=== PATIENT | female | born 1945 | race Caucasian/White ===

== ENCOUNTER 2016-05-11 14:57 | Emergency (ER) | payer OTHER ==
[~2016-05-11] VITALS: Ht 160 cm; Wt 79.0 kg
[~2016-05-11 14:57] MED LIST: IBUP1CAP9 PO
[2016-05-11 15:04] VITALS: TEMP 36.9; Ht 160 cm; Wt 79.0 kg
--- NOTE | 2016-05-11 16:40 | EMERGENCY ROOM VISIT NOTE ---
History Report prepared by Devang: Eddie Jacobs Under the Supervision of: Dr. Eddie Jain M.D. First contact with patient: 16:29 Chief Complaint: FLANK PAIN Stated Complaint: FLANK PAIN History of Present Illness The patient is a 70 year old female who presents to the Emergency Room with complaints of persistent right flank pain beginning 3 days ago. She notes she was diagnosed with polymyalgia 3 months ago, and that the most affected areas are her shoulders, hands, hips, and quadriceps. She states her pain is worse with movement. The patient denies any trauma or injury, fever or chills, numbness or weakness, or any urinary symptoms. She does not have a history of kidney stones. The patient reports a past history of bladder and breast cancer. She has taken 15 mg of prednisone for her pain. She is not on any blood thinners. She notes the only medication she takes other than prednisone are per requirement for breast cancer protocol. No Fall or trauma. No chest pain or shortness of breath. Source of History: patient Onset: 3 days ago Position: other (right hip) Quality: other (hip pain) Timing: other (persistent) Modifying Factors (Worsening): movement Associated Symptoms: No chills, No fevers, No numbness, No urinary symptoms , No weakness Review of Systems See HPI for pertinent positives & negatives. A total of 10 systems reviewed and were otherwise negative. Past Medical & Surgical Medical Problems: (1) Acute bronchitis (2) Asthma (3) Chest discomfort (4) Chronic osteoarthritis (5) Diab Gosia Wo Compl, Type Ii Or Unspec Type, Not Uncntrld (6) Diaphragmatic Hernia (7) Diverticulosis Colon (W/O Ment Of Hemorrhage) (8) Emphysema Nec (9) Loose body of right knee (10) Mal Khoi Bladder Neck (11) Mal Khoi Breast Up-Outer (12) Obesity, Nos (13) Pulmonary emphysema (14) Right hand pain (15) Right knee pain (16) Tachycardia Nos Old medical records were reviewed. Nurse's notes were reviewed and I agree with. Family History Patient reports no known family medical history. Social History Smoking Status: Current Every Day Smoker Alcohol Use: none Drug Use: none Marital Status: single Occupation Status: employed Current/Historical Medications Scheduled Anastrozole (Arimidex), 1 MG PO DAILY Metformin Hcl (Glucophage), 850 MG PO BID Prednisone (Prednisone), 5 MG PO DAILY Prednisone (Prednisone), 10 MG PO DAILY Allergies Coded Allergies: Paclitaxel (Verified Allergy, Severe, "taxanes" cause diff breathing, rash , elevated bp, 05/11/16) Polyoxyethylated [place] Oil (Verified Allergy, Severe, "taxanes" cause diff breathing, rash, elevated bp, 05/11/16) Sulfa Drugs (Verified Allergy, Mild, 05/11/16) Celecoxib (Verified Allergy, Unknown, HIVES, 05/11/16) Nitrofurantoin (Verified Allergy, Unknown, CHEST PAIN AND SOB, 05/11/16) Phenazopyridine (Verified Allergy, Unknown, UNKNOWN, 05/11/16) ON PREOP ORDER Opioid Analgesics (Verified Adverse Reaction, Unknown, CHILLS, NAUSEA, 04/15) Uncoded Allergies: CONTRAST MEDIA (Allergy, Mild, HIVES/ITCHING, 06/03/14) Physical Exam Vital Signs Date Time Temp Pulse Resp B/P Pulse Ox O2 Delivery O2 Flow Rate FiO2 05/11/16 17:15 104 18 122/65 94 Room Air 05/11/16 15:04 36.9 114 18 133/74 92 Room Air Physical Exam General: Well developed well nourished in no acute distress, breathing comfortably on room air. Normal speech. Non-ill appearing, older female. HEENT: Normal cephalic atraumatic. Pupils are equal round and reactive to light. Extraocular movements are intact. Oropharynx is pink with moist mucous membranes. No swelling of the mouth lips or tongue. Neck: Supple with a midline trachea. No meningeal signs or stiffness, no JVD or bruits. No Stridor. Chest: Clear to auscultation bilaterally. No wheezes or rhonchi. No increased work of breathing. Heart: regular rate and rhythm. Abdomen: Soft nontender, nondistended without rebound guarding or rigidity. Extremities: No cyanosis clubbing or edema. No calf tenderness or assymetry Spine/Back. Non tender to palpation. No CVA tenderness Skin: Good turgor without rashes. Neurologic exam: Cranial nerves two through 12 are intact. Motor and sensation are intact and symmetrical throughout. Medical Decision & Procedures ER Provider Diagnostic Interpretation: CT results as stated below per my review and radiologist interpretation: CT SCAN OF THE ABDOMEN AND PELVIS WITHOUT CONTRAST FINDINGS: Lower chest: The heart is normal in size and configuration, without pericardial effusion. The lung bases and pleural spaces are clear. Liver: The unenhanced liver is normal in size, contour, and attenuation. There is mild intrahepatic biliary ductal dilatation.. Gallbladder: Not visualized Spleen: Normal in size and attenuation. Pancreas: Unremarkable. Adrenal glands: Unremarkable. Kidneys: No renal, ureteral, or bladder calculi are visualized. Bowel: There are no transition zones indicate bowel obstruction. There is moderate diverticulosis. No acute peridiverticular inflammatory changes are visualized. There is small fat-containing umbilical hernia. The appendix is reportedly surgically absent Peritoneum: There is no intraperitoneal free air or abdominal ascites. Vasculature: The abdominal aorta is normal in course and caliber. Adenopathy: None. Pelvic viscera: There is mild pelvic floor relaxation. No pathologic adnexal masses are visualized. Skeletal structures: No destructive osseous lesions are seen. IMPRESSION: 1. No renal, ureteral, or bladder calculi identified 2. No evidence of bowel obstruction. No evidence of free air 3. Diverticulosis. No evidence of acute diverticulitis. 4. Surgically absent appendix and gallbladder Electronically signed by: Florentino Washington M.D. 05/11/2016 5:15 PM Dictated Date/Time: 05/11/2016 5:10 PM Laboratory Results 05/11/16 16:30 Red Blood Count 5.04, Mean Corpuscular Volume 92.1, Mean Corpuscular Hemoglobin 31.0, Mean Corpuscular Hemoglobin Concent 33.6, Mean Platelet Volume 9.4, Neutrophils (%) (Auto) 80.7, Lymphocytes (%) (Auto) 11.5, Monocytes (%) (Auto) 6.5, Eosinophils (%) (Auto) 0.5, Basophils (%) (Auto) 0.2, Neutrophils # (Auto) 12.46, Lymphocytes # (Auto) 1.78, Monocytes # (Auto) 1.01, Eosinophils # (Auto) 0.08, Basophils # (Auto) 0.03 05/11/16 16:30 Test 05/11/16 00:00 05/11/16 16:30 Urine Color YELLOW Urine Appearance CLEAR (CLEAR) Urine pH 5.5 (4.5-7.5) Urine Specific [place] 1.020 (1.000-1.030) Urine Protein NEG (NEG) Urine Glucose (UA) NEG (NEG) Urine Ketones TRACE (NEG) Urine Occult Blood NEG (NEG) Urine Nitrite NEG (NEG) Urine Bilirubin NEG (NEG) Urine Urobilinogen NEG (NEG) Urine Leukocyte Esterase NEG (NEG) White Blood Count 15.46 K/uL (4.8-10.8) Red Blood Count 5.04 M/uL (4.2-5.4) Hemoglobin 15.6 g/dL (12.0-16.0) Hematocrit 46.4 % (37-47) Mean Corpuscular Volume 92.1 fL (80-100) Mean Corpuscular Hemoglobin 31.0 pg (25-34) Mean Corpuscular Hemoglobin Concent 33.6 g/dl (32-36) Platelet Count 361 K/uL (130-400) Mean Platelet Volume 9.4 fL (7.4-10.4) Neutrophils (%) (Auto) 80.7 % Lymphocytes (%) (Auto) 11.5 % Monocytes (%) (Auto) 6.5 % Eosinophils (%) (Auto) 0.5 % Basophils (%) (Auto) 0.2 % Neutrophils # (Auto) 12.46 K/uL (1.4-6.5) Lymphocytes # (Auto) 1.78 K/uL (1.2-3.4) Monocytes # (Auto) 1.01 K/uL (0.11-0.59) Eosinophils # (Auto) 0.08 K/uL (0-0.5) Basophils # (Auto) 0.03 K/uL (0-0.2) RDW Standard Deviation 48.7 fL (36.4-46.3) RDW Coefficient of Variation 14.4 % (11.5-14.5) Immature Granulocyte % (Auto) 0.6 % Immature Granulocyte # (Auto) 0.10 K/uL (0.00-0.02) Anion Gap 11.0 mmol/L (3-11) Est Creatinine Clear Calc Drug Dose 63.2 ml/min Estimated GFR () 85.4 Estimated GFR (Non- 73.7 BUN/Creatinine Ratio 28.7 (10-20) Calcium Level 9.6 mg/dl (8.5-10.1) Total Bilirubin 0.4 mg/dl (0.2-1) Direct Bilirubin 0.1 mg/dl (0-0.2) Aspartate Amino Transf (AST/SGOT) 9 U/L (15-37) Alanine Aminotransferase (ALT/SGPT) 30 U/L (12-78) Alkaline Phosphatase 74 U/L (45-117) Total Protein 7.5 gm/dl (6.4-8.2) Albumin 3.7 gm/dl (3.4-5.0) Lipase 123 U/L (73-393) Laboratory studies as stated above per my review. ED Course 1630: Past medical records reviewed. The patient was evaluated in room B10, and a complete history and physical examination were performed. 174: Upon reevaluation, the patient is hemodynamically stable. I discussed the results and treatment plan with the patient. She verbalized agreement of the treatment plan. The patient was discharged home. Medical Decision Differentials include PMR, musculoskeletal pain, kidney stones, aneurism, hematoma, and electrolyte or metabolic abnormality. The patient comes in as described above she has pain in her lower back towards the right along the bony pelvic rim. She has a normal neurologic exam. She has had no fever or chills. She looks well on exam she was recently diagnosed with PMR. IV access was established and blood work was obtained. She has nothing to suggest infection or sepsis. She's no significant electrolyte or metabolic abnormalities. She has nothing to suggest UTI. I did a CAT scan without contrast and she has no acute findings seen. There is no bony abnormalities or obstructive uropathy. This seems he musculoskeletal. There is no evidence suggest aneurysm. I think that she should continue her prednisone and may be related to PMR. She can use Tylenol in the over-the- counter dosages but do not exceed 650 mg every 6 hours and do not take with other medications and contain Tylenol/acetaminophen. She was happy with the plan and will be discharged home. I encouraged to follow-up with her regular doctor in 1-2 days for recheck. Impression Primary Impression: Right flank pain Additional Impression: PMR (polymyalgia rheumatica) Scribe Attestation The scribe's documentation has been prepared under my direction and personally reviewed by me in its entirety. I confirm that the note above accurately reflects all work, treatment, procedures, and medical decision making performed by me. Departure Information Dispostion Home / Self-Care Referrals Chandan Bro M.D. (PCP) Patient Instructions My [facility] Additional Instructions Rest REturn if: worsening of symptoms, increasing pain, fever, bowel or bladder problems, any new problems or concerns May use tyelenol (Acetaminophen) a maximum of 650 mg every 6 hours as needed DO NOT TAKE WITH ANY OTHER MEDICATIONS THAT HAVE ACETAMINOPHERN(TYLENOL) IN IT fOLLOW-UP TIH YOUR DOCOTR ON sunday FOR RECHECK. Return to the ER over the weekend if symnptoms worsen Problem Qualifiers
[2016-05-11 16:51] LABS: BASO % 0.2 %; BASO ABS # 0.03 K/uL (0-0.2); COMPLETE YES; EOS % 0.5 %; HEMATOCRIT 46.4 % (37-47); IG% 0.6 %; LYMPH % 11.5 %; LYMPH ABS # 1.78 K/uL (1.2-3.4); MEAN CELL VOLUME 92.1 fL (80-100); MEAN CORPUSCULAR HGB CONC 33.6 g/dl (32-36); MEAN PLATELET VOLUME 9.4 fL (7.4-10.4); MONO % 6.5 %; NEUT % 80.7 %; PLATELET COUNT 361 K/uL (130-400); RED BLOOD COUNT 5.04 M/uL (4.2-5.4); WHITE BLOOD COUNT 15.46 K/uL (4.8-10.8)
[2016-05-11 17:03] LABS: URINE APPEARANCE CLEAR (CLEAR); URINE BILIRUBIN NEG (NEG); URINE COLOR YELLOW; URINE NITRITE NEG (NEG); URINE PH 5.5 (4.5-7.5); UROBILINOGEN NEG (NEG)
[2016-05-11 17:06] LABS: BUN/CREATININE RATIO 28.7 (10-20); CALCIUM 9.6 mg/dl (8.5-10.1); CREATININE 0.8 mg/dl (0.60-1.20); POTASSIUM 4.6 mmol/L (3.5-5.1)
[2016-05-11 17:09] LABS: MANUAL MICROSCOPIC REQUIRED? NO; REVIEW REQ? NO
[2016-05-11 17:15] VITALS: BP 122/65; PULSE 104; O2SAT 94
--- NOTE | 2016-05-11 17:17 | DIAGNOSTIC IMAGING REPORT ---
CT SCAN OF THE ABDOMEN AND PELVIS WITHOUT CONTRAST CLINICAL HISTORY: Flank pain. Suspected calculus. COMPARISON STUDY: 06/09/2014 TECHNIQUE: CT scan of the abdomen and pelvis was performed from the lung bases to the proximal femurs. Images are reviewed in the axial, sagittal, and coronal planes. IV contrast was not administered for this examination. CT DOSE: 1051.92 mGy.cm FINDINGS: Lower chest: The heart is normal in size and configuration, without pericardial effusion. The lung bases and pleural spaces are clear. Liver: The unenhanced liver is normal in size, contour, and attenuation. There is mild intrahepatic biliary ductal dilatation.. Gallbladder: Not visualized Spleen: Normal in size and attenuation. Pancreas: Unremarkable. Adrenal glands: Unremarkable. Kidneys: No renal, ureteral, or bladder calculi are visualized. Bowel: There are no transition zones indicate bowel obstruction. There is moderate diverticulosis. No acute peridiverticular inflammatory changes are visualized. There is small fat-containing umbilical hernia. The appendix is reportedly surgically absent Peritoneum: There is no intraperitoneal free air or abdominal ascites. Vasculature: The abdominal aorta is normal in course and caliber. Adenopathy: None. Pelvic viscera: There is mild pelvic floor relaxation. No pathologic adnexal masses are visualized. Skeletal structures: No destructive osseous lesions are seen. IMPRESSION: 1. No renal, ureteral, or bladder calculi identified 2. No evidence of bowel obstruction. No evidence of free air 3. Diverticulosis. No evidence of acute diverticulitis. 4. Surgically absent appendix and gallbladder Electronically signed by: Florentino Washington M.D. 05/11/2016 5:15 PM Dictated Date/Time: 05/11/2016 5:10 PM
[2016-05-11] MEDS ORDERED: PRED10TA PO (17:45)
[2016-08-29] MEDS ORDERED: ANAS1TAB19 PO (10:20)
[2016-08-29] MEDS ORDERED: METF850T PO (13:35)
[2016-08-29] MEDS ORDERED: PRED-301 PO (17:45)
== END 2016-05-11 17:50 | disposition home or self-care (01) ==
LOC: C.EDB 14:57
DX: R10.9 Unspecified abdominal pain (principal); M35.3 Polymyalgia rheumatica; Z85.3 Personal history of malignant neoplasm of breast; Z85.51 Personal history of malignant neoplasm of bladder; J45.909 Unspecified asthma, uncomplicated; E11.9 Type 2 diabetes mellitus without complications; E66.9 Obesity, unspecified; F17.200 Nicotine dependence, unspecified, uncomplicated; Z88.2 Allergy status to sulfonamides

== ENCOUNTER → 2016-05-25 | Outpatient (CLI) | payer OTHER ==
[~2016-05-25] MED LIST changes: +ANAS1TAB19 PO; +IBUP-103 PO; -IBUP1CAP9 PO; +METF850T PO; +PRD/1 PO; +PRED-301 PO; +PRED10TA PO; +PRLSR20 PO; +TRAM-10 PO
== END | disposition home or self-care (01) ==
LOC: C.LAB 13:35
PROVIDERS: ATTEND Internal Medicine
DX: M35.3 Polymyalgia rheumatica (principal)

== ENCOUNTER 2016-08-26 19:27 | Emergency (ER) | payer OTHER ==
[~2016-08-26] VITALS: Ht 160 cm; Wt 82.8 kg
[~2016-08-26 19:27] MED LIST changes: -ANAS1TAB19 PO; -IBUP-103 PO; -METF850T PO; -PRD/1 PO; -PRED-301 PO; -PRLSR20 PO; -TRAM-10 PO
[2016-08-26 19:34] VITALS: TEMP 36.7; Ht 160 cm; Wt 82.8 kg
--- NOTE | 2016-08-26 20:38 | EMERGENCY ROOM VISIT NOTE ---
History Report prepared by Devang: Hallie Moore Under the Supervision of: Dr. Zaki Alba M.D. 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 The patient rates her discomfort as a 7/10 in severity. She states that she tripped over the curb because the tip of her left toe hit the curb and it caused her to fall. She states that she fell into the grass, but she is unsure of exactly how she fell and what exactly hit the ground. However, the patient states that she did not hit her head or experience LOC. The patient states that she is currently experiencing midsternal chest pain that radiates into her left lateral chest and is worse with certain movements and deep breathing. She states that the pain feels similar to when she broke her sternum in the past, but it does not feel quite as severe. She denies abdominal pain along with any other injuries. The patient is not on any blood thinners. 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 A total of 10 systems reviewed and were otherwise negative. Past Medical & Surgical Medical Problems: (1) Acute bronchitis (2) Asthma (3) Chest discomfort (4) Chronic osteoarthritis (5) Diab Gosia Wo Compl, Type Ii Or Unspec Type, Not Uncntrld (6) Diaphragmatic Hernia (7) Diverticulosis Colon (W/O Ment Of Hemorrhage) (8) Emphysema Nec (9) Loose body of right knee (10) Mal Khoi Bladder Neck (11) Mal Khoi Breast Up-Outer (12) Obesity, Nos (13) Pulmonary emphysema (14) Right hand pain (15) Right knee pain (16) Tachycardia Nos Family History Patient reports no known family medical history. Social History Smoking Status: Former Smoker Alcohol Use: none Drug Use: none Marital Status: single Occupation Status: employed Current/Historical Medications Scheduled Anastrozole (Arimidex), 1 MG PO DAILY Metformin Hcl (Glucophage), 850 MG PO BID Prednisone (Prednisone), 5 MG PO DAILY Prednisone (Prednisone), 10 MG PO DAILY Allergies Coded Allergies: Paclitaxel (Verified Allergy, Severe, "taxanes" cause diff breathing, rash , elevated bp, 05/11/16) Polyoxyethylated [place] Oil (Verified Allergy, Severe, "taxanes" cause diff breathing, rash, elevated bp, 05/11/16) Sulfa Drugs (Verified Allergy, Mild, 05/11/16) Celecoxib (Verified Allergy, Unknown, HIVES, 05/11/16) Nitrofurantoin (Verified Allergy, Unknown, CHEST PAIN AND SOB, 05/11/16) Phenazopyridine (Verified Allergy, Unknown, UNKNOWN, 05/11/16) ON PREOP ORDER Opioid Analgesics (Verified Adverse Reaction, Unknown, CHILLS, NAUSEA, 04/15) Uncoded Allergies: CONTRAST MEDIA (Allergy, Mild, HIVES/ITCHING, 06/03/14) Physical Exam Vital Signs Date Time Temp Pulse Resp B/P Pulse Ox O2 Delivery O2 Flow Rate FiO2 08/26/16 21:11 84 16 142/80 97 08/26/16 19:34 36.7 105 20 145/73 94 Room Air Physical Exam GENERAL: Patient is in no acute distress. HEENT: No acute trauma, normocephalic atraumatic, mucous membranes moist, no nasal congestion, no scleral icterus. NECK: No stridor, no adenopathy, no meningismus, trachea is midline. LUNGS: Clear to auscultation bilaterally, no wheeze, no rhonchi, breath sounds equal. HEART: Mildly tachycardic with regular rate and rhythm, no murmurs. CHEST: Tender to the left inferior sternum just slightly off to the left, no crepitus, no contusion, no pain with lateral rib compression. ABDOMEN: Soft, nontender, bowel sounds positive, no hernias, no peritonitis. EXTREMITIES: No cyanosis or edema, full range of motion of all the joints without pain or difficulty, no signs for acute trauma. NEUROLOGIC: Oriented x 3, no acute motor or sensory deficits, no focal weakness. SKIN: No rash, no jaundice, no diaphoresis. Medical Decision & Procedures ER Provider Diagnostic Interpretation: X-ray results as stated below per interpretation by me and the radiologist: CHEST 2 VIEWS ROUTINE FINDINGS: Stable calcified granuloma within the left upper lobe. Subclavian Port-A-Cath terminates in the SVC. No evidence for pulmonary edema. The heart is normal in size. Mitral annulus calcifications. Linear density within the lingula favors subsegmental atelectasis or scarring. IMPRESSION: No acute process. Linear density within the lingula favors subsegmental atelectasis or scarring. Electronically signed by: Sabino Chua M.D. 08/26/2016 8:50 PM Dictated Date/Time: 08/26/2016 8:48 PM STERNUM MIN 2 VIEWS FINDINGS: No fractures within the sternum. Presternal soft tissues are unremarkable. No suspicious lytic or blastic osseous lesions within the sternum. IMPRESSION: No fractures within the sternum. Electronically signed by: Sabino Chua M.D. 08/26/2016 8:44 PM Dictated Date/Time: 08/26/2016 8:42 PM ECG Indication: chest pain Rate (beats per minute): 100 Rhythm: sinus rhythm Findings: PAC, RBBB (incomplete), no acute ischemic change Comparison ECG Date: 12/20/2014 Change: no significant change ED Course 1944: The patient was evaluated in room B12. A complete history and physical exam was performed. 2109: Reevaluated the patient. Discussed results and discharge instructions: she verbalized understanding and agreement. The patient is ready for discharge. Medical Decision Differential diagnoses considered include sternal contusion or fracture, rib contusion or fracture, muscle strain, pneumothorax, dysrhythmia. The patient presents after falling. She has some lower left sternal pain. She denied any injury to her head or neck. No wrist or lower extremity pain. The pain was not present when she was still but noted with any movement. She did not want any pain medication while in the emergency room. Films of the chest and sternum were done, no fractures to the sternum or the ribs were noted. There is no pneumothorax or pulmonary contusion. On exam, the patient had no abdominal tenderness. Patient has contused her chest wall, she was reassured. She is being discharged home. Impression Primary Impression: Chest wall contusion Additional Impression: Fall Scribe Attestation The scribe's documentation has been prepared under my direction and personally reviewed by me in its entirety. I confirm that the note above accurately reflects all work, treatment, procedures, and medical decision making performed by me. Departure Information Dispostion Home / Self-Care Referrals Chandan Bro M.D. (PCP) Forms HOME CARE DOCUMENTATION FORM, IMPORTANT VISIT INFORMATION Patient Instructions My [facility] Additional Instructions ice to the sore areas rest continue pain meds as before at home may add tylenol for pain no fractures today by film Problem Qualifiers Primary Impression: Chest wall contusion Encounter type: initial encounter Laterality: left Qualified Codes: S20.212A - Contusion of left front wall of thorax, initial encounter Additional Impression: Fall Encounter type: initial encounter Qualified Codes: W19.XXXA - Unspecified fall, initial encounter
--- NOTE | 2016-08-26 20:45 | DIAGNOSTIC IMAGING REPORT ---
STERNUM MIN 2 VIEWS CLINICAL HISTORY: fall, sternal pain COMPARISON STUDY: PET CT 11/18/2012. FINDINGS: No fractures within the sternum. Presternal soft tissues are unremarkable. No suspicious lytic or blastic osseous lesions within the sternum. IMPRESSION: No fractures within the sternum. Electronically signed by: Sabino Chua M.D. 08/26/2016 8:44 PM Dictated Date/Time: 08/26/2016 8:42 PM
--- NOTE | 2016-08-26 20:52 | DIAGNOSTIC IMAGING REPORT ---
CHEST 2 VIEWS ROUTINE HISTORY: fall, left anterior chest pain COMPARISON: Chest 12/20/2014. FINDINGS: Stable calcified granuloma within the left upper lobe. Subclavian Port-A-Cath terminates in the SVC. No evidence for pulmonary edema. The heart is normal in size. Mitral annulus calcifications. Linear density within the lingula favors subsegmental atelectasis or scarring. IMPRESSION: No acute process. Linear density within the lingula favors subsegmental atelectasis or scarring. Electronically signed by: Sabino Chua M.D. 08/26/2016 8:50 PM Dictated Date/Time: 08/26/2016 8:48 PM
[2016-08-26 21:11] VITALS: BP 142/80; PULSE 84; O2SAT 97
[2016-08-29] MEDS ORDERED: ANAS1TAB19 PO (10:20)
[2016-08-29] MEDS ORDERED: METF850T PO (13:35)
[2016-08-29] MEDS ORDERED: PRED-301 PO (17:45)
== END 2016-08-26 21:12 | disposition home or self-care (01) ==
LOC: C.EDB 19:28
DX: S20.212A Contusion of left front wall of thorax, initial encounter (principal); W19.XXXA Unspecified fall, initial encounter; J45.909 Unspecified asthma, uncomplicated; E11.9 Type 2 diabetes mellitus without complications; E66.9 Obesity, unspecified; Z87.891 Personal history of nicotine dependence

== ENCOUNTER 2016-08-29 20:29 | Emergency (ER) | payer OTHER ==
[~2016-08-29] VITALS: Ht 160 cm; Wt 83.8 kg
[~2016-08-29 20:29] MED LIST changes: +ANAS1TAB19 PO; +METF850T PO; +PRED-301 PO
[2016-08-29 20:35] VITALS: TEMP 36.8; Ht 160 cm; Wt 83.8 kg
[2016-08-29] MEDS ORDERED: PRD/1 PO (21:02)
[2016-08-29] MEDS ORDERED: PRLSR20 PO (21:02)
[2016-08-29] MEDS ORDERED: IBUP-103 PO (21:03)
--- NOTE | 2016-08-29 22:29 | DIAGNOSTIC IMAGING REPORT ---
CT OF THE CHEST WITHOUT IV CONTRAST CLINICAL HISTORY: Chest pain following fall. COMPARISON STUDY: Chest CT October 16, 2012 and chest radiograph August 26, 2016. CT DOSE: 294.11 mGy.cm TECHNIQUE: Axial images of the chest were obtained without IV contrast. Images were reviewed in the axial, sagittal, and coronal planes. IV contrast was not administered for this examination. FINDINGS: There is no pneumothorax or pleural effusion. There is a calcified granuloma within the left upper lobe. Lingular opacity suggest atelectasis. There is no pulmonary contusion. No acute thoracic spine fracture is identified. A left sided [id number] is in place. There are acute to subacute nondisplaced fractures of the anterior left third and fourth ribs. No displaced rib fractures are identified on this exam. IMPRESSION: Nondisplaced fractures of the anterior left third and fourth ribs which are likely acute to subacute. No pneumothorax. Electronically signed by: Sanchez Begum M.D. 08/29/2016 10:22 PM Dictated Date/Time: 08/29/2016 10:12 PM
[2016-08-29] MEDS ORDERED: TRAM-10 PO (23:07)
--- NOTE | 2016-08-29 23:08 | EMERGENCY ROOM VISIT NOTE ---
History Report prepared by Devang: Ha Castellanos Under the Supervision of: Dr. Vi Engle M.D. First contact with patient: 21:41 Chief Complaint: CHEST PAIN Stated Complaint: CHEST PAIN History of Present Illness The patient is a 70 year old female who presents to the Emergency Room with complaints of constant left chest pain for the past few days. The patient states that she fell the other day, and she fell with her right hand across her chest in a fist, and she landed on it. The patient states that the pain has been radiating around from just the point of impact. She additionally states that she is having some shortness of breath secondary to the pain in her chest. The patient states that she is a former smoker, and she has a history of breast and bladder cancer. Source of History: patient Onset: few days ago Position: chest (left) Timing: constant Modifying Factors (Worsening): breathing Associated Symptoms: + SOB Review of Systems See HPI for pertinent positives & negatives. A total of 10 systems reviewed and were otherwise negative. Past Medical & Surgical Medical Problems: (1) Acute bronchitis (2) Asthma (3) Chest discomfort (4) Chronic osteoarthritis (5) Diab Gosia Wo Compl, Type Ii Or Unspec Type, Not Uncntrld (6) Diaphragmatic Hernia (7) Diverticulosis Colon (W/O Ment Of Hemorrhage) (8) Emphysema Nec (9) Loose body of right knee (10) Mal Khoi Bladder Neck (11) Mal Khoi Breast Up-Outer (12) Obesity, Nos (13) Pulmonary emphysema (14) Right hand pain (15) Right knee pain (16) Tachycardia Nos Family History Patient reports no known family medical history. Social History Smoking Status: Former Smoker Alcohol Use: none Drug Use: none Marital Status: single Occupation Status: employed Current/Historical Medications Scheduled Anastrozole (Arimidex), 1 MG PO DAILY Ibuprofen Tab (Advil), 600 MG PO BID Metformin Hcl (Glucophage), 850 MG PO BID Omeprazole (Prilosec), 20 MG PO DAILY Prednisone (Prednisone), 5 MG PO DAILY Prednisone (Prednisone), 4 MG PO DAILY Scheduled PRN Tramadol (Ultram), 1-2 TABS PO Q6 PRN for Pain Allergies Coded Allergies: Paclitaxel (Verified Allergy, Severe, "taxanes" cause diff breathing, rash , elevated bp, 05/11/16) Polyoxyethylated [place] Oil (Verified Allergy, Severe, "taxanes" cause diff breathing, rash, elevated bp, 05/11/16) Sulfa Drugs (Verified Allergy, Mild, 05/11/16) Celecoxib (Verified Allergy, Unknown, HIVES, 05/11/16) Nitrofurantoin (Verified Allergy, Unknown, CHEST PAIN AND SOB, 05/11/16) Phenazopyridine (Verified Allergy, Unknown, UNKNOWN, 05/11/16) ON PREOP ORDER Opioid Analgesics (Verified Adverse Reaction, Unknown, CHILLS, NAUSEA, 04/15) Uncoded Allergies: CONTRAST MEDIA (Allergy, Mild, HIVES/ITCHING, 06/03/14) Physical Exam Vital Signs Date Time Temp Pulse Resp B/P Pulse Ox O2 Delivery O2 Flow Rate FiO2 08/29/16 23:17 92 20 109/73 95 08/29/16 22:27 92 109/73 95 Room Air 08/29/16 20:48 105 08/29/16 20:35 36.8 111 20 183/87 96 Room Air Physical Exam Vital signs reviewed. General: Well-appearing female, in no significant distress. HEENT: No scleral icterus, PERRLA, neck supple. Atraumatic. Cardiovascular: Regular rate and rhythm, no extra sounds. Pulmonary: Clear to auscultation bilaterally, equal breath sounds bilaterally, normal work of breathing. Chest: Tenderness to palpation over the left anterior chest and left midaxillary line. Abdomen: Soft, nontender, nondistended, positive bowel sounds. Musculoskeletal: Atraumatic, no peripheral edema. Neurologic: Patient awake alert and oriented x 3, full strength in all 4 extremities. Cranial nerves 2 through 12 grossly intact. Skin: Warm, dry, no rash Medical Decision & Procedures ER Provider Diagnostic Interpretation: Radiology results as stated below per my review and radiologist interpretation: CT OF THE CHEST WITHOUT IV CONTRAST CLINICAL HISTORY: Chest pain following fall. COMPARISON STUDY: Chest CT October 16, 2012 and chest radiograph August 26, 2016. CT DOSE: 294.11 mGy.cm TECHNIQUE: Axial images of the chest were obtained without IV contrast. Images were reviewed in the axial, sagittal, and coronal planes. IV contrast was not administered for this examination. FINDINGS: There is no pneumothorax or pleural effusion. There is a calcified granuloma within the left upper lobe. Lingular opacity suggest atelectasis. There is no pulmonary contusion. No acute thoracic spine fracture is identified. A left sided [id number] is in place. There are acute to subacute nondisplaced fractures of the anterior left third and fourth ribs. No displaced rib fractures are identified on this exam. IMPRESSION: Nondisplaced fractures of the anterior left third and fourth ribs which are likely acute to subacute. No pneumothorax. Electronically signed by: Sanchez Begum M.D. 08/29/2016 10:22 PM Dictated Date/Time: 08/29/2016 10:12 PM Medications Administered Medications (Trade) Dose Ordered Sig/Mildred Route Start Time Stop Time Status Last Admin Dose Admin Tramadol HCl (Ultram Home Pack) 1 homepack UD ONCE PO 08/29/16 23:15 08/29/16 23:16 DC 08/29/16 23:15 1 HOMEPACK ECG Indication: chest pain Rate (beats per minute): 109 Rhythm: sinus tachycardia Findings: LBBB, no acute ischemic change, left axis deviation, no ectopy ED Course 214: Past medical records reviewed. The patient was evaluated in room A12. A complete history and physical examination was performed. 2235: I reevaluated the patient, and she was resting 2305: Upon reevaluation, the patient appeared to have improvement of her symptoms. I discussed findings with her. She verbalized agreement of the treatment plan. She was discharged home. 2315: Tramadol HCl 1 homepack PO Medical Decision Differentials include: bony contusion, muscular spasm, pneumothorax, pneumonia , rib fracture This pt was evaluated and appeared to be in no distress. PE is significant for tenderness along the left ribs. Records from previous were reviewed. A CT of the chest was performed and is significant for L rib fractures. Pt was advised of the findings. She has an incentive spirometer. She was given an ultram HP and Rx. Pt will f/u with her PCP this week and return to the ED for worsening of symptoms or any medical concerns. Impression Primary Impression: Left rib fracture Scribe Attestation The scribe's documentation has been prepared under my direction and personally reviewed by me in its entirety. I confirm that the note above accurately reflects all work, treatment, procedures, and medical decision making performed by me. Departure Information Dispostion Home / Self-Care Prescriptions Tramadol (Ultram) 50 Mg Tab 1-2 TABS PO Q6 Y for Pain, #20 TAB Prov: Vi Engle M.D. 08/29/16 Referrals Pro,Chandan Cassidy M.D. (PCP) Forms HOME CARE DOCUMENTATION FORM, IMPORTANT VISIT INFORMATION Patient Instructions My [facility] Additional Instructions Diagnosis: Left-sided rib fractures Ultram 1-2 tablets every 6 hours as needed for pain. Use your incentive spirometer several times every hour while awake for the next few days. Follow-up with your physician this week for reevaluation. Return to the ER for worsening of symptoms or any medical concerns.
[2016-08-29] MEDS ORDERED: TRAMADOL HCL 50 MG HOME PACK PO ONE (23:15)
[2016-08-29 23:17] VITALS: BP 109/73; PULSE 92; O2SAT 95
== END 2016-08-29 23:18 | disposition home or self-care (01) ==
LOC: C.EDB 20:30 → C.EDA 23:18
DX: S22.32XA Fracture of one rib, left side, initial encounter for closed fracture (principal); I44.7 Left bundle-branch block, unspecified; R06.02 Shortness of breath; E11.9 Type 2 diabetes mellitus without complications; J45.909 Unspecified asthma, uncomplicated; Z79.84 Long term (current) use of oral hypoglycemic drugs; Z79.899 Other long term (current) drug therapy; Z85.51 Personal history of malignant neoplasm of bladder; Z85.3 Personal history of malignant neoplasm of breast; Z87.09 Personal history of other diseases of the respiratory system; Z87.891 Personal history of nicotine dependence; W19.XXXA Unspecified fall, initial encounter

== ENCOUNTER → 2016-12-15 | Outpatient (CLI) | payer OTHER ==
[~2016-12-15] MED LIST changes: +IBUP-103 PO; +PRD/1 PO; -PRED10TA PO; +PRLSR20 PO; +TRAM-10 PO
[2016-12-15 16:35] LABS: HEMATOCRIT 44.7 % (37-47); MEAN CELL VOLUME 96.5 fL (80-100); MEAN CORPUSCULAR HGB CONC 33.1 g/dl (32-36); MEAN PLATELET VOLUME 10.3 fL (7.4-10.4); PLATELET COUNT 324 K/uL (130-400); RED BLOOD COUNT 4.63 M/uL (4.2-5.4); WHITE BLOOD COUNT 8.97 K/uL (4.8-10.8)
[2016-12-15 16:49] LABS: ALT/SGPT 22 U/L (12-78); AST/SGOT 13 U/L (15-37); BLOOD UREA NITROGEN 17 mg/dl (7-18); BUN/CREATININE RATIO 30.2 (10-20); CALCIUM 9.3 mg/dl (8.5-10.1); CARBON DIOXIDE 27 mmol/L (21-32); CHLORIDE 109 mmol/L (98-107); CREATININE 0.57 mg/dl (0.60-1.20); GLUCOSE 80 mg/dl (70-99); POTASSIUM 3.9 mmol/L (3.5-5.1); SODIUM 139 mmol/L (136-145)
[2016-12-15 16:52] LABS: ALKALINE PHOSPHATASE 50 U/L (45-117)
== END | disposition home or self-care (01) ==
LOC: C.LABBC 12:26
PROVIDERS: ATTEND Internal Medicine
DX: M35.3 Polymyalgia rheumatica (principal); R51 Headache

== ENCOUNTER → 2016-12-19 | Outpatient (CLI) | payer OTHER ==
--- NOTE | 2016-12-19 13:49 | DIAGNOSTIC IMAGING REPORT ---
CERVICAL SPINE 7 VIEWS CLINICAL HISTORY: Neck pain. Headache. FINDINGS: AP, lateral, bilateral oblique, flexion, and extension views of the cervical spine are obtained. No prior studies are for comparison at the time of dictation. The skeletal structures are osteopenic. There is no radiographic evidence of fracture or subluxation. The odontoid process and lateral masses appear intact on the open-mouth view. Vertebral body height and alignment are maintained. There is no evidence of bony subluxation on the flexion/extension views. The atlantodental articulation is maintained noting productive degenerative change. The spinolaminar line is preserved. There is only minimal degenerative disc space narrowing noted. The neural foramina appear widely patent on the oblique views. Minimal facet arthropathy is observed. The spinous processes are intact. The prevertebral soft tissues are within normal limits. A calcific granuloma is seen in the left upper lobe. The partially imaged upper lobe lung parenchyma is otherwise clear. A central venous infusion port catheter is noted and there is atherosclerotic calcification of the thoracic aorta. The patient is edentulous. IMPRESSION: 1. No acute bony abnormality is seen involving the cervical spine. 2. Minimal spondylotic change as above. 3. No subluxation is seen on the flexion/extension views. Dictated: 12/19/2016 12:52 PM Transcribed: 12/19/2016 1:49 PM Mathew Electronically signed by: Zaki Brian M.D. 12/19/2016 1:59 PM Dictated Date/Time: 12/19/2016 12:52 PM
== END | disposition home or self-care (01) ==
LOC: C.RAD 12:20
PROVIDERS: ATTEND Internal Medicine
DX: M50.30 Other cervical disc degeneration, unspecified cervical region (principal); R51 Headache; L57.0 Actinic keratosis

== ENCOUNTER → 2016-12-19 | Outpatient (CLI) | payer OTHER | END | disposition home or self-care (01) | LOC: C.PATHSPEC 17:30 | PROVIDERS: ATTEND Plastic Surgery | DX: L57.0 Actinic keratosis (principal) ==

== ENCOUNTER → 2017-02-15 | Outpatient (CLI) | payer OTHER ==
--- NOTE | 2017-02-15 14:36 | MAMMOGRAPHY REPORT ---
BILATERAL DIGITAL DIAGNOSTIC MAMMOGRAM TOMOSYNTHESIS WITH CAD: 02/15/2017 CLINICAL HISTORY: History of right breast cancer status post lumpectomy, who presents for routine [facility] mammography. She denies any current complaints. TECHNIQUE: Breast tomosynthesis in addition to standard 2D mammography was performed. Current study was also evaluated with a Computer Aided Detection (CAD) system. Bilateral CC and MLO 2-D and tomosy nthesis images and spot magnification right cc and ML views were obtained. COMPARISON: Comparison is made to exams dated: 02/15/2016 mammogram, 02/10/2015 ultrasound, 02/11/20 15 mammogram, 02/12/2014 mammogram, 02/10/2014 mammogram, and 02/07/2013 mammogram - [facility]. BREAST COMPOSITION: There are scattered areas of fibroglandular density in both breasts. FINDINGS: There are no suspicious masses, calcifications, or areas of architectural distortion noted in either breast. There has been no significant interval change compared to prior exams. Again note d are post surgical changes in the right upper outer quadrant posteriorly from prior lumpectomy, incl uding stable density and architectural distortion at the lumpectomy bed. A few new grouped calcifica tions are seen at the lumpectomy bed although these are seen to outline an oval 7 mm fat density mass on the CC views and are therefore consistent with benign fat necrosis. Mild diffuse right breast sk in thickening is stable and likely represents sequela of radiation therapy. A biopsy marker clip is again noted in the right upper outer quadrant. Several clusters of faint calcifications in the right superior breast are stable dating back to the 2009 exam and are therefore considered benign given lo ng-term stability. Benign-appearing left breast calcifications and left breast masses/asymmetries ar e also stable. IMPRESSION: ACR BI-RADS CATEGORY 2: BENIGN There is no mammographic evidence of malignancy. A 1 year screening mammogram is recommended. The ramesh urrutia has been verbally notified of the results. Approximately 10% of breast cancers are not detected with mammography. A negative mammographic report should not delay biopsy if a clinically suggestive mass is present. Teresa Fraser M.D. /:02/15/2017 11:52:39 Gis Web Developer: Sherin DUARTE(Juju)(Lady), [facility] letter sent: Normal 1/2 BI-RADS Code: ACR BI-RADS Category 2: Benign
== END | disposition home or self-care (01) ==
LOC: C.MAMM 11:24
PROVIDERS: ATTEND Nurse Practitioner Family
DX: Z12.31 Encounter for screening mammogram for malignant neoplasm of breast (principal); Z85.3 Personal history of malignant neoplasm of breast; Z08 Encounter for follow-up examination after completed treatment for malignant neoplasm; Z98.890 Other specified postprocedural states

== ENCOUNTER → 2017-05-28 | Outpatient (CLI) | payer OTHER ==
[~2017-05-28] MED LIST changes: -TRAM-10 PO
[2017-05-28 13:00] LABS: BLOOD UREA NITROGEN 26 mg/dl (7-18); CREATININE 0.62 mg/dl (0.60-1.20)
[2017-05-28 14:09] LABS: HEP C IGG 13 YRS+OLDER_RFLX NEG (NEG)
== END | disposition home or self-care (01) ==
LOC: C.LAB 10:57
PROVIDERS: ATTEND Urology
DX: R31.0 Gross hematuria (principal); M35.3 Polymyalgia rheumatica

== ENCOUNTER → 2017-06-04 | Outpatient (CLI) | payer OTHER ==
[~2017-06-04] MED LIST changes: +OPTIRAY 300 IV PRN
--- NOTE | 2017-06-04 15:00 | DIAGNOSTIC IMAGING REPORT ---
IV PYELOGRAM CLINICAL HISTORY: Gross hematuria. Reported history of bladder cancer. COMPARISON STUDY: Abdominal CT dated 05/11/2016. TECHNIQUE: An abdominal auxiliary equipment operator radiograph is performed. IVP pyelogram was then performed following the IV administration of 100 cc of Optiray 300, tomographic images are acquired in the corticomedullary and excretory phases of enhancement. Overhead views of the renal collecting system and bladder were obtained in multiple obliquities both pre and post void. IV contrast was administered without complication. The report was premedicated for a reported history of contrast allergy. FINDINGS: The auxiliary equipment operator tomogram shows a nonobstructed abdominal bowel gas pattern. Moderate fecal retention is observed. No abnormal abdominal calcifications are identified. The skeletal structures are osteopenic. Moderate lumbar spondylosis is observed. Following contrast administration there is symmetric renal cortical enhancement and contrast excretion. No hydronephrosis is identified. No filling defects are seen within the renal pelvis bilaterally or along the course of the ureters to suggest urothelial lesion. The right ureter appears mildly patulous. No evidence of obstruction is identified. The bladder is normal as visualized. There is no significant post void residual. IMPRESSION: No significant abnormality is identified. Electronically signed by: Zaki Brian M.D. 06/04/2017 2:54 PM Dictated Date/Time: 06/04/2017 2:40 PM
== END | disposition home or self-care (01) ==
LOC: C.RAD 12:07
PROVIDERS: ATTEND Urology
DX: C67.9 Malignant neoplasm of bladder, unspecified (principal); R31.0 Gross hematuria

== ENCOUNTER → 2017-06-07 | Outpatient (CLI) | payer OTHER ==
[~2017-06-07] MED LIST changes: -OPTIRAY 300 IV PRN
[2017-06-07 14:30] LABS: BLOOD UREA NITROGEN 19 mg/dl (7-18); CREATININE 0.59 mg/dl (0.60-1.20)
== END | disposition home or self-care (01) ==
LOC: C.LABBC 10:11
PROVIDERS: ATTEND Urology
DX: D09.0 Carcinoma in situ of bladder (principal)

== ENCOUNTER 2017-06-22 16:54 | Emergency (ER) | payer OTHER ==
[~2017-06-22] VITALS: Ht 160 cm; Wt 82.7 kg
[2017-06-22 16:58] VITALS: Ht 160 cm; Wt 82.7 kg
[2017-06-22] MEDS ORDERED: PRED-301 PO (17:27)
[2017-06-22] MEDS ORDERED: PRD/25 PO (17:27)
--- NOTE | 2017-06-22 18:49 | DIAGNOSTIC IMAGING REPORT ---
R KNEE 3 VIEWS CLINICAL HISTORY: R knee pain COMPARISON: None. DISCUSSION: No acute fractures are visualized. There are advanced osteoarthritic changes with marked narrowing medial joint compartment. There is a 2.5 cm suprapatellar loose body. There is a corticated 3.2 cm ossific density at the level of the lateral femoral condyle. IMPRESSION: 1. Advanced osteoarthritic changes involving the medial joint compartment. Calcified loose body. No acute fractures. Electronically signed by: Florentino Washington M.D. 06/22/2017 6:47 PM Dictated Date/Time: 06/22/2017 6:46 PM
[2017-06-22 19:13] VITALS: BP 140/68; PULSE 108; TEMP 36.8; O2SAT 96
--- NOTE | 2017-06-22 21:14 | EMERGENCY ROOM VISIT NOTE ---
ED Visit Note First contact with patient: 17:02 Chief Complaint: Right knee pain. History of Present Illness: Ms. Ward is a 71-year-old white female who ambulates into the ED complaining of anterior right knee pain. Historically patient reports she has osteoarthritis in both knees and she is also had previous surgeries to both knees for meniscus injury many years ago. Patient reports approximately 1 month ago she started experiencing pain over the lower hamstring muscles just above the patella. She reports when she would roll around in bed she would feel this area starting to cramp up. Since that time she has been having intermittent pain in that area. Over the last week she reports she is developing pain over the patellar tendon. She reports the pain has been more constant and at rest her discomfort is tolerable but with ambulation and moving from the sitting to standing position the pain becomes severe. Currently at rest she describes it as an achy sensation and rates the discomfort 4/10 and with ambulation and moving from the sitting to standing position it becomes more sharp in nature and she rates this discomfort 8/10. The pain is nonradiating. She does report her prescribed NSAIDs and prednisone improves her pain. Associated with her pain she reports there is also increase in pain with palpation and intermittently when moving to the sitting to standing position she reports her knee feels unstable. She denies back pain, hip pain, thigh pain, lower leg pain, ankle pain, recent injuries/trauma to the knee, skin eruptions, leg numbness/tingling, knee swelling/erythema, fevers, chills, sweats. Review of Systems: As noted above in history of present illness. 5 body systems were reviewed and found to be negative as noted above. Past Medical History: As previously noted, bladder cancer, asthma, emphysema, status post cholecystectomy, appendicitis and unspecified breast and right elbow surgery. Current Medications: Glucophage, Prilosec, ibuprofen, prednisone, arimidex. Allergies to Medications: Celebrex, IV contrast, opioids, nitrofurantoin, phenazopyridine, paclitaxel, sulfa. Social History: Patient is not employed; she lives alone and feels safe at home environment; she denies tobacco and alcohol use. Physical Examination: Vital Signs: Date Time Temp Pulse Resp B/P (MAP) Pulse Ox O2 Delivery O2 Flow Rate FiO2 06/22/17 16:58 36.8 108 20 140/68 96 Room Air GENERAL: -year-old female in mild to moderate distress due to pain, nontoxic- appearing, afebrile and hemodynamically stable. NEUROLOGICAL: Awake, alert and oriented to person, place and time. Answering questions appropriately and following commands. Normal gait. Good hand eye coordination. SKIN: Warm, dry and pink. No soft tissue eruptions or trauma noted. RIGHT LOWER EXTREMITY: No gross bony deformity. No shortening or malrotation. No tenderness in the hip, thigh, lower leg, ankle or foot. Mild tenderness over the Achilles tendon with minimal swelling but no erythema. Obvious osteoarthritic changes to the knee externally. Negative ballottement test. Negative patellar apprehension test. Negative bounce test. No laxity of the collateral cruciate ligaments. Mild decreased range of motion to approximately 100 of flexion but she does have full extension and hyperextension of the knee. 4/5 muscle strength in flexion and extension of the knee and plantar flexion and dorsiflexion of the ankle. No dependent edema or calf tenderness/ cords. Throughout the foot the skin was warm and pink and capillary refill is brisk. She is able to distinguish light sensations to all dermatomes. ED Course: Patient is assessed as noted above. Patient's medication list was reviewed. Patient was offered pain medication and refused. Right Knee X-Rays: Were read by myself and the radiologist shows advanced osteoarthritic changes with marked narrowing of the medial joint compartment, 2.5 cm suprapatellar loose bone and 2.3 corticated ossific density at the lateral femoral condyle. I did review this from a previous x-ray and noted that the suprapatellar loose body was new, there was advancement of her medial joint compartment narrowing. I did not appreciate any fractures or dislocations. No obvious joint tissue swelling. I had a lengthy conversation with the patient of a treatment plan. She did not want any additional pain medication she felt the Aleve and prednisone was enough. She did not want any crutches or walkers. Patient was offered splinting and also refused. Patient was educated about today's findings and instructed on her treatment plan ; she verbalized understanding and agreement with this plan. Clinical Impression: Right knee pain. Decision-Making: Initially my differential diagnosis I considered patellar fracture/subluxation, worsening arthritis, joint effusion, patellar tendinitis and other causes. Disposition: Patient discharged home in stable condition; prior to departure she was reassessed and subjectively reported she was feeling better and rated her discomfort 1/10. Plan: Patient was encouraged to continue her current medications as prescribed. Patient was encouraged to use ice for pain. Patient was encouraged to follow-up with trade show specialist but she refused she indicated that she would spend less money if she was able to follow-up with her family doctor. She was encouraged to talk to her family doctor about physical therapy. Patient was encouraged to return the ED for worsening/uncontrolled pain, uncontrolled swelling or any new/concerning symptoms period.
== END 2017-06-22 19:14 | disposition home or self-care (01) ==
LOC: C.EDB 16:55 → C.EDD 19:14
DX: M25.561 Pain in right knee (principal); M17.0 Bilateral primary osteoarthritis of knee; J45.909 Unspecified asthma, uncomplicated; J43.9 Emphysema, unspecified; Z79.84 Long term (current) use of oral hypoglycemic drugs; Z85.51 Personal history of malignant neoplasm of bladder; Z88.6 Allergy status to analgesic agent; Z91.041 Radiographic dye allergy status; Z88.5 Allergy status to narcotic agent; Z88.1 Allergy status to other antibiotic agents; Z88.8 Allergy status to other drugs, medicaments and biological substances; Z88.2 Allergy status to sulfonamides

== ENCOUNTER 2017-07-24 14:10 | Emergency (ER) | payer OTHER ==
[~2017-07-24] VITALS: Ht 160 cm; Wt 82.0 kg
[~2017-07-24 14:10] MED LIST changes: -IBUP-103 PO; -PRD/1 PO; -PRED-301 PO; -PRLSR20 PO
[2017-07-24 14:17] VITALS: Ht 160 cm; Wt 82.0 kg
--- NOTE | 2017-07-24 14:35 | EMERGENCY ROOM VISIT NOTE ---
ED Visit Note First contact with patient: 14:20 CHIEF COMPLAINT: Right leg pain HISTORY OF PRESENTING ILLNESS: This is a 71-year-old female who presents to the emergency department with complaint of right leg pain. The patient states that she has known arthritis in her knee and has been having pain in the calf related to this for the past 2 months. She has been doing physical therapy that has not been helping. She states that for the past week or so she has been having a different sort of pain that starts at the knee and radiates down the front and side of the calf to the ankle, is worse with walking, better with rest. Patient states that the pain became worse, more intense and constant since yesterday, and states that she was unable to sleep much last night because of the pain. She has not noticed any redness, warmth, or swelling of the extremity. She is concerned about the possibility of a blood clot. She does report a history of breast cancer and bladder cancer, states she is not on any treatment for this, and is currently in remission. She does take daily chronic prednisone to treat polymyalgia rheumatica, and states she has a borderline diabetic on metformin. She denies any fevers or chills, chest pain, shortness of breath, dizziness or syncope, abdominal pain, nausea or vomiting, numbness/tingling or weakness of the extremities, urinary symptoms, or rash. REVIEW OF SYSTEMS: A complete 10 point review of systems was reviewed with the patient with pertinent positives and negatives as per history of present illness. All else were negative. PAST MEDICAL HISTORY: Reviewed in the chart. SOCIAL HISTORY: Lives at home. She states she is a former smoker, quit five years ago. ALLERGIES: Reviewed in chart. PHYSICAL EXAM: CONSTITUTIONAL: Pleasant and cooperative. No acute distress. Well-hydrated, well appearing and well nourished. HEENT: Normocephalic, atraumatic. Pupils equal, round and reactive to light, EOMI. TMs normal. Pharynx normal. Moist mucous membranes. NECK: Supple, full active range of motion without discomfort. RESPIRATORY: Good air movement bilaterally, scant expiratory wheezes that clear with coughing, no rhonchi, crackles, or stridor. Equal expansion bilaterally. CARDIOVASCULAR: Tachycardic. Regular rhythm with no murmurs, rubs or gallops. Normal peripheral perfusion. No edema. GASTROINTESTINAL: Soft, nontender, nondistended. No palpable masses or HSM. Bowel sounds present in all quadrants. MUSCULOSKELETAL: There is tenderness to palpation of the posterior medial right calf and tenderness to palpation of the posterior right knee. There is also tenderness to palpation of the anterior lateral right calf adjacent to the tibial bone. No erythema, warmth, or edema noted. There is no tenderness to palpation of the right knee, full range of motion of the right knee and ankle without discomfort. BACK: There is no midline tenderness of the thoracic or lumbar spine or paraspinous muscles. Negative straight leg raise. DTRs 2+ and equal in the bilateral lower extremities. Negative straight leg raise bilaterally. INTEGUMENTARY: No rash or other significant dermatologic conditions noted. NEUROLOGIC: Alert and oriented X 4 with normal affect. Cranial nerves II-XII grossly intact. No focal neurologic deficits noted. 5/5 strength in all 4 extremities, sensation intact to light touch in all 4 extremities. Normal gait observed. ED COURSE AND MEDICAL DECISION MAKING: CC: Patient presenting with complaint of right lower extremity pain DIFFERENTIAL DIAGNOSIS: Includes, but not limited to DVT, cellulitis, radiculopathy, muscular sprain/strain, arthritis, fracture, among others. INTERPRETATION OF LABS: No leukocytosis, no anemia, no significant electrolyte abnormalities, normal renal function, normal liver enzymes. Coagulation factors within normal limits. IMAGING: RIGHT TIBIA AND FIBULA 2 VIEWS CLINICAL HISTORY: Calf pain. FINDINGS: AP and lateral views of the right tibia and fibula are obtained. Correlation is made with radiographs of the right knee dated 06/22/2017. The skeletal structures are osteopenic. There is no radiographic evidence of tibial or fibular fracture. The knee and ankle joints appear maintained noting arthritic change. A large calcified loose body is again suggested in the knee. There is a large dorsal calcaneal enthesophyte. Pretibial soft tissue swelling is noted. IMPRESSION: Osteopenia with no radiographic evidence of right tibial or fibular fracture. ----- R VENOUS DOPP LOWER EXT UNILAT CLINICAL HISTORY: EVALUATE FOR DVT pain. Edema. TECHNIQUE: Venous Doppler COMPARISON STUDY: None FINDINGS: Normal venous Doppler. No evidence for deep venous thrombosis. Complex popliteal cyst measuring 4 x 2 x 1 cm posterior to the knee. IMPRESSION: 1. Normal venous Doppler. 2. Complex popliteal cyst posterior to the right knee. MEDICATION RECONCILIATION: I attest that I have personally reviewed the patient 's current medication list. INITIAL VITAL SIGNS REVIEW: I reviewed the patient's initial vital signs and interpret them as follows: T: Afebrile; BP: Hypertensive; HR: Tachycardic; RR : Within normal limits; Pulse Ox: Within normal limits on room air. Blood pressure screening: The patient was found to have an elevated blood pressure, which was felt to be situational. SUMMARY: Patient was evaluated at bedside, history and physical exam performed. Patient is alert and oriented, in no acute distress, resting, and stretcher. She has tenderness to palpation of the posterior knee and calf, as well as muscular tenderness along the anterior calf adjacent to the tibial bone. Extremity is neurovascularly intact, no erythema, warmth, or swelling to suggest infection. Patient does not have any lumbar spine tenderness, or radicular symptoms on exam to suggest sciatica. Patient is noted to be tachycardic on vitals, she states "I am really frustrated and worked up right now, that is probably why my pulse is fast." Patient denies any symptoms of chest pain, shortness of breath, hemoptysis, dizziness or syncope, recent immobilization, or previous history of blood clots. Orders were placed at bedside for labs, venous duplex to evaluate for DVT, x- ray of the tibia/fibula to evaluate for fracture. Tylenol ordered for pain. Patient discussed with Dr. Alba, who agrees with my assessment and plan. Labs and imaging reviewed as above, no significant abnormalities, specifically no DVT or fracture. Deras's cyst noted on ultrasound. Patient reassessed multiple times throughout ED stay, she reports some improvement in pain after Tylenol. Hypertension and tachycardia are also improved. Patient was updated on all results and plan for discharge, she was encouraged to follow-up with her primary care provider and orthopedic surgeon for continued follow-up of her knee pain. She was also encouraged to continue her physical therapy. Patient was also given strict return precautions should her symptoms worsen, she verbalized understanding. Patient was discharged home in stable condition and ambulatory. Problem List Medical Problems: (1) Acute bronchitis Status: Resolved (2) Asthma Status: Chronic (3) Chest discomfort Status: Resolved (4) Chronic osteoarthritis Status: Chronic (5) Diab Gosia Wo Compl, Type Ii Or Unspec Type, Not Uncntrld Status: Chronic (6) Diaphragmatic Hernia Status: Chronic (7) Diverticulosis Colon (W/O Ment Of Hemorrhage) Status: Chronic (8) Emphysema Nec Status: Chronic (9) Loose body of right knee Status: Resolved (10) Mal Khoi Bladder Neck Status: Chronic (11) Mal Khoi Breast Up-Outer Status: Chronic (12) Obesity, Nos Status: Chronic (13) Pulmonary emphysema Status: Chronic (14) Right hand pain Status: Resolved (15) Right knee pain Status: Resolved (16) Tachycardia Nos Status: Chronic Current/Historical Medications Scheduled Anastrozole (Arimidex), 1 MG PO QAM Ibuprofen Tab (Advil), 800 MG PO BID Metformin Hcl (Glucophage), 850 MG PO BID Omeprazole (Prilosec), 20 MG PO QAM Prednisone (Prednisone), 5 MG PO QAM Prednisone (Prednisone), 2.5 MG PO HS Allergies Coded Allergies: Paclitaxel (Verified Allergy, Severe, "taxanes" cause diff breathing, rash , elevated bp, 06/22/17) Polyoxyethylated Galt Oil (Verified Allergy, Severe, "taxanes" cause diff breathing, rash, elevated bp, 06/22/17) Iodinated Diagnostic Agents (Verified Allergy, Intermediate, HIVES/ITCHING , 06/22/17) Sulfa Drugs (Verified Allergy, Mild, 06/22/17) Celecoxib (Verified Allergy, Unknown, HIVES, 06/22/17) Nitrofurantoin (Verified Allergy, Unknown, CHEST PAIN AND SOB, 06/22/17) Phenazopyridine (Verified Allergy, Unknown, UNKNOWN, 06/22/17) ON PREOP ORDER Opioid Analgesics (Verified Adverse Reaction, Unknown, CHILLS, NAUSEA, ) Vital Signs Date Time Temp Pulse Resp B/P (MAP) Pulse Ox O2 Delivery O2 Flow Rate FiO2 07/24/17 17:10 36.3 96 22 102/60 95 07/24/17 16:35 96 22 102/60 07/24/17 15:18 95 Room Air 07/24/17 14:17 36.3 116 20 141/63 96 Laboratory Results 07/24/17 15:53 Red Blood Count 4.69, Mean Corpuscular Volume 96.4, Mean Corpuscular Hemoglobin 32.2, Mean Corpuscular Hemoglobin Concent 33.4, Mean Platelet Volume 9.6, Neutrophils (%) (Auto) 73.5, Lymphocytes (%) (Auto) 15.4, Monocytes (%) (Auto) 8.4, Eosinophils (%) (Auto) 1.6, Basophils (%) (Auto) 0.5, Neutrophils # (Auto) 7.48, Lymphocytes # (Auto) 1.57, Monocytes # (Auto) 0.86, Eosinophils # (Auto) 0.16, Basophils # (Auto) 0.05 07/24/17 15:53 Test 07/24/17 15:53 White Blood Count 10.18 K/uL (4.8-10.8) Red Blood Count 4.69 M/uL (4.2-5.4) Hemoglobin 15.1 g/dL (12.0-16.0) Hematocrit 45.2 % (37-47) Mean Corpuscular Volume 96.4 fL (80-100) Mean Corpuscular Hemoglobin 32.2 pg (25-34) Mean Corpuscular Hemoglobin Concent 33.4 g/dl (32-36) Platelet Count 307 K/uL (130-400) Mean Platelet Volume 9.6 fL (7.4-10.4) Neutrophils (%) (Auto) 73.5 % Lymphocytes (%) (Auto) 15.4 % Monocytes (%) (Auto) 8.4 % Eosinophils (%) (Auto) 1.6 % Basophils (%) (Auto) 0.5 % Neutrophils # (Auto) 7.48 K/uL (1.4-6.5) Lymphocytes # (Auto) 1.57 K/uL (1.2-3.4) Monocytes # (Auto) 0.86 K/uL (0.11-0.59) Eosinophils # (Auto) 0.16 K/uL (0-0.5) Basophils # (Auto) 0.05 K/uL (0-0.2) RDW Standard Deviation 48.3 fL (36.4-46.3) RDW Coefficient of Variation 13.7 % (11.5-14.5) Immature Granulocyte % (Auto) 0.6 % Immature Granulocyte # (Auto) 0.06 K/uL (0.00-0.02) Prothrombin Time 10.6 SECONDS (9.0-12.0) Prothromb Time International Ratio 1.0 (0.9-1.1) Activated Partial Thromboplast Time 23.8 SECONDS (21.0-31.0) Partial Thromboplastin Ratio 0.9 Anion Gap 6.0 mmol/L (3-11) Est Creatinine Clear Calc Drug Dose 77.0 ml/min Estimated GFR () 101.6 Estimated GFR (Non- 87.6 BUN/Creatinine Ratio 27.9 (10-20) Calcium Level 9.4 mg/dl (8.5-10.1) Total Bilirubin 0.4 mg/dl (0.2-1) Aspartate Amino Transf (AST/SGOT) 7 U/L (15-37) Alanine Aminotransferase (ALT/SGPT) 17 U/L (12-78) Alkaline Phosphatase 51 U/L (45-117) Total Protein 7.1 gm/dl (6.4-8.2) Albumin 3.6 gm/dl (3.4-5.0) Globulin 3.5 gm/dl (2.5-4.0) Albumin/Globulin Ratio 1.0 (0.9-2) Medications Administered Medications (Trade) Dose Ordered Sig/Mildred Route Start Time Stop Time Status Last Admin Dose Admin Acetaminophen (Tylenol Tab) 1,000 mg NOW STAT PO 07/24/17 14:44 07/24/17 14:50 DC 07/24/17 14:44 1,000 MG Departure Information Impression Primary Impression: Deras's cyst of knee Dispostion Home / Self-Care Condition GOOD Referrals Mohan Tate M.D. (PCP) Patient Instructions ED Cyst [place], [facility] Additional Instructions You have been evaluated and treated in the Emergency Department your right knee/ calf pain, and were found to have a cyst behind your right knee which may be causing your pain. Your x-ray is negative for fractures. Your ultrasound is negative for DVT ( blood clot). For pain control, you can use the following [id number] medicines (if >12 yo): - Regular strength (325mg/tab) Tylenol (acetaminophen) 2 tabs every 4-6 hours as needed. Do not exceed 10 tablets in a 24 hour period. Avoid taking more than 3000 mg of Tylenol per day. This includes any other sources of acetaminophen you may take on a regular basis. - Regular strength (200 mg/tab) Advil (ibuprofen) 1-2 tabs every 4-6 hours as needed. Do not exceed a dose of 2400 mg per day. You may apply ice or heat to the knee and leg intermittently for comfort. Rest the knee as much as possible and keep elevated to help reduce any swelling. Drink plenty of fluids to stay well hydrated. Please follow-up with your orthopedic surgeon and primary care provider in the next week for further management of your knee pain. You should continue your physical therapy unless otherwise directed by your doctor. Make sure that they know about the cyst behind your knee. Return to the emergency department for severe worsening pain, new onset of numbness or weakness of the extremities, fevers > 101.5, severe dizziness or passing out, or any other concerns. Problem Qualifiers Primary Impression: Deras's cyst of knee Laterality: right Qualified Codes: M71.21 - Synovial cyst of popliteal space [Deras], right knee
[2017-07-24] MEDS ORDERED: ACETAMINOPHEN 500 MG TAB PO STA (14:44)
[2017-07-24 15:18] VITALS: O2SAT 95
--- NOTE | 2017-07-24 15:29 | DIAGNOSTIC IMAGING REPORT ---
RIGHT TIBIA AND FIBULA 2 VIEWS CLINICAL HISTORY: Calf pain. FINDINGS: AP and lateral views of the right tibia and fibula are obtained. Correlation is made with radiographs of the right knee dated 06/22/2017. The skeletal structures are osteopenic. There is no radiographic evidence of tibial or fibular fracture. The knee and ankle joints appear maintained noting arthritic change. A large calcified loose body is again suggested in the knee. There is a large dorsal calcaneal enthesophyte. Pretibial soft tissue swelling is noted. IMPRESSION: Osteopenia with no radiographic evidence of right tibial or fibular fracture. Electronically signed by: Zaki Brian M.D. 07/24/2017 3:27 PM Dictated Date/Time: 07/24/2017 3:26 PM
[2017-07-24 16:06] LABS: BASO % 0.5 %; BASO ABS # 0.05 K/uL (0-0.2); EOS % 1.6 %; EOS ABS # 0.16 K/uL (0-0.5); HEMATOCRIT 45.2 % (37-47); HEMOGLOBIN 15.1 g/dL (12.0-16.0); IG# 0.06 K/uL (0.00-0.02); LYMPH % 15.4 %; LYMPH ABS # 1.57 K/uL (1.2-3.4); MEAN CELL VOLUME 96.4 fL (80-100); MEAN CORPUSCULAR HEMOGLOBIN 32.2 pg (25-34); MEAN CORPUSCULAR HGB CONC 33.4 g/dl (32-36); MEAN PLATELET VOLUME 9.6 fL (7.4-10.4); MONO % 8.4 %; MONO ABS # 0.86 K/uL (0.11-0.59); NEUT % 73.5 %; NEUT ABS # 7.48 K/uL (1.4-6.5); PLATELET COUNT 307 K/uL (130-400); RED CELL DISTRIBUTION WIDTH CV 13.7 % (11.5-14.5); RED CELL DISTRIBUTION WIDTH SD 48.3 fL (36.4-46.3); WHITE BLOOD COUNT 10.18 K/uL (4.8-10.8)
[2017-07-24 16:24] LABS: ALBUMIN 3.6 gm/dl (3.4-5.0); CALCIUM 9.4 mg/dl (8.5-10.1); CREATININE 0.66 mg/dl (0.60-1.20); POTASSIUM 3.9 mmol/L (3.5-5.1); PTT PATIENT 23.8 SECONDS (21.0-31.0)
[2017-07-24 16:27] LABS: TOTAL PROTEIN 7.1 gm/dl (6.4-8.2)
--- NOTE | 2017-07-24 16:32 | DIAGNOSTIC IMAGING REPORT ---
R VENOUS DOPP LOWER EXT UNILAT CLINICAL HISTORY: EVALUATE FOR DVT pain. Edema. TECHNIQUE: Venous Doppler COMPARISON STUDY: None FINDINGS: Normal venous Doppler. No evidence for deep venous thrombosis. Complex popliteal cyst measuring 4 x 2 x 1 cm posterior to the knee. IMPRESSION: 1. Normal venous Doppler. 2. Complex popliteal cyst posterior to the right knee. The above report was generated using voice recognition software. It may contain grammatical, syntax or spelling errors. Electronically signed by: Humberto Gonzales M.D. 07/24/2017 4:30 PM Dictated Date/Time: 07/24/2017 4:30 PM
--- NOTE | 2017-07-24 16:40 | EMERGENCY ROOM VISIT NOTE ---
ED Visit Note First contact with patient: 14:20 Patient was seen by our PA/COLD ROLLING SUPERVISOR. I was involved in the patient's care and did evaluate the patient myself. I was involved in the care throughout the ER stay. The patient presents with right knee and leg pain. There is no DVT or fracture. A Deras's cyst was seen in the right knee and this may be causing her discomfort. The patient is stable for discharge, she will be referred to orthopedics.
[2017-07-24 17:10] VITALS: BP 102/60; PULSE 96; TEMP 36.3; O2SAT 95
[2017-07-24] MEDS ORDERED: PRED-301 PO (17:27)
[2017-07-24] MEDS ORDERED: PRD/25 PO (17:27)
[2017-07-24] MEDS ORDERED: PRLSR20 PO (21:02)
[2017-07-24] MEDS ORDERED: IBUP-103 PO (21:03)
== END 2017-07-24 17:11 | disposition home or self-care (01) ==
LOC: C.EDB 14:11 → C.EDD 17:11
DX: M71.21 Synovial cyst of popliteal space [Baker], right knee (principal); M17.11 Unilateral primary osteoarthritis, right knee; M35.3 Polymyalgia rheumatica; E11.9 Type 2 diabetes mellitus without complications; J45.909 Unspecified asthma, uncomplicated; K44.9 Diaphragmatic hernia without obstruction or gangrene; K57.30 Diverticulosis of large intestine without perforation or abscess without bleeding; J43.9 Emphysema, unspecified; R00.0 Tachycardia, unspecified; E66.3 Overweight; Z85.3 Personal history of malignant neoplasm of breast; Z85.51 Personal history of malignant neoplasm of bladder; Z79.52 Long term (current) use of systemic steroids; Z79.84 Long term (current) use of oral hypoglycemic drugs; Z88.8 Allergy status to other drugs, medicaments and biological substances; Z91.041 Radiographic dye allergy status; Z88.2 Allergy status to sulfonamides; Z88.1 Allergy status to other antibiotic agents; Z88.6 Allergy status to analgesic agent; Z88.5 Allergy status to narcotic agent

== ENCOUNTER → 2017-08-01 | Outpatient (CLI) | payer OTHER ==
[~2017-08-01] MED LIST changes: +IBUP-103 PO; +PRD/25 PO; +PRED-301 PO; +PRLSR20 PO
--- NOTE | 2017-08-01 18:22 | DIAGNOSTIC IMAGING REPORT ---
RIGHT FOOT 3 VIEWS CLINICAL HISTORY: Right foot pain. FINDINGS: 3 views of the right foot are obtained. No prior studies are available for comparison at the time of dictation. The skeletal structures are osteopenic. No fracture is seen. Mild arthritic changes seen at the first metatarsophalangeal joint. There is a large dorsal calcaneal enthesophyte. A tiny plantar enthesophyte is noted. Degenerative spurring is seen along the dorsal aspect of the tarsal bones. The overlying soft tissues are within normal limits. Mild atherosclerotic calcification is noted in the regional arteries. IMPRESSION: 1. No acute bony abnormality is seen in the right foot. 2. Osteopenia, large heel spur, and mild degenerative change as above. Electronically signed by: Zaki Brian M.D. 08/01/2017 6:21 PM Dictated Date/Time: 08/01/2017 6:20 PM
== END | disposition home or self-care (01) ==
LOC: C.RAD 17:55
PROVIDERS: ATTEND Internal Medicine
DX: M79.671 Pain in right foot (principal); M85.871 Other specified disorders of bone density and structure, right ankle and foot; M77.31 Calcaneal spur, right foot

== ENCOUNTER 2019-02-25 02:48 | Inpatient (IN) ==
[2019-02-25 03:24] LABS: Appearance Urine Clear (Clear); Bilirubin Urine Negative (Negative); Blood Urine Negative (Negative); Color Urine Yellow; Glucose Urine UA Negative (Negative); Ketones Urine Trace (Negative); Leukocyte Esterase Urine Negative (Negative); Nitrite Urine Negative (Negative); Protein Urine Negative (Negative); Specific Gravity Urine 1.013 (1.000-1.030); Urobilinogen Urine Negative (Negative)
[2019-02-25 03:26] LABS: Basophils # (auto) 0.01 K/uL (0-0.2); Basophils % (auto) 0.1 %; Eosinophils # (auto) 0.01 K/uL (0-0.5); Eosinophils % (auto) 0.1 %; Hematocrit (blood only) 48.3 % (37-47); Hemoglobin 15.8 g/dL (12.0-16.0); Immature Granulocytes # (auto) 0.05 K/uL (0.00-0.02); Immature Granulocytes % (auto) 0.4 %; Lymphocytes % (auto) 6.6 %; Mean Corpuscular Hemoglobin 31.5 pg (25-34); Mean Corpuscular Hgb Conc 32.7 g/dL (32-36); Mean Corpuscular Volume 96.2 fL (80-100); Mean Platelet Volume 9.9 fL (7.4-10.4); Monocytes # (auto) 0.23 K/uL (0.11-0.59); Monocytes % (auto) 1.9 %; Neutrophils # (auto) 11.05 K/uL (1.4-6.5); Neutrophils % (auto) 90.9 %; Platelet Count 258 K/uL (130-400); RDW Coefficient of Variation 13.9 % (11.5-14.5); RDW Standard Deviation 49.3 fL (36.4-46.3); Red Blood Count 5.02 M/uL (4.2-5.4); White Blood Count 12.15 K/uL (4.8-10.8)
[2019-02-25 03:36] LABS: Albumin Level 3.6 gm/dl (3.4-5.0); BUN Creatinine Ratio 26.4 (10-20); Calcium 9.1 mg/dl (8.5-10.1); Est GFR (African American) 78.8
[2019-02-25 03:38] LABS: Albumin Globulin Ratio 0.9 (0.9-2); Bilirubin,Total 0.7 mg/dl (0.2-1); Globulin 3.8 gm/dl (2.5-4.0); Total Protein 7.4 gm/dl (6.4-8.2)
[2019-02-25 03:43] LABS: INR 1.1 (0.9-1.1); Partial Thromboplastin Ratio 0.7; Partial Thromboplastin Time 20.3 Seconds (21.0-31.0); Prothrombin Time 10.8 Seconds (9.0-12.0)
[2019-02-25 04:03] LABS: Potassium 3.7 mmol/L (3.5-5.1)
[2019-02-25] MEDS ORDERED: LEVOFLOXACIN/D5W 750 MG/150 ML BAG IV STA (04:16)
[2019-02-25] MEDS ORDERED: PIPERACILLIN/TAZOBACTAM 4.5 GM/120 ML BAG IV ONE (04:16)
[2019-02-25] MEDS ORDERED: PIPERACILL/TAZOBAC CONSULT ACTIVE PRN (04:16)
[2019-02-25] MEDS ORDERED: SODIUM CHLORIDE 0.9% 500 ML IV ONE (04:29)
[2019-02-25] MEDS ORDERED: SODIUM CHLORIDE 0.9% 500 ML IV SCH (04:30)
--- NOTE | 2019-02-25 06:05 | History & Physical Report ---
Date of Service February 25, 2019 Assessment & Plan (1) Sepsis: 73-year-old female with past medical history of COPD, tobacco use, breast cancer, bladder cancer, PMR presents with acute symptoms of chills, headache and neck pain starting this evening. Patient has a mild leukocytosis, lactate of 3.1 and was tachycardic. Patient appears nontoxic. Patient is being admitted and treated for sepsis per sirs criteria. Patient has risk factors for CAD including diabetes, tobacco use. Will order troponin and follow EKG. Sepsis per SIRS criteria, unknown source Chest x-ray obtainedpatient maybe developing right lower lobe consolidation, awaiting official read Lactate under 4, no hypotensionreceived 500 fluid bolus in ED, continue maintenance rate of 125 cc/h Test for influenza, follow blood cultures, follow urine cultures, follow lactate If the patient is bacteremic, consider removing and culturing portpresent since diagnosis of cancer in 2010, has resisted recommendations to remove Treating for pulmonary source with Levaquin, will not continue Zosyn started in the ED. Considering broadening if clinical picture worsens or does not improve. Documented history of COPD, tobacco use Albuterol as needed, Mucinex Diabetes Hold metformin Sliding scale insulin ordered Past medical history of breast cancer Continue anastrozole PMR Patient is on 20 mg of prednisone, hold for now GERD Continue omeprazole DVT prophylaxisLovenox Dietheart healthy CODE STATUSfull code (2) Pneumonia: (3) COPD (chronic obstructive pulmonary disease): (4) Polymyalgia rheumatica: (5) Bladder cancer: (6) Breast cancer: History of Present Illness Primary Care Provider: Chandan Bro MD 73-year-old female with past medical history of COPD, tobacco use, breast cancer, bladder cancer, PMR presents with acute symptoms of chills, headache and neck pain. States that the symptoms acutely started at 1030 this evening when she was lying down for bed. She became concerned because of the acute presentation of symptoms and the persistence of the symptoms for over 1 hour. Constitutional; fevers, chills, fatigue, headache, neck pain all present this evening HEENT; denies runny nose, sinus pain, sore throat CV; denies chest pain, palpitations Pulmonary; reports wheezing, chronic cough, denies shortness of breath Abdomen; denies abdominal pain, nausea/vomiting/diarrhea Allergies Allergy/AdvReac Type Severity Reaction Status Date / Time castor oil Allergy Severe "TAXANES" Verified 02/04/19 18:50 CAUSE DYSPNEA, RASH, ELEVATED BP docetaxel [From Taxotere] Allergy Severe "TAXANES" Verified 02/04/19 18:50 CAUSE DYSPNEA, RASH, ELEVATED BP paclitaxel Allergy Severe "TAXANES" Verified 02/04/19 18:50 CAUSE DYSPNEA, RASH, ELEVATED BP sulfamethoxazole Allergy Severe Anaphylaxis Verified 02/04/19 18:50 [From Bactrim] trimethoprim [From Bactrim] Allergy Severe Anaphylaxis Verified 02/04/19 18:50 celecoxib Allergy Unknown HIVES Verified 02/04/19 18:50 Iodinated Contrast Media Allergy Unknown HIVES/ITCHI Verified 02/04/19 18:50 NG nitrofurantoin Allergy Unknown CHEST Verified 02/04/19 18:50 PAIN, DYSPNEA Sulfa (Sulfonamide Allergy Unknown HIVES, Verified 02/04/19 18:50 Antibiotics) ITCHINESS, SHORTNESS OF BREATH phenazopyridine AdvReac Unknown N/V Verified 02/04/19 18:50 Codeine Derivatives Allergy Unknown COLD Uncoded 01/17/19 14:15 SWEAT, THINGS START SPINNING, NAUSEA Macrobid CAPS Allergy Unknown PT UNSURE Uncoded 01/17/19 14:15 Opioid Analgesics AdvReac Unknown CHILLS, Uncoded 01/17/19 14:15 NAUSEA, COLD SWEAT Pyridium TABS AdvReac Unknown Nausea Uncoded 01/17/19 14:15 Home Medications Home Medications Medication Instructions Recorded Confirmed Type metformin 850 mg PO BID 01/21/18 02/25/19 History anastrozole 1 mg tablet 1 mg PO QDL 10/10/18 02/25/19 History celecoxib 100 mg capsule 100 mg PO DAILY #30 cap 11/20/18 02/25/19 Rx prednisone 20 mg tablet See Rx Instructions PO .COMPLEX 02/04/19 02/25/19 History tab levofloxacin 750 mg PO DAILY 4 Days #4 tab 02/26/19 Rx omeprazole 40 mg PO DAILY #30 cap 02/26/19 Rx Past Med/Surg History Medical History Asthma (Acute 04/25/12) COPD (chronic obstructive pulmonary disease) Bladder cancer Arthritis Bladder cancer S/P TURBT/BCG TREATMENT Bronchitis Chronic obstructive pulmonary disease STABLE Diabetes mellitus, type 2 NIDDM Diverticular disease Hearing deficit History of breast cancer RIGHT S/P LUMPECTOMY/CHEMO/RADATION (2009) Osteoporosis PMR (polymyalgia rheumatica) ON PREDNISONE 10MG DAILY*-- TAKING PPI PREVENTATIVE PER PATIENT Surgical History H/O cystoscopy History of appendectomy History of arthroscopy B/L KNEE History of breast biopsy History of cholecystectomy History of colonoscopy History of elbow surgery RIGHT History of lumpectomy of right breast History of surgery TURBT X 2; TURBT, CYSTO, RIGHT RPG, STENT: 07/11/18: LMA#4 AT [facility] History of surgery LEFT CHEST PORT Social History Preferred Language: Yakut Communication Ability: Effective Visual Impairment: No Limitations Hearing Ability: Normal Editor City Required: No Beliefs That Will Affect Care: None marital status: Single Current Living Situation: Other Current Living Situation Comment: LIVES W/ ROOMMATE current occupational status: retired Feels Safe at Home: Yes Smoking Status: Current some day smoker Tobacco Type: cigarettes ; Cigarettes Per Day: 6 ; Second Hand Exposure: Yes ; Hx Alcohol Use: No Hx Substance Use: No Review of Systems Review of Systems: All systems reviewed & are unremarkable except as noted in HPI & below Physical Exam Constitutional: WD/WN, vitals as above Eyes: PERRL, conjunctivae normal, anicteric sclerae ENMT: external ear and nose normal, oropharynx normal Neck: trachea midline, no thyromegaly Respiratory: no respiratory distress, no labored breathing, no retractions and does not use accessory muscles Auscultation: + wheezes (Bilateral, diffused) Cardiovascular: RRR, no murmur, no edema Rate/Rhythm: regular rhythm Gastrointestinal (Abdomen): normal bowel sounds, soft, nontender, no hepatosplenomegaly Musculoskeletal: no cyanosis or clubbing, extremities motor strength 5/5 Skin: no rashes, warm and dry Neurologic: PERRL, EOMI, accommodation nl, no face palsy, no dysarthria Psychiatric: A+Ox3, euthymic affect Results & Data Vital Signs (Past 12 Hours) Vital Signs Temp Pulse Pulse Resp BP BP Pulse Ox 02/25/19 05:00 37.4 C 119 H 16 107/65 96 02/25/19 04:20 124 H 18 144/61 H 96 02/25/19 03:45 18 153/75 H 96 02/25/19 03:10 96 02/25/19 03:00 37.5 C 138 H 18 164/75 H 96 Code Status & VTE Plan Code Status Full code Supervising Physician Co-Signing Physician Notes Attending addendum: I have physically seen this patient, have supervised the medical residents activities, and agree with the H&P unless as otherwise noted. Assessment and Plan: Sepsis/presumptive pulmonary source/COPD/tobacco use disorder- Levaquin IV. DuoNeb's 4 times daily and every 2 hours as needed. Guaifenesin extended release 600 mg p.o. twice daily Nasal cannula oxygen, titrate to keep pulse ox 90 to 94%. Continue IV fluid rehydration 125 mL's per hour. Follow all cultures: Blood, urine. Follow influenza test results and follow lactate. Remainder of orders and notations as noted. PG Care Time/CCT Total # of Minutes Spent Total Time Spent with Patient: Total time spent is greater than 50% in coordination of care (as documented) at patient's floor/unit and/or counseling patient: Resident Activity Tracking Resident Involvement: Resident Care Provided Care Provided: Adult Hospital Medicine (1) Sepsis Sepsis acute organ dysfunction status: unspecified Sepsis type: sepsis due to unspecified organism Qualified Code(s): A41.9 - Sepsis, unspecified organism (2) Pneumonia Laterality: right Lung location: lower lobe of lung Pneumonia type: due to unspecified organism Qualified Code(s): J18.1 - Lobar pneumonia, unspecified organism
--- NOTE | 2019-02-25 06:25 | XRay Report ---
XR chest 2V PA/lateral CLINICAL HISTORY: eval for pneumonia dyspnea COMPARISON STUDY: 07/05/2018 FINDINGS: Stable emphysematous change. Catheter remains in superior vena cava. Lungs are considered c lear. No focal infiltrate. IMPRESSION: Chronic and postoperative change. No acute process. The above report was generated using voice recognition software. It may contain grammatical, syntax or spelling errors. Electronically signed by: Humberto Gonzales M.D. 02/25/2019 6:24 AM
--- NOTE | 2019-02-25 06:25 | Emergency Department Note ---
Entered by Fede Patel acting as a scribe for Tosha Lambert DO History of Present Illness General Chief complaint: Back Injury/Pain Stated complaint: NECK/BACK/CHEST DISCOMFORT AND CHILLS Time Seen by Provider: 02/25/19 02:52 Source: patient History of Present Illness Onset (ago): day(s) (this morning) Location: back Pain Consistency: + constant Current Pain Intensity: 2 Associated symptoms: + other (Positive for chills, neck pain, chest discomfort, a cough, and an increased frequency of urination. Negative for urinary burning.) The patient is a 73 year old female who presents to the emergency department with complaints of constant back pain beginning this morning. The patient states that she developed back pain this morning when she was trying to sleep. She notes that she also developed chills, neck pain, and chest discomfort at that time. She rates her pain as a 2/10. She reports that she was not able to sleep. The patient states that she felt fine prior to going to bed. She also complains of an increased frequency of urination and a cough, but she denies any urinary burning. She notes that she had bronchitis 3 weeks ago and still has a mild cough. She reports that she was placed on antibiotics at that time. The patient states that she has a history of cancer. She notes that she did not receive a flu shot this year. She reports that she smokes a few cigarettes a week. Home Medications Home Medications Medication Instructions Recorded Confirmed Type metformin 850 mg PO BID 01/21/18 02/25/19 History anastrozole 1 mg tablet 1 mg PO QDL 10/10/18 02/25/19 History celecoxib 100 mg capsule 100 mg PO DAILY #30 cap 11/20/18 02/25/19 Rx prednisone 20 mg tablet See Rx Instructions PO .COMPLEX 02/04/19 02/25/19 History tab Allergies Allergy/AdvReac Type Severity Reaction Status Date / Time castor oil Allergy Severe "TAXANES" Verified 02/04/19 18:50 CAUSE DYSPNEA, RASH, ELEVATED BP docetaxel [From Taxotere] Allergy Severe "TAXANES" Verified 02/04/19 18:50 CAUSE DYSPNEA, RASH, ELEVATED BP paclitaxel Allergy Severe "TAXANES" Verified 02/04/19 18:50 CAUSE DYSPNEA, RASH, ELEVATED BP sulfamethoxazole Allergy Severe Anaphylaxis Verified 02/04/19 18:50 [From Bactrim] trimethoprim [From Bactrim] Allergy Severe Anaphylaxis Verified 02/04/19 18:50 celecoxib Allergy Unknown HIVES Verified 02/04/19 18:50 Iodinated Contrast Media Allergy Unknown HIVES/ITCHI Verified 02/04/19 18:50 NG nitrofurantoin Allergy Unknown CHEST Verified 02/04/19 18:50 PAIN, DYSPNEA Sulfa (Sulfonamide Allergy Unknown HIVES, Verified 02/04/19 18:50 Antibiotics) ITCHINESS, SHORTNESS OF BREATH phenazopyridine AdvReac Unknown N/V Verified 02/04/19 18:50 Codeine Derivatives Allergy Unknown COLD Uncoded 01/17/19 14:15 SWEAT, THINGS START SPINNING, NAUSEA Macrobid CAPS Allergy Unknown PT UNSURE Uncoded 01/17/19 14:15 Opioid Analgesics AdvReac Unknown CHILLS, Uncoded 01/17/19 14:15 NAUSEA, COLD SWEAT Pyridium TABS AdvReac Unknown Nausea Uncoded 01/17/19 14:15 Past Med/Surg History Medical History Asthma (Acute 04/25/12) COPD (chronic obstructive pulmonary disease) Bladder cancer Bronchitis Arthritis Bladder cancer S/P TURBT/BCG TREATMENT Chronic obstructive pulmonary disease STABLE Diabetes mellitus, type 2 NIDDM Diverticular disease Hearing deficit History of breast cancer RIGHT S/P LUMPECTOMY/CHEMO/RADATION (2009) Osteoporosis PMR (polymyalgia rheumatica) ON PREDNISONE 10MG DAILY*-- TAKING PPI PREVENTATIVE PER PATIENT Surgical History H/O cystoscopy History of appendectomy History of arthroscopy B/L KNEE History of breast biopsy History of cholecystectomy History of colonoscopy History of elbow surgery RIGHT History of lumpectomy of right breast History of surgery TURBT X 2; TURBT, CYSTO, RIGHT RPG, STENT: 07/11/18: LMA#4 AT [facility] History of surgery LEFT CHEST PORT Social History Preferred Language: Algerian Communication Ability: Effective Visual Impairment: No Limitations Hearing Ability: Normal 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 Beliefs That Will Affect Care: None marital status: Single Current Living Situation: Other Current Living Situation Comment: LIVES W/ ROOMMATE current occupational status: retired Other Information That Helps Us Care for You: No Feels Safe at Home: Yes Safety Concerns: Feels Safe At This Time Smoking Status: Current every day smoker Tobacco Type: cigarettes ; Cigarettes Per Day: 6 ; Do You Dip or Chew Tobacco: No ; Second Hand Exposure: No ; Tobacco Cessation Education Requested by Patient: No Hx Alcohol Use: No Hx Substance Use: No Review of Systems See HPI for pertinent positives & negatives. and A total of 10 systems reviewed and were otherwise negative Physical Exam Vital Signs Vital Signs - 24 hr 02/25/19 03:00 02/25/19 03:10 02/25/19 03:45 Temperature 37.5 C Temperature Source Oral Sepsis Recent Fever Within 48 Hours No Sepsis New/Unexplained Change in Mental Status No Sepsis Action Taken by Nursing No Action Required Pulse Rate 138 H Pulse Rate [Apical] Pulse Rhythm Regular Pulse Rhythm [Apical] Respiratory Rate 18 18 Respiratory Effort / Characteristics Non-Labored Spontaneous Respiratory Depth Normal Normal Respiratory Pattern Regular Blood Pressure 164/75 H Blood Pressure [Left Arm] 153/75 H Blood Pressure Mean 104 Blood Pressure Mean [Left Arm] 101 Pulse Oximetry 96 96 96 Oxygen Delivery Method Room Air Room Air Room Air 02/25/19 04:20 02/25/19 05:00 Temperature 37.4 C Temperature Source Oral Sepsis Recent Fever Within 48 Hours Sepsis New/Unexplained Change in Mental Status Sepsis Action Taken by Nursing Pulse Rate Pulse Rate [Apical] 124 H 119 H Pulse Rhythm Pulse Rhythm [Apical] Regular Regular Respiratory Rate 18 16 Respiratory Effort / Characteristics Non-Labored Spontaneous Respiratory Depth Normal Normal Respiratory Pattern Blood Pressure Blood Pressure [Left Arm] 144/61 H 107/65 Blood Pressure Mean Blood Pressure Mean [Left Arm] 88 79 Pulse Oximetry 96 96 Oxygen Delivery Method Room Air Room Air HEENT: Head - normocephalic and atraumatic Pupils are equal, round, and reactive to light. Extraocular eye muscles are intact, and sclera are anicteric. Nose - moist nasal mucosa without discharge. Mouth - moist buccal mucosa. Oropharynx is nonerythematous and there is no tonsillar exudate or edema noted. Neck: Supple; no JVD, nuchal rigidity, cervical lymphadenopathy. Heart: Regular rhythm and tachycardic. There is a normal S1 and S2 with no murmurs, clicks, or gallops appreciated. Lungs: No rales. Rhonchi in lung bases and expiratory wheezes in lung bases. Abdomen: Soft, completely nontender, nondistended, with good bowel sounds. There are no palpable pulsatile masses or hepatosplenomegaly. There is no guarding, rigidity, or rebound noted. Extremities: No evidence of cyanosis, clubbing, or edema. There are easily palpable peripheral pulses. Skin: warm and dry with good turgor and no rashes. Course 0303: The patient was evaluated in room B4. A complete history and physical examination were performed. During the exam, the patient had a wet cough. Nursing notes and previous electronic medical records were reviewed. IV lock was established and labs were drawn as above. A septic protocol was performed. The patient had a twelve-lead EKG. She will go for chest x-ray. 0417: I reevaluated and updated the patient. 0428: Dr. [facility], [facility] [place], is aware of the patient. 0430: Piperacillin Sod/Tazobactam Sod 4.5gm in 120 mls @ 240 mls/hr IV, Levofloxacin/Dextrose 750mg in 150 mls @ 100 mls/hr IV, Sodium Chloride 500 mls @ 999 mls/hr IV 0504: Upon reevaluation, the patient is stable. I discussed the findings and the treatment plan with the patient. She expresses agreement and understanding. I spoke with Dr. Llanes - extrusion utility worker for Dr. Fernando of the [facility] [place] Hospi talist Service. He will be evaluated for further management. Consultations Consultation #1: Dr. Wyatt Goff [facility] [place], is aware of the patient. Time: 04:28 Consultation #2: I spoke with Dr. Llanes - extrusion utility worker for Dr. Gunnar templeton of the [facility] [place] Hospitalist Service. He will be evaluated for further management. Time: 05:04 Administered Medications Acetaminophen (Tylenol) 650 mg PO Q4H PRN PRN Reason: Pain or Fever Stop: 03/27/19 06:32 Last Admin: 02/25/19 19:45 Dose: 650 mg Documented by: [id number] Anastrozole (Arimidex) 1 mg PO QDL [facility] Stop: 03/27/19 11:29 Last Admin: 02/25/19 13:17 Dose: 1 mg Documented by: [id number] Cosigned by: [id number] Celecoxib (Celebrex) 100 mg PO DAILY [facility] Stop: 03/27/19 08:59 Last Admin: 02/25/19 13:18 Dose: 100 mg Documented by: [id number] Guaifenesin (Mucinex) 1,200 mg PO Q12 [facility] Stop: 03/27/19 08:59 Last Admin: 02/25/19 13:19 Dose: 1,200 mg Documented by: [id number] Metformin HCl (Glucophage) 850 mg PO BIDM [facility] Stop: 03/27/19 16:59 Last Admin: 02/25/19 17:20 Dose: 850 mg Documented by: [id number] Pantoprazole Sodium (Protonix) 40 mg PO QAM [facility] Stop: 03/27/19 08:59 Last Admin: 02/25/19 09:25 Dose: 40 mg Documented by: [id number] Discontinued Medications Enoxaparin Sodium (Lovenox) 40 mg SQ QAM [facility] Stop: 03/27/19 08:59 Last Admin: 02/25/19 13:22 Dose: Not Given Documented by: [id number] Piperacillin Sod/Tazobactam Sod (Zosyn) 4.5 gm in 120 mls @ 240 mls/hr IV NOW ONE Stop: 02/25/19 04:45 Last Infusion: 02/25/19 05:20 Dose: 0 mls/hr Documented by: [id number] Admin: 02/25/19 04:30 Dose: 240 mls/hr Documented by: [id number] Levofloxacin/Dextrose (Levaquin/D5w) 750 mg in 150 mls @ 100 mls/hr IV NOW STA Stop: 02/25/19 05:45 Last Infusion: 02/25/19 05:20 Dose: 0 mls/hr Documented by: [id number] Admin: 02/25/19 04:30 Dose: 100 mls/hr Documented by: [id number] Sodium Chloride (Nss) 500 mls @ 125 mls/hr IV .Q4H [facility] Stop: 03/27/19 04:29 Last Admin: 02/25/19 06:49 Dose: Not Given Documented by: [id number] Sodium Chloride (Nss) 500 mls @ 999 mls/hr IV .Q31M ONE Stop: 02/25/19 04:59 Last Infusion: 02/25/19 05:20 Dose: 0 mls/hr Documented by: [id number] Admin: 02/25/19 04:30 Dose: 999 mls/hr Documented by: [id number] Sodium Chloride (Nss 1000ml) 1,000 mls @ 125 mls/hr IV .Q8H [facility] Stop: 02/25/19 22:32 Last Admin: 02/25/19 14:48 Dose: Not Given Documented by: [id number] Infusion: 02/25/19 14:48 Dose: 0 mls/hr Documented by: [id number] Admin: 02/25/19 06:48 Dose: 125 mls/hr Documented by: [id number] Insulin Aspart (Novolog Flexpen) 0 units SC ACHS [facility] Stop: 03/27/19 07:29 Last Admin: 02/25/19 13:20 Dose: Not Given Documented by: [id number] Cosigned by: [id number] Admin: 02/25/19 09:27 Dose: Not Given Documented by: [id number] Cosigned by: [id number] Medical Decision Making Differential Diagnosis Differential diagnoses include: pneumonia, sepsis, UTI, and bronchitis. Medical Records Attestation: I reviewed the patient's medical records. Home Medications Current Medication List: was personally reviewed by me Laboratory Data Attestation: I reviewed the patient's lab results. Result diagrams: 02/25/19 03:03 02/25/19 03:40 Lab Results 02/25/19 02/25/19 02/25/19 Range/Units 03:00 03:03 03:03 WBC 12.15 H (4.8-10.8) K/uL RBC 5.02 (4.2-5.4) M/uL Hgb 15.8 (12.0-16.0) g/dL Hct 48.3 H (37-47) % MCV 96.2 (80-100) fL MCH 31.5 (25-34) pg MCHC 32.7 (32-36) g/dL RDW Std Deviation 49.3 H (36.4-46.3) fL RDW Coeff of Atul 13.9 (11.5-14.5) % Plt Count 258 (130-400) K/uL MPV 9.9 (7.4-10.4) fL Immature Gran % (Auto) 0.4 % Neut % (Auto) 90.9 % Lymph % (Auto) 6.6 % Wetzel % (Auto) 1.9 % Eos % (Auto) 0.1 % Baso % (Auto) 0.1 % Immature Gran # (Auto) 0.05 H (0.00-0.02) K/uL Neut # (Auto) 11.05 H (1.4-6.5) K/uL Lymph # (Auto) 0.80 L (1.2-3.4) K/uL Wetzel # (Auto) 0.23 (0.11-0.59) K/uL Eos # (Auto) 0.01 (0-0.5) K/uL Baso # (Auto) 0.01 (0-0.2) K/uL PT 10.8 (9.0-12.0) Seconds INR 1.1 (0.9-1.1) APTT 20.3 L (21.0-31.0) Seconds PTT Ratio 0.7 Sodium (136-145) mmol/L Potassium (3.5-5.1) mmol/L Chloride (98-107) mmol/L Carbon Dioxide (21-32) mmol/L Anion Gap (3-11) BUN (7-18) mg/dl Creatinine (0.6-1.2) mg/dl Est Cr Clr Drug Dosing ml/min Est GFR ( Amer) Est GFR (Non-Af Amer) BUN/Creatinine Ratio (10-20) Glucose (70-99) mg/dl Lactate (0.4-2.0) mmol/L Calcium (8.5-10.1) mg/dl Total Bilirubin (0.2-1) mg/dl AST (15-37) U/L ALT (12-78) U/L Alkaline Phosphatase (45-117) U/L Total Protein (6.4-8.2) gm/dl Albumin (3.4-5.0) gm/dl Globulin (2.5-4.0) gm/dl Albumin/Globulin Ratio (0.9-2) Urine Color Yellow Urine Appearance Clear (Clear) Urine pH 7.0 (4.5-7.5) Ur Specific Anderson 1.013 (1.000-1.030) Urine Protein Negative (Negative) Urine Glucose (UA) Negative (Negative) Urine Ketones Trace H (Negative) Urine Blood Negative (Negative) Urine Nitrite Negative (Negative) Urine Bilirubin Negative (Negative) Urine Urobilinogen Negative (Negative) Ur Leukocyte Esterase Negative (Negative) Influenza Type A Ag (Neg) Influenza Type B Ag (Neg) 02/25/19 02/25/19 02/25/19 Range/Units 03:03 03:40 03:40 WBC (4.8-10.8) K/uL RBC (4.2-5.4) M/uL Hgb (12.0-16.0) g/dL Hct (37-47) % MCV (80-100) fL MCH (25-34) pg MCHC (32-36) g/dL RDW Std Deviation (36.4-46.3) fL RDW Coeff of Atul (11.5-14.5) % Plt Count (130-400) K/uL MPV (7.4-10.4) fL Immature Gran % (Auto) % Neut % (Auto) % Lymph % (Auto) % Wetzel % (Auto) % Eos % (Auto) % Baso % (Auto) % Immature Gran # (Auto) (0.00-0.02) K/uL Neut # (Auto) (1.4-6.5) K/uL Lymph # (Auto) (1.2-3.4) K/uL Wetzel # (Auto) (0.11-0.59) K/uL Eos # (Auto) (0-0.5) K/uL Baso # (Auto) (0-0.2) K/uL PT (9.0-12.0) Seconds INR (0.9-1.1) APTT (21.0-31.0) Seconds PTT Ratio Sodium 140 (136-145) mmol/L Potassium 3.7 (3.5-5.1) mmol/L Chloride 106 (98-107) mmol/L Carbon Dioxide 26 (21-32) mmol/L Anion Gap 8.0 (3-11) BUN 22 H (7-18) mg/dl Creatinine 0.84 (0.6-1.2) mg/dl Est Cr Clr Drug Dosing 57.0 ml/min Est GFR ( Amer) 78.8 Est GFR (Non-Af Amer) 68.0 BUN/Creatinine Ratio 26.4 H (10-20) Glucose 97 (70-99) mg/dl Lactate 3.1 H* (0.4-2.0) mmol/L Calcium 9.1 (8.5-10.1) mg/dl Total Bilirubin 0.7 (0.2-1) mg/dl AST 17 (15-37) U/L ALT 31 (12-78) U/L Alkaline Phosphatase 67 (45-117) U/L Total Protein 7.4 (6.4-8.2) gm/dl Albumin 3.6 (3.4-5.0) gm/dl Globulin 3.8 (2.5-4.0) gm/dl Albumin/Globulin Ratio 0.9 (0.9-2) Urine Color Urine Appearance (Clear) Urine pH (4.5-7.5) Ur Specific Anderson (1.000-1.030) Urine Protein (Negative) Urine Glucose (UA) (Negative) Urine Ketones (Negative) Urine Blood (Negative) Urine Nitrite (Negative) Urine Bilirubin (Negative) Urine Urobilinogen (Negative) Ur Leukocyte Esterase (Negative) Influenza Type A Ag (Neg) Influenza Type B Ag (Neg) 02/25/19 Range/Units 05:38 WBC (4.8-10.8) K/uL RBC (4.2-5.4) M/uL Hgb (12.0-16.0) g/dL Hct (37-47) % MCV (80-100) fL MCH (25-34) pg MCHC (32-36) g/dL RDW Std Deviation (36.4-46.3) fL RDW Coeff of Atul (11.5-14.5) % Plt Count (130-400) K/uL MPV (7.4-10.4) fL Immature Gran % (Auto) % Neut % (Auto) % Lymph % (Auto) % Wetzel % (Auto) % Eos % (Auto) % Baso % (Auto) % Immature Gran # (Auto) (0.00-0.02) K/uL Neut # (Auto) (1.4-6.5) K/uL Lymph # (Auto) (1.2-3.4) K/uL Wetzel # (Auto) (0.11-0.59) K/uL Eos # (Auto) (0-0.5) K/uL Baso # (Auto) (0-0.2) K/uL PT (9.0-12.0) Seconds INR (0.9-1.1) APTT (21.0-31.0) Seconds PTT Ratio Sodium (136-145) mmol/L Potassium (3.5-5.1) mmol/L Chloride (98-107) mmol/L Carbon Dioxide (21-32) mmol/L Anion Gap (3-11) BUN (7-18) mg/dl Creatinine (0.6-1.2) mg/dl Est Cr Clr Drug Dosing ml/min Est GFR ( Amer) Est GFR (Non-Af Amer) BUN/Creatinine Ratio (10-20) Glucose (70-99) mg/dl Lactate (0.4-2.0) mmol/L Calcium (8.5-10.1) mg/dl Total Bilirubin (0.2-1) mg/dl AST (15-37) U/L ALT (12-78) U/L Alkaline Phosphatase (45-117) U/L Total Protein (6.4-8.2) gm/dl Albumin (3.4-5.0) gm/dl Globulin (2.5-4.0) gm/dl Albumin/Globulin Ratio (0.9-2) Urine Color Urine Appearance (Clear) Urine pH (4.5-7.5) Ur Specific Anderson (1.000-1.030) Urine Protein (Negative) Urine Glucose (UA) (Negative) Urine Ketones (Negative) Urine Blood (Negative) Urine Nitrite (Negative) Urine Bilirubin (Negative) Urine Urobilinogen (Negative) Ur Leukocyte Esterase (Negative) Influenza Type A Ag Neg for Influ A (Neg) Influenza Type B Ag Neg for Influ B (Neg) Imaging Data Attestation: I personally reviewed and interpreted this imaging study as follows: My Impression: CHEST X-RAY: Mediport in place. Compared to June 2018. Some slight fluid overload. No obvious pulmonary consolidation suggesting pneumonia. Fluid in fissures of right lung suggesting possible early pneumonia. Emphysematous changes. ECG Data Attestation: I personally reviewed and interpreted this ECG as follows: Indication: back/shoulder pain Rate (beats per minute): 138 Rhythm: sinus tachycardia Findings: + PAC; no ST depression and no ST elevation Blood Pressure Blood Pressure Findings: Elevated blood pressure Blood Pressure Disposition: further management by hospitalist JOSHUA Farrell The patient is a 73 year old female who presents to the emergency department with complaints of constant back pain beginning this morning. She then developed shaking chills. The patient was significantly tachycardic. She had a lactate greater than 3. There was no obvious source of the infection and the patient had a significant wet cough. She recently finished up a course of antibiotics for bronchitis. She does continue to smoke. Urinalysis was unremarkable. Flu testing is pending. The patient had not received a flu shot or pneumonia vaccine. The patient will be treated as sepsis. The source is most likely lung. She was treated with antibiotics. I discussed the case with the [facility] Hospitalist and they will evaluate for further management. She remains hemodynamically stable. Impression & Plan Sepsis Critical Care Time Critical Care Time: Yes (35) Total Critical Care Time: 35 I have personally spent greater than 35 minutes of critical care time in the direct management of this patient. This includes bedside care, interpretation of diagnostic studies, and testing, discussion with consultants, patient, and family members, and other required patient management activities. This 35 minutes is in excess of all separately billable procedures. Discharge Plan Visit Data *Final* Discharge Date/Time: 02/25/19 06:19 Chief Complaint: Back Injury/Pain Stated Complaint: NECK/BACK/CHEST DISCOMFORT AND CHILLS Other Complaint: Chest Pain Neck Injury/Pain ED Provider: Tosha Lambert Discharge Problem: Sepsis Patient Disposition: Admitted As Inpatient Discharge Instructions Interventions: ED Discharge Assessment Last Done: 02/25/19 06:19 Discharge Problem: Sepsis Qualifiers: Sepsis type: sepsis due to unspecified organism Sepsis acute organ dysfunction status: unspecified Qualified Code(s): A41.9 - Sepsis, unspecified organism The scribe's documentation has been prepared under my direction and personally reviewed by me in its entirety. I confirm that the note above accurately reflects all work, treatment, procedures, and medical decision making performed by me.
[2019-02-25] MEDS ORDERED: ACETAMINOPHEN 325 MG TAB PO PRN (06:33)
[2019-02-25] MEDS ORDERED: POLYETHYLENE (MIRALAX) 17 GM PACK PO PRN (06:33)
[2019-02-25] MEDS ORDERED: ALBUTEROL 0.083% NEBU SOLN 3 ML VIAL NEB PRN (06:33)
[2019-02-25] MEDS ORDERED: DEXTROSE 50% 50 ML SYRINGE IV PRN (06:45)
[2019-02-25] MEDS ORDERED: GLUCOSE 40% GEL 15 GM TUBE PO PRN (06:45)
[2019-02-25] MEDS ORDERED: GLUCAGON FOR INJ 1 MG VIAL SQ PRN (06:45)
[2019-02-25] MEDS ORDERED: CARBOHYDRATES FOR HYPOGLYCEMIA PO PRN (06:45)
[2019-02-25] MEDS ORDERED: GLUCOSE 10 TABS/TUBE PO PRN (06:45)
[2019-02-25] MEDS: SODIUM CHLORIDE 0.9% 1000ML 1,000 ML IV SCH ×2 (06:48→14:48)
[2019-02-25] MEDS: PANTOprazole 40 MG TAB PO SCH (09:25)
[2019-02-25] MEDS: guaiFENesin 600 MG TABCR PO SCH ×3 (09:25→20:52)
[2019-02-25] MEDS: CELECOXIB 100 MG CAP PO SCH ×2 (09:25→13:18)
[2019-02-25] MEDS: ENOXAPARIN INJ 40 MG/0.4 ML SYR SQ SCH ×2 (09:26→13:22)
[2019-02-25] MEDS: INSULIN ASPART 100 UNITS/ML 3 ML PEN SC SCH ×2 (09:27→13:20)
[2019-02-25] MEDS: ANASTROZOLE 1 MG TAB PO SCH (13:17)
--- NOTE | 2019-02-25 15:39 | History & Physical Bridge Note ---
Date of Service February 25, 2019 History & Physical Bridge Note I have examined the patient, reviewed the History & Physical and in the interval since the performance of the History & Physical I have noted the following changes of clinical significance: patient feeling much better, resting all day no longer with chills or rigors, eating well reviewed admission this morning, no clear infiltrate in right base will stop fluids, downgrade to medical floor may be ready to go home tomorrow morning, repeat labs
[2019-02-25] MEDS: METFORMIN HCL 850 MG TAB PO SCH (17:20)
[2019-02-26] MEDS ORDERED: HEPARIN 100 UNIT/ML 5ML FLUSH FLUSH PRN (03:25)
[2019-02-26] MEDS ORDERED: LEVOFLOXACIN/D5W 750 MG/150 ML BAG IV SCH (04:00)
[2019-02-26 06:28] LABS: Basophils # (auto) 0.02 K/uL (0-0.2); Basophils % (auto) 0.1 %; Eosinophils # (auto) 0.15 K/uL (0-0.5); Eosinophils % (auto) 0.9 %; Hemoglobin 12.6 g/dL (12.0-16.0); Immature Granulocytes # (auto) 0.06 K/uL (0.00-0.02); Immature Granulocytes % (auto) 0.4 %; Lymphocytes # (auto) 1.18 K/uL (1.2-3.4); Lymphocytes % (auto) 7.4 %; Mean Corpuscular Hgb Conc 32.3 g/dL (32-36); Mean Corpuscular Volume 95.8 fL (80-100); Mean Platelet Volume 9.6 fL (7.4-10.4); Monocytes # (auto) 1.37 K/uL (0.11-0.59); Monocytes % (auto) 8.6 %; Neutrophils # (auto) 13.16 K/uL (1.4-6.5); Neutrophils % (auto) 82.6 %; Platelet Count 214 K/uL (130-400); RDW Standard Deviation 49.5 fL (36.4-46.3); Red Blood Count 4.07 M/uL (4.2-5.4); White Blood Count 15.94 K/uL (4.8-10.8)
[2019-02-26 07:02] LABS: Calcium 8.5 mg/dl (8.5-10.1); Creatinine Clr Calc Pharmacy 71.5 ml/min; Est GFR (African American) 99.7; Potassium 3.5 mmol/L (3.5-5.1)
[2019-02-26] MEDS: METFORMIN HCL 850 MG TAB PO SCH (08:25)
[2019-02-26] MEDS: guaiFENesin 600 MG TABCR PO SCH (08:26)
[2019-02-26] MEDS: PANTOprazole 40 MG TAB PO SCH (08:27)
[2019-02-26] MEDS: CELECOXIB 100 MG CAP PO SCH (08:27)
[2019-02-26] MEDS ORDERED: predniSONE 10 MG TABLET PO SCH (09:00)
[2019-02-26] MEDS: ANASTROZOLE 1 MG TAB PO SCH (10:47)
--- NOTE | 2019-02-26 16:54 | Discharge Summary ---
Date of Service February 26, 2019 Admission HPI Per Admitting Provider 73-year-old female with past medical history of COPD, tobacco use, breast cancer, bladder cancer, PMR presents with acute symptoms of chills, headache and neck pain. States that the symptoms acutely started at 1030 this evening when she was lying down for bed. She became concerned because of the acute presentation of symptoms and the persistence of the symptoms for over 1 hour. Constitutional; fevers, chills, fatigue, headache, neck pain all present this evening HEENT; denies runny nose, sinus pain, sore throat CV; denies chest pain, palpitations Pulmonary; reports wheezing, chronic cough, denies shortness of breath Abdomen; denies abdominal pain, nausea/vomiting/diarrhea Principal Diagnosis Pneumonia, viral vs bacterial Discharge Exam Constitutional WD/WN, vitals as above Eyes PERRL, conjunctivae normal, anicteric sclerae ENMT external ear and nose normal, oropharynx normal Neck trachea midline, no thyromegaly Respiratory normal respiratory effort; no respiratory distress Auscultation: + crackles (left base); no rales, no rhonchi, no wheezes and no egophony Cardiovascular RRR, no murmur, no edema Gastrointestinal (Abdomen) normal bowel sounds, soft, nontender, no hepatosplenomegaly Musculoskeletal no cyanosis or clubbing, extremities motor strength 5/5 Skin no rashes, warm and dry Neurologic patellar DTR's 2+ bilat, sensation intact and PERRL, EOMI, accommodation nl, no face palsy, no dysarthria Psychiatric A+Ox3, euthymic affect Lymphatic no cervical or axillary lymphadenopathy Discharge Data Allergies Allergy/AdvReac Type Severity Reaction Status Date / Time castor oil Allergy Severe "TAXANES" Verified 02/04/19 18:50 CAUSE DYSPNEA, RASH, ELEVATED BP docetaxel [From Taxotere] Allergy Severe "TAXANES" Verified 02/04/19 18:50 CAUSE DYSPNEA, RASH, ELEVATED BP paclitaxel Allergy Severe "TAXANES" Verified 02/04/19 18:50 CAUSE DYSPNEA, RASH, ELEVATED BP sulfamethoxazole Allergy Severe Anaphylaxis Verified 02/04/19 18:50 [From Bactrim] trimethoprim [From Bactrim] Allergy Severe Anaphylaxis Verified 02/04/19 18:50 celecoxib Allergy Unknown HIVES Verified 02/04/19 18:50 Iodinated Contrast Media Allergy Unknown HIVES/ITCHI Verified 02/04/19 18:50 NG nitrofurantoin Allergy Unknown CHEST Verified 02/04/19 18:50 PAIN, DYSPNEA Sulfa (Sulfonamide Allergy Unknown HIVES, Verified 02/04/19 18:50 Antibiotics) ITCHINESS, SHORTNESS OF BREATH phenazopyridine AdvReac Unknown N/V Verified 02/04/19 18:50 Codeine Derivatives Allergy Unknown COLD Uncoded 01/17/19 14:15 SWEAT, THINGS START SPINNING, NAUSEA Macrobid CAPS Allergy Unknown PT UNSURE Uncoded 01/17/19 14:15 Opioid Analgesics AdvReac Unknown CHILLS, Uncoded 01/17/19 14:15 NAUSEA, COLD SWEAT Pyridium TABS AdvReac Unknown Nausea Uncoded 01/17/19 14:15 Consultations 02/25/19 04:26 ED Decision to Admit Stat 02/25/19 06:33 Consult Case Management - Discharge Planning Routine Hospital Course (1) Sepsis: 73-year-old female with past medical history of COPD, tobacco use, breast cancer, bladder cancer, PMR presents with acute symptoms of chills, headache and neck pain starting this evening. Patient has a mild leukocytosis, lactate of 3.1 and was tachycardic. Patient appears nontoxic. Patient is being admitted and treated for sepsis per sirs criteria. Patient has risk factors for CAD including diabetes, tobacco use. Will order troponin and follow EKG. Sepsis per SIRS criteria, unknown source Chest x-ray obtained no clear infiltrate on CXR however, on exam she had some crackles in left base she improved with IV fluids and Levofloxacin will d/c home on Levofloxacin 750mg daily x 4 more days follow up with PCP Lactate under 4, no hypotensionreceived 500 fluid bolus in ED, fluids stopped on 02/25 in the afternoon, drinking well influenza negative blood cultures with no growth Documented history of COPD, tobacco use Albuterol as needed, Mucinex Diabetes Hold metformin Sliding scale insulin ordered Past medical history of breast cancer Continue anastrozole PMR Patient is on 20 mg of prednisone, hold for now GERD Continue omeprazole (2) Pneumonia: bacterial vs viral flu negative negative CXR but crackles definitively heard in left base responded well to Levofloxacin d/c home on Levofloxacin x 4 more days (3) COPD (chronic obstructive pulmonary disease): no wheezing, no distress, no signs of exacerbation (4) Polymyalgia rheumatica: continue Prednisone, no signs of flare at this time (5) Bladder cancer: (6) Breast cancer: Total Time Total Time Spent Total Time Spent (In Minutes): 32 minutes Total Time Includes: Examination of the Patient, Discharge Planning and Medication Reconciliation Discharge Plan Discharge Items Patient Disposition: Home - Self-Care Reason For Visit: SEPSIS Discharge Diagnosis: Pneumonia, viral vs bacterial Fever and rigors Condition on Discharge: Good Goals: complete brief course of antibiotics Activity: Resume your previous activity Non-emergency contact: Primary Care Provider Call non-emergency contact if: you have any medication questions, your symptoms worsen and you have a fever Follow-up/Referrals: Chandan Bro MD [Primary Care Provider] - 03/05/19 4:30 pm (Please, follow up at Dr. Bro's office with his associate, Ann Marie St PA-C, on SundayMarch 05 at 4:30 pm. *If you need to change this appointment, call their office at [phone].) Diet: Carb Consistent or DM2 Addtl Attending Provider Instructions: Medications: - LEVOFLOXACIN: 750mg daily for 4 more days, next dose due tomorrow AM Pneumonia with fever, rigors CXR did not show obvious infiltrate, but you have fever, some crackles in left base responded extremely well to IV fluids and Levofloxacin IV (antibiotic) will complete 4 more days of Levofloxacin at home, 750mg daily, next dose due tomorrow morning get rest and stay well hydrated FOLLOW UP - Dr. Bro in one week, call for appt Pending Studies at Discharge: No Stand-Alone Forms: My [facility] [employer], Smoking Cessation Medications and DC Order Prescriptions: New omeprazole 40 mg capsule,delayed release(DR/EC) 40 mg PO DAILY Qty: 30 RF: 3 levofloxacin 750 mg tablet 750 mg PO DAILY 4 Days Qty: 4 RF: 0 Continued celecoxib [Celebrex] 100 mg capsule 100 mg PO DAILY Qty: 30 RF: 5 anastrozole 1 mg tablet 1 mg PO QDL RF: 0 prednisone 20 mg tablet See Patient Comments mg PO .COMPLEX RF: 0 metformin 850 mg tablet 850 mg PO BID RF: 0 Discharge Orders: Discharge Order (Routine); Ordered 02/26/19 Ordered By: Elieser Hurtado Admission Data Admit Date/Time: 02/25/19 05:43 Attending Provider: Elieser Hurtado Admit Provider: Royal Llanes Primary Care Provider: Chandan Bro. Other Providers: Ousmane Fernando Other Interventions: Discharge Summary Assessment (RN) Last Done: 02/26/19 10:19 DC Date/Time DO NOT enter until pt leaves facility: 02/26/19 11:23
--- NOTE | 2019-02-28 13:03 | Pharmacy Report ---
ED Pharmacist Culture FollowUP - Culture Follow Up Note Date of Service: February 28, 2019 Notes:: Patient's blood culture now growing probable anaerobic gram negative bacilli 1/2 anaerobic cultures at this time. Patient was discharged from hospital on 02/26- called and gave report to Dr. Elieser Hurtado who was patient's discharging provider.
--- NOTE | 2019-03-03 14:41 | Pharmacy Report ---
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 Patient had been admitted to the hospital for SIRS. She was discharged on 02/26 w/ Rx for Levofloxacin. Notified Dr Saman Henley of this updated BLCX results. She stated she would forward this information to the [facility] and someone would contact the patient for f/u.
== END 2019-02-26 11:23 | disposition home or self-care (01) | DRG 871 ==
LOC: ED 02:48 → 2S 05:43 → SUATTDRO 05:43 → 2S 06:19 → 2N 14:08

== ENCOUNTER 2021-12-25 05:08 | Inpatient (IN) ==
[2021-12-25] MEDS ORDERED: methylPREDNISolone 125 MG/2 ML VIAL IV STA (05:38)
--- NOTE | 2021-12-25 05:43 | Emergency Department Note ---
History of Present Illness General Chief complaint: Tachycardia Stated complaint: LOW OXYGEN LEVEL, HIGH HEART RATE Time Seen by Provider: 12/25/21 05:13 History of Present Illness Maximum Pain Intensity: 5 76-year-old female presents emergency department states that shortness of breath that started last night with an increase in her heart rate. Patient typically states her heart rates around 1 20-1 25 she noticed it was 135 this evening. She is on 2 L of oxygen she states mild subjective shortness of breath. Patient denies chest pain denies pleuritic chest pain denies hemoptysis. There are no other mitigating or alleviating factors. Patient has received a few treatments of chemotherapy as well as radiation therapy. Patient was concerned due to shortness of breath and increase in her heart rate that is typically rapid according to her. Home Medications Medication Instructions Recorded Confirmed Type metformin 850 mg tablet 850 mg PO QPM 07/05/21 12/08/21 History nortriptyline 25 mg capsule 25 mg PO HS #90 caps 11/04/21 12/08/21 Rx celecoxib 100 mg capsule (Celebrex) 100 mg PO QPM 11/09/21 12/08/21 History omeprazole 20 mg capsule,delayed 20 mg PO QPM 11/09/21 12/08/21 History release alendronate 70 mg tablet (Fosamax) 70 mg PO WEEKLY #4 tabs 11/21/21 12/08/21 Rx folic acid 1 mg tablet 1 mg PO QPM #30 tabs 11/21/21 12/08/21 Rx albuterol sulfate 90 mcg/actuation 2 puff inhalation 6XD PRN 11/22/21 12/08/21 Rx aerosol inhaler (Ventolin HFA) shortness of breath or wheezing #6.7 grams cholecalciferol (vitamin D3) 25 25 mcg PO DAILY 12/01/21 12/08/21 History mcg (1,000 unit) capsule mecobalamin (vitamin B12) 1,000 1,000 mcg sublingual DAILY 12/01/21 12/08/21 History mcg disintegrating tablet,sublingual prednisone 5 mg tablet 10 mg PO QPM 12/01/21 12/08/21 History ipratropium 0.5 mg-albuterol 3 mg 3 ml inhalation Q6H PRN wheezing 12/05/21 12/12/21 Rx (2.5 mg base)/3 mL nebulization #360 mL soln nebulizers #1 ea 12/05/21 12/12/21 Rx fluticasone furoate 100 1 inh inhalation DAILY #60 ea 12/07/21 12/12/21 Rx mcg-vilanterol 25 mcg/dose inhalation powder (Breo Ellipta) umeclidinium 62.5 mcg/actuation 1 inh inhalation DAILY #30 ea 12/07/21 12/12/21 Rx blister powder for inhalation (Incruse Ellipta) furosemide 20 mg tablet (Lasix) 20 mg PO DAILY #30 tabs 12/08/21 12/12/21 Rx Allergies Allergy/AdvReac Type Severity Reaction Status Date / Time castor oil Allergy Severe "TAXANES" Verified 12/08/21 14:54 CAUSE DYSPNEA, RASH, ELEVATED BP docetaxel [From Taxotere] Allergy Severe "TAXANES" Verified 12/08/21 14:54 CAUSE DYSPNEA, RASH, ELEVATED BP paclitaxel Allergy Severe "TAXANES" Verified 12/08/21 14:54 CAUSE DYSPNEA, RASH, ELEVATED BP trimethoprim [From Bactrim] Allergy Severe Anaphylaxis Verified 12/08/21 14:54 Iodinated Contrast Media Allergy Intermediate HIVES/ITCHI Verified 12/08/21 14:54 NG nitrofurantoin Allergy Intermediate CHEST Verified 12/08/21 14:54 PAIN, DYSPNEA Sulfa (Sulfonamide Allergy Intermediate HIVES, Verified 12/08/21 14:54 Antibiotics) ITCHINESS, SHORTNESS OF BREATH phenazopyridine AdvReac Intermediate N/V Verified 12/08/21 14:54 codeine AdvReac COLD Verified 12/25/21 08:17 SWEAT, THINGS START SPINNING, NAUSEA Past Med/Surg History Medical History Asthma (04/25/12) Stable and controlled Chronic dyspnea Chronic obstructive pulmonary disease STABLE- CONTROLLED- ALBUTEROL USE THIS AM COPD exacerbation Diabetes mellitus, type 2 NIDDM- WELL CONTROLLED AND STABLE Endometrial thickening on ultrasound Hearing deficit NO AIDS Hemoptysis History of breast cancer RIGHT S/P LUMPECTOMY/CHEMO/RADATION (2009)- STABLE AT THIS TIME History of diverticulitis History of liver disease 03/2019 [facility] FOR LIVER ABSCESS- GIVEN ABXS X MONTHS- FOLLOWING WITH HEME FOR MONITORING -RECENT CT SCAN 06/16/19- SHOWS ABSCESS TO BE DECREASED TO 3.5C M (SURGEON IS AWARE) Hx of bladder cancer HAD BCG INSTILLATION - DX: 2013 Left rib fracture (2017) Liver abscess Lower extremity edema Malignant neoplasm of lung Bronch with biopsy on 11/15/21 Mass of lung upcoming biopsy Migraine HX Osteoporosis PMR (polymyalgia rheumatica) CHRONIC Port-A-Cath in place Small cell lung cancer Tobacco abuse Tremor RIGHT HAND Ureteral tumor Vertebral fracture LUMBAR AND THORACIC Surgical History H/O cystoscopy SEVERAL History of appendectomy History of arthroscopy B/L KNEE History of breast biopsy History of bronchoscopy 11/15/21 History of cholecystectomy History of colonoscopy History of elbow surgery RIGHT History of lumpectomy of right breast History of surgery TURBT X 2; TURBT, CYSTO, RIGHT RPG, STENT: 07/11/18: LMA#[address] [facility] History of surgery LEFT CHEST PORT Nausea and vomiting after administration of anesthetic agent Family History Other Adopted Family history unknown Social History Smoking Status: Former smoker Tobacco Type: Cigarettes Cigarettes Per Day: 6; Smoking End Date: Several weeks ago - ? 6-7 weeks ago; Second Hand Exposure: Yes; Do You Dip or Chew Tobacco: No; Tobacco Cessation Education Requested by Patient: No Hx Alcohol Use: No Hx Substance Use: No Preferred Language: [place] Citizen Communication Ability: Effective Visual Impairment: No Limitations Hearing Ability: Normal Edge Inker Required: No Beliefs That Will Affect Care: None marital status: Single Current Living Situation: Other Current Living Situation Comment: lives with roommate current occupational status: retired Other Information That Helps Us Care for You: No Feels Safe at Home: Yes Safety Concerns: Feels Safe At This Time Childhood Exposure to Second-Hand Smoke: Yes caffeine: No during the past year weight has: remained stable Dental Care, Regularly: Yes Physical Activity Frequency: 1-2 Times per Week Seatbelt Use: always Sunscreen Use: Yes Assistive Devices: Glasses and Oxygen - Continuous Review of Systems A total of 10 systems reviewed and were otherwise negative Constitutional: no fever Respiratory: + cough and + dyspnea Cardiovascular: no chest pain Physical Exam Vital Signs Vital Signs - 24 hr 12/25/21 05:11 12/25/21 05:09 12/25/21 05:28 Temperature 36.5 C Temperature Source Temporal Artery Scan Pulse Rate 139 H 131 H Pulse Rate [Apical] Pulse Rate from SpO2 Sensor 133 H Respiratory Rate 24 26 H Respiratory Effort / Characteristics Short of Breath Non-Labored Spontaneous Respiratory Depth Normal Deep Respiratory Pattern Bradypnea Blood Pressure 112/65 134/75 Blood Pressure [Left Arm] Blood Pressure Mean 80 94 Blood Pressure Mean [Left Arm] Blood Pressure Position [Left Arm] Pulse Oximetry 96 90 Oxygen Delivery Method Nasal Cannula Nasal Cannula Oxygen Flow Rate 2 2 Sepsis New/Unexplained Change in Mental Status N/A Sepsis Action Taken by Nursing No Action Required 12/25/21 05:40 12/25/21 05:50 12/25/21 06:00 Temperature Temperature Source Pulse Rate 131 H 129 H 153 H Pulse Rate [Apical] Pulse Rate from SpO2 Sensor Respiratory Rate 39 H 22 26 H Respiratory Effort / Characteristics Respiratory Depth Respiratory Pattern Blood Pressure 136/72 Blood Pressure [Left Arm] Blood Pressure Mean 93 Blood Pressure Mean [Left Arm] Blood Pressure Position [Left Arm] Pulse Oximetry 90 Oxygen Delivery Method Oxygen Flow Rate Sepsis New/Unexplained Change in Mental Status Sepsis Action Taken by Nursing 12/25/21 06:10 12/25/21 06:20 12/25/21 06:30 Temperature Temperature Source Pulse Rate 127 H 127 H 127 H Pulse Rate [Apical] Pulse Rate from SpO2 Sensor 127 H 129 H 128 H Respiratory Rate 31 H 19 27 H Respiratory Effort / Characteristics Respiratory Depth Respiratory Pattern Blood Pressure Blood Pressure [Left Arm] Blood Pressure Mean Blood Pressure Mean [Left Arm] Blood Pressure Position [Left Arm] Pulse Oximetry 95 95 97 Oxygen Delivery Method Oxygen Flow Rate Sepsis New/Unexplained Change in Mental Status Sepsis Action Taken by Nursing 12/25/21 06:40 12/25/21 07:04 12/25/21 07:35 Temperature Temperature Source Pulse Rate 127 H Pulse Rate [Apical] 130 H 124 H Pulse Rate from SpO2 Sensor 126 H Respiratory Rate 33 H 24 22 Respiratory Effort / Characteristics Non-Labored Respiratory Depth Respiratory Pattern Tachypnea Blood Pressure Blood Pressure [Left Arm] 132/76 130/85 Blood Pressure Mean Blood Pressure Mean [Left Arm] 94 100 Blood Pressure Position [Left Arm] Sitting Sitting Pulse Oximetry 98 98 96 Oxygen Delivery Method Nasal Cannula Nasal Cannula Oxygen Flow Rate 2 2 Sepsis New/Unexplained Change in Mental Status Sepsis Action Taken by Nursing 12/25/21 08:14 12/25/21 09:44 Temperature Temperature Source Pulse Rate Pulse Rate [Apical] 124 H 127 H Pulse Rate from SpO2 Sensor Respiratory Rate 20 22 Respiratory Effort / Characteristics Respiratory Depth Respiratory Pattern Blood Pressure Blood Pressure [Left Arm] 120/73 138/92 Blood Pressure Mean Blood Pressure Mean [Left Arm] 88 107 Blood Pressure Position [Left Arm] Lying Pulse Oximetry 96 95 Oxygen Delivery Method Nasal Cannula Nasal Cannula Oxygen Flow Rate 2 2 Sepsis New/Unexplained Change in Mental Status Sepsis Action Taken by Nursing VITAL SIGNS - Vital signs and nursing notes were reviewed. GENERAL -no acute distress. Communicates well with provider and answers questions appropriately. SKIN - Without rashes. HEAD - NC/AT. EYES - PERRL with EOMI bilaterally. Sclera anicteric. Palpebral conjunctiva pink and moist with no injection noted. EARS - No deformities of external structures noted on gross examination bilaterally. NOSE - Midline and without cyanosis. No epistaxis or purulent drainage noted. Septum midline without deviation or septal hematoma noted. MOUTH/OROPHARYNX - Without perioral cyanosis. Buccal mucosa pink and moist and without leukoplakia. Tongue midline with equal elevation of palate bilaterally. No tonsillar hypertrophy, erythema, or exudates noted. [. NECK - Neck with FROM. Supple to palpation. LUNGS - Chest wall symmetric without accessory muscle use, intercostals retrac tions, or central cyanosis. Normal vesicular breath sounds CTA B/L. No wheezes, rales, or rhonchi appreciated. CARDIAC - Tachycardia with S1/S2. No murmur, rubs, or gallops appreciated. ABDOMEN - Abdominal contour soft without pulsations or visible masses. BS normoactive all four quadrants. No tenderness, palpable masses, hepatosplenomegaly, or ascites noted. EXTREMITIES - No clubbing or peripheral cyanosis. Edema, calves are nontender +5/5 strength noted in UE/LE bilaterally. NEUROLOGIC - Cranial nerves II through XII grossly intact. PSYCH - A&Ox3 and cooperates fully with examiner. Pt is very pleasant and interacts well with examiner. Course Reevaluation(s) Reevaluation #1: Patient was resting in no distress on repeat examination at 5:30 AM. Patient has nondescript and subjective dyspnea. Patient's heart rate has decreased to 125. Patient was found to have a low white blood cell count. Initially plan to potentially discharge the patient home. After further evaluation patient is on the fence as to her disposition plan. I have discussed the case with the [facility] hospitalist for admission for further evaluation of her dyspnea. Time: 05:30 Administered Medications Albuterol (Albut/Ipratrop 3mg/0.5mg Neb 3 Ml Vial) 3 ml INH QIDR [facility]; Protocol Stop: 01/24/22 13:38 Last Admin: 12/25/21 19:10 Dose: 3 ml Documented By: Admin: 12/25/21 15:50 Dose: 3 ml Documented By: Admin: 12/25/21 15:42 Dose: Not Given Documented By: KAT Doxycycline Hyclate (Doxycycline Hyclate 100 Mg Cap) 100 mg PO BID [facility] Stop: 01/01/22 20:59 Last Admin: 12/25/21 20:45 Dose: 100 mg Documented By: PHIL Fluticasone/Vilanterol (Fluticasone/Vilanterol 100/25mcg 14 Puffs/Inhaler) 1 puffs INH DAILY [facility] Stop: 01/24/22 13:38 Last Admin: 12/25/21 14:26 Dose: 1 puffs Documented By: NOLBERTO Folic Acid (Folic Acid 1 Mg Tab) 1 mg PO QPM [facility] Stop: 01/24/22 20:59 Last Admin: 12/25/21 20:46 Dose: 1 mg Documented By: PHIL Guaifenesin (Guaifenesin 600 Mg Tabcr) 600 mg PO Q12 [facility] Stop: 01/24/22 20:59 Last Admin: 12/25/21 20:46 Dose: 600 mg Documented By: PHIL Heparin Sodium/Dextrose (Heparin Iv Adult Wt-Based Standard *No* Bolus Protocol) 1 each IV Q1H [facility]; Protocol Stop: 01/24/22 16:59 Last Admin: 12/25/21 22:47 Dose: Not Given Documented By: Admin: 12/25/21 22:47 Dose: Not Given Documented By: Admin: 12/25/21 22:47 Dose: Not Given Documented By: Admin: 12/25/21 22:14 Dose: Not Given Documented By: Admin: 12/25/21 20:15 Dose: Not Given Documented By: Admin: 12/25/21 20:15 Dose: Not Given Documented By: Admin: 12/25/21 20:15 Dose: Not Given Documented By: Admin: 12/25/21 20:14 Dose: Not Given Documented By: Admin: 12/25/21 20:05 Dose: Not Given Documented By: Admin: 12/25/21 18:27 Dose: 1 each Documented By: Admin: 12/25/21 18:04 Dose: 1 each Documented By: NOLBERTO Methylprednisolone 40 mg/ (Syringe) 0.64 mls @ 1.5 mls/min IV Q8 [facility] Stop: 01/24/22 13:59 Last Admin: 12/25/21 19:49 Dose: 1.5 mls/min Documented By: Admin: 12/25/21 14:27 Dose: 1.5 mls/min Documented By: NOLBERTO Heparin Sodium/Dextrose (Heparin Sodium/Dextrose) 25,000 units in 500 mls @ 22 mls/hr IV .[id number] [facility]; Protocol Stop: 01/24/22 19:59 Last Admin: 12/25/21 20:01 Dose: 1,100 units/hr, 22 mls/hr Documented By: PHIL Co-signed By: DILIP Lactated Ringer's (Lr) 1,000 mls @ 80 mls/hr IV .[id number] [facility] Stop: 12/26/21 06:14 Last Admin: 12/25/21 18:21 Dose: 80 mls/hr Documented By: NOLBERTO Insulin Aspart (Insulin Aspart Per Unit) 0 units SC ACHS [facility] Stop: 01/24/22 13:38 Last Admin: 12/25/21 20:46 Dose: 5 units Documented By: PHIL Co-signed By: DILIP Admin: 12/25/21 18:13 Dose: 3 units Documented By: NOLBERTO Co-signed By: ESPINOZA Admin: 12/25/21 14:21 Dose: 3 units Documented By: NOLBERTO Co-signed By: SHANA Insulin Glargine (Lantus Per Unit Charge) 5 units SQ BID [facility] Stop: 01/24/22 20:59 Last Admin: 12/25/21 20:47 Dose: 5 units Documented By: PHIL Co-signed By: DILIP Nortriptyline HCl (Nortriptyline Hcl 25 Mg Cap) 25 mg PO HS [facility] Stop: 01/24/22 20:59 Last Admin: 12/25/21 20:45 Dose: 25 mg Documented By: PHIL Pantoprazole Sodium (Pantoprazole 40 Mg Tab) 40 mg PO QPM [facility] Stop: 01/24/22 20:59 Last Admin: 12/25/21 20:45 Dose: 40 mg Documented By: PHIL Umeclidinium Olalla (Umeclidinium [place] 62.5mcg/Blister 7 Puffs/Inhaler) 1 puffs INH DAILY [facility] Stop: 01/24/22 13:38 Last Admin: 12/25/21 14:26 Dose: 1 puffs Documented By: NOLBERTO Discontinued Medications Enoxaparin Sodium (Enoxaparin Inj 40 Mg/0.4 Ml Syr) 40 mg SQ Q24H [facility] Stop: 01/24/22 13:59 Last Admin: 12/25/21 14:26 Dose: 40 mg Documented By: NOLBERTO Filgrastim (Filgrastim 480 Mcg/1.6 Ml Vial) 480 mcg SC ONE ONE Stop: 12/25/21 17:29 Last Admin: 12/25/21 18:38 Dose: Not Given Documented By: NOLBERTO Heparin Sodium (Porcine) (Heparin 100 Unit/Ml 5ml Flush) Confirm Administered Dose 5 ml .ROUTE .STK-MED ONE Stop: 12/25/21 06:02 Last Admin: 12/25/21 06:22 Dose: 5 ml Documented By: Magnesium Sulfate/Dextrose (Magnesium Sulfate / D5w) 1 gm in 100 mls @ 50 mls/hr IV Q2H [facility] Stop: 12/25/21 14:14 Last Infusion: 12/25/21 17:00 Dose: 0 mls/hr Documented By: Admin: 12/25/21 14:11 Dose: 50 mls/hr Documented By: Infusion: 12/25/21 12:47 Dose: 50 mls/hr Documented By: Admin: 12/25/21 10:47 Dose: 50 mls/hr Documented By: Infusion: 12/25/21 10:47 Dose: 0 mls/hr Documented By: Admin: 12/25/21 08:38 Dose: 50 mls/hr Documented By: CHELSEA Lactated Ringer's (Lr) 1,000 mls @ 150 mls/hr IV .Q6H40M [facility] Stop: 12/25/21 15:09 Last Infusion: 12/25/21 15:23 Dose: 0 mls/hr Documented By: Admin: 12/25/21 08:38 Dose: 150 mls/hr Documented By: CHELSEA Doxycycline Hyclate 100 mg/ (Dextrose) 110 mls @ 50 mls/hr IV Q12H [facility] Stop: 01/01/22 18:59 Last Admin: 12/25/21 20:16 Dose: Not Given Documented By: PHIL Methylprednisolone (Methylprednisolone 125 Mg/2 Ml Vial) 125 mg IV NOW STA Stop: 12/25/21 05:39 Last Admin: 12/25/21 06:22 Dose: 125 mg Documented By: Miscellaneous (Patient's Height &/Or Weight Needed) 1 each N/A Q2H [facility] Stop: 12/26/21 00:01 Last Admin: 12/25/21 15:20 Dose: 1 each Documented By: Admin: 12/25/21 14:39 Dose: 1 each Documented By: NOLBERTO Medical Decision Making Medical Records Attestation: I reviewed the patient's medical records. Home Medications Current Medication List: was personally reviewed by me Laboratory Data Attestation: I reviewed the patient's lab results. Result diagrams: 12/25/21 05:45 12/25/21 05:45 Lab Results 12/25/21 12/25/21 12/25/21 Range/Units 05:45 05:45 05:45 WBC 0.59 L* (4.8-10.8) K/ul RBC 3.65 L (3.93-5.22) M/uL Hgb 10.6 L (12.0-16.0) g/dl Hct 33.6 L (34.1-44.9) % MCV 92.1 (80.0-100.0) fL MCH 29.0 (25.0-34.0) pg MCHC 31.5 L (32.0-36.0) g/dL RDW Std Deviation 47.2 H (36.4-46.3) fL RDW Coeff of Atul 13.8 (11.5-14.5) % Plt Count 51 L (130-400) K/uL MPV 10.3 (9.4-12.3) fL Immature Gran % (Auto) 0.0 % Neut % (Auto) 5.1 % Lymph % (Auto) 57.6 % Beaver % (Auto) 30.5 % Eos % (Auto) 5.1 % Baso % (Auto) 1.7 % Neut # (Auto) 0.03 L* (1.4-6.5) K/uL Lymph # (Auto) 0.34 L (1.2-3.4) K/uL Beaver # (Auto) 0.18 L (0.24-0.82) K/uL Eos # (Auto) 0.03 (0-0.50) K/uL Baso # (Auto) 0.01 (0-0.2) K/uL Immature Gran # (Auto) 0.00 (0.00-0.02) K/uL PT Cancelled INR Cancelled APTT Cancelled PTT Ratio Cancelled Sodium 136 (136-145) mmol/L Potassium 3.7 (3.5-5.1) mmol/L Chloride 100 (98-107) mmol/L Carbon Dioxide 29 (21-32) mmol/L Anion Gap 7 (3-11) BUN 12 (6-23) mg/dl Creatinine 0.84 (0.6-1.2) mg/dl Est Cr Clr Drug Dosing Not Reportable Est GFR ( Amer) 77.2 ml/min Est GFR (Non-Af Amer) 66.6 ml/min BUN/Creatinine Ratio 14.3 (10-20) Glucose 109 H (70-99(Fasting)) mg/dl Calcium 9.0 (8.5-10.1) mg/dl Magnesium 1.4 L (1.7-2.4) mg/dl Total Bilirubin 0.8 (0.2-1.0) mg/dl AST 21 (13-39) U/L ALT 38 (7-52) U/L Alkaline Phosphatase 97 (34-104) U/L Troponin I High Sens 13.0 D (0-14) pg/ml Total Protein 6.2 (6.0-8.3) gm/dl Albumin 3.4 (3.4-5.0) gm/dl Globulin 2.8 (2.5-4.0) gm/dl Albumin/Globulin Ratio 1.2 (0.9-2) SARS-CoV-2 (PCR) (Negative) Influenza Type A (PCR) (Neg) Influenza Type B (PCR) (Neg) RSV (RT-PCR) (Neg) 12/25/21 12/25/21 12/25/21 Range/Units 06:58 07:46 08:12 WBC (4.8-10.8) K/ul RBC (3.93-5.22) M/uL Hgb (12.0-16.0) g/dl Hct (34.1-44.9) % MCV (80.0-100.0) fL MCH (25.0-34.0) pg MCHC (32.0-36.0) g/dL RDW Std Deviation (36.4-46.3) fL RDW Coeff of Atul (11.5-14.5) % Plt Count (130-400) K/uL MPV (9.4-12.3) fL Immature Gran % (Auto) % Neut % (Auto) % Lymph % (Auto) % Beaver % (Auto) % Eos % (Auto) % Baso % (Auto) % Neut # (Auto) (1.4-6.5) K/uL Lymph # (Auto) (1.2-3.4) K/uL Beaver # (Auto) (0.24-0.82) K/uL Eos # (Auto) (0-0.50) K/uL Baso # (Auto) (0-0.2) K/uL Immature Gran # (Auto) (0.00-0.02) K/uL PT Cancelled 11.1 INR Cancelled 1.0 APTT Cancelled 26.2 PTT Ratio Cancelled 1.0 Sodium (136-145) mmol/L Potassium (3.5-5.1) mmol/L Chloride (98-107) mmol/L Carbon Dioxide (21-32) mmol/L Anion Gap (3-11) BUN (6-23) mg/dl Creatinine (0.6-1.2) mg/dl Est Cr Clr Drug Dosing Est GFR ( Amer) ml/min Est GFR (Non-Af Amer) ml/min BUN/Creatinine Ratio (10-20) Glucose (70-99(Fasting)) mg/dl Calcium (8.5-10.1) mg/dl Magnesium (1.7-2.4) mg/dl Total Bilirubin (0.2-1.0) mg/dl AST (13-39) U/L ALT (7-52) U/L Alkaline Phosphatase (34-104) U/L Troponin I High Sens (0-14) pg/ml Total Protein (6.0-8.3) gm/dl Albumin (3.4-5.0) gm/dl Globulin (2.5-4.0) gm/dl Albumin/Globulin Ratio (0.9-2) SARS-CoV-2 (PCR) NEGATIVE (Negative) Influenza Type A (PCR) Negative (Neg) Influenza Type B (PCR) Negative (Neg) RSV (RT-PCR) Negative (Neg) Imaging Data Radiologist's Impression: Venous Doppler Study 12/25/21 09:47 BILATERAL LOWER EXTREMITY VENOUS DOPPLER CLINICAL HISTORY: edema,cancer,r/o DVT COMPARISON STUDY: Right lower extremity venous Doppler ultrasound January 14, 2019. Left lower extremity venous Doppler ultrasound September 22, 2009. TECHNIQUE: Sonography of the deep venous system of the bilateral lower extremities was performed. Compression and augmentation were evaluated. FINDINGS: The bilateral common femoral, superficial femoral and popliteal veins were compressible. Augmentation was normal. Flow was shown within the deep calf vessels although calf vessels were suboptimally assessed. There is a 6.8 x 1.1 x 5.1 cm complex right popliteal fluid collection. Note is also made of a 5.5 x 1.1 x 2.9 cm complex left popliteal fluid collection. These contain no color flow. IMPRESSION: 1. No evidence of deep venous thrombus within the bilateral lower extremities although calf vessels suboptimally visualized. 2. Suspected complex bilateral popliteal cysts. ACT 112: Negative or not required by law. Electronically signed by: Sanchez Begum M.D. 12/25/2021 11:52 AM ECG Data Attestation: I personally reviewed and interpreted this ECG as follows: Additional Comments: EKG interpreted by me sinus tachycardia rate of 139 left axis deviation incomplete right bundle branch block no obvious ST segment elevation or depression MDM Narrative Medical decision making differential diagnosis includes COPD, pneumonia, bronc hitis, lung cancer, anemia. Plan is to check EKG, lab work, chest x-ray. Patient states that she has a baseline tachycardia she is typically in the 120 range. Patient noticed it was slightly increased this evening. Patient also wears 2 L of oxygen and states that off oxygen her oxygen was low she did increase her oxygen to 2 L this evening. Patient's had a prior history of COPD. I will give the patient IV Solu-Medrol. I have reviewed the prior old records of a recent evaluation in the emergency department Impression & Plan COPD exacerbation, Mass of lung, Acute dyspnea Discharge Plan Visit Data Chief Complaint: Tachycardia Stated Complaint: LOW OXYGEN LEVEL, HIGH HEART RATE ED Provider: John Rod Discharge Problem: COPD exacerbation, Mass of lung, Acute dyspnea Patient Disposition: Admitted As Inpatient Discharge Instructions Interventions: ED Discharge Assessment Last Done: 12/25/21 12:35
[2021-12-25] MEDS ORDERED: HEPARIN 100 UNIT/ML 5ML FLUSH ONE (06:01)
[2021-12-25 06:29] LABS: Alanine Aminotransferase 38 U/L (7-52); Albumin Globulin Ratio 1.2 (0.9-2); Albumin Level 3.4 gm/dl (3.4-5.0); Alkaline Phosphatase 97 U/L (34-104); Anion Gap 7 (3-11); Aspartate Aminotransferase 21 U/L (13-39); BUN Creatinine Ratio 14.3 (10-20); Bilirubin,Total 0.8 mg/dl (0.2-1.0); Blood Urea Nitrogen 12 mg/dl (6-23); Carbon Dioxide 29 mmol/L (21-32); Chloride 100 mmol/L (98-107); Est GFR (African American) 77.2 ml/min; Est GFR (Non-African American) 66.6 ml/min; Globulin 2.8 gm/dl (2.5-4.0); Glucose 109 mg/dl (70-99(Fasting)); Magnesium 1.4 mg/dl (1.7-2.4); Potassium 3.7 mmol/L (3.5-5.1); Sodium 136 mmol/L (136-145); Total Protein 6.2 gm/dl (6.0-8.3)
--- NOTE | 2021-12-25 06:53 | XRay Report ---
XR chest 1V portable CLINICAL HISTORY: Dysrhythmia COMPARISON STUDY: Chest CT November 15, 2021. Chest radiograph December 04, 2021. FINDINGS: Left subclavian [id number] is in place. There is elevation of the left hemidiaphragm. No evidence for pulmonary edema. No consolidation to suggest pneumonia. Linear right basilar opacity fa vors atelectasis. The left upper lobe masslike abnormality has significantly improved since prior exa m of December 04, 2021. Mediastinal and left hilar adenopathy has improved as well. IMPRESSION: 1. No acute cardiopulmonary findings. 2. Significant improvement in the left upper lobe masslike abnormality in mediastinal and left hilar lymphadenopathy. 3. Elevation of the left hemidiaphragm. ACT 112: Negative or not required by law. Electronically signed by: Sanchez Begum M.D. 12/25/2021 6:51 AM
[2021-12-25 06:54] LABS: Hematocrit (blood only) 33.6 % (34.1-44.9); Hemoglobin 10.6 g/dl (12.0-16.0); Mean Platelet Volume 10.3 fL (9.4-12.3); Platelet Count 51 K/uL (130-400)
[2021-12-25 07:01] LABS: Basophils # (auto) 0.01 K/uL (0-0.2); Basophils % (auto) 1.7 %; Eosinophils # (auto) 0.03 K/uL (0-0.50); Eosinophils % (auto) 5.1 %; Lymphocytes # (auto) 0.34 K/uL (1.2-3.4); Lymphocytes % (auto) 57.6 %; Mean Corpuscular Hgb Conc 31.5 g/dL (32.0-36.0); Mean Corpuscular Volume 92.1 fL (80.0-100.0); Monocytes # (auto) 0.18 K/uL (0.24-0.82); Monocytes % (auto) 30.5 %; Neutrophils # (auto) 0.03 K/uL (1.4-6.5); Neutrophils % (auto) 5.1 %; RDW Coefficient of Variation 13.8 % (11.5-14.5); RDW Standard Deviation 47.2 fL (36.4-46.3); Red Blood Count 3.65 M/uL (3.93-5.22); White Blood Count 0.59 K/ul (4.8-10.8)
--- NOTE | 2021-12-25 08:15 | History & Physical Report ---
Date of Service December 25, 2021 Assessment & Plan (1) Acute and chronic respiratory failure: Plan: Presents with pulse ox of 82% at home on room air and typically uses 2 L nasal cannula with exertion only Chest x-ray shows improvement of lung cancer and no pneumonia She is wheezing on examination in the ER Suspect COPD exacerbation, but could have PE given sinus tachycardia, lower extremity edema, existing small cell lung cancer, worsening hypoxia over her baseline Troponin is negative, ECG with sinus tachycardia -Ordered venous Dopplers--> negative for DVT -Admit to PCU for telemetry monitoring -Attempt to get an 18-gauge IV site were unsuccessful-CT angiogram chest could not be performed today -Start empiric heparin drip in the meantime until CT angiogram chest can rule out PE -Hydrate with crystalloid fluids throughout the day and overnight and attempt to get 18-gauge IV in the morning and then get CTA chest -Maintain pulse ox greater than 90% with supplemental O2 -Appreciate pulmonology consultation -Continue IV steroids started in the ER for COPD exacerbation and add doxycycline 100 Mg p.o. twice daily x5 days -Start DuoNebs scheduled, continue home maintenance inhalers (2) Sinus tachycardia: Plan: Typically her heart rate runs in the low 100s to 120s as per history and chart review. It is always sinus tachycardia. On admission here her heart rate is in the high 130s, low 140s-sinus tachycardia Could be secondary to some dehydration due to recent chemotherapy and radiation, poor p.o. intake lately Could be secondary to PE as noted above Could be reactive to worsening hypoxia Could be related to her bronchodilators -Give 2 L of LR and reassess -Hold home Lasix -We will get CT angiogram of the chest tomorrow as above -Given lower extremity edema, could have tachycardia-induced cardiomyopathy- check echocardiogram -Keep pulse ox greater than 90% with supplemental O2 as above -Monitor on telemetry -Would not start beta-joellen at this point until correct underlying causes (3) COPD exacerbation: Plan: As above (4) Lower extremity edema: Plan: Ongoing for a couple of months, not responsive to Lasix 20 mg daily as an outpatient Albumin is normal, UA not collected at the time of admission to look for proteinuria Check venous Dopplers-negative for DVT but do show bilateral popliteal cyst -Checking echocardiogram as above for tachycardia induced cardiomyopathy -Check UA to assess for proteinuria -Check proBNP (5) Small cell lung cancer: Plan: Recently diagnosed and started on chemotherapy and radiation Received etoposide and cisplatin on 12/11-12/13-this is scheduled for every 3 weeks Completed 5 days of radiation therapy on 12/23 [facility] (6) Hypomagnesemia: Plan: Magnesium low at 1.4 on admission, likely due to poor p.o. intake recently Replaced with 3 g of IV magnesium sulfate Follow magnesium levels in the morning (7) Pancytopenia due to antineoplastic chemotherapy: Plan: All cell lines are down secondary to recent chemotherapy No need for transfusion at this point Absolute neutrophil count is very low at 30 but no fevers and no evidence of infection anywhere I discussed her care with oncology, Dr. Ceja-recommends not giving Neupogen due to possibility of increased risk of pneumonitis because of recent radiation therapy If spiked a fever, would start broad-spectrum antibiotics -Follow CBC in the morning -Transfusional support as needed -Okay to start heparin drip for now but if platelet count decreases further, would hold anticoagulation (8) Osteoporosis: Plan: With vertebral compression fractures, secondary to chronic prednisone use On Fosamax as an outpatient Continue vitamin D (9) PMR (polymyalgia rheumatica): Plan: On chronic prednisone 10 mg a day Hold home prednisone while on IV Solu-Medrol Hold Celebrex for vertebral compression fractures while on anticoagulation (10) Diabetes mellitus, type 2: Plan: Patient requests that she not be placed on a diabetic diet Give NovoLog sliding scale and titrate up as needed Add on Lantus 5 units SQ twice daily due to hyperglycemia from steroids Expect she will have hyperglycemia with being on corticosteroids at high doses -Hold home metformin Check hemoglobin A1c in the morning (11) GERD (gastroesophageal reflux disease): Plan: Continue PPI Plan DVT prophylaxis-starting heparin drip Disposition-admit to PCU History of Present Illness Chief Complaint: Shortness of breath, low oxygen levels, fast heart rate Primary Care Provider: Chandan Bro MD This patient is a 76-year-old female with a history of recently diagnosed small cell lung cancer s/p 1 round of chemotherapy with etoposide and cisplatin and 1 week of radiation therapy, COPD, chronic hypoxic respiratory failure on 2 L NC, breast cancer, bladder cancer, PMR on chronic prednisone, DM2, vertebral compression fractures, osteoporosis, who presents to the ER with increased shortness of breath, low oxygen levels to 82% on room air at home, and a fast heart rate into the 130s-140s. This started last evening and persisted through the morning which is when she came to the ER. She reports that her heart rate is typically in the 1 teens to 120s but that 130s-140s as high for her. She is supposed to be wearing 2 LNC of O2 at home but only puts it on when she exerts herself. She denies any chest pain, lightheadedness, nausea/vomiting/diarrhea, denies abdominal pain or urinary symptoms. No cough or sputum production. Denies fevers or chills. She has had lower extremity edema for which she was given Lasix but is not helping. Denies calf pain or pain in the thighs. She had her first round of chemotherapy from 12/11-12/13 followed by 5 days of radiation therapy to the chest with the last session being 12/23. The patient's daughter reports that the patient has not been eating as much as usual since her treatment. The patient thinks she has been drinking her usual amounts of fluid. In the ER, she was placed on oxygen and was given IV Solu-Medrol 125 Mg. A chest x-ray was performed which showed improvement in the left upper lobe masslike abnormality from previous x-ray 3 weeks prior. Hospitalist service was consulted for admission. Initially, I wanted to order a CTA of the chest to rule out PE, but the patient did not want further testing at this time. Later in the day, the [employer] ordered a CTA chest, however an 18-gauge IV site was not able to be obtained I believe due to dehydration. After lengthy discussion with oncology, pulmonology, the patient, and her daughter, decision was made to empirically place her on a heparin drip overnight and hopefully be able to obtain an 18-gauge IV site in the morning to be able to get the CTA chest. Venous Dopplers however were negative for DVT. Allergies Allergy/AdvReac Type Severity Reaction Status Date / Time castor oil Allergy Severe "TAXANES" Verified 12/08/21 14:54 CAUSE DYSPNEA, RASH, ELEVATED BP docetaxel [From Taxotere] Allergy Severe "TAXANES" Verified 12/08/21 14:54 CAUSE DYSPNEA, RASH, ELEVATED BP paclitaxel Allergy Severe "TAXANES" Verified 12/08/21 14:54 CAUSE DYSPNEA, RASH, ELEVATED BP trimethoprim [From Bactrim] Allergy Severe Anaphylaxis Verified 12/08/21 14:54 Iodinated Contrast Media Allergy Intermediate HIVES/ITCHI Verified 12/08/21 14:54 NG nitrofurantoin Allergy Intermediate CHEST Verified 12/08/21 14:54 PAIN, DYSPNEA Sulfa (Sulfonamide Allergy Intermediate HIVES, Verified 12/08/21 14:54 Antibiotics) ITCHINESS, SHORTNESS OF BREATH phenazopyridine AdvReac Intermediate N/V Verified 12/08/21 14:54 codeine AdvReac COLD Verified 12/25/21 08:17 SWEAT, THINGS START SPINNING, NAUSEA Home Medications Medication Instructions Recorded Confirmed Type metformin 850 mg tablet 850 mg PO QPM 07/05/21 12/08/21 History nortriptyline 25 mg capsule 25 mg PO HS #90 caps 11/04/21 12/08/21 Rx celecoxib 100 mg capsule (Celebrex) 100 mg PO QPM 11/09/21 12/08/21 History omeprazole 20 mg capsule,delayed 20 mg PO QPM 11/09/21 12/08/21 History release alendronate 70 mg tablet (Fosamax) 70 mg PO WEEKLY #4 tabs 11/21/21 12/08/21 Rx folic acid 1 mg tablet 1 mg PO QPM #30 tabs 11/21/21 12/08/21 Rx albuterol sulfate 90 mcg/actuation 2 puff inhalation 6XD PRN 11/22/21 12/08/21 Rx aerosol inhaler (Ventolin HFA) shortness of breath or wheezing #6.7 grams cholecalciferol (vitamin D3) 25 25 mcg PO DAILY 12/01/21 12/08/21 History mcg (1,000 unit) capsule mecobalamin (vitamin B12) 1,000 1,000 mcg sublingual DAILY 12/01/21 12/08/21 History mcg disintegrating tablet,sublingual prednisone 5 mg tablet 10 mg PO QPM 12/01/21 12/08/21 History ipratropium 0.5 mg-albuterol 3 mg 3 ml inhalation Q6H PRN wheezing 12/05/21 12/12/21 Rx (2.5 mg base)/3 mL nebulization #360 mL soln nebulizers #1 ea 12/05/21 12/12/21 Rx fluticasone furoate 100 1 inh inhalation DAILY #60 ea 12/07/21 12/12/21 Rx mcg-vilanterol 25 mcg/dose inhalation powder (Breo Ellipta) umeclidinium 62.5 mcg/actuation 1 inh inhalation DAILY #30 ea 12/07/21 12/12/21 Rx blister powder for inhalation (Incruse Ellipta) furosemide 20 mg tablet (Lasix) 20 mg PO DAILY #30 tabs 12/08/21 12/12/21 Rx Past Med/Surg History Medical History Asthma (04/25/12) Stable and controlled Chronic dyspnea Chronic obstructive pulmonary disease STABLE- CONTROLLED- ALBUTEROL USE THIS AM COPD exacerbation Diabetes mellitus, type 2 NIDDM- WELL CONTROLLED AND STABLE Endometrial thickening on ultrasound Hearing deficit NO AIDS Hemoptysis History of breast cancer RIGHT S/P LUMPECTOMY/CHEMO/RADATION (2009)- STABLE AT THIS TIME History of diverticulitis History of liver disease 03/2019 [facility] FOR LIVER ABSCESS- GIVEN ABXS X MONTHS- FOLLOWING WITH [facility] FOR MONITORING -RECENT CT SCAN 06/16/19- SHOWS ABSCESS TO BE DECREASED TO 3.5CM (SURGEON IS AWARE) Hx of bladder cancer HAD BCG INSTILLATION - DX: 2012 Left rib fracture (2016) Liver abscess Lower extremity edema Malignant neoplasm of lung Bronch with biopsy on 11/15/21 Mass of lung upcoming biopsy Migraine HX Osteoporosis PMR (polymyalgia rheumatica) CHRONIC Port-A-Cath in place Small cell lung cancer Tobacco abuse Tremor RIGHT HAND Ureteral tumor Vertebral fracture LUMBAR AND THORACIC Surgical History H/O cystoscopy SEVERAL History of appendectomy History of arthroscopy B/L KNEE History of breast biopsy History of bronchoscopy 11/15/21 History of cholecystectomy History of colonoscopy History of elbow surgery RIGHT History of lumpectomy of right breast History of surgery TURBT X 2; TURBT, CYSTO, RIGHT RPG, STENT: 07/11/18: LMA#4 AT [facility] History of surgery LEFT CHEST PORT Nausea and vomiting after administration of anesthetic agent Family History Other Adopted Family history unknown Social History Smoking Status: Former smoker Tobacco Type: Cigarettes Cigarettes Per Day: 6; Smoking End Date: Several weeks ago - ? 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: No Beliefs That Will Affect Care: None marital status: Single Current Living Situation: Other Current Living Situation Comment: lives with roommate current occupational status: retired Other Information That Helps Us Care for You: No Feels Safe at Home: Yes Safety Concerns: Feels Safe At This Time Childhood Exposure to Second-Hand Smoke: Yes caffeine: No during the past year weight has: remained stable Dental Care, Regularly: Yes Physical Activity Frequency: 1-2 Times per Week Seatbelt Use: always Sunscreen Use: Yes Assistive Devices: Glasses and Oxygen - Continuous Review of Systems Review of Systems: All systems reviewed & are unremarkable except as noted in HPI & below Physical Exam Constitutional: WD/WN, vitals as above Eyes: PERRL, conjunctivae normal, anicteric sclerae ENMT: external ear and nose normal, oropharynx normal Neck: trachea midline, no thyromegaly Respiratory: normal respiratory effort; no labored breathing and no cough Auscultation: + wheezes (Mostly upper airways); no crackles and no rhonchi Cardiovascular: Rate/Rhythm: regular rhythm and + tachycardic Heart Sounds: no murmur Vessels: dorsalis pedis pulses present Extremities: + edema (2+ pitting edema of the legs to the knees bilaterally); no calf tenderness Chest (Breasts): Chest: + vascular access device or port (Left chest) Gastrointestinal (Abdomen): normal bowel sounds, soft, nontender, no hepatosplenomegaly Musculoskeletal: Extremities: no cyanosis and no clubbing Skin: no rashes, warm and dry Neurologic: moves all extremities and awake; no focal motor deficits Psychiatric: A+Ox3, euthymic affect Results & Data Results & Data ([facility]) Vital Signs (Past 12 Hours) Vital Signs Temp Pulse Pulse Resp BP BP Pulse Ox 12/25/21 08:14 124 H 20 120/73 96 12/25/21 07:35 124 H 22 130/85 96 12/25/21 07:04 130 H 24 132/76 98 12/25/21 06:40 127 H 33 H 98 12/25/21 06:30 127 H 27 H 97 12/25/21 06:20 127 H 19 95 12/25/21 06:10 127 H 31 H 95 12/25/21 06:00 153 H 26 H 12/25/21 05:50 129 H 22 12/25/21 05:40 131 H 39 H 136/72 90 12/25/21 05:28 131 H 26 H 134/75 90 12/25/21 05:09 12/25/21 05:11 36.5 C 139 H 24 112/65 96 O2 Del Method O2 Flow Rate 12/25/21 08:14 Nasal Cannula 2 12/25/21 07:35 Nasal Cannula 2 12/25/21 07:04 Nasal Cannula 2 12/25/21 06:40 12/25/21 06:30 12/25/21 06:20 12/25/21 06:10 12/25/21 06:00 12/25/21 05:50 12/25/21 05:40 12/25/21 05:28 12/25/21 05:09 Nasal Cannula 2 12/25/21 05:11 Nasal Cannula 2 Laboratory Results 12/25/21 12/25/21 12/25/21 Range/Units 17:12 13:42 08:12 WBC (4.8-10.8) K/ul RBC (3.93-5.22) M/uL Hgb (12.0-16.0) g/dl Hct (34.1-44.9) % MCV (80.0-100.0) fL MCH (25.0-34.0) pg MCHC (32.0-36.0) g/dL RDW Std Deviation (36.4-46.3) fL RDW Coeff of Atul (11.5-14.5) % Plt Count (130-400) K/uL MPV (9.4-12.3) fL Immature Gran % (Auto) % Neut % (Auto) % Lymph % (Auto) % Walsh % (Auto) % Eos % (Auto) % Baso % (Auto) % Neut # (Auto) (1.4-6.5) K/uL Lymph # (Auto) (1.2-3.4) K/uL Walsh # (Auto) (0.24-0.82) K/uL Eos # (Auto) (0-0.50) K/uL Baso # (Auto) (0-0.2) K/uL Immature Gran # (Auto) (0.00-0.02) K/uL PT 11.1 INR 1.0 APTT 26.2 PTT Ratio 1.0 Sodium (136-145) mmol/L Potassium (3.5-5.1) mmol/L Chloride (98-107) mmol/L Carbon Dioxide (21-32) mmol/L Anion Gap (3-11) BUN (6-23) mg/dl Creatinine (0.6-1.2) mg/dl Est Cr Clr Drug Dosing Est GFR ( Amer) ml/min Est GFR (Non-Af Amer) ml/min BUN/Creatinine Ratio (10-20) Glucose (70-99(Fasting)) mg/dl POC Glucose 203 H 207 H (70-99) mg/dl Calcium (8.5-10.1) mg/dl Magnesium (1.7-2.4) mg/dl Total Bilirubin (0.2-1.0) mg/dl AST (13-39) U/L ALT (7-52) U/L Alkaline Phosphatase (34-104) U/L Troponin I High Sens (0-14) pg/ml Total Protein (6.0-8.3) gm/dl Albumin (3.4-5.0) gm/dl Globulin (2.5-4.0) gm/dl Albumin/Globulin Ratio (0.9-2) SARS-CoV-2 (PCR) (Negative) Influenza Type A (PCR) (Neg) Influenza Type B (PCR) (Neg) RSV (RT-PCR) (Neg) 12/25/21 12/25/21 12/25/21 Range/Units 07:46 06:58 05:45 WBC (4.8-10.8) K/ul RBC (3.93-5.22) M/uL Hgb (12.0-16.0) g/dl Hct (34.1-44.9) % MCV (80.0-100.0) fL MCH (25.0-34.0) pg MCHC (32.0-36.0) g/dL RDW Std Deviation (36.4-46.3) fL RDW Coeff of Atul (11.5-14.5) % Plt Count (130-400) K/uL MPV (9.4-12.3) fL Immature Gran % (Auto) % Neut % (Auto) % Lymph % (Auto) % Walsh % (Auto) % Eos % (Auto) % Baso % (Auto) % Neut # (Auto) (1.4-6.5) K/uL Lymph # (Auto) (1.2-3.4) K/uL Walsh # (Auto) (0.24-0.82) K/uL Eos # (Auto) (0-0.50) K/uL Baso # (Auto) (0-0.2) K/uL Immature Gran # (Auto) (0.00-0.02) K/uL PT Cancelled INR Cancelled APTT Cancelled PTT Ratio Cancelled Sodium 136 (136-145) mmol/L Potassium 3.7 (3.5-5.1) mmol/L Chloride 100 (98-107) mmol/L Carbon Dioxide 29 (21-32) mmol/L Anion Gap 7 (3-11) BUN 12 (6-23) mg/dl Creatinine 0.84 (0.6-1.2) mg/dl Est Cr Clr Drug Dosing Not Reportable Est GFR ( Amer) 77.2 ml/min Est GFR (Non-Af Amer) 66.6 ml/min BUN/Creatinine Ratio 14.3 (10-20) Glucose 109 H (70-99(Fasting)) mg/dl POC Glucose (70-99) mg/dl Calcium 9.0 (8.5-10.1) mg/dl Magnesium 1.4 L (1.7-2.4) mg/dl Total Bilirubin 0.8 (0.2-1.0) mg/dl AST 21 (13-39) U/L ALT 38 (7-52) U/L Alkaline Phosphatase 97 (34-104) U/L Troponin I High Sens 13.0 D (0-14) pg/ml Total Protein 6.2 (6.0-8.3) gm/dl Albumin 3.4 (3.4-5.0) gm/dl Globulin 2.8 (2.5-4.0) gm/dl Albumin/Globulin Ratio 1.2 (0.9-2) SARS-CoV-2 (PCR) NEGATIVE (Negative) Influenza Type A (PCR) Negative (Neg) Influenza Type B (PCR) Negative (Neg) RSV (RT-PCR) Negative (Neg) 12/25/21 12/25/21 Range/Units 05:45 05:45 WBC 0.59 L* (4.8-10.8) K/ul RBC 3.65 L (3.93-5.22) M/uL Hgb 10.6 L (12.0-16.0) g/dl Hct 33.6 L (34.1-44.9) % MCV 92.1 (80.0-100.0) fL MCH 29.0 (25.0-34.0) pg MCHC 31.5 L (32.0-36.0) g/dL RDW Std Deviation 47.2 H (36.4-46.3) fL RDW Coeff of Atul 13.8 (11.5-14.5) % Plt Count 51 L (130-400) K/uL MPV 10.3 (9.4-12.3) fL Immature Gran % (Auto) 0.0 % Neut % (Auto) 5.1 % Lymph % (Auto) 57.6 % Walsh % (Auto) 30.5 % Eos % (Auto) 5.1 % Baso % (Auto) 1.7 % Neut # (Auto) 0.03 L* (1.4-6.5) K/uL Lymph # (Auto) 0.34 L (1.2-3.4) K/uL Walsh # (Auto) 0.18 L (0.24-0.82) K/uL Eos # (Auto) 0.03 (0-0.50) K/uL Baso # (Auto) 0.01 (0-0.2) K/uL Immature Gran # (Auto) 0.00 (0.00-0.02) K/uL PT Cancelled INR Cancelled APTT Cancelled PTT Ratio Cancelled Sodium (136-145) mmol/L Potassium (3.5-5.1) mmol/L Chloride (98-107) mmol/L Carbon Dioxide (21-32) mmol/L Anion Gap (3-11) BUN (6-23) mg/dl Creatinine (0.6-1.2) mg/dl Est Cr Clr Drug Dosing Est GFR ( Amer) ml/min Est GFR (Non-Af Amer) ml/min BUN/Creatinine Ratio (10-20) Glucose (70-99(Fasting)) mg/dl POC Glucose (70-99) mg/dl Calcium (8.5-10.1) mg/dl Magnesium (1.7-2.4) mg/dl Total Bilirubin (0.2-1.0) mg/dl AST (13-39) U/L ALT (7-52) U/L Alkaline Phosphatase (34-104) U/L Troponin I High Sens (0-14) pg/ml Total Protein (6.0-8.3) gm/dl Albumin (3.4-5.0) gm/dl Globulin (2.5-4.0) gm/dl Albumin/Globulin Ratio (0.9-2) SARS-CoV-2 (PCR) (Negative) Influenza Type A (PCR) (Neg) Influenza Type B (PCR) (Neg) RSV (RT-PCR) (Neg) Diagnostic Findings Chest x-ray image personally reviewed by me and agree with following report: Chest X-Ray 12/25/21 05:13 XR chest 1V portable CLINICAL HISTORY: Dysrhythmia COMPARISON STUDY: Chest CT November 15, 2021. Chest radiograph December 04, 2021. FINDINGS: Left subclavian [id number] is in place. There is elevation of the left hemidiaphragm. No evidence for pulmonary edema. No consolidation to suggest pneumonia. Linear right basilar opacity favors atelectasis. The left upper lobe masslike abnormality has significantly improved since prior exam of December 04, 2021. Mediastinal and left hilar adenopathy has improved as well. IMPRESSION: 1. No acute cardiopulmonary findings. 2. Significant improvement in the left upper lobe masslike abnormality in mediastinal and left hilar lymphadenopathy. 3. Elevation of the left hemidiaphragm. ACT 112: Negative or not required by law. Electronically signed by: Sanchez Begum M.D. 12/25/2021 6:51 AM Venous Doppler Study 12/25/21 09:47 BILATERAL LOWER EXTREMITY VENOUS DOPPLER CLINICAL HISTORY: edema,cancer,r/o DVT COMPARISON STUDY: Right lower extremity venous Doppler ultrasound January 14, 2019. Left lower extremity venous Doppler ultrasound September 22, 2009. TECHNIQUE: Sonography of the deep venous system of the bilateral lower extremities was performed. Compression and augmentation were evaluated. FINDINGS: The bilateral common femoral, superficial femoral and popliteal veins were compressible. Augmentation was normal. Flow was shown within the deep calf vessels although calf vessels were suboptimally assessed. There is a 6.8 x 1.1 x 5.1 cm complex right popliteal fluid collection. Note is also made of a 5.5 x 1.1 x 2.9 cm complex left popliteal fluid collection. These contain no color flow. IMPRESSION: 1. No evidence of deep venous thrombus within the bilateral lower extremities although calf vessels suboptimally visualized. 2. Suspected complex bilateral popliteal cysts. ACT 112: Negative or not required by law. Electronically signed by: Sanchez Begum M.D. 12/25/2021 11:52 AM ECG Additional Comments: ECG on 12/25/2021 at 5:26 AM with sinus tachycardia with PACs, rate 139, left axis deviation, incomplete RBBB Code Status & VTE Plan Code Status Full code VTE Prophylaxis Plan VTE Prophylaxis will be ordered: Yes PG Care Time/CCT Total # of Minutes Spent Total Time Spent with Patient: Total time spent is greater than 50% in coordination of care (as documented) at patient's floor/unit and/or counseling patient: Coding Level of Care Code 87926 Initial Inpt Care Lvl 3 Diagnoses Acute and chronic respiratory failure J96.20 Sinus tachycardia R00.0 COPD exacerbation J44.1 Lower extremity edema R60.0 Small cell lung cancer C34.90 Hypomagnesemia E83.42 Pancytopenia due to antineoplastic chemotherapy D61.810; T45.1X5A Osteoporosis M81.0 PMR (polymyalgia rheumatica) M35.3 Diabetes mellitus, type 2 E11.9 GERD (gastroesophageal reflux disease) K21.9
[2021-12-25] MEDS ORDERED: LACTATED RINGER'S 1,000 ML IV SCH ×2 (08:30→17:45)
[2021-12-25] MEDS: MAGNESIUM SULFATE / D5W 1 GM/100 ML BAG IV SCH ×3 (08:38→14:11)
[2021-12-25 08:56] LABS: Partial Thromboplastin Time 26.2 Seconds (21.0-31.0); Prothrombin Time 11.1 Seconds (9.0-12.0)
--- NOTE | 2021-12-25 10:22 | Pulmonary Consultation ---
Date of Consultation December 25, 2021 Assessment & Plan (1) Small cell lung cancer: (2) COPD exacerbation: (3) COPD (chronic obstructive pulmonary disease): COPD type: unspecified COPD Qualified Code(s): J44.9 - Chronic obstructive pulmonary disease, unspecified (4) Ex-smoker: Plan CT chest 11/15/2021 personally reviewed: Left upper lobe opacity, Left hilar mass Linear scarring of the right middle lobe Significant anterior and left hilar mediastinal lymphadenopathy Chest x-ray 12/25/2021: Portable film, elevated left hemidiaphragm, opacity appreciated in the left apical region --COPD exacerbation On Breo and Incruse at home Continue with Solu-Medrol, inhaled bronchodilators as well as DuoNebs For chest congestion and bronchitis I will start the patient on Mucinex and flutter valve --Chronic hypoxic respiratory failure On 2 L nasal cannula at home Continue with oxygen to keep O2 saturation between 88-92% --Small cell lung cancer Diagnosed October 2021 Currently getting chemo and radiation --Sinus tachycardia Patient's heart rate is in the 130s On 12/04/2021 it was still in the 120s Doppler bilateral lower extremity was negative If it does not improve with IV fluids then consideration for CTA to rule out PE --Ex-smoker Smokes half a pack a day Approximately 50-60 pack/year smoking history Plan: Continue with Solu-Medrol, give doxycycline for 5 days, QTC 465 Mucinex and flutter valve for chest congestion BiPAP nightly and as needed shortness of breath Please note the above document was generated using voice recognition software. It may contain grammatical, syntax or spelling errors.Any formal questions or concerns about the content, text or information contained within the body of this dictation should be directly addressed to the provider for clarification. History of Present Illness History of Present Illness 76-year-old female present to the hospital for shortness of breath Past medical history small cell carcinoma of the lung recently diagnosed on chemotherapy, COPD Patient is following with Dr. Cunha. He saw the patient last on 12/08/2021 Previous records and images personally reviewed Patient last chemotherapy was a week ago. She has been also getting radiation therapy 5 times a week At the time of examination patient said that she has been having issues with breathing for the last week or so progressively getting worse She did get a course of steroids on 12/08/2021 which did help but after the chemotherapy and radiation she got more short of breath that is how she ended up in the ER She does complain of phlegm which is clear. Denies any hemoptysis Denies any chest pain, no palpitation No dizziness, dysuria, diarrhea No hematuria, no hematochezia, no epistaxis Denies any fever or chills. 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 quit august 2021 Allergies Allergy/AdvReac Type Severity Reaction Status Date / Time castor oil Allergy Severe "TAXANES" Verified 12/08/21 14:54 CAUSE DYSPNEA, RASH, ELEVATED BP docetaxel [From Taxotere] Allergy Severe "TAXANES" Verified 12/08/21 14:54 CAUSE DYSPNEA, RASH, ELEVATED BP paclitaxel Allergy Severe "TAXANES" Verified 12/08/21 14:54 CAUSE DYSPNEA, RASH, ELEVATED BP trimethoprim [From Bactrim] Allergy Severe Anaphylaxis Verified 12/08/21 14:54 Iodinated Contrast Media Allergy Intermediate HIVES/ITCHI Verified 12/08/21 14:54 NG nitrofurantoin Allergy Intermediate CHEST Verified 12/08/21 14:54 PAIN, DYSPNEA Sulfa (Sulfonamide Allergy Intermediate HIVES, Verified 12/08/21 14:54 Antibiotics) ITCHINESS, SHORTNESS OF BREATH phenazopyridine AdvReac Intermediate N/V Verified 12/08/21 14:54 codeine AdvReac COLD Verified 12/25/21 08:17 SWEAT, THINGS START SPINNING, NAUSEA Home Medications Medication Instructions Recorded Confirmed Type metformin 850 mg tablet 850 mg PO QPM 07/05/21 12/08/21 History nortriptyline 25 mg capsule 25 mg PO HS #90 caps 11/04/21 12/08/21 Rx celecoxib 100 mg capsule (Celebrex) 100 mg PO QPM 11/09/21 12/08/21 History omeprazole 20 mg capsule,delayed 20 mg PO QPM 11/09/21 12/08/21 History release alendronate 70 mg tablet (Fosamax) 70 mg PO WEEKLY #4 tabs 11/21/21 12/08/21 Rx folic acid 1 mg tablet 1 mg PO QPM #30 tabs 11/21/21 12/08/21 Rx albuterol sulfate 90 mcg/actuation 2 puff inhalation 6XD PRN 11/22/21 12/08/21 Rx aerosol inhaler (Ventolin HFA) shortness of breath or wheezing #6.7 grams cholecalciferol (vitamin D3) 25 25 mcg PO DAILY 12/01/21 12/08/21 History mcg (1,000 unit) capsule mecobalamin (vitamin B12) 1,000 1,000 mcg sublingual DAILY 12/01/21 12/08/21 History mcg disintegrating tablet,sublingual prednisone 5 mg tablet 10 mg PO QPM 12/01/21 12/08/21 History ipratropium 0.5 mg-albuterol 3 mg 3 ml inhalation Q6H PRN wheezing 12/05/21 12/12/21 Rx (2.5 mg base)/3 mL nebulization #360 mL soln nebulizers #1 ea 12/05/21 12/12/21 Rx fluticasone furoate 100 1 inh inhalation DAILY #60 ea 12/07/21 12/12/21 Rx mcg-vilanterol 25 mcg/dose inhalation powder (Breo Ellipta) umeclidinium 62.5 mcg/actuation 1 inh inhalation DAILY #30 ea 12/07/21 12/12/21 Rx blister powder for inhalation (Incruse Ellipta) furosemide 20 mg tablet (Lasix) 20 mg PO DAILY #30 tabs 12/08/21 12/12/21 Rx Patient History Medical History Asthma (04/25/12) Stable and controlled Chronic dyspnea Chronic obstructive pulmonary disease STABLE- CONTROLLED- ALBUTEROL USE THIS AM COPD exacerbation Diabetes mellitus, type 2 NIDDM- WELL CONTROLLED AND STABLE Endometrial thickening on ultrasound Hearing deficit NO AIDS Hemoptysis History of breast cancer RIGHT S/P LUMPECTOMY/CHEMO/RADATION (2009)- STABLE AT THIS TIME History of diverticulitis History of liver disease 03/2019 [facility] FOR LIVER ABSCESS- GIVEN ABXS X MONTHS- FOLLOWING WITH HEME FOR MONITORING -RECENT CT SCAN 06/16/19- SHOWS ABSCESS TO BE DECREASED TO 3.5CM (SURGEON IS AWARE) Hx of bladder cancer HAD BCG INSTILLATION - DX: 2012 Left rib fracture (2016) Liver abscess Lower extremity edema Malignant neoplasm of lung Bronch with biopsy on 11/15/21 Mass of lung upcoming biopsy Migraine HX Osteoporosis PMR (polymyalgia rheumatica) CHRONIC Port-A-Cath in place Small cell lung cancer Tobacco abuse Tremor RIGHT HAND Ureteral tumor Vertebral fracture LUMBAR AND THORACIC Surgical History H/O cystoscopy SEVERAL History of appendectomy History of arthroscopy B/L KNEE History of breast biopsy History of bronchoscopy 11/15/21 History of cholecystectomy History of colonoscopy History of elbow surgery RIGHT History of lumpectomy of right breast History of surgery TURBT X 2; TURBT, CYSTO, RIGHT RPG, STENT: 07/11/18: LMA#4 AT [facility] History of surgery LEFT CHEST PORT Nausea and vomiting after administration of anesthetic agent Family History Other Adopted Family history unknown Social History Smoking Status: Former smoker Tobacco Type: Cigarettes Cigarettes Per Day: 6; Smoking End Date: Several weeks ago - ? 6-7 weeks ago; Second Hand Exposure: Yes; Do You Dip or Chew Tobacco: No; Tobacco Cessation Education Requested by Patient: No Hx Alcohol Use: No Hx Substance Use: No Preferred Language: Indonesian Communication Ability: Effective Visual Impairment: No Limitations Hearing Ability: Normal First Crusher Required: No Beliefs That Will Affect Care: None marital status: Single Current Living Situation: Other Current Living Situation Comment: lives with roommate current occupational status: retired Other Information That Helps Us Care for You: No Feels Safe at Home: Yes Safety Concerns: Feels Safe At This Time Childhood Exposure to Second-Hand Smoke: Yes caffeine: No during the past year weight has: remained stable Dental Care, Regularly: Yes Physical Activity Frequency: 1-2 Times per Week Seatbelt Use: always Sunscreen Use: Yes Assistive Devices: Glasses and Oxygen - Continuous Review of Systems Review of Systems: All systems reviewed & are unremarkable except as noted in HPI & below Physical Exam Physical Exam: Constitutional: No acute distress HEENT: EOMI, PERRLA Respiratory system: Decreased air entry bilaterally, no wheeze, rhonchi, mild crackles bilateral lower lobes CVS: S1-S2 positive, no murmurs or gallops, tachycardia Abdomen: Soft, nontender, nondistended, positive bowel sounds x4 Extremities: +2 pulses bilaterally radialis/ dorsalis pedis, no cyanosis, +2 pitting edema bilateral lower extremity Neuro: Awake alert oriented x3 Psych: Normal mood and affect G/U: No Armstrong Skin: no rashes, warm and dry Lymphatic: no cervical or axillary lymphadenopathy Results & Data Results & Data ([facility]) Vital Signs (Past 12 Hours) Vital Signs Temp Pulse Pulse Resp BP BP Pulse Ox 12/25/21 09:44 127 H 22 138/92 95 12/25/21 08:14 124 H 20 120/73 96 12/25/21 07:35 124 H 22 130/85 96 12/25/21 07:04 130 H 24 132/76 98 12/25/21 06:40 127 H 33 H 98 12/25/21 06:30 127 H 27 H 97 12/25/21 06:20 127 H 19 95 12/25/21 06:10 127 H 31 H 95 12/25/21 06:00 153 H 26 H 12/25/21 05:50 129 H 22 12/25/21 05:40 131 H 39 H 136/72 90 12/25/21 05:28 131 H 26 H 134/75 90 12/25/21 05:09 12/25/21 05:11 36.5 C 139 H 24 112/65 96 O2 Del Method O2 Flow Rate 12/25/21 09:44 Nasal Cannula 2 12/25/21 08:14 Nasal Cannula 2 12/25/21 07:35 Nasal Cannula 2 12/25/21 07:04 Nasal Cannula 2 12/25/21 06:40 12/25/21 06:30 12/25/21 06:20 12/25/21 06:10 12/25/21 06:00 12/25/21 05:50 12/25/21 05:40 12/25/21 05:28 12/25/21 05:09 Nasal Cannula 2 12/25/21 05:11 Nasal Cannula 2 Laboratory Results 12/25/21 05:45 12/25/21 05:45 PG Care Time/CCT Total # of Minutes Spent Total Time Spent with Patient: Total time spent is greater than 50% in coordination of care (as documented) at patient's floor/unit and/or counseling patient: [place] [address] Initial Inpt Care Lvl 3 Patient Type New Diagnoses Small cell lung cancer C34.90 COPD exacerbation J44.1 COPD (chronic obstructive pulmonary disease) J44.9 COPD type: unspecified COPD Ex-smoker Z87.891
[2021-12-25 10:51] LABS: Influenza A virus by PCR Negative (Neg); Influenza B virus by PCR Negative (Neg); RSV by PCR Negative (Neg); SARS CoV2 RNA(COVID-19) InHosp NEGATIVE (Negative)
--- NOTE | 2021-12-25 11:54 | Ultrasound Report ---
BILATERAL LOWER EXTREMITY VENOUS DOPPLER CLINICAL HISTORY: edema,cancer,r/o DVT COMPARISON STUDY: Right lower extremity venous Doppler ultrasound January 14, 2019. Left lower ext remity venous Doppler ultrasound September 22, 2009. TECHNIQUE: Sonography of the deep venous system of the bilateral lower extremities was performed. Co mpression and augmentation were evaluated. FINDINGS: The bilateral common femoral, superficial femoral and popliteal veins were compressible. A ugmentation was normal. Flow was shown within the deep calf vessels although calf vessels were subopt imally assessed. There is a 6.8 x 1.1 x 5.1 cm complex right popliteal fluid collection. Note is also made of a 5.5 x 1.1 x 2.9 cm complex left popliteal fluid collection. These contain no color flow. IMPRESSION: 1. No evidence of deep venous thrombus within the bilateral lower extremities although calf vessels s uboptimally visualized. 2. Suspected complex bilateral popliteal cysts. ACT 112: Negative or not required by law. Electronically signed by: Sanchez Begum M.D. 12/25/2021 11:52 AM
[2021-12-25] MEDS ORDERED: GLUCAGON FOR INJ 1 MG VIAL SQ PRN (13:39)
[2021-12-25] MEDS ORDERED: DEXTROSE 50% 50 ML SYRINGE IV PRN (13:39)
[2021-12-25] MEDS ORDERED: CARBOHYDRATES FOR HYPOGLYCEMIA PO PRN (13:39)
[2021-12-25] MEDS ORDERED: ALBUTEROL HFA 8 GM INHALER INH PRN (13:39)
[2021-12-25] MEDS ORDERED: ACETAMINOPHEN 325 MG TAB PO PRN (13:39)
[2021-12-25] MEDS ORDERED: ONDANSETRON INJ 2 MG/ML 2 ML VIAL IV PRN (13:39)
[2021-12-25] MEDS ORDERED: GLUCOSE 40% GEL 15 GM TUBE PO PRN (13:39)
[2021-12-25] MEDS ORDERED: GLUCOSE 10 TAB/TUBE PO PRN (13:39)
[2021-12-25] MEDS ORDERED: ENOXAPARIN INJ 40 MG/0.4 ML SYR SQ SCH (14:00)
[2021-12-25] MEDS: INSULIN ASPART PER UNIT SC SCH ×3 (14:21→20:46)
[2021-12-25] MEDS: UMECLIDINIUM BROMIDE 62.5MCG/BLISTER 7 PUFFS/INHALER INH SCH (14:26)
[2021-12-25] MEDS: FLUTICASONE/VILANTEROL 100/25MCG 14 PUFFS/INHALER INH SCH (14:26)
[2021-12-25] MEDS: methylPREDNISolone 40 MG in SYRINGE 0 ML IV SCH ×2 (14:27→19:49)
[2021-12-25] MEDS: Patient's HEIGHT &/or WEIGHT Needed SCH ×2 (14:39→15:20)
[2021-12-25] MEDS: ALBUT/IPRATROP 3MG/0.5MG NEB 3 ML VIAL INH SCH ×3 (15:42→19:10)
[2021-12-25] MEDS ORDERED: FILGRASTIM 480 MCG/1.6 ML VIAL SC ONE (17:28)
[2021-12-25] MEDS: Heparin IV Adult Wt-Based Standard *NO* Bolus Protocol IV SCH ×8 (18:04→22:48)
[2021-12-25] MEDS ORDERED: DOXYCYCLINE HYCLATE 100 MG in DEXTROSE 5% 100 ML IV SCH (19:00)
[2021-12-25] MEDS ORDERED: HEPARIN SODIUM/DEXTROSE 25,000 UNITS/500 ML BAG IV SCH (20:00)
--- NOTE | 2021-12-25 20:37 | Electrocardiogram Report ---
Test Reason : Blood Pressure : / mmHG Vent. Rate : 139 BPM Atrial Rate : 139 BPM P-R Int : 146 ms QRS Dur : 106 ms QT Int : 306 ms P-R-T Axes : 071 -41 033 degrees QTc Int : 465 ms Sinus tachycardia with Premature atrial complexes Left axis deviation Incomplete right bundle branch block Abnormal ECG When compared with ECG of 04-DEC-2021 14:15, Premature atrial complexes are now Present Confirmed by Quinton De Souza ([id number]) on 12/25/2021 8:37:20 PM Referred By: Confirmed By:Quinton De Souza
[2021-12-25] MEDS: PANTOprazole 40 MG TAB PO SCH (20:45)
[2021-12-25] MEDS: DOXYCYCLINE HYCLATE 100 MG CAP PO SCH (20:45)
[2021-12-25] MEDS: NORTRIPTYLINE HCL 25 MG CAP PO SCH (20:45)
[2021-12-25] MEDS: FOLIC ACID 1 MG TAB PO SCH (20:46)
[2021-12-25] MEDS: guaiFENesin 600 MG TABCR PO SCH (20:46)
[2021-12-25] MEDS: LANTUS PER UNIT CHARGE SQ SCH (20:47)
[2021-12-25] MEDS ORDERED: CELECOXIB 100 MG CAP PO SCH (21:00)
[2021-12-26 03:04] LABS: Appearance Urine Clear (Clear); Bacteria Urine Automated 2+ (Negative); Bilirubin Urine Negative (Negative); Blood Urine Trace (Negative); Cast Urine Automated 0 /lpf (0-5); Color Urine Orange; Epithelial Cell Urine Auto 20-30 /lpf (0-5); Glucose Urine UA 2+ (Negative); Ketones Urine Negative (Negative); Leukocyte Esterase Urine Negative (Negative); Nitrite Urine Positive (Negative); Protein Urine Negative (Negative); RBC Urine Automated 0-4 /hpf (0-4); Urobilinogen Urine Negative (Negative)
[2021-12-26] MEDS: methylPREDNISolone 40 MG in SYRINGE 0 ML IV SCH ×2 (05:06→14:34)
[2021-12-26 06:25] LABS: Partial Thromboplastin Ratio 1.4; Partial Thromboplastin Time 37.3 Seconds (21.0-31.0)
[2021-12-26 06:41] LABS: BUN Creatinine Ratio 22.6 (10-20); Creatinine Clr Calc Pharmacy 53.1 ml/min; Est GFR (African American) 77.2 ml/min; Est GFR (Non-African American) 66.6 ml/min; Potassium 4.4 mmol/L (3.5-5.1)
[2021-12-26 06:42] LABS: Hematocrit (blood only) 31.7 % (34.1-44.9); Hemoglobin 10.1 g/dl (12.0-16.0); Mean Corpuscular Hgb Conc 31.9 g/dL (32.0-36.0); Mean Corpuscular Volume 91.1 fL (80.0-100.0); Mean Platelet Volume 10.4 fL (9.4-12.3); Platelet Count 84 K/uL (130-400); RDW Coefficient of Variation 13.7 % (11.5-14.5); RDW Standard Deviation 45.9 fL (36.4-46.3); Red Blood Count 3.48 M/uL (3.93-5.22); White Blood Count 0.68 K/ul (4.8-10.8)
[2021-12-26] MEDS ORDERED: HEPARIN SOD (PORCINE) 1000 UNIT/ML IV ONE ×2 (06:45→15:09)
[2021-12-26 06:48] LABS: Immature Granulocytes # (auto) 0.05 K/uL (0.00-0.02); Immature Granulocytes % (auto) 7.4 %; Lymphocytes # (auto) 0.19 K/uL (1.2-3.4); Lymphocytes % (auto) 27.9 %; Monocytes # (auto) 0.27 K/uL (0.24-0.82); Monocytes % (auto) 39.7 %; Neutrophils # (auto) 0.17 K/uL (1.4-6.5)
[2021-12-26] MEDS: ALBUT/IPRATROP 3MG/0.5MG NEB 3 ML VIAL INH SCH ×4 (07:26→19:17)
[2021-12-26 07:57] LABS: Estimated Average Glucose 148 mg/dl; Hemoglobin A1C 6.8 % (4.5-5.6)
[2021-12-26] MEDS: INSULIN ASPART PER UNIT SC SCH ×4 (08:51→20:32)
[2021-12-26] MEDS: CYANOCOBALAMIN (B-12) 500 MCG TABLET PO SCH (08:57)
[2021-12-26] MEDS: guaiFENesin 600 MG TABCR PO SCH ×2 (08:58→20:30)
[2021-12-26] MEDS: CHOLECALCIFEROL 1,000 UNITS 25 MCG TAB PO SCH (08:58)
[2021-12-26] MEDS: DOXYCYCLINE HYCLATE 100 MG CAP PO SCH ×2 (08:58→20:30)
[2021-12-26] MEDS: FLUTICASONE/VILANTEROL 100/25MCG 14 PUFFS/INHALER INH SCH (08:59)
[2021-12-26] MEDS: UMECLIDINIUM BROMIDE 62.5MCG/BLISTER 7 PUFFS/INHALER INH SCH (08:59)
[2021-12-26] MEDS: LANTUS PER UNIT CHARGE SQ SCH ×2 (09:05→20:32)
--- NOTE | 2021-12-26 09:28 | XCELERA ---
[id number]
[2021-12-26] MEDS: dilTIAZem HCl 60 MG TAB PO SCH ×3 (09:56→20:30)
[2021-12-26 13:29] LABS: Partial Thromboplastin Ratio 1.3; Partial Thromboplastin Time 35.3 Seconds (21.0-31.0)
[2021-12-26] MEDS ORDERED: HEPARIN IV BOLUS 2,000 UNITS in SYRINGE 0 ML IV ONE (15:30)
--- NOTE | 2021-12-26 15:31 | Nuclear Medicine Report ---
NUCLEAR PULMONARY PERFUSION SCAN CLINICAL HISTORY: Hypoxia. COMPARISON STUDY: Chest x-ray dated 12/25/2021. Chest CT dated 11/15/2021. TECHNIQUE: A nuclear perfusion scan of both lungs were obtained following the IV administration of 5. 3 mCi of technetium 99m MAA. Images were acquired in the anterior, posterior, and oblique projections . FINDINGS: A chest x-ray performed 12/25/2021 shows elevation of the left hemidiaphragm and bibasilar atelectasis . A left subclavian central venous infusion port is in place. Perfusion of the lungs is heterogeneous with no segmental filling defects identified typical for pulm onary embolus. There is elevation of the left hemidiaphragm. IMPRESSION: No perfusion defect is identified to suggest pulmonary embolus. ACT 112: Negative or not required by law. Electronically signed by: Zaki Brian M.D. 12/26/2021 3:29 PM
--- NOTE | 2021-12-26 15:32 | Hospitalist Progress Note ---
Date of Service December 26, 2021 Assessment & Plan (1) Acute and chronic respiratory failure: Plan: Supplemental oxygen per nasal cannula to maintain saturation greater than 90%. Lasix diuresis. Continue parenteral steroid therapy and oral doxycycline. Appreciate pulmonary medicine consultation. (2) Sinus tachycardia: Plan: Appears to be sinus tachycardia but she is at high risk for multifocal atrial tachycardia or SVT considering her underlying lung condition. Diltiazem started to help with heart rate and blood pressure control. Continue telemetry. Rule out underlying pulmonary embolism. (3) COPD exacerbation: Plan: Continue parenteral steroid therapy. Oral doxycycline. Pulmonary medicine consultation appreciated (4) Lower extremity edema: Plan: IV Lasix ordered. Monitor intake and output. Armstrong catheter ordered for hygiene . Need to rule out right heart failure. Venous Dopplers of both legs negative for DVT (5) Small cell lung cancer: Plan: Recently diagnosed and started on chemotherapy and radiation Received etoposide and cisplatin on 12/11-12/13-this is scheduled for every 3 weeks Completed 5 days of radiation therapy on 12/23. Oncology consultation requested. Chemotherapy is likely cause of current pancytopenia (6) Hypomagnesemia: Plan: Replacement therapy ordered. Serial lab studies. (7) Pancytopenia due to antineoplastic chemotherapy: Plan: Serial lab studies. Oncology consultation requested. We will transfuse as needed (8) Osteoporosis: Plan: With vertebral compression fractures, secondary to chronic prednisone use On Fosamax as an outpatient Continue vitamin D (9) PMR (polymyalgia rheumatica): Plan: On chronic prednisone 10 mg a day Hold home prednisone while on IV Solu-Medrol Hold Celebrex for vertebral compression fractures while on anticoagulation (10) Diabetes mellitus, type 2: Plan: Patient requests that she not be placed on a diabetic diet Give NovoLog sliding scale and titrate up as needed Lantus 5 units SQ twice daily was also started due to hyperglycemia from steroids Hold home metformin until no further x-rays with contrast needed (11) GERD (gastroesophageal reflux disease): Plan: Continue PPI Plan DVT prophylaxis-currently on heparin drip Disposition-eventual discharge back to home Admission and Anticipated Discharge Date Admission Date: December 25, 2021 Subjective Alert and oriented. Attempted chest CTA failed today due to IV problems. Will obtain VQ scan to rule out underlying pulmonary embolism and discontinue heparin drip if this study is negative. We will consult oncology due to her chemotherapy induced pancytopenia. IV Lasix ordered for her edema which could be due to right heart failure related to the severity of her underlying COPD and chronic respiratory failure. Armstrong catheter ordered with IV Lasix. Venous Doppler both legs negative for DVT. She remains on intravenous Solu-Medrol and oral doxycycline Review of Systems Review of Systems: Constitutional-no fever or chills ENT-no blurred vision, no double vision, no epistaxis, no sore throat Respiratory-nonproductive cough. Shortness of breath with exertion. Wheezing. Cardiac-no palpitations, no chest pain, no syncope GI-no nausea, vomiting, diarrhea, melena, hematochezia -no urinary retention, no urinary incontinence, no dysuria, no hematuria Musculoskeletal- peripheral edema noted which is new Skin-no bruising, no rashes, no pruritus Neuro-no isolated weakness, no paresthesia, no weakness Psych-no depression, no anxiety Physical Exam Physical Exam: General-alert and oriented x3, no fevers, no chills HEENT-head atraumatic and normocephalic, pupils equal and reactive to light, extraocular muscles intact Neck-no lymphadenopathy or thyromegaly, trachea midline Chest-diminished breath sounds bilaterally. Bilateral expiratory wheezes. Midline rhonchi with forced cough. No dullness to percussion Cardiac-regular rate and rhythm, normal S1 and S2, no murmurs Abdomen-normal bowel sounds, nontender, no hepatosplenomegaly Extremities-2+ pitting edema bilateral lower extremities below the knees Neuro-cranial nerves II through XII intact, motor and sensory function within normal limits, strength symmetrical , no focal deficits Psych-normal affect, normal mood Results & Data Results & Data ([facility]) Vital Signs (Past 12 Hours) Vital Signs Temp Pulse Pulse Resp BP Pulse Ox O2 Del Method 12/26/21 11:44 36.8 C 121 H 21 118/69 94 Nasal Cannula 12/26/21 11:11 129 H 20 92 Nasal Cannula 12/26/21 09:54 122 H 12/26/21 09:50 Nasal Cannula 12/26/21 08:11 36.6 C 131 H 22 172/98 H 96 Nasal Cannula 12/26/21 04:34 36.4 C L 132 H 18 178/97 H 97 Nasal Cannula O2 Flow Rate 12/26/21 11:44 2 12/26/21 11:11 2 12/26/21 09:54 12/26/21 09:50 2 12/26/21 08:11 2 12/26/21 04:34 2 Laboratory Results 12/26/21 05:29 12/26/21 05:29 12/26/21 05:29 12/26/21 05:29 PG Care Time/CCT Total # of Minutes Spent Total Time Spent with Patient: Total time spent is greater than 50% in coordination of care (as documented) at patient's floor/unit and/or counseling patient: Coding Level of Care Code 76974 Subseq Hosp Care Lvl 3 Diagnoses Acute and chronic respiratory failure J96.20 Sinus tachycardia R00.0 COPD exacerbation J44.1 Lower extremity edema R60.0 Small cell lung cancer C34.90 Hypomagnesemia E83.42 Pancytopenia due to antineoplastic chemotherapy D61.810; T45.1X5A Osteoporosis M81.0 PMR (polymyalgia rheumatica) M35.3 Diabetes mellitus, type 2 E11.9 GERD (gastroesophageal reflux disease) K21.9
--- NOTE | 2021-12-26 16:36 | CT Scan Report ---
CT OF THE CHEST WITHOUT IV CONTRAST CLINICAL HISTORY: hypoxemia, small cell lung cancer, chemo toxicity COMPARISON STUDY: Chest radiograph December 17, 2021. Chest CT November 15, 2021. PET/CT November 07, 2021. Tr eatment planning CT December 02, 2021. CT DOSE: 434.68 mGy.cm TECHNIQUE: Axial images of the chest were obtained without IV contrast. Images were reviewed in the axial, sagittal, and coronal planes. IV contrast was not administered for this examination. Automat ed exposure control was utilized for the study. A dose lowering technique was utilized adhering to t he principles of ALARA. FINDINGS: A left subclavian [id number] is in place. The largest left upper lobe mass with associa jovani lymphangitic spread of tumor has significantly decreased in size since chest CT of November 01, [address] a [address] treatment planning CT of December 02, 2021. Residual lesions within the left upper lobe measure 4.5 x 3.4 cm in aggregate. Left hilar and mediastinal lymphadenopathy has also significantly improved sinc e prior CTs. Prevascular node now measures approximately 2.8 x 2.2 cm. This previously measured 6.8 x 3.9 cm. No new sites of lymphadenopathy are present. Linear subpleural opacities reflect atelectasis . There is no consolidation to suggest pneumonia. There is no significant pleural effusion. No pneumo thorax is present. Multiple thoracic spine compression fractures are unchanged. No suspicious lesions within the bony thorax. Cardiomegaly is noted with extensive coronary artery calcification. There is no pericardial effusion. Visualized portions of the upper abdomen demonstrate enhancement of the kid neys with patchy nephrograms. This enhancement is likely from recent contrast-enhanced MRI. IMPRESSION: 1. Significant interval decrease in size of the left upper lobe mass and mediastinal and left hilar lymphadenopathy since chest CT of November 01, [address] of December 02, 2021. This repr esents a partial, but significant, treatment response. 2. No new sites of disease identified within the chest. 3. No consolidation to suggest pneumonia. ACT 112: Negative or not required by law. Electronically signed by: Sanchez Begum M.D. 12/26/2021 4:35 PM
--- NOTE | 2021-12-26 16:58 | Pulmonology Progress Note ---
Date of Service December 26, 2021 Assessment & Plan (1) Acute and chronic respiratory failure: (2) Small cell lung cancer: (3) COPD exacerbation: Plan Impression: 76-year-old female with COPD and newly diagnosed small cell lung cancer admitted with shortness of breath and tachycardia as well as hypoxemia. Perfusion scan showed no evidence of filling defect. CT scan showed no evidence of parenchymal lung disease concerning for radiation or chemical pneumonitis. Suspect her symptoms are likely related to exacerbation of COPD coinciding with the patient stopping smoking within the last 10 to 14 days. Recommendations: 1. Acute exacerbation of chronic obstructive pulmonary disease: Change prednisone to 20 mg twice a day with plans for 5-day burst and then decrease down to her 10 mg daily dose for her polymyalgia rheumatica. Continue DuoNebs 4 times a day. Patient is also on Breo and Incruse. Depending on her clinical response, could consider the addition of chronic azithromycin therapy. She is on doxycycline for acute exacerbation of COPD currently. 2. Hypoxemic respiratory failure: Continue supplemental oxygen titrated to keep saturations at or above 88%. She has oxygen at home. 3. Systemic anticoagulation can be discontinued as the perfusion scan was ne gative. DVT prophylaxis per ACC P guidelines recommended. Continue diuretics. Currently receiving Lasix 40 mg IV twice a day 4. I suspect the patient can discharge to home when she can ambulate to the restroom and back without becoming significantly dyspneic. She can follow-up in the outpatient setting with Dr. Cunha as previously scheduled. Admission and Anticipated Discharge Date Admission Date: December 25, 2021 Subjective Patient seen and examined. EMR reviewed. Discussed with off going metal handler. The patient thinks her breathing is a little bit better. She continues to cough and expectorate small amounts of phlegm. She continues to wheeze. She has lower extremity edema. No fevers chills or night sweats. No hemoptysis. No syncope or presyncope. No chest pain or palpitations Review of Systems Review of Systems: All systems reviewed & are unremarkable except as noted in Subjective Physical Exam Physical Exam: Constitutional: No acute distress HEENT: EOMI, PERRLA Respiratory system: Decreased air entry bilaterally, no wheeze, rhonchi, mild crackles bilateral lower lobes CVS: S1-S2 positive, no murmurs or gallops, tachycardia Abdomen: Soft, nontender, nondistended, positive bowel sounds x4 Extremities: +2 pulses bilaterally radialis/ dorsalis pedis, no cyanosis, +2 pi tting edema bilateral lower extremity Neuro: Awake alert oriented x3 Psych: Normal mood and affect G/U: No Armstrong Skin: no rashes, warm and dry Lymphatic: no cervical or axillary lymphadenopathy Results & Data Results & Data ([facility]) Vital Signs (Past 12 Hours) Vital Signs Temp Pulse Pulse Pulse Resp BP Pulse Ox 12/26/21 16:50 118 H 12/26/21 16:24 36.5 C 108 H 19 129/72 93 12/26/21 15:46 113 H 20 96 12/26/21 11:44 36.8 C 121 H 21 118/69 94 12/26/21 11:11 129 H 20 92 12/26/21 09:54 122 H 12/26/21 09:50 12/26/21 08:11 36.6 C 131 H 22 172/98 H 96 O2 Del Method O2 Flow Rate 12/26/21 16:50 12/26/21 16:24 Room Air 12/26/21 15:46 Nasal Cannula 2 12/26/21 11:44 Nasal Cannula 2 12/26/21 11:11 Nasal Cannula 2 12/26/21 09:54 12/26/21 09:50 Nasal Cannula 2 12/26/21 08:11 Nasal Cannula 2 Critical Care Results & Data Vital Signs (Past 12 Hours) Vital Signs Temp Pulse Pulse Pulse Resp BP Pulse Ox 12/26/21 16:50 118 H 12/26/21 16:24 36.5 C 108 H 19 129/72 93 12/26/21 15:46 113 H 20 96 12/26/21 11:44 36.8 C 121 H 21 118/69 94 12/26/21 11:11 129 H 20 92 12/26/21 09:54 122 H 12/26/21 09:50 12/26/21 08:11 36.6 C 131 H 22 172/98 H 96 O2 Del Method O2 Flow Rate 12/26/21 16:50 12/26/21 16:24 Room Air 12/26/21 15:46 Nasal Cannula 2 12/26/21 11:44 Nasal Cannula 2 12/26/21 11:11 Nasal Cannula 2 12/26/21 09:54 12/26/21 09:50 Nasal Cannula 2 12/26/21 08:11 Nasal Cannula 2 Lab & Micro Results (Past 24 Hours) RBC 3.48 M/uL (3.93-5.22) L 12/26/21 WBC 0.68 K/ul (4.8-10.8) L* 12/26/21 Hgb 10.1 g/dl (12.0-16.0) L 12/26/21 Hct 31.7 % (34.1-44.9) L 12/26/21 MCV 91.1 fL (80.0-100.0) 12/26/21 MCH 29.0 pg (25.0-34.0) 12/26/21 MCHC 31.9 g/dL (32.0-36.0) L 12/26/21 RDW Standard Deviation 45.9 fL (36.4-46.3) 12/26/21 RDW Coefficient of Variation 13.7 % (11.5-14.5) 12/26/21 Plt Count 84 K/uL (130-400) L 12/26/21 MPV 10.4 fL (9.4-12.3) 12/26/21 Neutrophils (%) (Auto) 25.0 % 12/26/21 Lymphocytes (%) (Auto) 27.9 % 12/26/21 Monocytes # (Auto) 0.27 K/uL (0.24-0.82) 12/26/21 Eosinophils # (Auto) 0.00 K/uL (0-0.50) 12/26/21 Immature Granulocyte % (Auto) 7.4 % 12/26/21 Neutrophils # (Auto) 0.17 K/uL (1.4-6.5) L* 12/26/21 Lymphocytes # (Auto) 0.19 K/uL (1.2-3.4) L 12/26/21 Monocytes # (Auto) 0.27 K/uL (0.24-0.82) 12/26/21 Eosinophils # (Auto) 0.00 K/uL (0-0.50) 12/26/21 Basophils # (Auto) 0.00 K/uL (0-0.2) 12/26/21 Immature Granulocyte # (Auto) 0.05 K/uL (0.00-0.02) H 12/26 Na 138 mmol/L (136-145) 12/26/21 K 4.4 mmol/L (3.5-5.1) 12/26/21 Cl 102 mmol/L (98-107) 12/26/21 CO2 30 mmol/L (21-32) 12/26/21 Anion Gap 6 (3-11) 12/26/21 BUN 19 mg/dl (6-23) 12/26/21 Creatinine 0.84 mg/dl (0.6-1.2) 12/26/21 Estimated GFR ( Amer) 77.2 ml/min 12/26/21 Estimated GFR (Non-Af Amer) 66.6 ml/min 12/26/21 BUN/Creatinine Ratio 22.6 (10-20) H 12/26/21 Glu 165 mg/dl (70-99(Fasting)) H 12/26/21 Ca 9.0 mg/dl (8.5-10.1) 12/26/21 Mg 2.0 mg/dl (1.7-2.4) 12/26/21 05:29 Calcium Level 9.0 mg/dl (8.5-10.1) 12/26/21 05:29 Diagnostic Findings (Past 24 Hours) Pulmonary Perfusion Imaging 12/26/21 12:01 NUCLEAR PULMONARY PERFUSION SCAN CLINICAL HISTORY: Hypoxia. COMPARISON STUDY: Chest x-ray dated 12/25/2021. Chest CT dated 11/15/2021. TECHNIQUE: A nuclear perfusion scan of both lungs were obtained following the IV administration of 5.3 mCi of technetium 99m MAA. Images were acquired in the anterior, posterior, and oblique projections. FINDINGS: A chest x-ray performed 12/25/2021 shows elevation of the left hemidiaphragm and bibasilar atelectasis. A left subclavian central venous infusion port is in place. Perfusion of the lungs is heterogeneous with no segmental filling defects identified typical for pulmonary embolus. There is elevation of the left hemidiaphragm. IMPRESSION: No perfusion defect is identified to suggest pulmonary embolus. ACT 112: Negative or not required by law. Electronically signed by: Zaki Brian M.D. 12/26/2021 3:[address] 12/26/21 12:38 CT OF THE CHEST WITHOUT IV CONTRAST CLINICAL HISTORY: hypoxemia, small cell lung cancer, chemo toxicity COMPARISON STUDY: Chest radiograph December 17, 2021. Chest CT November 15, 2021. PET/CT November 07, 2021. Treatment planning CT December 02, 2021. CT DOSE: 434.68 mGy.cm TECHNIQUE: Axial images of the chest were obtained without IV contrast. Images were reviewed in the axial, sagittal, and coronal planes. IV contrast was not administered for this examination. Automated exposure control was utilized for the study. A dose lowering technique was utilized adhering to the principles of ALARA. FINDINGS: A left subclavian [id number] is in place. The largest left upper lobe mass with associated lymphangitic spread of tumor has significantly decreased in size since chest CT of November 01, [address] of December 02, 2021. Residual lesions within the left upper lobe measure 4.5 x 3.4 cm in aggregate. Left hilar and mediastinal lymphadenopathy has also significantly improved since prior CTs. Prevascular node now measures approximately 2.8 x 2.2 cm. This previously measured 6.8 x 3.9 cm. No new sites of lymphadenopathy are present. Linear subpleural opacities reflect atelectasis. There is no consolidation to suggest pneumonia. There is no significant pleural effusion. No pneumothorax is present. Multiple thoracic spine compression fractures are unchanged. No suspicious lesions within the bony thorax. Cardiomegaly is noted with extensive coronary artery calcification. There is no pericardial effusion. Visualized portions of the upper abdomen demonstrate enhancement of the kidneys with patchy nephrograms. This enhancement is likely from recent contrast- enhanced MRI. IMPRESSION: 1. Significant interval decrease in size of the left upper lobe mass and mediastinal and left hilar lymphadenopathy since chest CT of November 01, [address] of December 02, 2021. This represents a partial, but significant, treatment response. 2. No new sites of disease identified within the chest. 3. No consolidation to suggest pneumonia. ACT 112: Negative or not required by law. Electronically signed by: Sanchez Begum M.D. 12/26/2021 4:35 PM I & O Totals 24 Hours 12/25/21 12/26/21 12/27/21 06:59 06:59 06:59 Intake Total 2804.9 / 2804.9 772.8 / 772.8 Output Total 1400 / 1400 400 / 400 Balance 1404.9 / 1404.9 372.8 / 372.8 Cumulative 12/25/21 05:08 thru 12/26/21 14:30 Intake Total 3577.7 Output Total 1800 Balance 1777.7 RT Ventilator Mngmt (Last Documented) Ventilator Ordered Settings Respiratory Rate 19 12/26/21 16:24 Ventilator - PT Measurements Respiratory Rate 19 PG Care Time/CCT Total # of Minutes Spent Total Time Spent with Patient: Total time spent is greater than 50% in coordination of care (as documented) at patient's floor/unit and/or counseling patient: Coding Level of Care Code 76564 Subseq Hosp Care Lvl 3 Diagnoses Acute and chronic respiratory failure J96.20 Small cell lung cancer C34.90 COPD exacerbation J44.1
[2021-12-26] MEDS ORDERED: HEPARIN 25000 UNIT/500 ML D5W IV ONE (17:20)
[2021-12-26] MEDS: PANTOprazole 40 MG TAB PO SCH (20:29)
[2021-12-26] MEDS: FUROSEMIDE 40 MG/4 ML VIAL IV SCH (20:29)
[2021-12-26] MEDS: FOLIC ACID 1 MG TAB PO SCH (20:30)
[2021-12-26] MEDS: NORTRIPTYLINE HCL 25 MG CAP PO SCH (20:30)
[2021-12-26] MEDS: predniSONE 20 MG TAB PO SCH (20:31)
[2021-12-27 06:39] LABS: BUN Creatinine Ratio 21.6 (10-20); Creatinine Clr Calc Pharmacy 46.5 ml/min; Est GFR (African American) 64.8 ml/min; Est GFR (Non-African American) 55.9 ml/min; Potassium 4.1 mmol/L (3.5-5.1)
[2021-12-27] MEDS: ALBUT/IPRATROP 3MG/0.5MG NEB 3 ML VIAL INH SCH ×4 (07:04→19:20)
[2021-12-27 07:26] LABS: Hematocrit (blood only) 33.2 % (34.1-44.9); Hemoglobin 10.6 g/dl (12.0-16.0); Mean Corpuscular Hemoglobin 29.4 pg (25.0-34.0); Mean Corpuscular Hgb Conc 31.9 g/dL (32.0-36.0); Mean Corpuscular Volume 92.2 fL (80.0-100.0); Mean Platelet Volume 10.1 fL (9.4-12.3); Nucleated RBC # (auto) 0.02 K/uL (0-0); Nucleated RBC % (auto) 0.7 %; Platelet Count 136 K/uL (130-400); RDW Standard Deviation 47.4 fL (36.4-46.3); White Blood Count 2.93 K/ul (4.8-10.8)
[2021-12-27 07:57] LABS: ALC (manual) 0.44 K/uL (1.2-3.4); ANC (manual) 1.73 K/uL (1.4-6.5); Blast # (manual) 0.03 K/uL (0-0); Blast Cells % (manual) 1 %; Lymphocytes # (manual) 0.44 K/uL (1.2-3.4); Lymphocytes % (manual) 15 %; Metamyelocytes # (manual) 0.21 K/uL (0-0); Metamyelocytes % (manual) 7 %; Monocytes # (manual) 0.35 K/uL (0.24-0.82); Monocytes % (manual) 12 %; Myelocytes # (manual) 0.18 K/uL (0-0); Myelocytes % (manual) 6 %; Neutrophils # (manual) 1.73 K/uL (1.4-6.5); Neutrophils % (manual) 59 %; Promyelocytes # (manual) 0.03 K/uL (0-0); Promyelocytes % (manual) 1 %; Toxic Granulation 1+
--- NOTE | 2021-12-27 08:26 | Radiation OncologyConsultation ---
Date of Consultation December 27, 2021 Assessment & Plan (1) Small cell lung cancer: Plan This is a 76-year-old white female with a previous history of breast cancer who had received adjuvant chemotherapy and radiation in 2010. She is currently under treatment for small cell cancer of the lung. Staged at T3N2M0. Stage IIIb. Patient began combined radiation and chemotherapy 12/12/2021. Chemotherapy comprised of etopside and carboplatin. She has received 10 of a planned 30 fractions of radiation therapy. She was admitted for an acute exacerbation of COPD. CT scan reveals improvement with her current therapy. There is no sign of radiation pneumonia. Her neutropenia has improved. We will plan to bring her down and resume her radiation therapy. She was in agreement with this plan. Supervising Physician Co-Signing Physician Notes I have reviewed all the relevant clinical information with mid-level provider. The patient can be brought down for radiation therapy. History of Present Illness Reason for Consultation: Currently undergoing radiation therapy for small cell carcinoma of the lung. Requesting Physician: Dr. Yanez Attending Physician: Stewart Yanez MD History of Present Illness 02/09/2010. Right breast lumpectomy and sentinel lymph node biopsy. pT2N0. 2009 to 2010. Adjuvant chemotherapy under the supervision of Dr. Velez. 09/29/2010 to 11/17/2010. Adjuvant radiation therapy to right breast for right breast cancer. 6120 cGy. Treated at [facility]. 07/19/2021. Medical oncology follow-up with HAMLET Nascimento at [facility]. Repeat staging scans. Continue cystoscopy with urology. Return to clinic in several months. 10/19/2021. Chest x-ray. IMPRESSION:. Left hilar mass/pathologic adenopathy is noted in conjunction with progressively worsened postobstructive pneumonitis of the left upper lobe. Pulmonology consultation is recommended along with possible bronchoscopy and tissue sampling. 11/01/2021. CT of chest. IMPRESSION: 1. Left hilar mass versus pathologic lymphadenopathy measures up to 4.3 cm. Additionally, there is prevascular conglomerate adenopathy measuring up to 6.8 cm. Findings are suggestive of primary bronchogenic malignancy with lymphatic metastasis. Pulmonology consultation with possible bronchoscopy recommended. 2. The left hilar disease encases the adjacent pulmonary arteries and bronchi with several opacified left upper lobe bronchi. There is resultant consolidation of the left lung apex suggestive of postobstructive pneumonitis with probable associated lymphangitic carcinomatosis. 3. No pleural effusion or right-sided pulmonary metastatic disease identified. 4. Healing subacute posterior right rib fractures with healing T11, T12 and L1 subacute compression deformities. 11/07/2021. PET/CT. IMPRESSION: 1. Redemonstration of extensive left hilar david disease with lymphangitic carcinomatosis in the left upper lung. 2. Subacute compression fractures at T11 and T12 with mild, likely physiologic FDG activity. 11/15/2021. Bronchoscopy with EBUS FNA biopsy. Lymph node, station 11 L. Metastatic small cell carcinoma. Biopsy of left upper lobe mass: Small cell carcinoma. 11/23/2021. MRI brain. IMPRESSION: 1. No evidence for intracranial metastatic disease. 2. A 6 mm extra-axial enhancing focus within the left high convexity. This favors a meningioma. Follow-up brain MRI recommended to ensure stability. 12/12/2021. Initiation of combined radiation and chemotherapy. Chemotherapy comprised of etoposide and carboplatin. 12/25/2021. Admission for acute exacerbation of COPD. Patient developed increasing shortness of breath and then wheezing. She presented to the emergency room for evaluation. She was found to be neutropenic with a total white count of 590. She was admitted for further observation and treatment. 12/26/2021. Chest CT. Significant interval decrease in size of the left upper lobe mass and mediastinal and left hilar lymphadenopathy since November 01, 2021. No new sites of disease identified within the chest. Allergies Allergy/AdvReac Type Severity Reaction Status Date / Time castor oil Allergy Severe "TAXANES" Verified 12/08/21 14:54 CAUSE DYSPNEA, RASH, ELEVATED BP docetaxel [From Taxotere] Allergy Severe "TAXANES" Verified 12/08/21 14:54 CAUSE DYSPNEA, RASH, ELEVATED BP paclitaxel Allergy Severe "TAXANES" Verified 12/08/21 14:54 CAUSE DYSPNEA, RASH, ELEVATED BP trimethoprim [From Bactrim] Allergy Severe Anaphylaxis Verified 12/08/21 14:54 Iodinated Contrast Media Allergy Intermediate HIVES/ITCHI Verified 12/08/21 14:54 NG nitrofurantoin Allergy Intermediate CHEST Verified 12/08/21 14:54 PAIN, DYSPNEA Sulfa (Sulfonamide Allergy Intermediate HIVES, Verified 12/08/21 14:54 Antibiotics) ITCHINESS, SHORTNESS OF BREATH phenazopyridine AdvReac Intermediate N/V Verified 12/08/21 14:54 codeine AdvReac COLD Verified 12/25/21 08:17 SWEAT, THINGS START SPINNING, NAUSEA Home Medications Medication Instructions Recorded Confirmed Type metformin 850 mg tablet 850 mg PO QPM 07/05/21 12/08/21 History nortriptyline 25 mg capsule 25 mg PO HS #90 caps 11/04/21 12/08/21 Rx celecoxib 100 mg capsule (Celebrex) 100 mg PO QPM 11/09/21 12/08/21 History omeprazole 20 mg capsule,delayed 20 mg PO QPM 11/09/21 12/08/21 History release alendronate 70 mg tablet (Fosamax) 70 mg PO WEEKLY #4 tabs 11/21/21 12/08/21 Rx folic acid 1 mg tablet 1 mg PO QPM #30 tabs 11/21/21 12/08/21 Rx albuterol sulfate 90 mcg/actuation 2 puff inhalation 6XD PRN 11/22/21 12/08/21 Rx aerosol inhaler (Ventolin HFA) shortness of breath or wheezing #6.7 grams cholecalciferol (vitamin D3) 25 25 mcg PO DAILY 12/01/21 12/08/21 History mcg (1,000 unit) capsule mecobalamin (vitamin B12) 1,000 1,000 mcg sublingual DAILY 12/01/21 12/08/21 History mcg disintegrating tablet,sublingual ipratropium 0.5 mg-albuterol 3 mg 3 ml inhalation Q6H PRN wheezing 12/05/21 12/12/21 Rx (2.5 mg base)/3 mL nebulization #360 mL soln nebulizers #1 ea 12/05/21 12/12/21 Rx fluticasone furoate 100 1 inh inhalation DAILY #60 ea 12/07/21 12/12/21 Rx mcg-vilanterol 25 mcg/dose inhalation powder (Breo Ellipta) umeclidinium 62.5 mcg/actuation 1 inh inhalation DAILY #30 ea 12/07/21 12/12/21 Rx blister powder for inhalation (Incruse Ellipta) furosemide 20 mg tablet (Lasix) 20 mg PO DAILY #30 tabs 08/11/22 08/15/22 Rx diltiazem HCl 240 mg 240 mg PO QAM #30 caps 12/28/21 Rx capsule,extended release 24 hr prednisone 10 mg tablet See Rx Instructions .Route 12/28/21 Rx .COMPLEX #30 tabs Patient History Medical History Asthma (04/25/12) Stable and controlled Chronic dyspnea Chronic obstructive pulmonary disease STABLE- CONTROLLED- ALBUTEROL USE THIS AM COPD exacerbation Diabetes mellitus, type 2 NIDDM- WELL CONTROLLED AND STABLE Endometrial thickening on ultrasound Hearing deficit NO AIDS Hemoptysis History of breast cancer RIGHT S/P LUMPECTOMY/CHEMO/RADATION (2009)- STABLE AT THIS TIME History of diverticulitis History of liver disease 03/2019 [facility] FOR LIVER ABSCESS- GIVEN ABXS X MONTHS- FOLLOWING WITH [facility]E FOR MONITORING -RECENT CT SCAN 06/16/19- SHOWS ABSCESS TO BE DECREASED TO 3.5CM (SURGEON IS AWARE) Hx of bladder cancer HAD BCG INSTILLATION - DX: 2012 Left rib fracture (2016) Liver abscess Lower extremity edema Malignant neoplasm of lung Bronch with biopsy on 11/15/21 Mass of lung upcoming biopsy Migraine HX Osteoporosis PMR (polymyalgia rheumatica) CHRONIC Port-A-Cath in place Small cell lung cancer Tobacco abuse Tremor RIGHT HAND Ureteral tumor Vertebral fracture LUMBAR AND THORACIC Surgical History H/O cystoscopy SEVERAL History of appendectomy History of arthroscopy B/L KNEE History of breast biopsy History of bronchoscopy 11/15/21 History of cholecystectomy History of colonoscopy History of elbow surgery RIGHT History of lumpectomy of right breast History of surgery TURBT X 2; TURBT, CYSTO, RIGHT RPG, STENT: 07/11/18: LMA#4 AT [facility] History of surgery LEFT CHEST PORT Nausea and vomiting after administration of anesthetic agent Family History Other Adopted Family history unknown Social History Smoking Status: Former smoker Tobacco Type: Cigarettes Cigarettes Per Day: 6; Smoking End Date: Several weeks ago - ? 6-7 weeks ago; Second Hand Exposure: Yes; Do You Dip or Chew Tobacco: No; Tobacco Cessation Education Requested by Patient: No Hx Alcohol Use: No Hx Substance Use: No Preferred Language: Urdu Communication Ability: Effective Visual Impairment: No Limitations Hearing Ability: Normal Sheet Writer Required: No Beliefs That Will Affect Care: None marital status: Single Current Living Situation: Other Current Living Situation Comment: lives with roommate current occupational status: retired Other Information That Helps Us Care for You: No Feels Safe at Home: Yes Safety Concerns: Feels Safe At This Time Childhood Exposure to Second-Hand Smoke: Yes caffeine: No during the past year weight has: remained stable Dental Care, Regularly: Yes Physical Activity Frequency: 1-2 Times per Week Seatbelt Use: always Sunscreen Use: Yes Assistive Devices: Walker Assistive Devices Comment: rolling walker Review of Systems Constitutional: no fever, no chills and no sweats Eyes: no diplopia and no decreased night vision Respiratory: See history of present illness. Cardiovascular: no chest pain Gastrointestinal: She had nausea when she was first admitted. She was given an antiemetic and is not had any issues since. Genitourinary: no dysuria and no difficulty urinating Musculoskeletal: She has a history of polymyalgia rheumatica. She feels improved with being on the steroids given for the exacerbation of COPD. Integumentary: no rash Neurologic: no falls and no syncope Psychiatric: + change in appetite (Improved with steroid therapy.) Endocrine: + fatigue Hematologic / Lymphatic: See history of present illness. Neutropenia improved since admission. Physical Exam Constitutional: WD/WN, vitals as above Eyes: PERRL, conjunctivae normal, anicteric sclerae ENMT: Ears: no hearing impairment Neck: trachea midline, no thyromegaly Respiratory: no respiratory distress Auscultation: + wheezes (Right lung hernandez. Normal in left) Cardiovascular: RRR, no murmur, no edema Gastrointestinal (Abdomen): normal bowel sounds, soft, nontender, no hepatosplenomegaly Skin: no rashes, warm and dry Neurologic: Normal strength and coordination. Psychiatric: A+Ox3, euthymic affect Time Spent Midlevel I spent [10] minutes in preparation for this follow up evaluation including reviewing all the clinical records, reviewing laboratory studies, pathology reports and imaging results. I spent [20] minutes with direct face to face interaction with the patient and/or family including performing a physical exam and answering all questions. I spent [10] minutes documenting this patient's visit.
[2021-12-27] MEDS: predniSONE 20 MG TAB PO SCH ×2 (09:17→21:02)
[2021-12-27] MEDS: CHOLECALCIFEROL 1,000 UNITS 25 MCG TAB PO SCH (09:17)
[2021-12-27] MEDS: CYANOCOBALAMIN (B-12) 500 MCG TABLET PO SCH (09:18)
[2021-12-27] MEDS: dilTIAZem HCl 60 MG TAB PO SCH ×3 (09:19→21:04)
[2021-12-27] MEDS: UMECLIDINIUM BROMIDE 62.5MCG/BLISTER 7 PUFFS/INHALER INH SCH (09:19)
[2021-12-27] MEDS: guaiFENesin 600 MG TABCR PO SCH ×2 (09:19→21:03)
[2021-12-27] MEDS: DOXYCYCLINE HYCLATE 100 MG CAP PO SCH ×2 (09:19→21:04)
[2021-12-27] MEDS: ENOXAPARIN INJ 40 MG/0.4 ML SYR SQ SCH (09:20)
[2021-12-27] MEDS: FUROSEMIDE 40 MG/4 ML VIAL IV SCH ×2 (09:22→21:05)
[2021-12-27] MEDS: FLUTICASONE/VILANTEROL 100/25MCG 14 PUFFS/INHALER INH SCH (09:22)
--- NOTE | 2021-12-27 09:25 | Consultation Report ---
DATE OF SERVICE: 12/27/2021. REASON FOR CONSULTATION: Chemotherapy-induced pancytopenia. HISTORY OF PRESENT ILLNESS: Ms. Ward is a 76-year-old female who has been following up at [facility] for several years. I had the pleasure of meeting her today for the first time as she had previously been seen by the physician extenders at [facility]. She has an extensive oncologic history including stage IIA right breast invasive ductal carcinoma diagnosed in 2009, for which she is status post lumpectomy, adjuvant chemotherapy treatments, adjuvant radiation treatment and received 5 years of adjuvant Arimidex. She also has a more recent history of limited stage small cell lung cancer, stage IIIB, for which she started concurrent chemoradiation with carboplatin/etoposide on 12/12/2021. The patient presented to the ER at [facility] on 12/25/2021 with complaints of increased shortness of breath and oxygen saturation noted to be low at 82% on room air. Lower extremity Doppler on 12/25/2021 revealed no evidence of DVTs. Nuclear medicine pulmonary perfusion scan on 12/26/2021 revealed no evidence of perfusion defect to suggest PE. CT chest on 12/26/2021 revealed significant interval decrease in size of left upper lobe mass and mediastinal and left hilar lymphadenopathy representing a partial but significant treatment response with no new sites of disease noted in the chest. On evaluation of the patient today, she complains of shortness of breath, which is at her baseline, but otherwise denies any other issues. ALLERGIES: 1. DOCETAXEL. 2. PACLITAXEL. 3. TRIMETHOPRIM. 4. NITROFURANTOIN. 5. CODEINE. 6. SULFA ANTIBIOTICS, 7. PHENAZOPYRIDINE. HOME MEDICATIONS: 1. Metformin. 2. Nortriptyline. 3. Celecoxib. 4. Omeprazole. 5. Alendronate. 6. Folic acid. 7. Albuterol inhaler. 8. Vitamin D3. 9. Vitamin B12 1000 mcg sublingual. 10. Prednisone. 11. Fluticasone. 12. Torsemide. 13. Umeclidinium inhalation. PAST MEDICAL HISTORY: 1. COPD. 2. Diabetes mellitus type 2. 3. History of breast cancer. 4. History of diverticulitis. 5. History of bladder cancer. 6. Small cell lung cancer. 7. Polymyalgia rheumatica. PAST SURGICAL HISTORY: 1. Appendectomy. 2. Arthroscopy of the bilateral knees. 3. Cholecystectomy. 4. Elbow surgery. 5. Right breast lumpectomy. 6. TURBT. FAMILY HISTORY: Noncontributory. SOCIAL HISTORY: She is a former smoker who quit about 1 month ago. Denies alcohol or illicit drug use. REVIEW OF SYSTEMS: Unremarkable except as noted in the HPI. PHYSICAL EXAMINATION: Essentially unremarkable except for 2+ bilateral pitting edema. IMAGING STUDIES: As noted above. LABORATORY TESTING: Obtained on 12/26/2021 revealed white cell count of 0.68, hemoglobin of 10.1, hematocrit of 31.7, platelet count of 84,000. CBC on 12/27/2021 revealed improvement in the white cell count to 2.93, hemoglobin of 10.6, hematocrit of 33.2, platelet count of 136,000 with ANC of 20. ASSESSMENT AND PLAN: A pleasant female with history of breast cancer, bladder cancer, and more recently diagnosed limited stage small cell lung cancer for which she is status post one cycle of chemoradiation with carboplatin/etoposide. She presented with acute on chronic respiratory failure, likely due to COPD and was found to be pancytopenic due to recent chemotherapy/radiation treatment. Labs show improvement in pancytopenia, as expected, as she is currently in her kimberly period. Although ANC is low, she does not have infection and recently received concurrent chemoradiation treatment where there was a relative contraindication to giving G-CSF. We will hold off on G-CSF at this time unless she develops a fever. At that time, we would not have a choice but to give G- CSF. Agree with management of COPD exacerbation. I plan to see her back in clinic for continuation of systemic therapy given the good response noted on CT scan. We will dose reduce treatment going forward given severe pancytopenia. Thank you for this consult. Oncology will sign off at this time. Please feel free to call if you have any further questions. Job ID: [id number] [facility]
[2021-12-27] MEDS: INSULIN ASPART PER UNIT SC SCH ×4 (09:32→21:05)
[2021-12-27] MEDS: LANTUS PER UNIT CHARGE SQ SCH ×2 (09:33→21:11)
--- NOTE | 2021-12-27 12:12 | Hospitalist Progress Note ---
Date of Service December 27, 2021 Assessment & Plan (1) Acute and chronic respiratory failure: Plan: Supplemental oxygen per nasal cannula to maintain saturation greater than 90%. Lasix diuresis. Continue parenteral steroid therapy and oral doxycycline. Appreciate pulmonary medicine consultation. Improving (2) Sinus tachycardia: Plan: Much improved with addition of diltiazem and well-tolerated. Continue telemetry. Underlying pulmonary embolism has been ruled out (3) COPD exacerbation: Plan: Continue parenteral steroid therapy. Oral doxycycline. Pulmonary medicine consultation appreciated. Improving (4) Lower extremity edema: Plan: IV Lasix has helped. Monitor intake and output. Cardiac echo appears normal with no evidence of right heart failure. Venous Dopplers of both legs negative for DVT (5) Small cell lung cancer: Plan: Recently diagnosed and started on chemotherapy and radiation. Radiation oncology will resume radiation therapy today, December 27. Received etoposide and cisplatin on 12/11-12/13-this is scheduled for every 3 weeks Oncology consultation appreciated (6) Hypomagnesemia: Plan: Replacement therapy ordered. Serial lab studies. (7) Pancytopenia due to antineoplastic chemotherapy: Plan: Serial lab studies. Oncology consultation appreciated . We will transfuse as needed (8) Osteoporosis: Plan: With vertebral compression fractures, secondary to chronic prednisone use On Fosamax as an outpatient Continue vitamin D (9) PMR (polymyalgia rheumatica): Plan: On chronic prednisone 10 mg a day Hold home prednisone while on IV Solu-Medrol Hold Celebrex for vertebral compression fractures while on anticoagulation (10) Diabetes mellitus, type 2: Plan: Patient requests that she not be placed on a diabetic diet Give NovoLog sliding scale and titrate up as needed Lantus 5 units SQ twice daily was also started due to hyperglycemia from steroids Hold home metformin until no further x-rays with contrast needed (11) GERD (gastroesophageal reflux disease): Plan: Continue PPI Plan DVT prophylaxis-currently on heparin drip Disposition-eventual discharge back to home Admission and Anticipated Discharge Date Admission Date: December 25, 2021 Subjective Alert and oriented. She still has some bilateral wheezes but she states she is feeling better. Radiation oncology will resume left upper lobe lung radiation today. I spoke to her daughter, Mei Valdovinos, by phone. Ventilation/perfusion scan is negative and the heparin drip has been discontinued. Review of Systems Review of Systems: Constitutional-no fever or chills ENT-no blurred vision, no double vision, no epistaxis, no sore throat Respiratory-wheezing is improving. Nonproductive cough Cardiac-no palpitations, no chest pain, no syncope GI-no nausea, vomiting, diarrhea, melena, hematochezia -no urinary retention, no urinary incontinence, no dysuria, no hematuria Musculoskeletal-no joint pain, no muscle tenderness Skin-no bruising, no rashes, no pruritus Neuro-no isolated weakness, no paresthesia, no weakness Psych-no depression, no anxiety Physical Exam Physical Exam: General-alert and oriented x3, no fevers, no chills HEENT-head atraumatic and normocephalic, pupils equal and reactive to light, extraocular muscles intact Neck-no lymphadenopathy or thyromegaly, trachea midline Chest-bilateral expiratory wheezes. Minimal midline rhonchi with forced cough. No dullness to percussion Cardiac-regular rate and rhythm, normal S1 and S2, no murmurs Abdomen-normal bowel sounds, nontender, no hepatosplenomegaly Extremities-no cyanosis, clubbing, or edema Neuro-cranial nerves II through XII intact, motor and sensory function within normal limits, strength symmetrical , no focal deficits Psych-normal affect, normal mood Results & Data Results & Data ([facility]) Vital Signs (Past 12 Hours) Vital Signs Temp Pulse Resp BP Pulse Ox O2 Del Method O2 Flow Rate 12/27/21 11:26 104 H 18 94 Nasal Cannula 2 12/27/21 08:11 Nasal Cannula 2 12/27/21 07:28 36.4 C L 97 H 20 134/63 94 Nasal Cannula 2 12/27/21 07:05 96 H 18 96 Nasal Cannula 2 12/27/21 02:46 36.3 C L 94 H 18 134/74 90 Nasal Cannula 2 Laboratory Results 12/27/21 05:50 12/27/21 05:50 PG Care Time/CCT Total # of Minutes Spent Total Time Spent with Patient: Total time spent is greater than 50% in coordination of care (as documented) at patient's floor/unit and/or counseling patient: Coding Level of Care Code 45995 Subseq Hosp Care Lvl 3 Diagnoses Acute and chronic respiratory failure J96.20 Sinus tachycardia R00.0 COPD exacerbation J44.1 Lower extremity edema R60.0 Small cell lung cancer C34.90 Hypomagnesemia E83.42 Pancytopenia due to antineoplastic chemotherapy D61.810; T45.1X5A Osteoporosis M81.0 PMR (polymyalgia rheumatica) M35.3 Diabetes mellitus, type 2 E11.9 GERD (gastroesophageal reflux disease) K21.9
--- NOTE | 2021-12-27 13:16 | Pulmonology Progress Note ---
Date of Service December 27, 2021 Assessment & Plan (1) Acute and chronic respiratory failure: (2) Small cell lung cancer: (3) COPD exacerbation: Plan Impression: 76-year-old female with COPD and newly diagnosed small cell lung cancer admitted with shortness of breath and tachycardia as well as hypoxemia. Perfusion scan showed no evidence of filling defect. CT scan showed no evidence of parenchymal lung disease concerning for radiation or chemical pneumonitis. Suspect her symptoms are likely related to exacerbation of COPD coinciding with the patient stopping smoking within the last 10 to 14 days. Recommendations: 1. Acute exacerbation of chronic obstructive pulmonary disease: Continue prednisone to 20 mg twice a day with plans for total of 5-day burst and then decrease down to her 10 mg daily dose for her polymyalgia rheumatica. Continue DuoNebs 4 times a day. Patient is also on Breo and Incruse. Depending on her clinical response, could consider the addition of chronic azithromycin therapy. She is on doxycycline for acute exacerbation of COPD currently and recommend completing 5 days of therapy. 2. Hypoxemic respiratory failure: Continue supplemental oxygen titrated to keep saturations at or above 88%. She has oxygen at home. She appears to be appro aching her baseline 3. Continue diuretics. Currently receiving Lasix 40 mg IV twice a day 4. I suspect the patient can discharge to home when she can ambulate to the restroom and back without becoming significantly dyspneic. She can follow-up in the outpatient setting with Dr. Cunha as previously scheduled. Will continue to follow peripherally. Feel free to contact us with additional questions or concerns Admission and Anticipated Discharge Date Admission Date: December 25, 2021 Subjective Patient seen and examined. EMR reviewed. Patient is sitting up finishing breakfast this morning. She feels that she is breathing better. She is wheezing less and coughing less. She reports that she is making slow and steady improvements. She does not yet feel back to baseline. She is tolerating a diet. She continues to manifest lower extremity edema. Review of Systems Review of Systems: All systems reviewed & are unremarkable except as noted in Subjective Physical Exam Constitutional: WD/WN, vitals as above Neck: trachea midline, no thyromegaly Respiratory: no respiratory distress, no labored breathing and not tachypneic Auscultation: + wheezes Cardiovascular: RRR, no murmur, no edema Gastrointestinal (Abdomen): normal bowel sounds, soft, nontender, no hepatosplenomegaly Musculoskeletal: Extremities: extremities normal to inspection Skin: no rashes, warm and dry Neurologic: Nonfocal exam Lymphatic: no cervical lymphadenopathy Results & Data Results & Data ([facility]) Vital Signs (Past 12 Hours) Vital Signs Temp Pulse Resp BP Pulse Ox O2 Del Method O2 Flow Rate 12/27/21 12:32 36.7 C 110 H 20 131/64 93 Nasal Cannula 2 12/27/21 11:26 104 H 18 94 Nasal Cannula 2 12/27/21 08:11 Nasal Cannula 2 12/27/21 07:28 36.4 C L 97 H 20 134/63 94 Nasal Cannula 2 12/27/21 07:05 96 H 18 96 Nasal Cannula 2 12/27/21 02:46 36.3 C L 94 H 18 134/74 90 Nasal Cannula 2 Laboratory Results 12/27/21 05:50 12/27/21 05:50 Diagnostic Findings No new imaging PG Care Time/CCT Total # of Minutes Spent Total Time Spent with Patient: Total time spent is greater than 50% in coordination of care (as documented) at patient's floor/unit and/or counseling patient: Coding Level of Care Code 07634 Subseq Hosp Care Lvl 2 Diagnoses Acute and chronic respiratory failure J96.20 Small cell lung cancer C34.90 COPD exacerbation J44.1
[2021-12-27] MEDS: FOLIC ACID 1 MG TAB PO SCH (21:02)
[2021-12-27] MEDS: PANTOprazole 40 MG TAB PO SCH (21:03)
[2021-12-27] MEDS: NORTRIPTYLINE HCL 25 MG CAP PO SCH (21:26)
[2021-12-28] MEDS: ALBUT/IPRATROP 3MG/0.5MG NEB 3 ML VIAL INH SCH ×3 (06:55→15:15)
[2021-12-28 07:09] LABS: BUN Creatinine Ratio 22.5 (10-20); Calcium 8.9 mg/dl (8.5-10.1); Creatinine Clr Calc Pharmacy 50.4 ml/min; Est GFR (African American) 71.9 ml/min; Est GFR (Non-African American) 62.1 ml/min
[2021-12-28] MEDS: DOXYCYCLINE HYCLATE 100 MG CAP PO SCH (08:40)
[2021-12-28] MEDS: FUROSEMIDE 40 MG/4 ML VIAL IV SCH (08:40)
[2021-12-28] MEDS: dilTIAZem HCl 60 MG TAB PO SCH (08:41)
[2021-12-28] MEDS: ENOXAPARIN INJ 40 MG/0.4 ML SYR SQ SCH (08:41)
[2021-12-28] MEDS: CHOLECALCIFEROL 1,000 UNITS 25 MCG TAB PO SCH (08:41)
[2021-12-28] MEDS: guaiFENesin 600 MG TABCR PO SCH (08:41)
[2021-12-28] MEDS: predniSONE 20 MG TAB PO SCH (08:41)
[2021-12-28] MEDS: CYANOCOBALAMIN (B-12) 500 MCG TABLET PO SCH (08:41)
[2021-12-28] MEDS: FLUTICASONE/VILANTEROL 100/25MCG 14 PUFFS/INHALER INH SCH (08:42)
[2021-12-28] MEDS: UMECLIDINIUM BROMIDE 62.5MCG/BLISTER 7 PUFFS/INHALER INH SCH (08:42)
[2021-12-28] MEDS: INSULIN ASPART PER UNIT SC SCH ×2 (08:56→12:34)
[2021-12-28] MEDS: LANTUS PER UNIT CHARGE SQ SCH (08:57)
[2021-12-28 08:58] LABS: Hematocrit (blood only) 30.4 % (34.1-44.9); Mean Corpuscular Hemoglobin 29.3 pg (25.0-34.0); Mean Corpuscular Hgb Conc 32.9 g/dL (32.0-36.0); Mean Corpuscular Volume 89.1 fL (80.0-100.0); Mean Platelet Volume 10.6 fL (9.4-12.3); Nucleated RBC # (auto) 0.02 K/uL (0-0); Nucleated RBC % (auto) 0.4 %; Platelet Count 200 K/uL (130-400); RDW Coefficient of Variation 13.9 % (11.5-14.5); Red Blood Count 3.41 M/uL (3.93-5.22); White Blood Count 4.94 K/ul (4.8-10.8)
[2021-12-28 08:59] LABS: ALC (manual) 0.59 K/uL (1.2-3.4); ANC (manual) 3.31 K/uL (1.4-6.5); Lymphocytes # (manual) 0.59 K/uL (1.2-3.4); Lymphocytes % (manual) 12 %; Metamyelocytes # (manual) 0.15 K/uL (0-0); Metamyelocytes % (manual) 3 %; Monocytes # (manual) 0.64 K/uL (0.24-0.82); Monocytes % (manual) 13 %; Myelocytes # (manual) 0.25 K/uL (0-0); Myelocytes % (manual) 5 %; Neutrophils # (manual) 3.31 K/uL (1.4-6.5); Neutrophils % (manual) 67 %; Polychromasia 1+
--- NOTE | 2021-12-28 10:01 | Pulmonology Progress Note ---
Date of Service December 28, 2021 Assessment & Plan (1) Acute and chronic respiratory failure: (2) Small cell lung cancer: (3) COPD exacerbation: Plan Impression: 76-year-old female with COPD and newly diagnosed small cell lung cancer admitted with shortness of breath and tachycardia as well as hypoxemia. Perfusion scan showed no evidence of filling defect. CT scan showed no evidence of parenchymal lung disease concerning for radiation or chemical pneumonitis. Suspect her symptoms are likely related to exacerbation of COPD coinciding with the patient stopping smoking within the last 10 to 14 days. She is slowly improving clinically. Recommendations: 1. Acute exacerbation of chronic obstructive pulmonary disease: Continue prednisone to 20 mg twice a day with plans for total of 5-day burst and then decrease down to her 10 mg daily dose for her polymyalgia rheumatica. Continue DuoNebs 4 times a day. Patient is also on Breo and Incruse. Depending on her clinical response, could consider the addition of chronic azithromycin therapy. She is on doxycycline for acute exacerbation of COPD currently and recommend completing 5 days of therapy. 2. Hypoxemic respiratory failure: Continue supplemental oxygen titrated to keep saturations at or above 88%. She has oxygen at home. She appears to be approaching her baseline 3. Continue diuretics. Currently receiving Lasix 40 mg IV twice a day. She was -1.3 L yesterday. 4. I suspect the patient can discharge to home when she can ambulate to the restroom and back without becoming significantly dyspneic. She can follow-up in the outpatient setting with Dr. Cunha as previously scheduled. Anticipate the patient will be ready to discharge home in the next 24 to 48 hours if she continues to improve. She can follow with Dr. Cunha in the outpatient setting. Please call if questions or concerns. Admission and Anticipated Discharge Date Admission Date: December 25, 2021 Subjective Patient continues to slowly improve. She is coughing but not expectorating phlegm. She still has some persistent wheezing. She is not having any chest pain. She still feels short of breath with physical activity but this appears to be approaching her baseline. Review of Systems Review of Systems: All systems reviewed & are unremarkable except as noted in Subjective Physical Exam Constitutional: WD/WN, vitals as above Neck: trachea midline, no thyromegaly Respiratory: no respiratory distress, no labored breathing and not tachypneic Auscultation: + wheezes Cardiovascular: RRR, no murmur, no edema Gastrointestinal (Abdomen): normal bowel sounds, soft, nontender, no hepatosplenomegaly Musculoskeletal: Extremities: extremities normal to inspection Skin: no rashes, warm and dry Lymphatic: no cervical or axillary lymphadenopathy no cervical lymphadenopathy Results & Data Results & Data ([facility]) Vital Signs (Past 12 Hours) Vital Signs Temp Pulse Pulse Resp BP Pulse Ox O2 Del Method 12/28/21 08:03 36.3 C L 105 H 18 132/78 92 Nasal Cannula 12/28/21 06:55 97 H 20 95 Nasal Cannula 12/28/21 03:27 36.5 C 89 16 109/62 97 Nasal Cannula 12/27/21 23:00 112 H 12/27/21 22:33 36.7 C 104 H 16 111/64 94 Nasal Cannula O2 Flow Rate 12/28/21 08:03 2 12/28/21 06:55 2 12/28/21 03:27 2 12/27/21 23:00 12/27/21 22:33 2 Laboratory Results 12/28/21 06:06 12/28/21 06:06 Diagnostic Findings No new imaging PG Care Time/CCT Total # of Minutes Spent Total Time Spent with Patient: Total time spent is greater than 50% in coordination of care (as documented) at patient's floor/unit and/or counseling patient: Coding Level of Care Code 87960 Subseq Hosp Care Lvl 2 Diagnoses Acute and chronic respiratory failure J96.20 Small cell lung cancer C34.90 COPD exacerbation J44.1
--- NOTE | 2021-12-28 12:03 | Discharge Summary ---
Date of Service December 28, 2021 Admission HPI Per Admitting Provider This patient is a 76-year-old female with a history of recently diagnosed small cell lung cancer s/p 1 round of chemotherapy with etoposide and cisplatin and 1 week of radiation therapy, COPD, chronic hypoxic respiratory failure on 2 L NC, breast cancer, bladder cancer, PMR on chronic prednisone, DM2, vertebral compression fractures, osteoporosis, who presents to the ER with increased shortness of breath, low oxygen levels to 82% on room air at home, and a fast heart rate into the 130s-140s. This started last evening and persisted through the morning which is when she came to the ER. She reports that her heart rate is typically in the 1 teens to 120s but that 130s-140s as high for her. She is supposed to be wearing 2 LNC of O2 at home but only puts it on when she exerts herself. She denies any chest pain, lightheadedness, nausea/vomiting/diarrhea, denies abdominal pain or urinary symptoms. No cough or sputum production. Denies fevers or chills. She has had lower extremity edema for which she was given Lasix but is not helping. Denies calf pain or pain in the thighs. She had her first round of chemotherapy from 12/11-12/13 followed by 5 days of radiation therapy to the chest with the last session being 12/23. The patient's daughter reports that the patient has not been eating as much as usual since her treatment. The patient thinks she has been drinking her usual amounts of fluid. In the ER, she was placed on oxygen and was given IV Solu-Medrol 125 Mg. A chest x-ray was performed which showed improvement in the left upper lobe masslike abnormality from previous x-ray 3 weeks prior. Hospitalist service was consulted for admission. Initially, I wanted to order a CTA of the chest to rule out PE, but the patient did not want further testing at this time. Later in the day, the imaging tech ordered a CTA chest, however an 18-gauge IV site was not able to be obtained I believe due to dehydration. After lengthy discussion with oncology, pulmonology, the patient, and her daughter, decision was made to empirically place her on a heparin drip overnight and hopefully be able to obtain an 18-gauge IV site in the morning to be able to get the CTA chest. Venous Dopplers however were negative for DVT. Principal Diagnosis Acute exacerbation COPD, acute on chronic respiratory failure, fluid overload Discharge Exam General-alert and oriented x3, no fevers, no chills HEENT-head atraumatic and normocephalic, pupils equal and reactive to light, extraocular muscles intact Neck-no lymphadenopathy or thyromegaly, trachea midline Chest-diminished breath sounds bilaterally. No rales. End expiratory wheezes bilaterally. No dullness Cardiac-regular rate and rhythm, normal S1 and S2, no murmurs Abdomen-normal bowel sounds, nontender, no hepatosplenomegaly Extremities-no cyanosis, clubbing, or edema Neuro-cranial nerves II through XII intact, motor and sensory function within normal limits, strength symmetrical , no focal deficits Psych-normal affect, normal mood Discharge Data Allergies Allergy/AdvReac Type Severity Reaction Status Date / Time castor oil Allergy Severe "TAXANES" Verified 12/08/21 14:54 CAUSE DYSPNEA, RASH, ELEVATED BP docetaxel [From Taxotere] Allergy Severe "TAXANES" Verified 12/08/21 14:54 CAUSE DYSPNEA, RASH, ELEVATED BP paclitaxel Allergy Severe "TAXANES" Verified 12/08/21 14:54 CAUSE DYSPNEA, RASH, ELEVATED BP trimethoprim [From Bactrim] Allergy Severe Anaphylaxis Verified 12/08/21 14:54 Iodinated Contrast Media Allergy Intermediate HIVES/ITCHI Verified 12/08/21 14:5 4 NG nitrofurantoin Allergy Intermediate CHEST Verified 12/08/21 14:54 PAIN, DYSPNEA Sulfa (Sulfonamide Allergy Intermediate HIVES, Verified 12/08/21 14:54 Antibiotics) ITCHINESS, SHORTNESS OF BREATH phenazopyridine AdvReac Intermediate N/V Verified 12/08/21 14:54 codeine AdvReac COLD Verified 12/25/21 08:17 SWEAT, THINGS START SPINNING, NAUSEA Consultations 12/25/21 08:25 ED Decision to Admit Stat 12/25/21 09:57 Consult Pulmonology Routine 12/26/21 15:21 Consult Oncology Routine 12/27/21 07:52 Consult Radiation Oncology Routine Ordered Studies 12/25/21 09:47 US venous doppler LE BI Stat 12/26/21 12:38 CT chest diagnostic wo con Routine Hospital Course (1) Acute and chronic respiratory failure: Supplemental oxygen per nasal cannula to maintain saturation greater than 90%. She is back to her baseline 2 L/min. She had a nice response to Lasix diuresis. Treated with parenteral steroid therapy and oral doxycycline. Appreciate pulmonary medicine consultation. She will be discharged on a prednisone taper back to her usual 10 mg daily (2) Sinus tachycardia: Much improved with addition of diltiazem and well-tolerated. Continue telemetry. Underlying pulmonary embolism has been ruled out (3) COPD exacerbation: Treated with parenteral steroid therapy and doxycycline. Pulmonary medicine consultation appreciated. Home on a prednisone tapering dose back to her usual 10 mg daily (4) Lower extremity edema: IV Lasix has helped. Monitor intake and output. Cardiac echo appears normal with no evidence of right heart failure. Venous Dopplers of both legs negative for DVT (5) Small cell lung cancer: Recently diagnosed and started on chemotherapy and radiation. Radiation oncology resumed radiation therapy on December 27. Received etoposide and cisplatin on 12/11-12/13-this is scheduled for every 3 weeks Oncology consultation appreciated (6) Hypomagnesemia: Corrected. Serial lab studies. (7) Pancytopenia due to antineoplastic chemotherapy: Serial lab studies. Oncology consultation appreciated . We will transfuse as needed (8) Osteoporosis: With vertebral compression fractures, secondary to chronic prednisone use On Fosamax as an outpatient Continue vitamin D (9) PMR (polymyalgia rheumatica): On chronic prednisone 10 mg a day. Will discharge on a tapering prednisone dose back down to her usual 10 mg daily. (10) Diabetes mellitus, type 2: Patient requests that she not be placed on a diabetic diet Give NovoLog sliding scale and titrate up as needed Lantus 5 units SQ twice daily was also started due to hyperglycemia from steroids. No planned insulin therapy at discharge Resume metformin at discharge h (11) GERD (gastroesophageal reflux disease): Continue PPI Plan Disposition- discharge back to home today, December 28 Total Time Total Time Spent Total Time Spent (In Minutes): 35 minutes Discharge Plan Discharge Items Patient Disposition: Home - Home Health Services Reason For Visit: HYPOXIA,TACHYCARDIA Discharge Diagnosis: Acute exacerbation COPD, acute on chronic respiratory failure, fluid overload Activity: Resume your previous activity Activity Comment: Wear oxygen at all times Non-emergency contact: Primary Care Provider Call non-emergency contact if: you have any medication questions Follow-up/Referrals: Pro,Chandan Cassidy MD [Primary Care Provider] - Diet: Carb Consistent or DM2 and Heart Healthy Addtl Attending Provider Instructions: Prednisone tapering dose back down to usual 10 mg daily. Wear oxygen at all times. Take long-acting diltiazem CD once daily to help control heart rate Pending Studies at Discharge: No Stand-Alone Forms: My [facility], Smoking Cessation Medications and DC Order Prescriptions: New diltiazem HCl 240 mg Capsule,Extended Release 24hr 240 mg PO QAM Qty: 30 0RF prednisone 10 mg tablet See Rx Instructions .ROUTE .COMPLEX Qty: 30 0RF Rx Instructions: 10 mg three times a day for 2 days, then 10mg twice a day for 2 days, then 10mg daily as before Continued mecobalamin (vitamin B12) 1,000 mcg tablet,disintegrating 1,000 mcg sublingual DAILY Rx Instructions: place tablet under tongue and allow to dissolve for at least30 secs before swallowing cholecalciferol (vitamin D3) 25 mcg (1,000 unit) capsule 25 mcg PO DAILY metformin 850 mg tablet 850 mg PO QPM nortriptyline 25 mg capsule 25 mg PO HS Qty: 90 3RF alendronate [Fosamax] 70 mg tablet 70 mg PO WEEKLY Qty: 4 3RF Rx Instructions: Take q tues folic acid 1 mg tablet 1 mg PO QPM Qty: 30 3RF albuterol sulfate [Ventolin HFA] 90 mcg/actuation HFA aerosol inhaler 2 puff INH 6XD PRN (Reason: shortness of breath or wheezing) Qty: 6.7 3RF Label Comments: "every once in a while" ipratropium-albuterol 0.5 mg-3 mg(2.5 mg base)/3 mL solution for nebulization 3 ml inhalation Q6H PRN (Reason: wheezing) Qty: 360 1RF (DME) nebulizers [facility] See Rx Instructions .Route Qty: 1 0RF Rx Instructions: nebulizer and nebulizer kits/supplies ANNALISA-99 Incruse Ellipta 62.5 mcg/actuation blister with device 1 inh inhalation DAILY Qty: 30 2RF fluticasone furoate-vilanterol [Breo Ellipta] 100-25 mcg/dose blister with device 1 inh inhalation DAILY Qty: 60 2RF furosemide [Lasix] 20 mg tablet 20 mg PO DAILY Qty: 30 1RF celecoxib [Celebrex] 100 mg capsule 100 mg PO QPM omeprazole 20 mg capsule,delayed release(DR/EC) 20 mg PO QPM Discontinued prednisone 5 mg tablet 10 mg PO QPM Discharge Orders: Discharge Order (Routine); Ordered 12/28/21 Ordered By: Stewart Yanez Admission Data Admit Date/Time: 12/25/21 09:57 Attending Provider: Stewart Yanez Admit Provider: Shauna Bailon Primary Care Provider: Chandan Bro Other Providers: Tramaine Hernandez ; Shauna Bailon ; Katherine Ceja ; Vidya Carey Coding Level of Care Code D/C DAY MANAGEMENT >30 MINS Diagnoses Acute and chronic respiratory failure J96.20 Sinus tachycardia R00.0 COPD exacerbation J44.1 Lower extremity edema R60.0 Small cell lung cancer C34.90 Hypomagnesemia E83.42 Pancytopenia due to antineoplastic chemotherapy D61.810; T45.1X5A Osteoporosis M81.0 PMR (polymyalgia rheumatica) M35.3 Diabetes mellitus, type 2 E11.9 GERD (gastroesophageal reflux disease) K21.9
[2021-12-28 12:16] VITALS: BP 154/76; TEMP 98.1
[2021-12-28] MEDS ORDERED: HEPARIN 100 UNIT/ML 5ML FLUSH FLUSH PRN (13:53)
[2021-12-28] MEDS ORDERED: HEPARIN 100 UNIT/ML 5ML FLUSH ONE (14:12)
[2021-12-28 14:44] VITALS: O2SAT 97
[2021-12-28 15:34] VITALS: PULSE 96
[2021-12-29] MEDS ORDERED: dilTIAZem HCL 240 MG CAPCR PO SCH (09:00)
== END 2021-12-28 16:40 | disposition home or self-care (01) | DRG 189 ==
LOC: ED 05:08 → 4W 09:57 → SUATTDRO 09:57 → 4W 12:35

== ENCOUNTER 2022-02-02 08:18 | Inpatient (IN) ==
[2022-02-02] MEDS ORDERED: methylPREDNISolone 125 MG/2 ML VIAL IV STA (08:35)
[2022-02-02] MEDS ORDERED: dilTIAZem HCl 5 MG/ML 5 ML VIAL IV STA ×2 (08:37→13:39)
--- NOTE | 2022-02-02 08:48 | Emergency Department Note ---
Impression & Plan Atrial flutter with rapid ventricular response, Small cell lung cancer, Chest pain, Anemia, Breathlessness ED Provider Note Provider: Ricardo Cruz MD DATE OF SERVICE: 02/02/2022 CHIEF COMPLAINT: Shortness of breath and chest pain HISTORY OF PRESENT ILLNESS: Patient is a 76-year-old female past medical history significant for small cell lung cancer s/p radiation currently on chemotherapy, COPD with chronic respiratory failure on 2 L of oxygen, breast cancer, bladder cancer, PMR on chronic prednisone, type 2 diabetes presenting here via ambulance today with chest discomfort starting several hours ago in the middle of the night as well as increased shortness of breath. Denies any syncope or lightheaded feeling. Denies any falls or trauma. Patient states she has noted the last day or so some increased swelling of her legs. Patient states has been taking her Lasix. States she did not take her morning medicines this morning but otherwise has been taking her medications. Denies recent fever. Bit of a cough at times. Patient reports the pain is under just left of the mid chest without other radiation. Denies abdominal symptoms. EMS gave the patient DuoNeb and albuterol prior to arrival. Reportedly her patient's heart rate is normally in the 120s. REVIEW OF SYSTEMS: A total of 10 review of systems was obtained and negative except as stated above in the HPI. PAST MEDICAL HISTORY: As noted above MEDICATIONS: Reviewed home medications but did not take a.m. medications this morning. SOCIAL HISTORY: Former smoker PHYSICAL EXAM: GENERAL: alert and oriented in no acute distress on stretcher Head: normocephalic and atraumatic EYES: No injection, discharge or icterus. NECK: Trachea midline. ENT: Mucous membranes pink and moist. LUNGS: Airway patent. No retractions. Breath sounds diminished with some faint wheezes. HEART: Regular tachycardic rate and rhythm. No chest wall tenderness with left upper chest wall port ABDOMEN: Soft and non-tender, without guarding or rebound. SKIN: Acyanotic, warm, dry, without rashes EXTREMITIES: 2+ bilateral lower extremity edema without significant erythema. NEUROLOGICAL: No focal deficits. No aphasia. No facial droop or slurred speech. EK bpm atrial flutter with a right bundle branch block. No acute ST segment elevation is noted. QTC of 430. CONTINUOUS CARDIAC MONITORING: was ordered and showed a heart rate of 150s-160s bpm in what appears to be atrial flutter Patient's laboratory studies and imaging reviewed. Differential includes Reactive airway disease, pneumonia, pneumothorax, COPD, CHF, infections, cardiac ischemia, cardiac arrhythmia, pulmonary embolism, musculoskeletal, gastrointestinal, as well as other pathologies. IMPRESSION/MEDICAL DECISION MAKING: Patient significantly tachycardic upon arrival but looking at the EKG appears to be of sinus tachycardia. Some component of this may have been from DuoNeb albuterol shortly prior to arrival. Does have some increased leg swelling on exam. Given some steroids here given her significant COPD history and she does have some faint wheezes. Question component of fluid overload. Lower suspicion for infection given her reports although cultures lactate, procalcitonin, and chest x-ray be obtained. Normally is on diltiazem did not take her morning meds and given a dose of this. Recent echo from the end of November this year noted without severe abnormalities. EF 60 to 65%. Again currently with oncological care and they have changed. No reported history of VTE or a flutter. Again appears to have P waves a low suspicion for SVT but could possibly represent a flutter as her heart rate is fairly unchanging. 10 mg of IV diltiazem affected no change in heart rate. Seems to confirm this is likely A flutter. Question may be some increased leg swelling from the a flutter precipitating little bit of heart failure symptoms. Chest x-ray per radiology without acute findings noted per reports decreased to the left upper lobe mass and right basilar opacity favoring atelectasis. Difficulty getting blood work on the patient getting her port to function and she is a difficult patient for IV access. COVID negative. Blood obtained has evidence of neutropenia as well as significant anemia with a low to 5.3. Did repeat this and the hemoglobin returned at 7.3. Not as severely low. Given significant anemia likely related chemotherapy, discussed with her and consented for blood therapy. Likely exacerbating her underlying issues and shortness of breath and tachycardia today. Discussed with oncology regarding transfusion. Patient denies any bleeding anywhere or bloody stools. Will defer any anticoagulation given the significant anemia at this point. Low platelet count 70 as well. Chemistries not severely abnormal with a normal lactate no evidence of hypomagnesemia or hypokalemia. Sodium normal. Troponin minimally elevated and BNP also minimally elevated. Question again some demand ischemia and heart failure from the anemia and & tachycardia. She requires further care here at the hospital. We will hold antibiotics without evidence of fever or clear infectious source and procalcitonin less than 0.5. Cardiology Dr. Dupree agreed with the plan for optimization and did not recommend acute additional interventions at this point. DIAGNOSIS: Anemia, lung cancer, atrial flutter with rapid response, shortness of breath DISPOSITION: Hospitalist will evaluate Patient was agreeable with this plan. Critical Care I have personally spent 33 minutes of critical care time in the direct management of this patient. This includes bedside care, interpretation of diagnostic studies, and testing, discussion with consultants, patient, and family members, and other required patient management activities. These 33 minutes is in excess of all separately billable procedures. Past Med/Surg History Medical History Asthma (04/25/12) Stable and controlled Chronic dyspnea Chronic obstructive pulmonary disease STABLE- CONTROLLED- ALBUTEROL USE THIS AM COPD (chronic obstructive pulmonary disease) COPD exacerbation Diabetes mellitus, type 2 NIDDM- WELL CONTROLLED AND STABLE Endometrial thickening on ultrasound Ex-smoker GERD (gastroesophageal reflux disease) Hearing deficit NO AIDS Hemoptysis History of breast cancer RIGHT S/P LUMPECTOMY/CHEMO/RADATION (2009)- STABLE AT THIS TIME History of diverticulitis History of liver disease 03/2019 [facility] FOR LIVER ABSCESS- GIVEN ABXS X MONTHS- FOLLOWING WITH [facility]EME FOR MONITORING -RECENT CT SCAN 06/16/19- SHOWS ABSCESS TO BE DECREASED TO 3.5CM (SURGEON IS AWARE) Hx of bladder cancer HAD BCG INSTILLATION - DX: 2012 Left rib fracture (2016) Liver abscess Lower extremity edema Malignant neoplasm of lung Bronch with biopsy on 11/15/21 Migraine HX Osteoporosis Osteoporosis Pancytopenia due to antineoplastic chemotherapy PMR (polymyalgia rheumatica) PMR (polymyalgia rheumatica) CHRONIC Port-A-Cath in place Small cell lung cancer Tobacco abuse Tremor RIGHT HAND Ureteral tumor Vertebral fracture LUMBAR AND THORACIC Surgical History H/O cystoscopy SEVERAL History of appendectomy History of arthroscopy B/L KNEE History of breast biopsy History of bronchoscopy 11/15/21 History of cholecystectomy History of colonoscopy History of elbow surgery RIGHT History of lumpectomy of right breast History of surgery TURBT X 2; TURBT, CYSTO, RIGHT RPG, STENT: 07/11/18: LMA#4 AT [facility] History of surgery LEFT CHEST PORT Nausea and vomiting after administration of anesthetic agent Family History Other Adopted Family history unknown Social History Smoking Status: Former smoker Tobacco Type: Cigarettes Cigarettes Per Day: 6; Second Hand Exposure: Yes; Hx Alcohol Use: No Hx Substance Use: No Preferred Language: Pashto Communication Ability: Effective Visual Impairment: No Limitations Hearing Ability: Normal Ems Instructor Required: No Beliefs That Will Affect Care: None marital status: Single Current Living Situation: Other Current Living Situation Comment: lives with roommate current occupational status: retired Feels Safe at Home: Yes Childhood Exposure to Second-Hand Smoke: Yes caffeine: No during the past year weight has: remained stable Dental Care, Regularly: Yes Physical Activity Frequency: 1-2 Times per Week Seatbelt Use: always Sunscreen Use: Yes Assistive Devices: Walker Allergies Allergies Allergy/AdvReac Type Severity Reaction Status Date / Time castor oil Allergy Severe "TAXANES" Verified 01/23/22 11:47 CAUSE DYSPNEA, RASH, ELEVATED BP docetaxel [From Taxotere] Allergy Severe "TAXANES" Verified 01/23/22 11:47 CAUSE DYSPNEA, RASH, ELEVATED BP paclitaxel Allergy Severe "TAXANES" Verified 01/23/22 11:47 CAUSE DYSPNEA, RASH, ELEVATED BP trimethoprim [From Bactrim] Allergy Severe Anaphylaxis Verified 01/23/22 11:47 Iodinated Contrast Media Allergy Intermediate HIVES/ITCHI Verified 01/23/22 11:47 NG nitrofurantoin Allergy Intermediate CHEST Verified 01/23/22 11:47 PAIN, DYSPNEA Sulfa (Sulfonamide Allergy Intermediate HIVES, Verified 01/23/22 11:47 Antibiotics) ITCHINESS, SHORTNESS OF BREATH phenazopyridine AdvReac Intermediate N/V Verified 01/23/22 11:47 codeine AdvReac COLD Verified 01/23/22 11:47 SWEAT, THINGS START SPINNING, NAUSEA Home Meds Home Medications Medication Instructions Recorded Confirmed metformin 850 mg tablet 850 mg PO BID 07/05/21 01/22/22 cholecalciferol (vitamin D3) 25 25 mcg PO DAILY 12/01/21 01/22/22 mcg (1,000 unit) capsule mecobalamin (vitamin B12) 1,000 1,000 mcg sublingual DAILY 12/01/21 01/22/22 mcg disintegrating tablet,sublingual furosemide 20 mg tablet (Lasix) 40 mg PO QAM 01/16/22 01/23/22 albuterol sulfate 90 mcg/actuation 2 puff inhalation 6XD PRN Wheezing 01/22/22 01/23/22 aerosol inhaler (Ventolin HFA) sucralfate 1 gram tablet (Carafate) 1 g PO ACHS 01/22/22 01/23/22 Previous Rx's Medication Instructions Recorded nortriptyline 25 mg capsule 25 mg PO HS #90 caps 11/04/21 alendronate 70 mg tablet (Fosamax) 70 mg PO WEEKLY #4 tabs 11/21/21 folic acid 1 mg tablet 1 mg PO QPM #30 tabs 11/21/21 ipratropium 0.5 mg-albuterol 3 mg 3 ml inhalation Q6H PRN wheezing 12/05/21 (2.5 mg base)/3 mL nebulization #360 mL soln nebulizers #1 ea 12/05/21 fluticasone furoate 100 1 inh inhalation DAILY #60 ea 12/07/21 mcg-vilanterol 25 mcg/dose inhalation powder (Breo Ellipta) umeclidinium 62.5 mcg/actuation 1 inh inhalation DAILY #30 ea 12/07/21 blister powder for inhalation (Incruse Ellipta) diltiazem HCl 240 mg 240 mg PO QAM #30 caps 12/28/21 capsule,extended release 24 hr prednisone 10 mg tablet See Rx Instructions .Route 12/28/21 .COMPLEX #30 tabs omeprazole 20 mg capsule,delayed 20 mg PO QPM #90 caps 12/29/21 release Magic Mouthwash 300 mL mouthwash 10 ml mucous membrane ACHS 01/11/22 Dysphagia #300 mL docusate sodium 100 mg capsule 100 mg PO BID #60 caps 01/22/22 (Colace) polyethylene glycol 3350 17 17 g PO DAILY #238 grams 01/22/22 gram/dose oral powder (Miralax) celecoxib 100 mg capsule (Celebrex) 100 mg PO QPM #30 caps 01/30/22 Results & Data (ED) Vital Signs Vital Signs - 24 hr 02/02/22 08:39 02/02/22 08:39 02/02/22 08:39 Temperature 36.4 C L Temperature Source Oral Pulse Rate 160 H 160 H Pulse Rate [Apical] Pulse Rhythm Regular Pulse Rhythm [Apical] Pulse Strength Normal Pulse Strength [Apical] Respiratory Rate 17 17 Respiratory Effort / Characteristics Non-Labored Respiratory Depth Normal Respiratory Pattern Regular Blood Pressure 112/68 Blood Pressure [Left Arm] Blood Pressure Mean 82 Blood Pressure Mean [Left Arm] Pulse Oximetry 95 95 95 Oxygen Delivery Method Nasal Cannula Nasal Cannula Nasal Cannula Oxygen Flow Rate 2 2 Sepsis Recent Fever Within 48 Hours No Sepsis New/Unexplained Change in Mental Status N/A Sepsis Action Taken by Nursing No Action Required 02/02/22 08:39 02/02/22 10:24 02/02/22 12:00 Temperature 36.4 C L Temperature Source Oral Pulse Rate Pulse Rate [Apical] 160 H 158 H 154 H Pulse Rhythm Pulse Rhythm [Apical] Regular Pulse Strength Pulse Strength [Apical] Normal Respiratory Rate 17 21 21 Respiratory Effort / Characteristics Non-Labored Respiratory Depth Normal Respiratory Pattern Regular Blood Pressure Blood Pressure [Left Arm] 112/68 117/81 Blood Pressure Mean Blood Pressure Mean [Left Arm] 82 93 Pulse Oximetry 95 98 95 Oxygen Delivery Method Nasal Cannula Nasal Cannula Nasal Cannula Oxygen Flow Rate 2 2 2 Sepsis Recent Fever Within 48 Hours Sepsis New/Unexplained Change in Mental Status Sepsis Action Taken by Nursing Laboratory Data Result diagrams: 02/02/22 10:58 02/02/22 10:12 Lab Results 02/02/22 02/02/22 02/02/22 Range/Units 09:03 10:12 10:12 WBC 0.43 L* (4.8-10.8) K/ul RBC 1.77 L (3.93-5.22) M/uL Hgb 5.3 L* (12.0-16.0) g/dl Hct 16.5 L* (34.1-44.9) % MCV 93.2 (80.0-100.0) fL MCH 29.9 (25.0-34.0) pg MCHC 32.1 (32.0-36.0) g/dL RDW Std Deviation 48.2 H (36.4-46.3) fL RDW Coeff of Atul 15.4 H (11.5-14.5) % Plt Count 70 L (130-400) K/uL MPV 10.3 (9.4-12.3) fL Immature Gran % (Auto) Cancelled Neut % (Auto) Cancelled Lymph % (Auto) Cancelled Brewster % (Auto) Cancelled Eos % (Auto) Cancelled Baso % (Auto) Cancelled Neut # (Auto) Cancelled Lymph # (Auto) Cancelled Brewster # (Auto) Cancelled Eos # (Auto) Cancelled Baso # (Auto) Cancelled Immature Gran # (Auto) Cancelled Neutrophils % (Manual) Cancelled Band Neutrophils % Cancelled Lymphocytes % (Manual) Cancelled Prolymphocyte % Cancelled Reactive Lymphs % (Man) Cancelled Monocytes % (Manual) Cancelled Eosinophils % (Manual) Cancelled Basophils % (Manual) Cancelled Metamyelocytes % (Man) Cancelled Myelocytes % (Man) Cancelled Promyelocytes % (Man) Cancelled Blast Cells % (Manual) Cancelled Plasma Cell % (Manual) Cancelled Other Cells % Cancelled Nucleated RBC % Cancelled Neutrophils # (Manual) Cancelled Band Neutrophils # Cancelled Total Absolute Neuts Cancelled Lymphocytes # (Manual) Cancelled Prolymphocyte # Cancelled Reactive Lymphs # Cancelled Total Abs Lymphocytes Cancelled Monocytes # (Manual) Cancelled Eosinophils # (Manual) Cancelled Basophils # (Manual) Cancelled Metamyelocytes # (Man) Cancelled Myelocytes # (Manual) Cancelled Promyelocytes # (Man) Cancelled Blast Cells # (Man) Cancelled Plasma Cell # (Manual) Cancelled Other Cells # Cancelled Nucleated RBCs # (Man) Cancelled Hypersegmented Neuts Cancelled Hyposegmented Neuts Cancelled Hypogranular Neuts Cancelled Large Granular Lymphs Cancelled # Lrg Granular Lymphs Cancelled Hairy Cells Cancelled Smudge Cells Cancelled Toxic Granulation Cancelled Toxic Vacuolation Cancelled Dohle Bodies Cancelled Jose Rods Cancelled Hypogranular Platelets Cancelled Clumped Platelets Cancelled Giant Platelets Cancelled Platelet Satelliting Cancelled RBC Morphology Cancelled Polychromasia Cancelled Hypochromasia Cancelled Poikilocytosis Cancelled Basophilic Stippling Cancelled Anisocytosis Cancelled Microcytosis Cancelled Macrocytosis Cancelled Spherocytes Cancelled Pappenheimer Bodies Cancelled Sickle Cells Cancelled Target Cells Cancelled Tear Drop Cells Cancelled Ovalocytes Cancelled Stomatocytes Cancelled Sood-Gardena Bodies Cancelled Echinocytes Cancelled Acanthocytes (Spur) Cancelled Rouleaux Cancelled RBC Agglutinates Cancelled Schistocytes Cancelled Sezary Cell Cancelled PT 11.6 (9.0-12.0) Seconds INR 1.1 (0.9-1.1) APTT 29.3 (21.0-31.0) Seconds PTT Ratio 1.1 Sodium (136-145) mmol/L Potassium (3.5-5.1) mmol/L Chloride (98-107) mmol/L Carbon Dioxide (21-32) mmol/L Anion Gap (3-11) BUN (6-23) mg/dl Creatinine (0.6-1.2) mg/dl Est Cr Clr Drug Dosing ml/min Est GFR ( Amer) ml/min Est GFR (Non-Af Amer) ml/min BUN/Creatinine Ratio (10-20) Glucose (70-99(Fasting)) mg/dl Lactate (0.4-2.0) mmol/L Calcium (8.5-10.1) mg/dl Magnesium (1.7-2.4) mg/dl Total Bilirubin (0.2-1.0) mg/dl AST (13-39) U/L ALT (7-52) U/L Alkaline Phosphatase (34-104) U/L Troponin I High Sens (0-14) pg/ml B-Natriuretic Peptide (0-100) pg/ml Total Protein (6.0-8.3) gm/dl Albumin (3.4-5.0) gm/dl Globulin (2.5-4.0) gm/dl Albumin/Globulin Ratio (0.9-2) Procalcitonin (0-0.5) ng/ml TSH (0.300-4.500) uIu/ml SARS-CoV-2, RNA, NAAT NEGATIVE (NEGATIVE) Blood Parasites ID Cancelled Blood Type Blood Type Recheck Antibody Screen Crossmatch 02/02/22 02/02/22 02/02/22 Range/Units 10:12 10:12 10:12 WBC (4.8-10.8) K/ul RBC (3.93-5.22) M/uL Hgb (12.0-16.0) g/dl Hct (34.1-44.9) % MCV (80.0-100.0) fL MCH (25.0-34.0) pg MCHC (32.0-36.0) g/dL RDW Std Deviation (36.4-46.3) fL RDW Coeff of Atul (11.5-14.5) % Plt Count (130-400) K/uL MPV (9.4-12.3) fL Immature Gran % (Auto) Neut % (Auto) Lymph % (Auto) Brewster % (Auto) Eos % (Auto) Baso % (Auto) Neut # (Auto) Lymph # (Auto) Brewster # (Auto) Eos # (Auto) Baso # (Auto) Immature Gran # (Auto) Neutrophils % (Manual) Band Neutrophils % Lymphocytes % (Manual) Prolymphocyte % Reactive Lymphs % (Man) Monocytes % (Manual) Eosinophils % (Manual) Basophils % (Manual) Metamyelocytes % (Man) Myelocytes % (Man) Promyelocytes % (Man) Blast Cells % (Manual) Plasma Cell % (Manual) Other Cells % Nucleated RBC % Neutrophils # (Manual) Band Neutrophils # Total Absolute Neuts Lymphocytes # (Manual) Prolymphocyte # Reactive Lymphs # Total Abs Lymphocytes Monocytes # (Manual) Eosinophils # (Manual) Basophils # (Manual) Metamyelocytes # (Man) Myelocytes # (Manual) Promyelocytes # (Man) Blast Cells # (Man) Plasma Cell # (Manual) Other Cells # Nucleated RBCs # (Man) Hypersegmented Neuts Hyposegmented Neuts Hypogranular Neuts Large Granular Lymphs # Lrg Granular Lymphs Hairy Cells Smudge Cells Toxic Granulation Toxic Vacuolation Dohle Bodies Jose Rods Hypogranular Platelets Clumped Platelets Giant Platelets Platelet Satelliting RBC Morphology Polychromasia Hypochromasia Poikilocytosis Basophilic Stippling Anisocytosis Microcytosis Macrocytosis Spherocytes Pappenheimer Bodies Sickle Cells Target Cells Tear Drop Cells Ovalocytes Stomatocytes Sood-Gardena Bodies Echinocytes Acanthocytes (Spur) Rouleaux RBC Agglutinates Schistocytes Sezary Cell PT (9.0-12.0) Seconds INR (0.9-1.1) APTT (21.0-31.0) Seconds PTT Ratio Sodium 137 (136-145) mmol/L Potassium 4.0 (3.5-5.1) mmol/L Chloride 98 (98-107) mmol/L Carbon Dioxide 30 (21-32) mmol/L Anion Gap 9 (3-11) BUN 19 (6-23) mg/dl Creatinine 0.78 (0.6-1.2) mg/dl Est Cr Clr Drug Dosing 56.2 ml/min Est GFR ( Amer) 84.4 ml/min Est GFR (Non-Af Amer) 72.8 ml/min BUN/Creatinine Ratio 24.4 H (10-20) Glucose 125 H (70-99(Fasting)) mg/dl Lactate (0.4-2.0) mmol/L Calcium 8.7 (8.5-10.1) mg/dl Magnesium 2.0 (1.7-2.4) mg/dl Total Bilirubin 1.2 H (0.2-1.0) mg/dl AST 19 (13-39) U/L ALT 26 (7-52) U/L Alkaline Phosphatase 82 (34-104) U/L Troponin I High Sens 19.6 H D (0-14) pg/ml B-Natriuretic Peptide 349 H (0-100) pg/ml Total Protein 5.6 L (6.0-8.3) gm/dl Albumin 3.1 L (3.4-5.0) gm/dl Globulin 2.5 (2.5-4.0) gm/dl Albumin/Globulin Ratio 1.2 (0.9-2) Procalcitonin 0.42 (0-0.5) ng/ml TSH (0.300-4.500) uIu/ml SARS-CoV-2, RNA, NAAT (NEGATIVE) Blood Parasites ID Blood Type Blood Type Recheck Antibody Screen Crossmatch 02/02/22 02/02/22 02/02/22 Range/Units 10:12 10:15 10:58 WBC (4.8-10.8) K/ul RBC (3.93-5.22) M/uL Hgb (12.0-16.0) g/dl Hct (34.1-44.9) % MCV (80.0-100.0) fL MCH (25.0-34.0) pg MCHC (32.0-36.0) g/dL RDW Std Deviation (36.4-46.3) fL RDW Coeff of Atul (11.5-14.5) % Plt Count (130-400) K/uL MPV (9.4-12.3) fL Immature Gran % (Auto) Neut % (Auto) Lymph % (Auto) Brewster % (Auto) Eos % (Auto) Baso % (Auto) Neut # (Auto) Lymph # (Auto) Brewster # (Auto) Eos # (Auto) Baso # (Auto) Immature Gran # (Auto) Neutrophils % (Manual) Band Neutrophils % Lymphocytes % (Manual) Prolymphocyte % Reactive Lymphs % (Man) Monocytes % (Manual) Eosinophils % (Manual) Basophils % (Manual) Metamyelocytes % (Man) Myelocytes % (Man) Promyelocytes % (Man) Blast Cells % (Manual) Plasma Cell % (Manual) Other Cells % Nucleated RBC % Neutrophils # (Manual) Band Neutrophils # Total Absolute Neuts Lymphocytes # (Manual) Prolymphocyte # Reactive Lymphs # Total Abs Lymphocytes Monocytes # (Manual) Eosinophils # (Manual) Basophils # (Manual) Metamyelocytes # (Man) Myelocytes # (Manual) Promyelocytes # (Man) Blast Cells # (Man) Plasma Cell # (Manual) Other Cells # Nucleated RBCs # (Man) Hypersegmented Neuts Hyposegmented Neuts Hypogranular Neuts Large Granular Lymphs # Lrg Granular Lymphs Hairy Cells Smudge Cells Toxic Granulation Toxic Vacuolation Dohle Bodies Jose Rods Hypogranular Platelets Clumped Platelets Giant Platelets Platelet Satelliting RBC Morphology Polychromasia Hypochromasia Poikilocytosis Basophilic Stippling Anisocytosis Microcytosis Macrocytosis Spherocytes Pappenheimer Bodies Sickle Cells Target Cells Tear Drop Cells Ovalocytes Stomatocytes Sood-Gardena Bodies Echinocytes Acanthocytes (Spur) Rouleaux RBC Agglutinates Schistocytes Sezary Cell PT (9.0-12.0) Seconds INR (0.9-1.1) APTT (21.0-31.0) Seconds PTT Ratio Sodium (136-145) mmol/L Potassium (3.5-5.1) mmol/L Chloride (98-107) mmol/L Carbon Dioxide (21-32) mmol/L Anion Gap (3-11) BUN (6-23) mg/dl Creatinine (0.6-1.2) mg/dl Est Cr Clr Drug Dosing ml/min Est GFR ( Amer) ml/min Est GFR (Non-Af Amer) ml/min BUN/Creatinine Ratio (10-20) Glucose (70-99(Fasting)) mg/dl Lactate 1.1 (0.4-2.0) mmol/L Calcium (8.5-10.1) mg/dl Magnesium (1.7-2.4) mg/dl Total Bilirubin (0.2-1.0) mg/dl AST (13-39) U/L ALT (7-52) U/L Alkaline Phosphatase (34-104) U/L Troponin I High Sens (0-14) pg/ml B-Natriuretic Peptide (0-100) pg/ml Total Protein (6.0-8.3) gm/dl Albumin (3.4-5.0) gm/dl Globulin (2.5-4.0) gm/dl Albumin/Globulin Ratio (0.9-2) Procalcitonin (0-0.5) ng/ml TSH 0.844 (0.300-4.500) uIu/ml SARS-CoV-2, RNA, NAAT (NEGATIVE) Blood Parasites ID Blood Type A Positive Blood Type Recheck Antibody Screen NEGATIVE Crossmatch See Detail 02/02/22 02/02/22 Range/Units 10:58 11:30 WBC (4.8-10.8) K/ul RBC (3.93-5.22) M/uL Hgb 7.3 L (12.0-16.0) g/dl Hct 22.1 L (34.1-44.9) % MCV (80.0-100.0) fL MCH (25.0-34.0) pg MCHC (32.0-36.0) g/dL RDW Std Deviation (36.4-46.3) fL RDW Coeff of Atul (11.5-14.5) % Plt Count (130-400) K/uL MPV (9.4-12.3) fL Immature Gran % (Auto) Neut % (Auto) Lymph % (Auto) Brewster % (Auto) Eos % (Auto) Baso % (Auto) Neut # (Auto) Lymph # (Auto) Brewster # (Auto) Eos # (Auto) Baso # (Auto) Immature Gran # (Auto) Neutrophils % (Manual) Band Neutrophils % Lymphocytes % (Manual) Prolymphocyte % Reactive Lymphs % (Man) Monocytes % (Manual) Eosinophils % (Manual) Basophils % (Manual) Metamyelocytes % (Man) Myelocytes % (Man) Promyelocytes % (Man) Blast Cells % (Manual) Plasma Cell % (Manual) Other Cells % Nucleated RBC % Neutrophils # (Manual) Band Neutrophils # Total Absolute Neuts Lymphocytes # (Manual) Prolymphocyte # Reactive Lymphs # Total Abs Lymphocytes Monocytes # (Manual) Eosinophils # (Manual) Basophils # (Manual) Metamyelocytes # (Man) Myelocytes # (Manual) Promyelocytes # (Man) Blast Cells # (Man) Plasma Cell # (Manual) Other Cells # Nucleated RBCs # (Man) Hypersegmented Neuts Hyposegmented Neuts Hypogranular Neuts Large Granular Lymphs # Lrg Granular Lymphs Hairy Cells Smudge Cells Toxic Granulation Toxic Vacuolation Dohle Bodies Jose Rods Hypogranular Platelets Clumped Platelets Giant Platelets Platelet Satelliting RBC Morphology Polychromasia Hypochromasia Poikilocytosis Basophilic Stippling Anisocytosis Microcytosis Macrocytosis Spherocytes Pappenheimer Bodies Sickle Cells Target Cells Tear Drop Cells Ovalocytes Stomatocytes Sood-Gardena Bodies Echinocytes Acanthocytes (Spur) Rouleaux RBC Agglutinates Schistocytes Sezary Cell PT (9.0-12.0) Seconds INR (0.9-1.1) APTT (21.0-31.0) Seconds PTT Ratio Sodium (136-145) mmol/L Potassium (3.5-5.1) mmol/L Chloride (98-107) mmol/L Carbon Dioxide (21-32) mmol/L Anion Gap (3-11) BUN (6-23) mg/dl Creatinine (0.6-1.2) mg/dl Est Cr Clr Drug Dosing ml/min Est GFR ( Amer) ml/min Est GFR (Non-Af Amer) ml/min BUN/Creatinine Ratio (10-20) Glucose (70-99(Fasting)) mg/dl Lactate (0.4-2.0) mmol/L Calcium (8.5-10.1) mg/dl Magnesium (1.7-2.4) mg/dl Total Bilirubin (0.2-1.0) mg/dl AST (13-39) U/L ALT (7-52) U/L Alkaline Phosphatase (34-104) U/L Troponin I High Sens (0-14) pg/ml B-Natriuretic Peptide (0-100) pg/ml Total Protein (6.0-8.3) gm/dl Albumin (3.4-5.0) gm/dl Globulin (2.5-4.0) gm/dl Albumin/Globulin Ratio (0.9-2) Procalcitonin (0-0.5) ng/ml TSH (0.300-4.500) uIu/ml SARS-CoV-2, RNA, NAAT (NEGATIVE) Blood Parasites ID Blood Type Blood Type Recheck A Positive Antibody Screen Crossmatch Administered Medications Diltiazem HCl 125 mg/ Dextrose 125 mls @ 5 mls/hr IV .Q24H [facility]; Protocol Stop: 03/04/22 13:44 Last Admin: 02/02/22 14:15 Dose: 5 mg/hr, 5 mls/hr Documented By: JESUSITA Co-signed By: DANY Discontinued Medications Diltiazem HCl (Diltiazem Hcl 5 Mg/Ml 5 Ml Vial) 10 mg IV NOW STA Stop: 02/02/22 08:38 Last Admin: 02/02/22 08:42 Dose: 10 mg Documented By: NATHALY Co-signed By: GUMARO Diltiazem HCl (Diltiazem Hcl 5 Mg/Ml 5 Ml Vial) 10 mg IV NOW STA Stop: 02/02/22 13:40 Last Admin: 02/02/22 14:15 Dose: 10 mg Documented By: JESUSITA Co-signed By: DANY Sodium Chloride (Nss 1000ml) 250 mls @ 999 mls/hr IV .Q16M ONE Stop: 02/02/22 09:54 Last Infusion: 02/02/22 11:11 Dose: 0 mls/hr Documented By: Admin: 02/02/22 10:23 Dose: 999 mls/hr Documented By: GUMARO Methylprednisolone (Methylprednisolone 125 Mg/2 Ml Vial) 125 mg IV NOW STA Stop: 02/02/22 08:36 Last Admin: 02/02/22 08:42 Dose: 125 mg Documented By: NATHALY Imaging Data Radiologist's Impression: Chest X-Ray 02/02/22 08:35 XR chest 1V portable CLINICAL HISTORY: Dyspnea. Small cell lung cancer. COMPARISON STUDY: Chest CT December 26, 2021. Chest radiograph December 17, 2021. FINDINGS: Left subclavian [id number] is in place. There is no pneumothorax or pleural effusion. Elevation of the left hemidiaphragm is unchanged. Conspicuity of the left upper lobe mass has diminished. Mild right basilar opacity favors atelectasis. Cardiomegaly is unchanged. There is no evidence for pulmonary edema. No consolidation is identified to suggest pneumonia. IMPRESSION: 1. No acute cardiopulmonary findings. 2. Continued decrease in size of the left upper lobe mass. 3. Right basilar opacity which favors atelectasis. ACT 112: Negative or not required by law. Electronically signed by: Sanchez Begum M.D. 02/02/2022 9:34 AM Discharge Plan Visit Data Chief Complaint: Chest Pain Stated Complaint: CHEST PAIN, SOB ED Provider: Ricardo Cruz Discharge Problem: Atrial flutter with rapid ventricular response, Small cell lung cancer, Chest pain, Anemia, Breathlessness Patient Disposition: Admitted As Inpatient Discharge Instructions Interventions: ED Discharge Assessment Last Done: 02/02/22 12:29
--- NOTE | 2022-02-02 09:35 | XRay Report ---
XR chest 1V portable CLINICAL HISTORY: Dyspnea. Small cell lung cancer. COMPARISON STUDY: Chest CT December 26, 2021. Chest radiograph December 17, 2021. FINDINGS: Left subclavian [id number] is in place. There is no pneumothorax or pleural effusion. El evation of the left hemidiaphragm is unchanged. Conspicuity of the left upper lobe mass has diminishe d. Mild right basilar opacity favors atelectasis. Cardiomegaly is unchanged. There is no evidence for pulmonary edema. No consolidation is identified to suggest pneumonia. IMPRESSION: 1. No acute cardiopulmonary findings. 2. Continued decrease in size of the left upper lobe mass. 3. Right basilar opacity which favors atelectasis. ACT 112: Negative or not required by law. Electronically signed by: Sanchez Begum M.D. 02/02/2022 9:34 AM
[2022-02-02] MEDS ORDERED: SODIUM CHLORIDE 0.9% 1000ML 250 ML IV ONE (09:39)
[2022-02-02 10:42] LABS: INR 1.1 (0.9-1.1); Partial Thromboplastin Ratio 1.1; Partial Thromboplastin Time 29.3 Seconds (21.0-31.0); Prothrombin Time 11.6 Seconds (9.0-12.0)
[2022-02-02 10:44] LABS: Hematocrit (blood only) 16.5 % (34.1-44.9); Hemoglobin 5.3 g/dl (12.0-16.0); Mean Corpuscular Hemoglobin 29.9 pg (25.0-34.0); Mean Corpuscular Hgb Conc 32.1 g/dL (32.0-36.0); Mean Corpuscular Volume 93.2 fL (80.0-100.0); Mean Platelet Volume 10.3 fL (9.4-12.3); Platelet Count 70 K/uL (130-400); RDW Coefficient of Variation 15.4 % (11.5-14.5); RDW Standard Deviation 48.2 fL (36.4-46.3); Red Blood Count 1.77 M/uL (3.93-5.22); White Blood Count 0.43 K/ul (4.8-10.8)
[2022-02-02 11:00] LABS: Troponin I High Sensitivity 19.6 pg/ml (0-14)
[2022-02-02 11:04] LABS: Albumin Globulin Ratio 1.2 (0.9-2); Albumin Level 3.1 gm/dl (3.4-5.0); BUN Creatinine Ratio 24.4 (10-20); Bilirubin,Total 1.2 mg/dl (0.2-1.0); Calcium 8.7 mg/dl (8.5-10.1); Creatinine Clr Calc Pharmacy 56.2 ml/min; Est GFR (African American) 84.4 ml/min; Est GFR (Non-African American) 72.8 ml/min; Globulin 2.5 gm/dl (2.5-4.0); Total Protein 5.6 gm/dl (6.0-8.3)
[2022-02-02 11:14] LABS: Hematocrit (blood only) 22.1 % (34.1-44.9); Hemoglobin 7.3 g/dl (12.0-16.0)
[2022-02-02] MEDS ORDERED: SODIUM CHLORIDE 0.9% 250 ML IV PRN (11:22)
[2022-02-02] MEDS ORDERED: ACETAMINOPHEN 325 MG TAB PO PRN (12:05)
--- NOTE | 2022-02-02 12:45 | History & Physical Report ---
Date of Service February 02, 2022 Assessment & Plan (1) Atrial flutter with rapid ventricular response: Plan: Patient found to be in atrial flutter with RVR. Given low blood pressure, patient may be a candidate for cardioversion. Consult cardio. will place on diltiazem drip. will montior heart rate. place on IV heparin will defer medical pathologist anticoagulation to cardio (2) Anemia: Plan: Pancytopenia from chemotherapy. All cell lines are down secondary to recent chemotherapy -Follow CBC in the morning -Transfusional support as above, -Okay to start heparin drip will reheck levels in AM. will transfuse PRBC (3) Breathlessness: Plan: as above (4) Small cell lung cancer: Plan: Recently diagnosed and started on chemotherapy and radiation will hold oral chemo medications due to pancytopenia (5) Diabetes mellitus, type 2: Plan: as above recent a1c is 6.8consult glycemic control (6) Polymyalgia rheumatica: Plan: will resume prednisone in AM. received solumedrol in ER Admission and Anticipated Discharge Date Admission Date: February 02, 2022 History of Present Illness Chief Complaint: worsening SOB Primary Care Provider: Chandan Bro MD 76 yo female with PMH described below. Patient has extensive cancer history. Currently receiving chemotherapy and radiation for small cell lung cancer. Patient has one more course of chemotherapy. Patient who normally feels short of breath at exertion (waking around the house), noted worsening SOB yesterday evening which prompted her to come to the ER. She was found to be pancytopenic which prompted a call to the hospitalist service. Patient found to be tachycardic. Allergies Allergy/AdvReac Type Severity Reaction Status Date / Time castor oil Allergy Severe "TAXANES" Verified 01/23/22 11:47 CAUSE DYSPNEA, RASH, ELEVATED BP docetaxel [From Taxotere] Allergy Severe "TAXANES" Verified 01/23/22 11:47 CAUSE DYSPNEA, RASH, ELEVATED BP paclitaxel Allergy Severe "TAXANES" Verified 01/23/22 11:47 CAUSE DYSPNEA, RASH, ELEVATED BP trimethoprim [From Bactrim] Allergy Severe Anaphylaxis Verified 01/23/22 11:47 Iodinated Contrast Media Allergy Intermediate HIVES/ITCHI Verified 01/23/22 11:47 NG nitrofurantoin Allergy Intermediate CHEST Verified 01/23/22 11:47 PAIN, DYSPNEA Sulfa (Sulfonamide Allergy Intermediate HIVES, Verified 01/23/22 11:47 Antibiotics) ITCHINESS, SHORTNESS OF BREATH phenazopyridine AdvReac Intermediate N/V Verified 01/23/22 11:47 codeine AdvReac COLD Verified 01/23/22 11:47 SWEAT, THINGS START SPINNING, NAUSEA Home Medications Medication Instructions Recorded Confirmed Type metformin 850 mg tablet 850 mg PO BID 07/05/21 01/22/22 History nortriptyline 25 mg capsule 25 mg PO HS #90 caps 11/04/21 01/22/22 Rx alendronate 70 mg tablet (Fosamax) 70 mg PO WEEKLY #4 tabs 11/21/21 01/22/22 Rx folic acid 1 mg tablet 1 mg PO QPM #30 tabs 11/21/21 01/22/22 Rx cholecalciferol (vitamin D3) 25 25 mcg PO DAILY 12/01/21 01/22/22 History mcg (1,000 unit) capsule mecobalamin (vitamin B12) 1,000 1,000 mcg sublingual DAILY 12/01/21 01/22/22 History mcg disintegrating tablet,sublingual ipratropium 0.5 mg-albuterol 3 mg 3 ml inhalation Q6H PRN wheezing 12/05/21 01/22/22 Rx (2.5 mg base)/3 mL nebulization #360 mL soln nebulizers #1 ea 12/05/21 01/22/22 Rx fluticasone furoate 100 1 inh inhalation DAILY #60 ea 12/07/21 01/22/22 Rx mcg-vilanterol 25 mcg/dose inhalation powder (Breo Ellipta) umeclidinium 62.5 mcg/actuation 1 inh inhalation DAILY #30 ea 12/07/21 01/22/22 Rx blister powder for inhalation (Incruse Ellipta) diltiazem HCl 240 mg 240 mg PO QAM #30 caps 12/28/21 01/22/22 Rx capsule,extended release 24 hr prednisone 10 mg tablet See Rx Instructions .Route 12/28/21 01/22/22 Rx .COMPLEX #30 tabs omeprazole 20 mg capsule,delayed 20 mg PO QPM #90 caps 12/29/21 01/22/22 Rx release Magic Mouthwash 300 mL mouthwash 10 ml mucous membrane ACHS 01/11/22 01/22/22 Rx Dysphagia #300 mL furosemide 20 mg tablet (Lasix) 40 mg PO QAM 01/16/22 01/23/22 History albuterol sulfate 90 mcg/actuation 2 puff inhalation 6XD PRN Wheezing 01/22/22 01/23/22 History aerosol inhaler (Ventolin HFA) docusate sodium 100 mg capsule 100 mg PO BID #60 caps 01/22/22 01/23/22 Rx (Colace) polyethylene glycol 3350 17 17 g PO DAILY #238 grams 01/22/22 01/23/22 Rx gram/dose oral powder (Miralax) sucralfate 1 gram tablet (Carafate) 1 g PO ACHS 01/22/22 01/23/22 History celecoxib 100 mg capsule (Celebrex) 100 mg PO QPM #30 caps 01/30/22 Rx Past Med/Surg History Medical History (Updated 02/03/22 @ 07:01 by Ace Steinberg) Asthma (04/25/12) Stable and controlled Chronic dyspnea Chronic obstructive pulmonary disease STABLE- CONTROLLED- ALBUTEROL USE THIS AM COPD (chronic obstructive pulmonary disease) COPD exacerbation Diabetes mellitus, type 2 NIDDM- WELL CONTROLLED AND STABLE Endometrial thickening on ultrasound Ex-smoker GERD (gastroesophageal reflux disease) Hearing deficit NO AIDS Hemoptysis History of breast cancer RIGHT S/P LUMPECTOMY/CHEMO/RADATION (2009)- STABLE AT THIS TIME History of diverticulitis History of liver disease 03/2019 [place] FOR LIVER ABSCESS- GIVEN ABXS X MONTHS- FOLLOWING WITH [facility] FOR MONITORING -RECENT CT SCAN 06/16/19- SHOWS ABSCESS TO BE DECREASED TO 3.5CM (SURGEON IS AWARE) Hx of bladder cancer HAD BCG INSTILLATION - DX: 2012 Left rib fracture (2017) Liver abscess Lower extremity edema Malignant neoplasm of lung Bronch with biopsy on 11/15/21 Migraine HX Osteoporosis Osteoporosis Pancytopenia due to antineoplastic chemotherapy PMR (polymyalgia rheumatica) PMR (polymyalgia rheumatica) CHRONIC Port-A-Cath in place Small cell lung cancer Tobacco abuse Tremor RIGHT HAND Ureteral tumor Vertebral fracture LUMBAR AND THORACIC Surgical History H/O cystoscopy SEVERAL History of appendectomy History of arthroscopy B/L KNEE History of breast biopsy History of bronchoscopy 11/15/21 History of cholecystectomy History of colonoscopy History of elbow surgery RIGHT History of lumpectomy of right breast History of surgery TURBT X 2; TURBT, CYSTO, RIGHT RPG, STENT: 07/11/18: LMA#4 AT [facility] History of surgery LEFT CHEST PORT Nausea and vomiting after administration of anesthetic agent Family History Other Adopted Family history unknown Social History Smoking Status: Former smoker Tobacco Type: Cigarettes Cigarettes Per Day: 6; Second Hand Exposure: Yes; Hx Alcohol Use: No Hx Substance Use: No Preferred Language: Greek Communication Ability: Effective Visual Impairment: No Limitations Hearing Ability: Normal Scientific Publications Editor Required: No Beliefs That Will Affect Care: None marital status: Single Current Living Situation: Other Current Living Situation Comment: lives with roommate current occupational status: retired Feels Safe at Home: Yes Childhood Exposure to Second-Hand Smoke: Yes caffeine: No during the past year weight has: remained stable Dental Care, Regularly: Yes Physical Activity Frequency: 1-2 Times per Week Seatbelt Use: always Sunscreen Use: Yes Assistive Devices: Walker Review of Systems Constitutional: no fever Eyes: no blind spots Ear, Nose, Mouth, Throat: no ear pain Respiratory: no cough Cardiovascular: no chest pain Gastrointestinal: no abdominal pain Genitourinary: no dysuria Musculoskeletal: no back pain Integumentary: no acne Neurologic: no gait abnormality Psychiatric: no behavioral changes Endocrine: + fatigue Hematologic / Lymphatic: no easy bleeding Allergy / Immunological: no GI upset with certain foods Physical Exam Physical Exam: Constitutional: WD/WN, vitals as above Eyes: PERRL, conjunctivae normal, anicteric sclerae ENMT: external ear and nose normal, oropharynx normal Neck: trachea midline, no thyromegaly Respiratory: normal respiratory effort; no labored breathing and no cough Auscultation: no wheezing, no crackles and no rhonchi Cardiovascular: Rate/Rhythm: regular rhythm and + tachycardic Heart Sounds: no murmur Vessels: dorsalis pedis pulses present Extremities: + edema (2+ pitting edema of the legs to the knees bilaterally); no calf tenderness Chest (Breasts): Chest: + vascular access device or port (Left chest) Gastrointestinal (Abdomen): normal bowel sounds, soft, nontender, no hepatosplenomegaly Musculoskeletal: Extremities: no cyanosis and no clubbing Skin: no rashes, warm and dry Neurologic: moves all extremities and awake; no focal motor deficits Psychiatric: A+Ox3, euthymic affect Results & Data Results & Data ([facility]) Vital Signs (Past 12 Hours) Vital Signs Temp Pulse Pulse Resp BP BP Pulse Ox 02/02/22 12:00 154 H 21 117/81 95 02/02/22 10:24 158 H 21 98 02/02/22 08:39 36.4 C L 160 H 17 112/68 95 02/02/22 08:39 95 02/02/22 08:39 160 H 17 95 02/02/22 08:39 36.4 C L 160 H 17 112/68 95 O2 Del Method O2 Flow Rate 02/02/22 12:00 Nasal Cannula 2 02/02/22 10:24 Nasal Cannula 2 02/02/22 08:39 Nasal Cannula 2 02/02/22 08:39 Nasal Cannula 02/02/22 08:39 Nasal Cannula 2 02/02/22 08:39 Nasal Cannula 2 Code Status & VTE Plan VTE Prophylaxis Plan VTE Prophylaxis will be ordered: Yes PG Care Time/CCT Total # of Minutes Spent Total Time Spent with Patient: Total time spent is greater than 50% in coordination of care (as documented) at patient's floor/unit and/or counseling patient: Coding Level of Care Code 73659 Initial Inpt Care Lvl 3 Diagnoses Atrial flutter with rapid ventricular response I48.92 Anemia D64.9 Breathlessness R06.81 Small cell lung cancer C34.90 Diabetes mellitus, type 2 E11.9 Polymyalgia rheumatica M35.3
--- NOTE | 2022-02-02 13:29 | Electrocardiogram Report ---
Test Reason : Blood Pressure : / mmHG Vent. Rate : 160 BPM Atrial Rate : 160 BPM P-R Int : 000 ms QRS Dur : 120 ms QT Int : 264 ms P-R-T Axes : 000 -53 056 degrees QTc Int : 430 ms Poor data quality, interpretation may be adversely affected Atrial flutter Left axis deviation Right bundle branch block Minimal voltage criteria for LVH, may be normal variant Abnormal ECG When compared with ECG of 25-DEC-2021 05:26, Atrial flutter has replaced sinus rhythm Confirmed by Lion Dupree ([id number]) on 02/02/2022 1:28:57 PM Referred By: Confirmed By:Dontrell Dupree
[2022-02-02] MEDS ORDERED: STAT IV Infusion **Titration per Protocol STA (13:39)
[2022-02-02] MEDS ORDERED: dilTIAZem HCL 125 MG in DEXTROSE 5% 100 ML IV SCH (13:45)
--- NOTE | 2022-02-02 15:08 | Cardiology Consultation ---
Date of Consultation February 02, 2022 Assessment & Plan (1) Atrial flutter with rapid ventricular response: (2) Chest pain: (3) Elevated troponin: Plan 1. Atrial flutter: She appears to have developed a typical right atrial flutter based on her EKG appearance. She measures her heart rate on a daily basis and generally has readings between 90 and 100. However, the time of presentation heart rate was 150 beats per minute. This would suggest that her arrhythmia started within the last 24 hours. It is possible that it accounts for some of her symptoms as well as the elevation in her cardiac biomarkers. I doubt that rate control agents will have much effect. She will likely need a return to sinus rhythm. She has eaten today. She is hemodynamically stable. I think we will try oral dose of flecainide. If this is unsuccessful she should be made ready for electrical cardioversion tomorrow. At this point she did not entirely agree with being put to sleep and cardioverted. With respect to anticoagulation, we will start her on unfractionated heparin. We can decide on the best long-term management. Despite being anemic, it is unlikely that she has active bleeding. She has reduced cell lines and likely side effects from her chemotherapy. Platelet count appears adequate. 2. Elevated troponin: Likely demand ischemia in the setting of tachycardia, anemia and likely element of hypoxia. 3. Chest pain: She reports some pleuritic component to her chest pain. Possibly ischemia as well given the tachycardia anemia. Symptoms appear to be improved currently. She is receiving blood. Will attempt to control her heart rate as well. Will order limited echocardiogram in order to exclude an effusion. 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 She has been undergoing both radiation and chemotherapy with some side effects from the treatment. He began to feel poorly early this morning. Symptoms involves some breathing difficulty and a sense of chest tightness. She has approximately 1 and half weeks out from her last treatment and reports generally feeling poorly around this time. She presented to the emergency room he was found to have an elevated heart rate. An EKG suggested atrial flutter. Patient states that she is ambulatory but does minimal walking due to persistent back pain and breathing difficulty. She denies symptoms of dizziness lightheadedness recently. She does have fatigue. She has not been aware of palpitations. She does monitor her heart rate daily. She states that generally speaking she has an element of tachycardia, but 150 beats per minute is unusual for her. Allergies Allergy/AdvReac Type Severity Reaction Status Date / Time castor oil Allergy Severe "TAXANES" Verified 01/23/22 11:47 CAUSE DYSPNEA, RASH, ELEVATED BP docetaxel [From Taxotere] Allergy Severe "TAXANES" Verified 01/23/22 11:47 CAUSE DYSPNEA, RASH, ELEVATED BP paclitaxel Allergy Severe "TAXANES" Verified 01/23/22 11:47 CAUSE DYSPNEA, RASH, ELEVATED BP trimethoprim [From Bactrim] Allergy Severe Anaphylaxis Verified 01/23/22 11:47 Iodinated Contrast Media Allergy Intermediate HIVES/ITCHI Verified 01/23/22 11:47 NG nitrofurantoin Allergy Intermediate CHEST Verified 01/23/22 11:47 PAIN, DYSPNEA Sulfa (Sulfonamide Allergy Intermediate HIVES, Verified 01/23/22 11:47 Antibiotics) ITCHINESS, SHORTNESS OF BREATH phenazopyridine AdvReac Intermediate N/V Verified 01/23/22 11:47 codeine AdvReac COLD Verified 01/23/22 11:47 SWEAT, THINGS START SPINNING, NAUSEA Home Medications Medication Instructions Recorded Confirmed Type metformin 850 mg tablet 850 mg PO BID 07/05/21 01/22/22 History nortriptyline 25 mg capsule 25 mg PO HS #90 caps 11/04/21 01/22/22 Rx alendronate 70 mg tablet (Fosamax) 70 mg PO WEEKLY #4 tabs 11/21/21 01/22/22 Rx folic acid 1 mg tablet 1 mg PO QPM #30 tabs 11/21/21 01/22/22 Rx cholecalciferol (vitamin D3) 25 25 mcg PO DAILY 12/01/21 01/22/22 History mcg (1,000 unit) capsule mecobalamin (vitamin B12) 1,000 1,000 mcg sublingual DAILY 12/01/21 01/22/22 History mcg disintegrating tablet,sublingual ipratropium 0.5 mg-albuterol 3 mg 3 ml inhalation Q6H PRN wheezing 12/05/21 01/22/22 Rx (2.5 mg base)/3 mL nebulization #360 mL soln nebulizers #1 ea 12/05/21 01/22/22 Rx fluticasone furoate 100 1 inh inhalation DAILY #60 ea 12/07/21 01/22/22 Rx mcg-vilanterol 25 mcg/dose inhalation powder (Breo Ellipta) umeclidinium 62.5 mcg/actuation 1 inh inhalation DAILY #30 ea 12/07/21 01/22/22 Rx blister powder for inhalation (Incruse Ellipta) diltiazem HCl 240 mg 240 mg PO QAM #30 caps 12/28/21 01/22/22 Rx capsule,extended release 24 hr prednisone 10 mg tablet See Rx Instructions .Route 12/28/21 01/22/22 Rx .COMPLEX #30 tabs omeprazole 20 mg capsule,delayed 20 mg PO QPM #90 caps 12/29/21 01/22/22 Rx release Magic Mouthwash 300 mL mouthwash 10 ml mucous membrane ACHS 01/11/22 01/22/22 Rx Dysphagia #300 mL furosemide 20 mg tablet (Lasix) 40 mg PO QAM 01/16/22 01/23/22 History albuterol sulfate 90 mcg/actuation 2 puff inhalation 6XD PRN Wheezing 01/22/22 01/23/22 History aerosol inhaler (Ventolin HFA) docusate sodium 100 mg capsule 100 mg PO BID #60 caps 01/22/22 01/23/22 Rx (Colace) polyethylene glycol 3350 17 17 g PO DAILY #238 grams 01/22/22 01/23/22 Rx gram/dose oral powder (Miralax) sucralfate 1 gram tablet (Carafate) 1 g PO ACHS 01/22/22 01/23/22 History celecoxib 100 mg capsule (Celebrex) 100 mg PO QPM #30 caps 01/30/22 Rx Patient History Medical History Asthma (04/25/12) Stable and controlled Chronic dyspnea Chronic obstructive pulmonary disease STABLE- CONTROLLED- ALBUTEROL USE THIS AM COPD (chronic obstructive pulmonary disease) COPD exacerbation Diabetes mellitus, type 2 NIDDM- WELL CONTROLLED AND STABLE Endometrial thickening on ultrasound Ex-smoker GERD (gastroesophageal reflux disease) Hearing deficit NO AIDS Hemoptysis History of breast cancer RIGHT S/P LUMPECTOMY/CHEMO/RADATION (2009)- STABLE AT THIS TIME History of diverticulitis History of liver disease 03/2019 [facility] FOR LIVER ABSCESS- GIVEN ABXS X MONTHS- FOLLOWING WITH HEME FOR MONITORING -RECENT CT SCAN 06/16/19- SHOWS ABSCESS TO BE DECREASED TO 3.5CM (SURGEON IS AWARE) Hx of bladder cancer HAD BCG INSTILLATION - DX: 2012 Left rib fracture (2016) Liver abscess Lower extremity edema Malignant neoplasm of lung Bronch with biopsy on 11/15/21 Migraine HX Osteoporosis Osteoporosis Pancytopenia due to antineoplastic chemotherapy PMR (polymyalgia rheumatica) PMR (polymyalgia rheumatica) CHRONIC Port-A-Cath in place Small cell lung cancer Tobacco abuse Tremor RIGHT HAND Ureteral tumor Vertebral fracture LUMBAR AND THORACIC Surgical History H/O cystoscopy SEVERAL History of appendectomy History of arthroscopy B/L KNEE History of breast biopsy History of bronchoscopy 11/15/21 History of cholecystectomy History of colonoscopy History of elbow surgery RIGHT History of lumpectomy of right breast History of surgery TURBT X 2; TURBT, CYSTO, RIGHT RPG, STENT: 07/11/18: LMA#4 AT [facility] History of surgery LEFT CHEST PORT Nausea and vomiting after administration of anesthetic agent Family History Other Adopted Family history unknown Social History Smoking Status: Former smoker Tobacco Type: Cigarettes Cigarettes Per Day: 6; Second Hand Exposure: Yes; Hx Alcohol Use: No Hx Substance Use: No Preferred Language: Telugu Communication Ability: Effective Visual Impairment: No Limitations Hearing Ability: Normal Informatics Manager Required: No Beliefs That Will Affect Care: None marital status: Single Current Living Situation: Other Current Living Situation Comment: lives with roommate current occupational status: retired Feels Safe at Home: Yes Childhood Exposure to Second-Hand Smoke: Yes caffeine: No during the past year weight has: remained stable Dental Care, Regularly: Yes Physical Activity Frequency: 1-2 Times per Week Seatbelt Use: always Sunscreen Use: Yes Assistive Devices: Walker Review of Systems Review of Systems: Per HPI. No recent fevers or chills. Physical Exam Physical Exam: She is alert and oriented x3. Mood affect appear normal. She answered all questions appropriately. HEENT: Sclerae are anicteric. Pupils are equal and reactive to light and accommodation. Extraocular movements were intact. Alopecia noted Neuro: Cranial nerves intact Lungs: Normal respiratory effort. Crackles at the bases of both lung hernandez. Prolonged expiratory phase without expiratory Cardiac: The rhythm was regular but fast. S1 and S2 were normal. There are no murmurs on examination. The PMI was not markedly displaced on palpation. Extremities: Patient has bilateral radial pulses that are equal in intensity. There is no evidence cyanosis or clubbing. Moderate lower extremity pitting edema bilaterally. Skin: There are no rashes noted on examination today. Results & Data ([facility]) Vital Signs (Past 12 Hours) Vital Signs Temp Pulse Pulse Resp BP BP Pulse Ox 02/02/22 14:51 150 H 02/02/22 14:14 36.6 C 150 H 18 107/64 96 02/02/22 13:44 36.6 C 151 H 18 111/55 L 96 02/02/22 13:00 02/02/22 13:00 36.8 C 151 H 18 120/60 96 02/02/22 13:29 36.6 C 150 H 18 96/66 L 97 02/02/22 13:11 36.7 C 153 H 18 120/60 96 02/02/22 12:00 154 H 21 117/81 95 02/02/22 10:24 158 H 21 98 02/02/22 08:39 36.4 C L 160 H 17 112/68 95 02/02/22 08:39 95 02/02/22 08:39 160 H 17 95 02/02/22 08:39 36.4 C L 160 H 17 112/68 95 O2 Del Method O2 Flow Rate 02/02/22 14:51 02/02/22 14:14 2 02/02/22 13:44 02/02/22 13:00 Nasal Cannula 2 02/02/22 13:00 Room Air 02/02/22 13:29 02/02/22 13:11 2 02/02/22 12:00 Nasal Cannula 2 02/02/22 10:24 Nasal Cannula 2 02/02/22 08:39 Nasal Cannula 2 02/02/22 08:39 Nasal Cannula 02/02/22 08:39 Nasal Cannula 2 02/02/22 08:39 Nasal Cannula 2 Laboratory Results Abnormal Lab Results 02/02/22 02/02/22 02/02/22 09:03 10:12 10:12 WBC 0.43 L* RBC 1.77 L Hgb 5.3 L* Hct 16.5 L* MCV 93.2 MCH 29.9 MCHC 32.1 RDW Std Deviation 48.2 H RDW Coeff of Atul 15.4 H Plt Count 70 L MPV 10.3 Immature Gran % (Auto) Cancelled Neut % (Auto) Cancelled Lymph % (Auto) Cancelled [place] % (Auto) Cancelled Eos % (Auto) Cancelled Baso % (Auto) Cancelled Neut # (Auto) Cancelled Lymph # (Auto) Cancelled [place] # (Auto) Cancelled Eos # (Auto) Cancelled Baso # (Auto) Cancelled Immature Gran # (Auto) Cancelled Neutrophils % (Manual) Cancelled Band Neutrophils % Cancelled Lymphocytes % (Manual) Cancelled Prolymphocyte % Cancelled Reactive Lymphs % (Man) Cancelled Monocytes % (Manual) Cancelled Eosinophils % (Manual) Cancelled Basophils % (Manual) Cancelled Metamyelocytes % (Man) Cancelled Myelocytes % (Man) Cancelled Promyelocytes % (Man) Cancelled Blast Cells % (Manual) Cancelled Plasma Cell % (Manual) Cancelled Other Cells % Cancelled Nucleated RBC % Cancelled Neutrophils # (Manual) Cancelled Band Neutrophils # Cancelled Total Absolute Neuts Cancelled Lymphocytes # (Manual) Cancelled Prolymphocyte # Cancelled Reactive Lymphs # Cancelled Total Abs Lymphocytes Cancelled Monocytes # (Manual) Cancelled Eosinophils # (Manual) Cancelled Basophils # (Manual) Cancelled Metamyelocytes # (Man) Cancelled Myelocytes # (Manual) Cancelled Promyelocytes # (Man) Cancelled Blast Cells # (Man) Cancelled Plasma Cell # (Manual) Cancelled Other Cells # Cancelled Nucleated RBCs # (Man) Cancelled Hypersegmented Neuts Cancelled Hyposegmented Neuts Cancelled Hypogranular Neuts Cancelled Large Granular Lymphs Cancelled # Lrg Granular Lymphs Cancelled Hairy Cells Cancelled Smudge Cells Cancelled Toxic Granulation Cancelled Toxic Vacuolation Cancelled Dohle Bodies Cancelled Jose Rods Cancelled Hypogranular Platelets Cancelled Clumped Platelets Cancelled Giant Platelets Cancelled Platelet Satelliting Cancelled RBC Morphology Cancelled Polychromasia Cancelled Hypochromasia Cancelled Poikilocytosis Cancelled Basophilic Stippling Cancelled Anisocytosis Cancelled Microcytosis Cancelled Macrocytosis Cancelled Spherocytes Cancelled Pappenheimer Bodies Cancelled Sickle Cells Cancelled Target Cells Cancelled Tear Drop Cells Cancelled Ovalocytes Cancelled Stomatocytes Cancelled [place] Bodies Cancelled Echinocytes Cancelled Acanthocytes (Spur) Cancelled Rouleaux Cancelled RBC Agglutinates Cancelled Schistocytes Cancelled Sezary Cell Cancelled PT 11.6 INR 1.1 APTT 29.3 PTT Ratio 1.1 Sodium Potassium Chloride Carbon Dioxide Anion Gap BUN Creatinine Est Cr Clr Drug Dosing Est GFR ( Amer) Est GFR (Non-Af Amer) BUN/Creatinine Ratio Glucose Lactate Calcium Magnesium Total Bilirubin AST ALT Alkaline Phosphatase Troponin I High Sens B-Natriuretic Peptide Total Protein Albumin Globulin Albumin/Globulin Ratio Procalcitonin TSH SARS-CoV-2, RNA, NAAT NEGATIVE Blood Parasites ID Cancelled Blood Type Blood Type Recheck Antibody Screen Crossmatch 02/02/22 02/02/22 02/02/22 10:12 10:12 10:12 WBC RBC Hgb Hct MCV MCH MCHC RDW Std Deviation RDW Coeff of Atul Plt Count MPV Immature Gran % (Auto) Neut % (Auto) Lymph % (Auto) [place] % (Auto) Eos % (Auto) Baso % (Auto) Neut # (Auto) Lymph # (Auto) [place] # (Auto) Eos # (Auto) Baso # (Auto) Immature Gran # (Auto) Neutrophils % (Manual) Band Neutrophils % Lymphocytes % (Manual) Prolymphocyte % Reactive Lymphs % (Man) Monocytes % (Manual) Eosinophils % (Manual) Basophils % (Manual) Metamyelocytes % (Man) Myelocytes % (Man) Promyelocytes % (Man) Blast Cells % (Manual) Plasma Cell % (Manual) Other Cells % Nucleated RBC % Neutrophils # (Manual) Band Neutrophils # Total Absolute Neuts Lymphocytes # (Manual) Prolymphocyte # Reactive Lymphs # Total Abs Lymphocytes Monocytes # (Manual) Eosinophils # (Manual) Basophils # (Manual) Metamyelocytes # (Man) Myelocytes # (Manual) Promyelocytes # (Man) Blast Cells # (Man) Plasma Cell # (Manual) Other Cells # Nucleated RBCs # (Man) Hypersegmented Neuts Hyposegmented Neuts Hypogranular Neuts Large Granular Lymphs # Lrg Granular Lymphs Hairy Cells Smudge Cells Toxic Granulation Toxic Vacuolation Dohle Bodies Jose Rods Hypogranular Platelets Clumped Platelets Giant Platelets Platelet Satelliting RBC Morphology Polychromasia Hypochromasia Poikilocytosis Basophilic Stippling Anisocytosis Microcytosis Macrocytosis Spherocytes Pappenheimer Bodies Sickle Cells Target Cells Tear Drop Cells Ovalocytes Stomatocytes [place] Bodies Echinocytes Acanthocytes (Spur) Rouleaux RBC Agglutinates Schistocytes Sezary Cell PT INR APTT PTT Ratio Sodium 137 Potassium 4.0 Chloride 98 Carbon Dioxide 30 Anion Gap 9 BUN 19 Creatinine 0.78 Est Cr Clr Drug Dosing 56.2 Est GFR ( Amer) 84.4 Est GFR (Non-Af Amer) 72.8 BUN/Creatinine Ratio 24.4 H Glucose 125 H Lactate Calcium 8.7 Magnesium 2.0 Total Bilirubin 1.2 H AST 19 ALT 26 Alkaline Phosphatase 82 Troponin I High Sens 19.6 H D B-Natriuretic Peptide 349 H Total Protein 5.6 L Albumin 3.1 L Globulin 2.5 Albumin/Globulin Ratio 1.2 Procalcitonin 0.42 TSH SARS-CoV-2, RNA, NAAT Blood Parasites ID Blood Type Blood Type Recheck Antibody Screen Crossmatch 02/02/22 02/02/22 02/02/22 10:12 10:15 10:58 WBC RBC Hgb Hct MCV MCH MCHC RDW Std Deviation RDW Coeff of Atul Plt Count MPV Immature Gran % (Auto) Neut % (Auto) Lymph % (Auto) [place] % (Auto) Eos % (Auto) Baso % (Auto) Neut # (Auto) Lymph # (Auto) [place] # (Auto) Eos # (Auto) Baso # (Auto) Immature Gran # (Auto) Neutrophils % (Manual) Band Neutrophils % Lymphocytes % (Manual) Prolymphocyte % Reactive Lymphs % (Man) Monocytes % (Manual) Eosinophils % (Manual) Basophils % (Manual) Metamyelocytes % (Man) Myelocytes % (Man) Promyelocytes % (Man) Blast Cells % (Manual) Plasma Cell % (Manual) Other Cells % Nucleated RBC % Neutrophils # (Manual) Band Neutrophils # Total Absolute Neuts Lymphocytes # (Manual) Prolymphocyte # Reactive Lymphs # Total Abs Lymphocytes Monocytes # (Manual) Eosinophils # (Manual) Basophils # (Manual) Metamyelocytes # (Man) Myelocytes # (Manual) Promyelocytes # (Man) Blast Cells # (Man) Plasma Cell # (Manual) Other Cells # Nucleated RBCs # (Man) Hypersegmented Neuts Hyposegmented Neuts Hypogranular Neuts Large Granular Lymphs # Lrg Granular Lymphs Hairy Cells Smudge Cells Toxic Granulation Toxic Vacuolation Dohle Bodies Jose Rods Hypogranular Platelets Clumped Platelets Giant Platelets Platelet Satelliting RBC Morphology Polychromasia Hypochromasia Poikilocytosis Basophilic Stippling Anisocytosis Microcytosis Macrocytosis Spherocytes Pappenheimer Bodies Sickle Cells Target Cells Tear Drop Cells Ovalocytes Stomatocytes [place] Bodies Echinocytes Acanthocytes (Spur) Rouleaux RBC Agglutinates Schistocytes Sezary Cell PT INR APTT PTT Ratio Sodium Potassium Chloride Carbon Dioxide Anion Gap BUN Creatinine Est Cr Clr Drug Dosing Est GFR ( Amer) Est GFR (Non-Af Amer) BUN/Creatinine Ratio Glucose Lactate 1.1 Calcium Magnesium Total Bilirubin AST ALT Alkaline Phosphatase Troponin I High Sens B-Natriuretic Peptide Total Protein Albumin Globulin Albumin/Globulin Ratio Procalcitonin TSH 0.844 SARS-CoV-2, RNA, NAAT Blood Parasites ID Blood Type A Positive Blood Type Recheck Antibody Screen NEGATIVE Crossmatch See Detail 02/02/22 02/02/22 10:58 11:30 WBC RBC Hgb 7.3 L Hct 22.1 L MCV MCH MCHC RDW Std Deviation RDW Coeff of Atul Plt Count MPV Immature Gran % (Auto) Neut % (Auto) Lymph % (Auto) [place] % (Auto) Eos % (Auto) Baso % (Auto) Neut # (Auto) Lymph # (Auto) [place] # (Auto) Eos # (Auto) Baso # (Auto) Immature Gran # (Auto) Neutrophils % (Manual) Band Neutrophils % Lymphocytes % (Manual) Prolymphocyte % Reactive Lymphs % (Man) Monocytes % (Manual) Eosinophils % (Manual) Basophils % (Manual) Metamyelocytes % (Man) Myelocytes % (Man) Promyelocytes % (Man) Blast Cells % (Manual) Plasma Cell % (Manual) Other Cells % Nucleated RBC % Neutrophils # (Manual) Band Neutrophils # Total Absolute Neuts Lymphocytes # (Manual) Prolymphocyte # Reactive Lymphs # Total Abs Lymphocytes Monocytes # (Manual) Eosinophils # (Manual) Basophils # (Manual) Metamyelocytes # (Man) Myelocytes # (Manual) Promyelocytes # (Man) Blast Cells # (Man) Plasma Cell # (Manual) Other Cells # Nucleated RBCs # (Man) Hypersegmented Neuts Hyposegmented Neuts Hypogranular Neuts Large Granular Lymphs # Lrg Granular Lymphs Hairy Cells Smudge Cells Toxic Granulation Toxic Vacuolation Dohle Bodies Jose Rods Hypogranular Platelets Clumped Platelets Giant Platelets Platelet Satelliting RBC Morphology Polychromasia Hypochromasia Poikilocytosis Basophilic Stippling Anisocytosis Microcytosis Macrocytosis Spherocytes Pappenheimer Bodies Sickle Cells Target Cells Tear Drop Cells Ovalocytes Stomatocytes [place] Bodies Echinocytes Acanthocytes (Spur) Rouleaux RBC Agglutinates Schistocytes Sezary Cell PT INR APTT PTT Ratio Sodium Potassium Chloride Carbon Dioxide Anion Gap BUN Creatinine Est Cr Clr Drug Dosing Est GFR ( Amer) Est GFR (Non-Af Amer) BUN/Creatinine Ratio Glucose Lactate Calcium Magnesium Total Bilirubin AST ALT Alkaline Phosphatase Troponin I High Sens B-Natriuretic Peptide Total Protein Albumin Globulin Albumin/Globulin Ratio Procalcitonin TSH SARS-CoV-2, RNA, NAAT Blood Parasites ID Blood Type Blood Type Recheck A Positive Antibody Screen Crossmatch Diagnostic Findings Chest x-ray obtained the time admission revealed no acute cardiopulmonary findings Echocardiogram obtained 12/26/2021: Normal LV systolic function with ejection fraction of 60 65%. Moderate mitral annular calcification. ECG Additional Comments: EKG demonstrated atrial flutter with incomplete right bundle branch block PG Care Time/CCT Total # of Minutes Spent Total Time Spent with Patient: Total time spent is greater than 50% in coordination of care (as documented) at patient's floor/unit and/or counseling patient: Coding Level of Care Code 97969 Initial Inpt Care Lvl 3 Diagnoses Atrial flutter with rapid ventricular response I48.92 Chest pain R07.9 Elevated troponin R77.8
[2022-02-02] MEDS ORDERED: Heparin IV Adult Wt-Based Low-Dose WITH Bolus Protocol IV STA (15:09)
[2022-02-02] MEDS ORDERED: FLECAINIDE ACETATE 100 MG TABLET PO ONE (15:14)
[2022-02-02] MEDS ORDERED: HEPARIN SOD (PORCINE) 1000 UNIT/ML IV ONE ×2 (15:30→23:41)
[2022-02-02] MEDS: HEPARIN SODIUM/DEXTROSE 25,000 UNITS/500 ML BAG IV SCH (16:15)
[2022-02-02] MEDS: FIRST - Mouthwash BLM 119 ML PO SCH ×2 (16:24→20:10)
[2022-02-02] MEDS: SUCRALFATE 1 GM TAB PO SCH ×2 (17:51→20:09)
[2022-02-02] MEDS: CELECOXIB 100 MG CAP PO SCH (20:08)
[2022-02-02] MEDS: NORTRIPTYLINE HCL 25 MG CAP PO SCH (20:08)
[2022-02-02] MEDS: DOCUSATE SODIUM 100 MG CAP PO SCH (20:08)
[2022-02-02] MEDS: FOLIC ACID 1 MG TAB PO SCH (20:09)
[2022-02-02 22:44] LABS: Appearance Urine Cloudy (Clear); Bacteria Urine Automated 2+ (Negative); Bilirubin Urine Negative (Negative); Blood Urine Negative (Negative); Color Urine Orange; Epithelial Cell Urine Auto >30 /lpf (0-5); Glucose Urine UA 3+ (Negative); Ketones Urine 1+ (Negative); Leukocyte Esterase Urine 1+ (Negative); Nitrite Urine Negative (Negative); Protein Urine Negative (Negative); RBC Urine Automated 0-4 /hpf (0-4); Specific Gravity Urine 1.017 (1.000-1.030); Urobilinogen Urine Negative (Negative)
[2022-02-02 22:59] LABS: Partial Thromboplastin Ratio 1.3; Partial Thromboplastin Time 36.8 Seconds (21.0-31.0)
[2022-02-03 06:16] LABS: Partial Thromboplastin Ratio 1.7
[2022-02-03 06:20] LABS: Partial Thromboplastin Time 46.9 Seconds (21.0-31.0)
[2022-02-03] MEDS ORDERED: PHARMACY GLYCEMIC MGMT CONSULT PRN (07:00)
[2022-02-03] MEDS ORDERED: GLUCOSE 40% GEL 15 GM TUBE PO PRN (07:15)
[2022-02-03] MEDS ORDERED: CARBOHYDRATES FOR HYPOGLYCEMIA PO PRN (07:15)
[2022-02-03] MEDS ORDERED: GLUCAGON FOR INJ 1 MG VIAL IM PRN (07:15)
[2022-02-03] MEDS ORDERED: DEXTROSE 50% 50 ML SYRINGE IV PRN (07:15)
[2022-02-03] MEDS ORDERED: GLUCOSE 10 TAB/TUBE PO PRN (07:15)
[2022-02-03 07:31] LABS: BUN Creatinine Ratio 29.9 (10-20); Calcium 8.2 mg/dl (8.5-10.1); Creatinine Clr Calc Pharmacy 57.3 ml/min; Est GFR (African American) 85.7 ml/min; Potassium 4.2 mmol/L (3.5-5.1)
[2022-02-03 07:51] LABS: Hemoglobin 7.6 g/dl (12.0-16.0); Mean Corpuscular Hemoglobin 30.8 pg (25.0-34.0); Mean Corpuscular Hgb Conc 34.5 g/dL (32.0-36.0); Mean Corpuscular Volume 89.1 fL (80.0-100.0); Mean Platelet Volume 10.9 fL (9.4-12.3); Platelet Count 46 K/uL (130-400); RDW Coefficient of Variation 15.2 % (11.5-14.5); RDW Standard Deviation 47.2 fL (36.4-46.3); Red Blood Count 2.47 M/uL (3.93-5.22); White Blood Count 0.44 K/ul (4.8-10.8)
--- NOTE | 2022-02-03 07:59 | Hospitalist Progress Note ---
Date of Service February 03, 2022 Assessment & Plan (1) Atrial flutter with rapid ventricular response: Plan: 76-year-old female past medical history significant for small cell lung cancer, bladder carcinoma, breast cancer, COPD, DM2, polymyalgia rheumatica admitted for weakness and shortness of breath, found to be in a flutter with rapid ventricular response with heart rate in the 150s. Atrial flutter: Yesterday patient noted worsening of her baseline shortness of breath as well as weakness which prompted her evaluation in the ER. She was found to have heart rates in the 150s, EKG confirming atrial flutter with rapid ventricular response. Troponin mildly elevated to 19.6. Cardiology consulted and appreciate recommendations: Recommendation was made for cardioversion however patient refuses at this time. Trial of oral flecainide was unsuccessful, therefore this morning patient received ibutilide. Cardiology also considering addition of diltiazem this afternoon if continued high heart rates. (2) Elevated troponin: Plan: Troponin was 19.6, which is very minimally elevated. No ST or T wave changes on EKG. Echocardiogram showed borderline reduced left ventricular function, moderate MR, moderate mitral annular calcification, mild right ventricular dilation. No evidence of pericardial effusion. Notable for rapid atrial flutter during the study. Demand ischemia secondary to atrial flutter with rapid ventricular response, anemia. (3) Chest pain: Plan: Resolved; more shortness of breath than pain in her chest that she was experiencing on admission after repeat interview this morning. (4) Antineoplastic chemotherapy induced pancytopenia: Plan: History of right-sided breast cancer stage IIA, ER+ / HER2 -, diagnosed in 2009. History of nonmuscle invasive bladder carcinoma diagnosed in August 2012, treated with BCG. Diagnosed with small cell lung cancer stage IIIb (lymphatic metastasis) in October 2021. Most recently had back pain and was found to have compression fractures at T11, T12, and L1. Has been going under chemoradiation with carboplatin/etoposide. On admission found to have pancytopenia (WBC count 0.44, hemoglobin 7.6, platelets 46 today). No indication for transfusion at this time, however will transfuse PRBCs if hemoglobin drops less than 7.6. Will continue to monitor platelets as patient is on heparin drip for unstable A. fib/A. Flutter this admission. Can reverse with protamine if necessary if signs of bleeding. Daily CBC. (5) Small cell lung cancer: Plan: see above (6) Compression fracture: Plan: See above (7) UTI (urinary tract infection): Plan: Complains of dysuria today. Urine culture growing greater than 100,000 colony-forming units of gram-positive cocci. Will start ampicillin to cover for Enterococcus. (8) Chronic obstructive pulmonary disease: Plan: Patient with a history of COPD and 50 to 60 pack years of smoking. Continue Breo Ellipta and Incruse Ellipta, prednisone. Albuterol as needed. (9) Chronic respiratory failure with hypoxia: Plan: Secondary to COPD and small cell lung cancer. Continue 2 L nasal cannula with titrate of oxygen as needed. No evidence of pneumonia on chest x-ray. Incentive spirometer. (10) Diabetes mellitus, type 2: Plan: A1c 6.8% in November 2021. Continue NPH 10 units daily with sliding scale insulin. (11) Polymyalgia rheumatica: Plan: Continue home prednisone dose. Plan CODE STATUS: DNR/DNI FEN: Heart healthy DVT prophylaxis: Heparin drip Disposition: Telemetry Admission and Anticipated Discharge Date Admission Date: February 02, 2022 Subjective Overnight patient continued to have heart rate 120s to 150s. Patient does not report feeling a fast heart rate, chest pain, worsening trouble breathing at this time. In fact, she feels that her breathing is somewhat better today as compared to yesterday. Overall feels very weak. She is complaining of some dysuria this morning. I asked her about her dusky toes this morning, which she reports has been going on for several months. She also reports that her feet have been cold. She denies any foot pain with walking, or with hanging her feet over the bed/chair. Review of Systems Constitutional: no fever and no chills Respiratory: + dyspnea on exertion (Chronic); no cough Cardiovascular: no chest pain and no palpitations Gastrointestinal: no abdominal pain, no nausea and no vomiting Physical Exam Constitutional: WD/WN, vitals as above Respiratory: normal respiratory effort, lungs clear to auscultation Saturating 93% on 2LNC Cardiovascular: Heart rate regular and tachycardic, no murmurs DP and PT pulses palpable on bilateral lower extremities Moderate left greater than right lower extremity pitting edema Gastrointestinal (Abdomen): normal bowel sounds, soft, nontender, no hepatosplenomegaly Skin: no rashes, warm and dry Left second and right third toes dusky at the tips, nonpainful Psychiatric: A+Ox3, euthymic affect Results & Data Results & Data ([facility]) Vital Signs (Past 12 Hours) Vital Signs Temp Pulse Resp BP Pulse Ox O2 Del Method O2 Flow Rate 02/03/22 07:25 36.5 C 125 H 18 127/83 94 Nasal Cannula 02/03/22 03:09 36.4 C L 120 H 18 108/71 95 02/02/22 23:25 36.5 C 118 H 16 100/60 96 Nasal Cannula 2 PG Care Time/CCT Total # of Minutes Spent Total Time Spent with Patient: Total time spent is greater than 50% in coordination of care (as documented) at patient's floor/unit and/or counseling patient: Coding Level of Care Code 43283 Subseq Hosp Care Lvl 3 Diagnoses Atrial flutter with rapid ventricular response I48.92 Elevated troponin R77.8 Chest pain R07.9 Antineoplastic chemotherapy induced pancytopenia D61.810; T45.1X5A Small cell lung cancer C34.90 Compression fracture UTI (urinary tract infection) N39.0 Chronic obstructive pulmonary disease J44.9 Chronic respiratory failure with hypoxia J96.11 Diabetes mellitus, type 2 E11.9 Polymyalgia rheumatica M35.3
[2022-02-03] MEDS ORDERED: INSULIN HUMAN NPH SC ONE (09:00)
[2022-02-03] MEDS: predniSONE 10 MG TABLET PO SCH (09:16)
[2022-02-03] MEDS: FIRST - Mouthwash BLM 119 ML PO SCH ×4 (09:16→22:31)
[2022-02-03] MEDS: FUROSEMIDE 40 MG TAB PO SCH (09:17)
[2022-02-03] MEDS: CYANOCOBALAMIN (B-12) 500 MCG TABLET PO SCH (09:17)
[2022-02-03] MEDS: DOCUSATE SODIUM 100 MG CAP PO SCH ×2 (09:17→20:04)
[2022-02-03] MEDS: CHOLECALCIFEROL 1,000 UNITS 25 MCG TAB PO SCH (09:18)
[2022-02-03] MEDS: FLUTICASONE/VILANTEROL 100/25MCG 14 PUFFS/INHALER INH SCH (09:19)
[2022-02-03] MEDS: UMECLIDINIUM BROMIDE 62.5MCG/BLISTER 7 PUFFS/INHALER INH SCH (09:20)
[2022-02-03] MEDS: SUCRALFATE 1 GM TAB PO SCH ×4 (09:20→20:03)
[2022-02-03] MEDS ORDERED: HEPARIN SODIUM/DEXTROSE 25,000 UNITS/500 ML BAG IV SCH (10:00)
[2022-02-03] MEDS ORDERED: Heparin IV Adult Wt-Based Standard *NO* Bolus Protocol IV SCH (10:00)
[2022-02-03] MEDS ORDERED: IBUTILIDE FUMARATE 0.1 MG/ML 10 ML VIAL IV ONE (10:15)
[2022-02-03] MEDS ORDERED: MAGNESIUM SULFATE / D5W 1 GM/100 ML BAG IV ONE (10:15)
[2022-02-03] MEDS: INSULIN ASPART PER UNIT SC SCH ×4 (10:26→22:33)
--- NOTE | 2022-02-03 10:30 | Cardiology Progress Note ---
Date of Service February 03, 2022 Assessment & Plan (1) Atrial flutter with rapid ventricular response: (2) Chest pain: (3) Elevated troponin: Plan 1. Atrial flutter: She received flecainide yesterday. The overall heart rate slowed, but she still appears to be in atrial flutter. We discussed options for cardioversion. I favored electrical cardioversion today as this is more reliable. However, she seems to have some version either to the anesthetic or the procedure itself. She wanted to try more medication. I explained to her the logistical difficulties cardioversion in the next 2 days and that we may miss an opportunity. However, she would not consent to get the electrical cardioversion to day. As an alternative I think we will try ibutilide 1 or 2 doses. She has continued on unfractionated heparin. While her platelets are somewhat lower today, there is no signs of active bleeding. If there is any evidence of active bleeding the heparin can easily be reversed with protamine. 2. Elevated troponin: Likely demand ischemia in the setting of tachycardia, anemia and likely element of hypoxia. 3. Chest pain: This appears resolved today 4. Dyspnea: Multifactorial. Her lung examination is suggestive of pulmonary vascular congestion. We will see what her output looks like today. We may need to increase her dose of Lasix or switch to an intravenous formulation. Admission and Anticipated Discharge Date Admission Date: February 02, 2022 Subjective This morning patient claimed to be feeling slightly better. She reports her juan athing improved. However, still very weak. No dizziness. No sense of palpitation. No chest pain. Review of Systems Review of Systems: Per HPI Physical Exam Physical Exam: She is alert and oriented x3. Mood affect appear normal. She answered all questions appropriately. HEENT: Sclerae are anicteric. Pupils are equal and reactive to light and accommodation. Extraocular movements were intact. Alopecia noted Neuro: Cranial nerves intact Lungs: Normal respiratory effort. Crackles at the bases of both lung hernandez. Prolonged expiratory phase without expiratory Cardiac: The rhythm was regular but fast. S1 and S2 were normal. There are no murmurs on examination. The PMI was not markedly displaced on palpation. Extremities: Patient has bilateral radial pulses that are equal in intensity. There is no evidence cyanosis or clubbing. Moderate lower extremity pitting edema bilaterally. Skin: There are no rashes noted on examination today. Results & Data ([facility]) Vital Signs (Past 12 Hours) Vital Signs Temp Pulse Resp BP Pulse Ox O2 Del Method O2 Flow Rate 02/03/22 07:25 36.5 C 125 H 18 127/83 94 Nasal Cannula 02/03/22 03:09 36.4 C L 120 H 18 108/71 95 02/02/22 23:25 36.5 C 118 H 16 100/60 96 Nasal Cannula 2 Laboratory Results Abnormal Lab Results 02/02/22 02/02/22 02/02/22 10:12 10:12 10:12 WBC 0.43 L* RBC 1.77 L Hgb 5.3 L* Hct 16.5 L* MCV 93.2 MCH 29.9 MCHC 32.1 RDW Std Deviation 48.2 H RDW Coeff of Atul 15.4 H Plt Count 70 L MPV 10.3 Immature Gran % (Auto) Cancelled Neut % (Auto) Cancelled Lymph % (Auto) Cancelled [place] % (Auto) Cancelled Eos % (Auto) Cancelled Baso % (Auto) Cancelled Neut # (Auto) Cancelled Lymph # (Auto) Cancelled [place] # (Auto) Cancelled Eos # (Auto) Cancelled Baso # (Auto) Cancelled Immature Gran # (Auto) Cancelled Neutrophils % (Manual) Cancelled Band Neutrophils % Cancelled Lymphocytes % (Manual) Cancelled Prolymphocyte % Cancelled Reactive Lymphs % (Man) Cancelled Monocytes % (Manual) Cancelled Eosinophils % (Manual) Cancelled Basophils % (Manual) Cancelled Metamyelocytes % (Man) Cancelled Myelocytes % (Man) Cancelled Promyelocytes % (Man) Cancelled Blast Cells % (Manual) Cancelled Plasma Cell % (Manual) Cancelled Other Cells % Cancelled Nucleated RBC % Cancelled Neutrophils # (Manual) Cancelled Band Neutrophils # Cancelled Total Absolute Neuts Cancelled Lymphocytes # (Manual) Cancelled Prolymphocyte # Cancelled Reactive Lymphs # Cancelled Total Abs Lymphocytes Cancelled Monocytes # (Manual) Cancelled Eosinophils # (Manual) Cancelled Basophils # (Manual) Cancelled Metamyelocytes # (Man) Cancelled Myelocytes # (Manual) Cancelled Promyelocytes # (Man) Cancelled Blast Cells # (Man) Cancelled Plasma Cell # (Manual) Cancelled Other Cells # Cancelled Nucleated RBCs # (Man) Cancelled Hypersegmented Neuts Cancelled Hyposegmented Neuts Cancelled Hypogranular Neuts Cancelled Large Granular Lymphs Cancelled # Lrg Granular Lymphs Cancelled Hairy Cells Cancelled Smudge Cells Cancelled Toxic Granulation Cancelled Toxic Vacuolation Cancelled Dohle Bodies Cancelled Jose Rods Cancelled Hypogranular Platelets Cancelled Clumped Platelets Cancelled Giant Platelets Cancelled Platelet Satelliting Cancelled RBC Morphology Cancelled Polychromasia Cancelled Hypochromasia Cancelled Poikilocytosis Cancelled Basophilic Stippling Cancelled Anisocytosis Cancelled Microcytosis Cancelled Macrocytosis Cancelled Spherocytes Cancelled Pappenheimer Bodies Cancelled Sickle Cells Cancelled Target Cells Cancelled Tear Drop Cells Cancelled Ovalocytes Cancelled Stomatocytes Cancelled [place] Bodies Cancelled Echinocytes Cancelled Acanthocytes (Spur) Cancelled Rouleaux Cancelled RBC Agglutinates Cancelled Schistocytes Cancelled Sezary Cell Cancelled PT 11.6 INR 1.1 APTT 29.3 PTT Ratio 1.1 Sodium 137 Potassium 4.0 Chloride 98 Carbon Dioxide 30 Anion Gap 9 BUN 19 Creatinine 0.78 Est Cr Clr Drug Dosing 56.2 Est GFR ( Amer) 84.4 Est GFR (Non-Af Amer) 72.8 BUN/Creatinine Ratio 24.4 H Glucose 125 H POC Glucose Lactate Calcium 8.7 Magnesium 2.0 Total Bilirubin 1.2 H AST 19 ALT 26 Alkaline Phosphatase 82 Troponin I High Sens 19.6 H D B-Natriuretic Peptide Total Protein 5.6 L Albumin 3.1 L Globulin 2.5 Albumin/Globulin Ratio 1.2 Procalcitonin TSH Urine Color Urine Appearance Urine pH Ur Specific [place] Urine Protein Urine Glucose (UA) Urine Ketones Urine Blood Urine Nitrite Urine Bilirubin Urine Urobilinogen Ur Leukocyte Esterase Urine WBC (Auto) Urine RBC (Auto) U Hyaline Cast (Auto) U Epithel Cells (Auto) Urine Bacteria (Auto) Blood Parasites ID Cancelled Blood Type Blood Type Recheck Antibody Screen Crossmatch 02/02/22 02/02/22 02/02/22 10:12 10:12 10:12 WBC RBC Hgb Hct MCV MCH MCHC RDW Std Deviation RDW Coeff of Atul Plt Count MPV Immature Gran % (Auto) Neut % (Auto) Lymph % (Auto) [place] % (Auto) Eos % (Auto) Baso % (Auto) Neut # (Auto) Lymph # (Auto) [place] # (Auto) Eos # (Auto) Baso # (Auto) Immature Gran # (Auto) Neutrophils % (Manual) Band Neutrophils % Lymphocytes % (Manual) Prolymphocyte % Reactive Lymphs % (Man) Monocytes % (Manual) Eosinophils % (Manual) Basophils % (Manual) Metamyelocytes % (Man) Myelocytes % (Man) Promyelocytes % (Man) Blast Cells % (Manual) Plasma Cell % (Manual) Other Cells % Nucleated RBC % Neutrophils # (Manual) Band Neutrophils # Total Absolute Neuts Lymphocytes # (Manual) Prolymphocyte # Reactive Lymphs # Total Abs Lymphocytes Monocytes # (Manual) Eosinophils # (Manual) Basophils # (Manual) Metamyelocytes # (Man) Myelocytes # (Manual) Promyelocytes # (Man) Blast Cells # (Man) Plasma Cell # (Manual) Other Cells # Nucleated RBCs # (Man) Hypersegmented Neuts Hyposegmented Neuts Hypogranular Neuts Large Granular Lymphs # Lrg Granular Lymphs Hairy Cells Smudge Cells Toxic Granulation Toxic Vacuolation Dohle Bodies Jose Rods Hypogranular Platelets Clumped Platelets Giant Platelets Platelet Satelliting RBC Morphology Polychromasia Hypochromasia Poikilocytosis Basophilic Stippling Anisocytosis Microcytosis Macrocytosis Spherocytes Pappenheimer Bodies Sickle Cells Target Cells Tear Drop Cells Ovalocytes Stomatocytes [place] Bodies Echinocytes Acanthocytes (Spur) Rouleaux RBC Agglutinates Schistocytes Sezary Cell PT INR APTT PTT Ratio Sodium Potassium Chloride Carbon Dioxide Anion Gap BUN Creatinine Est Cr Clr Drug Dosing Est GFR ( Amer) Est GFR (Non-Af Amer) BUN/Creatinine Ratio Glucose POC Glucose Lactate Calcium Magnesium Total Bilirubin AST ALT Alkaline Phosphatase Troponin I High Sens B-Natriuretic Peptide 349 H Total Protein Albumin Globulin Albumin/Globulin Ratio Procalcitonin 0.42 TSH 0.844 Urine Color Urine Appearance Urine pH Ur Specific [place] Urine Protein Urine Glucose (UA) Urine Ketones Urine Blood Urine Nitrite Urine Bilirubin Urine Urobilinogen Ur Leukocyte Esterase Urine WBC (Auto) Urine RBC (Auto) U Hyaline Cast (Auto) U Epithel Cells (Auto) Urine Bacteria (Auto) Blood Parasites ID Blood Type Blood Type Recheck Antibody Screen Crossmatch 02/02/22 02/02/22 02/02/22 10:15 10:58 10:58 WBC RBC Hgb 7.3 L Hct 22.1 L MCV MCH MCHC RDW Std Deviation RDW Coeff of Atul Plt Count MPV Immature Gran % (Auto) Neut % (Auto) Lymph % (Auto) [place] % (Auto) Eos % (Auto) Baso % (Auto) Neut # (Auto) Lymph # (Auto) [place] # (Auto) Eos # (Auto) Baso # (Auto) Immature Gran # (Auto) Neutrophils % (Manual) Band Neutrophils % Lymphocytes % (Manual) Prolymphocyte % Reactive Lymphs % (Man) Monocytes % (Manual) Eosinophils % (Manual) Basophils % (Manual) Metamyelocytes % (Man) Myelocytes % (Man) Promyelocytes % (Man) Blast Cells % (Manual) Plasma Cell % (Manual) Other Cells % Nucleated RBC % Neutrophils # (Manual) Band Neutrophils # Total Absolute Neuts Lymphocytes # (Manual) Prolymphocyte # Reactive Lymphs # Total Abs Lymphocytes Monocytes # (Manual) Eosinophils # (Manual) Basophils # (Manual) Metamyelocytes # (Man) Myelocytes # (Manual) Promyelocytes # (Man) Blast Cells # (Man) Plasma Cell # (Manual) Other Cells # Nucleated RBCs # (Man) Hypersegmented Neuts Hyposegmented Neuts Hypogranular Neuts Large Granular Lymphs # Lrg Granular Lymphs Hairy Cells Smudge Cells Toxic Granulation Toxic Vacuolation Dohle Bodies Jose Rods Hypogranular Platelets Clumped Platelets Giant Platelets Platelet Satelliting RBC Morphology Polychromasia Hypochromasia Poikilocytosis Basophilic Stippling Anisocytosis Microcytosis Macrocytosis Spherocytes Pappenheimer Bodies Sickle Cells Target Cells Tear Drop Cells Ovalocytes Stomatocytes [place] Bodies Echinocytes Acanthocytes (Spur) Rouleaux RBC Agglutinates Schistocytes Sezary Cell PT INR APTT PTT Ratio Sodium Potassium Chloride Carbon Dioxide Anion Gap BUN Creatinine Est Cr Clr Drug Dosing Est GFR ( Amer) Est GFR (Non-Af Amer) BUN/Creatinine Ratio Glucose POC Glucose Lactate 1.1 Calcium Magnesium Total Bilirubin AST ALT Alkaline Phosphatase Troponin I High Sens B-Natriuretic Peptide Total Protein Albumin Globulin Albumin/Globulin Ratio Procalcitonin TSH Urine Color Urine Appearance Urine pH Ur Specific [place] Urine Protein Urine Glucose (UA) Urine Ketones Urine Blood Urine Nitrite Urine Bilirubin Urine Urobilinogen Ur Leukocyte Esterase Urine WBC (Auto) Urine RBC (Auto) U Hyaline Cast (Auto) U Epithel Cells (Auto) Urine Bacteria (Auto) Blood Parasites ID Blood Type A Positive Blood Type Recheck Antibody Screen NEGATIVE Crossmatch See Detail 02/02/22 02/02/22 02/02/22 11:30 21:10 22:30 WBC RBC Hgb Hct MCV MCH MCHC RDW Std Deviation RDW Coeff of Atul Plt Count MPV Immature Gran % (Auto) Neut % (Auto) Lymph % (Auto) [place] % (Auto) Eos % (Auto) Baso % (Auto) Neut # (Auto) Lymph # (Auto) [place] # (Auto) Eos # (Auto) Baso # (Auto) Immature Gran # (Auto) Neutrophils % (Manual) Band Neutrophils % Lymphocytes % (Manual) Prolymphocyte % Reactive Lymphs % (Man) Monocytes % (Manual) Eosinophils % (Manual) Basophils % (Manual) Metamyelocytes % (Man) Myelocytes % (Man) Promyelocytes % (Man) Blast Cells % (Manual) Plasma Cell % (Manual) Other Cells % Nucleated RBC % Neutrophils # (Manual) Band Neutrophils # Total Absolute Neuts Lymphocytes # (Manual) Prolymphocyte # Reactive Lymphs # Total Abs Lymphocytes Monocytes # (Manual) Eosinophils # (Manual) Basophils # (Manual) Metamyelocytes # (Man) Myelocytes # (Manual) Promyelocytes # (Man) Blast Cells # (Man) Plasma Cell # (Manual) Other Cells # Nucleated RBCs # (Man) Hypersegmented Neuts Hyposegmented Neuts Hypogranular Neuts Large Granular Lymphs # Lrg Granular Lymphs Hairy Cells Smudge Cells Toxic Granulation Toxic Vacuolation Dohle Bodies Jose Rods Hypogranular Platelets Clumped Platelets Giant Platelets Platelet Satelliting RBC Morphology Polychromasia Hypochromasia Poikilocytosis Basophilic Stippling Anisocytosis Microcytosis Macrocytosis Spherocytes Pappenheimer Bodies Sickle Cells Target Cells Tear Drop Cells Ovalocytes Stomatocytes [place] Bodies Echinocytes Acanthocytes (Spur) Rouleaux RBC Agglutinates Schistocytes Sezary Cell PT INR APTT 36.8 H PTT Ratio 1.3 Sodium Potassium Chloride Carbon Dioxide Anion Gap BUN Creatinine Est Cr Clr Drug Dosing Est GFR ( Amer) Est GFR (Non-Af Amer) BUN/Creatinine Ratio Glucose POC Glucose Lactate Calcium Magnesium Total Bilirubin AST ALT Alkaline Phosphatase Troponin I High Sens B-Natriuretic Peptide Total Protein Albumin Globulin Albumin/Globulin Ratio Procalcitonin TSH Urine Color [place] Urine Appearance Cloudy A Urine pH 5.0 Ur Specific [place] 1.017 Urine Protein Negative Urine Glucose (UA) 3+ H Urine Ketones 1+ H Urine Blood Negative Urine Nitrite Negative Urine Bilirubin Negative Urine Urobilinogen Negative Ur Leukocyte Esterase 1+ H Urine WBC (Auto) 10-30 H Urine RBC (Auto) 0-4 U Hyaline Cast (Auto) 1-5 U Epithel Cells (Auto) >30 H Urine Bacteria (Auto) 2+ H Blood Parasites ID Blood Type Blood Type Recheck A Positive Antibody Screen Crossmatch 02/03/22 02/03/22 02/03/22 05:17 05:18 05:18 WBC 0.44 L* RBC 2.47 L Hgb 7.6 L Hct 22.0 L MCV 89.1 MCH 30.8 MCHC 34.5 RDW Std Deviation 47.2 H RDW Coeff of Atul 15.2 H Plt Count 46 L MPV 10.9 Immature Gran % (Auto) Neut % (Auto) Lymph % (Auto) [place] % (Auto) Eos % (Auto) Baso % (Auto) Neut # (Auto) Lymph # (Auto) [place] # (Auto) Eos # (Auto) Baso # (Auto) Immature Gran # (Auto) Neutrophils % (Manual) Band Neutrophils % Lymphocytes % (Manual) Prolymphocyte % Reactive Lymphs % (Man) Monocytes % (Manual) Eosinophils % (Manual) Basophils % (Manual) Metamyelocytes % (Man) Myelocytes % (Man) Promyelocytes % (Man) Blast Cells % (Manual) Plasma Cell % (Manual) Other Cells % Nucleated RBC % Neutrophils # (Manual) Band Neutrophils # Total Absolute Neuts Lymphocytes # (Manual) Prolymphocyte # Reactive Lymphs # Total Abs Lymphocytes Monocytes # (Manual) Eosinophils # (Manual) Basophils # (Manual) Metamyelocytes # (Man) Myelocytes # (Manual) Promyelocytes # (Man) Blast Cells # (Man) Plasma Cell # (Manual) Other Cells # Nucleated RBCs # (Man) Hypersegmented Neuts Hyposegmented Neuts Hypogranular Neuts Large Granular Lymphs # Lrg Granular Lymphs Hairy Cells Smudge Cells Toxic Granulation Toxic Vacuolation Dohle Bodies Jose Rods Hypogranular Platelets Clumped Platelets Giant Platelets Platelet Satelliting RBC Morphology Polychromasia Hypochromasia Poikilocytosis Basophilic Stippling Anisocytosis Microcytosis Macrocytosis Spherocytes Pappenheimer Bodies Sickle Cells Target Cells Tear Drop Cells Ovalocytes Stomatocytes [place] Bodies Echinocytes Acanthocytes (Spur) Rouleaux RBC Agglutinates Schistocytes Sezary Cell PT INR APTT 46.9 H* PTT Ratio 1.7 Sodium 133 L Potassium 4.2 Chloride 97 L Carbon Dioxide 30 Anion Gap 6 BUN 23 Creatinine 0.77 Est Cr Clr Drug Dosing 57.3 Est GFR ( Amer) 85.7 Est GFR (Non-Af Amer) 74.0 BUN/Creatinine Ratio 29.9 H Glucose 215 H POC Glucose Lactate Calcium 8.2 L Magnesium Total Bilirubin AST ALT Alkaline Phosphatase Troponin I High Sens B-Natriuretic Peptide Total Protein Albumin Globulin Albumin/Globulin Ratio Procalcitonin TSH Urine Color Urine Appearance Urine pH Ur Specific [place] Urine Protein Urine Glucose (UA) Urine Ketones Urine Blood Urine Nitrite Urine Bilirubin Urine Urobilinogen Ur Leukocyte Esterase Urine WBC (Auto) Urine RBC (Auto) U Hyaline Cast (Auto) U Epithel Cells (Auto) Urine Bacteria (Auto) Blood Parasites ID Blood Type Blood Type Recheck Antibody Screen Crossmatch 02/03/22 07:49 WBC RBC Hgb Hct MCV MCH MCHC RDW Std Deviation RDW Coeff of Atul Plt Count MPV Immature Gran % (Auto) Neut % (Auto) Lymph % (Auto) [place] % (Auto) Eos % (Auto) Baso % (Auto) Neut # (Auto) Lymph # (Auto) [place] # (Auto) Eos # (Auto) Baso # (Auto) Immature Gran # (Auto) Neutrophils % (Manual) Band Neutrophils % Lymphocytes % (Manual) Prolymphocyte % Reactive Lymphs % (Man) Monocytes % (Manual) Eosinophils % (Manual) Basophils % (Manual) Metamyelocytes % (Man) Myelocytes % (Man) Promyelocytes % (Man) Blast Cells % (Manual) Plasma Cell % (Manual) Other Cells % Nucleated RBC % Neutrophils # (Manual) Band Neutrophils # Total Absolute Neuts Lymphocytes # (Manual) Prolymphocyte # Reactive Lymphs # Total Abs Lymphocytes Monocytes # (Manual) Eosinophils # (Manual) Basophils # (Manual) Metamyelocytes # (Man) Myelocytes # (Manual) Promyelocytes # (Man) Blast Cells # (Man) Plasma Cell # (Manual) Other Cells # Nucleated RBCs # (Man) Hypersegmented Neuts Hyposegmented Neuts Hypogranular Neuts Large Granular Lymphs # Lrg Granular Lymphs Hairy Cells Smudge Cells Toxic Granulation Toxic Vacuolation Dohle Bodies Jose Rods Hypogranular Platelets Clumped Platelets Giant Platelets Platelet Satelliting RBC Morphology Polychromasia Hypochromasia Poikilocytosis Basophilic Stippling Anisocytosis Microcytosis Macrocytosis Spherocytes Pappenheimer Bodies Sickle Cells Target Cells Tear Drop Cells Ovalocytes Stomatocytes [place] Bodies Echinocytes Acanthocytes (Spur) Rouleaux RBC Agglutinates Schistocytes Sezary Cell PT INR APTT PTT Ratio Sodium Potassium Chloride Carbon Dioxide Anion Gap BUN Creatinine Est Cr Clr Drug Dosing Est GFR ( Amer) Est GFR (Non-Af Amer) BUN/Creatinine Ratio Glucose POC Glucose 175 H Lactate Calcium Magnesium Total Bilirubin AST ALT Alkaline Phosphatase Troponin I High Sens B-Natriuretic Peptide Total Protein Albumin Globulin Albumin/Globulin Ratio Procalcitonin TSH Urine Color Urine Appearance Urine pH Ur Specific [place] Urine Protein Urine Glucose (UA) Urine Ketones Urine Blood Urine Nitrite Urine Bilirubin Urine Urobilinogen Ur Leukocyte Esterase Urine WBC (Auto) Urine RBC (Auto) U Hyaline Cast (Auto) U Epithel Cells (Auto) Urine Bacteria (Auto) Blood Parasites ID Blood Type Blood Type Recheck Antibody Screen Crossmatch PG Care Time/CCT Total # of Minutes Spent Total Time Spent with Patient: Total time spent is greater than 50% in coordination of care (as documented) at patient's floor/unit and/or counseling patient: Coding Level of Care Code 86688 Subseq Hosp Care Lvl 2 Diagnoses Atrial flutter with rapid ventricular response I48.92 Chest pain R07.9 Elevated troponin R77.8
[2022-02-03] MEDS ORDERED: Nursing to Pharmacy Communication SCH (11:00)
--- NOTE | 2022-02-03 11:03 | XCELERA ---
[id number]
--- NOTE | 2022-02-03 11:59 | Pharmacy Report ---
Pharmacy Glycemic Short Note 2 - Date of Service February 03, 2022 - Glycemic Short BSG Results (Last 24 hours): 02/03/22 02/03/22 02/03/22 05:18 07:49 11:30 Glucose 215 H POC Glucose 175 H 168 H OUTPATIENT ANTIDIABETIC REGIMEN: * Metformin 850 mg PO BID * HbA1C = 6.8% (12/26/21) ASSESSMENT: * Ms Ward is a 76 y/o F with a PMH of T2DM on oral medications. * She received Solu-Medrol 125 mg IV x 1 in the ER yesterday AM. Patient received no insulin that day. * Patient started on prednisone 10 mg daily (Home dose). * Fasting this AM was 175 mg/dL. * Will start NPH 20 units (0.25 units/kg). This is for prednisone effects + slightly extra for steroids yesterday. Decrease to 10 units daily on 02/04 * Novolog weight-based stress of 3. PLAN FOR INPATIENT GLYCEMIC CONTROL: * Basal insulin * NPH 20 units SQ x 1 then 10 units SQ daily * Bolus insulin * NovoLog per scale ACHS or Q6hrs while NPO * Goal Range: Low 110 mg/dL - High 140 mg/dL * Correction Factor: 20 mg/dL/unit * Nutritional / Prandial insulin per carb ratio of 1 unit per 7 grams CHO consumed
--- NOTE | 2022-02-03 13:55 | Electrocardiogram Report ---
Test Reason : Blood Pressure : / mmHG Vent. Rate : 129 BPM Atrial Rate : 129 BPM P-R Int : 122 ms QRS Dur : 160 ms QT Int : 406 ms P-R-T Axes : 117 -51 011 degrees QTc Int : 594 ms Atrial flutter Right bundle branch block Left anterior fascicular block Bifascicular block Minimal voltage criteria for LVH, may be normal variant T wave abnormality, consider inferior ischemia Abnormal ECG When compared with ECG of 02-FEB-2022 08:27, QRS duration has increased T wave inversion now evident in Inferior leads Nonspecific T wave abnormality, worse in Lateral leads Confirmed by Lion Dupree ([id number] on 02/03/2022 1:54:49 PM Referred By: REFERRED SELF Confirmed By:Dontrell Dupree
--- NOTE | 2022-02-03 13:56 | Electrocardiogram Report ---
Test Reason : Blood Pressure : / mmHG Vent. Rate : 121 BPM Atrial Rate : 078 BPM P-R Int : 000 ms QRS Dur : 144 ms QT Int : 380 ms P-R-T Axes : 000 -55 079 degrees QTc Int : 539 ms Poor data quality, interpretation may be adversely affected Atrial flutter versus fibrillation Right bundle branch block Left anterior fascicular block Bifascicular block Abnormal ECG When compared with ECG of 03-FEB-2022 11:44, (unconfirmed) Wide QRS tachycardia has replaced Atrial fibrillation Confirmed by Lion Dupree ([id number]) on 02/03/2022 1:56:35 PM Referred By: REFERRED SELF Confirmed By:Dontrell Dupree
--- NOTE | 2022-02-03 13:56 | Electrocardiogram Report ---
Test Reason : Blood Pressure : / mmHG Vent. Rate : 127 BPM Atrial Rate : 119 BPM P-R Int : 000 ms QRS Dur : 146 ms QT Int : 370 ms P-R-T Axes : 000 -54 030 degrees QTc Int : 537 ms Atrial fibrillation with rapid ventricular response Right bundle branch block Left anterior fascicular block Bifascicular block Abnormal ECG When compared with ECG of 03-FEB-2022 11:25, (unconfirmed) Atrial fibrillation has replaced atrial flutter T wave inversion no longer evident in Inferior leads Nonspecific T wave abnormality, improved in Lateral leads Confirmed by Lion Dupree ([id number] on 02/03/2022 1:56:10 PM Referred By: REFERRED SELF Confirmed By:Dontrell Dupree
[2022-02-03] MEDS: POLYETHYLENE (MIRALAX) 17 GM PACK PO SCH (14:13)
[2022-02-03] MEDS ORDERED: cefTRIAXone SODIUM 2,000 MG in DEXTROSE 5% 50 ML IV SCH (14:15)
[2022-02-03] MEDS ORDERED: AMPICILLIN/SULBACTAM SOD 1,500 MG in 0.9 % SODIUM CHLORIDE 100 ML IV SCH (14:15)
--- NOTE | 2022-02-03 14:27 | Ultrasound Report ---
US ankle/brachial index ltd CLINICAL HISTORY: bilateral dusky toes COMPARISON STUDY: No previous studies for comparison. TECHNIQUE: Bilateral ankle to brachial indices were obtained. FINDINGS: The right ankle-brachial index measured 1.01 when using the dorsalis pedis and 1.05 when us ing the posterior tibial artery. The left ankle to brachial index measured 1.11 when using dorsalis p casey and 1.22 when using the posterior tibial artery. IMPRESSION: Normal bilateral ankle to brachial indices. ACT 112: Negative or not required by law. Electronically signed by: Sanchez Begum M.D. 02/03/2022 2:26 PM
[2022-02-03] MEDS: AMPICILLIN 1,000 MG in SODIUM CHLOR 0.9% AD-VAN 50 ML IV SCH ×2 (16:21→20:04)
[2022-02-03] MEDS: NORTRIPTYLINE HCL 25 MG CAP PO SCH (20:03)
[2022-02-03] MEDS: FOLIC ACID 1 MG TAB PO SCH (20:03)
[2022-02-03] MEDS: CELECOXIB 100 MG CAP PO SCH (20:04)
[2022-02-04] MEDS: AMPICILLIN 1,000 MG in SODIUM CHLOR 0.9% AD-VAN 50 ML IV SCH ×3 (02:00→16:02)
[2022-02-04] MEDS: CYANOCOBALAMIN (B-12) 500 MCG TABLET PO SCH (08:10)
[2022-02-04] MEDS: FUROSEMIDE 40 MG TAB PO SCH (08:10)
[2022-02-04] MEDS: FLUTICASONE/VILANTEROL 100/25MCG 14 PUFFS/INHALER INH SCH (08:11)
[2022-02-04] MEDS: UMECLIDINIUM BROMIDE 62.5MCG/BLISTER 7 PUFFS/INHALER INH SCH (08:11)
[2022-02-04] MEDS: INSULIN ASPART PER UNIT SC SCH ×4 (08:12→21:55)
[2022-02-04] MEDS: CHOLECALCIFEROL 1,000 UNITS 25 MCG TAB PO SCH (08:12)
[2022-02-04] MEDS: predniSONE 10 MG TABLET PO SCH (08:12)
[2022-02-04] MEDS: POLYETHYLENE (MIRALAX) 17 GM PACK PO SCH (08:12)
[2022-02-04] MEDS: SUCRALFATE 1 GM TAB PO SCH ×4 (08:12→20:25)
[2022-02-04] MEDS: DOCUSATE SODIUM 100 MG CAP PO SCH ×2 (08:12→20:26)
[2022-02-04] MEDS: FIRST - Mouthwash BLM 119 ML PO SCH ×4 (08:12→21:55)
[2022-02-04] MEDS ORDERED: INSULIN HUMAN NPH SC SCH (09:00)
--- NOTE | 2022-02-04 09:06 | Hospitalist Progress Note ---
Date of Service February 04, 2022 Assessment & Plan (1) Atrial flutter with rapid ventricular response: Plan: 76-year-old female past medical history significant for small cell lung cancer, bladder carcinoma, breast cancer, COPD, DM2, polymyalgia rheumatica admitted for weakness and shortness of breath, found to be in a flutter with rapid ventricular response with heart rate in the 150s. Atrial flutter: On 02/02 patient noted worsening of her baseline shortness of breath as well as weakness which prompted her evaluation in the ER. She was found to have heart rates in the 150s, EKG confirming atrial flutter with rapid ventricular response. Troponin mildly elevated to 19.6. Cardiology consulted and appreciate recommendations: Recommendation was made for cardioversion however patient refuses at this time. Trial of oral flecainide was unsuccessful, therefore this morning patient received ibutilide this was also unsuccessful. Diltiazem gtt. was started. Patient was also started on oral metoprolol and flecainide, with hopeful transition off of diltiazem tomorrow in favor of these medications. Heparin transitioned to Eliquis -> benefit of anticoagulation outweighs risk at this time given continued aberrant rhythms putting patient at much higher risk of CVA. Daily CBC to monitor plts and Hgb and assess this risk/benefit daily. (2) Elevated troponin: Plan: Troponin was 19.6, which is very minimally elevated. No ST or T wave changes on EKG. Echocardiogram showed borderline reduced left ventricular function, moderate MR, moderate mitral annular calcification, mild right ventricular dilation. No evidence of pericardial effusion. Notable for rapid atrial flutter during the study. Demand ischemia secondary to atrial flutter with rapid ventricular response, anemia. (3) Chest pain: Plan: Resolved. (4) Antineoplastic chemotherapy induced pancytopenia: Plan: History of right-sided breast cancer stage IIA, ER+ / HER2 -, diagnosed in 2009. History of nonmuscle invasive bladder carcinoma diagnosed in August 2012, treated with BCG. Diagnosed with small cell lung cancer stage IIIb (lymphatic metastasis) in October 2021. Most recently had back pain and was found to have compression fractures at T11, T12, and L1. Has been going under chemoradiation with carboplatin/etoposide. On admission found to have pancytopenia (WBC count 0.44, hemoglobin 7.6, platelets 46 today) -> Hgb 8.0 today. No indication for transfusion at this time, however will transfuse PRBCs if hemoglobin drops less than 7.0. Daily CBC. (5) Small cell lung cancer: Plan: see above (6) UTI (urinary tract infection): Plan: Complains of dysuria today. Urine culture growing greater than 100,000 colony-forming units of gram-positive cocci -> Enterococcus. Continue Augmentin BID. (7) Compression fracture: Plan: See above (8) Chronic obstructive pulmonary disease: Plan: Patient with a history of COPD and 50 to 60 pack years of smoking. Continue Breo Ellipta and Incruse Ellipta, prednisone. Albuterol as needed. (9) Chronic respiratory failure with hypoxia: Plan: Secondary to COPD and small cell lung cancer. Continue 2 L nasal cannula with titrate of oxygen as needed. No evidence of pneumonia on chest x-ray. Incentive spirometer. (10) Diabetes mellitus, type 2: Plan: A1c 6.8% in November 2021. Continue NPH 10 units daily with sliding scale insulin. (11) Polymyalgia rheumatica: Plan: Continue home prednisone dose. Plan CODE STATUS: DNR/DNI FEN: Heart healthy DVT prophylaxis: Eliquis for now; hold if plts <30k Disposition: Telemetry Admission and Anticipated Discharge Date Admission Date: February 02, 2022 Subjective This morning feels that her breathing is better than yesterday. Still no symptoms of elevated heart rate. Overnight patient had heart rates anywhere from the 80s to the 130s, mostly sinus tachycardia with a few episodes of atrial fibrillation. Review of Systems Constitutional: no fever and no chills Respiratory: + dyspnea on exertion (Chronic); no cough Cardiovascular: no chest pain and no palpitations Gastrointestinal: no abdominal pain, no nausea and no vomiting Physical Exam Constitutional: WD/WN, vitals as above Respiratory: normal respiratory effort, lungs clear to auscultation Cardiovascular: Heart rate regular, tachycardic, no murmurs Gastrointestinal (Abdomen): normal bowel sounds, soft, nontender, no hepatosplenomegaly Skin: no rashes, warm and dry Psychiatric: A+Ox3, euthymic affect Results & Data Results & Data ([facility]) Vital Signs (Past 12 Hours) Vital Signs Temp Pulse Pulse Resp BP Pulse Ox O2 Del Method 02/04/22 07:10 36.4 C L 82 16 122/76 96 Nasal Cannula 02/04/22 03:15 36.3 C L 101 H 16 119/57 L 96 Nasal Cannula 02/03/22 23:29 36.4 C L 105 H 16 110/68 95 Nasal Cannula O2 Flow Rate 02/04/22 07:10 2 02/04/22 03:15 2 02/03/22 23:29 2 PG Care Time/CCT Total # of Minutes Spent Total Time Spent with Patient: Total time spent is greater than 50% in coordination of care (as documented) at patient's floor/unit and/or counseling patient: Coding Level of Care Code 36438 Subseq Hosp Care Lvl 3 Diagnoses Atrial flutter with rapid ventricular response I48.92 Elevated troponin R77.8 Chest pain R07.9 Antineoplastic chemotherapy induced pancytopenia D61.810; T45.1X5A Small cell lung cancer C34.90 UTI (urinary tract infection) N39.0 Compression fracture Chronic obstructive pulmonary disease J44.9 Chronic respiratory failure with hypoxia J96.11 Diabetes mellitus, type 2 E11.9 Polymyalgia rheumatica M35.3
[2022-02-04 09:58] LABS: Hematocrit (blood only) 24.3 % (34.1-44.9); Mean Corpuscular Hemoglobin 30.3 pg (25.0-34.0); Mean Corpuscular Hgb Conc 32.9 g/dL (32.0-36.0); Mean Platelet Volume 11.2 fL (9.4-12.3); Platelet Count 41 K/uL (130-400); RDW Coefficient of Variation 15.1 % (11.5-14.5); RDW Standard Deviation 47.4 fL (36.4-46.3); Red Blood Count 2.64 M/uL (3.93-5.22)
[2022-02-04 10:11] LABS: Partial Thromboplastin Ratio 1.1; Partial Thromboplastin Time 30.5 Seconds (21.0-31.0)
[2022-02-04 10:18] LABS: Creatinine Clr Calc Pharmacy 46.1 ml/min; Est GFR (African American) 65.7 ml/min; Est GFR (Non-African American) 56.6 ml/min; Potassium 3.5 mmol/L (3.5-5.1)
[2022-02-04] MEDS ORDERED: HEPARIN SOD (PORCINE) 1000 UNIT/ML IV ONE (11:30)
[2022-02-04] MEDS ORDERED: dilTIAZem HCl 5 MG/ML 5 ML VIAL IV STA ×3 (12:34→17:22)
[2022-02-04] MEDS ORDERED: STAT IV Infusion **Titration per Protocol STA ×2 (12:34→16:20)
[2022-02-04] MEDS ORDERED: dilTIAZem HCL 125 MG in DEXTROSE 5% 100 ML IV SCH (12:45)
--- NOTE | 2022-02-04 13:59 | Cardiology Progress Note ---
Date of Service February 04, 2022 Assessment & Plan (1) Atrial flutter with rapid ventricular response: (2) Sinus tachycardia: (3) Anticoagulant long-term use: Plan 1. Atrial flutter: Her rhythm converted spontaneously to sinus rhythm and sinus tachycardia with runs of PAT at around 2300 on February 03, 2022. Her heart rate has remained elevated averaging around 110 since. Historically she has had a rapid heart rate as well. Now that she is back in sinus rhythm I would recommen d trying to maintain it with the use of an antiarrhythmic agent, flecainide as a rate controlling effect and I am going to start 100 mg twice a day. 2. Sinus tachycardia: Historically she has had an elevated heart rate when in sinus rhythm in addition to when she is in her atrial arrhythmia. Flecainide may help, however additionally I think it would be good to place her on beta- joellen, she does have COPD and she has little bit of expiratory wheezing but most people can tolerate low-dose beta-blockade and it may help with the sinus tachycardia which may be in part catecholamine driven. I have added low-dose metoprolol tartrate, this could be switched to metoprolol succinate if she tolerates it. 3. Anticoagulation: She is on heparin, I would consider starting an oral agent, my preference is Eliquis and her dose would be 5 mg twice a day. Admission and Anticipated Discharge Date Admission Date: February 02, 2022 Subjective Flecainide was tried yesterday to convert her rhythm, however it was not successful. Ibutilide was also attempted but that did not convert her rhythm. However she did convert spontaneously to sinus tachycardia with runs of paroxysmal atrial fibrillation at around 11 PM on February 03, 2022. She has remained in this rhythm. Historically her heart rate has been fast for reasons which are not clear. I do not believe an electrocardiogram has been done in her current rhythm. I discussed things with her and her daughter, they have been aware that her heart rate is elevated for some time although the reasons are not clear. It does not sound as though she has been on a beta-joellen, that may be problematic with her lung disease but not necessarily. She does not seem to be very aware of the change in rhythm. Physical Exam Physical Exam: Constitutional: Alert, cooperative and in no distress. Pulmonary: Good breath sounds, mild expiratory wheezing in the left upper lobe. Cardiac: Regular rhythm with premature beats and no murmur, gallop or rub. Abdomen: Soft, nontender with normal bowel sounds. Extremities: No edema. Skin: No rash, ecchymoses or petechiae. Results & Data ([facility]) Vital Signs (Past 12 Hours) Vital Signs Temp Pulse Pulse Pulse Resp BP Pulse Ox 02/04/22 13:54 90 20 114/67 95 02/04/22 13:48 36.2 C L 107 H 18 123/73 94 02/04/22 11:39 36.5 C 112 H 20 132/74 95 02/04/22 07:00 122 H 02/04/22 07:10 36.4 C L 82 16 122/76 96 02/04/22 03:15 36.3 C L 101 H 16 119/57 L 96 O2 Del Method O2 Flow Rate 02/04/22 13:54 Nasal Cannula 2 02/04/22 13:48 Nasal Cannula 2 02/04/22 11:39 Nasal Cannula 2 02/04/22 07:00 02/04/22 07:10 Nasal Cannula 2 02/04/22 03:15 Nasal Cannula 2 Laboratory Results Coagulation 02/04/22 Range/Units 09:29 APTT 30.5 (21.0-31.0) Seconds CBC 02/04/22 Range/Units 09:29 WBC 0.30 L* (4.8-10.8) K/ul RBC 2.64 L (3.93-5.22) M/uL Hgb 8.0 L (12.0-16.0) g/dl Hct 24.3 L (34.1-44.9) % Plt Count 41 L (130-400) K/uL Neut # (Auto) Cancelled Lymph # (Auto) Cancelled Cecil # (Auto) Cancelled Eos # (Auto) Cancelled Baso # (Auto) Cancelled Comprehensive Metabolic Panel 02/04/22 Range/Units 09:29 Sodium 137 (136-145) mmol/L Potassium 3.5 (3.5-5.1) mmol/L Chloride 97 L (98-107) mmol/L Carbon Dioxide 34 H (21-32) mmol/L BUN 24 H (6-23) mg/dl Creatinine 0.96 (0.6-1.2) mg/dl Glucose 97 (70-99(Fasting)) mg/dl Calcium 9.0 (8.5-10.1) mg/dl Intake and Output 02/03/22 02/04/22 02/04/22 22:59 06:59 14:59 Intake Total 50 / 1544.000 734.000 / 1544.000 122.533 / 122.533 Output Total 225 / 425 525 / 525 Balance 50 / 1119.000 509.000 / 1119.000 -402.467 / -402.467 Intake: IV 50 / 634.000 484.000 / 634.000 122.533 / 122.533 Ampicillin 1,000 mg In Sodium 50 / 150 100 / 150 50.000 / 50.000 Chlor 0.9% Ad-Van 50 ml @ 100 mls/hr IV Q6H SEBASTIEN Rx#:[id number] Heparin Sodium/Dextrose 25,000 384.000 / 384.000 72.533 / 72.533 units In 500 ml @ 1,000 UNITS/ HR 20 mls/hr IV .Q24H SEBASTIEN Rx#: [id number] Oral 250 / 910 Output: Urine 225 / 425 525 / 525 Other: # Unmeasured Voids 1 1 Weight 79.6 kg Weight Measurement Method Built in [facility] Diagnostic Findings Telemetry: Atrial fibrillation or flutter until around 2300 on February 03, 2022 followed by sinus rhythm with premature beats and runs of PAT PG Care Time/CCT Total # of Minutes Spent Total Time Spent with Patient: Total time spent is greater than 50% in coordination of care (as documented) at patient's floor/unit and/or counseling patient: Coding Level of Care Code 30186 Subseq Hosp Care Lvl 3 Diagnoses Atrial flutter with rapid ventricular response I48.92 Sinus tachycardia R00.0 Anticoagulant long-term use Z79.01
[2022-02-04] MEDS ORDERED: METOPROLOL TARTRATE 25 MG TAB PO SCH (14:15)
[2022-02-04] MEDS: FLECAINIDE ACETATE 100 MG TABLET PO SCH ×2 (15:58→20:26)
[2022-02-04] MEDS: dilTIAZem HCL 125 MG in DEXTROSE 5% 100 ML IV SCH (16:34)
--- NOTE | 2022-02-04 17:02 | Electrocardiogram Report ---
Test Reason : Blood Pressure : / mmHG Vent. Rate : 104 BPM Atrial Rate : 107 BPM P-R Int : 180 ms QRS Dur : 138 ms QT Int : 396 ms P-R-T Axes : 044 -30 027 degrees QTc Int : 520 ms Sinus tachycardia with Premature atrial complexes Left axis deviation Right bundle branch block Minimal voltage criteria for LVH, may be normal variant Abnormal ECG When compared with ECG of 03-FEB-2022 11:49, No significant change Confirmed by Quinton De Souza ([id number]) on 02/04/2022 5:02:08 PM Referred By: REFERRED SELF Confirmed By:Quinton De Souza
[2022-02-04] MEDS: AMOXICILLIN/CLAVULANATE 875 MG TAB PO SCH (17:18)
[2022-02-04 17:44] LABS: Partial Thromboplastin Ratio 1.5; Partial Thromboplastin Time 42.4 Seconds (21.0-31.0)
[2022-02-04] MEDS: LEVALBUTEROL HCL 0.63 MG/3 ML NEB NEB SCH (19:52)
[2022-02-04] MEDS: NORTRIPTYLINE HCL 25 MG CAP PO SCH (20:25)
[2022-02-04] MEDS: CELECOXIB 100 MG CAP PO SCH (20:25)
[2022-02-04] MEDS: FOLIC ACID 1 MG TAB PO SCH (20:26)
[2022-02-04] MEDS ORDERED: APIXABAN 5 MG TABLET PO SCH (21:00)
[2022-02-04] MEDS: HEPARIN SODIUM/DEXTROSE 25,000 UNITS/500 ML BAG IV SCH ×2 (21:57)
[2022-02-05 06:57] LABS: Albumin Globulin Ratio 1.1 (0.9-2); Albumin Level 2.9 gm/dl (3.4-5.0); BUN Creatinine Ratio 24.7 (10-20); Bilirubin,Total 0.5 mg/dl (0.2-1.0); Calcium 8.6 mg/dl (8.5-10.1); Creatinine Clr Calc Pharmacy 57.8 ml/min; Est GFR (African American) 85.7 ml/min; Globulin 2.6 gm/dl (2.5-4.0); Potassium 3.5 mmol/L (3.5-5.1); Total Protein 5.5 gm/dl (6.0-8.3)
[2022-02-05 07:05] LABS: Hematocrit (blood only) 23.3 % (34.1-44.9); Hemoglobin 7.6 g/dl (12.0-16.0); Mean Corpuscular Hemoglobin 30.3 pg (25.0-34.0); Mean Corpuscular Hgb Conc 32.6 g/dL (32.0-36.0); Mean Corpuscular Volume 92.8 fL (80.0-100.0); Mean Platelet Volume 11.1 fL (9.4-12.3); Nucleated RBC # (auto) 0.02 K/uL (0-0); Platelet Count 33 K/uL (130-400); RDW Coefficient of Variation 15.1 % (11.5-14.5); RDW Standard Deviation 48.2 fL (36.4-46.3); Red Blood Count 2.51 M/uL (3.93-5.22); White Blood Count 0.22 K/ul (4.8-10.8)
[2022-02-05] MEDS: LEVALBUTEROL HCL 0.63 MG/3 ML NEB NEB SCH ×2 (07:12→19:40)
--- NOTE | 2022-02-05 07:29 | Hospitalist Progress Note ---
Date of Service February 05, 2022 Assessment & Plan (1) Atrial flutter with rapid ventricular response: Plan: 76-year-old female past medical history significant for small cell lung cancer, bladder carcinoma, breast cancer, COPD, DM2, polymyalgia rheumatica admitted for weakness and shortness of breath, found to be in a flutter with rapid ventricular response with heart rate in the 150s. Atrial flutter: On 02/02 patient noted worsening of her baseline shortness of breath as well as weakness which prompted her evaluation in the ER. She was found to have heart rates in the 150s, EKG confirming atrial flutter with rapid ventricular response. Troponin mildly elevated to 19.6. Cardiology consulted and appreciate recommendations: Recommendation was made for cardioversion however patient refuses at this time. Trial of oral flecainide was unsuccessful, therefore this morning patient received ibutilide this was also unsuccessful. Diltiazem gtt. was started; will transition to p.o. today. Patient was also started on oral flecainide for atrial rhythm control. Unfortunately this has been unsuccessful, so we will discontinue flecainide to allow for washout. Follow-up with Dr. Dupree tomorrow morning to determine next steps, which could include cardioversion, ablation. Continue Heparin gtt -> benefit of anticoagulation outweighs risk at this time given continued aberrant rhythms putting patient at much higher risk of CVA. Daily CBC to monitor plts and Hgb and assess this risk/benefit daily. (2) Antineoplastic chemotherapy induced pancytopenia: Plan: History of right-sided breast cancer stage IIA, ER+ / HER2 -, diagnosed in 2009. History of nonmuscle invasive bladder carcinoma diagnosed in August 2012, treated with BCG. Diagnosed with small cell lung cancer stage IIIb (lymphatic metastasis) in October 2021. Most recently had back pain and was found to have compression fractures at T11, T12, and L1. Has been going under chemoradiation with carboplatin/etoposide. On admission found to have pancytopenia (WBC count 0.44, hemoglobin 7.6, platelets 46 today) -> Hgb 7.6 today. No indication for transfusion at this time, however will transfuse PRBCs if hemoglobin drops less than 7.0. Patient's platelets continue to decline, with platelets today of 33. Heparin was discussed with hematology/oncology: Can continue at this time and continue to monitor, and can reverse as needed with protamine. Hematology/oncology consulted and appreciate recommendations: Recommended restaging with CT chest, abdomen, pelvis to rule out progression of disease. Pretreatment needed so the studies will be performed following that pretreatment. (3) Elevated troponin: Plan: Troponin was 19.6, which is very minimally elevated. No ST or T wave changes on EKG. Echocardiogram showed borderline reduced left ventricular function, moderate MR, moderate mitral annular calcification, mild right ventricular dilation. No evidence of pericardial effusion. Notable for rapid atrial flutter during the study. Demand ischemia secondary to atrial flutter with rapid ventricular response, anemia. (4) Chest pain: Plan: Resolved. (5) Small cell lung cancer: Plan: see above (6) UTI (urinary tract infection): Plan: Dysuria complaints on admission. Urine culture growing greater than 100,000 colony-forming units of gram-positive cocci -> Enterococcus. Continue Augmentin BID. (7) Compression fracture: Plan: See above (8) Chronic obstructive pulmonary disease: Plan: Patient with a history of COPD and 50 to 60 pack years of smoking. Continue Breo Ellipta and Incruse Ellipta, prednisone. Albuterol as needed. (9) Chronic respiratory failure with hypoxia: Plan: Secondary to COPD and small cell lung cancer. Continue 2 L nasal cannula with titrate of oxygen as needed. No evidence of pneumonia on chest x-ray. Incentive spirometer. (10) Diabetes mellitus, type 2: Plan: A1c 6.8% in November 2021. Continue NPH 10 units daily with sliding scale insulin. (11) Polymyalgia rheumatica: Plan: Continue home prednisone dose. Plan CODE STATUS: DNR/DNI FEN: Heart healthy DVT prophylaxis: Heparin drip, continue to monitor for sources/signs of bleeding and discontinue/reverse if this occurs Disposition: Telemetry Admission and Anticipated Discharge Date Admission Date: February 02, 2022 Subjective Overnight patient continued to have heart rates in the 80s to 120s, however this morning did switch back into atrial flutter and has remained as such since with heart rates in the 120s. Patient is asymptomatic throughout this, and does not feel any heart palpitations or chest pain, she does not report any increase in shortness of breath from last night when she was not in atrial flutter. Review of Systems Constitutional: no fever and no chills Respiratory: + dyspnea on exertion (Chronic); no cough Cardiovascular: no chest pain and no palpitations Gastrointestinal: no abdominal pain, no nausea and no vomiting Physical Exam Constitutional: WD/WN, vitals as above Respiratory: normal respiratory effort, lungs clear to auscultation Cardiovascular: Heart rate regular, tachycardic, no murmurs Gastrointestinal (Abdomen): normal bowel sounds, soft, nontender, no hepatosplenomegaly Skin: no rashes, warm and dry Psychiatric: A+Ox3, euthymic affect Results & Data Results & Data ([facility]) Vital Signs (Past 12 Hours) Vital Signs Temp Pulse Resp BP Pulse Ox O2 Del Method O2 Flow Rate 02/05/22 07:13 100 H 18 94 Nasal Cannula 2 02/05/22 02:51 36.3 C L 82 16 115/71 92 Nasal Cannula 2 02/04/22 23:45 36.4 C L 80 18 92/56 L 94 02/04/22 19:52 122 H 18 94 Nasal Cannula 2 02/04/22 19:40 36.4 C L 122 H 20 120/73 94 Nasal Cannula 2 PG Care Time/CCT Total # of Minutes Spent Total Time Spent with Patient: Total time spent is greater than 50% in coordination of care (as documented) at patient's floor/unit and/or counseling patient: Coding Level of Care Code 52670 Subseq Hosp Care Lvl 3 Diagnoses Atrial flutter with rapid ventricular response I48.92 Antineoplastic chemotherapy induced pancytopenia D61.810; T45.1X5A Elevated troponin R77.8 Chest pain R07.9 Small cell lung cancer C34.90 UTI (urinary tract infection) N39.0 Compression fracture Chronic obstructive pulmonary disease J44.9 Chronic respiratory failure with hypoxia J96.11 Diabetes mellitus, type 2 E11.9 Polymyalgia rheumatica M35.3
[2022-02-05] MEDS: dilTIAZem HCL 125 MG in DEXTROSE 5% 100 ML IV SCH ×3 (07:30→20:29)
[2022-02-05] MEDS: FIRST - Mouthwash BLM 119 ML PO SCH ×4 (07:38→20:33)
[2022-02-05] MEDS: SUCRALFATE 1 GM TAB PO SCH ×4 (07:38→20:31)
[2022-02-05] MEDS: AMOXICILLIN/CLAVULANATE 875 MG TAB PO SCH ×2 (08:14→17:39)
[2022-02-05] MEDS: FUROSEMIDE 40 MG TAB PO SCH (08:14)
[2022-02-05] MEDS: CHOLECALCIFEROL 1,000 UNITS 25 MCG TAB PO SCH (08:14)
[2022-02-05] MEDS: FLECAINIDE ACETATE 100 MG TABLET PO SCH (08:14)
[2022-02-05] MEDS: predniSONE 10 MG TABLET PO SCH (08:14)
[2022-02-05] MEDS: POLYETHYLENE (MIRALAX) 17 GM PACK PO SCH ×2 (08:15→09:01)
[2022-02-05] MEDS: UMECLIDINIUM BROMIDE 62.5MCG/BLISTER 7 PUFFS/INHALER INH SCH (08:15)
[2022-02-05] MEDS: CYANOCOBALAMIN (B-12) 500 MCG TABLET PO SCH (08:15)
[2022-02-05] MEDS: DOCUSATE SODIUM 100 MG CAP PO SCH ×2 (08:15→20:32)
[2022-02-05] MEDS: FLUTICASONE/VILANTEROL 100/25MCG 14 PUFFS/INHALER INH SCH (08:16)
[2022-02-05] MEDS: INSULIN ASPART PER UNIT SC SCH ×4 (09:38→22:00)
[2022-02-05] MEDS ORDERED: Heparin IV Adult Wt-Based Standard *NO* Bolus Protocol IV SCH (10:15)
[2022-02-05] MEDS: HEPARIN SODIUM/DEXTROSE 25,000 UNITS/500 ML BAG IV SCH (10:53)
--- NOTE | 2022-02-05 11:08 | Pharmacy Report ---
Pharmacy Glycemic Short Note 2 - Date of Service February 05, 2022 - Glycemic Short BSG Results (Last 24 hours): 02/04/22 02/04/22 02/04/22 11:27 16:04 20:19 Glucose POC Glucose 96 81 148 H 02/05/22 02/05/22 06:05 09:32 Glucose 95 POC Glucose 113 H OUTPATIENT ANTIDIABETIC REGIMEN: * Metformin 850 mg PO BID * HbA1C = 6.8% (12/26/21) ASSESSMENT: 02/05: * Patient received 10 units of basal NPH insulin yesterday to cover for the Prednisone that she is on. She received 2 units of bolus insulin. * BSGs yesterday were 39-37-47-148 yesterday. * Since BSG was down to 81 mg/dl at dinner time yesterday with 12 units of insulin and blood sugars at or below goal, discontinued basal NPH insulin today. * Food intake has also been lower yesterday. If diet improves, consider adding basal insulin back on. Background 02/03/22: * Ms Ward is a 76 y/o F with a PMH of T2DM on oral medications. * She received Solu-Medrol 125 mg IV x 1 in the ER yesterday AM. Patient recei yobani no insulin that day. * Patient started on prednisone 10 mg daily (Home dose). * Fasting this AM was 175 mg/dL. * Will start NPH 20 units (0.25 units/kg). This is for prednisone effects + slightly extra for steroids yesterday. Decrease to 10 units daily on 02/04 * Novolog weight-based stress of 3. PLAN FOR INPATIENT GLYCEMIC CONTROL: * Basal insulin * None today * Bolus insulin * NovoLog per scale ACHS or Q6hrs while NPO * Goal Range: Low 110 mg/dL - High 140 mg/dL * Correction Factor: 20 mg/dL/unit * Nutritional / Prandial insulin per carb ratio of 1 unit per 7 grams CHO consumed
[2022-02-05] MEDS: ONDANSETRON INJ 2 MG/ML 2 ML VIAL IV PRN (11:40)
[2022-02-05 11:47] LABS: INR 1.1 (0.9-1.1); Prothrombin Time 11.5 Seconds (9.0-12.0)
[2022-02-05] MEDS: FILGRASTIM 480 MCG/1.6 ML VIAL SC SCH (12:17)
--- NOTE | 2022-02-05 12:52 | Oncology Consultation ---
Date of Consultation February 05, 2022 Assessment & Plan (1) Antineoplastic chemotherapy induced pancytopenia: (2) Small cell lung cancer: (3) Atrial flutter with rapid ventricular response: Plan 1. Small cell lung cancer: S/p 3 cycles of carboplatin/etoposide as well as concurrent chemoradiation treatment. She has 1 more cycle of chemotherapy. Will decrease doses of carboplatin/etoposide for cycle 4 of treatment. May have to hold cycle 4 of treatment if clinical condition does not improve. Recommend restaging with CT CAP to rule out progression of disease. 2. Pancytopenia: This is expected as she is currently at chemotherapy kimberly period (day 7-10 after chemo). Will make further dose reductions to cycle 4 of carboplatin/etoposide. Since radiation has been completed, GCSF can be incorporated. Start filgrastim (zarxio) 480mcg daily x 3 days. Will add neulasta to cycle 4 of treatment. Plan to check labs weekly at [facility] after discharge. Transfuse for Hb <7.5, platelet count <20,000 3. Atrial flutter with RVR: Continue with heparin. Transfuse for platelet count less than 20,000 or if bleeding Discussed above plan with patient and her daughter. They were both in agreement. Oncology will continue following while inpatient History of Present Illness Reason for Consultation: Chemotherapy-induced pancytopenia Attending Physician: Violeta Akers DO History of Present Illness Ms. Ward is a 76-year-old female with an extensive oncologic history including stage IIA right breast invasive ductal carcinoma diagnosed in 2009, for which she is status post lumpectomy, adjuvant chemotherapy treatments, adjuvant radiation treatment and received 5 years of adjuvant Arimidex. She also has a more recent history of limited stage small cell lung cancer, stage IIIB, for which she started concurrent chemoradiation with carboplatin/etoposide on 12/12/2021. She completed radiation treatment on 01/25/2022 and is scheduled to receive cycle 4/last cycle of chemotherapy from 02/14/2022 to 02/16/2022. The patient presented to the ER at [facility] on 02/02/2022 with worsening shortness of breath. Labs obtained revealed pancytopenia with white cell count of 0.43, hemoglobin of 5.3, hematocrit of 16.5 and platelet count of 70,000. She was found to being atrial flutter with RVR for which she was placed on flecainide and more recently on ibutilide with no response was subsequently converted spontaneously. She complains of fatigue and shortness of breath. Also complains of weight loss and poor appetite. States that chemotherapy treatment has overall been poorly tolerated. Of note, she was also admitted on 12/25/2021 with complaints of increased shortness of breath, pancytopenia and decline in performance status. Following discharge at that time, her chemotherapy dose was decreased and she is currently receiving carboplatin AUC of 4 and etoposide 80 mg per metered squared Allergies Allergy/AdvReac Type Severity Reaction Status Date / Time castor oil Allergy Severe "TAXANES" Verified 01/23/22 11:47 CAUSE DYSPNEA, RASH, ELEVATED BP docetaxel [From Taxotere] Allergy Severe "TAXANES" Verified 01/23/22 11:47 CAUSE DYSPNEA, RASH, ELEVATED BP paclitaxel Allergy Severe "TAXANES" Verified 01/23/22 11:47 CAUSE DYSPNEA, RASH, ELEVATED BP trimethoprim [From Bactrim] Allergy Severe Anaphylaxis Verified 01/23/22 11:47 Iodinated Contrast Media Allergy Intermediate HIVES/ITCHI Verified 01/23/22 11:47 NG nitrofurantoin Allergy Intermediate CHEST Verified 01/23/22 11:47 PAIN, DYSPNEA Sulfa (Sulfonamide Allergy Intermediate HIVES, Verified 01/23/22 11:47 Antibiotics) ITCHINESS, SHORTNESS OF BREATH phenazopyridine AdvReac Intermediate N/V Verified 01/23/22 11:47 codeine AdvReac COLD Verified 01/23/22 11:47 SWEAT, THINGS START SPINNING, NAUSEA Home Medications Medication Instructions Recorded Confirmed Type metformin 850 mg tablet 850 mg PO BID 07/05/21 01/22/22 History nortriptyline 25 mg capsule 25 mg PO HS #90 caps 11/04/21 01/22/22 Rx alendronate 70 mg tablet (Fosamax) 70 mg PO WEEKLY #4 tabs 11/21/21 01/22/22 Rx folic acid 1 mg tablet 1 mg PO QPM #30 tabs 11/21/21 01/22/22 Rx cholecalciferol (vitamin D3) 25 25 mcg PO DAILY 12/01/21 01/22/22 History mcg (1,000 unit) capsule mecobalamin (vitamin B12) 1,000 1,000 mcg sublingual DAILY 12/01/21 01/22/22 History mcg disintegrating tablet,sublingual ipratropium 0.5 mg-albuterol 3 mg 3 ml inhalation Q6H PRN wheezing 12/05/21 01/22/22 Rx (2.5 mg base)/3 mL nebulization #360 mL soln nebulizers #1 ea 12/05/21 01/22/22 Rx fluticasone furoate 100 1 inh inhalation DAILY #60 ea 12/07/21 01/22/22 Rx mcg-vilanterol 25 mcg/dose inhalation powder (Breo Ellipta) umeclidinium 62.5 mcg/actuation 1 inh inhalation DAILY #30 ea 12/07/21 01/22/22 Rx blister powder for inhalation (Incruse Ellipta) diltiazem HCl 240 mg 240 mg PO QAM #30 caps 12/28/21 01/22/22 Rx capsule,extended release 24 hr prednisone 10 mg tablet See Rx Instructions .Route 12/28/21 01/22/22 Rx .COMPLEX #30 tabs omeprazole 20 mg capsule,delayed 20 mg PO QPM #90 caps 12/29/21 01/22/22 Rx release Magic Mouthwash 300 mL mouthwash 10 ml mucous membrane ACHS 01/11/22 01/22/22 Rx Dysphagia #300 mL furosemide 20 mg tablet (Lasix) 40 mg PO QAM 01/16/22 01/23/22 History albuterol sulfate 90 mcg/actuation 2 puff inhalation 6XD PRN Wheezing 01/22/22 01/23/22 History aerosol inhaler (Ventolin HFA) docusate sodium 100 mg capsule 100 mg PO BID #60 caps 01/22/22 01/23/22 Rx (Colace) polyethylene glycol 3350 17 17 g PO DAILY #238 grams 01/22/22 01/23/22 Rx gram/dose oral powder (Miralax) sucralfate 1 gram tablet (Carafate) 1 g PO ACHS 01/22/22 01/23/22 History celecoxib 100 mg capsule (Celebrex) 100 mg PO QPM #30 caps 01/30/22 Rx Patient History Medical History (Updated 02/04/22 @ 14:17 by Quinton De Souza MD) Asthma (04/25/12) Stable and controlled Chronic dyspnea Chronic obstructive pulmonary disease STABLE- CONTROLLED- ALBUTEROL USE THIS AM COPD (chronic obstructive pulmonary disease) COPD exacerbation Diabetes mellitus, type 2 NIDDM- WELL CONTROLLED AND STABLE Endometrial thickening on ultrasound Ex-smoker GERD (gastroesophageal reflux disease) Hearing deficit NO AIDS Hemoptysis History of breast cancer RIGHT S/P LUMPECTOMY/CHEMO/RADATION (2009)- STABLE AT THIS TIME History of diverticulitis History of liver disease 03/2019 KIMBERLY FOR LIVER ABSCESS- GIVEN ABXS X MONTHS- FOLLOWING WITH [facility]EME FOR MONITORING -RECENT CT SCAN 06/16/19- SHOWS ABSCESS TO BE DECREASED TO 3.5CM (SURGEON IS AWARE) Hx of bladder cancer HAD BCG INSTILLATION - DX: 2012 Left rib fracture (2016) Liver abscess Lower extremity edema Malignant neoplasm of lung Bronch with biopsy on 11/15/21 Migraine HX Osteoporosis Osteoporosis Pancytopenia due to antineoplastic chemotherapy PMR (polymyalgia rheumatica) PMR (polymyalgia rheumatica) CHRONIC Port-A-Cath in place Small cell lung cancer Tobacco abuse Tremor RIGHT HAND Ureteral tumor Vertebral fracture LUMBAR AND THORACIC Surgical History H/O cystoscopy SEVERAL History of appendectomy History of arthroscopy B/L KNEE History of breast biopsy History of bronchoscopy 11/15/21 History of cholecystectomy History of colonoscopy History of elbow surgery RIGHT History of lumpectomy of right breast History of surgery TURBT X 2; TURBT, CYSTO, RIGHT RPG, STENT: 07/11/18: LMA#4 AT [facility] History of surgery LEFT CHEST PORT Nausea and vomiting after administration of anesthetic agent Family History Other Adopted Family history unknown Social History Smoking Status: Former smoker Tobacco Type: Cigarettes Cigarettes Per Day: 6; Second Hand Exposure: Yes; Hx Alcohol Use: No Hx Substance Use: No Preferred Language: Macedonian Communication Ability: Effective Visual Impairment: No Limitations Hearing Ability: Normal Information Assoc Required: No Beliefs That Will Affect Care: None marital status: Single Current Living Situation: Other Current Living Situation Comment: lives with roommate current occupational status: retired Feels Safe at Home: Yes Childhood Exposure to Second-Hand Smoke: Yes caffeine: No during the past year weight has: remained stable Dental Care, Regularly: Yes Physical Activity Frequency: 1-2 Times per Week Seatbelt Use: always Sunscreen Use: Yes Assistive Devices: Oxygen - Continuous and Walker Review of Systems Review of Systems: All systems reviewed & are unremarkable except as noted in HPI & below Physical Exam Eyes: PERRL, conjunctivae normal, anicteric sclerae Respiratory: normal respiratory effort, lungs clear to auscultation Cardiovascular: Rate/Rhythm: + tachycardic Gastrointestinal (Abdomen): normal bowel sounds, soft, nontender, no hepatos plenomegaly Results & Data ([facility]) Vital Signs (Past 12 Hours) Vital Signs Temp Pulse Pulse Resp BP Pulse Ox O2 Del Method 02/05/22 08:00 Nasal Cannula 02/05/22 11:43 36.6 C 126 H 20 109/65 92 Nasal Cannula 02/05/22 08:10 127 H 107/70 02/05/22 08:00 98 H 02/05/22 07:28 36.5 C 94 H 20 120/69 90 Nasal Cannula 02/05/22 07:13 100 H 18 94 Nasal Cannula 02/05/22 02:51 36.3 C L 82 16 115/71 92 Nasal Cannula O2 Flow Rate 02/05/22 08:00 2 02/05/22 11:43 2.0 02/05/22 08:10 02/05/22 08:00 02/05/22 07:28 2 02/05/22 07:13 2 02/05/22 02:51 2 Laboratory Results White cell count of 0.22, hemoglobin 7.6 and platelet count of 33,000
[2022-02-05] MEDS ORDERED: diphenhydrAMINE Capsule 25 MG CAP PO ONE (16:45)
--- NOTE | 2022-02-05 17:29 | Cardiology Progress Note ---
Date of Service February 05, 2022 Assessment & Plan (1) Atrial flutter with rapid ventricular response: (2) Chronic respiratory failure with hypoxia: (3) Antineoplastic chemotherapy induced pancytopenia: Plan ASSESSMENT/PLAN: 1. Atrial flutter: Reverted to atrial flutter again this morning, despite flecainide 100 mg twice daily for 3 doses. Also flecainide 300 mg once was ineffective in converting her to sinus rhythm earlier this hospital stay, as was ibutilide. She is tolerating atrial flutter well and with diltiazem, her heart rate is in the 120s. Given that flecainide has been ineffective, will discontinue flecainide at this time and allow washout. Dr. Dupree, her e lectrophysiologist, can resume her care tomorrow and decide next steps. Challenging situation, especially in the setting of significant thrombocytopenia. Currently on heparin drip for anticoagulation for stroke risk reduction. Monitor closely for bleeding. Monitor platelet level closely as well. 2. Chronic respiratory failure with hypoxia: Uses supplemental oxygen at home. Breathing is stable however she appears mildly hypervolemic. Continue Lasix and would consider increasing dose or intermittent intravenous dose of Lasix if necessary. Would try to maintain net negative fluid balance. She had negative net balance yesterday. She is undergoing treatment for small cell lung cancer. 3. Pancytopenia: Hematology/oncology is following. Monitor for bleeding, especially while on heparin drip. 4. Disposition: Patient care communicated with primary hospitalist, Dr. Akers. Patient's daughter, Mei, was contacted via telephone, to notify her that flecainide has thus far been ineffective and that Dr. Dupree will likely weigh in tomorrow on further options. Admission and Anticipated Discharge Date Admission Date: February 02, 2022 Subjective She denies palpitations but states that she does not feel well overall. She has had nausea. She has chronic but stable dyspnea with exertion in uses supplemental oxygen, 2 L at home. She has had some swelling of her lower extremities. She chest pain, shortness of breath at rest, orthopnea, or bleeding. During this hospital stay, she has received flecainide 300 mg p.o. x1 which did not convert atrial flutter to sinus rhythm. She also received ibutilide, which was also unsuccessful in achieving sinus rhythm. She spontaneously converted on 02/03/2022 at approximately 11:00 p.m. per electrophysiology note. She was placed on flecainide 100 mg twice daily by Dr. De Souza yesterday. She develope d atrial flutter this morning at approximately 8:01 a.m. with tachycardia and has not noted any significant change in symptoms. She was alone in her hospital room. Review of systems: As above. Physical Exam Physical Exam: Gen.: No acute distress. Alert and oriented. HEENT: Anicteric sclera. Neck: Mild JVD. Cardiac: No ventricular heave. Regular and tachycardic. Normal S1-S2. No murmurs, rubs, or gallops. Pulmonary: Decreased breath sounds at the left base, but otherwise clear. Abdomen: Soft, nontender, nondistended, with normoactive bowel sounds. No bruits noted. Extremities: 1+ right radial pulse. 2+ left radial pulse. 1+ bilateral lower extremity edema. No cyanosis. Psychiatric: Affect appears appropriate. Results & Data ([facility]) Vital Signs (Past 12 Hours) Vital Signs Temp Pulse Pulse Resp BP Pulse Ox O2 Del Method 02/05/22 15:32 37.0 C 126 H 18 128/76 92 Nasal Cannula 02/05/22 15:00 125 H 02/05/22 08:00 Nasal Cannula 02/05/22 11:43 36.6 C 126 H 20 109/65 92 Nasal Cannula 02/05/22 08:10 127 H 107/70 02/05/22 08:00 98 H 02/05/22 07:28 36.5 C 94 H 20 120/69 90 Nasal Cannula 02/05/22 07:13 100 H 18 94 Nasal Cannula O2 Flow Rate 02/05/22 15:32 2.5 02/05/22 15:00 02/05/22 08:00 2 02/05/22 11:43 2.0 02/05/22 08:10 02/05/22 08:00 02/05/22 07:28 2 02/05/22 07:13 2 Intake & Output 02/03/22 02/04/22 02/05/22 02/06/22 06:59 06:59 06:59 06:59 Intake Total 755.850 / 983.773 6075.000 / 4348.101 6133.649 / 1131.649 906.917 / 906.917 Output Total 575 / 575 425 / 425 1925 / 1925 300 / 300 Balance 180.850 / 826.245 8542.000 / 1119.000 -793.351 / -793.351 606.917 / 606.917 Weight 174 lb 6.17 oz 175 lb 7.807 oz 177 lb 0.499 oz Laboratory Results Laboratory Results - last 24 hr 02/04/22 02/04/22 02/05/22 17:21 20:19 06:05 WBC 0.22 L* RBC 2.51 L Hgb 7.6 L Hct 23.3 L MCV 92.8 MCH 30.3 MCHC 32.6 RDW Std Deviation 48.2 H RDW Coeff of Atul 15.1 H Plt Count 33 L MPV 11.1 Immature Gran % (Auto) Cancelled Neut % (Auto) Cancelled Lymph % (Auto) Cancelled Finney % (Auto) Cancelled Eos % (Auto) Cancelled Baso % (Auto) Cancelled Neut # (Auto) Cancelled Lymph # (Auto) Cancelled Finney # (Auto) Cancelled Eos # (Auto) Cancelled Baso # (Auto) Cancelled Immature Gran # (Auto) Cancelled Absolute Nucleated RBC 0.02 H Nucleated RBC % (auto) 8.0 Neutrophils % (Manual) Cancelled Band Neutrophils % Cancelled Lymphocytes % (Manual) Cancelled Prolymphocyte % Cancelled Reactive Lymphs % (Man) Cancelled Monocytes % (Manual) Cancelled Eosinophils % (Manual) Cancelled Basophils % (Manual) Cancelled Metamyelocytes % (Man) Cancelled Myelocytes % (Man) Cancelled Promyelocytes % (Man) Cancelled Blast Cells % (Manual) Cancelled Plasma Cell % (Manual) Cancelled Other Cells % Cancelled Nucleated RBC % Cancelled Neutrophils # (Manual) Cancelled Band Neutrophils # Cancelled Total Absolute Neuts Cancelled Lymphocytes # (Manual) Cancelled Prolymphocyte # Cancelled Reactive Lymphs # Cancelled Total Abs Lymphocytes Cancelled Monocytes # (Manual) Cancelled Eosinophils # (Manual) Cancelled Basophils # (Manual) Cancelled Metamyelocytes # (Man) Cancelled Myelocytes # (Manual) Cancelled Promyelocytes # (Man) Cancelled Blast Cells # (Man) Cancelled Plasma Cell # (Manual) Cancelled Other Cells # Cancelled Nucleated RBCs # (Man) Cancelled Hypersegmented Neuts Cancelled Hyposegmented Neuts Cancelled Hypogranular Neuts Cancelled Large Granular Lymphs Cancelled # Lrg Granular Lymphs Cancelled Hairy Cells Cancelled Smudge Cells Cancelled Toxic Granulation Cancelled Toxic Vacuolation Cancelled Dohle Bodies Cancelled Jose Rods Cancelled Hypogranular Platelets Cancelled Clumped Platelets Cancelled Giant Platelets Cancelled Platelet Satelliting Cancelled RBC Morphology Cancelled Polychromasia Cancelled Hypochromasia Cancelled Poikilocytosis Cancelled Basophilic Stippling Cancelled Anisocytosis Cancelled Microcytosis Cancelled Macrocytosis Cancelled Spherocytes Cancelled Pappenheimer Bodies Cancelled Sickle Cells Cancelled Target Cells Cancelled Tear Drop Cells Cancelled Ovalocytes Cancelled Stomatocytes Cancelled [place] Bodies Cancelled Echinocytes Cancelled Acanthocytes (Spur) Cancelled Rouleaux Cancelled RBC Agglutinates Cancelled Schistocytes Cancelled Peripher Smr Path Cons Pending Sezary Cell Cancelled Haptoglobin PT INR APTT 42.4 H PTT Ratio 1.5 Sodium Potassium Chloride Carbon Dioxide Anion Gap BUN Creatinine Est Cr Clr Drug Dosing Est GFR ( Amer) Est GFR (Non-Af Amer) BUN/Creatinine Ratio Glucose POC Glucose 148 H Calcium Total Bilirubin AST ALT Alkaline Phosphatase Lactate Dehydrogenase Total Protein Albumin Globulin Albumin/Globulin Ratio Blood Parasites ID Cancelled 02/05/22 02/05/22 02/05/22 06:05 07:32 07:32 WBC RBC Hgb Hct MCV MCH MCHC RDW Std Deviation RDW Coeff of Atul Plt Count MPV Immature Gran % (Auto) Neut % (Auto) Lymph % (Auto) Finney % (Auto) Eos % (Auto) Baso % (Auto) Neut # (Auto) Lymph # (Auto) Finney # (Auto) Eos # (Auto) Baso # (Auto) Immature Gran # (Auto) Absolute Nucleated RBC Nucleated RBC % (auto) Neutrophils % (Manual) Band Neutrophils % Lymphocytes % (Manual) Prolymphocyte % Reactive Lymphs % (Man) Monocytes % (Manual) Eosinophils % (Manual) Basophils % (Manual) Metamyelocytes % (Man) Myelocytes % (Man) Promyelocytes % (Man) Blast Cells % (Manual) Plasma Cell % (Manual) Other Cells % Nucleated RBC % Neutrophils # (Manual) Band Neutrophils # Total Absolute Neuts Lymphocytes # (Manual) Prolymphocyte # Reactive Lymphs # Total Abs Lymphocytes Monocytes # (Manual) Eosinophils # (Manual) Basophils # (Manual) Metamyelocytes # (Man) Myelocytes # (Manual) Promyelocytes # (Man) Blast Cells # (Man) Plasma Cell # (Manual) Other Cells # Nucleated RBCs # (Man) Hypersegmented Neuts Hyposegmented Neuts Hypogranular Neuts Large Granular Lymphs # Lrg Granular Lymphs Hairy Cells Smudge Cells Toxic Granulation Toxic Vacuolation Dohle Bodies Jose Rods Hypogranular Platelets Clumped Platelets Giant Platelets Platelet Satelliting RBC Morphology Polychromasia Hypochromasia Poikilocytosis Basophilic Stippling Anisocytosis Microcytosis Macrocytosis Spherocytes Pappenheimer Bodies Sickle Cells Target Cells Tear Drop Cells Ovalocytes Stomatocytes [place] Bodies Echinocytes Acanthocytes (Spur) Rouleaux RBC Agglutinates Schistocytes Peripher Smr Path Cons Cancelled Sezary Cell Haptoglobin PT INR APTT PTT Ratio Sodium 131 L Potassium 3.5 Chloride 95 L Carbon Dioxide 33 H Anion Gap 3 BUN 19 Creatinine 0.77 Est Cr Clr Drug Dosing 57.8 Est GFR ( Amer) 85.7 Est GFR (Non-Af Amer) 74.0 BUN/Creatinine Ratio 24.7 H Glucose 95 POC Glucose Calcium 8.6 Total Bilirubin 0.5 AST 11 L ALT 25 Alkaline Phosphatase 70 Lactate Dehydrogenase 120 Total Protein 5.5 L Albumin 2.9 L Globulin 2.6 Albumin/Globulin Ratio 1.1 Blood Parasites ID 02/05/22 02/05/22 02/05/22 07:32 09:32 10:46 WBC RBC Hgb Hct MCV MCH MCHC RDW Std Deviation RDW Coeff of Atul Plt Count MPV Immature Gran % (Auto) Neut % (Auto) Lymph % (Auto) Finney % (Auto) Eos % (Auto) Baso % (Auto) Neut # (Auto) Lymph # (Auto) Finney # (Auto) Eos # (Auto) Baso # (Auto) Immature Gran # (Auto) Absolute Nucleated RBC Nucleated RBC % (auto) Neutrophils % (Manual) Band Neutrophils % Lymphocytes % (Manual) Prolymphocyte % Reactive Lymphs % (Man) Monocytes % (Manual) Eosinophils % (Manual) Basophils % (Manual) Metamyelocytes % (Man) Myelocytes % (Man) Promyelocytes % (Man) Blast Cells % (Manual) Plasma Cell % (Manual) Other Cells % Nucleated RBC % Neutrophils # (Manual) Band Neutrophils # Total Absolute Neuts Lymphocytes # (Manual) Prolymphocyte # Reactive Lymphs # Total Abs Lymphocytes Monocytes # (Manual) Eosinophils # (Manual) Basophils # (Manual) Metamyelocytes # (Man) Myelocytes # (Manual) Promyelocytes # (Man) Blast Cells # (Man) Plasma Cell # (Manual) Other Cells # Nucleated RBCs # (Man) Hypersegmented Neuts Hyposegmented Neuts Hypogranular Neuts Large Granular Lymphs # Lrg Granular Lymphs Hairy Cells Smudge Cells Toxic Granulation Toxic Vacuolation Dohle Bodies Jose Rods Hypogranular Platelets Clumped Platelets Giant Platelets Platelet Satelliting RBC Morphology Polychromasia Hypochromasia Poikilocytosis Basophilic Stippling Anisocytosis Microcytosis Macrocytosis Spherocytes Pappenheimer Bodies Sickle Cells Target Cells Tear Drop Cells Ovalocytes Stomatocytes [place] Bodies Echinocytes Acanthocytes (Spur) Rouleaux RBC Agglutinates Schistocytes Peripher Smr Path Cons Sezary Cell Haptoglobin Pending PT 11.5 INR 1.1 APTT PTT Ratio Sodium Potassium Chloride Carbon Dioxide Anion Gap BUN Creatinine Est Cr Clr Drug Dosing Est GFR ( Amer) Est GFR (Non-Af Amer) BUN/Creatinine Ratio Glucose POC Glucose 113 H Calcium Total Bilirubin AST ALT Alkaline Phosphatase Lactate Dehydrogenase Total Protein Albumin Globulin Albumin/Globulin Ratio Blood Parasites ID 02/05/22 02/05/22 11:25 16:11 WBC RBC Hgb Hct MCV MCH MCHC RDW Std Deviation RDW Coeff of Atul Plt Count MPV Immature Gran % (Auto) Neut % (Auto) Lymph % (Auto) Finney % (Auto) Eos % (Auto) Baso % (Auto) Neut # (Auto) Lymph # (Auto) Finney # (Auto) Eos # (Auto) Baso # (Auto) Immature Gran # (Auto) Absolute Nucleated RBC Nucleated RBC % (auto) Neutrophils % (Manual) Band Neutrophils % Lymphocytes % (Manual) Prolymphocyte % Reactive Lymphs % (Man) Monocytes % (Manual) Eosinophils % (Manual) Basophils % (Manual) Metamyelocytes % (Man) Myelocytes % (Man) Promyelocytes % (Man) Blast Cells % (Manual) Plasma Cell % (Manual) Other Cells % Nucleated RBC % Neutrophils # (Manual) Band Neutrophils # Total Absolute Neuts Lymphocytes # (Manual) Prolymphocyte # Reactive Lymphs # Total Abs Lymphocytes Monocytes # (Manual) Eosinophils # (Manual) Basophils # (Manual) Metamyelocytes # (Man) Myelocytes # (Manual) Promyelocytes # (Man) Blast Cells # (Man) Plasma Cell # (Manual) Other Cells # Nucleated RBCs # (Man) Hypersegmented Neuts Hyposegmented Neuts Hypogranular Neuts Large Granular Lymphs # Lrg Granular Lymphs Hairy Cells Smudge Cells Toxic Granulation Toxic Vacuolation Dohle Bodies Jose Rods Hypogranular Platelets Clumped Platelets Giant Platelets Platelet Satelliting RBC Morphology Polychromasia Hypochromasia Poikilocytosis Basophilic Stippling Anisocytosis Microcytosis Macrocytosis Spherocytes Pappenheimer Bodies Sickle Cells Target Cells Tear Drop Cells Ovalocytes Stomatocytes S[place] Bodies Echinocytes Acanthocytes (Spur) Rouleaux RBC Agglutinates Schistocytes Peripher Smr Path Cons Sezary Cell Haptoglobin PT INR APTT PTT Ratio Sodium Potassium Chloride Carbon Dioxide Anion Gap BUN Creatinine Est Cr Clr Drug Dosing Est GFR ( Amer) Est GFR (Non-Af Amer) BUN/Creatinine Ratio Glucose POC Glucose 162 H 240 H Calcium Total Bilirubin AST ALT Alkaline Phosphatase Lactate Dehydrogenase Total Protein Albumin Globulin Albumin/Globulin Ratio Blood Parasites ID Diagnostic Findings Telemetry personally reviewed: Atrial flutter with rapid ventricular response. Sinus rhythm converted to atrial flutter at 8:01 a.m. on 02/05/2022. Medications Administered Current Inpatient Medications Acetaminophen (Acetaminophen 325 Mg Tab) 650 mg PO Q4H PRN PRN Reason: Pain or Fever Stop: 03/04/22 12:04 Alendronate Sodium (Alendronate Sodium 70 Mg Tab) 70 mg PO Tu@0630 [facility] Stop: 03/09/22 06:29 Amoxicillin/Clavulanate Potassium (Amoxicillin/Clavulanate 875 Mg Tab) 1 tab PO BIDM [facility] Stop: 02/14/22 16:59 Last Admin: 02/05/22 08:14 Dose: 1 tab Celecoxib (Celecoxib 100 Mg Cap) 100 mg PO QPM [facility] Stop: 03/04/22 20:59 Last Admin: 02/04/22 20:25 Dose: 100 mg Cyanocobalamin (Cyanocobalamin (B-12) 500 Mcg Tablet) 1,000 mcg PO DAILY [facility] Stop: 03/05/22 08:59 Last Admin: 02/05/22 08:15 Dose: 1,000 mcg Dextrose (Dextrose 50% 50 Ml Syringe) 25 - 50 ml IV UD PRN; Protocol PRN Reason: Hypoglycemia Protocol Stop: 03/05/22 07:14 Docusate Sodium (Docusate Sodium 100 Mg Cap) 100 mg PO BID [facility] Stop: 03/04/22 20:59 Last Admin: 02/05/22 08:15 Dose: 100 mg Filgrastim (Filgrastim 480 Mcg/1.6 Ml Vial) 480 mcg SC DAILY [facility] Stop: 02/07/22 09:01 Last Admin: 02/05/22 12:17 Dose: 480 mcg Flecainide Acetate (Flecainide Acetate 100 Mg Tablet) 100 mg PO Q12 [facility] Stop: 03/06/22 15:14 Last Admin: 02/05/22 08:14 Dose: 100 mg Fluticasone/Vilanterol (Fluticasone/Vilanterol 100/25mcg 14 Puffs/Inhaler) 1 puffs INH DAILY [facility] Stop: 03/05/22 08:59 Last Admin: 02/05/22 08:16 Dose: 1 puffs Folic Acid (Folic Acid 1 Mg Tab) 1 mg PO QPM [facility] Stop: 03/04/22 20:59 Last Admin: 02/04/22 20:26 Dose: 1 mg Furosemide (Furosemide 40 Mg Tab) 40 mg PO QAM [facility] Stop: 03/05/22 08:59 Last Admin: 02/05/22 08:14 Dose: 40 mg Glucagon (Glucagon For Inj 1 Mg Vial) 1 mg IM UD PRN; Protocol PRN Reason: Hypoglycemia Protocol Stop: 03/05/22 07:14 Glucose (Glucose 40% Gel 15 Gm Tube) 15 - 30 gm PO UD PRN; Protocol PRN Reason: Hypoglycemia Protocol Stop: 03/05/22 07:14 Glucose (Glucose 10 Tab/Tube) 4 - 8 tab PO UD PRN; Protocol PRN Reason: Hypoglycemia Protocol Stop: 03/05/22 07:14 Diltiazem HCl 125 mg/ Dextrose 125 mls @ 15 mls/hr IV .Q8H20M [facility]; Protocol Stop: 03/06/22 16:29 Last Admin: 02/05/22 12:11 Dose: 15 mg/hr, 15 mls/hr Heparin Sodium/Dextrose (Heparin Sodium/Dextrose) 25,000 units in 500 mls @ 22 mls/hr IV .[id number] [facility]; Protocol Stop: 03/07/22 10:14 Last Admin: 02/05/22 10:53 Dose: 1,100 units/hr, 22 mls/hr Insulin Aspart (Insulin Aspart Per Unit) 0 units SC [facility] Stop: 03/05/22 07:59 Last Admin: 02/05/22 17:07 Dose: 7 units Levalbuterol HCl (Levalbuterol Hcl 0.63 Mg/3 Ml Neb) 0.63 mg NEB Q12R [facility]; Protocol Stop: 03/06/22 18:59 Last Admin: 02/05/22 07:12 Dose: 0.63 mg Metoprolol Tartrate (Metoprolol Tartrate 25 Mg Tab) 25 mg PO BID [facility] Stop: 03/06/22 14:14 Last Admin: 02/04/22 15:35 Dose: 25 mg Miscellaneous (Carbohydrates For Hypoglycemia ) 15 - 30 gm PO UD PRN PRN Reason: Hypoglycemia Treatment Stop: 03/05/22 07:14 Miscellaneous Information (Pharmacy Glycemic Mgmt Consult) 1 each N/A UD PRN; Protocol PRN Reason: Consult Stop: 03/05/22 06:59 Multi-Ingredient Mouthwash/Gargle (First - Mouthwash Blm 119 Ml) 10 ml PO [facility] Stop: 03/04/22 16:29 Last Admin: 02/05/22 17:26 Dose: Not Given Nortriptyline HCl (Nortriptyline Hcl 25 Mg Cap) 25 mg PO HS [facility] Stop: 03/04/22 20:59 Last Admin: 02/04/22 20:25 Dose: 25 mg Ondansetron HCl (Ondansetron Inj 2 Mg/Ml 2 Ml Vial) 4 mg IV Q6H PRN PRN Reason: Nausea Stop: 03/04/22 12:04 Last Admin: 02/05/22 11:40 Dose: 4 mg Polyethylene Glycol (Polyethylene (Miralax) 17 Gm Pack) 17 gm PO DAILY [facility] Stop: 03/05/22 08:59 Last Admin: 02/05/22 09:01 Dose: Not Given Prednisone (Prednisone 10 Mg Tablet) 10 mg PO DAILY [facility] Stop: 03/05/22 08:59 Last Admin: 02/05/22 08:14 Dose: 10 mg Prednisone (Prednisone 50 Mg Tab) 50 mg PO 1800 [facility] Stop: 02/05/22 18:01 Sucralfate (Sucralfate 1 Gm Tab) 1 gm PO ACHS [facility] Stop: 03/04/22 16:29 Last Admin: 02/05/22 17:27 Dose: Not Given Umeclidinium [place] (Umeclidinium [place] 62.5mcg/Blister 7 Puffs/Inhaler) 1 puffs INH DAILY [facility] Stop: 03/05/22 08:59 Last Admin: 02/05/22 08:15 Dose: 1 puffs Vitamin D (Cholecalciferol 1,000 Units 25 Mcg Tab) 1,000 units PO DAILY [facility] Stop: 03/05/22 08:59 Last Admin: 02/05/22 08:14 Dose: 1,000 units PG Care Time/CCT Total # of Minutes Spent Total Time Spent with Patient: Total time spent is greater than 50% in coordination of care (as documented) at patient's floor/unit and/or counseling patient: Coding Level of Care Code 54193 Subseq Hosp Care Lvl 3 Diagnoses Atrial flutter with rapid ventricular response I48.92 Chronic respiratory failure with hypoxia J96.11 Antineoplastic chemotherapy induced pancytopenia D61.810; T45.1X5A
[2022-02-05 17:47] LABS: Anion Gap 6.6 (3-11)
[2022-02-05] MEDS ORDERED: diphenhydrAMINE Capsule 25 MG CAP PO PRN (17:56)
[2022-02-05] MEDS ORDERED: predniSONE 50 MG TAB PO SCH (18:00)
[2022-02-05 18:54] LABS: Partial Thromboplastin Ratio 2.8
[2022-02-05 18:56] LABS: Partial Thromboplastin Time 78.3 Seconds (21.0-31.0)
[2022-02-05] MEDS: dilTIAZem HCl 60 MG TAB PO SCH (20:31)
[2022-02-05] MEDS: FOLIC ACID 1 MG TAB PO SCH (20:32)
[2022-02-05] MEDS: NORTRIPTYLINE HCL 25 MG CAP PO SCH (20:32)
[2022-02-05] MEDS: CELECOXIB 100 MG CAP PO SCH (20:32)
[2022-02-06 01:46] LABS: Partial Thromboplastin Ratio 1.7
[2022-02-06 01:50] LABS: Partial Thromboplastin Time 47.8 Seconds (21.0-31.0)
[2022-02-06] MEDS ORDERED: predniSONE 50 MG TAB PO ONE ×2 (02:00→10:00)
[2022-02-06] MEDS ORDERED: LEVALBUTEROL HCL 0.63 MG/3 ML NEB NEB PRN (04:48)
[2022-02-06 06:25] LABS: BUN Creatinine Ratio 19.7 (10-20); Calcium 8.5 mg/dl (8.5-10.1); Creatinine Clr Calc Pharmacy 67.4 ml/min; Est GFR (African American) 98.1 ml/min; Est GFR (Non-African American) 84.6 ml/min; Potassium 3.8 mmol/L (3.5-5.1)
[2022-02-06 06:26] LABS: Partial Thromboplastin Ratio 1.7
[2022-02-06] MEDS ORDERED: IOVERSOL 350 MG 100mL Prefilled Syringe IV ONE (07:53)
[2022-02-06] MEDS ORDERED: INSULIN HUMAN NPH SC ONE (08:00)
[2022-02-06] MEDS: FIRST - Mouthwash BLM 119 ML PO SCH ×4 (08:12→21:02)
[2022-02-06] MEDS: SUCRALFATE 1 GM TAB PO SCH ×4 (08:13→21:02)
[2022-02-06] MEDS: CHOLECALCIFEROL 1,000 UNITS 25 MCG TAB PO SCH (08:14)
[2022-02-06] MEDS: CYANOCOBALAMIN (B-12) 500 MCG TABLET PO SCH (08:14)
[2022-02-06] MEDS: AMOXICILLIN/CLAVULANATE 875 MG TAB PO SCH ×2 (08:14→17:21)
[2022-02-06] MEDS: dilTIAZem HCl 60 MG TAB PO SCH ×2 (08:15→14:37)
[2022-02-06] MEDS: DOCUSATE SODIUM 100 MG CAP PO SCH ×2 (08:15→21:08)
[2022-02-06] MEDS: FUROSEMIDE 40 MG/4 ML VIAL IV SCH (08:16)
[2022-02-06] MEDS: POLYETHYLENE (MIRALAX) 17 GM PACK PO SCH (08:16)
[2022-02-06] MEDS: FLUTICASONE/VILANTEROL 100/25MCG 14 PUFFS/INHALER INH SCH (08:16)
[2022-02-06] MEDS: UMECLIDINIUM BROMIDE 62.5MCG/BLISTER 7 PUFFS/INHALER INH SCH (08:17)
[2022-02-06] MEDS: predniSONE 10 MG TABLET PO SCH (08:17)
[2022-02-06] MEDS: INSULIN ASPART PER UNIT SC SCH ×4 (08:25→23:02)
[2022-02-06] MEDS: FILGRASTIM 480 MCG/1.6 ML VIAL SC SCH (08:26)
[2022-02-06 08:48] LABS: Albumin Globulin Ratio 1.1 (0.9-2); Albumin Level 2.9 gm/dl (3.4-5.0); Bilirubin,Total 0.5 mg/dl (0.2-1.0); Globulin 2.6 gm/dl (2.5-4.0); Magnesium 1.9 mg/dl (1.7-2.4); Total Protein 5.5 gm/dl (6.0-8.3)
[2022-02-06 08:51] LABS: Hematocrit (blood only) 24.5 % (34.1-44.9); Mean Corpuscular Hemoglobin 29.9 pg (25.0-34.0); Mean Corpuscular Hgb Conc 32.7 g/dL (32.0-36.0); Mean Corpuscular Volume 91.4 fL (80.0-100.0); Mean Platelet Volume 10.7 fL (9.4-12.3); Nucleated RBC # (auto) 0.03 K/uL (0-0); Platelet Count 37 K/uL (130-400); RDW Coefficient of Variation 15.1 % (11.5-14.5); RDW Standard Deviation 47.5 fL (36.4-46.3); Red Blood Count 2.68 M/uL (3.93-5.22)
[2022-02-06] MEDS: HEPARIN SODIUM/DEXTROSE 25,000 UNITS/500 ML BAG IV SCH (09:34)
[2022-02-06 10:08] LABS: ALC (manual) 0.07 K/uL (1.2-3.4); ANC (manual) 0.57 K/uL (1.4-6.5); Dohle Bodies 1+; Lymphocytes # (manual) 0.07 K/uL (1.2-3.4); Lymphocytes % (manual) 7 %; Metamyelocytes # (manual) 0.02 K/uL (0-0); Metamyelocytes % (manual) 2 %; Monocytes % (manual) 30 %; Neutrophils # (manual) 0.57 K/uL (1.4-6.5); Neutrophils % (manual) 57 %; Promyelocytes # (manual) 0.03 K/uL (0-0); Promyelocytes % (manual) 3 %; Toxic Granulation 1+
--- NOTE | 2022-02-06 11:37 | Pharmacy Report ---
Pharmacy Glycemic Short Note 2 - Date of Service February 06, 2022 - Glycemic Short BSG Results (Last 24 hours): 02/05/22 02/05/22 02/06/22 16:11 20:18 05:33 Glucose 182 H POC Glucose 240 H 156 H 02/06/22 02/06/22 08:04 11:19 Glucose POC Glucose 199 H 239 H OUTPATIENT ANTIDIABETIC REGIMEN: * Metformin 850 mg PO BID * HbA1C = 6.8% (12/26/21) ASSESSMENT: 02/06: * Patient received total of 10 units of insulin yesterday, all correctional * Fasting BSG 182 mg/dL - however patient given doses of prednisone overnight for pre-treatments for CT scan this morning. One more dose of prednisone 50 mg to be given this morning (dose /) - will add on NPH 15 units x 1 to help with steroid effects * Continue same CF/CR for now 02/05: * Patient received 10 units of basal NPH insulin yesterday to cover for the Prednisone that she is on. She received 2 units of bolus insulin. * BSGs yesterday were 19-48-05-148 yesterday. * Since BSG was down to 81 mg/dl at dinner time yesterday with 12 units of insulin and blood sugars at or below goal, discontinued basal NPH insulin today. * Food intake has also been lower yesterday. If diet improves, consider adding basal insulin back on. Background 02/03/22: * Ms Ward is a 76 y/o F with a PMH of T2DM on oral medications. * She received Solu-Medrol 125 mg IV x 1 in the ER yesterday AM. Patient received no insulin that day. * Patient started on prednisone 10 mg daily (Home dose). * Fasting this AM was 175 mg/dL. * Will start NPH 20 units (0.25 units/kg). This is for prednisone effects + slightly extra for steroids yesterday. Decrease to 10 units daily on 02/04 * Novolog weight-based stress of 3. PLAN FOR INPATIENT GLYCEMIC CONTROL: * Basal insulin * NPH 15 units x 1 - to cover prednisone pre-treats * Bolus insulin * NovoLog per scale ACHS or Q6hrs while NPO * Goal Range: Low 110 mg/dL - High 140 mg/dL * Correction Factor: 20 mg/dL/unit * Nutritional / Prandial insulin per carb ratio of 1 unit per 7 grams CHO consumed
--- NOTE | 2022-02-06 12:28 | Hematology/Oncology Prog Note ---
Date of Service February 06, 2022 Assessment & Plan (1) Antineoplastic chemotherapy induced pancytopenia: (2) Small cell lung cancer: (3) Atrial flutter with rapid ventricular response: Plan 1. Small cell lung cancer: S/p 3 cycles of carboplatin/etoposide as well as concurrent chemoradiation treatment. She has 1 more cycle of chemotherapy. Will decrease doses of carboplatin/etoposide for cycle 4 of treatment. May have to hold cycle 4 of treatment if clinical condition does not improve. Recommend restaging with CT CAP to rule out progression of disease. 2. Pancytopenia: This is expected as she is currently at chemotherapy kimberly period (day 7-10 after chemo). Will make further dose reductions to cycle 4 of carboplatin/etoposide. Since radiation has been completed, GCSF can be incorporated. Start filgrastim (zarxio) 480mcg daily x 3 days. Will add neulasta to cycle 4 of treatment. Plan to check labs weekly at [facility] after discharge. Transfuse for Hb <7.5, platelet count <20,000 3. Atrial flutter with RVR: Continue with heparin. Transfuse for platelet count less than 20,000 or if bleeding Discussed above plan with patient and her daughter. They were both in agreement. Oncology will continue following while inpatient Admission and Anticipated Discharge Date Admission Date: February 02, 2022 Subjective Denies any new complaints Results & Data ([facility]) Vital Signs (Past 12 Hours) Vital Signs Temp Pulse Resp BP Pulse Ox O2 Del Method O2 Flow Rate 02/06/22 11:07 36.7 C 141 H 20 108/62 96 Nasal Cannula 2 02/06/22 08:00 Nasal Cannula 2 02/06/22 07:16 36.4 C L 110 H 22 125/76 95 Nasal Cannula 2 02/06/22 04:00 36.3 C L 132 H 22 123/71 94 Nasal Cannula 2
--- NOTE | 2022-02-06 13:13 | CT Scan Report ---
CHEST CT WITH CONTRAST CT DOSE: 1462.60 mGy.cm HISTORY: Small cell lung cancer. restaging, eval for progression of disease TECHNIQUE: Multiaxial CT images of the chest were performed following the intravenous administration of contrast. A dose lowering technique was utilized adhering to the principles of ALARA. COMPARISON: Chest CT 12/26/2021. FINDINGS: Please refer to the same day abdomen and pelvis CT for further evaluation of the abdominal structures. No pneumothorax. Small left pleural effusion. Filling defect within the right lower lobe segmental pulmonary artery consistent with a pulmonary embolus. Continued decrease in size of the lef t upper lobe mass/masses. Dominant lobular mass measures 3.1 x 1.3 cm, previously measuring approxima tely 3.5 x 1.8 cm. The left hilar lymphadenopathy has almost completely resolved in the interval. Narda vation of the left hemidiaphragm with low lung volumes. Calcified granuloma within the left upper lob e is again noted. Bibasilar linear densities consistent with subsegmental atelectasis. A 4 mm nodule within the left lower lobe in image 112. Small amount of mucoid material within the trachea. Remainin g central airways are patent. No suspicious lytic are blastic osseous lesions. IMPRESSION: 1. An acute pulmonary embolus within the right middle lobe. 2. Continued decrease in size in the left upper lobe mass/masses and left hilar lymphadenopathy. 3. Small left pleural effusion. 4. Please refer to the same day abdomen and pelvis CT for further evaluation of the abdominal structu res. 5. This report was called/faxed to the referring physician following dictation. ACT 112: Negative or not required by law. Electronically signed by: Sabino Chua M.D. 02/06/2022 1:12 PM
--- NOTE | 2022-02-06 13:54 | CT Scan Report ---
ABDOMEN AND PELVIS CT WITH IV CONTRAST HISTORY: Follow up study in a patient with history of lung cancer; restaging, eval for disease progr ession TECHNIQUE: Multiaxial CT images of the abdomen and pelvis were performed following the IV administrat ion of 94 cc of Optiray, A dose lowering technique was utilized adhering to the principles of ALARA. COMPARISON STUDY: CT chest of same day, PET/CT 11/07/2021, CT abdomen and pelvis 08/15/2021. FINDINGS: Moderate left hemidiaphragmatic elevation. Right middle lobe pulmonary embolus. Extensive c oronary artery calcifications. Mild bibasilar consolidation. No pneumatosis or pneumoperitoneum. The spleen, moderately atrophic pancreas and adrenal glands are unremarkable. Cholecystectomy with ariel linn postsurgical biliary ductal dilation. The liver is otherwise unremarkable. Patency of the hepati c and portal veins. Multifocal cortical scarring of the right kidney. A subcentimeter hypodensity of the inferior pole ri ght kidney is suggestive of a probable cyst. No hydronephrosis. Urinary bladder wall thickening with partial distention. Unremarkable uterus. Pelvic floor relaxation. Extensive atherosclerosis of the ao rta involving at least moderate stenosis at the origin of the celiac trunk. No lymphadenopathy. 1.3 cm fundal diverticulum of the stomach. No bowel obstruction or bowel wall thickening. Colonic div erticulosis. Moderate colonic fecal retention. The appendix is not definitively seen. No ascites or m esenteric inflammation. Unremarkable soft tissues. Degenerative changes of the spine, pelvis and hips . No destructive bone lesions identified. Compression fractures involving the T12 and L2 vertebral chica dies are new from prior. Progressively worsened L1 compression fracture with unchanged 3 mm retropuls ion. The T12 and L2 fractures demonstrate no retropulsion. IMPRESSION: 1. No acute intra-abdominal or intrapelvic abnormality. 2. No lymphadenopathy or evidence of metastatic disease. 3. T12, L1 and L2 compression fractures are new/progressed from the 08/15/2021 exam. 4. Right middle lobe pulmonary embolus. Please refer to the chest CT of same day for additional findi ngs. ACT 112: Negative or not required by law. The above report was generated using voice recognition software. It may contain grammatical, syntax o r spelling errors. Dictated: 02/06/2022 11:50 AM Transcribed: 02/06/2022 1:17 PM Adri [id number] [facility]_[employer] Electronically signed by: Christian Salas M.D. 02/06/2022 1:52 PM
--- NOTE | 2022-02-06 17:12 | Hospitalist Progress Note ---
Date of Service February 06, 2022 Assessment & Plan (1) Atrial flutter with rapid ventricular response: Plan: On 02/02, patient noted worsening of her baseline shortness of breath as well as weakness which prompted her evaluation in the ER. She was found to have heart rates in the 150s, EKG confirming atrial flutter with rapid ventricular response. Cardiology consulted and appreciate recommendations: Recommendation was made for cardioversion; however, patient refuses at this time. Trial of oral flecainide was unsuccessful, therefore this morning patient received ibutilide this was also unsuccessful. Diltiazem gtt. was started; transitioned to PO on 02/05. Patient was also started on oral flecainide for atrial rhythm control. Unfortunately this was unsuccessful, so it was discontinued. Plan for amiodarone gtt. Follow-up with Dr. Dupree tomorrow morning to determine next steps, which could include cardioversion, ablation. Continue heparin gtt (2) Pulmonary embolism: Plan: CTA chest was done on 02/06 for cancer restaging. Incidental PE noted in RLL. - Continue heparin gtt - Transition to oral anticoagulation when able (3) UTI (urinary tract infection): Plan: Dysuria complaints on admission. Urine culture growing greater than 100,000 colony-forming units of gram-positive cocci -> Enterococcus. - Continue Augmentin BID until not neutropenic. (4) Antineoplastic chemotherapy induced pancytopenia: Plan: History of right-sided breast cancer stage IIA, ER+ / HER2 -, diagnosed in 2009. 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 Diagnosed with small cell lung cancer stage IIIb (lymphatic metast asis) in October 2021. Has been going under chemoradiation with carboplatin/etoposide. - On admission found to have pancytopenia (WBC count 0.44, hemoglobin 7.6, platelets 46 today) -> Hgb 8.0 today. - No indication for transfusion at this [place]; however, will transfuse PRBCs if hemoglobin drops less than 7.0. - Hematology/oncology consulted and appreciate recommendations: Recommended restaging with CT chest, abdomen, pelvis to rule out progression of disease. (5) Small cell lung cancer: Plan: See above (6) Compression fracture: Plan: Seen on thoracic spine CT from 10/17. T11 and T12. - Pain control PRN (7) Chronic obstructive pulmonary disease: Plan: Patient with a history of COPD and 50 to 60 pack years of smoking. - Continue Breo Ellipta and Incruse Ellipta, prednisone. - Albuterol as needed. (8) Chronic respiratory failure with hypoxia: Plan: Secondary to COPD and small cell lung cancer. No evidence of pneumonia on chest x-ray. - Continue 2 L nasal cannula with titrate of oxygen as needed. - Incentive spirometer. (9) Diabetes mellitus, type 2: Plan: A1c 6.8% in November 2021. - Continue NPH 10 units daily with sliding scale insulin. (10) Polymyalgia rheumatica: Plan: - Continue home prednisone dose. Plan CODE STATUS: DNR/DNI FEN: Heart healthy DVT prophylaxis: Heparin drip, continue to monitor for sources/signs of bleeding and discontinue/reverse if this occurs Admission and Anticipated Discharge Date Admission Date: February 02, 2022 Subjective Doing well today. She can feel her heart fluttering, but otherwise, is fairly asymptomatic. Physical Exam Constitutional: WD/WN, vitals as above Eyes: EOM intact bilaterally; no conjunctival abnormality ENMT: external ear and nose normal, oropharynx normal Neck: trachea midline, no thyromegaly normal visual inspection Respiratory: normal respiratory effort, lungs clear to auscultation no respiratory distress Cardiovascular: Rate/Rhythm: regular rhythm and + tachycardic Gastrointestinal (Abdomen): Inspection/Auscultation: abdomen normal to inspection; abdomen not distended Musculoskeletal: no cyanosis or clubbing, extremities motor strength 5/5 Skin: no rashes, warm and dry Neurologic: moves all extremities and awake Psychiatric: Orientation: alert, oriented to person and cooperative Results & Data Results & Data ([facility]) Vital Signs (Past 12 Hours) Vital Signs Temp Pulse Resp BP Pulse Ox O2 Del Method O2 Flow Rate 02/06/22 11:07 36.7 C 141 H 20 108/62 96 Nasal Cannula 2 02/06/22 08:00 Nasal Cannula 2 02/06/22 07:16 36.4 C L 110 H 22 125/76 95 Nasal Cannula 2 PG Care Time/CCT Total # of Minutes Spent Total Time Spent with Patient: Total time spent is greater than 50% in coordination of care (as documented) at patient's floor/unit and/or counseling patient: Coding Level of Care Code 18133 Subseq Hosp Care Lvl 3 Diagnoses Atrial flutter with rapid ventricular response I48.92 Pulmonary embolism I26.99 UTI (urinary tract infection) N39.0 Antineoplastic chemotherapy induced pancytopenia D61.810; T45.1X5A Small cell lung cancer C34.90 Compression fracture Chronic obstructive pulmonary disease J44.9 Chronic respiratory failure with hypoxia J96.11 Diabetes mellitus, type 2 E11.9 Polymyalgia rheumatica M35.3
[2022-02-06] MEDS ORDERED: STAT IV Infusion **Titration per Protocol STA (20:44)
[2022-02-06] MEDS ORDERED: AMIODARONE IV BOLUS & DRIP IV STA (20:44)
[2022-02-06] MEDS ORDERED: 0.2 MICRON FILTER SET 1 EACH IV STA (20:44)
[2022-02-06] MEDS ORDERED: AMIODARONE / D5W 150 MG/100 ML BAG IV STA (20:48)
[2022-02-06] MEDS ORDERED: AMIODARONE / D5W 360 MG/200 ML BAG IV ONE (20:57)
[2022-02-06] MEDS: FOLIC ACID 1 MG TAB PO SCH (21:01)
[2022-02-06] MEDS: NORTRIPTYLINE HCL 25 MG CAP PO SCH (21:01)
[2022-02-06] MEDS: CELECOXIB 100 MG CAP PO SCH (22:37)
[2022-02-07] MEDS: AMIODARONE / D5W 360 MG/200 ML BAG IV SCH ×2 (03:52→16:11)
[2022-02-07 06:10] LABS: BUN Creatinine Ratio 21.7 (10-20); Calcium 9.4 mg/dl (8.5-10.1); Creatinine Clr Calc Pharmacy 53.7 ml/min; Est GFR (African American) 78.3 ml/min; Est GFR (Non-African American) 67.5 ml/min; Magnesium 1.9 mg/dl (1.7-2.4); Potassium 3.3 mmol/L (3.5-5.1)
[2022-02-07] MEDS ORDERED: ALENDRONATE SODIUM 70 MG TAB PO SCH (06:30)
[2022-02-07 06:31] LABS: Hematocrit (blood only) 26.1 % (34.1-44.9); Hemoglobin 8.8 g/dl (12.0-16.0); Mean Corpuscular Hemoglobin 30.3 pg (25.0-34.0); Mean Corpuscular Hgb Conc 33.7 g/dL (32.0-36.0); Mean Platelet Volume 11.5 fL (9.4-12.3); Platelet Count 48 K/uL (130-400); White Blood Count 6.71 K/ul (4.8-10.8)
[2022-02-07 06:54] LABS: Partial Thromboplastin Ratio 1.3; Partial Thromboplastin Time 36.2 Seconds (21.0-31.0)
[2022-02-07] MEDS ORDERED: HEPARIN SOD (PORCINE) 1000 UNIT/ML IV ONE (07:00)
[2022-02-07] MEDS: SUCRALFATE 1 GM TAB PO SCH ×4 (07:59→20:23)
[2022-02-07] MEDS: AMOXICILLIN/CLAVULANATE 875 MG TAB PO SCH ×2 (08:01→17:02)
[2022-02-07] MEDS: predniSONE 10 MG TABLET PO SCH (08:01)
[2022-02-07] MEDS: DOCUSATE SODIUM 100 MG CAP PO SCH ×2 (08:02→20:21)
[2022-02-07] MEDS: FUROSEMIDE 40 MG/4 ML VIAL IV SCH (08:02)
[2022-02-07] MEDS: CHOLECALCIFEROL 1,000 UNITS 25 MCG TAB PO SCH (08:02)
[2022-02-07] MEDS: POLYETHYLENE (MIRALAX) 17 GM PACK PO SCH (08:02)
[2022-02-07] MEDS: CYANOCOBALAMIN (B-12) 500 MCG TABLET PO SCH (08:03)
[2022-02-07] MEDS: UMECLIDINIUM BROMIDE 62.5MCG/BLISTER 7 PUFFS/INHALER INH SCH (08:03)
[2022-02-07] MEDS: FIRST - Mouthwash BLM 119 ML PO SCH ×4 (08:04→21:03)
[2022-02-07] MEDS: FLUTICASONE/VILANTEROL 100/25MCG 14 PUFFS/INHALER INH SCH (08:04)
[2022-02-07] MEDS: FILGRASTIM 480 MCG/1.6 ML VIAL SC SCH (08:08)
[2022-02-07] MEDS: INSULIN ASPART PER UNIT SC SCH ×4 (08:15→21:07)
[2022-02-07] MEDS: HEPARIN SODIUM/DEXTROSE 25,000 UNITS/500 ML BAG IV SCH ×2 (09:42→10:04)
--- NOTE | 2022-02-07 13:31 | Hospitalist Progress Note ---
Date of Service February 07, 2022 Assessment & Plan (1) Atrial flutter with rapid ventricular response: Plan: On 02/02, patient noted worsening of her baseline shortness of breath as well as weakness which prompted her evaluation in the ER. She was found to have heart rates in the 150s, EKG confirming atrial flutter with rapid ventricular response. Cardiology consulted and appreciate recommendations: Recommendation was made for cardioversion; however, patient refuses at this time. Trial of oral flecainide was unsuccessful, therefore this morning patient received ibutilide this was also unsuccessful. Diltiazem gtt. was started; transitioned to PO on 02/05. Patient was also started on oral flecainide for atrial rhythm control. Unfortunately this was unsuccessful, so it was discontinued. Continue heparin gtt - Continue amiodarone gtt at this point, though HR still running in the 140-150 range. Plan for ablation if patient and daughter are in agreement. (2) Pulmonary embolism: Plan: CTA chest was done on 02/06 for cancer restaging. Incidental PE noted in RLL. - Continue heparin gtt - Transition to oral anticoagulation when able (3) UTI (urinary tract infection): Plan: Dysuria complaints on admission. Urine culture growing greater than 100,000 colony-forming units of gram-positive cocci -> Enterococcus. - Continue Augmentin BID until not neutropenic. (4) Antineoplastic chemotherapy induced pancytopenia: Plan: History of right-sided breast cancer stage IIA, ER+ / HER2 -, diagnosed in 2009. 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 Diagnosed with small cell lung cancer stage IIIb (lymphatic metastasis) in October 2021. Has been going under chemoradiation with carboplatin/etoposide. - On admission found to have pancytopenia (WBC count 0.44, hemoglobin 7.6, platelets 46 today) -> Hgb 8.0 today. - No indication for transfusion at this time; however, will transfuse PRBCs if hemoglobin drops less than 7.0. - Hematology/oncology consulted and appreciate recommendations: Recommended restaging with CT chest, abdomen, pelvis to rule out progression of disease. CT scans on 02/06 show improvement in disease burden. (5) Small cell lung cancer: Plan: See above (6) Compression fracture: Plan: Seen on thoracic spine CT from 10/17. T11 and T12. - Pain control PRN (7) Chronic obstructive pulmonary disease: Plan: Patient with a history of COPD and 50 to 60 pack years of smoking. - Continue Breo Ellipta and Incruse Ellipta, prednisone. - Albuterol as needed. (8) Chronic respiratory failure with hypoxia: Plan: Secondary to COPD and small cell lung cancer. No evidence of pneumonia on chest x-ray. - Continue 2 L nasal cannula with titrate of oxygen as needed. - Incentive spirometer. (9) Diabetes mellitus, type 2: Plan: A1c 6.8% in November 2021. - Continue NPH 10 units daily with sliding scale insulin. -> Sugars have been 110 - 285 in last 24 hours. Will tighten meal-time coverage as AM sugars have overall been good. (10) Polymyalgia rheumatica: Plan: - Continue home prednisone dose. Plan CODE STATUS: DNR/DNI FEN: Heart healthy DVT prophylaxis: Heparin drip, continue to monitor for sources/signs of bleeding and discontinue/reverse if this occurs Admission and Anticipated Discharge Date Admission Date: February 02, 2022 Subjective More confused and possibly more agitated today. Was seen by Dr. Dupree in the AM, and per report refused ablation, though yesterday she reported she wanted to have it done. Calmer with me. Reports no fevers/chills, chest pain, shortness of breath, abdominal pain, nausea, or vomiting. Physical Exam Constitutional: WD/WN, vitals as above Eyes: EOM intact bilaterally; no conjunctival abnormality ENMT: external ear and nose normal, oropharynx normal Neck: trachea midline, no thyromegaly normal visual inspection Respiratory: normal respiratory effort, lungs clear to auscultation no respiratory distress Cardiovascular: Rate/Rhythm: regular rhythm and + tachycardic Gastrointestinal (Abdomen): Inspection/Auscultation: abdomen normal to inspection; abdomen not distended Musculoskeletal: no cyanosis or clubbing, extremities motor strength 5/5 Skin: no rashes, warm and dry Neurologic: moves all extremities and awake Psychiatric: Orientation: alert, oriented to person and cooperative Results & Data Results & [facility] ([facility]) Vital Signs (Past 12 Hours) Vital Signs Temp Pulse Resp BP Pulse Ox O2 Del Method O2 Flow Rate 02/07/22 11:51 36.3 C L 146 H 18 110/72 91 Nasal Cannula 2 02/07/22 08:00 Nasal Cannula 2 02/07/22 07:39 36.4 C L 145 H 16 118/81 97 Nasal Cannula 2 02/07/22 03:45 Nasal Cannula 2 02/07/22 03:19 36.4 C L 134 H 20 126/72 92 Nasal Cannula 2 PG Care Time/CCT Total # of Minutes Spent Total Time Spent with Patient: Total time spent is greater than 50% in coordination of care (as documented) at patient's floor/unit and/or counseling patient: Coding Level of Care Code 69610 Subseq Hosp Care Lvl 3 Diagnoses Atrial flutter with rapid ventricular response I48.92 Pulmonary embolism I26.99 UTI (urinary tract infection) N39.0 Antineoplastic chemotherapy induced pancytopenia D61.810; T45.1X5A Small cell lung cancer C34.90 Compression fracture Chronic obstructive pulmonary disease J44.9 Chronic respiratory failure with hypoxia J96.11 Diabetes mellitus, type 2 E11.9 Polymyalgia rheumatica M35.3
[2022-02-07 13:37] LABS: Partial Thromboplastin Ratio 1.7
[2022-02-07 13:38] LABS: Partial Thromboplastin Time 47.3 Seconds (21.0-31.0)
--- NOTE | 2022-02-07 14:34 | Electrocardiogram Report ---
Test Reason : Blood Pressure : / mmHG Vent. Rate : 143 BPM Atrial Rate : 286 BPM P-R Int : 000 ms QRS Dur : 146 ms QT Int : 290 ms P-R-T Axes : 226 -56 075 degrees QTc Int : 447 ms Poor data quality, interpretation may be adversely affected Possible Atrial flutter with 2:1 A-V conduction Right bundle branch block Left anterior fascicular block Bifascicular block Left ventricular hypertrophy with repolarization abnormality Abnormal ECG When compared with ECG of 04-FEB-2022 14:19, Atrial flutter has replaced Sinus rhythm Left anterior fascicular block is now Present Confirmed by Chandan Arrieta ([id number]) on 02/07/2022 2:33:28 PM Referred By: REFERRED SELF Confirmed By:Chandan Arrieta
--- NOTE | 2022-02-07 16:42 | Cardiology Progress Note ---
Date of Service February 07, 2022 Assessment & Plan (1) Atrial flutter with rapid ventricular response: (2) Chronic respiratory failure with hypoxia: (3) Antineoplastic chemotherapy induced pancytopenia: Plan ASSESSMENT/PLAN: 1. Atrial flutter: She continues what appears to be a typical right atrial flutter. This is despite nearly 24 hours of amiodarone. An extensive discussion with the patient on 2 occasions today as well as with daughter regarding options for treatment. My recommendation was catheter based therapy. I think this would offer the opportunity for a cure and obviate the need for recurrent admissions due to atrial flutter. LS attractive option would be continuation of amiodarone and cardioversion. The patient was not willing to commit to either at this time. I will tentatively reserve her a spot on the schedule for afternoon. This would likely be a earliest opportunity to perform an ablation. She should continue her Anticoagulation. Platelets improving. 2. Chronic respiratory failure with hypoxia: Uses supplemental oxygen at home. She appears comfortable at this time. We will need to monitor closely or worsening pulmonary edema in the setting of rapid atrial flutter. 3. Pancytopenia: Cell lines improving. Admission and Anticipated Discharge Date Admission Date: February 02, 2022 Subjective I saw the patient this morning and again this afternoon. Overall she claims to be feeling all right. Certainly better than admission. She denies any specific chest pain or breathing trouble but she admits she has not done much activity. She denies orthopnea. No sense of palpitation. Review of Systems Review of Systems: Per HPI Physical Exam Physical Exam: She is alert and oriented x3. Mood affect appear normal. She answered all questions appropriately. HEENT: Sclerae are anicteric. Pupils are equal and reactive to light and accommodation. Extraocular movements were intact. Alopecia noted Neuro: Cranial nerves intact Lungs: Normal respiratory effort. Crackles at the bases of both lung hernandez. Prolonged expiratory phase without expiratory Cardiac: The rhythm was regular but fast. S1 and S2 were normal. There are no murmurs on examination. The PMI was not markedly displaced on palpation. Extremities: no clubbing or cyanosis. Skin: There are no rashes noted on examination today. Results & Data ([facility]) Vital Signs (Past 12 Hours) Vital Signs Temp Pulse Resp BP Pulse Ox O2 Del Method O2 Flow Rate 02/07/22 15:37 36.3 C L 148 H 15 108/73 96 Nasal Cannula 2 02/07/22 11:51 36.3 C L 146 H 18 110/72 91 Nasal Cannula 2 02/07/22 08:00 Nasal Cannula 2 02/07/22 07:39 36.4 C L 145 H 16 118/81 97 Nasal Cannula 2 Laboratory Results Abnormal Lab Results 02/05/22 02/06/22 02/07/22 07:32 20:40 05:25 WBC 6.71 RBC 2.90 L Hgb 8.8 L Hct 26.1 L MCV 90.0 MCH 30.3 MCHC 33.7 RDW Std Deviation 46.0 RDW Coeff of Atul 15.0 H Plt Count 48 L MPV 11.5 Absolute Nucleated RBC 0.20 H Nucleated RBC % (auto) 3.0 Haptoglobin 434 H APTT PTT Ratio Sodium Potassium Chloride Carbon Dioxide Anion Gap BUN Creatinine Est Cr Clr Drug Dosing Est GFR ( Amer) Est GFR (Non-Af Amer) BUN/Creatinine Ratio Glucose POC Glucose 286 H Calcium Magnesium 02/07/22 02/07/22 02/07/22 05:25 05:25 07:18 WBC RBC Hgb Hct MCV MCH MCHC RDW Std Deviation RDW Coeff of Atul Plt Count MPV Absolute Nucleated RBC Nucleated RBC % (auto) Haptoglobin APTT 36.2 H PTT Ratio 1.3 Sodium 136 Potassium 3.3 L Chloride 95 L Carbon Dioxide 33 H Anion Gap 8 BUN 18 Creatinine 0.83 Est Cr Clr Drug Dosing 53.7 Est GFR ( Amer) 78.3 Est GFR (Non-Af Amer) 67.5 BUN/Creatinine Ratio 21.7 H Glucose 109 H POC Glucose 110 H Calcium 9.4 Magnesium 1.9 02/07/22 02/07/22 02/07/22 11:04 12:58 16:15 WBC RBC Hgb Hct MCV MCH MCHC RDW Std Deviation RDW Coeff of Atul Plt Count MPV Absolute Nucleated RBC Nucleated RBC % (auto) Haptoglobin APTT 47.3 H* PTT Ratio 1.7 Sodium Potassium Chloride Carbon Dioxide Anion Gap BUN Creatinine Est Cr Clr Drug Dosing Est GFR ( Amer) Est GFR (Non-Af Amer) BUN/Creatinine Ratio Glucose POC Glucose 160 H 161 H Calcium Magnesium PG Care Time/CCT Total # of Minutes Spent Total Time Spent with Patient: Total time spent is greater than 50% in coordination of care (as documented) at patient's floor/unit and/or counseling patient: Coding Level of Care Code 18998 Subseq Hosp Care Lvl 2 Diagnoses Atrial flutter with rapid ventricular response I48.92 Chronic respiratory failure with hypoxia J96.11 Antineoplastic chemotherapy induced pancytopenia D61.810; T45.1X5A
--- NOTE | 2022-02-07 17:43 | Consultation Report ---
ASSESSMENT: 1. Chemotherapy induced pancytopenia. 2. Small cell lung cancer, status post 3 cycles of carboplatin/etoposide and radiation treatment. 3. Atrial flutter with rapid ventricular response. PLAN: 1. Small cell lung cancer, status post 3 cycles of carboplatin/etoposide as well as concurrent chemo radiation treatment. Recent restaging CT, CAP continues to demonstrate response to treatment with de crease in lung mass as well as lymphadenopathy. Plan is to decrease last cycle. Plan to dose reduce cycle 4 of treatment. 2. Pancytopenia: Improving. We will discontinue filgrastim today. Plan to add Neulasta to cycle 4 of treatment. 3. Atrial flutter with rapid ventricular response: Continue with anticoagulation. Transfuse for pl atelet count less than 20,000 or if bleeding. Oncology will continue following the patient while in the hospital. Please feel free to call if you have any further questions. Job ID: [id number]
[2022-02-07] MEDS: NORTRIPTYLINE HCL 25 MG CAP PO SCH (20:22)
[2022-02-07] MEDS: CELECOXIB 100 MG CAP PO SCH (21:03)
[2022-02-07] MEDS: FOLIC ACID 1 MG TAB PO SCH (21:03)
[2022-02-08] MEDS: AMIODARONE / D5W 360 MG/200 ML BAG IV SCH ×2 (03:43→14:59)
[2022-02-08] MEDS: HEPARIN SODIUM/DEXTROSE 25,000 UNITS/500 ML BAG IV SCH (06:23)
[2022-02-08 06:47] LABS: BUN Creatinine Ratio 18.5 (10-20); Calcium 9.2 mg/dl (8.5-10.1); Creatinine Clr Calc Pharmacy 48.8 ml/min; Est GFR (African American) 69.1 ml/min; Est GFR (Non-African American) 59.6 ml/min; Magnesium 1.7 mg/dl (1.7-2.4)
[2022-02-08 06:48] LABS: Hematocrit (blood only) 23.8 % (34.1-44.9); Hemoglobin 7.9 g/dl (12.0-16.0); Mean Corpuscular Hgb Conc 33.2 g/dL (32.0-36.0); Mean Corpuscular Volume 90.5 fL (80.0-100.0); Mean Platelet Volume 11.8 fL (9.4-12.3); Nucleated RBC # (auto) 0.23 K/uL (0-0); Nucleated RBC % (auto) 2.1 %; Platelet Count 42 K/uL (130-400); RDW Coefficient of Variation 15.4 % (11.5-14.5); RDW Standard Deviation 47.7 fL (36.4-46.3); Red Blood Count 2.63 M/uL (3.93-5.22); White Blood Count 11.18 K/ul (4.8-10.8)
[2022-02-08 06:52] LABS: ALC (manual) 0.22 K/uL (1.2-3.4); ANC (manual) 10.62 K/uL (1.4-6.5); Blast # (manual) 0.22 K/uL (0-0); Blast Cells % (manual) 2 %; Dohle Bodies 1+; Lymphocytes # (manual) 0.22 K/uL (1.2-3.4); Lymphocytes % (manual) 2 %; Monocytes # (manual) 0.22 K/uL (0.24-0.82); Monocytes % (manual) 2 %; Neutrophils # (manual) 10.62 K/uL (1.4-6.5); Neutrophils % (manual) 95 %; Platelet Estimate Decreased (Normal); Polychromasia 1+; Toxic Granulation 1+
[2022-02-08] MEDS: INSULIN ASPART PER UNIT SC SCH ×4 (07:53→19:47)
[2022-02-08] MEDS: FIRST - Mouthwash BLM 119 ML PO SCH ×4 (07:53→19:38)
[2022-02-08] MEDS: MAGNESIUM SULFATE / D5W 1 GM/100 ML BAG IV SCH ×4 (08:04→13:48)
[2022-02-08] MEDS: SUCRALFATE 1 GM TAB PO SCH ×4 (08:05→19:33)
[2022-02-08] MEDS: FLUTICASONE/VILANTEROL 100/25MCG 14 PUFFS/INHALER INH SCH (08:09)
[2022-02-08] MEDS: UMECLIDINIUM BROMIDE 62.5MCG/BLISTER 7 PUFFS/INHALER INH SCH (08:09)
[2022-02-08] MEDS: predniSONE 10 MG TABLET PO SCH (08:10)
[2022-02-08] MEDS: CYANOCOBALAMIN (B-12) 500 MCG TABLET PO SCH (08:10)
[2022-02-08] MEDS: CHOLECALCIFEROL 1,000 UNITS 25 MCG TAB PO SCH (08:10)
[2022-02-08] MEDS: FUROSEMIDE 40 MG/4 ML VIAL IV SCH (08:10)
[2022-02-08] MEDS: POLYETHYLENE (MIRALAX) 17 GM PACK PO SCH (08:11)
[2022-02-08] MEDS: DOCUSATE SODIUM 100 MG CAP PO SCH ×2 (08:11→19:34)
[2022-02-08] MEDS: AMOXICILLIN/CLAVULANATE 875 MG TAB PO SCH ×2 (08:11→16:12)
[2022-02-08] MEDS: POTASSIUM CHLORIDE CRTAB 20 MEQ TABCR PO SCH ×2 (08:35→19:48)
[2022-02-08] MEDS: ONDANSETRON INJ 2 MG/ML 2 ML VIAL IV PRN (10:20)
--- NOTE | 2022-02-08 13:28 | Hospitalist Progress Note ---
Date of Service February 08, 2022 Assessment & Plan (1) Atrial flutter with rapid ventricular response: Plan: On 02/02, patient noted worsening of her baseline shortness of breath as well as weakness which prompted her evaluation in the ER. She was found to have heart rates in the 150s, EKG confirming atrial flutter with rapid ventricular response. Cardiology consulted and appreciate recommendations: Recommendation was made for cardioversion; however, patient refuses at this time. Trial of oral flecainide was unsuccessful, therefore this morning patient received ibutilide this was also unsuccessful. Diltiazem gtt. was started; transitioned to PO on 02/05. Patient was also started on oral flecainide for atrial rhythm control. Unfortunately this was unsuccessful, so it was discontinued. Continue heparin gtt - Continue amiodarone gtt at this point, though HR still running in the 130-150 range. Plan for ablation tomorrow. (2) Pulmonary embolism: Plan: CTA chest was done on 02/06 for cancer restaging. Incidental PE noted in RLL. - Continue heparin gtt - Transition to oral anticoagulation when able (3) UTI (urinary tract infection): Plan: Dysuria complaints on admission. Urine culture growing greater than 100,000 colony-forming units of gram-positive cocci -> Enterococcus. - Continue Augmentin BID until not neutropenic. (4) Antineoplastic chemotherapy induced pancytopenia: Plan: History of right-sided breast cancer stage IIA, ER+ / HER2 -, diagnosed in 2009. 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 Diagnosed with small cell lung cancer stage IIIb (lymphatic metastasis) in October 2021. Has been going under chemoradiation with carboplatin/etoposide. - On admission found to have pancytopenia (WBC count 0.44, hemoglobin 7.6, platelets 46 today) -> WBC normal by 02/08, hgb stable at 7.9, plts up to 42. - No indication for transfusion at this time; however, will transfuse PRBCs if hemoglobin drops less than 7.0. - Hematology/oncology consulted and appreciate recommendations: Recommended restaging with CT chest, abdomen, pelvis to rule out progression of disease. CT scans on 02/06 show improvement in disease burden. (5) Small cell lung cancer: Plan: See above (6) Compression fracture: Plan: Seen on thoracic spine CT from 10/17. T11 and T12. - Pain control PRN (7) Chronic obstructive pulmonary disease: Plan: Patient with a history of COPD and 50 to 60 pack years of smoking. - Continue Breo Ellipta and Incruse Ellipta, prednisone. - Albuterol as needed. (8) Chronic respiratory failure with hypoxia: Plan: Secondary to COPD and small cell lung cancer. No evidence of pneumonia on chest x-ray. - Continue 2 L nasal cannula with titrate of oxygen as needed. - Incentive spirometer. (9) Diabetes mellitus, type 2: Plan: A1c 6.8% in November 2021. - Continue NPH 10 units daily with sliding scale insulin. -> Sugars have been 110 - 160 in last 24 hours. (10) Polymyalgia rheumatica: Plan: - Continue home prednisone dose. Plan CODE STATUS: DNR/DNI FEN: Heart healthy DVT prophylaxis: Heparin drip, continue to monitor for sources/signs of bleeding and discontinue/reverse if this occurs Admission and Anticipated Discharge Date Admission Date: February 02, 2022 Physical Exam Constitutional: WD/WN, vitals as above Eyes: EOM intact bilaterally; no conjunctival abnormality ENMT: external ear and nose normal, oropharynx normal Neck: trachea midline, no thyromegaly normal visual inspection Respiratory: normal respiratory effort, lungs clear to auscultation no respiratory distress Cardiovascular: Rate/Rhythm: regular rhythm and + tachycardic Gastrointestinal (Abdomen): Inspection/Auscultation: abdomen normal to inspection; abdomen not distended Musculoskeletal: no cyanosis or clubbing, extremities motor strength 5/5 Skin: no rashes, warm and dry Neurologic: moves all extremities and awake Psychiatric: Orientation: alert, oriented to person and cooperative Results & Data Results & Data ([facility]) Vital Signs (Past 12 Hours) Vital Signs Temp Pulse Pulse Resp BP Pulse Ox O2 Del Method 02/08/22 09:39 Nasal Cannula 02/08/22 08:00 36.5 C 131 H 18 115/66 97 02/08/22 07:25 147 H O2 Flow Rate 02/08/22 09:39 2 02/08/22 08:00 02/08/22 07:25 PG Care Time/CCT Total # of Minutes Spent Total Time Spent with Patient: Total time spent is greater than 50% in coordination of care (as documented) at patient's floor/unit and/or counseling patient: Coding Level of Care Code 21676 Subseq Hosp Care Lvl 3 Diagnoses Atrial flutter with rapid ventricular response I48.92 Pulmonary embolism I26.99 UTI (urinary tract infection) N39.0 Antineoplastic chemotherapy induced pancytopenia D61.810; T45.1X5A Small cell lung cancer C34.90 Compression fracture Chronic obstructive pulmonary disease J44.9 Chronic respiratory failure with hypoxia J96.11 Diabetes mellitus, type 2 E11.9 Polymyalgia rheumatica M35.3
[2022-02-08] MEDS: CELECOXIB 100 MG CAP PO SCH (19:34)
[2022-02-08] MEDS: NORTRIPTYLINE HCL 25 MG CAP PO SCH (19:35)
[2022-02-08] MEDS: FOLIC ACID 1 MG TAB PO SCH (19:37)
[2022-02-08 19:41] LABS: Partial Thromboplastin Ratio 1.9
[2022-02-08 19:51] LABS: Partial Thromboplastin Time 51.1 Seconds (21.0-31.0)
[2022-02-09] MEDS: HEPARIN SODIUM/DEXTROSE 25,000 UNITS/500 ML BAG IV SCH (04:27)
[2022-02-09 06:42] LABS: Hematocrit (blood only) 23.8 % (34.1-44.9); Hemoglobin 7.8 g/dl (12.0-16.0); Mean Corpuscular Hemoglobin 30.1 pg (25.0-34.0); Mean Corpuscular Hgb Conc 32.8 g/dL (32.0-36.0); Mean Corpuscular Volume 91.9 fL (80.0-100.0); Mean Platelet Volume 11.5 fL (9.4-12.3); Nucleated RBC # (auto) 0.17 K/uL (0-0); Nucleated RBC % (auto) 1.6 %; Platelet Count 48 K/uL (130-400); RDW Standard Deviation 49.9 fL (36.4-46.3); Red Blood Count 2.59 M/uL (3.93-5.22); White Blood Count 10.35 K/ul (4.8-10.8)
[2022-02-09 06:53] LABS: ALC (manual) 0.21 K/uL (1.2-3.4); ANC (manual) 7.76 K/uL (1.4-6.5); Dohle Bodies 2+; Lymphocytes # (manual) 0.21 K/uL (1.2-3.4); Lymphocytes % (manual) 2 %; Metamyelocytes # (manual) 1.35 K/uL (0-0); Metamyelocytes % (manual) 13 %; Monocytes # (manual) 0.52 K/uL (0.24-0.82); Monocytes % (manual) 5 %; Myelocytes # (manual) 0.31 K/uL (0-0); Myelocytes % (manual) 3 %; Neutrophils # (manual) 7.76 K/uL (1.4-6.5); Neutrophils % (manual) 75 %; Promyelocytes # (manual) 0.21 K/uL (0-0); Promyelocytes % (manual) 2 %; Toxic Granulation 3+
[2022-02-09] MEDS: FIRST - Mouthwash BLM 119 ML PO SCH ×4 (07:38→19:17)
[2022-02-09 07:40] LABS: BUN Creatinine Ratio 15.9 (10-20); Calcium 8.8 mg/dl (8.5-10.1); Creatinine Clr Calc Pharmacy 51.1 ml/min; Est GFR (African American) 72.9 ml/min; Est GFR (Non-African American) 62.9 ml/min; Potassium 3.5 mmol/L (3.5-5.1)
[2022-02-09] MEDS: INSULIN ASPART PER UNIT SC SCH ×4 (07:52→19:23)
[2022-02-09] MEDS: SUCRALFATE 1 GM TAB PO SCH ×4 (07:53→19:17)
[2022-02-09] MEDS: FUROSEMIDE 40 MG/4 ML VIAL IV SCH (08:00)
[2022-02-09] MEDS: FLUTICASONE/VILANTEROL 100/25MCG 14 PUFFS/INHALER INH SCH (08:03)
[2022-02-09] MEDS: UMECLIDINIUM BROMIDE 62.5MCG/BLISTER 7 PUFFS/INHALER INH SCH (08:03)
[2022-02-09] MEDS: CHOLECALCIFEROL 1,000 UNITS 25 MCG TAB PO SCH (08:06)
[2022-02-09] MEDS: CYANOCOBALAMIN (B-12) 500 MCG TABLET PO SCH (08:06)
[2022-02-09] MEDS: AMOXICILLIN/CLAVULANATE 875 MG TAB PO SCH (08:06)
[2022-02-09] MEDS: predniSONE 10 MG TABLET PO SCH (08:07)
[2022-02-09] MEDS: POLYETHYLENE (MIRALAX) 17 GM PACK PO SCH (08:08)
[2022-02-09] MEDS: DOCUSATE SODIUM 100 MG CAP PO SCH ×2 (08:08→19:25)
[2022-02-09 08:51] LABS: Partial Thromboplastin Ratio 2.1
[2022-02-09 08:52] LABS: Partial Thromboplastin Time 58.1 Seconds (21.0-31.0)
[2022-02-09 08:54] LABS: Magnesium 2.2 mg/dl (1.7-2.4)
[2022-02-09] MEDS ORDERED: STOP HEPARIN DRIP ORDER ONE (11:15)
--- NOTE | 2022-02-09 12:34 | Pre Anesthesia Assessment ---
Date of Service February 09, 2022 Pre Sedation Assessment Vital Signs Temp Pulse Pulse Resp BP Pulse Ox O2 Del Method 02/09/22 12:27 36.8 C 152 H 22 131/104 H 95 Nasal Cannula 02/09/22 09:42 Nasal Cannula 02/09/22 07:25 36.6 C 122 H 18 131/66 97 02/09/22 03:40 36.5 C 148 H 18 114/71 96 Nasal Cannula 02/08/22 23:17 36.6 C 148 H 16 120/76 90 Nasal Cannula 02/08/22 19:38 37.0 C 150 H 22 103/67 91 Nasal Cannula 02/08/22 21:12 Nasal Cannula 02/08/22 17:42 149 H 02/08/22 16:20 36.9 C 125 H 20 129/79 97 O2 Flow Rate 02/09/22 12:27 2 02/09/22 09:42 2 02/09/22 07:25 02/09/22 03:40 2 02/08/22 23:17 2 02/08/22 19:38 2 02/08/22 21:12 2 02/08/22 17:42 02/08/22 16:20 Cardiovascular + regular rhythm and + tachycardic Respiratory + respiratory effort normal Pre-Sedation Airway Assessment Smoking Status: Former smoker Hx Sleep Apnea: No Hx Difficult Intubation: No Short, Thick Neck: No Thyromental Distance: > or= 3.5 Finger Breadths Oral Cavity: + Dentures Mallampati Class: III ASA: ASA3 NPO Status Date of Last Intake of Fluids: 02/09/22 Time of Last Intake of Fluids: 07:00 Date of Last Intake of Solid Food: 02/08/22 Time of Last Intake of Solid Foods: 21:00 Procedure Planning Contraindications for Sedation: none Current Medications Reviewed: Yes Notes The planned sedation has been discussed with the patient. Informed Consent was obtained. I have identified the patient, determined the appropriateness of sedation and have assessed the patient immediately prior to the procedure. All medicine(s) and interventions are by my order.
[2022-02-09] MEDS ORDERED: MIDAZOLAM HCL 5 MG/ML 1 ML VIAL ONE ×2 (12:36→13:33)
[2022-02-09] MEDS ORDERED: fentaNYL citrate 100 MCG/2 ML VIAL ONE ×2 (12:36→13:33)
[2022-02-09] MEDS ORDERED: HEPARIN (PORCINE) 1000 UNIT/ML 10 ML (CATH LAB USE ONLY) ONE (13:00)
--- NOTE | 2022-02-09 13:02 | Pharmacy Report ---
Pharmacy Glycemic Sign Off Nt - Date of Service February 09, 2022 - Assessment & Plan ASSESSMENT: * Pharmacy was consulted by Dr Steinberg on 02/02/22 for glycemic control and to write orders per [facility] inpatient glycemic control protocol. * Patient has been receiving between 4-9 units total per day of Novolog insulin with meals for adequate glycemic control for the past 48 hrs. No basal needed. * BSGs yesterday were [phone] mg/dl showing they were pretty well controlled. * Regimen has NOT required any adjustments over the past 48hrs to achieve this level of control * Do not anticipate further changes in patient status that would quickly deteriorate glycemic control (i.e. patient to be NPO for upcoming procedure, steroids tapering, starting tube feedings, etc). * Please see recommendations for outpatient antidiabetic regimen below. PLAN FOR INPATIENT GLYCEMIC CONTROL: No changes needed to current regimen. * Continue NovoLog per scale ACHS/Q6hrs while NPO * Goal range = 110 - 140 mg/dl * CF = 20 mg/dl/unit * CR = 1 unit for ever 10 g CHO consumed * Pharmacy is signing off of glycemic consult and will no longer be making adjustments to inpatient regimen. Please feel free to re-consult if needed. Thank you.
--- NOTE | 2022-02-09 14:35 | Electrophysiology Report ---
Date of Service February 09, 2022 Electrophysiology Procedure Electrophysiology Procedure Report procedure performed: Ablation of SVT, complete electrophysiologic testing including pacing from the left atrium via the coronary sinus, arrhythmia induction using programmed stimulation and burst atrial pacing, 3 dimensional electro anatomical mapping Staff surgical supplies sterilizer: Lion Dupree MD Indication: The patient is a 68-year-old woman who presented to the hospital with a rapid heart rate. EKG demonstrated atrial flutter. Despite attempts at medical therapy should continue does have high heart rates and persistent arrhythmia. She has subsequently advised to consider catheter based therapy. Procedure detail: The patient was informed the risks benefits and alternatives to the intended procedure. She understood which proceed. She was taken to the electrophysiology suite in a fasting state. Conscious sedation was administered per protocol. The right femoral area was prepped and draped in usual sterile fashion. This area was anesthetized using subcutaneous menstruation of xylocaine solution. The right femoral vein was subsequently accessed 3 times using modified star technique. Sheaths were placed over guidewires at this site used was a passage of the EP catheters to the respective chambers under fluoroscopic guidance. This included right ventricular, coronary sinus and right atrial mapping catheter. The patient's baseline tachycardia was characte rize. Three-dimensional electroanatomical mapping was also performed. Once the characteristics of the tachycardia were known radiofrequency lesions were placed in a linear fashion through the caval tricuspid isthmus until the tachycardia terminated. Electrophysiologic testing and characterization the patient's baseline conduction system without performed. Attempts at arrhythmia induction were also performed. At conclusion of procedure repeat electro anatomical mapping was performed and order to confirm bidirectional block through the caval tricuspid isthmus. Once confirmed the catheters and sheaths were removed. Hemostasis was achieved at the access site using manual pressure. The patient tolerated procedure well. There were no immediate complications. Findings: Baseline tachycardia the baseline tachycardia cycle length is 198 milliseconds. Three-dimensional electroanatomical mapping revealed nearly entire cycle length accounted for in the right atrium. Concealed entrainment was obtained from the medial aspect of the caval tricuspid isthmus with a short post pacing interval. Manifest entrainment was obtained from the distal portion of the coronary sinus with a l lurdes post pacing interval. ablation: After initial testing the patient was felt to suffer from typical isthmus dependent right atrial flutter. Ablation was carried out using a 8 [place] 3.5 mm contact force sensing irrigated radiofrequency ablation catheter. Lesions were placed in a linear fashion in the power limited both through the caval tricuspid isthmus. This resulted in tachycardia termination. Repeat lesions were placed until bidirectional block could be confirmed to the caval tricuspid isthmus. Post ablation intervals cycle length in the atrium 547 milliseconds cycle length in the ventricle 556 milliseconds PVR interval 172 milliseconds QRS duration 125 milliseconds QT interval 340 milliseconds AH interval 82 milliseconds HV interval 48 milliseconds av Wenckebach occurred at 270 milliseconds av node effective refractory period was less than 250 milliseconds. Subsequent to ablation repeat electro anatomical mapping was performed in order to confirm bidirectional block through the caval tricuspid isthmus. arrhythmia induction subsequent to ablation burst atrial pacing was performed from the medial and lateral portions of the caval tricuspid isthmus. Pacing was performed down to cycle length of 240 milliseconds. No tachycardia was inducible. Impression: Successful creation of bidirectional block through the caval tricuspid isthmus terminating tachycardia and rendering it noninducible Normal baseline conduction intervals with mild baseline tachycardia [facility] Electrophysiology codes EP Procedure 1: Electrophysiology: 32656 EPS and Ablation SVT Procedure 2: Electrophysiology: 07189 3D mapping Procedure 3: Electrophysiology: 86520 Arrhythmia induction Procedure 4: Electrophysiology: 31635-65 Comp EPS w/LA pacing Procedure 5: Electrophysiology: 52036 Folow up EPS w/pacing PG Moderate Sedation Codes Moderate Sedation Codes Procedure 1: Sedation/Anesthesia: 81036 Mod Sedation by the same physician;Init15 Min Child Age 5 & Up Procedure 2: Sedation/Anesthesia: 30658 Mod Sedation by the same physician; Ea [id number] Minutes
--- NOTE | 2022-02-09 14:36 | Post Anesthesia Assessment ---
Date of Service February 09, 2022 Post Sedation Assessment Vital Signs Temp Pulse Pulse Resp BP Pulse Ox O2 Del Method 02/09/22 12:27 36.8 C 152 H 22 131/104 H 95 Nasal Cannula 02/09/22 09:42 Nasal Cannula 02/09/22 07:25 36.6 C 122 H 18 131/66 97 02/09/22 03:40 36.5 C 148 H 18 114/71 96 Nasal Cannula 02/08/22 23:17 36.6 C 148 H 16 120/76 90 Nasal Cannula 02/08/22 19:38 37.0 C 150 H 22 103/67 91 Nasal Cannula 02/08/22 21:12 Nasal Cannula 02/08/22 17:42 149 H 02/08/22 16:20 36.9 C 125 H 20 129/79 97 O2 Flow Rate 02/09/22 12:27 2 02/09/22 09:42 2 02/09/22 07:25 02/09/22 03:40 2 02/08/22 23:17 2 02/08/22 19:38 2 02/08/22 21:12 2 02/08/22 17:42 02/08/22 16:20 Recovery Score Activity: Moves 4 extremities Respiration: Deep Breath/Cough Circulation: +/-20% PreAnes Value Consciousness: Arouseable (by name) Oxygen Saturation: > 92% On Room Air Discharge Sedation Level of Care: Fast Track Phase II Post Sedation Plan On clinical assessment, the patient appears to have tolerated the sedation without complications. Patient is recovering as anticipated. Patient will continue to be monitored by nursing and may be discharged when sedation discharge criteria are met per below protocol. Upon Completions of procedure up to 15 minutes continue every 5 minute vital signs and the P.A.R. score; then discharge to a Phase I or Fast Track to Phase II per the following guidelines: * Discharge Patient to appropriate Phase II area if PAR is 8 or greater or return to pre- procedure baseline. The post - procedure orders will be as directed. * If PAR score is less than 8 or not return to pre-procedure baseline then patient will follow Phase I monitoring till PAR is reached for Phase II. The Phase I may be done in procedure room or may call to secure a Phase I area. * If naloxone or flumazenil are used for reversal, hold in Phase I for continued monitoring from when last reversal dose was given for a minimum of 60 minutes or longer pending the nurse and/or physician discretion of patient condition before discharge to Phase II. Please call the Sedation Physician to re-evaluate and complete post-note for discharge to Phase II area. Do NOT discharge from procedure sedation or Phase 1 until post- sedation evaluation note is complete by procedure /sedation MD Sedation Discharge Instructions to be given to the patient at discharge to home.
--- NOTE | 2022-02-09 14:40 | Hospitalist Progress Note ---
Date of Service February 09, 2022 Assessment & Plan (1) Atrial flutter with rapid ventricular response: Plan: On 02/02, patient noted worsening of her baseline shortness of breath as well as weakness which prompted her evaluation in the ER. She was found to have heart rates in the 150s, EKG confirming atrial flutter with rapid ventricular response. Cardiology consulted and appreciate recommendations: Recommendation was made for cardioversion; however, patient refuses at this time. Trial of oral flecainide was unsuccessful, therefore this morning patient received ibutilide this was also unsuccessful. Diltiazem gtt. was started; transitioned to PO on 02/05. Patient was also started on oral flecainide for atrial rhythm control. Unfortunately this was unsuccessful, so it was discontinued. Continue heparin gtt - Continue amiodarone gtt at this point, though HR still running in the 130-150 range. Plan for ablation today. (2) Pulmonary embolism: Plan: CTA chest was done on 02/06 for cancer restaging. Incidental PE noted in RLL. - Continue heparin gtt - Transition to oral anticoagulation when able (3) UTI (urinary tract infection): Plan: Dysuria complaints on admission. Urine culture growing greater than 100,000 colony-forming units of gram-positive cocci -> Enterococcus. - Continue Augmentin BID until not neutropenic. (4) Antineoplastic chemotherapy induced pancytopenia: Plan: History of right-sided breast cancer stage IIA, ER+ / HER2 -, diagnosed in 2009. 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 Diagnosed with small cell lung cancer stage IIIb (lymphatic metastasis) in October 2021. Has been going under chemoradiation with carboplatin/etoposide. - On admission found to have pancytopenia (WBC count 0.44, hemoglobin 7.6, platelets 46 today) -> WBC normal by 02/08, hgb stable at 7.9, plts up to 42. - No indication for transfusion at this time; however, will transfuse PRBCs if hemoglobin drops less than 7.0. - Hematology/oncology consulted and appreciate recommendations: Recommended r estaging with CT chest, abdomen, pelvis to rule out progression of disease. CT scans on 02/06 show improvement in disease burden. (5) Small cell lung cancer: Plan: See above (6) Compression fracture: Plan: Seen on thoracic spine CT from 06/20. T11 and T12. - Pain control PRN (7) Chronic obstructive pulmonary disease: Plan: Patient with a history of COPD and 50 to 60 pack years of smoking. - Continue Breo Ellipta and Incruse Ellipta, prednisone. - Albuterol as needed. (8) Chronic respiratory failure with hypoxia: Plan: Secondary to COPD and small cell lung cancer. No evidence of pneumonia on chest x-ray. - Continue 2 L nasal cannula with titrate of oxygen as needed. - Incentive spirometer. (9) Diabetes mellitus, type 2: Plan: A1c 6.8% in November 2021. - Continue NPH 10 units daily with sliding scale insulin. -> Sugars have been 110 - 160 in last 24 hours. (10) Polymyalgia rheumatica: Plan: - Continue home prednisone dose. Plan CODE STATUS: DNR/DNI FEN: Heart healthy DVT prophylaxis: Heparin drip, continue to monitor for sources/signs of bleeding and discontinue/reverse if this occurs Admission and Anticipated Discharge Date Admission Date: February 02, 2022 Subjective Feeling fairly well today. No major issues. Reports no fevers/chills, chest pain, shortness of breath, abdominal pain, nausea, or vomiting. Physical Exam Constitutional: WD/WN, vitals as above Eyes: EOM intact bilaterally; no conjunctival abnormality ENMT: external ear and nose normal, oropharynx normal Neck: trachea midline, no thyromegaly normal visual inspection Respiratory: normal respiratory effort, lungs clear to auscultation no respiratory distress Cardiovascular: Rate/Rhythm: regular rhythm and + tachycardic Gastrointestinal (Abdomen): Inspection/Auscultation: abdomen normal to inspection; abdomen not distended Musculoskeletal: no cyanosis or clubbing, extremities motor strength 5/5 Skin: no rashes, warm and dry Neurologic: moves all extremities and awake Psychiatric: Orientation: alert, oriented to person and cooperative Results & Data Results & Data ([facility]) Vital Signs (Past 12 Hours) Vital Signs Temp Pulse Resp BP Pulse Ox O2 Del Method O2 Flow Rate 02/09/22 12:27 36.8 C 152 H 22 131/104 H 95 Nasal Cannula 2 02/09/22 09:42 Nasal Cannula 2 02/09/22 07:25 36.6 C 122 H 18 131/66 97 02/09/22 03:40 36.5 C 148 H 18 114/71 96 Nasal Cannula 2 PG Care Time/CCT Total # of Minutes Spent Total Time Spent with Patient: Total time spent is greater than 50% in coordination of care (as documented) at patient's floor/unit and/or counseling patient: Coding Level of Care Code 48950 Subseq Hosp Care Lvl 2 Diagnoses Atrial flutter with rapid ventricular response I48.92 Pulmonary embolism I26.99 UTI (urinary tract infection) N39.0 Antineoplastic chemotherapy induced pancytopenia D61.810; T45.1X5A Small cell lung cancer C34.90 Compression fracture Chronic obstructive pulmonary disease J44.9 Chronic respiratory failure with hypoxia J96.11 Diabetes mellitus, type 2 E11.9 Polymyalgia rheumatica M35.3
[2022-02-09] MEDS ORDERED: APIXABAN 5 MG TABLET PO SCH (18:00)
[2022-02-09] MEDS: APIXABAN 5 MG TABLET PO SCH (18:20)
[2022-02-09] MEDS: CELECOXIB 100 MG CAP PO SCH (19:24)
[2022-02-09] MEDS: FOLIC ACID 1 MG TAB PO SCH (19:25)
[2022-02-09] MEDS: NORTRIPTYLINE HCL 25 MG CAP PO SCH (19:26)
[2022-02-10] MEDS: APIXABAN 5 MG TABLET PO SCH (05:53)
--- NOTE | 2022-02-10 06:29 | Electrocardiogram Report ---
Test Reason : Blood Pressure : / mmHG Vent. Rate : 107 BPM Atrial Rate : 107 BPM P-R Int : 176 ms QRS Dur : 128 ms QT Int : 358 ms P-R-T Axes : 054 -46 114 degrees QTc Int : 477 ms Sinus tachycardia Left axis deviation Right bundle branch block T wave abnormality, consider anterolateral ischemia Abnormal ECG When compared with ECG of 06-FEB-2022 21:19, Sinus rhythm has replaced Atrial flutter T wave inversion now evident in Lateral leads Confirmed by Kel Moreno ([id number]) on 02/10/2022 6:29:17 AM Referred By: REFERRED SELF Confirmed By:Kel Moreno
[2022-02-10 07:26] VITALS: BP 132/72; TEMP 97.5; O2SAT 97
[2022-02-10] MEDS: INSULIN ASPART PER UNIT SC SCH (08:07)
[2022-02-10] MEDS: FIRST - Mouthwash BLM 119 ML PO SCH (08:08)
[2022-02-10] MEDS: SUCRALFATE 1 GM TAB PO SCH (08:10)
[2022-02-10] MEDS: FUROSEMIDE 40 MG/4 ML VIAL IV SCH (08:28)
[2022-02-10] MEDS: CYANOCOBALAMIN (B-12) 500 MCG TABLET PO SCH (08:28)
[2022-02-10] MEDS: CHOLECALCIFEROL 1,000 UNITS 25 MCG TAB PO SCH (08:28)
[2022-02-10] MEDS: FLUTICASONE/VILANTEROL 100/25MCG 14 PUFFS/INHALER INH SCH (08:28)
[2022-02-10] MEDS: UMECLIDINIUM BROMIDE 62.5MCG/BLISTER 7 PUFFS/INHALER INH SCH (08:29)
[2022-02-10] MEDS: predniSONE 10 MG TABLET PO SCH (08:29)
[2022-02-10] MEDS: POLYETHYLENE (MIRALAX) 17 GM PACK PO SCH (08:30)
[2022-02-10] MEDS: DOCUSATE SODIUM 100 MG CAP PO SCH (08:32)
[2022-02-10 08:41] LABS: Creatinine Clr Calc Pharmacy 62.5 ml/min; Est GFR (African American) 96.2 ml/min; Magnesium 1.9 mg/dl (1.7-2.4); Potassium 3.6 mmol/L (3.5-5.1)
[2022-02-10 08:52] LABS: Hematocrit (blood only) 27.3 % (34.1-44.9); Hemoglobin 8.7 g/dl (12.0-16.0); Mean Corpuscular Hemoglobin 30.2 pg (25.0-34.0); Mean Corpuscular Hgb Conc 31.9 g/dL (32.0-36.0); Mean Corpuscular Volume 94.8 fL (80.0-100.0); Mean Platelet Volume 11.5 fL (9.4-12.3); Nucleated RBC # (auto) 0.09 K/uL (0-0); Nucleated RBC % (auto) 1.2 %; Platelet Count 53 K/uL (130-400); RDW Coefficient of Variation 16.6 % (11.5-14.5); RDW Standard Deviation 52.1 fL (36.4-46.3); Red Blood Count 2.88 M/uL (3.93-5.22); White Blood Count 7.33 K/ul (4.8-10.8)
--- NOTE | 2022-02-10 09:45 | Cardiology Progress Note ---
Date of Service February 10, 2022 Assessment & Plan (1) Atrial flutter with rapid ventricular response: (2) Chronic respiratory failure with hypoxia: (3) Antineoplastic chemotherapy induced pancytopenia: Plan ASSESSMENT/PLAN: 1. Atrial flutter: Status post ablation yesterday. She seems to have had a successful result. No evident complication. She was started on systemic anticoagulation last evening with Eliquis. The indication is both atrial flutter as well as pulmonary embolus. She can continue her diltiazem. I will arrange for follow-up evaluation in our clinic in 1 month. 2. Chronic respiratory failure with hypoxia: Uses supplemental oxygen at home. She appears comfortable at this time. 3. Pancytopenia: Cell lines improving. 4. Tachycardia: She has a sinus tachycardia. She reports a longstanding sinus tachycardia even on home monitoring. Likely related to several factors including her underlying malignancy, chemotherapy, anemia, and COPD. Need to be cognizant of a possible element of pulmonary congestion. Her lung examination is always abnormal. She is on a daily dose of Lasix. From a cardiology standpoint she would be safe for discharge today. She should refrain from lifting anything greater than 10 lb for 1 weeks time. Admission and Anticipated Discharge Date Admission Date: February 02, 2022 Subjective this morning patient claimed he feeling well. She had no specific complaints. No discomfort at the right femoral access site. No sense of palpitation. No chest pain. Breathing at baseline. Review of Systems Review of Systems: Per HPI Physical Exam Physical Exam: alert an oriented. She answers all questions appropriately. Evaluation the right groin area did not reveal any hematoma. No bleeding. Results & Data ([facility]) Vital Signs (Past 12 Hours) Vital Signs Temp Pulse Pulse Resp BP Pulse Ox O2 Del Method 02/10/22 07:40 Nasal Cannula 02/10/22 07:25 36.4 C L 106 H 19 132/72 97 Nasal Cannula 02/10/22 03:00 36.8 C 105 H 18 113/68 93 Nasal Cannula 02/09/22 23:41 109 H 02/09/22 23:00 36.3 C L 108 H 18 129/77 96 Nasal Cannula O2 Flow Rate 02/10/22 07:40 2 02/10/22 07:25 5 02/10/22 03:00 02/09/22 23:41 02/09/22 23:00 Laboratory Results Abnormal Lab Results 02/09/22 02/09/22 02/09/22 11:33 16:15 19:22 WBC RBC Hgb Hct MCV MCH MCHC RDW Std Deviation RDW Coeff of Atul Plt Count MPV Absolute Nucleated RBC Nucleated RBC % (auto) Sodium Potassium Chloride Carbon Dioxide Anion Gap BUN Creatinine Est Cr Clr Drug Dosing Est GFR ( Amer) Est GFR (Non-Af Amer) BUN/Creatinine Ratio Glucose POC Glucose 150 H 134 H 123 H Calcium Magnesium 02/10/22 02/10/22 02/10/22 07:27 08:02 08:02 WBC 7.33 RBC 2.88 L Hgb 8.7 L Hct 27.3 L MCV 94.8 MCH 30.2 MCHC 31.9 L RDW Std Deviation 52.1 H RDW Coeff of Atul 16.6 H Plt Count 53 L MPV 11.5 Absolute Nucleated RBC 0.09 H Nucleated RBC % (auto) 1.2 Sodium 138 Potassium 3.6 Chloride 96 L Carbon Dioxide 37 H Anion Gap 5 BUN 14 Creatinine 0.70 Est Cr Clr Drug Dosing 62.5 Est GFR ( Amer) 96.2 Est GFR (Non-Af Amer) 83.0 BUN/Creatinine Ratio 20.0 Glucose 88 POC Glucose 84 Calcium 9.0 Magnesium 1.9 PG Care Time/CCT Total # of Minutes Spent Total Time Spent with Patient: Total time spent is greater than 50% in coordination of care (as documented) at patient's floor/unit and/or counseling patient: Coding Level of Care Code 28387 Subseq Hosp Care Lvl 2 Diagnoses Atrial flutter with rapid ventricular response I48.92 Chronic respiratory failure with hypoxia J96.11 Antineoplastic chemotherapy induced pancytopenia D61.810; T45.1X5A
[2022-02-10] MEDS ORDERED: HEPARIN 100 UNIT/ML 5ML FLUSH ONE (10:54)
[2022-02-10 11:31] LABS: Albumin Level 3.1 gm/dl (3.4-5.0); Bilirubin Direct 0.2 mg/dl (0-0.2); Bilirubin,Total 0.5 mg/dl (0.2-1.0); Total Protein 5.6 gm/dl (6.0-8.3)
[2022-02-10 11:54] VITALS: PULSE 115
--- NOTE | 2022-02-10 16:49 | Discharge Summary ---
Date of Service February 10, 2022 Admission HPI Per Admitting Provider 76 yo female with PMH described below. Patient has extensive cancer history. Currently receiving chemotherapy and radiation for small cell lung cancer. Patient has one more course of chemotherapy. Patient who normally feels short of breath at exertion (waking around the house), noted worsening SOB yesterday evening which prompted her to come to the ER. She was found to be pancytopenic which prompted a call to the hospitalist service. Patient found to be tachycardic. Principal Diagnosis Atrial flutter s/p ablation Symptomatic anemia Discharge Exam Constitutional WD/WN, vitals as above Eyes EOM intact bilaterally; no conjunctival abnormality ENMT external ear and nose normal, oropharynx normal Neck trachea midline, no thyromegaly normal visual inspection Respiratory normal respiratory effort, lungs clear to auscultation no respiratory distress Cardiovascular Rate/Rhythm: regular rhythm and + tachycardic Gastrointestinal (Abdomen) Inspection/Auscultation: abdomen normal to inspection; abdomen not distended Musculoskeletal no cyanosis or clubbing, extremities motor strength 5/5 Skin no rashes, warm and dry Neurologic moves all extremities and awake Psychiatric Orientation: alert, oriented to person and cooperative Discharge Data Allergies Allergy/AdvReac Type Severity Reaction Status Date / Time castor oil Allergy Severe "TAXANES" Verified 01/23/22 11:47 CAUSE DYSPNEA, RASH, ELEVATED BP docetaxel [From Taxotere] Allergy Severe "TAXANES" Verified 01/23/22 11:47 CAUSE DYSPNEA, RASH, ELEVATED BP paclitaxel Allergy Severe "TAXANES" Verified 01/23/22 11:47 CAUSE DYSPNEA, RASH, ELEVATED BP trimethoprim [From Bactrim] Allergy Severe Anaphylaxis Verified 01/23/22 11:47 Iodinated Contrast Media Allergy Intermediate HIVES/ITCHI Verified 01/23/22 11:47 NG nitrofurantoin Allergy Intermediate CHEST Verified 01/23/22 11:47 PAIN, DYSPNEA Sulfa (Sulfonamide Allergy Intermediate HIVES, Verified 01/23/22 11:47 Antibiotics) ITCHINESS, SHORTNESS OF BREATH phenazopyridine AdvReac Intermediate N/V Verified 01/23/22 11:47 codeine AdvReac COLD Verified 01/23/22 11:47 SWEAT, THINGS START SPINNING, NAUSEA Consultations 02/02/22 11:44 ED Decision to Admit Stat 02/02/22 12:05 Consult Cardiology Routine 02/04/22 18:35 Consult Hematology Routine Procedures Performed Operation Date: 02/09/22 11:30 Actual Procedures p EPS + Ablation for SVT Flutter - Lion Dupree MD Ordered Studies 02/03/22 11:28 US ankle brachial index [US ankle/brachial index ltd] Routine 02/05/22 16:07 CT Abd and Pelvis [CT abd pelvis IV con only] Routine CT chest with contrast [CT chest diagnostic w con] Routine 02/09/22 07:15 EP Lab Images for PACS ONCE Hospital Course (1) Atrial flutter with rapid ventricular response: On 02/02, patient noted worsening of her baseline shortness of breath as well as weakness which prompted her evaluation in the ER. She was found to have heart rates in the 150s, EKG confirming atrial flutter with rapid ventricular response. Cardiology consulted and appreciate recommendations: Trial of oral flecainide was unsuccessful, therefore this morning patient received ibutilide this was also unsuccessful. Diltiazem gtt. was started; transitioned to PO on 02/05. Patient was also started on oral flecainide for atrial rhythm control. Unf ortunately this was unsuccessful, so it was discontinued. Attempted amiodarone gtt without any change in HR. In the end, underwent aflutter ablation with Dr. Indra Dupree on 02/09 with r esolution of her atrial flutter. Discharged on apixaban and off diltiazem. F/u with Dr. Dupree per cardiology office. (2) Pulmonary embolism: CTA chest was done on 02/06/2022 for cancer restaging. Incidental PE noted in RLL. - Continued heparin gtt while inpatient. - Apixaban on discharge. (3) UTI (urinary tract infection): Dysuria complaints on admission. Urine culture growing greater than 100,000 colony-forming units of gram-positive cocci -> Enterococcus. - Continued Augmentin BID until not neutropenic. Done by discharge. (4) Antineoplastic chemotherapy induced pancytopenia: History of right-sided breast cancer stage IIA, ER+ / HER2 -, diagnosed in 2009. 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 Diagnosed with small cell lung cancer stage IIIb (lymphatic metastasis) in October 2021. Has been going under chemoradiation with carboplatin/etoposide. - On admission found to have pancytopenia (WBC count 0.44, hemoglobin 7.6, platelets 46 today) -> WBC normal by 02/08, hgb stable at 7.9, plts up to 42. - No indication for transfusion at this time; however, will transfuse PRBCs if hemoglobin drops less than 7.0. - Hematology/oncology consulted and appreciate recommendations: Recommended restaging with CT chest, abdomen, pelvis to rule out progression of disease. CT scans on 02/06 show improvement in disease burden. (5) Small cell lung cancer: See above (6) Compression fracture: Seen on thoracic spine CT from 10/17. T11 and T12. - Pain control PRN (7) Chronic obstructive pulmonary disease: Patient with a history of COPD and 50 to 60 pack years of smoking. - Continue Breo Ellipta and Incruse Ellipta, prednisone. - Albuterol as needed. (8) Chronic respiratory failure with hypoxia: Secondary to COPD and small cell lung cancer. No evidence of pneumonia on chest x-ray. - Continue 2 L nasal cannula with titrate of oxygen as needed. - Incentive spirometer. (9) Diabetes mellitus, type 2: A1c 6.8% in November 2021. - Continued NPH 10 units daily with sliding scale insulin. -> Sugars have been 110 - 160 in last 24 hours. - Resume home regimen on discharge. (10) Polymyalgia rheumatica: - Continue home prednisone dose. Plan CODE STATUS: DNR/DNI FEN: Heart healthy Total Time Total Time Spent Total Time Spent (In Minutes): 45 Discharge Plan Discharge Items Patient Disposition: Home - Home Health Services Reason For Visit: SYMPTOMATIC ANEMIA Discharge Diagnosis: Symptomatic anemia Atrial flutter requiring ablation Activity: Resume your previous activity Lifting: No more than 10 pounds Lifting Comment: No lifting more than 10 lbs until cleared by Dr. Dupree after your procedur Non-emergency contact: Primary Care Provider, Community Health Nurse Supervisor and Oncologist Call non-emergency contact if: your symptoms worsen Follow-up/Referrals: Pro,Chandan Cassidy MD [Primary Care Provider] - 02/16/22 11:00 am ([facility]) Diet: Heart Healthy Addtl Attending Provider Instructions: Ms. Ward, You were admitted to the hospital with anemia. While in the hospital, you also had atrial flutter which is when your heart rate goes too fast. This was incredibly hard to control because it would not slow down despite medications. Luckily, Dr. Dupree was able to do a procedure that stopped the rhythm and now you are in a more normal rate. Please, follow up with Dr. Dupree in 2 weeks. In the meantime, please follow up with your oncology team about your last chemotherapy treatment. I would like you to stop your Celebrex if you can do without it. It will give you a higher chance of having stomach bleeding. Continue to take your acid- blocking medication (omeprazole). You do not need the diltiazem (Cardizem) anymore because of your procedure. Pending Studies at Discharge: No Stand-Alone Forms: My [facility] Picitup, Smoking Cessation Medications and DC Order Prescriptions: New Eliquis 5 mg Tablet 5 mg PO BID Qty: 60 0RF Continued mecobalamin (vitamin B12) 1,000 mcg tablet,disintegrating 1,000 mcg sublingual DAILY Rx Instructions: place tablet under tongue and allow to dissolve for at least30 secs before swallowing cholecalciferol (vitamin D3) 25 mcg (1,000 unit) capsule 25 mcg PO DAILY furosemide [Lasix] 20 mg tablet 40 mg PO QAM metformin 850 mg tablet 850 mg PO BID nortriptyline 25 mg capsule 25 mg PO HS Qty: 90 3RF alendronate [Fosamax] 70 mg tablet 70 mg PO WEEKLY Qty: 4 3RF Rx Instructions: Take q tues folic acid 1 mg tablet 1 mg PO QPM Qty: 30 3RF ipratropium-albuterol 0.5 mg-3 mg(2.5 mg base)/3 mL solution for nebulization 3 ml inhalation Q6H PRN (Reason: wheezing) Qty: 360 1RF (DME) nebulizers [facility] See Rx Instructions .Route Qty: 1 0RF Rx Instructions: nebulizer and nebulizer kits/supplies ANNALISA-99 Incruse Ellipta 62.5 mcg/actuation blister with device 1 inh inhalation DAILY Qty: 30 2RF fluticasone furoate-vilanterol [Breo Ellipta] 100-25 mcg/dose blister with device 1 inh inhalation DAILY Qty: 60 2RF omeprazole 20 mg capsule,delayed release(DR/EC) 20 mg PO QPM Qty: 90 2RF Magic Mouthwash 300 mL mouthwash 10 ml mucous membrane ACHS Qty: 300 5RF Rx Instructions: Benadryl 12.5 mg/5 mL oral elixir; Maalox 200 mg-200 mg-20 mg/5 mL oral suspension; Xylocaine Viscous 2 % mucosal solution;[Generic substitution ok] 1:1:1 compound Per 300 mL prednisone 10 mg tablet See Rx Instructions .ROUTE .COMPLEX Qty: 30 0RF Rx Instructions: 10 mg three times a day for 2 days, then 10mg twice a day for 2 days, then 10mg daily as before sucralfate [Carafate] 1 gram tablet 1 g PO ACHS Rx Instructions: dissolve in 1 teaspoon water. swallow before meals and at bed time. albuterol sulfate [Ventolin HFA] 90 mcg/actuation HFA aerosol inhaler 2 puff INH 6XD PRN (Reason: Wheezing) Label Comments: "every once in a while" polyethylene glycol 3350 [Miralax] 17 gram/dose powder 17 g PO DAILY Qty: 238 0RF docusate sodium [Colace] 100 mg capsule 100 mg PO BID Qty: 60 0RF Discontinued celecoxib [Celebrex] 100 mg capsule 100 mg PO QPM Qty: 30 5RF diltiazem HCl 240 mg Capsule,Extended Release 24hr 240 mg PO QAM Qty: 30 0RF Discharge Orders: Discharge Order (Routine); Ordered 02/10/22 Ordered By: Fermín Alegre Admission Data Admit Date/Time: 02/02/22 12:05 Attending Provider: Fermín Alegre Admit Provider: Ace Steinberg Primary Care Provider: Chandan Bro Other Providers: Ace Steinberg ; Lion Dupree ; Katherine Ceja Other Interventions: Discharge Summary Assessment (RN) Last Done: 02/10/22 11:49 Coding Level of Care Code D/C DAY MANAGEMENT >30 MINS Diagnoses Atrial flutter with rapid ventricular response I48.92 Pulmonary embolism I26.99 UTI (urinary tract infection) N39.0 Antineoplastic chemotherapy induced pancytopenia D61.810; T45.1X5A Small cell lung cancer C34.90 Compression fracture Chronic obstructive pulmonary disease J44.9 Chronic respiratory failure with hypoxia J96.11 Diabetes mellitus, type 2 E11.9 Polymyalgia rheumatica M35.3
== END 2022-02-10 14:16 | disposition home or self-care (01) | DRG 273 ==
LOC: ED 08:18 → 2S 12:05 → SUATTDRO 12:05 → 2S 12:29
DX: D61.810 Antineoplastic chemotherapy induced pancytopenia; Z91.041 Radiographic dye allergy status; Z88.2 Allergy status to sulfonamides; I48.3 Typical atrial flutter; Z85.3 Personal history of malignant neoplasm of breast; Z92.3 Personal history of irradiation; Z88.5 Allergy status to narcotic agent; M48.54XA Collapsed vertebra, not elsewhere classified, thoracic region, initial encounter for fracture; Z87.891 Personal history of nicotine dependence; B95.2 Enterococcus as the cause of diseases classified elsewhere; I24.8 Other forms of acute ischemic heart disease; Z79.52 Long term (current) use of systemic steroids; I45.10 Unspecified right bundle-branch block; M35.3 Polymyalgia rheumatica; J96.11 Chronic respiratory failure with hypoxia; E11.9 Type 2 diabetes mellitus without complications; J44.9 Chronic obstructive pulmonary disease, unspecified; N39.0 Urinary tract infection, site not specified; C34.90 Malignant neoplasm of unspecified part of unspecified bronchus or lung; I26.99 Other pulmonary embolism without acute cor pulmonale

== ENCOUNTER 2022-03-18 09:42 | Inpatient (IN) ==
--- NOTE | 2022-03-18 09:59 | Emergency Department Note ---
Impression & Plan Acute confusion, Hypomagnesemia, Anemia, Tachycardia, Acute dehydration ED Provider Note NAME: MEG HOBBS AGE: 76 SEX: F : 1945 ARRIVES VIA: Ambulance INFORMANT: [Patient][nursing] ED PROVIDER(S): [Zaki Alba MD] CHIEF COMPLAINT: Urinary symptoms, reported confusion HISTORY OF PRESENT ILLNESS: The patient is a 76-year-old female who was recently diagnosed with a UTI. She was placed on Cipro which, according to her urine culture, should be effective. She believes she has been on Cipro for several days. The culture was run on the , 5 days ago. The patient did have urinary burning, that has cleared up. She complains of feeling thirsty. She has some back pain but, this is baseline. There has been no fever, no shortness of breath, no cough or cold or congestion. No vomiting. As per the home health staff, the patient was a bit confused this morning, the decision was made to send her to the ER for evaluation. Of note, the patient does have a history of lung cancer, she believes her last chemotherapy was about a month or so ago. REVIEW OF SYSTEMS: See HPI for pertinent positives and negatives. A total of ten systems were reviewed and were otherwise negative. PMHx/PSHx: See Below SOCIAL HISTORY: See Below. PHYSICAL EXAM: GENERAL: Patient is in no acute distress. HEENT: No acute trauma, normocephalic atraumatic, mucous membranes markedly dry, no nasal congestion, no scleral icterus. No thrush seen. NECK: No stridor, no adenopathy, no meningismus, trachea is midline. LUNGS: Clear to auscultation bilaterally when listening anterior. No wheezing or rhonchi, no respiratory distress. HEART: Tachycardic with a regular rhythm, no obvious murmurs. ABDOMEN: Soft, nontender, bowel sounds positive, no peritonitis. EXTREMITIES: No cyanosis or edema, full range of motion of all the joints without pain or difficulty, no signs for acute trauma. NEUROLOGIC: Oriented x 3, no acute motor or sensory deficits, no focal weakness. No confusion noted. SKIN: No rash, no jaundice, no diaphoresis. Rectal: Brown stool, trace heme positive. DIFFERENTIAL DIAGNOSIS: Sepsis, UTI, pneumonia, metabolic abnormality, failed outpatient management, dehydration, urinary obstruction, COVID-19, RSV, influenza, electrolyte abnormalities, cardiac sources, cellulitis, bacteremia, intracerebral event, toxicologic etiology, neurologic event, as well as other pathologies. EMERGENCY DEPARTMENT COURSE/PROCEDURES: ECG: Indication was tachycardia. The ECG shows a sinus tachycardia with a rate of 112. There is an incomplete right bundle branch block. There is poor R wave progression across the precordial leads. Potential LVH is noted. No ST elevation, no PVCs. The QTc is 485. Compared to an ECG from 09 February 2022, I see no significant change. Continuous Cardiac Monitoring: An order was placed for continuous cardiac monitoring. The monitor shows a rate of 121 with sinus tachycardia. MEDICAL DECISION MAKING: There is no leukocytosis. The patient is anemic however, she has had issues with anemia in the past. Rectal exam was performed and the stool was brown, trace heme positive. There was a normal platelet count. Coags are currently pending. Renal panel testing showed a mildly low sodium and a low magnesium. No renal failure. No concerning liver enzyme elevation. The patient appeared to be in a euthyroid state. ECG shows a sinus tachycardia, no ischemia. Cardiac enzyme testing x1 is not consistent with acute cardiac injury. Urinalysis results are currently pending. Urine culture from the , 5 days ago, showed Citrobacter that was resistant to ceftriaxone but sensitive to fluoroquinolones. RSV, influenza and COVID test returned negative. Chest x-ray shows some chronic change, no pneumonia. Abdominal and pelvis CT does not show any urinary obstruction, no acute surgical pathology. The patient received IV cefepime as antibiotic coverage. Cefepime should work given the recent urine culture results. She received 1.5 L of IV saline, she was given oral and IV magnesium. I do think the patient would benefit from a hospital stay. She is quite dehydrated. The confusion earlier may have been from the dehydration, the infection or possibly even the Cipro. She currently is not showing any evidence of confusion. I did speak with the patient and her family, the daughter was at bedside. I spoke with case management, the on-call hospitalist was consulted. Past Med/Surg History Medical History Asthma (04/25/12) Stable and controlled Chronic dyspnea Chronic obstructive pulmonary disease STABLE- CONTROLLED- ALBUTEROL USE THIS AM COPD (chronic obstructive pulmonary disease) COPD exacerbation Diabetes mellitus, type 2 NIDDM- WELL CONTROLLED AND STABLE Endometrial thickening on ultrasound Ex-smoker GERD (gastroesophageal reflux disease) Hearing deficit NO AIDS Hemoptysis History of breast cancer RIGHT S/P LUMPECTOMY/CHEMO/RADATION (2009)- STABLE AT THIS TIME History of diverticulitis History of liver disease 03/2019 [facility] FOR LIVER ABSCESS- GIVEN ABXS X MONTHS- FOLLOWING WITH [facility] FOR MONITORING -RECENT CT SCAN 06/16/19- SHOWS ABSCESS TO BE DECREASED TO 3.5CM (SURGEON IS AWARE) Hx of bladder cancer HAD BCG INSTILLATION - DX: 2012 Left rib fracture (2017) Liver abscess Lower extremity edema Malignant neoplasm of lung Bronch with biopsy on 11/15/21 Migraine HX Osteoporosis Osteoporosis Pancytopenia due to antineoplastic chemotherapy PMR (polymyalgia rheumatica) PMR (polymyalgia rheumatica) CHRONIC Port-A-Cath in place Small cell lung cancer Tobacco abuse Tremor RIGHT HAND Ureteral tumor Vertebral fracture LUMBAR AND THORACIC Surgical History H/O cystoscopy History of appendectomy History of arthroscopy History of breast biopsy History of bronchoscopy History of cholecystectomy History of colonoscopy History of elbow surgery History of lumpectomy of right breast History of surgery History of surgery Nausea and vomiting after administration of anesthetic agent Family History Other Adopted Family history unknown Social History Smoking Status: Former smoker Tobacco Type: Cigarettes Cigarettes Per Day: 6; Second Hand Exposure: Yes; Hx Alcohol Use: No Hx Substance Use: No Preferred Language: Malay Communication Ability: Effective Visual Impairment: No Limitations Hearing Ability: Normal Bread Icer Required: No Beliefs That Will Affect Care: None marital status: Single Current Living Situation: Other Current Living Situation Comment: lives with roommate current occupational status: retired Feels Safe at Home: Yes Childhood Exposure to Second-Hand Smoke: Yes caffeine: No during the past year weight has: remained stable Dental Care, Regularly: Yes Physical Activity Frequency: 1-2 Times per Week Seatbelt Use: always Sunscreen Use: Yes Assistive Devices: Oxygen - Continuous and Walker Allergies Allergies Allergy/AdvReac Type Severity Reaction Status Date / Time castor oil Allergy Severe "TAXANES" Verified 03/18/22 10:04 CAUSE DYSPNEA, RASH, ELEVATED BP docetaxel [From Taxotere] Allergy Severe "TAXANES" Verified 03/18/22 10:04 CAUSE DYSPNEA, RASH, ELEVATED BP paclitaxel Allergy Severe "TAXANES" Verified 03/18/22 10:04 CAUSE DYSPNEA, RASH, ELEVATED BP trimethoprim [From Bactrim] Allergy Severe Anaphylaxis Verified 03/18/22 10:04 Iodinated Contrast Media Allergy Intermediate HIVES/ITCHI Verified 03/18/22 10:04 NG nitrofurantoin Allergy Intermediate CHEST Verified 03/18/22 10:04 PAIN, DYSPNEA Sulfa (Sulfonamide Allergy Intermediate HIVES, Verified 03/18/22 10:04 Antibiotics) ITCHINESS, SHORTNESS OF BREATH phenazopyridine AdvReac Intermediate N/V Verified 03/18/22 10:04 codeine AdvReac COLD Verified 03/18/22 10:04 SWEAT, THINGS START SPINNING, NAUSEA Home Meds Home Medications Medication Instructions Recorded Confirmed metformin 850 mg tablet 850 mg PO BID 07/05/21 03/18/22 cholecalciferol (vitamin D3) 25 25 mcg PO DAILY 12/01/21 03/18/22 mcg (1,000 unit) capsule mecobalamin (vitamin B12) 1,000 1,000 mcg sublingual DAILY 12/01/21 03/18/22 mcg disintegrating tablet,sublingual furosemide 20 mg tablet (Lasix) 40 mg PO QAM 01/16/22 03/18/22 ciprofloxacin HCl 500 mg tablet 500 mg PO BID 03/18/22 03/18/22 olanzapine 2.5 mg tablet 2.5 mg PO HS 03/18/22 03/18/22 omeprazole 40 mg capsule,delayed 40 mg PO QPM 03/18/22 03/18/22 release potassium chloride 20 mEq 20 meq PO BID 03/18/22 03/18/22 tablet,extended release(part/cryst) (Klor-Con M) prednisone 10 mg tablet 10 mg PO DAILY 03/18/22 03/18/22 Previous Rx's Medication Instructions Recorded nortriptyline 25 mg capsule 25 mg PO HS #90 caps 11/04/21 alendronate 70 mg tablet (Fosamax) 70 mg PO WEEKLY #4 tabs 11/21/21 folic acid 1 mg tablet 1 mg PO QPM #30 tabs 11/21/21 nebulizers #1 ea 12/05/21 fluticasone furoate 100 1 inh inhalation DAILY #60 ea 12/07/21 mcg-vilanterol 25 mcg/dose inhalation powder (Breo Ellipta) umeclidinium 62.5 mcg/actuation 1 inh inhalation DAILY #30 ea 12/07/21 blister powder for inhalation (Incruse Ellipta) docusate sodium 100 mg capsule 100 mg PO BID #60 caps 01/22/22 (Colace) polyethylene glycol 3350 17 17 g PO DAILY #238 grams 01/22/22 gram/dose oral powder (Miralax) apixaban 5 mg tablet (Eliquis) 5 mg PO BID #60 tabs 02/10/22 ipratropium 0.5 mg-albuterol 3 mg 3 ml inhalation Q6H PRN wheezing 03/14/22 (2.5 mg base)/3 mL nebulization #360 mL soln Results & Data (ED) Vital Signs Vital Signs - 24 hr 03/18/22 09:49 03/18/22 09:54 Temperature 36.3 C L Temperature Source Oral Pulse Rate 117 H 112 H Pulse Rhythm Regular Regular Pulse Strength Normal Respiratory Rate 20 Respiratory Effort / Characteristics Non-Labored Spontaneous Respiratory Depth Normal Respiratory Pattern Regular Blood Pressure 119/74 Blood Pressure Mean 89 Blood Pressure Position Sitting Pulse Oximetry 94 98 Oxygen Delivery Method Nasal Cannula Nasal Cannula Oxygen Flow Rate 2 2 Sepsis Recent Fever Within 48 Hours No Sepsis New/Unexplained Change in Mental Status No Sepsis Action Taken by Nursing No Action Required Home Medications Current Medication List: was personally reviewed by me Laboratory Data Attestation: I reviewed the patient's lab results. Result diagrams: 03/18/22 10:10 03/18/22 10:10 Lab Results 03/18/22 03/18/22 03/18/22 Range/Units 10:10 10:10 10:10 WBC 10.69 (4.8-10.8) K/ul RBC 3.05 L (3.93-5.22) M/uL Hgb 9.5 L (12.0-16.0) g/dl Hct 29.2 L (34.1-44.9) % MCV 95.7 (80.0-100.0) fL MCH 31.1 (25.0-34.0) pg MCHC 32.5 (32.0-36.0) g/dL RDW Std Deviation 64.7 H (36.4-46.3) fL RDW Coeff of Atul 18.6 H (11.5-14.5) % Plt Count 272 (130-400) K/uL MPV 9.2 L (9.4-12.3) fL Immature Gran % (Auto) 2.7 % Neut % (Auto) 79.9 % Lymph % (Auto) 5.3 % [place] % (Auto) 11.1 % Eos % (Auto) 0.6 % Baso % (Auto) 0.4 % Neut # (Auto) 8.54 H (1.4-6.5) K/uL Lymph # (Auto) 0.57 L (1.2-3.4) K/uL [place] # (Auto) 1.19 H (0.24-0.82) K/uL Eos # (Auto) 0.06 (0-0.50) K/uL Baso # (Auto) 0.04 (0-0.2) K/uL Immature Gran # (Auto) 0.29 H (0.00-0.02) K/uL Sodium 134 L (136-145) mmol/L Potassium 4.2 (3.5-5.1) mmol/L Chloride 92 L (98-107) mmol/L Carbon Dioxide 29 (21-32) mmol/L Anion Gap 13 H (3-11) BUN 13 (6-23) mg/dl Creatinine 1.18 (0.6-1.2) mg/dl Est Cr Clr Drug Dosing 36.1 ml/min Est GFR ( Amer) 51.2 ml/min Est GFR (Non-Af Amer) 44.1 ml/min BUN/Creatinine Ratio 11.0 (10-20) Glucose 72 (70-99(Fasting)) mg/dl Lactate 1.1 (0.4-2.0) mmol/L Calcium 8.8 (8.5-10.1) mg/dl Magnesium 1.5 L (1.7-2.4) mg/dl Total Bilirubin 0.5 (0.2-1.0) mg/dl AST 12 L (13-39) U/L ALT 7 (7-52) U/L Alkaline Phosphatase 103 (34-104) U/L Troponin I High Sens 13.2 D (0-14) pg/ml Total Protein 6.2 (6.0-8.3) gm/dl Albumin 3.0 L (3.4-5.0) gm/dl Globulin 3.2 (2.5-4.0) gm/dl Albumin/Globulin Ratio 0.9 (0.9-2) TSH (0.300-4.500) uIu/ml SARS-CoV-2 (PCR) (Negative) Influenza Type A (PCR) (Neg) Influenza Type B (PCR) (Neg) RSV (RT-PCR) (Neg) 03/18/22 03/18/22 Range/Units 10:10 10:30 WBC (4.8-10.8) K/ul RBC (3.93-5.22) M/uL Hgb (12.0-16.0) g/dl Hct (34.1-44.9) % MCV (80.0-100.0) fL MCH (25.0-34.0) pg MCHC (32.0-36.0) g/dL RDW Std Deviation (36.4-46.3) fL RDW Coeff of Atul (11.5-14.5) % Plt Count (130-400) K/uL MPV (9.4-12.3) fL Immature Gran % (Auto) % Neut % (Auto) % Lymph % (Auto) % [place] % (Auto) % Eos % (Auto) % Baso % (Auto) % Neut # (Auto) (1.4-6.5) K/uL Lymph # (Auto) (1.2-3.4) K/uL [place] # (Auto) (0.24-0.82) K/uL Eos # (Auto) (0-0.50) K/uL Baso # (Auto) (0-0.2) K/uL Immature Gran # (Auto) (0.00-0.02) K/uL Sodium (136-145) mmol/L Potassium (3.5-5.1) mmol/L Chloride (98-107) mmol/L Carbon Dioxide (21-32) mmol/L Anion Gap (3-11) BUN (6-23) mg/dl Creatinine (0.6-1.2) mg/dl Est Cr Clr Drug Dosing ml/min Est GFR ( Amer) ml/min Est GFR (Non-Af Amer) ml/min BUN/Creatinine Ratio (10-20) Glucose (70-99(Fasting)) mg/dl Lactate (0.4-2.0) mmol/L Calcium (8.5-10.1) mg/dl Magnesium (1.7-2.4) mg/dl Total Bilirubin (0.2-1.0) mg/dl AST (13-39) U/L ALT (7-52) U/L Alkaline Phosphatase (34-104) U/L Troponin I High Sens (0-14) pg/ml Total Protein (6.0-8.3) gm/dl Albumin (3.4-5.0) gm/dl Globulin (2.5-4.0) gm/dl Albumin/Globulin Ratio (0.9-2) TSH 3.589 (0.300-4.500) uIu/ml SARS-CoV-2 (PCR) NEGATIVE (Negative) Influenza Type A (PCR) Negative (Neg) Influenza Type B (PCR) Negative (Neg) RSV (RT-PCR) Negative (Neg) Administered Medications Magnesium Sulfate/Dextrose (Magnesium Sulfate / D5w) 1 gm in 100 mls @ 100 mls/hr IV NOW STA Stop: 03/18/22 11:48 Last Admin: 03/18/22 11:25 Dose: 100 mls/hr Documented By: SANTY Discontinued Medications Sodium Chloride (Nss 1000ml) 1,000 mls @ 999 mls/hr IV .Q1H1M SEBASTIEN Stop: 03/18/22 11:00 Last Admin: 03/18/22 10:31 Dose: 999 mls/hr Documented By: SRAVAN Cefepime HCl (Maxipime) 2,000 mg in 20 mls @ 5 mls/min IV NOW STA; Protocol Stop: 03/18/22 10:03 Last Admin: 03/18/22 11:25 Dose: 5 mls/min Documented By: SANTY Sodium Chloride (Nss 1000ml) 500 mls @ 999 mls/hr IV .Q31M ONE Stop: 03/18/22 11:39 Last Admin: 03/18/22 11:41 Dose: 999 mls/hr Documented By: SANTY Magnesium Oxide (Magnesium Oxide 400 Mg Tab) 400 mg PO NOW STA Stop: 03/18/22 10:50 Last Admin: 03/18/22 11:25 Dose: 400 mg Documented By: Admin: 03/18/22 11:25 Dose: 400 mg Documented By: SANTY Imaging Data Radiologist's Impression: Abdomen/Pelvis CT 03/18/22 09:53 CT OF THE ABDOMEN AND PELVIS WITHOUT CONTRAST CLINICAL HISTORY: Possible urinary obstruction. Lower back pain. Urinary symptoms. Lung cancer. COMPARISON STUDY: CT of the abdomen and pelvis February 06, 2022. TECHNIQUE: Axial images of the abdomen and pelvis were obtained without IV contrast. Images were reviewed in the axial, sagittal, and coronal planes. Automated exposure control was utilized for the study. A dose lowering technique was utilized adhering to the principles of ALARA. FINDINGS: Elevation of the left hemidiaphragm is unchanged. The left pleural effusion has resolved since prior CT. Right lower lobe opacity favors atelectasis. No pneumatosis, free air or portal venous gas is present. There is no hydronephrosis or hydroureter. No renal, ureteral or bladder calculi are present. Evaluation of the remainder of the abdomen and pelvis is suboptimal on this unenhanced exam. Liver, spleen, adrenal glands and pancreas are unremarkable. There is no biliary or pancreatic ductal dilatation. There is extensive atherosclerotic plaque of the abdominal aorta. No lymphadenopathy is present. There is no evidence for a bowel obstruction. Sigmoid diverticulosis is noted without evidence for acute diverticulitis. T12, L1 and L2 compression fractures are unchanged since CT of February 06, 2022. No acute fractures are identified on this study. IMPRESSION: 1. No urinary calculi or hydronephrosis. 2. No acute process within the abdomen or pelvis on unenhanced exam. 3. No bowel obstruction. Sigmoid diverticulosis without evidence for acute diverticulitis. 4. No change in appearance of T12, L1 and L2 compression fractures since CT of February 06, 2022. ACT 112: Negative or not required by law. Electronically signed by: Sanchez Begum M.D. 03/18/2022 11:02 AM Chest X-Ray 03/18/22 09:54 XR chest 1V portable CLINICAL HISTORY: Weakness. Lung cancer. COMPARISON STUDY: Chest CT February 06, 2022. FINDINGS: Elevation of the left hemidiaphragm is unchanged. A left subclavian [id number] is in place. There is no thorax. Possible small left pleural effusion is unchanged. There is no evidence for pulmonary edema. Previously described left upper lobe mass is not visualized on this exam. Calcified granuloma within the left upper lobe is incidentally noted. IMPRESSION: 1. No significant change in appearance of the chest since prior chest radiograph and chest CT. Previously described left upper lobe mass not well visualized on this exam. 2. Stable elevation of the left hemidiaphragm with suspected small left pleural effusion. ACT 112: Negative or not required by law. Electronically signed by: Sanchez Begum M.D. 03/18/2022 10:24 AM Discharge Plan Visit Data Chief Complaint: Referred by Doctor ED Provider: Zaki Alba Discharge Problem: Acute confusion, Hypomagnesemia, Anemia, Tachycardia, Acute dehydration Patient Disposition: Admitted As Inpatient Condition: Fair Forms Stand Alone Forms: [facility] [place] [employer] Prescriptions Prescriptions: No Action mecobalamin (vitamin B12) 1,000 mcg tablet,disintegrating 1,000 mcg sublingual DAILY Rx Instructions: place tablet under tongue and allow to dissolve for at least30 secs before swallowing cholecalciferol (vitamin D3) 25 mcg (1,000 unit) capsule 25 mcg PO DAILY furosemide [Lasix] 20 mg tablet 40 mg PO QAM metformin 850 mg tablet 850 mg PO BID nortriptyline 25 mg capsule 25 mg PO HS Qty: 90 3RF alendronate [Fosamax] 70 mg tablet 70 mg PO WEEKLY Qty: 4 3RF Rx Instructions: Take q tues folic acid 1 mg tablet 1 mg PO QPM Qty: 30 3RF (DME) nebulizers [facility] [place] See Rx Instructions .Route Qty: 1 0RF Rx Instructions: nebulizer and nebulizer kits/supplies ANNALISA-99 Incruse Ellipta 62.5 mcg/actuation blister with device 1 inh inhalation DAILY Qty: 30 2RF fluticasone furoate-vilanterol [Breo Ellipta] 100-25 mcg/dose blister with device 1 inh inhalation DAILY Qty: 60 2RF ipratropium-albuterol 0.5 mg-3 mg(2.5 mg base)/3 mL solution for nebulization 3 ml inhalation Q6H PRN (Reason: wheezing) Qty: 360 1RF polyethylene glycol 3350 [Miralax] 17 gram/dose powder 17 g PO DAILY Qty: 238 0RF docusate sodium [Colace] 100 mg capsule 100 mg PO BID Qty: 60 0RF ciprofloxacin HCl 500 mg tablet 500 mg PO BID Rx Instructions: Take for 7 days starting 03/14/22 olanzapine 2.5 mg tablet 2.5 mg PO HS omeprazole 40 mg capsule,delayed release(DR/EC) 40 mg PO QPM potassium chloride [Klor-Con M20] 20 mEq tablet,ER particles/crystals 20 meq PO BID prednisone 10 mg tablet 10 mg PO DAILY Eliquis 5 mg Tablet 5 mg PO BID Qty: 60 0RF Referrals Referrals: PCP,NO [Physician] -
[2022-03-18] MEDS ORDERED: SODIUM CHLORIDE 0.9% 1000ML 1,000 ML IV SCH ×2 (10:00→13:29)
[2022-03-18] MEDS ORDERED: CEFEPIME 2,000 MG/20 ML VIAL IV STA (10:00)
[2022-03-18 10:20] LABS: Basophils # (auto) 0.04 K/uL (0-0.2); Basophils % (auto) 0.4 %; Eosinophils # (auto) 0.06 K/uL (0-0.50); Eosinophils % (auto) 0.6 %; Hematocrit (blood only) 29.2 % (34.1-44.9); Hemoglobin 9.5 g/dl (12.0-16.0); Immature Granulocytes # (auto) 0.29 K/uL (0.00-0.02); Immature Granulocytes % (auto) 2.7 %; Lymphocytes # (auto) 0.57 K/uL (1.2-3.4); Lymphocytes % (auto) 5.3 %; Mean Corpuscular Hemoglobin 31.1 pg (25.0-34.0); Mean Corpuscular Hgb Conc 32.5 g/dL (32.0-36.0); Mean Corpuscular Volume 95.7 fL (80.0-100.0); Mean Platelet Volume 9.2 fL (9.4-12.3); Monocytes # (auto) 1.19 K/uL (0.24-0.82); Monocytes % (auto) 11.1 %; Neutrophils # (auto) 8.54 K/uL (1.4-6.5); Neutrophils % (auto) 79.9 %; Platelet Count 272 K/uL (130-400); RDW Coefficient of Variation 18.6 % (11.5-14.5); RDW Standard Deviation 64.7 fL (36.4-46.3); Red Blood Count 3.05 M/uL (3.93-5.22); White Blood Count 10.69 K/ul (4.8-10.8)
--- NOTE | 2022-03-18 10:26 | XRay Report ---
XR chest 1V portable CLINICAL HISTORY: Weakness. Lung cancer. COMPARISON STUDY: Chest CT February 06, 2022. FINDINGS: Elevation of the left hemidiaphragm is unchanged. A left subclavian [id number] is in arnaldo ce. There is no thorax. Possible small left pleural effusion is unchanged. There is no evidence for p ulmonary edema. Previously described left upper lobe mass is not visualized on this exam. Calcified g ranuloma within the left upper lobe is incidentally noted. IMPRESSION: 1. No significant change in appearance of the chest since prior chest radiograph and chest CT. Previo usly described left upper lobe mass not well visualized on this exam. 2. Stable elevation of the left hemidiaphragm with suspected small left pleural effusion. ACT 112: Negative or not required by law. Electronically signed by: Sanchez Begum M.D. 03/18/2022 10:24 AM
[2022-03-18 10:42] LABS: Albumin Globulin Ratio 0.9 (0.9-2); Bilirubin,Total 0.5 mg/dl (0.2-1.0); Calcium 8.8 mg/dl (8.5-10.1); Creatinine Clr Calc Pharmacy 36.1 ml/min; Est GFR (African American) 51.2 ml/min; Est GFR (Non-African American) 44.1 ml/min; Globulin 3.2 gm/dl (2.5-4.0); Magnesium 1.5 mg/dl (1.7-2.4); Potassium 4.2 mmol/L (3.5-5.1); Total Protein 6.2 gm/dl (6.0-8.3)
[2022-03-18 10:49] LABS: Troponin I High Sensitivity 13.2 pg/ml (0-14)
[2022-03-18] MEDS ORDERED: MAGNESIUM SULFATE / D5W 1 GM/100 ML BAG IV STA (10:49)
[2022-03-18 10:59] LABS: INR 1.3 (0.9-1.1); Partial Thromboplastin Ratio 3.3; Prothrombin Time 13.4 Seconds (9.0-12.0)
--- NOTE | 2022-03-18 11:04 | CT Scan Report ---
CT OF THE ABDOMEN AND PELVIS WITHOUT CONTRAST CLINICAL HISTORY: Possible urinary obstruction. Lower back pain. Urinary symptoms. Lung cancer. COMPARISON STUDY: CT of the abdomen and pelvis February 06, 2022. TECHNIQUE: Axial images of the abdomen and pelvis were obtained without IV contrast. Images were revi ewed in the axial, sagittal, and coronal planes. Automated exposure control was utilized for the xiomy dy. A dose lowering technique was utilized adhering to the principles of ALARA. FINDINGS: Elevation of the left hemidiaphragm is unchanged. The left pleural effusion has resolved si nce prior CT. Right lower lobe opacity favors atelectasis. No pneumatosis, free air or portal venous gas is present. There is no hydronephrosis or hydroureter. No renal, ureteral or bladder calculi are present. Evaluation of the remainder of the abdomen and pelvis is suboptimal on this unenhanced exam. Liver, spleen, adrenal glands and pancreas are unremarkable. There is no biliary or pancreatic ducta l dilatation. There is extensive atherosclerotic plaque of the abdominal aorta. No lymphadenopathy is present. There is no evidence for a bowel obstruction. Sigmoid diverticulosis is noted without evide nce for acute diverticulitis. T12, L1 and L2 compression fractures are unchanged since CT of February 06, 2022. No acute fractures are identified on this study. IMPRESSION: 1. No urinary calculi or hydronephrosis. 2. No acute process within the abdomen or pelvis on unenhanced exam. 3. No bowel obstruction. Sigmoid diverticulosis without evidence for acute diverticulitis. 4. No change in appearance of T12, L1 and L2 compression fractures since CT of February 06, 2022. ACT 112: Negative or not required by law. Electronically signed by: Sanchez Begum M.D. 03/18/2022 11:02 AM
[2022-03-18] MEDS ORDERED: SODIUM CHLORIDE 0.9% 1000ML 500 ML IV ONE (11:09)
[2022-03-18 11:21] LABS: Influenza A virus by PCR Negative (Neg); Influenza B virus by PCR Negative (Neg); RSV by PCR Negative (Neg); SARS CoV2 RNA(COVID-19)Cepheid NEGATIVE (Negative)
[2022-03-18] MEDS: MAGNESIUM OXIDE 400 MG TAB PO STA (11:25)
--- NOTE | 2022-03-18 11:33 | History & Physical Report ---
Date of Service March 18, 2022 Assessment & Plan (1) UTI (urinary tract infection): Plan: Patient has clinical deterioration which may be metabolic encephalopathy from urinary tract infection present on admission. Also some of her confusion could be from quinolone therapy for which she was prescribed as an outpatient. Repeat urinalysis will be obtained and patient was given cefepime in the ER. Looking at her previous sensitivities will transition to Zosyn therapy blood cultures will also be obtained in the ER if not ordered by ER physician. Because of concern for clinical dehydration patient will be hydrated with crystalloid solution, her last echocardiogram had low normal but low normal heart function subsequently we will resuscitate her with an additional liter after to 1.5 L given in the ED. Sepsis is not felt to be a diagnosis on admission (2) Pulmonary embolism: Plan: Pulmonary embolism diagnosed February 18 we will continue on apixaban therapy cautiously with her mild anemia. The anemia could be subsequent to her previous antineoplastic therapy. We will continue on omeprazole but changed to twice daily therapy (3) Anemia: Plan: Patient's hemoglobin is in the 9 g range this is slightly lower than her baseline but higher than previously chemotherapy-induced anemia. Patient will have iron and B12 checked she typically takes daily folic acid and B12, stool was heme trace positive in ED on apixaban this will be watched cautiously (4) Chronic respiratory failure with hypoxia: Plan: Patient continues on umeclidinium, fluticasone vilanterol all and as needed albuterol/ipratropium Patient typically on 2 L of oxygen at home chronically (5) Diabetes mellitus, type 2: Plan: Patient typically on metformin will continue on a carbohydrate conservative diet and metformin will be held her glucose is 72 on presentation (6) Compression fracture: Plan: Well described previous thoracic and lumbar compression fractures, she remains on calcium and vitamin D, recently had alendronate stopped (7) Polymyalgia rheumatica: Plan: Patient remains on prednisone 10 mg for this we will give 1 dose of hydrocortisone 50 in case she is adrenally insufficient. Family cautioned this may cause agitation (8) Small cell lung cancer: Plan: This is noted and [facility]. Her last round of treatment was in December her fourth cycle was not tolerated due to functional decline imaging of her chest does not show any increase in size imaging of her abdomen does not show any additional concern for metastatic disease at this time (9) Hypomagnesemia: Plan: This is replete in the emergency department Plan Patient wishes to have a full code at this time Patient typically does not walk at home PT/OT will be ordered History of Present Illness Primary Care Provider: Katherine Ceja MD The patient is a 76-year-old female who was recently diagnosed with a Citrobacter UTI. She was placed on Cipro which, according to her urine culture, should be effective. ( did have enterococcal uti in 02/18 resistent to cipro) She believes she has been on Cipro for several days. Repeat culture on presentation Clinically the ER physician feels the pt is dehydrated with dry mucus membranes and sinus tachycardia There has been no fever, no shortness of breath, no cough or cold or congestion. No vomiting. As per the home health staff, the patient was a bit confused this morning, the decision was made to send her to the ER for evaluation. Of note, the patient does have a history of breast bladder and lung cancer, She recieved chemotherapy in the fall, not completing the 4 cycle due to poor tolerance and was diagnosed with PE in january continues on anticoagulation therapy She is mildly anemic on presentation, stool trace heme pos. Allergies Allergy/AdvReac Type Severity Reaction Status Date / Time castor oil Allergy Severe "TAXANES" Verified 03/18/22 10:04 CAUSE DYSPNEA, RASH, ELEVATED BP docetaxel [From Taxotere] Allergy Severe "TAXANES" Verified 03/18/22 10:04 CAUSE DYSPNEA, RASH, ELEVATED BP paclitaxel Allergy Severe "TAXANES" Verified 03/18/22 10:04 CAUSE DYSPNEA, RASH, ELEVATED BP trimethoprim [From Bactrim] Allergy Severe Anaphylaxis Verified 03/18/22 10:04 Iodinated Contrast Media Allergy Intermediate HIVES/ITCHI Verified 03/18/22 10:04 NG nitrofurantoin Allergy Intermediate CHEST Verified 03/18/22 10:04 PAIN, DYSPNEA Sulfa (Sulfonamide Allergy Intermediate HIVES, Verified 03/18/22 10:04 Antibiotics) ITCHINESS, SHORTNESS OF BREATH phenazopyridine AdvReac Intermediate N/V Verified 03/18/22 10:04 codeine AdvReac COLD Verified 03/18/22 10:04 SWEAT, THINGS START SPINNING, NAUSEA Home Medications Medication Instructions Recorded Confirmed Type metformin 850 mg tablet 850 mg PO BID 07/05/21 03/18/22 History nortriptyline 25 mg capsule 25 mg PO HS #90 caps 11/04/21 03/18/22 Rx folic acid 1 mg tablet 1 mg PO QPM #30 tabs 11/21/21 03/18/22 Rx cholecalciferol (vitamin D3) 25 25 mcg PO DAILY 12/01/21 03/18/22 History mcg (1,000 unit) capsule mecobalamin (vitamin B12) 1,000 1,000 mcg sublingual DAILY 12/01/21 03/18/22 History mcg disintegrating tablet,sublingual nebulizers #1 ea 12/05/21 02/22/22 Rx fluticasone furoate 100 1 inh inhalation DAILY #60 ea 12/07/21 03/18/22 Rx mcg-vilanterol 25 mcg/dose inhalation powder (Breo Ellipta) umeclidinium 62.5 mcg/actuation 1 inh inhalation DAILY #30 ea 12/07/21 03/18/22 Rx blister powder for inhalation (Incruse Ellipta) furosemide 20 mg tablet (Lasix) 40 mg PO QAM 01/16/22 03/18/22 History docusate sodium 100 mg capsule 100 mg PO BID #60 caps 01/22/22 03/18/22 Rx (Colace) polyethylene glycol 3350 17 17 g PO DAILY #238 grams 01/22/22 03/18/22 Rx gram/dose oral powder (Miralax) apixaban 5 mg tablet (Eliquis) 5 mg PO BID #60 tabs 02/10/22 03/18/22 Rx ipratropium 0.5 mg-albuterol 3 mg 3 ml inhalation Q6H PRN wheezing 03/14/22 03/18/22 Rx (2.5 mg base)/3 mL nebulization #360 mL soln olanzapine 2.5 mg tablet 2.5 mg PO HS 03/18/22 03/18/22 History omeprazole 40 mg capsule,delayed 40 mg PO QPM 03/18/22 03/18/22 History release potassium chloride 20 mEq 20 meq PO BID 03/18/22 03/18/22 History tablet,extended release(part/cryst) (Klor-Con M) prednisone 10 mg tablet 10 mg PO DAILY 03/18/22 03/18/22 History Past Med/Surg History Medical History Asthma (04/25/12) Stable and controlled Chronic dyspnea Chronic obstructive pulmonary disease STABLE- CONTROLLED- ALBUTEROL USE THIS AM COPD (chronic obstructive pulmonary disease) COPD exacerbation Diabetes mellitus, type 2 NIDDM- WELL CONTROLLED AND STABLE Endometrial thickening on ultrasound Ex-smoker GERD (gastroesophageal reflux disease) Hearing deficit NO AIDS Hemoptysis History of breast cancer RIGHT S/P LUMPECTOMY/CHEMO/RADATION (2009)- STABLE AT THIS TIME History of diverticulitis History of liver disease 03/2019 [facility] FOR LIVER ABSCESS- GIVEN ABXS X MONTHS- FOLLOWING WITH [facility] FOR MONITORING -RECENT CT SCAN 06/16/19- SHOWS ABSCESS TO BE DECREASED TO 3.5CM (SURGEON IS AWARE) Hx of bladder cancer HAD BCG INSTILLATION - DX: 2012 Left rib fracture (2016) Liver abscess Lower extremity edema Malignant neoplasm of lung Bronch with biopsy on 11/15/21 Migraine HX Osteoporosis Osteoporosis Pancytopenia due to antineoplastic chemotherapy PMR (polymyalgia rheumatica) PMR (polymyalgia rheumatica) CHRONIC Port-A-Cath in place Small cell lung cancer Tobacco abuse Tremor RIGHT HAND Ureteral tumor Vertebral fracture LUMBAR AND THORACIC Surgical History H/O cystoscopy History of appendectomy History of arthroscopy History of breast biopsy History of bronchoscopy History of cholecystectomy History of colonoscopy History of elbow surgery History of lumpectomy of right breast History of surgery History of surgery Nausea and vomiting after administration of anesthetic agent Family History Other Adopted Family history unknown Social History Smoking Status: Former smoker Tobacco Type: Cigarettes Cigarettes Per Day: 6; Second Hand Exposure: Yes; Hx Alcohol Use: No Hx Substance Use: No Preferred Language: Arabic Communication Ability: Effective Visual Impairment: No Limitations Hearing Ability: Normal Grain Elevator Agent Required: No Beliefs That Will Affect Care: None marital status: Single Current Living Situation: Other Current Living Situation Comment: lives with roommate current occupational status: retired Feels Safe at Home: Yes Childhood Exposure to Second-Hand Smoke: Yes caffeine: No during the past year weight has: remained stable Dental Care, Regularly: Yes Physical Activity Frequency: 1-2 Times per Week Seatbelt Use: always Sunscreen Use: Yes Assistive Devices: Oxygen - Continuous and Walker Review of Systems Review of Systems: Mild distress and moderate fatigue no headache, no visual changes no speech but does have loss of taste and dry mouth making it difficult to swallow no chest pain, pressure or palpitations no shortness of breath, does have a chronic daily cough of clear mucus no abdominal pain, nausea or vomiting, recently resolved constipation without melena Resolution of previous dysuria, no additional hematuria or frequency no focal joint pain or swelling longstanding history of PMR no back pain, CVA tenderness or radicular pain (known compression fractures) no bruising, bleeding or rashes no focal signs of weakness or numbness or altered sensation no complaints of anxiety or depression.. Physical Exam Physical Exam: The patient appeared chronically ill with alopecia and sarcopenia Vital signs as documented. Head exam is normocephalic atraumatic Oropharynx is without thrush or lesions dry mucous membranes are noted Neck is without JVD, thyromegaly, or carotid bruits. Lungs are clear to auscultation, no focal loss of breath sounds good air m ovement no wheezes Cardiac exam, Rhythm is regular.. No murmurs, rubs or gallops. Abdominal exam reveals normal bowel sounds, soft non tender, no masses Extremities are nonedematous and both pedal pulses are present Neurologic exam is alert and oriented x2, no focal loss of strength or sensation is confused in casual conversation Skin is without bruises or rashes Psychologically is without concerns for anxiety or depression.. Results & Data Results & Data ([facility]) Vital Signs (Past 12 Hours) Vital Signs Temp Pulse Resp BP Pulse Ox O2 Del Method O2 Flow Rate 03/18/22 09:54 112 H 98 Nasal Cannula 2 03/18/22 09:49 97.3 F L 117 H 20 119/74 94 Nasal Cannula 2 Diagnostic Findings Abdomen/Pelvis CT 03/18/22 09:53 CT OF THE ABDOMEN AND PELVIS WITHOUT CONTRAST CLINICAL HISTORY: Possible urinary obstruction. Lower back pain. Urinary symptoms. Lung cancer. COMPARISON STUDY: CT of the abdomen and pelvis February 06, 2022. TECHNIQUE: Axial images of the abdomen and pelvis were obtained without IV contrast. Images were reviewed in the axial, sagittal, and coronal planes. Automated exposure control was utilized for the study. A dose lowering technique was utilized adhering to the principles of ALARA. FINDINGS: Elevation of the left hemidiaphragm is unchanged. The left pleural effusion has resolved since prior CT. Right lower lobe opacity favors atelectasis. No pneumatosis, free air or portal venous gas is present. There is no hydronephrosis or hydroureter. No renal, ureteral or bladder calculi are present. Evaluation of the remainder of the abdomen and pelvis is suboptimal on this unenhanced exam. Liver, spleen, adrenal glands and pancreas are unremarkable. There is no biliary or pancreatic ductal dilatation. There is extensive atherosclerotic plaque of the abdominal aorta. No lymphadenopathy is present. There is no evidence for a bowel obstruction. Sigmoid diverticulosis is noted without evidence for acute diverticulitis. T12, L1 and L2 compression fractures are unchanged since CT of February 06, 2022. No acute fractures are identified on this study. IMPRESSION: 1. No urinary calculi or hydronephrosis. 2. No acute process within the abdomen or pelvis on unenhanced exam. 3. No bowel obstruction. Sigmoid diverticulosis without evidence for acute diverticulitis. 4. No change in appearance of T12, L1 and L2 compression fractures since CT of February 06, 2022. Electronically signed by: Sanchez Begum M.D. 03/18/2022 11:02 AM Chest X-Ray 03/18/22 09:54 XR chest 1V portable CLINICAL HISTORY: Weakness. Lung cancer. COMPARISON STUDY: Chest CT February 06, 2022. FINDINGS: Elevation of the left hemidiaphragm is unchanged. A left subclavian [id number] is in place. There is no thorax. Possible small left pleural effusion is unchanged. There is no evidence for pulmonary edema. Previously described left upper lobe mass is not visualized on this exam. Calcified granuloma within the left upper lobe is incidentally noted. IMPRESSION: 1. No significant change in appearance of the chest since prior chest radiograph and chest CT. Previously described left upper lobe mass not well visualized on this exam. 2. Stable elevation of the left hemidiaphragm with suspected small left pleural effusion. Electronically signed by: Sanchez Begum M.D. 03/18/2022 10:24 AM ECG Additional Comments: EKG shows sinus tachycardia without acute ST or T wave changes PG Care Time/CCT Total # of Minutes Spent Total Time Spent with Patient: Total time spent is greater than 50% in coordination of care (as documented) at patient's floor/unit and/or counseling patient: Coding Level of Care Code 48543 Initial Inpt Care Lvl 3 Diagnoses UTI (urinary tract infection) N39.0 Pulmonary embolism I26.99 Anemia D64.9 Chronic respiratory failure with hypoxia J96.11 Diabetes mellitus, type 2 E11.9 Compression fracture Polymyalgia rheumatica M35.3 Small cell lung cancer C34.90 Hypomagnesemia E83.42
[2022-03-18 11:48] LABS: Appearance Urine Clear (Clear); Bacteria Urine Automated Negative (Negative); Bilirubin Urine Negative (Negative); Blood Urine Negative (Negative); Color Urine Yellow; Epithelial Cell Urine Auto >30 /lpf (0-5); Glucose Urine UA Negative (Negative); Ketones Urine 1+ (Negative); Leukocyte Esterase Urine 1+ (Negative); Nitrite Urine Negative (Negative); Protein Urine Trace (Negative); Specific Gravity Urine 1.013 (1.000-1.030); Urobilinogen Urine Negative (Negative); pH Urine 5.5 (4.5-7.5)
[2022-03-18] MEDS ORDERED: HYDROCORTISONE SOD SUCCINATE 100 MG/2 ML VIAL IV ONE ×2 (12:15→14:00)
[2022-03-18 13:11] LABS: Partial Thromboplastin Time 89.5 Seconds (21.0-31.0)
[2022-03-18] MEDS ORDERED: GLUCAGON FOR INJ 1 MG VIAL SQ PRN (13:29)
[2022-03-18] MEDS ORDERED: ACETAMINOPHEN 325 MG TAB PO PRN (13:29)
[2022-03-18] MEDS ORDERED: ONDANSETRON INJ 2 MG/ML 2 ML VIAL IV PRN (13:29)
[2022-03-18] MEDS ORDERED: GLUCOSE 10 TAB/TUBE PO PRN (13:29)
[2022-03-18] MEDS ORDERED: CARBOHYDRATES FOR HYPOGLYCEMIA PO PRN (13:29)
[2022-03-18] MEDS ORDERED: GLUCOSE 40% GEL 15 GM TUBE PO PRN (13:29)
[2022-03-18] MEDS ORDERED: DEXTROSE 50% 50 ML SYRINGE IV PRN (13:29)
[2022-03-18] MEDS ORDERED: ALBUT/IPRATROP 3MG/0.5MG NEB 3 ML VIAL INH PRN (13:29)
[2022-03-18] MEDS: PIPERACILLIN/TAZOBACTAM 3.375 GM in DEXTROSE 5% 100 ML IV SCH ×2 (14:50→22:18)
[2022-03-18] MEDS: HYDROCORTISONE SOD 50 MG in SYRINGE 0 ML IV SCH (14:50)
[2022-03-18] MEDS: INSULIN ASPART PER UNIT SC SCH ×2 (17:15→22:48)
[2022-03-18] MEDS: FOLIC ACID 1 MG TAB PO SCH (21:40)
[2022-03-18] MEDS: DOCUSATE SODIUM 100 MG CAP PO SCH (21:40)
[2022-03-18] MEDS: APIXABAN 5 MG TABLET PO SCH (21:40)
[2022-03-18] MEDS: PANTOprazole 40 MG TAB PO SCH (22:17)
[2022-03-18] MEDS: OLANZAPINE 2.5 MG TAB PO SCH (22:18)
[2022-03-19] MEDS ORDERED: traMADol HCL 50 MG TABLET PO STA (00:17)
[2022-03-19] MEDS: PIPERACILLIN/TAZOBACTAM 3.375 GM in DEXTROSE 5% 100 ML IV SCH ×3 (05:32→22:39)
[2022-03-19 07:40] LABS: Hematocrit (blood only) 26.9 % (34.1-44.9); Hemoglobin 8.6 g/dl (12.0-16.0); Mean Corpuscular Hemoglobin 30.4 pg (25.0-34.0); Mean Corpuscular Volume 95.1 fL (80.0-100.0); Mean Platelet Volume 9.4 fL (9.4-12.3); Platelet Count 269 K/uL (130-400); RDW Coefficient of Variation 18.2 % (11.5-14.5); RDW Standard Deviation 62.8 fL (36.4-46.3); Red Blood Count 2.83 M/uL (3.93-5.22); White Blood Count 7.79 K/ul (4.8-10.8)
[2022-03-19 08:13] LABS: BUN Creatinine Ratio 13.9 (10-20); Calcium 8.3 mg/dl (8.5-10.1); Creatinine Clr Calc Pharmacy 44.1 ml/min; Est GFR (African American) 61.7 ml/min; Est GFR (Non-African American) 53.3 ml/min; Magnesium 1.8 mg/dl (1.7-2.4); Potassium 3.8 mmol/L (3.5-5.1)
[2022-03-19] MEDS: INSULIN ASPART PER UNIT SC SCH ×4 (09:02→21:14)
[2022-03-19 09:17] LABS: Vitamin B12 > 1500 pg/ml (180-914)
[2022-03-19] MEDS: DOCUSATE SODIUM 100 MG CAP PO SCH ×2 (09:46→21:12)
[2022-03-19] MEDS: APIXABAN 5 MG TABLET PO SCH ×2 (09:46→21:12)
[2022-03-19] MEDS: CYANOCOBALAMIN (B-12) 500 MCG TABLET PO SCH (09:46)
[2022-03-19] MEDS: CHOLECALCIFEROL 1,000 UNITS 25 MCG TAB PO SCH (09:46)
[2022-03-19] MEDS: predniSONE 10 MG TABLET PO SCH (09:47)
[2022-03-19] MEDS: POLYETHYLENE (MIRALAX) 17 GM PACK PO SCH (09:47)
[2022-03-19] MEDS: UMECLIDINIUM BROMIDE 62.5MCG/BLISTER 7 PUFFS/INHALER INH SCH (09:47)
[2022-03-19] MEDS: FLUTICASONE/VILANTEROL 100/25MCG 14 PUFFS/INHALER INH SCH (09:47)
[2022-03-19] MEDS: PANTOprazole 40 MG TAB PO SCH ×2 (09:47→21:12)
[2022-03-19] MEDS ORDERED: HALOPERIDOL LACTATE 5 MG/ML 1 ML VIAL IM STA ×2 (10:32→13:15)
--- NOTE | 2022-03-19 11:56 | Hospitalist Progress Note ---
Date of Service March 19, 2022 Assessment & Plan (1) UTI (urinary tract infection): Plan: Past history of Citrobacter isolated in the urine and she is on Zosyn, day 2. Awaiting current urine culture and blood culture results. White blood cell count however has trended down and she has no fever. (2) Pulmonary embolism: Plan: Pulmonary embolism diagnosed February 18 being treated with apixaban therapy. (3) Anemia: Plan: Appears to be chronic. No overt GI bleeding. Will follow. Serial labs. (4) Chronic respiratory failure with hypoxia: Plan: Patient continues on umeclidinium, fluticasone vilanterol all and as needed albuterol/ipratropium. Stable. Typically on 2 L of oxygen at home chronically (5) Diabetes mellitus, type 2: Plan: ADA diet. Sliding scale coverage as needed. Metformin is on hold. (6) Compression fracture: Plan: Old. Stable. No acute treatment needed at this time. Continue calcium and vitamin D, recently had alendronate stopped (7) Polymyalgia rheumatica: Plan: Prednisone dependent. She received 1 dose of hydrocortisone 50mg IV on admission. Family stated that IV steroids may cause agitation (8) Small cell lung cancer: Plan: [facility] Her last round of treatment was in December. Her fourth cycle was not tolerated due to functional decline. Imaging of her chest does not show any increase in size of the tumor. Imaging of her abdomen does not show any additional concern for metastatic disease at this time (9) Hypomagnesemia: Plan: Corrected (10) Acute dehydration: Plan: Due to poor oral intake. Megestrol has been added to address her appetite and IV fluids have been ordered. Will monitor intake and output (11) Acute confusion: Plan: Appears to be due to metabolic encephalopathy. No brain metastases seen on brain MRI completed October of this year. Supportive care. Treat suspected UTI Plan CODE STATUS: Patient wishes to be full code at this time Disposition: To be determined Admission and Anticipated Discharge Date Admission Date: March 18, 2022 Subjective Alert and oriented. Daughter is at the bedside. The patient is suffering from metabolic encephalopathy with agitation. She had a brain MRI scan done in October of this year that was negative for metastatic disease. She may need as needed IM Haldol which has been ordered. She is on Zosyn, day 2. Urine cultures and blood cultures are pending but her most recent urine culture grew Citrobacter so we will make sure that is covered. We will add Megace for appetite stimulation since she is somewhat anorexic due to the underlying malignancy and treatment. IV fluids have been ordered and Lasix has been held since she is volume depleted and oral intake has not been good. Review of Systems Review of Systems: The patient is unable to answer any questions reliably regarding review of systems at this time Physical Exam Physical Exam: General-alert. Disoriented however with encephalopathy. No fevers, no chills HEENT-head atraumatic and normocephalic, pupils equal and reactive to light, extraocular muscles intact Neck-no lymphadenopathy or thyromegaly, trachea midline Chest-clear to auscultation percussion. No rales wheezing or rhonchi Cardiac-regular rate and rhythm, normal S1 and S2 Abdomen-normal bowel sounds, nontender, no hepatosplenomegaly Extremities-no cyanosis, clubbing, or edema Neuro-cranial nerves II through XII intact, motor and sensory function within normal limits, strength symmetrical , no focal deficits Psych-unpleasant. Confused. Results & Data Results & Data ([facility]) Vital Signs (Past 12 Hours) Vital Signs Temp Pulse Pulse Resp BP Pulse Ox O2 Del Method 03/19/22 07:24 36.4 C L 96 H 20 119/71 91 Nasal Cannula 03/19/22 02:41 37.1 C 92 H 18 111/63 93 Room Air 03/19/22 03:25 96 H 03/19/22 03:18 Nasal Cannula O2 Flow Rate 03/19/22 07:24 2 03/19/22 02:41 03/19/22 03:25 03/19/22 03:18 2 Laboratory Results 03/19/22 07:03 03/19/22 07:03 PG Care Time/CCT Total # of Minutes Spent Total Time Spent with Patient: Total time spent is greater than 50% in coordination of care (as documented) at patient's floor/unit and/or counseling patient: Coding Level of Care Code 60672 Subseq Hosp Care Lvl 3 Diagnoses UTI (urinary tract infection) N39.0 Pulmonary embolism I26.99 Anemia D64.9 Chronic respiratory failure with hypoxia J96.11 Diabetes mellitus, type 2 E11.9 Compression fracture Polymyalgia rheumatica M35.3 Small cell lung cancer C34.90 Hypomagnesemia E83.42 Acute dehydration E86.0 Acute confusion R41.0
[2022-03-19] MEDS: SODIUM CHLORIDE 0.9% 1000ML 1,000 ML IV SCH (12:10)
[2022-03-19] MEDS: HYDROCORTISONE SOD 50 MG in SYRINGE 0 ML IV SCH (14:08)
[2022-03-19] MEDS ORDERED: SODIUM CHLORIDE 0.9% 1000ML 250 ML IV ONE (15:28)
[2022-03-19] MEDS ORDERED: HALOPERIDOL LACTATE 5 MG/ML 1 ML VIAL IM PRN ×2 (16:00→19:15)
[2022-03-19] MEDS ORDERED: Nursing to Pharmacy Communication SCH (17:30)
[2022-03-19] MEDS: OLANZAPINE 2.5 MG TAB PO SCH (21:12)
[2022-03-19] MEDS: FOLIC ACID 1 MG TAB PO SCH (21:12)
[2022-03-19] MEDS: MEGESTROL ACETATE 40 MG TAB PO SCH (21:12)
--- NOTE | 2022-03-19 22:01 | Electrocardiogram Report ---
Test Reason : Blood Pressure : / mmHG Vent. Rate : 112 BPM Atrial Rate : 112 BPM P-R Int : 160 ms QRS Dur : 116 ms QT Int : 356 ms P-R-T Axes : 046 -50 045 degrees QTc Int : 485 ms Sinus tachycardia Incomplete right bundle branch block Left anterior fascicular block Abnormal ECG When compared with ECG of 09-FEB-2022 15:48, ST no longer depressed in Anterior leads T wave inversion no longer evident in Anterolateral leads Confirmed by Kel Moreno ([id number]) on 03/19/2022 10:01:00 PM Referred By: Confirmed By:Kel Moreno
[2022-03-20] MEDS: SODIUM CHLORIDE 0.9% 1000ML 1,000 ML IV SCH ×2 (00:21→18:34)
[2022-03-20] MEDS: PIPERACILLIN/TAZOBACTAM 3.375 GM in DEXTROSE 5% 100 ML IV SCH ×3 (06:06→21:44)
[2022-03-20 07:25] LABS: Estimated Average Glucose 114 mg/dl; Hemoglobin A1C 5.6 % (4.5-5.6)
[2022-03-20 07:59] LABS: Hematocrit (blood only) 25.7 % (34.1-44.9); Hemoglobin 8.3 g/dl (12.0-16.0); Mean Corpuscular Hemoglobin 30.9 pg (25.0-34.0); Mean Corpuscular Hgb Conc 32.3 g/dL (32.0-36.0); Mean Corpuscular Volume 95.5 fL (80.0-100.0); Mean Platelet Volume 9.2 fL (9.4-12.3); Platelet Count 234 K/uL (130-400); RDW Coefficient of Variation 18.5 % (11.5-14.5); RDW Standard Deviation 64.7 fL (36.4-46.3); Red Blood Count 2.69 M/uL (3.93-5.22)
[2022-03-20] MEDS: MEGESTROL ACETATE 40 MG TAB PO SCH ×2 (08:12→21:35)
[2022-03-20] MEDS: APIXABAN 5 MG TABLET PO SCH ×2 (08:13→21:36)
[2022-03-20] MEDS: predniSONE 10 MG TABLET PO SCH (08:29)
[2022-03-20 08:32] LABS: BUN Creatinine Ratio 14.3 (10-20); Calcium 7.6 mg/dl (8.5-10.1); Creatinine Clr Calc Pharmacy 57.6 ml/min; Est GFR (African American) 85.7 ml/min; Magnesium 1.7 mg/dl (1.7-2.4)
[2022-03-20] MEDS: PANTOprazole 40 MG TAB PO SCH ×2 (08:35→21:36)
[2022-03-20] MEDS: CYANOCOBALAMIN (B-12) 500 MCG TABLET PO SCH (08:36)
[2022-03-20] MEDS: DOCUSATE SODIUM 100 MG CAP PO SCH ×2 (08:36→21:35)
[2022-03-20] MEDS: CHOLECALCIFEROL 1,000 UNITS 25 MCG TAB PO SCH (08:36)
[2022-03-20] MEDS: POLYETHYLENE (MIRALAX) 17 GM PACK PO SCH (08:37)
[2022-03-20] MEDS: FLUTICASONE/VILANTEROL 100/25MCG 14 PUFFS/INHALER INH SCH (08:42)
[2022-03-20] MEDS: INSULIN ASPART PER UNIT SC SCH ×4 (08:43→21:44)
[2022-03-20] MEDS ORDERED: FUROSEMIDE 40 MG TAB PO SCH (09:00)
[2022-03-20] MEDS: UMECLIDINIUM BROMIDE 62.5MCG/BLISTER 7 PUFFS/INHALER INH SCH (10:32)
[2022-03-20] MEDS ORDERED: SODIUM CHLORIDE 0.9% 1000ML 500 ML IV ONE ×2 (11:44→12:00)
--- NOTE | 2022-03-20 12:12 | Cardiology Consultation ---
Date of Consultation March 20, 2022 Assessment & Plan (1) Paroxysmal atrial fibrillation: (2) Mitral regurgitation: (3) Tachycardia: (4) Anticoagulant long-term use: (5) S/P ablation of atrial flutter: (6) Atrial flutter with rapid ventricular response: (7) Anemia: Plan ASSESSMENT/PLAN: 1. Paroxysmal atrial fibrillation: When reviewing telemetry, it appears as though she developed A. fib with RVR at times but mostly demonstrate sinus rhythm with sinus tachycardia. Today, she has been hypotensive. If blood pressure improves, would consider low-dose beta-joellen. She otherwise is asymptomatic from the A. fib and therefore would not aggressively manage at this time for her short episodes, to avoid hypotension. If A. fib with RVR persists, could consider digoxin. Hopefully her A. fib burden improves as she improves from her acute presenting issue (UTI). She is already on anticoagulation therapy for recent pulmonary embolism. If no contraindication, can continue anticoagulation for stroke risk reduction. 2. Atrial flutter s/p flutter ablation: Performed by Dr. Dupree in January 2022. No obvious atrial flutter noted on telemetry. 3. Mitral regurgitation: Nonsevere. Can be monitored as an outpatient. 4. Cardiomyopathy: Mildly reduced LV systolic function on 02/03/2022 in the setting of atrial flutter with rapid ventricular response. Can repeat an echo as an outpatient. Tachycardia very possible etiology. 5. Sinus tachycardia: Has been known to have sinus tachycardia. Multiple comorbidities. Heart rate currently reasonable. 6. Anticoagulation therapy: Currently on anticoagulation therapy for pulmonary embolism in January 2022. Also indicated for stroke risk reduction for A. fib. 7. Anemia: As per primary hospitalist service. No obvious bleeding. 8. Chronic respiratory failure with hypoxia: Uses supplemental oxygen at home. She does not appear to be significantly hypervolemic and was felt to be hypovolemic on presentation by the hospitalist service. Uses Lasix 40 mg once daily at home. Would consider resuming home dose of Lasix when appropriate. 9. Disposition: Cardiology will continue to follow. On discharge, follow-up with Dr. Dupree, her primary radiologic therapist. Thank you for allowing me to participate in the care of your patient. Please call for any other questions or concerns. Sincerely, Ghassan Moreno M.D. History of Present Illness Reason for Consultation: Atrial fibrillation Requesting Physician: Karl Landers MD Attending Physician: Karl Landers MD History of Present Illness Ms. Ward is a very pleasant 76-year-old female with a history significant for atrial flutter s/p ablation, sinus tachycardia, breast cancer, bladder cancer, small cell lung cancer (chemotherapy 2021), pulmonary embolism (02/06/2022), type 2 diabetes, chronic respiratory failure with hypoxia (2 L oxygen at home), and COPD. Her primary radiologic therapist is Dr. Dupree. She had been hospitalized in January 2022 and treated for atrial flutter with rapid ventricular response. Atrial flutter was unsuccessfully terminated with the use of flecainide, ibutilide or amiodarone. Her heart rate was not easily controlled with rate controlling medications. She underwent atrial flutter ablation. During her hospital stay CTA of the chest was performed and demonstrated pulmonary embolism. She was noted to have chemotherapy-induced pancytopenia during her hospital stay. She was noted to have sinus tachycardia following ablation, rather persistently. She has had the following studies/procedures: 1. Echo 02/03/2022: EF 45 to 50% in the setting of atrial flutter with rapid v entricular response. Mildly dilated RV. Moderate MR. 2. Atrial flutter ablation 02/09/2022: . She was admitted on this occasion on 03/18/2022 with UTI and metabolic encephalopathy. On presentation, her ECG demonstrated sinus tachycardia. On telemetry, she developed rapid heart rate with what appears to be atrial fibrillation with RVR. She presented to the hospital with confusion. Her son-in-law, Ha, was seated at the bedside and stated that she had not been doing well for 1.5 to 2 days prior to presentation. She also admits that she had dyspnea with exertion prior to admission but that was also a chronic issue. She had increased edema but believes it has since improved since her hospital stay. She denies shortness of breath, syncope currently. She also denies chest pain, palpitation or near syncope, or bleeding such as melena, hematochezia, or hematuria. Her son-in-law agrees that her mental status is back to baseline. She is concerned about intermittent hypotension. Review of systems: As above. Review of systems otherwise negative/unremarkable. Family history: She does not know her family history. She was adopted. Social history: She quit smoking in November 2021 after approximately 56 pack years. She denies alcohol or drug abuse. She lives at home with her roommate. She never has been . She has 1 daughter. Her son-in-law, Ha was present at the bedside and her daughter later presented. Allergies Allergy/AdvReac Type Severity Reaction Status Date / Time castor oil Allergy Severe "TAXANES" Verified 03/18/22 10:04 CAUSE DYSPNEA, RASH, ELEVATED BP docetaxel [From Taxotere] Allergy Severe "TAXANES" Verified 03/18/22 10:04 CAUSE DYSPNEA, RASH, ELEVATED BP paclitaxel Allergy Severe "TAXANES" Verified 03/18/22 10:04 CAUSE DYSPNEA, RASH, ELEVATED BP trimethoprim [From Bactrim] Allergy Severe Anaphylaxis Verified 03/18/22 10:04 Iodinated Contrast Media Allergy Intermediate HIVES/ITCHI Verified 03/18/22 10:0 4 NG nitrofurantoin Allergy Intermediate CHEST Verified 03/18/22 10:04 PAIN, DYSPNEA Sulfa (Sulfonamide Allergy Intermediate HIVES, Verified 03/18/22 10:04 Antibiotics) ITCHINESS, SHORTNESS OF BREATH phenazopyridine AdvReac Intermediate N/V Verified 03/18/22 10:04 codeine AdvReac COLD Verified 03/18/22 10:04 SWEAT, THINGS START SPINNING, NAUSEA Home Medications Medication Instructions Recorded Confirmed Type metformin 850 mg tablet 850 mg PO BID 07/05/21 03/18/22 History nortriptyline 25 mg capsule 25 mg PO HS #90 caps 11/04/21 03/18/22 Rx folic acid 1 mg tablet 1 mg PO QPM #30 tabs 11/21/21 03/18/22 Rx cholecalciferol (vitamin D3) 25 25 mcg PO DAILY 12/01/21 03/18/22 History mcg (1,000 unit) capsule mecobalamin (vitamin B12) 1,000 1,000 mcg sublingual DAILY 12/01/21 03/18/22 History mcg disintegrating tablet,sublingual nebulizers #1 ea 12/05/21 02/22/22 Rx fluticasone furoate 100 1 inh inhalation DAILY #60 ea 12/07/21 03/18/22 Rx mcg-vilanterol 25 mcg/dose inhalation powder (Breo Ellipta) umeclidinium 62.5 mcg/actuation 1 inh inhalation DAILY #30 ea 12/07/21 03/18/22 Rx blister powder for inhalation (Incruse Ellipta) furosemide 20 mg tablet (Lasix) 40 mg PO QAM 01/16/22 03/18/22 History docusate sodium 100 mg capsule 100 mg PO BID #60 caps 01/22/22 03/18/22 Rx (Colace) polyethylene glycol 3350 17 17 g PO DAILY #238 grams 01/22/22 03/18/22 Rx gram/dose oral powder (Miralax) apixaban 5 mg tablet (Eliquis) 5 mg PO BID #60 tabs 02/10/22 03/18/22 Rx ipratropium 0.5 mg-albuterol 3 mg 3 ml inhalation Q6H PRN wheezing 03/14/22 03/18/22 Rx (2.5 mg base)/3 mL nebulization #360 mL soln olanzapine 2.5 mg tablet 2.5 mg PO HS 03/18/22 03/18/22 History omeprazole 40 mg capsule,delayed 40 mg PO QPM 03/18/22 03/18/22 History release potassium chloride 20 mEq 20 meq PO BID 03/18/22 03/18/22 History tablet,extended release(part/cryst) (Klor-Con M) prednisone 10 mg tablet 10 mg PO DAILY 03/18/22 03/18/22 History Patient History Medical History (Updated 03/20/22 @ 17:33 by Kel Moreno MD) Asthma (04/25/12) Stable and controlled Atrial flutter with rapid ventricular response Chronic dyspnea Chronic obstructive pulmonary disease STABLE- CONTROLLED- ALBUTEROL USE THIS AM COPD (chronic obstructive pulmonary disease) COPD exacerbation Diabetes mellitus, type 2 NIDDM- WELL CONTROLLED AND STABLE Endometrial thickening on ultrasound Ex-smoker GERD (gastroesophageal reflux disease) Hearing deficit NO AIDS Hemoptysis History of breast cancer RIGHT S/P LUMPECTOMY/CHEMO/RADATION (2009)- STABLE AT THIS TIME History of diverticulitis History of liver disease 03/2019 KIMBERLY FOR LIVER ABSCESS- GIVEN ABXS X MONTHS- FOLLOWING WITH [facility] FOR MONITORING -RECENT CT SCAN 06/16/19- SHOWS ABSCESS TO BE DECREASED TO 3.5CM (SURGEON IS AWARE) Hx of bladder cancer HAD BCG INSTILLATION - DX: 2013 Left rib fracture (2017) Liver abscess Lower extremity edema Malignant neoplasm of lung Bronch with biopsy on 11/15/21 Migraine HX Osteoporosis Osteoporosis Pancytopenia due to antineoplastic chemotherapy PMR (polymyalgia rheumatica) PMR (polymyalgia rheumatica) CHRONIC Port-A-Cath in place Small cell lung cancer Tobacco abuse Tremor RIGHT HAND Ureteral tumor Vertebral fracture LUMBAR AND THORACIC Surgical History (Updated 03/20/22 @ 17:33 by Kel Moreno MD) H/O cystoscopy SEVERAL History of appendectomy History of arthroscopy B/L KNEE History of breast biopsy History of bronchoscopy 11/15/21 History of cholecystectomy History of colonoscopy History of elbow surgery RIGHT History of lumpectomy of right breast History of surgery TURBT X 2; TURBT, CYSTO, RIGHT RPG, STENT: 07/11/18: LMA#4 AT [facility] History of surgery LEFT CHEST PORT Nausea and vomiting after administration of anesthetic agent S/P ablation of atrial flutter Family History Other Adopted Family history unknown Social History Smoking Status: Former smoker Tobacco Type: Cigarettes Cigarettes Per Day: 6; Second Hand Exposure: No; Do You Dip or Chew Tobacco: No; Tobacco Cessation Education Requested by Patient: No Hx Alcohol Use: No Hx Substance Use: No Preferred Language: Danish Communication Ability: Impaired Visual Impairment: No Limitations Hearing Ability: Normal Dyslexia Teacher Required: No Beliefs That Will Affect Care: None marital status: Single Current Living Situation: Other Current Living Situation Comment: lives with roomate current occupational status: retired Other Information That Helps Us Care for You: No Feels Safe at Home: Yes Childhood Exposure to Second-Hand Smoke: Yes caffeine: No during the past year weight has: remained stable Dental Care, Regularly: Yes Physical Activity Frequency: 1-2 Times per Week Seatbelt Use: always Sunscreen Use: Yes Assistive Devices: Hospital Bed, Oxygen - Continuous and Walker Assistive Devices Comment: shower chair, neb machine Physical Exam Physical Exam: Gen.: No acute distress. Alert and oriented. HEENT: Anicteric sclera. Neck: No significant JVD. Mild hepatojugular reflux. No bruits. Normal carotid upstrokes bilaterally. Cardiac: PMI was nonpalpable. No ventricular heave. Regular. Normal S1-S2. No murmurs, rubs, or gallops. Pulmonary: Decreased breath sounds at the left base, otherwise clear to auscultation bilaterally without wheezes, rales, or rhonchi. Abdomen: Soft, nontender, nondistended, with normoactive bowel sounds. No bruits noted. Extremities: 2+ radial pulses bilaterally. 2+ posterior tibialis pulses bilaterally. Trace bilateral pedal edema. No cyanosis. Psychiatric: Affect appears appropriate. Results & Data ([facility]) Vital Signs (Past 12 Hours) Vital Signs Temp Pulse Pulse Resp BP Pulse Ox O2 Del Method 03/20/22 11:38 36.2 C L 115 H 90/57 L 97 Nasal Cannula 03/20/22 11:16 100 03/20/22 10:36 36.6 C 110 H 13 87/56 L 98 Nasal Cannula 03/20/22 08:16 36.4 C L 98 H 20 111/67 90 Room Air 03/20/22 03:26 36.5 C 67 16 118/65 96 Nasal Cannula 03/20/22 01:45 03/20/22 01:43 91 H O2 Flow Rate 03/20/22 11:38 2 03/20/22 11:16 03/20/22 10:36 2 03/20/22 08:16 03/20/22 03:26 2 03/20/22 01:45 2 03/20/22 01:43 Intake & Output 03/18/22 03/19/22 03/20/22 03/21/22 06:59 06:59 06:59 06:59 Intake Total 2746 / 2746 1326 / 1326 115 / 115 Output Total Balance 2746 / 2746 1325 / 1325 115 / 115 Weight 161 lb 13.109 oz 160 lb 14.999 oz Laboratory Results Laboratory Results - last 24 hr 03/19/22 03/19/22 03/19/22 07:03 12:07 16:59 WBC RBC Hgb Hct MCV MCH MCHC RDW Std Deviation RDW Coeff of Atul Plt Count MPV Sodium Potassium Chloride Carbon Dioxide Anion Gap BUN Creatinine Est Cr Clr Drug Dosing Est GFR ( Amer) Est GFR (Non-Af Amer) BUN/Creatinine Ratio Glucose POC Glucose 75 113 H Estimat Average Glucose 114 Hemoglobin A1c 5.6 Calcium Magnesium 03/19/22 03/20/22 03/20/22 20:12 07:40 07:40 WBC 8.80 RBC 2.69 L Hgb 8.3 L Hct 25.7 L MCV 95.5 MCH 30.9 MCHC 32.3 RDW Std Deviation 64.7 H RDW Coeff of Atul 18.5 H Plt Count 234 MPV 9.2 L Sodium 139 Potassium 3.0 L D Chloride 104 Carbon Dioxide 29 Anion Gap 6 BUN 11 Creatinine 0.77 Est Cr Clr Drug Dosing 57.6 Est GFR ( Amer) 85.7 Est GFR (Non-Af Amer) 74.0 BUN/Creatinine Ratio 14.3 Glucose 71 POC Glucose 141 H Estimat Average Glucose Hemoglobin A1c Calcium 7.6 L Magnesium 1.7 03/20/22 03/20/22 03/20/22 08:05 08:06 11:53 WBC RBC Hgb Hct MCV MCH MCHC RDW Std Deviation RDW Coeff of Atul Plt Count MPV Sodium Potassium Chloride Carbon Dioxide Anion Gap BUN Creatinine Est Cr Clr Drug Dosing Est GFR ( Amer) Est GFR (Non-Af Amer) BUN/Creatinine Ratio Glucose POC Glucose 67 L* 74 174 H Estimat Average Glucose Hemoglobin A1c Calcium Magnesium Diagnostic Findings Echo report reviewed as noted above in HPI. CT scan report reviewed as noted above in HPI. ECG personally reviewed 03/18/2022 at 10:22 AM: Sinus tachycardia 112 bpm. Inco mplete RBBB. LAFB. Chest x-ray 03/18/2022: Stable elevation of left hemidiaphragm. Stable findings compared to previous chest x-ray and CT chest per radiology. CT abdomen/pelvis 03/18/2022: No acute process within the abdomen/pelvis. Telemetry personally reviewed: Predominantly sinus rhythm and sinus tachycardia with episodes of atrial fibrillation with RVR. Medications Administered Current Inpatient Medications Acetaminophen (Acetaminophen 325 Mg Tab) 650 mg PO Q4H PRN PRN Reason: Pain or Fever Stop: 04/17/22 13:28 Last Admin: 03/19/22 00:37 Dose: 650 mg Albuterol (Albut/Ipratrop 3mg/0.5mg Neb 3 Ml Vial) 3 ml INH Q6H PRN; Protocol PRN Reason: wheezing Stop: 04/17/22 13:28 Apixaban (Apixaban 5 Mg Tablet) 5 mg PO BID SEBASTIEN Stop: 04/17/22 20:59 Last Admin: 03/20/22 08:13 Dose: 5 mg Cyanocobalamin (Cyanocobalamin (B-12) 500 Mcg Tablet) 1,000 mcg PO DAILY SEBASTIEN Stop: 04/18/22 08:59 Last Admin: 03/20/22 08:36 Dose: 1,000 mcg Dextrose (Dextrose 50% 50 Ml Syringe) 25 - 50 ml IV UD PRN; Protocol PRN Reason: Hypoglycemia Protocol Stop: 04/17/22 13:28 Docusate Sodium (Docusate Sodium 100 Mg Cap) 100 mg PO BID SEBASTIEN Stop: 04/17/22 20:59 Last Admin: 03/20/22 08:36 Dose: 100 mg Fluticasone/Vilanterol (Fluticasone/Vilanterol 100/25mcg 14 Puffs/Inhaler) 1 puffs INH DAILY SEBASTIEN Stop: 04/18/22 08:59 Last Admin: 03/20/22 08:42 Dose: 1 puffs Folic Acid (Folic Acid 1 Mg Tab) 1 mg PO QPM SEBASTIEN Stop: 04/17/22 20:59 Last Admin: 03/19/22 21:12 Dose: Not Given Glucagon (Glucagon For Inj 1 Mg Vial) 1 mg SQ UD PRN; Protocol PRN Reason: Hypoglycemia Protocol Stop: 04/17/22 13:28 Glucose (Glucose 40% Gel 15 Gm Tube) 15 - 30 gm PO UD PRN; Protocol PRN Reason: Hypoglycemia Protocol Stop: 04/17/22 13:28 Glucose (Glucose 10 Tab/Tube) 4 - 8 tab PO UD PRN; Protocol PRN Reason: Hypoglycemia Treatment Stop: 04/17/22 13:28 Haloperidol Lactate (Haloperidol Lactate 5 Mg/Ml 1 Ml Vial) 5 mg IM Q3H PRN PRN Reason: Agitation Stop: 04/18/22 15:59 Piperacillin Sod/Tazobactam (Sod 3.375 gm/ Dextrose) 115 mls @ 28.75 mls/hr IV Q8H SEBASTIEN; Protocol Stop: 03/23/22 14:14 Last Infusion: 03/20/22 10:31 Dose: Infused Sodium Chloride (Nss 1000ml) 1,000 mls @ 60 mls/hr IV .[id number] SEBASTIEN Stop: 04/18/22 10:44 Last Admin: 03/20/22 00:21 Dose: 60 mls/hr Sodium Chloride (Nss 1000ml) 500 mls @ 999 mls/hr IV .Q31M ONE Stop: 03/20/22 12:30 Last Admin: 03/20/22 11:56 Dose: 999 mls/hr Sodium Chloride (Nss 1000ml) 500 mls @ 999 mls/hr IV .Q31M ONE Stop: 03/20/22 12:14 Last Admin: 03/20/22 11:57 Dose: Not Given Insulin Aspart (Insulin Aspart Per Unit) 0 units SC ACHS SEBASTIEN Stop: 04/17/22 16:29 Last Admin: 03/20/22 08:43 Dose: Not Given Megestrol Acetate (Megestrol Acetate 40 Mg Tab) 40 mg PO BID SEBASTIEN Stop: 04/18/22 20:59 Last Admin: 03/20/22 08:12 Dose: 40 mg Miscellaneous (Carbohydrates For Hypoglycemia ) 15 - 30 gm PO UD PRN PRN Reason: Hypoglycemia Protocol Stop: 04/17/22 13:28 Olanzapine (Olanzapine 2.5 Mg Tab) 2.5 mg PO HS SEBASTIEN Stop: 04/17/22 20:59 Last Admin: 03/19/22 21:12 Dose: Not Given Ondansetron HCl (Ondansetron Inj 2 Mg/Ml 2 Ml Vial) 4 mg IV Q6H PRN PRN Reason: Nausea Stop: 04/17/22 13:28 Pantoprazole Sodium (Pantoprazole 40 Mg Tab) 40 mg PO BID SEBASTIEN Stop: 04/17/22 20:59 Last Admin: 03/20/22 08:35 Dose: 40 mg Polyethylene Glycol (Polyethylene (Miralax) 17 Gm Pack) 17 gm PO DAILY SEBASTIEN Stop: 04/18/22 08:59 Last Admin: 03/20/22 08:37 Dose: 17 gm Prednisone (Prednisone 10 Mg Tablet) 10 mg PO DAILY SEBASTIEN Stop: 04/18/22 08:59 Last Admin: 03/20/22 08:29 Dose: 10 mg Umeclidinium [place] (Umeclidinium [place] 62.5mcg/Blister 7 Puffs/Inhaler) 1 puffs INH DAILY SEBASTIEN Stop: 04/18/22 08:59 Last Admin: 03/20/22 10:32 Dose: 1 puffs Vitamin D (Cholecalciferol 1,000 Units 25 Mcg Tab) 1,000 units PO DAILY SEBASTIEN Stop: 04/18/22 08:59 Last Admin: 03/20/22 08:36 Dose: 1,000 units PG Care Time/CCT Total # of Minutes Spent Total Time Spent with Patient: Total time spent is greater than 50% in coordination of care (as documented) at patient's floor/unit and/or counseling patient: Coding Level of Care Code 16966 Initial Inpt Care Lvl 3 Diagnoses Paroxysmal atrial fibrillation I48.0 Mitral regurgitation I34.0 Tachycardia R00.0 Anticoagulant long-term use Z79.01 S/P ablation of atrial flutter Z98.890; Z86.79 Atrial flutter with rapid ventricular response I48.92 Anemia D64.9
[2022-03-20] MEDS ORDERED: POTASSIUM CHLORIDE CRTAB 20 MEQ TABCR PO STA (12:33)
--- NOTE | 2022-03-20 13:00 | Hospitalist Progress Note ---
Date of Service March 20, 2022 Assessment & Plan (1) UTI (urinary tract infection): Plan: Past history of Citrobacter isolated in the urine and she is on Zosyn, day 3. Cultures growing gram positive, full characterization pending White blood cell count however has trended down and she has no fever. BP has been soft, will continue intermittent fluid bolus check Serum lactate, CRP (2) Acute confusion: Plan: Now resolved, patient at baseline was probably metabolic encephalopathy with multifactorial etiology. UTI, dehydtration. No brain metastases seen on brain MRI completed October of this year. (3) Pulmonary embolism: Plan: Pulmonary embolism diagnosed February 18 being treated with apixaban therapy. (4) Atrial flutter with rapid ventricular response: Plan: Patient had ablation sometime ago HR has been flipping to the upper 100's Will consult cardiology (5) Anemia: Plan: Appears to be chronic. No overt GI bleeding. Will follow. Serial labs. (6) Lower extremity edema: Plan: Bilateral leg edema encourage lynn wrap, compression stockings On Lasix 40mg daily (7) Chronic respiratory failure with hypoxia: Plan: Patient continues on umeclidinium, fluticasone vilanterol all and as needed albuterol/ipratropium. Stable. Typically on 2 L of oxygen at home chronically (8) Diabetes mellitus, type 2: Plan: ADA diet. Sliding scale coverage as needed. Metformin is on hold. (9) Compression fracture: Plan: Old. Stable. No acute treatment needed at this time. Continue calcium and vitamin D, recently had alendronate stopped (10) Polymyalgia rheumatica: Plan: Prednisone dependent. She received 1 dose of hydrocortisone 50mg IV on a dmission. Family stated that IV steroids may cause agitation (11) Small cell lung cancer: Plan: [facility] Her last round of treatment was in December. Her fourth cycle was not tolerated due to functional decline. Imaging of her chest does not show any increase in size of the tumor. Imaging of her abdomen does not show any additional concern for metastatic disease at this time (12) Hypomagnesemia: Plan: Corrected (13) Acute dehydration: Plan: Due to poor oral intake. Megestrol has been added to address her appetite and IV fluids have been ordered. Will monitor intake and output Plan CODE STATUS: Patient wishes to be full code at this time Disposition: To be determined Admission and Anticipated Discharge Date Admission Date: March 18, 2022 Subjective patient seen and examined, no new complaints, denies SOB or chest pain, alert nd oriented x 3 Review of Systems Review of Systems: All systems reviewed are negative, apart from the ones contained in the history. Physical Exam Physical Exam: The patient is awake, alert and oriented 3, well developed and well nourished, normocephalic and atraumatic, lying in bed and in no acute distress. HEENT--PERRL, EOMI, mucous membranes and oropharynx mildly dry Neck--supple. No JVD. No bruits. Thyroid normal, trachea midline, no adenopathy. Heart--normal S1 and S2. No murmurs, rubs or gallops. Lungs--clear bilaterally, no respiratory distress, no accessory muscle use. Abdomen--normal bowel sounds and soft. Mild epigastric and left sided abdominal pain Extremities--no cyanosis or clubbing. bilateral leg edema Dermatologic--normal skin turgor, normal color, no abnormal lymph nodes, no rash. Neurologic--cranial nerves II through XII grossly intact. Rheumatologic--normal range of motion. Psychiatric--normal affect. Results & Data Results & Data ([facility]) Vital Signs (Past 12 Hours) Vital Signs Temp Pulse Pulse Resp BP Pulse Ox O2 Del Method 03/20/22 11:38 97.2 F L 115 H 90/57 L 97 Nasal Cannula 03/20/22 11:16 100 03/20/22 10:36 97.9 F 110 H 13 87/56 L 98 Nasal Cannula 03/20/22 08:16 97.5 F L 98 H 20 111/67 90 Room Air 03/20/22 03:26 97.7 F 67 16 118/65 96 Nasal Cannula 03/20/22 01:45 03/20/22 01:43 91 H O2 Flow Rate 03/20/22 11:38 2 03/20/22 11:16 03/20/22 10:36 2 03/20/22 08:16 03/20/22 03:26 2 03/20/22 01:45 2 03/20/22 01:43 PG Care Time/CCT Total # of Minutes Spent Total Time Spent with Patient: Total time spent is greater than 50% in coordination of care (as documented) at patient's floor/unit and/or counseling patient: Coding Level of Care Code 46702 Subseq Hosp Care Lvl 2 Diagnoses UTI (urinary tract infection) N39.0 Acute confusion R41.0 Pulmonary embolism I26.99 Atrial flutter with rapid ventricular response I48.92 Anemia D64.9 Lower extremity edema R60.0 Chronic respiratory failure with hypoxia J96.11 Diabetes mellitus, type 2 E11.9 Compression fracture Polymyalgia rheumatica M35.3 Small cell lung cancer C34.90 Hypomagnesemia E83.42 Acute dehydration E86.0 Time Spent (min) 35
[2022-03-20] MEDS ORDERED: POTASSIUM CHLORIDE 20 MEQ/15 ML UDC PO STA (13:05)
[2022-03-20] MEDS: OLANZAPINE 2.5 MG TAB PO SCH (21:34)
[2022-03-20] MEDS: FOLIC ACID 1 MG TAB PO SCH (21:34)
[2022-03-21] MEDS: PIPERACILLIN/TAZOBACTAM 3.375 GM in DEXTROSE 5% 100 ML IV SCH ×3 (05:54→21:43)
[2022-03-21 06:30] LABS: Hematocrit (blood only) 23.3 % (34.1-44.9); Hemoglobin 7.4 g/dl (12.0-16.0); Mean Corpuscular Hemoglobin 30.5 pg (25.0-34.0); Mean Corpuscular Hgb Conc 31.8 g/dL (32.0-36.0); Mean Corpuscular Volume 95.9 fL (80.0-100.0); Mean Platelet Volume 9.4 fL (9.4-12.3); Platelet Count 214 K/uL (130-400); RDW Coefficient of Variation 18.7 % (11.5-14.5); Red Blood Count 2.43 M/uL (3.93-5.22); White Blood Count 7.62 K/ul (4.8-10.8)
[2022-03-21 07:04] LABS: BUN Creatinine Ratio 15.3 (10-20); Calcium 7.4 mg/dl (8.5-10.1); Creatinine Clr Calc Pharmacy 60.9 ml/min; Est GFR (Non-African American) 80.2 ml/min; Magnesium 1.5 mg/dl (1.7-2.4); Potassium 3.1 mmol/L (3.5-5.1)
[2022-03-21] MEDS: PANTOprazole 40 MG TAB PO SCH ×2 (08:23→21:40)
[2022-03-21] MEDS: APIXABAN 5 MG TABLET PO SCH ×2 (08:23→21:39)
[2022-03-21] MEDS: MEGESTROL ACETATE 40 MG TAB PO SCH ×2 (08:23→21:39)
[2022-03-21] MEDS: predniSONE 10 MG TABLET PO SCH (08:24)
[2022-03-21] MEDS: CYANOCOBALAMIN (B-12) 500 MCG TABLET PO SCH (08:24)
[2022-03-21] MEDS: DOCUSATE SODIUM 100 MG CAP PO SCH ×2 (08:24→21:40)
[2022-03-21] MEDS: FLUTICASONE/VILANTEROL 100/25MCG 14 PUFFS/INHALER INH SCH (08:25)
[2022-03-21] MEDS: CHOLECALCIFEROL 1,000 UNITS 25 MCG TAB PO SCH (08:25)
[2022-03-21] MEDS: UMECLIDINIUM BROMIDE 62.5MCG/BLISTER 7 PUFFS/INHALER INH SCH (08:25)
[2022-03-21] MEDS: POLYETHYLENE (MIRALAX) 17 GM PACK PO SCH (08:26)
[2022-03-21] MEDS: INSULIN ASPART PER UNIT SC SCH ×4 (08:29→21:40)
[2022-03-21] MEDS: SODIUM CHLORIDE 0.9% 1000ML 1,000 ML IV SCH (10:39)
[2022-03-21] MEDS: MIDODRINE HCL 2.5 MG TAB PO SCH ×2 (11:27→16:46)
[2022-03-21] MEDS ORDERED: POTASSIUM CHLORIDE 20 MEQ/15 ML UDC PO STA (12:13)
--- NOTE | 2022-03-21 12:33 | Hospitalist Progress Note ---
Date of Service March 21, 2022 Assessment & Plan (1) UTI (urinary tract infection): Plan: Past history of Citrobacter isolated in the urine and she is on Zosyn, day 4. Cultures growing gram positive, full characterization pending White blood cell count however has trended down and she has no fever. BP has been soft, will continue intermittent fluid bolus check Serum lactate, CRP (2) Acute confusion: Plan: Now resolved, patient at baseline was probably metabolic encephalopathy with multifactorial etiology. UTI, dehydtration. No brain metastases seen on brain MRI completed October of this year. (3) Pulmonary embolism: Plan: Pulmonary embolism diagnosed February 18 being treated with apixaban therapy. (4) Atrial flutter with rapid ventricular response: Plan: Patient had ablation sometime ago HR has been flipping to the upper 100's Per cardiology, no need for beta joellen in view of well controlled ventricular rate and also boderline low BP (5) Anemia: Plan: Appears to be chronic. No overt GI bleeding. Will follow. Serial labs. (6) Lower extremity edema: Plan: Trace Bilateral leg edema encourage lynn wrap, compression stockings On Lasix 40mg daily (7) Chronic respiratory failure with hypoxia: Plan: Patient continues on umeclidinium, fluticasone vilanterol all and as needed albuterol/ipratropium. Stable. Typically on 2 L of oxygen at home chronically (8) Diabetes mellitus, type 2: Plan: ADA diet. Sliding scale coverage as needed. Metformin is on hold. (9) Compression fracture: Plan: Old. Stable. No acute treatment needed at this time. Continue calcium and vitamin D, recently had alendronate stopped (10) Polymyalgia rheumatica: Plan: Prednisone dependent. She received 1 dose of hydrocortisone 50mg IV on admission. Family stated that IV steroids may cause agitation (11) Small cell lung cancer: Plan: [facility] Her last round of treatment was in December. Her fourth cycle was not tolerated due to functional decline. Imaging of her chest does not show any increase in size of the tumor. Imaging of her abdomen does not show any additional concern for metastatic disease at this time (12) Hypomagnesemia: Plan: Corrected (13) Acute dehydration: Plan: Due to poor oral intake. Megestrol has been added to address her appetite and IV fluids have been ordered. Will monitor intake and output Plan CODE STATUS: Patient wishes to be full code at this time Disposition: SNf placement when accepted Admission and Anticipated Discharge Date Admission Date: March 18, 2022 Subjective patient seen and examined, no new complaints, denies SOB or chest pain, awaiting placement Review of Systems Review of Systems: All systems reviewed are negative, apart from the ones contained in the history. Physical Exam Physical Exam: The patient is awake, alert and oriented 3, well developed and well nourished, normocephalic and atraumatic, lying in bed and in no acute distress. HEENT--PERRL, EOMI, mucous membranes and oropharynx mildly dry Neck--supple. No JVD. No bruits. Thyroid normal, trachea midline, no adenopathy. Heart--normal S1 and S2. No murmurs, rubs or gallops. Lungs--clear bilaterally, no respiratory distress, no accessory muscle use. Abdomen--normal bowel sounds and soft. Mild epigastric and left sided abdominal pain Extremities--no cyanosis or clubbing. bilateral leg edema Dermatologic--normal skin turgor, normal color, no abnormal lymph nodes, no rash. Neurologic--cranial nerves II through XII grossly intact. Rheumatologic--normal range of motion. Psychiatric--normal affect. Results & Data Results & Data ([facility]) Vital Signs (Past 12 Hours) Vital Signs Temp Pulse Resp BP Pulse Ox O2 Del Method O2 Flow Rate 03/21/22 12:00 97.5 F L 89 18 99/69 L 98 Nasal Cannula 2 03/21/22 10:54 97.3 F L 98 H 18 90/52 L 96 Nasal Cannula 2 03/21/22 10:03 Nasal Cannula 2 03/21/22 07:11 97.5 F L 97 H 16 117/76 97 Nasal Cannula 2 03/21/22 02:28 97.7 F 86 17 112/69 99 Nasal Cannula 2 PG Care Time/CCT Total # of Minutes Spent Total Time Spent with Patient: Total time spent is greater than 50% in coordination of care (as documented) at patient's floor/unit and/or counseling patient: Coding Level of Care Code 47875 Subseq Hosp Care Lvl 2 Diagnoses UTI (urinary tract infection) N39.0 Acute confusion R41.0 Pulmonary embolism I26.99 Atrial flutter with rapid ventricular response I48.92 Anemia D64.9 Lower extremity edema R60.0 Chronic respiratory failure with hypoxia J96.11 Diabetes mellitus, type 2 E11.9 Compression fracture Polymyalgia rheumatica M35.3 Small cell lung cancer C34.90 Hypomagnesemia E83.42 Acute dehydration E86.0 Time Spent (min) 35
--- NOTE | 2022-03-21 17:38 | Cardiology Progress Note ---
Date of Service March 21, 2022 Assessment & Plan (1) Paroxysmal atrial fibrillation: (2) Mitral regurgitation: (3) Tachycardia: (4) Anticoagulant long-term use: (5) S/P ablation of atrial flutter: (6) Atrial flutter with rapid ventricular response: (7) Anemia: Plan ASSESSMENT/PLAN: 1. Paroxysmal atrial fibrillation: Was having short runs of atrial fibrillation with RVR at times. No atrial fibrillation noted today on telemetry. If blood pressure stabilizes (continues to have intermittent hypotension), would consider low-dose beta-joellen. AFib improved today and may have been related to her UTI and other comorbidities. If she becomes significantly tachycardic with recurrent AFib, could also consider digoxin if blood pressure does not allow for beta-joellen. She is already on anticoagulation therapy for recent pulmonary embolism. If no contraindication, can continue anticoagulation for stroke risk reduction. 2. Atrial flutter s/p flutter ablation: Performed by Dr. Dupree in January 2022. No obvious atrial flutter noted on telemetry. 3. Mitral regurgitation: Nonsevere. Can be monitored as an outpatient. 4. Cardiomyopathy: Mildly reduced LV systolic function on 02/03/2022 in the setting of atrial flutter with rapid ventricular response. Can repeat an echo as an outpatient. Tachycardia very possible etiology. 5. Sinus tachycardia: Has been known to have sinus tachycardia. Multiple comorbidities. Heart rate currently reasonable. 6. Anticoagulation therapy: Currently on anticoagulation therapy for pulmonary embolism in January 2022. Also indicated for stroke risk reduction for A. fib. 7. Anemia: As per primary hospitalist service. No obvious bleeding. Hemoglobin dropped today. Will defer to hospitalist service. 8. Chronic respiratory failure with hypoxia: Uses supplemental oxygen at home. She does not appear to be significantly hypervolemic and was felt to be hypovolemic on presentation by the hospitalist service. Uses Lasix 40 mg once daily at home. Would consider resuming home dose of Lasix when appropriate. 9. Fluid status: Would be cautious with continuous IV fluids so as not to cause hypervolemia. 10. Hypotension: Her hypotension seems to intermittent, mild, and asymptomatic. She also has been placed on midodrine by the primary hospitalist service. 11. Disposition: Cardiology will sign off at this time. Please call with any other questions or concerns. On discharge, follow-up with Dr. Dupree, her primary process checker. Patient care communicated with primary hospitalist, Dr. Landers. Admission and Anticipated Discharge Date Admission Date: March 18, 2022 Subjective Patient seen this afternoon. She denies chest pain, shortness of breath, palpitations, syncope, or lightheadedness. She was out of bed today for 4 hours and tolerated it well. She denies orthopnea. She was alone in her hospital room. Physical Exam Physical Exam: Gen.: No acute distress. Alert and oriented. HEENT: Anicteric sclera. Neck: No significant JVD. Cardiac: No ventricular heave. Regular. Normal S1-S2. No murmurs, rubs, or gallops. Pulmonary: Decreased breath sounds at the left base, otherwise clear to auscultation bilaterally without wheezes, rales, or rhonchi. Abdomen: Soft, nontender, nondistended, with normoactive bowel sounds. No bruits noted. Extremities: 2+ radial pulses bilaterally. 2+ posterior tibialis pulses bilaterally. 1+ bilateral pedal edema. No cyanosis. Psychiatric: Affect appears appropriate. Results & Data ([facility]) Vital Signs (Past 12 Hours) Vital Signs Temp Pulse Resp BP Pulse Ox O2 Del Method O2 Flow Rate 03/21/22 15:34 36.4 C L 109 H 18 101/63 96 Nasal Cannula 2 03/21/22 14:27 36.3 C L 115 H 18 105/58 L 98 Nasal Cannula 2 03/21/22 12:00 36.4 C L 89 18 99/69 L 98 Nasal Cannula 2 03/21/22 10:54 36.3 C L 98 H 18 90/52 L 96 Nasal Cannula 2 03/21/22 10:03 Nasal Cannula 2 03/21/22 07:11 36.4 C L 97 H 16 117/76 97 Nasal Cannula 2 Intake & Output 03/19/22 03/20/22 03/21/22 03/22/22 06:59 06:59 06:59 06:59 Intake Total 2746 / 2746 1326 / 1326 2905 / 2905 1320 / 1320 Output Total Balance 2746 / 2746 1325 / 1325 2905 / 2905 1320 / 1320 Weight 161 lb 13.109 oz 160 lb 14.999 oz 156 lb 15.506 oz Laboratory Results Laboratory Results - last 24 hr 03/20/22 03/21/22 03/21/22 20:35 05:45 05:45 WBC 7.62 RBC 2.43 L Hgb 7.4 L Hct 23.3 L MCV 95.9 MCH 30.5 MCHC 31.8 L RDW Std Deviation 66.0 H RDW Coeff of Atul 18.7 H Plt Count 214 MPV 9.4 Sodium 138 Potassium 3.1 L Chloride 107 Carbon Dioxide 28 Anion Gap 3 BUN 11 Creatinine 0.72 Est Cr Clr Drug Dosing 60.9 Est GFR ( Amer) 93.0 Est GFR (Non-Af Amer) 80.2 BUN/Creatinine Ratio 15.3 Glucose 75 POC Glucose 151 H Calcium 7.4 L Magnesium 1.5 L 03/21/22 03/21/22 03/21/22 07:41 11:50 16:51 WBC RBC Hgb Hct MCV MCH MCHC RDW Std Deviation RDW Coeff of Atul Plt Count MPV Sodium Potassium Chloride Carbon Dioxide Anion Gap BUN Creatinine Est Cr Clr Drug Dosing Est GFR ( Amer) Est GFR (Non-Af Amer) BUN/Creatinine Ratio Glucose POC Glucose 76 133 H 171 H Calcium Magnesium Diagnostic Findings Telemetry personally reviewed: Sinus rhythm and sinus tachycardia with PACs. Medications Administered Current Inpatient Medications Acetaminophen (Acetaminophen 325 Mg Tab) 650 mg PO Q4H PRN PRN Reason: Pain or Fever Stop: 04/17/22 13:28 Last Admin: 03/19/22 00:37 Dose: 650 mg Albuterol (Albut/Ipratrop 3mg/0.5mg Neb 3 Ml Vial) 3 ml INH Q6H PRN; Protocol PRN Reason: wheezing Stop: 04/17/22 13:28 Apixaban (Apixaban 5 Mg Tablet) 5 mg PO BID [facility] Stop: 04/17/22 20:59 Last Admin: 03/21/22 08:23 Dose: 5 mg Cyanocobalamin (Cyanocobalamin (B-12) 500 Mcg Tablet) 1,000 mcg PO DAILY [facility] Stop: 04/18/22 08:59 Last Admin: 03/21/22 08:24 Dose: 1,000 mcg Dextrose (Dextrose 50% 50 Ml Syringe) 25 - 50 ml IV UD PRN; Protocol PRN Reason: Hypoglycemia Protocol Stop: 04/17/22 13:28 Docusate Sodium (Docusate Sodium 100 Mg Cap) 100 mg PO BID [facility] Stop: 04/17/22 20:59 Last Admin: 03/21/22 08:24 Dose: 100 mg Fluticasone/Vilanterol (Fluticasone/Vilanterol 100/25mcg 14 Puffs/Inhaler) 1 puffs INH DAILY [facility] Stop: 04/18/22 08:59 Last Admin: 03/21/22 08:25 Dose: 1 puffs Folic Acid (Folic Acid 1 Mg Tab) 1 mg PO QPM [facility] Stop: 04/17/22 20:59 Last Admin: 03/20/22 21:34 Dose: 1 mg Glucagon (Glucagon For Inj 1 Mg Vial) 1 mg SQ UD PRN; Protocol PRN Reason: Hypoglycemia Protocol Stop: 04/17/22 13:28 Glucose (Glucose 40% Gel 15 Gm Tube) 15 - 30 gm PO UD PRN; Protocol PRN Reason: Hypoglycemia Protocol Stop: 04/17/22 13:28 Glucose (Glucose 10 Tab/Tube) 4 - 8 tab PO UD PRN; Protocol PRN Reason: Hypoglycemia Treatment Stop: 04/17/22 13:28 Haloperidol Lactate (Haloperidol Lactate 5 Mg/Ml 1 Ml Vial) 5 mg IM Q3H PRN PRN Reason: Agitation Stop: 04/18/22 15:59 Piperacillin Sod/Tazobactam (Sod 3.375 gm/ Dextrose) 115 mls @ 28.75 mls/hr IV Q8H [facility]; Protocol Stop: 03/23/22 14:14 Last Admin: 03/21/22 14:23 Dose: 28.8 mls/hr Sodium Chloride (Nss 1000ml) 1,000 mls @ 60 mls/hr IV .[id number] [facility] Stop: 04/18/22 10:44 Last Admin: 03/21/22 10:39 Dose: 60 mls/hr Insulin Aspart (Insulin Aspart Per Unit) 0 units SC ACHS [facility] Stop: 04/17/22 16:29 Last Admin: 03/21/22 17:42 Dose: 2 units Megestrol Acetate (Megestrol Acetate 40 Mg Tab) 40 mg PO BID [facility] Stop: 04/18/22 20:59 Last Admin: 03/21/22 08:23 Dose: 40 mg Midodrine (Midodrine Hcl 2.5 Mg Tab) 5 mg PO TID@0800,1200,1700 [facility] Stop: 04/20/22 11:59 Last Admin: 03/21/22 16:46 Dose: 5 mg Miscellaneous (Carbohydrates For Hypoglycemia ) 15 - 30 gm PO UD PRN PRN Reason: Hypoglycemia Protocol Stop: 04/17/22 13:28 Olanzapine (Olanzapine 2.5 Mg Tab) 2.5 mg PO HS [facility] Stop: 04/17/22 20:59 Last Admin: 03/20/22 21:34 Dose: 2.5 mg Ondansetron HCl (Ondansetron Inj 2 Mg/Ml 2 Ml Vial) 4 mg IV Q6H PRN PRN Reason: Nausea Stop: 04/17/22 13:28 Pantoprazole Sodium (Pantoprazole 40 Mg Tab) 40 mg PO BID [facility] Stop: 04/17/22 20:59 Last Admin: 03/21/22 08:23 Dose: 40 mg Polyethylene Glycol (Polyethylene (Miralax) 17 Gm Pack) 17 gm PO DAILY [facility] Stop: 04/18/22 08:59 Last Admin: 03/21/22 08:26 Dose: 17 gm Prednisone (Prednisone 10 Mg Tablet) 10 mg PO DAILY [facility] Stop: 04/18/22 08:59 Last Admin: 03/21/22 08:24 Dose: 10 mg Umeclidinium [place] (Umeclidinium [place] 62.5mcg/Blister 7 Puffs/Inhaler) 1 puffs INH DAILY [facility] Stop: 04/18/22 08:59 Last Admin: 03/21/22 08:25 Dose: 1 puffs Vitamin D (Cholecalciferol 1,000 Units 25 Mcg Tab) 1,000 units PO DAILY [facility] Stop: 04/18/22 08:59 Last Admin: 03/21/22 08:25 Dose: 1,000 units PG Care Time/CCT Total # of Minutes Spent Total Time Spent with Patient: Total time spent is greater than 50% in coordination of care (as documented) at patient's floor/unit and/or counseling patient: Coding Level of Care Code 09545 Subseq Hosp Care Lvl 3 Diagnoses Paroxysmal atrial fibrillation I48.0 Mitral regurgitation I34.0 Tachycardia R00.0 Anticoagulant long-term use Z79.01 S/P ablation of atrial flutter Z98.890; Z86.79 Atrial flutter with rapid ventricular response I48.92 Anemia D64.9
[2022-03-21] MEDS: FOLIC ACID 1 MG TAB PO SCH (21:39)
[2022-03-21] MEDS: OLANZAPINE 2.5 MG TAB PO SCH (21:40)
[2022-03-22] MEDS ORDERED: NORTRIPTYLINE HCL 25 MG CAP PO SCH (01:05)
[2022-03-22] MEDS: SODIUM CHLORIDE 0.9% 1000ML 1,000 ML IV SCH (01:38)
[2022-03-22] MEDS: PIPERACILLIN/TAZOBACTAM 3.375 GM in DEXTROSE 5% 100 ML IV SCH (07:06)
[2022-03-22 07:34] LABS: Hematocrit (blood only) 25.5 % (34.1-44.9); Hemoglobin 8.1 g/dl (12.0-16.0); Mean Corpuscular Hemoglobin 30.3 pg (25.0-34.0); Mean Corpuscular Hgb Conc 31.8 g/dL (32.0-36.0); Mean Corpuscular Volume 95.5 fL (80.0-100.0); Mean Platelet Volume 9.2 fL (9.4-12.3); Platelet Count 248 K/uL (130-400); RDW Coefficient of Variation 19.2 % (11.5-14.5); RDW Standard Deviation 66.4 fL (36.4-46.3); Red Blood Count 2.67 M/uL (3.93-5.22)
[2022-03-22 07:56] LABS: BUN Creatinine Ratio 14.3 (10-20); Calcium 7.7 mg/dl (8.5-10.1); Creatinine Clr Calc Pharmacy 72.1 ml/min; Est GFR (African American) 99.6 ml/min; Est GFR (Non-African American) 85.9 ml/min; Potassium 3.4 mmol/L (3.5-5.1)
--- NOTE | 2022-03-22 08:49 | Cardiology Progress Note ---
Date of Service March 22, 2022 Assessment & Plan (1) Paroxysmal atrial fibrillation: (2) Mitral regurgitation: (3) Tachycardia: (4) Anticoagulant long-term use: (5) S/P ablation of atrial flutter: (6) Atrial flutter with rapid ventricular response: (7) Anemia: Plan ASSESSMENT/PLAN: 1. Paroxysmal atrial fibrillation: Was having possible short runs of atrial fibrillation with RVR at times. No atrial fibrillation noted today on telemetry. Recommend low-dose beta-joellen as blood pressure tolerates. She is already on anticoagulation therapy for recent pulmonary embolism. If no contraindication, can continue anticoagulation for stroke risk reduction. 2. Atrial flutter s/p flutter ablation: Performed by Dr. Dupree in January 2022. No obvious atrial flutter noted on telemetry. 3. Mitral regurgitation: Nonsevere. Can be monitored as an outpatient. 4. Cardiomyopathy: Mildly reduced LV systolic function on 02/03/2022 in the setting of atrial flutter with rapid ventricular response. Can repeat an echo as an outpatient. Tachycardia very possible etiology. 5. Sinus tachycardia: Is known to have sinus tachycardia. Heart rates quite elevated today. Possible atrial tachycardia. Start low-dose beta-joellen. Patient is agreeable but does not want aggressive therapy. Heart rates on telemetry up into the 200s transiently. Correct electrolytes. 6. Anticoagulation therapy: Currently on anticoagulation therapy for pulmonary embolism in January 2022. Also indicated for stroke risk reduction for A. fib. 7. Anemia: As per primary hospitalist service. No obvious bleeding. Hemoglobin dropped today. Will defer to hospitalist service. 8. Chronic respiratory failure with hypoxia: Uses supplemental oxygen at home. She appears more hypervolemic today. Recommend initiation of outpatient Lasix, 40 mg daily. Recommend that negative fluid balance today. 9. Hypotension: Blood pressure normal this morning. Midodrine was started by hospitalist service. 11. Disposition: I will be away from the hospital after today. Please call on-call Cardiology for questions or concerns. On discharge, follow-up with Dr. Dupree, her primary pallet sorter. Patient care communicated with primary hospitalist, Dr. Landers. Admission and Anticipated Discharge Date Admission Date: March 18, 2022 Subjective Was called by nursing staff today that her heart rate has been elevated up to low 200s. Went to the bedside. There are P waves on telemetry but given how fast her heart rate has become, possible atrial tachycardia. Her only symptom is increased shortness of breath. No identifiable atrial fibrillation. She denies chest pain, palpitations, syncope, near-syncope. Edema has worsened. She was alone in her hospital room. Physical Exam Physical Exam: Gen.: No acute distress. Alert and oriented. HEENT: Anicteric sclera. Neck: Mild JVD. Cardiac: No ventricular heave. Regular. Tachycardic. Normal S1-S2. No murmurs, rubs, or gallops. Pulmonary: Decreased breath sounds at the left base, otherwise clear to auscultation bilaterally without wheezes, rales, or rhonchi. Abdomen: Soft, nontender, nondistended, with normoactive bowel sounds. No bruits noted. Extremities: 2+ radial pulses bilaterally. 2+ posterior tibialis pulses bilaterally. 1+ bilateral lower extremity edema. No cyanosis. Psychiatric: Affect appears appropriate. Results & Data ([facility]) Vital Signs (Past 12 Hours) Vital Signs Temp Pulse Pulse Resp BP Pulse Ox O2 Del Method 03/22/22 07:46 215 H 03/22/22 06:10 114 H 03/22/22 07:00 36.5 C 109 H 20 130/85 98 Nasal Cannula 03/22/22 03:29 36.5 C 110 H 17 127/74 98 Nasal Cannula 03/21/22 23:16 36.6 C 99 H 17 111/69 99 Room Air 03/21/22 22:18 102 H 03/21/22 21:57 Nasal Cannula O2 Flow Rate 03/22/22 07:46 03/22/22 06:10 03/22/22 07:00 2 03/22/22 03:29 2 03/21/22 23:16 03/21/22 22:18 03/21/22 21:57 2 Intake & Output 03/20/22 03/21/22 03/22/22 03/23/22 06:59 06:59 06:59 06:59 Intake Total 1326 / 1326 2905 / 2905 3049 / 3049 366 / 366 Output Total 750 / 750 Balance 1325 / 1325 2905 / 2905 2299 / 2299 366 / 366 Weight 160 lb 14.999 oz 156 lb 15.506 oz 168 lb 13.985 oz Laboratory Results Laboratory Results - last 24 hr 03/21/22 03/21/22 03/21/22 11:50 16:51 20:24 WBC RBC Hgb Hct MCV MCH MCHC RDW Std Deviation RDW Coeff of Atul Plt Count MPV Sodium Potassium Chloride Carbon Dioxide Anion Gap BUN Creatinine Est Cr Clr Drug Dosing Est GFR ( Amer) Est GFR (Non-Af Amer) BUN/Creatinine Ratio Glucose POC Glucose 133 H 171 H 96 Calcium 03/22/22 03/22/22 03/22/22 07:12 07:12 07:45 WBC 10.70 RBC 2.67 L Hgb 8.1 L Hct 25.5 L MCV 95.5 MCH 30.3 MCHC 31.8 L RDW Std Deviation 66.4 H RDW Coeff of Atul 19.2 H Plt Count 248 MPV 9.2 L Sodium 137 Potassium 3.4 L Chloride 107 Carbon Dioxide 24 Anion Gap 6 BUN 9 Creatinine 0.63 Est Cr Clr Drug Dosing 72.1 Est GFR ( Amer) 99.6 Est GFR (Non-Af Amer) 85.9 BUN/Creatinine Ratio 14.3 Glucose 81 POC Glucose 106 H Calcium 7.7 L Diagnostic Findings Telemetry personally reviewed: Sinus tachycardia. Possible atrial tachycardia. PACs. ECG personally reviewed: ECG [id number]: Sinus tachycardia PACs. Incomplete RBBB. Medications Administered Current Inpatient Medications Acetaminophen (Acetaminophen 325 Mg Tab) 650 mg PO Q4H PRN PRN Reason: Pain or Fever Stop: 04/17/22 13:28 Last Admin: 03/19/22 00:37 Dose: 650 mg Albuterol (Albut/Ipratrop 3mg/0.5mg Neb 3 Ml Vial) 3 ml INH Q6H PRN; Protocol PRN Reason: wheezing Stop: 04/17/22 13:28 Apixaban (Apixaban 5 Mg Tablet) 5 mg PO BID [facility] Stop: 04/17/22 20:59 Last Admin: 03/21/22 21:39 Dose: 5 mg Cyanocobalamin (Cyanocobalamin (B-12) 500 Mcg Tablet) 1,000 mcg PO DAILY [facility] Stop: 04/18/22 08:59 Last Admin: 03/21/22 08:24 Dose: 1,000 mcg Dextrose (Dextrose 50% 50 Ml Syringe) 25 - 50 ml IV UD PRN; Protocol PRN Reason: Hypoglycemia Protocol Stop: 04/17/22 13:28 Docusate Sodium (Docusate Sodium 100 Mg Cap) 100 mg PO BID [facility] Stop: 04/17/22 20:59 Last Admin: 03/21/22 21:40 Dose: 100 mg Fluticasone/Vilanterol (Fluticasone/Vilanterol 100/25mcg 14 Puffs/Inhaler) 1 puffs INH DAILY [facility] Stop: 04/18/22 08:59 Last Admin: 03/21/22 08:25 Dose: 1 puffs Folic Acid (Folic Acid 1 Mg Tab) 1 mg PO QPM [facility] Stop: 04/17/22 20:59 Last Admin: 03/21/22 21:39 Dose: 1 mg Glucagon (Glucagon For Inj 1 Mg Vial) 1 mg SQ UD PRN; Protocol PRN Reason: Hypoglycemia Protocol Stop: 04/17/22 13:28 Glucose (Glucose 40% Gel 15 Gm Tube) 15 - 30 gm PO UD PRN; Protocol PRN Reason: Hypoglycemia Protocol Stop: 04/17/22 13:28 Glucose (Glucose 10 Tab/Tube) 4 - 8 tab PO UD PRN; Protocol PRN Reason: Hypoglycemia Treatment Stop: 04/17/22 13:28 Haloperidol Lactate (Haloperidol Lactate 5 Mg/Ml 1 Ml Vial) 5 mg IM Q3H PRN PRN Reason: Agitation Stop: 04/18/22 15:59 Piperacillin Sod/Tazobactam (Sod 3.375 gm/ Dextrose) 115 mls @ 28.75 mls/hr IV Q8H [facility]; Protocol Stop: 03/23/22 14:14 Last Admin: 03/22/22 07:06 Dose: 28.8 mls/hr Insulin Aspart (Insulin Aspart Per Unit) 0 units SC ACHS [facility] Stop: 04/17/22 16:29 Last Admin: 03/22/22 09:06 Dose: Not Given Megestrol Acetate (Megestrol Acetate 40 Mg Tab) 40 mg PO BID [facility] Stop: 04/18/22 20:59 Last Admin: 03/21/22 21:39 Dose: 40 mg Metoprolol Tartrate (Metoprolol Tartrate 25 Mg Tab) 25 mg PO BID [facility] Stop: 04/21/22 08:59 Midodrine (Midodrine Hcl 2.5 Mg Tab) 5 mg PO TID@0800,1200,1700 [facility] Stop: 04/20/22 11:59 Last Admin: 03/21/22 16:46 Dose: 5 mg Miscellaneous (Carbohydrates For Hypoglycemia ) 15 - 30 gm PO UD PRN PRN Reason: Hypoglycemia Protocol Stop: 04/17/22 13:28 Nortriptyline HCl (Nortriptyline Hcl 25 Mg Cap) 25 mg PO HS [facility] Stop: 04/21/22 01:04 Last Admin: 03/22/22 01:37 Dose: 25 mg Olanzapine (Olanzapine 2.5 Mg Tab) 2.5 mg PO HS [facility] Stop: 04/17/22 20:59 Last Admin: 03/21/22 21:40 Dose: 2.5 mg Ondansetron HCl (Ondansetron Inj 2 Mg/Ml 2 Ml Vial) 4 mg IV Q6H PRN PRN Reason: Nausea Stop: 04/17/22 13:28 Pantoprazole Sodium (Pantoprazole 40 Mg Tab) 40 mg PO BID [facility] Stop: 04/17/22 20:59 Last Admin: 03/21/22 21:40 Dose: 40 mg Polyethylene Glycol (Polyethylene (Miralax) 17 Gm Pack) 17 gm PO DAILY [facility] Stop: 04/18/22 08:59 Last Admin: 03/21/22 08:26 Dose: 17 gm Prednisone (Prednisone 10 Mg Tablet) 10 mg PO DAILY [facility] Stop: 04/18/22 08:59 Last Admin: 03/21/22 08:24 Dose: 10 mg Umeclidinium [place] (Umeclidinium [place] 62.5mcg/Blister 7 Puffs/Inhaler) 1 puffs INH DAILY [facility] Stop: 04/18/22 08:59 Last Admin: 03/21/22 08:25 Dose: 1 puffs Vitamin D (Cholecalciferol 1,000 Units 25 Mcg Tab) 1,000 units PO DAILY [facility] Stop: 04/18/22 08:59 Last Admin: 03/21/22 08:25 Dose: 1,000 units PG Care Time/CCT Total # of Minutes Spent Total Time Spent with Patient: Total time spent is greater than 50% in coordination of care (as documented) at patient's floor/unit and/or counseling patient: Coding Level of Care Code 06016 Subseq Hosp Care Lvl 3 Diagnoses Paroxysmal atrial fibrillation I48.0 Mitral regurgitation I34.0 Tachycardia R00.0 Anticoagulant long-term use Z79.01 S/P ablation of atrial flutter Z98.890; Z86.79 Atrial flutter with rapid ventricular response I48.92 Anemia D64.9
[2022-03-22] MEDS ORDERED: METOPROLOL TARTRATE 25 MG TAB PO SCH (09:00)
[2022-03-22] MEDS: INSULIN ASPART PER UNIT SC SCH ×3 (09:06→17:43)
[2022-03-22] MEDS: DOCUSATE SODIUM 100 MG CAP PO SCH (09:28)
[2022-03-22] MEDS: PANTOprazole 40 MG TAB PO SCH (09:28)
[2022-03-22] MEDS: MIDODRINE HCL 2.5 MG TAB PO SCH ×3 (09:29→17:17)
[2022-03-22] MEDS: CHOLECALCIFEROL 1,000 UNITS 25 MCG TAB PO SCH (09:29)
[2022-03-22] MEDS: predniSONE 10 MG TABLET PO SCH (09:29)
[2022-03-22] MEDS: MEGESTROL ACETATE 40 MG TAB PO SCH (09:29)
[2022-03-22] MEDS: CYANOCOBALAMIN (B-12) 500 MCG TABLET PO SCH (09:29)
[2022-03-22] MEDS: APIXABAN 5 MG TABLET PO SCH (09:29)
[2022-03-22] MEDS: FLUTICASONE/VILANTEROL 100/25MCG 14 PUFFS/INHALER INH SCH (09:30)
[2022-03-22] MEDS: UMECLIDINIUM BROMIDE 62.5MCG/BLISTER 7 PUFFS/INHALER INH SCH (09:30)
[2022-03-22] MEDS: POLYETHYLENE (MIRALAX) 17 GM PACK PO SCH (09:31)
[2022-03-22] MEDS ORDERED: FUROSEMIDE 40 MG TAB PO ONE (11:00)
[2022-03-22 11:14] VITALS: O2SAT 97
--- NOTE | 2022-03-22 12:27 | Hospitalist Progress Note ---
Date of Service March 22, 2022 Assessment & Plan (1) UTI (urinary tract infection): Plan: Past history of Citrobacter isolated in the urine on 03/13, completed 5 days of Zosyn -Currently on PO Ciprofloxacin 500mg daily for 5 more days Cultures growing gram positive, likely contaminant, no sensitivities to follow White blood cell count however has trended down and she has no fever. BP has been soft, will continue intermittent fluid bolus check Serum lactate, CRP (2) Acute confusion: Plan: Now resolved, patient at baseline was probably metabolic encephalopathy with multifactorial etiology. UTI, dehydtration. No brain metastases seen on brain MRI completed October of this year. (3) Pulmonary embolism: Plan: Pulmonary embolism diagnosed February 18 being treated with apixaban therapy. (4) Atrial flutter with rapid ventricular response: Plan: Patient had ablation sometime ago HR has been flipping to the upper 100's Per cardiology, started low dose metoprolol 25mg BID already anticoagulated with Apixaban (5) Anemia: Plan: Appears to be chronic. No overt GI bleeding. Will follow. Serial labs. (6) Lower extremity edema: Plan: Trace Bilateral leg edema encourage lynn wrap, compression stockings On Lasix 40mg daily (7) Chronic respiratory failure with hypoxia: Plan: Patient continues on umeclidinium, fluticasone vilanterol all and as needed albuterol/ipratropium. Stable. Typically on 2 L of oxygen at home chronically (8) Diabetes mellitus, type 2: Plan: ADA diet. Sliding scale coverage as needed. Metformin is on hold. (9) Compression fracture: Plan: Old. Stable. No acute treatment needed at this time. Continue calcium and vitamin D, recently had alendronate stopped (10) Polymyalgia rheumatica: Plan: Prednisone dependent. She received 1 dose of hydrocortisone 50mg IV on admission. Family stated that IV steroids may cause agitation (11) Small cell lung cancer: Plan: [facility] Her last round of treatment was in . Her fourth cycle was not tolerated due to functional decline. Imaging of her chest does not show any increase in size of the tumor. Imaging of her abdomen does not show any additional concern for metastatic disease at this time (12) Hypomagnesemia: Plan: Corrected (13) Acute dehydration: Plan: Due to poor oral intake. Megestrol has been added to address her appetite and IV fluids have been ordered. Will monitor intake and output Plan CODE STATUS: Patient wishes to be full code at this time Disposition: SNf placement when accepted Admission and Anticipated Discharge Date Admission Date: March 18, 2022 Subjective patient seen and examined, heart rate now under better control, denies chest pain Review of Systems Review of Systems: All systems reviewed are negative, apart from the ones contained in the history. Physical Exam Physical Exam: The patient is awake, alert and oriented 3, well developed and well nourished, normocephalic and atraumatic, lying in bed and in no acute distress. HEENT--PERRL, EOMI, mucous membranes and oropharynx mildly dry Neck--supple. No JVD. No bruits. Thyroid normal, trachea midline, no adenopathy. Heart--normal S1 and S2. No murmurs, rubs or gallops. Lungs--clear bilaterally, no respiratory distress, no accessory muscle use. Abdomen--normal bowel sounds and soft. Mild epigastric and left sided abdominal pain Extremities--no cyanosis or clubbing. trace bilateral leg edema Dermatologic--normal skin turgor, normal color, no abnormal lymph nodes, no rash. Neurologic--cranial nerves II through XII grossly intact. Rheumatologic--normal range of motion. Psychiatric--normal affect. Results & Data Results & Data ([facility]) Vital Signs (Past 12 Hours) Vital Signs Temp Pulse Pulse Resp BP Pulse Ox O2 Del Method 03/22/22 11:00 97.5 F L 87 20 139/79 97 Room Air 03/22/22 10:36 Nasal Cannula 03/22/22 07:46 215 H 03/22/22 06:10 114 H 03/22/22 07:00 97.7 F 109 H 20 130/85 98 Nasal Cannula 03/22/22 03:29 97.7 F 110 H 17 127/74 98 Nasal Cannula O2 Flow Rate 03/22/22 11:00 03/22/22 10:36 2 03/22/22 07:46 03/22/22 06:10 03/22/22 07:00 2 03/22/22 03:29 2 PG Care Time/CCT Total # of Minutes Spent Total Time Spent with Patient: Total time spent is greater than 50% in coordination of care (as documented) at patient's floor/unit and/or counseling patient: Coding Level of Care Code 48209 Subseq Hosp Care Lvl 2 Diagnoses UTI (urinary tract infection) N39.0 Acute confusion R41.0 Pulmonary embolism I26.99 Atrial flutter with rapid ventricular response I48.92 Anemia D64.9 Lower extremity edema R60.0 Chronic respiratory failure with hypoxia J96.11 Diabetes mellitus, type 2 E11.9 Compression fracture Polymyalgia rheumatica M35.3 Small cell lung cancer C34.90 Hypomagnesemia E83.42 Acute dehydration E86.0 Time Spent (min) 35
[2022-03-22 14:57] VITALS: BP 102/63; TEMP 97.9
--- NOTE | 2022-03-22 17:30 | Discharge Summary ---
Date of Service March 22, 2022 Admission HPI Per Admitting Provider The patient is a 76-year-old female who was recently diagnosed with a Citrobacter UTI. She was placed on Cipro which, according to her urine culture, should be effective. ( did have enterococcal uti in 02/18 resistent to cipro) She believes she has been on Cipro for several days. Repeat culture on presentation Clinically the ER physician feels the pt is dehydrated with dry mucus membranes and sinus tachycardia There has been no fever, no shortness of breath, no cough or cold or congestion. No vomiting. As per the home health staff, the patient was a bit confused this morning, the decision was made to send her to the ER for evaluation. Of note, the patient does have a history of breast bladder and lung cancer, She recieved chemotherapy in the fall, not completing the 4 cycle due to poor tolerance and was diagnosed with PE in january continues on anticoagulation therapy She is mildly anemic on presentation, stool trace heme pos. Principal Diagnosis UTI Discharge Exam The patient is awake, alert and oriented 3, well developed and well nourished, normocephalic and atraumatic, lying in bed and in no acute distress. HEENT--PERRL, EOMI, mucous membranes and oropharynx mildly dry Neck--supple. No JVD. No bruits. Thyroid normal, trachea midline, no adenopathy. Heart--normal S1 and S2. No murmurs, rubs or gallops. Lungs--clear bilaterally, no respiratory distress, no accessory muscle use. Abdomen--normal bowel sounds and soft. Mild epigastric and left sided abdominal pain Extremities--no cyanosis or clubbing. trace bilateral leg edema Dermatologic--normal skin turgor, normal color, no abnormal lymph nodes, no rash. Neurologic--cranial nerves II through XII grossly intact. Rheumatologic--normal range of motion. Psychiatric--normal affect. Discharge Data Allergies Allergy/AdvReac Type Severity Reaction Status Date / Time castor oil Allergy Severe "TAXANES" Verified 03/18/22 10:04 CAUSE DYSPNEA, RASH, ELEVATED BP docetaxel [From Taxotere] Allergy Severe "TAXANES" Verified 03/18/22 10:04 CAUSE DYSPNEA, RASH, ELEVATED BP paclitaxel Allergy Severe "TAXANES" Verified 03/18/22 10:04 CAUSE DYSPNEA, RASH, ELEVATED BP trimethoprim [From Bactrim] Allergy Severe Anaphylaxis Verified 03/18/22 10:04 Iodinated Contrast Media Allergy Intermediate HIVES/ITCHI Verified 03/18/22 10:04 NG nitrofurantoin Allergy Intermediate CHEST Verified 03/18/22 10:04 PAIN, DYSPNEA Sulfa (Sulfonamide Allergy Intermediate HIVES, Verified 03/18/22 10:04 Antibiotics) ITCHINESS, SHORTNESS OF BREATH phenazopyridine AdvReac Intermediate N/V Verified 03/18/22 10:04 codeine AdvReac COLD Verified 03/18/22 10:04 SWEAT, THINGS START SPINNING, NAUSEA Consultations 03/18/22 11:13 ED Decision to Admit Stat 03/20/22 08:37 Consult Cardiology Routine Ordered Studies 03/18/22 09:53 CT abd pelvis wo con Stat Hospital Course (1) UTI (urinary tract infection): Past history of Citrobacter isolated in the urine on 03/13, completed 5 days of Zosyn -Currently on PO Ciprofloxacin 500mg daily for 5 more days Cultures growing gram positive, likely contaminant, no sensitivities to follow White blood cell count however has trended down and she has no fever. BP has been soft, will continue intermittent fluid bolus check Serum lactate, CRP (2) Acute confusion: Now resolved, patient at baseline was probably metabolic encephalopathy with multifactorial etiology. UTI, dehydtration. No brain metastases seen on brain MRI completed October of this year. (3) Pulmonary embolism: Pulmonary embolism diagnosed February 18 being treated with apixaban therapy. (4) Atrial flutter with rapid ventricular response: Patient had ablation sometime ago HR has been flipping to the upper 100's Per cardiology, started low dose metoprolol 25mg BID already anticoagulated with Apixaban (5) Anemia: Appears to be chronic. No overt GI bleeding. Will follow. Serial labs. (6) Lower extremity edema: Trace Bilateral leg edema encourage lynn wrap, compression stockings On Lasix 40mg daily (7) Chronic respiratory failure with hypoxia: Patient continues on umeclidinium, fluticasone vilanterol all and as needed albuterol/ipratropium. Stable. Typically on 2 L of oxygen at home chronically (8) Diabetes mellitus, type 2: ADA diet. Sliding scale coverage as needed. Metformin is on hold. (9) Compression fracture: Old. Stable. No acute treatment needed at this time. Continue calcium and vitamin D, recently had alendronate stopped (10) Polymyalgia rheumatica: Prednisone dependent. She received 1 dose of hydrocortisone 50mg IV on admission. Family stated that IV steroids may cause agitation (11) Small cell lung cancer: treated with [facility]. Her last round of treatment was in December. Her fourth cycle was not tolerated due to functional decline. Imaging of her chest does not show any increase in size of the tumor. Imaging of her abdomen does not show any additional concern for metastatic disease at this time (12) Hypomagnesemia: Corrected (13) Acute dehydration: Due to poor oral intake. Megestrol has been added to address her appetite and IV fluids have been ordered. Will monitor intake and output Plan CODE STATUS: Patient wishes to be full code at this time Disposition: home with home health and home PT Total Time Total Time Spent Total Time Spent (In Minutes): 35 Discharge Plan Discharge Items Patient Disposition: Home - Home Health Services Reason For Visit: URINARY SYMPTOMS Discharge Diagnosis: UTI, a flutter Condition on Discharge: Fair Activity: Resume your previous activity Non-emergency contact: Primary Care Provider, Community Marketing Manager and Oncologist Call non-emergency contact if: you have any medication questions Follow-up/Referrals: Lion Dupree MD [Physician] - 04/18/22 2:15 pm Katherine Ceja MD [Primary Care Provider] - Diet: Regular Addtl Attending Provider Instructions: please make appointment to follow up with your doctors Pending Studies at Discharge: No Stand-Alone Forms: My [employer], Smoking Cessation Medications and DC Order Prescriptions: New metoprolol tartrate 25 mg Tablet 25 mg PO BID 30 Days Qty: 60 0RF ciprofloxacin HCl 500 mg Tablet 500 mg PO DAILY 5 Days Qty: 5 0RF midodrine 2.5 mg Tablet 5 mg PO TID@0800,1200,1700 30 Days Qty: 90 0RF Continued mecobalamin (vitamin B12) 1,000 mcg tablet,disintegrating 1,000 mcg sublingual DAILY Rx Instructions: place tablet under tongue and allow to dissolve for at least30 secs before swallowing cholecalciferol (vitamin D3) 25 mcg (1,000 unit) capsule 25 mcg PO DAILY furosemide [Lasix] 20 mg tablet 40 mg PO QAM metformin 850 mg tablet 850 mg PO BID nortriptyline 25 mg capsule 25 mg PO HS Qty: 90 3RF folic acid 1 mg tablet 1 mg PO QPM Qty: 30 3RF (DME) nebulizers Misc See Rx Instructions .Route Qty: 1 0RF Rx Instructions: nebulizer and nebulizer kits/supplies ANNALISA-99 Incruse Ellipta 62.5 mcg/actuation blister with device 1 inh inhalation DAILY Qty: 30 2RF fluticasone furoate-vilanterol [Breo Ellipta] 100-25 mcg/dose blister with d evice 1 inh inhalation DAILY Qty: 60 2RF ipratropium-albuterol 0.5 mg-3 mg(2.5 mg base)/3 mL solution for nebulization 3 ml inhalation Q6H PRN (Reason: wheezing) Qty: 360 1RF polyethylene glycol 3350 [Miralax] 17 gram/dose powder 17 g PO DAILY Qty: 238 0RF docusate sodium [Colace] 100 mg capsule 100 mg PO BID Qty: 60 0RF olanzapine 2.5 mg tablet 2.5 mg PO HS omeprazole 40 mg capsule,delayed release(DR/EC) 40 mg PO QPM potassium chloride [Klor-Con M20] 20 mEq tablet,ER particles/crystals 20 meq PO BID prednisone 10 mg tablet 10 mg PO DAILY Eliquis 5 mg Tablet 5 mg PO BID Qty: 60 0RF Discharge Orders: Discharge Order (Routine); Ordered 03/22/22 Ordered By: Karl Landers Admission Data Admit Date/Time: 03/18/22 11:40 Attending Provider: Karl Landers Admit Provider: Bryant Campbell Primary Care Provider: Katherine Ceja Other Providers: Bryant Campbell ; [facility] ; Lion Dupree Coding Level of Care Code D/C DAY MANAGEMENT >30 MINS Diagnoses UTI (urinary tract infection) N39.0 Acute confusion R41.0 Pulmonary embolism I26.99 Atrial flutter with rapid ventricular response I48.92 Anemia D64.9 Lower extremity edema R60.0 Chronic respiratory failure with hypoxia J96.11 Diabetes mellitus, type 2 E11.9 Compression fracture Polymyalgia rheumatica M35.3 Small cell lung cancer C34.90 Hypomagnesemia E83.42 Acute dehydration E86.0 Time Spent (min) 35
[2022-03-22 17:37] VITALS: PULSE 82
--- NOTE | 2022-03-22 21:27 | Electrocardiogram Report ---
Test Reason : Blood Pressure : / mmHG Vent. Rate : 099 BPM Atrial Rate : 099 BPM P-R Int : 182 ms QRS Dur : 120 ms QT Int : 410 ms P-R-T Axes : 063 -32 036 degrees QTc Int : 526 ms Sinus rhythm Left axis deviation Right bundle branch block Abnormal ECG When compared with ECG of 18-MAR-2022 10:22, Non-specific change in ST segment in Anterior leads Confirmed by Kel Moreno ([id number]) on 03/22/2022 9:26:31 PM Referred By: Provider Outside Confirmed By:Kel Moreno
--- NOTE | 2022-03-22 21:28 | Electrocardiogram Report ---
Test Reason : Blood Pressure : / mmHG Vent. Rate : 099 BPM Atrial Rate : 099 BPM P-R Int : 204 ms QRS Dur : 120 ms QT Int : 378 ms P-R-T Axes : 053 -40 014 degrees QTc Int : 485 ms Normal sinus rhythm Left axis deviation Right bundle branch block Nonspecific ST abnormality Abnormal ECG When compared with ECG of 20-MAR-2022 14:45, No significant change Confirmed by Kel Moreno ([id number]) on 03/22/2022 9:27:25 PM Referred By: Provider Outside Confirmed By:Kel Moreno
--- NOTE | 2022-03-23 07:00 | Electrocardiogram Report ---
Test Reason : Blood Pressure : / mmHG Vent. Rate : 135 BPM Atrial Rate : 135 BPM P-R Int : 114 ms QRS Dur : 110 ms QT Int : 324 ms P-R-T Axes : -06 -48 049 degrees QTc Int : 486 ms Sinus tachycardia with Premature atrial complexes Incomplete right bundle branch block Left anterior fascicular block Abnormal ECG When compared with ECG of 20-MAR-2022 14:46, Premature atrial complexes are now Present Confirmed by Kel Moreno ([id number]) on 03/23/2022 7:00:09 AM Referred By: Provider Outside Confirmed By:Kel Moreno
[2022-03-23] MEDS ORDERED: CIPROFLOXACIN 500 MG TAB PO SCH (09:00)
[2022-03-23] MEDS ORDERED: FUROSEMIDE 40 MG TAB PO SCH (09:00)
== END 2022-03-22 18:25 | disposition home health service (06) | DRG 689 ==
LOC: ED 09:42 → 2N 11:40 → SUATTDRO 11:40 → 2N 13:08

== ENCOUNTER 2022-04-21 10:01 | Inpatient (IN) ==
[2022-04-21] MEDS ORDERED: ACETAMINOPHEN 1,000 MG/100 ML VIAL IV STA (10:21)
[2022-04-21] MEDS ORDERED: FAMOTIDINE 20MG IV PUSH 20 MG/5 ML SYR IV STA (10:23)
[2022-04-21] MEDS ORDERED: ONDANSETRON INJ 2 MG/ML 2 ML VIAL IV STA (10:23)
[2022-04-21] MEDS ORDERED: ALBUT/IPRATROP 3MG/0.5MG NEB 3 ML VIAL NEB STA (10:24)
[2022-04-21] MEDS ORDERED: dexAMETHasone**PF** 10 MG/ML VIAL IV ONE (10:24)
--- NOTE | 2022-04-21 10:33 | Emergency Department Note ---
Impression & Plan Sepsis, Acute pyelonephritis, Acute renal insufficiency, Hypomagnesemia, Elevated troponin ED Provider Note NAME: MEG HOBBS AGE: 76 SEX: F ARRIVES VIA: Ambulance INFORMANT: Patient ED PROVIDER(S): Nolan Austin MD CHIEF COMPLAINT: Weakness. Shortness of breath. PLAN: Disposition: Admit MEDICAL DECISION MAKING: The patient is a pleasant 76-year-old woman with a complicated past medical history of chronic respiratory failure with hypoxia on home oxygen, small cell lung cancer who [facility], polymyalgia rheumatica, history of PE diagnosed in January this year on Eliquis, atrial flutter, anemia who presents to the emergency department via EMS for worsening generalized weakness, chest pain, shortness of breath with nausea and diarrhea over the past several days. There is no report of any fevers. On arrival the patient is acute on chronically ill-appearing but no acute distress, afebrile with blood pressures 80s/60s, HR 110s and RR 30s. She appears clinically dry. She has diminished breath sounds of bilateral lower lung hernandez and has bilateral wheezes. EKG demonstrates sinus tachycardia without overt acute ischemia. Chest x-ray demonstrates suspected trace left pleural effusion and left basilar opacity is nonspecific. WBC 17.6K with neutrophil predominance and left shift. H/H 9.1/28.6 within p rior range of values. Chemistry without metabolic acidosis. Creatinine 1.6, consistent with JAMIL. Magnesium 1.2 with repletion ordered. LFTs unremarkable. High-sensitivity troponin 19.1, nonspecific, in setting of sepsis. Procalcitonin elevated at 1.09. Respiratory viral panel/bio fire was negative. Urinalysis is pending. CT of the chest and abdomen pelvis were ordered for further evaluation of infectious source for sepsis. The patient was ordered for 30 cc/KG IV fluids/normal saline and empiric cefepime and vancomycin ordered. BP stabilizing. Case was discussed with Dr. Campbell, [facility] hospitalist, who will evaluate the patient for admission. CT of the chest demonstrates right basilar groundglass opacities that are nonspecific may represent atelectasis versus infiltrate. The abdomen pelvis demonstrates evidence of right-sided upper infection/pyelonephritis with UA subsequently demonstrating positive nitrites, leukoesterase, WBCs and 2+ bacteria albeit with epithelial cells present. Further management per admitting team. Triage Nursing notes reviewed and agree them. Prior medical records reviewed Vital Signs: reviewed Differential diagnosis: Reactive airway disease, pneumonia, pneumothorax, COPD, CHF, infections, cardiac ischemia, pulmonary embolism, musculoskeletal, gastrointestinal, as well as other pathologies. ER treatment provided: See below. Diagnostics interpreted by me: ECG: Sinus tachycardia, 114 bpm, no ectopy, right bundle branch block, left anterior fascicular block, no overt ST elevation, QTC 482, QRS 120. Cardiac Monitoring: An order for continuous cardiac monitoring was placed and demonstrated Sinus tachycardia, 114 bpm, no ectopy. Laboratory studies: See below Imaging studies: See below Consultation(s): Dr. Campbell, [facility] hospitalist HPI: The patient is a pleasant 76-year-old woman with a complicated past medical history of chronic respiratory failure with hypoxia on home oxygen, small cell lung cancer who [facility], polymyalgia rheumatica, history of PE diagnosed in January this year on Eliquis, atrial flutter, anemia who presents to the emergency department via EMS for worsening generalized weakness, chest pain, shortness of breath with nausea and diarrhea over the past several days. There is no report of any fevers. ROS: See above HPI for pertinent positives & negatives. A total of 10 systems reviewed and were otherwise negative. VITALS:See Below PHYSICAL EXAMINATION: GENERAL: Awake, alert, acute on chronically ill-appearing, in no distress HENT: Normocephalic, atraumatic. Oropharynx with dry mucous membranes and otherwise unremarkable. EYES: Normal conjunctiva. Sclera non-icteric. NECK: Supple. No nuchal rigidity. FROM. No JVD. RESPIRATORY: Diminished breath sounds of bilateral lower lung hernandez and has bilateral wheezes. CARDIAC: Tachycardic rate, normal rhythm. Extremities warm and well perfused. Pulses equal. ABDOMEN: Soft, non-distended. No tenderness to palpation. No rebound or guarding. No masses. RECTAL: Deferred. MUSCULOSKELETAL: Chest examination reveals no tenderness. The back is symmetrical on inspection without obvious abnormality. There is no CVA tenderness to palpation. No joint edema. LOWER EXTREMITIES: Calves are equal size bilaterally and non-tender. No edema. No discoloration. NEURO: No focal sensory or motor deficits noted. SKIN: No rash or jaundice noted. ED COURSE: Critical Care: I have personally spent greater than 75 minutes of critical care time in the direct management of this patient. This includes bedside care, interpretation of diagnostic studies, and testing, discussion with consultants, patient, and family members, and other required patient management activities. This 75 minutes is in excess of all separately billable procedures. Nolan Austin MD Past Med/Surg History Medical History Asthma (04/25/12) Stable and controlled Atrial flutter with rapid ventricular response Chronic dyspnea Chronic obstructive pulmonary disease STABLE- CONTROLLED- ALBUTEROL USE THIS AM COPD (chronic obstructive pulmonary disease) COPD exacerbation Diabetes mellitus, type 2 NIDDM- WELL CONTROLLED AND STABLE Endometrial thickening on ultrasound Ex-smoker GERD (gastroesophageal reflux disease) Hearing deficit NO AIDS Hemoptysis History of breast cancer RIGHT S/P LUMPECTOMY/CHEMO/RADATION (2009)- STABLE AT THIS TIME History of diverticulitis History of liver disease 03/2019 [facility] FOR LIVER ABSCESS- GIVEN ABXS X MONTHS- FOLLOWING WITH [facility] FOR MONITORING -RECENT CT SCAN 06/16/19- SHOWS ABSCESS TO BE DECREASED TO 3.5CM (SURGEON IS AWARE) Hx of bladder cancer HAD BCG INSTILLATION - DX: 2012 Left rib fracture (2016) Liver abscess Lower extremity edema Malignant neoplasm of lung Bronch with biopsy on 11/15/21 Migraine HX Osteoporosis Osteoporosis Pancytopenia due to antineoplastic chemotherapy PMR (polymyalgia rheumatica) PMR (polymyalgia rheumatica) CHRONIC Port-A-Cath in place Small cell lung cancer Tobacco abuse Tremor RIGHT HAND Ureteral tumor Vertebral fracture LUMBAR AND THORACIC Surgical History H/O cystoscopy SEVERAL History of appendectomy History of arthroscopy B/L KNEE History of breast biopsy History of bronchoscopy 11/15/21 History of cholecystectomy History of colonoscopy History of elbow surgery RIGHT History of lumpectomy of right breast History of surgery TURBT X 2; TURBT, CYSTO, RIGHT RPG, STENT: 07/11/18: LMA#4 AT [facility] History of surgery LEFT CHEST PORT Nausea and vomiting after administration of anesthetic agent S/P ablation of atrial flutter Family History Other Adopted Family history unknown Social History Smoking Status: Former smoker Tobacco Type: Cigarettes Cigarettes Per Day: 6; Second Hand Exposure: No; Hx Alcohol Use: No Hx Substance Use: No Preferred Language: Brazilian Communication Ability: Impaired Visual Impairment: No Limitations Hearing Ability: Normal Operations Examiner Required: No Beliefs That Will Affect Care: None marital status: Single Current Living Situation: Other Current Living Situation Comment: lives with roomate current occupational status: retired Other Information That Helps Us Care for You: No Feels Safe at Home: Yes Safety Concerns: Feels Safe At This Time Childhood Exposure to Second-Hand Smoke: Yes caffeine: No during the past year weight has: remained stable Dental Care, Regularly: Yes Physical Activity Frequency: 1-2 Times per Week Seatbelt Use: always Sunscreen Use: Yes Assistive Devices: Hospital Bed, Oxygen - Continuous and Walker Allergies Allergies Allergy/AdvReac Type Severity Reaction Status Date / Time castor oil Allergy Severe "TAXANES" Verified 04/04/22 14:11 CAUSE DYSPNEA, RASH, ELEVATED BP docetaxel [From Taxotere] Allergy Severe "TAXANES" Verified 04/04/22 14:11 CAUSE DYSPNEA, RASH, ELEVATED BP paclitaxel Allergy Severe "TAXANES" Verified 04/04/22 14:11 CAUSE DYSPNEA, RASH, ELEVATED BP trimethoprim [From Bactrim] Allergy Severe Anaphylaxis Verified 04/04/22 14:11 Iodinated Contrast Media Allergy Intermediate HIVES/ITCHI Verified 04/04/22 14:11 NG nitrofurantoin Allergy Intermediate CHEST Verified 04/04/22 14:11 PAIN, DYSPNEA Sulfa (Sulfonamide Allergy Intermediate HIVES, Verified 04/04/22 14:11 Antibiotics) ITCHINESS, SHORTNESS OF BREATH phenazopyridine AdvReac Intermediate N/V Verified 04/04/22 14:11 codeine AdvReac COLD Verified 04/04/22 14:11 SWEAT, THINGS START SPINNING, NAUSEA Home Meds Home Medications Medication Instructions Recorded Confirmed metformin 850 mg tablet 850 mg PO BID 07/05/21 04/04/22 cholecalciferol (vitamin D3) 25 25 mcg PO DAILY 12/01/21 04/04/22 mcg (1,000 unit) capsule mecobalamin (vitamin B12) 1,000 1,000 mcg sublingual DAILY 12/01/21 04/04/22 mcg disintegrating tablet,sublingual furosemide 20 mg tablet (Lasix) 40 mg PO QAM 01/16/22 04/04/22 olanzapine 2.5 mg tablet 2.5 mg PO HS 03/18/22 04/04/22 omeprazole 40 mg capsule,delayed 40 mg PO QPM 03/18/22 04/04/22 release potassium chloride 20 mEq 20 meq PO BID 03/18/22 04/04/22 tablet,extended release(part/cryst) (Klor-Con M) prednisone 10 mg tablet 10 mg PO DAILY 03/18/22 04/04/22 Previous Rx's Medication Instructions Recorded nortriptyline 25 mg capsule 25 mg PO HS #90 caps 11/04/21 folic acid 1 mg tablet 1 mg PO QPM #30 tabs 11/21/21 nebulizers #1 ea 12/05/21 fluticasone furoate 100 1 inh inhalation DAILY #60 ea 12/07/21 mcg-vilanterol 25 mcg/dose inhalation powder (Breo Ellipta) umeclidinium 62.5 mcg/actuation 1 inh inhalation DAILY #30 ea 12/07/21 blister powder for inhalation (Incruse Ellipta) docusate sodium 100 mg capsule 100 mg PO BID #60 caps 01/22/22 (Colace) polyethylene glycol 3350 17 17 g PO DAILY #238 grams 01/22/22 gram/dose oral powder (Miralax) apixaban 5 mg tablet (Eliquis) 5 mg PO BID #60 tabs 02/10/22 ipratropium 0.5 mg-albuterol 3 mg 3 ml inhalation Q6H PRN wheezing 03/14/22 (2.5 mg base)/3 mL nebulization #360 mL soln Results & Data (ED) Vital Signs Vital Signs - 24 hr 04/21/22 10:07 04/21/22 10:24 04/21/22 10:26 Temperature 36.5 C Temperature Source Oral Pulse Rate 112 H 112 H Pulse Rate [Apical] Pulse Rate from SpO2 Sensor Pulse Rhythm Regular Regular Pulse Rhythm [Apical] Pulse Strength Normal Pulse Strength [Apical] Respiratory Rate 30 H 30 H Respiratory Effort / Characteristics Non-Labored Spontaneous Short of Breath Respiratory Depth Normal Respiratory Pattern Tachypnea Blood Pressure 87/54 L Blood Pressure [Left Arm] Blood Pressure Mean 65 Blood Pressure Mean [Left Arm] Blood Pressure Position Lying Blood Pressure Position [Left Arm] Pulse Oximetry 99 99 99 Oxygen Delivery Method Nasal Cannula Nasal Cannula Nasal Cannula Oxygen Flow Rate 2 2 2 Sepsis Recent Fever Within 48 Hours No Sepsis New/Unexplained Change in Mental Status No Sepsis Action Taken by Nursing Physician Notified 04/21/22 10:28 04/21/22 10:10 04/21/22 10:11 Temperature Temperature Source Pulse Rate 119 H Pulse Rate [Apical] Pulse Rate from SpO2 Sensor Pulse Rhythm Pulse Rhythm [Apical] Pulse Strength Pulse Strength [Apical] Respiratory Rate 25 H Respiratory Effort / Characteristics Non-Labored Spontaneous Short of Breath Respiratory Depth Normal Respiratory Pattern Tachypnea Blood Pressure 87/54 L Blood Pressure [Left Arm] Blood Pressure Mean 65 Blood Pressure Mean [Left Arm] Blood Pressure Position Blood Pressure Position [Left Arm] Pulse Oximetry Oxygen Delivery Method Nasal Cannula Oxygen Flow Rate 2 Sepsis Recent Fever Within 48 Hours Sepsis New/Unexplained Change in Mental Status Sepsis Action Taken by Nursing 04/21/22 10:11 04/21/22 10:20 04/21/22 10:30 Temperature Temperature Source Pulse Rate 112 H 106 H 103 H Pulse Rate [Apical] Pulse Rate from SpO2 Sensor 109 H 103 H Pulse Rhythm Pulse Rhythm [Apical] Pulse Strength Pulse Strength [Apical] Respiratory Rate 23 25 H 25 H Respiratory Effort / Characteristics Respiratory Depth Respiratory Pattern Blood Pressure Blood Pressure [Left Arm] Blood Pressure Mean Blood Pressure Mean [Left Arm] Blood Pressure Position Blood Pressure Position [Left Arm] Pulse Oximetry 97 100 Oxygen Delivery Method Oxygen Flow Rate Sepsis Recent Fever Within 48 Hours Sepsis New/Unexplained Change in Mental Status Sepsis Action Taken by Nursing 04/21/22 10:40 04/21/22 10:50 04/21/22 11:00 Temperature Temperature Source Pulse Rate 101 H 99 H 98 H Pulse Rate [Apical] Pulse Rate from SpO2 Sensor 101 H 99 H 98 H Pulse Rhythm Pulse Rhythm [Apical] Pulse Strength Pulse Strength [Apical] Respiratory Rate 27 H 24 24 Respiratory Effort / Characteristics Respiratory Depth Respiratory Pattern Blood Pressure Blood Pressure [Left Arm] Blood Pressure Mean Blood Pressure Mean [Left Arm] Blood Pressure Position Blood Pressure Position [Left Arm] Pulse Oximetry 98 99 99 Oxygen Delivery Method Oxygen Flow Rate Sepsis Recent Fever Within 48 Hours Sepsis New/Unexplained Change in Mental Status Sepsis Action Taken by Nursing 04/21/22 11:10 04/21/22 11:16 04/21/22 11:16 Temperature Temperature Source Pulse Rate 94 H 94 H Pulse Rate [Apical] 94 H Pulse Rate from SpO2 Sensor 95 H 94 H Pulse Rhythm Pulse Rhythm [Apical] Regular Pulse Strength Pulse Strength [Apical] Normal Respiratory Rate 25 H 28 H 24 Respiratory Effort / Characteristics Non-Labored Spontaneous Short of Breath Respiratory Depth Normal Respiratory Pattern Tachypnea Blood Pressure Blood Pressure [Left Arm] 84/53 L Blood Pressure Mean Blood Pressure Mean [Left Arm] 63 Blood Pressure Position Blood Pressure Position [Left Arm] Lying Pulse Oximetry 100 100 100 Oxygen Delivery Method Nebulizer Oxygen Flow Rate 8 Sepsis Recent Fever Within 48 Hours Sepsis New/Unexplained Change in Mental Status Sepsis Action Taken by Nursing 04/21/22 11:16 04/21/22 11:20 04/21/22 11:30 Temperature Temperature Source Pulse Rate 94 H 93 H Pulse Rate [Apical] Pulse Rate from SpO2 Sensor 94 H 94 H Pulse Rhythm Pulse Rhythm [Apical] Pulse Strength Pulse Strength [Apical] Respiratory Rate 24 24 Respiratory Effort / Characteristics Respiratory Depth Respiratory Pattern Blood Pressure 84/53 L Blood Pressure [Left Arm] Blood Pressure Mean 63 Blood Pressure Mean [Left Arm] Blood Pressure Position Blood Pressure Position [Left Arm] Pulse Oximetry 100 100 Oxygen Delivery Method Oxygen Flow Rate Sepsis Recent Fever Within 48 Hours Sepsis New/Unexplained Change in Mental Status Sepsis Action Taken by Nursing 04/21/22 11:31 04/21/22 11:31 04/21/22 11:40 Temperature Temperature Source Pulse Rate 96 H 94 H Pulse Rate [Apical] Pulse Rate from SpO2 Sensor 95 H 95 H Pulse Rhythm Pulse Rhythm [Apical] Pulse Strength Pulse Strength [Apical] Respiratory Rate 21 24 Respiratory Effort / Characteristics Respiratory Depth Respiratory Pattern Blood Pressure 108/51 L Blood Pressure [Left Arm] Blood Pressure Mean 70 Blood Pressure Mean [Left Arm] Blood Pressure Position Blood Pressure Position [Left Arm] Pulse Oximetry 100 95 Oxygen Delivery Method Oxygen Flow Rate Sepsis Recent Fever Within 48 Hours Sepsis New/Unexplained Change in Mental Status Sepsis Action Taken by Nursing 04/21/22 11:45 04/21/22 11:45 04/21/22 11:50 Temperature Temperature Source Pulse Rate 95 H 94 H Pulse Rate [Apical] Pulse Rate from SpO2 Sensor 95 H 94 H Pulse Rhythm Pulse Rhythm [Apical] Pulse Strength Pulse Strength [Apical] Respiratory Rate 24 24 Respiratory Effort / Characteristics Respiratory Depth Respiratory Pattern Blood Pressure 100/62 Blood Pressure [Left Arm] Blood Pressure Mean 74 Blood Pressure Mean [Left Arm] Blood Pressure Position Blood Pressure Position [Left Arm] Pulse Oximetry 95 95 Oxygen Delivery Method Oxygen Flow Rate Sepsis Recent Fever Within 48 Hours Sepsis New/Unexplained Change in Mental Status Sepsis Action Taken by Nursing 04/21/22 12:00 04/21/22 12:00 04/21/22 12:22 Temperature Temperature Source Pulse Rate 94 H 91 H Pulse Rate [Apical] Pulse Rate from SpO2 Sensor 94 H 92 H Pulse Rhythm Pulse Rhythm [Apical] Pulse Strength Pulse Strength [Apical] Respiratory Rate 25 H 28 H Respiratory Effort / Characteristics Respiratory Depth Respiratory Pattern Blood Pressure 88/50 L Blood Pressure [Left Arm] Blood Pressure Mean 62 Blood Pressure Mean [Left Arm] Blood Pressure Position Blood Pressure Position [Left Arm] Pulse Oximetry 96 97 Oxygen Delivery Method Oxygen Flow Rate Sepsis Recent Fever Within 48 Hours Sepsis New/Unexplained Change in Mental Status Sepsis Action Taken by Nursing 04/21/22 12:23 04/21/22 12:23 04/21/22 12:30 Temperature Temperature Source Pulse Rate 92 H Pulse Rate [Apical] Pulse Rate from SpO2 Sensor 91 H Pulse Rhythm Pulse Rhythm [Apical] Pulse Strength Pulse Strength [Apical] Respiratory Rate 22 Respiratory Effort / Characteristics Respiratory Depth Respiratory Pattern Blood Pressure 91/51 L 94/47 L Blood Pressure [Left Arm] Blood Pressure Mean 64 62 Blood Pressure Mean [Left Arm] Blood Pressure Position Blood Pressure Position [Left Arm] Pulse Oximetry 97 Oxygen Delivery Method Oxygen Flow Rate Sepsis Recent Fever Within 48 Hours Sepsis New/Unexplained Change in Mental Status Sepsis Action Taken by Nursing 04/21/22 12:30 04/21/22 12:40 04/21/22 12:50 Temperature Temperature Source Pulse Rate 91 H 91 H 108 H Pulse Rate [Apical] Pulse Rate from SpO2 Sensor 91 H 90 90 Pulse Rhythm Pulse Rhythm [Apical] Pulse Strength Pulse Strength [Apical] Respiratory Rate 28 H 23 23 Respiratory Effort / Characteristics Respiratory Depth Respiratory Pattern Blood Pressure Blood Pressure [Left Arm] Blood Pressure Mean Blood Pressure Mean [Left Arm] Blood Pressure Position Blood Pressure Position [Left Arm] Pulse Oximetry 98 95 97 Oxygen Delivery Method Oxygen Flow Rate Sepsis Recent Fever Within 48 Hours Sepsis New/Unexplained Change in Mental Status Sepsis Action Taken by Nursing 04/21/22 12:51 04/21/22 12:51 Temperature Temperature Source Pulse Rate 116 H Pulse Rate [Apical] Pulse Rate from SpO2 Sensor 91 H Pulse Rhythm Pulse Rhythm [Apical] Pulse Strength Pulse Strength [Apical] Respiratory Rate 15 Respiratory Effort / Characteristics Respiratory Depth Respiratory Pattern Blood Pressure 91/65 L Blood Pressure [Left Arm] Blood Pressure Mean 73 Blood Pressure Mean [Left Arm] Blood Pressure Position Blood Pressure Position [Left Arm] Pulse Oximetry 97 Oxygen Delivery Method Oxygen Flow Rate Sepsis Recent Fever Within 48 Hours Sepsis New/Unexplained Change in Mental Status Sepsis Action Taken by Nursing Laboratory Data Attestation: I reviewed the patient's lab results. Result diagrams: 04/21/22 10:22 04/21/22 10: Lab Results 04/21/22 04/21/22 04/21/22 Range/Units 10:16 10:22 10:22 WBC 17.65 H (4.8-10.8) K/ul RBC 2.89 L (3.93-5.22) M/uL Hgb 9.1 L (12.0-16.0) g/dl Hct 28.6 L (34.1-44.9) % MCV 99.0 (80.0-100.0) fL MCH 31.5 (25.0-34.0) pg MCHC 31.8 L (32.0-36.0) g/dL RDW Std Deviation 61.0 H (36.4-46.3) fL RDW Coeff of Atul 16.7 H (11.5-14.5) % Plt Count 265 (130-400) K/uL MPV 9.8 (9.4-12.3) fL Immature Gran % (Auto) 1.6 % Neut % (Auto) 84.9 % Lymph % (Auto) 2.8 % [place] % (Auto) 9.6 % Eos % (Auto) 0.9 % Baso % (Auto) 0.2 % Neut # (Auto) 14.98 H (1.4-6.5) K/uL Lymph # (Auto) 0.49 L (1.2-3.4) K/uL [place] # (Auto) 1.69 H (0.24-0.82) K/uL Eos # (Auto) 0.16 (0-0.50) K/uL Baso # (Auto) 0.04 (0-0.2) K/uL Immature Gran # (Auto) 0.29 H (0.00-0.02) K/uL PT 13.5 H (9.0-12.0) Seconds INR 1.3 H (0.9-1.1) Sodium (136-145) mmol/L Potassium (3.5-5.1) mmol/L Chloride (98-107) mmol/L Carbon Dioxide (21-32) mmol/L Anion Gap (3-11) BUN (6-23) mg/dl Creatinine (0.6-1.2) mg/dl Est Cr Clr Drug Dosing ml/min Est GFR ( Amer) ml/min Est GFR (Non-Af Amer) ml/min BUN/Creatinine Ratio (10-20) Glucose (70-99(Fasting)) mg/dl Lactate (0.4-2.0) mmol/L Calcium (8.5-10.1) mg/dl Phosphorus (2.5-4.9) mg/dl Magnesium (1.7-2.4) mg/dl Total Bilirubin (0.2-1.0) mg/dl Direct Bilirubin (0-0.2) mg/dl AST (13-39) U/L ALT (7-52) U/L Alkaline Phosphatase (34-104) U/L Troponin I High Sens (0-14) pg/ml B-Natriuretic Peptide (0-100) pg/ml Total Protein (6.0-8.3) gm/dl Albumin (3.4-5.0) gm/dl Procalcitonin (0-0.5) ng/ml Urine Color Urine Appearance (Clear) Urine pH (4.5-7.5) Ur Specific [place] (1.000-1.030) Urine Protein (Negative) Urine Glucose (UA) (Negative) Urine Ketones (Negative) Urine Blood (Negative) Urine Nitrite (Negative) Urine Bilirubin (Negative) Urine Urobilinogen (Negative) Ur Leukocyte Esterase (Negative) Urine WBC (Auto) (0-5) /hpf Urine RBC (Auto) (0-4) /hpf U Hyaline Cast (Auto) (0-5) /lpf U Epithel Cells (Auto) (0-5) /lpf Urine Bacteria (Auto) (Negative) Adenovirus (PCR) Not Detected (NotDetected) B. pertussis DNA (PCR) Not Detected (NotDetected) B.parapertussis DNA PCR Not Detected (NotDetected) C. pneumoniae DNA (PCR) Not Detected (NotDetected) Coronavirus OC43 (PCR) Not Detected (NotDetected) Coronavirus HKU1 (PCR) Not Detected (NotDetected) Coronavirus 229E (PCR) Not Detected (NotDetected) SARS-CoV-2 (PCR) Not Detected (NotDetected) Coronavirus NL63 (PCR) Not Detected (NotDetected) Human Metapneumovir PCR Not Detected (NotDetected) Influenza Type A (PCR) Not Detected (NotDetected) Influenza Type B (PCR) Not Detected (NotDetected) M. pneumoniae (PCR) Not Detected (NotDetected) Parainfluenza 1 (PCR) Not Detected (NotDetected) Parainfluenza 2 (PCR) Not Detected (NotDetected) Parainfluenza 3 (PCR) Not Detected (NotDetected) Parainfluenza 4 (PCR) Not Detected (NotDetected) RSV (PCR) Not Detected (NotDetected) Entero/Rhino (PCR) Not Detected (NotDetected) 04/21/22 04/21/22 04/21/22 Range/Units 10:22 10:22 10:52 WBC (4.8-10.8) K/ul RBC (3.93-5.22) M/uL Hgb (12.0-16.0) g/dl Hct (34.1-44.9) % MCV (80.0-100.0) fL MCH (25.0-34.0) pg MCHC (32.0-36.0) g/dL RDW Std Deviation (36.4-46.3) fL RDW Coeff of Atul (11.5-14.5) % Plt Count (130-400) K/uL MPV (9.4-12.3) fL Immature Gran % (Auto) % Neut % (Auto) % Lymph % (Auto) % [place] % (Auto) % Eos % (Auto) % Baso % (Auto) % Neut # (Auto) (1.4-6.5) K/uL Lymph # (Auto) (1.2-3.4) K/uL [place] # (Auto) (0.24-0.82) K/uL Eos # (Auto) (0-0.50) K/uL Baso # (Auto) (0-0.2) K/uL Immature Gran # (Auto) (0.00-0.02) K/uL PT (9.0-12.0) Seconds INR (0.9-1.1) Sodium 134 L (136-145) mmol/L Potassium 5.2 H (3.5-5.1) mmol/L Chloride 97 L (98-107) mmol/L Carbon Dioxide 27 (21-32) mmol/L Anion Gap 10 (3-11) BUN 24 H (6-23) mg/dl Creatinine 1.69 H (0.6-1.2) mg/dl Est Cr Clr Drug Dosing 23.6 ml/min Est GFR ( Amer) 33.1 ml/min Est GFR (Non-Af Amer) 28.6 ml/min BUN/Creatinine Ratio 14.2 (10-20) Glucose 115 H (70-99(Fasting)) mg/dl Lactate 1.1 (0.4-2.0) mmol/L Calcium 8.8 (8.5-10.1) mg/dl Phosphorus 3.5 (2.5-4.9) mg/dl Magnesium 1.2 L (1.7-2.4) mg/dl Total Bilirubin 0.4 (0.2-1.0) mg/dl Direct Bilirubin 0.1 (0-0.2) mg/dl AST 11 L (13-39) U/L ALT 11 (7-52) U/L Alkaline Phosphatase 95 (34-104) U/L Troponin I High Sens 19.1 H (0-14) pg/ml B-Natriuretic Peptide (0-100) pg/ml Total Protein 6.3 (6.0-8.3) gm/dl Albumin 3.1 L (3.4-5.0) gm/dl Procalcitonin 1.09 H (0-0.5) ng/ml Urine Color Urine Appearance (Clear) Urine pH (4.5-7.5) Ur Specific [place] (1.000-1.030) Urine Protein (Negative) Urine Glucose (UA) (Negative) Urine Ketones (Negative) Urine Blood (Negative) Urine Nitrite (Negative) Urine Bilirubin (Negative) Urine Urobilinogen (Negative) Ur Leukocyte Esterase (Negative) Urine WBC (Auto) (0-5) /hpf Urine RBC (Auto) (0-4) /hpf U Hyaline Cast (Auto) (0-5) /lpf U Epithel Cells (Auto) (0-5) /lpf Urine Bacteria (Auto) (Negative) Adenovirus (PCR) (NotDetected) B. pertussis DNA (PCR) (NotDetected) B.parapertussis DNA PCR (NotDetected) C. pneumoniae DNA (PCR) (NotDetected) Coronavirus OC43 (PCR) (NotDetected) Coronavirus HKU1 (PCR) (NotDetected) Coronavirus 229E (PCR) (NotDetected) SARS-CoV-2 (PCR) (NotDetected) Coronavirus NL63 (PCR) (NotDetected) Human Metapneumovir PCR (NotDetected) Influenza Type A (PCR) (NotDetected) Influenza Type B (PCR) (NotDetected) M. pneumoniae (PCR) (NotDetected) Parainfluenza 1 (PCR) (NotDetected) Parainfluenza 2 (PCR) (NotDetected) Parainfluenza 3 (PCR) (NotDetected) Parainfluenza 4 (PCR) (NotDetected) RSV (PCR) (NotDetected) Entero/Rhino (PCR) (NotDetected) 04/21/22 04/21/22 Range/Units 11:56 12:53 WBC (4.8-10.8) K/ul RBC (3.93-5.22) M/uL Hgb (12.0-16.0) g/dl Hct (34.1-44.9) % MCV (80.0-100.0) fL MCH (25.0-34.0) pg MCHC (32.0-36.0) g/dL RDW Std Deviation (36.4-46.3) fL RDW Coeff of Atul (11.5-14.5) % Plt Count (130-400) K/uL MPV (9.4-12.3) fL Immature Gran % (Auto) % Neut % (Auto) % Lymph % (Auto) % [place] % (Auto) % Eos % (Auto) % Baso % (Auto) % Neut # (Auto) (1.4-6.5) K/uL Lymph # (Auto) (1.2-3.4) K/uL [place] # (Auto) (0.24-0.82) K/uL Eos # (Auto) (0-0.50) K/uL Baso # (Auto) (0-0.2) K/uL Immature Gran # (Auto) (0.00-0.02) K/uL PT (9.0-12.0) Seconds INR (0.9-1.1) Sodium (136-145) mmol/L Potassium (3.5-5.1) mmol/L Chloride (98-107) mmol/L Carbon Dioxide (21-32) mmol/L Anion Gap (3-11) BUN (6-23) mg/dl Creatinine (0.6-1.2) mg/dl Est Cr Clr Drug Dosing ml/min Est GFR ( Amer) ml/min Est GFR (Non-Af Amer) ml/min BUN/Creatinine Ratio (10-20) Glucose (70-99(Fasting)) mg/dl Lactate (0.4-2.0) mmol/L Calcium (8.5-10.1) mg/dl Phosphorus (2.5-4.9) mg/dl Magnesium (1.7-2.4) mg/dl Total Bilirubin (0.2-1.0) mg/dl Direct Bilirubin (0-0.2) mg/dl AST (13-39) U/L ALT (7-52) U/L Alkaline Phosphatase (34-104) U/L Troponin I High Sens (0-14) pg/ml B-Natriuretic Peptide 230 H (0-100) pg/ml Total Protein (6.0-8.3) gm/dl Albumin (3.4-5.0) gm/dl Procalcitonin (0-0.5) ng/ml Urine Color Yellow Urine Appearance Turbid A (Clear) Urine pH 5.5 (4.5-7.5) Ur Specific [place] 1.012 (1.000-1.030) Urine Protein 1+ H (Negative) Urine Glucose (UA) Negative (Negative) Urine Ketones Trace H (Negative) Urine Blood 2+ H (Negative) Urine Nitrite Positive A (Negative) Urine Bilirubin Negative (Negative) Urine Urobilinogen Negative (Negative) Ur Leukocyte Esterase 3+ H (Negative) Urine WBC (Auto) >30 H (0-5) /hpf Urine RBC (Auto) 5-10 H (0-4) /hpf U Hyaline Cast (Auto) 5-10 H (0-5) /lpf U Epithel Cells (Auto) >30 H (0-5) /lpf Urine Bacteria (Auto) 2+ H (Negative) Adenovirus (PCR) (NotDetected) B. pertussis DNA (PCR) (NotDetected) B.parapertussis DNA PCR (NotDetected) C. pneumoniae DNA (PCR) (NotDetected) Coronavirus OC43 (PCR) (NotDetected) Coronavirus HKU1 (PCR) (NotDetected) Coronavirus 229E (PCR) (NotDetected) SARS-CoV-2 (PCR) (NotDetected) Coronavirus NL63 (PCR) (NotDetected) Human Metapneumovir PCR (NotDetected) Influenza Type A (PCR) (NotDetected) Influenza Type B (PCR) (NotDetected) M. pneumoniae (PCR) (NotDetected) Parainfluenza 1 (PCR) (NotDetected) Parainfluenza 2 (PCR) (NotDetected) Parainfluenza 3 (PCR) (NotDetected) Parainfluenza 4 (PCR) (NotDetected) RSV (PCR) (NotDetected) Entero/Rhino (PCR) (NotDetected) Administered Medications Piperacillin Sod/Tazobactam (Sod 3.375 gm/ Dextrose) 115 mls @ 28.75 mls/hr IV Q8H SEBASTIEN; Protocol Stop: 05/01/22 21:59 Last Admin: 04/21/22 21:23 Dose: 28.8 mls/hr Documented By: CORBIN Sodium Chloride (Nss 1000ml) 1,000 mls @ 100 mls/hr IV .Q10H SEBASTIEN Stop: 04/22/22 11:22 Last Admin: 04/21/22 16:15 Dose: 100 mls/hr Documented By: OMARI Insulin Aspart (Insulin Aspart Per Unit) 0 units SC ACHS SEBASTIEN Stop: 05/21/22 16:29 Last Admin: 04/21/22 21:13 Dose: 4 units Documented By: MTR Co-signed By: CF Admin: 04/21/22 17:38 Dose: 4 units Documented By: CMP Co-signed By: CMP(2) Discontinued Medications Albuterol (Albut/Ipratrop 3mg/0.5mg Neb 3 Ml Vial) 3 ml NEB NOW STA; Protocol Stop: 04/21/22 10:25 Last Admin: 04/21/22 10:53 Dose: 3 ml Documented By: KAMRAN Dexamethasone Sodium Phosphate (DexamethasonePf 10 Mg/Ml Vial) 10 mg IV NOW ONE Stop: 04/21/22 10:25 Last Admin: 04/21/22 10:53 Dose: 10 mg Documented By: KAMRAN Hydrocortisone Sodium Succinate (Hydrocortisone Sod Succinate 100 Mg/2 Ml Vial) 100 mg IV NOW STA Stop: 04/21/22 12:35 Last Admin: 04/21/22 14:00 Dose: 100 mg Documented By: GELA Sodium Chloride (Nss 1000ml) 1,000 mls @ 999 mls/hr IV .Q1H1M SEBASTIEN Stop: 04/21/22 12:30 Last Infusion: 04/21/22 13:18 Dose: 0 mls/hr Documented By: Admin: 04/21/22 11:36 Dose: 999 mls/hr Documented By: Infusion: 04/21/22 11:36 Dose: 999 mls/hr Documented By: Admin: 04/21/22 10:53 Dose: 999 mls/hr Documented By: KAMRAN Acetaminophen (Ofirmev) 1,000 mg in 100 mls @ 400 mls/hr IV NOW STA Stop: 04/21/22 10:35 Last Infusion: 04/21/22 11:09 Dose: 0 mls/hr Documented By: Admin: 04/21/22 10:53 Dose: 400 mls/hr Documented By: KAMRAN Famotidine (Pepcid 20mg Iv Push) 20 mg in 5 mls @ 2.5 mls/min IV NOW STA Stop: 04/21/22 10:24 Last Admin: 04/21/22 10:53 Dose: 2.5 mls/min Documented By: KAMRAN Cefepime HCl (Maxipime) 2,000 mg in 20 mls @ 5 mls/min IV NOW STA; Protocol Stop: 04/21/22 11:31 Last Admin: 04/21/22 11:36 Dose: 5 mls/min Documented By: GELA Vancomycin HCl 1,500 mg/ (Sodium Chloride) 530 mls @ 200 mls/hr IV NOW ONE Stop: 04/21/22 14:06 Last Admin: 04/21/22 14:00 Dose: 200 mls/hr Documented By: GELA Magnesium Sulfate/Dextrose (Magnesium Sulfate / D5w) 1 gm in 100 mls @ 200 mls/hr IV Q30M SEBASTIEN Stop: 04/21/22 12:44 Last Infusion: 04/21/22 15:18 Dose: 0 mls/hr Documented By: Admin: 04/21/22 13:18 Dose: 200 mls/hr Documented By: Infusion: 04/21/22 13:13 Dose: 200 mls/hr Documented By: Admin: 04/21/22 12:43 Dose: 200 mls/hr Documented By: GELA Piperacillin Sod/Tazobactam (Sod 3.375 gm/ Dextrose) 115 mls @ 230 mls/hr IV NOW STA; Protocol Stop: 04/21/22 16:09 Last Infusion: 04/21/22 16:47 Dose: 0 mls/hr Documented By: Admin: 04/21/22 16:17 Dose: 230 mls/hr Documented By: OMARI Ondansetron HCl (Ondansetron Inj 2 Mg/Ml 2 Ml Vial) 4 mg IV NOW STA Stop: 04/21/22 10:24 Last Admin: 04/21/22 10:53 Dose: 4 mg Documented By: KAMRAN Imaging Data Radiologist's Impression: Abdomen/Pelvis CT 04/21/22 10:[address] WITHOUT CONTRAST CT DOSE: 653.99 mGy.cm HISTORY: abd pain, n/v/d, cancer patient TECHNIQUE: Multiaxial CT images of the abdomen and pelvis were performed without contrast. A dose lowering technique was utilized adhering to the principles of ALARA. COMPARISON STUDY: Abdomen and pelvis CT 03/18/2022. FINDINGS: Elevated left hemidiaphragm again noted. Bibasilar linear densities favor subsegmental atelectasis. Mild motion artifact. No pneumoperitoneum. No pneumatosis. Chronic T12-L2 compression deformities again noted the unenhanced liver, spleen, adrenal glands, and pancreas unremarkable. No renal stones or hydronephrosis. Mild right perinephric edema which has slightly progressed. Prior cholecystectomy. No retroperitoneal lymphadenopathy. Calcified plaque within the normal caliber abdominal aorta. No pelvic lymphadenopathy. There is a Armstrong catheter within the decompressed bladder. The uterus and adnexa are unre markable. No pelvic free fluid. Suboptimal evaluation for bowel pathology due to the lack of intravenous and oral contrast. However, there is no definite bowel wall thickening or obstruction. Colonic diverticulosis. No evidence for acute diverticulitis. Moderate fecal retention is noted. IMPRESSION: 1. No bowel wall thickening or obstruction. 2. Colonic diverticulosis. No evidence for acute diverticulitis. 3. Mild right perinephric edema/fat stranding. This has slightly progressed. Recommend correlation with urinalysis to exclude a cystitis. 4. Moderate fecal retention. 5. Additional findings as described above. ACT 112: Negative or not required by law. Electronically signed by: Sabino Chua M.D. 04/21/2022 12:[address] 04/21/22 10:21 CT OF THE CHEST WITHOUT IV CONTRAST CLINICAL HISTORY: Chest pain. Small cell lung cancer. COMPARISON STUDY: Chest CT February 06, 2022 and chest radiograph performed earlier today. TECHNIQUE: Axial images of the chest were obtained without IV contrast. Images were reviewed in the axial, sagittal, and coronal planes. IV contrast was not administered for this examination. Automated exposure control was utilized for the study. A dose lowering technique was utilized adhering to the principles of ALARA. FINDINGS: Left subclavian [id number] is in place. No enlarged axillary, mediastinal or hilar lymph nodes are present. Moderate cardiomegaly is noted. There is extensive coronary calcification. A left pleural effusion has decreased in size since chest CT of March 09, 2022. There is a trace residual left pleural effusion. Left lower lobe opacity reflects atelectasis. Ground glass opacities within the right lower lobe have developed since prior exam. A few nodular densities within the left upper lobe have decreased in size since prior exam. These may reflect lesions. The largest measures 2.5 x 1 cm. It previously measured 3.1 x 1.3 cm. This exam is mildly compromised by respiratory motion artifact. There is no pneumothorax. T11, T12 and L1 compression fractures are unchanged. No acute fractures within the bony thorax are present. There are old bilateral anterior rib fractures. The abdomen and pelvis CT will be reported separately. IMPRESSION: 1. Groundglass opacities with volume loss within the right lower lobe. This favors atelectasis although an infectious process could appear similar. 2. No evidence for progressive metastatic disease within the chest. 3. Decrease in size of a left pleural effusion. 4. Continued decrease in size of left upper lobe lesions. These favor treated lesions. ACT 112: Negative or not required by law. Electronically signed by: Sanchez Begum M.D. 04/21/2022 12:44 PM Discharge Plan Visit Data Chief Complaint: Shortness of Breath/Dyspnea ED Provider: Nolan Austin Discharge Problem: Sepsis, Acute pyelonephritis, Acute renal insufficiency, Hypomagnesemia, Elevated troponin Patient Disposition: Admitted As Inpatient Discharge Instructions Interventions: ED Discharge Assessment Last Done: 04/21/22 13:57 : Sepsis Qualifiers: Sepsis type: sepsis due to unspecified organism Sepsis acute organ dysfunction status: with acute organ dysfunction Severe sepsis acute organ dysfunction type: acute renal failure Acute renal failure type: unspecified Severe sepsis shock status: unspecified Qualified Code(s): A41.9 - Sepsis, unspecified organism
[2022-04-21 10:39] LABS: Basophils # (auto) 0.04 K/uL (0-0.2); Basophils % (auto) 0.2 %; Eosinophils # (auto) 0.16 K/uL (0-0.50); Eosinophils % (auto) 0.9 %; Hematocrit (blood only) 28.6 % (34.1-44.9); Hemoglobin 9.1 g/dl (12.0-16.0); Immature Granulocytes # (auto) 0.29 K/uL (0.00-0.02); Immature Granulocytes % (auto) 1.6 %; Lymphocytes # (auto) 0.49 K/uL (1.2-3.4); Lymphocytes % (auto) 2.8 %; Mean Corpuscular Hemoglobin 31.5 pg (25.0-34.0); Mean Corpuscular Hgb Conc 31.8 g/dL (32.0-36.0); Mean Platelet Volume 9.8 fL (9.4-12.3); Monocytes # (auto) 1.69 K/uL (0.24-0.82); Monocytes % (auto) 9.6 %; Neutrophils # (auto) 14.98 K/uL (1.4-6.5); Neutrophils % (auto) 84.9 %; Platelet Count 265 K/uL (130-400); RDW Coefficient of Variation 16.7 % (11.5-14.5); Red Blood Count 2.89 M/uL (3.93-5.22); White Blood Count 17.65 K/ul (4.8-10.8)
--- NOTE | 2022-04-21 10:48 | XRay Report ---
XR chest 1V portable CLINICAL HISTORY: Sepsis. Small cell lung cancer. COMPARISON STUDY: Chest radiograph March 18, 2022. Chest CT February 06, 2022. FINDINGS: Left subclavian [id number] is in place. Elevation of the left hemidiaphragm is unchanged . There is no pneumothorax. Suspected trace left pleural effusion. Left basilar opacity favors atelec tasis. There is no consolidation to suggest pneumonia. Previously described left upper lobe masses ar e not well visualized on this exam. IMPRESSION: 1. No significant change in appearance of the chest. Stable elevation of the left hemidiaphragm with a trace left pleural effusion and associated atelectasis. 2. Previously described left upper lobe mass not well visualized on this exam. ACT 112: Negative or not required by law. Electronically signed by: Sanchez Begum M.D. 04/21/2022 10:46 AM
[2022-04-21 10:49] LABS: INR 1.3 (0.9-1.1); Prothrombin Time 13.5 Seconds (9.0-12.0)
[2022-04-21] MEDS: SODIUM CHLORIDE 0.9% 1000ML 1,000 ML IV SCH ×3 (10:53→16:15)
[2022-04-21 11:04] LABS: Troponin I High Sensitivity 19.1 pg/ml (0-14)
[2022-04-21 11:16] LABS: Albumin Level 3.1 gm/dl (3.4-5.0); BUN Creatinine Ratio 14.2 (10-20); Bilirubin Direct 0.1 mg/dl (0-0.2); Bilirubin,Total 0.4 mg/dl (0.2-1.0); Calcium 8.8 mg/dl (8.5-10.1); Creatinine Clr Calc Pharmacy 23.6 ml/min; Est GFR (African American) 33.1 ml/min; Est GFR (Non-African American) 28.6 ml/min; Magnesium 1.2 mg/dl (1.7-2.4); Phosphorus 3.5 mg/dl (2.5-4.9); Potassium 5.2 mmol/L (3.5-5.1); Total Protein 6.3 gm/dl (6.0-8.3)
[2022-04-21] MEDS ORDERED: VANCOMYCIN CONSULT ACTIVE PRN (11:28)
[2022-04-21] MEDS ORDERED: CEFEPIME 2,000 MG/20 ML VIAL IV STA (11:28)
[2022-04-21] MEDS ORDERED: VANCOMYCIN HCL 1,500 MG in SODIUM CHLORIDE 0.9% 500 ML IV ONE (11:28)
[2022-04-21 11:29] LABS: Adenovirus PCR Not Detected (NotDetected); Bordetella parapertussis PCR Not Detected (NotDetected); Bordetella pertussis PCR Not Detected (NotDetected); Chlamydia pneumoniae PCR Not Detected (NotDetected); Coronavirus 229E PCR Not Detected (NotDetected); Coronavirus CoV-2 (COVID19)PCR Not Detected (NotDetected); Coronavirus HKU1 PCR Not Detected (NotDetected); Coronavirus NL63 PCR Not Detected (NotDetected); Coronavirus OC43PCR Not Detected (NotDetected); Human Metapneumovirus PCR Not Detected (NotDetected); Influenza A PCR Not Detected (NotDetected); Influenza B PCR Not Detected (NotDetected); Mycoplasma pneumoniae PCR Not Detected (NotDetected); Parainfluenza Virus 1 PCR Not Detected (NotDetected); Parainfluenza Virus 2 PCR Not Detected (NotDetected); Parainfluenza Virus 3 PCR Not Detected (NotDetected); Parainfluenza Virus 4 PCR Not Detected (NotDetected); Respiratory Syncytial VirusPCR Not Detected (NotDetected); Rhinovirus/Enterovirus PCR Not Detected (NotDetected)
[2022-04-21 12:16] LABS: Appearance Urine Turbid (Clear); Bacteria Urine Automated 2+ (Negative); Bilirubin Urine Negative (Negative); Blood Urine 2+ (Negative); Color Urine Yellow; Epithelial Cell Urine Auto >30 /lpf (0-5); Glucose Urine UA Negative (Negative); Ketones Urine Trace (Negative); Leukocyte Esterase Urine 3+ (Negative); Nitrite Urine Positive (Negative); Protein Urine 1+ (Negative); Specific Gravity Urine 1.012 (1.000-1.030); Urobilinogen Urine Negative (Negative); WBC Urine Automated >30 /hpf (0-5); pH Urine 5.5 (4.5-7.5)
--- NOTE | 2022-04-21 12:16 | History & Physical Report ---
Date of Service April 21, 2022 Assessment & Plan (1) Sepsis: Plan: Patient presents with sepsis without defined source concerns to be urinary or intra-abdominal. Patient started on cefepime and vancomycin. Pending images of her abdomen. Negative respiratory bio fire pending stool bio fire Pending lactic acid Volume resuscitated with 30 mL/kg additional 2 L of normal saline to be given at 100 an hour. Patient has her Lasix held on presentation volume status will need to be reassessed on the Patient with previous history of metabolic encephalopathy associate with urinary tract infection. Patient has some perinephric changes on CT scan which could be consistent with pyelonephritis. Patiently placed on Zosyn and vancomycin at this time Patient does have a port in her left upper chest if she has blood cultures which turned positive this will need to be addressed Patient has a history of Enterococcus faecalis in February 18 which was resistant to quinolones And Citrobacter braakii resistant to ceftriaxone in March 21 (2) Chronic respiratory failure with hypoxia: Plan: Patient continues on umeclidinium, fluticasone vilanterol all and as needed albuterol/ipratropium. Stable. Typically on 2 L of oxygen at home chronically (3) Paroxysmal atrial fibrillation: Plan: Patient is currently in a sinus tachycardia, this is from sepsis, she is not on any typical rate controlling medications (4) Diabetes mellitus, type 2: Plan: Patient's metformin is held she is on clear liquid diet which is type II diabetic diet with sliding scale insulin no basal insulin is added at this time (5) Polymyalgia rheumatica: Plan: Patient is given stress dose hydrocortisone 100 mg and will be continued on prednisone 10 mg starting on 04/22/2022 (6) Pulmonary embolism: Plan: Pulmonary embolism diagnosed February 18 being treated with apixaban therapy. Patient's apixaban is held this evening on the be restarted on 04/22/2022 in case any invasive procedures will be required (7) Compression fracture: (8) Vitamin B12 deficiency: Plan: Continues on B12 deficiency replacement (9) Hx of bladder cancer: Plan: Patient is slightly behind in her typical surveillance cystoscopies (10) History of breast cancer: (11) History of liver disease: Plan: Patient has a history of a liver abscess treated at [facility] comments on CT scan on presentation showed reducing size of lesions Plan Apixaban as DVT prevention Full code was confirmed with family in the emergency department History of Present Illness Primary Care Provider: Royal Tong MD 68-year-old female with a history of 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 Patient does not have significant changes on her chest x-ray and pulmonary bio fire is negative, so consideration would be urinary tract infection or intra-abdominal. Initially her LFTs have been analyzed and appears significantly abnormal. Her blood pressure was low on presentation she is being volume resuscitated currently Calcitonin is up lactic acid is normal Patient is a leukocytosis. She is acute kidney injury on history of chronic kidney disease stage III and she is hyperkalemic and hypomagnesemic Elevation of troponin is slight there are no acute changes on her EKG making this possibly consistent with demand ischemia. Patient is culture sent was started on cefepime and vancomycin in the emergency department this will be transition to Zosyn and vancomycin given that the previous Citrobacter was resistant to cephalosporins, the family also commented that she declined somewhat coinciding with the cessation of antifungal treatment for fungal UTI fungal blood cultures will be obtained however the patient will not be started on antifungals at this time Allergies Allergy/AdvReac Type Severity Reaction Status Date / Time castor oil Allergy Severe "TAXANES" Verified 04/04/22 14:11 CAUSE DYSPNEA, RASH, ELEVATED BP docetaxel [From Taxotere] Allergy Severe "TAXANES" Verified 04/04/22 14:11 CAUSE DYSPNEA, RASH, ELEVATED BP paclitaxel Allergy Severe "TAXANES" Verified 04/04/22 14:11 CAUSE DYSPNEA, RASH, ELEVATED BP trimethoprim [From Bactrim] Allergy Severe Anaphylaxis Verified 04/04/22 14:11 Iodinated Contrast Media Allergy Intermediate HIVES/ITCHI Verified 04/04/22 14:11 NG nitrofurantoin Allergy Intermediate CHEST Verified 04/04/22 14:11 PAIN, DYSPNEA Sulfa (Sulfonamide Allergy Intermediate HIVES, Verified 04/04/22 14:11 Antibiotics) ITCHINESS, SHORTNESS OF BREATH phenazopyridine AdvReac Intermediate N/V Verified 04/04/22 14:11 codeine AdvReac COLD Verified 04/04/22 14:11 SWEAT, THINGS START SPINNING, NAUSEA Home Medications Medication Instructions Recorded Confirmed Type metformin 850 mg tablet 850 mg PO BID 07/05/21 04/04/22 History nortriptyline 25 mg capsule 25 mg PO HS #90 caps 11/04/21 04/04/22 Rx folic acid 1 mg tablet 1 mg PO QPM #30 tabs 11/21/21 04/04/22 Rx cholecalciferol (vitamin D3) 25 25 mcg PO DAILY 12/01/21 04/04/22 History mcg (1,000 unit) capsule mecobalamin (vitamin B12) 1,000 1,000 mcg sublingual DAILY 12/01/21 04/04/22 History mcg disintegrating tablet,sublingual nebulizers #1 ea 12/05/21 04/04/22 Rx fluticasone furoate 100 1 inh inhalation DAILY #60 ea 12/07/21 04/04/22 Rx mcg-vilanterol 25 mcg/dose inhalation powder (Breo Ellipta) umeclidinium 62.5 mcg/actuation 1 inh inhalation DAILY #30 ea 12/07/21 04/04/22 Rx blister powder for inhalation (Incruse Ellipta) furosemide 20 mg tablet (Lasix) 40 mg PO QAM 01/16/22 04/04/22 History docusate sodium 100 mg capsule 100 mg PO BID #60 caps 01/22/22 04/04/22 Rx (Colace) polyethylene glycol 3350 17 17 g PO DAILY #238 grams 01/22/22 04/04/22 Rx gram/dose oral powder (Miralax) apixaban 5 mg tablet (Eliquis) 5 mg PO BID #60 tabs 02/10/22 04/04/22 Rx ipratropium 0.5 mg-albuterol 3 mg 3 ml inhalation Q6H PRN wheezing 03/14/22 04/04/22 Rx (2.5 mg base)/3 mL nebulization #360 mL soln olanzapine 2.5 mg tablet 2.5 mg PO HS 03/18/22 04/04/22 History omeprazole 40 mg capsule,delayed 40 mg PO QPM 03/18/22 04/04/22 History release potassium chloride 20 mEq 20 meq PO BID 03/18/22 04/04/22 History tablet,extended release(part/cryst) (Klor-Con M) prednisone 10 mg tablet 10 mg PO DAILY 03/18/22 04/04/22 History Past Med/Surg History Medical History (Updated 04/21/22 @ 12:10 by Bryant Campbell MD) Asthma (04/25/12) Stable and controlled Atrial flutter with rapid ventricular response Chronic dyspnea Chronic obstructive pulmonary disease STABLE- CONTROLLED- ALBUTEROL USE THIS AM COPD (chronic obstructive pulmonary disease) COPD exacerbation Diabetes mellitus, type 2 NIDDM- WELL CONTROLLED AND STABLE Endometrial thickening on ultrasound Ex-smoker GERD (gastroesophageal reflux disease) Hearing deficit NO AIDS Hemoptysis History of breast cancer RIGHT S/P LUMPECTOMY/CHEMO/RADATION (2009)- STABLE AT THIS TIME History of diverticulitis History of liver disease 03/2019 KIMBER[facility] FOR LIVER ABSCESS- GIVEN ABXS X MONTHS- FOLLOWING WITH HEME FOR MONITORING -RECENT CT SCAN 06/16/19- SHOWS ABSCESS TO BE DECREASED TO 3.5CM (SURGEON IS AWARE) Hx of bladder cancer HAD BCG INSTILLATION - DX: 2012 Left rib fracture (2016) Liver abscess Lower extremity edema Malignant neoplasm of lung Bronch with biopsy on 11/15/21 Migraine HX Osteoporosis Osteoporosis Pancytopenia due to antineoplastic chemotherapy PMR (polymyalgia rheumatica) PMR (polymyalgia rheumatica) CHRONIC Port-A-Cath in place Small cell lung cancer Tobacco abuse Tremor RIGHT HAND Ureteral tumor Vertebral fracture LUMBAR AND THORACIC Surgical History (Updated 03/20/22 @ 17:33 by Kel Moreno MD) H/O cystoscopy SEVERAL History of appendectomy History of arthroscopy B/L KNEE History of breast biopsy History of bronchoscopy 11/15/21 History of cholecystectomy History of colonoscopy History of elbow surgery RIGHT History of lumpectomy of right breast History of surgery TURBT X 2; TURBT, CYSTO, RIGHT RPG, STENT: 07/11/18: LMA#4 AT [facility] History of surgery LEFT CHEST PORT Nausea and vomiting after administration of anesthetic agent S/P ablation of atrial flutter Family History Other Adopted Family history unknown Social History Smoking Status: Former smoker Tobacco Type: Cigarettes Cigarettes Per Day: 6; Second Hand Exposure: No; Hx Alcohol Use: No Hx Substance Use: No Preferred Language: Slovenian Communication Ability: Impaired Visual Impairment: No Limitations Hearing Ability: Normal Post Production Assistant Required: No Beliefs That Will Affect Care: None marital status: Single Current Living Situation: Other Current Living Situation Comment: lives with roomate current occupational status: retired Feels Safe at Home: Yes Childhood Exposure to Second-Hand Smoke: Yes caffeine: No during the past year weight has: remained stable Dental Care, Regularly: Yes Physical Activity Frequency: 1-2 Times per Week Seatbelt Use: always Sunscreen Use: Yes Assistive Devices: Hospital Bed, Oxygen - Continuous and Walker Review of Systems Review of Systems: Mild distress and fatigue Patient has alopecia she is slightly confused but remembers me from her last admission no headache, no visual changes no speech or swallowing issues no chest pain, pressure or palpitations Slightly worse than baseline shortness of breath, no cough or wheezes no abdominal pain, nausea or vomiting, no diarrhea or constipation No significant qualitative change in her urine according to the patient no focal joint pain or swelling no back pain, CVA tenderness or radicular pain no bruising, bleeding or rashes Family complaints of altered sensorium Physical Exam Physical Exam: The patient appeared chronically ill with poor functional status and alopecia Vital signs as documented. Head exam is normocephalic atraumatic Neck is without JVD, thyromegaly, or carotid bruits. Lungs are clear to auscultation, absent breath sounds at the left base which is consistent with her previous hiatal hernia no wheezes Cardiac exam, Rhythm is tachycardic.. No murmurs, rubs or gallops. Abdominal exam reveals normal bowel sounds, soft non tender, no masses Extremities are trace edematous and both pedal pulses are present Neurologic exam is alert and oriented x2, no focal loss of strength or sensation Skin is without bruises or rashes Psychologically is with concerns for metabolic encephalopathy Results & Data Results & Data ([facility]) Vital Signs (Past 12 Hours) Vital Signs Temp Pulse Pulse Resp BP BP Pulse Ox 04/21/22 11:50 94 H 24 95 04/21/22 11:45 95 H 24 95 04/21/22 11:45 100/62 04/21/22 11:40 94 H 24 95 04/21/22 11:31 108/51 L 04/21/22 11:31 96 H 21 100 04/21/22 11:30 93 H 24 100 04/21/22 11:20 94 H 24 100 04/21/22 11:16 84/53 L 04/21/22 11:16 94 H 24 100 04/21/22 11:16 94 H 28 H 84/53 L 100 04/21/22 11:10 94 H 25 H 100 04/21/22 11:00 98 H 24 99 04/21/22 10:50 99 H 24 99 04/21/22 10:40 101 H 27 H 98 04/21/22 10:30 103 H 25 H 100 04/21/22 10:20 106 H 25 H 97 04/21/22 10:11 112 H 23 04/21/22 10:11 87/54 L 04/21/22 10:10 119 H 25 H 04/21/22 10:28 04/21/22 10:26 112 H 30 H 99 04/21/22 10:24 97.7 F 112 H 30 H 87/54 L 99 04/21/22 10:07 99 O2 Del Method O2 Flow Rate 04/21/22 11:50 04/21/22 11:45 04/21/22 11:45 04/21/22 11:40 04/21/22 11:31 04/21/22 11:31 04/21/22 11:30 04/21/22 11:20 04/21/22 11:16 04/21/22 11:16 04/21/22 11:16 Nebulizer 8 04/21/22 11:10 04/21/22 11:00 04/21/22 10:50 04/21/22 10:40 04/21/22 10:30 04/21/22 10:20 04/21/22 10:11 04/21/22 10:11 04/21/22 10:10 04/21/22 10:28 Nasal Cannula 2 04/21/22 10:26 Nasal Cannula 2 04/21/22 10:24 Nasal Cannula 2 04/21/22 10:07 Nasal Cannula 2 Diagnostic Findings Chest X-Ray 04/21/22 10:19 XR chest 1V portable CLINICAL HISTORY: Sepsis. Small cell lung cancer. COMPARISON STUDY: Chest radiograph March 18, 2022. Chest CT February 06, 2022. FINDINGS: Left subclavian Thenuh-p-[id number] is in place. Elevation of the left hemidiaphragm is unchanged. There is no pneumothorax. Suspected trace left pleural effusion. Left basilar opacity favors atelectasis. There is no consolidation to suggest pneumonia. Previously described left upper lobe masses are not well visualized on this exam. IMPRESSION: 1. No significant change in appearance of the chest. Stable elevation of the left hemidiaphragm with a trace left pleural effusion and associated atelectasis. 2. Previously described left upper lobe mass not well visualized on this exam. ACT 112: Negative or not required by law. Electronically signed by: Sanchez Begum M.D. 04/21/2022 10:46 AM Abdomen/Pelvis CT 04/21/22 10:[address] WITHOUT CONTRAST CT DOSE: 653.99 mGy.cm HISTORY: abd pain, n/v/d, cancer patient TECHNIQUE: Multiaxial CT images of the abdomen and pelvis were performed without contrast. A dose lowering technique was utilized adhering to the principles of ALARA. COMPARISON STUDY: Abdomen and pelvis CT 03/18/2022. FINDINGS: Elevated left hemidiaphragm again noted. Bibasilar linear densities favor subsegmental atelectasis. Mild motion artifact. No pneumoperitoneum. No pneumatosis. Chronic T12-L2 compression deformities again noted the unenhanced liver, spleen, adrenal glands, and pancreas unremarkable. No renal stones or hydronephrosis. Mild right perinephric edema which has slightly progressed. Prior cholecystectomy. No retroperitoneal lymphadenopathy. Calcified plaque within the normal caliber abdominal aorta. No pelvic lymphadenopathy. There is a Armstrong catheter within the decompressed bladder. The uterus and adnexa are unremarkable. No pelvic free fluid. Suboptimal evaluation for bowel pathology d ue to the lack of intravenous and oral contrast. However, there is no definite bowel wall thickening or obstruction. Colonic diverticulosis. No evidence for acute diverticulitis. Moderate fecal retention is noted. IMPRESSION: 1. No bowel wall thickening or obstruction. 2. Colonic diverticulosis. No evidence for acute diverticulitis. 3. Mild right perinephric edema/fat stranding. This has slightly progressed. Recommend correlation with urinalysis to exclude a cystitis. 4. Moderate fecal retention. 5. Additional findings as described above. ACT 112: Negative or not required by law. Electronically signed by: Sabino Chua M.D. 04/21/2022 12:[address] 04/21/22 10:21 CT OF THE CHEST WITHOUT IV CONTRAST CLINICAL HISTORY: Chest pain. Small cell lung cancer. COMPARISON STUDY: Chest CT February 06, 2022 and chest radiograph performed earlier today. TECHNIQUE: Axial images of the chest were obtained without IV contrast. Images were reviewed in the axial, sagittal, and coronal planes. IV contrast was not administered for this examination. Automated exposure control was utilized for the study. A dose lowering technique was utilized adhering to the principles of ALARA. FINDINGS: Left subclavian Pvcemr-c-Ydgs is in place. No enlarged axillary, mediastinal or hilar lymph nodes are present. Moderate cardiomegaly is noted. T here is extensive coronary calcification. A left pleural effusion has decreased in size since chest CT of March 09, 2022. There is a trace residual left pleural effusion. Left lower lobe opacity reflects atelectasis. Ground glass opacities within the right lower lobe have developed since prior exam. A few nodular densities within the left upper lobe have decreased in size since prior exam. These may reflect lesions. The largest measures 2.5 x 1 cm. It previously measured 3.1 x 1.3 cm. This exam is mildly compromised by respiratory motion artifact. There is no pneumothorax. T11, T12 and L1 compression fractures are unchanged. No acute fractures within the bony thorax are present. There are old bilateral anterior rib fractures. The abdomen and pelvis CT will be reported separately. IMPRESSION: 1. Groundglass opacities with volume loss within the right lower lobe. This favors atelectasis although an infectious process could appear similar. 2. No evidence for progressive metastatic disease within the chest. 3. Decrease in size of a left pleural effusion. 4. Continued decrease in size of left upper lobe lesions. These favor treated lesions. ACT 112: Negative or not required by law. Electronically signed by: Sanchez Begum M.D. 04/21/2022 12:44 PM ECG Additional Comments: EKG shows sinus tachycardia PG Care Time/CCT Total # of Minutes Spent Total Time Spent with Patient: Total time spent is greater than 50% in coordination of care (as documented) at patient's floor/unit and/or counseling patient: Coding Level of Care Code 02384 Initial Inpt Care Lvl 3 Diagnoses Sepsis A41.9 Chronic respiratory failure with hypoxia J96.11 Paroxysmal atrial fibrillation I48.0 Diabetes mellitus, type 2 E11.9 Polymyalgia rheumatica M35.3 Pulmonary embolism I26.99 Compression fracture Vitamin B12 deficiency E53.8 Hx of bladder cancer Z85.51 History of breast cancer Z85.3 History of liver disease Z87.19
[2022-04-21] MEDS ORDERED: HYDROCORTISONE SOD SUCCINATE 100 MG/2 ML VIAL IV STA (12:34)
--- NOTE | 2022-04-21 12:35 | CT Scan Report ---
ABDOMEN AND PELVIS CT WITHOUT CONTRAST CT DOSE: 653.99 mGy.cm HISTORY: abd pain, n/v/d, cancer patient TECHNIQUE: Multiaxial CT images of the abdomen and pelvis were performed without contrast. A dose lo wering technique was utilized adhering to the principles of ALARA. COMPARISON STUDY: Abdomen and pelvis CT 03/18/2022. FINDINGS: Elevated left hemidiaphragm again noted. Bibasilar linear densities favor subsegmental atel ectasis. Mild motion artifact. No pneumoperitoneum. No pneumatosis. Chronic T12-L2 compression deform ities again noted the unenhanced liver, spleen, adrenal glands, and pancreas unremarkable. No renal s tones or hydronephrosis. Mild right perinephric edema which has slightly progressed. Prior cholecyste ctomy. No retroperitoneal lymphadenopathy. Calcified plaque within the normal caliber abdominal aorta . No pelvic lymphadenopathy. There is a Armstrong catheter within the decompressed bladder. The uterus an d adnexa are unremarkable. No pelvic free fluid. Suboptimal evaluation for bowel pathology due to the lack of intravenous and oral contrast. However, there is no definite bowel wall thickening or obstru ction. Colonic diverticulosis. No evidence for acute diverticulitis. Moderate fecal retention is note d. IMPRESSION: 1. No bowel wall thickening or obstruction. 2. Colonic diverticulosis. No evidence for acute diverticulitis. 3. Mild right perinephric edema/fat stranding. This has slightly progressed. Recommend correlation wi urinalysis to exclude a cystitis. 4. Moderate fecal retention. 5. Additional findings as described above. ACT 112: Negative or not required by law. Electronically signed by: Sabino Chua M.D. 04/21/2022 12:34 PM
[2022-04-21] MEDS: MAGNESIUM SULFATE / D5W 1 GM/100 ML BAG IV SCH ×2 (12:43→13:18)
--- NOTE | 2022-04-21 12:45 | CT Scan Report ---
CT OF THE CHEST WITHOUT IV CONTRAST CLINICAL HISTORY: Chest pain. Small cell lung cancer. COMPARISON STUDY: Chest CT February 06, 2022 and chest radiograph performed earlier today. TECHNIQUE: Axial images of the chest were obtained without IV contrast. Images were reviewed in the axial, sagittal, and coronal planes. IV contrast was not administered for this examination. Automat ed exposure control was utilized for the study. A dose lowering technique was utilized adhering to t he principles of ALARA. FINDINGS: Left subclavian Docjqp-t-Dvux is in place. No enlarged axillary, mediastinal or hilar lymp h nodes are present. Moderate cardiomegaly is noted. There is extensive coronary calcification. A lef t pleural effusion has decreased in size since chest CT of March 09, 2022. There is a trace residu al left pleural effusion. Left lower lobe opacity reflects atelectasis. Ground glass opacities within the right lower lobe have developed since prior exam. A few nodular densities within the left upper lobe have decreased in size since prior exam. These may reflect lesions. The largest measures 2.5 x 1 cm. It previously measured 3.1 x 1.3 cm. This exam is mildly compromised by respiratory motion artif act. There is no pneumothorax. T11, T12 and L1 compression fractures are unchanged. No acute fracture s within the bony thorax are present. There are old bilateral anterior rib fractures. The abdomen and pelvis CT will be reported separately. IMPRESSION: 1. Groundglass opacities with volume loss within the right lower lobe. This favors atelectasis althou gh an infectious process could appear similar. 2. No evidence for progressive metastatic disease within the chest. 3. Decrease in size of a left pleural effusion. 4. Continued decrease in size of left upper lobe lesions. These favor treated lesions. ACT 112: Negative or not required by law. Electronically signed by: Sanchez Begum M.D. 04/21/2022 12:44 PM
[2022-04-21] MEDS ORDERED: ALBUT/IPRATROP 3MG/0.5MG NEB 3 ML VIAL NEB PRN (15:23)
[2022-04-21] MEDS ORDERED: GLUCAGON FOR INJ 1 MG VIAL SQ PRN (15:23)
[2022-04-21] MEDS ORDERED: ONDANSETRON INJ 2 MG/ML 2 ML VIAL IV PRN (15:23)
[2022-04-21] MEDS ORDERED: DEXTROSE 50% 50 ML SYRINGE IV PRN (15:23)
[2022-04-21] MEDS ORDERED: ACETAMINOPHEN 325 MG TAB PO PRN (15:23)
[2022-04-21] MEDS ORDERED: CARBOHYDRATES FOR HYPOGLYCEMIA PO PRN (15:23)
[2022-04-21] MEDS ORDERED: GLUCOSE 10 TAB/TUBE PO PRN (15:23)
[2022-04-21] MEDS ORDERED: GLUCOSE 40% GEL 15 GM TUBE PO PRN (15:23)
[2022-04-21] MEDS ORDERED: PIPERACILLIN/TAZOBACTAM 3.375 GM in DEXTROSE 5% 100 ML IV STA (15:40)
[2022-04-21] MEDS: INSULIN ASPART PER UNIT SC SCH ×2 (17:38→21:13)
[2022-04-21] MEDS: PIPERACILLIN/TAZOBACTAM 3.375 GM in DEXTROSE 5% 100 ML IV SCH (21:23)
[2022-04-22] MEDS: SODIUM CHLORIDE 0.9% 1000ML 1,000 ML IV SCH (01:26)
[2022-04-22] MEDS: PIPERACILLIN/TAZOBACTAM 3.375 GM in DEXTROSE 5% 100 ML IV SCH ×3 (05:21→23:25)
[2022-04-22 06:37] LABS: Adenovirus F 40/41 PCR Not Detected (NotDetected); Astrovirus PCR Not Detected (NotDetected); Campylobacter PCR Not Detected (NotDetected); Cryptosporidium PCR Not Detected (NotDetected); Cyclospora cayetanensis PCR Not Detected (NotDetected); Entamoeba histolytica PCR Not Detected (NotDetected); Enteroaggregative E.coli(EAEC) Not Detected (NotDetected); Enteropathogenic E.coli (EPEC) Not Detected (NotDetected); Enterotoxigenic E.coli (ETEC) Not Detected (NotDetected); Giardia lamblia PCR Not Detected (NotDetected); Norovirus GI/GII PCR Not Detected (NotDetected); Plesiomonas shigelloides PCR Not Detected (NotDetected); Rotavirus A PCR Not Detected (NotDetected); Salmonella PCR Not Detected (NotDetected); Sapovirus PCR Not Detected (NotDetected); Shiga-like Toxin E.coli (STEC) Not Detected (NotDetected); Shigella/Enteroinvasive E.coli Not Detected (NotDetected); Vibrio cholerae PCR Not Detected (NotDetected); Vibrio species PCR Not Detected (NotDetected); Yersinia enterocolitica PCR Not Detected (NotDetected)
--- NOTE | 2022-04-22 07:07 | Electrocardiogram Report ---
Test Reason : Blood Pressure : / mmHG Vent. Rate : 114 BPM Atrial Rate : 115 BPM P-R Int : 158 ms QRS Dur : 120 ms QT Int : 350 ms P-R-T Axes : 059 -58 051 degrees QTc Int : 482 ms Sinus tachycardia Right bundle branch block Left anterior fascicular block Bifascicular block Septal infarct , age undetermined Abnormal ECG When compared with ECG of 22-MAR-2022 08:17, Premature atrial complexes are no longer Present Septal infarct is now Present Nonspecific T wave abnormality no longer evident in Anterolateral leads Confirmed by Kel Moreno ([id number]) on 04/22/2022 7:06:53 AM Referred By: REFERRED SELF Confirmed By:Kel Moreno
[2022-04-22 07:08] LABS: Albumin Level 2.7 gm/dl (3.4-5.0); BUN Creatinine Ratio 18.6 (10-20); Bilirubin,Total 0.3 mg/dl (0.2-1.0); Calcium 7.5 mg/dl (8.5-10.1); Creatinine Clr Calc Pharmacy 28.3 ml/min; Est GFR (African American) 41.6 ml/min; Est GFR (Non-African American) 35.9 ml/min; Globulin 2.8 gm/dl (2.5-4.0); Potassium 4.1 mmol/L (3.5-5.1); Total Protein 5.5 gm/dl (6.0-8.3); Troponin I High Sensitivity 21.9 pg/ml (0-14)
[2022-04-22] MEDS: FLUTICASONE/VILANTEROL 100/25MCG 14 PUFFS/INHALER INH SCH (08:53)
[2022-04-22] MEDS: UMECLIDINIUM BROMIDE 62.5MCG/BLISTER 7 PUFFS/INHALER INH SCH (08:53)
[2022-04-22] MEDS: APIXABAN 5 MG TABLET PO SCH ×2 (08:54→20:27)
[2022-04-22] MEDS: predniSONE 10 MG TABLET PO SCH (08:54)
[2022-04-22] MEDS: POLYETHYLENE (MIRALAX) 17 GM PACK PO SCH (08:55)
[2022-04-22] MEDS: INSULIN ASPART PER UNIT SC SCH ×4 (08:57→21:52)
--- NOTE | 2022-04-22 14:36 | Hospitalist Progress Note ---
Date of Service April 22, 2022 Assessment & Plan (1) Sepsis: Plan: -Source of sepsis is most likely urine tract improving Patient has a history of recurrent urinary tract infection, the patient in immunocompromised, she is diagnosed with breast cancer status post radiation therapy, also she is also diagnosed with bladder cancer and she is chronically on steroids for polymyalgia rheumatica, also patient has been recently diagnosed with hepatic abscess at [facility] gram-negative faheem is growing in the urine culture, patient has been recently discharged from facility in 03/22 with UTI/sepsis with Citrobacter, completed 5- day course of treatment with Zosyn. mental status is improved getting close to her baseline, stop vancomycin -Patient received 5-day course of treatment with Zosyn last time, high risk of C. difficile colitis with Zosyn given the patient is immunocompromise add probiotics -Pending urine and blood culture -Her daughter is very frustrated with her prior physicians and me, claiming that the doctors are incompetent and hiding information from her and discharged her early from hospital and nobody is getting to the end of it -She claiming that this is the third time that she has been in the hospital for the same issue, -Given she is suffering from bladder cancer I offered her to be followed outpatient with urologist for possible cystoscopy to rule recurrence, she is slightly behind her surveillance cystoscopy -Patient with previous history of metabolic encephalopathy associate with urinary tract infection. - Patient has some perinephric changes on CT scan which could be consistent with pyelonephritis -Patient does have a port in her left upper chest if she has blood cultures which turned positive this will need to be addressed -Patient has a history of Enterococcus faecalis in February 18 which was resistant to quinolones -Citrobacter braakii resistant to ceftriaxone in March 21 -The patient is high risk for recurrent urinary tract infection due to her age gender and multiple comorbidities including her 2 types of cancers bladder and breast cancer, which can be discharged with prophylactic treatment like nitrofurantoin or Keflex or Bactrim -Avoiding constipation, adequate hydration, proper wiping after bowel movement are also helpful to prevent recurrent infection (2) Encephalopathy: Plan: Improving, most likely secondary to urosepsis, patient is mildly confused (3) JAMIL (acute kidney injury): Plan: Received IV fluid in the ER, most likely prerenal, repeat BMP tomorrow (4) Chronic respiratory failure with hypoxia: Plan: Patient continues on umeclidinium, fluticasone vilanterol all and as needed albuterol/ipratropium. Stable. Typically on 2 L of oxygen at home chronically (5) Paroxysmal atrial fibrillation: Plan: Currently the heart rate is in 90s (6) Diabetes mellitus, type 2: Plan: Patient's metformin is held due to acute kidney injury continue sliding scale (7) Polymyalgia rheumatica: Plan: Patient is given stress dose hydrocortisone 100 mg and will be continued on pr ednisone 10 mg starting on 04/22/2022 (8) Pulmonary embolism: Plan: Pulmonary embolism diagnosed February 18 being treated with apixaban therapy. Patient's apixaban is held this evening on the be restarted on 04/22/2022 in case any invasive procedures will be required (9) Compression fracture: (10) Vitamin B12 deficiency: Plan: Continues on B12 deficiency replacement (11) Hx of bladder cancer: Plan: Patient is slightly behind in her typical surveillance cystoscopies (12) History of breast cancer: Plan: Receiving radiation therapy on outpatient basis (13) History of liver disease: Plan: Patient has a history of a liver abscess treated at [facility] comments on CT scan on presentation showed reducing size of lesions Plan Apixaban as DVT prevention Full code was confirmed with family in the emergency department Admission and Anticipated Discharge Date Admission Date: April 21, 2022 Physical Exam Physical Exam: The patient appeared chronically ill with poor functional status and alopecia Vital signs as documented. Head exam is normocephalic atraumatic Neck is without JVD, thyromegaly, or carotid bruits. Lungs are clear to auscultation, absent breath sounds at the left base which is consistent with her previous hiatal hernia no wheezes Cardiac exam, Rhythm is tachycardic.. No murmurs, rubs or gallops. Abdominal exam reveals normal bowel sounds, soft non tender, no masses Extremities are trace edematous and both pedal pulses are present Neurologic exam is alert and oriented x2, no focal loss of strength or sensation Skin is without bruises or rashes Psychologically is with concerns for metabolic encephalopathy Results & Data Results & Data ([facility]) Vital Signs (Past 12 Hours) Vital Signs Temp Pulse Pulse Resp BP Pulse Ox O2 Del Method 04/22/22 11:59 36.3 C L 94 H 20 129/82 95 Nasal Cannula 04/22/22 08:50 Nasal Cannula 04/22/22 08:22 36.3 C L 81 18 134/84 95 Nasal Cannula 04/22/22 06:01 94 H 04/22/22 03:11 36.3 C L 86 18 128/82 99 Nasal Cannula O2 Flow Rate 04/22/22 11:59 2 04/22/22 08:50 2 04/22/22 08:22 2 04/22/22 06:01 04/22/22 03:11 2 PG Care Time/CCT Total # of Minutes Spent Total Time Spent with Patient: Total time spent is greater than 50% in coordination of care (as documented) at patient's floor/unit and/or counseling patient: Coding Level of Care Code 71993 Subseq Obs Care Lvl 3 Diagnoses Sepsis A41.9 Encephalopathy G93.40 JAMIL (acute kidney injury) N17.9 Chronic respiratory failure with hypoxia J96.11 Paroxysmal atrial fibrillation I48.0 Diabetes mellitus, type 2 E11.9 Polymyalgia rheumatica M35.3 Pulmonary embolism I26.99 Compression fracture Vitamin B12 deficiency E53.8 Hx of bladder cancer Z85.51 History of breast cancer Z85.3 History of liver disease Z87.19
[2022-04-22] MEDS: SODIUM CHLORIDE 0.9% 500 ML IV SCH (15:48)
[2022-04-22] MEDS: ADVANCED PROBIOTIC 1250 MG CAPSULE PO SCH (17:22)
[2022-04-23] MEDS: SODIUM CHLORIDE 0.9% 500 ML IV SCH ×2 (01:40→12:36)
[2022-04-23] MEDS: MELATONIN 3 MG TAB PO PRN ×2 (01:58→22:16)
[2022-04-23] MEDS: PIPERACILLIN/TAZOBACTAM 3.375 GM in DEXTROSE 5% 100 ML IV SCH ×3 (06:00→23:35)
[2022-04-23 06:16] LABS: Hematocrit (blood only) 23.9 % (34.1-44.9); Hemoglobin 7.4 g/dl (12.0-16.0); Mean Corpuscular Hemoglobin 31.2 pg (25.0-34.0); Mean Corpuscular Volume 100.8 fL (80.0-100.0); Mean Platelet Volume 9.2 fL (9.4-12.3); Platelet Count 236 K/uL (130-400); RDW Coefficient of Variation 16.6 % (11.5-14.5); RDW Standard Deviation 61.6 fL (36.4-46.3); Red Blood Count 2.37 M/uL (3.93-5.22); White Blood Count 10.03 K/ul (4.8-10.8)
[2022-04-23 06:32] LABS: Albumin Level 2.5 gm/dl (3.4-5.0); BUN Creatinine Ratio 18.4 (10-20); Bilirubin,Total 0.2 mg/dl (0.2-1.0); Calcium 7.6 mg/dl (8.5-10.1); Creatinine Clr Calc Pharmacy 34.8 ml/min; Est GFR (African American) 53.3 ml/min; Globulin 2.5 gm/dl (2.5-4.0); Potassium 3.7 mmol/L (3.5-5.1)
[2022-04-23] MEDS ORDERED: cefTRIAXone SODIUM 2,000 MG/70 ML BAG IV STA (08:00)
[2022-04-23] MEDS: FLUTICASONE/VILANTEROL 100/25MCG 14 PUFFS/INHALER INH SCH (08:39)
[2022-04-23] MEDS: APIXABAN 5 MG TABLET PO SCH ×2 (08:39→20:09)
[2022-04-23] MEDS: POLYETHYLENE (MIRALAX) 17 GM PACK PO SCH (08:39)
[2022-04-23] MEDS: UMECLIDINIUM BROMIDE 62.5MCG/BLISTER 7 PUFFS/INHALER INH SCH (08:39)
[2022-04-23] MEDS: predniSONE 10 MG TABLET PO SCH (08:39)
[2022-04-23] MEDS: ADVANCED PROBIOTIC 1250 MG CAPSULE PO SCH (08:39)
[2022-04-23] MEDS: INSULIN ASPART PER UNIT SC SCH ×4 (08:41→20:38)
[2022-04-23] MEDS ORDERED: cefTRIAXone SODIUM 1,000 MG in DEXTROSE 5% AD-VAN 50 ML IV SCH (10:15)
--- NOTE | 2022-04-23 12:29 | Hospitalist Progress Note ---
Date of Service April 23, 2022 Assessment & Plan (1) Sepsis: Plan: G neg bacteremia id pendingPseudomonas UTI, likely pyelonephritis Clinically much improved Zosyn day 1 Patient has a history of recurrent urinary tract infection, the patient in immunocompromised, she is diagnosed with breast cancer status post radiation therapy, also she is also diagnosed with bladder cancer and she is chronically on steroids for polymyalgia rheumatica, also patient has been recently diagnosed with hepatic abscess at [facility] gram-negative faheem is growing in the urine culture, patient has been recently discharged from facility in 03/22 with UTI/sepsis with Citrobacter, completed 5- day course of treatment with Zosyn. mental status is improved getting close to her baseline, stop vancomycin -Patient received 5-day course of treatment with Zosyn admission, high risk of C. difficile colitis with Zosyn given the patient is immunocompromise add probiotics -Her daughter is very frustrated with her prior physicians and me, claiming that the doctors are incompetent and hiding information from her and discharged her early from hospital and nobody is getting to the end of it -She claiming that this is the third time that she has been in the hospital for the same issue, -Given she is suffering from bladder cancer I offered her to be followed outpatient with urologist for possible cystoscopy to rule recurrence, she is slightly behind her surveillance cystoscopy -Patient with previous history of metabolic encephalopathy associate with urinary tract infection. - Patient has some perinephric changes on CT scan which could be consistent with pyelonephritis -Patient does have a port in her left upper chest if she has blood cultures which turned positive this will need to be addressed -Patient has a history of Enterococcus faecalis in February 18 which was resistant to quinolones -Citrobacter braakii resistant to ceftriaxone in March 21 -The patient is high risk for recurrent urinary tract infection due to her age gender and multiple comorbidities including her 2 types of cancers bladder and breast cancer, which can be discharged with prophylactic treatment like nitrofurantoin or Keflex or Bactrim -Avoiding constipation, adequate hydration, proper wiping after bowel movement are also helpful to prevent recurrent infection (2) Encephalopathy: Plan: Resolved (3) JAMIL (acute kidney injury): Plan: Resolved but continues to be hypovolemicpotassium 3.5changed to normal saline with 20 mg and chloride 125 cc an hour (4) Chronic respiratory failure with hypoxia: Plan: Diagnosis of COPD and limited stage small cell lung cancer, the latter diagnosis made October of this year and status post radiation therapy with ongoing chemotherapy patient continues on umeclidinium, fluticasone vilanterol all and as needed albuterol/ipratropium. Stable. Typically on 2 L of oxygen at home chronically (5) Paroxysmal atrial fibrillation: Plan: Sinus tachycardia intermittently today. Hypovolemicencourage p.o. fluids (6) Diabetes mellitus, type 2: Plan: Eating wellresume home metformin 500 mg twice daily-lower dose than at home Hemoglobin A1c 5.6% on 03/19/2022 (7) Polymyalgia rheumatica: Plan: Patient is given stress dose hydrocortisone 100 mg and will be continued on prednisone 10 mg starting on 04/22/2022 (8) Pulmonary embolism: Plan: Pulmonary embolism diagnosed February 18 being treated with apixaban therapy. Patient's apixaban is held this evening on the be restarted on 04/22/2022 in case any invasive procedures will be required (9) Compression fracture: Plan: On prednisone 10 mg daily for polymyalgia rheumaticaneeds calcium and vitamin D to protect against osteoporosisbegin (10) Vitamin B12 deficiency: Plan: Resume B12 deficiency replacement po Last B12 1500 03/19 (11) Hx of bladder cancer: Plan: Patient is slightly behind in her typical surveillance cystoscopies-3 cystoscopy was due 3 months ago. Now scheduled for April. Urology notes not available in [facility] Today is a Sunday besides being Elena (12) History of breast cancer: Plan: on Arimidex 1 mg daily since 2010 Will restart Home med rec not yet done (13) History of liver disease: Plan: Patient has a history of a liver abscess treated at [facility] comments on CT scan on presentation showed reducing size of lesions (14) Macrocytic anemia: Plan: Multifactorial reasons for anemiahas 3 different malignancies. Diagnosis of antineoplastic therapy induced anemia in Jan 2022 cardiology note. (15) Small cell lung cancer: Plan: Diagnosed 11/15/2021 :on chemotherapy and radiation therapyreviewed oncology note from December 2021 and radiation oncology note recent Plan Pt evaluation-moderate assistance to even stand up and lives on a single floor with a roommaterecurrent recent falls Full code was confirmed with family in the emergency department I will update daughter Mei today04/23 per patient request Admission and Anticipated Discharge Date Admission Date: April 21, 2022 Subjective at 920 h, no complaints ROS denies SOB, some SUPRAPUBIC PAIN WHICH SHE GETS W utiS THAT HAVE BEEN MORE FREQUENT LAST 2-3 months no n/v/diarrhea/CP Long standing ambulatory dysfunction- usese a walker and slowly walks, falls on and off , LAST FELL TWO WEEKS AGO Physical Exam Physical Exam: alert, lucid historian, good insight and judgement, correctly names month and place H/N: dry tongue, edentulous Chest CTA, left chest port site non tender Abd : non tender, does not have a Armstrong catheter Ext : no edema 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 Psych- appropriate afffect, pleasant Results & Data Results & Data ([facility]) Vital Signs (Past 12 Hours) Vital Signs Temp Pulse Pulse Resp BP Pulse Ox O2 Del Method 04/23/22 11:13 36.4 C L 94 H 17 117/70 97 Nasal Cannula 04/23/22 08:39 Nasal Cannula 04/23/22 06:04 112 H 04/23/22 07:57 36.7 C 112 H 16 127/78 100 Nasal Cannula O2 Flow Rate 04/23/22 11:13 2 04/23/22 08:39 2 04/23/22 06:04 04/23/22 07:57 2 Laboratory Results 04/21/22 10:52 Aerobic Blood Culture - Preliminary Blood Gram negative bacilli Anaerobic Blood Culture - Preliminary No growth in Anaerobic bottle after 48 hours. 04/21/22 12:43 Aerobic Blood Culture - Preliminary Blood No growth in Aerobic bottle after 24 hours. Anaerobic Blood Culture - Final 04/21/22 11:56 Urine Culture - Final Urine,Clean Catch Pseudomonas aeruginosa 04/22/22 Unknown Fungal Smear - Final Urine,Clean Catch Fungal Culture - Preliminary No yeast or fungus isolated - Report 1, Additional Report to Follow. 04/21/22 21:36 Fungal Smear - Final Blood Fungal Culture - Pending 04/23/22 04/23/22 04/23/22 11:50 07:53 05:48 WBC 10.03 RBC 2.37 L Hgb 7.4 L Hct 23.9 L MCV 100.8 H MCH 31.2 MCHC 31.0 L RDW Std Deviation 61.6 H RDW Coeff of Atul 16.6 H Plt Count 236 MPV 9.2 L Sodium Potassium Chloride Carbon Dioxide Anion Gap BUN Creatinine Est Cr Clr Drug Dosing Est GFR ( Amer) Est GFR (Non-Af Amer) BUN/Creatinine Ratio Glucose POC Glucose 75 90 Calcium Total Bilirubin AST ALT Alkaline Phosphatase Total Protein Albumin Globulin Albumin/Globulin Ratio P. aeruginosa (PCR) blaIMP Car res Gene PCR KPC-Carbap Res Gene PCR blaNDM Car Res Gene PCR blaVIM Car Res Gene PCR CTX-M Gene Resistance (PCR) Bld Cult ID Panel PCR 04/23/22 04/22/22 04/22/22 05:48 21:44 16:18 WBC RBC Hgb Hct MCV MCH MCHC RDW Std Deviation RDW Coeff of Atul Plt Count MPV Sodium 139 Potassium 3.7 Chloride 108 H Carbon Dioxide 26 Anion Gap 5 BUN 21 Creatinine 1.14 Est Cr Clr Drug Dosing 34.8 Est GFR ( Amer) 53.3 Est GFR (Non-Af Amer) 46.0 BUN/Creatinine Ratio 18.4 Glucose 114 H POC Glucose 111 H 195 H Calcium 7.6 L Total Bilirubin 0.2 AST 11 L ALT 10 Alkaline Phosphatase 79 Total Protein 5.0 L Albumin 2.5 L Globulin 2.5 Albumin/Globulin Ratio 1.0 P. aeruginosa (PCR) blaIMP Car res Gene PCR KPC-Carbap Res Gene PCR blaNDM Car Res Gene PCR blaVIM Car Res Gene PCR CTX-M Gene Resistance (PCR) Bld Cult ID Panel PCR 04/21/22 10:52 WBC RBC Hgb Hct MCV MCH MCHC RDW Std Deviation RDW Coeff of Atul Plt Count MPV Sodium Potassium Chloride Carbon Dioxide Anion Gap BUN Creatinine Est Cr Clr Drug Dosing Est GFR ( Amer) Est GFR (Non-Af Amer) BUN/Creatinine Ratio Glucose POC Glucose Calcium Total Bilirubin AST ALT Alkaline Phosphatase Total Protein Albumin Globulin Albumin/Globulin Ratio P. aeruginosa (PCR) DETECTED A blaIMP Car res Gene PCR Not Detected KPC-Carbap Res Gene PCR Not Detected blaNDM Car Res Gene PCR Not Detected blaVIM Car Res Gene PCR Not Detected CTX-M Gene Resistance (PCR) Not Detected Bld Cult ID Panel PCR See PCR Comment Medications Administered Home Medications Medication Instructions Recorded Confirmed Last Taken metformin 850 mg tablet 850 mg PO BID 07/05/21 04/04/22 03/17/22 nortriptyline 25 mg capsule 25 mg PO HS #90 caps 11/04/21 04/04/22 03/17/22 folic acid 1 mg tablet 1 mg PO QPM #30 tabs 11/21/21 04/04/22 03/17/22 cholecalciferol (vitamin D3) 25 25 mcg PO DAILY 12/01/21 04/04/22 03/17/22 mcg (1,000 unit) capsule mecobalamin (vitamin B12) 1,000 1,000 mcg sublingual DAILY 12/01/21 04/04/22 03/17/22 mcg disintegrating tablet,sublingual nebulizers #1 ea 12/05/21 04/04/22 Unknown fluticasone furoate 100 1 inh inhalation DAILY #60 ea 12/07/21 04/04/22 Unknown mcg-vilanterol 25 mcg/dose inhalation powder (Breo Ellipta) umeclidinium 62.5 mcg/actuation 1 inh inhalation DAILY #30 ea 12/07/21 04/04/22 Unknown blister powder for inhalation (Incruse Ellipta) furosemide 20 mg tablet (Lasix) 40 mg PO QAM 01/16/22 04/04/22 03/17/22 docusate sodium 100 mg capsule 100 mg PO BID #60 caps 01/22/22 04/04/22 03/17/22 (Colace) polyethylene glycol 3350 17 17 g PO DAILY #238 grams 01/22/22 04/04/22 03/17/22 gram/dose oral powder (Miralax) apixaban 5 mg tablet (Eliquis) 5 mg PO BID #60 tabs 02/10/22 04/04/22 03/17/22 ipratropium 0.5 mg-albuterol 3 mg 3 ml inhalation Q6H PRN wheezing 03/14/22 04/04/22 03/17/22 (2.5 mg base)/3 mL nebulization #360 mL soln olanzapine 2.5 mg tablet 2.5 mg PO HS 03/18/22 04/04/22 03/17/22 omeprazole 40 mg capsule,delayed 40 mg PO QPM 03/18/22 04/04/22 03/17/22 release potassium chloride 20 mEq 20 meq PO BID 03/18/22 04/04/22 03/17/22 tablet,extended release(part/cryst) (Klor-Con M) prednisone 10 mg tablet 10 mg PO DAILY 03/18/22 04/04/22 03/17/22 Active Medications Generic Name Dose Route Start Last Admin Trade Name Cynthia PRN Reason Stop Dose Admin Apixaban 5 mg 04/22/22 09:00 04/23/22 08:39 Apixaban 5 Mg Tablet PO 05/22/22 08:59 5 mg BID SEBASTIEN Administration Fluticasone/Vilanterol 1 puffs 04/22/22 09:00 04/23/22 08:39 Fluticasone/Vilanterol 100/25mcg 14 Puffs/Inhaler INH 05/22/22 08:59 1 puffs DAILY SEBASTIEN Administration Piperacillin Sod/Tazobactam 115 mls @ 28.75 mls/hr 04/22/22 15:00 04/23/22 10:35 Sod 3.375 gm/ Dextrose IV 04/26/22 14:59 Infused Q8H SEBASTIEN Infusion Protocol Potassium Chloride/Sodium Chloride 20 meq in 1,000 mls @ 125 mls/hr 04/23/22 12:30 04/23/22 13:09 Normal Saline W/20 Meq Kcl IV 04/23/22 20:29 125 mls/hr .Q8H SEBASTIEN Administration Protocol Insulin Aspart 0 units 04/21/22 16:30 04/23/22 13:07 Insulin Aspart Per Unit SC 05/21/22 16:29 2 units ACHS SEBASTIEN Administration Lactobacillus Acidophilus 2 cap 04/22/22 15:30 04/23/22 08:39 Advanced Probiotic 1250 Mg Capsule PO 05/22/22 15:29 2 cap DAILY SEBASTIEN Administration Melatonin 6 mg 04/23/22 01:42 04/23/22 01:58 Melatonin 3 Mg Tab PO 05/23/22 01:41 6 mg HS PRN Administration Sleep Polyethylene Glycol 17 gm 04/22/22 09:00 04/23/22 08:39 Polyethylene (Miralax) 17 Gm Pack PO 05/22/22 08:59 17 gm DAILY SEBASTIEN Administration Prednisone 10 mg 04/22/22 09:00 04/23/22 08:39 Prednisone 10 Mg Tablet PO 05/22/22 08:59 10 mg DAILY SEBASTIEN Administration Umeclidinium [place] 1 puffs 04/22/22 09:00 12/25/22 08:39 Umeclidinium [place] 62.5mcg/Blister 7 Puffs/Inhaler INH 05/22/22 08:59 1 puffs DAILY SEBASTIEN Administration PG Care Time/CCT Total # of Minutes Spent Total Time Spent with Patient: Total time spent is greater than 50% in coordination of care (as documented) at patient's floor/unit and/or counseling patient: Coding Level of Care Code 20287 Subseq Hosp Care Lvl 3 Diagnoses Sepsis A41.9 Encephalopathy G93.40 JAMIL (acute kidney injury) N17.9 Chronic respiratory failure with hypoxia J96.11 Paroxysmal atrial fibrillation I48.0 Diabetes mellitus, type 2 E11.9 Polymyalgia rheumatica M35.3 Pulmonary embolism I26.99 Compression fracture Vitamin B12 deficiency E53.8 Hx of bladder cancer Z85.51 History of breast cancer Z85.3 History of liver disease Z87.19 Macrocytic anemia D53.9 Small cell lung cancer C34.90 Comment 30 minutes additional time reviewing past notes and chart in this complex patient
[2022-04-23] MEDS ORDERED: NSS + 20MEQ KCL 20 MEQ/1,000 ML BAG IV SCH (12:30)
[2022-04-23 12:47] LABS: A calco-baum cmplx NotReported Not Detected (NotDetected); Bact fragilis Not Reported Not Detected (NotDetected); C auris Not Reported Not Detected (NotDetected); CTX-M Resistant Gene Not Detected (NotDetected); Calbicans Not Reported Not Detected (NotDetected); Candida glabrata Not Reported Not Detected (NotDetected); Candida krusei Not Reported Not Detected (NotDetected); Cneoformans/gatti Not Reported Not Detected (NotDetected); Cparapsilosis Not Reported Not Detected (NotDetected); Ctropicalis Not Reported Not Detected (NotDetected); E cloacae compx Not Reported Not Detected (NotDetected); Efaecalis Not Reported Not Detected (NotDetected); Efaecium Not Reported Not Detected (NotDetected); Enterobacterales Not Reported Not Detected (NotDetected); Escherichia coli Not Reported Not Detected (NotDetected); H influenzae Not Reported Not Detected (NotDetected); IMP Resistant Gene Not Detected (NotDetected); K aerogenes Not Reported Not Detected (NotDetected); KPC Resistant Gene Not Detected (NotDetected); Koxytoca Not Reported Not Detected (NotDetected); Kpneumoniae grp Not Reported Not Detected (NotDetected); Lmonocyt Not Reported Not Detected (NotDetected); N meningitidis Not Reported Not Detected (NotDetected); NDM Resistant Gene Not Detected (NotDetected); P aeruginosa Not Reported DETECTED (NotDetected); Proteus spp Not Reported Not Detected (NotDetected); Salmonella spp Not Reported Not Detected (NotDetected); Smarcescens Not Reported Not Detected (NotDetected); Staph lugdunensis Not Reported Not Detected (NotDetected); Staph spp. Not Reported Not Detected (NotDetected); Staphaureus Not Reported Not Detected (NotDetected); Staphepi Not Reported Not Detected (NotDetected); Stenmaltophilia Not Reported Not Detected (NotDetected); Strep agal(GrpB) Not Reported Not Detected (NotDetected); Strep pneum Not Reported Not Detected (NotDetected); Strep pyog (GrpA) Not Reported Not Detected (NotDetected); Strep spp Not Reported Not Detected (NotDetected); VIM Resistant Gene Not Detected (NotDetected)
[2022-04-23 13:04] LABS: Pseudomonas aeruginosa DETECTED (NotDetected)
[2022-04-23] MEDS: CYANOCOBALAMIN (B-12) 500 MCG TABLET PO SCH (15:00)
[2022-04-23] MEDS: metFORMIN HCL 500 MG TAB PO SCH (18:05)
[2022-04-23] MEDS: CALCIUM 600MG + VIT D 400 IU TAB PO SCH (20:09)
[2022-04-24 06:40] LABS: Albumin Globulin Ratio 1.1 (0.9-2); Albumin Level 2.8 gm/dl (3.4-5.0); BUN Creatinine Ratio 17.6 (10-20); Bilirubin,Total 0.2 mg/dl (0.2-1.0); Calcium 8.4 mg/dl (8.5-10.1); Creatinine Clr Calc Pharmacy 43.2 ml/min; Est GFR (Non-African American) 60.4 ml/min; Globulin 2.6 gm/dl (2.5-4.0); Potassium 4.1 mmol/L (3.5-5.1); Total Protein 5.4 gm/dl (6.0-8.3)
[2022-04-24] MEDS: PIPERACILLIN/TAZOBACTAM 3.375 GM in DEXTROSE 5% 100 ML IV SCH (08:27)
[2022-04-24] MEDS: FLUTICASONE/VILANTEROL 100/25MCG 14 PUFFS/INHALER INH SCH (08:29)
[2022-04-24] MEDS: UMECLIDINIUM BROMIDE 62.5MCG/BLISTER 7 PUFFS/INHALER INH SCH (08:29)
[2022-04-24] MEDS: CYANOCOBALAMIN (B-12) 500 MCG TABLET PO SCH (08:30)
[2022-04-24] MEDS: CALCIUM 600MG + VIT D 400 IU TAB PO SCH ×2 (08:30→20:40)
[2022-04-24] MEDS: ADVANCED PROBIOTIC 1250 MG CAPSULE PO SCH (08:30)
[2022-04-24] MEDS: metFORMIN HCL 500 MG TAB PO SCH ×2 (08:30→17:17)
[2022-04-24] MEDS: predniSONE 10 MG TABLET PO SCH (08:31)
[2022-04-24] MEDS: POLYETHYLENE (MIRALAX) 17 GM PACK PO SCH (08:31)
[2022-04-24] MEDS: APIXABAN 5 MG TABLET PO SCH ×2 (08:31→20:40)
[2022-04-24] MEDS: INSULIN ASPART PER UNIT SC SCH ×4 (09:03→20:38)
--- NOTE | 2022-04-24 09:33 | Hospitalist Progress Note ---
Date of Service April 24, 2022 Assessment & Plan (1) Sepsis: Plan: G neg bacteremiaPseudomonas UTI- changed to po ( cipro 500 mg bid), likely pyelonephritis - w perinephric changes on CT scan Clinically much improved- hypovolemia persists, in addition ca lung will cause tachycardia Zosyn day 2- now stopped Patient has a history of recurrent urinary tract infection, the patient in immunocompromised, she is diagnosed with breast cancer status post radiation therapy, also she is also diagnosed with bladder cancer and she is chronically on steroids for polymyalgia rheumatica, also patient has been recently diagnosed with hepatic abscess at [facility] gram-negative faheem is growing in the urine culture, patient has been recently discharged from facility in 03/22 with UTI/sepsis with Citrobacter, completed 5-day course of treatment with Zosyn. mental status is improved getting close to her baseline, stop vancomycin -Patient received 5-day course of treatment with Zosyn admission, high risk of C. difficile colitis with Zosyn given the patient is immunocompromise add probiotics -Her daughter is very frustrated with her prior physicians and me, claiming that the doctors are incompetent and hiding information from her and discharged her early from hospital and nobody is getting to the end of it -She claiming that this is the third time that she has been in the hospital for the same issue, 04/[address] Figueroa her urologist since Dr HANS BARBOUR. Dr Figueroa informed me patient has h/o left ureter and bladder ca- s/p laser and last surveillance Apr 2021 was normal. In 2019, he excised a recurrent ca bladder I spoke w daughter Mei last evening and will update again today. Recurrent UTIs need custoscopy for sure- patient missed Jan- see Subjective above Dr Sotelo to get an earleir date than the planned Apr apptment for cystoscopy -Patient has a history of Enterococcus faecalis in February 18 which was resistant to quinolones -Citrobacter braakii resistant to ceftriaxone in March 21 -The patient is high risk for recurrent urinary tract infection due to her age gender and multiple comorbidities including her 2 types of other cancers lung ( ongoing chemotx since October 2021) and breast cancer ( too Arimidex for 10 years- not any more - stopped ), -Avoiding constipation, adequate hydration, proper wiping after bowel movement are also helpful to prevent recurrent infection (2) Encephalopathy: Plan: Resolved (3) JAMIL (acute kidney injury): Plan: Resolved but continues to be hypovolemicnormal BMP LR at 125 cc/ h started this am - after iv fluids same rate all day 04/23 (4) Chronic respiratory failure with hypoxia: Plan: Diagnosis of COPD and limited stage small cell lung cancer, the latter diagnosis made October of this year and status post radiation therapy with ongoing chemotherapy patient continues on umeclidinium, fluticasone vilanterol all and as needed albuterol/ipratropium. Stable. Typically on 2 L of oxygen at home chronically (5) Paroxysmal atrial fibrillation: Plan: Sinus tachycardia here. Hypovolemicencourage p.o. fluids plus ivf Lung ca will cause tachycardia as well Home Lasix not being given here Normal EF 60-65% 12/26/2021 TTE. MILD lvh TSH 3.04 Mar 2022 (6) Diabetes mellitus, type 2: Plan: Eating wellresumed home metformin 500 mg twice daily-lower dose than at home Hemoglobin A1c 5.6% on 03/19/2022 (7) Polymyalgia rheumatica: Plan: Patient is given stress dose hydrocortisone 100 mg and will be continued on prednisone 10 mg starting on 04/22/2022 (8) Pulmonary embolism: Plan: Pulmonary embolism diagnosed February 18 being treated with apixaban therapy- also has p afib. Patient's apixaban is held this evening on the be restarted on 04/22/2022 in case any invasive procedures will be required (9) Compression fracture: Plan: On prednisone 10 mg daily for polymyalgia rheumaticaneeds calcium and vitamin D to protect against osteoporosisbegun 04/23 (10) Vitamin B12 deficiency: Plan: Resume B12 deficiency replacement po Last B12 1500 03/19 (11) Hx of bladder cancer: Plan: Patient is slightly behind in her typical surveillance cystoscopies-3 cystoscopy was due 3 months ago. Now scheduled for April. [facility]. Today is a Sunday besides being [place] (12) History of breast cancer: Plan: was on Arimidex 1 mg daily since 2010 - stopped in the last year or so (13) History of liver disease: Plan: Patient has a history of a liver abscess treated at [facility] comments on CT scan on presentation showed reducing size of lesions (14) Macrocytic anemia: Plan: Multifactorial reasons for anemiahas 3 different malignancies. Diagnosis of antineoplastic therapy induced anemia in Jan 2022 cardiology note. (15) Small cell lung cancer: Plan: Diagnosed 11/15/2021 :on chemotherapy and radiation therapyreviewed oncology note from December 2021 and radiation oncology note recent Plan Pt evaluation-moderate assistance to even stand up and lives on a single floor with a roommaterecurrent recent falls PT evaln for disposition pending Full code was confirmed with family in the emergency department I will update daughter Mei today again Admission and Anticipated Discharge Date Admission Date: April 21, 2022 Subjective at 0915 , feels fine. No pain/ n/v/dizziness Due to new lung CA dx in October,missed cystoscopy Oct after requesting an 8 mth gap between surveillance earlier Still tachycardia- up to 120s- sinus Physical Exam Physical Exam: alert, lying on 2 pillows, lucid historian, good insight and judgement, correctly recounts dates of cystosopy H/N: dry tongue, edentulous 91% 2 l Chest CTA, left chest port site clean CVS- S1 S2 no murmur/ gallop, tachycardia Tele- sinus tach 117 Abd : non tender, does NOT have a Armstrong catheter Ext :no edema COTTON GRADER: grossly intact Psych- appropriate affect, pleasant Results & Data Results & Data ([facility]) Vital Signs (Past 12 Hours) Vital Signs Temp Pulse Resp BP Pulse Ox O2 Del Method 04/24/22 08:14 36.6 C 119 H 19 118/71 91 Room Air 04/24/22 06:27 36.6 C 117 H 18 147/61 H 95 Nasal Cannula 04/24/22 00:00 36.9 C 104 H 18 100/70 97 Room Air Laboratory Results Abnormal lab results 04/21/22 04/23/22 04/23/22 Range/Units 10:52 16:17 20:31 Chloride (98-107) mmol/L POC Glucose 136 H 174 H (70-99) mg/dl Calcium (8.5-10.1) mg/dl AST (13-39) U/L Total Protein (6.0-8.3) gm/dl Albumin (3.4-5.0) gm/dl P. aeruginosa (PCR) DETECTED A (NotDetected) 04/24/22 Range/Units 05:43 Chloride 108 H (98-107) mmol/L POC Glucose (70-99) mg/dl Calcium 8.4 L (8.5-10.1) mg/dl AST 9 L (13-39) U/L Total Protein 5.4 L (6.0-8.3) gm/dl Albumin 2.8 L (3.4-5.0) gm/dl P. aeruginosa (PCR) (NotDetected) PG Care Time/CCT Total # of Minutes Spent Total Time Spent with Patient: Total time spent is greater than 50% in coordination of care (as documented) at patient's floor/unit and/or counseling patient: Coding Level of Care Code 43882 Subseq Hosp Care Lvl 3 Diagnoses Sepsis A41.9 Encephalopathy G93.40 JAMIL (acute kidney injury) N17.9 Chronic respiratory failure with hypoxia J96.11 Paroxysmal atrial fibrillation I48.0 Diabetes mellitus, type 2 E11.9 Polymyalgia rheumatica M35.3 Pulmonary embolism I26.99 Compression fracture Vitamin B12 deficiency E53.8 Hx of bladder cancer Z85.51 History of breast cancer Z85.3 History of liver disease Z87.19 Macrocytic anemia D53.9 Small cell lung cancer C34.90
[2022-04-24] MEDS: CIPROFLOXACIN 500 MG TAB PO SCH ×2 (09:57→20:40)
[2022-04-24] MEDS: LACTATED RINGER'S 1,000 ML IV SCH ×2 (09:58→17:16)
--- NOTE | 2022-04-24 12:13 | Electrocardiogram Report ---
Test Reason : Blood Pressure : / mmHG Vent. Rate : 114 BPM Atrial Rate : 114 BPM P-R Int : 162 ms QRS Dur : 116 ms QT Int : 344 ms P-R-T Axes : 037 -50 022 degrees QTc Int : 474 ms Sinus tachycardia Incomplete right bundle branch block Left anterior fascicular block Septal infarct , age undetermined Possible Lateral infarct (cited on or before 23-APR-2022) Abnormal ECG When compared with ECG of 23-APR-2022 12:28, (unconfirmed) Premature supraventricular complexes are no longer Present Confirmed by Chandan Arrieta ([id number]) on 04/24/2022 12:13:25 PM Referred By: REFERRED SELF Confirmed By:Chandan Arrieta
--- NOTE | 2022-04-24 12:13 | Electrocardiogram Report ---
Test Reason : Blood Pressure : / mmHG Vent. Rate : 114 BPM Atrial Rate : 114 BPM P-R Int : 184 ms QRS Dur : 110 ms QT Int : 360 ms P-R-T Axes : 039 -52 -04 degrees QTc Int : 496 ms Sinus tachycardia with Premature supraventricular complexes Incomplete right bundle branch block Left anterior fascicular block Possible Lateral infarct , age undetermined Abnormal ECG When compared with ECG of 21-APR-2022 10:07, Premature supraventricular complexes are now Present Incomplete right bundle branch block has replaced Right bundle branch block Criteria for Septal infarct are no longer Present Confirmed by Chandan Arrieta ([id number]) on 04/24/2022 12:13:11 PM Referred By: REFERRED SELF Confirmed By:Chandan Arrieta
[2022-04-24] MEDS: MELATONIN 3 MG TAB PO PRN (21:54)
[2022-04-25] MEDS: LACTATED RINGER'S 1,000 ML IV SCH ×3 (01:12→16:17)
[2022-04-25 06:22] LABS: Basophils # (auto) 0.01 K/uL (0-0.2); Basophils % (auto) 0.1 %; Eosinophils # (auto) 0.05 K/uL (0-0.50); Eosinophils % (auto) 0.7 %; Hematocrit (blood only) 25.4 % (34.1-44.9); Immature Granulocytes # (auto) 0.27 K/uL (0.00-0.02); Immature Granulocytes % (auto) 3.5 %; Lymphocytes # (auto) 0.81 K/uL (1.2-3.4); Lymphocytes % (auto) 10.6 %; Mean Corpuscular Hemoglobin 31.6 pg (25.0-34.0); Mean Corpuscular Hgb Conc 31.5 g/dL (32.0-36.0); Mean Corpuscular Volume 100.4 fL (80.0-100.0); Mean Platelet Volume 9.1 fL (9.4-12.3); Monocytes # (auto) 0.56 K/uL (0.24-0.82); Monocytes % (auto) 7.3 %; Neutrophils # (auto) 5.93 K/uL (1.4-6.5); Neutrophils % (auto) 77.8 %; Platelet Count 257 K/uL (130-400); RDW Coefficient of Variation 16.6 % (11.5-14.5); RDW Standard Deviation 61.8 fL (36.4-46.3); Red Blood Count 2.53 M/uL (3.93-5.22); White Blood Count 7.63 K/ul (4.8-10.8)
[2022-04-25 06:41] LABS: Creatinine Clr Calc Pharmacy 56.7 ml/min; Est GFR (African American) 96.2 ml/min; Potassium 3.6 mmol/L (3.5-5.1)
[2022-04-25] MEDS: CYANOCOBALAMIN (B-12) 500 MCG TABLET PO SCH (09:19)
[2022-04-25] MEDS: metFORMIN HCL 500 MG TAB PO SCH ×2 (09:19→17:12)
[2022-04-25] MEDS: APIXABAN 5 MG TABLET PO SCH ×2 (09:19→20:32)
[2022-04-25] MEDS: FLUTICASONE/VILANTEROL 100/25MCG 14 PUFFS/INHALER INH SCH (09:20)
[2022-04-25] MEDS: UMECLIDINIUM BROMIDE 62.5MCG/BLISTER 7 PUFFS/INHALER INH SCH (09:20)
[2022-04-25] MEDS: POLYETHYLENE (MIRALAX) 17 GM PACK PO SCH (09:20)
[2022-04-25] MEDS: predniSONE 10 MG TABLET PO SCH (09:20)
[2022-04-25] MEDS: CIPROFLOXACIN 500 MG TAB PO SCH ×2 (09:20→20:32)
[2022-04-25] MEDS: ADVANCED PROBIOTIC 1250 MG CAPSULE PO SCH (09:20)
[2022-04-25] MEDS: CALCIUM 600MG + VIT D 400 IU TAB PO SCH ×2 (09:20→20:33)
[2022-04-25] MEDS: INSULIN ASPART PER UNIT SC SCH ×4 (09:21→21:08)
--- NOTE | 2022-04-25 18:53 | Hospitalist Progress Note ---
Date of Service April 25, 2022 Assessment & Plan (1) Sepsis: Plan: With Gram neg bacteremiaPseudomonas and with UTI/pyelonephritis seen on CT abd/pel Treated initially with IV Zosyn and then changed to po cipro 500 mg bid-would finish out 2 week course given immunocompromised on chronic steroids Remains tachycardic but this is chronic for her-can dc IVFs No repeat BCxs indicated as she is afebrile, clinically improved -recently diagnosed with hepatic abscess at [facility] ([place], [place]) -patient has been recently discharged from facility in 03/22 with UTI/sepsis with Citrobacter, completed 5-day course of treatment with Zosyn. -Dr Figueroa reports patient has h/o left ureter and bladder ca- s/p laser and last surveillance Apr 2021 was normal. In 2019, he excised a recurrent ca bladder -Needs repeat cystoscopy in near future-is arranged for Apr (2) Encephalopathy: Plan: Resolved, 2/2 sepsis (3) JAMIL (acute kidney injury): Plan: Resolved with IVFs (4) Chronic respiratory failure with hypoxia: Plan: Diagnosis of COPD and limited stage small cell lung cancer, the latter diagnosis made October of this year and status post radiation therapy with ongoing chemotherapy patient continues on umeclidinium, fluticasone vilanterol all and as needed albuterol/ipratropium. Stable. Typically on 2 L of oxygen at home chronically (5) Paroxysmal atrial fibrillation: Plan: Sinus tachycardia here-rates remain in 120s at rest. Initially thought to be from hypovolemia nd probably was initially-given IVFs No change--> dc IVFs ECHO with Normal EF 60-65% 12/26/2021 TSH 3.04 Mar 2022 recently had metoprolol stopped as outpt due to lower BPs at dose of 25mg bid---> restart metoprolol 12.5mg po bid ad watch BP carefully will d/w her Water/Wastewater Project Manager here to see if atrial tach or flutter rather than ST (6) Diabetes mellitus, type 2: Plan: Eating wellresumed home metformin 500 mg twice daily-lower dose than at home Hemoglobin A1c 5.6% on 03/19/2022 (7) Polymyalgia rheumatica: Plan: Patient was given stress dose hydrocortisone 100 mg and now on home dose of prednisone 10 mg starting on 04/22/2022 (8) Pulmonary embolism: Plan: Pulmonary embolism diagnosed February 18 being treated with apixaban therapy- also has p afib. -continue Eliquis 5mg po bid (9) Compression fracture: Plan: On prednisone 10 mg daily for polymyalgia rheumaticaneeds calcium and vitamin D to protect against osteoporosisbegun 04/23 (10) Vitamin B12 deficiency: Plan: Resumed B12 deficiency replacement po Last B12 1500 03/19 (11) Hx of bladder cancer: Plan: Patient is slightly behind in her typical surveillance cystoscopies-3 cystoscopy was due 3 months ago. Now scheduled for April. (12) History of breast cancer: Plan: was on Arimidex 1 mg daily since 2010 - stopped in the last year or so (13) History of liver disease: Plan: Patient has a history of a liver abscess treated at [facility] comments on CT scan on presentation showed reducing size of lesions (14) Macrocytic anemia: Plan: Multifactorial reasons for anemiahas 3 different malignancies. hgb stable at 8 Diagnosis of antineoplastic therapy induced anemia in Jan 2022 cardiology note. continue B12 replacement as wlel f/u Oncology (15) Small cell lung cancer: Plan: Diagnosed 11/15/2021 :on chemotherapy and radiation therapyreviewed oncology note from December 2021 and radiation oncology note recent Plan DVT prophylaxis-ELiquis DIspo-continued stay on tele, improving PT/OT evals pending, pt prefers to go home with HH and family assistance 20/11. Possible discharge in 1-2 days Admission and Anticipated Discharge Date Admission Date: April 21, 2022 Subjective Pt feeling better today. Not really SOB, no CP. No abd pain, is eating. Pt and family report Dr. Dupree of Cardiology recently stopped her metoprolol due to lower bps so that she could be weaned off midodrine. Tele remains with sinus tach in the 120s persistently Review of Systems Review of Systems: All systems reviewed & are unremarkable except as noted in HPI & below Physical Exam Constitutional: WD/WN, vitals as above Eyes: + anicteric sclerae Neck: trachea midline, no thyromegaly Respiratory: normal respiratory effort, lungs clear to auscultation Cardiovascular: Rate/Rhythm: regular rhythm and + tachycardic Heart Sounds: no murmur Extremities: no edema Chest (Breasts): Chest: normal inspection of chest Gastrointestinal (Abdomen): normal bowel sounds, soft, nontender, no hepatosplenomegaly Musculoskeletal: Extremities: extremities normal to inspection; no cyanosis and no clubbing Skin: no rashes, warm and dry Neurologic: moves all extremities and awake; no focal motor deficits Psychiatric: A+Ox3, euthymic affect Lymphatic: no lymphedema Results & Data Results & Data ([facility]) Vital Signs (Past 12 Hours) Vital Signs Temp Pulse Resp BP Pulse Ox O2 Del Method O2 Flow Rate 04/25/22 17:04 36.6 C 116 H 17 106/55 L 99 Nasal Cannula 2 04/25/22 11:37 36.4 C L 106 H 16 95/58 L 94 Nasal Cannula 2 04/25/22 08:15 Nasal Cannula 2 04/25/22 07:12 36.9 C 112 H 18 145/83 H 98 Nasal Cannula 2 Laboratory Results 04/25/22 04/25/22 04/25/22 Range/Units 16:59 12:17 07:59 WBC (4.8-10.8) K/ul RBC (3.93-5.22) M/uL Hgb (12.0-16.0) g/dl Hct (34.1-44.9) % MCV (80.0-100.0) fL MCH (25.0-34.0) pg MCHC (32.0-36.0) g/dL RDW Std Deviation (36.4-46.3) fL RDW Coeff of Atul (11.5-14.5) % Plt Count (130-400) K/uL MPV (9.4-12.3) fL Immature Gran % (Auto) % Neut % (Auto) % Lymph % (Auto) % Green % (Auto) % Eos % (Auto) % Baso % (Auto) % Neut # (Auto) (1.4-6.5) K/uL Lymph # (Auto) (1.2-3.4) K/uL Green # (Auto) (0.24-0.82) K/uL Eos # (Auto) (0-0.50) K/uL Baso # (Auto) (0-0.2) K/uL Immature Gran # (Auto) (0.00-0.02) K/uL Sodium (136-145) mmol/L Potassium (3.5-5.1) mmol/L Chloride (98-107) mmol/L Carbon Dioxide (21-32) mmol/L Anion Gap (3-11) BUN (6-23) mg/dl Creatinine (0.6-1.2) mg/dl Est Cr Clr Drug Dosing ml/min Est GFR ( Amer) ml/min Est GFR (Non-Af Amer) ml/min BUN/Creatinine Ratio (10-20) Glucose (70-99(Fasting)) mg/dl POC Glucose 193 H 87 86 (70-99) mg/dl Calcium (8.5-10.1) mg/dl 04/25/22 04/25/22 04/24/22 Range/Units 05:59 05:59 20:29 WBC 7.63 (4.8-10.8) K/ul RBC 2.53 L (3.93-5.22) M/uL Hgb 8.0 L (12.0-16.0) g/dl Hct 25.4 L (34.1-44.9) % MCV 100.4 H (80.0-100.0) fL MCH 31.6 (25.0-34.0) pg MCHC 31.5 L (32.0-36.0) g/dL RDW Std Deviation 61.8 H (36.4-46.3) fL RDW Coeff of Atul 16.6 H (11.5-14.5) % Plt Count 257 (130-400) K/uL MPV 9.1 L (9.4-12.3) fL Immature Gran % (Auto) 3.5 % Neut % (Auto) 77.8 % Lymph % (Auto) 10.6 % Green % (Auto) 7.3 % Eos % (Auto) 0.7 % Baso % (Auto) 0.1 % Neut # (Auto) 5.93 (1.4-6.5) K/uL Lymph # (Auto) 0.81 L (1.2-3.4) K/uL Green # (Auto) 0.56 (0.24-0.82) K/uL Eos # (Auto) 0.05 (0-0.50) K/uL Baso # (Auto) 0.01 (0-0.2) K/uL Immature Gran # (Auto) 0.27 H (0.00-0.02) K/uL Sodium 139 (136-145) mmol/L Potassium 3.6 (3.5-5.1) mmol/L Chloride 106 (98-107) mmol/L Carbon Dioxide 28 (21-32) mmol/L Anion Gap 5 (3-11) BUN 14 (6-23) mg/dl Creatinine 0.70 (0.6-1.2) mg/dl Est Cr Clr Drug Dosing 56.7 ml/min Est GFR ( Amer) 96.2 ml/min Est GFR (Non-Af Amer) 83.0 ml/min BUN/Creatinine Ratio 20.0 (10-20) Glucose 88 (70-99(Fasting)) mg/dl POC Glucose 86 (70-99) mg/dl Calcium 9.0 (8.5-10.1) mg/dl PG Care Time/CCT Total # of Minutes Spent Total Time Spent with Patient: Total time spent is greater than 50% in coordination of care (as documented) at patient's floor/unit and/or counseling patient: Coding Level of Care Code 29939 Subseq Hosp Care Lvl 2 Diagnoses Sepsis A41.9 Encephalopathy G93.40 JAMIL (acute kidney injury) N17.9 Chronic respiratory failure with hypoxia J96.11 Paroxysmal atrial fibrillation I48.0 Diabetes mellitus, type 2 E11.9 Polymyalgia rheumatica M35.3 Pulmonary embolism I26.99 Compression fracture Vitamin B12 deficiency E53.8 Hx of bladder cancer Z85.51 History of breast cancer Z85.3 History of liver disease Z87.19 Macrocytic anemia D53.9 Small cell lung cancer C34.90
[2022-04-25] MEDS: METOPROLOL TARTRATE 25 MG TAB PO SCH (20:31)
[2022-04-25] MEDS ORDERED: LACTATED RINGER'S 1,000 ML IV SCH (21:00)
[2022-04-26] MEDS: POLYETHYLENE (MIRALAX) 17 GM PACK PO SCH (07:51)
[2022-04-26] MEDS: FLUTICASONE/VILANTEROL 100/25MCG 14 PUFFS/INHALER INH SCH (07:51)
[2022-04-26] MEDS: UMECLIDINIUM BROMIDE 62.5MCG/BLISTER 7 PUFFS/INHALER INH SCH (07:52)
[2022-04-26] MEDS: CIPROFLOXACIN 500 MG TAB PO SCH ×2 (07:52→21:27)
[2022-04-26] MEDS: ADVANCED PROBIOTIC 1250 MG CAPSULE PO SCH (07:59)
[2022-04-26] MEDS: CALCIUM 600MG + VIT D 400 IU TAB PO SCH ×2 (07:59→21:27)
[2022-04-26] MEDS: APIXABAN 5 MG TABLET PO SCH ×2 (07:59→21:27)
[2022-04-26] MEDS: METOPROLOL TARTRATE 25 MG TAB PO SCH ×2 (07:59→21:26)
[2022-04-26] MEDS: predniSONE 10 MG TABLET PO SCH (07:59)
[2022-04-26] MEDS: CYANOCOBALAMIN (B-12) 500 MCG TABLET PO SCH (07:59)
[2022-04-26] MEDS: metFORMIN HCL 500 MG TAB PO SCH ×2 (07:59→18:32)
[2022-04-26] MEDS: INSULIN ASPART PER UNIT SC SCH ×4 (10:02→21:26)
[2022-04-26 11:10] LABS: Basophils # (auto) 0.02 K/uL (0-0.2); Basophils % (auto) 0.2 %; Eosinophils # (auto) 0.07 K/uL (0-0.50); Eosinophils % (auto) 0.6 %; Hematocrit (blood only) 24.6 % (34.1-44.9); Hemoglobin 7.7 g/dl (12.0-16.0); Immature Granulocytes % (auto) 3.5 %; Lymphocytes # (auto) 0.46 K/uL (1.2-3.4); Mean Corpuscular Hemoglobin 31.7 pg (25.0-34.0); Mean Corpuscular Hgb Conc 31.3 g/dL (32.0-36.0); Mean Corpuscular Volume 101.2 fL (80.0-100.0); Mean Platelet Volume 9.1 fL (9.4-12.3); Monocytes # (auto) 0.65 K/uL (0.24-0.82); Monocytes % (auto) 5.6 %; Neutrophils # (auto) 9.98 K/uL (1.4-6.5); Neutrophils % (auto) 86.1 %; Platelet Count 247 K/uL (130-400); RDW Coefficient of Variation 16.6 % (11.5-14.5); Red Blood Count 2.43 M/uL (3.93-5.22); White Blood Count 11.58 K/ul (4.8-10.8)
[2022-04-26 11:25] LABS: RBC Morphology Unremarkable
[2022-04-26 11:31] LABS: BUN Creatinine Ratio 15.6 (10-20); Calcium 9.7 mg/dl (8.5-10.1); Creatinine Clr Calc Pharmacy 51.1 ml/min; Est GFR (African American) 85.7 ml/min; Magnesium 1.1 mg/dl (1.7-2.4); Potassium 3.8 mmol/L (3.5-5.1)
[2022-04-26] MEDS: MAGNESIUM SULFATE / D5W 1 GM/100 ML BAG IV SCH ×4 (12:28→18:31)
--- NOTE | 2022-04-26 19:16 | Hospitalist Progress Note ---
Date of Service April 26, 2022 Assessment & Plan (1) Sepsis: Plan: With Gram neg bacteremiaPseudomonas and with UTI/pyelonephritis seen on CT abd/pel Treated initially with IV Zosyn and then changed to po cipro 500 mg bid-would finish out 2 week course given immunocompromised on chronic steroids Was tachycardic and did not improve much with IVFs, now resolved with restarting previous metoprolol No repeat BCxs indicated as she is afebrile, clinically improved -recently diagnosed with hepatic abscess at [facility] -patient has been recently discharged from facility in 03/22 with UTI/sepsis with Citrobacter, completed 5-day course of treatment with Zosyn. -Dr Figueroa reports patient has h/o left ureter and bladder ca- s/p laser and last surveillance Apr 2021 was normal. In 2019, he excised a recurrent ca bladder -Needs repeat cystoscopy in near future-is arranged for May 22 (2) Encephalopathy: Plan: Resolved, 2/2 sepsis (3) Hypomagnesemia: Plan: severely low-replaced today with 4 grams IV mag likely frm prior diuretic use and poor po intake check again in AM recommend dc of lasix except prn use follow mag as outpt with PCP or oncology (4) JAMIL (acute kidney injury): Plan: Resolved with IVFs lasix has been on hold-would only use prn moving forward as she has been hypovolemic from poor po intake and recent chemotherapy can also stop home po KCl supplement (5) Chronic respiratory failure with hypoxia: Plan: Diagnosis of COPD and limited stage small cell lung cancer, the latter diagnosis made October of this year and status post radiation therapy with ongoing c hemotherapy patient continues on umeclidinium, fluticasone vilanterol all and as needed albuterol/ipratropium. Stable. Typically on 2 L of oxygen at home chronically (6) Paroxysmal atrial fibrillation: Plan: Sinus tachycardia here-rates remained in 120s at rest and now normal in 80-90s with starting low dose metoprolol Initially thought to be from hypovolemia and probably was initially-given IVFs No change--> dcd IVFs ECHO with Normal EF 60-65% 12/26/2021 TSH 3.04 Mar 2022 recently had metoprolol stopped as outpt due to lower BPs at dose of 25mg bid---> restarted metoprolol 12.5mg po bid ad watch BP carefully-BPs great, rates now normal d/w her Dye Lab Technician here who reviewed tele and thinks it is sinus tach (7) Diabetes mellitus, type 2: Plan: Eating wellresumed home metformin 500 mg twice daily-lower dose than at home Hemoglobin A1c 5.6% on 03/19/2022 (8) Polymyalgia rheumatica: Plan: Patient was given stress dose hydrocortisone 100 mg and now on home dose of prednisone 10 mg starting on 04/22/2022 (9) Pulmonary embolism: Plan: Pulmonary embolism diagnosed February 18 being treated with apixaban therapy- also has p afib. -continue Eliquis 5mg po bid (10) Compression fracture: Plan: On prednisone 10 mg daily for polymyalgia rheumaticaneeds calcium and vitamin D to protect against osteoporosisbegun 04/23 (11) Vitamin B12 deficiency: Plan: Resumed B12 deficiency replacement po Last B12 1500 03/19 (12) Hx of bladder cancer: Plan: Patient is slightly behind in her typical surveillance cystoscopies-3 cystoscopy was due 3 months ago. Now scheduled for April. (13) History of breast cancer: Plan: was on Arimidex 1 mg daily since 2010 - stopped in the last year or so (14) History of liver disease: Plan: Patient has a history of a liver abscess treated at [facility] comments on CT scan on presentation showed reducing size of lesions (15) Macrocytic anemia: Plan: Multifactorial reasons for anemiahas 3 different malignancies. hgb stable at 7-8 Fe studies in the AM recent B12 and folate normal 1 month ago Diagnosis of antineoplastic therapy induced anemia most likely continue B12 replacement as well f/u Oncology for repeat CBC (16) Small cell lung cancer: Plan: Diagnosed 11/15/2021 :on chemotherapy and radiation therapyreviewed oncology note from December 2021 and radiation oncology note recent Plan DVT prophylaxis-ELiquis DIspo-continued stay on tele, improving, likely dc to home tomorrow PT/OT faby morris. Pt prefers to go home with HH and family assistance 20/11. Admission and Anticipated Discharge Date Admission Date: April 21, 2022 Subjective Feeling fine, no real complaints. Anxious to go home. Appetite much improved. No BM yet Tele with NSR rates 80-90s since 0900 Review of Systems Review of Systems: All systems reviewed & are unremarkable except as noted in HPI & below Physical Exam Constitutional: WD/WN, vitals as above Eyes: + anicteric sclerae Neck: trachea midline, no thyromegaly Respiratory: normal respiratory effort, lungs clear to auscultation Cardiovascular: Rate/Rhythm: regular rhythm and + tachycardic Heart Sounds: no murmur Extremities: no edema Chest (Breasts): Chest: normal inspection of chest Gastrointestinal (Abdomen): normal bowel sounds, soft, nontender, no hepatosplenomegaly Musculoskeletal: Extremities: extremities normal to inspection; no cyanosis and no clubbing Skin: no rashes, warm and dry Neurologic: moves all extremities and awake; no focal motor deficits Psychiatric: A+Ox3, euthymic affect Lymphatic: no lymphedema Results & Data Results & Data ([facility]) Vital Signs (Past 12 Hours) Vital Signs Temp Pulse Pulse Resp BP Pulse Ox O2 Del Method 04/26/22 16:00 98 H 04/26/22 15:36 36.7 C 87 16 117/71 99 Nasal Cannula 04/26/22 08:00 103 H 04/26/22 11:58 36.4 C L 90 17 116/60 95 Nasal Cannula 04/26/22 10:29 Nasal Cannula 04/26/22 07:55 36.4 C L 117 H 17 131/76 99 Nasal Cannula O2 Flow Rate 04/26/22 16:00 04/26/22 15:36 2 04/26/22 08:00 04/26/22 11:58 04/26/22 10:29 2 04/26/22 07:55 PG Care Time/CCT Total # of Minutes Spent Total Time Spent with Patient: Total time spent is greater than 50% in coordination of care (as documented) at patient's floor/unit and/or counseling patient: Coding Level of Care Code 49401 Subseq Hosp Care Lvl 2 Diagnoses Sepsis A41.9 Encephalopathy G93.40 Hypomagnesemia E83.42 JAMIL (acute kidney injury) N17.9 Chronic respiratory failure with hypoxia J96.11 Paroxysmal atrial fibrillation I48.0 Diabetes mellitus, type 2 E11.9 Polymyalgia rheumatica M35.3 Pulmonary embolism I26.99 Compression fracture Vitamin B12 deficiency E53.8 Hx of bladder cancer Z85.51 History of breast cancer Z85.3 History of liver disease Z87.19 Macrocytic anemia D53.9 Small cell lung cancer C34.90
[2022-04-26] MEDS: SENNA 8.6 MG TAB PO SCH (21:27)
[2022-04-27 06:56] LABS: Basophils # (auto) 0.03 K/uL (0-0.2); Basophils % (auto) 0.4 %; Eosinophils # (auto) 0.09 K/uL (0-0.50); Eosinophils % (auto) 1.1 %; Hematocrit (blood only) 23.7 % (34.1-44.9); Hemoglobin 7.6 g/dl (12.0-16.0); Immature Granulocytes # (auto) 0.25 K/uL (0.00-0.02); Lymphocytes # (auto) 0.87 K/uL (1.2-3.4); Lymphocytes % (auto) 10.4 %; Mean Corpuscular Hemoglobin 31.7 pg (25.0-34.0); Mean Corpuscular Hgb Conc 32.1 g/dL (32.0-36.0); Mean Corpuscular Volume 98.8 fL (80.0-100.0); Mean Platelet Volume 8.9 fL (9.4-12.3); Monocytes # (auto) 0.69 K/uL (0.24-0.82); Monocytes % (auto) 8.2 %; Neutrophils # (auto) 6.46 K/uL (1.4-6.5); Neutrophils % (auto) 76.9 %; Platelet Count 245 K/uL (130-400); RDW Coefficient of Variation 16.3 % (11.5-14.5); RDW Standard Deviation 59.1 fL (36.4-46.3); White Blood Count 8.39 K/ul (4.8-10.8)
[2022-04-27 07:09] VITALS: O2SAT 95
[2022-04-27 07:28] LABS: BUN Creatinine Ratio 20.3 (10-20); Calcium 8.9 mg/dl (8.5-10.1); Creatinine Clr Calc Pharmacy 56.8 ml/min; Est GFR (African American) 96.6 ml/min; Est GFR (Non-African American) 83.4 ml/min; Magnesium 1.9 mg/dl (1.7-2.4); Potassium 3.9 mmol/L (3.5-5.1)
[2022-04-27 07:31] LABS: Basophilic Stippling Occasional
[2022-04-27 07:36] LABS: Ferritin 569.9 ng/ml (8-388)
[2022-04-27] MEDS: INSULIN ASPART PER UNIT SC SCH ×2 (08:26→12:36)
[2022-04-27] MEDS: POLYETHYLENE (MIRALAX) 17 GM PACK PO SCH (08:26)
[2022-04-27] MEDS: CYANOCOBALAMIN (B-12) 500 MCG TABLET PO SCH (08:27)
[2022-04-27] MEDS: predniSONE 10 MG TABLET PO SCH (08:27)
[2022-04-27] MEDS: metFORMIN HCL 500 MG TAB PO SCH (08:28)
[2022-04-27] MEDS: ADVANCED PROBIOTIC 1250 MG CAPSULE PO SCH (08:28)
[2022-04-27] MEDS: METOPROLOL TARTRATE 25 MG TAB PO SCH (08:28)
[2022-04-27] MEDS: APIXABAN 5 MG TABLET PO SCH (08:31)
[2022-04-27] MEDS: CALCIUM 600MG + VIT D 400 IU TAB PO SCH (08:31)
[2022-04-27] MEDS: CIPROFLOXACIN 500 MG TAB PO SCH (08:31)
[2022-04-27] MEDS: UMECLIDINIUM BROMIDE 62.5MCG/BLISTER 7 PUFFS/INHALER INH SCH (08:32)
[2022-04-27] MEDS: SENNA 8.6 MG TAB PO SCH (08:32)
[2022-04-27] MEDS: FLUTICASONE/VILANTEROL 100/25MCG 14 PUFFS/INHALER INH SCH (08:32)
[2022-04-27 11:19] VITALS: BP 91/56; PULSE 64; TEMP 97.2
--- NOTE | 2022-04-27 13:23 | Discharge Summary ---
Date of Service April 27, 2022 Admission HPI Per Admitting Provider 68-year-old female with a history of 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 Patient does not have significant changes on her chest x-ray and pulmonary bio fire is negative, so consideration would be urinary tract infection or intra-abdominal. Initially her LFTs have been analyzed and appears significantly abnormal. Her blood pressure was low on presentation she is being volume resuscitated currently Calcitonin is up lactic acid is normal Patient is a leukocytosis. She is acute kidney injury on history of chronic kidney disease stage III and she is hyperkalemic and hypomagnesemic Elevation of troponin is slight there are no acute changes on her EKG making this possibly consistent with demand ischemia. Patient is culture sent was started on cefepime and vancomycin in the emergency department this will be transition to Zosyn and vancomycin given that the previous Citrobacter was resistant to cephalosporins, the family also commented that she declined somewhat coinciding with the cessation of antifungal treatment for fungal UTI fungal blood cultures will be obtained however the patient will not be started on antifungals at this time Principal Diagnosis Pseudomonas septicemia, acute pyelonephritis, JAMIL, anemia Discharge Exam Constitutional WD/WN, vitals as above Eyes + anicteric sclerae Neck trachea midline, no thyromegaly Respiratory normal respiratory effort, lungs clear to auscultation Cardiovascular Rate/Rhythm: regular rate and regular rhythm Heart Sounds: no murmur Extremities: + edema (trace pitting edema legs bilat) Chest (Breasts) Chest: normal inspection of chest Gastrointestinal (Abdomen) normal bowel sounds, soft, nontender, no hepatosplenomegaly Musculoskeletal Extremities: extremities normal to inspection; no cyanosis and no clubbing Skin no rashes, warm and dry Neurologic moves all extremities and awake; no focal motor deficits Psychiatric A+Ox3, euthymic affect Lymphatic no lymphedema Discharge Data Allergies Allergy/AdvReac Type Severity Reaction Status Date / Time castor oil Allergy Severe "TAXANES" Verified 04/04/22 14:11 CAUSE DYSPNEA, RASH, ELEVATED BP docetaxel [From Taxotere] Allergy Severe "TAXANES" Verified 04/04/22 14:11 CAUSE DYSPNEA, RASH, ELEVATED BP paclitaxel Allergy Severe "TAXANES" Verified 04/04/22 14:11 CAUSE DYSPNEA, RASH, ELEVATED BP trimethoprim [From Bactrim] Allergy Severe Anaphylaxis Verified 04/04/22 14:11 Iodinated Contrast Media Allergy Intermediate HIVES/ITCHI Verified 04/04/22 14:11 NG nitrofurantoin Allergy Intermediate CHEST Verified 04/04/22 14:11 PAIN, DYSPNEA Sulfa (Sulfonamide Allergy Intermediate HIVES, Verified 04/04/22 14:11 Antibiotics) ITCHINESS, SHORTNESS OF BREATH phenazopyridine AdvReac Intermediate N/V Verified 04/04/22 14:11 codeine AdvReac COLD Verified 04/04/22 14:11 SWEAT, THINGS START SPINNING, NAUSEA Consultations 04/21/22 12:25 ED Decision to Admit Stat Ordered Studies 04/21/22 10:21 CT abd pelvis wo con Stat CT chest diagnostic wo con Stat Hospital Course (1) Sepsis: With Gram neg bacteremiaPseudomonas and with UTI/pyelonephritis seen on CT abd/pel Treated initially with IV Zosyn and then changed to po cipro 500 mg bid-would finish out 2 week course given immunocompromised on chronic steroids Was tachycardic and did not improve much with IVFs, now resolved with restarting previous metoprolol No repeat BCxs indicated as she is afebrile, clinically improved -recently diagnosed with hepatic abscess at [facility] -patient has been recently discharged from facility in 03/22 with UTI/sepsis wit h Citrobacter, completed 5-day course of treatment with Zosyn. -Dr Figueroa reports patient has h/o left ureter and bladder ca- s/p laser and last surveillance Apr 2021 was normal. In 2019, he excised a recurrent ca bladder -Needs repeat cystoscopy in near future-is arranged for May 22 (2) Encephalopathy: Resolved, 2/2 sepsis (3) Hypomagnesemia: severely low-likely from prior diuretic use and poor po intake replaced and now resolved recommend dc of lasix except prn use po intake now much improved follow mag level as outpt with PCP or oncology (4) JAMIL (acute kidney injury): Resolved with IVFs lasix has been on hold-would only use prn moving forward as she has been hypovolemic from poor po intake and recent chemotherapy can also stop home po KCl supplement (5) Chronic respiratory failure with hypoxia: Diagnosis of COPD and limited stage small cell lung cancer, the latter diagnosis made October of this year and status post radiation therapy with ongoing chemotherapy patient continues on umeclidinium, fluticasone vilanterol all and as needed albuterol/ipratropium. Stable. Typically on 2 L of oxygen at home chronically (6) Paroxysmal atrial fibrillation: Sinus tachycardia here-rates remained in 120s at rest and now normal in 80-90s with starting low dose metoprolol Initially thought to be from hypovolemia and probably was initially-given IVFs No change--> dcd IVFs ECHO with Normal EF 60-65% 12/26/2021 TSH 3.04 Mar 2022 recently had metoprolol stopped as outpt due to lower BPs at dose of 25mg bid---> restarted metoprolol 12.5mg po bid ad watch BP carefully-BPs great, rates now normal d/w her Work Environment Safety Inspector here who reviewed tele and thinks it is sinus tach and not atrial tach or flutter (7) Diabetes mellitus, type 2: Eating wellresumed home metformin Hemoglobin A1c 5.6% on 03/19/2022 (8) Polymyalgia rheumatica: Patient was given stress dose hydrocortisone 100 mg and now on home dose of prednisone 10 mg starting on 04/22/2022 (9) Pulmonary embolism: Pulmonary embolism diagnosed February 18 being treated with apixaban therapy- also has p afib. -continue Eliquis 5mg po bid (10) Compression fracture: On prednisone 10 mg daily for polymyalgia rheumaticaneeds calcium and vitamin D to protect against osteoporosisbegun 04/23 (11) Vitamin B12 deficiency: Resumed B12 deficiency replacement po Last B12 1500 03/19 (12) Hx of bladder cancer: Patient is slightly behind in her typical surveillance cystoscopies-3 cystoscopy was due 3 months ago. Now scheduled for April. (13) History of breast cancer: was on Arimidex 1 mg daily since 2010 - stopped in the last year or so (14) History of liver disease: Patient has a history of a liver abscess treated at [facility] comments on CT scan on presentation showed reducing size of lesions (15) Macrocytic anemia: Multifactorial reasons for anemiahas 3 different malignancies. hgb stable at 7-8 Fe studies normal recent B12 and folate normal 1 month ago TSH normal in 02/2022 Diagnosis of antineoplastic therapy induced anemia most likely continue B12 and folate replacement as well f/u Oncology for repeat CBC in next 2 weeks sent a message to Dr. Ceja to inform her of the anemia and ensure she has close f/u appt (16) Small cell lung cancer: Diagnosed 11/15/2021 :on chemotherapy and radiation therapyreviewed oncology note from December 2021 and radiation oncology note recent was to have repeat PET/CT and MRI Brain before next Oncology appt-defer to outpt Oncology setting Plan DVT prophylaxis-ELiquis DIspo-doing very well, dc to home today PT/OT evals done. Pt prefers to go home with HH and family assistance 20/11. Of note, she did slide off the side of the bed slowly onto the floor overnight prior to discharge. She did not hit her head and has no back pain or buttocks pain, has been able to do her usual activities. Total Time Total Time Spent Total Time Spent (In Minutes): 35 min Discharge Plan Discharge Items Patient Disposition: Home - Home Health Services Reason For Visit: SEPSIS, SUSPECT URINARY SOURCE POA Discharge Diagnosis: Pseudomonas bacteremia and UTI Hypomagnesemia Anemia Activity: As commented below Bathing: No limitations Exercise/Sports: Gradually increase as tolerated Non-emergency contact: Primary Care Provider, Oncologist and Urologist Call non-emergency contact if: you have any medication questions and your symptoms worsen Follow-up/Referrals: Tia Lacey MD [Physician] - (Follow up within 1-2 weeks.) Diet: Regular Addtl Attending Provider Instructions: You were admitted for sepsis from an infection in your kidney that spread to your blood stream. Please finish out 1 more week of the antibiotic called Cipro, twice daily. You can take the lasix as needed for leg swelling from here on out. You had a fast heart rate and were restarted on a lower dose of metoprolol for this which helped. Your magnesium levels were low but improved with replacement. Please have your doctor follow this level as an outpatient from time to time. You are anemic. Your iron levels, B12, thyroid, and folate levels are all normal. Please follow up with Dr. Ceja from Oncology regarding this. Keep your appointment with Urology for your repeat cystoscopy in April. Pending Studies at Discharge: No Stand-Alone Forms: My CoverMe, Smoking Cessation Medications and DC Order Prescriptions: New ciprofloxacin HCl 500 mg Tablet 500 mg PO BID Qty: 15 0RF metoprolol tartrate 25 mg Tablet 12.5 mg PO BID Qty: 30 0RF Caltrate 600-D Plus Minerals 600 mg calcium- 800 unit-50 mg Tablet 1 tab PO BID Qty: 60 0RF Rx Instructions: OTC Continued mecobalamin (vitamin B12) 1,000 mcg tablet,disintegrating 1,000 mcg sublingual DAILY Rx Instructions: place tablet under tongue and allow to dissolve for at least30 secs before swallowing cholecalciferol (vitamin D3) 25 mcg (1,000 unit) capsule 25 mcg PO DAILY metformin 850 mg tablet 850 mg PO BID folic acid 1 mg tablet 1 mg PO QPM Qty: 30 3RF (DME) nebulizers Misc See Rx Instructions .Route Qty: 1 0RF Rx Instructions: nebulizer and nebulizer kits/supplies ANNALISA-99 Incruse Ellipta 62.5 mcg/actuation blister with device 1 inh inhalation DAILY Qty: 30 2RF fluticasone furoate-vilanterol [Breo Ellipta] 100-25 mcg/dose blister with device 1 inh inhalation DAILY Qty: 60 2RF ipratropium-albuterol 0.5 mg-3 mg(2.5 mg base)/3 mL solution for nebulization 3 ml inhalation Q6H PRN (Reason: wheezing) Qty: 360 1RF polyethylene glycol 3350 [Miralax] 17 gram/dose powder 17 g PO DAILY Qty: 238 0RF docusate sodium [Colace] 100 mg capsule 100 mg PO BID Qty: 60 0RF omeprazole 40 mg capsule,delayed release(DR/EC) 40 mg PO QPM prednisone 10 mg tablet 10 mg PO DAILY Eliquis 5 mg Tablet 5 mg PO BID Qty: 60 0RF Changed furosemide [Lasix] 20 mg tablet 20 mg PO QAM PRN (Reason: leg swelling) Qty: 30 0RF Discontinued nortriptyline 25 mg capsule 25 mg PO HS Qty: 90 3RF olanzapine 2.5 mg tablet 2.5 mg PO HS potassium chloride [Klor-Con M20] 20 mEq tablet,ER particles/crystals 20 meq PO BID Discharge Orders: Discharge Order (Routine); Ordered 04/27/22 Ordered By: Shauna West/Other Patient Handouts: Managing Type 2 Diabetes Admission Data Admit Date/Time: 04/21/22 13:00 Attending Provider: Shauna Bailon Admit Provider: Bryant Campbell Primary Care Provider: Royal Tong Other Providers: Bryant Campbell ; [facility] Coding Level of Care Code D/C DAY MANAGEMENT >30 MINS Diagnoses Sepsis A41.9 Encephalopathy G93.40 Hypomagnesemia E83.42 JAMIL (acute kidney injury) N17.9 Chronic respiratory failure with hypoxia J96.11 Paroxysmal atrial fibrillation I48.0 Diabetes mellitus, type 2 E11.9 Polymyalgia rheumatica M35.3 Pulmonary embolism I26.99 Compression fracture Vitamin B12 deficiency E53.8 Hx of bladder cancer Z85.51 History of breast cancer Z85.3 History of liver disease Z87.19 Macrocytic anemia D53.9 Small cell lung cancer C34.90
== END 2022-04-27 14:47 | disposition home health service (06) | DRG 871 ==
LOC: ED 10:01 → 4W 13:00 → SUATTDRO 13:00 → 4W 13:57

== ENCOUNTER 2022-08-20 05:15 | Inpatient (IN) ==
[2022-08-20] MEDS ORDERED: ACETAMINOPHEN 1,000 MG/100 ML VIAL IV STA (05:43)
[2022-08-20] MEDS ORDERED: CEFEPIME 2,000 MG/20 ML VIAL IV STA (05:44)
[2022-08-20] MEDS ORDERED: FAMOTIDINE 20MG IV PUSH 20 MG/5 ML SYR IV STA (05:44)
--- NOTE | 2022-08-20 05:57 | Emergency Department Note ---
Impression & Plan Acute epigastric pain, Pneumonia, LFTs abnormal, Acute and chronic respiratory failure ED Provider Note ED Provider Note NAME: MEG HOBBS AGE:76 SEX: Female : 1945 ARRIVES VIA: EMS INFORMANT: Patient ED PROVIDER(s): Mae Hahn DO CHIEF COMPLAINT: Epigastric pain HPI: This is a 76-year-old female presents emergency department complaining of epigastric pain which woke her up from sleep. Patient states she had a milder similar episode several days ago that was self-limiting. She states tonight the pain woke her up and was not only epigastric but radiated into the right upper abdomen and around towards her right flank. Patient has had prior cholecystectomy. She denies any recent change in medications or diet. Patient denies any change in urine or stools. She denies fevers, chills, nausea, vo miting. She states no change in the abdominal pain with position, however is more comfortable due to known compression fractures in her back sitting more upright. Patient was noted to be hypoxic compared to baseline by EMS and oxygen was increased. Patient does wear chronic oxygen at home and has a history of COPD. Patient does take daily prednisone. She does have home MDI/nebulizer treatments. PAST MEDICAL HISTORY:See Below PAST SURGICAL HISTORY:See Below FAMILY HISTORY:See Below SOCIAL HISTORY:See Below HOME MEDICATIONS:See Below ALLERGIES:See Below VITALS:See Below PHYSICAL EXAMINATION: GENERAL: alert, well appearing, well nourished, no distress, non-toxic, oxygen via NC in place EYE EXAM: normal conjunctiva, PERRL and EOM's grossly intact OROPHARYNX: no exudate, no erythema, lips, buccal mucosa, and tongue normal and mucous membranes are dry NECK: supple, no nuchal rigidity, no adenopathy, non-tender LUNGS: Clear to auscultation. Normal chest wall mechanics, no w/r/r, no retractions or increased work of breathing HEART: no murmurs, S1 normal and S2 normal ABDOMEN: abdomen soft, epigastric pain with palpation, normo-active bowel sounds, no masses, no rebound or guarding. BACK: Back is symmetrical on inspection and there is no deformity, no midline tenderness, no CVA tenderness. SKIN: no rashes, petechiae, orbruising UPPER EXTREMITIES: upper extremities are grossly normal. FROM, nml pulses b/l. LOWER EXTREMITIES: No pitting edema. FROM, nml pulses b/l. NEURO EXAM: Normal sensorium, cranial nerves II-XII grossly intact, normal speech, no facial droop,nogross weakness of arms, no gross weakness of legs. Gross sensation intact. No ataxia. Vital Signs: reviewed and remarkable Differential Diagnosis: PUD, gastritis, GI bleed, pancreatitis, colitis, bowel obstruction, ACS, AAA, dissection, pneumonia, as well as others were considered MEDICAL DECISION MAKING: This is a 76-year-old female who presents from home due to concern for epigastric pain. Patient also noted to be hypoxic and does wear chronic oxygen at home however required an increased amount per EMS. Patient was otherwise hemodynamically stable on arrival, although was noted to be febrile and tachycardic. Labs drawn and sent, IV established, EKG and chest x-ray performed and interpreted by me at bedside, patient placed on telemetry for additional monitoring. Chest x-ray suggestive of possible evolving pneumonia, so IV antibiotics were added. Urine did not reveal any evidence of infection. No leukocytosis was seen on labs however patient had a Pro-[place] of 10. Due to complaints of upper abdominal pain she was sent for CT imaging. Patient noted to have a lesion in the liver and does have prior history of malignancy. She was noted to have mild elevation of her LFTs which may be secondary to this lesion. Results were discussed with the patient and family at bedside. Her s ymptoms were improved with IV fluids and medications in the emergency room. She was given a nebulizer treatment and had no increased work of breathing and oxygen was able to be weaned down back to baseline. Due to concern for risk of sepsis, pneumonia in the setting of someone with underlying COPD on chronic oxygen and steroids, and the need for further evaluation regarding the abnormal LFTs and liver lesion, case discussed with hospitalist for additional evaluation and management. Consultation(s): 0935: DIscussed with Dr. Steinberg. ER Treatment Provided: See below Diagnostics Interpreted By Me: -ECG: Sinus tachycardia 109, leftward axis, normal QRS and QTc, nonspecific ST/T wave changes -Cardiac Monitoring: An order was placed for continuous cardiac monitoring. The monitor shows a rate of 111 with sinus tachycardia rhythm. -Laboratory studies: As stated above and show below. -Imaging studies: X-ray Chest: A single view study of the chest was reviewed and was negative for cardiomegaly, effusion, pulmonary edema, or wide mediastinum. Appearance of increased right lower lobe markings suggestive of evolving infiltrate Triage Nursing Note Reviewed Prior/Outside Records Reviewed Procedures: [] Critical Care: [] Past Med/Surg History Medical History Asthma (04/25/12) Atrial flutter with rapid ventricular response Chronic dyspnea Chronic hypoxemic respiratory failure Chronic obstructive pulmonary disease Chronic obstructive pulmonary disease COPD (chronic obstructive pulmonary disease) COPD exacerbation Diabetes mellitus, type 2 Endometrial thickening on ultrasound Ex-smoker GERD (gastroesophageal reflux disease) Hearing deficit Hemoptysis History of breast cancer History of diverticulitis History of liver disease Hx of bladder cancer Hypomagnesemia Insomnia Left rib fracture (2016) Liver abscess Lower extremity edema Malignant neoplasm of lung Migraine Osteoporosis Osteoporosis Pancytopenia due to antineoplastic chemotherapy PMR (polymyalgia rheumatica) PMR (polymyalgia rheumatica) Port-A-Cath in place Small cell lung cancer Tobacco abuse Tremor Ureteral tumor Vertebral fracture Surgical History H/O cystoscopy History of appendectomy History of arthroscopy History of breast biopsy History of bronchoscopy History of cholecystectomy History of colonoscopy History of elbow surgery History of lumpectomy of right breast History of surgery History of surgery Nausea and vomiting after administration of anesthetic agent S/P ablation of atrial flutter Family History Other Adopted Family history unknown Social History Smoking Status: Former smoker Tobacco Type: Cigarettes Cigarettes Per Day: Less than 1/2 PPD now;Smoked 50+yrs;; Second Hand Exposure: No; Do You Dip or Chew Tobacco: No; Hx Alcohol Use: No Hx Substance Use: No Preferred Language: Armenian Communication Ability: Effective Visual Impairment: No Limitations Hearing Ability: Hard of Hearing Base Remover Required: No Beliefs That Will Affect Care: None marital status: Single Current Living Situation: Other Current Living Situation Comment: lives with roommate current occupational status: retired Feels Safe at Home: Yes Safety Concerns: Feels Safe At This Time Childhood Exposure to Second-Hand Smoke: Yes caffeine: No during the past year weight has: remained stable Dental Care, Regularly: Yes Physical Activity Frequency: 1-2 Times per Week Seatbelt Use: always Sunscreen Use: Yes Assistive Devices: Denture - Upper, Denture - Lower, Glasses, Walker and Wheelchair Assistive Devices Comment: only upper dentures here Allergies Allergies Allergy/AdvReac Type Severity Reaction Status Date / Time castor oil Allergy Severe "TAXANES" Verified 08/20/22 08:32 CAUSE DYSPNEA, RASH, ELEVATED BP docetaxel [From Taxotere] Allergy Severe "TAXANES" Verified 08/20/22 08:32 CAUSE DYSPNEA, RASH, ELEVATED BP paclitaxel Allergy Severe "TAXANES" Verified 08/20/22 08:32 CAUSE DYSPNEA, RASH, ELEVATED BP trimethoprim [From Bactrim] Allergy Severe Anaphylaxis Verified 08/20/22 08:32 Iodinated Contrast Media Allergy Intermediate HIVES/ITCHI Verified 08/20/22 08:32 NG nitrofurantoin Allergy Intermediate CHEST Verified 08/20/22 08:32 PAIN, DYSPNEA Sulfa (Sulfonamide Allergy Intermediate HIVES, Verified 08/20/22 08:32 Antibiotics) ITCHINESS, SHORTNESS OF BREATH phenazopyridine AdvReac Intermediate N/V Verified 08/20/22 08:32 codeine AdvReac COLD Verified 08/20/22 08:32 SWEAT, THINGS START SPINNING, NAUSEA Home Meds Home Medications Medication Instructions Recorded Confirmed cholecalciferol (vitamin D3) 25 25 mcg PO DAILY 12/01/21 08/20/22 mcg (1,000 unit) capsule mecobalamin (vitamin B12) 1,000 1,000 mcg sublingual DAILY 12/01/21 08/20/22 mcg disintegrating tablet,sublingual omeprazole 40 mg capsule,delayed 40 mg PO QAM 03/18/22 08/20/22 release prednisone 10 mg tablet 10 mg PO DAILY 03/18/22 08/20/22 sennosides 8.6 mg tablet (Senokot) 8.6 mg PO DAILY PRN Constipation 06/01/22 08/20/22 acetaminophen 650 mg 1,950 mg PO Q12H 07/12/22 08/20/22 tablet,extended release (Tylenol Arthritis Pain) melatonin 3 mg capsule 10 mg PO HS PRN Sleep 07/12/22 08/20/22 metoprolol tartrate 25 mg tablet See Rx Instructions .Route .COMPLEX 08/20/22 08/20/22 Previous Rx's Medication Instructions Recorded nebulizers #1 ea 12/05/21 docusate sodium 100 mg capsule 100 mg PO BID #60 caps 01/22/22 (Colace) polyethylene glycol 3350 17 17 g PO DAILY #238 grams 01/22/22 gram/dose oral powder (Miralax) ipratropium 0.5 mg-albuterol 3 mg 3 ml inhalation Q6H PRN wheezing 03/14/22 (2.5 mg base)/3 mL nebulization #360 mL soln calcium 600 mg-D3 800 unit-mag11 1 tab PO BID #60 tabs 04/27/22 50 oi-hxrt-trmmpa-beulah-s.borat tablet (Caltrate 600-D Plus Minerals) furosemide 20 mg tablet (Lasix) 20 mg PO QAM PRN leg swelling #30 04/27/22 tabs fluticasone furoate 100 1 inh inhalation DAILY #60 ea 06/26/22 mcg-vilanterol 25 mcg/dose inhalation powder (Breo Ellipta) umeclidinium 62.5 mcg/actuation 1 inh inhalation DAILY #30 ea 06/26/22 blister powder for inhalation (Incruse Ellipta) trazodone 50 mg tablet 100 mg PO HS #60 tabs 07/07/22 vibegron 75 mg tablet (Gemtesa) 75 mg PO DAILY #90 tabs 07/20/22 buspirone 5 mg tablet 5 mg PO BID #180 tabs 08/09/22 apixaban 5 mg tablet (Eliquis) 5 mg PO BID #60 tabs 08/10/22 olanzapine 5 mg tablet 5 mg PO .QHS #30 tabs 08/15/22 folic acid 1 mg tablet 1 mg PO QPM #30 tabs 08/16/22 Results & Data (ED) Vital Signs Vital Signs - 24 hr 08/20/22 09:40 Pulse Rate 99 H Laboratory Data 08/21/22 06:27 08/21/22 06:27 Lab Results 08/20/22 08/20/22 08/20/22 Range/Units 05:55 05:55 05:55 WBC 9.54 (4.8-10.8) K/ul RBC 3.38 L (4.20-5.40) M/uL Hgb 11.1 L (12.0-16.0) g/dl Hct 33.9 L (37.0-47.0) % MCV 100.3 H (80.0-100.0) fL MCH 32.8 (25.0-34.0) pg MCHC 32.7 (32.0-36.0) g/dL RDW Std Deviation 59.6 H (36.4-46.3) fL RDW Coeff of Atul 16.1 H (11.5-14.5) % Plt Count 168 (130-400) K/uL MPV 9.2 L (9.4-12.4) fL Immature Gran % (Auto) 0.7 % Neut % (Auto) 92.6 % Lymph % (Auto) 1.9 % [place] % (Auto) 4.6 % Eos % (Auto) 0.1 % Baso % (Auto) 0.1 % Neut # (Auto) 8.83 H (1.40-6.50) K/uL Lymph # (Auto) 0.18 L (1.2-3.4) K/uL [place] # (Auto) 0.44 (0.11-0.59) K/uL Eos # (Auto) 0.01 (0-0.50) K/uL Baso # (Auto) 0.01 (0-0.2) K/uL Immature Gran # (Auto) 0.07 (0.01-0.20) K/uL Sodium 139 (136-145) mmol/L Potassium 4.1 (3.5-5.1) mmol/L Chloride 104 (98-107) mmol/L Carbon Dioxide 28 (21-32) mmol/L Anion Gap 7 (3-11) BUN 22 (6-23) mg/dl Creatinine 0.91 (0.6-1.2) mg/dl Est Cr Clr Drug Dosing 44.5 ml/min Est GFR ( Amer) 70.0 ml/min Est GFR (Non-Af Amer) 60.4 ml/min BUN/Creatinine Ratio 24.2 H (10-20) Glucose 98 (70-99(Fasting)) mg/dl Lactate 0.7 (0.4-2.0) mmol/L Calcium 9.3 (8.6-10.3) mg/dl Magnesium 1.8 (1.7-2.4) mg/dl Total Bilirubin 0.6 (0.2-1.0) mg/dl Direct Bilirubin 0.1 (0-0.2) mg/dl AST 72 H (13-39) U/L ALT 80 H (7-52) U/L Alkaline Phosphatase 149 H (34-104) U/L Troponin I High Sens 20.6 H (0-14) pg/ml Total Protein 6.2 (6.0-8.3) gm/dl Albumin 3.7 (3.4-5.0) gm/dl Procalcitonin (0-0.5) ng/ml Urine Color Urine Appearance (Clear) Urine pH (4.5-7.5) Ur Specific [place] (1.000-1.030) Urine Protein (Negative) Urine Glucose (UA) (Negative) Urine Ketones (Negative) Urine Blood (Negative) Urine Nitrite (Negative) Urine Bilirubin (Negative) Urine Urobilinogen (Negative) Ur Leukocyte Esterase (Negative) Urine WBC (Auto) (0-5) /hpf Urine RBC (Auto) (0-4) /hpf U Hyaline Cast (Auto) (0-5) /lpf U Epithel Cells (Auto) (0-5) /lpf Urine Bacteria (Auto) (Negative) Nasal Screen MRSA (PCR) (Negative) SARS-CoV-2 (PCR) (Negative) Influenza Type A (PCR) (Neg) Influenza Type B (PCR) (Neg) RSV (RT-PCR) (Neg) 08/20/22 08/20/22 08/20/22 Range/Units 05:55 05:55 07:13 WBC (4.8-10.8) K/ul RBC (4.20-5.40) M/uL Hgb (12.0-16.0) g/dl Hct (37.0-47.0) % MCV (80.0-100.0) fL MCH (25.0-34.0) pg MCHC (32.0-36.0) g/dL RDW Std Deviation (36.4-46.3) fL RDW Coeff of Atul (11.5-14.5) % Plt Count (130-400) K/uL MPV (9.4-12.4) fL Immature Gran % (Auto) % Neut % (Auto) % Lymph % (Auto) % [place] % (Auto) % Eos % (Auto) % Baso % (Auto) % Neut # (Auto) (1.40-6.50) K/uL Lymph # (Auto) (1.2-3.4) K/uL [place] # (Auto) (0.11-0.59) K/uL Eos # (Auto) (0-0.50) K/uL Baso # (Auto) (0-0.2) K/uL Immature Gran # (Auto) (0.01-0.20) K/uL Sodium (136-145) mmol/L Potassium (3.5-5.1) mmol/L Chloride (98-107) mmol/L Carbon Dioxide (21-32) mmol/L Anion Gap (3-11) BUN (6-23) mg/dl Creatinine (0.6-1.2) mg/dl Est Cr Clr Drug Dosing ml/min Est GFR ( Amer) ml/min Est GFR (Non-Af Amer) ml/min BUN/Creatinine Ratio (10-20) Glucose (70-99(Fasting)) mg/dl Lactate (0.4-2.0) mmol/L Calcium (8.6-10.3) mg/dl Magnesium (1.7-2.4) mg/dl Total Bilirubin (0.2-1.0) mg/dl Direct Bilirubin (0-0.2) mg/dl AST (13-39) U/L ALT (7-52) U/L Alkaline Phosphatase (34-104) U/L Troponin I High Sens (0-14) pg/ml Total Protein (6.0-8.3) gm/dl Albumin (3.4-5.0) gm/dl Procalcitonin 10.95 H (0-0.5) ng/ml Urine Color Yellow Urine Appearance Cloudy A (Clear) Urine pH 8.0 H (4.5-7.5) Ur Specific [place] 1.011 (1.000-1.030) Urine Protein 1+ H (Negative) Urine Glucose (UA) Negative (Negative) Urine Ketones Negative (Negative) Urine Blood Trace H (Negative) Urine Nitrite Negative (Negative) Urine Bilirubin Negative (Negative) Urine Urobilinogen Negative (Negative) Ur Leukocyte Esterase Negative (Negative) Urine WBC (Auto) 1-5 (0-5) /hpf Urine RBC (Auto) 0-4 (0-4) /hpf U Hyaline Cast (Auto) 0 (0-5) /lpf U Epithel Cells (Auto) 5-10 H (0-5) /lpf Urine Bacteria (Auto) Negative (Negative) Nasal Screen MRSA (PCR) (Negative) SARS-CoV-2 (PCR) NEGATIVE (Negative) Influenza Type A (PCR) Negative (Neg) Influenza Type B (PCR) Negative (Neg) RSV (RT-PCR) Negative (Neg) 08/20/22 Range/Units 10:21 WBC (4.8-10.8) K/ul RBC (4.20-5.40) M/uL Hgb (12.0-16.0) g/dl Hct (37.0-47.0) % MCV (80.0-100.0) fL MCH (25.0-34.0) pg MCHC (32.0-36.0) g/dL RDW Std Deviation (36.4-46.3) fL RDW Coeff of Atul (11.5-14.5) % Plt Count (130-400) K/uL MPV (9.4-12.4) fL Immature Gran % (Auto) % Neut % (Auto) % Lymph % (Auto) % [place] % (Auto) % Eos % (Auto) % Baso % (Auto) % Neut # (Auto) (1.40-6.50) K/uL Lymph # (Auto) (1.2-3.4) K/uL [place] # (Auto) (0.11-0.59) K/uL Eos # (Auto) (0-0.50) K/uL Baso # (Auto) (0-0.2) K/uL Immature Gran # (Auto) (0.01-0.20) K/uL Sodium (136-145) mmol/L Potassium (3.5-5.1) mmol/L Chloride (98-107) mmol/L Carbon Dioxide (21-32) mmol/L Anion Gap (3-11) BUN (6-23) mg/dl Creatinine (0.6-1.2) mg/dl Est Cr Clr Drug Dosing ml/min Est GFR ( Amer) ml/min Est GFR (Non-Af Amer) ml/min BUN/Creatinine Ratio (10-20) Glucose (70-99(Fasting)) mg/dl Lactate (0.4-2.0) mmol/L Calcium (8.6-10.3) mg/dl Magnesium (1.7-2.4) mg/dl Total Bilirubin (0.2-1.0) mg/dl Direct Bilirubin (0-0.2) mg/dl AST (13-39) U/L ALT (7-52) U/L Alkaline Phosphatase (34-104) U/L Troponin I High Sens (0-14) pg/ml Total Protein (6.0-8.3) gm/dl Albumin (3.4-5.0) gm/dl Procalcitonin (0-0.5) ng/ml Urine Color Urine Appearance (Clear) Urine pH (4.5-7.5) Ur Specific [place] (1.000-1.030) Urine Protein (Negative) Urine Glucose (UA) (Negative) Urine Ketones (Negative) Urine Blood (Negative) Urine Nitrite (Negative) Urine Bilirubin (Negative) Urine Urobilinogen (Negative) Ur Leukocyte Esterase (Negative) Urine WBC (Auto) (0-5) /hpf Urine RBC (Auto) (0-4) /hpf U Hyaline Cast (Auto) (0-5) /lpf U Epithel Cells (Auto) (0-5) /lpf Urine Bacteria (Auto) (Negative) Nasal Screen MRSA (PCR) Negative (Negative) SARS-CoV-2 (PCR) (Negative) Influenza Type A (PCR) (Neg) Influenza Type B (PCR) (Neg) RSV (RT-PCR) (Neg) Administered Medications Apixaban (Apixaban 5 Mg Tablet) 5 mg PO BID [facility] Stop: 09/19/22 20:59 Last Admin: 08/21/22 08:05 Dose: 5 mg Documented By: Admin: 08/20/22 20:17 Dose: 5 mg Documented By: JAMESON Buspirone HCl (Buspirone 5 Mg Tab) 5 mg PO BID [facility] Stop: 09/19/22 20:59 Last Admin: 08/21/22 08:06 Dose: 5 mg Documented By: Admin: 08/20/22 20:17 Dose: 5 mg Documented By: JAMESON Docusate Sodium (Docusate Sodium 100 Mg Cap) 100 mg PO BID [facility] Stop: 09/19/22 20:59 Last Admin: 08/21/22 08:05 Dose: 100 mg Documented By: Admin: 08/20/22 20:18 Dose: 100 mg Documented By: JAMESON Fluticasone/Vilanterol (Fluticasone/Vilanterol 100/25mcg 14 Puffs/Inhaler) 1 puffs INH DAILY [facility] Stop: 09/19/22 11:14 Last Admin: 08/21/22 08:06 Dose: 1 puffs Documented By: Admin: 08/20/22 15:20 Dose: 1 puffs Documented By: MARK Folic Acid (Folic Acid 1 Mg Tab) 1 mg PO QPM [facility] Stop: 09/19/22 20:59 Last Admin: 08/20/22 20:20 Dose: 1 mg Documented By: JAMESON Piperacillin Sod/Tazobactam (Sod 4.5 gm/ Dextrose) 120 mls @ 30 mls/hr IV Q8H [facility]; Protocol Stop: 08/27/22 17:29 Last Admin: 08/21/22 09:19 Dose: 30 mls/hr Documented By: Infusion: 08/21/22 05:45 Dose: 0 mls/hr Documented By: Admin: 08/21/22 01:42 Dose: 30 mls/hr Documented By: Infusion: 08/20/22 21:13 Dose: 0 mls/hr Documented By: Admin: 08/20/22 17:07 Dose: 30 mls/hr Documented By: MARK Insulin Aspart (Insulin Aspart Per Unit Charge) 0 units SC ACHS [facility] Stop: 09/19/22 11:29 Last Admin: 08/21/22 08:45 Dose: Not Given Documented By: Admin: 08/20/22 20:23 Dose: Not Given Documented By: Admin: 08/20/22 17:17 Dose: Not Given Documented By: Admin: 08/20/22 13:37 Dose: Not Given Documented By: MARK Insulin Glargine (Lantus Per Unit Charge) 5 units SQ BID [facility] Stop: 09/19/22 20:59 Last Admin: 08/21/22 08:46 Dose: Not Given Documented By: Admin: 08/20/22 20:23 Dose: Not Given Documented By: JAMESON Melatonin (Melatonin 3 Mg Tab) 9 mg PO HS PRN PRN Reason: Sleep Stop: 09/19/22 13:20 Last Admin: 08/20/22 21:29 Dose: 9 mg Documented By: JAMESON Metoprolol Tartrate (Metoprolol Tartrate 25 Mg Tab) 12.5 mg PO BID [facility] Stop: 09/19/22 20:59 Last Admin: 08/21/22 08:06 Dose: 12.5 mg Documented By: Admin: 08/20/22 20:14 Dose: 12.5 mg Documented By: JAMESON Miscellaneous (Order Awaiting Action: Vibegron [Gemtesa] 75 Mg Tablet) 1 each N/A QS [facility] Stop: 09/20/22 00:00 Last Admin: 08/20/22 23:52 Dose: Not Given Documented By: JAMESON Olanzapine (Olanzapine 5 Mg Tablet) 5 mg PO HS [facility] Stop: 09/19/22 20:59 Last Admin: 08/20/22 20:23 Dose: 5 mg Documented By: JAMESON Polyethylene Glycol (Polyethylene (Miralax) 17 Gm Pack) 17 gm PO DAILY [facility] Stop: 09/20/22 08:59 Last Admin: 08/21/22 08:06 Dose: 17 gm Documented By: MARK Trazodone HCl (Trazodone Hcl 100 Mg Tab) 100 mg PO HS [facility] Stop: 09/19/22 20:59 Last Admin: 08/20/22 20:19 Dose: 100 mg Documented By: JAMESON Umeclidinium [place] (Umeclidinium [place] 62.5mcg/Blister 7 Puffs/Inhaler) 1 puffs INH DAILY [facility] Stop: 09/19/22 20:44 Last Admin: 08/21/22 08:06 Dose: 1 puffs Documented By: Admin: 08/20/22 21:29 Dose: 1 puffs Documented By: JAMESON Discontinued Medications Acetaminophen (Acetaminophen 325 Mg Tab) 650 mg PO NOW STA Stop: 08/20/22 20:30 Last Admin: 08/20/22 21:28 Dose: 650 mg Documented By: JAMESON Albuterol (Albut/Ipratrop 3mg/0.5mg Neb 3 Ml Vial) 3 ml NEB NOW STA; Protocol Stop: 08/20/22 11:03 Last Admin: 08/20/22 11:38 Dose: 3 ml Documented By: CHELSEA Apixaban (Apixaban 5 Mg Tablet) 5 mg PO NOW STA Stop: 08/20/22 11:31 Last Admin: 08/20/22 12:01 Dose: 5 mg Documented By: CHELSEA Diphenhydramine HCl (Diphenhydramine 50 Mg/Ml Vial) 50 mg IV NOW STA Stop: 08/20/22 18:17 Last Admin: 08/20/22 19:33 Dose: Not Given Documented By: JAMESON Diphenhydramine HCl (Diphenhydramine 50 Mg/Ml Vial) 50 mg IV TODAY@2300 ONE Stop: 08/20/22 23:01 Last Admin: 08/20/22 23:52 Dose: 50 mg Documented By: JAMESON Acetaminophen (Ofirmev) 1,000 mg in 100 mls @ 400 mls/hr IV NOW STA Stop: 08/20/22 05:57 Last Infusion: 08/20/22 06:32 Dose: 0 mls/hr Documented By: Admin: 08/20/22 06:16 Dose: 400 mls/hr Documented By: JULIET Cefepime HCl (Maxipime) 2,000 mg in 20 mls @ 5 mls/min IV NOW STA; Protocol Stop: 08/20/22 05:47 Last Admin: 08/20/22 06:39 Dose: 5 mls/min Documented By: JULIET Famotidine (Pepcid 20mg Iv Push) 20 mg in 5 mls @ 2.5 mls/min IV NOW STA Stop: 08/20/22 05:45 Last Admin: 08/20/22 06:16 Dose: 2.5 mls/min Documented By: JULIET Sodium Chloride (Nss 1000ml) 1,000 mls @ 999 mls/hr IV .Q1H1M ONE Stop: 08/20/22 07:30 Last Infusion: 08/20/22 07:43 Dose: 0 mls/hr Documented By: Admin: 08/20/22 06:40 Dose: 999 mls/hr Documented By: JULIET Sodium Chloride (Nss 1000ml) 1,000 mls @ 999 mls/hr IV .Q1H1M ONE Stop: 08/20/22 08:36 Last Infusion: 08/20/22 08:52 Dose: 0 mls/hr Documented By: Admin: 08/20/22 07:49 Dose: 999 mls/hr Documented By: CHELSEA Sodium Chloride (Nss 1000ml) 1,000 mls @ 125 mls/hr IV .Q8H [facility] Stop: 09/19/22 08:44 Last Admin: 08/20/22 11:13 Dose: Not Given Documented By: CHELSEA Piperacillin Sod/Tazobactam Sod (Zosyn) 4.5 gm in 120 mls @ 240 mls/hr IV NOW STA Stop: 08/20/22 11:58 Last Infusion: 08/20/22 13:35 Dose: 0 mls/hr Documented By: Admin: 08/20/22 11:38 Dose: 240 mls/hr Documented By: CHELSEA Azithromycin 500 mg/ Dextrose 255 mls @ 127.5 mls/hr IV NOW STA Stop: 08/20/22 13:28 Last Infusion: 08/20/22 16:04 Dose: 0 mls/hr Documented By: Admin: 08/20/22 13:34 Dose: 127.5 mls/hr Documented By: MARK Lactated Ringer's (Lr) 1,000 mls @ 80 mls/hr IV .[id number] [facility] Stop: 08/20/22 23:44 Last Infusion: 08/21/22 02:03 Dose: 0 mls/hr Documented By: Admin: 08/20/22 13:33 Dose: 80 mls/hr Documented By: MARK Methylprednisolone 40 mg/ (Syringe) 1 mls @ 1.5 mls/min IV NOW STA Stop: 08/20/22 18:54 Last Admin: 08/20/22 19:42 Dose: 1.5 mls/min Documented By: JAMESON Methylprednisolone 40 mg/ (Syringe) 1 mls @ 1.5 mls/min IV TODAY@2300 ONE Stop: 08/20/22 23:01 Last Admin: 08/20/22 23:52 Dose: 1.5 mls/min Documented By: JAMESON Ioversol (Optiray 320 500ml) 125 ml IV ONCE ONE Stop: 08/21/22 00:57 Last Admin: 08/21/22 00:56 Dose: 98 ml Documented By: ANY Metoprolol Tartrate (Metoprolol Tartrate 25 Mg Tab) 12.5 mg PO NOW STA Stop: 08/20/22 11:01 Last Admin: 08/20/22 11:35 Dose: Not Given Documented By: CHELSEA Olanzapine (Olanzapine 2.5 Mg Tab) 2.5 mg PO ONE ONE Stop: 08/21/22 01:18 Last Admin: 08/21/22 01:42 Dose: 2.5 mg Documented By: JAMESON Prednisone (Prednisone 10 Mg Tablet) 10 mg PO NOW STA Stop: 08/20/22 11:01 Last Admin: 08/20/22 11:38 Dose: 10 mg Documented By: CHELSEA Prednisone (Prednisone 50 Mg Tab) 50 mg PO NOW STA Stop: 08/20/22 18:39 Last Admin: 08/20/22 19:38 Dose: Not Given Documented By: JAMESON Discharge Plan Visit Data Chief Complaint: Chest Pain Stated Complaint: SHORTNESS OF BREATH, CHEST PAIN ED Provider: Mae Hahn Discharge Problem: Acute epigastric pain, Pneumonia, LFTs abnormal, Acute and chronic respiratory failure Patient Disposition: Admitted As Inpatient Discharge Instructions Interventions: ED Discharge Assessment Last Done: 08/20/22 12:29
[2022-08-20 06:22] LABS: Hematocrit (blood only) 33.9 % (37.0-47.0); Hemoglobin 11.1 g/dl (12.0-16.0); Mean Corpuscular Hemoglobin 32.8 pg (25.0-34.0); Mean Corpuscular Hgb Conc 32.7 g/dL (32.0-36.0); Mean Corpuscular Volume 100.3 fL (80.0-100.0); Mean Platelet Volume 9.2 fL (9.4-12.4); Platelet Count 168 K/uL (130-400); RDW Coefficient of Variation 16.1 % (11.5-14.5); RDW Standard Deviation 59.6 fL (36.4-46.3); Red Blood Count 3.38 M/uL (4.20-5.40); White Blood Count 9.54 K/ul (4.8-10.8)
[2022-08-20] MEDS ORDERED: SODIUM CHLORIDE 0.9% 1000ML 1,000 ML IV ONE ×2 (06:30→07:36)
[2022-08-20 06:33] LABS: Albumin Level 3.7 gm/dl (3.4-5.0); BUN Creatinine Ratio 24.2 (10-20); Bilirubin Direct 0.1 mg/dl (0-0.2); Bilirubin,Total 0.6 mg/dl (0.2-1.0); Calcium 9.3 mg/dl (8.6-10.3); Creatinine Clr Calc Pharmacy 44.5 ml/min; Est GFR (Non-African American) 60.4 ml/min; Magnesium 1.8 mg/dl (1.7-2.4); Potassium 4.1 mmol/L (3.5-5.1); Total Protein 6.2 gm/dl (6.0-8.3)
[2022-08-20 06:38] LABS: Troponin I High Sensitivity 20.6 pg/ml (0-14)
[2022-08-20 06:55] LABS: Basophils # (auto) 0.01 K/uL (0-0.2); Basophils % (auto) 0.1 %; Eosinophils # (auto) 0.01 K/uL (0-0.50); Eosinophils % (auto) 0.1 %; Immature Granulocytes # (auto) 0.07 K/uL (0.01-0.20); Immature Granulocytes % (auto) 0.7 %; Lymphocytes # (auto) 0.18 K/uL (1.2-3.4); Lymphocytes % (auto) 1.9 %; Monocytes # (auto) 0.44 K/uL (0.11-0.59); Monocytes % (auto) 4.6 %; Neutrophils # (auto) 8.83 K/uL (1.40-6.50); Neutrophils % (auto) 92.6 %
[2022-08-20 07:39] LABS: Appearance Urine Cloudy (Clear); Bacteria Urine Automated Negative (Negative); Bilirubin Urine Negative (Negative); Blood Urine Trace (Negative); Cast Urine Automated 0 /lpf (0-5); Color Urine Yellow; Glucose Urine UA Negative (Negative); Ketones Urine Negative (Negative); Leukocyte Esterase Urine Negative (Negative); Nitrite Urine Negative (Negative); RBC Urine Automated 0-4 /hpf (0-4); Specific Gravity Urine 1.011 (1.000-1.030); Urobilinogen Urine Negative (Negative)
[2022-08-20 07:40] LABS: Protein Urine 1+ (Negative)
--- NOTE | 2022-08-20 08:05 | XRay Report ---
XR chest 1V portable HISTORY: 76 years-old Female Sepsis acute sepsis COMPARISON: Chest radiograph 04/21/2022, PET CT 05/17/2022 TECHNIQUE: AP view of the chest FINDINGS: Cardiac silhouette is enlarged. Left subclavian [id number] catheter. Chronic mild left hemidiaphra gmatic elevation. Trace right and small left pleural effusions with mild bibasilar opacities. No pneu mothorax or overt pulmonary edema. Degenerative changes of the shoulders and spine. IMPRESSION: 1. Cardiomegaly without acute process. 2. Unchanged left hemidiaphragmatic elevation. 3. Trace right and small left pleural effusions with mild bibasilar consolidation favoring atelectasi s. Pneumonia considered less likely. ACT 112: Negative or not required by law. The above report was generated using voice recognition software. It may contain grammatical, syntax o r spelling errors. Electronically signed by: Christian Salas M.D. 08/20/2022 8:02 AM
[2022-08-20 08:29] LABS: Influenza A virus by PCR Negative (Neg); Influenza B virus by PCR Negative (Neg); RSV by PCR Negative (Neg); SARS CoV2 RNA(COVID-19) Ceph NEGATIVE (Negative)
[2022-08-20] MEDS ORDERED: SODIUM CHLORIDE 0.9% 1000ML 1,000 ML IV SCH (08:45)
--- NOTE | 2022-08-20 08:54 | CT Scan Report ---
ABDOMEN AND PELVIS CT WITHOUT CONTRAST CT DOSE: 892.74 mGy.cm HISTORY: Acute right upper quadrant abdominal pain RUQ pain TECHNIQUE: Multiaxial CT images of the abdomen and pelvis were performed without contrast. A dose lo wering technique was utilized adhering to the principles of ALARA. COMPARISON STUDY: PET CT 05/17/2022, CT abdomen and pelvis 04/21/2022 FINDINGS: Limited exam secondary to respiratory motion artifact and lack of contrast. Cardiomegaly with trace pericardial effusion and extensive coronary artery calcifications. Partially imaged [id number] catheter within the inferior SVC. Moderate left hemidiaphragmatic elevation. Tra ce right and small left pleural effusions with mild bibasilar consolidation. No pneumatosis or pneumo peritoneum. Calcification of the anterior spleen again noted. Moderately atrophic pancreas. Unremarkable adrenal glands. Gallbladder appears to be surgically absent. Ill-defined hypodense 2.6 cm focus within the le ft hepatic lobe on image 36 series 4 appears new from prior. Unchanged right greater than left perine phric inflammatory stranding. No urolith or definite hydronephrosis. Urinary bladder wall thickening with partial distention. Unremarkable uterus. Atherosclerosis of the aorta. No lymphadenopathy identi fied. No bowel obstruction or bowel wall thickening. Colonic diverticulosis. The appendix is not definitive ly seen. No CT evidence of acute appendicitis. Mild colonic fecal retention. Unremarkable soft tissue s. There is no acute fracture. No new destructive bone lesions identified. Chronic T12-L2 compression deformities. IMPRESSION: 1. No acute intra-abdominal or intrapelvic abnormality identified. 2. Artifact versus new hypodense 2.6 cm lesion within the lateral left hepatic lobe. Correlation with a nonemergent follow-up CT of the abdomen with IV contrast recommended. 3. Trace right and small left pleural effusions with mild bibasilar consolidation suggestive of proba ble atelectasis. Pneumonia or aspiration considered less likely. 4. Asymmetric right perinephric stranding is again noted. Correlate with urinalysis. 5. Colonic diverticulosis. 6. Additional findings as above. ACT 112: Negative or not required by law. The above report was generated using voice recognition software. It may contain grammatical, syntax o r spelling errors. Electronically signed by: Christian Salas M.D. 08/20/2022 8:51 AM
[2022-08-20] MEDS ORDERED: MoRPHine SULFATE 2 MG/ML CARP IV PRN (09:19)
--- NOTE | 2022-08-20 10:24 | History & Physical Report ---
Date of Service August 20, 2022 Assessment & Plan (1) Sepsis: Plan: -Admit to the PCU on tele -Initially tachycardic, febrile, with procal of 10 -High risk due to immunocompromised state with cancer and chronic pred therapy -Lactate WNL, S/P 3L NSS in the ED and a dose of Cefepime, currently stable -Blood cultures obtained, will add on urine cultures -Source at this time appears to be pneumonia but need to continue monitoring the liver lesion with her hx of liver abscess -Follow blood and urine cultures -Patient is on 10 mg Prednisone daily for PMR, has been hemodynamically stable today, will give her dose of PO pred now and continue to monitor. If she would become hypotensive would start empiric stress dose steroids -LR at 80 mL/hr x 1 bag on admission -Rest of plan per Pneumonia plan (2) Pneumonia: Plan: -Pneumonia vs atelectasis noted on CXR, procal elevated at 10, no other obvious sources of infection at this time source as UTI, GI, skin/wound -Was initially requiring 3L NC per the ED, currently stable on home 2 L -S/P one dose of cefepime in the ED, will continue with Zosyn and Azithromycin for now -Will add on MRSA swab -Incentive spirometry, flutter therapy, Scheduled DuoNebs, continue home breathing treatments, prn Robitussin DM for cough -Continue O2 via NC for SpO2 of 88-92% (3) Acute epigastric pain: Plan: -Resolved at this time after 2 mg IV morphine and famotidine in the ED -No acute intra-abdominal abnormalities noted -Does have the 2.6 cm hepatic lesion, unsure if this could be causing any of her symptoms -At this time will continue to treat as possible gastritis/refulx with daily pantoprazole -Continue to monitor for recurrence of symptoms (4) Transaminitis: Plan: -AST, ALT, Alk phos all mildly elevated today -Unsure of the cause at this time, she does have the 2.6 cm new hypodense lesion of the left lateral hepatic lobe on CT today -Previous history of liver abscess approximately 5 years ago which required drainage at [place] -Spoke with radiology, they do not think this is a new abscess at this time -Will consult oncology to follow, could me a new metastases from recent lung cancer -Continue to trend LFT's daily for now (5) Liver lesion: Plan: -See transaminitis (6) Elevated troponin: Plan: -Initial high sen trop elevated at 20 -No chest pain or acute ST segment or T-wave changes -Likely due to demand from her acute illness -Repeat second high sen trop STAT, monitor on tele (7) Chronic obstructive pulmonary disease: Plan: -See pneumonia (8) Anxiety: Plan: -Continue Buspar, HS Zyprexa and HS trazadone (9) S/P ablation of atrial flutter: Plan: -Currently stable, was in sinus tach in the ED -Continue metoprolol, will give am dose now -On Eliquis for previous PE (10) Pulmonary embolism: Plan: -Continue Eliquis (11) Polymyalgia rheumatica: Plan: -Continue 10 mg PO prednisone daily with am dose given on admission (12) Diabetes mellitus, type 2: Plan: -Has been well controlled off medication -Monitor BSG ACHS, goal is 110-140 -Lantus 5 units BID, CF 50, CR 15 -Adjust regimen as needed Plan The patient was discussed with Dr. Morgan at the time of the admission History of Present Illness Chief Complaint: Abd pain Primary Care Provider: Genoveva Stallings PA-C Carla is a 76 year old female with a PMH significant for COPD on 2L NC at baseline, invasive breast cancer, bladder cancer, and limited stage small cell lung cancer S/P radiation and chemotherapy, currently on , unprovoked PE on Eliquis, liver abscess S/P drainage at [facility], PMR on chronic prednisone therapy, atrial flutter S/P ablation, Paroxysmal afib, DM II, who presented to the [facility] ED on 08/20/22 with a chief complaint of epigastric pain. She was initially noted to be hypertensive at 209/105, tachycardic in the 110's, febrile at 39C, and requiring increased O2 compared to baseline. Labs were significant for a stable CBC, AST of 72, ALT of 80, alk phos of 149, initial high sen trop of 20.6, procal of 10.95. Chest xray showed mild bibasilar consolidation favoring atelectasis with pneumonia considered less likely. CT of the abd/pelvis WO con showed asymmetric right perinephric stranding and Artifact versus new hypodense 2.6 cm lesion within the lateral left hepatic lobe. Prior to admission the patient was given a total of 3L NSS, Cefepime, 1gm Iv tylenol, 2 mg IV morphine, and 20 mg IV famotidine. At the time of the exam the patient was lying in bed in no acute distress with her daughter and son-in-law sitting bedside. The patient states that she started to develop increased SOB, a productive cough with clear sputum, epigastric abd pain with radiation to the right lateral abdomen approximately 3 days ago. Her symptoms continued to progress to the point that she was having respiratory distress at home and requiring 3L NC compared to her baseline 2L. She describes the abdominal pain as sharp/stabbing, intermittent, and not associated with any particular activity. Her epigastric pain has resolved after receiving the morphine earlier in the ED. Her daughter states that the patient has been having difficulty with adequately taking her inhalers and does not think they she is getting the medication in her lungs. The patient denies recent nausea, vomiting, dysuria, hematuria, diarrhea, melena, bloody BM's, LE swelling and recent sores or skin tears. Her daughter confirms that she checks the patient's skin regularly and she is without new sores. We discussed the CT findings of the possible liver lesion. Her daughter expressed concern of the liver lesion as her previous liver abscess approximately 4-5 years ago was also initially read as not abscess. We discussed code status, at this time the patient and her family want her to be a full code and for her daughter to make medical decisions for her if she cannot make them herself. Please refer to Dr. Morgan's attestation for any changes to the treatment plan Allergies Allergy/AdvReac Type Severity Reaction Status Date / Time castor oil Allergy Severe "TAXANES" Verified 08/20/22 08:32 CAUSE DYSPNEA, RASH, ELEVATED BP docetaxel [From Taxotere] Allergy Severe "TAXANES" Verified 08/20/22 08:32 CAUSE DYSPNEA, RASH, ELEVATED BP paclitaxel Allergy Severe "TAXANES" Verified 08/20/22 08:32 CAUSE DYSPNEA, RASH, ELEVATED BP trimethoprim [From Bactrim] Allergy Severe Anaphylaxis Verified 08/20/22 08:32 Iodinated Contrast Media Allergy Intermediate HIVES/ITCHI Verified 08/20/22 08:32 NG nitrofurantoin Allergy Intermediate CHEST Verified 08/20/22 08:32 PAIN, DYSPNEA Sulfa (Sulfonamide Allergy Intermediate HIVES, Verified 08/20/22 08:32 Antibiotics) ITCHINESS, SHORTNESS OF BREATH phenazopyridine AdvReac Intermediate N/V Verified 08/20/22 08:32 codeine AdvReac COLD Verified 08/20/22 08:32 SWEAT, THINGS START SPINNING, NAUSEA Home Medications Medication Instructions Recorded Confirmed Type cholecalciferol (vitamin D3) 25 25 mcg PO DAILY 12/01/21 08/20/22 History mcg (1,000 unit) capsule mecobalamin (vitamin B12) 1,000 1,000 mcg sublingual DAILY 12/01/21 08/20/22 History mcg disintegrating tablet,sublingual nebulizers #1 ea 12/05/21 08/20/22 Rx docusate sodium 100 mg capsule 100 mg PO BID #60 caps 01/22/22 08/20/22 Rx (Colace) polyethylene glycol 3350 17 17 g PO DAILY #238 grams 01/22/22 08/20/22 Rx gram/dose oral powder (Miralax) ipratropium 0.5 mg-albuterol 3 mg 3 ml inhalation Q6H PRN wheezing 03/14/22 08/20/22 Rx (2.5 mg base)/3 mL nebulization #360 mL soln omeprazole 40 mg capsule,delayed 40 mg PO QAM 03/18/22 08/20/22 History release prednisone 10 mg tablet 10 mg PO DAILY 03/18/22 08/20/22 History calcium 600 mg-D3 800 unit-mag11 1 tab PO BID #60 tabs 04/27/22 08/20/22 Rx 50 pt-icyu-uielaw-beulah-s.borat tablet (Caltrate 600-D Plus Minerals) furosemide 20 mg tablet (Lasix) 20 mg PO QAM PRN leg swelling #30 04/27/22 08/20/22 Rx tabs sennosides 8.6 mg tablet (Senokot) 8.6 mg PO DAILY PRN Constipation 06/01/22 08/20/22 History fluticasone furoate 100 1 inh inhalation DAILY #60 ea 06/26/22 08/20/22 Rx mcg-vilanterol 25 mcg/dose inhalation powder (Breo Ellipta) umeclidinium 62.5 mcg/actuation 1 inh inhalation DAILY #30 ea 06/26/22 08/20/22 Rx blister powder for inhalation (Incruse Ellipta) trazodone 50 mg tablet 100 mg PO HS #60 tabs 07/07/22 08/20/22 Rx acetaminophen 650 mg 1,950 mg PO Q12H 07/12/22 08/20/22 History tablet,extended release (Tylenol Arthritis Pain) melatonin 3 mg capsule 10 mg PO HS PRN Sleep 07/12/22 08/20/22 History vibegron 75 mg tablet (Gemtesa) 75 mg PO DAILY #90 tabs 07/20/22 08/20/22 Rx buspirone 5 mg tablet 5 mg PO BID #180 tabs 08/09/22 08/20/22 Rx apixaban 5 mg tablet (Eliquis) 5 mg PO BID #60 tabs 08/10/22 08/20/22 Rx olanzapine 5 mg tablet 5 mg PO .QHS #30 tabs 08/15/22 08/20/22 Rx folic acid 1 mg tablet 1 mg PO QPM #30 tabs 08/16/22 08/20/22 Rx metoprolol tartrate 25 mg tablet See Rx Instructions .Route .COMPLEX 08/20/22 08/20/22 History Past Med/Surg History Medical History Asthma (04/25/12) Atrial flutter with rapid ventricular response Chronic dyspnea Chronic hypoxemic respiratory failure Chronic obstructive pulmonary disease Chronic obstructive pulmonary disease COPD (chronic obstructive pulmonary disease) COPD exacerbation Diabetes mellitus, type 2 Endometrial thickening on ultrasound Ex-smoker GERD (gastroesophageal reflux disease) Hearing deficit Hemoptysis History of breast cancer History of diverticulitis History of liver disease Hx of bladder cancer Hypomagnesemia Insomnia Left rib fracture (2017) Liver abscess Lower extremity edema Malignant neoplasm of lung Migraine Osteoporosis Osteoporosis Pancytopenia due to antineoplastic chemotherapy PMR (polymyalgia rheumatica) PMR (polymyalgia rheumatica) Port-A-Cath in place Small cell lung cancer Tobacco abuse Tremor Ureteral tumor Vertebral fracture Surgical History H/O cystoscopy History of appendectomy History of arthroscopy History of breast biopsy History of bronchoscopy History of cholecystectomy History of colonoscopy History of elbow surgery History of lumpectomy of right breast History of surgery History of surgery Nausea and vomiting after administration of anesthetic agent S/P ablation of atrial flutter Family History Other Adopted Family history unknown Social History Smoking Status: Former smoker Tobacco Type: Cigarettes Cigarettes Per Day: Less than 1/2 PPD now;Smoked 50+yrs;; Second Hand Exposure: No; Do You Dip or Chew Tobacco: No; Hx Alcohol Use: No Hx Substance Use: No Preferred Language: Dominican Communication Ability: Effective Visual Impairment: No Limitations Hearing Ability: Hard of Hearing [employer] Required: No Beliefs That Will Affect Care: None marital status: Single Current Living Situation: Other Current Living Situation Comment: lives with roommate current occupational status: retired Feels Safe at Home: Yes Safety Concerns: Feels Safe At This Time Childhood Exposure to Second-Hand Smoke: Yes caffeine: No during the past year weight has: remained stable Dental Care, Regularly: Yes Physical Activity Frequency: 1-2 Times per Week Seatbelt Use: always Sunscreen Use: Yes Assistive Devices: Denture - Upper, Denture - Lower, Glasses, Walker and Wheelchair Assistive Devices Comment: only upper dentures here Physical Exam Physical Exam: Physical Exam: General: In no acute distress, stated age, cachectic, non-toxic appearing HEENT: Normocephalic, atraumatic, NC currently in place, no scleral icterus, pupils around round, symmetrical, and reactive to light, dry mucus membranes, trachea midline, no thyromegaly Chest/Pulm: Mediport located in the left upper chest without signs of erythema or swelling, No respiratory distress, symmetrical chest expansion, decreased breath sounds in the BL lower lung hernandez with expiatory wheezing in the upper lung hernandez Cardiac: RRR, no murmurs noted Abdomen: Negative for ascites and bruising, normoactive bowel sounds, soft, non-tender to palpation throughout Musculoskeletal: Symmetrical and without signs of acute trauma, upper and lower extremities with full ROM, no atrophy, spasticity, or flaccidity Extremities: Radial, dorsalis pedis, and posterior tibial pulses are intact and symmetrical, no edema noted in the BL LE's Skin: Warm, dry, no rashes , lesions, or scars noted Neuro: Alert and oriented to person, place, month, year, and president, no focal defects, CN II-XII tested and intact, no tremors noted Psych: No acute distress, calm and cooperative during the exam Results & Data Results & Data Vital Signs (Past 12 Hours) Vital Signs Temp Pulse Pulse Resp BP BP Pulse Ox 08/20/22 09:40 99 H 08/20/22 08:34 37.4 C 99 H 20 123/64 96 08/20/22 08:34 37.4 C 08/20/22 07:13 112 H 20 151/86 H 94 08/20/22 06:50 112 H 24 08/20/22 06:45 113 H 24 147/88 H 95 08/20/22 06:40 111 H 21 95 08/20/22 06:30 113 H 20 174/87 H 95 08/20/22 06:20 116 H 17 95 08/20/22 06:15 115 H 22 196/98 H 95 08/20/22 06:10 136 H 24 93 08/20/22 06:09 115 H 24 207/101 H 93 08/20/22 06:01 122 H 14 209/105 H 08/20/22 06:00 110 H 16 08/20/22 05:50 95 08/20/22 05:40 114 H 22 94 08/20/22 05:30 117 H 37 H 164/102 H 93 08/20/22 05:39 117 H 16 93 08/20/22 05:31 114 H 08/20/22 06:31 39.3 C H 08/20/22 05:09 08/20/22 05:09 164/102 H 08/20/22 05:09 38.2 C H 110 H 20 93 O2 Del Method O2 Flow Rate 08/20/22 09:40 08/20/22 08:34 Nasal Cannula 3 08/20/22 08:34 08/20/22 07:13 Nasal Cannula 3 08/20/22 06:50 08/20/22 06:45 08/20/22 06:40 08/20/22 06:30 08/20/22 06:20 08/20/22 06:15 08/20/22 06:10 08/20/22 06:09 08/20/22 06:01 08/20/22 06:00 08/20/22 05:50 08/20/22 05:40 08/20/22 05:30 08/20/22 05:39 Room Air 3 08/20/22 05:31 08/20/22 06:31 08/20/22 05:09 Nasal Cannula 2 08/20/22 05:09 08/20/22 05:09 Room Air 2 Laboratory Results Abnormal lab results 08/20/22 08/20/22 08/20/22 Range/Units 05:55 05:55 05:55 RBC 3.38 L (4.20-5.40) M/uL Hgb 11.1 L (12.0-16.0) g/dl Hct 33.9 L (37.0-47.0) % MCV 100.3 H (80.0-100.0) fL RDW Std Deviation 59.6 H (36.4-46.3) fL RDW Coeff of Atul 16.1 H (11.5-14.5) % MPV 9.2 L (9.4-12.4) fL Neut # (Auto) 8.83 H (1.40-6.50) K/uL Lymph # (Auto) 0.18 L (1.2-3.4) K/uL BUN/Creatinine Ratio 24.2 H (10-20) AST 72 H (13-39) U/L ALT 80 H (7-52) U/L Alkaline Phosphatase 149 H (34-104) U/L Troponin I High Sens 20.6 H (0-14) pg/ml Procalcitonin 10.95 H (0-0.5) ng/ml Urine Appearance (Clear) Urine pH (4.5-7.5) Urine Protein (Negative) Urine Blood (Negative) U Epithel Cells (Auto) (0-5) /lpf 08/20/22 Range/Units 07:13 RBC (4.20-5.40) M/uL Hgb (12.0-16.0) g/dl Hct (37.0-47.0) % MCV (80.0-100.0) fL RDW Std Deviation (36.4-46.3) fL RDW Coeff of Atul (11.5-14.5) % MPV (9.4-12.4) fL Neut # (Auto) (1.40-6.50) K/uL Lymph # (Auto) (1.2-3.4) K/uL BUN/Creatinine Ratio (10-20) AST (13-39) U/L ALT (7-52) U/L Alkaline Phosphatase (34-104) U/L Troponin I High Sens (0-14) pg/ml Procalcitonin (0-0.5) ng/ml Urine Appearance Cloudy A (Clear) Urine pH 8.0 H (4.5-7.5) Urine Protein 1+ H (Negative) Urine Blood Trace H (Negative) U Epithel Cells (Auto) 5-10 H (0-5) /lpf Diagnostic Findings Chest X-Ray 08/20/22 05:39 XR chest 1V portable HISTORY: 76 years-old Female Sepsis acute sepsis COMPARISON: Chest radiograph 04/21/2022, PET CT 05/17/2022 TECHNIQUE: AP view of the chest FINDINGS: Cardiac silhouette is enlarged. Left subclavian Nidfps-o-Wcah catheter. Chronic mild left hemidiaphragmatic elevation. Trace right and small left pleural effusions with mild bibasilar opacities. No pneumothorax or overt pulmonary edema. Degenerative changes of the shoulders and spine. IMPRESSION: 1. Cardiomegaly without acute process. 2. Unchanged left hemidiaphragmatic elevation. 3. Trace right and small left pleural effusions with mild bibasilar consolidation favoring atelectasis. Pneumonia considered less likely. ACT 112: Negative or not required by law. The above report was generated using voice recognition software. It may contain grammatical, syntax or spelling errors. Electronically signed by: Christian Salas M.D. 08/20/2022 8:02 AM Abdomen/Pelvis CT 08/20/22 05:[address] WITHOUT CONTRAST CT DOSE: 892.74 mGy.cm HISTORY: Acute right upper quadrant abdominal pain RUQ pain TECHNIQUE: Multiaxial CT images of the abdomen and pelvis were performed without contrast. A dose lowering technique was utilized adhering to the principles of ALARA. COMPARISON STUDY: PET CT 05/17/2022, CT abdomen and pelvis 04/21/2022 FINDINGS: Limited exam secondary to respiratory motion artifact and lack of contrast. Cardiomegaly with trace pericardial effusion and extensive coronary artery calcifications. Partially imaged [id number] catheter within the inferior SVC. Moderate left hemidiaphragmatic elevation. Trace right and small left pleural effusions with mild bibasilar consolidation. No pneumatosis or pneumoperitoneum. Calcification of the anterior spleen again noted. Moderately atrophic pancreas. Unremarkable adrenal glands. Gallbladder appears to be surgically absent. Ill- defined hypodense 2.6 cm focus within the left hepatic lobe on image 36 series 4 appears new from prior. Unchanged right greater than left perinephric inflammatory stranding. No urolith or definite hydronephrosis. Urinary bladder wall thickening with partial distention. Unremarkable uterus. Atherosclerosis of the aorta. No lymphadenopathy identified. No bowel obstruction or bowel wall thickening. Colonic diverticulosis. The appendix is not definitively seen. No CT evidence of acute appendicitis. Mild colonic fecal retention. Unremarkable soft tissues. There is no acute fracture. No new destructive bone lesions identified. Chronic T12-L2 compression deformities. IMPRESSION: 1. No acute intra-abdominal or intrapelvic abnormality identified. 2. Artifact versus new hypodense 2.6 cm lesion within the lateral left hepatic lobe. Correlation with a nonemergent follow-up CT of the abdomen with IV contrast recommended. 3. Trace right and small left pleural effusions with mild bibasilar consolidation suggestive of probable atelectasis. Pneumonia or aspiration considered less likely. 4. Asymmetric right perinephric stranding is again noted. Correlate with urinalysis. 5. Colonic diverticulosis. 6. Additional findings as above. ACT 112: Negative or not required by law. The above report was generated using voice recognition software. It may contain grammatical, syntax or spelling errors. Electronically signed by: Christian Salas M.D. 08/20/2022 8:51 AM ECG Additional Comments: Poor data quality, interpretation may be adversely affected Sinus tachycardia with Premature supraventricular complexes Incomplete right bundle branch block Left anterior fascicular block Abnormal ECG When compared with ECG of 23-APR-2022 12:29, Significant changes have occurred Code Status & VTE Plan Code Status Full code VTE Prophylaxis Plan VTE Prophylaxis will be ordered: Yes Supervising Physician Co-Signing Physician Notes I personally saw and examined the patient. I verified all suresh points and agree with Raffy Espino PA-C with the following exceptions and/or additions: 76 year old female presents to the ER with main complaint of abdominal pain in epigastric area radiating to RUQ progressively getting worse over last three days but currently resolved. Fever today. Also more short of breath with productive cough but this is not her primary symptom. Patient seen in 454-1 after admission by GO. O/E A&Ox3, HS RRR, no murmurs, Chest CTAB without wheezing or crackles, Abdo SNT A/P Liver lesion - previous misdiagnosis of liver met which turned out to be liver abscess, confirmed with radiology this is more consistent with a liver mass rather than abscess but given abdominal pain as her main complaint and prior misdiagnosis with current infection picture with procalcitonin 10.[address] with IV contrast to get a better look at this however will need pre-treatment due to prior history of hives. Consult oncology regarding liver mass. PNA - no COPD exacerbation suspected, Zosyn + azithromycin Sepsis - SIRS criteria met with HR and fever. Source either PNA although possibility of liver abscess remains given prior history of this despite CT findings more consistent with mass. MRSA nose swab negative. IV Zosyn + azithromycin. Follow up blood cultures. Lactate WNL. PG Care Time/CCT Total # of Minutes Spent Total Time Spent with Patient: Total time spent is greater than 50% in coordination of care (as documented) at patient's floor/unit and/or counseling patient: Coding [place] [address] INT INP/OBS CARE 3/75MIN Patient Type Established Medical Decision Making High Complexity Diagnoses Sepsis A41.9 Sepsis acute organ dysfunction status: unspecified Sepsis type: sepsis due to unspecified organism Pneumonia J18.9 Acute epigastric pain R10.13 Transaminitis R74.01 Liver lesion K76.9 Elevated troponin R77.8 Chronic obstructive pulmonary disease J44.9 Anxiety F41.9 S/P ablation of atrial flutter Z98.890; Z86.79 Pulmonary embolism I26.99 Polymyalgia rheumatica M35.3 Diabetes mellitus, type 2 E11.9 (1) Sepsis Sepsis acute organ dysfunction status: unspecified Sepsis type: sepsis due to unspecified organism Qualified Code(s): A41.9 - Sepsis, unspecified organism
[2022-08-20] MEDS ORDERED: GLUCOSE 10 TAB/TUBE PO PRN (10:27)
[2022-08-20] MEDS ORDERED: DEXTROSE 50% 50 ML SYRINGE IV PRN (10:27)
[2022-08-20] MEDS ORDERED: CARBOHYDRATES FOR HYPOGLYCEMIA PO PRN (10:27)
[2022-08-20] MEDS ORDERED: GLUCOSE 40% GEL 15 GM TUBE PO PRN (10:27)
[2022-08-20] MEDS ORDERED: GLUCAGON FOR INJ 1 MG VIAL SQ PRN (10:27)
[2022-08-20] MEDS ORDERED: predniSONE 10 MG TABLET PO STA (11:00)
[2022-08-20] MEDS ORDERED: METOPROLOL TARTRATE 25 MG TAB PO STA (11:00)
[2022-08-20] MEDS ORDERED: ALBUT/IPRATROP 3MG/0.5MG NEB 3 ML VIAL NEB STA (11:02)
[2022-08-20] MEDS ORDERED: LACTATED RINGER'S 1,000 ML IV SCH (11:15)
[2022-08-20] MEDS ORDERED: guaiFENesin/DEXTROM SYRUP 200MG/20MG 10ML UDC PO PRN (11:25)
[2022-08-20] MEDS ORDERED: PIPERACILLIN/TAZOBACTAM 4.5 GM/120 ML BAG IV STA (11:29)
[2022-08-20] MEDS ORDERED: AZITHROMYCIN 500 MG in DEXTROSE 5% 250 ML IV STA (11:29)
[2022-08-20] MEDS ORDERED: APIXABAN 5 MG TABLET PO STA (11:30)
[2022-08-20] MEDS ORDERED: SENNA 8.6 MG TAB PO PRN (12:52)
[2022-08-20] MEDS: INSULIN ASPART PER UNIT CHARGE SC SCH ×3 (13:37→20:23)
--- NOTE | 2022-08-20 14:25 | Electrocardiogram Report ---
Test Reason : Blood Pressure : / mmHG Vent. Rate : 109 BPM Atrial Rate : 109 BPM P-R Int : 166 ms QRS Dur : 108 ms QT Int : 342 ms P-R-T Axes : 046 -55 054 degrees QTc Int : 460 ms Poor data quality, interpretation may be adversely affected Sinus tachycardia with Premature supraventricular complexes Incomplete right bundle branch block Left anterior fascicular block Abnormal ECG When compared with ECG of 23-APR-2022 12:29, Significant changes have occurred Confirmed by Chandan Arrieta ([id number]) on 08/20/2022 2:24:41 PM Referred By: Confirmed By:Chandan Arrieta
[2022-08-20] MEDS: FLUTICASONE/VILANTEROL 100/25MCG 14 PUFFS/INHALER INH SCH (15:20)
[2022-08-20] MEDS: PIPERACILLIN/TAZOBACTAM 4.5 GM in DEXTROSE 5% 100 ML IV SCH (17:07)
--- NOTE | 2022-08-20 17:17 | Consultation ---
Date of Consultation August 20, 2022 Assessment & Plan (1) Liver lesion: Metastatic relapse of small cell lung cancer has to be a consideration, with a history of liver abscess further infectious this process there as well is of concern. Particularly given the potential for metastatic recurrence of the smal l cell lung cancer, complementing the noncontrast study with a contrast abdominal CT would be worthwhile. May need to assess with serial review with consideration of sampling both with an eye towards cultures and histologically diagnostic material (2) Pulmonary embolism: Patient does have a history of pulmonary embolism, has been on apixaban without clinical suggestion of recurrence. May want to consider contrast chest imaging to assure that there are not additional occult pulm emboli as that can be a cause for fever. If present, that would suggest that a switch to heparin or Lovenox be considered as an alternative to the current apixaban (3) Polymyalgia rheumatica: Has had apparent reasonably good clinical control up to this point on low-dose prednisone, this would be lower on the list as a possible cause of fever as she is apparently not missed any doses of that medication. (A missed dose could also set the stage for adrenal insufficiency). Should ensure that she has been taking that regularly. (4) Small cell lung cancer: Diagnosed in October 2021 and treated with chemo/radiation though the fourth cycle of chemotherapy had to be omitted because of acute toxicity particularly atrial fibrillation and pulmonary embolism. April PET scan and brain MRI did not suggest any relapse. Would not expect a high likelihood that current fever could be "tumor" we are now there has at least been some question of relapse based on the finding of a liver lesion on CT. Could be worthwhile to follow-up with formal chest imaging with contrast both to reassess for new pulmonary emboli and to identify any more discrete parenchymal or david abnormalities that might suggest relapse of her small cell lung cancer. Contrast enhanced abdominal CT at the same time could give a more robust assessment of the lesion in the liver and any other possible lesions they are not evident from the noncontrast study. Signs and symptoms do not suggest it but given that she did not receive PCI, 3- month interval MRI scans with and without contrast of the brain should be considered at least semielective and she would be due for 1 now. 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 Most immediately threatening cause of fever would be infection and she is being appropriately treated with empiric antibiotics. Sources could include a pulmonary infection given her history of COPD. Port-A-Cath is in place but by description the site is stable, nevertheless positive blood cultures might suggest that as an alternative site of origin. Await those blood culture results. From the perspective of her small cell lung cancer and history of pulmonary embolism, contrast CT scan would be worthwhile and that may also highlight more dramatic parenchymal changes in her her lung parenchyma 2. Recently treated small cell lung cancer certainly with some concerns over potential for relapse particularly with respect to the liver lesion. However, that relapse would not necessarily be the source for the high fever with which she presented. Nevertheless, CT angiography with contrast both to assess specifically for relapsed small cell lung cancer issues and as well to indicate any recurrent pulmonary embolism or more dramatic infection would be worthwhile. Simultaneously, contrast abdominal CT could better define the current hepatic lesion and possibly indicate others not evident from the noncontrast study 3. Recurrent pulmonary embolism is unlikely but is in the differential of presentation with fever - CT angiography would be worthwhile to further review. If new pulmonary emboli are present woild switch to heparin or therapeutic enoxaparin 4. Liver lesion certainly bears more comprehensive assessment with a contrast CT and/or MRI with and without contrast. Depending on ongoing clinical symptoms and further findings, sampling both for culture and histology may be worthwhile 5. There are no suggestive symptomatology but with aggressive presentation of small cell lung cancer, serial monitoring for occult [employer] lesions should be considered semielectively with another MRI with and without contrast performed in the near future 6. Should assure that she has been taking her prednisone regularly and that there are no other specific indications of a flare of her PMR or of adrenal insufficiency if not Dr. Ceja will be available for further in person review tomorrow History of Present Illness Reason for Consultation: Patient with history of breast, bladder, and small cell lung cancer admitted with high fever and right upper quadrant pain Attending Physician: Jus Morgan MD History of Present Illness Please note that this is a consultation constructed purely from review of the electronic database. I am working remotely and unable to speak directly with the patient or examine her. I reviewed both the records from [facility] and the current admission records which seem to be an accurate source of relevant information but I am completely reliant on that for my conclusions and perspectives. If there are urgent concerns regarding the need for more direct [id number] review, you should consider transferring the patient to another institution. Dr. Ceja will follow tomorrow in person. The evaluation is consultative in nature and all patient care and treatment decisions can either be accepted or rejected by the patient's primary hospital- based treating physician using their own independent medical judgment for the patient. Patient has a history of 3 separate malignancies: 1. 2009 right breast pT2 pN0 cM0 / IIA strongly ER/NE positive HER2 negative carcinoma. Following lumpectomy she received initial TC chemotherapy but because of allergic reaction was converted to ACT completing the AC portion but only 6 of 12 planned cycles of the Taxol because of allergic reactions. Following radiation she was subsequently treated with anastrozole. There has been no signs of interim recurrence of the breast cancer 2. 2012 diagnosis of noninvasive bladder cancer treated with intravesicular BCG and followed by urology 3. 10/2021 diagnosis of small cell lung cancer pT3 pN2 cM0 / IIIB treated with carboplatin/etoposide/radiation though the fourth cycle of chemotherapy was omitted after admission of atrial fibrillation/flutter. Good response with 05/10/2022 MRI of the brain showing no metastases and stable 6 mm left frontal cortex lesion felt consistent with meningioma and stable over time, 05/17/2022 PET scan showed no evidence of active malignant disease. Patient did have extended recovery from hospitalization and follow-up 2021 PET scan 20 patient clinical stability in her April assessment oncology. She was referred to radiation oncology for consideration of PCI and apparently the recommendation has been for continued observation. She has had no oncology specific treatment response. Additional relevant medical history includes polymyalgia rheumatica on long-term low-dose steroids prednisone 10 mg daily, history of 2019 liver abscess requiring transcutaneous drainage, as noted above atrial fibrillation no current EKG shows her to be in sinus tach with PVCs. She did require ablation in January, Patient had an incidentally noted pulmonary embolism during her January, admission and has been on apixaban since that time Note that she has oxygen requiring COPD with a cumulative 56-year pack year history of smoking. She is admitted today with fever to 39 and right upper quadrant discomfort. Noncontrast abdominal/pelvic CT is suggest possible liver lesion, chest x-ray was somewhat nonspecific the lung bases as imaged on the abdominal/pelvic CT did show some possible infiltrative changes question atelectasis versus pneumonitis Allergies Allergy/AdvReac Type Severity Reaction Status Date / Time castor oil Allergy Severe "TAXANES" Verified 08/20/22 08:32 CAUSE DYSPNEA, RASH, ELEVATED BP docetaxel [From Taxotere] Allergy Severe "TAXANES" Verified 08/20/22 08:32 CAUSE DYSPNEA, RASH, ELEVATED BP paclitaxel Allergy Severe "TAXANES" Verified 08/20/22 08:32 CAUSE DYSPNEA, RASH, ELEVATED BP trimethoprim [From Bactrim] Allergy Severe Anaphylaxis Verified 08/20/22 08:32 Iodinated Contrast Media Allergy Intermediate HIVES/ITCHI Verified 08/20/22 08:32 NG nitrofurantoin Allergy Intermediate CHEST Verified 08/20/22 08:32 PAIN, DYSPNEA Sulfa (Sulfonamide Allergy Intermediate HIVES, Verified 08/20/22 08:32 Antibiotics) ITCHINESS, SHORTNESS OF BREATH phenazopyridine AdvReac Intermediate N/V Verified 08/20/22 08:32 codeine AdvReac COLD Verified 08/20/22 08:32 SWEAT, THINGS START SPINNING, NAUSEA Home Medications Medication Instructions Recorded Confirmed Type cholecalciferol (vitamin D3) 25 25 mcg PO DAILY 12/01/21 08/20/22 History mcg (1,000 unit) capsule mecobalamin (vitamin B12) 1,000 1,000 mcg sublingual DAILY 12/01/21 08/20/22 History mcg disintegrating tablet,sublingual nebulizers #1 ea 12/05/21 08/20/22 Rx docusate sodium 100 mg capsule 100 mg PO BID #60 caps 01/22/22 08/20/22 Rx (Colace) polyethylene glycol 3350 17 17 g PO DAILY #238 grams 01/22/22 08/20/22 Rx gram/dose oral powder (Miralax) ipratropium 0.5 mg-albuterol 3 mg 3 ml inhalation Q6H PRN wheezing 03/14/22 08/20/22 Rx (2.5 mg base)/3 mL nebulization #360 mL soln omeprazole 40 mg capsule,delayed 40 mg PO QAM 03/18/22 08/20/22 History release prednisone 10 mg tablet 10 mg PO DAILY 03/18/22 08/20/22 History calcium 600 mg-D3 800 unit-mag11 1 tab PO BID #60 tabs 04/27/22 08/20/22 Rx 50 ec-sbvl-zzvugm-beulah-s.borat tablet (Caltrate 600-D Plus Minerals) furosemide 20 mg tablet (Lasix) 20 mg PO QAM PRN leg swelling #30 04/27/22 08/20/22 Rx tabs sennosides 8.6 mg tablet (Senokot) 8.6 mg PO DAILY PRN Constipation 06/01/22 08/20/22 History fluticasone furoate 100 1 inh inhalation DAILY #60 ea 06/26/22 08/20/22 Rx mcg-vilanterol 25 mcg/dose inhalation powder (Breo Ellipta) umeclidinium 62.5 mcg/actuation 1 inh inhalation DAILY #30 ea 06/26/22 08/20/22 Rx blister powder for inhalation (Incruse Ellipta) trazodone 50 mg tablet 100 mg PO HS #60 tabs 07/07/22 08/20/22 Rx acetaminophen 650 mg 1,950 mg PO Q12H 07/12/22 08/20/22 History tablet,extended release (Tylenol Arthritis Pain) melatonin 3 mg capsule 10 mg PO HS PRN Sleep 07/12/22 08/20/22 History vibegron 75 mg tablet (Gemtesa) 75 mg PO DAILY #90 tabs 07/20/22 08/20/22 Rx buspirone 5 mg tablet 5 mg PO BID #180 tabs 08/09/22 08/20/22 Rx apixaban 5 mg tablet (Eliquis) 5 mg PO BID #60 tabs 08/10/22 08/20/22 Rx olanzapine 5 mg tablet 5 mg PO .QHS #30 tabs 08/15/22 08/20/22 Rx folic acid 1 mg tablet 1 mg PO QPM #30 tabs 08/16/22 08/20/22 Rx metoprolol tartrate 25 mg tablet See Rx Instructions .Route .COMPLEX 08/20/22 08/20/22 History Patient History Medical History Asthma (04/25/12) Atrial flutter with rapid ventricular response Chronic dyspnea Chronic hypoxemic respiratory failure Chronic obstructive pulmonary disease Chronic obstructive pulmonary disease COPD (chronic obstructive pulmonary disease) COPD exacerbation Diabetes mellitus, type 2 Endometrial thickening on ultrasound Ex-smoker GERD (gastroesophageal reflux disease) Hearing deficit Hemoptysis History of breast cancer History of diverticulitis History of liver disease Hx of bladder cancer Hypomagnesemia Insomnia Left rib fracture (2017) Liver abscess Lower extremity edema Malignant neoplasm of lung Migraine Osteoporosis Osteoporosis Pancytopenia due to antineoplastic chemotherapy PMR (polymyalgia rheumatica) PMR (polymyalgia rheumatica) Port-A-Cath in place Small cell lung cancer Tobacco abuse Tremor Ureteral tumor Vertebral fracture Surgical History H/O cystoscopy History of appendectomy History of arthroscopy History of breast biopsy History of bronchoscopy History of cholecystectomy History of colonoscopy History of elbow surgery History of lumpectomy of right breast History of surgery History of surgery Nausea and vomiting after administration of anesthetic agent S/P ablation of atrial flutter Family History Other Adopted Family history unknown Social History Smoking Status: Former smoker Tobacco Type: Cigarettes Cigarettes Per Day: Less than 1/2 PPD now;Smoked 50+yrs;; Second Hand Exposure: No; Do You Dip or Chew Tobacco: No; Hx Alcohol Use: No Hx Substance Use: No Preferred Language: Chinese Communication Ability: Effective Visual Impairment: No Limitations Hearing Ability: Hard of Hearing Ballistician Required: No Beliefs That Will Affect Care: None marital status: Single Current Living Situation: Other Current Living Situation Comment: lives with roommate current occupational status: retired Feels Safe at Home: Yes Safety Concerns: Feels Safe At This Time Childhood Exposure to Second-Hand Smoke: Yes caffeine: No during the past year weight has: remained stable Dental Care, Regularly: Yes Physical Activity Frequency: 1-2 Times per Week Seatbelt Use: always Sunscreen Use: Yes Assistive Devices: Denture - Upper, Denture - Lower, Glasses, Walker and Wheelchair Assistive Devices Comment: only upper dentures here Physical Exam Physical Exam: Temperature spike at 06 30-39.3 but afebrile since then and otherwise VSS Physical examination on admission by hospitalist staff suggest that there are decreased breath sounds at the lung bases, some expiratory wheezing, but do not describe alicja rubs or rales. Cardiac exam is described as having a regular rhythm with no murmurs. Abdomen is "negative for ascites and bruising, normoactive bowel sounds, soft, nontender to palpation throughout." Neurological examination. Shows her to be alert and oriented with no focal defects. Results & Data Vital Signs (Past 12 Hours) Vital Signs Temp Pulse Pulse Pulse Resp BP BP 08/20/22 16:15 36.8 C 85 18 101/63 08/20/22 15:21 86 08/20/22 14:01 82 08/20/22 13:00 08/20/22 12:53 36.3 C L 81 18 108/70 08/20/22 11:24 85 18 108/49 L 08/20/22 11:19 08/20/22 09:40 99 H 08/20/22 08:34 37.4 C 99 H 20 123/64 08/20/22 08:34 37.4 C 08/20/22 07:13 112 H 20 151/86 H 08/20/22 06:50 112 H 24 08/20/22 06:45 113 H 24 147/88 H 08/20/22 06:40 111 H 21 08/20/22 06:30 113 H 20 174/87 H 08/20/22 06:20 116 H 17 08/20/22 06:15 115 H 22 196/98 H 08/20/22 06:10 136 H 24 08/20/22 06:09 115 H 24 207/101 H 08/20/22 06:01 122 H 14 209/105 H 08/20/22 06:00 110 H 16 08/20/22 05:50 08/20/22 05:40 114 H 22 08/20/22 05:30 117 H 37 H 164/102 H 08/20/22 05:39 117 H 16 08/20/22 05:31 114 H 08/20/22 06:31 39.3 C H 08/20/22 05:09 08/20/22 05:09 164/102 H 08/20/22 05:09 38.2 C H 110 H 20 Pulse Ox O2 Del Method O2 Flow Rate 08/20/22 16:15 98 Room Air 08/20/22 15:21 08/20/22 14:01 08/20/22 13:00 Nasal Cannula 2 08/20/22 12:53 98 Nasal Cannula 2 08/20/22 11:24 98 Nasal Cannula 3 08/20/22 11:19 98 Nasal Cannula 3 08/20/22 09:40 08/20/22 08:34 96 Nasal Cannula 3 08/20/22 08:34 08/20/22 07:13 94 Nasal Cannula 3 08/20/22 06:50 08/20/22 06:45 95 08/20/22 06:40 95 08/20/22 06:30 95 08/20/22 06:20 95 08/20/22 06:15 95 08/20/22 06:10 93 08/20/22 06:09 93 08/20/22 06:01 08/20/22 06:00 08/20/22 05:50 95 08/20/22 05:40 94 08/20/22 05:30 93 08/20/22 05:39 93 Room Air 3 08/20/22 05:31 08/20/22 06:31 08/20/22 05:09 Nasal Cannula 2 08/20/22 05:09 08/20/22 05:09 93 Room Air 2 Laboratory Results Laboratory Results - last 24 hr 08/20/22 08/20/22 08/20/22 05:55 05:55 05:55 WBC 9.54 RBC 3.38 L Hgb 11.1 L Hct 33.9 L MCV 100.3 H MCH 32.8 MCHC 32.7 RDW Std Deviation 59.6 H RDW Coeff of Atul 16.1 H Plt Count 168 MPV 9.2 L Immature Gran % (Auto) 0.7 Neut % (Auto) 92.6 Lymph % (Auto) 1.9 [place] % (Auto) 4.6 Eos % (Auto) 0.1 Baso % (Auto) 0.1 Neut # (Auto) 8.83 H Lymph # (Auto) 0.18 L [place] # (Auto) 0.44 Eos # (Auto) 0.01 Baso # (Auto) 0.01 Immature Gran # (Auto) 0.07 Sodium 139 Potassium 4.1 Chloride 104 Carbon Dioxide 28 Anion Gap 7 BUN 22 Creatinine 0.91 Est Cr Clr Drug Dosing 44.5 Est GFR ( Amer) 70.0 Est GFR (Non-Af Amer) 60.4 BUN/Creatinine Ratio 24.2 H Glucose 98 POC Glucose Lactate 0.7 Calcium 9.3 Magnesium 1.8 Total Bilirubin 0.6 Direct Bilirubin 0.1 AST 72 H ALT 80 H Alkaline Phosphatase 149 H Troponin I High Sens 20.6 H Total Protein 6.2 Albumin 3.7 Procalcitonin Urine Color Urine Appearance Urine pH Ur Specific [place] Urine Protein Urine Glucose (UA) Urine Ketones Urine Blood Urine Nitrite Urine Bilirubin Urine Urobilinogen Ur Leukocyte Esterase Urine WBC (Auto) Urine RBC (Auto) U Hyaline Cast (Auto) U Epithel Cells (Auto) Urine Bacteria (Auto) Nasal Screen MRSA (PCR) SARS-CoV-2 (PCR) Influenza Type A (PCR) Influenza Type B (PCR) RSV (RT-PCR) 08/20/22 08/20/22 08/20/22 05:55 05:55 07:13 WBC RBC Hgb Hct MCV MCH MCHC RDW Std Deviation RDW Coeff of Atul Plt Count MPV Immature Gran % (Auto) Neut % (Auto) Lymph % (Auto) [place] % (Auto) Eos % (Auto) Baso % (Auto) Neut # (Auto) Lymph # (Auto) [place] # (Auto) Eos # (Auto) Baso # (Auto) Immature Gran # (Auto) Sodium Potassium Chloride Carbon Dioxide Anion Gap BUN Creatinine Est Cr Clr Drug Dosing Est GFR ( Amer) Est GFR (Non-Af Amer) BUN/Creatinine Ratio Glucose POC Glucose Lactate Calcium Magnesium Total Bilirubin Direct Bilirubin AST ALT Alkaline Phosphatase Troponin I High Sens Total Protein Albumin Procalcitonin 10.95 H Urine Color Yellow Urine Appearance Cloudy A Urine pH 8.0 H Ur Specific [place] 1.011 Urine Protein 1+ H Urine Glucose (UA) Negative Urine Ketones Negative Urine Blood Trace H Urine Nitrite Negative Urine Bilirubin Negative Urine Urobilinogen Negative Ur Leukocyte Esterase Negative Urine WBC (Auto) 1-5 Urine RBC (Auto) 0-4 U Hyaline Cast (Auto) 0 U Epithel Cells (Auto) 5-10 H Urine Bacteria (Auto) Negative Nasal Screen MRSA (PCR) SARS-CoV-2 (PCR) NEGATIVE Influenza Type A (PCR) Negative Influenza Type B (PCR) Negative RSV (RT-PCR) Negative 08/20/22 08/20/22 08/20/22 10:21 11:58 12:54 WBC RBC Hgb Hct MCV MCH MCHC RDW Std Deviation RDW Coeff of Atul Plt Count MPV Immature Gran % (Auto) Neut % (Auto) Lymph % (Auto) [place] % (Auto) Eos % (Auto) Baso % (Auto) Neut # (Auto) Lymph # (Auto) [place] # (Auto) Eos # (Auto) Baso # (Auto) Immature Gran # (Auto) Sodium Potassium Chloride Carbon Dioxide Anion Gap BUN Creatinine Est Cr Clr Drug Dosing Est GFR ( Amer) Est GFR (Non-Af Amer) BUN/Creatinine Ratio Glucose POC Glucose 92 Lactate Calcium Magnesium Total Bilirubin Direct Bilirubin AST ALT Alkaline Phosphatase Troponin I High Sens 43.9 H D Total Protein Albumin Procalcitonin Urine Color Urine Appearance Urine pH Ur Specific [place] Urine Protein Urine Glucose (UA) Urine Ketones Urine Blood Urine Nitrite Urine Bilirubin Urine Urobilinogen Ur Leukocyte Esterase Urine WBC (Auto) Urine RBC (Auto) U Hyaline Cast (Auto) U Epithel Cells (Auto) Urine Bacteria (Auto) Nasal Screen MRSA (PCR) Negative SARS-CoV-2 (PCR) Influenza Type A (PCR) Influenza Type B (PCR) RSV (RT-PCR) 08/20/22 16:58 WBC RBC Hgb Hct MCV MCH MCHC RDW Std Deviation RDW Coeff of Atul Plt Count MPV Immature Gran % (Auto) Neut % (Auto) Lymph % (Auto) [place] % (Auto) Eos % (Auto) Baso % (Auto) Neut # (Auto) Lymph # (Auto) [place] # (Auto) Eos # (Auto) Baso # (Auto) Immature Gran # (Auto) Sodium Potassium Chloride Carbon Dioxide Anion Gap BUN Creatinine Est Cr Clr Drug Dosing Est GFR ( Amer) Est GFR (Non-Af Amer) BUN/Creatinine Ratio Glucose POC Glucose 151 H Lactate Calcium Magnesium Total Bilirubin Direct Bilirubin AST ALT Alkaline Phosphatase Troponin I High Sens Total Protein Albumin Procalcitonin Urine Color Urine Appearance Urine pH Ur Specific [place] Urine Protein Urine Glucose (UA) Urine Ketones Urine Blood Urine Nitrite Urine Bilirubin Urine Urobilinogen Ur Leukocyte Esterase Urine WBC (Auto) Urine RBC (Auto) U Hyaline Cast (Auto) U Epithel Cells (Auto) Urine Bacteria (Auto) Nasal Screen MRSA (PCR) SARS-CoV-2 (PCR) Influenza Type A (PCR) Influenza Type B (PCR) RSV (RT-PCR) Diagnostic Findings Chest X-Ray 08/20/22 05:39 XR chest 1V portable HISTORY: 76 years-old Female Sepsis acute sepsis COMPARISON: Chest radiograph 04/21/2022, PET CT 05/17/2022 TECHNIQUE: AP view of the chest FINDINGS: Cardiac silhouette is enlarged. Left subclavian Gktthn-i-[id number] catheter. Chronic mild left hemidiaphragmatic elevation. Trace right and small left pleural effusions with mild bibasilar opacities. No pneumothorax or overt pulmonary edema. Degenerative changes of the shoulders and spine. IMPRESSION: 1. Cardiomegaly without acute process. 2. Unchanged left hemidiaphragmatic elevation. 3. Trace right and small left pleural effusions with mild bibasilar consolidation favoring atelectasis. Pneumonia considered less likely. ACT 112: Negative or not required by law. The above report was generated using voice recognition software. It may contain grammatical, syntax or spelling errors. Electronically signed by: Christian Salas M.D. 08/20/2022 8:02 AM Abdomen/Pelvis CT 08/20/22 05:[address] WITHOUT CONTRAST CT DOSE: 892.74 mGy.cm HISTORY: Acute right upper quadrant abdominal pain RUQ pain TECHNIQUE: Multiaxial CT images of the abdomen and pelvis were performed without contrast. A dose lowering technique was utilized adhering to the principles of ALARA. COMPARISON STUDY: PET CT 05/17/2022, CT abdomen and pelvis 04/21/2022 FINDINGS: Limited exam secondary to respiratory motion artifact and lack of contrast. Cardiomegaly with trace pericardial effusion and extensive coronary artery calcifications. Partially imaged [id number]-a-[id number] catheter within the inferior SVC. Moderate left hemidiaphragmatic elevation. Trace right and small left pleural effusions with mild bibasilar consolidation. No pneumatosis or pneumoperitoneum. Calcification of the anterior spleen again noted. Moderately atrophic pancreas. Unremarkable adrenal glands. Gallbladder appears to be surgically absent. Ill- defined hypodense 2.6 cm focus within the left hepatic lobe on image 36 series 4 appears new from prior. Unchanged right greater than left perinephric inflammatory stranding. No urolith or definite hydronephrosis. Urinary bladder wall thickening with partial distention. Unremarkable uterus. Atherosclerosis of the aorta. No lymphadenopathy identified. No bowel obstruction or bowel wall thickening. Colonic diverticulosis. The appendix is not definitively seen. No CT evidence of acute appendicitis. Mild colonic fecal retention. Unremarkable soft tissues. There is no acute fracture. No new destructive bone lesions identified. Chronic T12-L2 compression deformities. IMPRESSION: 1. No acute intra-abdominal or intrapelvic abnormality identified. 2. Artifact versus new hypodense 2.6 cm lesion within the lateral left hepatic lobe. Correlation with a nonemergent follow-up CT of the abdomen with IV contrast recommended. 3. Trace right and small left pleural effusions with mild bibasilar consolidation suggestive of probable atelectasis. Pneumonia or aspiration considered less likely. 4. Asymmetric right perinephric stranding is again noted. Correlate with urinalysis. 5. Colonic diverticulosis. 6. Additional findings as above. ACT 112: Negative or not required by law. The above report was generated using voice recognition software. It may contain grammatical, syntax or spelling errors. Electronically signed by: Christian Salas M.D. 08/20/2022 8:51 AM PG Care Time/CCT Total # of Minutes Spent Total Time Spent with Patient: Total time spent is greater than 50% in coordination of care (as documented) at patient's floor/unit and/or counseling patient: Coding Level of Care Code 76829 IN/OBS CONSULT LVL 2,35M Diagnoses Liver lesion K76.9 Pulmonary embolism I26.99 Polymyalgia rheumatica M35.3 Small cell lung cancer C34.90 Carcinoma in situ of bladder D09.0 History of breast cancer Z85.3
[2022-08-20] MEDS ORDERED: diphenhydrAMINE 50 MG/ML VIAL IV STA (18:16)
[2022-08-20] MEDS ORDERED: predniSONE 50 MG TAB PO STA (18:38)
[2022-08-20] MEDS ORDERED: methylPREDNISolone 40 MG in SYRINGE 0 ML IV STA (18:53)
[2022-08-20] MEDS: METOPROLOL TARTRATE 25 MG TAB PO SCH (20:14)
[2022-08-20] MEDS: busPIRone 5 MG TAB PO SCH (20:17)
[2022-08-20] MEDS: APIXABAN 5 MG TABLET PO SCH (20:17)
[2022-08-20] MEDS: DOCUSATE SODIUM 100 MG CAP PO SCH (20:18)
[2022-08-20] MEDS: traZODone HCL 100 MG TAB PO SCH (20:19)
[2022-08-20] MEDS: FOLIC ACID 1 MG TAB PO SCH (20:20)
[2022-08-20] MEDS: LANTUS PER UNIT CHARGE SQ SCH (20:23)
[2022-08-20] MEDS: OLANZapine 5 MG TABLET PO SCH (20:23)
[2022-08-20] MEDS ORDERED: ACETAMINOPHEN 325 MG TAB PO STA (20:29)
[2022-08-20] MEDS: MELATONIN 3 MG TAB PO PRN (21:29)
[2022-08-20] MEDS: UMECLIDINIUM BROMIDE 62.5MCG/BLISTER 7 PUFFS/INHALER INH SCH (21:29)
[2022-08-20] MEDS ORDERED: methylPREDNISolone 40 MG in SYRINGE 0 ML IV ONE (23:00)
[2022-08-20] MEDS ORDERED: diphenhydrAMINE 50 MG/ML VIAL IV ONE (23:00)
[2022-08-21] MEDS ORDERED: OPTIRAY 320 500ml IV ONE (00:56)
[2022-08-21] MEDS ORDERED: OLANZAPINE 2.5 MG TAB PO ONE (01:17)
--- NOTE | 2022-08-21 01:21 | CT Scan Report ---
Exam(s): CTA CHEST IV Amt: 98 ML OPTIRAY 320 EXAM: CT Angiography Chest With Intravenous Contrast CLINICAL HISTORY: Reason for exam: PE. TECHNIQUE: Axial computed tomographic angiography images of the chest with intravenous contrast. Automated exposure control was utilized for the study. A dose lowering technique was utilized adhering to the principles of ALARA. MIP reconstructed images were created and reviewed. COMPARISON: No relevant prior studies available. FINDINGS: Pulmonary arteries: No acute pulmonary embolism. Aorta: Atherosclerotic changes of the aorta. No thoracic aortic aneurysm. Lungs: Airspace consolidation at the lung bases, correlate for aspiration pneumonia. Small left pleural effusion. Linear subsegmental atelectasis in the left lower lobe. Pleural space: See above. Heart: Cardiomegaly. No significant pericardial effusion. No evidence of RV dysfunction. Bones/joints: Degenerative changes of the spine. Old compression deformity of T12 and L1. No dislocation. Soft tissues: Unremarkable. Lymph nodes: Unremarkable. No enlarged lymph nodes. IMPRESSION: 1. No acute pulmonary embolism. 2. Airspace consolidation at the lung bases, correlate for aspiration pneumonia. Small left pleural effusion. Electronically signed by: Shay Cruz MD 08/21/22 01:21 AM
--- NOTE | 2022-08-21 01:27 | CT Scan Report ---
Exam(s): CT ABDOMEN + PELVIS With Contrast IV Amt: 98 ML OPTIRAY 320 EXAM: CT Abdomen and Pelvis With Intravenous Contrast CLINICAL HISTORY: Reason for exam: concern for mets or abscess in liver. TECHNIQUE: Axial computed tomography images of the abdomen and pelvis with intravenous contrast. Automated exposure control was utilized for the study. A dose lowering technique was utilized adhering to the principles of ALARA. CONTRAST: Patient received 98 ML OPTIRAY 320 of IV contrast COMPARISON: No relevant prior studies available. FINDINGS: Lung bases: Airspace consolidations at the lung bases, correlate for infiltrate/pneumonia. Small left pleural effusion. ABDOMEN: Liver: No liver abscess. No definite hepatic metastases. Gallbladder and bile ducts: Cholecystectomy. No ductal dilation. Pancreas: Atrophy of the pancreas. No ductal dilation. Spleen: Unremarkable. No splenomegaly. Adrenals: Unremarkable. No mass. Kidneys and ureters: Unremarkable. No solid mass. No hydronephrosis. Stomach and bowel: Diverticulosis, without acute diverticulitis. No small bowel obstruction. No free intraperitoneal air. PELVIS: Appendix: No findings to suggest acute appendicitis. Bladder: Unremarkable. No mass. Reproductive: Atrophy of the uterus. ABDOMEN and PELVIS: Intraperitoneal space: Unremarkable. No free air. No significant fluid collection. Bones/joints: Degenerative changes of the spine. Old compression deformities of T12 and L1. No dislocation. Soft tissues: Unremarkable. Vasculature: Atherosclerotic changes of the aorta. No abdominal aortic aneurysm. Lymph nodes: Unremarkable. No enlarged lymph nodes. IMPRESSION: 1. Airspace consolidations at the lung bases, correlate for infiltrate/pneumonia. Small left pleural effusion. 2. Diverticulosis, without acute diverticulitis. No small bowel obstruction. No free intraperitoneal air. 3. Cholecystectomy. No liver abscess. No definite hepatic metastases. Electronically signed by: Shay Cruz MD 08/21/22 01:26 AM
[2022-08-21] MEDS: PIPERACILLIN/TAZOBACTAM 4.5 GM in DEXTROSE 5% 100 ML IV SCH ×2 (01:42→09:19)
[2022-08-21 06:54] LABS: Hematocrit (blood only) 32.9 % (37.0-47.0); Hemoglobin 10.7 g/dl (12.0-16.0); Mean Corpuscular Hemoglobin 32.7 pg (25.0-34.0); Mean Corpuscular Hgb Conc 32.5 g/dL (32.0-36.0); Mean Corpuscular Volume 100.6 fL (80.0-100.0); Mean Platelet Volume 9.2 fL (9.4-12.4); Platelet Count 170 K/uL (130-400); RDW Standard Deviation 60.1 fL (36.4-46.3); Red Blood Count 3.27 M/uL (4.20-5.40); White Blood Count 7.19 K/ul (4.8-10.8)
[2022-08-21 07:09] LABS: Basophils # (auto) 0.01 K/uL (0-0.2); Basophils % (auto) 0.1 %; Immature Granulocytes # (auto) 0.06 K/uL (0.01-0.20); Immature Granulocytes % (auto) 0.8 %; Lymphocytes # (auto) 0.27 K/uL (1.2-3.4); Lymphocytes % (auto) 3.8 %; Monocytes # (auto) 0.15 K/uL (0.11-0.59); Monocytes % (auto) 2.1 %; Neutrophils % (auto) 93.2 %
[2022-08-21 07:13] LABS: Albumin Globulin Ratio 1.3 (0.9-2); Albumin Level 3.2 gm/dl (3.4-5.0); BUN Creatinine Ratio 18.9 (10-20); Bilirubin,Total 0.4 mg/dl (0.2-1.0); Creatinine Clr Calc Pharmacy 41.2 ml/min; Est GFR (African American) 66.5 ml/min; Est GFR (Non-African American) 57.4 ml/min; Globulin 2.4 gm/dl (2.5-4.0); Magnesium 1.8 mg/dl (1.7-2.4); Potassium 4.4 mmol/L (3.5-5.1); Total Protein 5.6 gm/dl (6.0-8.3)
[2022-08-21 07:18] LABS: INR 1.1 (0.9-1.1)
[2022-08-21] MEDS: APIXABAN 5 MG TABLET PO SCH ×2 (08:05→20:08)
[2022-08-21] MEDS: DOCUSATE SODIUM 100 MG CAP PO SCH ×2 (08:05→20:08)
[2022-08-21] MEDS: FLUTICASONE/VILANTEROL 100/25MCG 14 PUFFS/INHALER INH SCH (08:06)
[2022-08-21] MEDS: POLYETHYLENE (MIRALAX) 17 GM PACK PO SCH (08:06)
[2022-08-21] MEDS: UMECLIDINIUM BROMIDE 62.5MCG/BLISTER 7 PUFFS/INHALER INH SCH (08:06)
[2022-08-21] MEDS: busPIRone 5 MG TAB PO SCH ×2 (08:06→20:08)
[2022-08-21] MEDS: METOPROLOL TARTRATE 25 MG TAB PO SCH ×2 (08:06→20:07)
[2022-08-21] MEDS: INSULIN ASPART PER UNIT CHARGE SC SCH ×4 (08:45→20:12)
[2022-08-21] MEDS: LANTUS PER UNIT CHARGE SQ SCH ×2 (08:46→20:12)
[2022-08-21] MEDS ORDERED: predniSONE 10 MG TABLET PO SCH (09:00)
--- NOTE | 2022-08-21 09:23 | Hospitalist Progress Note ---
Date of Service August 21, 2022 Assessment & Plan (1) Sepsis: Plan: -Initially tachycardic, febrile, with procal of 10 -High risk due to immunocompromised state with cancer and chronic pred therapy -Lactate WNL, S/P 3L NSS in the ED and a dose of cefepime, currently stable -BCx, UCx pending -Source at this time appears to be pneumonia but need to continue monitoring the liver lesion with her hx of liver abscess -Zosyn, azithromycin -De-escalate Zosyn to ceftriaxone today -BP stable but low threshold to increase 10 m daily home dose prednisone to stress dose if hypotensive -Rest of plan per pneumonia plan (2) Pneumonia: Plan: -Pneumonia vs atelectasis noted on CXR, procal elevated at 10, no other obvious sources of infection at this time source as UTI, GI, skin/wound -Contrast chest CTA and CTAP noted -Imaging with airspace consolidations at bases suggesting possible pneumonia -Was initially requiring 3L NC per the ED, currently stable on home 2L -Antibiotics as above- ceftriaxone, azithromycin -MRSA nares negative -Incentive spirometry, flutter therapy, Scheduled duonebs, continue home breathing treatments, prn Robitussin DM for cough -Continue O2 via NC for SpO2 of 88-92% (3) Acute epigastric pain: Plan: -Resolved at this time after 2 mg IV morphine and famotidine in the ED -No acute intra-abdominal abnormalities noted -Does have the 2.6 cm hepatic lesion, unsure if this could be causing any of her symptoms -At this time will continue to treat as possible gastritis/refulx with daily pantoprazole -Continue to monitor for recurrence of symptoms (4) Transaminitis: Plan: -AST, ALT, ALP all mildly elevated on admission but now downtrending -Unsure of the cause at this time, she does have the 2.6 cm new hypodense lesion of the left lateral hepatic lobe on CTAP -Previous history of liver abscess approximately 5 years ago which required drainage at [place] -Oncology consulted, appreciate recommendations- consider biopsy -Trend LFTs (5) Liver lesion: Plan: -See above (6) Elevated troponin: Plan: -Initial high sensitivity trop elevated at 20 -No chest pain or acute ST segment or T-wave changes -Likely due to demand from her acute illness, downtrending (7) Chronic obstructive pulmonary disease: Plan: -Low suspicion for exacerbation- possible mild component -See pneumonia -Stable respiratory status- 2L at baseline (8) Anxiety: Plan: -Continue Buspar, HS Zyprexa and HS trazadone (9) S/P ablation of atrial flutter: Plan: -Currently stable, was in sinus tach in the ED -Continue metoprolol, Eliquis (10) Pulmonary embolism: Plan: -Continue Eliquis -Stable respiratory status- 2L at baseline (11) Polymyalgia rheumatica: Plan: -Continue 10 mg PO prednisone daily (12) Diabetes mellitus, type 2: Plan: -Has been well controlled off medication -Monitor BSG ACHS, goal is 110-140 -Lantus 5 units BID, CF 50, CR 15 -Adjust regimen as needed Plan FENGI: Carb consistent Code status: Full DVT ppx: Apixaban Isolation: None Dispo: Telemetry Admission and Anticipated Discharge Date Admission Date: August 20, 2022 Supervising Physician Co-Signing Physician Notes I personally examined the patient and verified all suresh points of history and exam, discussed case, and agree with decision making with Dr Otero breathing feeling a bit better vitals noted nad heent nc at mmm breathing unlabored no accessory muscles good effort CAP - improving. abx. otherwise as above. otherwise as above Subjective Acute events overnight- none. Pt examined at bedside. Reports feeling better but still reports intermittent epigastric pain, less severity than on admission. Denies other acute complaints. Review of Systems Review of Systems: Per HPI/Subjective Physical Exam Physical Exam: Physical Exam: General: In no acute distress, stated age, cachectic, non-toxic appearing HEENT: Normocephalic, atraumatic, NC currently in place, no scleral icterus, pupils around round, symmetrical, and reactive to light, dry mucus membranes, trachea midline, no thyromegaly Chest/Pulm: Mediport located in the left upper chest without signs of erythema or swelling, No respiratory distress, symmetrical chest expansion, decreased breath sounds in the BL lower lung hernandez with mild expiratory wheezing in the upper lung hernandez Cardiac: RRR, no murmurs noted Abdomen: Negative for ascites and bruising, normoactive bowel sounds, soft, non-tender to palpation throughout though expresses discomfort Extremities: Radial, dorsalis pedis, and posterior tibial pulses are intact and symmetrical, no edema noted in the BL LE's Skin: Warm, dry, no rashes , lesions, or scars noted Neuro: Alert and oriented to person, place, month, year, and president, no focal defects, CN II-XII tested and intact, no tremors noted Psych: No acute distress, calm and cooperative during the exam Results & Data Results & Data Vital Signs (Past 12 Hours) Vital Signs Temp Pulse Pulse Resp BP Pulse Ox O2 Del Method 08/21/22 07:46 36.5 C 79 20 143/74 H 97 Nasal Cannula 08/21/22 00:00 75 08/21/22 03:24 36.6 C 90 19 145/96 H 96 Nasal Cannula 08/20/22 22:37 37.1 C 71 18 125/67 96 Nasal Cannula O2 Flow Rate 08/21/22 07:46 2 08/21/22 00:00 08/21/22 03:24 2 08/20/22 22:37 2 Resident Activity Tracking Resident Involvement: Resident Care Provided Care Provided: Adult Hospital Medicine (1) Sepsis Sepsis acute organ dysfunction status: unspecified Sepsis type: sepsis due to unspecified organism Qualified Code(s): A41.9 - Sepsis, unspecified organism
[2022-08-21] MEDS ORDERED: AZITHROMYCIN 500 MG in DEXTROSE 5% 250 ML IV SCH (11:06)
[2022-08-21] MEDS: PANTOprazole 40 MG in SYRINGE 0 ML IV SCH (11:07)
[2022-08-21] MEDS: HEPARIN 100 UNIT/ML 5ML FLUSH FLUSH PRN (13:06)
[2022-08-21] MEDS ORDERED: cefTRIAXone SODIUM 1,000 MG in DEXTROSE 5% AD-VAN 50 ML IV SCH (15:00)
--- NOTE | 2022-08-21 18:50 | Billing Data ---
Date of Service August 21, 2022 Coding Level of Care Code 46689 SUB INP/OBS CARE
[2022-08-21] MEDS: OLANZapine 5 MG TABLET PO SCH (20:08)
[2022-08-21] MEDS: FOLIC ACID 1 MG TAB PO SCH (20:08)
[2022-08-21] MEDS: traZODone HCL 100 MG TAB PO SCH (20:08)
[2022-08-21] MEDS: MELATONIN 3 MG TAB PO PRN (20:09)
[2022-08-22 07:12] LABS: Albumin Globulin Ratio 1.4 (0.9-2); BUN Creatinine Ratio 26.7 (10-20); Bilirubin,Total 0.2 mg/dl (0.2-1.0); Calcium 8.8 mg/dl (8.6-10.3); Creatinine Clr Calc Pharmacy 38.9 ml/min; Est GFR (African American) 61.7 ml/min; Est GFR (Non-African American) 53.3 ml/min; Globulin 2.1 gm/dl (2.5-4.0); Magnesium 1.8 mg/dl (1.7-2.4); Potassium 3.7 mmol/L (3.5-5.1); Total Protein 5.1 gm/dl (6.0-8.3)
[2022-08-22 07:40] LABS: INR 1.1 (0.9-1.1); Prothrombin Time 11.9 Seconds (9.0-12.0)
[2022-08-22 08:08] VITALS: TEMP 97.9
[2022-08-22] MEDS: busPIRone 5 MG TAB PO SCH (08:15)
[2022-08-22] MEDS: APIXABAN 5 MG TABLET PO SCH (08:15)
[2022-08-22] MEDS: DOCUSATE SODIUM 100 MG CAP PO SCH (08:16)
[2022-08-22] MEDS: METOPROLOL TARTRATE 25 MG TAB PO SCH (08:16)
[2022-08-22] MEDS: POLYETHYLENE (MIRALAX) 17 GM PACK PO SCH (08:17)
[2022-08-22] MEDS: FLUTICASONE/VILANTEROL 100/25MCG 14 PUFFS/INHALER INH SCH (08:19)
[2022-08-22] MEDS: UMECLIDINIUM BROMIDE 62.5MCG/BLISTER 7 PUFFS/INHALER INH SCH (08:19)
[2022-08-22] MEDS ORDERED: AZITHROMYCIN 250 MG in DEXTROSE 5% 250 ML IV SCH (09:00)
[2022-08-22] MEDS: LANTUS PER UNIT CHARGE SQ SCH (09:09)
[2022-08-22] MEDS: INSULIN ASPART PER UNIT CHARGE SC SCH (09:09)
--- NOTE | 2022-08-22 09:51 | Discharge Summary ---
Date of Service August 22, 2022 Admission HPI Per Admitting Provider Carla is a 76 year old female with a PMH significant for COPD on 2L NC at baseline, invasive breast cancer, bladder cancer, and limited stage small cell lung cancer S/P radiation and chemotherapy, currently on , unprovoked PE on Eliquis, liver abscess S/P drainage at [facility], PMR on chronic prednisone therapy, atrial flutter S/P ablation, Paroxysmal afib, DM II, who presented to the [facility] ED on 08/20/22 with a chief complaint of epigastric pain. She was initially noted to be hypertensive at 209/105, tachycardic in the 110's, febrile at 39C, and requiring increased O2 compared to baseline. Labs were significant for a stable CBC, AST of 72, ALT of 80, alk phos of 149, initial high sen trop of 20.6, procal of 10.95. Chest xray showed mild bibasilar consolidation favoring atelectasis with pneumonia considered less likely. CT of the abd/pelvis WO con showed asymmetric right perinephric stranding and Artifact versus new hypodense 2.6 cm lesion within the lateral left hepatic lobe. Prior to admission the patient was given a total of 3L NSS, Cefepime, 1gm Iv tylenol, 2 mg IV morphine, and 20 mg IV famotidine. At the time of the exam the patient was lying in bed in no acute distress with her daughter and son-in-law sitting bedside. The patient states that she started to develop increased SOB, a productive cough with clear sputum, epigastric abd pain with radiation to the right lateral abdomen approximately 3 days ago. Her symptoms continued to progress to the point that she was having respiratory distress at home and requiring 3L NC compared to her baseline 2L. She describes the abdominal pain as sharp/stabbing, intermittent, and not associated with any particular activity. Her epigastric pain has resolved after receiving the morphine earlier in the ED. Her daughter states that the patient has been having difficulty with adequately taking her inhalers and does not think they she is getting the medication in her lungs. The patient denies recent nausea, vomiting, dysuria, hematuria, diarrhea, melena, bloody BM's, LE swelling and recent sores or skin tears. Her daughter confirms that she checks the patient's skin regularly and she is without new sores. We discussed the CT fin dings of the possible liver lesion. Her daughter expressed concern of the liver lesion as her previous liver abscess approximately 4-5 years ago was also initially read as not abscess. We discussed code status, at this time the patient and her family want her to be a full code and for her daughter to make medical decisions for her if she cannot make them herself. Admission Exam Per Admitting Provider Physical Exam: General:In no acute distress, stated age, cachectic, non-toxic appearing HEENT:Normocephalic, atraumatic, NC currently in place, no scleral icterus, pupils around round, symmetrical, and reactive to light, dry mucus membranes, trachea midline, no thyromegaly Chest/Pulm:Mediport located in the left upper chest without signs of erythema or swelling, No respiratory distress, symmetrical chest expansion, decreased breath sounds in the BL lower lung hernandez with expiatory wheezing in the upper lung hernandez Cardiac:RRR, no murmurs noted Abdomen:Negative for ascites and bruising, normoactive bowel sounds, soft, non-tender to palpation throughout Musculoskeletal:Symmetrical and without signs of acute trauma, upper and lower extremities with full ROM, no atrophy, spasticity, or flaccidity Extremities:Radial, dorsalis pedis, and posterior tibial pulses are intact and symmetrical, no edema noted in the BL LE's Skin:Warm, dry, no rashes , lesions, or scars noted Neuro:Alert and oriented to person, place, month, year, and president, no focal defects, CN II-XII tested and intact, no tremors noted Psych:No acute distress, calm and cooperative during the exam Principal Diagnosis Pneumonia Discharge Exam Physical Exam: General: In no acute distress, stated age, cachectic, non-toxic appearing HEENT: Normocephalic, atraumatic, NC currently in place, no scleral icterus, pupils around round, symmetrical, and reactive to light, dry mucus membranes, trachea midline, no thyromegaly Chest/Pulm: Mediport located in the left upper chest without signs of erythema or swelling, No respiratory distress, symmetrical chest expansion, largely clear breath sounds b/l Cardiac: RRR, no murmurs noted Abdomen: Negative for ascites and bruising, normoactive bowel sounds, soft, non-tender to palpation throughout though expresses discomfort Extremities: Radial, dorsalis pedis, and posterior tibial pulses are intact and symmetrical, no edema noted in the BL LE's Skin: Warm, dry, no rashes , lesions, or scars noted Neuro: Alert and oriented to person, place, month, year, and president, no focal defects, CN II-XII tested and intact, no tremors noted Psych: No acute distress, calm and cooperative during the exam Discharge Data Allergies Allergy/AdvReac Type Severity Reaction Status Date / Time castor oil Allergy Severe "TAXANES" Verified 08/20/22 08:32 CAUSE DYSPNEA, RASH, ELEVATED BP docetaxel [From Taxotere] Allergy Severe "TAXANES" Verified 08/20/22 08:32 CAUSE DYSPNEA, RASH, ELEVATED BP paclitaxel Allergy Severe "TAXANES" Verified 08/20/22 08:32 CAUSE DYSPNEA, RASH, ELEVATED BP trimethoprim [From Bactrim] Allergy Severe Anaphylaxis Verified 08/20/22 08:32 Iodinated Contrast Media Allergy Intermediate HIVES/ITCHI Verified 08/20/22 08:32 NG nitrofurantoin Allergy Intermediate CHEST Verified 08/20/22 08:32 PAIN, DYSPNEA Sulfa (Sulfonamide Allergy Intermediate HIVES, Verified 08/20/22 08:32 Antibiotics) ITCHINESS, SHORTNESS OF BREATH phenazopyridine AdvReac Intermediate N/V Verified 08/20/22 08:32 codeine AdvReac COLD Verified 08/20/22 08:32 SWEAT, THINGS START SPINNING, NAUSEA Consultations 08/20/22 09:46 ED Decision to Admit Stat 08/20/22 11:37 Consult Oncology Routine Ordered Studies 08/20/22 05:42 CT abd pelvis wo con Stat 08/20/22 18:21 CT Abd and Pelvis [CT abd pelvis IV con only] Urgent CT angio chest PE protocol Urgent Hospital Course (1) Sepsis: -Initially tachycardic, febrile, with procalcitonin of 10 -High risk due to immunocompromised state with cancer and chronic prednisone therapy -Lactate WNL, S/P 3L NSS in the ED and a dose of cefepime, currently stable -BCx, UCx NGTD -Zosyn, azithromycin -> ceftriaxone/azithromycin -> discharged with cefdinir/azithromycin to complete total 7 day course (2) Pneumonia: -Pneumonia vs atelectasis noted on CXR, procal elevated at 10, no other obvious sources of infection at this time source as UTI, GI, skin/wound -Contrast chest CTA and CTAP noted -Imaging with airspace consolidations at bases suggesting possible pneumonia -Was initially requiring 3L NC per the ED, currently stable on home 2L at time of discharge -MRSA nares negative -Incentive spirometry, flutter therapy, Scheduled duonebs, continue home breathing treatments, prn Robitussin DM for cough for supportive care in hospital -Antibiotics as above (3) Acute epigastric pain: -Resolved at this time after 2 mg IV morphine and famotidine in the ED -No acute intra-abdominal abnormalities noted -Does have the 2.6 cm hepatic lesion, unsure if this could be causing any of her symptoms -Treated as possible gastritis/refulx with daily pantoprazole -Continue to monitor for recurrence of symptoms (4) Transaminitis: -AST, ALT, ALP all mildly elevated on admission but downtrending -Unsure of the cause at this time, she does have the 2.6 cm new hypodense lesion of the left lateral hepatic lobe on CTAP -Previous history of liver abscess approximately 5 years ago which required drainage at [place] -Outpatient oncology f/u to discuss further liver lesion evaluation- MRI vs biopsy (5) Liver lesion: -See above (6) Elevated troponin: -Initial high sensitivity trop elevated at 20 -No chest pain or acute ST segment or T-wave changes -Likely due to demand from her acute illness, downtrending (7) Chronic obstructive pulmonary disease: -Low suspicion for exacerbation- possible mild component -See pneumonia -Stable respiratory status- 2L at baseline at time of discharge (8) Anxiety: -Continued Buspar, HS Zyprexa and HS trazadone (9) S/P ablation of atrial flutter: -Currently stable, was in sinus tach in the ED -Continued metoprolol, Eliquis -Rate controlled, regular rhythm at time of discharge (10) Pulmonary embolism: -Continue Eliquis -Stable respiratory status- 2L at baseline by time of discharge (11) Polymyalgia rheumatica: -Continued 10 mg PO prednisone daily -No flare in hospital (12) Diabetes mellitus, type 2: -Has been well controlled off medication -BSGs wnl in hospital Total Time Total Time Spent Total Time Spent (In Minutes): <30 Discharge Plan Discharge Items Patient Disposition: Home - Self-Care Reason For Visit: EPIGASTRIC PAIN Discharge Diagnosis: Pneumonia Activity: Resume your previous activity Non-emergency contact: Primary Care Provider Call non-emergency contact if: your symptoms worsen Follow-up/Referrals: Genoveva Stallings PA-C [Primary Care Provider] - 08/24/22 2:30 pm Diet: Regular Addtl Attending Provider Instructions: You were admitted to the hospital for pneumonia. You were treated with antibiotics. A liver lesion was noted on the CT scan. Please discuss this with Dr. Ceja at your next appointment. A discharge summary will be sent to your primary care physician to ensure continuity of care. Please bring this discharge summary with you to your next office appointment so that your provider can review it at that time. Follow-up appointments: - Make a follow-up appointment with your PCP within the next week. It is very important that you follow up with them shortly after discharge from the hospital. - Keep all your follow-up appointments as already scheduled. If you cannot make an appointment, notify your provider. Medications: Your medication list has been reviewed and reconciled upon discharge to ensure accuracy and continuity of care. An updated list of all your medications is included with your hospital discharge paperwork. Please review this list closely, and make note of any changes. -We sent antibiotics to the pharmacy. You will take cefdinir (twice daily, about 12 hours apart) and azithromycin (daily) for the next 4 days, starting tomorrow morning. Take your medications as instructed; do not skip a dose of your medicines. Make sure all of your doctors know every medicine you are taking (including azdw-tlq-xrgaaum medicines, vitamins, and supplements). Call your primary care provider before taking any new medicines (including wacj-bcs-belaaoj medicines, vitamins, and supplements), because some of these may interact with your current medications, or may make your symptoms worse. Tell your primary care provider if you cannot afford your medications. CONTACT YOUR PRIMARY CARE PROVIDER if you experience any of the following: -Fever -Shortness of breath -Cough -Fatigue -Difficulty following your treatment plan, or difficulty taking medications CALL 911 OR GO TO THE EMERGENCY DEPARTMENT if you experience any of the following: - Sudden, severe abdominal pain or nausea/vomiting - Severe chest pain, or chest pain that radiates (moves) to your jaw or arm - Sudden, severe shortness of breath or difficulty breathing Thank you for allowing us to participate in your care Pending Studies at Discharge: No Stand-Alone Forms: [facility] Medications and DC Order Prescriptions: New cefdinir 300 mg capsule 300 mg PO BID 4 Days Qty: 8 0RF azithromycin 250 mg tablet 250 mg PO DAILY 4 Days Qty: 4 0RF Rx Instructions: start on day 2 of therapy Continued mecobalamin (vitamin B12) 1,000 mcg tablet,disintegrating 1,000 mcg sublingual DAILY Rx Instructions: place tablet under tongue and allow to dissolve for at least30 secs before swallowing cholecalciferol (vitamin D3) 25 mcg (1,000 unit) capsule 25 mcg PO DAILY sennosides [Senokot] 8.6 mg tablet 8.6 mg PO DAILY PRN (Reason: Constipation) melatonin 3 mg capsule 10 mg PO HS PRN (Reason: Sleep) (DME) nebulizers Misc See Rx Instructions .Route Qty: 1 0RF Rx Instructions: nebulizer and nebulizer kits/supplies ANNALISA-99 ipratropium-albuterol 0.5 mg-3 mg(2.5 mg base)/3 mL solution for nebulization 3 ml inhalation Q6H PRN (Reason: wheezing) Qty: 360 1RF fluticasone furoate-vilanterol [Breo Ellipta] 100-25 mcg/dose blister with device 1 inh inhalation DAILY Qty: 60 2RF Incruse Ellipta 62.5 mcg/actuation blister with device 1 inh inhalation DAILY Qty: 30 2RF trazodone 50 mg tablet 100 mg PO HS Qty: 60 2RF Gemtesa 75 mg tablet 75 mg PO DAILY Qty: 90 3RF folic acid 1 mg tablet 1 mg PO QPM Qty: 30 3RF Eliquis 5 mg tablet 5 mg PO BID Qty: 180 1RF olanzapine 5 mg tablet 5 mg PO .QHS Qty: 30 2RF acetaminophen [Tylenol Arthritis Pain] 650 mg tablet extended release 1,950 mg PO Q12H buspirone 5 mg tablet 5 mg PO BID Qty: 180 1RF Rx Instructions: as needed for anxiety polyethylene glycol 3350 [Miralax] 17 gram/dose powder 17 g PO DAILY Qty: 238 0RF docusate sodium [Colace] 100 mg capsule 100 mg PO BID Qty: 60 0RF omeprazole 40 mg capsule,delayed release(DR/EC) 40 mg PO QAM prednisone 10 mg tablet 10 mg PO DAILY Caltrate 600-D Plus Minerals 600 mg calcium- 800 unit-50 mg Tablet 1 tab PO BID Qty: 60 0RF Rx Instructions: OTC furosemide [Lasix] 20 mg tablet 20 mg PO QAM PRN (Reason: leg swelling) Qty: 30 0RF metoprolol tartrate 25 mg tablet See Rx Instructions .ROUTE .COMPLEX Rx Instructions: half a pill twice per day Discharge Orders: Discharge Order (Routine); Ordered 08/22/22 Ordered By: Ayan Juares Admission Data Admit Date/Time: 08/20/22 10:26 Attending Provider: Chidi Gannon Admit Provider: Jus Morgan Primary Care Provider: Genoveva Stallings Other Providers: Ace Steinberg ; Jae Mckeon Other Interventions: Discharge Summary Assessment (RN) Last Done: 08/22/22 12:38 Supervising Physician Co-Signing Physician Notes I personally examined the patient and verified all suresh points of history and exam, discussed case, and agree with decision making with Dr Juares breathing feeling better would like to go home vitals noted nad heent nc at mmm breathing unlabored no accessory muscles good effort CAP - improving. abx. safe for home - finish out course PO. outpt oncology follow up (dr juares reaching out to oncology via tigertext to inform of situation and ensure follow up as timely as clinically warranted) otherwise as above Resident Activity Tracking Resident Involvement: Resident Care Provided Care Provided: Adult Hospital Medicine
[2022-08-22] MEDS: HEPARIN 100 UNIT/ML 5ML FLUSH FLUSH PRN (10:44)
[2022-08-22 12:02] VITALS: BP 129/71; O2SAT 94
[2022-08-22] MEDS: PANTOprazole 40 MG in SYRINGE 0 ML IV SCH (12:07)
[2022-08-22 12:39] VITALS: PULSE 85
[2022-08-22 14:07] LABS: Basophils # (auto) 0.03 K/uL (0-0.2); Basophils % (auto) 0.3 %; Eosinophils # (auto) 0.06 K/uL (0-0.50); Eosinophils % (auto) 0.7 %; Hematocrit (blood only) 28.3 % (37.0-47.0); Immature Granulocytes % (auto) 1.2 %; Lymphocytes # (auto) 0.87 K/uL (1.2-3.4); Mean Corpuscular Hemoglobin 32.3 pg (25.0-34.0); Mean Corpuscular Hgb Conc 31.8 g/dL (32.0-36.0); Mean Corpuscular Volume 101.4 fL (80.0-100.0); Mean Platelet Volume 9.3 fL (9.4-12.4); Monocytes % (auto) 12.7 %; Neutrophils # (auto) 6.51 K/uL (1.40-6.50); Neutrophils % (auto) 75.1 %; Platelet Count 187 K/uL (130-400); RDW Coefficient of Variation 16.4 % (11.5-14.5); RDW Standard Deviation 62.4 fL (36.4-46.3); Red Blood Count 2.79 M/uL (4.20-5.40); White Blood Count 8.67 K/ul (4.8-10.8)
--- NOTE | 2022-08-22 20:10 | Billing Data ---
Date of Service August 22, 2022 Coding Level of Care Code 90720 IN/OBS DISCH 30 MIN/LESS
== END 2022-08-22 13:35 | disposition home or self-care (01) | DRG 871 ==
LOC: ED 05:15 → SUATTDRO 10:26 → 4W 10:26

== ENCOUNTER 2022-10-19 13:50 | Observation (INO) ==
[2022-10-19] MEDS ORDERED: ACETAMINOPHEN 325 MG TAB PO PRN (18:21)
[2022-10-19] MEDS ORDERED: ONDANSETRON INJ 2 MG/ML 2 ML VIAL IV PRN (18:21)
[2022-10-19] MEDS ORDERED: ALBUTEROL HFA 8 GM INHALER INH PRN (18:21)
[2022-10-19] MEDS ORDERED: ENOXAPARIN INJ 40 MG/0.4 ML SYR SQ SCH (18:30)
[2022-10-19] MEDS ORDERED: ALBUT/IPRATROP 3MG/0.5MG NEB 3 ML VIAL INH PRN (18:47)
[2022-10-19] MEDS ORDERED: SENNA 8.6 MG TAB PO PRN (18:47)
[2022-10-19] MEDS ORDERED: HEPARIN 100 UNIT/ML 5ML FLUSH FLUSH PRN (18:52)
--- NOTE | 2022-10-19 18:52 | History & Physical Report ---
Date of Service October 19, 2022 Assessment & Plan (1) UTI (urinary tract infection): Plan: 77yo female with small cell lung CA on chemotherapy and Neulasta presenting with UTI - drug resistant. Patient is afebrile, non-toxic in appearance. She denies urinary symptoms. Her urine culture obtained from 10/02/22 with Enterococcus faecalis and faecium resistant to oral medications. She was treated with Ciprofloxacin and Augmentin prior to this. -Admit to medical -Obtain catheterized urine specimen for UA and culture -Daptomycin per culture sensitivities -ID consultation appreciated for antibiotic management. ?benefits of chronic suppressive therapy? -Tylenol as needed for pain or fever -Continue Vibegron for overactive bladder -Monitor I/Os (2) Anxiety: Plan: Chronic. Stable. Patient was recently taken off Buspirone and started on Sertraline 25mg po daily -Continue Sertraline 25mg po daily -Trazodone 100mg po qPM -Zyprexa 5mg po qHS (3) Chronic obstructive pulmonary disease: Plan: Patient with chronic hypoxemic respiratory failure on 2L NC at baseline. She denies any cough, SOB or wheeze at present -Continue supplemental O2 -Continue DuoNebs PRN (4) Polymyalgia rheumatica: Plan: Longstanding history of PMR. Patient on chronic Prednisone therapy -Continue Prednisone 10mg po daily (5) Paroxysmal atrial fibrillation: Plan: Regular rhythm on exam. -Continue Metoprolol 12.5mg po BID -Continue Apixaban 5mg po BID (6) Diabetes mellitus, type 2: Plan: Diet controlled F/E/N - [place]. BMP/Mg ordered. Regular diet as tolerated Ppx - On Apixaban for history of VTE, Protonix 40mg po daily Code - Full per discussion with patient and daughter Dispo - Admit to medical Patient has chest port for blood draws and infusions Admission and Anticipated Discharge Date Admission Date: October 19, 2022 History of Present Illness Chief Complaint: drug resistant UTI Primary Care Provider: Genoveva Stallings PA-C Carla Ward is a pleasant 77yo female with history of COPD on 2L O2, invasive breast cancer, bladder cancer and limited small cell lung cancer s/p XRT and chemotherapy. Also with history of PE on Eliquis, Liver abscess s/p drainage at [facility] and polymyalgia rheumatica on chronic prednisone therapy. Patient follows with Hematology/Oncology for her malignancy and was recently started on a new chemotherapy regimen which she received on 10/12/22. She was given Neulasta following the treatment as well. Patient was sent to [facility] for direct admission as requested by her Oncologist for drug-resistant UTI. She has a history of recurrent UTIs, several requiring hospitalization. She frequently has mixed bhumi. Patient developed vague UTI symptoms several weeks ago. She had a UA and culture from 10/02/22 that showed LE, WBC and bacteria as well as >30 epithelial cells. Culture was positive for Enterococcus faecium and Enterococcus faecalis. She was initially treated with Ciprofloxacin. Her culture data preliminarily resulted and she was changed to Augmentin. When her sensitivities were finalized her E. Faecium was found to be PCN resistant and sensitive only to IV medications. Patient was asked to come to the hospital for ID consultation and IV antibiotics. She has no current complaints. Specifically denies chest pain, palpitations, abdominal pain, dysuria, urinary frequency/urgency, nausea, vomiting or diarrhea. Seen in room 381 with her daughter at bedside who assists with history. No additional complaints at this time. Allergies Allergy/AdvReac Type Severity Reaction Status Date / Time castor oil Allergy Severe "TAXANES" Verified 08/24/22 14:33 CAUSE DYSPNEA, RASH, ELEVATED BP docetaxel [From Taxotere] Allergy Severe "TAXANES" Verified 08/24/22 14:33 CAUSE DYSPNEA, RASH, ELEVATED BP paclitaxel Allergy Severe "TAXANES" Verified 08/24/22 14:33 CAUSE DYSPNEA, RASH, ELEVATED BP trimethoprim [From Bactrim] Allergy Severe Anaphylaxis Verified 08/24/22 14:33 Iodinated Contrast Media Allergy Intermediate HIVES/ITCHI Verified 08/24/22 14:33 NG nitrofurantoin Allergy Intermediate CHEST Verified 08/24/22 14:33 PAIN, DYSPNEA Sulfa (Sulfonamide Allergy Intermediate HIVES, Verified 08/24/22 14:33 Antibiotics) ITCHINESS, SHORTNESS OF BREATH phenazopyridine AdvReac Intermediate N/V Verified 08/24/22 14:33 codeine AdvReac COLD Verified 08/24/22 14:33 SWEAT, THINGS START SPINNING, NAUSEA Home Medications Medication Instructions Recorded Confirmed Type cholecalciferol (vitamin D3) 25 25 mcg PO DAILY 12/01/21 10/19/22 History mcg (1,000 unit) capsule mecobalamin (vitamin B12) 1,000 1,000 mcg sublingual DAILY 12/01/21 10/19/22 History mcg disintegrating tablet,sublingual nebulizers #1 ea 12/05/21 08/24/22 Rx docusate sodium 100 mg capsule 100 mg PO BID #60 caps 01/22/22 10/19/22 Rx (Colace) polyethylene glycol 3350 17 17 g PO DAILY #238 grams 01/22/22 10/19/22 Rx gram/dose oral powder (Miralax) ipratropium 0.5 mg-albuterol 3 mg 3 ml inhalation Q6H PRN wheezing 03/14/22 10/19/22 Rx (2.5 mg base)/3 mL nebulization #360 mL soln omeprazole 40 mg capsule,delayed 40 mg PO QAM 03/18/22 10/19/22 History release calcium 600 mg-D3 800 unit-mag11 1 tab PO BID #60 tabs 04/27/22 10/19/22 Rx 50 fr-bbob-ypztgf-beulah-s.borat tablet (Caltrate 600-D Plus Minerals) furosemide 20 mg tablet (Lasix) 20 mg PO QAM PRN leg swelling #30 04/27/22 10/19/22 Rx tabs sennosides 8.6 mg tablet (Senokot) 8.6 mg PO DAILY PRN Constipation 06/01/22 10/19/22 History acetaminophen 650 mg 1,950 mg PO Q12H 07/12/22 10/19/22 History tablet,extended release (Tylenol Arthritis Pain) melatonin 3 mg capsule 10 mg PO HS PRN Sleep 07/12/22 10/19/22 History vibegron 75 mg tablet (Gemtesa) 75 mg PO DAILY #90 tabs 07/20/22 10/19/22 Rx folic acid 1 mg tablet 1 mg PO QPM #30 tabs 08/16/22 10/19/22 Rx metoprolol tartrate 25 mg tablet See Rx Instructions .Route .COMPLEX 08/20/22 10/19/22 History apixaban 5 mg tablet (Eliquis) 5 mg PO BID #180 tabs 08/21/22 10/19/22 Rx azithromycin 250 mg tablet See Rx Instructions PO .COMPLEX #6 08/31/22 Rx (Zithromax Z-Yaakov) tabs cefdinir 300 mg capsule 300 mg PO BID 7 days #14 caps 08/31/22 Rx budesonide 160 mcg-glycopyr 9 2 inh inhalation BID #10.7 grams 09/11/22 10/19/22 Rx mcg-formot 4.8 mcg/actuation HFA inhaler (Breztri Aerosphere) buspirone 10 mg tablet 10 mg PO BID 90 days #180 tabs 09/27/22 Rx olanzapine 5 mg tablet 5 mg PO HS 90 days #90 tabs 09/27/22 10/19/22 Rx prednisone 10 mg tablet 10 mg PO DAILY 90 days #90 tabs 09/27/22 10/19/22 Rx trazodone 50 mg tablet 100 mg PO QPM 90 days #180 tabs 09/27/22 10/19/22 Rx sertraline 25 mg tablet 25 mg PO HS 10/19/22 10/19/22 History Past Med/Surg History Medical History (Updated 10/19/22 @ 19:12 by Christina Henley DO) Asthma (04/25/12) Stable and controlled Atrial flutter with rapid ventricular response Chronic dyspnea Chronic hypoxemic respiratory failure Chronic obstructive pulmonary disease STABLE- CONTROLLED- ALBUTEROL USE THIS AM Diabetes mellitus, type 2 NIDDM- WELL CONTROLLED AND STABLE Endometrial thickening on ultrasound Ex-smoker GERD (gastroesophageal reflux disease) Hearing deficit NO AIDS Hemoptysis History of breast cancer RIGHT S/P LUMPECTOMY/CHEMO/RADATION (2009)- STABLE AT THIS TIME History of diverticulitis History of liver disease 03/2019 [facility] FOR LIVER ABSCESS- GIVEN ABXS X MONTHS- FOLLOWING WITH HEME FOR MONITORING -RECENT CT SCAN 06/16/19- SHOWS ABSCESS TO BE DECREASED TO 3.5CM (SURGEON IS AWARE) Hx of bladder cancer HAD BCG INSTILLATION - DX: 2012 Hypomagnesemia Insomnia Left rib fracture (2016) Liver abscess Lower extremity edema Malignant neoplasm of lung Bronch with biopsy on 11/15/21 Migraine HX Osteoporosis Pancytopenia due to antineoplastic chemotherapy PMR (polymyalgia rheumatica) CHRONIC Pneumonia Port-A-Cath in place Small cell lung cancer Tremor RIGHT HAND Ureteral tumor Vertebral fracture LUMBAR AND THORACIC Surgical History H/O cystoscopy SEVERAL History of appendectomy History of arthroscopy B/L KNEE History of breast biopsy History of bronchoscopy 11/15/21 History of cholecystectomy History of colonoscopy History of elbow surgery RIGHT History of lumpectomy of right breast History of surgery TURBT X 2; TURBT, CYSTO, RIGHT RPG, STENT: 07/11/18: LMA#4 AT [facility] History of surgery LEFT CHEST PORT Nausea and vomiting after administration of anesthetic agent S/P ablation of atrial flutter Family History Other Adopted Family history unknown Social History Smoking Status: Former smoker Tobacco Type: Cigarettes Cigarettes Per Day: Less than 1/2 PPD now;Smoked 50+yrs;; Second Hand Exposure: Yes; Do You Dip or Chew Tobacco: No; Tobacco Cessation Education Requested by Patient: No Hx Alcohol Use: No Hx Substance Use: No Preferred Language: [place] Communication Ability: Effective Visual Impairment: No Limitations Hearing Ability: Hard of Hearing Computer Systems Support Specialist Required: No Beliefs That Will Affect Care: None marital status: Single Current Living Situation: Other Current Living Situation Comment: lives with roommate current occupational status: retired Other Information That Helps Us Care for You: No Feels Safe at Home: Yes Childhood Exposure to Second-Hand Smoke: Yes Diet: regular caffeine: No during the past year weight has: remained stable Dental Care, Regularly: Yes Physical Activity Frequency: 1-2 Times per Week Seatbelt Use: always Sunscreen Use: Yes Assistive Devices: Denture - Upper, Glasses, Oxygen - Continuous and Walker Assistive Devices Comment: glasses and dentures present Review of Systems Review of Systems: All systems reviewed & are unremarkable except as noted in HPI & below Physical Exam Physical Exam: General: patient resting comfortably, NAD, non-toxic in appearance, AA&O x 4 Skin: warm, dry, intact, no rashes or lesions HEENT: NC/AT, PERRL, EOMI, anicteric sclera, conjunctiva without injection, external ear normal to inspection and nontender, nares patent, moist mucus membranes, dentition intact, no oropharyngeal lesions, neck supple, trachea midline, no LAD, no thyromegaly, no JVD Heart: +S1/S2, regular, no m/r/g, Port left chest wall, non-tender (NOT a power port) Lungs: equal air entry bilaterally, no rales/rhonchi/wheezes Abd: +BS, soft, NT/ND, no masses/organomegaly/ascites Ext: warm, 2+ pulses in UE/LE bilaterally, no clubbing/cyanosis or edema Neuro: nonfocal, patient AA&O x 4, speech intact, no facial droop, moving all extremities on command with equal strength 5/5 Results & Data Results & Data Vital Signs (Past 12 Hours) Vital Signs Temp Pulse Resp BP Pulse Ox O2 Del Method O2 Flow Rate 10/19/22 18:29 Nasal Cannula 2 10/19/22 18:03 36.7 C 82 18 101/61 98 Nasal Cannula 2 Laboratory Results Admission labs ordered: BMP, CBC, Mg Code Status & VTE Plan VTE Prophylaxis Plan VTE Prophylaxis will be ordered: Yes PG Care Time/CCT Total # of Minutes Spent Total Time Spent with Patient: Total time spent is greater than 50% in coordination of care (as documented) at patient's floor/unit and/or counseling patient: Coding Level of Care Code 53644 INT INP/OBS CARE MIN Diagnoses UTI (urinary tract infection) N39.0 Anxiety F41.9 Chronic obstructive pulmonary disease J44.9 Polymyalgia rheumatica M35.3 Paroxysmal atrial fibrillation I48.0 Diabetes mellitus, type 2 E11.9
[2022-10-19] MEDS ORDERED: MELATONIN 3 MG TAB PO PRN (19:23)
[2022-10-19] MEDS ORDERED: DAPTOmycin 175 MG in SYRINGE 0 ML IV SCH (19:30)
[2022-10-19 19:32] LABS: Hematocrit (blood only) 28.6 % (37.0-47.0); Hemoglobin 9.2 g/dl (12.0-16.0); Mean Corpuscular Hemoglobin 34.5 pg (25.0-34.0); Mean Corpuscular Hgb Conc 32.2 g/dL (32.0-36.0); Mean Corpuscular Volume 107.1 fL (80.0-100.0); Mean Platelet Volume 9.2 fL (9.4-12.4); Platelet Count 254 K/uL (130-400); RDW Coefficient of Variation 15.7 % (11.5-14.5); RDW Standard Deviation 61.6 fL (36.4-46.3); Red Blood Count 2.67 M/uL (4.20-5.40); White Blood Count 30.06 K/ul (4.8-10.8)
[2022-10-19 19:41] LABS: BUN Creatinine Ratio 18.1 (10-20); Calcium 9.3 mg/dl (8.6-10.3); Creatinine Clr Calc Pharmacy 45.8 ml/min; Est GFR (African American) 77.7 ml/min; Est GFR (Non-African American) 67.1 ml/min; Magnesium 1.8 mg/dl (1.7-2.4); Potassium 4.7 mmol/L (3.5-5.1)
[2022-10-19 19:44] LABS: Basophils # (auto) 0.16 K/uL (0-0.2); Basophils % (auto) 0.5 %; Dohle Bodies 1+; Eosinophils # (auto) 0.02 K/uL (0-0.50); Eosinophils % (auto) 0.1 %; Immature Granulocytes # (auto) 1.08 K/uL (0.01-0.20); Immature Granulocytes % (auto) 3.6 %; Lymphocytes # (auto) 0.93 K/uL (1.2-3.4); Lymphocytes % (auto) 3.1 %; Monocytes # (auto) 1.93 K/uL (0.11-0.59); Monocytes % (auto) 6.4 %; Neutrophils # (auto) 25.94 K/uL (1.40-6.50); Neutrophils % (auto) 86.3 %; Polychromasia 1+
[2022-10-19] MEDS: DOCUSATE SODIUM 100 MG CAP PO SCH (20:48)
[2022-10-19] MEDS: METOPROLOL TARTRATE 25 MG TAB PO SCH (20:48)
[2022-10-19] MEDS: APIXABAN 5 MG TABLET PO SCH (20:48)
[2022-10-19] MEDS ORDERED: FOLIC ACID 1 MG TAB PO SCH (21:00)
[2022-10-19] MEDS ORDERED: SERTRALINE HCL 50 MG TABLET PO SCH (21:00)
[2022-10-19] MEDS ORDERED: traZODone HCL 100 MG TAB PO SCH (21:00)
[2022-10-19] MEDS ORDERED: OLANZapine 5 MG TABLET PO SCH (21:00)
[2022-10-19] MEDS ORDERED: NON-FORMULARY MEDICATION (Budesonide-Glycopyr-Formoterol [Breztri Aerosphere] 160-9-4.8 mc INH SCH (21:00)
[2022-10-19 21:50] LABS: Appearance Urine Clear (Clear); Bilirubin Urine Negative (Negative); Blood Urine Negative (Negative); Color Urine Yellow; Glucose Urine UA Negative (Negative); Ketones Urine Negative (Negative); Leukocyte Esterase Urine Negative (Negative); Nitrite Urine Negative (Negative); Protein Urine Negative (Negative); Specific Gravity Urine 1.008 (1.000-1.030); Urobilinogen Urine Negative (Negative); pH Urine 8.5 (4.5-7.5)
[2022-10-20] MEDS ORDERED: VIBEGRON 75 MG TAB PO SCH (09:00)
[2022-10-20] MEDS ORDERED: predniSONE 10 MG TABLET PO SCH (09:00)
[2022-10-20] MEDS ORDERED: POLYETHYLENE (MIRALAX) 17 GM PACK PO SCH (09:00)
[2022-10-20] MEDS ORDERED: PANTOprazole 40 MG TAB PO SCH (09:00)
[2022-10-20] MEDS: METOPROLOL TARTRATE 25 MG TAB PO SCH (09:12)
[2022-10-20] MEDS: APIXABAN 5 MG TABLET PO SCH (09:12)
[2022-10-20] MEDS: DOCUSATE SODIUM 100 MG CAP PO SCH (09:14)
--- NOTE | 2022-10-20 13:14 | Discharge Summary ---
Date of Service October 20, 2022 Admission HPI Per Admitting Provider Carla Ward is a pleasant 77yo female with history of COPD on 2L O2, invasive breast cancer, bladder cancer and limited small cell lung cancer s/p XRT and chemotherapy. Also with history of PE on Eliquis, Liver abscess s/p drainage at [facility] and polymyalgia rheumatica on chronic prednisone therapy. Patient follows with Hematology/Oncology for her malignancy and was recently started on a new chemotherapy regimen which she received on 10/12/22. She was given Neulasta following the treatment as well. Patient was sent to [facility] for direct admission as requested by her Oncologist for drug-resistant UTI. She has a history of recurrent UTIs, several requiring hospitalization. She frequently has mixed bhumi. Patient developed vague UTI symptoms several weeks ago. She had a UA and culture from 10/02/22 that showed LE, WBC and bacteria as well as >30 epithelial cells. Culture was positive for Enterococcus faecium and Enterococcus faecalis. She was initially treated with Ciprofloxacin. Her culture data preliminarily resulted and she was changed to Augmentin. When her sensitivities were finalized her E. Faecium was found to be PCN resistant and sensitive only to IV medications. Patient was asked to come to the hospital for ID consultation and IV antibiotics. She has no current complaints. Specifically denies chest pain, palpitations, abdominal pain, dysuria, urinary frequency/urgency, nausea, vomiting or diarrhea. Seen in room 381 with her daughter at bedside who assists with history. No additional complaints at this time. Principal Diagnosis UTI evaluation Discharge Exam General: A&Ox3. NAD. Cooperative. HEENT: Atraumatic, normocephalic. WOODY. Skin: L port present. No erythema/tenderness Pulm: CTAB A&P. -wheezes, -rales, -rhonchi. Symmetrical chest rise. No increased work of breathing. No respiratory distress. Cardiac: RRR, +sm. Radial pulses intact and symmetrical. Abdominal: Nontender, nondistended, soft. BS present. Extremities: Thin, moving all extremities equally Discharge Data Allergies Allergy/AdvReac Type Severity Reaction Status Date / Time castor oil Allergy Severe "TAXANES" Verified 08/24/22 14:33 CAUSE DYSPNEA, RASH, ELEVATED BP docetaxel [From Taxotere] Allergy Severe "TAXANES" Verified 08/24/22 14:33 CAUSE DYSPNEA, RASH, ELEVATED BP paclitaxel Allergy Severe "TAXANES" Verified 08/24/22 14:33 CAUSE DYSPNEA, RASH, ELEVATED BP trimethoprim [From Bactrim] Allergy Severe Anaphylaxis Verified 08/24/22 14:33 Iodinated Contrast Media Allergy Intermediate HIVES/ITCHI Verified 08/24/22 14:33 NG nitrofurantoin Allergy Intermediate CHEST Verified 08/24/22 14:33 PAIN, DYSPNEA Sulfa (Sulfonamide Allergy Intermediate HIVES, Verified 08/24/22 14:33 Antibiotics) ITCHINESS, SHORTNESS OF BREATH phenazopyridine AdvReac Intermediate N/V Verified 08/24/22 14:33 codeine AdvReac COLD Verified 08/24/22 14:33 SWEAT, THINGS START SPINNING, NAUSEA Consultations 10/20/22 08:25 Consult Infectious Diseases Routine Hospital Course (1) UTI (urinary tract infection): Carla is a 77-year-old female with a history of small cell lung cancer, breast cancer s/p lumpectomy, liver mets on chemotherapy and Neulasta who presented for a positive urine culture 10/02/2022. She has had multiple admissions for UTI and has had urosepsis in the past. History of UTIs, positive urine culture 10/02/2022 Patient had a positive clean-catch urine 10/02/2022 which returned Enterococcus faecium and faecalis these were ciprofloxacin and amoxicillin resistant. She was treated with ciprofloxacin and Augmentin as outpatient, due to concerns for potential for failure and sepsis was referred for IV antibiotics and ID evaluation Patient had a normal bhumi UCx 10/16/2022 with contaminated appearing UA On admission had a straight cath urine which was not infected appearing, and for which culture remains pending but with no current growth 10/20 Did discuss with ID. Given that patient is completely asymptomatic at time of assessment, had a normal bhumi culture on 10/16, and an uninfected UA this is most consistent with asymptomatic bacteriuria and would not recommend continued treatment at this time. She is at increased risk and has become septic following normal culture results in the past; she should be carefully monitored and if clinical symptoms of UTI develop should be treated at that time. Given sensitivities of her Enterococcus faecium/faecalis daptomycin would be a reasonable choice. Do not recommend chronic suppressive therapy. Discussed the above with patient and her daughter at bedside. Patient strongly prefers to go home soon as possible, and notes if her culture comes back positive or she develops symptoms is agreeable to returning for coordination of IV antibiotics. We will facilitate ID follow-up as outpatient given her medical complexity No further antibiotics at discharge, final culture results pending prelim results no growth updated at time of dc (2) Anxiety: Chronic. Stable. Patient was recently taken off Buspirone and started on Sertraline 25mg po daily -Continue Sertraline 25mg po daily -Trazodone 100mg po qPM -Zyprexa 5mg po qHS (3) Chronic obstructive pulmonary disease: Patient with chronic hypoxemic respiratory failure on 2L NC at baseline. She denies any cough, SOB or wheeze at present -Continue supplemental O2 -Continue DuoNebs PRN (4) Polymyalgia rheumatica: Longstanding history of PMR. Patient on chronic Prednisone therapy -Continue Prednisone 10mg po daily (5) Paroxysmal atrial fibrillation: Regular rhythm on exam. -Continue Metoprolol 12.5mg po BID -Continue Apixaban 5mg po BID (6) Diabetes mellitus, type 2: Total Time Total Time Spent Total Time Spent (In Minutes): Time spend day of discharge 70 minutes including direct patient care, documentation, review of labs and images, and coordination of care. Discharge Plan Discharge Items Patient Disposition: Home - Self-Care Reason For Visit: DRUG RESISTANT UTI Discharge Diagnosis: Asymptomatic bacteriuria Activity: Resume your previous activity Non-emergency contact: Primary Care Provider and Specialist Call non-emergency contact if: you have any medication questions Follow-up/Referrals: Genoveva Stallings PA-C [Primary Care Provider] - 10/26/22 10:45 am (With Carmen [place]) Diet: Regular Addtl Attending Provider Instructions: You are seen in the hospital for concerns of a drug-resistant UTI. Your urine culture from 10/02/2022 showed 2 resistant organisms called Enterococcus; however you are not having any symptoms of UTI at time of hospitalization and your culture from 10/16/22 showed normal bhumi. A cath specimen obtained on admission to hospitalization did not appear infected. Given that you are not having symptoms, and your repeat urine looks clear it was suspected you either had asymptomatic bacteriuria, or a contaminated sample with no active urinary tract infection. Your final urine culture was pending at time of discharge. The risks/benefits of immediate discharge versus waiting for final results were discussed with you at the bedside. You greatly preferred being discharged home soon as possible which is reasonable. It is possible that your urine culture would come back positive after a day or 2, in which case a short treatment course a short treatment course of 5 days would be recommended and you may need to return to the hospital to have IV antibiotics coordinated. Given your past history of multiple UTIs, resistance patterns, and medical complexity a outpatient infectious disease consult has been placed for you for follow-up. This was also discussed with your oncologist who is in agreement of this outpatient referral. You should receive a call to confirm this appointment. If you develop any new or worsening symptoms including fever, chills, sweats, chest pain, chest pressure, difficulty breathing, uncontrolled nausea/vomiting, rash, wheezing, passing out or nearly passing out, bleeding, black/bloody bowel movements, or other new or concerning symptoms please call your primary care physician at [], or call 911 for re-evaluation in the emergency department if you are very concerned. Pending Studies at Discharge: Yes (Pending final results) Stand-Alone Forms: My [facility] [place], Smoking Cessation Medications and DC Order Prescriptions: Continued mecobalamin (vitamin B12) 1,000 mcg tablet,disintegrating 1,000 mcg sublingual DAILY Rx Instructions: place tablet under tongue and allow to dissolve for at least30 secs before swallowing cholecalciferol (vitamin D3) 25 mcg (1,000 unit) capsule 25 mcg PO DAILY sennosides [Senokot] 8.6 mg tablet 8.6 mg PO DAILY PRN (Reason: Constipation) melatonin 3 mg capsule 10 mg PO HS PRN (Reason: Sleep) (DME) nebulizers Misc See Rx Instructions .Route Qty: 1 0RF Rx Instructions: nebulizer and nebulizer kits/supplies ANNALISA-99 ipratropium-albuterol 0.5 mg-3 mg(2.5 mg base)/3 mL solution for nebulization 3 ml inhalation Q6H PRN (Reason: wheezing) Qty: 360 1RF Gemtesa 75 mg tablet 75 mg PO DAILY Qty: 90 3RF folic acid 1 mg tablet 1 mg PO QPM Qty: 30 3RF Eliquis 5 mg tablet 5 mg PO BID Qty: 180 1RF Breztri Aerosphere 160-9-4.8 mcg/actuation HFA aerosol inhaler 2 inh inhalation BID Qty: 10.7 2RF buspirone 10 mg tablet 10 mg PO BID 90 Days Qty: 180 3RF olanzapine 5 mg tablet 5 mg PO HS 90 Days Qty: 90 3RF prednisone 10 mg tablet 10 mg PO DAILY 90 Days Qty: 90 3RF trazodone 50 mg tablet 100 mg PO QPM 90 Days Qty: 180 3RF acetaminophen [Tylenol Arthritis Pain] 650 mg tablet extended release 1,950 mg PO Q12H polyethylene glycol 3350 [Miralax] 17 gram/dose powder 17 g PO DAILY Qty: 238 0RF docusate sodium [Colace] 100 mg capsule 100 mg PO BID Qty: 60 0RF omeprazole 40 mg capsule,delayed release(DR/EC) 40 mg PO QAM Caltrate 600-D Plus Minerals 600 mg calcium- 800 unit-50 mg Tablet 1 tab PO BID Qty: 60 0RF Rx Instructions: OTC furosemide [Lasix] 20 mg tablet 20 mg PO QAM PRN (Reason: leg swelling) Qty: 30 0RF sertraline 25 mg tablet 25 mg PO HS metoprolol tartrate 25 mg tablet See Rx Instructions .ROUTE .COMPLEX Rx Instructions: half a pill twice per day Discontinued cefdinir 300 mg capsule 300 mg PO BID 7 Days Qty: 14 0RF azithromycin [Zithromax Z-Yaakov] 250 mg tablet See Rx Instructions PO .COMPLEX Qty: 6 0RF Rx Instructions: For 250 mg dose pack: take 500 mg today (day 1), then 250 mg for 4 days (days 2-5) PO Discharge Orders: Discharge Order (Routine); Ordered 10/20/22 Ordered By: Richi Lockwood Admission Data Admit Date/Time: 10/19/22 18:21 Attending Provider: Richi Lockwood Admit Provider: Christina Henley Primary Care Provider: Genoveva Stallings Other Interventions: Discharge Summary Assessment (RN) Last Done: 10/20/22 16:41 Coding Level of Care Code 55063 INP/OBS DISCH >30 MIN Diagnoses UTI (urinary tract infection) N39.0 Anxiety F41.9 Chronic obstructive pulmonary disease J44.9 Polymyalgia rheumatica M35.3 Paroxysmal atrial fibrillation I48.0 Diabetes mellitus, type 2 E11.9
[2022-10-20 15:35] VITALS: BP 95/58; PULSE 83; TEMP 99; O2SAT 96
--- NOTE | 2022-10-20 16:28 | Communication Note ---
Date of Service: October 20, 2022 By CMS guidelines, a determination that the admission or continued stay is not medically necessary has been made by a member of the UR committee and a physi radha for this hospital stay, therefore a Code 44 will be completed and the Inpatient admission will be changed to outpatient.
[2022-11-15] MEDS ORDERED: POLYETHYLENE (MIRALAX) 17 GM PACK ONE (12:36)
== END 2022-10-20 17:08 | disposition home or self-care (01) | DRG 690 ==
LOC: 3N → SUATTDRO 18:21

== ENCOUNTER 2022-11-19 17:42 | Inpatient (IN) ==
--- NOTE | 2022-11-19 17:49 | Emergency Department Note ---
Impression & Plan Respiratory failure, Atrial tachycardia ED Provider Note NAME: MEG HOBBS AGE: 77 SEX: F : 1945 ARRIVES VIA: Ambulance INFORMANT: Patient, EMS ED PROVIDER(S): Chidi Marroquin DO CHIEF COMPLAINT: shortness of breath HPI: Patient is a 77-year-old female with a past medical history of metastatic lung cancer to the liver, A-fib and a cardiomyopathy with current EF of 50% for shortness of breath. She was brought in by EMS. She notes the shortness of breath occurred today abruptly while sitting eating dinner. She denies any belly pain, nausea, vomiting, or diarrhea. No dysuria, urgency, or frequency. No chest pain. No other exacerbating or remitting factors. No cough or congestion. No dysuria urgency or frequency. No other exacerbating or remitting factors. Currently on Cipro for UTI. She is also taking her NOAC and has not missed any doses. PAST MEDICAL HISTORY:See Below PAST SURGICAL HISTORY:See Below FAMILY HISTORY:See Below SOCIAL HISTORY:See Below HOME MEDICATIONS:See Below ALLERGIES:See Below VITALS:See Below PHYSICAL EXAMINATION: GENERAL: Sitting up in bed, alert, significant distress on nonrebreather EYE EXAM: normal conjunctiva. PERRL and EOM's grossly intact. OROPHARYNX: mucous membranes are dry NECK: supple, no nuchal rigidity, no adenopathy, non-tender LUNGS: Rhonchi bilateral. Normal chest wall mechanics HEART: Tachycardic, S1 normal and S2 normal ABDOMEN: abdomen soft, non-tender, normo-active bowel sounds, no masses, no rebound or guarding. BACK: Back is symmetrical on inspection and there is no deformity, no midline tenderness, no CVA tenderness. SKIN: no rashes and no bruising UPPER EXTREMITIES: upper extremities are grossly normal. LOWER EXTREMITIES: No pitting edema. NEURO EXAM: Normal sensorium, cranial nerves II-XII grossly intact. MEDICAL DECISION MAKING: Patient is a 77-year-old female who presents ER for above-stated complaint. IV was established blood work is obtained. External records were reviewed. Labs show a leukocytosis of 18,000 which is likely secondary to her Neupogen that she received recently. Mild anemia 10.9. INR unremarkable. VBG with pH 7.2 and a CO2 of 69. BMP with slightly elevated glucose. Troponin was mildly elevated at 34. Lipase was normal. COVID was negative. Initially upon presentation she was already given Cardizem in the field with a heart rate in the 150s concern for A-fib. She did have some ST wave changes which were favored to be rate related. Upon arrival heart rate was in the 130s. Discussed with cardiology and recommended Lopressor. Patient was given 5 mg IV. Heart rate trended down to the low 100. She was given a dose of Ativan 0.25 per her request to help her relax. She was immediately placed on BiPAP initially upon arrival. She was feeling significantly better. Discussed the case with cardiology and they recommended close monitoring and admission for further work-up after reviewing the EKGs. I did also discuss the prehospital EKG. Daughter was updated at bedside. Duplex of the left lower extremity did not show DVT and with this was placed on heparin and given heparin drip and bolus. CT angio of the chest showed no PEs but effusions were present without any focal infiltrate. Patient was covered with Rocephin and is well patient and daughter were updated at bedside and patient was admitted to the hospital service for further work-up. Triage Nursing notes reviewed. Limited review of prior medical records performed Vital Signs: reviewed and remarkable for hypotension, tachycardic Differential diagnosis: Differential diagnoses includes but is not limited to pneumonia, bronchitis, COPD/Asthma exacerbation, pneumothorax, pulmonary embolism, congestive heart failure, acute coronary syndrome ER treatment provided: See below Diagnostics interpreted by me include EKG and cardiac monitoring as listed below: -Cardiac Monitoring: An order was placed for continuous cardiac monitoring. The monitor shows a rate of 110 with sinus rhythm. -ECG: Atrial tachycardia rate of 137 Left axis No PVCs QTc 468 Sinus rhythm rate of 104 Left axis No PVCs Incomplete right bundle branch block QTc 4 9 and -Laboratory studies:Interpreted by me as stated above in MDM and shown below. Imaging studies: Xrays: As interpreted by me: Portable AP upright 1 view of the chest shows no obvious focal infiltrate CTs show: CT angio the chest as described above Duplex of left lower extremity shows DVT Consultation(s): As described in [facility] Procedures:none Critical Care: I have personally spent 125 minutes of critical care time in the direct management of this patient. This includes bedside care, interpretation of diagnostic studies, and testing, discussion with consultants, patient, and family members, and other required patient management activities. This 125 minutes is in excess of all separately billable procedures. Past Med/Surg History Medical History (Updated 11/19/22 @ 23:03 by Chidi Marroquin, DO) Asthma (04/25/12) Stable and controlled Atrial flutter with rapid ventricular response Chronic dyspnea Chronic hypoxemic respiratory failure Chronic obstructive pulmonary disease STABLE- CONTROLLED- ALBUTEROL USE THIS AM Diabetes mellitus, type 2 NIDDM- WELL CONTROLLED AND STABLE Endometrial thickening on ultrasound Ex-smoker GERD (gastroesophageal reflux disease) Hearing deficit NO AIDS Hemoptysis History of breast cancer RIGHT S/P LUMPECTOMY/CHEMO/RADATION (2009)- STABLE AT THIS TIME History of diverticulitis History of liver disease 03/2019 KIMBERLY FOR LIVER ABSCESS- GIVEN ABXS X MONTHS- FOLLOWING WITH HEME FOR MONITORING -RECENT CT SCAN 06/16/19- SHOWS ABSCESS TO BE DECREASED TO 3.5CM (SURGEON IS AWARE) Hx of bladder cancer HAD BCG INSTILLATION - DX: 2012 Hypomagnesemia Insomnia Left rib fracture (2016) Liver abscess Lower extremity edema Malignant neoplasm of lung Bronch with biopsy on 11/15/21 Migraine HX Osteoporosis Pancytopenia due to antineoplastic chemotherapy PMR (polymyalgia rheumatica) CHRONIC Pneumonia Port-A-Cath in place Small cell lung cancer Tremor RIGHT HAND Ureteral tumor UTI (urinary tract infection) Vertebral fracture LUMBAR AND THORACIC Surgical History H/O cystoscopy History of appendectomy History of arthroscopy History of breast biopsy History of bronchoscopy History of cholecystectomy History of colonoscopy History of elbow surgery History of lumpectomy of right breast History of surgery History of surgery Nausea and vomiting after administration of anesthetic agent S/P ablation of atrial flutter Family History Other Adopted Family history unknown Social History Smoking Status: Former smoker Tobacco Type: Cigarettes Cigarettes Per Day: Less than 1/2 PPD now;Smoked 50+yrs;; Second Hand Exposure: Yes; Do You Dip or Chew Tobacco: No; Hx Alcohol Use: No Hx Substance Use: No Preferred Language: Barbadian Communication Ability: Effective Visual Impairment: No Limitations Hearing Ability: Hard of Hearing [employer] Required: No Beliefs That Will Affect Care: None marital status: Single Current Living Situation: Other Current Living Situation Comment: lives with roommate current occupational status: retired Feels Safe at Home: Yes Childhood Exposure to Second-Hand Smoke: Yes Diet: regular caffeine: No during the past year weight has: remained stable Dental Care, Regularly: Yes Physical Activity Frequency: 1-2 Times per Week Seatbelt Use: always Sunscreen Use: Yes Assistive Devices: Bedside Commode, Hospital Bed, Oxygen - Continuous and Walker Allergies Allergies Allergy/AdvReac Type Severity Reaction Status Date / Time castor oil Allergy Severe "TAXANES" Verified 11/19/22 18:55 CAUSE DYSPNEA, RASH, ELEVATED BP docetaxel [From Taxotere] Allergy Severe "TAXANES" Verified 11/19/22 18:55 CAUSE DYSPNEA, RASH, ELEVATED BP paclitaxel Allergy Severe "TAXANES" Verified 11/19/22 18:55 CAUSE DYSPNEA, RASH, ELEVATED BP trimethoprim [From Bactrim] Allergy Severe Anaphylaxis Verified 11/19/22 18:55 Iodinated Contrast Media Allergy Intermediate HIVES/ITCHI Verified 11/19/22 18:55 NG nitrofurantoin Allergy Intermediate CHEST Verified 11/19/22 18:55 PAIN, DYSPNEA Sulfa (Sulfonamide Allergy Intermediate HIVES, Verified 11/19/22 18:55 Antibiotics) ITCHINESS, SHORTNESS OF BREATH phenazopyridine AdvReac Intermediate N/V Verified 11/19/22 18:55 codeine AdvReac COLD Verified 11/19/22 18:55 SWEAT, THINGS START SPINNING, NAUSEA Home Meds Home Medications Medication Instructions Recorded Confirmed cholecalciferol (vitamin D3) 25 25 mcg PO DAILY 12/01/21 11/19/22 mcg (1,000 unit) capsule omeprazole 40 mg capsule,delayed 40 mg PO QAM 03/18/22 11/19/22 release sennosides 8.6 mg tablet (Senokot) 8.6 mg PO DAILY PRN Constipation 06/01/22 11/19/22 acetaminophen 650 mg 1,950 mg PO Q12H 07/12/22 11/19/22 tablet,extended release (Tylenol Arthritis Pain) melatonin 3 mg capsule 10 mg PO HS PRN Sleep 07/12/22 11/19/22 sertraline 25 mg tablet 25 mg PO HS 10/19/22 11/19/22 mecobalamin (vitamin B12) 1,000 2,500 mcg sublingual DAILY 10/26/22 11/19/22 mcg disintegrating tablet,sublingual ipratropium 0.5 mg-albuterol 3 mg 3 ml inhalation BID PRN wheezing 11/19/22 11/19/22 (2.5 mg base)/3 mL nebulization soln Previous Rx's Medication Instructions Recorded nebulizers #1 ea 12/05/21 docusate sodium 100 mg capsule 100 mg PO BID #60 caps 01/22/22 (Colace) polyethylene glycol 3350 17 17 g PO DAILY #238 grams 01/22/22 gram/dose oral powder (Miralax) calcium 600 mg-D3 800 unit-mag11 1 tab PO BID #60 tabs 04/27/22 50 sz-odud-xrvtdp-beulah-s.borat tablet (Caltrate 600-D Plus Minerals) furosemide 20 mg tablet (Lasix) 20 mg PO QAM PRN leg swelling #30 04/27/22 tabs vibegron 75 mg tablet (Gemtesa) 75 mg PO DAILY #90 tabs 07/20/22 folic acid 1 mg tablet 1 mg PO QPM #30 tabs 08/16/22 apixaban 5 mg tablet (Eliquis) 5 mg PO BID #180 tabs 08/21/22 budesonide 160 mcg-glycopyr 9 2 inh inhalation BID #10.7 grams 09/11/22 mcg-formot 4.8 mcg/actuation HFA inhaler (Breztri Aerosphere) olanzapine 5 mg tablet 5 mg PO HS 90 days #90 tabs 09/27/22 prednisone 10 mg tablet 10 mg PO DAILY 90 days #90 tabs 09/27/22 trazodone 50 mg tablet 100 mg PO QPM 90 days #180 tabs 09/27/22 Results & Data (ED) Vital Signs Vital Signs - 24 hr 11/19/22 17:50 11/19/22 17:41 11/19/22 17:41 Temperature 36.0 C L Temperature Source Axillary Pulse Rate 139 H 139 H Pulse Rate [Apical] Pulse Rate from SpO2 Sensor Respiratory Rate 31 H Respiratory Effort / Characteristics Respiratory Depth Respiratory Pattern Blood Pressure 125/76 Blood Pressure [Right Arm] Blood Pressure Mean 92 Blood Pressure Mean [Right Arm] Pulse Oximetry 81 L 81 L Oxygen Delivery Method Room Air Room Air Fraction of Inspired Oxygen Sepsis Recent Fever Within 48 Hours No Sepsis New/Unexplained Change in Mental Status No Sepsis Action Taken by Nursing Physician Notified Oxygen Flow Rate - Titration 15 Pulse Oximetry Post Tiitration 95 11/19/22 17:41 11/19/22 18:09 11/19/22 18:08 Temperature Temperature Source Pulse Rate 138 H 138 H Pulse Rate [Apical] 136 H Pulse Rate from SpO2 Sensor Respiratory Rate 24 30 H 34 H Respiratory Effort / Characteristics Spontaneous Short of Breath Respiratory Depth Shallow Respiratory Pattern Tachypnea Blood Pressure Blood Pressure [Right Arm] 120/86 Blood Pressure Mean Blood Pressure Mean [Right Arm] 97 Pulse Oximetry 98 98 98 Oxygen Delivery Method BiPAP BiPAP Fraction of Inspired Oxygen 50 Sepsis Recent Fever Within 48 Hours Sepsis New/Unexplained Change in Mental Status Sepsis Action Taken by Nursing Oxygen Flow Rate - Titration Pulse Oximetry Post Tiitration 11/19/22 18:14 11/19/22 18:18 11/19/22 18:46 Temperature Temperature Source Pulse Rate 135 H 104 H Pulse Rate [Apical] 105 H Pulse Rate from SpO2 Sensor 104 H Respiratory Rate 28 H 39 H Respiratory Effort / Characteristics Respiratory Depth Respiratory Pattern Blood Pressure 120/86 126/66 Blood Pressure [Right Arm] 126/91 Blood Pressure Mean 86 Blood Pressure Mean [Right Arm] 102 Pulse Oximetry 98 100 Oxygen Delivery Method BiPAP BiPAP Fraction of Inspired Oxygen Sepsis Recent Fever Within 48 Hours Sepsis New/Unexplained Change in Mental Status Sepsis Action Taken by Nursing Oxygen Flow Rate - Titration Pulse Oximetry Post Tiitration 11/19/22 19:15 11/19/22 19:55 11/19/22 21:46 Temperature Temperature Source Pulse Rate 130 H 106 H Pulse Rate [Apical] 100 H Pulse Rate from SpO2 Sensor Respiratory Rate 30 H 30 H Respiratory Effort / Characteristics Respiratory Depth Respiratory Pattern Blood Pressure Blood Pressure [Right Arm] 99/69 L Blood Pressure Mean Blood Pressure Mean [Right Arm] 79 Pulse Oximetry 100 100 Oxygen Delivery Method BiPAP Fraction of Inspired Oxygen 40 Sepsis Recent Fever Within 48 Hours Sepsis New/Unexplained Change in Mental Status Sepsis Action Taken by Nursing Oxygen Flow Rate - Titration Pulse Oximetry Post Tiitration 11/19/22 21:00 11/19/22 22:49 Temperature Temperature Source Pulse Rate Pulse Rate [Apical] 89 97 H Pulse Rate from SpO2 Sensor Respiratory Rate 30 H 30 H Respiratory Effort / Characteristics Respiratory Depth Respiratory Pattern Blood Pressure Blood Pressure [Right Arm] 83/56 L 98/61 L Blood Pressure Mean Blood Pressure Mean [Right Arm] 65 73 Pulse Oximetry 99 99 Oxygen Delivery Method BiPAP BiPAP Fraction of Inspired Oxygen Sepsis Recent Fever Within 48 Hours Sepsis New/Unexplained Change in Mental Status Sepsis Action Taken by Nursing Oxygen Flow Rate - Titration Pulse Oximetry Post Tiitration Laboratory Data 11/19/22 17:55 11/19/22 17:55 Lab Results 11/19/22 11/19/22 11/19/22 Range/Units 17:55 17:55 17:55 WBC 18.21 H (4.8-10.8) K/ul RBC 3.11 L (4.20-5.40) M/uL Hgb 10.9 L (12.0-16.0) g/dl POC Hgb (12.0-16.0) g/dl Hct 34.7 L (37.0-47.0) % POC Hct (37-47) % MCV 111.6 H (80.0-100.0) fL MCH 35.0 H (25.0-34.0) pg MCHC 31.4 L (32.0-36.0) g/dL RDW Std Deviation 59.0 H (36.4-46.3) fL RDW Coeff of Atul 14.4 (11.5-14.5) % Plt Count 519 H (130-400) K/uL MPV 9.1 L (9.4-12.4) fL Immature Gran % (Auto) 2.3 % Neut % (Auto) 75.8 % Lymph % (Auto) 16.4 % [place] % (Auto) 4.9 % Eos % (Auto) 0.1 % Baso % (Auto) 0.5 % Neut # (Auto) 13.80 H (1.40-6.50) K/uL Lymph # (Auto) 2.99 (1.2-3.4) K/uL [place] # (Auto) 0.90 H (0.11-0.59) K/uL Eos # (Auto) 0.01 (0-0.50) K/uL Baso # (Auto) 0.09 (0-0.2) K/uL Immature Gran # (Auto) 0.42 H (0.01-0.20) K/uL PT 11.4 (9.0-12.0) Seconds INR 1.0 (0.9-1.1) APTT (21.0-31.0) Seconds PTT Ratio POC pH (7.35-7.45) POC pCO2 (35-46) mmHg POC pO2 (80-95) mmHg POC HCO3 (19-24) hemalatha/L POC Total CO2 (24-31) mmol/L POC Base Excess (-9-1.8) hemalatha/L POC ABG O2 Sat (90-95) % POC Sodium (135-144) mmol/L Sodium 136 (136-145) mmol/L POC Potassium (3.3-5.0) mmol/L Potassium 4.8 (3.5-5.1) mmol/L Chloride 102 (98-107) mmol/L Carbon Dioxide 26 (21-32) mmol/L Anion Gap 8 (3-11) BUN 16 (6-23) mg/dl Creatinine 0.94 (0.6-1.2) mg/dl Est Cr Clr Drug Dosing 47.4 ml/min Est GFR ( Amer) 66.9 ml/min Est GFR (Non-Af Amer) 57.7 ml/min BUN/Creatinine Ratio 17.0 (10-20) Glucose 223 H (70-99(Fasting)) mg/dl Calcium 9.6 (8.6-10.3) mg/dl Total Bilirubin 0.3 (0.2-1.0) mg/dl AST 15 (13-39) U/L ALT 26 (7-52) U/L Alkaline Phosphatase 191 H (34-104) U/L Troponin I High Sens 34.6 H (0-14) pg/ml Total Protein 6.3 (6.0-8.3) gm/dl Albumin 3.7 (3.4-5.0) gm/dl Globulin 2.6 (2.5-4.0) gm/dl Albumin/Globulin Ratio 1.4 (0.9-2) Lipase 16 (11-82) U/L SARS-CoV-2, RNA, NAAT (NEGATIVE) 11/19/22 11/19/22 11/19/22 Range/Units 17:55 17:58 Unknown WBC (4.8-10.8) K/ul RBC (4.20-5.40) M/uL Hgb (12.0-16.0) g/dl POC Hgb 11.2 L (12.0-16.0) g/dl Hct (37.0-47.0) % POC Hct 33 L (37-47) % MCV (80.0-100.0) fL MCH (25.0-34.0) pg MCHC (32.0-36.0) g/dL RDW Std Deviation (36.4-46.3) fL RDW Coeff of Atul (11.5-14.5) % Plt Count (130-400) K/uL MPV (9.4-12.4) fL Immature Gran % (Auto) % Neut % (Auto) % Lymph % (Auto) % Independence % (Auto) % Eos % (Auto) % Baso % (Auto) % Neut # (Auto) (1.40-6.50) K/uL Lymph # (Auto) (1.2-3.4) K/uL [place] # (Auto) (0.11-0.59) K/uL Eos # (Auto) (0-0.50) K/uL Baso # (Auto) (0-0.2) K/uL Immature Gran # (Auto) (0.01-0.20) K/uL PT (9.0-12.0) Seconds INR (0.9-1.1) APTT 24.3 (21.0-31.0) Seconds PTT Ratio 0.9 POC pH 7.23 L (7.35-7.45) POC pCO2 69 H (35-46) mmHg POC pO2 183 H (80-95) mmHg POC HCO3 29 H (19-24) hemalatha/L POC Total CO2 31 (24-31) mmol/L POC Base Excess 1.0 (-9-1.8) hemalatha/L POC ABG O2 Sat 99.0 H (90-95) % POC Sodium 133 L (135-144) mmol/L Sodium (136-145) mmol/L POC Potassium 4.6 (3.3-5.0) mmol/L Potassium (3.5-5.1) mmol/L Chloride (98-107) mmol/L Carbon Dioxide (21-32) mmol/L Anion Gap (3-11) BUN (6-23) mg/dl Creatinine (0.6-1.2) mg/dl Est Cr Clr Drug Dosing ml/min Est GFR ( Amer) ml/min Est GFR (Non-Af Amer) ml/min BUN/Creatinine Ratio (10-20) Glucose (70-99(Fasting)) mg/dl Calcium (8.6-10.3) mg/dl Total Bilirubin (0.2-1.0) mg/dl AST (13-39) U/L ALT (7-52) U/L Alkaline Phosphatase (34-104) U/L Troponin I High Sens (0-14) pg/ml Total Protein (6.0-8.3) gm/dl Albumin (3.4-5.0) gm/dl Globulin (2.5-4.0) gm/dl Albumin/Globulin Ratio (0.9-2) Lipase (11-82) U/L SARS-CoV-2, RNA, NAAT NEGATIVE (NEGATIVE) Administered Medications Heparin Sodium/Dextrose (Heparin Sodium/Dextrose) 25,000 units in 500 mls @ 22 mls/hr IV .[id number] [facility]; Protocol Stop: 12/19/22 20:29 Last Admin: 11/19/22 22:20 Dose: 1,100 units/hr, 22 mls/hr Documented By: MARC Co-signed By: DIGNA Discontinued Medications Heparin Sodium (Porcine) (Heparin Sod (Porcine) 1000 Unit/Ml) 5,000 units IV NOW ONE Stop: 11/19/22 21:16 Last Admin: 11/19/22 22:17 Dose: 5,000 units Documented By: MARC Co-signed By: DIGNA Ceftriaxone Sodium (Rocephin) 2,000 mg in 70 mls @ 140 mls/hr IV NOW STA Stop: 11/19/22 19:54 Last Infusion: 11/19/22 20:30 Dose: 0 mls/hr Documented By: Admin: 11/19/22 19:45 Dose: 140 mls/hr Documented By: DIGNA Ioversol (Ioversol 350 Mg 125ml Prefilled Syringe) 115 ml IV ONCE ONE Stop: 11/19/22 21:39 Last Admin: 11/19/22 21:40 Dose: 115 ml Documented By: ALDO Lorazepam (Lorazepam 2 Mg/1 Ml Vial) 0.25 mg IV NOW STA Stop: 11/19/22 18:30 Last Admin: 11/19/22 18:33 Dose: 0.25 mg Documented By: ML Lorazepam (Lorazepam 2 Mg/1 Ml Vial) Confirm Administered Dose 2 mg .ROUTE .STK- MED ONE Stop: 11/19/22 18:32 Last Admin: 11/19/22 18:32 Dose: Not Given Documented By: ML Methylprednisolone (Methylprednisolone 125 Mg/2 Ml Vial) 125 mg IV NOW STA Stop: 11/19/22 20:12 Last Admin: 11/19/22 21:07 Dose: 125 mg Documented By: BMK Metoprolol Tartrate (Metoprolol Tartrate 1 Mg/Ml Vial) 5 mg IV NOW STA Stop: 11/19/22 18:13 Last Admin: 11/19/22 18:14 Dose: 5 mg Documented By: ML Imaging Data Radiologist's Impression: Chest X-Ray 11/19/22 17:41 XR chest 1V portable CLINICAL HISTORY: Chest pain, nonspecific COMPARISON STUDY: Chest radiograph September 30, 2022. Chest CT August 21, 2022. PET/CT September 07, 2022. FINDINGS: There is no pneumothorax or pleural effusion. Moderate elevation of the left hemidiaphragm is unchanged. Lucency under the left hemidiaphragm likely reflects gas within the stomach. There is no lucency under the right hemidiaphragm. Triangular shaped right basilar opacity favors atelectasis. No consolidation is identified to suggest pneumonia. Minimal left upper lobe opacity is similar to prior PET/CT. This may reflect scarring. Cardiomediastinal silhouette is stable. Left subclavian [id number] is in place. There is pulmonary vascular congestion. IMPRESSION: 1. Pulmonary vascular congestion without overt pulmonary edema. 2. Elevation of the left hemidiaphragm. Lucency under the left hemidiaphragm probably reflects gas within the stomach. 3. Bibasilar opacities which favor atelectasis. ACT 112: Negative or not required by law. Electronically signed by: Sanchez Begum M.D. 11/19/2022 6:12 PM Venous Doppler Study 11/19/22 18:30 CR Exam(s): US VENOUS BILATERAL LOWER EXTREMITIES EXAM: US Duplex Bilateral Lower Extremities Veins CLINICAL HISTORY: Reason for exam: ?dvt. TECHNIQUE: Real-time duplex ultrasound scan of the bilateral lower extremity veins integrating B-mode two-dimensional vascular structure, Doppler spectral analysis, color flow Doppler imaging and compression. COMPARISON: None. FINDINGS: Right deep veins: Unremarkable. No DVT in the right common femoral, femoral, proximal deep femoral or popliteal veins. The veins demonstrate normal color flow, are normally compressible, with normal phasic flow and/or augmentation response. Right superficial veins: Unremarkable. No thrombus in the visualized right great saphenous vein. Left deep veins: Internal echoes with absent compressibility and absent flow within 1 of the left posterior tibial vein with occlusive thrombus. No DVT in the right common femoral, femoral, proximal deep femoral or popliteal veins. The veins at these levels demonstrate normal color flow, are normally compressible, with normal phasic flow and/or augmentation response. Left superficial veins: Unremarkable. No thrombus in the visualized left great saphenous vein. Soft tissues: Partially complex cystic collection involving the right popliteal fossa measuring 6.1 x 0.9 x 2.1 cm. IMPRESSION: Occlusive deep venous thrombosis in one of the left posterior tibial vein, remainder of the duplex ultrasound of the left lower extremity unremarkable. No deep venous thrombosis involving the right lower extremity. Complex right popliteal cystic structure versus resolving hematoma or infectious process measuring up to 6.1 cm in length, clinical correlation recommended. Communications: Call Doctor Other Electronically signed by: Connie Soni MD 11/19/22 21:15 PM Discharge Plan Visit Data Chief Complaint: Cardiac Assessment Stated Complaint: SOB, ED Provider: Chidi Marroquin Discharge Problem: Respiratory failure, Atrial tachycardia Forms Stand Alone Forms: [facility] [employer] Prescriptions Prescriptions: No Action cholecalciferol (vitamin D3) 25 mcg (1,000 unit) capsule 25 mcg PO DAILY mecobalamin (vitamin B12) 1,000 mcg tablet,disintegrating 2,500 mcg sublingual DAILY Rx Instructions: place tablet under tongue and allow to dissolve for at least30 secs before swallowing sennosides [Senokot] 8.6 mg tablet 8.6 mg PO DAILY PRN (Reason: Constipation) melatonin 3 mg capsule 10 mg PO HS PRN (Reason: Sleep) (DME) nebulizers Misc See Rx Instructions .Route Qty: 1 0RF Rx Instructions: nebulizer and nebulizer kits/supplies ANNALISA-99 Gemtesa 75 mg tablet 75 mg PO DAILY Qty: 90 3RF folic acid 1 mg tablet 1 mg PO QPM Qty: 30 3RF Eliquis 5 mg tablet 5 mg PO BID Qty: 180 1RF Breztri Aerosphere 160-9-4.8 mcg/actuation HFA aerosol inhaler 2 inh inhalation BID Qty: 10.7 2RF olanzapine 5 mg tablet 5 mg PO HS 90 Days Qty: 90 3RF prednisone 10 mg tablet 10 mg PO DAILY 90 Days Qty: 90 3RF trazodone 50 mg tablet 100 mg PO QPM 90 Days Qty: 180 3RF acetaminophen [Tylenol Arthritis Pain] 650 mg tablet extended release 1,950 mg PO Q12H polyethylene glycol 3350 [Miralax] 17 gram/dose powder 17 g PO DAILY Qty: 238 0RF docusate sodium [Colace] 100 mg capsule 100 mg PO BID Qty: 60 0RF omeprazole 40 mg capsule,delayed release(DR/EC) 40 mg PO QAM Caltrate 600-D Plus Minerals 600 mg calcium- 800 unit-50 mg Tablet 1 tab PO BID Qty: 60 0RF Rx Instructions: OTC furosemide [Lasix] 20 mg tablet 20 mg PO QAM PRN (Reason: leg swelling) Qty: 30 0RF sertraline 25 mg tablet 25 mg PO HS ipratropium-albuterol 0.5 mg-3 mg(2.5 mg base)/3 mL solution for nebulization 3 ml inhalation BID PRN (Reason: wheezing) Referrals Referrals: Genoveva Stallings PA-C [Primary Care Provider] -
[2022-11-19] MEDS ORDERED: METOPROLOL TARTRATE 1 MG/ML VIAL IV STA (18:12)
[2022-11-19 18:13] LABS: iSTAT Arterial Blood Gas HCO3 29 meg/L (19-24); iSTAT Arterial Blood Gas pCO2 69 mmHg (35-46); iSTAT Arterial Blood Gas pH 7.23 (7.35-7.45); iSTAT Arterial Blood Gas pO2 183 mmHg (80-95); iSTAT Carbon Dioxide 31 mmol/L (24-31); iSTAT Hematocrit 33 % (37-47); iSTAT Hemoglobin 11.2 g/dl (12.0-16.0); iSTAT Potassium 4.6 mmol/L (3.3-5.0); iSTAT Sodium 133 mmol/L (135-144)
--- NOTE | 2022-11-19 18:14 | XRay Report ---
XR chest 1V portable CLINICAL HISTORY: Chest pain, nonspecific COMPARISON STUDY: Chest radiograph September 30, 2022. Chest CT August 21, 2022. PET/CT September 07, 2022. FINDINGS: There is no pneumothorax or pleural effusion. Moderate elevation of the left hemidiaphragm is unchanged. Lucency under the left hemidiaphragm likely reflects gas within the stomach. There is n o lucency under the right hemidiaphragm. Triangular shaped right basilar opacity favors atelectasis. No consolidation is identified to suggest pneumonia. Minimal left upper lobe opacity is similar to pr ior PET/CT. This may reflect scarring. Cardiomediastinal silhouette is stable. Left subclavian Infuse -a-Port is in place. There is pulmonary vascular congestion. IMPRESSION: 1. Pulmonary vascular congestion without overt pulmonary edema. 2. Elevation of the left hemidiaphragm. Lucency under the left hemidiaphragm probably reflects gas wi thin the stomach. 3. Bibasilar opacities which favor atelectasis. ACT 112: Negative or not required by law. Electronically signed by: Sanchez Begum M.D. 11/19/2022 6:12 PM
[2022-11-19 18:27] LABS: Basophils # (auto) 0.09 K/uL (0-0.2); Basophils % (auto) 0.5 %; Eosinophils # (auto) 0.01 K/uL (0-0.50); Eosinophils % (auto) 0.1 %; Hematocrit (blood only) 34.7 % (37.0-47.0); Hemoglobin 10.9 g/dl (12.0-16.0); Immature Granulocytes # (auto) 0.42 K/uL (0.01-0.20); Immature Granulocytes % (auto) 2.3 %; Lymphocytes # (auto) 2.99 K/uL (1.2-3.4); Lymphocytes % (auto) 16.4 %; Mean Corpuscular Hgb Conc 31.4 g/dL (32.0-36.0); Mean Corpuscular Volume 111.6 fL (80.0-100.0); Mean Platelet Volume 9.1 fL (9.4-12.4); Monocytes % (auto) 4.9 %; Neutrophils % (auto) 75.8 %; Platelet Count 519 K/uL (130-400); RDW Coefficient of Variation 14.4 % (11.5-14.5); Red Blood Count 3.11 M/uL (4.20-5.40); White Blood Count 18.21 K/ul (4.8-10.8)
[2022-11-19] MEDS ORDERED: LORazepam 2 MG/1 ML VIAL IV STA (18:29)
[2022-11-19] MEDS ORDERED: LORazepam 2 MG/1 ML VIAL ONE (18:31)
[2022-11-19 18:48] LABS: Albumin Level 3.7 gm/dl (3.4-5.0); Bilirubin,Total 0.3 mg/dl (0.2-1.0); Calcium 9.6 mg/dl (8.6-10.3); Potassium 4.8 mmol/L (3.5-5.1)
[2022-11-19 18:53] LABS: Prothrombin Time 11.4 Seconds (9.0-12.0)
[2022-11-19 18:54] LABS: Albumin Globulin Ratio 1.4 (0.9-2); Creatinine Clr Calc Pharmacy 47.4 ml/min; Est GFR (African American) 66.9 ml/min; Est GFR (Non-African American) 57.7 ml/min; Globulin 2.6 gm/dl (2.5-4.0); Total Protein 6.3 gm/dl (6.0-8.3)
[2022-11-19 18:59] LABS: Troponin I High Sensitivity 34.6 pg/ml (0-14)
[2022-11-19] MEDS ORDERED: cefTRIAXone SODIUM 2,000 MG/70 ML BAG IV STA (19:25)
[2022-11-19] MEDS ORDERED: Heparin IV Adult Wt-Based Standard WITH Bolus Protocol IV STA (20:10)
[2022-11-19] MEDS ORDERED: methylPREDNISolone 125 MG/2 ML VIAL IV STA (20:11)
[2022-11-19] MEDS ORDERED: HEPARIN SOD (PORCINE) 1000 UNIT/ML IV ONE ×2 (20:25→21:15)
[2022-11-19 20:39] LABS: Partial Thromboplastin Ratio 0.9; Partial Thromboplastin Time 24.3 Seconds (21.0-31.0)
--- NOTE | 2022-11-19 21:16 | Ultrasound Report ---
Exam(s): US VENOUS BILATERAL LOWER EXTREMITIES EXAM: US Duplex Bilateral Lower Extremities Veins CLINICAL HISTORY: Reason for exam: ?dvt. TECHNIQUE: Real-time duplex ultrasound scan of the bilateral lower extremity veins integrating B-mode two-dimensional vascular structure, Doppler spectral analysis, color flow Doppler imaging and compression. COMPARISON: None. FINDINGS: Right deep veins: Unremarkable. No DVT in the right common femoral, femoral, proximal deep femoral or popliteal veins. The veins demonstrate normal color flow, are normally compressible, with normal phasic flow and/or augmentation response. Right superficial veins: Unremarkable. No thrombus in the visualized right great saphenous vein. Left deep veins: Internal echoes with absent compressibility and absent flow within 1 of the left posterior tibial vein with occlusive thrombus. No DVT in the right common femoral, femoral, proximal deep femoral or popliteal veins. The veins at these levels demonstrate normal color flow, are normally compressible, with normal phasic flow and/or augmentation response. Left superficial veins: Unremarkable. No thrombus in the visualized left great saphenous vein. Soft tissues: Partially complex cystic collection involving the right popliteal fossa measuring 6.1 x 0.9 x 2.1 cm. IMPRESSION: Occlusive deep venous thrombosis in one of the left posterior tibial vein, remainder of the duplex ultrasound of the left lower extremity unremarkable. No deep venous thrombosis involving the right lower extremity. Complex right popliteal cystic structure versus resolving hematoma or infectious process measuring up to 6.1 cm in length, clinical correlation recommended. Communications: Call Doctor Other Electronically signed by: Connie Soni MD 11/19/22 21:15 PM
[2022-11-19] MEDS ORDERED: IOVERSOL 350 MG 125mL Prefilled Syringe IV ONE (21:38)
[2022-11-19] MEDS: HEPARIN SODIUM/DEXTROSE 25,000 UNITS/500 ML BAG IV SCH (22:20)
--- NOTE | 2022-11-19 22:56 | CT Scan Report ---
Exam(s): CTA CHEST IV Amt: 115 ml optiray 350 EXAM: CT Angiography Chest With Intravenous Contrast CLINICAL HISTORY: Reason for exam: PE. TECHNIQUE: Axial computed tomographic angiography images of the chest with intravenous contrast. Automated exposure control was utilized for the study. A dose lowering technique was utilized adhering to the principles of ALARA. MIP reconstructed images were created and reviewed. COMPARISON: None. FINDINGS: Pulmonary arteries: Unremarkable. Normal SPECT of the pulmonary arteries with no filling defect to suggest pulmonary embolus. Aorta: Atherosclerotic disease of aorta with no aneurysm or dissection. Lungs: Areas of course consolidation involving the lingular and left upper lobe which may indicate pneumonia, cannot exclude underlying neoplasm. Thickening of the wall of the left upper and left lower lobe bronchi which may indicate bronchiectasis, cannot exclude sequela of postinflammatory process or radiation. There is elevation of the left hemidiaphragm with suggestion of volume loss of the left lower lobe. Right lower lobe atelectasis. Mild right middle lobe atelectasis. Pleural space: Mild bilateral pleural effusions. No pneumothorax. Heart: Borderline cardiomegaly with coronary artery calcifications. No significant pericardial effusion. No evidence of RV dysfunction. Bones/joints: Compression fractures T12 and L1 of indeterminate age otherwise incompletely characterized. Diffuse osteopenia with multilevel degenerative disease of the spine. No dislocation. Soft tissues: Unremarkable. Lymph nodes: Unremarkable. No enlarged lymph nodes. Tubes, lines and devices: Left-sided chest port in place. IMPRESSION: 1. No pulmonary embolus or aortic dissection. 2. Left lower lobe and left upper lobe coarse opacities with thickening of the wall throughout the bilateral upper and lower lobe bronchi suggestive of pneumonitis with bronchiectasis. Volume loss within the left lower lobe which may indicate sequela of scarring or atelectasis. Recommend follow-up with CT chest in 3-6 months interval to evaluate improvement and exclude underlying neoplasm. Alternatively, due to thickening of central bronchi, findings may be further assessed with bronchoscopy. 3. Right lower lobe and right middle lobe atelectasis with bilateral mild pleural effusion. 4. Compression fractures of T12 and L1 vertebral bodies as described and of indeterminate age. Correlation to prior films and clinical history recommended. Electronically signed by: Connie Soni MD 11/19/22 22:55 PM
--- NOTE | 2022-11-19 23:34 | History & Physical Report ---
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 Patient found to have a left DVT and suspect patient is having a pulmonary embolism, CTA of the chest pending. Patient to be admitted and is currently on heparin drip. -Admit to telemetry -Currently on BiPAP, continue at this time -Bilateral venous Doppler of the lower extremities shows obstructive left DVT, CTA of the chest pending -Creatinine sudden onset of shortness of breath with DVT found on ultrasound, suspect pulmonary embolism -Continue heparin drip with bolus for now -Hold Eliquis -Repeat ABG in the morning -Continue home COPD inhalers as below -Imaging not suggestive of pneumonia, will not continue antibiotics at this time (2) DVT (deep venous thrombosis): Plan: - Treated with heparin as above -Suspect Lovenox to be used for long-term prophylaxis (3) Small cell lung cancer: Plan: - Noted, with recent diagnosis of metastasis to the liver -Currently on immunotherapy -Suspect patient will have to be put on Lovenox rather than Eliquis on discharge (4) Paroxysmal atrial fibrillation: Plan: - EKG in ambulance was suggestive of A-fib with RVR -Patient given Lopressor and her rates improved and is now in sinus rhythm -Patient no longer on beta-joellen as home med per daughter's history (5) Urinary incontinence: Plan: -Continue vibegron (6) Anemia: Plan: - Chronic, no intervention at this time (7) Elevated troponin: Plan: - Found on initial labs, repeat pending -Suspect demand ischemia in the setting of tachycardia (8) Chronic obstructive pulmonary disease: Plan: - Continue home breathing treatments -Exam/ hx not suggestive of COPD exacerbation -DuoNeb twice daily as needed for shortness of breath/wheezing (9) Anxiety: Plan: -Continue sertraline, Zyprexa (10) Insomnia: Plan: -Continue trazodone (11) Diabetes mellitus, type 2: Plan: - Diet controlled, last A1c in February 2022 was less than 6 -No insulin orders at this time, may add sliding scale later if sugars were to be persistently elevated -Heart healthy diet (12) PMR (polymyalgia rheumatica): Plan: - Continue daily prednisone Plan Disposition: Admit to telemetry for heparin drip and respiratory failure Diet: Heart healthy DVT prophylaxis: Heparin drip CODE STATUS: Full code as discussed thoroughly with patient's daughter. 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 Majority of history is obtained from the daughter who is in the room at the time of interview and exam. Patient was eating dinner at approximately 1700 hrs. when she had sudden onset shortness of breath. Daughter states that she did not have any chest pain at the time. They turned the patient's oxygen up from 2 L up to 5 L and continued to have shortness of breath. It was for this reason that EMS was called. Patient has a history of small cell lung cancer for which she sees the cancer center. This was diagnosed in October 2021. Currently on immunotherapy and sees the cancer center every few weeks for treatment. Recently found to have a metastatic lesion in the liver confirmed by biopsy on 09/21/2022. Patient is on Eliquis for DVT prophylaxis in the setting of cancer. No missed medications as far as the daughter can tell. Discussed with the daughter but the patient's wishes are in terms of CODE STATUS. Daughter ex plains that she wants the patient to be full code stating that "what is the point of going as far with cancer treatment and not doing everything you can to stay alive." Discussed with the daughter the low likelihood of survivability and increased likelihood of mortality after discharge if we were even able to achieve ROSC or improve breathing after intubation. Patients daughter would still like to move forward with a full CODE STATUS. ED course: Patient evaluated by provider. Labs were significant for an elevated white blood cell count of 18.21, hemoglobin of 10.9, ABG with a pH of 7.23 PCO2 of 69, PO2 of 183, and HCO3 of 29. Glucose at 223, alkaline phosphatase elevated at 191. High-sensitivity troponin elevated at 34.6. Bilateral venous Dopplers of the lower extremities were ordered which did show DVT in the left lower extremity. At that time, a heparin bolus and drip was started for concern of pulmonary embolism. It was at this time that the hospitalist service was consulted for admission. A chest CTA was ordered which is pending at the time of writing this note. Allergies Allergy/AdvReac Type Severity Reaction Status Date / Time castor oil Allergy Severe "TAXANES" Verified 11/19/22 18:55 CAUSE DYSPNEA, RASH, ELEVATED BP docetaxel [From Taxotere] Allergy Severe "TAXANES" Verified 11/19/22 18:55 CAUSE DYSPNEA, RASH, ELEVATED BP paclitaxel Allergy Severe "TAXANES" Verified 11/19/22 18:55 CAUSE DYSPNEA, RASH, ELEVATED BP trimethoprim [From Bactrim] Allergy Severe Anaphylaxis Verified 11/19/22 18:55 Iodinated Contrast Media Allergy Intermediate HIVES/ITCHI Verified 11/19/22 18:55 NG nitrofurantoin Allergy Intermediate CHEST Verified 11/19/22 18:55 PAIN, DYSPNEA Sulfa (Sulfonamide Allergy Intermediate HIVES, Verified 11/19/22 18:55 Antibiotics) ITCHINESS, SHORTNESS OF BREATH phenazopyridine AdvReac Intermediate N/V Verified 11/19/22 18:55 codeine AdvReac COLD Verified 11/19/22 18:55 SWEAT, THINGS START SPINNING, NAUSEA Home Medications Medication Instructions Recorded Confirmed Type cholecalciferol (vitamin D3) 25 25 mcg PO DAILY 12/01/21 11/23/22 History mcg (1,000 unit) capsule nebulizers #1 ea 12/05/21 11/23/22 Rx docusate sodium 100 mg capsule 100 mg PO BID #60 caps 01/22/22 11/23/22 Rx (Colace) polyethylene glycol 3350 17 17 g PO DAILY #238 grams 01/22/22 11/23/22 Rx gram/dose oral powder (Miralax) omeprazole 40 mg capsule,delayed 40 mg PO QAM 03/18/22 11/23/22 History release calcium 600 mg-D3 800 unit-mag11 1 tab PO BID #60 tabs 04/27/22 11/23/22 Rx 50 wk-llka-kjcgjw-beulah-s.borat tablet (Caltrate 600-D Plus Minerals) furosemide 20 mg tablet (Lasix) 20 mg PO QAM PRN leg swelling #30 04/27/22 11/23/22 Rx tabs sennosides 8.6 mg tablet (Senokot) 8.6 mg PO DAILY PRN Constipation 06/01/22 11/23/22 History acetaminophen 650 mg 1,950 mg PO Q12H 07/12/22 11/23/22 History tablet,extended release (Tylenol Arthritis Pain) melatonin 3 mg capsule 10 mg PO HS PRN Sleep 07/12/22 11/23/22 History vibegron 75 mg tablet (Gemtesa) 75 mg PO DAILY #90 tabs 07/20/22 11/23/22 Rx folic acid 1 mg tablet 1 mg PO QPM #30 tabs 08/16/22 11/23/22 Rx budesonide 160 mcg-glycopyr 9 2 inh inhalation BID #10.7 grams 09/11/22 11/23/22 Rx mcg-formot 4.8 mcg/actuation HFA inhaler (Breztri Aerosphere) olanzapine 5 mg tablet 5 mg PO HS 90 days #90 tabs 09/27/22 11/23/22 Rx prednisone 10 mg tablet 10 mg PO DAILY 90 days #90 tabs 09/27/22 11/23/22 Rx trazodone 50 mg tablet 100 mg PO QPM 90 days #180 tabs 09/27/22 11/23/22 Rx sertraline 25 mg tablet 25 mg PO HS 10/19/22 11/23/22 History mecobalamin (vitamin B12) 1,000 2,500 mcg sublingual DAILY 10/26/22 11/23/22 History mcg disintegrating tablet,sublingual ipratropium 0.5 mg-albuterol 3 mg 3 ml inhalation BID PRN wheezing 11/19/22 11/23/22 History (2.5 mg base)/3 mL nebulization soln metoprolol tartrate 25 mg tablet 25 mg PO TID #100 tabs 11/22/22 11/23/22 Rx triamterene 37.5 1 cap PO QAM #30 caps 11/22/22 11/23/22 Rx mg-hydrochlorothiazide 25 mg capsule warfarin 2.5 mg tablet (Jantoven) 2.5 mg PO DAILY@1600 #15 tabs 07/26/23 07/31/23 Rx Past Med/Surg History Medical History (Updated 11/24/22 @ 12:59 by Karl Carolina LPN) Anemia Anticoagulant long-term use Anxiety Asthma (04/25/12) Stable and controlled Atrial flutter with rapid ventricular response Cardiomyopathy Chronic dyspnea Chronic hypoxemic respiratory failure Chronic obstructive pulmonary disease Chronic respiratory failure with hypoxia Compression fracture of L1 vertebra (08/15/21) Chronic Diabetes mellitus, type 2 NIDDM- WELL CONTROLLED AND STABLE Endometrial thickening on ultrasound Ex-smoker Excessive cerumen in both ear canals GERD (gastroesophageal reflux disease) Hearing deficit NO AIDS Hemoptysis History of breast cancer RIGHT S/P LUMPECTOMY/CHEMO/RADATION (2009)- STABLE AT THIS TIME History of diverticulitis History of liver disease 03/2019 [facility] FOR LIVER ABSCESS- GIVEN ABXS X MONTHS- FOLLOWING WITH [facility] FOR MONITORING -RECENT CT SCAN 06/16/19- SHOWS ABSCESS TO BE DECREASED TO 3.5CM (SURGEON IS AWARE) Hx of bladder cancer HAD BCG INSTILLATION - DX: 2012 Hypomagnesemia Insomnia Left rib fracture (2016) Liver abscess Lower extremity edema Malignant neoplasm of lung Bronch with biopsy on 11/15/21 Migraine HX Osteoporosis Pancytopenia due to antineoplastic chemotherapy Paroxysmal atrial fibrillation Pneumonia Polymyalgia rheumatica Port-A-Cath in place Small cell lung cancer Small cell lung cancer Tremor RIGHT HAND Ureteral tumor Urinary incontinence UTI (urinary tract infection) Vertebral fracture LUMBAR AND THORACIC Surgical History (Updated 11/24/22 @ 00:08 by Ruth Sheldon) H/O cystoscopy SEVERAL History of appendectomy History of arthroscopy B/L KNEE History of breast biopsy History of bronchoscopy 11/15/21 History of cholecystectomy History of colonoscopy History of elbow surgery RIGHT History of lumpectomy of right breast History of surgery TURBT X 2; TURBT, CYSTO, RIGHT RPG, STENT: 07/11/18: LMA#4 AT [facility] History of surgery LEFT CHEST PORT Nausea and vomiting after administration of anesthetic agent S/P ablation of atrial flutter Family History Other Adopted Family history unknown Social History Smoking Status: Former smoker Tobacco Type: Cigarettes Cigarettes Per Day: Less than 1/2 PPD now;Smoked 50+yrs;; Second Hand Exposure: No; Do You Dip or Chew Tobacco: No; Hx Alcohol Use: No Hx Substance Use: No Preferred Language: Kyrgyz Communication Ability: Effective Visual Impairment: No Limitations Hearing Ability: Hard of Hearing Hat Band Attacher Required: No Beliefs That Will Affect Care: None marital status: Single Current Living Situation: Other Current Living Situation Comment: lives with roommate current occupational status: retired Feels Safe at Home: Yes Childhood Exposure to Second-Hand Smoke: Yes Diet: regular caffeine: No during the past year weight has: remained stable Dental Care, Regularly: Yes Physical Activity Frequency: 1-2 Times per Week Seatbelt Use: always Sunscreen Use: Yes Assistive Devices: Oxygen - Continuous and Walker Review of Systems Review of Systems: Unobtainable due to reduced consciousness Physical Exam Constitutional: well nourished, comfortable and + lethargic; no acute distress Eyes: + anicteric sclerae Neck: trachea midline, no thyromegaly Respiratory: + tachypneic Auscultation: + crackles Cardiovascular: Rate/Rhythm: regular rate and regular rhythm Heart Sounds: no murmur Vessels: no JVD Gastrointestinal (Abdomen): normal bowel sounds, soft, nontender, no hepatosplenomegaly Musculoskeletal: Head/Neck/Chest: normocephalic and head atraumatic Skin: no rashes, warm and dry Neurologic: moves all extremities Results & Data Results & Data Vital Signs (Past 12 Hours) Vital Signs Temp Pulse Pulse Resp BP BP Pulse Ox 11/19/22 23:21 94 H 99/69 L 11/19/22 22:49 97 H 30 H 98/61 L 99 11/19/22 21:00 89 30 H 83/56 L 99 11/19/22 21:46 106 H 11/19/22 19:55 130 H 30 H 100 11/19/22 19:15 100 H 30 H 99/69 L 100 11/19/22 18:46 104 H 39 H 126/66 100 11/19/22 18:18 105 H 28 H 126/91 98 11/19/22 18:14 135 H 120/86 11/19/22 18:08 138 H 34 H 98 11/19/22 18:09 136 H 30 H 120/86 98 11/19/22 17:41 138 H 24 98 11/19/22 17:41 81 L 11/19/22 17:41 36.0 C L 139 H 31 H 125/76 81 L 11/19/22 17:50 139 H O2 Del Method FiO2 11/19/22 23:21 11/19/22 22:49 BiPAP 11/19/22 21:00 BiPAP 11/19/22 21:46 11/19/22 19:55 40 11/19/22 19:15 BiPAP 11/19/22 18:46 BiPAP 11/19/22 18:18 BiPAP 11/19/22 18:14 11/19/22 18:08 50 11/19/22 18:09 BiPAP 11/19/22 17:41 BiPAP 11/19/22 17:41 Room Air 11/19/22 17:41 Room Air 11/19/22 17:50 Code Status & VTE Plan VTE Prophylaxis Plan VTE Prophylaxis will be ordered: Yes Supervising Physician Co-Signing Physician Notes Attending addendum: I have physically seen this patient, have supervised the medical residents activities, and agree with the H&P unless as otherwise noted. Assessment and Plan: Acute respiratory failure with hypoxia and hypercapnia- Continue BiPAP, taper nasal cannula oxygen as symptoms improve Order CTA chest PE protocol to rule out PE. PE likely with ultrasound venous Doppler showing left lower extremity DVT Holding Eliquis Check anti-Xa Heparin drip with bolus Repeat ABG in the a.m. Duonebs every 4 hours while awake and every 2 hours when necessary. Left lower extremity DVT- Holding Eliquis and checking anti-Xa level Heparin bolus and drip per protocol Small cell lung cancer-metastases to liver Immunotherapy Long-term management of VTE with cancer history would be Lovenox Paroxysmal atrial fibrillation/elevated troponin/hypertension- A-fib with RVR in route in the ambulance Improved with Lopressor given, continue Remaining orders and notations as noted
[2022-11-20] MEDS ORDERED: ALBUT/IPRATROP 3MG/0.5MG NEB 3 ML VIAL INH PRN (00:58)
[2022-11-20] MEDS ORDERED: SENNA 8.6 MG TAB PO PRN (00:58)
[2022-11-20] MEDS ORDERED: ONDANSETRON INJ 2 MG/ML 2 ML VIAL IV PRN (00:58)
[2022-11-20] MEDS: MELATONIN 3 MG TAB PO PRN ×2 (01:44→20:44)
[2022-11-20] MEDS ORDERED: LORazepam 2 MG/1 ML VIAL IV STA ×2 (01:47→22:16)
[2022-11-20 05:09] LABS: Hematocrit (blood only) 30.7 % (37.0-47.0); Hemoglobin 9.7 g/dl (12.0-16.0); Mean Corpuscular Hemoglobin 35.5 pg (25.0-34.0); Mean Corpuscular Hgb Conc 31.6 g/dL (32.0-36.0); Mean Corpuscular Volume 112.5 fL (80.0-100.0); Platelet Count 290 K/uL (130-400); RDW Coefficient of Variation 14.6 % (11.5-14.5); RDW Standard Deviation 61.5 fL (36.4-46.3); Red Blood Count 2.73 M/uL (4.20-5.40); White Blood Count 10.64 K/ul (4.8-10.8)
[2022-11-20 05:41] LABS: Albumin Globulin Ratio 1.3 (0.9-2); Albumin Level 3.1 gm/dl (3.4-5.0); BUN Creatinine Ratio 23.5 (10-20); Bilirubin,Total 0.3 mg/dl (0.2-1.0); Calcium 8.8 mg/dl (8.6-10.3); Creatinine Clr Calc Pharmacy 51.4 ml/min; Est GFR (African American) 80.1 ml/min; Est GFR (Non-African American) 69.1 ml/min; Globulin 2.4 gm/dl (2.5-4.0); Magnesium 1.8 mg/dl (1.7-2.4); Potassium 4.9 mmol/L (3.5-5.1); Total Protein 5.5 gm/dl (6.0-8.3)
[2022-11-20 05:46] LABS: Partial Thromboplastin Ratio 2.9
[2022-11-20 05:50] LABS: Partial Thromboplastin Time 81.6 Seconds (21.0-31.0)
[2022-11-20 05:52] LABS: HCO3 ABG 27 mmol/L (19-24); Oxygen Saturation ABG 99.3 % (90-95); PCO2 ABG 44 mmHg (35-46); PO2 ABG 132 mmHg (80-95)
[2022-11-20 06:31] LABS: Allen Test Pos (Pos)
--- NOTE | 2022-11-20 08:48 | Electrocardiogram Report ---
Test Reason : Blood Pressure : / mmHG Vent. Rate : 138 BPM Atrial Rate : 138 BPM P-R Int : 126 ms QRS Dur : 104 ms QT Int : 296 ms P-R-T Axes : 016 -57 083 degrees QTc Int : 448 ms Sinus tachycardia Left anterior fascicular block Cannot rule out Anterior infarct , age undetermined Abnormal ECG When compared with ECG of 30-SEP-2022 14:05, Vent. rate has increased BY 56 BPM Incomplete right bundle branch block is no longer Present Borderline Criteria for Anterior infarct is now Present Confirmed by Sb Das ([id number]) on 11/20/2022 8:48:25 AM Referred By: REFERRED SELF Confirmed By:Sb Das
--- NOTE | 2022-11-20 08:49 | Electrocardiogram Report ---
Test Reason : Blood Pressure : / mmHG Vent. Rate : 137 BPM Atrial Rate : 137 BPM P-R Int : 144 ms QRS Dur : 092 ms QT Int : 310 ms P-R-T Axes : 000 -57 076 degrees QTc Int : 468 ms Sinus tachycardia Left anterior fascicular block Cannot rule out Anterior infarct , age undetermined (cited on or before 19-NOV-2022) Abnormal ECG When compared with ECG of 19-NOV-2022 17:49, No significant change Confirmed by Sb Das ([id number]) on 11/20/2022 8:49:15 AM Referred By: REFERRED SELF Confirmed By:Sb Das
--- NOTE | 2022-11-20 08:50 | Electrocardiogram Report ---
Test Reason : Blood Pressure : / mmHG Vent. Rate : 103 BPM Atrial Rate : 103 BPM P-R Int : 170 ms QRS Dur : 110 ms QT Int : 384 ms P-R-T Axes : 060 -57 055 degrees QTc Int : 503 ms Sinus tachycardia Incomplete right bundle branch block Left anterior fascicular block Cannot rule out Anterior infarct , age undetermined (cited on or before 19-NOV-2022) Abnormal ECG When compared with ECG of 19-NOV-2022 18:06, Incomplete right bundle branch block is now Present Otherwise no significant change Confirmed by Sb Das ([id number]) on 11/20/2022 8:49:59 AM Referred By: REFERRED SELF Confirmed By:Sb Das
[2022-11-20] MEDS: DOCUSATE SODIUM 100 MG CAP PO SCH ×2 (09:55→20:46)
[2022-11-20] MEDS: FLUTICASONE FUROATE 200MCG 14 PUFFS/INHALER INH SCH (09:56)
[2022-11-20] MEDS: VIBEGRON 75 MG TAB PO SCH (09:56)
[2022-11-20] MEDS: predniSONE 10 MG TABLET PO SCH (09:56)
[2022-11-20] MEDS: POLYETHYLENE (MIRALAX) 17 GM PACK PO SCH (09:56)
[2022-11-20] MEDS: PANTOprazole 40 MG TAB PO SCH (09:56)
[2022-11-20] MEDS: UMECLIDINIUM/VILANTEROL 62.5/25MCG 7 PUFFS/INHALER INH SCH (09:57)
--- NOTE | 2022-11-20 11:40 | Cardiology Consultation ---
Date of Consultation November 20, 2022 Assessment & Plan (1) Elevated troponin: Abrupt onset of dyspnea/tachypalpitations without chest pain inpatient who appears to have an SVT suggest that this could be due to demand ischemia. However, magnitude of troponin elevation is considerable and there are some ECG changes of concern (ST elevation in V2 and loss of precordial R wave voltage), therefore will check echocardiogram (ordered) to rule out new wall motion abnormality suggesting infarct. If no new wall motion abnormalities present, would attribute troponin elevation to SVT and aim treatment at managing this. Further recommendations based on echo results. (2) SVT (supraventricular tachycardia): Although ECGs initially look like sinus rhythm, review of telemetry showed paroxysmal change in heart rate suggesting that this is a supraventricular tachycardia. It does not appear to be flutter but likely has some form of atrial tachycardia or inappropriate sinus tachycardia which is intermittent. Would recommend initiation of metoprolol 25 mg p.o. every 12 hours, hold for heart rate less than 60 bpm or systolic blood pressure less than 80 mmHg. (3) S/P ablation of atrial flutter: Dr. Dupree follows the patient and performed her prior atrial flutter ablation, will review ECGs with him and seek further input regarding rhythm management. (4) Chronic respiratory failure with hypoxia: The very abrupt onset of her symptoms suggests that this was not primarily a respiratory event, as noted suspect SVT caused decompensation. She was breathing comfortably this morning on supplemental oxygen. (5) DVT (deep venous thrombosis): Apparent failure of apixaban anticoagulation, likely due to presence of malignancy. Would recommend transitioning from heparin to warfarin for long-term anticoagulation. Could enroll in [facility] anticoagulation clinic or we can follow her INRs from the cardiology office. (6) Small cell lung cancer: Presence of metastatic disease important to recognize as context for treatment of cardiac issues. Would not likely pursue aggressive risk stratification regarding potential underlying coronary artery disease, since she would not be a CABG candidate and likely would not be a candidate for percutaneous coronary intervention which would require chronic antiplatelet agents (relatively contraindicated during chemotherapy). Management of her apparent SVT would be most appropriate way to limit recurrence of myocardial ischemia. 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 At baseline, she notes dyspnea on more than mild exertion but has no dyspnea at rest on 2 L nasal cannula. She felt perfectly well throughout the day yesterday, while sitting at dinner she had abrupt onset of dyspnea without chest pain, sometime later she noted tachypalpitations. No presyncope or syncope. No weight change, orthopnea, PND, or ankle edema. Serial ECGs appear to show sinus tachycardia in the 140 bpm range, however on telemetry she had an abrupt drop in heart rate from around 135bpm to 95 bpm with a rate remaining mostly at the lower level subsequently. She did have 1 brief episode where her rate abruptly increased to near 140 bpm again, but then returned to 95 bpm. On twelve-lead ECG, P wave morphology is similar to baseline and would appear to be sinus, however given the paroxysmal nature of her heart rate change it seems more likely that this is some form of supraventricular tachycardia (albeit not likely atrial flutter). Troponin did increase markedly from initial value of 34.6 to 1248.3. ECGs do show some mild ST elevation in lead V2 alone and there is a loss of precordial R wave voltage compared with a 09/30/2022 ECG. She felt better not long after being admitted to the hospital and had an uneventful night and feels well this morning. No chest pain at any time and no somatic complaints currently. Allergies Allergy/AdvReac Type Severity Reaction Status Date / Time castor oil Allergy Severe "TAXANES" Verified 11/19/22 18:55 CAUSE DYSPNEA, RASH, ELEVATED BP docetaxel [From Taxotere] Allergy Severe "TAXANES" Verified 11/19/22 18:55 CAUSE DYSPNEA, RASH, ELEVATED BP paclitaxel Allergy Severe "TAXANES" Verified 11/19/22 18:55 CAUSE DYSPNEA, RASH, ELEVATED BP trimethoprim [From Bactrim] Allergy Severe Anaphylaxis Verified 11/19/22 18:55 Iodinated Contrast Media Allergy Intermediate HIVES/ITCHI Verified 11/19/22 18:55 NG nitrofurantoin Allergy Intermediate CHEST Verified 11/19/22 18:55 PAIN, DYSPNEA Sulfa (Sulfonamide Allergy Intermediate HIVES, Verified 07/23/23 18:55 Antibiotics) ITCHINESS, SHORTNESS OF BREATH phenazopyridine AdvReac Intermediate N/V Verified 11/19/22 18:55 codeine AdvReac COLD Verified 11/19/22 18:55 SWEAT, THINGS START SPINNING, NAUSEA Home Medications Medication Instructions Recorded Confirmed Type cholecalciferol (vitamin D3) 25 25 mcg PO DAILY 12/01/21 11/19/22 History mcg (1,000 unit) capsule nebulizers #1 ea 12/05/21 11/19/22 Rx docusate sodium 100 mg capsule 100 mg PO BID #60 caps 01/22/22 11/19/22 Rx (Colace) polyethylene glycol 3350 17 17 g PO DAILY #238 grams 01/22/22 11/19/22 Rx gram/dose oral powder (Miralax) omeprazole 40 mg capsule,delayed 40 mg PO QAM 03/18/22 11/19/22 History release calcium 600 mg-D3 800 unit-mag11 1 tab PO BID #60 tabs 04/27/22 11/19/22 Rx 50 jd-ppvq-gltrnr-beulah-s.borat tablet (Caltrate 600-D Plus Minerals) furosemide 20 mg tablet (Lasix) 20 mg PO QAM PRN leg swelling #30 04/27/22 11/19/22 Rx tabs sennosides 8.6 mg tablet (Senokot) 8.6 mg PO DAILY PRN Constipation 06/01/22 11/19/22 History acetaminophen 650 mg 1,950 mg PO Q12H 07/12/22 11/19/22 History tablet,extended release (Tylenol Arthritis Pain) melatonin 3 mg capsule 10 mg PO HS PRN Sleep 07/12/22 11/19/22 History vibegron 75 mg tablet (Gemtesa) 75 mg PO DAILY #90 tabs 07/20/22 11/19/22 Rx folic acid 1 mg tablet 1 mg PO QPM #30 tabs 08/16/22 11/19/22 Rx apixaban 5 mg tablet (Eliquis) 5 mg PO BID #180 tabs 08/21/22 11/19/22 Rx budesonide 160 mcg-glycopyr 9 2 inh inhalation BID #10.7 grams 09/11/22 11/19/22 Rx mcg-formot 4.8 mcg/actuation HFA inhaler (Breztri Aerosphere) olanzapine 5 mg tablet 5 mg PO HS 90 days #90 tabs 09/27/22 11/19/22 Rx prednisone 10 mg tablet 10 mg PO DAILY 90 days #90 tabs 09/27/22 11/19/22 Rx trazodone 50 mg tablet 100 mg PO QPM 90 days #180 tabs 09/27/22 11/19/22 Rx sertraline 25 mg tablet 25 mg PO HS 10/19/22 11/19/22 History mecobalamin (vitamin B12) 1,000 2,500 mcg sublingual DAILY 10/26/22 11/19/22 History mcg disintegrating tablet,sublingual ipratropium 0.5 mg-albuterol 3 mg 3 ml inhalation BID PRN wheezing 11/19/22 11/19/22 History (2.5 mg base)/3 mL nebulization soln Patient History Medical History Asthma (04/25/12) Stable and controlled Atrial flutter with rapid ventricular response Chronic dyspnea Chronic hypoxemic respiratory failure Compression fracture of L1 vertebra Diabetes mellitus, type 2 NIDDM- WELL CONTROLLED AND STABLE Endometrial thickening on ultrasound Ex-smoker Excessive cerumen in both ear canals GERD (gastroesophageal reflux disease) Hearing deficit NO AIDS Hemoptysis History of breast cancer RIGHT S/P LUMPECTOMY/CHEMO/RADATION (2009)- STABLE AT THIS TIME History of diverticulitis History of liver disease 03/2019 [facility] FOR LIVER ABSCESS- GIVEN ABXS X MONTHS- FOLLOWING WITH [facility] FOR MONITORING -RECENT CT SCAN 06/16/19- SHOWS ABSCESS TO BE DECREASED TO 3.5CM (SURGEON IS AWARE) Hx of bladder cancer HAD BCG INSTILLATION - DX: 2013 Hypomagnesemia Insomnia Left rib fracture (2016) Liver abscess Lower extremity edema Malignant neoplasm of lung Bronch with biopsy on 11/15/21 Migraine HX Osteoporosis Pancytopenia due to antineoplastic chemotherapy Pneumonia Port-A-Cath in place Small cell lung cancer Tremor RIGHT HAND Ureteral tumor UTI (urinary tract infection) Vertebral fracture LUMBAR AND THORACIC Surgical History (Updated 11/20/22 @ 11:49 by Sb Das MD) H/O cystoscopy SEVERAL History of appendectomy History of arthroscopy B/L KNEE History of breast biopsy History of bronchoscopy 11/15/21 History of cholecystectomy History of colonoscopy History of elbow surgery RIGHT History of lumpectomy of right breast History of surgery TURBT X 2; TURBT, CYSTO, RIGHT RPG, STENT: 07/11/18: LMA#4 AT [facility] History of surgery LEFT CHEST PORT Nausea and vomiting after administration of anesthetic agent S/P ablation of atrial flutter Family History Other Adopted Family history unknown Social History Smoking Status: Former smoker Tobacco Type: Cigarettes Cigarettes Per Day: Less than 1/2 PPD now;Smoked 50+yrs;; Second Hand Exposure: No; Do You Dip or Chew Tobacco: No; Tobacco Cessation Education Requested by Patient: No Hx Alcohol Use: No Hx Substance Use: No Preferred Language: Mongolian Communication Ability: Effective Visual Impairment: No Limitations Hearing Ability: Hard of Hearing 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 Beliefs That Will Affect Care: None marital status: Single Current Living Situation: Other Current Living Situation Comment: lives with roommate current occupational status: retired Other Information That Helps Us Care for You: No Feels Safe at Home: Yes Safety Concerns: Feels Safe At This Time Childhood Exposure to Second-Hand Smoke: Yes Diet: regular caffeine: No during the past year weight has: remained stable Dental Care, Regularly: Yes Physical Activity Frequency: 1-2 Times per Week Seatbelt Use: always Sunscreen Use: Yes Assistive Devices: Denture - Upper, Glasses, Oxygen - Continuous and Walker Physical Exam Physical Exam: Thin elderly white female appears chronically ill but in no acute distress. BMI 25.7. BP low normal/mildly hypotensive (currently 87/56 mmHg). Pulse 87 bpm and regular. Skin: no ecchymoses or generalized lesions. HEENT: unremarkable. Neck: JVP at the clavicle at 90 degrees, no carotid bruits. Lungs: Markedly decreased breath sounds bilaterally with faint expiratory wheezing and prolonged expiratory phase, no obvious crackles and no accessory muscle use currently. Cardiac: Faint heart tones, regular rhythm, normal S1-2, 2/6 apical holosystolic murmur which is nonradiating. Abdomen: benign. Extremities: no edema, pulses intact. Neurologic: normal affect and conversation, nonfocal. Results & Data Laboratory Results Troponins as per HPI. Hemoglobin 9.7. Sodium 134, otherwise normal electrolytes, BUN 19, creatinine 0.81. Diagnostic Findings ECGs as noted in HPI. Echocardiogram July 2022 showed normal LV systolic function with mildly dilated left atrium and moderate mitral annular calcification with trace mitral regurgitation. PG Care Time/CCT Total # of Minutes Spent Total Time Spent with Patient: Total time spent is greater than 50% in coordination of care (as documented) at patient's floor/unit and/or counseling patient: Coding Level of Care Code 43018 ER DEPT VISIT MOD LVL 4 Diagnoses Elevated troponin R77.8 SVT (supraventricular tachycardia) I47.1 S/P ablation of atrial flutter Z98.890; Z86.79 Chronic respiratory failure with hypoxia J96.11 DVT (deep venous thrombosis) I82.409 Small cell lung cancer C34.90
[2022-11-20] MEDS ORDERED: WARFARIN SOD 10 MG TAB PO ONE (12:26)
[2022-11-20 13:15] LABS: Partial Thromboplastin Ratio 2.5
[2022-11-20 13:30] LABS: Partial Thromboplastin Time 70.5 Seconds (21.0-31.0)
--- NOTE | 2022-11-20 13:34 | XCELERA ---
[id number] \\[id number]
[2022-11-20] MEDS: ACETAMINOPHEN 325 MG TAB PO PRN ×2 (15:02→21:32)
--- NOTE | 2022-11-20 15:08 | Hospitalist Progress Note ---
Date of Service November 20, 2022 Assessment & Plan (1) DVT (deep venous thrombosis): Plan: Left leg. She is now on a heparin drip. Eliquis has been discontinued and she is now on Coumadin. No evidence of pulmonary embolism on chest CTA (2) Acute hypercapnic respiratory failure: Plan: Hypercapnia has resolved and she is back to her baseline oxygen level. She was instructed to avoid high oxygen saturations because of the potential for CO2 retention. She understands (3) SVT (supraventricular tachycardia): Plan: Telemetry. Appreciate cardiology consultation and recommendations. Metoprolol has been started. She states that she took this in the past (4) Cardiomyopathy: Plan: Recent cardiac echo completed July of this year reveals normal ejection fraction. (5) Chronic obstructive pulmonary disease: Plan: Nebulizers as needed. No audible wheezing at this time (6) S/P ablation of atrial flutter: Plan: Eliquis has been switched to Coumadin therapy. Continue current medical management. Metoprolol has been restarted (7) Anticoagulant long-term use: Plan: Eliquis has been discontinued. She is now on Coumadin therapy. Maintain heparin drip until INR is therapeutic (8) Polymyalgia rheumatica: Plan: Prednisone dependent Plan Hopeful discharge to home this November 22 Admission and Anticipated Discharge Date Admission Date: November 19, 2022 Subjective Alert and oriented. No acute distress. Cardiology consultation and recommendations noted. Coumadin has been started and she remains on a heparin drip. Metoprolol has been also started for suspected SVT per cardiology recommendations. She is back on her usual oxygen settings. Hopefully she can go home later this week, preferably on Sunday per patient preference Review of Systems Review of Systems: Constitutional-no fever or chills ENT-no blurred vision, no double vision, no epistaxis, no sore throat Respiratory-no cough, no wheezing. Acute onset of shortness of breath while at home Cardiac-no palpitations, no chest pain, no syncope GI-no nausea, vomiting, diarrhea, melena, hematochezia -no urinary retention, no urinary incontinence, no dysuria, no hematuria Musculoskeletal-no joint pain, no muscle tenderness Skin-no bruising, no rashes, no pruritus Neuro-no isolated weakness, no paresthesia, no weakness Psych-no depression, no anxiety Physical Exam Physical Exam: General-alert and oriented x3, no fevers, no chills HEENT-head atraumatic and normocephalic, pupils equal and reactive to light, extraocular muscles intact Neck-no lymphadenopathy or thyromegaly, trachea midline Chest-diminished breath sounds bilaterally. No wheezing Cardiac-regular rate and rhythm, normal S1 and S2 Abdomen-normal bowel sounds, nontender, no hepatosplenomegaly Extremities-no cyanosis, clubbing, or edema Neuro-cranial nerves II through XII intact, motor and sensory function within normal limits, strength symmetrical , no focal deficits Psych-normal affect, normal mood Results & Data Results & Data Vital Signs (Past 12 Hours) Vital Signs Temp Pulse Pulse Resp BP Pulse Ox O2 Del Method 11/20/22 13:01 Nasal Cannula 11/20/22 12:25 94 11/20/22 11:05 36.8 C 87 18 87/56 L 93 Nasal Cannula 11/20/22 09:10 81 11/20/22 07:07 36.3 C L 84 18 100/65 100 CPAP 11/20/22 05:22 36.4 C L 84 20 107/72 100 BiPAP O2 Flow Rate 11/20/22 13:01 1 11/20/22 12:25 11/20/22 11:05 1 11/20/22 09:10 11/20/22 07:07 11/20/22 05:22 Laboratory Results 11/20/22 04:17 11/20/22 04:17 PG Care Time/CCT Total # of Minutes Spent Total Time Spent with Patient: Total time spent is greater than 50% in coordination of care (as documented) at patient's floor/unit and/or counseling patient: Coding Level of Care Code 82900 SUB INP/OBS CARE 3/50MIN Diagnoses DVT (deep venous thrombosis) I82.409 Acute hypercapnic respiratory failure J96.02 SVT (supraventricular tachycardia) I47.1 Cardiomyopathy I42.9 Chronic obstructive pulmonary disease J44.9 S/P ablation of atrial flutter Z98.890; Z86.79 Anticoagulant long-term use Z79.01 Polymyalgia rheumatica M35.3
[2022-11-20 20:16] LABS: Partial Thromboplastin Ratio 1.6
[2022-11-20] MEDS: HEPARIN SODIUM/DEXTROSE 25,000 UNITS/500 ML BAG IV SCH (20:44)
[2022-11-20] MEDS: SERTRALINE HCL 50 MG TABLET PO SCH (20:45)
[2022-11-20] MEDS: traZODone HCL 100 MG TAB PO SCH (20:45)
[2022-11-20] MEDS: OLANZapine 5 MG TABLET PO SCH (20:45)
[2022-11-20] MEDS: METOPROLOL TARTRATE 25 MG TAB PO SCH (22:42)
[2022-11-21 02:23] LABS: Base Excess ABG 2.9 mEq/L (-9-1.8); HCO3 ABG 28 mmol/L (19-24); Oxygen Saturation ABG 96.7 % (90-95); PCO2 ABG 43 mmHg (35-46); PO2 ABG 73 mmHg (80-95); pH ABG 7.42 (7.35-7.45)
[2022-11-21 02:26] LABS: Allen Test Pos (Pos)
[2022-11-21 06:49] LABS: Basophils # (auto) 0.02 K/uL (0-0.2); Basophils % (auto) 0.2 %; Eosinophils # (auto) 0.01 K/uL (0-0.50); Eosinophils % (auto) 0.1 %; Hemoglobin 9.1 g/dl (12.0-16.0); Immature Granulocytes # (auto) 0.11 K/uL (0.01-0.20); Lymphocytes # (auto) 0.61 K/uL (1.2-3.4); Lymphocytes % (auto) 5.5 %; Mean Corpuscular Hemoglobin 35.3 pg (25.0-34.0); Mean Corpuscular Hgb Conc 32.5 g/dL (32.0-36.0); Mean Corpuscular Volume 108.5 fL (80.0-100.0); Mean Platelet Volume 8.9 fL (9.4-12.4); Monocytes # (auto) 1.55 K/uL (0.11-0.59); Neutrophils % (auto) 79.2 %; Platelet Count 253 K/uL (130-400); RDW Coefficient of Variation 14.2 % (11.5-14.5); RDW Standard Deviation 56.6 fL (36.4-46.3); Red Blood Count 2.58 M/uL (4.20-5.40)
[2022-11-21] MEDS: HEPARIN 100 UNIT/ML 5ML FLUSH FLUSH PRN (07:06)
[2022-11-21 07:12] LABS: BUN Creatinine Ratio 29.3 (10-20); Calcium 8.6 mg/dl (8.6-10.3); Creatinine Clr Calc Pharmacy 55.7 ml/min; Est GFR (African American) 87.9 ml/min; Est GFR (Non-African American) 75.8 ml/min; Potassium 3.7 mmol/L (3.5-5.1)
[2022-11-21 07:31] LABS: INR 1.3 (0.9-1.1); Partial Thromboplastin Ratio 1.7; Prothrombin Time 14.3 Seconds (9.0-12.0)
--- NOTE | 2022-11-21 08:28 | XCELERA ---
[id number] \\[id number]\[id number]_[id number]
[2022-11-21] MEDS: FLUTICASONE FUROATE 200MCG 14 PUFFS/INHALER INH SCH (08:39)
[2022-11-21] MEDS: UMECLIDINIUM/VILANTEROL 62.5/25MCG 7 PUFFS/INHALER INH SCH (08:40)
[2022-11-21] MEDS: predniSONE 10 MG TABLET PO SCH (08:41)
[2022-11-21] MEDS: METOPROLOL TARTRATE 25 MG TAB PO SCH ×3 (08:41→21:27)
[2022-11-21] MEDS: DOCUSATE SODIUM 100 MG CAP PO SCH ×2 (08:41→21:28)
[2022-11-21] MEDS: PANTOprazole 40 MG TAB PO SCH (08:41)
[2022-11-21] MEDS: VIBEGRON 75 MG TAB PO SCH (08:41)
[2022-11-21] MEDS: POLYETHYLENE (MIRALAX) 17 GM PACK PO SCH (08:42)
[2022-11-21] MEDS ORDERED: WARFARIN SOD 7.5 MG TAB PO ONE (09:45)
[2022-11-21 10:53] LABS: Appearance Urine Clear (Clear); Bacteria Urine Automated Negative (Negative); Bilirubin Urine Negative (Negative); Blood Urine Negative (Negative); Cast Urine Automated 0 /lpf (0-5); Color Urine Yellow; Epithelial Cell Urine Auto >30 /lpf (0-5); Glucose Urine UA Negative (Negative); Ketones Urine Negative (Negative); Leukocyte Esterase Urine 1+ (Negative); Nitrite Urine Negative (Negative); Protein Urine Negative (Negative); RBC Urine Automated 0-4 /hpf (0-4); Urobilinogen Urine Negative (Negative); pH Urine 5.5 (4.5-7.5)
[2022-11-21] MEDS: TRIAMTERENE/HCTZ 37.5/25MG CAP PO SCH (12:33)
--- NOTE | 2022-11-21 14:32 | Hospitalist Progress Note ---
Date of Service November 21, 2022 Assessment & Plan (1) DVT (deep venous thrombosis): Plan: Left leg. She is now on a heparin drip. Eliquis has been discontinued and she is now on Coumadin. No evidence of pulmonary embolism on chest CTA. INR 1.3 today (2) Acute hypercapnic respiratory failure: Plan: Hypercapnia has resolved and she is back to her baseline oxygen level. She was instructed to avoid high oxygen saturations because of the potential for CO2 retention. She understands (3) SVT (supraventricular tachycardia): Plan: Telemetry. Appreciate cardiology consultation and recommendations. Metoprolol has been started. Dosage uptitrated today, November 21, per cardiology. She states that she took this in the past (4) Cardiomyopathy: Plan: Recent cardiac echo completed July of this year reveals normal ejection fraction. Current echo however reveals regional wall motion abnormalities with ejection fraction in the 25 to 30% range. Cardiology consultation appreciated. Medical management at this point (5) Chronic obstructive pulmonary disease: Plan: Nebulizers as needed. No audible wheezing at this time (6) S/P ablation of atrial flutter: Plan: Eliquis has been switched to Coumadin therapy. Continue current medical management. Metoprolol has been restarted (7) Anticoagulant long-term use: Plan: Eliquis has been discontinued. She is now on Coumadin therapy. Maintain heparin drip until INR is therapeutic (8) Polymyalgia rheumatica: Plan: Prednisone dependent Plan Hopeful discharge to home hopefully this November 22 Admission and Anticipated Discharge Date Admission Date: November 19, 2022 Subjective Apparently she was more short of breath last night and was ordered BiPAP which she did not tolerate very well. She is only requiring 1 L oxygen at this time. INR has risen to 1.3. Coumadin 7.5 mg today. Cardiology has increased metoprolol to 25 mg every 8 hours. She remains on a heparin drip until the INR has risen further. Hopefully she can go home tomorrow, November 22 Review of Systems Review of Systems: Constitutional-no fever or chills ENT-no blurred vision, no double vision, no epistaxis, no sore throat Respiratory-no cough, no wheezing. Acute onset of shortness of breath while at home Cardiac-no palpitations, no chest pain, no syncope GI-no nausea, vomiting, diarrhea, melena, hematochezia -no urinary retention, no urinary incontinence, no dysuria, no hematuria Musculoskeletal-no joint pain, no muscle tenderness Skin-no bruising, no rashes, no pruritus Neuro-no isolated weakness, no paresthesia, no weakness Psych-no depression, no anxiety Physical Exam Physical Exam: General-alert and oriented x3, no fevers, no chills HEENT-head atraumatic and normocephalic, pupils equal and reactive to light, extraocular muscles intact Neck-no lymphadenopathy or thyromegaly, trachea midline Chest-diminished breath sounds bilaterally. No wheezing Cardiac-regular rate and rhythm, normal S1 and S2 Abdomen-normal bowel sounds, nontender, no hepatosplenomegaly Extremities-no cyanosis, clubbing, or edema Neuro-cranial nerves II through XII intact, motor and sensory function within normal limits, strength symmetrical , no focal deficits Psych-normal affect, normal mood Results & Data Results & Data Vital Signs (Past 12 Hours) Vital Signs Temp Pulse Pulse Resp BP Pulse Ox Pulse Ox 11/21/22 13:58 98 H 20 97 11/21/22 11:30 36.6 C 92 H 21 109/67 93 11/21/22 10:25 94 11/21/22 07:45 36.8 C 97 H 20 93/58 L 98 11/21/22 08:00 96 H 11/21/22 08:00 11/21/22 07:22 102 H 26 H 98 11/21/22 03:08 36.7 C 92 H 20 95/60 L 95 Pulse Ox Pulse Ox O2 Del Method O2 Flow Rate O2 Flow Rate O2 Flow Rate O2 Flow Rate 11/21/22 13:58 Nasal Cannula 2 11/21/22 11:30 Nasal Cannula 1 11/21/22 10:25 95 90 1 1 1 11/21/22 07:45 Nasal Cannula 1 11/21/22 08:00 11/21/22 08:00 Nasal Cannula 1 11/21/22 07:22 11/21/22 03:08 BiPAP FiO2 11/21/22 13:58 11/21/22 11:30 11/21/22 10:25 11/21/22 07:45 11/21/22 08:00 11/21/22 08:00 11/21/22 07:22 28 11/21/22 03:08 Laboratory Results 11/21/22 06:19 11/21/22 06:19 PG Care Time/CCT Total # of Minutes Spent Total Time Spent with Patient: Total time spent is greater than 50% in coordination of care (as documented) at patient's floor/unit and/or counseling patient: Coding Level of Care Code 02789 SUB INP/OBS CARE 3/50MIN Diagnoses DVT (deep venous thrombosis) I82.409 Acute hypercapnic respiratory failure J96.02 SVT (supraventricular tachycardia) I47.1 Cardiomyopathy I42.9 Chronic obstructive pulmonary disease J44.9 S/P ablation of atrial flutter Z98.890; Z86.79 Anticoagulant long-term use Z79.01 Polymyalgia rheumatica M35.3
--- NOTE | 2022-11-21 14:33 | Cardiology Progress Note ---
Date of Service November 21, 2022 Assessment & Plan (1) Anteroapical myocardial infarction: Plan: Still suspicious for stress-induced cardiomyopathy, however given minimal improvement in wall motion abnormalities overnight must presume that she may have had an anteroapical infarct. Given her generally frail health status and metastatic cancer, she would not be a candidate for CABG and likely would not benefit from percutaneous coronary intervention since her chemotherapy is a relative contraindication to antiplatelet therapy. Therefore, in the absence of evidence for recurrent myocardial ischemia would recommend medical management with intervention only if she were to develop refractory anginal symptoms. Continue beta-joellen therapy, this will cover for both stress-induced cardiomyopathy and post infarct status. Will increase metoprolol to tartrate dose from 25 mg twice daily to 25 mg every 8 hours given her brief recurrences of SVT. Addition of aspirin will increase bleeding risk, in particular while she is on heparin and warfarin loading, therefore would not recommend aspirin at this time. Given mild dyspnea overnight and mild hypervolemia on exam, will initiate triamterene/HCTZ 37.5/25 daily for gentle diuresis. (2) SVT (supraventricular tachycardia): Plan: Brief recurrences, has noted metoprolol was increased. (3) S/P ablation of atrial flutter: (4) Chronic respiratory failure with hypoxia: Plan: Compensated on oxygen. (5) DVT (deep venous thrombosis): Plan: Agree with transition from apixaban to warfarin. (6) Small cell lung cancer: Plan: Presence of metastatic disease important to recognize as context for treatment of cardiac issues. Conservative/medical management planned at this point. Admission and Anticipated Discharge Date Admission Date: November 19, 2022 Subjective She did note some transient dyspnea overnight but feels better this morning. No chest pain at any time. No dyspnea currently. No subjective palpitations, presyncope, or syncope. Telemetry showed sinus rhythm with 2 brief (68 beat) runs of supraventricular tachycardia at 140 bpm. Physical Exam Physical Exam: Frail/chronically ill-appearing but not acutely distressed. BP low normal. Pulse 98 bpm and regular. Skin: no ecchymoses or generalized lesions. HEENT: unremarkable. Neck: JVP one quarter of the way to angle of the jaw at 90 degrees, no carotid bruits. Lungs: Markedly decreased breath sounds bilaterally with faint expiratory wheezing and prolonged expiratory phase, no obvious crackles and no accessory muscle use currently. Cardiac: Faint heart tones, regular rhythm, normal S1-2, 2/6 apical holosystolic murmur which is nonradiating. Abdomen: benign. Extremities: no edema, pulses intact. Neurologic: normal affect and conversation, nonfocal. Results & Data Laboratory Results Sodium 133, otherwise normal electrolytes, BUN 22, creatinine 0.75. Diagnostic Findings Follow-up echocardiogram today showed minimal improvement in LV systolic function/apical wall motion abnormality. PG Care Time/CCT Total # of Minutes Spent Total Time Spent with Patient: Total time spent is greater than 50% in coordination of care (as documented) at patient's floor/unit and/or counseling patient: Coding Level of Care Code 04531 SUB INP/OBS CARE 3/50MIN Diagnoses Anteroapical myocardial infarction I21.09 SVT (supraventricular tachycardia) I47.1 S/P ablation of atrial flutter Z98.890; Z86.79 Chronic respiratory failure with hypoxia J96.11 DVT (deep venous thrombosis) I82.409 Small cell lung cancer C34.90
[2022-11-21] MEDS: HEPARIN SODIUM/DEXTROSE 25,000 UNITS/500 ML BAG IV SCH (21:24)
[2022-11-21] MEDS: MELATONIN 3 MG TAB PO PRN (21:26)
[2022-11-21] MEDS: SERTRALINE HCL 50 MG TABLET PO SCH (21:26)
[2022-11-21] MEDS: traZODone HCL 100 MG TAB PO SCH (21:26)
[2022-11-21] MEDS: OLANZapine 5 MG TABLET PO SCH (21:27)
[2022-11-22] MEDS: HEPARIN 100 UNIT/ML 5ML FLUSH FLUSH PRN (05:48)
[2022-11-22] MEDS: METOPROLOL TARTRATE 25 MG TAB PO SCH (05:54)
[2022-11-22] MEDS: ACETAMINOPHEN 325 MG TAB PO PRN ×2 (06:25→10:57)
[2022-11-22 06:58] LABS: Basophils # (auto) 0.04 K/uL (0-0.2); Basophils % (auto) 0.5 %; Eosinophils # (auto) 0.05 K/uL (0-0.50); Eosinophils % (auto) 0.6 %; Hematocrit (blood only) 28.8 % (37.0-47.0); Hemoglobin 9.4 g/dl (12.0-16.0); Immature Granulocytes # (auto) 0.07 K/uL (0.01-0.20); Immature Granulocytes % (auto) 0.9 %; Lymphocytes # (auto) 0.74 K/uL (1.2-3.4); Lymphocytes % (auto) 9.3 %; Mean Corpuscular Hemoglobin 35.6 pg (25.0-34.0); Mean Corpuscular Hgb Conc 32.6 g/dL (32.0-36.0); Mean Corpuscular Volume 109.1 fL (80.0-100.0); Mean Platelet Volume 9.2 fL (9.4-12.4); Monocytes # (auto) 1.28 K/uL (0.11-0.59); Monocytes % (auto) 16.1 %; Neutrophils # (auto) 5.75 K/uL (1.40-6.50); Neutrophils % (auto) 72.6 %; Platelet Count 280 K/uL (130-400); RDW Coefficient of Variation 14.4 % (11.5-14.5); RDW Standard Deviation 57.2 fL (36.4-46.3); Red Blood Count 2.64 M/uL (4.20-5.40); White Blood Count 7.93 K/ul (4.8-10.8)
[2022-11-22 07:18] LABS: BUN Creatinine Ratio 21.4 (10-20); Calcium 8.8 mg/dl (8.6-10.3); Creatinine Clr Calc Pharmacy 59.3 ml/min; Est GFR (African American) 95.5 ml/min; Est GFR (Non-African American) 82.4 ml/min; Potassium 3.8 mmol/L (3.5-5.1)
[2022-11-22 07:56] LABS: INR 2.3 (0.9-1.1); Prothrombin Time 23.5 Seconds (9.0-12.0)
[2022-11-22] MEDS: UMECLIDINIUM/VILANTEROL 62.5/25MCG 7 PUFFS/INHALER INH SCH (09:10)
[2022-11-22] MEDS: VIBEGRON 75 MG TAB PO SCH (09:10)
[2022-11-22] MEDS: DOCUSATE SODIUM 100 MG CAP PO SCH (09:10)
[2022-11-22] MEDS: POLYETHYLENE (MIRALAX) 17 GM PACK PO SCH (09:10)
[2022-11-22] MEDS: FLUTICASONE FUROATE 200MCG 14 PUFFS/INHALER INH SCH (09:10)
[2022-11-22] MEDS: PANTOprazole 40 MG TAB PO SCH (09:10)
[2022-11-22] MEDS: predniSONE 10 MG TABLET PO SCH (09:10)
[2022-11-22] MEDS: TRIAMTERENE/HCTZ 37.5/25MG CAP PO SCH (09:10)
--- NOTE | 2022-11-22 11:02 | Discharge Summary ---
Date of Service November 22, 2022 Admission HPI Per Admitting Provider Patient is a 77-year-old female with a past medical history of paroxysmal atrial flutter, COPD, chronic hypoxemic respiratory failure on 2 L nasal cannula at home, polymyalgia rheumatica, small cell lung cancer with mets to liver, and type 2 diabetes who presents to the hospital for evaluation of shortness of breath. Majority of history is obtained from the daughter who is in the room at the time of interview and exam. Patient was eating dinner at approximately 1700 hrs. when she had sudden onset shortness of breath. Daughter states that she did not have any chest pain at the time. They turned the patient's oxygen up from 2 L up to 5 L and continued to have shortness of breath. It was for this reason that EMS was called. Patient has a history of small cell lung cancer for which she sees the cancer center. This was diagnosed in October 2021. Currently on immunotherapy and sees the cancer center every few weeks for treatment. Recently found to have a metastatic lesion in the liver confirmed by biopsy on 09/21/2022. Patient is on Eliquis for DVT prophylaxis in the setting of cancer. No missed medications as far as the daughter can tell. Discussed with the daughter but the patient's wishes are in terms of CODE STATUS. Daughter explains that she wants the patient to be full code stating that "what is the point of going as far with cancer treatment and not doing everything you can to stay alive." Discussed with the daughter the low likelihood of survivability and increased likelihood of mortality after discharge if we were even able to achieve ROSC or improve breathing after intubation. Patients daughter would still like to move forward with a full CODE STATUS. ED course: Patient evaluated by provider. Labs were significant for an elevated white blood cell count of 18.21, hemoglobin of 10.9, ABG with a pH of 7.23 PCO2 of 69, PO2 of 183, and HCO3 of 29. Glucose at 223, alkaline phosphatase elevated at 191. High-sensitivity troponin elevated at 34.6. Bilateral venous Dopplers of the lower extremities were ordered which did show DVT in the left lower extremity. At that time, a heparin bolus and drip was started for concern of pulmonary embolism. It was at this time that the hospitalist service was consulted for admission. A chest CTA was ordered which is pending at the time of writing this note. Principal Diagnosis PSVT, acute on chronic hypercarbic respiratory failure, left lower extremity DVT without PE Discharge Exam General-alert and oriented x3, no fevers, no chills HEENT-head atraumatic and normocephalic, pupils equal and reactive to light, extraocular muscles intact Neck-no lymphadenopathy or thyromegaly, trachea midline Chest-diminished breath sounds bilaterally. No wheezing Cardiac-regular rate and rhythm, normal S1 and S2 Abdomen-normal bowel sounds, nontender, no hepatosplenomegaly Extremities-no cyanosis, clubbing, or edema Neuro-cranial nerves II through XII intact, motor and sensory function within normal limits, strength symmetrical , no focal deficits Psych-normal affect, normal mood Discharge Data Allergies Allergy/AdvReac Type Severity Reaction Status Date / Time castor oil Allergy Severe "TAXANES" Verified 11/19/22 18:55 CAUSE DYSPNEA, RASH, ELEVATED BP docetaxel [From Taxotere] Allergy Severe "TAXANES" Verified 11/19/22 18:55 CAUSE DYSPNEA, RASH, ELEVATED BP paclitaxel Allergy Severe "TAXANES" Verified 11/19/22 18:55 CAUSE DYSPNEA, RASH, ELEVATED BP trimethoprim [From Bactrim] Allergy Severe Anaphylaxis Verified 11/19/22 18:55 Iodinated Contrast Media Allergy Intermediate HIVES/ITCHI Verified 11/19/22 18:55 NG nitrofurantoin Allergy Intermediate CHEST Verified 11/19/22 18:55 PAIN, DYSPNEA Sulfa (Sulfonamide Allergy Intermediate HIVES, Verified 11/19/22 18:55 Antibiotics) ITCHINESS, SHORTNESS OF BREATH phenazopyridine AdvReac Intermediate N/V Verified 11/19/22 18:55 codeine AdvReac COLD Verified 11/19/22 18:55 SWEAT, THINGS START SPINNING, NAUSEA Consultations 11/19/22 19:25 ED Decision to Admit Stat 11/20/22 02:21 Consult Cardiology Routine Ordered Studies 11/19/22 18:30 US venous doppler LE BI Stat 11/19/22 20:10 CT angio chest PE protocol Stat Hospital Course (1) DVT (deep venous thrombosis): Left leg. She was treated while hospitalized with a heparin drip. Eliquis has been converted to Coumadin. No evidence of pulmonary embolism on chest CTA. INR is now therapeutic (2) Acute hypercapnic respiratory failure: Hypercapnia has resolved and she is back to her baseline oxygen level. She was instructed to avoid high oxygen saturations because of the potential for CO2 retention. She understands (3) SVT (supraventricular tachycardia): Telemetry. Appreciate cardiology consultation and recommendations. Metoprolol has been started. Now controlled. Dosage uptitrated on November 21, per cardiology. She states that she took this in the past (4) Cardiomyopathy: Recent cardiac echo completed July of this year reveals normal ejection fraction. Current echo however reveals regional wall motion abnormalities with ejection fraction in the 25 to 30% range. Cardiology consultation appreciated. Medical management at this point. Planned chemotherapy will be postponed for now (5) Chronic obstructive pulmonary disease: Nebulizers as needed. No audible wheezing at this time (6) S/P ablation of atrial flutter: Eliquis has been switched to Coumadin therapy. Continue current medical management. Metoprolol has been restarted (7) Anticoagulant long-term use: Eliquis has been discontinued. She is now on Coumadin therapy. (8) Polymyalgia rheumatica: Prednisone dependent Plan Home today, November 22 Total Time Total Time Spent Total Time Spent (In Minutes): 45 minutes Discharge Plan Discharge Items Patient Disposition: Home - Home Health Services Reason For Visit: DYSPNEA Discharge Diagnosis: PSVT, acute on chronic hypoxic/hypercarbic respiratory failure, left lower extremity DVT without PE Activity: Resume your previous activity Non-emergency contact: Primary Care Provider, Electrical/Instrument Technician and Oncologist Call non-emergency contact if: you have any medication questions and your symptoms worsen Follow-up/Referrals: Genoveva Stallings PA-C [Primary Care Provider] - Diet: Carb Consistent or DM2 and Heart Healthy Addtl Attending Provider Instructions: Coumadin replaces Eliquis. Coumadin should be taken in the late afternoon or at suppertime. Coumadin management will be done by the Coumadin clinic. Further immunotherapy will be postponed until a later date. Take Dyazide water pill every day. Pending Studies at Discharge: No Stand-Alone Forms: My [employer], Smoking Cessation Medications and DC Order Prescriptions: New warfarin [Jantoven] 2.5 mg Tablet 2.5 mg PO DAILY@1600 Qty: 15 0RF triamterene-hydrochlorothiazid 37.5-25 mg Capsule 1 cap PO QAM Qty: 30 0RF metoprolol tartrate 25 mg Tablet 25 mg PO TID Qty: 100 0RF Continued cholecalciferol (vitamin D3) 25 mcg (1,000 unit) capsule 25 mcg PO DAILY mecobalamin (vitamin B12) 1,000 mcg tablet,disintegrating 2,500 mcg sublingual DAILY Rx Instructions: place tablet under tongue and allow to dissolve for at least30 secs before swallowing sennosides [Senokot] 8.6 mg tablet 8.6 mg PO DAILY PRN (Reason: Constipation) melatonin 3 mg capsule 10 mg PO HS PRN (Reason: Sleep) (DME) nebulizers Misc See Rx Instructions .Route Qty: 1 0RF Rx Instructions: nebulizer and nebulizer kits/supplies ANNALISA-99 Gemtesa 75 mg tablet 75 mg PO DAILY Qty: 90 3RF folic acid 1 mg tablet 1 mg PO QPM Qty: 30 3RF Breztri Aerosphere 160-9-4.8 mcg/actuation HFA aerosol inhaler 2 inh inhalation BID Qty: 10.7 2RF olanzapine 5 mg tablet 5 mg PO HS 90 Days Qty: 90 3RF prednisone 10 mg tablet 10 mg PO DAILY 90 Days Qty: 90 3RF trazodone 50 mg tablet 100 mg PO QPM 90 Days Qty: 180 3RF acetaminophen [Tylenol Arthritis Pain] 650 mg tablet extended release 1,950 mg PO Q12H polyethylene glycol 3350 [Miralax] 17 gram/dose powder 17 g PO DAILY Qty: 238 0RF docusate sodium [Colace] 100 mg capsule 100 mg PO BID Qty: 60 0RF omeprazole 40 mg capsule,delayed release(DR/EC) 40 mg PO QAM Caltrate 600-D Plus Minerals 600 mg calcium- 800 unit-50 mg Tablet 1 tab PO BID Qty: 60 0RF Rx Instructions: OTC furosemide [Lasix] 20 mg tablet 20 mg PO QAM PRN (Reason: leg swelling) Qty: 30 0RF sertraline 25 mg tablet 25 mg PO HS ipratropium-albuterol 0.5 mg-3 mg(2.5 mg base)/3 mL solution for nebulization 3 ml inhalation BID PRN (Reason: wheezing) Discontinued Eliquis 5 mg tablet 5 mg PO BID Qty: 180 1RF Discharge Orders: Discharge Order (Routine); Ordered 11/22/22 Ordered By: Stewart Yanez Admission Data Admit Date/Time: 11/19/22 23:14 Attending Provider: Stewart Yanez Admit Provider: Anderson Smith Primary Care Provider: Genoveva Stallings Other Providers: Ousmane Fernando ; Sb Das Coding Level of Care Code 53084 INP/OBS DISCH >30 MIN Diagnoses DVT (deep venous thrombosis) I82.409 Acute hypercapnic respiratory failure J96.02 SVT (supraventricular tachycardia) I47.1 Cardiomyopathy I42.9 Chronic obstructive pulmonary disease J44.9 S/P ablation of atrial flutter Z98.890; Z86.79 Anticoagulant long-term use Z79.01 Polymyalgia rheumatica M35.3
[2022-11-22 11:21] VITALS: PULSE 76; TEMP 98.1; O2SAT 94
[2022-11-22 11:26] VITALS: BP 94/57
--- NOTE | 2022-11-22 11:43 | Cardiology Progress Note ---
Date of Service November 22, 2022 Assessment & Plan (1) Anteroapical myocardial infarction: Plan: Discussed with patient and family, shared decision making suggests conservative medical management given her generally frail health status and metastatic cancer. Given recent infarct, would delay immunotherapy for several weeks, will reassess LV systolic function/wall motion prior to next immunotherapy session. If wall motion is recovering (suggesting stress-induced cardiomyopathy), may be reasonable to proceed with immunotherapy on beta-joellen. If wall motion remains impaired, may need to defer immunotherapy for a longer period of time. Given mild nocturnal dyspnea and mild hypervolemia on exam, could initiate triamterene/HCTZ 37.5/25 Q2D for gentle diuresis. (2) SVT (supraventricular tachycardia): Plan: No further SVT, continue metoprolol but could consolidate metoprolol tartrate 25 mg every 8 hours by changing to metoprolol succinate 50 mg every morning/25 mg every evening. (3) S/P ablation of atrial flutter: (4) Chronic respiratory failure with hypoxia: (5) DVT (deep venous thrombosis): Plan: Transition from apixaban to warfarin, INR therapeutic at 2.3 today. We will arrange for her to be followed up in our office for anticoagulation monitoring. Would recommend INR goal of 2.53.5 given her apixaban failure (development of DVT on full dose apixaban). (6) Small cell lung cancer: Plan Cardiology follow-up, family asked if I would be willing to follow-up. I can see her in the office next week Admission and Anticipated Discharge Date Admission Date: November 19, 2022 Subjective No new symptoms, some brief dyspnea overnight but less than previously. No chest pain at any time. No lightheadedness or subjective palpitations. Telemetry showed sinus rhythm in the 70 to 80 bpm range with PACs, no SVT over the past 24 hours. Physical Exam Physical Exam: Frail/chronically ill-appearing but not acutely distressed. BP mildly hypotensive. Pulse 76 bpm and regular with ectopy. Skin: Few ecchymoses, no generalized lesions. HEENT: unremarkable. Neck: JVP one quarter of the way to angle of the jaw at 90 degrees, no carotid bruits. Lungs: Markedly decreased breath sounds bilaterally with faint expiratory wheezing and prolonged expiratory phase, no obvious crackles and no accessory muscle use currently. Cardiac: Faint heart tones, regular rhythm, normal S1-2, 2/6 apical holosystolic murmur which is nonradiating. Abdomen: benign. Extremities: no edema, pulses intact. Neurologic: normal affect and conversation, nonfocal. Results & Data Laboratory Results Normal electrolytes, BUN 15, creatinine 0.7. PG Care Time/CCT Total # of Minutes Spent Total Time Spent with Patient: Total time spent is greater than 50% in coordination of care (as documented) at patient's floor/unit and/or counseling patient: Coding Level of Care Code 59745 SUB INP/OBS CARE 3/50MIN Diagnoses Anteroapical myocardial infarction I21.09 SVT (supraventricular tachycardia) I47.1 S/P ablation of atrial flutter Z98.890; Z86.79 Chronic respiratory failure with hypoxia J96.11 DVT (deep venous thrombosis) I82.409 Small cell lung cancer C34.90
[2022-11-22] MEDS ORDERED: WARFARIN SOD 2.5 MG TAB PO SCH (16:00)
--- NOTE | 2022-11-27 20:22 | Billing Data ---
Date of Service November 27, 2022 Coding Level of Care Code 31273 INT INP/OBS CARE
== END 2022-11-22 12:45 | disposition home health service (06) | DRG 189 ==
LOC: ED 17:42 → 2S 23:14 → SUATTDRO 23:14 → 2S 11-20 00:23

== ENCOUNTER 2023-02-28 05:00 | Inpatient (IN) ==
[2023-02-28] MEDS ORDERED: ALBUT/IPRATROP 3MG/0.5MG NEB 3 ML VIAL INH STA (05:11)
[2023-02-28] MEDS ORDERED: ALBUT/IPRATROP 3MG/0.5MG NEB 3 ML VIAL NEB STA (05:19)
--- NOTE | 2023-02-28 05:22 | Emergency Department Note ---
Impression & Plan Shortness of breath, Non-ST elevation TN (NSTEMI), Sepsis, Acute hypoxic respiratory failure, Hypomagnesemia ED Provider Note HISTORY OF PRESENT ILLNESS: Patient is a 77-year-old female presenting with shortness of breath. Patient reports that she woke at 1 AM feeling very short of breath. She states that she uses 1 L nasal cannula at baseline. Reports that she felt like she could not catch her breath so she called 911. Per EMS, the patient had saturations of 75 to 80% on room air at home. Patient does report a history of blood clots. She is on Coumadin. Denies any chest pain with her shortness of breath. She denies any recent antibiotic use, but reports she is chronically on prednisone. Denies any significant recent weight gain. Denies any recent sick contact exposure. ROS: as above PHYSICAL EXAM: Constitutional: Patient appears in no acute distress. HENT: Head: Normocephalic and atraumatic. Eyes: EOMI, PERRL Mouth/Throat: Mucous membranes moist. Neck: Trachea midline. Neck supple. Cardiovascular: RRR, No murmurs, rubs or gallops. Intact distal pulses. Pulmonary/Chest: No respiratory distress. Breath sounds clear and equal bilaterally. Audible wheezes bilaterally. Patient is tachypneic. Abdominal: Abdomen soft, no tenderness, rebound or guarding. Musculoskeletal: No tenderness or deformity noted. +1 edema of bilateral lower extremities Skin: Warm and dry. No rash, erythema, pallor or cyanosis Psychiatric: Appropriate mood and affect for situation. Neurological: Alert and keenly responsive. CN II-XII grossly intact, moving all extremities equally and fully. MDM: - Vitals signs showed hypotension and tachypnea. Patient is hypoxic on her baseline 1 L nasal cannula. - History obtained via patient. Patient presents with shortness of breath. Patient reports that she woke at 1 AM feeling very short of breath. She normally wears 1 L nasal cannula at baseline. She felt like she could not catch her breath so she called 911. Patient was found to be hypoxic on room air at home by EMS. She does report a history of blood clots and is on Coumadin. Denies any chest pain. Denies any recent antibiotic use. Denies any recent sick contact exposure. - Chronic conditions affecting care: COPD; DM-2; DVT; breast cancer; small cell lung cancer - Differential diagnoses include, but are not limited to: Congestive heart failure; acute coronary syndrome; COPD/asthma exacerbation; pulmonary edema; pulmonary embolism; pneumonia; pneumothorax; viral syndrome - Order placed for continuous cardiac monitoring. At this time, monitor showed rate of 90 bpm with normal sinus rhythm, per my interpretation. - External medical records reviewed. EMS run sheet reviewed. Patient was given no medications prehospital. She was hypoxic on room air to 75%. She was placed on 4 L nasal cannula. - EKG reviewed by myself showed normal sinus rhythm. Rate 84 bpm. QTc 482. No acute ischemic changes. Noted to have some PVCs. Poor baseline secondary to artifact. - Laboratory workup interpreted by myself showed leukocytosis (WBC 13.72) with left shift; chronic anemia; thrombocytopenia (plt 82); therapeutic INR; stable electrolytes other than hypomagnesemia (Mg 1.4); elevated troponin (28.6); normal lactate - CXR negative for pneumonia, per my interpretation. - Blood cultures obtained. -Based on actual body weight, patient sepsis fluid volume resuscitation is 2139 mL. Patient given 2.5L NS in ER for sepsis fluid resuscitation. IV vancomycin and cefepime ordered for empiric antibiotic coverage. - VBG showed respiratory acidosis (pH 7.32; pCO2 57) - Family does report patient recently received Neulasta injection. - Discussion was had with nephrology social worker about patient's case and need for adm ission - Hospitalist consulted for admission - [facility] I provided 34 minutes of critical care time to this patient's care outside of billable procedures. ASSESSMENT AND PLAN: Diagnosis: shortness of breath; hypomagnesemia; sepsis; NSTEMI; acute hypoxic respiratory failure Plan: admit Past Med/Surg History Medical History Anemia Anticoagulant long-term use Anxiety Asthma (04/25/12) Atrial flutter with rapid ventricular response Breast cancer Cardiomyopathy Chronic dyspnea Chronic hypoxemic respiratory failure Chronic obstructive pulmonary disease Chronic respiratory failure with hypoxia Compression fracture of L1 vertebra (08/15/21) Diabetes mellitus, type 2 DVT (deep venous thrombosis) (10/2022) Endometrial thickening on ultrasound Ex-smoker Excessive cerumen in both ear canals GERD (gastroesophageal reflux disease) Hearing deficit Hemoptysis History of breast cancer History of diverticulitis History of liver disease Hx of bladder cancer Hypomagnesemia Hyponatremia Insomnia Left rib fracture (2017) LFTs abnormal Liver abscess Liver lesion Lower extremity edema Malignant neoplasm of lung Migraine Osteoporosis Pancytopenia due to antineoplastic chemotherapy Paroxysmal atrial fibrillation Pneumonia Polymyalgia rheumatica Port-A-Cath in place Small cell lung cancer Small cell lung cancer Tremor Ureteral tumor Urinary incontinence UTI (urinary tract infection) Vertebral fracture Surgical History H/O cystoscopy History of appendectomy History of arthroscopy History of breast biopsy History of bronchoscopy History of cholecystectomy History of colonoscopy History of elbow surgery History of lumpectomy of right breast History of surgery History of surgery Nausea and vomiting after administration of anesthetic agent S/P ablation of atrial flutter Family History Other Adopted Family history unknown Social History Smoking Status: Former smoker Tobacco Type: Cigarettes Cigarettes Per Day: Less than 1/2 PPD now;Smoked 50+yrs;; Second Hand Exposure: No; Do You Dip or Chew Tobacco: No; Hx Alcohol Use: No Hx Substance Use: No Preferred Language: Faroese Communication Ability: Effective Communication Tools: Other Visual Impairment: No Limitations Hearing Ability: Hard of Hearing 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 Beliefs That Will Affect Care: None marital status: Single Current Living Situation: Alone Current Living Situation Comment: Lives with a roomate current occupational status: retired Feels Safe at Home: Yes Childhood Exposure to Second-Hand Smoke: Yes Diet: regular caffeine: No during the past year weight has: remained stable Dental Care, Regularly: Yes Physical Activity Frequency: 1-2 Times per Week Seatbelt Use: always Sunscreen Use: Yes Assistive Devices: Bedside Commode, Hospital Bed, Oxygen - Continuous, Walker and Wheelchair Allergies Allergies Allergy/AdvReac Type Severity Reaction Status Date / Time castor oil Allergy Severe "TAXANES" Verified 02/27/23 15:20 CAUSE DYSPNEA, RASH, ELEVATED BP docetaxel [From Taxotere] Allergy Severe "TAXANES" Verified 02/27/23 15:20 CAUSE DYSPNEA, RASH, ELEVATED BP paclitaxel Allergy Severe "TAXANES" Verified 02/27/23 15:20 CAUSE DYSPNEA, RASH, ELEVATED BP trimethoprim [From Bactrim] Allergy Severe Anaphylaxis Verified 02/27/23 15:20 Iodinated Contrast Media Allergy Intermediate HIVES/ITCHI Verified 02/27/23 15:20 NG nitrofurantoin Allergy Intermediate CHEST Verified 02/27/23 15:20 PAIN, DYSPNEA Sulfa (Sulfonamide Allergy Intermediate HIVES, Verified 02/27/23 15:20 Antibiotics) ITCHINESS, SHORTNESS OF BREATH codeine AdvReac Intermediate COLD Verified 02/27/23 15:20 SWEAT, THINGS START SPINNING, NAUSEA phenazopyridine AdvReac Intermediate N/V Verified 02/27/23 15:20 Home Meds Home Medications Medication Instructions Recorded Confirmed cholecalciferol (vitamin D3) 25 25 mcg PO DAILY 12/01/21 01/22/23 mcg (1,000 unit) capsule sennosides 8.6 mg tablet (Senokot) 8.6 mg PO DAILY PRN Constipation 06/01/22 01/22/23 melatonin 3 mg capsule 10 mg PO HS 07/12/22 01/22/23 mecobalamin (vitamin B12) 1,000 1,000 mcg sublingual DAILY 10/26/22 01/22/23 mcg disintegrating tablet,sublingual docusate sodium 100 mg capsule 100 mg PO BID PRN Constipation 01/03/23 01/22/23 (Colace) polyethylene glycol 3350 17 17 g PO DAILY PRN Constipation 01/03/23 01/22/23 gram/dose oral powder (Miralax) olanzapine 5 mg tablet 5 mg PO QPM 01/10/23 01/22/23 trazodone 50 mg tablet 100 mg PO HS 01/10/23 01/22/23 ondansetron HCl 8 mg tablet 8 mg PO Q8H PRN Nausea 01/22/23 01/22/23 oxycodone 5 mg tablet 5 mg PO Q8H PRN Pain 01/22/23 01/22/23 sertraline 50 mg tablet 50 mg PO .COMPLEX 02/27/23 Previous Rx's Medication Instructions Recorded nebulizers #1 ea 12/05/21 calcium 600 mg-D3 800 unit-mag11 1 tab PO BID #60 tabs 04/27/22 50 dv-spob-tduvoz-beulah-s.borat tablet (Caltrate 600-D Plus Minerals) vibegron 75 mg tablet (Gemtesa) 75 mg PO DAILY #90 tabs 07/20/22 prednisone 10 mg tablet 10 mg PO DAILY 90 days #90 tabs 09/27/22 metoprolol succinate 50 mg 50 mg PO DAILY #90 tabs 11/28/22 tablet,extended release 24 hr budesonide 160 mcg-glycopyr 9 2 inh inhalation BID #10.7 grams 12/11/22 mcg-formot 4.8 mcg/actuation HFA inhaler (Breztri Aerosphere) folic acid 1 mg tablet 1 mg PO QPM #30 tabs 12/11/22 ipratropium 0.5 mg-albuterol 3 mg 3 ml inhalation BID PRN wheezing 12/11/22 (2.5 mg base)/3 mL nebulization #360 mL soln pantoprazole 40 mg tablet,delayed 40 mg PO DAILY #30 tabs 01/06/23 release acetaminophen 500 mg tablet 1,000 mg PO TID #30 tabs 01/14/23 (Tylenol Extra Strength) lidocaine 5 % topical patch 1 patch transdermal Q24H #30 ea 01/14/23 nitrofurantoin 100 mg PO BID 5 days #10 caps 01/22/23 monohydrate/macrocrystals 100 mg capsule (Macrobid) warfarin 2.5 mg tablet (Jantoven) 2.5 - 5 mg PO DAILY #100 tabs 02/12/23 Results & Data (ED) Vital Signs Vital Signs - 24 hr 02/28/23 05:11 02/28/23 05:17 02/28/23 05:27 Temperature 37 C Temperature Source Oral Pulse Rate 85 88 Respiratory Rate 30 H 33 H Blood Pressure 95/46 L Blood Pressure Mean 62 Pulse Oximetry 98 97 89 L Oxygen Delivery Method Nasal Cannula Nasal Cannula Nasal Cannula Oxygen Flow Rate 4 4 1 Sepsis Recent Fever Within 48 Hours No Sepsis New/Unexplained Change in Mental Status No Sepsis Action Taken by Nursing No Action Required 02/28/23 05:08 Temperature Temperature Source Pulse Rate 84 Respiratory Rate Blood Pressure Blood Pressure Mean Pulse Oximetry Oxygen Delivery Method Oxygen Flow Rate Sepsis Recent Fever Within 48 Hours Sepsis New/Unexplained Change in Mental Status Sepsis Action Taken by Nursing Laboratory Data 02/28/23 05:20 02/28/23 05:20 Lab Results 02/28/23 02/28/23 02/28/23 Range/Units 05:20 05:20 05:20 WBC 13.72 H (4.8-10.8) K/ul RBC 2.56 L (4.20-5.40) M/uL Hgb 8.6 L (12.0-16.0) g/dl Hct 27.2 L (37.0-47.0) % MCV 106.3 H (80.0-100.0) fL MCH 33.6 (25.0-34.0) pg MCHC 31.6 L (32.0-36.0) g/dL RDW Std Deviation 60.6 H (36.4-46.3) fL RDW Coeff of Atul 15.8 H (11.5-14.5) % Plt Count 82 L (130-400) K/uL MPV 10.6 (9.4-12.4) fL Immature Gran % (Auto) 6.9 % Neut % (Auto) 71.6 % Lymph % (Auto) 3.1 % [place] % (Auto) 17.6 % Eos % (Auto) 0.0 % Baso % (Auto) 0.8 % Neut # (Auto) 9.82 H (1.40-6.50) K/uL Lymph # (Auto) 0.43 L (1.20-3.40) K/uL [place] # (Auto) 2.42 H (0.11-0.59) K/uL Eos # (Auto) 0.00 (0.00-0.50) K/uL Baso # (Auto) 0.11 (0.00-0.20) K/uL Immature Gran # (Auto) 0.94 H (0.01-0.20) K/uL Toxic Granulation 1+ Dohle Bodies 1+ Polychromasia 1+ PT 24.1 H (9.0-12.0) Seconds INR 2.3 H (0.9-1.1) VBG pH (7.36-7.41) VBG pCO2 (38-50) mmHg VBG pO2 mmHg VBG HCO3 mmol/L VBG O2 Saturation % VBG Base Excess mEq/L Sodium 137 (136-145) mmol/L Potassium 4.0 (3.5-5.1) mmol/L Chloride 103 (98-107) mmol/L Carbon Dioxide 30 (21-32) mmol/L Anion Gap 4 (3-11) BUN 16 (6-23) mg/dl Creatinine 1.09 (0.6-1.2) mg/dl Est Cr Clr Drug Dosing 36.9 ml/min Est GFR ( Amer) 55.9 ml/min Est GFR (Non-Af Amer) 48.2 ml/min BUN/Creatinine Ratio 14.7 (10-20) Glucose 128 H (70-99(Fasting)) mg/dl Lactate (0.4-2.0) mmol/L Calcium 8.7 (8.6-10.3) mg/dl Magnesium 1.4 L (1.7-2.4) mg/dl Total Bilirubin 0.5 (0.2-1.0) mg/dl AST 16 (13-39) U/L ALT 13 (7-52) U/L Alkaline Phosphatase 116 H (34-104) U/L Troponin I High Sens 28.6 H (0-14) pg/ml Total Protein 5.6 L (6.0-8.3) gm/dl Albumin 3.2 L (3.4-5.0) gm/dl Globulin 2.4 L (2.5-4.0) gm/dl Albumin/Globulin Ratio 1.3 (0.9-2) Adenovirus (PCR) (NotDetected) B. pertussis DNA (PCR) (NotDetected) B.parapertussis DNA PCR (NotDetected) C. pneumoniae DNA (PCR) (NotDetected) Coronavirus OC43 (PCR) (NotDetected) Coronavirus HKU1 (PCR) (NotDetected) Coronavirus 229E (PCR) (NotDetected) SARS-CoV-2 (PCR) (NotDetected) Coronavirus NL63 (PCR) (NotDetected) Human Metapneumovir PCR (NotDetected) Influenza Type A (PCR) (NotDetected) Influenza Type B (PCR) (NotDetected) M. pneumoniae (PCR) (NotDetected) Parainfluenza 1 (PCR) (NotDetected) Parainfluenza 2 (PCR) (NotDetected) Parainfluenza 3 (PCR) (NotDetected) Parainfluenza 4 (PCR) (NotDetected) RSV (PCR) (NotDetected) Entero/Rhino (PCR) (NotDetected) 02/28/23 02/28/23 02/28/23 Range/Units 05:20 06:15 06:15 WBC (4.8-10.8) K/ul RBC (4.20-5.40) M/uL Hgb (12.0-16.0) g/dl Hct (37.0-47.0) % MCV (80.0-100.0) fL MCH (25.0-34.0) pg MCHC (32.0-36.0) g/dL RDW Std Deviation (36.4-46.3) fL RDW Coeff of Atul (11.5-14.5) % Plt Count (130-400) K/uL MPV (9.4-12.4) fL Immature Gran % (Auto) % Neut % (Auto) % Lymph % (Auto) % [place] % (Auto) % Eos % (Auto) % Baso % (Auto) % Neut # (Auto) (1.40-6.50) K/uL Lymph # (Auto) (1.20-3.40) K/uL [place] # (Auto) (0.11-0.59) K/uL Eos # (Auto) (0.00-0.50) K/uL Baso # (Auto) (0.00-0.20) K/uL Immature Gran # (Auto) (0.01-0.20) K/uL Toxic Granulation Dohle Bodies Polychromasia PT (9.0-12.0) Seconds INR (0.9-1.1) VBG pH 7.32 L (7.36-7.41) VBG pCO2 57 H (38-50) mmHg VBG pO2 45 mmHg VBG HCO3 29 mmol/L VBG O2 Saturation 68.0 % VBG Base Excess 2.0 mEq/L Sodium (136-145) mmol/L Potassium (3.5-5.1) mmol/L Chloride (98-107) mmol/L Carbon Dioxide (21-32) mmol/L Anion Gap (3-11) BUN (6-23) mg/dl Creatinine (0.6-1.2) mg/dl Est Cr Clr Drug Dosing ml/min Est GFR ( Amer) ml/min Est GFR (Non-Af Amer) ml/min BUN/Creatinine Ratio (10-20) Glucose (70-99(Fasting)) mg/dl Lactate 1.6 (0.4-2.0) mmol/L Calcium (8.6-10.3) mg/dl Magnesium (1.7-2.4) mg/dl Total Bilirubin (0.2-1.0) mg/dl AST (13-39) U/L ALT (7-52) U/L Alkaline Phosphatase (34-104) U/L Troponin I High Sens (0-14) pg/ml Total Protein (6.0-8.3) gm/dl Albumin (3.4-5.0) gm/dl Globulin (2.5-4.0) gm/dl Albumin/Globulin Ratio (0.9-2) Adenovirus (PCR) Not Detected (NotDetected) B. pertussis DNA (PCR) Not Detected (NotDetected) B.parapertussis DNA PCR Not Detected (NotDetected) C. pneumoniae DNA (PCR) Not Detected (NotDetected) Coronavirus OC43 (PCR) Not Detected (NotDetected) Coronavirus HKU1 (PCR) Not Detected (NotDetected) Coronavirus 229E (PCR) Not Detected (NotDetected) SARS-CoV-2 (PCR) Not Detected (NotDetected) Coronavirus NL63 (PCR) Not Detected (NotDetected) Human Metapneumovir PCR Not Detected (NotDetected) Influenza Type A (PCR) Not Detected (NotDetected) Influenza Type B (PCR) Not Detected (NotDetected) M. pneumoniae (PCR) Not Detected (NotDetected) Parainfluenza 1 (PCR) Not Detected (NotDetected) Parainfluenza 2 (PCR) Not Detected (NotDetected) Parainfluenza 3 (PCR) Not Detected (NotDetected) Parainfluenza 4 (PCR) Not Detected (NotDetected) RSV (PCR) Not Detected (NotDetected) Entero/Rhino (PCR) Not Detected (NotDetected) Administered Medications Sodium Chloride (Nss) 1,000 mls @ 999 mls/hr IV .Q1H1M ONE Stop: 02/28/23 06:49 Last Admin: 02/28/23 06:00 Dose: 999 mls/hr Documented By: MED Magnesium Sulfate/Dextrose (Magnesium Sulfate / D5w) 1 gm in 100 mls @ 100 mls/hr IV NOW STA Stop: 02/28/23 06:51 Last Admin: 02/28/23 06:01 Dose: 100 mls/hr Documented By: MED Sodium Chloride (Nss) 1,000 mls @ 999 mls/hr IV .Q1H1M ONE Stop: 02/28/23 06:54 Last Admin: 02/28/23 06:05 Dose: 999 mls/hr Documented By: MED Vancomycin HCl 1,500 mg/ (Sodium Chloride) 530 mls @ 200 mls/hr IV NOW ONE Stop: 02/28/23 08:35 Last Admin: 02/28/23 06:22 Dose: 200 mls/hr Documented By: MED Discontinued Medications Albuterol (Albut/Ipratrop 3mg/0.5mg Neb 3 Ml Vial) 3 ml INH NOW STA Stop: 02/28/23 05:12 Last Admin: 02/28/23 05:26 Dose: 3 ml Documented By: MED Albuterol (Albut/Ipratrop 3mg/0.5mg Neb 3 Ml Vial) 3 ml NEB NOW STA; Protocol Stop: 02/28/23 05:20 Last Admin: 02/28/23 06:10 Dose: Not Given Documented By: MED Cefepime HCl (Maxipime) 2,000 mg in 20 mls @ 5 mls/min IV NOW STA; Protocol Stop: 02/28/23 06:00 Last Admin: 02/28/23 06:10 Dose: 5 mls/min Documented By: MED Discharge Plan Visit Data Chief Complaint: Shortness of Breath/Dyspnea Stated Complaint: SOB, Nausea ED Provider: Alexandria Haque Discharge Problem: Shortness of breath, Non-ST elevation [place] (NSTEMI), Sepsis, Acute hypoxic respiratory failure, Hypomagnesemia Forms Stand Alone Forms: [facility] Medical Prescriptions Prescriptions: No Action cholecalciferol (vitamin D3) 25 mcg (1,000 unit) capsule 25 mcg PO DAILY mecobalamin (vitamin B12) 1,000 mcg tablet,disintegrating 1,000 mcg sublingual DAILY Rx Instructions: place tablet under tongue and allow to dissolve for at least30 secs before swallowing sennosides [Senokot] 8.6 mg tablet 8.6 mg PO DAILY PRN (Reason: Constipation) melatonin 3 mg capsule 10 mg PO HS (DME) nebulizers Misc See Rx Instructions .Route Qty: 1 0RF Rx Instructions: nebulizer and nebulizer kits/supplies ANNALISA-99 Gemtesa 75 mg tablet 75 mg PO DAILY Qty: 90 3RF prednisone 10 mg tablet 10 mg PO DAILY 90 Days Qty: 90 3RF folic acid 1 mg tablet 1 mg PO QPM Qty: 30 5RF Breztri Aerosphere 160-9-4.8 mcg/actuation HFA aerosol inhaler 2 inh inhalation BID Qty: 10.7 5RF ipratropium-albuterol 0.5 mg-3 mg(2.5 mg base)/3 mL solution for nebulization 3 ml inhalation BID PRN (Reason: wheezing) Qty: 360 5RF nitrofurantoin monohyd/m-cryst [Macrobid] 100 mg capsule 100 mg PO BID 5 Days Qty: 10 0RF Rx Instructions: BEGIN 01/23/23 X 5 DAYS, TAKE THIS MED WITH A MEAL OR FOOD. warfarin [Jantoven] 2.5 mg tablet 2.5 - 5 mg PO DAILY Qty: 100 3RF Protocol: Dose Management Condition: Sunday (Week One) Dose/Route: 2.5 mg Instruction: 1 x 2.5 mg tab let Condition: Sunday Dose/Route: 2.5 mg Instruction: 1 x 2.5 mg tablet Condition: Sunday Dose/Route: 5 mg Instruction: 2 x 2.5 mg tablets Condition: Sunday Dose/Route: 5 mg Instruction: 2 x 2.5 mg tablets Condition: Dose/Route: 2.5 mg Instruction: 1 x 2.5 mg tablet Condition: Sunday Dose/Route: 2.5 mg Instruction: 1 x 2.5 mg tablet Condition: Sunday Dose/Route: 2.5 mg Instruction: 1 x 2.5 mg tablet Condition: Sunday (Week Two) Dose/Route: 2.5 mg Instruction: 1 x 2.5 mg tablet Condition: Sunday Dose/Route: 2.5 mg Instruction: 1 x 2.5 mg tablet Condition: Sunday Dose/Route: 5 mg Instruction: 2 x 2.5 mg tablets Condition: Sunday Dose/Route: 2.5 mg Instruction: 1 x 2.5 mg tablet Condition: Dose/Route: 2.5 mg Instruction: 1 x 2.5 mg tablet Condition: Sunday Dose/Route: 2.5 mg Instruction: 1 x 2.5 mg tablet Condition: Sunday Dose/Route: 2.5 mg Instruction: 1 x 2.5 mg tablet Protocol Text: Adjustment Start Date: Sunday02/27/23 INR Value: 1.9 INR Date: 02/27/23 Recheck Date: 03/07/23 Rx Instructions: TAKE THIS MED DAILY @4PM metoprolol succinate 50 mg tablet extended release 24 hr 50 mg PO DAILY Qty: 90 3RF sertraline 50 mg tablet 50 mg PO .COMPLEX Rx Instructions: 50 mg orally 25 mg in AM; Caltrate 600-D Plus Minerals 600 mg calcium- 800 unit-50 mg Tablet 1 tab PO BID Qty: 60 0RF trazodone 50 mg tablet 100 mg PO HS olanzapine 5 mg tablet 5 mg PO QPM acetaminophen [Tylenol Extra Strength] 500 mg Tablet 1,000 mg PO TID Qty: 30 0RF lidocaine 5 % Adhesive Patch,Medicated 1 patch transdermal Q24H Qty: 30 0RF docusate sodium [Colace] 100 mg capsule 100 mg PO BID PRN (Reason: Constipation) polyethylene glycol 3350 [Miralax] 17 gram/dose powder 17 g PO DAILY PRN (Reason: Constipation) pantoprazole 40 mg Tablet,Delayed Release (Dr/Ec) 40 mg PO DAILY Qty: 30 0RF ondansetron HCl 8 mg tablet 8 mg PO Q8H PRN (Reason: Nausea) oxycodone 5 mg tablet 5 mg PO Q8H PRN (Reason: Pain) Referrals Referrals: Genoveva Stallings, PAKhadarC [Primary Care Provider] -
[2023-02-28 05:44] LABS: Hematocrit (blood only) 27.2 % (37.0-47.0); Hemoglobin 8.6 g/dl (12.0-16.0); Mean Corpuscular Hemoglobin 33.6 pg (25.0-34.0); Mean Corpuscular Hgb Conc 31.6 g/dL (32.0-36.0); Mean Corpuscular Volume 106.3 fL (80.0-100.0); Mean Platelet Volume 10.6 fL (9.4-12.4); Platelet Count 82 K/uL (130-400); RDW Coefficient of Variation 15.8 % (11.5-14.5); RDW Standard Deviation 60.6 fL (36.4-46.3); Red Blood Count 2.56 M/uL (4.20-5.40); White Blood Count 13.72 K/ul (4.8-10.8)
[2023-02-28] MEDS ORDERED: SODIUM CHLORIDE 0.9% 1,000 ML IV ONE ×2 (05:49→05:54)
[2023-02-28 05:50] LABS: Albumin Globulin Ratio 1.3 (0.9-2); Albumin Level 3.2 gm/dl (3.4-5.0); BUN Creatinine Ratio 14.7 (10-20); Bilirubin,Total 0.5 mg/dl (0.2-1.0); Calcium 8.7 mg/dl (8.6-10.3); Creatinine Clr Calc Pharmacy 36.9 ml/min; Est GFR (African American) 55.9 ml/min; Est GFR (Non-African American) 48.2 ml/min; Globulin 2.4 gm/dl (2.5-4.0); Magnesium 1.4 mg/dl (1.7-2.4); Total Protein 5.6 gm/dl (6.0-8.3)
[2023-02-28] MEDS ORDERED: MAGNESIUM SULFATE / D5W 1 GM/100 ML BAG IV STA (05:52)
[2023-02-28 05:56] LABS: Troponin I High Sensitivity 28.6 pg/ml (0-14)
[2023-02-28] MEDS ORDERED: CEFEPIME 2,000 MG/20 ML VIAL IV STA (05:57)
[2023-02-28] MEDS ORDERED: VANCOMYCIN CONSULT ACTIVE PRN (05:57)
[2023-02-28] MEDS ORDERED: VANCOMYCIN HCL 1,500 MG in SODIUM CHLORIDE 0.9% 500 ML IV ONE (05:57)
[2023-02-28] MEDS ORDERED: SODIUM CHLORIDE 0.9% 500 ML IV ONE (05:57)
[2023-02-28 06:01] LABS: Basophils # (auto) 0.11 K/uL (0.00-0.20); Basophils % (auto) 0.8 %; Dohle Bodies 1+; Immature Granulocytes # (auto) 0.94 K/uL (0.01-0.20); Immature Granulocytes % (auto) 6.9 %; Lymphocytes # (auto) 0.43 K/uL (1.20-3.40); Lymphocytes % (auto) 3.1 %; Monocytes # (auto) 2.42 K/uL (0.11-0.59); Monocytes % (auto) 17.6 %; Neutrophils # (auto) 9.82 K/uL (1.40-6.50); Neutrophils % (auto) 71.6 %; Polychromasia 1+; Toxic Granulation 1+
[2023-02-28 06:02] LABS: INR 2.3 (0.9-1.1); Prothrombin Time 24.1 Seconds (9.0-12.0)
[2023-02-28 06:19] LABS: Adenovirus PCR Not Detected (NotDetected); Bordetella parapertussis PCR Not Detected (NotDetected); Bordetella pertussis PCR Not Detected (NotDetected); Chlamydia pneumoniae PCR Not Detected (NotDetected); Coronavirus 229E PCR Not Detected (NotDetected); Coronavirus CoV-2 (COVID19)PCR Not Detected (NotDetected); Coronavirus HKU1 PCR Not Detected (NotDetected); Coronavirus NL63 PCR Not Detected (NotDetected); Coronavirus OC43PCR Not Detected (NotDetected); Human Metapneumovirus PCR Not Detected (NotDetected); Influenza A PCR Not Detected (NotDetected); Influenza B PCR Not Detected (NotDetected); Mycoplasma pneumoniae PCR Not Detected (NotDetected); Parainfluenza Virus 1 PCR Not Detected (NotDetected); Parainfluenza Virus 2 PCR Not Detected (NotDetected); Parainfluenza Virus 3 PCR Not Detected (NotDetected); Parainfluenza Virus 4 PCR Not Detected (NotDetected); Respiratory Syncytial VirusPCR Not Detected (NotDetected); Rhinovirus/Enterovirus PCR Not Detected (NotDetected)
[2023-02-28 06:35] LABS: HCO3 VBG 29 mmol/L; PCO2 VBG 57 mmHg (38-50); PO2 VBG 45 mmHg; pH VBG 7.32 (7.36-7.41)
[2023-02-28 06:51] LABS: Appearance Urine Cloudy (Clear); Bacteria Urine Automated 1+ (Negative); Bilirubin Urine Negative (Negative); Blood Urine 1+ (Negative); Color Urine Yellow; Glucose Urine UA Negative (Negative); Ketones Urine Negative (Negative); Leukocyte Esterase Urine Trace (Negative); Nitrite Urine Positive (Negative); Protein Urine 3+ (Negative); Specific Gravity Urine 1.013 (1.000-1.030); Urobilinogen Urine Negative (Negative); WBC Urine Automated >30 /hpf (0-5)
--- NOTE | 2023-02-28 06:58 | XRay Report ---
XR chest 1V portable CLINICAL HISTORY: Dyspnea. COMPARISON STUDY: Chest CT January 11, 2023. Chest radiograph January 22, 2023. FINDINGS: A left subclavian [id number] is in place. Elevation of the left hemidiaphragm is unchang ed. There is no pneumothorax or pleural effusion. No consolidation to suggest pneumonia. A calcified granuloma within the left upper lobe is incidentally noted. Cardiomediastinal silhouette is stable. T here has been no change in appearance of the chest. IMPRESSION: No acute cardiopulmonary findings. No change in appearance of the chest. ACT 112: Negative or not required by law. Electronically signed by: Sanchez Begum M.D. 02/28/2023 6:57 AM
--- NOTE | 2023-02-28 07:00 | History & Physical Report ---
Date of Service February 28, 2023 Assessment & Plan (1) Acute hypoxic respiratory failure: Plan: Acute on chronic hypoxic respiratory failure: Patient at baseline uses 1 L of oxygen at home however presented to hospital with shortness of breath Etiology is uncertain, chest x-ray has been done official read pending Low suspicion for PE given patient is anticoagulated Currently 4L of oxygen Blood cultures have been obtained, will also obtain procalcitonin We will empirically cover with IV Zosyn, patient received vancomycin and cefepime in the ED (2) Hypotension: Plan: Hypotension could be due to poor p.o. intake unsure if she is septic Elevated WBC could be due to Neulasta and she got recently, she is afebrile, she does not look toxic Received a bolus of fluid in the emergency department Blood cultures and urine cultures were obtained Maintenance fluid IV normal saline 100 cc/h Continue empiric IV antibiotics (3) Small cell lung cancer: Plan: Small cell lung cancer, currently getting palliative radiotherapy Recent PET scan shows liver metastasis shrinking (4) Breast cancer: Plan: History of ductal cell breast cancer (5) Atrial flutter: Plan: Rate controlled On warfarin, continue (6) Shortness of breath: Plan Admit to telemetry Full code DVT warfarin History of Present Illness Chief Complaint: Shortness of breath Primary Care Provider: Genoveva Stallings PA-C This is a 77-year-old female with a history of metastatic small cell lung cancer, breast cancer, bladder cancer, hypertension SIADH, polymyalgia atrial flutter, COPD on home oxygen, type 2 diabetes who presents to the hospital today on account of shortness of breath according to the patient she went to see the manager information a day prior to presentation where she was checked out and given a clean bill of health. However around 1 AM she started having some shortness of breath which got worse so she decided to come to the hospital for further evaluation. She said usually at home she uses 1 L of oxygen for COPD but had needed to crank up her oxygen a little bit. Upon arrival at the emergency department her saturation was 88% and her oxygen was down to 4L. She was also hypotensive, blood pressure 95/48 and she was tachypneic respiratory rate 33 Blood cultures have been obtained urine cultures also obtained result pending chest x-ray has been done official read pending. She has been started empirically on IV antibiotics and will be admitted to the hospital further management. Allergies Allergy/AdvReac Type Severity Reaction Status Date / Time castor oil Allergy Severe "TAXANES" Verified 02/27/23 15:20 CAUSE DYSPNEA, RASH, ELEVATED BP docetaxel [From Taxotere] Allergy Severe "TAXANES" Verified 02/27/23 15:20 CAUSE DYSPNEA, RASH, ELEVATED BP paclitaxel Allergy Severe "TAXANES" Verified 02/27/23 15:20 CAUSE DYSPNEA, RASH, ELEVATED BP trimethoprim [From Bactrim] Allergy Severe Anaphylaxis Verified 02/27/23 15:20 Iodinated Contrast Media Allergy Intermediate HIVES/ITCHI Verified 02/27/23 15:20 NG nitrofurantoin Allergy Intermediate CHEST Verified 02/27/23 15:20 PAIN, DYSPNEA Sulfa (Sulfonamide Allergy Intermediate HIVES, Verified 02/27/23 15:20 Antibiotics) ITCHINESS, SHORTNESS OF BREATH codeine AdvReac Intermediate COLD Verified 02/27/23 15:20 SWEAT, THINGS START SPINNING, NAUSEA phenazopyridine AdvReac Intermediate N/V Verified 02/27/23 15:20 Home Medications Medication Instructions Recorded Confirmed Type cholecalciferol (vitamin D3) 25 25 mcg PO DAILY 12/01/21 01/22/23 History mcg (1,000 unit) capsule nebulizers #1 ea 12/05/21 01/22/23 Rx calcium 600 mg-D3 800 unit-mag11 1 tab PO BID #60 tabs 04/27/22 01/22/[address]-zetu-grvqrw-beulah-s.borat tablet (Caltrate 600-D Plus Minerals) sennosides 8.6 mg tablet (Senokot) 8.6 mg PO DAILY PRN Constipation 06/01/22 01/22/23 History melatonin 3 mg capsule 10 mg PO HS 07/12/22 01/22/23 History vibegron 75 mg tablet (Gemtesa) 75 mg PO DAILY #90 tabs 07/20/22 01/22/23 Rx prednisone 10 mg tablet 10 mg PO DAILY 90 days #90 tabs 09/27/22 01/22/23 Rx mecobalamin (vitamin B12) 1,000 1,000 mcg sublingual DAILY 10/26/22 01/22/23 History mcg disintegrating tablet,sublingual metoprolol succinate 50 mg 50 mg PO DAILY #90 tabs 11/28/22 01/22/23 Rx tablet,extended release 24 hr budesonide 160 mcg-glycopyr 9 2 inh inhalation BID #10.7 grams 12/11/22 01/22/23 Rx mcg-formot 4.8 mcg/actuation HFA inhaler (Breztri Aerosphere) folic acid 1 mg tablet 1 mg PO QPM #30 tabs 12/11/22 01/22/23 Rx ipratropium 0.5 mg-albuterol 3 mg 3 ml inhalation BID PRN wheezing 12/11/22 01/22/23 Rx (2.5 mg base)/3 mL nebulization #360 mL soln docusate sodium 100 mg capsule 100 mg PO BID PRN Constipation 01/03/23 01/22/23 History (Colace) polyethylene glycol 3350 17 17 g PO DAILY PRN Constipation 01/03/23 01/22/23 History gram/dose oral powder (Miralax) pantoprazole 40 mg tablet,delayed 40 mg PO DAILY #30 tabs 01/06/23 01/22/23 Rx release olanzapine 5 mg tablet 5 mg PO QPM 01/10/23 01/22/23 History trazodone 50 mg tablet 100 mg PO HS 01/10/23 01/22/23 History acetaminophen 500 mg tablet 1,000 mg PO TID #30 tabs 01/14/23 01/22/23 Rx (Tylenol Extra Strength) lidocaine 5 % topical patch 1 patch transdermal Q24H #30 ea 01/14/23 01/22/23 Rx nitrofurantoin 100 mg PO BID 5 days #10 caps 01/22/23 01/22/23 Rx monohydrate/macrocrystals 100 mg capsule (Macrobid) ondansetron HCl 8 mg tablet 8 mg PO Q8H PRN Nausea 01/22/23 01/22/23 History oxycodone 5 mg tablet 5 mg PO Q8H PRN Pain 01/22/23 01/22/23 History warfarin 2.5 mg tablet (Jantoven) 2.5 - 5 mg PO DAILY #100 tabs 02/12/23 02/27/23 Rx sertraline 50 mg tablet 50 mg PO .COMPLEX 02/27/23 History Past Med/Surg History Medical History Anemia Anticoagulant long-term use Anxiety Asthma (04/25/12) Atrial flutter with rapid ventricular response Breast cancer Cardiomyopathy Chronic dyspnea Chronic hypoxemic respiratory failure Chronic obstructive pulmonary disease Chronic respiratory failure with hypoxia Compression fracture of L1 vertebra (08/15/21) Diabetes mellitus, type 2 DVT (deep venous thrombosis) (10/2022) Endometrial thickening on ultrasound Ex-smoker Excessive cerumen in both ear canals GERD (gastroesophageal reflux disease) Hearing deficit Hemoptysis History of breast cancer History of diverticulitis History of liver disease Hx of bladder cancer Hypomagnesemia Hyponatremia Insomnia Left rib fracture (2016) LFTs abnormal Liver abscess Liver lesion Lower extremity edema Malignant neoplasm of lung Migraine Osteoporosis Pancytopenia due to antineoplastic chemotherapy Paroxysmal atrial fibrillation Pneumonia Polymyalgia rheumatica Port-A-Cath in place Small cell lung cancer Small cell lung cancer Tremor Ureteral tumor Urinary incontinence UTI (urinary tract infection) Vertebral fracture Surgical History H/O cystoscopy History of appendectomy History of arthroscopy History of breast biopsy History of bronchoscopy History of cholecystectomy History of colonoscopy History of elbow surgery History of lumpectomy of right breast History of surgery History of surgery Nausea and vomiting after administration of anesthetic agent S/P ablation of atrial flutter Family History Other Adopted Family history unknown Social History Smoking Status: Former smoker Tobacco Type: Cigarettes Cigarettes Per Day: Less than 1/2 PPD now;Smoked 50+yrs;; Second Hand Exposure: No; Do You Dip or Chew Tobacco: No; Hx Alcohol Use: No Hx Substance Use: No Preferred Language: [place] Communication Ability: Effective Communication Tools: Other Visual Impairment: No Limitations Hearing Ability: Hard of Hearing Faucets Assembler Required: No Beliefs That Will Affect Care: None marital status: Single Current Living Situation: Alone Current Living Situation Comment: Lives with a roomate current occupational status: retired Feels Safe at Home: Yes Childhood Exposure to Second-Hand Smoke: Yes Diet: regular caffeine: No during the past year weight has: remained stable Dental Care, Regularly: Yes Physical Activity Frequency: 1-2 Times per Week Seatbelt Use: always Sunscreen Use: Yes Assistive Devices: Bedside Commode, Hospital Bed, Oxygen - Continuous, Walker and Wheelchair Review of Systems Review of Systems: All systems reviewed are negative, apart from the ones contained in the history. Physical Exam Physical Exam: The patient is awake, alert and oriented 3, thin looking HEENT--PERRL, EOMI, mucous membranes and oropharynx mildly dry Neck--supple. No JVD. No bruits. Thyroid normal, trachea midline, no adenopathy. Heart--normal S1 and S2. No murmurs, rubs or gallops. Lungs--clear bilaterally, no respiratory distress, no accessory muscle use. Abdomen--normal bowel sounds and soft. Extremities--no cyanosis or clubbing. Trace bilateral leg edema Dermatologic--normal skin turgor, normal color, no abnormal lymph nodes, no rash. Neurologic--cranial nerves II through XII grossly intact. Rheumatologic--normal range of motion. Psychiatric--normal affect. Results & Data Results & Data Vital Signs (Past 12 Hours) Vital Signs Temp Pulse Pulse Resp BP BP Pulse Ox 02/28/23 06:39 82 33 H 95/48 L 98 02/28/23 05:08 84 02/28/23 05:27 88 33 H 89 L 02/28/23 05:17 97 02/28/23 05:11 98.6 F 85 30 H 95/46 L 98 O2 Del Method O2 Flow Rate 02/28/23 06:39 Oxymask 4 02/28/23 05:08 02/28/23 05:27 Nasal Cannula 1 02/28/23 05:17 Nasal Cannula 4 02/28/23 05:11 Nasal Cannula 4 Code Status & VTE Plan VTE Prophylaxis Plan VTE Prophylaxis will be ordered: Yes PG Care Time/CCT Total # of Minutes Spent Total Time Spent with Patient: Total time spent is greater than 50% in coordination of care (as documented) at patient's floor/unit and/or counseling patient: Coding Level of Care Code 98320 INT INP/OBS CARE 3/75MIN Diagnoses Acute hypoxic respiratory failure J96.01 Hypotension I95.9 Small cell lung cancer C34.90 Breast cancer C50.919 Atrial flutter I48.92 Shortness of breath R06.02 Time Spent (min) 75
--- NOTE | 2023-02-28 08:54 | Electrocardiogram Report ---
Test Reason : Blood Pressure : / mmHG Vent. Rate : 084 BPM Atrial Rate : 084 BPM P-R Int : 150 ms QRS Dur : 104 ms QT Int : 408 ms P-R-T Axes : 067 -42 045 degrees QTc Int : 482 ms Sinus rhythm with occasional Premature ventricular complexes and Fusion complexes Left axis deviation Incomplete right bundle branch block Abnormal ECG When compared with ECG of 22-JAN-2023 19:47, Fusion complexes are now Present Premature ventricular complexes are now Present T wave inversion now evident in Lateral leads Confirmed by Lion Dupree ([id number] on 02/28/2023 8:54:13 AM Referred By: Confirmed By:Dontrell Dupree
[2023-02-28] MEDS ORDERED: ACETAMINOPHEN 325 MG TAB PO PRN (09:03)
[2023-02-28] MEDS ORDERED: ONDANSETRON INJ 2 MG/ML 2 ML VIAL IV PRN (09:03)
[2023-02-28] MEDS ORDERED: PIPER/TAZO 4.5g in D5W MINI-B 100 ML IV ONE (09:15)
[2023-02-28] MEDS ORDERED: methylPREDNISolone 125 MG in SYRINGE 0 ML IV ONE (11:20)
--- NOTE | 2023-02-28 11:22 | History & Physical Bridge Note ---
Date of Service February 28, 2023 History & Physical Bridge Note I have examined the patient, reviewed the History & Physical and in the interval since the performance of the History & Physical I have noted the following changes of clinical significance: Maxx in room [address] chest due to pain from compression fractures, now comfortable back on her usual oxycodone 5mg as needed. Remains on 4L Oxymask, 100%. Daughter and family at bedside, was just at Dr Das's office yesterday. They report she has been having her coumadin adjusted frequently, just took 5mg yesterday and day prior and on 2.5mg through this upcoming Sunday. INR added to morning labs, Goal 2.5-3.5 Discussed given patient hypotensive on admission with increased O2 requirement up to 4L from baseline and prior subtherapeutic INRs, concerns for PE in setting of patient w/ hx malignancy. Family reporting darker urine recently, similar to when she's had prior infections. A/P Acute respiratory failure w/ hypoxia- SpO2 to 75-80% at home (typically on 1L at baseline) Pt on coumadin for hx DVT in patient with breast/NSCLC (also w/ bladder findings as well as DIGITAL MEDIA REPRESENTATIVE endometrial thickening) with hypotension and increased O2 requirement from 1L --4L on admission, subtherapeutic INRs, concerns for PE in setting of patient w/ hx malignancy with recent adjustment in coumadin weekly WBC elevation, Procal >28 on admission Blood cultures pending IV Zosyn for abx, pulmonary toilet added Check MRSA nares, consider sputum cx Consider vanco pending nares Incentive spirometer, flutter valve, duonebs prn --> daughter bringing in home dora to be relabeled in pharmacy Mag 1.5 -- IV replacement ordered Titrate O2 as able to maintain sats -- 100% on 4L Oxymask CT chest for PE pending -- hives listed as allergy, given solumedrol 125mg IV x 1 as given previously, however per discussion w/ daughter patient only had ONE hive in past, has not required further meds w/ contrast Resuming coumadin this evening 2.5mg daily, possibly higher dose/bridge with Lovenox vs placing on Heparin gtt if +PE on imaging? Will discuss w/ supervising provider regading Lovenox Bridge while subtherapeutic pending CT chest. Repeat INR 2.0 Consideration for ECHO pending CTA chest. F/u urine cx as well - family reporting darker urine recently, similar to when she's had prior infections. UA obtained, 1+ bacteria, >30WBC, leuk est. F/u CX Continued on Zosyn, blood cultures pending from admission Medications reviewed, ordered home medications as taking. Zoloft 25mg QAM, 50mg QHS Olanzapine 5mg HS Trazodone 100mg HS (will make prn) Melatonin 10mg HS (giving 9mg while inpatient) Breztri inhaler BID (daughter bringing in) Prednisone 10mg daily Metoprolol succinate 50mg daily Stool softeners w/ colace, miralax -- will use docusate/senna while inpatient, miralax as needed Holding off on PO folic acid/B12 but can resume tomorow pending labs Regarding NaCl tablets, patient w/ Na 137 on AM labs --> had been DECREASED to 1gm DAILY rather than TID NOT on Triamterene-HCTZ any longer (suspected contributing/cause for her low Na, suspect component SIADh/Lung Ca as well)
--- NOTE | 2023-02-28 11:58 | Pharmacy Report ---
Pharmacy Vanc AUC Short Note - Date of Service February 28, 2023 - Assessment & Plan Assessment 77 year old F receiving vanc/zosyn empirically after presenting with SOB. PCT ordered and elevated, MRSA nasal swab and cxs pending. Day # 1 of antimicrobial therapy. Plan Vancomycin * Loading dose 1500mg X 1 administered this morning * AUC/OPHELIA is the preferred PK/PD target for vancomycin * AUC guided dosing is effective and associated with decreased risk of nephrotox icity compared to traditional trough targets * Initiate 1250mg q24h starting tomorrow morning. * Predicted Trough level of 16.3 mcg/mL is predicted to achieve target AUC/OPHELIA of 400-600 mg/L.hr and may be associated with a 12 % risk of nephrotoxicity * Trough or random level ordered for: 03/02/23 @ 0500- can cancel if therapy not to continue past current 48 hour duration. Pharmacy will continue to follow and will adjust dose/frequency as necessary. Thank you.
[2023-02-28] MEDS ORDERED: methylPREDNISolone 125 MG/2 ML VIAL IV ONE (12:00)
[2023-02-28] MEDS: LIDOCAINE 5% 1 PATCH TD SCH (12:05)
[2023-02-28] MEDS: oxyCODONE HCL IR 5 MG TAB (IMMEDIATE RELEASE) PO PRN (12:06)
[2023-02-28] MEDS: diazePAM 2 MG TABLET PO PRN (12:06)
[2023-02-28] MEDS: MAGNESIUM SULFATE / D5W 1 GM/100 ML BAG IV SCH ×3 (12:14→16:03)
[2023-02-28] MEDS ORDERED: SERTRALINE HCL 50 MG TABLET PO SCH (12:15)
[2023-02-28 12:24] LABS: Folate (Folic Acid),Ser orPlas > 22.30 ng/ml (>5.38)
[2023-02-28 12:25] LABS: Vitamin B12 > 1500 pg/ml (180-914)
[2023-02-28] MEDS ORDERED: traZODone HCL 100 MG TAB PO PRN (14:05)
[2023-02-28] MEDS ORDERED: MELATONIN 3 MG TAB PO PRN (14:05)
[2023-02-28] MEDS: WARFARIN SOD 2.5 MG TAB PO SCH (16:15)
[2023-02-28] MEDS: DOCUSATE SODIUM/SENNA 50/8.6MG TAB PO SCH (16:17)
[2023-02-28] MEDS: PIPERACILLIN/TAZOBACTAM 4.5 GM in DEXTROSE 5% MINI-B 100 ML IV SCH (17:20)
[2023-02-28] MEDS ORDERED: ENOXAPARIN 80 MG/0.8 ML SYR SQ ONE (18:24)
--- NOTE | 2023-02-28 18:26 | Communication Note ---
Date of Service: February 28, [address] chest for PE completed. Called to CT, aware of allergy/medicated as well as patient with ONE single hive in the past/tolerance to contrast prior and ability to get per daughter. Patient down to CT but IV site blew, being brought back up to floor for new IV site and then back to CT following. Will provide Lovenox SQ x 1 for coverage given INR <2.5. Monitor CT chest/INR in AM. Further management pending CT results
[2023-02-28] MEDS: SERTRALINE HCL 50 MG TABLET PO SCH (21:13)
[2023-02-28] MEDS: OLANZapine 5 MG TABLET PO SCH (21:13)
[2023-02-28] MEDS: BUDESONIDE/GLYCOPYR/FORMOTEROL INHALER INH SCH (21:13)
--- NOTE | 2023-03-01 00:18 | Communication Note ---
Date of Service: March 01, 2023 Patient was due for a CTA chest to rule out pulmonary embolism. She is anticoagulated on subtherapeutic warfarin with therapeutic Lovenox dosing for bridging. Her initial IV site was infiltrated during the CTA. She was brought up to the floor for new IV site insertion which IV team was able to do. At this time I did speak with family bedside updating them on patient's status and care. She went down to CT scanning again and the new IV site was infiltrated as well. At this point we are told IV telemetry could not find another site at this time. She only has her left arm available to use. Apparently she had already received too much contrast in the arm as well to reattempt tonight. Patient was also unwilling to try this again at this moment. I have ordered a VQ scan instead to assess for possible PE. I did leave a voicemail for the daughter explaining the situation. Resident Activity Tracking Resident Involvement: Resident Care Provided Care Provided: Adult Hospital Medicine
[2023-03-01] MEDS: PIPERACILLIN/TAZOBACTAM 4.5 GM in DEXTROSE 5% MINI-B 100 ML IV SCH ×3 (00:30→16:31)
[2023-03-01] MEDS ORDERED: VANCOMYCIN HCL 1,250 MG in SODIUM CHLORIDE 0.9% 250 ML IV SCH (06:00)
[2023-03-01 06:23] LABS: Dohle Bodies 1+; Hematocrit (blood only) 24.3 % (37.0-47.0); Hemoglobin 7.7 g/dl (12.0-16.0); Immature Granulocytes # (auto) 0.36 K/uL (0.01-0.20); Immature Granulocytes % (auto) 3.3 %; Lymphocytes # (auto) 0.16 K/uL (1.20-3.40); Lymphocytes % (auto) 1.5 %; Mean Corpuscular Hemoglobin 33.9 pg (25.0-34.0); Mean Corpuscular Hgb Conc 31.7 g/dL (32.0-36.0); Mean Platelet Volume 11.6 fL (9.4-12.4); Monocytes # (auto) 1.55 K/uL (0.11-0.59); Monocytes % (auto) 14.1 %; Neutrophils # (auto) 8.94 K/uL (1.40-6.50); Neutrophils % (auto) 81.1 %; Platelet Count 56 K/uL (130-400); RDW Coefficient of Variation 15.9 % (11.5-14.5); RDW Standard Deviation 62.2 fL (36.4-46.3); Red Blood Count 2.27 M/uL (4.20-5.40); Toxic Granulation 1+; White Blood Count 11.01 K/ul (4.8-10.8)
[2023-03-01 06:24] LABS: Calcium 8.2 mg/dl (8.6-10.3); Magnesium 2.5 mg/dl (1.7-2.4); Potassium 4.7 mmol/L (3.5-5.1)
[2023-03-01 06:29] LABS: BUN Creatinine Ratio 15.2 (10-20); Creatinine Clr Calc Pharmacy 33.3 ml/min; Est GFR (Non-African American) 36.3 ml/min
[2023-03-01 07:39] LABS: INR 3.3 (0.9-1.1); Prothrombin Time 33.8 Seconds (9.0-12.0)
--- NOTE | 2023-03-01 07:46 | Hospitalist Progress Note ---
Date of Service March 01, 2023 Assessment & Plan (1) Acute hypoxic respiratory failure: Plan: Acute on chronic hypoxic respiratory failure: Patient at baseline uses 1 L of oxygen at home however presented to hospital with shortness of breath and requiring 4L to maintain saturations Pt on coumadin for hx DVT in patient with breast/NSCLC (also w/ bladder findings as well as [employer] endometrial thickening) with hypotension and increased O2 req uirement from 1L --4L on admission, subtherapeutic INRs, concerns for PE in setting of patient w/ hx malignancy with recent adjustment in coumadin weekly WBC elevation, procal <28 on admission Blood cultures NGTD, afebrile IV abx: Zosyn (covering for urine as well). MRSA nares negative. Vanco discontinued as ordered on admission Pulmonary toilet Home breztri brought by family last evening Mag replacement, wnl on repeat Given Lovenox SQ x 1 for bridging given subtherapeutic INR (patient w/ prior PE on eliquis, developed DVT now on coumadin). Coumadin 2.5mg daily continued (all days except 5mg Sunday/Sunday) INR 3.3 on AM labs Attempted CTA chest for PE yesterday given subtherapeutic INRs to ensure no PE Issues w/ IV access and ended up obtaining VQ scan which did not note any seg mental perfusion defects Titrate O2 to maintain saturations (2) Volume overload: Plan: Initial CXR negative for acute process Was given multiple liters IVF on admission for hypotension Previously on HCTZ/triamterene in past but stopped due to hyponatremia. Now down to 1gm NaCl tablet daily BNP checked, elevated to 691 ECHO prior w/ EF 35-40%. Repeat ECHO w/ improvement back to normal EF, wma resolved Had got into afib w/ rates to 120s this morning w/ VQ scan, however converted back quickly. Discussed w/ Dr Das and planned to increase her metoprolol to 50mg BID and will continue to monitor on telemeter CXR repeated this morning given JVD/diminished in bases w/ LE edema and concerns for volume overload and notes pulmonary vascular congestion Lasix 20mg IV x 1 --> monitor response Monitor weights, I&Os (3) UTI (urinary tract infection): Plan: Family reporting darker urine recently, similar to when she's had prior infections. UA obtained, 1+ bacteria, >30WBC, leuk est. Urine cx GNB On zosyn for above, monitor final urine cx/sensitivites Blood cultures remain ngtd WBC trending down, patient appearing much more alert/conversite. per family at bedside appears much improved compared to day prior (4) Hypotension: Plan: Hypotension could be due to poor p.o. intake unsure if she is septic. Lactic 1.6 Did get neulasta recently, however suspect WBC elevation possibly 2nd to UTI Blood cultures NGTD, WBC trending down on Zosyn (Vanco dc'd) IVF boluses in ER, continued NS @ 100cc/hr thereafter Now volume overloaded, lasix as above Monitor (5) Small cell lung cancer: Plan: Recent PET scan shows liver metastasis shrinking Follows with Dr Ceja Concurrent chemoradiation w/ Carbo/Etoposide, completed radiation treatments 12/2021 Had received Iron transfusions over the summer Monitor hgb, suspect drop w/ volume overload but will monitor Can consult Dr Ceja if needed (6) Breast cancer: Plan: History of ductal cell breast cancer (7) Atrial flutter: Plan: Rate controlled On warfarin, continued and given Lovenox as above yesterday for bridge. INR 3.3 on AM labs and will continue current coumadin dosing Monitor on tele - keep mag/K replete (8) Shortness of breath: Plan: VQ scanned as above, attempted CT chest for PE last evening due to above Medications reviewed, ordered home medications as taking. Zoloft 25mg QAM, 50mg QHS Olanzapine 5mg HS Trazodone 100mg HS (will make prn) Melatonin 10mg HS (giving 9mg while inpatient) Breztri inhaler BID (daughter bringing in) Prednisone 10mg daily Metoprolol succinate 50mg daily Stool softeners w/ colace, miralax -- will use docusate/senna while inpatient, miralax as needed Holding off on PO folic acid/B12 but can resume tomorrow pending labs (9) Paroxysmal atrial fibrillation: Plan: increased metoprolol as above, now in NSR monitor on telemetry Admission and Anticipated Discharge Date Admission Date: February 28, 2023 Subjective Eval this morning, sitting up in bed, appears much improved. Per family at bedside, mentation much improved. She reports that her breathing feels about baseline. VQ scan negative for PE concerns. Lovenox provided last night and INR >3 today. No bleeding. Discussed hgb level and 2-3L IVF on admission, likely maybe some volume overload and trial small dose lasix 20mg IV x 1 discussed w/ son at bedside and patient and they are agreeable. Previously on triamterene-HCTZ. Does have some LE swelling as well. Urine cx pending. Good appetite/improved from yesterday. Flipped into afib w/ VQ scan this morning (roughed up per nursing) and flipped back. Was up to 120s. Discussed w/ Dr Das and plans for increased metoprolol to 50mg BID. Pain much improved w/ home medications.She would like lidocaine patch to middle/low back as uses at home, and tylenol 2 tablets when available. Rn to provide. Questions/concerns addressed at this time. Physical Exam Physical Exam: General: chronically ill appearing female sitting up in bed, more alert/awake today, conversive, mentation approaching baseline, family at bedside HEENT: head normocephalic, atraumatic, mmm, trachea midline, +JVD Chest; port to L chest, dressing c/d/i Resp: diminished in the bases, expiratory wheezing, no rales/crackles, on 4L CV: regular rate/rhythm (afib earlier this morning to 120s), no significant m/r/g, 1+ b/l LE edema (left leg reported always more swollen), pulses palpable GI: +BS, soft/NT : no miranda MSK/Neuro: no focal deficits, no slurred speech, answering questions appropriately Psych: alert/oriented to person/place/time, cooperative with exam Results & Data Results & Data Vital Signs (Past 12 Hours) Vital Signs Temp Pulse Resp BP Pulse Ox O2 Del Method O2 Flow Rate 03/01/23 06:29 Nasal Cannula 2 03/01/23 03:00 36.5 C 78 14 105/58 L 99 Nasal Cannula 02/28/23 23:00 36.5 C 81 22 90/53 L 99 Nasal Cannula Laboratory Results 03/01/23 03/01/23 02/28/23 Range/Units 06:43 05:30 16:33 WBC 11.01 H (4.8-10.8) K/ul RBC 2.27 L (4.20-5.40) M/uL Hgb 7.7 L (12.0-16.0) g/dl Hct 24.3 L (37.0-47.0) % MCV 107.0 H (80.0-100.0) fL MCH 33.9 (25.0-34.0) pg MCHC 31.7 L (32.0-36.0) g/dL RDW Std Deviation 62.2 H (36.4-46.3) fL RDW Coeff of Atul 15.9 H (11.5-14.5) % Plt Count 56 L (130-400) K/uL MPV 11.6 (9.4-12.4) fL Immature Gran % (Auto) 3.3 % Neut % (Auto) 81.1 % Lymph % (Auto) 1.5 % Crockett % (Auto) 14.1 % Eos % (Auto) 0.0 % Baso % (Auto) 0.0 % Neut # (Auto) 8.94 H (1.40-6.50) K/uL Lymph # (Auto) 0.16 L (1.20-3.40) K/uL Crockett # (Auto) 1.55 H (0.11-0.59) K/uL Eos # (Auto) 0.00 (0.00-0.50) K/uL Baso # (Auto) 0.00 (0.00-0.20) K/uL Immature Gran # (Auto) 0.36 H (0.01-0.20) K/uL Toxic Granulation 1+ Dohle Bodies 1+ PT 33.8 H (9.0-12.0) Seconds INR 3.3 H (0.9-1.1) Sodium 135 L (136-145) mmol/L Potassium 4.7 (3.5-5.1) mmol/L Chloride 106 (98-107) mmol/L Carbon Dioxide 22 (21-32) mmol/L Anion Gap 7 (3-11) BUN 21 (6-23) mg/dl Creatinine 1.38 H (0.6-1.2) mg/dl Est Cr Clr Drug Dosing 33.3 ml/min Est GFR ( Amer) 42.0 ml/min Est GFR (Non-Af Amer) 36.3 ml/min BUN/Creatinine Ratio 15.2 (10-20) Glucose 145 H (70-99(Fasting)) mg/dl POC Glucose 115 H (70-99) mg/dl Calcium 8.2 L (8.6-10.3) mg/dl Magnesium 2.5 H (1.7-2.4) mg/dl Troponin I High Sens (0-14) pg/ml Vitamin B12 (180-914) pg/ml Folate (>5.38) ng/ml Nasal Screen MRSA (PCR) (Negative) 02/28/23 02/28/23 02/28/23 Range/Units 14:15 11:21 07:11 WBC (4.8-10.8) K/ul RBC (4.20-5.40) M/uL Hgb (12.0-16.0) g/dl Hct (37.0-47.0) % MCV (80.0-100.0) fL MCH (25.0-34.0) pg MCHC (32.0-36.0) g/dL RDW Std Deviation (36.4-46.3) fL RDW Coeff of Atul (11.5-14.5) % Plt Count (130-400) K/uL MPV (9.4-12.4) fL Immature Gran % (Auto) % Neut % (Auto) % Lymph % (Auto) % Crockett % (Auto) % Eos % (Auto) % Baso % (Auto) % Neut # (Auto) (1.40-6.50) K/uL Lymph # (Auto) (1.20-3.40) K/uL Crockett # (Auto) (0.11-0.59) K/uL Eos # (Auto) (0.00-0.50) K/uL Baso # (Auto) (0.00-0.20) K/uL Immature Gran # (Auto) (0.01-0.20) K/uL Toxic Granulation Dohle Bodies PT 21.0 H (9.0-12.0) Seconds INR 2.0 H (0.9-1.1) Sodium (136-145) mmol/L Potassium (3.5-5.1) mmol/L Chloride (98-107) mmol/L Carbon Dioxide (21-32) mmol/L Anion Gap (3-11) BUN (6-23) mg/dl Creatinine (0.6-1.2) mg/dl Est Cr Clr Drug Dosing ml/min Est GFR ( Amer) ml/min Est GFR (Non-Af Amer) ml/min BUN/Creatinine Ratio (10-20) Glucose (70-99(Fasting)) mg/dl POC Glucose (70-99) mg/dl Calcium (8.6-10.3) mg/dl Magnesium (1.7-2.4) mg/dl Troponin I High Sens 21.1 H (0-14) pg/ml Vitamin B12 > 1500 H (180-914) pg/ml Folate > 22.30 (>5.38) ng/ml Nasal Screen MRSA (PCR) Negative (Negative) Diagnostic Findings Pulmonary Perfusion Imaging 03/01/23 10:30 NUCLEAR MEDICINE PERFUSION STUDY CLINICAL HISTORY: Dyspnea. Evaluate for evidence of pulmonary embolism. COMPARISON STUDY: Chest CT January 11, 2023. Chest radiograph February 28, 2023. Nuclear medicine perfusion study December 26, 2021. TECHNIQUE: 5.1 mCi of technetium 99m MAA was injected IV at 10:36 AM on March 01, 2023. Following injection, imaging of the chest was performed in multiple projections. No ventilation imaging was performed given ventilation precautions. FINDINGS: No segmental defects are identified on this exam. Slight asymmetric diminished perfusion to the left lung is noted. Exam is compromised given lack of ventilation imaging. However, the findings are considered low probability for pulmonary embolus. IMPRESSION: No segmental perfusion defects to strongly suggest pulmonary embolism. ACT 112: Negative or not required by law. Electronically signed by: Sanchez Begum M.D. 03/01/2023 11:19 AM Chest X-Ray 03/01/23 13:32 SINGLE VIEW CHEST CLINICAL HISTORY: Dyspnea FINDINGS: An AP, portable, upright chest radiograph is compared to study dated 02/28/2023. Correlation is made with chest CT dated 01/11/2023. A left subclavian central venous infusion port is unchanged in position. The heart is enlarged and noting atherosclerotic calcification of the thoracic aorta. The mitral annulus density calcified. There is mild pulmonary vascular congestion. Emphysema and chronic interstitial thickening similar to previous. A calcified granuloma is again seen in the left apex. There is bibasilar scarring/atelectasis. Small pleural effusions are suspected. No pneumothorax is seen. The skeletal structures are osteopenic. The bony thorax is grossly intact. Spondylotic change is noted throughout the spine. IMPRESSION: 1. Cardiomegaly and emphysema with pulmonary vascular congestion. 2. Small pleural effusions. ACT 112: Negative or not required by law. Electronically signed by: Zaki Brian M.D. 03/01/2023 2:33 PM PG Care Time/CCT Total # of Minutes Spent Total Time Spent with Patient: Total time spent is greater than 50% in coordination of care (as documented) at patient's floor/unit and/or counseling patient: Coding Level of Care Code 67583 SUB INP/OBS CARE 3/50MIN Diagnoses Acute hypoxic respiratory failure J96.01 Volume overload E87.70 UTI (urinary tract infection) N39.0 Hypotension I95.9 Small cell lung cancer C34.90 Breast cancer C50.919 Atrial flutter I48.92 Shortness of breath R06.02 Paroxysmal atrial fibrillation I48.0
[2023-03-01] MEDS: CHOLECALCIFEROL 1,000 UNITS 25 MCG TAB PO SCH (08:27)
[2023-03-01] MEDS: predniSONE 10 MG TABLET PO SCH (08:27)
[2023-03-01] MEDS: LIDOCAINE 5% 1 PATCH TD SCH (08:27)
[2023-03-01] MEDS: BUDESONIDE/GLYCOPYR/FORMOTEROL INHALER INH SCH ×2 (08:27→21:30)
[2023-03-01] MEDS: VIBEGRON 75 MG TAB PO SCH (08:27)
[2023-03-01] MEDS: DOCUSATE SODIUM/SENNA 50/8.6MG TAB PO SCH (08:27)
[2023-03-01] MEDS: SODIUM CHLORIDE 1 GM TABLET PO SCH (08:27)
[2023-03-01] MEDS ORDERED: PANTOprazole 40 MG TAB PO SCH (09:00)
[2023-03-01] MEDS ORDERED: METOPROLOL SUCC 50MG EXT REL TAB PO SCH (09:00)
[2023-03-01 09:45] LABS: Ferritin 881.8 ng/ml (8-388)
--- NOTE | 2023-03-01 11:21 | Nuclear Medicine Report ---
NUCLEAR MEDICINE PERFUSION STUDY CLINICAL HISTORY: Dyspnea. Evaluate for evidence of pulmonary embolism. COMPARISON STUDY: Chest CT January 11, 2023. Chest radiograph February 28, 2023. Nuclear medicine p erfusion study December 26, 2021. TECHNIQUE: 5.1 mCi of technetium 99m MAA was injected IV at 10:36 AM on March 01, 2023. Following i njection, imaging of the chest was performed in multiple projections. No ventilation imaging was perf ormed given ventilation precautions. FINDINGS: No segmental defects are identified on this exam. Slight asymmetric diminished perfusion to the left lung is noted. Exam is compromised given lack of ventilation imaging. However, the findings are considered low probability for pulmonary embolus. IMPRESSION: No segmental perfusion defects to strongly suggest pulmonary embolism. ACT 112: Negative or not required by law. Electronically signed by: Sanchez Begum M.D. 03/01/2023 11:19 AM
--- NOTE | 2023-03-01 11:53 | XCELERA ---
[id number] \\[id number]
[2023-03-01] MEDS ORDERED: SODIUM CHLORIDE 0.9% 500 ML IV SCH (12:00)
[2023-03-01] MEDS ORDERED: FUROSEMIDE INJ 20 MG/2 ML VIAL IV ONE ×2 (13:16→16:29)
--- NOTE | 2023-03-01 14:34 | XRay Report ---
SINGLE VIEW CHEST CLINICAL HISTORY: Dyspnea FINDINGS: An AP, portable, upright chest radiograph is compared to study dated 02/28/2023. Correlation is made with chest CT dated 01/11/2023. A left subclavian central venous infusion port is unchanged i n position. The heart is enlarged and noting atherosclerotic calcification of the thoracic aorta. The mitral annulus density calcified. There is mild pulmonary vascular congestion. Emphysema and chronic interstitial thickening similar to previous. A calcified granuloma is again seen in the left apex. T here is bibasilar scarring/atelectasis. Small pleural effusions are suspected. No pneumothorax is see n. The skeletal structures are osteopenic. The bony thorax is grossly intact. Spondylotic change is n oted throughout the spine. IMPRESSION: 1. Cardiomegaly and emphysema with pulmonary vascular congestion. 2. Small pleural effusions. ACT 112: Negative or not required by law. Electronically signed by: Zaki Brian M.D. 03/01/2023 2:33 PM
[2023-03-01] MEDS: WARFARIN SOD 2.5 MG TAB PO SCH (16:32)
[2023-03-01] MEDS: ACETAMINOPHEN 500 MG TAB PO PRN (19:58)
[2023-03-01] MEDS: METOPROLOL SUCC 50MG EXT REL TAB PO SCH (20:00)
[2023-03-01] MEDS: ALBUT/IPRATROP 3MG/0.5MG NEB 3 ML VIAL NEB PRN (21:13)
[2023-03-01] MEDS: OLANZapine 5 MG TABLET PO SCH (21:24)
[2023-03-01] MEDS: SERTRALINE HCL 50 MG TABLET PO SCH (21:24)
[2023-03-02] MEDS: PIPERACILLIN/TAZOBACTAM 4.5 GM in DEXTROSE 5% MINI-B 100 ML IV SCH ×3 (00:58→15:20)
[2023-03-02 06:14] LABS: Hematocrit (blood only) 21.5 % (37.0-47.0); Hemoglobin 6.8 g/dl (12.0-16.0); Mean Corpuscular Hemoglobin 33.7 pg (25.0-34.0); Mean Corpuscular Hgb Conc 31.6 g/dL (32.0-36.0); Mean Corpuscular Volume 106.4 fL (80.0-100.0); Mean Platelet Volume 10.6 fL (9.4-12.4); Platelet Count 52 K/uL (130-400); RDW Standard Deviation 62.7 fL (36.4-46.3); Red Blood Count 2.02 M/uL (4.20-5.40); White Blood Count 8.24 K/ul (4.8-10.8)
[2023-03-02 06:19] LABS: Albumin Globulin Ratio 1.1 (0.9-2); Albumin Level 2.7 gm/dl (3.4-5.0); BUN Creatinine Ratio 16.9 (10-20); Bilirubin,Total 0.4 mg/dl (0.2-1.0); Calcium 8.2 mg/dl (8.6-10.3); Creatinine Clr Calc Pharmacy 35.4 ml/min; Est GFR (African American) 45.2 ml/min; Globulin 2.4 gm/dl (2.5-4.0); Magnesium 2.3 mg/dl (1.7-2.4); Potassium 4.1 mmol/L (3.5-5.1); Total Protein 5.1 gm/dl (6.0-8.3)
[2023-03-02 06:46] LABS: INR 2.4 (0.9-1.1); Prothrombin Time 25.3 Seconds (9.0-12.0)
[2023-03-02] MEDS ORDERED: SODIUM CHLORIDE 0.9% 250 ML IV PRN (06:47)
[2023-03-02] MEDS ORDERED: FUROSEMIDE INJ 20 MG/2 ML VIAL IV ONE (06:50)
--- NOTE | 2023-03-02 06:52 | Communication Note ---
Date of Service: March 02, 2023 Morning labs Hgb 6.8. Unclear etiology of drop. Patient actually feels better than previous. No obvious signs of active bleeding however she did receive therapeutic anticoagulation yesterday. FOBT ordered. Will go ahead and give 1 unit of blood followed by IV lasix 20mg to reduce risk of volume overload. Blood consent obtained. Repeat H&H at noon. Resident Activity Tracking Resident Involvement: Resident Care Provided Care Provided: Adult [facility] Medicine
--- NOTE | 2023-03-02 07:50 | Hospitalist Progress Note ---
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 MRSA nares negative. Vanco discontinued as ordered on admission Pulmonary toilet Home breztri brought by family last evening Mag replacement, wnl on repeat Given Lovenox SQ x 1 on 02/28 for bridging given subtherapeutic INR (patient w/ prior PE on eliquis, developed DVT now on coumadin). Coumadin 2.5mg daily continued (all days except 5mg Sunday/Sunday) and INR 3.3 on 03/01 CTA for PE not able to be obtained prior to due IV access/blown IVs, did complete VQ scan which did NOT note any segmental perfusion defects 03/02 Hgb to 6.8 despite IV lasix. Cr improved slightly even w/ diuretics. Overnight resident ordered 1u PRBC (discussed w/ heme/onc this morning and recs for 1u PRBC and likely 2nd to chemotherapy -- already have ensured B12/folate wnl, iron studies stable and agreed PRBC) Giving additional 20mg IV lasix with transfusion to prevent volume overload Supplemental O2 to maintain sats -- down to 3L Monitor CBC in AM or sooner if any bleeding. Fecal occult blood ordered for completeness. Increased PPI to BID in meantime (no abdominal pain reported either but is on daily prednisone) (2) Volume overload: Plan: Initial CXR negative for acute process Was given multiple liters IVF on admission for hypotension Previously on HCTZ/triamterene in past but stopped due to hyponatremia and had been on Nacl 1gm TID but now only once daily BNP elevated to 691 ECHO prior w/ EF 35-40%. -Repeat ECHO w/ improvement back to normal EF, wma resolved Had got into afib w/ rates to 120s AM 03/01 w/ VQ scan, however converted back quickly @ 1211am Discussed w/ Dr Das and planned to increase her metoprolol to 50mg BID and will continue to monitor on telemetery (NO FURTHER AFIB/FLUTTER) CXR 03/02 w/ pulmonary vascular congestion --> was given lasix 20mg IV x 1 w/ good response reported Monitor weights, I&Os (wt 70.9kg on admission and appears prior baseline in the 60s) Getting dose of lasix w/ PRBC today, monitor additional dose for AM pending repeat labs/exam (3) UTI (urinary tract infection): Plan: Family reporting darker urine recently, similar to when she's had prior infections. UA obtained, 1+ bacteria, >30WBC, leuk est. Urine cx GNB On zosyn for above, monitor final urine cx/sensitivites Blood cultures remain ngtd WBC trending down, patient appearing much more alert/conversite. per family at bedside appears much improved compared to day prior (4) Sepsis: Plan: Presented with tachypnea, hypotension w/ elevated procal and tachycardia with respiratory acidosis. Lactic wnl She is on chronic steroids w/ prednisone at baseline, unclear if was in/out of afib w/ elevated rates contributing vs other Blood cultures NGTD x 48 hours Per family, foul smelling urine as similar w/ prior UTIs and confusion Urine cx does show GNR, hx klebsiella On Zosyn IV, MRSA nares negative (but do not suspect pneumonia) WBC trending down, afebrile Transition to PO abx to complete course for UTI tomorrow if afebrile/blood cultures remaining NGTD (5) Hypotension: Plan: suspected 2nd to poor PO intake. Lactic 1.6, but see above IV bolus in ER, continued NS thereafter @ 100cc/hr but volume overloaded as above and given lasix 03/01 w/ stable BPs and getting unit of blood today Per heme/onc, suspected drop in hgb 2nd to chemo, 1u PBRC ordered as above Suspect WBC elevation possibly 2nd to UTI however to note she is on prednisone 10mg daily BCx remain NGTD WBC now wnl, continue zosyn/deescalate tomorrow if continued improvement to oral therapy for UTI (6) Small cell lung cancer: Plan: Recent PET scan shows liver metastasis shrinking. Recent neulasta last week Follows with Dr Ceja Concurrent chemoradiation w/ Carbo/Etoposide, completed radiation treatments 12/2021 Had received Iron transfusions over the summer Monitor hgb, suspect drop w/ volume overload but will monitor Can consult Dr Ceja if needed but discussed w/ her AM 03/02 and agreed w/ 1u PRBC and felt 2nd to chemotherapy (7) Breast cancer: Plan: History of ductal cell breast cancer (8) Atrial flutter: Plan: Rate controlled On warfarin, continued and given Lovenox x1 on 02/28 for bridging and INR 3.3 on repeat Continued coumadin 2.5mg daily (5mg 2x/wk as above) and repeat INR 2.4 today. If remains subtherapeutic tomorrow will plan to increase to 3mg daily to prevent subtherapeutic levels/risk for clot in malignancy Episode afib/flutter AM w/ VQ scan 03/01 --> increased metoprolol to BID dosing per discussion w/ Dr Das No further episodes and will monitor on telemetry Keep K/mag replete (9) Shortness of breath: Plan: VQ scan, attempted CT chest for PE but was unable Reports improvement in SOB w/ IV lasix 03/01 and getting PRBC w/ lasix for today. Monitor for need for additional diuretics (prior on triamterene-HCTZ) vs low dose lasix while on chronic steroids Continue home breztri Supplemental O2 to maintain sats -- currently 95% on 3L (10) Paroxysmal atrial fibrillation: Plan: increased metoprolol as above, now in NSR and has remained. (11) Acute kidney injury: Plan: Acute elevation in Cr to 1.38 on 03/01, likely 2nd to contrast for CT attempted Appeared volume overloaded yesterday, CXR w/ vascular congestion and given lasix 20mg IV w/ repeat Cr 1.3 Of note, Na improved w/ lasix as well. Will place AM NaCl on hold and monitor for need to resume Getting unit of PRBC as above w/ additional Lasix to prevent overload Avoid nephrotoxins/renal dose meds as needed BMP in AM (12) Demand ischemia: Plan: Trop elevation suspected 2nd to demand ischemia from hypoxia/respiratory failure on admission No CP reported. ECHO w/o wma. Trended down on repeat (13) Hyponatremia: Plan: chronic issue. 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 Reports decent appetite, ate about 50% of her meal this morning. No blood in urine/stool. Discussed low hgb and discussed w/ Dr Ceja who felt related to chemo and recs for 1u PRBC which is pending transfusion. Breathing reported improved compared to yesterday and stable. No fever/chills. Updated son yesterday, attempted to call daughter this morning but went to [employer]. Questions/concerns addressed at this time. Physical Exam Physical Exam: General: chronically ill appearing female sitting up in bed, more alert/awake today, conversive, mentation approaching baseline, reporting feeling a little better than day prior HEENT: head normocephalic, atraumatic, mmm, trachea midline, +JVD Chest; port to L chest, dressing c/d/i Resp: diminished in the bases, faint expiratory wheeze posteriorly, on 3L NC 95% CV: RRR, no significant m/r/g, 1+ b/l LE edema (left leg reported always more swollen), pulses palpable, calves nontender GI: +BS, soft/NT : no miranda MSK/Neuro: no focal deficits, no slurred speech, answering questions appropriately Psych: alert/oriented to person/place/time, cooperative with exam Results & Data Results & Data Vital Signs (Past 12 Hours) Vital Signs Temp Pulse Pulse Resp BP Pulse Ox O2 Del Method 03/02/23 07:22 36.5 C 75 18 119/62 100 Nasal Cannula 03/02/23 03:01 36.5 C 72 18 114/55 L 100 Nasal Cannula 03/01/23 23:08 36.6 C 72 18 103/52 L 99 Nasal Cannula 03/01/23 23:00 79 03/01/23 21:14 79 18 99 Nasal Cannula 03/01/23 20:00 Nasal Cannula O2 Flow Rate 03/02/23 07:22 3.0 03/02/23 03:01 2 03/01/23 23:08 2 03/01/23 23:00 03/01/23 21:14 3 03/01/23 20:00 3 Laboratory Results 03/02/23 03/02/23 03/01/23 Range/Units 07:28 05:29 05:30 WBC 8.24 (4.8-10.8) K/ul RBC 2.02 L (4.20-5.40) M/uL Hgb 6.8 L* (12.0-16.0) g/dl Hct 21.5 L (37.0-47.0) % MCV 106.4 H (80.0-100.0) fL MCH 33.7 (25.0-34.0) pg MCHC 31.6 L (32.0-36.0) g/dL RDW Std Deviation 62.7 H (36.4-46.3) fL RDW Coeff of Atul 16.0 H (11.5-14.5) % Plt Count 52 L (130-400) K/uL MPV 10.6 (9.4-12.4) fL PT 25.3 H (9.0-12.0) Seconds INR 2.4 H (0.9-1.1) Sodium 138 (136-145) mmol/L Potassium 4.1 (3.5-5.1) mmol/L Chloride 106 (98-107) mmol/L Carbon Dioxide 27 (21-32) mmol/L Anion Gap 5 (3-11) BUN 22 (6-23) mg/dl Creatinine 1.30 H (0.6-1.2) mg/dl Est Cr Clr Drug Dosing 35.4 ml/min Est GFR ( Amer) 45.2 ml/min Est GFR (Non-Af Amer) 39.0 ml/min BUN/Creatinine Ratio 16.9 (10-20) Glucose 85 (70-99(Fasting)) mg/dl Calcium 8.2 L (8.6-10.3) mg/dl Magnesium 2.3 (1.7-2.4) mg/dl Iron 11 L (35-150) mcg/dl TIBC 196 L (250-450) mcg/dl Unsaturated IBC 185 (155-355) mcg/dl Transferrin % Sat 6 L (15-50) % Ferritin 881.8 H (8-388) ng/ml Total Bilirubin 0.4 (0.2-1.0) mg/dl AST 9 L (13-39) U/L ALT 9 (7-52) U/L Alkaline Phosphatase 83 (34-104) U/L Total Protein 5.1 L (6.0-8.3) gm/dl Albumin 2.7 L (3.4-5.0) gm/dl Globulin 2.4 L (2.5-4.0) gm/dl Albumin/Globulin Ratio 1.1 (0.9-2) Blood Type Pending Antibody Screen Pending Crossmatch See Detail Diagnostic Findings Pulmonary Perfusion Imaging 03/01/23 10:30 NUCLEAR MEDICINE PERFUSION STUDY CLINICAL HISTORY: Dyspnea. Evaluate for evidence of pulmonary embolism. COMPARISON STUDY: Chest CT January 11, 2023. Chest radiograph February 28, 2023. Nuclear medicine perfusion study December 26, 2021. TECHNIQUE: 5.1 mCi of technetium 99m MAA was injected IV at 10:36 AM on March 01, 2023. Following injection, imaging of the chest was performed in multiple projections. No ventilation imaging was performed given ventilation precautions. FINDINGS: No segmental defects are identified on this exam. Slight asymmetric diminished perfusion to the left lung is noted. Exam is compromised given lack of ventilation imaging. However, the findings are considered low probability for pulmonary embolus. IMPRESSION: No segmental perfusion defects to strongly suggest pulmonary embolism. ACT 112: Negative or not required by law. Electronically signed by: Sanchez Begum M.D. 03/01/2023 11:19 AM Chest X-Ray 03/01/23 13:32 SINGLE VIEW CHEST CLINICAL HISTORY: Dyspnea FINDINGS: An AP, portable, upright chest radiograph is compared to study dated 02/28/2023. Correlation is made with chest CT dated 01/11/2023. A left subclavian central venous infusion port is unchanged in position. The heart is enlarged and noting atherosclerotic calcification of the thoracic aorta. The mitral annulus density calcified. There is mild pulmonary vascular congestion. Emphysema and chronic interstitial thickening similar to previous. A calcified granuloma is again seen in the left apex. There is bibasilar scarring/atelectasis. Small pleural effusions are suspected. No pneumothorax is seen. The skeletal structu res are osteopenic. The bony thorax is grossly intact. Spondylotic change is noted throughout the spine. IMPRESSION: 1. Cardiomegaly and emphysema with pulmonary vascular congestion. 2. Small pleural effusions. ACT 112: Negative or not required by law. Electronically signed by: Zaki Brian M.D. 03/01/2023 2:33 PM PG Care Time/CCT Total # of Minutes Spent Total Time Spent with Patient: Total time spent is greater than 50% in coordination of care (as documented) at patient's floor/unit and/or counseling patient: Coding Level of Care Code 76375 SUB INP/OBS CARE 3/50MIN Diagnoses Acute hypoxic respiratory failure J96.01 Volume overload E87.70 UTI (urinary tract infection) N39.0 Sepsis A41.9 Hypotension I95.9 Small cell lung cancer C34.90 Breast cancer C50.919 Atrial flutter I48.92 Shortness of breath R06.02 Paroxysmal atrial fibrillation I48.0 Acute kidney injury N17.9 Demand ischemia I24.89 Hyponatremia E87.1
[2023-03-02] MEDS: predniSONE 10 MG TABLET PO SCH (08:44)
[2023-03-02] MEDS: PANTOprazole 40 MG TAB PO SCH ×2 (08:44→19:53)
[2023-03-02] MEDS: SODIUM CHLORIDE 1 GM TABLET PO SCH (08:44)
[2023-03-02] MEDS: BUDESONIDE/GLYCOPYR/FORMOTEROL INHALER INH SCH ×2 (08:44→19:49)
[2023-03-02] MEDS: CHOLECALCIFEROL 1,000 UNITS 25 MCG TAB PO SCH (08:45)
[2023-03-02] MEDS: METOPROLOL SUCC 50MG EXT REL TAB PO SCH ×2 (08:45→19:52)
[2023-03-02] MEDS: VIBEGRON 75 MG TAB PO SCH (08:45)
[2023-03-02] MEDS: DOCUSATE SODIUM/SENNA 50/8.6MG TAB PO SCH (08:45)
[2023-03-02] MEDS: LIDOCAINE 5% 1 PATCH TD SCH (08:45)
[2023-03-02] MEDS: ACETAMINOPHEN 500 MG TAB PO PRN ×2 (08:48→19:50)
[2023-03-02] MEDS: ALBUT/IPRATROP 3MG/0.5MG NEB 3 ML VIAL NEB PRN (12:32)
[2023-03-02] MEDS: FOLIC ACID 1 MG TAB PO SCH (14:15)
[2023-03-02] MEDS: CYANOCOBALAMIN (B-12) 500 MCG TABLET PO SCH (14:15)
[2023-03-02] MEDS ORDERED: POLYETHYLENE (MIRALAX) 17 GM PACK PO PRN (14:18)
[2023-03-02] MEDS: WARFARIN SOD 2.5 MG TAB PO SCH (15:20)
[2023-03-02 16:14] LABS: Hematocrit (blood only) 23.8 % (37.0-47.0); Hemoglobin 7.5 g/dl (12.0-16.0); Mean Corpuscular Hemoglobin 32.8 pg (25.0-34.0); Mean Corpuscular Hgb Conc 31.5 g/dL (32.0-36.0); Mean Corpuscular Volume 103.9 fL (80.0-100.0); Mean Platelet Volume 10.9 fL (9.4-12.4); Nucleated RBC # (auto) 0.02 K/uL (0.00-0.12); Nucleated RBC % (auto) 0.2 %; Platelet Count 54 K/uL (130-400); RDW Coefficient of Variation 16.8 % (11.5-14.5); RDW Standard Deviation 63.6 fL (36.4-46.3); Red Blood Count 2.29 M/uL (4.20-5.40); White Blood Count 11.21 K/ul (4.8-10.8)
[2023-03-02] MEDS: DOCUSATE SODIUM 100 MG CAP PO SCH (19:51)
[2023-03-02] MEDS: SERTRALINE HCL 50 MG TABLET PO SCH (19:52)
[2023-03-02] MEDS: OLANZapine 5 MG TABLET PO SCH (19:53)
[2023-03-03] MEDS: PIPERACILLIN/TAZOBACTAM 4.5 GM in DEXTROSE 5% MINI-B 100 ML IV SCH ×2 (00:26→08:26)
--- NOTE | 2023-03-03 07:44 | Hospitalist Progress Note ---
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 MRSA nares negative. Vanco discontinued as ordered on admission Pulmonary toilet Home breztri brought by family last evening Mag replacement, wnl on repeat Given Lovenox SQ x 1 on 02/28 for bridging given subtherapeutic INR (patient w/ prior PE on Eliquis, developed DVT now on Coumadin). Coumadin 2.5mg daily continued (all days except 5mg Sunday/Sunday) CTA for PE not able to be obtained prior to due IV access/blown IVs VQ scan which did NOT note any segmental perfusion defects 03/02 Hgb to 6.8 despite IV lasix. Cr improved slightly even w/ diuretics. Overnight resident ordered 1u PRBC (discussed w/ heme/onc this morning and recs for 1u PRBC and likely 2nd to chemotherapy -- already have ensured B12/folate wnl, iron studies stable and agreed PRBC) Giving additional 20mg IV lasix with transfusion to prevent volume overload Supplemental O2 to maintain sats -- down to 3L Fecal occult blood ordered for completeness. Increased PPI to BID in meantime (no abdominal pain reported either but is on daily prednisone) 03/03 Updated daughter in room this morning. Did discuss multifactorial, could have had elevated HR/afib in setting of uti/infection as she was asymptomatic, Neulasta injection, nacl use/volume overload, etc Titrated to 2L this morning, asked RN to titrate further as able given 97% to prevent CO2 retention Cr improved w/ PRBC/lasix, 1.5. Suspected anemia from chemo discussed INR 2.8 Continue PPI BID Therapy evaluations pending Discussed possible dc in next 24-48 hours pending status/breathing. Holding off any Lasix for today. (2) Volume overload: Plan: Initial CXR negative for acute process, was given copious IVF on admission for hypotension and on Nacl tablets for hyponatremia w/ volume overload/LE edema on exam and repeat CXR w/ pulmonary edema, BNP elevated 691 Prior on HCTZ/triamterene but stopped from hyponatremia concerns. Weights in December ~66kg, 70.9kg on admit and 78kg following IVF resuscitation (suspect some error on weights though) Was given multiple liters IVF on admission for hypotension ECHO prior w/ EF 35-40%. -Repeat ECHO w/ improvement back to normal EF, wma resolved Was on Nacl TID, now once daily Afib w/ elevated rates AM 03/01, increased BB to BID per cards discussion w/o recurrance Given lasix 03/01 w/ pulmonary congestion, additonal dosing w/ PRBC 03/02 and edema improved, titrated to 2L as above Monitoring for need for low dose lasix, ?20mg PO daily to prevent overload Monitor weights/I&O (3) UTI (urinary tract infection): Plan: Family reported darker urine recently, similar to when she's had prior infections. UA appeared infected, cx w/ ecoli Was on Zosyn for pulm coverage but do not suspect pneumonia process, could have had pneumonitis from recent chemo but volume overload from IVF as above WBC trending down, afebrile Blood cultures remain NGTD Transitioning to Augmentin PO today to complete course given presented w/ respiratory symptoms however no pneumonia on imaging to note. (4) Sepsis: Plan: Presented with tachypnea, hypotension w/ elevated procal and tachycardia with respiratory acidosis. Lactic wnl She is on chronic steroids w/ prednisone at baseline, unclear if was in/out of afib w/ elevated rates contributing vs other Blood cultures NGTD x 48 hours Per family, foul smelling urine as similar w/ prior UTIs and confusion Urine cx does show GNR, hx klebsiella On Zosyn IV, MRSA nares negative (but do not suspect pneumonia) WBC trending down, afebrile Transition to PO abx to complete course for UTI today as above (5) Hypotension: Plan: suspected 2nd to poor PO intake. Lactic 1.6, but see above IV bolus in ER, continued NS thereafter @ 100cc/hr but volume overloaded as above and given lasix 03/01 w/ stable BPs and getting unit of blood today Per heme/onc, suspected drop in hgb 2nd to chemo, 1u PBRC ordered as above Suspect WBC elevation possibly 2nd to UTI however to note she is on prednisone 10mg daily BCx remain NGTD BP 128/61 and stable on metoprolol BID as above Monitor (6) Small cell lung cancer: Plan: Recent PET scan shows liver metastasis shrinking. Recent neulasta last week Follows with Dr Ceja Concurrent chemoradiation w/ Carbo/Etoposide, completed radiation treatments 12/2021 Had received Iron transfusions over the summer Monitor hgb, suspect drop w/ volume overload but will monitor Can consult Dr Ceja if needed but discussed w/ her AM 03/02 and agreed w/ 1u PRBC and felt 2nd to chemotherapy (7) Breast cancer: Plan: History of ductal cell breast cancer (8) Atrial flutter: Plan: Rate controlled On warfarin, continued and given Lovenox x1 on 02/28 for bridging and INR 3.3 on repeat Continued coumadin 2.5mg daily (5mg 2x/wk as above) and repeat INR 2.4 today. If remains subtherapeutic tomorrow will plan to increase to 3mg daily to prevent subtherapeutic levels/risk for clot in malignancy Episode afib/flutter AM w/ VQ scan 03/01 --> increased metoprolol to BID dosing per discussion w/ Dr Das No further episodes and will monitor on telemetry Keep K/mag replete (9) Shortness of breath: Plan: VQ scan, attempted CT chest for PE but was unable Reports improvement in SOB w/ IV lasix 03/01 and further improved/feeling like her baseline today (on 2L) Monitoring for need for low dose diuretic, I did hold her AM Nacl for 03/03 ?stopping home Nacl tablets and encourage improvement in solute intake? Continue home breztri Supplemental O2 to maintain sats -- currently 97% on 2L and RN to titrate (10) Paroxysmal atrial fibrillation: Plan: increased metoprolol as above, now in NSR and has remained. (11) Acute kidney injury: Plan: Acute elevation in Cr to 1.38 on 03/01, likely 2nd to contrast for CT attempted Appeared volume overloaded yesterday, CXR w/ vascular congestion and given lasix 20mg IV w/ repeat Cr 1.3 Of note, Na improved w/ lasix as well. PRBC as above Placed oral salt tablets on hold for today and will monitor Cr 1.15 Avoid nephrotoxins/renal dose meds as needed BMP in AM (12) Demand ischemia: Plan: Trop elevation suspected 2nd to demand ischemia from hypoxia/respiratory failure on admission No CP reported. ECHO w/o wma. Trended down on repeat (13) Hyponatremia: Plan: chronic issue. 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 Feeling better. Still no BM and will have miralax scheduled. Breathing improved, LE edema improved as well. Will hold off any diuretics for now. Discussed plan to switch to PO abx for UTI coverage today. Discussed titrating her oxygen down to prevent over saturation. She notes gentleman in several times when in bathroom but never came back. She is wondering if they are from IV team to flush her port. Questions/concerns addressed at this time. Physical Exam Physical Exam: General: chronically ill appearing female sitting up in bed, more alert/awake today, conversive, mentation approaching baseline, reporting feeling a little better than day prior and daughter at bedside HEENT: head normocephalic, atraumatic, mmm, trachea midline, +JVD Chest; port to L chest, dressing c/d/i Resp: diminished in the bases, but improvement in air entry, no wheezing/crackles, on 2L NC CV: RRR, no significant m/r/g, 1+ b/l LE edema (left leg reported always more swollen), pulses palpable, calves nontender LUE w/ slight swelling from prior infiltrated IV, heating pad in place GI: +BS, slight distension, nontender : no miranda MSK/Neuro: no focal deficits, no slurred speech, answering questions appropriately Psych: alert/oriented to person/place/time, cooperative with exam Results & Data Results & Data Vital Signs (Past 12 Hours) Vital Signs Temp Pulse Pulse Resp BP Pulse Ox O2 Del Method 03/03/23 03:23 36.6 C 70 20 115/49 L 99 Room Air 03/02/23 23:21 36.8 C 75 20 138/76 96 Nasal Cannula 03/02/23 23:00 74 03/02/23 20:00 Nasal Cannula O2 Flow Rate 03/03/23 03:23 2 03/02/23 23:21 2 03/02/23 23:00 03/02/23 20:00 2 Laboratory Results 03/03/23 03/02/23 Range/Units 08:15 15:19 WBC 11.04 H 11.21 H (4.8-10.8) K/ul RBC 2.43 L 2.29 L (4.20-5.40) M/uL Hgb 8.1 L 7.5 L (12.0-16.0) g/dl Hct 25.0 L 23.8 L (37.0-47.0) % MCV 102.9 H 103.9 H (80.0-100.0) fL MCH 33.3 32.8 (25.0-34.0) pg MCHC 32.4 31.5 L (32.0-36.0) g/dL RDW Std Deviation 67.7 H 63.6 H (36.4-46.3) fL RDW Coeff of Atul 18.1 H 16.8 H (11.5-14.5) % Plt Count 57 L 54 L (130-400) K/uL MPV 10.6 10.9 (9.4-12.4) fL Absolute Nucleated RBC 0.02 0.02 (0.00-0.12) K/uL Nucleated RBC % (auto) 0.2 0.2 % PT 28.7 H (9.0-12.0) Seconds INR 2.8 H (0.9-1.1) Sodium 139 (136-145) mmol/L Potassium 4.0 (3.5-5.1) mmol/L Chloride 108 H (98-107) mmol/L Carbon Dioxide 28 (21-32) mmol/L Anion Gap 3 (3-11) BUN 20 (6-23) mg/dl Creatinine 1.15 (0.6-1.2) mg/dl Est Cr Clr Drug Dosing 40.0 ml/min Est GFR ( Amer) 52.4 ml/min Est GFR (Non-Af Amer) 45.2 ml/min BUN/Creatinine Ratio 17.4 (10-20) Glucose 83 (70-99(Fasting)) mg/dl Calcium 8.2 L (8.6-10.3) mg/dl Magnesium 1.9 (1.7-2.4) mg/dl Total Bilirubin 0.5 (0.2-1.0) mg/dl AST 10 L (13-39) U/L ALT 9 (7-52) U/L Alkaline Phosphatase 98 (34-104) U/L Total Protein 5.2 L (6.0-8.3) gm/dl Albumin 2.8 L (3.4-5.0) gm/dl Globulin 2.4 L (2.5-4.0) gm/dl Albumin/Globulin Ratio 1.2 (0.9-2) PG Care Time/CCT Total # of Minutes Spent Total Time Spent with Patient: Total time spent is greater than 50% in coordination of care (as documented) at patient's floor/unit and/or counseling patient: Coding Level of Care Code 86957 SUB INP/OBS CARE 3/50MIN Diagnoses Acute hypoxic respiratory failure J96.01 Volume overload E87.70 UTI (urinary tract infection) N39.0 Sepsis A41.9 Hypotension I95.9 Small cell lung cancer C34.90 Breast cancer C50.919 Atrial flutter I48.92 Shortness of breath R06.02 Paroxysmal atrial fibrillation I48.0 Acute kidney injury N17.9 Demand ischemia I24.89 Hyponatremia E87.1
[2023-03-03] MEDS: PANTOprazole 40 MG TAB PO SCH ×2 (08:26→20:47)
[2023-03-03] MEDS: BUDESONIDE/GLYCOPYR/FORMOTEROL INHALER INH SCH ×2 (08:26→20:45)
[2023-03-03] MEDS: METOPROLOL SUCC 50MG EXT REL TAB PO SCH ×2 (08:26→20:46)
[2023-03-03] MEDS: DOCUSATE SODIUM 100 MG CAP PO SCH ×2 (08:27→20:47)
[2023-03-03] MEDS: predniSONE 10 MG TABLET PO SCH (08:28)
[2023-03-03] MEDS: FOLIC ACID 1 MG TAB PO SCH (08:28)
[2023-03-03] MEDS: CHOLECALCIFEROL 1,000 UNITS 25 MCG TAB PO SCH (08:28)
[2023-03-03] MEDS: DOCUSATE SODIUM/SENNA 50/8.6MG TAB PO SCH (08:28)
[2023-03-03] MEDS: CYANOCOBALAMIN (B-12) 500 MCG TABLET PO SCH (08:28)
[2023-03-03] MEDS: LIDOCAINE 5% 1 PATCH TD SCH (08:29)
[2023-03-03] MEDS: VIBEGRON 75 MG TAB PO SCH (08:30)
[2023-03-03] MEDS: ACETAMINOPHEN 500 MG TAB PO PRN ×3 (08:33→20:44)
[2023-03-03] MEDS: oxyCODONE HCL IR 5 MG TAB (IMMEDIATE RELEASE) PO PRN (08:34)
[2023-03-03 08:45] LABS: Hemoglobin 8.1 g/dl (12.0-16.0); Mean Corpuscular Hemoglobin 33.3 pg (25.0-34.0); Mean Corpuscular Hgb Conc 32.4 g/dL (32.0-36.0); Mean Corpuscular Volume 102.9 fL (80.0-100.0); Mean Platelet Volume 10.6 fL (9.4-12.4); Nucleated RBC # (auto) 0.02 K/uL (0.00-0.12); Nucleated RBC % (auto) 0.2 %; Platelet Count 57 K/uL (130-400); RDW Coefficient of Variation 18.1 % (11.5-14.5); RDW Standard Deviation 67.7 fL (36.4-46.3); Red Blood Count 2.43 M/uL (4.20-5.40); White Blood Count 11.04 K/ul (4.8-10.8)
[2023-03-03 09:00] LABS: Albumin Globulin Ratio 1.2 (0.9-2); Albumin Level 2.8 gm/dl (3.4-5.0); BUN Creatinine Ratio 17.4 (10-20); Bilirubin,Total 0.5 mg/dl (0.2-1.0); Calcium 8.2 mg/dl (8.6-10.3); Est GFR (African American) 52.4 ml/min; Est GFR (Non-African American) 45.2 ml/min; Globulin 2.4 gm/dl (2.5-4.0); Magnesium 1.9 mg/dl (1.7-2.4); Total Protein 5.2 gm/dl (6.0-8.3)
[2023-03-03 09:11] LABS: INR 2.8 (0.9-1.1); Prothrombin Time 28.7 Seconds (9.0-12.0)
[2023-03-03] MEDS ORDERED: bisacodyL 5 MG TABEC PO ONE (15:56)
[2023-03-03] MEDS: POLYETHYLENE (MIRALAX) 17 GM PACK PO SCH (16:17)
[2023-03-03] MEDS: WARFARIN SOD 2.5 MG TAB PO SCH (16:18)
[2023-03-03] MEDS: AMOXICILLIN/CLAVULANATE 875 MG TAB PO SCH (16:41)
[2023-03-03] MEDS ORDERED: cephALEXin 500 MG CAP PO SCH ×2 (17:00)
[2023-03-03] MEDS: OLANZapine 5 MG TABLET PO SCH (20:47)
[2023-03-03] MEDS: SERTRALINE HCL 50 MG TABLET PO SCH (20:48)
[2023-03-04] MEDS ORDERED: METOPROLOL TARTRATE 25 MG TAB PO STA (00:37)
--- NOTE | 2023-03-04 00:46 | Communication Note ---
Date of Service: March 04, 2023 Notified by nurse at 12:27 AM patient returning to [facility] (asymptomatic) since 11:30 PM. Spoke to telemetry, who verified heart rates in the 120s, peaking in the 140s for over an hour. Reviewed patient's MAR, which showed she had received metoprolol succinate 50 mg x 2 doses today. Ordered p.o. metoprolol tartrate 25 mg x 1 dose. HR persisted in the 140s an hour later. BP 103/83. Ordered IV Lopressor 5 mg x doses, 1 g of magnesium. Subsequent HR increased to 130s baseline, with peaks still in the 40s. Ordered loading dose of IV digoxin 250 mcg, with subsequent 125 mcg x 2 doses every 4 hours. Patient conveniently returned to NSR before loading dose of digoxin was given. As of end of shift, she remains in NSR.
[2023-03-04] MEDS ORDERED: MAGNESIUM SULFATE / D5W 1 GM/100 ML BAG IV ONE (01:30)
[2023-03-04] MEDS: METOPROLOL TARTRATE 1 MG/ML VIAL IV PRN ×3 (01:33→02:28)
[2023-03-04] MEDS ORDERED: DIGOXIN 250 MCG in SYRINGE 9 ML IV ONE (03:30)
[2023-03-04] MEDS: ALBUT/IPRATROP 3MG/0.5MG NEB 3 ML VIAL NEB PRN (05:46)
[2023-03-04 07:16] LABS: Basophils # (auto) 0.07 K/uL (0.00-0.20); Basophils % (auto) 0.5 %; Eosinophils # (auto) 0.02 K/uL (0.00-0.50); Eosinophils % (auto) 0.1 %; Hematocrit (blood only) 28.8 % (37.0-47.0); Hemoglobin 9.2 g/dl (12.0-16.0); Immature Granulocytes # (auto) 0.49 K/uL (0.01-0.20); Immature Granulocytes % (auto) 3.2 %; Mean Corpuscular Hemoglobin 33.1 pg (25.0-34.0); Mean Corpuscular Hgb Conc 31.9 g/dL (32.0-36.0); Mean Corpuscular Volume 103.6 fL (80.0-100.0); Mean Platelet Volume 10.2 fL (9.4-12.4); Monocytes # (auto) 1.15 K/uL (0.11-0.59); Monocytes % (auto) 7.5 %; Neutrophils # (auto) 13.23 K/uL (1.40-6.50); Neutrophils % (auto) 86.7 %; Nucleated RBC # (auto) 0.02 K/uL (0.00-0.12); Nucleated RBC % (auto) 0.1 %; Platelet Count 79 K/uL (130-400); RDW Coefficient of Variation 17.5 % (11.5-14.5); RDW Standard Deviation 67.5 fL (36.4-46.3); Red Blood Count 2.78 M/uL (4.20-5.40); White Blood Count 15.26 K/ul (4.8-10.8)
[2023-03-04 07:36] LABS: Albumin Globulin Ratio 1.2 (0.9-2); Albumin Level 3.1 gm/dl (3.4-5.0); BUN Creatinine Ratio 18.8 (10-20); Bilirubin,Total 0.5 mg/dl (0.2-1.0); Calcium 8.5 mg/dl (8.6-10.3); Creatinine Clr Calc Pharmacy 47.9 ml/min; Est GFR (African American) 65.2 ml/min; Est GFR (Non-African American) 56.2 ml/min; Globulin 2.6 gm/dl (2.5-4.0); Magnesium 1.9 mg/dl (1.7-2.4); Potassium 3.8 mmol/L (3.5-5.1); Total Protein 5.7 gm/dl (6.0-8.3)
--- NOTE | 2023-03-04 07:39 | Hospitalist Progress Note ---
Date of Service March 04, 2023 Assessment & Plan (1) Acute hypoxic respiratory failure: Plan: Acute on chronic hypoxic respiratory failure: Patient at baseline uses 1 L of oxygen at home however presented to hospital with shortness of breath and requiring 4L to maintain saturations. 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 MRSA nares negative. Vanco discontinued as ordered on admission Pulmonary toilet Home breztri brought by family last evening Mag replacement, wnl on repeat Given Lovenox SQ x 1 on 02/28 for bridging given subtherapeutic INR (patient w/ prior PE on Eliquis, developed DVT now on Coumadin). Coumadin 2.5mg daily continued (all days except 5mg Sunday/Sunday) CTA for PE not able to be obtained prior to due IV access/blown IVs VQ scan which did NOT note any segmental perfusion defects 03/02 Hgb to 6.8 despite IV lasix. Cr improved slightly even w/ diuretics. Overnight resident ordered 1u PRBC (discussed w/ heme/onc this morning and recs for 1u PRBC and likely 2nd to chemotherapy -- already have ensured B12/folate wnl, iron studies stable and agreed PRBC) Giving additional 20mg IV lasix with transfusion to prevent volume overload Supplemental O2 to maintain sats -- down to 3L Fecal occult blood ordered for completeness. Increased PPI to BID in meantime (no abdominal pain reported either but is on daily prednisone) 03/03 Updated daughter in room this morning. Did discuss multifactorial, could have had elevated HR/afib in setting of uti/infection as she was asymptomatic, Neulasta injection, nacl use/volume overload, etc Titrated to 2L this morning, asked RN to titrate further as able given 97% to prevent CO2 retention Cr improved w/ PRBC/lasix, 1.5. Suspected anemia from chemo discussed INR 2.8 Continue PPI BID Therapy evaluations pending Discussed possible dc in next 24-48 hours pending status/breathing. Holding off any Lasix for today. 03/04 --> episode of Afib/RVR overnight w/ rates to 140s. Was given IV magnesium/Metoprolol tartrate 25mg PO x 1 followed by 3 doses 5mg IV lopressor and before digoxin provided patient converted back Continue to monitor on telemetry WBC elevation however could be peak from 6 days following neulasta injection. 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 5mg 2x/wk, 2.5mg all other days Elevated HR/afib to 140s overnight, given additional metoprolol tartrate 25mg PO x 1, lopressor 5mg x 3 doses and converted to NSR 330am 03/04 Changed duonebs to atrovent alone Discussed w/ patient and daughter and wanting to monitor overnight/reach out to cards in AM if needed Keep K/mag replete (3) Volume overload: Plan: Initial CXR negative for acute process, was given copious IVF on admission for hypotension and on Nacl tablets for hyponatremia w/ volume overload/LE edema on exam and repeat CXR w/ pulmonary edema, BNP elevated 691 Prior on HCTZ/triamterene but stopped from hyponatremia concerns. Weights in December ~66kg, 70.9kg on admit and 78kg following IVF resuscitation (suspect some error on weights though) Was given multiple liters IVF on admission for hypotension ECHO prior w/ EF 35-40%. -Repeat ECHO w/ improvement back to normal EF, wma resolved Was on Nacl TID, recently down to 1gm daily Afib w/ elevated rates 11/2, increased metoprolol to BID per discussion w/ cardiology CXR w/ pulm congestion, IV lasix x 1 and additional w/ PRBC as above STOPPED NACL tablets, repeat BNP doubled but down to baseline 1L and LE edema stable and Na wnl on check. Changed duonebs to atrovent alone to prevent elevated HR/afib -- consider new rx at dc per discussion w/ family Monitor for low dose lasix but will hold off for now Monitor weights/I&Os (4) UTI (urinary tract infection): Plan: Family reported darker urine recently, similar to when she's had prior infections. UA appeared infected, cx w/ ecoli Was on Zosyn for pulm coverage but do not suspect pneumonia process, could have had pneumonitis from recent chemo but volume overload from IVF as above WBC trending down, afebrile Blood cultures remain NGTD Switched to Augmentin PO 03/03 and will complete course (covering for resp but no evidence for pneumonia) (5) Sepsis: Plan: Presented with tachypnea, hypotension w/ elevated procal and tachycardia with respiratory acidosis. Lactic wnl On chronic steroids prednisone 10mg daily Blood cx NGTD Urine cx w/ Klebsiella, was on Zosyn for pulm coverage as above Switched to AUgmentin to complete course as discussed w/ supervising provider 03/03 (6) Hypotension: Plan: suspected 2nd to poor PO intake. Lactic 1.6, but see above IV bolus in ER, continued NS thereafter @ 100cc/hr but volume overloaded as above and given lasix 11/2 w/ stable BPs and PRBC last week (per heme/onc discussion, suspected drop 2nd to chemo) BP 129/68 and stable on increased dose of metoprolol (7) Small cell lung cancer: Plan: Recent PET scan shows liver metastasis shrinking. Recent neulasta last week Follows with Dr Ceja Concurrent chemoradiation w/ Carbo/Etoposide, completed radiation treatments 12/2021 Had received Iron transfusions over the summer Monitor hgb, suspect drop w/ volume overload but will monitor Can consult Dr Ceja if needed but discussed w/ her AM 113 and agreed w/ 1u PRBC and felt 2nd to chemotherapy (8) Breast cancer: Plan: History of ductal cell breast cancer (9) Shortness of breath: Plan: VQ scan, attempted CT chest for PE but was unable Reports improvement in SOB w/ IV lasix 11/2 and further improved/feeling like her baseline today (on 2L) Monitoring for need for low dose diuretic, I did hold her AM Nacl for 03/03 and Na stable at 140 off of such and will continue to monitor off of such Continues home dora, switched duonebs to atrovent as needed to prevent tachycardia/afib Shortness of breath MUCH improved, down to her usual 1L NC at baseline, sat 92% (10) Acute kidney injury: Plan: Acute elevation in Cr to 1.38 on 03/01, likely 2nd to contrast for CT attempted Appeared volume overloaded yesterday, CXR w/ vascular congestion and given lasix 20mg IV w/ repeat Cr 1.3 PRBC as above Placed oral salt tablets on hold (03/03-03/04) and Na stable, Cr improved Of note, Na improved w/ lasix as well. Monitor for need for low dose lasix Cr 0.96 Avoid nephrotoxins/renal dose meds as needed BMP in AM (11) Demand ischemia: Plan: Trop elevation suspected 2nd to demand ischemia from hypoxia/respiratory failure on admission ECHO w/o wma, EF improved compared to priors. Trended down on repeat No CP reported. (12) Hyponatremia: Plan: chronic issue. 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 Discussed w/ family less free water and more gatorade/etc when taking in fluids for hydration Plan hopeful dc tomorrow 03/05 if no issues on telemetry overnight Admission and Anticipated Discharge Date Admission Date: February 28, 2023 Supervising Physician Co-Signing Physician Notes The patient was not seen by me. The chart was reviewed. Case discussed with JESUS Johnson. Agree with assessment and plan Subjective Evaluated this morning, family at bedside. Doing better. Had eventful night overnight with afib but asymptomatic and converted back this morning around 330am. Reports using duoneb at home, but discussed likely more benefit w/ just Atrovent alone to prevent tachycardia/afib. +BM x 2 this morning. Feeling much better and to her usual 1L. Edema stable/baseline and sodium stable OFF her salt tablets. Discussed w/ patient and daughter Mei and would be more comfortable monitorin g overnight tonight for any issues on monitor but if stable/no issues overnight will plan for discharge tomorrow. Questions/concerns addressed at this time. Physical Exam Physical Exam: General: 77yo female, chronically ill appearing, sitting up in bed, family at bedside, appears much improved HEENT: head atraumatic, normocephalic, mmm, trachea midline Chest; port to L chest, dressing c/d/i Resp; even/unlabored, no significant w/c/r, on 1L NC (baseline) CV: RRR, no significant m/r/g, trace pedal edema, calves nontender GI: +BS, soft/NT : no miranda MSK/Neuro: no focal deficits, no slurred speech, answering questions appropriately Psych: alert/oriented to person/place/time, cooperative with exam Results & Data Results & Data Vital Signs (Past 12 Hours) Vital Signs Temp Pulse Pulse Resp BP BP Pulse Ox 03/04/23 07:25 36.9 C 81 18 130/64 100 03/04/23 05:47 83 20 90 03/04/23 03:50 76 03/04/23 02:43 125 H 107/75 03/04/23 02:28 135 H 112/75 03/04/23 02:12 132 H 120/74 03/04/23 01:57 EST 133 H 113/78 03/04/23 01:48 EST 125 H 100/75 03/04/23 01:33 EST 131 H 114/74 03/04/23 01:53 EDT 140 H 103/83 03/04/23 01:25 EDT 133 H 132/84 03/04/23 00:43 136 H 110/82 03/03/23 23:54 36.5 C 109 H 17 130/76 95 03/03/23 23:52 67 O2 Del Method O2 Flow Rate 03/04/23 07:25 Nasal Cannula 1 03/04/23 05:47 Nasal Cannula 3 03/04/23 03:50 03/04/23 02:43 03/04/23 02:28 03/04/23 02:12 03/04/23 01:57 EST 03/04/23 01:48 EST 03/04/23 01:33 EST 03/04/23 01:53 EDT 03/04/23 01:25 EDT 03/04/23 00:43 03/03/23 23:54 Nasal Cannula 1 03/03/23 23:52 PG Care Time/CCT Total # of Minutes Spent Total Time Spent with Patient: Total time spent is greater than 50% in coordination of care (as documented) at patient's floor/unit and/or counseling patient: Coding Level of Care Code 03661 SUB INP/OBS CARE 3/50MIN Diagnoses Acute hypoxic respiratory failure J96.01 Atrial flutter I48.92 Volume overload E87.70 UTI (urinary tract infection) N39.0 Sepsis A41.9 Hypotension I95.9 Small cell lung cancer C34.90 Breast cancer C50.919 Shortness of breath R06.02 Acute kidney injury N17.9 Demand ischemia I24.89 Hyponatremia E87.1
[2023-03-04 07:56] LABS: Prothrombin Time 30.5 Seconds (9.0-12.0)
[2023-03-04] MEDS ORDERED: DIGOXIN 125 MCG in SYRINGE 9.5 ML IV SCH (08:00)
[2023-03-04] MEDS: FOLIC ACID 1 MG TAB PO SCH (09:47)
[2023-03-04] MEDS: METOPROLOL SUCC 50MG EXT REL TAB PO SCH ×2 (09:47→20:37)
[2023-03-04] MEDS: CYANOCOBALAMIN (B-12) 500 MCG TABLET PO SCH (09:47)
[2023-03-04] MEDS: PANTOprazole 40 MG TAB PO SCH ×2 (09:47→20:38)
[2023-03-04] MEDS: predniSONE 10 MG TABLET PO SCH (09:48)
[2023-03-04] MEDS: DOCUSATE SODIUM 100 MG CAP PO SCH ×2 (09:48→20:37)
[2023-03-04] MEDS: CHOLECALCIFEROL 1,000 UNITS 25 MCG TAB PO SCH (09:48)
[2023-03-04] MEDS: VIBEGRON 75 MG TAB PO SCH (09:48)
[2023-03-04] MEDS: BUDESONIDE/GLYCOPYR/FORMOTEROL INHALER INH SCH ×2 (09:48→20:41)
[2023-03-04] MEDS: AMOXICILLIN/CLAVULANATE 875 MG TAB PO SCH ×2 (09:48→17:22)
[2023-03-04] MEDS: LIDOCAINE 5% 1 PATCH TD SCH (09:49)
[2023-03-04] MEDS: MAGNESIUM OXIDE 400 MG TAB PO SCH (09:49)
[2023-03-04] MEDS: ACETAMINOPHEN 500 MG TAB PO PRN ×2 (09:49→20:40)
[2023-03-04] MEDS: oxyCODONE HCL IR 5 MG TAB (IMMEDIATE RELEASE) PO PRN (09:50)
[2023-03-04] MEDS: POLYETHYLENE (MIRALAX) 17 GM PACK PO SCH (09:52)
[2023-03-04] MEDS: DOCUSATE SODIUM/SENNA 50/8.6MG TAB PO SCH (09:52)
[2023-03-04] MEDS: WARFARIN SOD 2.5 MG TAB PO SCH (17:22)
[2023-03-04] MEDS: SERTRALINE HCL 50 MG TABLET PO SCH (20:38)
[2023-03-04] MEDS: OLANZapine 5 MG TABLET PO SCH (20:39)
--- NOTE | 2023-03-04 22:42 | Electrocardiogram Report ---
Test Reason : Blood Pressure : / mmHG Vent. Rate : 130 BPM Atrial Rate : 144 BPM P-R Int : 000 ms QRS Dur : 102 ms QT Int : 320 ms P-R-T Axes : 000 -56 035 degrees QTc Int : 470 ms Poor data quality, interpretation may be adversely affected Atrial fibrillation with rapid ventricular response Incomplete right bundle branch block Left anterior fascicular block Abnormal ECG When compared with ECG of 28-FEB-2023 05:07, Atrial fibrillation has replaced Sinus rhythm Vent. rate has increased BY 46 BPM Confirmed by Quinton De Souza ([id number]) on 03/04/2023 10:41:29 PM Referred By: REFERRED SELF Confirmed By:Quinton De Souza
[2023-03-05] MEDS: oxyCODONE HCL IR 5 MG TAB (IMMEDIATE RELEASE) PO PRN (05:05)
[2023-03-05] MEDS: IPRATROPIUM BROMIDE NEB SOLN 0.02% 2.5 ML VIAL NEB PRN ×2 (05:12→10:56)
[2023-03-05] MEDS: HEPARIN 100 UNIT/ML 5ML FLUSH FLUSH PRN (05:40)
--- NOTE | 2023-03-05 07:27 | Hospitalist Progress Note ---
Date of Service March 05, 2023 Assessment & Plan (1) Acute hypoxic respiratory failure: Plan: Acute on chronic hypoxic respiratory failure: Patient at baseline uses 1 L of oxygen at home however presented to hospital with shortness of breath and requiring 4L to maintain saturations. 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 MRSA nares negative. Vanco discontinued as ordered on admission Pulmonary toilet Home breztri brought by family last evening Mag replacement, wnl on repeat Given Lovenox SQ x 1 on 02/28 for bridging given subtherapeutic INR (patient w/ prior PE on Eliquis, developed DVT now on Coumadin). Coumadin 2.5mg daily continued (all days except 5mg Sunday/Sunday) CTA for PE not able to be obtained prior to due IV access/blown IVs VQ scan which did NOT note any segmental perfusion defects 03/02 Hgb to 6.8 despite IV lasix. Cr improved slightly even w/ diuretics. Overnight resident ordered 1u PRBC (discussed w/ heme/onc this morning and recs for 1u PRBC and likely 2nd to chemotherapy -- already have ensured B12/folate wnl, iron studies stable and agreed PRBC) Giving additional 20mg IV lasix with transfusion to prevent volume overload Supplemental O2 to maintain sats -- down to 3L Fecal occult blood ordered for completeness. Increased PPI to BID in meantime (no abdominal pain reported either but is on daily prednisone) 03/03 Updated daughter in room this morning. Did discuss multifactorial, could have had elevated HR/afib in setting of uti/infection as she was asymptomatic, Neulasta injection, nacl use/volume overload, etc Titrated to 2L this morning, asked RN to titrate further as able given 97% to prevent CO2 retention Cr improved w/ PRBC/lasix, 1.5. Suspected anemia from chemo discussed INR 2.8 Continue PPI BID Therapy evaluations pending Discussed possible dc in next 24-48 hours pending status/breathing. Holding off any Lasix for today. 03/04 --> episode of Afib/RVR overnight w/ rates to 140s. Was given IV magnesium/Metoprolol tartrate 25mg PO x 1 followed by 3 doses 5mg IV lopressor and before digoxin provided patient converted back Continue to monitor on telemetry WBC elevation however could be peak from 6 days following neulasta injection. Hgb stable 9.2, plt 92 Chemistries w/ normal sodium, potassium, BUN/Cr 18/0.96 Coag reviewed, INR 3.0 and in range 100% on 1L NC at present 03/05 -- reporting LLQ pain overnight, WBC wnl and afebrile on morning labs prn oxycodone provided and patient reporting large loose BM w/ improvement in pain after having bowel movement but reported ongoing discomfort. Hx diverticulosis and diverticulitis in the past but reports this does not feel similar. Urinary symptoms improved. WBC wnl and afebrile. Patient wanting to AVOID any CT for eval but was agreeable to [facility] for eval. Bladder scan to r/o retention CXR w/ cardiomegaly w/o CHF but noting small pleural effusions. W/ her gut edema/LE edema will attempt lasix 40mg IV x 1 and monitor response. Continue pain control and bowel regimen. Patient w/ low mag as well and could be contributing to cramping and IV replacement ordered and started PO supplementation and will consider increasing to BID. Suspect this may also assist w/ keeping her bowels more regular. Will hold off further miralax. (2) Atrial flutter: Plan: hx paroxysmal afib, NSR on admission w/ PVC and fusion complexes On metoprolol succinate 50mg daily [employer] On warfarin, continued and given Lovenox x1 on 02/28 for bridging Episode afib/flutter AM w/ VQ scan 03/01 --> increased metoprolol to BID dosing per discussion w/ Dr Das VQ scan negative Continue usual coumadin dosing, INR 3.0 on AM labs and stable. 5mg 2x/wk, 2.5mg all other days Elevated HR/afib to 140s 03/04, given additional metoprolol tartrate 25mg PO x 1, lopressor 5mg x 3 doses and converted to NSR 330am 03/04 Changed duonebs to atrovent alone to prevent tachycardia/issues INR 3.5 on am labs No further episodes of afib overnight. Keeping k/mag replete Will continue to monitor on telemetry --> plan to dc on BID dosing of her metoprolol as increased during inpatient stay (3) Volume overload: Plan: Initial CXR negative for acute process, was given copious IVF on admission for hypotension and on Nacl tablets for hyponatremia w/ volume overload/LE edema on exam and repeat CXR w/ pulmonary edema, BNP elevated 691 Prior on HCTZ/triamterene but stopped from hyponatremia concerns. Weights in December ~66kg, 70.9kg on admit and 78kg following IVF resuscitation (suspect some error on weights though) Was given multiple liters IVF on admission for hypotension ECHO prior w/ EF 35-40%. -Repeat ECHO w/ improvement back to normal EF, wma resolved Was on Nacl TID, recently down to 1gm daily Afib w/ elevated rates 03/01, increased metoprolol to BID per discussion w/ cardiology CXR w/ pulm congestion, IV lasix x 1 and additional w/ PRBC as above STOPPED NACL tablets, repeat BNP doubled but down to baseline 1L and LE edema stable and Na wnl on check. Changed duonebs to atrovent alone to prevent elevated HR/afib -- consider new rx at dc per discussion w/ family Lasix 40mg IV x 1 for 03/05 and will monitor response. Would HOLD OFF FURTHER NACL supplementation as has been stable off of this Monitor weights/output (4) UTI (urinary tract infection): Plan: Family reported darker urine recently, similar to when she's had prior infections. UA appeared infected, cx w/ ecoli Was on Zosyn for pulm coverage but do not suspect pneumonia process, could have had pneumonitis from recent chemo but volume overload from IVF as above WBC trending down, afebrile Blood cultures remain NGTD Switched to Augmentin PO 03/03 and will complete course (covering for resp but no evidence for pneumonia). Was on Zosyn from 02/28 - 03/03 and transitioned to Augmentin PM 03/03 (day 6 of treatment, can dc after 7 days) reports decreased burning since abx, WBC now wnl (5) Sepsis: Plan: Presented with tachypnea, hypotension w/ elevated procal and tachycardia with respiratory acidosis. Lactic wnl On chronic steroids prednisone 10mg daily Blood cx NGTD Urine cx w/ Klebsiella, was on Zosyn for pulm coverage as above Switched to AUgmentin to complete course as discussed w/ supervising provider 03/03 (6) Hypotension: Plan: suspected 2nd to poor PO intake. Lactic 1.6, but see above IV bolus in ER, continued NS thereafter @ 100cc/hr but volume overloaded as above and given lasix 112 w/ stable BPs and PRBC last week (per heme/onc discussion, suspected drop 2nd to chemo) BP 130/55 and stable on increased dose of metoprolol which will be continued (7) Small cell lung cancer: Plan: Recent PET scan shows liver metastasis shrinking. Recent neulasta last week Follows with Dr Ceja Concurrent chemoradiation w/ Carbo/Etoposide, completed radiation treatments 12/2021 Had received Iron transfusions over the summer Monitor hgb, suspect drop w/ volume overload but will monitor Can consult Dr Ceja if needed but discussed w/ her AM 03/02 and agreed w/ 1u PRBC and felt 2nd to chemotherapy Of note, patient declined having issue w/ chemo in past when she DID NOT get neulasta, possible she may need this held in f/u with [facility] (8) Breast cancer: Plan: History of ductal cell breast cancer (9) Shortness of breath: Plan: VQ scan, attempted CT chest for PE but was unable Reports improvement in SOB w/ IV lasix 03/01 and further improved/feeling like her baseline today (on 2L) Continues home breztri, switched duonebs to atrovent as needed to prevent tachycardia/afib Monitoring for need for low dose diuretic, I did hold her AM Nacl for 03/03 and Na stable at 140 off of such and will continue to monitor off of such --> has been requesting nebs despite adequate O2 sat on her usual 1L and ordered 40mg IV lasix x 1 and will monitor consider low dose PO lasix at dc pending response (10) Acute kidney injury: Plan: Acute elevation in Cr to 1.38 on 03/01, likely 2nd to contrast for CT attempted Appeared volume overloaded yesterday, CXR w/ vascular congestion and given lasix 20mg IV w/ repeat Cr 1.3 PRBC as above Placed oral salt tablets on hold (03/03-03/04) and Na stable w improved Cr Of note, Na improved w/ lasix as well. Cr to baseline and monitoring response to diuretics as above Avoid nephrotoxins/renal dose meds as needed BMP in AM (11) Demand ischemia: Plan: Trop elevation suspected 2nd to demand ischemia from hypoxia/respiratory failure on admission ECHO w/o wma, EF improved compared to priors. Trended down on repeat No CP reported. (12) Hyponatremia: Plan: chronic issue. 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 Discussed w/ family less free water and more gatorade/etc when taking in fluids for hydration Diuretics as above and monitor response Plan monitoring abdominal pain, response to diuretics possible dc 03/06 Admission and Anticipated Discharge Date Admission Date: February 28, 2023 Subjective Eval this morning, on bed pain. Reported LLQ pain overnight, improvement w/ BM but still painful. More along her L side but also some suprapubic tenderness/burning w/ urination but reports prior tx for UTI w/ long time for that to resolve. She does note hx of diverticulosis and has had episode of diverticulitis in the past but reports this feels differently and that she had extreme pain/nausea/vomiting with that in the past. Discussed imaging to ensure no further infection, she notes she DOES NOT want a cat scan but is agreeable to x-ray. WBC normalized/afebrile but will check cdiff given antibiotic use as well. Called daughter janis to update/discuss and left voicemail. Questions/concerns addressed at this time. Physical Exam Physical Exam: General: 77yo female, chronically ill appearing, sitting up in bed, reporting lower abdominal discomfort, currently on the bedpain HEENT: head atraumatic, normocephalic, mmm, trachea midline Chest; port to L chest, dressing c/d/i Resp; even/unlabored, but slightly reduced in the bases, no w/c, on 1L and getting nebulizer treatment CV: RRR, no significant m/r/g, 1+ pedal edema, calves nontender GI: +BS, soft/NT : no miranda MSK/Neuro: no focal deficits, no slurred speech, answering questions appropriately Psych: alert/oriented to person/place/time, cooperative with exam Results & Data Results & Data Vital Signs (Past 12 Hours) Vital Signs Temp Pulse Pulse Resp BP Pulse Ox O2 Del Method 03/05/23 07:08 36.5 C 69 18 144/63 H 97 Nasal Cannula 03/05/23 05:20 159/70 H 03/05/23 05:12 72 18 92 Nasal Cannula 03/05/23 03:44 36.6 C 60 18 160/76 H 96 Nasal Cannula 03/04/23 23:40 149/80 H 03/04/23 23:18 36.9 C 64 18 96 Nasal Cannula 03/04/23 23:05 68 03/04/23 20:00 Nasal Cannula 03/04/23 19:38 37 C 71 17 120/63 95 Nasal Cannula O2 Flow Rate 03/05/23 07:08 1 03/05/23 05:20 03/05/23 05:12 03/05/23 03:44 1 03/04/23 23:40 03/04/23 23:18 1 03/04/23 23:05 03/04/23 20:00 1 03/04/23 19:38 1 Laboratory Results 03/05/23 03/05/23 Range/Units 05:35 05:32 WBC 10.11 (4.8-10.8) K/ul RBC 2.57 L (4.20-5.40) M/uL Hgb 8.5 L (12.0-16.0) g/dl Hct 26.1 L (37.0-47.0) % MCV 101.6 H (80.0-100.0) fL MCH 33.1 (25.0-34.0) pg MCHC 32.6 (32.0-36.0) g/dL RDW Std Deviation 62.2 H (36.4-46.3) fL RDW Coeff of Atul 16.8 H (11.5-14.5) % Plt Count 87 L (130-400) K/uL MPV 10.9 (9.4-12.4) fL Immature Gran % (Auto) 4.7 % Neut % (Auto) 82.9 % Lymph % (Auto) 3.6 % [place] % (Auto) 8.0 % Eos % (Auto) 0.4 % Baso % (Auto) 0.4 % Neut # (Auto) 8.38 H (1.40-6.50) K/uL Lymph # (Auto) 0.36 L (1.20-3.40) K/uL [place] # (Auto) 0.81 H (0.11-0.59) K/uL Eos # (Auto) 0.04 (0.00-0.50) K/uL Baso # (Auto) 0.04 (0.00-0.20) K/uL Immature Gran # (Auto) 0.48 H (0.01-0.20) K/uL PT 35.3 H (9.0-12.0) Seconds INR 3.5 H (0.9-1.1) Sodium 142 (136-145) mmol/L Potassium 3.7 (3.5-5.1) mmol/L Chloride 108 H (98-107) mmol/L Carbon Dioxide 30 (21-32) mmol/L Anion Gap 4 (3-11) BUN 17 (6-23) mg/dl Creatinine 0.89 (0.6-1.2) mg/dl Est Cr Clr Drug Dosing 51.7 ml/min Est GFR ( Amer) 71.4 ml/min Est GFR (Non-Af Amer) 61.6 ml/min BUN/Creatinine Ratio 19.1 (10-20) Glucose 72 (70-99(Fasting)) mg/dl Calcium 8.1 L (8.6-10.3) mg/dl Magnesium 1.6 L (1.7-2.4) mg/dl Total Bilirubin 0.5 (0.2-1.0) mg/dl AST 13 (13-39) U/L ALT 10 (7-52) U/L Alkaline Phosphatase 104 (34-104) U/L Total Protein 5.1 L (6.0-8.3) gm/dl Albumin 2.9 L (3.4-5.0) gm/dl Globulin 2.2 L (2.5-4.0) gm/dl Albumin/Globulin Ratio 1.3 (0.9-2) Diagnostic Findings KUB X-Ray 03/05/23 11:12 KUB HISTORY: Acute generalized abdominal pain abdominal pain COMPARISON: PET/CT 02/08/2023 FINDINGS: Chronic left hemidiaphragmatic elevation. Left colonic air-fluid levels are noted. Nonobstructive bowel gas pattern. Mild colonic fecal retention. No renal calculi. No ureteral calculi. No pneumoperitoneum or pneumatosis. Degenerative changes of the spine, pelvis and hips. No fracture. IMPRESSION: Nonobstructive bowel gas pattern. ACT 112: Negative or not required by law. The above report was generated using voice recognition software. It may contain grammatical, syntax or spelling errors. Electronically signed by: Christian Salas M.D. 03/05/2023 12:04 PM Chest X-Ray 03/05/23 11:24 SINGLE VIEW CHEST CLINICAL HISTORY: Dyspnea FINDINGS: An AP, portable, upright chest radiograph is compared to study dated 03/01/2023. A left subclavian central venous infusion port is unchanged in position. The heart is enlarged noting atherosclerotic calcification of the thoracic aorta. The mitral annulus is densely calcified. The pulmonary vasculature is noncongested. There is chronic elevation of left hemidiaphragm. There are small pleural effusions with dependent consolidation. A calcific granuloma is again seen in the left upper lung. No pneumothorax is seen. The skeletal structures are osteopenic. The bony thorax is grossly intact. IMPRESSION: 1. Cardiomegaly without radiographic evidence of congestive failure. 2. Small pleural effusions with dependent consolidation. ACT 112: Negative or not required by law. Electronically signed by: Zaki Brian M.D. 03/05/2023 12:09 PM PG Care Time/CCT Total # of Minutes Spent Total Time Spent with Patient: Total time spent is greater than 50% in coordination of care (as documented) at patient's floor/unit and/or counseling patient: Coding Level of Care Code 91922 SUB INP/OBS CARE 3/50MIN Diagnoses Acute hypoxic respiratory failure J96.01 Atrial flutter I48.92 Volume overload E87.70 UTI (urinary tract infection) N39.0 Sepsis A41.9 Hypotension I95.9 Small cell lung cancer C34.90 Breast cancer C50.919 Shortness of breath R06.02 Acute kidney injury N17.9 Demand ischemia I24.89 Hyponatremia E87.1
[2023-03-05 07:29] LABS: INR 3.5 (0.9-1.1); Prothrombin Time 35.3 Seconds (9.0-12.0)
[2023-03-05 08:05] LABS: Albumin Globulin Ratio 1.3 (0.9-2); Albumin Level 2.9 gm/dl (3.4-5.0); BUN Creatinine Ratio 19.1 (10-20); Basophils # (auto) 0.04 K/uL (0.00-0.20); Basophils % (auto) 0.4 %; Bilirubin,Total 0.5 mg/dl (0.2-1.0); Calcium 8.1 mg/dl (8.6-10.3); Creatinine Clr Calc Pharmacy 51.7 ml/min; Eosinophils # (auto) 0.04 K/uL (0.00-0.50); Eosinophils % (auto) 0.4 %; Est GFR (African American) 71.4 ml/min; Est GFR (Non-African American) 61.6 ml/min; Globulin 2.2 gm/dl (2.5-4.0); Hematocrit (blood only) 26.1 % (37.0-47.0); Hemoglobin 8.5 g/dl (12.0-16.0); Immature Granulocytes # (auto) 0.48 K/uL (0.01-0.20); Immature Granulocytes % (auto) 4.7 %; Lymphocytes # (auto) 0.36 K/uL (1.20-3.40); Lymphocytes % (auto) 3.6 %; Magnesium 1.6 mg/dl (1.7-2.4); Mean Corpuscular Hemoglobin 33.1 pg (25.0-34.0); Mean Corpuscular Hgb Conc 32.6 g/dL (32.0-36.0); Mean Corpuscular Volume 101.6 fL (80.0-100.0); Mean Platelet Volume 10.9 fL (9.4-12.4); Monocytes # (auto) 0.81 K/uL (0.11-0.59); Neutrophils # (auto) 8.38 K/uL (1.40-6.50); Neutrophils % (auto) 82.9 %; Platelet Count 87 K/uL (130-400); Potassium 3.7 mmol/L (3.5-5.1); RDW Coefficient of Variation 16.8 % (11.5-14.5); RDW Standard Deviation 62.2 fL (36.4-46.3); Red Blood Count 2.57 M/uL (4.20-5.40); Total Protein 5.1 gm/dl (6.0-8.3); White Blood Count 10.11 K/ul (4.8-10.8)
[2023-03-05] MEDS: BUDESONIDE/GLYCOPYR/FORMOTEROL INHALER INH SCH ×2 (08:39→20:06)
[2023-03-05] MEDS: ACETAMINOPHEN 500 MG TAB PO PRN ×2 (08:44→20:25)
[2023-03-05] MEDS: MAGNESIUM SULFATE / D5W 1 GM/100 ML BAG IV SCH ×2 (08:44→12:27)
[2023-03-05] MEDS: CHOLECALCIFEROL 1,000 UNITS 25 MCG TAB PO SCH (08:49)
[2023-03-05] MEDS: MAGNESIUM OXIDE 400 MG TAB PO SCH (08:49)
[2023-03-05] MEDS: AMOXICILLIN/CLAVULANATE 875 MG TAB PO SCH ×2 (08:49→15:57)
[2023-03-05] MEDS: CYANOCOBALAMIN (B-12) 500 MCG TABLET PO SCH (08:49)
[2023-03-05] MEDS: predniSONE 10 MG TABLET PO SCH (08:49)
[2023-03-05] MEDS: FOLIC ACID 1 MG TAB PO SCH (08:49)
[2023-03-05] MEDS: PANTOprazole 40 MG TAB PO SCH ×2 (08:49→20:28)
[2023-03-05] MEDS: VIBEGRON 75 MG TAB PO SCH (08:50)
[2023-03-05] MEDS: LIDOCAINE 5% 1 PATCH TD SCH (08:50)
[2023-03-05] MEDS: DOCUSATE SODIUM/SENNA 50/8.6MG TAB PO SCH (08:50)
[2023-03-05] MEDS: METOPROLOL SUCC 50MG EXT REL TAB PO SCH ×2 (08:57→20:07)
--- NOTE | 2023-03-05 12:06 | XRay Report ---
KUB HISTORY: Acute generalized abdominal pain abdominal pain COMPARISON: PET/CT 02/08/2023 FINDINGS: Chronic left hemidiaphragmatic elevation. Left colonic air-fluid levels are noted. Nonobstr uctive bowel gas pattern. Mild colonic fecal retention. No renal calculi. No ureteral calculi. No pn eumoperitoneum or pneumatosis. Degenerative changes of the spine, pelvis and hips. No fracture. IMPRESSION: Nonobstructive bowel gas pattern. ACT 112: Negative or not required by law. The above report was generated using voice recognition software. It may contain grammatical, syntax o r spelling errors. Electronically signed by: Christian Salas M.D. 03/05/2023 12:04 PM
--- NOTE | 2023-03-05 12:11 | XRay Report ---
SINGLE VIEW CHEST CLINICAL HISTORY: Dyspnea FINDINGS: An AP, portable, upright chest radiograph is compared to study dated 03/01/2023. A left subc lavian central venous infusion port is unchanged in position. The heart is enlarged noting atheroscle rotic calcification of the thoracic aorta. The mitral annulus is densely calcified. The pulmonary vas culature is noncongested. There is chronic elevation of left hemidiaphragm. There are small pleural e ffusions with dependent consolidation. A calcific granuloma is again seen in the left upper lung. No pneumothorax is seen. The skeletal structures are osteopenic. The bony thorax is grossly intact. IMPRESSION: 1. Cardiomegaly without radiographic evidence of congestive failure. 2. Small pleural effusions with dependent consolidation. ACT 112: Negative or not required by law. Electronically signed by: Zaki Brian M.D. 03/05/2023 12:09 PM
[2023-03-05] MEDS: DOCUSATE SODIUM 100 MG CAP PO SCH ×2 (12:26→20:05)
[2023-03-05] MEDS: CARBAMIDE PEROXIDE 6.5% 15 ML BTL OT SCH ×3 (12:26→20:26)
[2023-03-05] MEDS: POLYETHYLENE (MIRALAX) 17 GM PACK PO SCH (12:26)
[2023-03-05] MEDS ORDERED: POTASSIUM CHLORIDE CRTAB 20 MEQ TABCR PO STA (14:26)
[2023-03-05] MEDS ORDERED: FUROSEMIDE 40 MG TAB PO ONE (14:26)
[2023-03-05] MEDS: WARFARIN SOD 2.5 MG TAB PO SCH (15:56)
[2023-03-05] MEDS: OLANZapine 5 MG TABLET PO SCH (20:28)
[2023-03-05] MEDS: SERTRALINE HCL 50 MG TABLET PO SCH (20:28)
[2023-03-06 06:46] LABS: Hematocrit (blood only) 23.5 % (37.0-47.0); Hemoglobin 7.8 g/dl (12.0-16.0); Mean Corpuscular Hemoglobin 33.5 pg (25.0-34.0); Mean Corpuscular Hgb Conc 33.2 g/dL (32.0-36.0); Mean Corpuscular Volume 100.9 fL (80.0-100.0); Mean Platelet Volume 10.5 fL (9.4-12.4); Platelet Count 130 K/uL (130-400); RDW Coefficient of Variation 15.8 % (11.5-14.5); RDW Standard Deviation 57.4 fL (36.4-46.3); Red Blood Count 2.33 M/uL (4.20-5.40); White Blood Count 18.76 K/ul (4.8-10.8)
[2023-03-06 07:17] LABS: BUN Creatinine Ratio 14.9 (10-20); Est GFR (African American) 66.9 ml/min; Est GFR (Non-African American) 57.7 ml/min; Magnesium 1.7 mg/dl (1.7-2.4); Potassium 3.8 mmol/L (3.5-5.1)
--- NOTE | 2023-03-06 07:47 | Hospitalist Progress Note ---
Date of Service March 06, 2023 Assessment & Plan (1) Acute hypoxic respiratory failure: Plan: Acute on chronic hypoxic respiratory failure: Patient at baseline uses 1 L of oxygen at home however presented to hospital with shortness of breath and requiring 4L to maintain saturations. 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 MRSA nares negative. Vanco discontinued as ordered on admission Pulmonary toilet Home breztri brought by family last evening Mag replacement, wnl on repeat Given Lovenox SQ x 1 on 02/28 for bridging given subtherapeutic INR (patient w/ prior PE on Eliquis, developed DVT now on Coumadin). Coumadin 2.5mg daily continued (all days except 5mg Sunday/Sunday) CTA for PE not able to be obtained prior to due IV access/blown IVs VQ scan which did NOT note any segmental perfusion defects 03/02 Hgb to 6.8 despite IV lasix. Cr improved slightly even w/ diuretics. Overnight resident ordered 1u PRBC (discussed w/ heme/onc this morning and recs for 1u PRBC and likely 2nd to chemotherapy -- already have ensured B12/folate wnl, iron studies stable and agreed PRBC) Giving additional 20mg IV lasix with transfusion to prevent volume overload Supplemental O2 to maintain sats -- down to 3L Fecal occult blood ordered for completeness. Increased PPI to BID in meantime (no abdominal pain reported either but is on daily prednisone) 03/03 Updated daughter in room this morning. Did discuss multifactorial, could have had elevated HR/afib in setting of uti/infection as she was asymptomatic, Neulasta injection, nacl use/volume overload, etc Titrated to 2L this morning, asked RN to titrate further as able given 97% to prevent CO2 retention Cr improved w/ PRBC/lasix, 1.5. Suspected anemia from chemo discussed INR 2.8 Continue PPI BID Therapy evaluations pending Discussed possible dc in next 24-48 hours pending status/breathing. Holding off any Lasix for today. 03/04 --> episode of Afib/RVR overnight w/ rates to 140s. Was given IV magnesium/Metoprolol tartrate 25mg PO x 1 followed by 3 doses 5mg IV lopressor and before digoxin provided patient converted back Continue to monitor on telemetry WBC elevation however could be peak from 6 days following neulasta injection. Hgb stable 9.2, plt 92 Chemistries w/ normal sodium, potassium, BUN/Cr 18/0.96 Coag reviewed, INR 3.0 and in range 100% on 1L NC at present 03/05 -- reporting LLQ pain overnight, WBC wnl and afebrile on morning labs prn oxycodone provided and patient reporting large loose BM w/ improvement in pain after having bowel movement but reported ongoing discomfort. Hx diverticulosis and diverticulitis in the past but reports this does not feel similar. Urinary symptoms improved. WBC wnl and afebrile. Patient wanting to AVOID any CT for eval but was agreeable to [facility] for eval. Bladder scan to r/o retention CXR w/ cardiomegaly w/o CHF but noting small pleural effusions. W/ her gut edema/LE edema will attempt lasix 40mg IV x 1 and monitor response. Continue pain control and bowel regimen. Patient w/ low mag as well and could be contributing to cramping and IV replacement ordered and started PO supplementation and will consider increasing to BID. Suspect this may also assist w/ keeping her bowels more regular. Will hold off further miralax. 03/06 --> Patient on her usual 1L NC. WBC elevated but afebrile. No clear sources as WBC wnl on labs yesterday. On abx for UTI treatment which has improved but having diarrhea.Cdiff negative, imodium x 1 stool softeners/stimulants as ordered for constipation stopped at present Appearing slightly overloaded on exam, lasix 40mg PO x 1 provided and montioring response Urgent CXR ordered but not completed, this afternoon patient w/ elevated HR w/ afib/RVR to 120-140s w/ SOB reported Stat CXR ordered for eval, lopressor IV ordered and monitoring on telemetry Given already increased her metoprolol, will place order for cardiology consultation for additional recs/assistance mag was 1.7 on AM labs, IV replacement ordered as well as K w/ the lasix Further management pending CXR Patient was initially for dc today but given afib/rvr and diarrhea remaining inpatient. 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 5mg 2x/wk, 2.5mg all other days Elevated HR/afib to 140s 03/04 given additional metoprolol tartrate 25mg PO x 1, lopressor 5mg x 3 doses and converted to NSR 330am 03/04 and REMAINED SINUS UNTIL afternoon 03/06 Duonebs changed to atrovent to prevent issues INR stable/therapeutic on repeat values Given lasix this morning for volume overload K was 3.8 and 40meq KCl ordered, 2gm IV mag for 1.7 and lopressor for Afib/RVR with rates to 120-140s w/ SOB reported CXR as above Cardiology consulted for further assistance/management (3) Volume overload: Plan: Initial CXR negative for acute process, was given copious IVF on admission for hypotension and on Nacl tablets for hyponatremia w/ volume overload/LE edema on exam and repeat CXR w/ pulmonary edema, BNP elevated 691 Prior on HCTZ/triamterene but stopped from hyponatremia concerns. Weights in December ~66kg, 70.9kg on admit and 78kg following IVF resuscitation (suspect some error on weights though) Was given multiple liters IVF on admission for hypotension ECHO prior w/ EF 35-40%. -Repeat ECHO w/ improvement back to normal EF, wma resolved Was on Nacl TID, recently down to 1gm daily Afib w/ elevated rates 03/01, increased metoprolol to BID per discussion w/ cardiology CXR w/ pulm congestion, IV lasix x 1 and additional w/ PRBC as above STOPPED NACL tablets, repeat BNP doubled but down to baseline 1L and LE edema stable and Na wnl on check. Changed duonebs to atrovent alone to prevent elevated HR/afib -- consider new rx at dc per discussion w/ family Lasix 40mg IV x 1 for 03/05 and will monitor response. Additional 40mg PO ordered 03/05, repeated for this morning as above/CXR pending Would HOLD OFF FURTHER NACL supplementation as has been stable off of this Monitor weights/output (4) UTI (urinary tract infection): Plan: Family reported darker urine recently, similar to when she's had prior infections. UA appeared infected, cx w/ ecoli Was on Zosyn for pulm coverage but do not suspect pneumonia process, could have had pneumonitis from recent chemo but volume overload from IVF as above WBC trending down, afebrile Blood cultures remain NGTD Switched to Augmentin PO 03/03 and will complete course (covering for resp but no evidence for pneumonia). Was on Zosyn from 02/28 - 03/03 and transitioned to Augmentin PM 03/03 (day 6 of treatment, can dc after 7 days but will keep on mar for now given WBC and monitor on repeat) (5) Sepsis: Plan: Presented with tachypnea, hypotension w/ elevated procal and tachycardia with respiratory acidosis. Lactic wnl On chronic steroids prednisone 10mg daily Blood cx NGTD Urine cx w/ Klebsiella, was on Zosyn for pulm coverage as above Switched to AUgmentin to complete course as discussed w/ supervising provider 03/03 (6) Hypotension: Plan: suspected 2nd to poor PO intake. Lactic 1.6, but see above IV bolus in ER, continued NS thereafter @ 100cc/hr but volume overloaded as above and given lasix 03/01 w/ stable BPs and PRBC last week (per heme/onc discussion, suspected drop 2nd to chemo) BP 130/55 and stable on increased dose of metoprolol which will be continued (7) Small cell lung cancer: Plan: Recent PET scan shows liver metastasis shrinking. Recent neulasta last week Follows with Dr Ceja Concurrent chemoradiation w/ Carbo/Etoposide, completed radiation treatments 12/2021 Had received Iron transfusions over the summer Monitor hgb, suspect drop w/ volume overload but will monitor Can consult Dr Ceja if needed but discussed w/ her AM 03/02 and agreed w/ 1u PRBC and felt 2nd to chemotherapy Of note, patient declined having issue w/ chemo in past when she DID NOT get neulasta, possible she may need this held in f/u with [facility] (8) Breast cancer: Plan: History of ductal cell breast cancer (9) Shortness of breath: Plan: VQ scan, attempted CT chest for PE but was unable Reports improvement in SOB w/ IV lasix 03/01 and further improved/feeling like her baseline Continues home breztri, switched duonebs to atrovent as needed to prevent tachycardia/afib Held further Nacl tablets to prevent overload, Na stable Lasix 40mg IV on 03/04, given 40mg PO x 1 yesterday (03/05) and repeated for today Suspect her flipping in/out of afib at home contributing given pattern inpatient Repeat CXR ordered for eval today, cardiology consulted for afib/RVR (10) Acute kidney injury: Plan: Acute elevation in Cr to 1.38 on 03/01, likely 2nd to contrast for CT attempted Appeared volume overloaded yesterday, CXR w/ vascular congestion and given lasix 20mg IV w/ repeat Cr 1.3 PRBC as above Placed oral salt tablets on hold (03/03) and Na stable w improved Cr Of note, Na stable w/ lasix use and renal function staying stable Renal dose meds/avoid toxins as able and monitor BMP (11) Demand ischemia: Plan: Trop elevation suspected 2nd to demand ischemia from hypoxia/respiratory failure on admission ECHO w/o wma, EF improved compared to priors. Trended down on repeat No CP reported. (12) Hyponatremia: Plan: chronic issue. 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 Discussed w/ family less free water and more gatorade/etc when taking in fluids for hydration (had been drinking lots of water, may need fluid restriction rather than lasix) Diuretics as above and monitor response Plan continued inpatient stay, afib/RVR this afternoon Admission and Anticipated Discharge Date Admission Date: February 28, 2023 Subjective Eval this morning, was getting up to use bathroom and became a little short of breath. On her usual 1L but has some increased LE edema this morning and CXR 2 view ordered but will plan for additional dose of lasix and monitor response. Possible low dose lasix at discharge for volume management. Moved her bowels 4 times, heavy bowel regimen. Cdiff testing given recent abx but negative and will hold further bowel regimen and give dose of imodium as requested. No abdominal discomfort reported today. Updated daughter Mei on phone regarding plan, questions/concerns addressed at this time. Physical Exam Physical Exam: General: 77yo female, chronically ill appearing, resting in bed, NAD but reporting need for Imodium for diarrhea HEENT: head atraumatic, normocephalic, mmm, trachea midline Chest; port to L chest, dressing c/d/i Resp; even/unlabored, but slightly reduced in the bases, no w/c, on 1L CV: RRR, no significant m/r/g, 1-2+ pedal edema, calves nontender GI: +BS, soft/NT : no miranda MSK/Neuro: no focal deficits, no slurred speech, answering questions appropriately Psych: alert/oriented to person/place/time, cooperative with exam Results & Data Results & Data Vital Signs (Past 12 Hours) Vital Signs Temp Pulse Pulse Resp BP BP BP 03/06/23 07:40 36.9 C 81 18 115/70 03/06/23 03:30 36.6 C 65 18 134/69 03/05/23 23:58 37.1 C 84 23 141/84 H 03/05/23 22:36 75 03/05/23 22:32 36.8 C 70 18 142/61 H 03/05/23 20:00 Pulse Ox O2 Del Method O2 Flow Rate 03/06/23 07:40 96 Nasal Cannula 1 03/06/23 03:30 97 Nasal Cannula 1 03/05/23 23:58 97 Room Air 03/05/23 22:36 03/05/23 22:32 94 Nasal Cannula 1 03/05/23 20:00 Nasal Cannula 1 Laboratory Results 03/06/23 03/06/23 03/05/23 Range/Units 05:54 05:49 05:32 WBC 18.76 H 10.11 (4.8-10.8) K/ul RBC 2.33 L 2.57 L (4.20-5.40) M/uL Hgb 7.8 L 8.5 L (12.0-16.0) g/dl Hct 23.5 L 26.1 L (37.0-47.0) % MCV 100.9 H 101.6 H (80.0-100.0) fL MCH 33.5 33.1 (25.0-34.0) pg MCHC 33.2 32.6 (32.0-36.0) g/dL RDW Std Deviation 57.4 H 62.2 H (36.4-46.3) fL RDW Coeff of Atul 15.8 H 16.8 H (11.5-14.5) % Plt Count 130 87 L (130-400) K/uL MPV 10.5 10.9 (9.4-12.4) fL Immature Gran % (Auto) 4.7 % Neut % (Auto) 82.9 % Lymph % (Auto) 3.6 % [place] % (Auto) 8.0 % Eos % (Auto) 0.4 % Baso % (Auto) 0.4 % Neut # (Auto) 8.38 H (1.40-6.50) K/uL Lymph # (Auto) 0.36 L (1.20-3.40) K/uL [place] # (Auto) 0.81 H (0.11-0.59) K/uL Eos # (Auto) 0.04 (0.00-0.50) K/uL Baso # (Auto) 0.04 (0.00-0.20) K/uL Immature Gran # (Auto) 0.48 H (0.01-0.20) K/uL Sodium 140 142 (136-145) mmol/L Potassium 3.8 3.7 (3.5-5.1) mmol/L Chloride 103 108 H (98-107) mmol/L Carbon Dioxide 32 30 (21-32) mmol/L Anion Gap 5 4 (3-11) BUN 14 17 (6-23) mg/dl Creatinine 0.94 0.89 (0.6-1.2) mg/dl Est Cr Clr Drug Dosing 49.0 51.7 ml/min Est GFR ( Amer) 66.9 71.4 ml/min Est GFR (Non-Af Amer) 57.7 61.6 ml/min BUN/Creatinine Ratio 14.9 19.1 (10-20) Glucose 87 72 (70-99(Fasting)) mg/dl Calcium 8.0 L 8.1 L (8.6-10.3) mg/dl Magnesium 1.7 1.6 L (1.7-2.4) mg/dl Total Bilirubin 0.5 (0.2-1.0) mg/dl AST 13 (13-39) U/L ALT 10 (7-52) U/L Alkaline Phosphatase 104 (34-104) U/L B-Natriuretic Peptide 692 H (0-100) pg/ml Total Protein 5.1 L (6.0-8.3) gm/dl Albumin 2.9 L (3.4-5.0) gm/dl Globulin 2.2 L (2.5-4.0) gm/dl Albumin/Globulin Ratio 1.3 (0.9-2) Stl C. diff Tox B Gene Negative Cdiff Gene (Neg) PG Care Time/CCT Total # of Minutes Spent Total Time Spent with Patient: Total time spent is greater than 50% in coordination of care (as documented) at patient's floor/unit and/or counseling patient: Coding Level of Care Code 47016 SUB INP/OBS CARE 3/50MIN Diagnoses Acute hypoxic respiratory failure J96.01 Atrial flutter I48.92 Volume overload E87.70 UTI (urinary tract infection) N39.0 Sepsis A41.9 Hypotension I95.9 Small cell lung cancer C34.90 Breast cancer C50.919 Shortness of breath R06.02 Acute kidney injury N17.9 Demand ischemia I24.89 Hyponatremia E87.1
[2023-03-06] MEDS: PANTOprazole 40 MG TAB PO SCH ×2 (09:04→20:19)
[2023-03-06] MEDS: AMOXICILLIN/CLAVULANATE 875 MG TAB PO SCH ×2 (09:04→16:13)
[2023-03-06] MEDS: CHOLECALCIFEROL 1,000 UNITS 25 MCG TAB PO SCH (09:05)
[2023-03-06] MEDS: VIBEGRON 75 MG TAB PO SCH (09:05)
[2023-03-06] MEDS: predniSONE 10 MG TABLET PO SCH (09:05)
[2023-03-06] MEDS: FOLIC ACID 1 MG TAB PO SCH (09:05)
[2023-03-06] MEDS: CYANOCOBALAMIN (B-12) 500 MCG TABLET PO SCH (09:05)
[2023-03-06] MEDS: MAGNESIUM OXIDE 400 MG TAB PO SCH (09:05)
[2023-03-06] MEDS: METOPROLOL SUCC 50MG EXT REL TAB PO SCH ×2 (09:06→20:19)
[2023-03-06] MEDS: CARBAMIDE PEROXIDE 6.5% 15 ML BTL OT SCH ×3 (09:06→20:18)
[2023-03-06] MEDS: BUDESONIDE/GLYCOPYR/FORMOTEROL INHALER INH SCH ×2 (09:06→20:17)
[2023-03-06] MEDS: DOCUSATE SODIUM/SENNA 50/8.6MG TAB PO SCH (09:07)
[2023-03-06] MEDS: DOCUSATE SODIUM 100 MG CAP PO SCH (09:07)
[2023-03-06] MEDS: LIDOCAINE 5% 1 PATCH TD SCH (09:07)
[2023-03-06] MEDS: POLYETHYLENE (MIRALAX) 17 GM PACK PO SCH (09:07)
[2023-03-06] MEDS ORDERED: LOPERAMIDE HCL 2 MG CAP PO STA (12:26)
[2023-03-06] MEDS ORDERED: FUROSEMIDE 40 MG TAB PO ONE (12:26)
[2023-03-06] MEDS: WARFARIN SOD 2.5 MG TAB PO SCH (16:12)
[2023-03-06] MEDS ORDERED: METOPROLOL TARTRATE 1 MG/ML VIAL IV PRN (16:38)
[2023-03-06] MEDS ORDERED: SERTRALINE HCL 50 MG TABLET PO ONE (16:39)
[2023-03-06] MEDS: IPRATROPIUM BROMIDE NEB SOLN 0.02% 2.5 ML VIAL NEB PRN (16:46)
[2023-03-06] MEDS ORDERED: METOPROLOL TARTRATE 1 MG/ML VIAL IV ONE (16:47)
[2023-03-06] MEDS ORDERED: POTASSIUM CHLORIDE CRTAB 20 MEQ TABCR PO STA (16:48)
[2023-03-06] MEDS ORDERED: SODIUM CHLORIDE 0.9% 250 ML IV PRN (17:03)
--- NOTE | 2023-03-06 17:06 | Communication Note ---
Date of Service: March 06, 2023 Patient converted back to NSR prior to lopressor being given right before 5 o'clock after nebulizer treatment. Reported improvement in shortness of breath since converting. CXR pending Discussed w/ Dr Ceja, who will see in AM but recs to give 1u PRBC for now, ordered. Continued monitoring on telemetry
--- NOTE | 2023-03-06 17:11 | XRay Report ---
SINGLE VIEW CHEST CLINICAL HISTORY: Dyspnea FINDINGS: An AP, portable, upright chest radiograph is compared to study dated 03/05/2023. A left subc lavian central venous infusion port is unchanged in position. The heart is enlarged noting atheroscle rotic calcification of the thoracic aorta. The mitral annulus is densely calcified. The pulmonary vas culature is noncongested. There is chronic elevation of left hemidiaphragm. There are small pleural e ffusions with dependent atelectasis. A calcific granuloma is again seen in the left upper lung. No pn eumothorax is seen. The skeletal structures are osteopenic. The bony thorax is grossly intact. IMPRESSION: 1. Cardiomegaly without radiographic evidence of congestive failure. 2. Small pleural effusions. ACT 112: Negative or not required by law. Electronically signed by: Zaki Brian M.D. 03/06/2023 5:10 PM
[2023-03-06] MEDS: MAGNESIUM SULFATE / D5W 1 GM/100 ML BAG IV SCH ×2 (17:44→19:30)
[2023-03-06] MEDS: diazePAM 2 MG TABLET PO PRN (18:40)
[2023-03-06] MEDS: SERTRALINE HCL 50 MG TABLET PO SCH (20:19)
[2023-03-06] MEDS: OLANZapine 5 MG TABLET PO SCH (20:19)
[2023-03-07 00:12] LABS: Hematocrit (blood only) 24.6 % (37.0-47.0); Hemoglobin 8.2 g/dl (12.0-16.0)
[2023-03-07] MEDS: diazePAM 2 MG TABLET PO PRN ×2 (06:39→18:38)
[2023-03-07 07:06] LABS: Hematocrit (blood only) 24.3 % (37.0-47.0); Hemoglobin 8.5 g/dl (12.0-16.0); Mean Corpuscular Hemoglobin 33.7 pg (25.0-34.0); Mean Corpuscular Volume 96.4 fL (80.0-100.0); Mean Platelet Volume 10.5 fL (9.4-12.4); Platelet Count 149 K/uL (130-400); RDW Coefficient of Variation 19.2 % (11.5-14.5); RDW Standard Deviation 63.7 fL (36.4-46.3); Red Blood Count 2.52 M/uL (4.20-5.40); White Blood Count 18.39 K/ul (4.8-10.8)
[2023-03-07 07:37] LABS: Basophils # (auto) 0.07 K/uL (0.00-0.20); Basophils % (auto) 0.4 %; Eosinophils # (auto) 0.05 K/uL (0.00-0.50); Eosinophils % (auto) 0.3 %; Immature Granulocytes # (auto) 1.53 K/uL (0.01-0.20); Immature Granulocytes % (auto) 8.3 %; Lymphocytes # (auto) 0.83 K/uL (1.20-3.40); Lymphocytes % (auto) 4.5 %; Monocytes # (auto) 1.53 K/uL (0.11-0.59); Monocytes % (auto) 8.3 %; Neutrophils # (auto) 14.38 K/uL (1.40-6.50); Neutrophils % (auto) 78.2 %; Toxic Granulation 1+
[2023-03-07 07:39] LABS: Albumin Level 2.7 gm/dl (3.4-5.0); Bilirubin,Total 0.6 mg/dl (0.2-1.0); Potassium 4.2 mmol/L (3.5-5.1)
[2023-03-07 07:45] LABS: Albumin Globulin Ratio 1.3 (0.9-2); BUN Creatinine Ratio 16.7 (10-20); Creatinine Clr Calc Pharmacy 47.9 ml/min; Est GFR (African American) 65.2 ml/min; Est GFR (Non-African American) 56.2 ml/min; Globulin 2.1 gm/dl (2.5-4.0); Total Protein 4.8 gm/dl (6.0-8.3)
[2023-03-07 08:34] LABS: INR 3.9 (0.9-1.1); Prothrombin Time 38.9 Seconds (9.0-12.0)
[2023-03-07] MEDS: BUDESONIDE/GLYCOPYR/FORMOTEROL INHALER INH SCH ×2 (08:56→21:38)
[2023-03-07] MEDS: METOPROLOL SUCC 50MG EXT REL TAB PO SCH ×2 (08:57→21:37)
[2023-03-07] MEDS: predniSONE 10 MG TABLET PO SCH (08:57)
[2023-03-07] MEDS: SERTRALINE HCL 50 MG TABLET PO SCH ×2 (08:57→21:38)
[2023-03-07] MEDS: PANTOprazole 40 MG TAB PO SCH ×2 (08:57→21:37)
[2023-03-07] MEDS: VIBEGRON 75 MG TAB PO SCH (08:58)
[2023-03-07] MEDS: MAGNESIUM OXIDE 400 MG TAB PO SCH (08:58)
[2023-03-07] MEDS: FOLIC ACID 1 MG TAB PO SCH (08:58)
[2023-03-07] MEDS: AMOXICILLIN/CLAVULANATE 875 MG TAB PO SCH ×2 (08:59→17:15)
[2023-03-07] MEDS: CYANOCOBALAMIN (B-12) 500 MCG TABLET PO SCH (08:59)
[2023-03-07] MEDS: LIDOCAINE 5% 1 PATCH TD SCH (08:59)
[2023-03-07] MEDS: CARBAMIDE PEROXIDE 6.5% 15 ML BTL OT SCH ×3 (08:59→21:36)
[2023-03-07] MEDS: CHOLECALCIFEROL 1,000 UNITS 25 MCG TAB PO SCH (08:59)
[2023-03-07] MEDS: POLYETHYLENE (MIRALAX) 17 GM PACK PO SCH (09:00)
--- NOTE | 2023-03-07 09:20 | Oncology Consultation ---
Date of Consultation March 07, 2023 Assessment & Plan (1) Acute hypoxic respiratory failure: (2) Acute UTI (urinary tract infection): (3) Atrial flutter: Plan -Seems to be doing better clinically. I do not think A-fib with RVR is due to Neulasta as this is not a reported side effect and she had previously received Neulasta with previous rounds of chemotherapy(Zepzelca) administered in September to October 2022. Since she is interested in omitting Neulasta with next round of chemotherapy, I explained to her that I would be concerned about risk of neutropenia and infection most especially given intensity of chemotherapy as well as her advanced age and history of recurrent UTIs. If she continues to have issues with atrial fibrillation with RVR, may have to consider discontinuing chemotherapy and keeping her maintenance immunotherapy. However, she is aware that unfortunately small cell lung cancer has very limited treatment options and she is currently receiving essentially third line of treatment at this point. Luckily, she appears to have responded fairly well to treatment with reduction in liver lesion - She has underlying chronic cardiac issues including atrial flutter, CHF which I suspect likely contributed to A-fib with RVR along with UTI and recent chemoimmunotherapy administration. -Regarding anemia, this is likely due to chemotherapy as nutritional labs are all within normal limits. Thank you for this consult. Oncology will continue following patient while in the hospital. Please feel free to call if you have any other questions History of Present Illness Reason for Consultation: Small cell lung cancer, atrial fibrillation with RVR Attending Physician: Moreno Jara MD History of Present Illness Pleasant 77-year-old female with history of extensive stage small cell lung cancer for which she most recently received cycle 2 of treatment with carboplatin/etoposide/atezolizumab on 02/19/2023 with Neulasta support. She presented to the ER at [facility] on 02/28/2023 with shortness of breath. Found to have UTI, worsening anemia and subsequently found to be in A-fib with RVR. She was placed on broad-spectrum antibiotics, has required PRBC transfusions and is currently on beta-joellen for A-fib. She states that she is doing a lot better and is wondering if atrial fibrillation with RVR could have been due to receiving Neulasta Allergies Allergy/AdvReac Type Severity Reaction Status Date / Time castor oil Allergy Severe "TAXANES" Verified 02/27/23 15:20 CAUSE DYSPNEA, RASH, ELEVATED BP docetaxel [From Taxotere] Allergy Severe "TAXANES" Verified 02/27/23 15:20 CAUSE DYSPNEA, RASH, ELEVATED BP paclitaxel Allergy Severe "TAXANES" Verified 02/27/23 15:20 CAUSE DYSPNEA, RASH, ELEVATED BP trimethoprim [From Bactrim] Allergy Severe Anaphylaxis Verified 02/27/23 15:20 Iodinated Contrast Media Allergy Intermediate HIVES/ITCHI Verified 02/27/23 15:20 NG nitrofurantoin Allergy Intermediate CHEST Verified 02/27/23 15:20 PAIN, DYSPNEA Sulfa (Sulfonamide Allergy Intermediate HIVES, Verified 02/27/23 15:20 Antibiotics) ITCHINESS, SHORTNESS OF BREATH codeine AdvReac Intermediate COLD Verified 02/27/23 15:20 SWEAT, THINGS START SPINNING, NAUSEA phenazopyridine AdvReac Intermediate N/V Verified 02/27/23 15:20 Home Medications Medication Instructions Recorded Confirmed Type cholecalciferol (vitamin D3) 25 25 mcg PO DAILY 12/01/21 01/22/23 History mcg (1,000 unit) capsule nebulizers #1 ea 12/05/21 01/22/23 Rx calcium 600 mg-D3 800 unit-mag11 1 tab PO BID #60 tabs 04/27/22 01/22/23 Rx 50 ru-ejrf-swkmnf-beulah-s.borat tablet (Caltrate 600-D Plus Minerals) sennosides 8.6 mg tablet (Senokot) 8.6 mg PO DAILY PRN Constipation 06/01/22 01/22/23 History melatonin 3 mg capsule 10 mg PO HS 07/12/22 01/22/23 History vibegron 75 mg tablet (Gemtesa) 75 mg PO DAILY #90 tabs 07/20/22 02/28/23 Rx prednisone 10 mg tablet 10 mg PO DAILY 90 days #90 tabs 09/27/22 02/28/23 Rx mecobalamin (vitamin B12) 1,000 1,000 mcg sublingual DAILY 10/26/22 01/22/23 History mcg disintegrating tablet,sublingual metoprolol succinate 50 mg 50 mg PO DAILY #90 tabs 11/28/22 02/28/23 Rx tablet,extended release 24 hr budesonide 160 mcg-glycopyr 9 2 inh inhalation BID #10.7 grams 12/11/22 02/28/23 Rx mcg-formot 4.8 mcg/actuation HFA inhaler (Breztri Aerosphere) folic acid 1 mg tablet 1 mg PO QPM #30 tabs 12/11/22 02/28/23 Rx ipratropium 0.5 mg-albuterol 3 mg 3 ml inhalation BID PRN wheezing 12/11/22 02/28/23 Rx (2.5 mg base)/3 mL nebulization #360 mL soln docusate sodium 100 mg capsule 100 mg PO BID PRN Constipation 01/03/23 01/22/23 History (Colace) polyethylene glycol 3350 17 17 g PO DAILY PRN Constipation 01/03/23 01/22/23 History gram/dose oral powder (Miralax) pantoprazole 40 mg tablet,delayed 40 mg PO DAILY #30 tabs 01/06/23 02/28/23 Rx release olanzapine 5 mg tablet 5 mg PO QPM 01/10/23 02/28/23 History trazodone 50 mg tablet 100 mg PO HS 01/10/23 02/28/23 History acetaminophen 500 mg tablet 1,000 mg (2 x 500 mg) PO TID #30 01/14/23 01/22/23 Rx (Tylenol Extra Strength) tabs ondansetron HCl 8 mg tablet 8 mg PO Q8H PRN Nausea 01/22/23 01/22/23 History oxycodone 5 mg tablet 0 mg PO Q8H PRN Pain 01/22/23 02/28/23 History warfarin 2.5 mg tablet (Jantoven) 2.5 - 5 mg PO DAILY #100 tabs 02/12/23 02/28/23 Rx sertraline 50 mg tablet See Rx Instructions .Route .COMPLEX 02/27/23 02/28/23 History lidocaine 5 % topical patch 0 patch transdermal Q24H 02/28/23 02/28/23 History sertraline 25 mg tablet See Rx Instructions .Route .COMPLEX 02/28/23 02/28/23 History triamterene 37.5 1 tab PO QAM 02/28/23 02/28/23 History mg-hydrochlorothiazide 25 mg tablet Patient History Medical History (Updated 03/02/23 @ 10:14 by Suellen Chand PA-C) Paroxysmal atrial fibrillation Hyponatremia Breast cancer DVT (deep venous thrombosis) (10/2022) LFTs abnormal Pneumonia Liver lesion Excessive cerumen in both ear canals Anxiety Cardiomyopathy Insomnia Urinary incontinence Chronic hypoxemic respiratory failure Chronic obstructive pulmonary disease Hypomagnesemia Anemia Anticoagulant long-term use UTI (urinary tract infection) Chronic respiratory failure with hypoxia Polymyalgia rheumatica Small cell lung cancer Atrial flutter with rapid ventricular response GERD (gastroesophageal reflux disease) Pancytopenia due to antineoplastic chemotherapy Ex-smoker Lower extremity edema Hemoptysis Chronic dyspnea Small cell lung cancer Malignant neoplasm of lung Bronch with biopsy on 11/15/21 Hearing deficit NO AIDS Vertebral fracture LUMBAR AND THORACIC Osteoporosis Tremor RIGHT HAND Migraine HX Compression fracture of L1 vertebra (08/15/21) Chronic Endometrial thickening on ultrasound Ureteral tumor Port-A-Cath in place Liver abscess History of diverticulitis Hx of bladder cancer HAD BCG INSTILLATION - DX: 2012 History of liver disease 03/2019 KIMBERLY FOR LIVER ABSCESS- GIVEN ABXS X MONTHS- FOLLOWING WITH HEME FOR MONITORING -RECENT CT SCAN 06/16/19- SHOWS ABSCESS TO BE DECREASED TO 3.5CM (SURGEON IS AWARE) Asthma (04/25/12) Stable and controlled Diabetes mellitus, type 2 NIDDM- WELL CONTROLLED AND STABLE History of breast cancer RIGHT S/P LUMPECTOMY/CHEMO/RADATION (2009)- STABLE AT THIS TIME Left rib fracture (2017) Surgical History S/P ablation of atrial flutter History of bronchoscopy 11/15/21 Nausea and vomiting after administration of anesthetic agent H/O cystoscopy SEVERAL History of colonoscopy History of surgery LEFT CHEST PORT History of lumpectomy of right breast History of elbow surgery RIGHT History of arthroscopy B/L KNEE History of breast biopsy History of surgery TURBT X 2; TURBT, CYSTO, RIGHT RPG, STENT: 07/11/18: LMA#[address] [facility] History of appendectomy History of cholecystectomy Family History Other Adopted Family history unknown Social History Smoking Status: Never smoker Tobacco Type: Cigarettes Cigarettes Per Day: Less than 1/2 PPD now;Smoked 50+yrs;; Second Hand Exposure: No; Do You Dip or Chew Tobacco: No; Hx Alcohol Use: No Hx Substance Use: No Preferred Language: Amharic Communication Ability: Effective Communication Tools: Other Visual Impairment: No Limitations Hearing Ability: Hard of Hearing Service Loss Control Consultant Required: No Beliefs That Will Affect Care: None marital status: Single Current Living Situation: Other Current Living Situation Comment: Lives with roommate current occupational status: retired Feels Safe at Home: Yes Childhood Exposure to Second-Hand Smoke: Yes Diet: regular caffeine: No during the past year weight has: remained stable Dental Care, Regularly: Yes Physical Activity Frequency: 1-2 Times per Week Seatbelt Use: always Sunscreen Use: Yes Assistive Devices: Hospital Bed, Oxygen - Continuous, Walker and Wheelchair Results & Data Vital Signs (Past 12 Hours) Vital Signs Temp Pulse Pulse Resp BP BP BP 03/07/23 08:11 36.8 C 69 16 120/63 03/07/23 03:00 36.7 C 73 18 146/73 H 03/06/23 22:50 36.7 C 84 16 118/68 03/06/23 22:31 78 03/06/23 22:15 36.8 C 80 16 119/67 03/06/23 22:15 36.9 C 76 18 118/67 Pulse Ox O2 Del Method O2 Flow Rate 03/07/23 08:11 98 Nasal Cannula 1 03/07/23 03:00 96 Nasal Cannula 1 03/06/23 22:50 97 1 03/06/23 22:31 03/06/23 22:15 94 1 03/06/23 22:15 96 1
--- NOTE | 2023-03-07 15:45 | Cardiology Consultation ---
Date of Consultation March 07, 2023 Assessment & Plan (1) Paroxysmal atrial fibrillation: -relatively well tolerated, but does note exertional dyspnea. -could consider antiarrhythmic therapy with amiodarone. -continue rate control and long-term anticoagulation for now. -will ask Dr. Dupree to evaluate her tomorrow. (2) Atrial flutter with rapid ventricular response: -s/p atrial flutter ablations, January 2022. -no recurrence of atrial flutter since that time. (3) Cardiomyopathy: -tachycardic induced etiology. -fortunately, this has resolved. History of Present Illness Attending Physician: Moreno Jara MD History of Present Illness Mrs. Ward is a 77-year-old female admitted on February 28 with respiratory failure. She has demonstrate several episodes of atrial fibrillation, and therefore, this consultation was ordered. Of note, patient typically follows with Drs. Das and Leia in the outpatient setting. The patient has a known history of paroxysmal atrial flutter with a resultant tachycardia induced cardiomyopathy discovered back in January 2022. She underwent a radiofrequency ablation with Dr. Dupree common fortunately, her left ventricular systolic function recovered. She also carries a history of an occasional sinus tachycardia and paroxysmal atrial fibrillation. Note, the patient is on long-term anticoagulation with Coumadin for her current lower extremity DVT. The patient occasionally notes exertional dyspnea when she is in atrial fibrillation. She denies palpitations. She did have an echocardiogram performed on March 01 which noted normal ventricular systolic function with ejection fraction of 60-65%. There was mild LVH. Currently, patient is resting comfortably in bed without complaints. Past medical and surgical history 1. Hypertension 2. Paroxysmal atrial flutter 3. Atrial flutter ablation-January 2022 4. Paroxysmal atrial fibrillation 5. Resolved tachycardic induced cardiomyopathy 6. Metastatic small cell lung carcinoma 7. GERD 8. History of breast carcinoma 9. History of bladder carcinoma 10. COPD 11. L1 compression fracture 12. Diabetes mellitus 13. Hearing deficit 14. Diverticulosis 15. Migraine headaches 16. Polymyalgia rheumatica 17. Essential tremor 18. Appendectomy 19. Cholecystectomy 20. A port Social history Single, lives alone Smokes 1/2 pack of cigarettes daily No tobacco Family history Noncontributory Review of systems A 10 point review systems undertaken and negative except that described above. Allergies Allergy/AdvReac Type Severity Reaction Status Date / Time castor oil Allergy Severe "TAXANES" Verified 02/27/23 15:20 CAUSE DYSPNEA, RASH, ELEVATED BP docetaxel [From Taxotere] Allergy Severe "TAXANES" Verified 02/27/23 15:20 CAUSE DYSPNEA, RASH, ELEVATED BP paclitaxel Allergy Severe "TAXANES" Verified 02/27/23 15:20 CAUSE DYSPNEA, RASH, ELEVATED BP trimethoprim [From Bactrim] Allergy Severe Anaphylaxis Verified 02/27/23 15:20 Iodinated Contrast Media Allergy Intermediate HIVES/ITCHI Verified 02/27/23 15:20 NG nitrofurantoin Allergy Intermediate CHEST Verified 02/27/23 15:20 PAIN, DYSPNEA Sulfa (Sulfonamide Allergy Intermediate HIVES, Verified 02/27/23 15:20 Antibiotics) ITCHINESS, SHORTNESS OF BREATH codeine AdvReac Intermediate COLD Verified 02/27/23 15:20 SWEAT, THINGS START SPINNING, NAUSEA phenazopyridine AdvReac Intermediate N/V Verified 02/27/23 15:20 Home Medications Medication Instructions Recorded Confirmed Type cholecalciferol (vitamin D3) 25 25 mcg PO DAILY 12/01/21 01/22/23 History mcg (1,000 unit) capsule nebulizers #1 ea 12/05/21 01/22/23 Rx calcium 600 mg-D3 800 unit-mag11 1 tab PO BID #60 tabs 04/27/22 01/22/23 Rx 50 lm-ykwt-jozbsz-beulah-s.borat tablet (Caltrate 600-D Plus Minerals) sennosides 8.6 mg tablet (Senokot) 8.6 mg PO DAILY PRN Constipation 06/01/22 01/22/23 History melatonin 3 mg capsule 10 mg PO HS 07/12/22 01/22/23 History vibegron 75 mg tablet (Gemtesa) 75 mg PO DAILY #90 tabs 07/20/22 02/28/23 Rx prednisone 10 mg tablet 10 mg PO DAILY 90 days #90 tabs 09/27/22 02/28/23 Rx mecobalamin (vitamin B12) 1,000 1,000 mcg sublingual DAILY 10/26/22 01/22/23 History mcg disintegrating tablet,sublingual metoprolol succinate 50 mg 50 mg PO DAILY #90 tabs 11/28/22 02/28/23 Rx tablet,extended release 24 hr budesonide 160 mcg-glycopyr 9 2 inh inhalation BID #10.7 grams 12/11/22 02/28/23 Rx mcg-formot 4.8 mcg/actuation HFA inhaler (Breztri Aerosphere) folic acid 1 mg tablet 1 mg PO QPM #30 tabs 12/11/22 02/28/23 Rx ipratropium 0.5 mg-albuterol 3 mg 3 ml inhalation BID PRN wheezing 12/11/22 02/28/23 Rx (2.5 mg base)/3 mL nebulization #360 mL soln docusate sodium 100 mg capsule 100 mg PO BID PRN Constipation 01/03/23 01/22/23 History (Colace) polyethylene glycol 3350 17 17 g PO DAILY PRN Constipation 01/03/23 01/22/23 History gram/dose oral powder (Miralax) pantoprazole 40 mg tablet,delayed 40 mg PO DAILY #30 tabs 01/06/23 02/28/23 Rx release olanzapine 5 mg tablet 5 mg PO QPM 01/10/23 02/28/23 History trazodone 50 mg tablet 100 mg PO HS 01/10/23 02/28/23 History acetaminophen 500 mg tablet 1,000 mg (2 x 500 mg) PO TID #30 01/14/23 01/22/23 Rx (Tylenol Extra Strength) tabs ondansetron HCl 8 mg tablet 8 mg PO Q8H PRN Nausea 01/22/23 01/22/23 History oxycodone 5 mg tablet 0 mg PO Q8H PRN Pain 01/22/23 02/28/23 History warfarin 2.5 mg tablet (Jantoven) 2.5 - 5 mg PO DAILY #100 tabs 02/12/23 02/28/23 Rx sertraline 50 mg tablet See Rx Instructions .Route .COMPLEX 02/27/23 02/28/23 History lidocaine 5 % topical patch 0 patch transdermal Q24H 02/28/23 02/28/23 History sertraline 25 mg tablet See Rx Instructions .Route .COMPLEX 02/28/23 02/28/23 History triamterene 37.5 1 tab PO QAM 02/28/23 02/28/23 History mg-hydrochlorothiazide 25 mg tablet Patient History Medical History (Updated 03/07/23 @ 15:42 by Chandan Arrieta MD) Cardiomyopathy Paroxysmal atrial fibrillation Hyponatremia Breast cancer DVT (deep venous thrombosis) (10/2022) LFTs abnormal Pneumonia Liver lesion Excessive cerumen in both ear canals Anxiety Insomnia Urinary incontinence Chronic hypoxemic respiratory failure Chronic obstructive pulmonary disease Hypomagnesemia Anemia Anticoagulant long-term use UTI (urinary tract infection) Chronic respiratory failure with hypoxia Polymyalgia rheumatica Small cell lung cancer Atrial flutter with rapid ventricular response GERD (gastroesophageal reflux disease) Pancytopenia due to antineoplastic chemotherapy Ex-smoker Lower extremity edema Hemoptysis Chronic dyspnea Small cell lung cancer Malignant neoplasm of lung Bronch with biopsy on 11/15/21 Hearing deficit NO AIDS Vertebral fracture LUMBAR AND THORACIC Osteoporosis Tremor RIGHT HAND Migraine HX Compression fracture of L1 vertebra (08/15/21) Chronic Endometrial thickening on ultrasound Ureteral tumor Port-A-Cath in place Liver abscess History of diverticulitis Hx of bladder cancer HAD BCG INSTILLATION - DX: 2012 History of liver disease 03/2019 KIMBERLY FOR LIVER ABSCESS- GIVEN ABXS X MONTHS- FOLLOWING WITH HEME FOR MONITORING -RECENT CT SCAN 06/16/19- SHOWS ABSCESS TO BE DECREASED TO 3.5CM (SURGEON IS AWARE) Asthma (04/25/12) Stable and controlled Diabetes mellitus, type 2 NIDDM- WELL CONTROLLED AND STABLE History of breast cancer RIGHT S/P LUMPECTOMY/CHEMO/RADATION (2009)- STABLE AT THIS TIME Left rib fracture (2017) Surgical History S/P ablation of atrial flutter History of bronchoscopy 11/15/21 Nausea and vomiting after administration of anesthetic agent H/O cystoscopy SEVERAL History of colonoscopy History of surgery LEFT CHEST PORT History of lumpectomy of right breast History of elbow surgery RIGHT History of arthroscopy B/L KNEE History of breast biopsy History of surgery TURBT X 2; TURBT, CYSTO, RIGHT RPG, STENT: 07/11/18: LMA#4 AT [facility] History of appendectomy History of cholecystectomy Family History Other Adopted Family history unknown Social History Smoking Status: Never smoker Tobacco Type: Cigarettes Cigarettes Per Day: Less than 1/2 PPD now;Smoked 50+yrs;; Second Hand Exposure: No; Do You Dip or Chew Tobacco: No; Hx Alcohol Use: No Hx Substance Use: No Preferred Language: Telugu Communication Ability: Effective Communication Tools: Other Visual Impairment: No Limitations Hearing Ability: Hard of Hearing Home Delivery Driver Required: No Beliefs That Will Affect Care: None marital status: Single Current Living Situation: Other Current Living Situation Comment: Lives with roommate current occupational status: retired Feels Safe at Home: Yes Childhood Exposure to Second-Hand Smoke: Yes Diet: regular caffeine: No during the past year weight has: remained stable Dental Care, Regularly: Yes Physical Activity Frequency: 1-2 Times per Week Seatbelt Use: always Sunscreen Use: Yes Assistive Devices: Hospital Bed, Oxygen - Continuous, Walker and Wheelchair Results & Data Vital Signs (Past 12 Hours) Vital Signs Temp Pulse Pulse Resp BP Pulse Ox O2 Del Method 03/07/23 15:11 37.0 C 73 18 107/60 98 Nasal Cannula 03/07/23 11:09 36.9 C 75 18 110/62 94 Nasal Cannula 03/07/23 10:31 73 03/07/23 08:11 36.8 C 69 16 120/63 98 Nasal Cannula O2 Flow Rate 03/07/23 15:11 1 03/07/23 11:09 1 03/07/23 10:31 03/07/23 08:11 1 Laboratory Results CBC notes hemoglobin 8.5, crit 24.3, white count 18.4, and platelet count [id number]. Electrolytes note a sodium of 138, potassium 4.2, chloride 102, bicarb 32, BUN 16, creatinine 0.96, and glucose of 78. Magnesium level is 2.0. AST is 11 with an ALT of 8. Diagnostic Findings bus monitor notes normal sinus rhythm currently. There have been several episodes of atrial fibrillation. PG Care Time/CCT Total # of Minutes Spent Total Time Spent with Patient: Total time spent is greater than 50% in coordination of care (as documented) at patient's floor/unit and/or counseling patient: Coding Level of Care Code 48574 INT INP/OBS CARE 3/75MIN Diagnoses Paroxysmal atrial fibrillation I48.0 Atrial flutter with rapid ventricular response I48.92 Cardiomyopathy I42.9
--- NOTE | 2023-03-07 17:21 | Hospitalist Progress Note ---
Date of Service March 07, 2023 Assessment & Plan (1) Acute hypoxic respiratory failure: Plan: The patient presents to the hospital with acute on chronic hypoxic respiratory failure, patient uses 1 L of oxygen at home, patient has a history of non-small cell lung cancer currently receiving treatment, history of DVT he presented to the hospital with acute hypoxic respiratory failure, required 4 L of oxygen, patient was treated empirically with broad-spectrum antibiotic given his pleural immunocompromise, VQ scan low probability for PE the course of admission was complicated with A-fib with rapid response, and oxygen requirement went up possible because of CHF induced by A-fib with RVR, she received Lasix.more over the course of admission was complicated with acute on chronic anemia, she received transfusion. Improving Continue Augmentin Switched to Augmentin PO 03/03 and will complete course (covering for resp but no evidence for pneumonia). Was on Zosyn from 02/28 - 03/03 and transitioned to Augmentin PM 03/03 (day 6 of treatment, can dc after 7 days but will keep on mar for now given WBC and monitor on repeat) Continue Atrovent. (2) Atrial flutter: Plan: hx paroxysmal afib, NSR on admission w/ PVC and fusion complexes he has a history of ablation in January 2022 -He episodes of A-fib with RVR Consult with cardiology, possibly triggered by ongoing medical issues, rec eived Lasix, -On metoprolol succinate 50mg daily [employer] On warfarin, INR of 3.9 (3) Volume overload: Plan: Patient developed pulmonary edema/hypoxic respiratory failure after receiving IV fluid during admission , he developed hyponatremia and his triamterene hydrochlorothiazide was discontinued ECHO prior w/ EF 35-40%. -Repeat ECHO w/ improvement back to normal EF, wma resolved Was on Nacl TID, recently down to 1gm daily STOPPED NACL tablets (4) UTI (urinary tract infection): Plan: Patient was treated for UTI during this admission, today the patient complained of burning sensation and suprapubic pain, repeat UA (5) Sepsis: Plan: Presented with tachypnea, hypotension w/ elevated procal and tachycardia with respiratory acidosis. Lactic wnl On chronic steroids prednisone 10mg daily Blood cx NGTD Urine cx w/ Klebsiella, was on Zosyn for pulm coverage as above Switched to AUgmentin to complete course as discussed w/ supervising provider 03/03 (6) Hypotension: Plan: suspected 2nd to poor PO intake. Lactic 1.6, but see above IV bolus in ER, continued NS thereafter @ 100cc/hr but volume overloaded as above and given lasix 03/01 w/ stable BPs and PRBC last week (per heme/onc discussion, suspected drop 2nd to chemo) BP 130/55 and stable on increased dose of metoprolol which will be continued (7) Small cell lung cancer: Plan: Recent PET scan shows liver metastasis shrinking. Recent neulasta last week Follows with Dr Ceja Concurrent chemoradiation w/ Carbo/Etoposide, completed radiation treatments 12/2021 Had received Iron transfusions over the summer Monitor hgb, suspect drop w/ volume overload but will monitor Can consult Dr Ceja if needed but discussed w/ her AM 03/02 and agreed w/ 1u PRBC and felt 2nd to chemotherapy Of note, patient declined having issue w/ chemo in past when she DID NOT get neulasta, possible she may need this held in f/u with CCP (8) Breast cancer: Plan: History of ductal cell breast cancer (9) Acute kidney injury: Plan: Acute elevation in Cr to 1.38 on 03/01, likely 2nd to contrast for CT attempted Appeared volume overloaded yesterday, CXR w/ vascular congestion and given lasix 20mg IV w/ repeat Cr 1.3 PRBC as above Placed oral salt tablets on hold (03/03) and Na stable w improved Cr Of note, Na stable w/ lasix use and renal function staying stable Renal dose meds/avoid toxins as able and monitor BMP (10) Demand ischemia: Plan: Trop elevation suspected 2nd to demand ischemia from hypoxia/respiratory failure on admission ECHO w/o wma, EF improved compared to priors. Trended down on repeat No CP reported. (11) Hyponatremia: Plan: chronic issue. 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 Discussed w/ family less free water and more gatorade/etc when taking in fluids for hydration (had been drinking lots of water, may need fluid restriction rather than lasix) Diuretics as above and monitor response Plan continued inpatient stay, afib/RVR this afternoon Admission and Anticipated Discharge Date Admission Date: February 28, 2023 Subjective Feels better today Physical Exam Physical Exam: General: 77yo female, chronically ill appearing, resting in bed, NAD but reporting need for Imodium for diarrhea HEENT: head atraumatic, normocephalic, mmm, trachea midline Chest; port to L chest, dressing c/d/i Resp; even/unlabored, but slightly reduced in the bases, no w/c, on 1L CV: RRR, no significant m/r/g, 1-2+ pedal edema, calves nontender GI: +BS, soft/NT : no miranda MSK/Neuro: no focal deficits, no slurred speech, answering questions appropriately Psych: alert/oriented to person/place/time, cooperative with exam Results & Data Results & Data Vital Signs (Past 12 Hours) Vital Signs Temp Pulse Pulse Resp BP Pulse Ox O2 Del Method 03/07/23 15:11 37.0 C 73 18 107/60 98 Nasal Cannula 03/07/23 11:09 36.9 C 75 18 110/62 94 Nasal Cannula 03/07/23 10:31 73 03/07/23 08:11 36.8 C 69 16 120/63 98 Nasal Cannula O2 Flow Rate 03/07/23 15:11 1 03/07/23 11:09 1 03/07/23 10:31 03/07/23 08:11 1 PG Care Time/CCT Total # of Minutes Spent Total Time Spent with Patient: Total time spent is greater than 50% in coordination of care (as documented) at patient's floor/unit and/or counseling patient: Coding Level of Care Code 78326 SUB INP/OBS CARE 3/50MIN Diagnoses Acute hypoxic respiratory failure J96.01 Atrial flutter I48.92 Volume overload E87.70 UTI (urinary tract infection) N39.0 Sepsis A41.9 Hypotension I95.9 Small cell lung cancer C34.90 Breast cancer C50.919 Acute kidney injury N17.9 Demand ischemia I24.89 Hyponatremia E87.1
[2023-03-07 18:03] LABS: Appearance Urine Clear (Clear); Bilirubin Urine Negative (Negative); Blood Urine Negative (Negative); Color Urine Yellow; Glucose Urine UA Negative (Negative); Ketones Urine Negative (Negative); Leukocyte Esterase Urine Negative (Negative); Nitrite Urine Negative (Negative); Protein Urine Negative (Negative); Specific Gravity Urine 1.008 (1.000-1.030); Urobilinogen Urine Negative (Negative)
[2023-03-07] MEDS: OLANZapine 5 MG TABLET PO SCH (21:37)
[2023-03-08 06:31] LABS: Hematocrit (blood only) 21.6 % (37.0-47.0); Mean Corpuscular Hemoglobin 32.1 pg (25.0-34.0); Mean Corpuscular Hgb Conc 32.4 g/dL (32.0-36.0); Mean Corpuscular Volume 99.1 fL (80.0-100.0); Mean Platelet Volume 9.8 fL (9.4-12.4); Platelet Count 136 K/uL (130-400); RDW Coefficient of Variation 19.2 % (11.5-14.5); RDW Standard Deviation 66.7 fL (36.4-46.3); Red Blood Count 2.18 M/uL (4.20-5.40); White Blood Count 20.03 K/ul (4.8-10.8)
[2023-03-08] MEDS: diazePAM 2 MG TABLET PO PRN ×2 (06:40→18:07)
[2023-03-08] MEDS: HEPARIN 100 UNIT/ML 5ML FLUSH FLUSH PRN (06:41)
[2023-03-08 06:45] LABS: BUN Creatinine Ratio 17.2 (10-20); Creatinine Clr Calc Pharmacy 52.9 ml/min; Est GFR (African American) 73.4 ml/min; Est GFR (Non-African American) 63.4 ml/min; Potassium 3.8 mmol/L (3.5-5.1)
[2023-03-08] MEDS: FOLIC ACID 1 MG TAB PO SCH (08:40)
[2023-03-08] MEDS: METOPROLOL SUCC 50MG EXT REL TAB PO SCH ×2 (08:41→21:06)
[2023-03-08] MEDS: PANTOprazole 40 MG TAB PO SCH ×2 (08:41→21:06)
[2023-03-08] MEDS: VIBEGRON 75 MG TAB PO SCH (08:42)
[2023-03-08] MEDS: AMOXICILLIN/CLAVULANATE 875 MG TAB PO SCH (08:42)
[2023-03-08] MEDS: CYANOCOBALAMIN (B-12) 500 MCG TABLET PO SCH (08:42)
[2023-03-08] MEDS: SERTRALINE HCL 50 MG TABLET PO SCH ×2 (08:42→21:05)
[2023-03-08] MEDS: CHOLECALCIFEROL 1,000 UNITS 25 MCG TAB PO SCH (08:43)
[2023-03-08] MEDS: predniSONE 10 MG TABLET PO SCH (08:43)
[2023-03-08] MEDS: MAGNESIUM OXIDE 400 MG TAB PO SCH (08:43)
[2023-03-08] MEDS: BUDESONIDE/GLYCOPYR/FORMOTEROL INHALER INH SCH ×2 (08:43→21:05)
[2023-03-08] MEDS: LIDOCAINE 5% 1 PATCH TD SCH (08:44)
[2023-03-08] MEDS: POLYETHYLENE (MIRALAX) 17 GM PACK PO SCH (08:44)
[2023-03-08] MEDS: CARBAMIDE PEROXIDE 6.5% 15 ML BTL OT SCH ×3 (08:44→21:07)
[2023-03-08] MEDS: ACETAMINOPHEN 500 MG TAB PO PRN ×2 (08:56→18:07)
--- NOTE | 2023-03-08 14:52 | Cardiology Progress Note ---
Date of Service March 08, 2023 Assessment & Plan (1) Paroxysmal atrial fibrillation: Plan: Reportedly some dyspnea associated with the episodes. She is certainly have additional episodes over time. She is already on systemic anticoagulation. I think from a symptom standpoint be reasonable to try to limit her episodes of atrial fibrillation. She appears to be a good candidate for amiodarone. I did discuss initiating the medication with her daughter and will start with a dose tonight. (2) Atrial flutter with rapid ventricular response: Plan: Status post ablation 2021. (3) Cardiomyopathy: Plan: Currently normal LV function Admission and Anticipated Discharge Date Admission Date: February 28, 2023 Subjective This afternoon the patient claimed he feeling well. She reports ambulating to the commode and back. She did not report limiting dyspnea or dizziness. No sense of palpitation. No paroxysmal of dyspnea today. Review of Systems Review of Systems: Per HPI Physical Exam Physical Exam: She is alert and oriented x3. Mood affect appear normal. She answered all questions appropriately. HEENT: Sclerae are anicteric. Pupils are equal and reactive to light and ac commodation. Extraocular movements were intact. Neuro: Cranial nerves intact Lungs: Normal respiratory effort Cardiac: Regular rhythm Extremities: Patient has bilateral radial pulses that are equal in intensity. There is no evidence cyanosis or clubbing. There was no evidence of significant peripheral edema bilaterally. Skin: There are no rashes noted on examination today. Results & Data Vital Signs (Past 12 Hours) Vital Signs Temp Pulse Resp BP Pulse Ox O2 Del Method O2 Flow Rate 03/08/23 12:17 36.9 C 73 19 139/70 96 Room Air 03/08/23 08:45 36.8 C 75 18 125/61 97 Nasal Cannula 2.0 03/08/23 03:00 36.6 C 84 20 127/64 97 Nasal Cannula 1 Laboratory Results Abnormal Lab Results 03/07/23 03/08/23 17:30 05:31 WBC 20.03 H RBC 2.18 L Hgb 7.0 L Hct 21.6 L MCV 99.1 MCH 32.1 MCHC 32.4 RDW Std Deviation 66.7 H RDW Coeff of Atul 19.2 H Plt Count 136 MPV 9.8 Sodium 140 Potassium 3.8 Chloride 105 Carbon Dioxide 32 Anion Gap 3 BUN 15 Creatinine 0.87 Est Cr Clr Drug Dosing 52.9 Est GFR ( Amer) 73.4 Est GFR (Non-Af Amer) 63.4 BUN/Creatinine Ratio 17.2 Glucose 83 Calcium 8.0 L Urine Color Yellow Urine Appearance Clear Urine pH 7.0 Ur Specific [place] 1.008 Urine Protein Negative Urine Glucose (UA) Negative Urine Ketones Negative Urine Blood Negative Urine Nitrite Negative Urine Bilirubin Negative Urine Urobilinogen Negative Ur Leukocyte Esterase Negative PG Care Time/CCT Total # of Minutes Spent Total Time Spent with Patient: Total time spent is greater than 50% in coordination of care (as documented) at patient's floor/unit and/or counseling patient: Coding Level of Care Code 10120 SUB INP/OBS CARE 2/35MIN Diagnoses Paroxysmal atrial fibrillation I48.0 Atrial flutter with rapid ventricular response I48.92 Cardiomyopathy I42.9
[2023-03-08] MEDS: WARFARIN SOD 2.5 MG TAB PO SCH (16:36)
[2023-03-08] MEDS: AMIODARONE 200 MG TAB PO SCH (16:38)
--- NOTE | 2023-03-08 18:17 | Hospitalist Progress Note ---
Date of Service March 08, 2023 Assessment & Plan (1) Acute hypoxic respiratory failure: Plan: The patient presents to the hospital with acute on chronic hypoxic respiratory failure, patient uses 1 L of oxygen at home, patient has a history of non-small cell lung cancer currently receiving treatment, history of DVT she presented to the hospital with acute hypoxic respiratory failure, required 4 L of oxygen, patient was treated empirically with broad-spectrum antibiotic given his pleural immunocompromise, VQ scan low probability for PE the course of admission was complicated with A-fib with rapid response, and oxygen requirement went up possible because of CHF induced by A-fib with RVR, she received Lasix.more over the course of admission was complicated with acute on chronic anemia, she received transfusion. Improving Complete the course of treatment with Augmentin and Zosyn stop Augmentin Continue Atrovent. (2) Atrial flutter: Plan: hx paroxysmal afib, NSR on admission w/ PVC and fusion complexes he has a history of ablation in January 2022 -He episodes of A-fib with RVR Consult with cardiology, possibly triggered by ongoing medical issues -On metoprolol succinate 50mg and Amiodarone On warfarin, INR of 3.9 (3) Volume overload: Plan: Patient developed pulmonary edema/hypoxic respiratory failure after receiving IV fluid during admission , he developed hyponatremia and his triamterene hydrochlorothiazide was discontinued ECHO prior w/ EF 35-40%. -Repeat ECHO w/ improvement back to normal EF, wma resolved Was on Nacl TID, recently down to 1gm daily STOPPED NACL tablets (4) UTI (urinary tract infection): Plan: Patient was treated for UTI during this admission, today the patient complained of burning sensation and suprapubic pain, repeat UA (5) Sepsis: Plan: Presented with tachypnea, hypotension w/ elevated procal and tachycardia with respiratory acidosis. Lactic wnl On chronic steroids prednisone 10mg daily Blood cx NGTD Urine cx w/ Klebsiella, was on Zosyn for pulm coverage as above Switched to AUgmentin to complete course as discussed w/ supervising provider 03/03 (6) Hypotension: Plan: suspected 2nd to poor PO intake. Lactic 1.6, but see above IV bolus in ER, continued NS thereafter @ 100cc/hr but volume overloaded as above and given lasix 03/01 w/ stable BPs and PRBC last week (per heme/onc discussion, suspected drop 2nd to chemo) BP 130/55 and stable on increased dose of metoprolol which will be continued (7) Small cell lung cancer: Plan: Recent PET scan shows liver metastasis shrinking. Recent neulasta last week Follows with Dr Ceja Concurrent chemoradiation w/ Carbo/Etoposide, completed radiation treatments 12/2021 Had received Iron transfusions over the summer Monitor hgb, suspect drop w/ volume overload but will monitor Can consult Dr Ceja if needed but discussed w/ her AM 03/02 and agreed w/ 1u PRBC and felt 2nd to chemotherapy Of note, patient declined having issue w/ chemo in past when she DID NOT get neulasta, possible she may need this held in f/u with CCP (8) Breast cancer: Plan: History of ductal cell breast cancer (9) Acute kidney injury: Plan: Acute elevation in Cr to 1.38 on 03/01, likely 2nd to contrast for CT attempted Appeared volume overloaded yesterday, CXR w/ vascular congestion and given lasix 20mg IV w/ repeat Cr 1.3 PRBC as above Placed oral salt tablets on hold (03/03) and Na stable w improved Cr Of note, Na stable w/ lasix use and renal function staying stable Renal dose meds/avoid toxins as able and monitor BMP (10) Demand ischemia: Plan: Trop elevation suspected 2nd to demand ischemia from hypoxia/respiratory failure on admission ECHO w/o wma, EF improved compared to priors. Trended down on repeat No CP reported. (11) Hyponatremia: Plan: chronic issue. 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 Discussed w/ family less free water and more gatorade/etc when taking in fluids for hydration (had been drinking lots of water, may need fluid restriction rather than lasix) Diuretics as above and monitor response Plan continued inpatient stay, afib/RVR this afternoon Admission and Anticipated Discharge Date Admission Date: February 28, 2023 Subjective Today, the patient has some concerns about leukocytosis Physical Exam Physical Exam: She is alert and oriented x3. Mood affect appear normal. She answered all questions appropriately. HEENT: Sclerae are anicteric. Pupils are equal and reactive to light and accommodation. Extraocular movements were intact. Neuro: Cranial nerves intact Lungs: Normal respiratory effort Cardiac: Regular rhythm Extremities: Patient has bilateral radial pulses that are equal in intensity. There is no evidence cyanosis or clubbing. There was no evidence of significant peripheral edema bilaterally. Skin: There are no rashes noted on examination today. Results & Data Results & Data Vital Signs (Past 12 Hours) Vital Signs Temp Pulse Resp BP Pulse Ox O2 Del Method O2 Flow Rate 03/08/23 16:00 37.1 C 75 19 111/54 L 97 Nasal Cannula 2.0 03/08/23 12:17 36.9 C 73 19 139/70 96 Room Air 03/08/23 08:45 36.8 C 75 18 125/61 97 Nasal Cannula 2.0 PG Care Time/CCT Total # of Minutes Spent Total Time Spent with Patient: Total time spent is greater than 50% in coordination of care (as documented) at patient's floor/unit and/or counseling patient: Coding Level of Care Code 55507 SUB INP/OBS CARE 3/50MIN Diagnoses Acute hypoxic respiratory failure J96.01 Atrial flutter I48.92 Volume overload E87.70 UTI (urinary tract infection) N39.0 Sepsis A41.9 Hypotension I95.9 Small cell lung cancer C34.90 Breast cancer C50.919 Acute kidney injury N17.9 Demand ischemia I24.89 Hyponatremia E87.1
[2023-03-08] MEDS: OLANZapine 5 MG TABLET PO SCH (21:06)
[2023-03-09] MEDS: HEPARIN 100 UNIT/ML 5ML FLUSH FLUSH PRN (05:34)
[2023-03-09 06:37] LABS: Hematocrit (blood only) 22.5 % (37.0-47.0); Hemoglobin 7.3 g/dl (12.0-16.0); Mean Corpuscular Hemoglobin 32.2 pg (25.0-34.0); Mean Corpuscular Hgb Conc 32.4 g/dL (32.0-36.0); Mean Corpuscular Volume 99.1 fL (80.0-100.0); Mean Platelet Volume 10.1 fL (9.4-12.4); Platelet Count 174 K/uL (130-400); RDW Coefficient of Variation 18.7 % (11.5-14.5); RDW Standard Deviation 66.2 fL (36.4-46.3); Red Blood Count 2.27 M/uL (4.20-5.40); White Blood Count 19.29 K/ul (4.8-10.8)
[2023-03-09 06:39] LABS: BUN Creatinine Ratio 18.1 (10-20); Calcium 8.3 mg/dl (8.6-10.3); Creatinine Clr Calc Pharmacy 63.9 ml/min; Est GFR (African American) 92.3 ml/min; Est GFR (Non-African American) 79.7 ml/min; Potassium 3.7 mmol/L (3.5-5.1)
[2023-03-09 06:45] LABS: INR 1.8 (0.9-1.1); Prothrombin Time 19.4 Seconds (9.0-12.0)
[2023-03-09 07:17] LABS: Anisocytosis Present; Basophils # (auto) 0.04 K/uL (0.00-0.20); Basophils % (auto) 0.2 %; Eosinophils # (auto) 0.03 K/uL (0.00-0.50); Eosinophils % (auto) 0.2 %; Immature Granulocytes % (auto) 5.2 %; Lymphocytes # (auto) 0.63 K/uL (1.20-3.40); Lymphocytes % (auto) 3.3 %; Monocytes # (auto) 1.73 K/uL (0.11-0.59); Neutrophils # (auto) 15.86 K/uL (1.40-6.50); Neutrophils % (auto) 82.1 %
[2023-03-09] MEDS: AMIODARONE 200 MG TAB PO SCH (07:34)
[2023-03-09] MEDS: PANTOprazole 40 MG TAB PO SCH (08:34)
[2023-03-09] MEDS: BUDESONIDE/GLYCOPYR/FORMOTEROL INHALER INH SCH (08:34)
[2023-03-09] MEDS: FOLIC ACID 1 MG TAB PO SCH (08:34)
[2023-03-09] MEDS: METOPROLOL SUCC 50MG EXT REL TAB PO SCH (08:34)
[2023-03-09] MEDS: predniSONE 10 MG TABLET PO SCH (08:34)
[2023-03-09] MEDS: SERTRALINE HCL 50 MG TABLET PO SCH (08:34)
[2023-03-09] MEDS: MAGNESIUM OXIDE 400 MG TAB PO SCH (08:35)
[2023-03-09] MEDS: CHOLECALCIFEROL 1,000 UNITS 25 MCG TAB PO SCH (08:35)
[2023-03-09] MEDS: LIDOCAINE 5% 1 PATCH TD SCH (08:35)
[2023-03-09] MEDS: CYANOCOBALAMIN (B-12) 500 MCG TABLET PO SCH (08:35)
[2023-03-09] MEDS: VIBEGRON 75 MG TAB PO SCH (08:35)
[2023-03-09] MEDS: POLYETHYLENE (MIRALAX) 17 GM PACK PO SCH (08:35)
[2023-03-09] MEDS: diazePAM 2 MG TABLET PO PRN (08:39)
[2023-03-09 11:31] LABS: Appearance Urine Clear (Clear); Bacteria Urine Automated Negative (Negative); Bilirubin Urine Negative (Negative); Blood Urine Negative (Negative); Color Urine Yellow; Epithelial Cell Urine Auto >30 /lpf (0-5); Glucose Urine UA Negative (Negative); Ketones Urine Negative (Negative); Leukocyte Esterase Urine Trace (Negative); Nitrite Urine Negative (Negative); Protein Urine Negative (Negative); RBC Urine Automated 0-4 /hpf (0-4); Specific Gravity Urine 1.007 (1.000-1.030); Urobilinogen Urine Negative (Negative)
[2023-03-09 11:34] VITALS: BP 123/66; PULSE 80; RESP 18; TEMP 98.4; O2SAT 93
[2023-03-09] MEDS ORDERED: BUPIVACAINE 0.5 % 5 MG/1 ML PF 10ML VIAL ONE (15:08)
--- NOTE | 2023-03-09 19:35 | Discharge Summary ---
Date of Service March 09, 2023 Admission HPI Per Admitting Provider This is a 77-year-old female with a history of metastatic small cell lung cancer, breast cancer, bladder cancer, hypertension SIADH, polymyalgia atrial flutter, COPD on home oxygen, type 2 diabetes who presents to the hospital today on account of shortness of breath according to the patient she went to see the tenderizer tender a day prior to presentation where she was checked out and given a clean bill of health. However around 1 AM she started having some shortness of breath which got worse so she decided to come to the hospital for further evaluation. She said usually at home she uses 1 L of oxygen for COPD but had needed to crank up her oxygen a little bit. Upon arrival at the emergency department her saturation was 88% and her oxygen was down to 4L. She was also hypotensive, blood pressure 95/48 and she was tachypneic respiratory rate 33 Blood cultures have been obtained urine cultures also obtained result pending chest x-ray has been done official read pending. She has been started empirically on IV antibiotics and will be admitted to the hospital further management. Principal Diagnosis Sepsis possibly secondary to pneumonia, UTI with Klebsiella, A-fib with RVR, leukocytosis possibly secondary to Lunesta, acute on chronic hypoxic respiratory failure secondary to pneumonia, suprapubic pain with pyuria needs to be followed by urologist, history of bladder cancer Discharge Exam She is alert and oriented x3. Mood affect appear normal. She answered all questions appropriately. HEENT: Sclerae are anicteric. Pupils are equal and reactive to light and accommodation. Extraocular movements were intact. Neuro: Cranial nerves intact Lungs: Normal respiratory effort Cardiac: Regular rhythm Extremities: Patient has bilateral radial pulses that are equal in intensity. There is no evidence cyanosis or clubbing. There was no evidence of significant peripheral edema bilaterally. Skin: There are no rashes noted on examination today. Discharge Data Allergies Allergy/AdvReac Type Severity Reaction Status Date / Time castor oil Allergy Severe "TAXANES" Verified 02/27/23 15:20 CAUSE DYSPNEA, RASH, ELEVATED BP docetaxel [From Taxotere] Allergy Severe "TAXANES" Verified 02/27/23 15:20 CAUSE DYSPNEA, RASH, ELEVATED BP paclitaxel Allergy Severe "TAXANES" Verified 02/27/23 15:20 CAUSE DYSPNEA, RASH, ELEVATED BP trimethoprim [From Bactrim] Allergy Severe Anaphylaxis Verified 02/27/23 15:20 Iodinated Contrast Media Allergy Intermediate HIVES/ITCHI Verified 02/27/23 15:20 NG nitrofurantoin Allergy Intermediate CHEST Verified 02/27/23 15:20 PAIN, DYSPNEA Sulfa (Sulfonamide Allergy Intermediate HIVES, Verified 02/27/23 15:20 Antibiotics) ITCHINESS, SHORTNESS OF BREATH codeine AdvReac Intermediate COLD Verified 02/27/23 15:20 SWEAT, THINGS START SPINNING, NAUSEA phenazopyridine AdvReac Intermediate N/V Verified 02/27/23 15:20 Consultations 02/28/23 06:39 ED Decision to Admit Stat 03/06/23 16:38 Consult Cardiology Routine 03/06/23 17:01 Consult Hematology Routine Hospital Course (1) Acute hypoxic respiratory failure: The patient presents to the hospital with acute on chronic hypoxic respiratory failure, patient uses 1 L of oxygen at home, patient has a history of non-small cell lung cancer currently receiving treatment, history of DVT she presented to the hospital with acute hypoxic respiratory failure, required 4 L of oxygen, patient was treated empirically with broad-spectrum antibiotic given she is immunocompromise, VQ scan low probability for PE the course of admission was complicated with A-fib with rapid response, and oxygen requirement went up possible because of CHF induced by A-fib with RVR, she received Lasix.more over the course of admission was complicated with acute on chronic anemia, she r eceived transfusion. Currently oxygen recommended at the baseline, patient consulted with cardiology, started amiodarone Complete the course of treatment with Augmentin and Zosyn stop Augmentin Continue Atrovent. (2) Atrial flutter: hx paroxysmal afib, NSR on admission w/ PVC and fusion complexes he has a history of ablation in January 2022 -He episodes of A-fib with RVR Consult with cardiology, possibly triggered by ongoing medical issues started on amiodarone -On metoprolol succinate 50mg and Amiodarone On warfarin, Supratherapeutic INR, warfarin was held, patient agreed to follow-up with PCP for managing her warfarin (3) Volume overload: Patient developed pulmonary edema/hypoxic respiratory failure after receiving IV fluid during admission , he developed hyponatremia and his triamterene hydrochlorothiazide was discontinued ECHO prior w/ EF 35-40%. -Repeat ECHO w/ improvement back to normal EF, wma resolved Was on Nacl TID, recently down to 1gm daily STOPPED NACL tablets (4) UTI (urinary tract infection): Patient was treated for UTI during this admission, the patient complained of suprapubic pain, on exam this tender, the patient complained of burning sensation , the patient has persistent pyuria, patient has history of bladder cancer, supposed to follow-up with her urologist, I offered the patient to proceed with CT of abdomen, however patient prefers to follow-up outpatient with her urologist. Patient has appointment with urologist. (5) Sepsis: Presented with tachypnea, hypotension w/ elevated procal and tachycardia with respiratory acidosis. Lactic wnl On chronic steroids prednisone 10mg daily Blood cx NGTD Urine cx w/ Klebsiella, was on Zosyn for pulm coverage as above Switched to AUgmentin , completed course of treatment. (6) Hypotension: suspected 2nd to poor PO intake. Lactic 1.6, but see above Resolved (7) Small cell lung cancer: Recent PET scan shows liver metastasis shrinking. Recent neulasta last week Follows with Dr Ceja Concurrent chemoradiation w/ Carbo/Etoposide, completed radiation treatments 12/2021 Had received Iron transfusions over the summer Patient has leukocytosis, discussed with , she is on the patient this is most likely secondary to Neulasta, patient will follow with Dr. Caballero (8) Breast cancer: History of ductal cell breast cancer (9) Acute kidney injury: Acute elevation in Cr to 1.38 on 03/01, likely 2nd to contrast for CT attempted Resolved (10) Demand ischemia: Trop elevation suspected 2nd to demand ischemia from hypoxia/respiratory failure on admission ECHO w/o wma, EF improved compared to priors. Trended down on repeat No CP reported. (11) Hyponatremia: chronic issue. per family, suspected from poor PO solute intake/prior triamterene-HCTZ use which had been discontinued suspected SIADH w/ lung ca Hydrochlorothiazide was discontinued this admission, currently sodium level is within normal range Plan Discharge home, patient will follow with her oncologist and her urologist, Total Time Total Time Spent Total Time Spent (In Minutes): 45 mins Discharge Plan Discharge Items Patient Disposition: Home - Home Health Services Reason For Visit: HYPOXIA Discharge Diagnosis: Pneumonia, acute on chronic hypoxia , Afib with RVR , UTI Activity: Resume your previous activity Lifting: Gradually increase as tolerated Non-emergency contact: Primary Care Provider and Oncologist Call non-emergency contact if: you have any medication questions and your symptoms worsen Follow-up/Referrals: Genoveva Stallings PA-C [Primary Care Provider] - 03/16/23 3:00 pm Sb Das MD [Physician] - 03/16/23 4:00 pm Katherine Ceja MD [Physician] - 03/12/23 2:30 pm Diet: Regular Addtl Attending Provider Instructions: PLEASE CHECK YOUR INR YOU SCHEDULED AND FOLLOW WITH YOUR ONCOLOGIST PLEASE FOLLOW WITH YOUR SHALE PLANER OPERATOR HELPER IN TWO WEEKS YOU HAVE PERSISTENT WBC IN YOUR URINE PLEASE FOLLOW WITH YOUR UROLOGIST Pending Studies at Discharge: No Stand-Alone Forms: My [employer], Smoking Cessation Medications and DC Order Prescriptions: New amiodarone 200 mg Tablet 200 mg PO BIDM Qty: 100 0RF ipratropium bromide 0.02 % solution 1.25 ml inhalation Q8H PRN (Reason: shortness of breath or wheezing) Qty: 150 0RF diazepam 2 mg tablet 2 mg PO BID PRN (Reason: sedation) Qty: 60 0RF Continued cholecalciferol (vitamin D3) 25 mcg (1,000 unit) capsule 25 mcg PO DAILY mecobalamin (vitamin B12) 1,000 mcg tablet,disintegrating 1,000 mcg sublingual DAILY Rx Instructions: place tablet under tongue and allow to dissolve for at least30 secs before swallowing sennosides [Senokot] 8.6 mg tablet 8.6 mg PO DAILY PRN (Reason: Constipation) melatonin 3 mg capsule 10 mg PO HS (DME) nebulizers Misc See Rx Instructions .Route Qty: 1 0RF Rx Instructions: nebulizer and nebulizer kits/supplies ANNALISA-99 Gemtesa 75 mg tablet 75 mg PO DAILY Qty: 90 3RF prednisone 10 mg tablet 10 mg PO DAILY 90 Days Qty: 90 3RF folic acid 1 mg tablet 1 mg PO QPM Qty: 30 5RF Breztri Aerosphere 160-9-4.8 mcg/actuation HFA aerosol inhaler 2 inh inhalation BID Qty: 10.7 5RF ipratropium-albuterol 0.5 mg-3 mg(2.5 mg base)/3 mL solution for nebulization 3 ml inhalation BID PRN (Reason: wheezing) Qty: 360 5RF warfarin [Jantoven] 2.5 mg tablet 2.5 - 5 mg PO DAILY Qty: 100 3RF Protocol: Dose Management Condition: Sunday (Week One) Dose/Route: 0 mg Instruction: 0 tablets Condition: Sunday Dose/Route: 0 mg Instruction: 0 tablets Condition: Sunday Dose/Route: 0 mg Instruction: 0 tablets Condition: Sunday Dose/Route: 0 mg Instruction: 0 tablets Condition: Dose/Route: 0 mg Instruction: 0 tablets Condition: Sunday Dose/Route: 5 mg Instruction: 2 x 2.5 mg tablets Condition: Sunday Dose/Route: 5 mg Instruction: 2 x 2.5 mg tablets Condition: Sunday (Week Two) Dose/Route: 2.5 mg Instruction: 1 x 2.5 mg tablet Condition: Sunday Dose/Route: 2.5 mg Instruction: 1 x 2.5 mg tablet Condition: Sunday Dose/Route: 0 mg Instruction: 0 tablets Condition: Sunday Dose/Route: 0 mg Instruction: 0 tablets Condition: Dose/Route: 0 mg Instruction: 0 tablets Condition: Sunday Dose/Route: 0 mg Instruction: 0 tablets Condition: Sunday Dose/Route: 0 mg Instruction: 0 tablets Protocol Text: Adjustment Start Date: Sunday03/09/23 INR Value: 1.8 INR Date: 03/09/23 Recheck Date: 03/13/23 Additional Instructions: Pt just discharged from the hospital today. Started on amiodarone. Pt to take 5mg today and tomorrow, 2.5mg Sun, M and recheck INR sunday. Son will call us back to make appt for sunday if not going to lab. Rx Instructions: TAKE THIS MED DAILY @4PM metoprolol succinate 50 mg tablet extended release 24 hr 50 mg PO DAILY Qty: 90 3RF sertraline 50 mg tablet See Rx Instructions .ROUTE .COMPLEX Rx Instructions: Take 50mg tablet w/ 25mg tablet to equal 75mg once daily Caltrate 600-D Plus Minerals 600 mg calcium- 800 unit-50 mg Tablet 1 tab PO BID Qty: 60 0RF trazodone 50 mg tablet 100 mg PO HS olanzapine 5 mg tablet 5 mg PO QPM acetaminophen [Tylenol Extra Strength] 500 mg Tablet 1,000 mg PO TID Qty: 30 0RF docusate sodium [Colace] 100 mg capsule 100 mg PO BID PRN (Reason: Constipation) polyethylene glycol 3350 [Miralax] 17 gram/dose powder 17 g PO DAILY PRN (Reason: Constipation) pantoprazole 40 mg Tablet,Delayed Release (Dr/Ec) 40 mg PO DAILY Qty: 30 0RF ondansetron HCl 8 mg tablet 8 mg PO Q8H PRN (Reason: Nausea) oxycodone 5 mg tablet 0 mg PO Q8H PRN (Reason: Pain) Rx Instructions: Per med list from preferred pharmacy, this medication is currently on hold. Original directions are 5mg by mouth every 8 hours as needed for pain sertraline 25 mg tablet See Rx Instructions .ROUTE .COMPLEX Rx Instructions: Take 25mg tablet w/ 50mg tablet to equal 75mg once daily lidocaine 5 % adhesive patch,medicated 0 patch transdermal Q24H Rx Instructions: Per med list from preferred pharmacy, this medication is currently on hold. Original directions are 1 patch topically every 24 hours Discontinued triamterene-hydrochlorothiazid 37.5-25 mg tablet 1 tab PO QAM Discharge Orders: Discharge Order (Routine); Ordered 03/09/23 Ordered By: Moreno Jara Admission Data Admit Date/Time: 02/28/23 06:41 Attending Provider: Moreno Jara Admit Provider: Karl Landers Primary Care Provider: Genoveva Stallings Other Providers: Karl Landers; [facility]; Katherine Ceja; Sb Das Other Interventions: Discharge Summary Assessment (RN) Last Done: 03/09/23 12:47 Coding Level of Care Code 98597 INP/OBS DISCH >30 MIN Diagnoses Acute hypoxic respiratory failure J96.01 Atrial flutter I48.92 Volume overload E87.70 UTI (urinary tract infection) N39.0 Sepsis A41.9 Hypotension I95.9 Small cell lung cancer C34.90 Breast cancer C50.919 Acute kidney injury N17.9 Demand ischemia I24.89 Hyponatremia E87.1
== END 2023-03-09 13:47 | disposition home health service (06) | DRG 871 ==
LOC: ED 05:00 → SUATTDRO 06:41 → EDINP 06:41 → 2E 09:03

== ENCOUNTER 2023-06-11 15:39 | Inpatient (IN) ==
--- NOTE | 2023-06-11 15:51 | ED Triage Note ---
Date of Service June 11, 2023 Provider in Triage Author: Chidi Marroquin History of Present Illness This patient was briefly evaluated while in triage. An abbreviated physical exam was performed. This patient is a 77-year-old Female who presents to the ED for evaluation sent by Heme/Onc for concerns about pneumonia-cough and congestion x weeks +influenza recently was supposed to have a chest CT today having chest pain Physical Exam GENERAL: NAD CARDIOVASCULAR: RRR RESPIRATORY: CTA ABDOMEN: BS x 4. Nontender to palpation. Initial orders for labs and / or imaging were placed and patient was placed in the waiting area until a bed is available. Please see further documentation for the full ED course.
[2023-06-11 18:17] LABS: Hematocrit (blood only) 32.7 % (37.0-47.0); Hemoglobin 10.4 g/dl (12.0-16.0); Mean Corpuscular Hemoglobin 33.1 pg (25.0-34.0); Mean Corpuscular Hgb Conc 31.8 g/dL (32.0-36.0); Mean Corpuscular Volume 104.1 fL (80.0-100.0); Mean Platelet Volume 9.6 fL (9.4-12.4); Platelet Count 136 K/uL (130-400); RDW Coefficient of Variation 15.9 % (11.5-14.5); RDW Standard Deviation 61.1 fL (36.4-46.3); Red Blood Count 3.14 M/uL (4.20-5.40); White Blood Count 10.61 K/ul (4.8-10.8)
--- NOTE | 2023-06-11 18:23 | XRay Report ---
TWO VIEW CHEST CLINICAL HISTORY: Cough. FINDINGS: PA and lateral chest radiographs are compared to study dated 05/19/2023. Correlation is made with chest CT dated 04/25/2023. A left subclavian central venous infusion port is unchanged in posi tion. The heart is enlarged noting atherosclerotic calcification of the thoracic aorta. The pulmonary vasculature is noncongested. There is chronic elevation of the left hemidiaphragm with bibasilar sca rring/atelectasis. A calcified granuloma is again seen in the left upper lung. No airspace consolidat ion or large pleural effusion is identified. No pneumothorax is seen. The skeletal structures are ost eopenic. Degenerative change is noted in the thoracic spine. Thoracic compression deformities are not ed. IMPRESSION: Cardiomegaly with no acute cardiopulmonary abnormality identified. ACT 112: Negative or not required by law. Electronically signed by: Zaki Brian M.D. 06/11/2023 6:22 PM
[2023-06-11 18:31] LABS: Alanine Aminotransferase 9 U/L (7-52); Albumin Globulin Ratio 1.1 (0.9-2); Albumin Level 3.2 gm/dl (3.4-5.0); Alkaline Phosphatase 70 U/L (34-104); Anion Gap 5 (3-11); Aspartate Aminotransferase 10 U/L (13-39); Bilirubin,Total 0.6 mg/dl (0.2-1.0); Blood Urea Nitrogen 16 mg/dl (6-23); Calcium 9.1 mg/dl (8.6-10.3); Carbon Dioxide 30 mmol/L (21-32); Chloride 99 mmol/L (98-107); Est GFR (African American) 62.1 ml/min; Est GFR (Non-African American) 53.5 ml/min; Globulin 2.9 gm/dl (2.5-4.0); Glucose 131 mg/dl (70-99(Fasting)); Potassium 4.7 mmol/L (3.5-5.1); Sodium 134 mmol/L (136-145); Total Protein 6.1 gm/dl (6.0-8.3)
--- NOTE | 2023-06-11 18:34 | Emergency Department Note ---
Impression & Plan Pneumonia, Acute hypotension ED Provider Note NAME: MEG HOBBS AGE: 77 SEX: F : 1945 ARRIVES VIA: Walk-In INFORMANT: Patient ED PROVIDER(S): Chidi Marroquin DO CHIEF COMPLAINT: chest pain HPI: Patient is a 77-year-old female who presents to the ER for chest pain. 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 She has had a cough and congestion for the past 3 days associated with a yellow to green productive sputum. She comes in today as she has been very weak. She was referred in by the cancer clinic clinic. Additional history obtained by daughter who is present at bedside he notes that she has become very weak and they want additional imaging of her and consequently referred her over. Denies any dysuria urgency or frequency. No open wounds or sores. She does note that she has pain across her lower chest and has been present for the past 10 days. Is worse with coughing twisting turning and bending. She has not had any low Coumadin numbers recently. ADDITIONAL HISTORY OBTAINED: Per HPI Chronic Medical/Social Conditions Affecting Care: Per HPI PAST MEDICAL HISTORY:See Below PAST SURGICAL HISTORY:See Below FAMILY HISTORY:See Below SOCIAL HISTORY:See Below HOME MEDICATIONS:See Below ALLERGIES:See Below VITALS:See Below PHYSICAL EXAMINATION: GENERAL: Sitting up in bed, alert, ill-appearing, disheveled EYE EXAM: normal conjunctiva. PERRL and EOM's grossly intact. OROPHARYNX: no exudate, no erythema, lips, buccal mucosa, and tongue normal and mucous membranes are moist NECK: supple, no nuchal rigidity, no adenopathy, non-tender LUNGS: Clear to auscultation. Normal chest wall mechanics HEART: no murmurs, S1 normal and S2 normal ABDOMEN: abdomen soft, non-tender, normo-active bowel sounds, no masses, no rebound or guarding. UPPER EXTREMITIES: upper extremities are grossly normal. LOWER EXTREMITIES: No pitting edema. NEURO EXAM: Normal sensorium, cranial nerves II-XII grossly intact, normal speech, no gross weakness of arms, no gross weakness of legs. MEDICAL DECISION MAKING: Patient is a 73-year-old female with metastatic small cell lung cancer that presents the ER for upper respiratory symptoms. Upon presentation she was found to be hypotensive. I evaluated her in the waiting room. Patient was seen and evaluated around 625. Discussed with the charge nurse and triage nurse that patient needs a bed now as she is hypotensive. Labs show no significant leukocytosis but a mild anemia 10.4. INR was therapeutic at 2.9. BMP along with LFTs bilirubin was unremarkable. Troponin was negative. UA was pending upon admission and viral panel was negative. Chest x-ray showed no focal infiltrate but based on her symptoms and hypotension do favor there is a likely pneumonia. Additional history was obtained by daughter who was present at bedside. She was requesting a CT with IV contrast as that was what was recommended by the outpatient cancer care providers. I expressed that this is likely not beneficial as patient's INR has been therapeutic for the past 3 months with the exception of one low reading at 1.8. Do not feel this consistent with a PE. No benefit for dissection study at this time either. Again do favor that this is purely infectious and patient was covered with IV cefepime and IV fluids and updated bedside discussed with the hospitalist for further evaluation management treatment and will defer to them for additional imaging. Consults/Care Managements Discussions: Per [facility] Triage Nursing notes reviewed. Limited review of prior medical records performed Vital Signs: reviewed and remarkable for no significant abnormalities Differential diagnosis: Cardiac ischemia, aortic dissection, pulmonary embolism, pneumothorax, pneumonia, pericarditis, myocarditis, esophageal rupture, GERD, cholecystitis, pancreatitis, musculoskeletal, as well as other pathologies. ER treatment provided: See below Diagnostics interpreted by me include EKG and cardiac monitoring as listed below: -Cardiac Monitoring: An order was placed for continuous cardiac monitoring. The monitor shows a rate of 80 with sinus rhythm. -ECG: Sinus rhythm rate of 77 Left anterior fascicular block QTc 479 Right bundle branch block Poor baseline in lateral leads -Laboratory studies:Interpreted by me as stated above in MDM and shown below. Imaging studies: Xrays: As interpreted by me: 2 views of the chest showed no focal infiltrate CTs show: none Procedures:none Critical Care: None Past Med/Surg History Medical History Dysphagia Primary small cell malignant neoplasm of lung, stage 4 Acute kidney injury Hypomagnesemia Sepsis Non-ST elevation [place] (NSTEMI) Acute UTI (urinary tract infection) Cardiomyopathy Paroxysmal atrial fibrillation Hyponatremia Breast cancer DVT (deep venous thrombosis) (10/2022) LFTs abnormal Pneumonia Liver lesion Excessive cerumen in both ear canals Anxiety Insomnia Urinary incontinence Chronic hypoxemic respiratory failure Chronic obstructive pulmonary disease Hypomagnesemia Anemia Anticoagulant long-term use UTI (urinary tract infection) Chronic respiratory failure with hypoxia Polymyalgia rheumatica Small cell lung cancer Atrial flutter with rapid ventricular response GERD (gastroesophageal reflux disease) Pancytopenia due to antineoplastic chemotherapy Ex-smoker Lower extremity edema Hemoptysis Chronic dyspnea Small cell lung cancer Malignant neoplasm of lung Hearing deficit Vertebral fracture Osteoporosis Tremor Migraine Compression fracture of L1 vertebra (08/15/21) Endometrial thickening on ultrasound Ureteral tumor Port-A-Cath in place Liver abscess History of diverticulitis Hx of bladder cancer History of liver disease Asthma (04/25/12) Diabetes mellitus, type 2 History of breast cancer Left rib fracture (2016) Surgical History S/P ablation of atrial flutter History of bronchoscopy Nausea and vomiting after administration of anesthetic agent H/O cystoscopy History of colonoscopy History of surgery History of lumpectomy of right breast History of elbow surgery History of arthroscopy History of breast biopsy History of surgery History of appendectomy History of cholecystectomy Family History Other Adopted Family history unknown Social History Smoking Status: Former smoker Tobacco Type: Cigarettes Cigarettes Per Day: Less than 1/2 PPD now;Smoked 50+yrs;; Second Hand Exposure: No; Do You Dip or Chew Tobacco: No; Hx Alcohol Use: No Hx Substance Use: No Preferred Language: Nepalese Communication Ability: Effective Communication Tools: Other Visual Impairment: No Limitations Hearing Ability: Hard of Hearing [employer] Required: No Beliefs That Will Affect Care: None marital status: Single Current Living Situation: Other Current Living Situation Comment: Lives with roommate current occupational status: retired Feels Safe at Home: Yes Childhood Exposure to Second-Hand Smoke: Yes Diet: regular caffeine: No during the past year weight has: remained stable Dental Care, Regularly: Yes Physical Activity Frequency: 1-2 Times per Week Seatbelt Use: always Sunscreen Use: Yes Assistive Devices: Hospital Bed, Oxygen - Continuous, Walker and Wheelchair Allergies Allergies Allergy/AdvReac Type Severity Reaction Status Date / Time castor oil Allergy Severe "TAXANES" Verified 06/11/23 18:59 CAUSE DYSPNEA, RASH, ELEVATED BP docetaxel [From Taxotere] Allergy Severe "TAXANES" Verified 06/11/23 18:59 CAUSE DYSPNEA, RASH, ELEVATED BP paclitaxel Allergy Severe "TAXANES" Verified 06/11/23 18:59 CAUSE DYSPNEA, RASH, ELEVATED BP trimethoprim [From Bactrim] Allergy Severe Anaphylaxis Verified 06/11/23 18:59 Iodinated Contrast Media Allergy Intermediate HIVES/ITCHI Verified 06/11/23 18:59 NG nitrofurantoin Allergy Intermediate CHEST Verified 06/11/23 18:59 PAIN, DYSPNEA Sulfa (Sulfonamide Allergy Intermediate HIVES, Verified 06/11/23 18:59 Antibiotics) ITCHINESS, SHORTNESS OF BREATH codeine AdvReac Intermediate COLD Verified 06/11/23 18:59 SWEAT, THINGS START SPINNING, NAUSEA phenazopyridine AdvReac Intermediate N/V Verified 06/11/23 18:59 Home Meds Home Medications Medication Instructions Recorded Confirmed cholecalciferol (vitamin D3) 25 25 mcg PO DAILY 12/01/21 06/11/23 mcg (1,000 unit) capsule sennosides 8.6 mg tablet (Senokot) 8.6 mg PO DAILY PRN Constipation 06/01/22 06/11/23 mecobalamin (vitamin B12) 1,000 1,000 mcg sublingual DAILY 10/26/22 06/11/23 mcg disintegrating tablet,sublingual docusate sodium 100 mg capsule 100 mg PO BID Constipation 01/03/23 06/11/23 (Colace) polyethylene glycol 3350 17 17 g PO DAILY PRN Constipation 01/03/23 06/11/23 gram/dose oral powder (Miralax) olanzapine 5 mg tablet 5 mg PO QPM 01/10/23 06/11/23 trazodone 50 mg tablet 100 mg PO HS 01/10/23 06/11/23 ondansetron HCl 8 mg tablet 8 mg PO Q8H PRN Nausea 01/22/23 06/11/23 oxycodone 5 mg tablet 0 mg PO Q8H PRN Pain 01/22/23 06/11/23 sertraline 50 mg tablet 100 mg PO HS 02/27/23 06/11/23 lidocaine 5 % topical patch 0 patch transdermal Q24H PRN Other 02/28/23 06/11/23 furosemide 20 mg tablet 20 mg PO QAM PRN Other 05/19/23 06/11/23 acetaminophen 500 mg tablet 1,000 mg PO .BID-TID 06/11/23 06/11/23 (Tylenol Extra Strength) ipratropium 0.5 mg-albuterol 3 mg 3 ml inhalation BID wheezing 06/11/23 06/11/23 (2.5 mg base)/3 mL nebulization soln ipratropium 0.5 mg-albuterol 3 mg 3 ml inhalation Q6 PRN Shortness 06/11/23 06/11/23 (2.5 mg base)/3 mL nebulization Of Breath Or Wheezing soln melatonin 10 mg tablet 10 mg PO HS 06/11/23 06/11/23 warfarin 2.5 mg tablet (Jantoven) 1.25 mg PO .DAILY THRU Sun06/11/23 06/11/23 Previous Rx's Medication Instructions Recorded nebulizers #1 ea 12/05/21 calcium 600 mg-D3 800 unit-mag11 1 tab PO BID #60 tabs 04/27/22 50 sx-nnqa-gwosvj-beulah-s.borat tablet (Caltrate 600-D Plus Minerals) vibegron 75 mg tablet (Gemtesa) 75 mg PO DAILY #90 tabs 07/20/22 budesonide 160 mcg-glycopyr 9 2 inh inhalation BID #10.7 grams 12/11/22 mcg-formot 4.8 mcg/actuation HFA inhaler (Breztri Aerosphere) folic acid 1 mg tablet 1 mg PO QPM #30 tabs 12/11/22 diazepam 2 mg tablet 2 mg PO BID PRN sedation #60 tabs 03/09/23 amiodarone 200 mg tablet 200 mg PO DAILY #90 tabs 05/17/23 magnesium oxide 400 mg (241.3 mg 400 mg PO QAM 30 days #30 tabs 05/19/23 magnesium) tablet prednisone 10 mg tablet 10 mg PO DAILY #30 tabs 06/06/23 Results & Data (ED) Vital Signs Vital Signs - 24 hr 06/11/23 15:50 06/11/23 18:42 06/11/23 18:56 Temperature 36.6 C Temperature Source Temporal Artery Scan Pulse Rate 81 73 Pulse Rate [Apical] 78 Respiratory Rate 24 23 Respiratory Effort / Characteristics Non-Labored Respiratory Depth Normal Blood Pressure 86/49 L Blood Pressure [Left Arm] 114/52 L Blood Pressure Mean 61 Blood Pressure Mean [Left Arm] 72 Pulse Oximetry 97 99 Oxygen Delivery Method Nasal Cannula Oxygen Flow Rate 2 Sepsis Recent Fever Within 48 Hours No Sepsis New/Unexplained Change in Mental Status N/A Sepsis Action Taken by Nursing No Action Required Laboratory Data 06/11/23 17:40 06/11/23 17:40 Lab Results 06/11/23 06/11/23 Range/Units 17:40 18:45 WBC 10.61 (4.8-10.8) K/ul RBC 3.14 L (4.20-5.40) M/uL Hgb 10.4 L (12.0-16.0) g/dl Hct 32.7 L (37.0-47.0) % MCV 104.1 H (80.0-100.0) fL MCH 33.1 (25.0-34.0) pg MCHC 31.8 L (32.0-36.0) g/dL RDW Std Deviation 61.1 H (36.4-46.3) fL RDW Coeff of Atul 15.9 H (11.5-14.5) % Plt Count 136 (130-400) K/uL MPV 9.6 (9.4-12.4) fL Immature Gran % (Auto) 0.8 % Neut % (Auto) 92.3 % Lymph % (Auto) 2.4 % [place] % (Auto) 4.2 % Eos % (Auto) 0.1 % Baso % (Auto) 0.2 % Neut # (Auto) 9.80 H (1.40-6.50) K/uL Lymph # (Auto) 0.25 L (1.20-3.40) K/uL [place] # (Auto) 0.45 (0.11-0.59) K/uL Eos # (Auto) 0.01 (0.00-0.50) K/uL Baso # (Auto) 0.02 (0.00-0.20) K/uL Immature Gran # (Auto) 0.08 (0.01-0.20) K/uL PT 29.8 H (9.0-12.0) Seconds INR 2.9 H (0.9-1.1) APTT 48 H (21-31) Seconds PTT Ratio 1.7 Sodium 134 L (136-145) mmol/L Potassium 4.7 (3.5-5.1) mmol/L Chloride 99 (98-107) mmol/L Carbon Dioxide 30 (21-32) mmol/L Anion Gap 5 (3-11) BUN 16 (6-23) mg/dl Creatinine 1.00 (0.6-1.2) mg/dl Est Cr Clr Drug Dosing Not Reportable Est GFR ( Amer) 62.1 ml/min Est GFR (Non-Af Amer) 53.5 ml/min BUN/Creatinine Ratio 16.0 (10-20) Glucose 131 H (70-99(Fasting)) mg/dl Calcium 9.1 (8.6-10.3) mg/dl Total Bilirubin 0.6 (0.2-1.0) mg/dl AST 10 L (13-39) U/L ALT 9 (7-52) U/L Alkaline Phosphatase 70 (34-104) U/L Troponin I High Sens 10.3 (0-14) pg/ml Total Protein 6.1 (6.0-8.3) gm/dl Albumin 3.2 L (3.4-5.0) gm/dl Globulin 2.9 (2.5-4.0) gm/dl Albumin/Globulin Ratio 1.1 (0.9-2) Adenovirus (PCR) Not Detected (NotDetected) B. pertussis DNA (PCR) Not Detected (NotDetected) B.parapertussis DNA PCR Not Detected (NotDetected) C. pneumoniae DNA (PCR) Not Detected (NotDetected) Coronavirus OC43 (PCR) Not Detected (NotDetected) Coronavirus HKU1 (PCR) Not Detected (NotDetected) Coronavirus 229E (PCR) Not Detected (NotDetected) SARS-CoV-2 (PCR) Not Detected (NotDetected) Coronavirus NL63 (PCR) Not Detected (NotDetected) Human Metapneumovir PCR Not Detected (NotDetected) Influenza Type A (PCR) Not Detected (NotDetected) Influenza Type B (PCR) Not Detected (NotDetected) M. pneumoniae (PCR) Not Detected (NotDetected) Parainfluenza 1 (PCR) Not Detected (NotDetected) Parainfluenza 2 (PCR) Not Detected (NotDetected) Parainfluenza 3 (PCR) Not Detected (NotDetected) Parainfluenza 4 (PCR) Not Detected (NotDetected) RSV (PCR) Not Detected (NotDetected) Entero/Rhino (PCR) Not Detected (NotDetected) Administered Medications Discontinued Medications Sodium Chloride (Nss) 1,000 mls @ 999 mls/hr IV .Q1H1M ONE Stop: 06/11/23 19:33 Last Infusion: 06/11/23 22:16 Dose: Infused Documented By: Admin: 06/11/23 18:59 Dose: 999 mls/hr Documented By: CLAUDE Cefepime HCl (Maxipime) 2,000 mg in 20 mls @ 5 mls/min IV NOW STA; Protocol Stop: 06/11/23 18:36 Last Admin: 06/11/23 18:59 Dose: 5 mls/min Documented By: CLAUDE Olanzapine (Olanzapine 5 Mg Tablet) 5 mg PO NOW STA Stop: 06/11/23 20:27 Last Admin: 06/11/23 21:50 Dose: 5 mg Documented By: CLAUDE Sertraline HCl (Sertraline Hcl 100 Mg Tablet) 100 mg PO NOW STA Stop: 06/11/23 20:27 Last Admin: 06/11/23 21:50 Dose: 100 mg Documented By: CLAUDE Trazodone HCl (Trazodone Hcl 100 Mg Tab) 100 mg PO NOW STA Stop: 06/11/23 20:26 Last Admin: 06/11/23 21:50 Dose: 100 mg Documented By: CLAUDE Warfarin Sodium (Warfarin Sod 1.25 Mg Tab) 1.25 mg PO NOW STA Stop: 06/11/23 20:26 Last Admin: 06/11/23 21:50 Dose: 1.25 mg Documented By: CLAUDE Imaging Data Radiologist's Impression: Chest X-Ray 06/11/23 16:54 TWO VIEW CHEST CLINICAL HISTORY: Cough. FINDINGS: PA and lateral chest radiographs are compared to study dated 05/19/2023. Correlation is made with chest CT dated 04/25/2023. A left subclavian central venous infusion port is unchanged in position. The heart is enlarged noting atherosclerotic calcification of the thoracic aorta. The pulmonary vasculature is noncongested. There is chronic elevation of the left hemidiaphragm with bibasilar scarring/atelectasis. A calcified granuloma is again seen in the left upper lung. No airspace consolidation or large pleural effusion is identified. No pneumothorax is seen. The skeletal structures are osteopenic. Degenerative change is noted in the thoracic spine. Thoracic compression deformities are noted. IMPRESSION: Cardiomegaly with no acute cardiopulmonary abnormality identified. ACT 112: Negative or not required by law. Electronically signed by: Zaki Brian M.D. 06/11/2023 6:[address] 06/11/23 20:19 Exam(s): CT CHEST Without Contrast EXAM: CT Chest Without Intravenous Contrast CLINICAL HISTORY: Reason for exam: ?PNA - h/o metastatic lung CA. TECHNIQUE: Axial computed tomography images of the chest without intravenous contrast. Automated exposure control was utilized for the study. A dose lowering technique was utilized adhering to the principles of ALARA. COMPARISON: No relevant prior studies available. FINDINGS: Lungs: Airspace consolidation of the RIGHT lung base, concerning for aspiration pneumonia. Additional, linear consolidations in the lingula, RIGHT middle lobe, and LEFT lung base, correlate for additional areas of pneumonia. No mass. Pleural space: Unremarkable. No pleural effusion or pneumothorax. Heart: Unremarkable. No cardiomegaly. No significant pericardial effusion. No significant coronary artery calcifications. Bones/joints: Degenerative changes of the spine. No acute fracture. No dislocation. Soft tissues: Unremarkable. Vasculature: Atherosclerotic changes of the aorta. No thoracic aortic aneurysm. Lymph nodes: Unremarkable. No enlarged lymph nodes. IMPRESSION: Airspace consolidation of the RIGHT lung base, concerning for aspiration pneumonia. Additional, linear consolidations in the lingula, RIGHT middle lobe, and LEFT lung base, correlate for additional areas of pneumonia. Electronically signed by: Shay Cruz MD 06/11/23 21:31 PM Discharge Plan Visit Data Chief Complaint: Illness Stated Complaint: POSSILE PNEUMONIA ED Provider: Chidi Marroquin Discharge Problem: Pneumonia, Acute hypotension Discharge Problem: Pneumonia Qualifiers: Pneumonia type: due to unspecified organism Laterality: unspecified laterality Lung location: unspecified part of lung Qualified Code(s): J18.9 - Pneumonia, unspecified organism
[2023-06-11 18:36] LABS: Troponin I High Sensitivity 10.3 pg/ml (0-14)
[2023-06-11 18:42] LABS: INR 2.9 (0.9-1.1); Partial Thromboplastin Ratio 1.7; Partial Thromboplastin Time 48 Seconds (21-31); Prothrombin Time 29.8 Seconds (9.0-12.0)
[2023-06-11 18:50] LABS: Basophils # (auto) 0.02 K/uL (0.00-0.20); Basophils % (auto) 0.2 %; Eosinophils # (auto) 0.01 K/uL (0.00-0.50); Eosinophils % (auto) 0.1 %; Immature Granulocytes # (auto) 0.08 K/uL (0.01-0.20); Immature Granulocytes % (auto) 0.8 %; Lymphocytes # (auto) 0.25 K/uL (1.20-3.40); Lymphocytes % (auto) 2.4 %; Monocytes # (auto) 0.45 K/uL (0.11-0.59); Monocytes % (auto) 4.2 %; Neutrophils % (auto) 92.3 %
[2023-06-11] MEDS: CEFEPIME 2,000 MG/20 ML VIAL IV STA (18:59)
[2023-06-11] MEDS: SODIUM CHLORIDE 0.9% 1,000 ML IV ONE (18:59)
[2023-06-11 20:07] LABS: Adenovirus PCR Not Detected (NotDetected); Bordetella parapertussis PCR Not Detected (NotDetected); Bordetella pertussis PCR Not Detected (NotDetected); Chlamydia pneumoniae PCR Not Detected (NotDetected); Coronavirus 229E PCR Not Detected (NotDetected); Coronavirus CoV-2 (COVID19)PCR Not Detected (NotDetected); Coronavirus HKU1 PCR Not Detected (NotDetected); Coronavirus NL63 PCR Not Detected (NotDetected); Coronavirus OC43PCR Not Detected (NotDetected); Human Metapneumovirus PCR Not Detected (NotDetected); Influenza A PCR Not Detected (NotDetected); Influenza B PCR Not Detected (NotDetected); Mycoplasma pneumoniae PCR Not Detected (NotDetected); Parainfluenza Virus 1 PCR Not Detected (NotDetected); Parainfluenza Virus 2 PCR Not Detected (NotDetected); Parainfluenza Virus 3 PCR Not Detected (NotDetected); Parainfluenza Virus 4 PCR Not Detected (NotDetected); Respiratory Syncytial VirusPCR Not Detected (NotDetected); Rhinovirus/Enterovirus PCR Not Detected (NotDetected)
--- NOTE | 2023-06-11 20:29 | History & Physical Report ---
Date of Service June 11, 2023 Assessment & Plan (1) Pneumonia: Plan: 77yo female presenting with productive cough, congestion and weakness. 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 She is afebrile, non-toxic in appearance, no respiratory distress. Initially hypotensive which has since resolved. CT findings as above, concerning for bilateral PNA, possible aspiration. -Admit to medical -Maintain aspiration precautions -Follow cultures -Continue supplemental O2 - on 2L continuous at home -Zosyn 4.5gm IV q 8 -Tylenol PRN -Guaifenesin syrup PRN (2) Paroxysmal atrial fibrillation: Plan: Patient presently in NSR -Continue Coumadin - patient is currently on 1.25mg po daily until this Sunday. INR =2.9 with goal of 2.5 - 3.5 per daughter. -Continue Amiodarone (3) Polymyalgia rheumatica: Plan: Chronic. Stable. Patient on Prednisone 10mg po daily -Continue Prednisone -Low threshold for stress dosed steroids if patient appears septic or becomes hypotensive (4) GERD (gastroesophageal reflux disease): Plan: With worsening epigastric pain which has been ongoint -Protonix 40mg po daily -Carafate 1gm po QID (5) Chronic obstructive pulmonary disease: Plan: No wheezing at present. No respiratory distress -Continue Albuterol/Ipratropium BID and q 6 hours PRN History of Present Illness Chief Complaint: Cough, congestion Primary Care Provider: Chandan Bro MD Carla Ward is a 77yo female with history of metastatic lung cancer on immunotherapy and supplemental O2 2L, PAF, COPD, DM and SIADH presenting from [facility] with several weeks of ongoing cough productive for green sputum and congestion as well as generalized weakness and pleuritic chest pain. Patient had the flu approximately 5-6 weeks ago and had not fully recovered. She did take a course of antibiotics. She reports ongoing symptoms. She was seen in Oncology clinic today and sent to the ER due to concern for pneumonia and possible PE. Patient has also had progressive upper abdominal pain for the last week. Additionally patient reports chest heaviness at times as well as hoarseness of her voice. Otherwise denies abdominal pain, nausea, vomiting, diarrhea, urinary complaints. No sick contacts or recent travel. In the ER she is afebrile, blood pressure initially 86/49 which improved with IVF. ER Course: Cefepime nss Allergies Allergy/AdvReac Type Severity Reaction Status Date / Time castor oil Allergy Severe "TAXANES" Verified 06/11/23 18:59 CAUSE DYSPNEA, RASH, ELEVATED BP docetaxel [From Taxotere] Allergy Severe "TAXANES" Verified 06/11/23 18:59 CAUSE DYSPNEA, RASH, ELEVATED BP paclitaxel Allergy Severe "TAXANES" Verified 06/11/23 18:59 CAUSE DYSPNEA, RASH, ELEVATED BP trimethoprim [From Bactrim] Allergy Severe Anaphylaxis Verified 06/11/23 18:59 Iodinated Contrast Media Allergy Intermediate HIVES/ITCHI Verified 06/11/23 18:59 NG nitrofurantoin Allergy Intermediate CHEST Verified 06/11/23 18:59 PAIN, DYSPNEA Sulfa (Sulfonamide Allergy Intermediate HIVES, Verified 06/11/23 18:59 Antibiotics) ITCHINESS, SHORTNESS OF BREATH codeine AdvReac Intermediate COLD Verified 06/11/23 18:59 SWEAT, THINGS START SPINNING, NAUSEA phenazopyridine AdvReac Intermediate N/V Verified 06/11/23 18:59 Home Medications Medication Instructions Recorded Confirmed Type cholecalciferol (vitamin D3) 25 25 mcg PO DAILY 12/01/21 06/11/23 History mcg (1,000 unit) capsule nebulizers #1 ea 12/05/21 06/11/23 Rx calcium 600 mg-D3 800 unit-mag11 1 tab PO BID #60 tabs 04/27/22 06/11/23 Rx 50 rz-yoaj-ekrirs-beulah-s.borat tablet (Caltrate 600-D Plus Minerals) sennosides 8.6 mg tablet (Senokot) 8.6 mg PO DAILY PRN Constipation 06/01/22 06/11/23 History vibegron 75 mg tablet (Gemtesa) 75 mg PO DAILY #90 tabs 07/20/22 06/11/23 Rx mecobalamin (vitamin B12) 1,000 1,000 mcg sublingual DAILY 10/26/22 06/11/23 History mcg disintegrating tablet,sublingual budesonide 160 mcg-glycopyr 9 2 inh inhalation BID #10.7 grams 12/11/22 06/11/23 Rx mcg-formot 4.8 mcg/actuation HFA inhaler (Breztri Aerosphere) folic acid 1 mg tablet 1 mg PO QPM #30 tabs 12/11/22 06/11/23 Rx docusate sodium 100 mg capsule 100 mg PO BID Constipation 01/03/23 06/11/23 History (Colace) polyethylene glycol 3350 17 17 g PO DAILY PRN Constipation 01/03/23 06/11/23 History gram/dose oral powder (Miralax) olanzapine 5 mg tablet 5 mg PO QPM 01/10/23 06/11/23 History trazodone 50 mg tablet 100 mg PO HS 01/10/23 06/11/23 History ondansetron HCl 8 mg tablet 8 mg PO Q8H PRN Nausea 01/22/23 06/11/23 History oxycodone 5 mg tablet 0 mg PO Q8H PRN Pain 01/22/23 06/11/23 History sertraline 50 mg tablet 100 mg PO HS 02/27/23 06/11/23 History lidocaine 5 % topical patch 0 patch transdermal Q24H PRN Other 02/28/23 06/11/23 History diazepam 2 mg tablet 2 mg PO BID PRN sedation #60 tabs 03/09/23 06/11/23 Rx amiodarone 200 mg tablet 200 mg PO DAILY #90 tabs 05/17/23 06/11/23 Rx furosemide 20 mg tablet 20 mg PO QAM PRN Other 05/19/23 06/11/23 History magnesium oxide 400 mg (241.3 mg 400 mg PO QAM 30 days #30 tabs 05/19/23 06/11/23 Rx magnesium) tablet prednisone 10 mg tablet 10 mg PO DAILY #30 tabs 06/06/23 06/11/23 Rx acetaminophen 500 mg tablet 1,000 mg PO .BID-TID 06/11/23 06/11/23 History (Tylenol Extra Strength) ipratropium 0.5 mg-albuterol 3 mg 3 ml inhalation BID wheezing 06/11/23 06/11/23 History (2.5 mg base)/3 mL nebulization soln ipratropium 0.5 mg-albuterol 3 mg 3 ml inhalation Q6 PRN Shortness 06/11/23 06/11/23 History (2.5 mg base)/3 mL nebulization Of Breath Or Wheezing soln melatonin 10 mg tablet 10 mg PO HS 06/11/23 06/11/23 History warfarin 2.5 mg tablet (Jantoven) 1.25 mg PO .DAILY THRU Sun06/11/23 06/11/23 History Past Med/Surg History Medical History Dysphagia Primary small cell malignant neoplasm of lung, stage 4 Acute kidney injury Hypomagnesemia Sepsis Non-ST elevation GA (NSTEMI) Acute UTI (urinary tract infection) Cardiomyopathy Paroxysmal atrial fibrillation Hyponatremia Breast cancer DVT (deep venous thrombosis) (10/2022) LFTs abnormal Pneumonia Liver lesion Excessive cerumen in both ear canals Anxiety Insomnia Urinary incontinence Chronic hypoxemic respiratory failure Chronic obstructive pulmonary disease Hypomagnesemia Anemia Anticoagulant long-term use UTI (urinary tract infection) Chronic respiratory failure with hypoxia Polymyalgia rheumatica Small cell lung cancer Atrial flutter with rapid ventricular response GERD (gastroesophageal reflux disease) Pancytopenia due to antineoplastic chemotherapy Ex-smoker Lower extremity edema Hemoptysis Chronic dyspnea Small cell lung cancer Malignant neoplasm of lung Bronch with biopsy on 11/15/21 Hearing deficit NO AIDS Vertebral fracture LUMBAR AND THORACIC Osteoporosis Tremor RIGHT HAND Migraine HX Compression fracture of L1 vertebra (08/15/21) Chronic Endometrial thickening on ultrasound Ureteral tumor Port-A-Cath in place Liver abscess History of diverticulitis Hx of bladder cancer HAD BCG INSTILLATION - DX: 2012 History of liver disease 03/2019 [facility]IMBER[facility] FOR LIVER ABSCESS- GIVEN ABXS X MONTHS- FOLLOWING WITH [facility]E FOR MONITORING -RECENT CT SCAN 06/16/19- SHOWS ABSCESS TO BE DECREASED TO 3.5CM (SURGEON IS AWARE) Asthma (04/25/12) Stable and controlled Diabetes mellitus, type 2 NIDDM- WELL CONTROLLED AND STABLE History of breast cancer RIGHT S/P LUMPECTOMY/CHEMO/RADATION (2009)- STABLE AT THIS TIME Left rib fracture (2016) Surgical History S/P ablation of atrial flutter History of bronchoscopy 11/15/21 Nausea and vomiting after administration of anesthetic agent H/O cystoscopy SEVERAL History of colonoscopy History of surgery LEFT CHEST PORT History of lumpectomy of right breast History of elbow surgery RIGHT History of arthroscopy B/L KNEE History of breast biopsy History of surgery TURBT X 2; TURBT, CYSTO, RIGHT RPG, STENT: 07/11/18: LMA#4 AT [facility] History of appendectomy History of cholecystectomy Family History Other Adopted Family history unknown Social History Smoking Status: Former smoker Tobacco Type: Cigarettes Cigarettes Per Day: Less than 1/2 PPD now;Smoked 50+yrs;; Second Hand Exposure: Yes; Do You Dip or Chew Tobacco: No; Hx Alcohol Use: No Hx Substance Use: No Preferred Language: Zambian Communication Ability: Effective Communication Tools: Other Visual Impairment: No Limitations Hearing Ability: Hard of Hearing 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 Required: No Beliefs That Will Affect Care: None marital status: Single Current Living Situation: Other Current Living Situation Comment: roomate current occupational status: retired Other Information That Helps Us Care for You: No Feels Safe at Home: Yes Safety Concerns: Feels Safe At This Time Childhood Exposure to Second-Hand Smoke: Yes Diet: regular caffeine: No during the past year weight has: remained stable Dental Care, Regularly: Yes Physical Activity Frequency: 1-2 Times per Week Seatbelt Use: always Sunscreen Use: Yes Assistive Devices: Denture - Upper, Glasses, Oxygen - Continuous and Walker Review of Systems Review of Systems: All systems reviewed & are unremarkable except as noted in HPI & below Physical Exam Physical Exam: General: patient resting comfortably, NAD, non-toxic in appearance, AA&O x 4 Skin: warm, dry, intact, no rashes or lesions HEENT: NC/AT, PERRL, EOMI, anicteric sclera, conjunctiva without injection, external ear normal to inspection and nontender, nares patent, moist mucus membranes, dentition intact, no oropharyngeal lesions, neck supple, trachea midline, no LAD, no thyromegaly, no JVD Heart: +S1/S2, regular, no m/r/g Lungs: equal air entry bilaterally, +Crackles in bilateral bases, no rhonchi or wheezes Abd: +BS, soft, NT/ND, no masses/organomegaly/ascites Ext: warm, 2+ pulses in UE/LE bilaterally, no clubbing/cyanosis or edema Neuro: nonfocal, patient AA&O x 4, speech intact, no facial droop, moving all extremities on command with equal strength 5/5 Results & Data Results & Data Vital Signs (Past 12 Hours) Vital Signs Temp Pulse Pulse Resp BP BP Pulse Ox 06/11/23 18:56 73 06/11/23 18:42 78 23 114/52 L 99 06/11/23 15:50 36.6 C 81 24 86/49 L 97 O2 Del Method O2 Flow Rate 06/11/23 18:56 06/11/23 18:42 Nasal Cannula 2 06/11/23 15:50 Laboratory Results Laboratory Results WBC 10.61 K/ul (4.8-10.8) 06/11/23 17:40 RBC 3.14 M/uL (4.20-5.40) L 06/11/23 17:40 Hgb 10.4 g/dl (12.0-16.0) L 06/11/23 17:40 Hct 32.7 % (37.0-47.0) L 06/11/23 17:40 MCV 104.1 fL (80.0-100.0) H 06/11/23 17:40 MCH 33.1 pg (25.0-34.0) 06/11/23 17:40 MCHC 31.8 g/dL (32.0-36.0) L 06/11/23 17:40 RDW Std Deviation 61.1 fL (36.4-46.3) H 06/11/23 17:40 RDW Coeff of Atul 15.9 % (11.5-14.5) H 06/11/23 17:40 Plt Count 136 K/uL (130-400) 06/11/23 17:40 MPV 9.6 fL (9.4-12.4) 06/11/23 17:40 Immature Gran % (Auto) 0.8 % 06/11/23 17:40 Neut % (Auto) 92.3 % 06/11/23 17:40 Lymph % (Auto) 2.4 % 06/11/23 17:40 [place] % (Auto) 4.2 % 06/11/23 17:40 Eos % (Auto) 0.1 % 06/11/23 17:40 Baso % (Auto) 0.2 % 06/11/23 17:40 Neut # (Auto) 9.80 K/uL (1.40-6.50) H 06/11/23 17:40 Lymph # (Auto) 0.25 K/uL (1.20-3.40) L 06/11/23 17:40 [place] # (Auto) 0.45 K/uL (0.11-0.59) 06/11/23 17:40 Eos # (Auto) 0.01 K/uL (0.00-0.50) 06/11/23 17:40 Baso # (Auto) 0.02 K/uL (0.00-0.20) 06/11/23 17:40 Immature Gran # (Auto) 0.08 K/uL (0.01-0.20) 06/11/23 17:40 PT 29.8 Seconds (9.0-12.0) H 06/11/23 17:40 INR 2.9 (0.9-1.1) H 06/11/23 17:40 APTT 48 Seconds (21-31) H 06/11/23 17:40 PTT Ratio 1.7 06/11/23 17:40 Sodium 134 mmol/L (136-145) L 06/11/23 17:40 Potassium 4.7 mmol/L (3.5-5.1) 06/11/23 17:40 Chloride 99 mmol/L (98-107) 06/11/23 17:40 Carbon Dioxide 30 mmol/L (21-32) 06/11/23 17:40 Anion Gap 5 (3-11) 06/11/23 17:40 BUN 16 mg/dl (6-23) 06/11/23 17:40 Creatinine 1.00 mg/dl (0.6-1.2) 06/11/23 17:40 Est Cr Clr Drug Dosing Not Reportable 06/11/23 17:40 Est GFR ( Amer) 62.1 ml/min 06/11/23 17:40 Est GFR (Non-Af Amer) 53.5 ml/min 06/11/23 17:40 BUN/Creatinine Ratio 16.0 (10-20) 06/11/23 17:40 Glucose 131 mg/dl (70-99(Fasting)) H 06/11/23 17:40 Calcium 9.1 mg/dl (8.6-10.3) 06/11/23 17:40 Phosphorus 3.0 mg/dl (2.5-4.9) 06/11/23 17:40 Magnesium 2.0 mg/dl (1.7-2.4) 06/11/23 17:40 Total Bilirubin 0.6 mg/dl (0.2-1.0) 06/11/23 17:40 AST 10 U/L (13-39) L 06/11/23 17:40 ALT 9 U/L (7-52) 06/11/23 17:40 Alkaline Phosphatase 70 U/L (34-104) 06/11/23 17:40 Troponin I High Sens 10.3 pg/ml (0-14) 06/11/23 17:40 Total Protein 6.1 gm/dl (6.0-8.3) 06/11/23 17:40 Albumin 3.2 gm/dl (3.4-5.0) L 06/11/23 17:40 Globulin 2.9 gm/dl (2.5-4.0) 06/11/23 17:40 Albumin/Globulin Ratio 1.1 (0.9-2) 06/11/23 17:40 Procalcitonin 0.31 ng/ml (0-0.5) 06/11/23 17:43 Urine Color Yellow 06/11/23 22:30 Urine Appearance Clear (Clear) 06/11/23 22:30 Urine pH 7.0 (4.5-7.5) 06/11/23 22:30 Ur Specific [place] 1.006 (1.000-1.030) 06/11/23 22:30 Urine Protein Negative (Negative) 06/11/23 22:30 Urine Glucose (UA) Negative (Negative) 06/11/23 22:30 Urine Ketones Negative (Negative) 06/11/23 22:30 Urine Blood Negative (Negative) 06/11/23 22:30 Urine Nitrite Positive (Negative) A 06/11/23 22:30 Urine Bilirubin Negative (Negative) 06/11/23 22: Urine Urobilinogen Negative (Negative) 06/11/23 22:30 Ur Leukocyte Esterase 3+ (Negative) H 06/11/23 22:30 Urine WBC (Auto) >30 /hpf (0-5) H 06/11/23 22:30 Urine RBC (Auto) 0-4 /hpf (0-4) 06/11/23 22:30 U Hyaline Cast (Auto) 0 /lpf (0-5) 06/11/23 22:30 U Epithel Cells (Auto) >30 /lpf (0-5) H 06/11/23 22:30 Urine Bacteria (Auto) Negative (Negative) 06/11/23 22:30 Nasal Screen MRSA (PCR) Negative (Negative) 06/11/23 22:48 Adenovirus (PCR) Not Detected (NotDetected) 06/11/23 18:45 B. pertussis DNA (PCR) Not Detected (NotDetected) 06/11/23 18:45 B.parapertussis DNA PCR Not Detected (NotDetected) 06/11/23 18:45 C. pneumoniae DNA (PCR) Not Detected (NotDetected) 06/11/23 18:45 Coronavirus OC43 (PCR) Not Detected (NotDetected) 06/11/23 18:45 Coronavirus HKU1 (PCR) Not Detected (NotDetected) 06/11/23 18:45 Coronavirus 229E (PCR) Not Detected (NotDetected) 06/11/23 18:45 SARS-CoV-2 (PCR) Not Detected (NotDetected) 06/11/23 18:45 Coronavirus NL63 (PCR) Not Detected (NotDetected) 06/11/23 18:45 Human Metapneumovir PCR Not Detected (NotDetected) 06/11/23 18:45 Influenza Type A (PCR) Not Detected (NotDetected) 06/11/23 18:45 Influenza Type B (PCR) Not Detected (NotDetected) 06/11/23 18:45 M. pneumoniae (PCR) Not Detected (NotDetected) 06/11/23 18:45 Parainfluenza 1 (PCR) Not Detected (NotDetected) 06/11/23 18:45 Parainfluenza 2 (PCR) Not Detected (NotDetected) 06/11/23 18:45 Parainfluenza 3 (PCR) Not Detected (NotDetected) 06/11/23 18:45 Parainfluenza 4 (PCR) Not Detected (NotDetected) 06/11/23 18:45 RSV (PCR) Not Detected (NotDetected) 02/12/24 18:45 Entero/Rhino (PCR) Not Detected (NotDetected) 06/11/23 18:45 Impressions Chest X-Ray 06/11/23 16:54 TWO VIEW CHEST CLINICAL HISTORY: Cough. FINDINGS: PA and lateral chest radiographs are compared to study dated 05/19/2023. Correlation is made with chest CT dated 04/25/2023. A left subclavian central venous infusion port is unchanged in position. The heart is enlarged noting atherosclerotic calcification of the thoracic aorta. The pulmonary vasculature is noncongested. There is chronic elevation of the left hemidiaphragm with bibasilar scarring/atelectasis. A calcified granuloma is again seen in the left upper lung. No airspace consolidation or large pleural effusion is identified. No pneumothorax is seen. The skeletal structures are osteopenic. Degenerative change is noted in the thoracic spine. Thoracic sumeet lori deformities are noted. IMPRESSION: Cardiomegaly with no acute cardiopulmonary abnormality identified. ACT 112: Negative or not required by law. Electronically signed by: Zaki Brian M.D. 06/11/2023 6:[address] 06/11/23 20:19 Exam(s): CT CHEST Without Contrast EXAM: CT Chest Without Intravenous Contrast CLINICAL HISTORY: Reason for exam: ?PNA - h/o metastatic lung CA. TECHNIQUE: Axial computed tomography images of the chest without intravenous contrast. Automated exposure control was utilized for the study. A dose lowering technique was utilized adhering to the principles of ALARA. COMPARISON: No relevant prior studies available. FINDINGS: Lungs: Airspace consolidation of the RIGHT lung base, concerning for aspiration pneumonia. Additional, linear consolidations in the lingula, RIGHT middle lobe, and LEFT lung base, correlate for additional areas of pneumonia. No mass. Pleural space: Unremarkable. No pleural effusion or pneumothorax. Heart: Unremarkable. No cardiomegaly. No significant pericardial effusion. No significant coronary artery calcifications. Bones/joints: Degenerative changes of the spine. No acute fracture. No dislocation. Soft tissues: Unremarkable. Vasculature: Atherosclerotic changes of the aorta. No thoracic aortic aneurysm. Lymph nodes: Unremarkable. No enlarged lymph nodes. IMPRESSION: Airspace consolidation of the RIGHT lung base, concerning for aspiration pneumonia. Additional, linear consolidations in the lingula, RIGHT middle lobe, and LEFT lung base, correlate for additional areas of pneumonia. Electronically signed by: Shay Cruz MD 06/11/23 21:31 PM ECG Additional Comments: EKG with NSR at 77bom, incomplete RBBB, OJ=503, ZOZ=879, JAz=884, no acute ischemic changes Code Status & VTE Plan VTE Prophylaxis Plan VTE Prophylaxis will be ordered: Yes PG Care Time/CCT Total # of Minutes Spent Total Time Spent with Patient: Total time spent is greater than 50% in coordination of care (as documented) at patient's floor/unit and/or counseling patient: Coding Level of Care Code 31633 INT INP/OBS CARE 3/75MIN Diagnoses Pneumonia J18.9 Laterality: unspecified laterality Lung location: unspecified part of lung Pneumonia type: due to unspecified organism Paroxysmal atrial fibrillation I48.0 Polymyalgia rheumatica M35.3 GERD (gastroesophageal reflux disease) K21.9 Chronic obstructive pulmonary disease J44.9 (1) Pneumonia Laterality: unspecified laterality Lung location: unspecified part of lung Pneumonia type: due to unspecified organism Qualified Code(s): J18.9 - Pneumonia, unspecified organism
--- NOTE | 2023-06-11 21:32 | CT Scan Report ---
Exam(s): CT CHEST Without Contrast EXAM: CT Chest Without Intravenous Contrast CLINICAL HISTORY: Reason for exam: ?PNA - h/o metastatic lung CA. TECHNIQUE: Axial computed tomography images of the chest without intravenous contrast. Automated exposure control was utilized for the study. A dose lowering technique was utilized adhering to the principles of ALARA. COMPARISON: No relevant prior studies available. FINDINGS: Lungs: Airspace consolidation of the RIGHT lung base, concerning for aspiration pneumonia. Additional, linear consolidations in the lingula, RIGHT middle lobe, and LEFT lung base, correlate for additional areas of pneumonia. No mass. Pleural space: Unremarkable. No pleural effusion or pneumothorax. Heart: Unremarkable. No cardiomegaly. No significant pericardial effusion. No significant coronary artery calcifications. Bones/joints: Degenerative changes of the spine. No acute fracture. No dislocation. Soft tissues: Unremarkable. Vasculature: Atherosclerotic changes of the aorta. No thoracic aortic aneurysm. Lymph nodes: Unremarkable. No enlarged lymph nodes. IMPRESSION: Airspace consolidation of the RIGHT lung base, concerning for aspiration pneumonia. Additional, linear consolidations in the lingula, RIGHT middle lobe, and LEFT lung base, correlate for additional areas of pneumonia. Electronically signed by: Shay Cruz MD 06/11/23 21:31 PM
[2023-06-11] MEDS: OLANZapine 5 MG TABLET PO STA (21:50)
[2023-06-11] MEDS: SERTRALINE HCL 100 MG TABLET PO STA (21:50)
[2023-06-11] MEDS: WARFARIN SOD 1.25 MG TAB PO STA (21:50)
[2023-06-11] MEDS: traZODone HCL 100 MG TAB PO STA (21:50)
[2023-06-11 22:44] LABS: Appearance Urine Clear (Clear); Bilirubin Urine Negative (Negative); Blood Urine Negative (Negative); Color Urine Yellow; Glucose Urine UA Negative (Negative); Ketones Urine Negative (Negative); Leukocyte Esterase Urine 3+ (Negative); Nitrite Urine Positive (Negative); Protein Urine Negative (Negative); Specific Gravity Urine 1.006 (1.000-1.030); Urobilinogen Urine Negative (Negative)
[2023-06-11 23:23] LABS: Cast Urine Automated 0 /lpf (0-5); Epithelial Cell Urine Auto >30 /lpf (0-5); RBC Urine Automated 0-4 /hpf (0-4); WBC Urine Automated >30 /hpf (0-5)
[2023-06-11 23:24] LABS: Bacteria Urine Automated Negative (Negative)
[2023-06-12] MEDS ORDERED: LIDOCAINE 5% 1 PATCH TD PRN (00:48)
[2023-06-12] MEDS ORDERED: POLYETHYLENE (MIRALAX) 17 GM PACK PO PRN (00:48)
[2023-06-12] MEDS ORDERED: ONDANSETRON INJ 2 MG/ML 2 ML VIAL IV PRN (00:48)
[2023-06-12] MEDS ORDERED: oxyCODONE HCL IR 5 MG TAB (IMMEDIATE RELEASE) PO PRN (00:48)
[2023-06-12] MEDS ORDERED: guaiFENesin/DEXTROM SYRUP 200MG/20MG 10ML UDC PO PRN (00:48)
[2023-06-12] MEDS ORDERED: diazePAM 2 MG TABLET PO PRN (00:48)
[2023-06-12] MEDS ORDERED: ALBUT/IPRATROP 3MG/0.5MG NEB 3 ML VIAL INH PRN (00:48)
[2023-06-12] MEDS: ACETAMINOPHEN 500 MG TAB PO SCH (01:40)
[2023-06-12] MEDS: DOCUSATE SODIUM 100 MG CAP PO SCH (01:40)
[2023-06-12] MEDS: MELATONIN 3 MG TAB PO SCH (01:41)
[2023-06-12] MEDS: FOLIC ACID 1 MG TAB PO SCH (02:16)
[2023-06-12] MEDS: PIPERACILLIN/TAZOBACTAM 4.5 GM in DEXTROSE 5% MINI-B 100 ML IV SCH (02:17)
[2023-06-12] MEDS: ALBUT/IPRATROP 3MG/0.5MG NEB 3 ML VIAL INH SCH (03:21)
[2023-06-12] MEDS: SUCRALFATE 1 GM/10 ML UDC PO SCH (08:45)
[2023-06-12] MEDS: AMIODARONE 200 MG TAB PO SCH (08:46)
[2023-06-12] MEDS: PANTOprazole 40 MG TAB PO SCH (08:47)
[2023-06-12] MEDS: predniSONE 10 MG TABLET PO SCH (08:47)
[2023-06-12] MEDS: VIBEGRON 75 MG TAB PO SCH (08:48)
[2023-06-12 08:53] LABS: Hemoglobin 8.9 g/dl (12.0-16.0); Mean Corpuscular Hemoglobin 32.8 pg (25.0-34.0); Mean Corpuscular Hgb Conc 31.8 g/dL (32.0-36.0); Mean Corpuscular Volume 103.3 fL (80.0-100.0); Mean Platelet Volume 9.3 fL (9.4-12.4); Platelet Count 114 K/uL (130-400); RDW Coefficient of Variation 15.8 % (11.5-14.5); RDW Standard Deviation 60.2 fL (36.4-46.3); Red Blood Count 2.71 M/uL (4.20-5.40); White Blood Count 5.63 K/ul (4.8-10.8)
[2023-06-12 09:06] LABS: BUN Creatinine Ratio 16.5 (10-20); Calcium 8.4 mg/dl (8.6-10.3); Creatinine Clr Calc Pharmacy 42.6 ml/min; Est GFR (African American) 69.5 ml/min; Potassium 4.1 mmol/L (3.5-5.1)
[2023-06-12 09:17] LABS: INR 2.6 (0.9-1.1); Prothrombin Time 26.7 Seconds (9.0-12.0)
[2023-06-12] MEDS: DOXYCYCLINE HYCLATE 100 MG in DEXTROSE 5% MINI-B 100 ML IV SCH (13:30)
[2023-06-12] MEDS: WARFARIN SOD 1.25 MG TAB PO SCH (15:48)
--- NOTE | 2023-06-12 19:59 | Hospitalist Progress Note ---
Date of Service June 12, 2023 Assessment & Plan (1) Pneumonia: Plan: 77yo female presenting with productive cough, congestion and weakness. 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 She is afebrile, non-toxic in appearance, no respiratory distress. Initially hypotensive which has since resolved. CT findings concerning for bilateral PNA, possible aspiration. She had Flu A the end of March and feels she never fully recovered despite treatment with a prednisone burst and taper, Levaquin in early Apr, and then po doxycycline the end of april. With increased sputum production, cough, and chest pain. She is immunocompromised on immunotherapy for her lung CA Viral resp panel BioFire negative, MRSA nasa swab neg, Procal negative, Blood cxs NGTD Improving with IV ZOsyn, and added IV doxycycline for atypical coverage -Maintain aspiration precautions -Follow BCxs-NGTD -check sputum cx -Continue supplemental O2 - on 2L continuous at home -continue Zosyn 4.5gm IV q 8, doxy -Tylenol PRN -Guaifenesin syrup PRN -pulm toilet -follow imaging to resolution (2) Paroxysmal atrial fibrillation: Plan: Patient presently in NSR -Continue Coumadin - patient is currently on 1.25mg po daily until this Sunday. INR =2.6 with goal of 2.5 - 3.5 per daughter. -Continue Amiodarone (3) Polymyalgia rheumatica: Plan: Chronic. Stable. Patient on Prednisone 10mg po daily -Continue Prednisone -Low threshold for stress dosed steroids if patient appears septic or becomes hypotensive (4) GERD (gastroesophageal reflux disease): Plan: With worsening epigastric pain which has been ongoing -Protonix 40mg po daily -Carafate 1gm po QID (5) Chronic obstructive pulmonary disease: Plan: No wheezing at present. No respiratory distress -Continue Albuterol/Ipratropium BID and q 6 hours PRN (6) Stress-induced cardiomyopathy: Plan: resolved, follows with Cardiology (7) Primary small cell malignant neoplasm of lung, stage 4: Plan: She is on maintenance atezolizumab. PET scan 04/25/2023 revealed positive treatment response with the previously described metastatic left hepatic lesion not well-visualized. There has been interval development of a subpleural 2.2 cm consolidative hypermetabolic nodular opacity in the apical segment of the right upper lobe possibly infectious. CT chest 04/25/2023 revealed mild focal groundglass opacity in the right lung apex and in the posterior left lower lobe. Follows with Oncology, Pulm Family requesting inpatient Palliative consult as they were to see Palliative as an outpt this week anyway (8) Anemia: Plan: hgb low but stable at 8.9, macrocytic B12 and folate normal in 02/2023 possibly from immune therapy? takes folic acid and B12 supplements as outpt follow CBC (9) Thrombocytopenia: Plan: mildly low, possibly from immune therapy? B12 normal in 02/2023 follows with Heme Follow CBC Plan DVT proph-coumadin Dispo-continued stay Admission and Anticipated Discharge Date Admission Date: June 11, 2023 Subjective Feeling better already since admission. Still coughing up mucus but not as much Has less chest pain with deep inspiration. Got OOB today. Appetite good. Didn't get much sleep last night. I discussed her care with her daughter and JUAN at the bedside Physical Exam Constitutional: WD/WN, vitals as above ENMT: Ears: + EAC abnormality (left cerumen impaction, right clear) Respiratory: normal respiratory effort; no cough Auscultation: + crackles (right lower and middle lung hernandez); no rhonchi and no wheezes Cardiovascular: RRR, no murmur, no edema Gastrointestinal (Abdomen): normal bowel sounds, soft, nontender, no hepatosplenomegaly Psychiatric: A+Ox3, euthymic affect Results & Data Results & Data Vital Signs (Past 12 Hours) Vital Signs Temp Pulse Resp BP Pulse Ox O2 Del Method O2 Flow Rate 06/12/23 15:05 37.0 C 18 106/63 95 Room Air 06/12/23 08:15 Nasal Cannula 2 06/12/23 07:53 36.5 C 80 18 133/68 95 Nasal Cannula 2 Laboratory Results CBC, BMP, INR Blood cxs, Urine cx reviewed PG Care Time/CCT Total # of Minutes Spent Total Time Spent with Patient: Total time spent is greater than 50% in coordination of care (as documented) at patient's floor/unit and/or counseling patient: Coding Level of Care Code 77741 SUB INP/OBS CARE 2/35MIN Diagnoses Pneumonia J18.9 Laterality: unspecified laterality Lung location: unspecified part of lung Pneumonia type: due to unspecified organism Paroxysmal atrial fibrillation I48.0 Polymyalgia rheumatica M35.3 GERD (gastroesophageal reflux disease) K21.9 Chronic obstructive pulmonary disease J44.9 Stress-induced cardiomyopathy I51.81 Primary small cell malignant neoplasm of lung, stage 4 C34.90 Anemia D64.9 Thrombocytopenia D69.6 (1) Pneumonia Laterality: unspecified laterality Lung location: unspecified part of lung Pneumonia type: due to unspecified organism Qualified Code(s): J18.9 - Pneumonia, unspecified organism
[2023-06-12] MEDS: traZODone HCL 100 MG TAB PO SCH (20:22)
[2023-06-12] MEDS: OLANZapine 5 MG TABLET PO SCH (20:22)
[2023-06-12] MEDS: SERTRALINE HCL 100 MG TABLET PO SCH (20:23)
[2023-06-12] MEDS: SENNA 8.6 MG TAB PO PRN (20:24)
[2023-06-12] MEDS: CARBAMIDE PEROXIDE 6.5% 15 ML BTL OTL SCH (20:54)
[2023-06-12] MEDS: BUDESONIDE/GLYCOPYR/FORMOTEROL INHALER INH SCH (23:51)
--- NOTE | 2023-06-13 05:40 | Electrocardiogram Report ---
Test Reason : Blood Pressure : / mmHG Vent. Rate : 077 BPM Atrial Rate : 077 BPM P-R Int : 162 ms QRS Dur : 112 ms QT Int : 424 ms P-R-T Axes : 062 -64 032 degrees QTc Int : 479 ms Normal sinus rhythm Incomplete right bundle branch block Left anterior fascicular block Moderate voltage criteria for LVH, may be normal variant ( R in aVL , [place] product ) Abnormal ECG When compared with ECG of 19-MAY-2023 10:06, Criteria for Septal infarct are no longer Present Confirmed by Kel Moreno ([id number]) on 06/13/2023 5:40:22 AM Referred By: REFERRED SELF Confirmed By:Kel Moreno
[2023-06-13 07:45] LABS: Basophils # (auto) 0.02 K/uL (0.00-0.20); Basophils % (auto) 0.2 %; Eosinophils # (auto) 0.06 K/uL (0.00-0.50); Eosinophils % (auto) 0.6 %; Hematocrit (blood only) 27.8 % (37.0-47.0); Hemoglobin 8.8 g/dl (12.0-16.0); Immature Granulocytes # (auto) 0.12 K/uL (0.01-0.20); Immature Granulocytes % (auto) 1.3 %; Lymphocytes # (auto) 0.19 K/uL (1.20-3.40); Mean Corpuscular Hemoglobin 32.6 pg (25.0-34.0); Mean Corpuscular Hgb Conc 31.7 g/dL (32.0-36.0); Mean Platelet Volume 9.1 fL (9.4-12.4); Monocytes # (auto) 0.81 K/uL (0.11-0.59); Monocytes % (auto) 8.6 %; Neutrophils # (auto) 8.18 K/uL (1.40-6.50); Neutrophils % (auto) 87.3 %; Platelet Count 114 K/uL (130-400); RDW Coefficient of Variation 15.9 % (11.5-14.5); RDW Standard Deviation 60.4 fL (36.4-46.3); White Blood Count 9.38 K/ul (4.8-10.8)
[2023-06-13 08:39] LABS: Albumin Globulin Ratio 1.2 (0.9-2); Albumin Level 2.6 gm/dl (3.4-5.0); BUN Creatinine Ratio 14.9 (10-20); Bilirubin,Total 0.4 mg/dl (0.2-1.0); C Reactive Protein 7.05 mg/dl (0-0.5); Calcium 7.9 mg/dl (8.6-10.3); Creatinine Clr Calc Pharmacy 41.2 ml/min; Est GFR (African American) 66.9 ml/min; Est GFR (Non-African American) 57.7 ml/min; Globulin 2.2 gm/dl (2.5-4.0); Magnesium 1.6 mg/dl (1.7-2.4); Potassium 3.7 mmol/L (3.5-5.1); Total Protein 4.8 gm/dl (6.0-8.3)
[2023-06-13] MEDS: KETOROLAC TROMETHAMINE 15 MG/ML VIAL IV ONE (11:58)
[2023-06-13] MEDS: HYDROCORTISONE SOD 50 MG in SYRINGE 0 ML IV SCH (12:48)
[2023-06-13] MEDS: MAGNESIUM SULFATE / D5W 1 GM/100 ML BAG IV SCH (12:49)
[2023-06-13] MEDS: HEPARIN 100 UNIT/ML 5ML FLUSH FLUSH PRN (14:57)
--- NOTE | 2023-06-13 19:27 | Hospitalist Progress Note ---
Date of Service June 13, 2023 Assessment & Plan (1) Pneumonia: Plan: 77yo female presenting with productive cough, congestion and weakness. 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 She is afebrile, non-toxic in appearance, no respiratory distress. Initially hypotensive which has since resolved. CT findings concerning for bilateral PNA, possible aspiration. She had Flu A the end of March and feels she never fully recovered despite treatment with a prednisone burst and taper, Levaquin in early Apr, and then po doxycycline the end of april. With increased sputum production, cough, and chest pain, and leukocytosis. She is immunocompromised on immunotherapy for her lung CA Viral resp panel BioFire negative, MRSA nasal swab neg, Procal negative, Blood cxs NGTD Improving with IV ZOsyn, and added IV doxycycline for atypical coverage Mild hypotension again on AM of 06/13--> added IV hydrocortisone for stress dose steroids -Maintain aspiration precautions -Follow BCxs-NGTD -check sputum cx-not yet collected -Continue supplemental O2 - on 2L continuous at home -continue Zosyn 4.5gm IV q 8, doxy -Tylenol PRN -Guaifenesin syrup PRN -pulm toilet -follow imaging to resolution -toradol x 1 given for pleuritic type chest pain (2) Paroxysmal atrial fibrillation: Plan: Patient presently in NSR -Continue Coumadin - patient is currently on 1.25mg po daily until this Sunday. INR =2.6 with goal of 2.5 - 3.5 per daughter. -Continue Amiodarone -follow INR in AM (3) Polymyalgia rheumatica: Plan: Chronic. Stable. Patient on Prednisone 10mg po daily -with BP systolics in 80s on AM of 06/13--> hold Prednisone and start stress dosed steroids with IV hydrocortisone 50mg IV q12 (4) GERD (gastroesophageal reflux disease): Plan: With worsening epigastric pain which has been ongoing -Protonix 40mg po daily -Carafate 1gm po QID (5) Chronic obstructive pulmonary disease: Plan: No wheezing at present. No respiratory distress -Continue Albuterol/Ipratropium BID and q 6 hours PRN (6) Stress-induced cardiomyopathy: Plan: resolved, follows with Cardiology (7) Primary small cell malignant neoplasm of lung, stage 4: Plan: She is on maintenance atezolizumab. PET scan 04/25/2023 revealed positive treatment response with the previously described metastatic left hepatic lesion not well-visualized. There has been interval development of a subpleural 2.2 cm consolidative hypermetabolic nodular opacity in the apical segment of the right upper lobe possibly infectious. CT chest 04/25/2023 revealed mild focal groundglass opacity in the right lung apex and in the posterior left lower lobe. Follows with Oncology, Pulm Family requesting inpatient Palliative consult as they were to see Palliative as an outpt this week anyway-appreciate goals of care discussion (8) Anemia: Plan: hgb low but stable at 8.8, macrocytic B12 and folate normal in 02/2023 possibly from immune therapy? takes folic acid and B12 supplements as outpt follow CBC periodically (9) Thrombocytopenia: Plan: mildly low but stable from previous, possibly from immune therapy? B12 normal in 02/2023 follows with Heme Follow CBC (10) Chronic hypoxemic respiratory failure: Plan: Chronic respiratory failure with hypoxia Plan DVT proph-coumadin Dispo-continued stay, PT/OT ordered-PT recommends home with 20/11 care Admission and Anticipated Discharge Date Admission Date: June 11, 2023 Subjective Pt had some hypoxia and chest pains ongoing this AM that improved with increasing O2 supplemental and IV toradol. When I saw the patient in the evening she was sleeping and only woke up briefly, no complaints, comfortable Physical Exam Constitutional: WD/WN, vitals as above ENMT: Ears: + hearing impairment Respiratory: normal respiratory effort; no cough Auscultation: + crackles (right lower and middle lung hernandez); no rhonchi and no wheezes Cardiovascular: RRR, no murmur, no edema Gastrointestinal (Abdomen): normal bowel sounds, soft, nontender, no hepatosplenomegaly Results & Data Results & Data Vital Signs (Past 12 Hours) Vital Signs Temp Pulse Resp BP Pulse Ox O2 Del Method O2 Flow Rate 06/13/23 18:05 77 16 98 Nasal Cannula 2 06/13/23 16:08 36.6 C 84 16 137/68 97 Nasal Cannula 2 06/13/23 08:10 Nasal Cannula 2 Laboratory Results CBC, BMP, and magnesium reviewed PG Care Time/CCT Total # of Minutes Spent Total Time Spent with Patient: Total time spent is greater than 50% in coordination of care (as documented) at patient's floor/unit and/or counseling patient: Coding Level of Care Code 71430 SUB INP/OBS CARE MIN Diagnoses Pneumonia J18.9 Laterality: unspecified laterality Lung location: unspecified part of lung Pneumonia type: due to unspecified organism Paroxysmal atrial fibrillation I48.0 Polymyalgia rheumatica M35.3 GERD (gastroesophageal reflux disease) K21.9 Chronic obstructive pulmonary disease J44.9 Stress-induced cardiomyopathy I51.81 Primary small cell malignant neoplasm of lung, stage 4 C34.90 Anemia D64.9 Thrombocytopenia D69.6 Chronic hypoxemic respiratory failure J96.11 (1) Pneumonia Laterality: unspecified laterality Lung location: unspecified part of lung Pneumonia type: due to unspecified organism Qualified Code(s): J18.9 - Pneumonia, unspecified organism
--- NOTE | 2023-06-14 | Palliative Care Consultation ---
Date of Consultation June 13, 2023 Assessment & Plan (1) Dyspnea and respiratory abnormalities: pt complains of SOB, HOLT, chest pressure she has not been using resp meds as ordered, has a lot of confusion from home regimen to dc from recent admission (2) Declining performance status: progressive weakness, declining PS, pt refusing to perform PT assignments from home therapist. Now sessions are offer and she does not make effort to maintain per family (3) Depression: will order a psychiatry consult to assist with possibly changing or transitioning this patient depression medication? Her family feels she has been on Zoloft for many many years without any significant relief and the dose has been escalated several times. They want to try something different, but understand that there are complication potentials with her heart failure medication. Depression Type: persistent depressive disorder Qualified Code(s): F34.1 - Dysthymic disorder (4) Hearing deficit: last hearing test >5 yr, no recent. cannot afford hearing aides and therefore did not return Hearing loss type: unspecified Laterality: bilateral Qualified Code(s): H91.93 - Unspecified hearing loss, bilateral (5) Anxiety associated with cancer diagnosis: (6) Anxiety about health: (7) Advanced care planning/counseling discussion: A 75min lengthy and detailed face to face ACP was held with then with pt, dtr and son in law. With their consent and voluntary participation we discussed all of the above outlined concerns We reviewed concerns about her declining PS though her cancer is stable. She had a flu admission in Apr 2023 and has not 'bounced back' the way family expected. Pt feels she is too weak and tired. Family states she makes little to no effort and now requires max assist for ADLs. Frustration noted on both sides. Family clearly devoted. She resides with dtr and son in law and they provide for all her needs. She is adamant in refusal to try SNF rehab. She recently completed [facility] and home PT but has maxxed her benefit. We discussed OP rehab option for pulm rehab in detail:Pulmonary rehab, as an outpatient, would offer you a lot of benefit. Pulmonary rehabilitation is a program of education and exercise that helps you manage your breathing problem, increase your stamina (energy) and decrease your breathlessness. The education part of the program teaches you to be in charge of your breathing instead of your breathing being in charge of you. Pulmonary Rehabilitation Program helps people who have chronic pulmonary disease. The specialists in this program work with you to improve your health and reduce your risk of future pulmonary disease and medical complications. You will work with a multidisciplinary team including respiratory therapists, physical therapists, occupational therapists, social workers and dietitians to ensure you get exactly the care you need. Most people go through the comprehensive evaluation, educational and exercise components on an outpatient basis. The staff in the Pulmonary Rehabilitation Program helps you focus on several ways to improve your quality of life and health and reduce your risk of future pulmonary events, such as: Breathing and relaxation techniques, which can help you better cope with stressful situations Improving your physical activity habits Maximizing your energy level Improving your overall health and well-being Participation in the program may help you: Better understand your disease Develop methods to cope with your disease Develop your perception of well-being Decrease the number of times you go to the hospital The Pulmonary Rehabilitation Program may include: Education sessions discussing breathing techniques, disease processes, respiratory medications, oxygen therapy, exercise techniques Exercise reconditioning sessions Oxygen dosing A nutrition education session Energy conservation techniques An individualized session to go over results of tests, program recommendations, exercise prescription and any questions you may have Recommendations to physicians of any changes or additional tests deemed necessary, such as oxygen therapy, overnight oximetry and medication changes. We reviewed the definition and acute of COPD: the ATS and ERS define COPD as a preventable and treatable disease state characterized by airflow limitation that is not fully reversible. The airflow limitation is usually progressive and associated with a chronic inflammatory response of the lungs to noxious particles or gases. COPD is incurable and will worsen over time. Sometimes when patients stop smoking, the progression will slow down, but all COPD over time will get worse. Medications become less effective and do not work as well; in general these patients experience a significant decline in QOL. Patients with COPD constitute a large group of symptomatic patients with a common, chronic, and generally progressive respiratory disorder. Recent studies indicate that patients in this group, on the whole, receive less palliative care in their terminal phase than patients with lung cancer. We discussed that Palliative care can begin when a patient becomes symptomatic and is usually concurrent with restorative and life-prolonging care. Palliative care is titrated, analogous to curative/restorative care, to meet the needs of the patient and family in accord with their preferences. We will help manage their symptoms and assist with goals of care discussions. We spoke about her lack of effort; we discussed her medical team can make the reccs and order the referrals but in the end the only person who can help her get stronger is her. The effort she puts in will determine the benefit she gets. If she won't make effort then she will continue to decline as the repercussion of her choices. She is not struggling with progressive or terminal cancer, that has been deemed stable and she is tolerating her cancer tx. She has uncontrolled COPD and non adherence with inhaler regimen. She needs pulm rehab and updated PFT, walk test and maybe sleep study. Her depression is long standing. She has been on escalating Zoloft and feels it has not been helping for years. Depression is chronic and ongoing, contributes to fatigue and anxiety. Is receptive to meeting with psych colleagues to determine better med options given her HF issues. (8) Palliative care by specialist: Met with pt/family. Provided overview of Palliative Medicine, a subspecialty that provides specialized medical care for people living with a serious illness by offering a focus on quality of life. Palliative Medicine is often conflated with hospice: I advised patient/family that Palliative and hospice can be partners but we are not the same. It is important to understand the difference so that we may be informed, and not afraid. Palliative Medicine works to improve QOL through reduction of symptom burden/more control over their illness, for both the patient and family. Palliative medicine clinicians are board certified, specially-trained and another member of the patient's medical care team. We often provide an extra layer of support because our care is based on the needs of the patient, not the prognosis; as such, it's appropriate at any age/advancing stage of a serious illness and can be provided along with curative treatment. Palliative Medicine clinicians are also trained in advanced communication methodologies, to facilitate complex discussions about advanced illness planning, which are needed to help assure that the treatment choices match the patient's goals, aka delivering Goal Concordant care. Finally, we discussed that hospice is a visiting nurse service that focuses on care delivered at the very end of life for patients with terminal illness, with life expectancy less than 6 month. (9) Primary small cell malignant neoplasm of lung, stage 4: (10) Cardiomyopathy: (11) Paroxysmal atrial fibrillation: (12) Small cell lung cancer: Plan * Pulm Rehab OP referral ordered * Reaffirms no code * Psych consul for depression mgt as noted above, no improvement for years on escalated Zoloft and would like to consider new options * Begin improved adherence to inhaler regimen * Consider referral to [facility] for ongoing med mgt and oversight. * Update audiology testing and hearing aid rx: I will try to get this for her through [facility] [employer] [facility] emergency [facility] funds - advised it may take several weeks to months for all approvals to come though once submitted. * Extensive psychosocial support provided. Tensions between caregiver and pt noted but it is not antagonistic as much as it seems to be frustration. For her part pt is limited and feeling stuck with her hearing deficit "I miss half of what anyone says to me so what's the point?" and she has not been making an effort to help herself. * Close follow up in OP [facility] for ongoing mgt Thank you for allowing us to participate in the ongoing care of this patient. Please don't hesitate to call or page with any additional concerns. Dr. Ana Armstrong DNP Director, Palliative Care History of Present Illness Reason for Consultation: cancer sx mgt, ACP Attending Physician: Shauna Bailon MD History of Present Illness Carla is a 77yo female admitted last night with weakness and fatigue She was referred to see me in clinic this week but has been admitted and dtr requested inpatient eval extensive list of concerns from dtr and son in law, outlined below in ACP di scussion overall, pt has been given a report of cancer is stable but has been declining in PS over past few months. IN past 6 mos, PS has gone from 1-2 to now 3-4 with close to 95% of the day spent in sedentary/resting position and increasing weakness requiring full assist for all ADLs. She has a breast ca hx distantly and more recent SCLC Stage IV. She is followed by [facility]; She is on maintenance atezolizumab. During recent pulm med visit reported a signif burden of uncontrolled symptoms including dyspnea, weakness, anxiety, depression, chest pressure, declining PS SHe has not been able to adhere to all med regimens:She is on combination budesonide/glycopyrrolate/formoterol inhaler 2 puffs twice daily - does not always take + prn nebs. Tells me she forgets to take her inhalers/gets overwh elmed by regimen - using nebs most reliably but not other meds; progressively worsening dyspnea - probably multifactorial in etiology. Pulm advised her to continue combination ICS/LABA/LAMA inhaler and restart albuterol/ipratropium nebs as needed every 6 hours. ongoing dysphagia compliant for 1-2 years, pulm has ordered GI referral PMH: hearing loss/unable to afford hearing aids, COPD/smoking related/former smoker, SCLC, BrCa, PAF/on amiodarone, chronic hypox resp failure, longstanding depression on high dose zoloft for decades, anxiety/?exac by depression Apr 2023 admission for flu PET scan 04/25/2023: positive treatment response with the previously described metastatic left hepatic lesion not well-visualized. There has been interval development of a subpleural 2.2 cm consolidative hypermetabolic nodular opacity in the apical segment of the right upper lobe possibly infectious. CT chest 04/25/2023 revealed mild focal groundglass opacity in the right lung apex and in the posterior left lower lobe. She c/o chest heaviness/pressure like sensation across anterior chest wall, typically with dyspnea and exertion. Increases with anxiety. Denies chest pain, no stabbing/pulsing/throbbing pain, no radiation of pain to neck or jaw or upper back/shoulder blades or arms. c/o generalized weakness says this is bc she is too tired to move around weakness has increased over 6 mos, using bedside commode which is 5 steps from her bed/chair but it makes her SOB and she needs recovery time Allergies Allergy/AdvReac Type Severity Reaction Status Date / Time castor oil Allergy Severe "TAXANES" Verified 06/11/23 18:59 CAUSE DYSPNEA, RASH, ELEVATED BP docetaxel [From Taxotere] Allergy Severe "TAXANES" Verified 06/11/23 18:59 CAUSE DYSPNEA, RASH, ELEVATED BP paclitaxel Allergy Severe "TAXANES" Verified 06/11/23 18:59 CAUSE DYSPNEA, RASH, ELEVATED BP trimethoprim [From Bactrim] Allergy Severe Anaphylaxis Verified 06/11/23 18:59 Iodinated Contrast Media Allergy Intermediate HIVES/ITCHI Verified 06/11/23 18:59 NG nitrofurantoin Allergy Intermediate CHEST Verified 06/11/23 18:59 PAIN, DYSPNEA Sulfa (Sulfonamide Allergy Intermediate HIVES, Verified 06/11/23 18:59 Antibiotics) ITCHINESS, SHORTNESS OF BREATH codeine AdvReac Intermediate COLD Verified 06/11/23 18:59 SWEAT, THINGS START SPINNING, NAUSEA phenazopyridine AdvReac Intermediate N/V Verified 06/11/23 18:59 Home Medications Medication Instructions Recorded Confirmed Type cholecalciferol (vitamin D3) 25 25 mcg PO DAILY 12/01/21 06/11/23 History mcg (1,000 unit) capsule nebulizers #1 ea 12/05/21 06/11/23 Rx calcium 600 mg-D3 800 unit-mag11 1 tab PO BID #60 tabs 04/27/22 06/11/23 Rx 50 xw-cnht-aorqyk-beulah-s.borat tablet (Caltrate 600-D Plus Minerals) sennosides 8.6 mg tablet (Senokot) 8.6 mg PO DAILY PRN Constipation 06/01/22 06/11/23 History vibegron 75 mg tablet (Gemtesa) 75 mg PO DAILY #90 tabs 07/20/22 06/11/23 Rx mecobalamin (vitamin B12) 1,000 1,000 mcg sublingual DAILY 10/26/22 06/11/23 History mcg disintegrating tablet,sublingual budesonide 160 mcg-glycopyr 9 2 inh inhalation BID #10.7 grams 12/11/22 06/11/23 Rx mcg-formot 4.8 mcg/actuation HFA inhaler (Breztri Aerosphere) folic acid 1 mg tablet 1 mg PO QPM #30 tabs 12/11/22 06/11/23 Rx docusate sodium 100 mg capsule 100 mg PO BID Constipation 01/03/23 06/11/23 History (Colace) polyethylene glycol 3350 17 17 g PO DAILY PRN Constipation 01/03/23 06/11/23 History gram/dose oral powder (Miralax) olanzapine 5 mg tablet 5 mg PO QPM 01/10/23 06/11/23 History trazodone 50 mg tablet 100 mg PO HS 01/10/23 06/11/23 History ondansetron HCl 8 mg tablet 8 mg PO Q8H PRN Nausea 01/22/23 06/11/23 History oxycodone 5 mg tablet 0 mg PO Q8H PRN Pain 01/22/23 06/11/23 History sertraline 50 mg tablet 100 mg PO HS 02/27/23 06/11/23 History lidocaine 5 % topical patch 0 patch transdermal Q24H PRN Other 02/28/23 06/11/23 History diazepam 2 mg tablet 2 mg PO BID PRN sedation #60 tabs 03/09/23 06/11/23 Rx amiodarone 200 mg tablet 200 mg PO DAILY #90 tabs 05/17/23 06/11/23 Rx furosemide 20 mg tablet 20 mg PO QAM PRN Other 05/19/23 06/11/23 History magnesium oxide 400 mg (241.3 mg 400 mg PO QAM 30 days #30 tabs 05/19/23 06/11/23 Rx magnesium) tablet prednisone 10 mg tablet 10 mg PO DAILY #30 tabs 06/06/23 06/11/23 Rx acetaminophen 500 mg tablet 1,000 mg PO .BID-TID 06/11/23 06/11/23 History (Tylenol Extra Strength) ipratropium 0.5 mg-albuterol 3 mg 3 ml inhalation BID wheezing 06/11/23 06/11/23 History (2.5 mg base)/3 mL nebulization soln ipratropium 0.5 mg-albuterol 3 mg 3 ml inhalation Q6 PRN Shortness 06/11/23 06/11/23 History (2.5 mg base)/3 mL nebulization Of Breath Or Wheezing soln melatonin 10 mg tablet 10 mg PO HS 06/11/23 06/11/23 History warfarin 2.5 mg tablet (Jantoven) 1.25 mg PO .DAILY THRU Sun06/11/23 06/11/23 History Patient History Medical History (Updated 06/13/23 @ 23:57 by Ana Armstrong, RAJ) Palliative care by specialist Advanced care planning/counseling discussion Anxiety about health Anxiety associated with cancer diagnosis Depression Declining performance status Dyspnea and respiratory abnormalities Anemia Dysphagia Primary small cell malignant neoplasm of lung, stage 4 Acute kidney injury Hypomagnesemia Sepsis Non-ST elevation [place] (NSTEMI) Acute UTI (urinary tract infection) Cardiomyopathy Paroxysmal atrial fibrillation Hyponatremia Breast cancer DVT (deep venous thrombosis) (10/2022) LFTs abnormal Pneumonia Liver lesion Excessive cerumen in both ear canals Anxiety Insomnia Urinary incontinence Chronic hypoxemic respiratory failure Chronic obstructive pulmonary disease Hypomagnesemia Anticoagulant long-term use UTI (urinary tract infection) Chronic respiratory failure with hypoxia Polymyalgia rheumatica Small cell lung cancer Atrial flutter with rapid ventricular response GERD (gastroesophageal reflux disease) Pancytopenia due to antineoplastic chemotherapy Ex-smoker Lower extremity edema Hemoptysis Chronic dyspnea Small cell lung cancer Malignant neoplasm of lung Bronch with biopsy on 11/15/21 Hearing deficit cannot afford hearing aids Vertebral fracture LUMBAR AND THORACIC Osteoporosis Tremor RIGHT HAND Migraine HX Compression fracture of L1 vertebra (08/15/21) Chronic Endometrial thickening on ultrasound Ureteral tumor Port-A-Cath in place Liver abscess History of diverticulitis Hx of bladder cancer HAD BCG INSTILLATION - DX: 2012 History of liver disease 03/2019 [facility] FOR LIVER ABSCESS- GIVEN ABXS X MONTHS- FOLLOWING WITH [facility]E FOR MONITORING -RECENT CT SCAN 06/16/19- SHOWS ABSCESS TO BE DECREASED TO 3.5CM (SURGEON IS AWARE) Asthma (04/25/12) Stable and controlled Diabetes mellitus, type 2 NIDDM- WELL CONTROLLED AND STABLE History of breast cancer RIGHT S/P LUMPECTOMY/CHEMO/RADATION (2009)- STABLE AT THIS TIME Left rib fracture (2016) Surgical History S/P ablation of atrial flutter History of bronchoscopy 11/15/21 Nausea and vomiting after administration of anesthetic agent H/O cystoscopy SEVERAL History of colonoscopy History of surgery LEFT CHEST PORT History of lumpectomy of right breast History of elbow surgery RIGHT History of arthroscopy B/L KNEE History of breast biopsy History of surgery TURBT X 2; TURBT, CYSTO, RIGHT RPG, STENT: 07/11/18: LMA#4 AT [facility] History of appendectomy History of cholecystectomy Family History Other Adopted Family history unknown Social History Smoking Status: Former smoker Tobacco Type: Cigarettes Cigarettes Per Day: Less than 1/2 PPD now;Smoked 50+yrs;; Second Hand Exposure: Yes; Do You Dip or Chew Tobacco: No; Hx Alcohol Use: No Hx Substance Use: No Preferred Language: Macedonian Communication Ability: Effective Communication Tools: Other Visual Impairment: No Limitations Hearing Ability: Hard of Hearing [employer] Staff Officer Required: No Beliefs That Will Affect Care: None marital status: Single Current Living Situation: Other Current Living Situation Comment: roomate current occupational status: retired Other Information That Helps Us Care for You: No Feels Safe at Home: Yes Safety Concerns: Feels Safe At This Time Childhood Exposure to Second-Hand Smoke: Yes Diet: regular caffeine: No during the past year weight has: remained stable Dental Care, Regularly: Yes Physical Activity Frequency: 1-2 Times per Week Seatbelt Use: always Sunscreen Use: Yes Assistive Devices: Bedside Commode, Hospital Bed, Walker and Wheelchair Review of Systems Review of Systems: All systems reviewed & are unremarkable except as noted in Subjective Physical Exam Constitutional: + ill appearing, + well hydrated, averag e body habitus and + frail appearing Eyes: PERRL, conjunctivae normal, anicteric sclerae ENMT: Ears: + hearing impairment Nose: + dry nasal mucous membranes Mouth: + dry oral mucous membranes and + poor dentition Throat: uvula midline and + postnasal drainage Neck: trachea midline, no thyromegaly Respiratory: + uses accessory muscles, able to speak in complete sentences, + prolonged expiratory phase and symmetric chest movement Auscultation: + diminished lung sounds Cardiovascular: Rate/Rhythm: + irregularly irregular Gastrointestinal (Abdomen): normal bowel sounds, soft, nontender, no hepatosplenomegaly Musculoskeletal: Head/Neck/Chest: normocephalic, head atraumatic and neck supple Gait: + antalgic gait Skin: normal turgor and + dry skin Neurologic: PERRL, EOMI, accommodation nl, no face palsy, no dysarthria Psychiatric: Orientation: alert and oriented x 3 Apperance: appropriately dressed and appropriately groomed Eye Contact: + fair eye contact Motor Behavior: no abnormal motor movements Speech: + pressured speech (at times, often in response to hearing deficit) Affect: + depressed affect, + anxious affect and + flat affect Mood: + depressed mood, + anxious mood and + irritable mood Thought Process: clear/coherent thought process, + tangential thought process and + perseveration Thought Content: + preoccupation, + persecution and + loneliness Suicidal Thoughts: denies suicidal thoughts, denies suicidal plan and denies suicidal intent Homicidal Thoughts: denies homicidal thoughts, denies homicidal plan and denies homicidal intent Cognition: recent memory grossly intact, remote memory grossly intact, attention grossly intact and language grossly intact Estimated Intelligence: consistent with education level Insight: + fair insight Judgment: + fair judgement Results & Data Vital Signs (Past 12 Hours) Vital Signs Temp Pulse Resp BP Pulse Ox O2 Del Method O2 Flow Rate 06/13/23 20:32 36.6 C 71 18 105/63 98 Nasal Cannula 2 06/13/23 18:05 77 16 98 Nasal Cannula 2 06/13/23 16:08 36.6 C 84 16 137/68 97 Nasal Cannula 2 Laboratory Results data reviewed Diagnostic Findings data reviewed PG Care Time/CCT Total # of Minutes Spent Total Time Spent: 150 Total Time Spent with Patient: Total time spent is greater than 50% in coordination of care (as documented) at patient's floor/unit and/or counseling patient: I spent 150 minutes overall addressing this case: 15 min in medical data review/discussion with referring provider(s) and/or preparation for the visit 30 min in direct interaction with the patient/exam 75 min in Advance Care Planning/Goals of Care discussions as detailed above in note (must be >16min) 15 min in subsequent review and synthesis of assessment and plan 15 min communicating with other providers regarding the patient's case: Prolonged Care Time Prolonged Care Time: Yes Advanced Care Planning 72532 Advanced Care Planning 30 Min [id number] Advanced Care Planning Additional 30 [place] [address] IN/OBS CONSULT LVL 5,80M Patient Type New History Comprehensive Exam Comprehensive Medical Decision Making High Complexity Diagnoses Dyspnea and respiratory abnormalities R06.00; R06.89 Declining performance status R53.81 Persistent depressive disorder F34.1 Depression Type: persistent depressive disorder Bilateral hearing loss, unspecified hearing loss type H91.93 Hearing loss type: unspecified Laterality: bilateral Anxiety associated with cancer diagnosis F41.1; C80.1 Anxiety about health R45.89 Advanced care planning/counseling discussion Z71.89 Palliative care by specialist Z51.5 Primary small cell malignant neoplasm of lung, stage 4 C34.90 Cardiomyopathy I42.9 Paroxysmal atrial fibrillation I48.0 Small cell lung cancer C34.90 Additional Codes Advanced Care Planning - 71324 Advanced Care Planning 30 Min: 31547 Advanced Care Planning 30 Min ([id number]) Advanced Care Planning - 32710 Advanced Care Planning Additional 30 Min: 73707 Advanced Care Planning Additional 30 Min ([id number]) Prolonged Care Time - Prolonged Care Time: Yes ([id number])
[2023-06-14 06:04] LABS: BUN Creatinine Ratio 15.5 (10-20); Calcium 7.9 mg/dl (8.6-10.3); Est GFR (African American) 45.6 ml/min; Est GFR (Non-African American) 39.4 ml/min; Magnesium 2.1 mg/dl (1.7-2.4); Potassium 3.7 mmol/L (3.5-5.1)
[2023-06-14] MEDS: DOXYCYCLINE HYCLATE 100 MG CAP PO SCH (13:28)
--- NOTE | 2023-06-14 18:41 | Hospitalist Progress Note ---
Date of Service June 14, 2023 Assessment & Plan (1) Pneumonia: Plan: 77yo female presenting with productive cough, congestion and weakness. 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 She is afebrile, non-toxic in appearance, no respiratory distress. Initially hypotensive which has since resolved. CT findings concerning for bilateral PNA, possible aspiration. She had Flu A the end of March and feels she never fully recovered despite treatment with a prednisone burst and taper, Levaquin in early Apr, and then po doxycycline the end of april. With increased sputum production, cough, and chest pain, and leukocytosis. She is immunocompromised on immunotherapy for her lung CA Viral resp panel BioFire negative, MRSA nasal swab neg, Procal negative, Blood cxs NGTD Much improved with IV ZOsyn, and IV doxycycline for atypical coverage-changed to p.o. doxycycline Mild hypotension again on AM of 06/13--> added IV hydrocortisone for stress dose steroids-will now weaned down to prednisone 20 mg daily and stop IV hydrocortisone after tonight -Maintain aspiration precautions -Follow BCxs-NGTD -check sputum cx-pending -Continue supplemental O2 - on 2L continuous at home -continue Zosyn 4.5gm IV q 8, doxy -Tylenol PRN -Guaifenesin syrup PRN -pulm toilet -follow imaging to resolution -toradol x 1 given for pleuritic type chest pain which is now improving (2) Paroxysmal atrial fibrillation: Plan: Patient presently in NSR -Continue Coumadin - patient is currently on 1.25mg po daily until this Sunday. INR =2.6 with goal of 2.5 - 3.5 per daughter. -Continue Amiodarone -follow INR in AM (3) Polymyalgia rheumatica: Plan: Chronic. Stable. Patient on Prednisone 10mg po daily -with BP systolics in 80s on AM of 06/13--> stress dose steroids as above and now improved (4) GERD (gastroesophageal reflux disease): Plan: With worsening epigastric pain which has been ongoing and now improving-likely due to pneumonia -Protonix 40mg po daily -Unsure why she is still on Carafate 1gm po QID and she does not like taking it- consider stopping (5) Chronic obstructive pulmonary disease: Plan: No wheezing at present. No respiratory distress -Continue Albuterol/Ipratropium BID and q 6 hours PRN Continue maintenance inhaler (6) Stress-induced cardiomyopathy: Plan: resolved, follows with Cardiology (7) Primary small cell malignant neoplasm of lung, stage 4: Plan: She is on maintenance atezolizumab. PET scan 04/25/2023 revealed positive treatment response with the previously described metastatic left hepatic lesion not well-visualized. There has been interval development of a subpleural 2.2 cm consolidative hypermetabolic nodular opacity in the apical segment of the right upper lobe possibly infectious. CT chest 04/25/2023 revealed mild focal groundglass opacity in the right lung apex and in the posterior left lower lobe. Follows with Oncology, Pulm Family requesting inpatient Palliative consult as they were to see Palliative as an outpt this week anyway-appreciate goals of care discussion (8) Anemia: Plan: hgb low but stable at 8.8, macrocytic B12 and folate normal in 02/2023 possibly from immune therapy? takes folic acid and B12 supplements as outpt follow CBC periodically (9) Thrombocytopenia: Plan: mildly low but stable from previous, possibly from immune therapy? B12 normal in 02/2023 follows with Heme Follow CBC (10) Chronic hypoxemic respiratory failure: Plan: Chronic respiratory failure with hypoxia (11) Depression: Plan: Continue sertraline but increase dose to 125 mg at bedtime for worsening anxiety Continue trazodone at bedtime Continue olanzapine at bedtime Diazepam as needed Plan DVT proph-coumadin Dispo-continued stay, PT/OT ordered-PT recommends home with / care-possibly home in 1 to 2 days Admission and Anticipated Discharge Date Admission Date: June 11, 2023 Subjective Patient feeling better today, less chest pains, less short of breath Is having constipation and requests extra Senokot like she takes at home. She is not interested in switching antidepressants but is willing to go up on her Zoloft as she is having increased anxiety as per patient and family. I discussed her care with psychiatry and consultation not necessary-they did suggest perhaps using Cymbalta given that she also has chronic pain but patient declines this. Physical Exam Constitutional: WD/WN, vitals as above ENMT: Ears: + hearing impairment Respiratory: normal respiratory effort; no cough Auscultation: + crackles (right lower and middle lung hernandez); no rhonchi and no wheezes Cardiovascular: RRR, no murmur, no edema Gastrointestinal (Abdomen): normal bowel sounds, soft, nontender, no hepatosplenomegaly Psychiatric: A+Ox3, euthymic affect Results & Data Results & Data Vital Signs (Past 12 Hours) Vital Signs Temp Pulse Resp BP Pulse Ox O2 Del Method O2 Flow Rate 06/14/23 15:56 36.5 C 82 16 114/54 L 98 Room Air 06/14/23 07:52 36.4 C L 79 16 146/67 H 98 Room Air 06/14/23 07:44 Nasal Cannula 2 06/14/23 07:34 68 18 97 Nasal Cannula 2 Laboratory Results BMP, magnesium, sputum culture and urine culture and blood cultures reviewed PG Care Time/CCT Total # of Minutes Spent Total Time Spent with Patient: Total time spent is greater than 50% in coordination of care (as documented) at patient's floor/unit and/or counseling patient: Coding Level of Care Code 45255 SUB INP/OBS CARE 2/35MIN Diagnoses Pneumonia J18.9 Laterality: unspecified laterality Lung location: unspecified part of lung Pneumonia type: due to unspecified organism Paroxysmal atrial fibrillation I48.0 Polymyalgia rheumatica M35.3 GERD (gastroesophageal reflux disease) K21.9 Chronic obstructive pulmonary disease J44.9 Stress-induced cardiomyopathy I51.81 Primary small cell malignant neoplasm of lung, stage 4 C34.90 Anemia D64.9 Thrombocytopenia D69.6 Chronic hypoxemic respiratory failure J96.11 Persistent depressive disorder F34.1 Depression Type: persistent depressive disorder (1) Pneumonia Laterality: unspecified laterality Lung location: unspecified part of lung Pneumonia type: due to unspecified organism Qualified Code(s): J18.9 - Pneumonia, unspecified organism (11) Depression Depression Type: persistent depressive disorder Qualified Code(s): F34.1 - Dysthymic disorder
[2023-06-14] MEDS: SERTRALINE HCL 100 MG TABLET PO SCH (20:02)
[2023-06-14] MEDS: SENNA 8.6 MG TAB PO SCH (20:08)
[2023-06-14] MEDS: SERTRALINE HCL 50 MG TABLET PO SCH (20:14)
[2023-06-15 07:37] LABS: Basophils # (auto) 0.01 K/uL (0.00-0.20); Basophils % (auto) 0.2 %; Eosinophils # (auto) 0.04 K/uL (0.00-0.50); Eosinophils % (auto) 0.7 %; Hematocrit (blood only) 26.9 % (37.0-47.0); Hemoglobin 8.6 g/dl (12.0-16.0); Immature Granulocytes # (auto) 0.06 K/uL (0.01-0.20); Immature Granulocytes % (auto) 1.1 %; Lymphocytes # (auto) 0.39 K/uL (1.20-3.40); Lymphocytes % (auto) 7.1 %; Mean Corpuscular Hemoglobin 32.6 pg (25.0-34.0); Mean Corpuscular Volume 101.9 fL (80.0-100.0); Mean Platelet Volume 9.4 fL (9.4-12.4); Monocytes # (auto) 0.61 K/uL (0.11-0.59); Monocytes % (auto) 11.1 %; Neutrophils # (auto) 4.37 K/uL (1.40-6.50); Neutrophils % (auto) 79.8 %; Platelet Count 130 K/uL (130-400); RDW Coefficient of Variation 15.7 % (11.5-14.5); RDW Standard Deviation 59.5 fL (36.4-46.3); Red Blood Count 2.64 M/uL (4.20-5.40); White Blood Count 5.48 K/ul (4.8-10.8)
[2023-06-15 07:50] LABS: BUN Creatinine Ratio 18.3 (10-20); Calcium 8.3 mg/dl (8.6-10.3); Creatinine Clr Calc Pharmacy 37.2 ml/min; Est GFR (African American) 59.2 ml/min; Est GFR (Non-African American) 51.1 ml/min; Potassium 3.3 mmol/L (3.5-5.1)
[2023-06-15 08:06] LABS: INR 5.9 (0.9-1.1)
[2023-06-15] MEDS: predniSONE 20 MG TAB PO SCH (08:22)
[2023-06-15] MEDS: POTASSIUM CHLORIDE CRTAB 20 MEQ TABCR PO STA (11:06)
--- NOTE | 2023-06-15 16:24 | Hospitalist Progress Note ---
Date of Service June 15, 2023 Assessment & Plan (1) Pneumonia: Plan: 77yo female presenting with productive cough, congestion and weakness. 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 She is afebrile, non-toxic in appearance, no respiratory distress. Initially hypotensive which has since resolved. CT findings concerning for bilateral PNA, possible aspiration. She had Flu A the end of March and feels she never fully recovered despite treatment with a prednisone burst and taper, Levaquin in early Apr, and then po doxycycline the end of april. With increased sputum production, cough, and chest pain, and leukocytosis. She is immunocompromised on immunotherapy for her lung CA Viral resp panel BioFire negative, MRSA nasal swab neg, Procal negative, Blood cxs NGTD Much improved with IV ZOsyn, and doxycycline for atypical coverage Mild hypotension on AM of 06/13--> added IV hydrocortisone for stress dose steroids-then weaned down to prednisone 20 mg daily -Maintain aspiration precautions -Follow BCxs-NGTD -check sputum cx-pending -Continue supplemental O2 - on 2L continuous at home -continue Zosyn 4.5gm IV q 8, doxy -Tylenol PRN -Guaifenesin syrup PRN -pulm toilet -follow imaging to resolution -toradol x 1 given for pleuritic type chest pain which is now improving (2) Paroxysmal atrial fibrillation: Plan: Patient presently in NSR -on Coumadin with goal of 2.5 - 3.5 per daughter, was on 1.25mg daily -INR today 5.9, no bleeding from anywhere and hgb stable at 8.6--> likely from interaction with antibiotics -HOLD Coumadin, no need for vit K as no bleeding -Continue Amiodarone -follow INR in AM (3) Polymyalgia rheumatica: Plan: Chronic. Stable. Patient on Prednisone 10mg po daily -with BP systolics in 80s on AM of 06/13--> stress dose steroids as above and now improved -continue prednisone but decrease to 15mg for tomorrow, then back to 10mg after that (4) GERD (gastroesophageal reflux disease): Plan: With worsening epigastric pain which has been ongoing and now improving-likely due to pneumonia -Protonix 40mg po daily -Unsure why she is still on Carafate 1gm po QID and she does not like taking it- consider stopping (5) Chronic obstructive pulmonary disease: Plan: No wheezing at present. No respiratory distress -Continue Albuterol/Ipratropium BID and q 6 hours PRN Continue maintenance inhaler (6) Stress-induced cardiomyopathy: Plan: resolved, follows with Cardiology (7) Primary small cell malignant neoplasm of lung, stage 4: Plan: She is on maintenance atezolizumab. PET scan 04/25/2023 revealed positive treatment response with the previously described metastatic left hepatic lesion not well-visualized. There has been interval development of a subpleural 2.2 cm consolidative hypermetabolic nodular opacity in the apical segment of the right upper lobe possibly infectious. CT chest 04/25/2023 revealed mild focal groundglass opacity in the right lung apex and in the posterior left lower lobe. Follows with Oncology, Pulm Family requesting inpatient Palliative consult as they were to see Palliative as an outpt this week anyway-appreciate goals of care discussion (8) Anemia: Plan: hgb low but stable at 8.6, macrocytic B12 and folate normal in 02/2023 possibly from immune therapy? takes folic acid and B12 supplements as outpt follow CBC periodically (9) Thrombocytopenia: Plan: mildly low but stable from previous, possibly from immune therapy? B12 normal in 02/2023 follows with Heme Follow CBC (10) Chronic hypoxemic respiratory failure: Plan: Chronic respiratory failure with hypoxia (11) Depression: Plan: Continue sertraline but increased dose to 125 mg at bedtime for worsening anxiety Continue trazodone at bedtime Continue olanzapine at bedtime Diazepam as needed Plan DVT proph-coumadin Dispo-continued stay, PT/OT ordered-PT recommends home with 20/11 care-possibly home tomorrow FLush out ear today with hydrogen peroxide and warm water, continue Debrox ear gtts Admission and Anticipated Discharge Date Admission Date: June 11, 2023 Subjective Pt reports feeling better. WOuld like her left ear flushed out. Still no BM in 3 days and requesting extra senna. At home, she typically takes 4 senna all at once. Less chest pains today. Not coughing anything out. No bleeding from anywhere, INR elevated at 5.9 Physical Exam Constitutional: WD/WN, vitals as above ENMT: Ears: + hearing impairment Respiratory: normal respiratory effort; no cough Auscultation: + crackles (right lower and middle lung hernandez); no rhonchi and no wheezes Cardiovascular: RRR, no murmur, no edema Gastrointestinal (Abdomen): normal bowel sounds, soft, nontender, no hepatosplenomegaly Psychiatric: A+Ox3, euthymic affect Results & Data Results & Data Vital Signs (Past 12 Hours) Vital Signs Temp Pulse Resp BP Pulse Ox O2 Del Method O2 Flow Rate 06/15/23 15:22 36.9 C 76 18 121/64 98 Nasal Cannula 2 06/15/23 09:33 Nasal Cannula 2 06/15/23 07:10 36.4 C 86 18 142/64 H 90 Room Air 06/15/23 05:53 71 16 97 Nasal Cannula 2 Laboratory Results CBC, BMP, INR reviewed PG Care Time/CCT Total # of Minutes Spent Total Time Spent with Patient: Total time spent is greater than 50% in coordination of care (as documented) at patient's floor/unit and/or counseling patient: Coding Level of Care Code 41313 SUB INP/OBS CARE 2/35MIN Diagnoses Pneumonia J18.9 Laterality: unspecified laterality Lung location: unspecified part of lung Pneumonia type: due to unspecified organism Paroxysmal atrial fibrillation I48.0 Polymyalgia rheumatica M35.3 GERD (gastroesophageal reflux disease) K21.9 Chronic obstructive pulmonary disease J44.9 Stress-induced cardiomyopathy I51.81 Primary small cell malignant neoplasm of lung, stage 4 C34.90 Anemia D64.9 Thrombocytopenia D69.6 Chronic hypoxemic respiratory failure J96.11 Persistent depressive disorder F34.1 Depression Type: persistent depressive disorder (1) Pneumonia Laterality: unspecified laterality Lung location: unspecified part of lung Pneumonia type: due to unspecified organism Qualified Code(s): J18.9 - Pneumonia, unspecified organism (11) Depression Depression Type: persistent depressive disorder Qualified Code(s): F34.1 - Dysthymic disorder
[2023-06-15] MEDS: SENNA 8.6 MG TAB PO ONE (17:01)
[2023-06-16 06:57] LABS: Basophils # (auto) 0.01 K/uL (0.00-0.20); Basophils % (auto) 0.2 %; Eosinophils # (auto) 0.04 K/uL (0.00-0.50); Eosinophils % (auto) 0.8 %; Hematocrit (blood only) 25.9 % (37.0-47.0); Hemoglobin 7.9 g/dl (12.0-16.0); Immature Granulocytes # (auto) 0.07 K/uL (0.01-0.20); Immature Granulocytes % (auto) 1.3 %; Lymphocytes # (auto) 0.46 K/uL (1.20-3.40); Lymphocytes % (auto) 8.7 %; Mean Corpuscular Hemoglobin 32.1 pg (25.0-34.0); Mean Corpuscular Hgb Conc 30.5 g/dL (32.0-36.0); Mean Corpuscular Volume 105.3 fL (80.0-100.0); Mean Platelet Volume 9.3 fL (9.4-12.4); Monocytes # (auto) 0.64 K/uL (0.11-0.59); Monocytes % (auto) 12.1 %; Neutrophils # (auto) 4.05 K/uL (1.40-6.50); Neutrophils % (auto) 76.9 %; Platelet Count 132 K/uL (130-400); RDW Coefficient of Variation 15.9 % (11.5-14.5); RDW Standard Deviation 61.2 fL (36.4-46.3); Red Blood Count 2.46 M/uL (4.20-5.40); White Blood Count 5.27 K/ul (4.8-10.8)
[2023-06-16 07:08] VITALS: BP 112/63; TEMP 97.9
[2023-06-16 07:17] LABS: BUN Creatinine Ratio 22.1 (10-20); Calcium 8.2 mg/dl (8.6-10.3); Creatinine Clr Calc Pharmacy 40.8 ml/min; Magnesium 1.7 mg/dl (1.7-2.4); Potassium 3.8 mmol/L (3.5-5.1)
[2023-06-16 07:24] LABS: Prothrombin Time 56.6 Seconds (9.0-12.0)
[2023-06-16 07:39] LABS: RBC Morphology Unremarkable
[2023-06-16 07:57] VITALS: PULSE 75; RESP 16; O2SAT 95
[2023-06-16 08:15] LABS: INR 5.8 (0.9-1.1)
[2023-06-16] MEDS: predniSONE 5 MG TAB PO SCH (09:32)
--- NOTE | 2023-06-16 11:43 | Discharge Summary ---
Discharge Summary Date of Service June 16, 2023 Notes For Next Care Provider Check INR on Sunday06/18/23 Medication Changes From Visit Augmentin 875mg po bid x 2 days Doxycycline 100mg po bid x 2 days Increased sertraline to 125mg po hs Admission HPI Per Admitting Provider Carla Ward is a 77yo female with history of metastatic lung cancer on immun otherapy and supplemental O2 2L, PAF, COPD, DM and SIADH presenting from home with several weeks of ongoing cough productive for green sputum and congestion as well as generalized weakness and pleuritic chest pain. Patient had the flu approximately 5-6 weeks ago and had not fully recovered. She did take a course of antibiotics. She reports ongoing symptoms. She was seen in Oncology clinic today and sent to the ER due to concern for pneumonia and possible PE. Patient has also had progressive upper abdominal pain for the last week. Additionally patient reports chest heaviness at times as well as hoarseness of her voice. Otherwise denies abdominal pain, nausea, vomiting, diarrhea, urinary complaints. No sick contacts or recent travel. In the ER she is afebrile, blood pressure initially 86/49 which improved with IVF. ER Course: Cefepime nss Principal Dx & Hospital Course #1 = Principal Diagnosis (1) Pneumonia: 77yo female presenting with productive cough, congestion and weakness. 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 She is afebrile, non-toxic in appearance, no respiratory distress. Initially hypotensive which has since resolved. CT findings concerning for bilateral PNA, possible aspiration. She had Flu A the end of March and feels she never fully recovered despite treatment with a prednisone burst and taper, Levaquin in early Apr, and then po doxycycline the end of april. With increased sputum production, cough, and chest pain, and leukocytosis. She is immunocompromised on immunotherapy for her lung CA Viral resp panel BioFire negative, MRSA nasal swab neg, Procal negative, Blood cxs remained NGTD Much improved with IV Zosyn, and doxycycline for atypical coverage Mild hypotension on AM of 06/13--> added IV hydrocortisone for stress dose steroids-then weaned down to prednisone 10 mg daily -Follow BCxs-NGTD -checked sputum cx-Juli which is a colonizer, not a pathogen-no need to treat -Continue supplemental O2 - on 2L continuous at home -stop Zosyn and convert to po Augmentin x 2 more days along with 2 more days of doxy for discharge -pulm toilet -follow imaging to resolution with CXR in 4 weeks although I believe she has a CT Chest scheduled in 1 month anyway -toradol x 1 given for pleuritic type chest pain which is now much improved (2) Paroxysmal atrial fibrillation: Remained in NSR here throughout her stay -on Coumadin with goal of 2.5 - 3.5 per daughter, was on 1.25mg daily -INR up to 5.9 and Coumadin held, INR day of discharge 5.8---> no bleeding from anywhere and hgb stable at 7.9--> likely from interaction with antibiotics -continue to HOLD Coumadin on discharge, no need for vit K as no bleeding -check INR at home on 06/18 and daughter already has instructions to start 0.5mg tablet potentially after that-follows with Cardio clinic for Coumadin -Continue Amiodarone (3) Polymyalgia rheumatica: Chronic. Stable. Patient on Prednisone 10mg po daily -with BP systolics in 80s on AM of 06/13--> stress dose steroids as above and now improved -continue prednisone taper back to 10mg daily after discharge (home dose) (4) GERD (gastroesophageal reflux disease): With worsening epigastric pain which has been ongoing and now improving-likely due to pneumonia -Protonix 40mg po daily -was also given carafate here but no need to continue on discharge (5) Chronic obstructive pulmonary disease: occasional mild wheezing, No respiratory distress, on usual 2LNC -Continue Albuterol/Ipratropium BID and q 6 hours PRN Continue maintenance inhaler (6) Stress-induced cardiomyopathy: resolved, follows with Cardiology (7) Primary small cell malignant neoplasm of lung, stage 4: She is on maintenance atezolizumab. PET scan 04/25/2023 revealed positive treatment response with the previously described metastatic left hepatic lesion not well-visualized. There has been interval development of a subpleural 2.2 cm consolidative hypermetabolic nodular opacity in the apical segment of the right upper lobe possibly infectious. CT chest 04/25/2023 revealed mild focal groundglass opacity in the right lung apex and in the posterior left lower lobe. Follows with Oncology, Pulm Has Chest and A/P CT ordered for June Family requesting inpatient Palliative consult as they were to see Palliative as an outpt this week anyway-appreciate goals of care discussion (8) Anemia: hgb low but stable at 8.6, macrocytic B12 and folate normal in 02/2023 possibly from immune therapy? takes folic acid and B12 supplements as outpt follow CBC as outpt with Heme/Onc (9) Thrombocytopenia: mildly low but stable from previous, possibly from immune therapy? B12 normal in 02/2023 follows with Heme Follow CBC (10) Chronic hypoxemic respiratory failure: Chronic respiratory failure with hypoxia (11) Depression: Continue sertraline but increased dose to 125 mg at bedtime for worsening anxiety Continue trazodone at bedtime Continue olanzapine at bedtime Diazepam as needed Plan DVT proph-coumadin Dispo-dc to home with home health FLushed out left ear with hydrogen peroxide and warm water, continue Debrox ear gtts Discharge Exam Constitutional WD/WN, vitals as above ENMT Ears: + hearing impairment Respiratory normal respiratory effort; no cough Auscultation: + crackles (right lower and middle lung hernandez); no rhonchi and no wheezes Cardiovascular RRR, no murmur, no edema Gastrointestinal (Abdomen) normal bowel sounds, soft, nontender, no hepatosplenomegaly Psychiatric A+Ox3, euthymic affect Updated Medication List Medication Instructions Recorded Confirmed Type cholecalciferol (vitamin D3) 25 25 mcg PO DAILY 12/01/21 06/11/23 History mcg (1,000 unit) capsule nebulizers #1 ea 12/05/21 06/11/23 Rx calcium 600 mg-D3 800 unit-mag11 1 tab PO BID #60 tabs 04/27/22 06/11/23 Rx 50 da-xysv-kqvuup-beulah-s.borat tablet (Caltrate 600-D Plus Minerals) sennosides 8.6 mg tablet (Senokot) 8.6 mg PO DAILY PRN Constipation 06/01/22 06/11/23 History vibegron 75 mg tablet (Gemtesa) 75 mg PO DAILY #90 tabs 07/20/22 06/11/23 Rx mecobalamin (vitamin B12) 1,000 1,000 mcg sublingual DAILY 10/26/22 06/11/23 History mcg disintegrating tablet,sublingual budesonide 160 mcg-glycopyr 9 2 inh inhalation BID #10.7 grams 12/11/22 06/11/23 Rx mcg-formot 4.8 mcg/actuation HFA inhaler (Breztri Aerosphere) folic acid 1 mg tablet 1 mg PO QPM #30 tabs 12/11/22 06/11/23 Rx docusate sodium 100 mg capsule 100 mg PO BID Constipation 01/03/23 06/11/23 History (Colace) polyethylene glycol 3350 17 17 g PO DAILY PRN Constipation 01/03/23 06/11/23 History gram/dose oral powder (Miralax) olanzapine 5 mg tablet 5 mg PO QPM 01/10/23 06/11/23 History trazodone 50 mg tablet 100 mg PO HS 01/10/23 06/11/23 History ondansetron HCl 8 mg tablet 8 mg PO Q8H PRN Nausea 01/22/23 06/11/23 History oxycodone 5 mg tablet 0 mg PO Q8H PRN Pain 01/22/23 06/11/23 History sertraline 50 mg tablet 100 mg PO HS 02/27/23 06/11/23 History lidocaine 5 % topical patch 0 patch transdermal Q24H PRN Other 02/28/23 06/11/23 History diazepam 2 mg tablet 2 mg PO BID PRN sedation #60 tabs 03/09/23 06/11/23 Rx amiodarone 200 mg tablet 200 mg PO DAILY #90 tabs 05/17/23 06/11/23 Rx furosemide 20 mg tablet 20 mg PO QAM PRN Other 05/19/23 06/11/23 History magnesium oxide 400 mg (241.3 mg 400 mg PO QAM 30 days #30 tabs 05/19/23 06/11/23 Rx magnesium) tablet prednisone 10 mg tablet 10 mg PO DAILY #30 tabs 06/06/23 06/11/23 Rx acetaminophen 500 mg tablet 1,000 mg PO .BID-TID 06/11/23 06/11/23 History (Tylenol Extra Strength) ipratropium 0.5 mg-albuterol 3 mg 3 ml inhalation BID wheezing 06/11/23 06/11/23 History (2.5 mg base)/3 mL nebulization soln ipratropium 0.5 mg-albuterol 3 mg 3 ml inhalation Q6 PRN Shortness 06/11/23 06/11/23 History (2.5 mg base)/3 mL nebulization Of Breath Or Wheezing soln melatonin 10 mg tablet 10 mg PO HS 06/11/23 06/11/23 History warfarin 2.5 mg tablet (Jantoven) 1.25 mg PO .DAILY THRU FRI 06/11/23 06/11/23 History warfarin 1 mg tablet 1 mg PO DAILY #90 tabs 06/15/23 Rx amoxicillin 875 mg-potassium 1 tab PO BID #4 tabs 06/16/23 Rx clavulanate 125 mg tablet carbamide peroxide 6.5 % ear drops 4 drp OTL BID PRN ear wax #15 mL 06/16/23 Rx (Ear Wax Removal Kit) doxycycline hyclate 100 mg capsule 100 mg PO BID #4 caps 06/16/23 Rx sertraline 25 mg tablet 25 mg PO HS #30 tabs 06/16/23 Rx Hospital Stay Data Consultations 06/11/23 19:23 ED Decision to Admit Stat 06/12/23 17:22 Consult Palliative Care Routine Diagnostic Imagining Performed 06/11/23 20:19 CT chest diagnostic wo con Urgent Pending Results Patient Have Any Pending Studies at Discharge: Yes (Blood cultures-no growth to date) Discharge Instructions Given to Patient (Per Discharging Provider) Please finish out 2 more days of Augmentin and doxycycline twice a day for your pneumonia. Please have your doctor order a repeat chest xray in 3-4 weeks to see if pneumonia is clearing up. Your sertraline dose was increased to 125mg daily to help with your anxiety. Your INR is high at 5.8--> please continue to HOLD your coumadin and recheck your INR at home on Sunday. Total Time Total Time Spent Total Time Spent (In Minutes): 35 min Coding Level of Care Code 33876 INP/OBS DISCH >30 MIN Diagnoses Pneumonia J18.9 Laterality: unspecified laterality Lung location: unspecified part of lung Pneumonia type: due to unspecified organism Paroxysmal atrial fibrillation I48.0 Polymyalgia rheumatica M35.3 GERD (gastroesophageal reflux disease) K21.9 Chronic obstructive pulmonary disease J44.9 Stress-induced cardiomyopathy I51.81 Primary small cell malignant neoplasm of lung, stage 4 C34.90 Anemia D64.9 Thrombocytopenia D69.6 Chronic hypoxemic respiratory failure J96.11 Persistent depressive disorder F34.1 Depression Type: persistent depressive disorder
== END 2023-06-16 13:07 | disposition home or self-care (01) | DRG 178 ==
LOC: ED 15:39 → SUATTDRO 20:28 → EDINP 20:28 → 3N 06-12 00:35

== ENCOUNTER 2023-07-23 13:59 | Inpatient (IN) ==
--- NOTE | 2023-07-23 14:41 | XRay Report ---
XR chest 1V portable CLINICAL HISTORY: Sepsis. COMPARISON STUDY: Chest radiograph and chest CT June 11, 2023. PET/CT June 27, 2023. FINDINGS: Left subclavian Gekkzw-c-Buiz is in place. There is no pneumothorax. Elevation of the left hemidiaphragm is unchanged. There is a small left pleural effusion. Right lower lung opacity favors a telectasis. No consolidation is identified to suggest pneumonia. Cardiomediastinal silhouette is stab le. No radiographic evidence for pulmonary edema. IMPRESSION: 1. Small left pleural effusion. Stable elevation of the left hemidiaphragm. 2. No pneumothorax. ACT 112: Negative or not required by law. Electronically signed by: Sanchez Begum M.D. 07/23/2023 2:39 PM
--- NOTE | 2023-07-23 14:44 | Electrocardiogram Report ---
Test Reason : Blood Pressure : / mmHG Vent. Rate : 118 BPM Atrial Rate : 118 BPM P-R Int : 158 ms QRS Dur : 110 ms QT Int : 382 ms P-R-T Axes : 030 -73 051 degrees QTc Int : 535 ms Sinus tachycardia with frequent Premature atrial complexes Incomplete right bundle branch block Left anterior fascicular block Minimal voltage criteria for LVH, may be normal variant Prolonged QT Abnormal ECG When compared with ECG of 11-JUN-2023 16:59, Vent. rate has increased BY 41 BPM Confirmed by Chandan Arrieta ([id number]) on 07/23/2023 2:44:16 PM Referred By: Confirmed By:Chandan Arrieta
--- NOTE | 2023-07-23 14:45 | Emergency Department Note ---
Impression & Plan Acute exacerbation of chronic obstructive pulmonary disease, Pneumonia, Hypoxia, Acute respiratory distress, Anemia, JAMIL (acute kidney injury) ED Provider Note NAME: MEG HOBBS AGE: 77 SEX: F : 1945 ARRIVES VIA: Ambulance INFORMANT: Patient, EMS ED PROVIDER(S): Chandan Burton DO CHIEF COMPLAINT: Shortness of breath HPI: The patient is a 77-year-old female who presented to the emergency department for shortness of breath. The patient is a history of CHF as well as COPD. She started having worsening symptoms over the course of the last 2 weeks. The patient states that she has had a cough. She denies having any hemoptysis. She does notice lower extremity swelling but no worse than usual. The patient has had no fevers. She has not been seen by her family doctor. The patient states that she has been increasing her oxygen. She normally wears 2 L of oxygen nasal cannula but started wearing 4 L. She denies having any chest pain. She denies having any abdominal pain. ROS: See above HPI for pertinent positives & negatives. A total of 10 systems reviewed and were otherwise negative. PAST MEDICAL HISTORY: See Below PAST SURGICAL HISTORY: See Below FAMILY HISTORY: See Below SOCIAL HISTORY: See Below HOME MEDICATIONS: See Below ALLERGIES: See Below VITALS: See Below PHYSICAL EXAMINATION: GENERAL: The patient is awake and alert. The patient is somewhat anxious appearing. EYES: The conjunctivae are clear. The pupils are round and reactive. EARS, NOSE, MOUTH AND THROAT: The nose is without any evidence of any deformity. NECK: The neck is nontender and supple. RESPIRATORY: Diminished breath sounds are noted throughout. Rales were noted in all lung henrandez. There is tachypnea as well as conversational dyspnea appreciated. CARDIOVASCULAR: Regular rate and rhythm noted there no murmurs rubs or gallops normal S1 normal S2. GASTROINTESTINAL: The abdomen is soft. Abdomen is nontender. MUSCULOSKELETAL/EXTREMITIES: There is no evidence of gross deformity full range of motion is noted in the hips and shoulders. SKIN: There is no obvious evidence of any rash. Pedal edema was noted bilaterally NEUROLOGIC: Patient is awake alert and oriented x3 MEDICAL DECISION MAKING: The patient is a 77-year-old female who presented to the emergency department for an evaluation of shortness of breath. The patient has a history of CHF but also has a history of COPD. She was treated with a small fluid bolus in the emergency department. Caution was undertaken because of the patient's history of CHF. She was also treated with IV antibiotics IV steroids and bronchodilator therapy. I discussed patient's laboratory and radiographic studies with her. She had an elevated white blood cell count. I do feel that her condition is most likely consistent with COPD as well as an infectious process. I discussed patient's laboratory and radiographic studies with her. I discussed her condition with the on-call [facility]. They have agreed to evaluate the patient in the emergency department for further management and disposition. Triage Nursing notes reviewed. Prior medical records reviewed Vital Signs: reviewed and remarkable for hypotension and hypoxia. Differential diagnosis: Reactive airway disease, pneumonia, pneumothorax, COPD, CHF, infections, cardiac ischemia, pulmonary embolism, musculoskeletal, gastrointestinal, as well as other pathologies. ER treatment provided: See below Diagnostics interpreted by me: ECG: EKG was obtained in the emergency department. My interpretation is sinus tachycardia at 118 bpm. Right bundle branch block pattern was noted. PACs were noted. Diffuse ST segment abnormalities noted. This was compared to a tracing from June 11, 2023. No significant changes were noted. Cardiac Monitoring: An order was placed for continuous cardiac monitoring. The monitor shows a rate of 110 bpm with sinus tachycardia. PACs were noted. Laboratory studies: As stated above and show below. Imaging studies: See below. Radiographic imaging was reviewed by myself Consultation(s): I discussed this case with Dr. Morgan who is on-call for the [facility]. ED COURSE: Procedures: none Critical Care: I have personally spent greater than 45 minutes of critical care time in the direct management of this patient. This includes bedside care, interpretation of diagnostic studies, and testing, discussion with consultants, patient, and family members, and other required patient management activities. This 45 minutes is in excess of all separately billable procedures. Past Med/Surg History Medical History (Updated 07/23/23 @ 18:40 by Chandan Burton DO) Sepsis Pulmonary cachexia due to chronic obstructive pulmonary disease Weakness generalized Muscular deconditioning SIADH (syndrome of inappropriate ADH production) Stress-induced cardiomyopathy Anteroapical myocardial infarction Pulmonary embolism Carcinoma in situ of bladder Anxiety about health Anxiety associated with cancer diagnosis Depression Declining performance status Dyspnea and respiratory abnormalities Anemia Dysphagia Primary small cell malignant neoplasm of lung, stage 4 Acute kidney injury Hypomagnesemia Non-ST elevation PR (NSTEMI) Acute UTI (urinary tract infection) Cardiomyopathy Paroxysmal atrial fibrillation Hyponatremia Breast cancer DVT (deep venous thrombosis) (10/2022) LFTs abnormal Pneumonia Liver lesion Excessive cerumen in both ear canals Anxiety Insomnia Urinary incontinence Chronic hypoxemic respiratory failure Chronic obstructive pulmonary disease Hypomagnesemia Anticoagulant long-term use UTI (urinary tract infection) Chronic respiratory failure with hypoxia Polymyalgia rheumatica Small cell lung cancer GERD (gastroesophageal reflux disease) Pancytopenia due to antineoplastic chemotherapy Ex-smoker Lower extremity edema Chronic dyspnea Small cell lung cancer Malignant neoplasm of lung Bronch with biopsy on 11/15/21 Hearing deficit cannot afford hearing aids Vertebral fracture LUMBAR AND THORACIC Osteoporosis Tremor RIGHT HAND Migraine HX Compression fracture of L1 vertebra (08/15/21) Chronic Endometrial thickening on ultrasound Ureteral tumor Port-A-Cath in place Liver abscess History of diverticulitis Hx of bladder cancer HAD BCG INSTILLATION - DX: 2012 History of liver disease 03/2019 KIMBER[facility] FOR LIVER ABSCESS- GIVEN ABXS X MONTHS- FOLLOWING WITH HEME FOR MONITORING -RECENT CT SCAN 06/16/19- SHOWS ABSCESS TO BE DECREASED TO 3.5CM (SURGEON IS AWARE) Asthma (04/25/12) Stable and controlled Diabetes mellitus, type 2 NIDDM- WELL CONTROLLED AND STABLE History of breast cancer RIGHT S/P LUMPECTOMY/CHEMO/RADATION (2009)- STABLE AT THIS TIME Left rib fracture (2016) Surgical History S/P ablation of atrial flutter History of bronchoscopy 11/15/21 Nausea and vomiting after administration of anesthetic agent H/O cystoscopy SEVERAL History of colonoscopy History of surgery LEFT CHEST PORT History of lumpectomy of right breast History of elbow surgery RIGHT History of arthroscopy B/L KNEE History of breast biopsy History of surgery TURBT X 2; TURBT, CYSTO, RIGHT RPG, STENT: 07/11/18: LMA#4 AT [facility] History of appendectomy History of cholecystectomy Family History Other Adopted Family history unknown Social History Smoking Status: Former smoker Tobacco Type: Cigarettes Cigarettes Per Day: Less than 1/2 PPD now;Smoked 50+yrs;; Second Hand Exposure: Yes; Do You Dip or Chew Tobacco: No; Hx Alcohol Use: No Hx Substance Use: No Preferred Language: Italian Communication Ability: Effective Communication Tools: Other Visual Impairment: No Limitations Hearing Ability: Hard of Hearing Risk Management Analyst Required: No Beliefs That Will Affect Care: None marital status: Single Current Living Situation: Other Current Living Situation Comment: roomate current occupational status: retired Feels Safe at Home: Yes Childhood Exposure to Second-Hand Smoke: Yes Diet: regular caffeine: No during the past year weight has: remained stable Dental Care, Regularly: Yes Physical Activity Frequency: 1-2 Times per Week Seatbelt Use: always Sunscreen Use: Yes Assistive Devices: Bedside Commode, Hospital Bed, Walker and Wheelchair Allergies Allergies Allergy/AdvReac Type Severity Reaction Status Date / Time castor oil Allergy Severe "TAXANES" Verified 06/22/23 08:19 CAUSE DYSPNEA, RASH, ELEVATED BP docetaxel [From Taxotere] Allergy Severe "TAXANES" Verified 06/22/23 08:19 CAUSE DYSPNEA, RASH, ELEVATED BP paclitaxel Allergy Severe "TAXANES" Verified 06/22/23 08:19 CAUSE DYSPNEA, RASH, ELEVATED BP trimethoprim [From Bactrim] Allergy Severe Anaphylaxis Verified 06/22/23 08:19 Iodinated Contrast Media Allergy Intermediate HIVES/ITCHI Verified 06/22/23 08:19 NG nitrofurantoin Allergy Intermediate CHEST Verified 06/22/23 08:19 PAIN, DYSPNEA Sulfa (Sulfonamide Allergy Intermediate HIVES, Verified 06/22/23 08:19 Antibiotics) ITCHINESS, SHORTNESS OF BREATH codeine AdvReac Intermediate COLD Verified 06/22/23 08:19 SWEAT, THINGS START SPINNING, NAUSEA phenazopyridine AdvReac Intermediate N/V Verified 06/22/23 08:19 Home Meds Home Medications Medication Instructions Recorded Confirmed cholecalciferol (vitamin D3) 25 25 mcg PO DAILY 12/01/21 07/23/23 mcg (1,000 unit) capsule sennosides 8.6 mg tablet (Senokot) 8.6 mg PO DAILY PRN Constipation 06/01/22 07/23/23 mecobalamin (vitamin B12) 1,000 1,000 mcg sublingual DAILY 10/26/22 07/23/23 mcg disintegrating tablet,sublingual docusate sodium 100 mg capsule 100 mg PO BID Constipation 01/03/23 07/23/23 (Colace) polyethylene glycol 3350 17 17 g PO DAILY PRN Constipation 01/03/23 07/23/23 gram/dose oral powder (Miralax) trazodone 50 mg tablet 100 mg PO HS 01/10/23 07/23/23 ondansetron HCl 8 mg tablet 8 mg PO Q8H PRN Nausea 01/22/23 07/23/23 oxycodone 5 mg tablet 0 mg PO Q8H PRN Pain 01/22/23 07/23/23 lidocaine 5 % topical patch 0 patch transdermal Q24H PRN Other 02/28/23 07/23/23 furosemide 20 mg tablet 20 mg PO QAM PRN Other 05/19/23 07/23/23 acetaminophen 500 mg tablet 1,000 mg PO .BID-TID 06/11/23 07/23/23 (Tylenol Extra Strength) ipratropium 0.5 mg-albuterol 3 mg 3 ml inhalation BID wheezing 06/11/23 07/23/23 (2.5 mg base)/3 mL nebulization soln ipratropium 0.5 mg-albuterol 3 mg 3 ml inhalation Q6 PRN Shortness 06/11/23 07/23/23 (2.5 mg base)/3 mL nebulization Of Breath Or Wheezing soln melatonin 10 mg tablet 10 mg PO HS 06/11/23 07/23/23 magnesium 30 mg tablet 30 mg PO DAILY 06/22/23 07/23/23 omeprazole 40 mg capsule,delayed 40 mg PO DAILY 07/23/23 07/23/23 release rivaroxaban 20 mg tablet (Xarelto) 20 mg PO QDD 07/23/23 07/23/23 Previous Rx's Medication Instructions Recorded nebulizers #1 ea 12/05/21 calcium 600 mg-D3 800 unit-mag11 1 tab PO BID #60 tabs 04/27/22 50 kh-hfxp-ihbzav-beulah-s.borat tablet (Caltrate 600-D Plus Minerals) vibegron 75 mg tablet (Gemtesa) 75 mg PO DAILY #90 tabs 07/20/22 diazepam 2 mg tablet 2 mg PO BID PRN sedation #60 tabs 03/09/23 amiodarone 200 mg tablet 200 mg PO DAILY #90 tabs 05/17/23 carbamide peroxide 6.5 % ear drops 4 drp OTL BID PRN ear wax #15 mL 06/16/23 (Ear Wax Removal Kit) folic acid 1 mg tablet 1 mg PO QPM #30 tabs 06/27/23 olanzapine 5 mg tablet 5 mg PO QPM #30 tabs 06/27/23 prednisone 10 mg tablet 10 mg PO DAILY #30 tabs 06/28/23 sertraline 100 mg tablet 100 mg PO DAILY #90 tabs 07/09/23 sertraline 25 mg tablet 25 mg PO HS #90 tabs 07/09/23 budesonide 160 mcg-glycopyr 9 2 inh inhalation BID #10.7 grams 07/20/23 mcg-formot 4.8 mcg/actuation HFA inhaler (Scholaroo) Results & Data (ED) Vital Signs Vital Signs - 24 hr 07/23/23 14:22 07/23/23 14:38 07/23/23 14:38 Temperature 36.8 C Temperature Source Oral Pulse Rate 100 H 96 H 94 H Pulse Rate [Right Finger] Pulse Rate from SpO2 Sensor Pulse Rhythm Regular Regular Pulse Rhythm [Right Finger] Pulse Strength Normal Pulse Strength [Right Finger] Respiratory Rate 22 22 Respiratory Effort / Characteristics Short of Breath Respiratory Depth Normal Respiratory Pattern Regular Blood Pressure 91/45 L Blood Pressure [Left Arm] Blood Pressure Mean 60 Blood Pressure Mean [Left Arm] Blood Pressure Position Semi-fowlers Blood Pressure Position [Left Arm] Pulse Oximetry 94 94 Oxygen Delivery Method Nasal Cannula Nasal Cannula Oxygen Flow Rate 4 4 Sepsis Recent Fever Within 48 Hours No Sepsis New/Unexplained Change in Mental Status No Sepsis Action Taken by Nursing No Action Required 07/23/23 14:38 07/23/23 14:38 07/23/23 14:38 Temperature 36.9 C Temperature Source Oral Pulse Rate Pulse Rate [Right Finger] 97 H Pulse Rate from SpO2 Sensor Pulse Rhythm Pulse Rhythm [Right Finger] Regular Pulse Strength Pulse Strength [Right Finger] Normal Respiratory Rate 22 Respiratory Effort / Characteristics Short of Breath Short of Breath Respiratory Depth Shallow Shallow Respiratory Pattern Regular Blood Pressure Blood Pressure [Left Arm] 91/45 L Blood Pressure Mean Blood Pressure Mean [Left Arm] 60 Blood Pressure Position Blood Pressure Position [Left Arm] Semi-fowlers Pulse Oximetry 94 Oxygen Delivery Method Nasal Cannula Nasal Cannula Nasal Cannula Oxygen Flow Rate 4 4 4 Sepsis Recent Fever Within 48 Hours Sepsis New/Unexplained Change in Mental Status Sepsis Action Taken by Nursing 07/23/23 17:56 07/23/23 18:06 07/23/23 18:12 Temperature Temperature Source Pulse Rate 115 H 122 H 120 H Pulse Rate [Right Finger] Pulse Rate from SpO2 Sensor 119 H 123 H 124 H Pulse Rhythm Pulse Rhythm [Right Finger] Pulse Strength Pulse Strength [Right Finger] Respiratory Rate 21 29 H 35 H Respiratory Effort / Characteristics Respiratory Depth Respiratory Pattern Blood Pressure 76/45 L 73/41 L 106/62 Blood Pressure [Left Arm] Blood Pressure Mean 55 51 76 Blood Pressure Mean [Left Arm] Blood Pressure Position Blood Pressure Position [Left Arm] Pulse Oximetry 86 L 99 95 Oxygen Delivery Method Nasal Cannula Oxygen Flow Rate 2 Sepsis Recent Fever Within 48 Hours Sepsis New/Unexplained Change in Mental Status Sepsis Action Taken by Nursing 07/23/23 18:25 Temperature Temperature Source Pulse Rate 116 H Pulse Rate [Right Finger] Pulse Rate from SpO2 Sensor Pulse Rhythm Pulse Rhythm [Right Finger] Pulse Strength Pulse Strength [Right Finger] Respiratory Rate 22 Respiratory Effort / Characteristics Respiratory Depth Respiratory Pattern Blood Pressure 99/48 L Blood Pressure [Left Arm] Blood Pressure Mean Blood Pressure Mean [Left Arm] Blood Pressure Position Blood Pressure Position [Left Arm] Pulse Oximetry 97 Oxygen Delivery Method Nasal Cannula Oxygen Flow Rate 4 Sepsis Recent Fever Within 48 Hours Sepsis New/Unexplained Change in Mental Status Sepsis Action Taken by Residential Medications Current Medication List: was personally reviewed by me Laboratory Data Attestation: I reviewed the patient's lab results. 07/23/23 15:04 07/23/23 15:04 Lab Results 07/23/23 07/23/23 07/23/23 Range/Units 15:04 17:21 17:33 WBC 23.89 H (4.8-10.8) K/ul RBC 2.77 L (4.20-5.40) M/uL Hgb 9.5 L (12.0-16.0) g/dl Hct 30.1 L (37.0-47.0) % MCV 108.7 H (80.0-100.0) fL MCH 34.3 H (25.0-34.0) pg MCHC 31.6 L (32.0-36.0) g/dL RDW Std Deviation 63.4 H (36.4-46.3) fL RDW Coeff of Atul 15.7 H (11.5-14.5) % Plt Count 152 (130-400) K/uL MPV 9.4 (9.4-12.4) fL Immature Gran % (Auto) 0.8 % Neut % (Auto) 89.2 % Lymph % (Auto) 1.1 % [place] % (Auto) 8.4 % Eos % (Auto) 0.3 % Baso % (Auto) 0.2 % Neut # (Auto) 21.32 H (1.40-6.50) K/uL Lymph # (Auto) 0.26 L (1.20-3.40) K/uL [place] # (Auto) 2.00 H (0.11-0.59) K/uL Eos # (Auto) 0.08 (0.00-0.50) K/uL Baso # (Auto) 0.04 (0.00-0.20) K/uL Immature Gran # (Auto) 0.19 (0.01-0.20) K/uL Stomatocytes 1+ PT 12.8 H (9.0-12.0) Seconds INR 1.2 H (0.9-1.1) APTT 29 (21-31) Seconds PTT Ratio 1.0 VBG pH (7.36-7.41) VBG pCO2 (38-50) mmHg VBG pO2 mmHg VBG HCO3 mmol/L VBG O2 Saturation % VBG Base Excess mEq/L Sodium 141 (136-145) mmol/L Potassium 3.6 (3.5-5.1) mmol/L Chloride 104 (98-107) mmol/L Carbon Dioxide 33 H (21-32) mmol/L Anion Gap 4 (3-11) BUN 16 (6-23) mg/dl Creatinine 1.26 H (0.6-1.2) mg/dl Est Cr Clr Drug Dosing 35.4 ml/min Est GFR ( Amer) 46.9 ml/min Est GFR (Non-Af Amer) 40.5 ml/min BUN/Creatinine Ratio 12.7 (10-20) Glucose 109 H (70-99(Fasting)) mg/dl Lactate 1.9 (0.4-2.0) mmol/L Calcium 8.0 L (8.6-10.3) mg/dl Magnesium 1.7 (1.7-2.4) mg/dl Total Bilirubin 0.5 (0.2-1.0) mg/dl Direct Bilirubin 0.1 (0-0.2) mg/dl AST 39 (13-39) U/L ALT 25 (7-52) U/L Alkaline Phosphatase 64 (34-104) U/L Troponin I High Sens 21.7 H 25.3 H (0-14) pg/ml B-Natriuretic Peptide 314 H (0-100) pg/ml Total Protein 4.8 L (6.0-8.3) gm/dl Albumin 2.8 L (3.4-5.0) gm/dl Procalcitonin 23.60 H (0-0.5) ng/ml Urine Color Yellow Urine Appearance Cloudy A (Clear) Urine pH 6.5 (4.5-7.5) Ur Specific [place] 1.015 (1.000-1.030) Urine Protein 3+ H (Negative) Urine Glucose (UA) Negative (Negative) Urine Ketones Negative (Negative) Urine Blood 1+ H (Negative) Urine Nitrite Negative (Negative) Urine Bilirubin Negative (Negative) Urine Urobilinogen Negative (Negative) Ur Leukocyte Esterase 1+ H (Negative) Urine WBC (Auto) >30 H (0-5) /hpf Urine RBC (Auto) 5-10 H (0-4) /hpf U Hyaline Cast (Auto) 5-10 H (0-5) /lpf U Epithel Cells (Auto) >30 H (0-5) /lpf Urine Bacteria (Auto) Negative (Negative) Urine Yeast Not Reportable Adenovirus (PCR) (NotDetected) B. pertussis DNA (PCR) (NotDetected) B.parapertussis DNA PCR (NotDetected) C. pneumoniae DNA (PCR) (NotDetected) Coronavirus OC43 (PCR) (NotDetected) Coronavirus HKU1 (PCR) (NotDetected) Coronavirus 229E (PCR) (NotDetected) SARS-CoV-2 (PCR) (NotDetected) Coronavirus NL63 (PCR) (NotDetected) Human Metapneumovir PCR (NotDetected) Influenza Type A (PCR) (NotDetected) Influenza Type B (PCR) (NotDetected) M. pneumoniae (PCR) (NotDetected) Parainfluenza 1 (PCR) (NotDetected) Parainfluenza 2 (PCR) (NotDetected) Parainfluenza 3 (PCR) (NotDetected) Parainfluenza 4 (PCR) (NotDetected) RSV (PCR) (NotDetected) Entero/Rhino (PCR) (NotDetected) 07/23/23 Range/Units Unknown WBC (4.8-10.8) K/ul RBC (4.20-5.40) M/uL Hgb (12.0-16.0) g/dl Hct (37.0-47.0) % MCV (80.0-100.0) fL MCH (25.0-34.0) pg MCHC (32.0-36.0) g/dL RDW Std Deviation (36.4-46.3) fL RDW Coeff of Atul (11.5-14.5) % Plt Count (130-400) K/uL MPV (9.4-12.4) fL Immature Gran % (Auto) % Neut % (Auto) % Lymph % (Auto) % [place] % (Auto) % Eos % (Auto) % Baso % (Auto) % Neut # (Auto) (1.40-6.50) K/uL Lymph # (Auto) (1.20-3.40) K/uL [place] # (Auto) (0.11-0.59) K/uL Eos # (Auto) (0.00-0.50) K/uL Baso # (Auto) (0.00-0.20) K/uL Immature Gran # (Auto) (0.01-0.20) K/uL Stomatocytes PT (9.0-12.0) Seconds INR (0.9-1.1) APTT (21-31) Seconds PTT Ratio VBG pH 7.36 (7.36-7.41) VBG pCO2 62 H (38-50) mmHg VBG pO2 34 mmHg VBG HCO3 35 mmol/L VBG O2 Saturation < 60.0 % VBG Base Excess 7.4 mEq/L Sodium (136-145) mmol/L Potassium (3.5-5.1) mmol/L Chloride (98-107) mmol/L Carbon Dioxide (21-32) mmol/L Anion Gap (3-11) BUN (6-23) mg/dl Creatinine (0.6-1.2) mg/dl Est Cr Clr Drug Dosing ml/min Est GFR ( Amer) ml/min Est GFR (Non-Af Amer) ml/min BUN/Creatinine Ratio (10-20) Glucose (70-99(Fasting)) mg/dl Lactate (0.4-2.0) mmol/L Calcium (8.6-10.3) mg/dl Magnesium (1.7-2.4) mg/dl Total Bilirubin (0.2-1.0) mg/dl Direct Bilirubin (0-0.2) mg/dl AST (13-39) U/L ALT (7-52) U/L Alkaline Phosphatase (34-104) U/L Troponin I High Sens (0-14) pg/ml B-Natriuretic Peptide (0-100) pg/ml Total Protein (6.0-8.3) gm/dl Albumin (3.4-5.0) gm/dl Procalcitonin (0-0.5) ng/ml Urine Color Urine Appearance (Clear) Urine pH (4.5-7.5) Ur Specific [place] (1.000-1.030) Urine Protein (Negative) Urine Glucose (UA) (Negative) Urine Ketones (Negative) Urine Blood (Negative) Urine Nitrite (Negative) Urine Bilirubin (Negative) Urine Urobilinogen (Negative) Ur Leukocyte Esterase (Negative) Urine WBC (Auto) (0-5) /hpf Urine RBC (Auto) (0-4) /hpf U Hyaline Cast (Auto) (0-5) /lpf U Epithel Cells (Auto) (0-5) /lpf Urine Bacteria (Auto) (Negative) Urine Yeast Adenovirus (PCR) Not Detected (NotDetected) B. pertussis DNA (PCR) Not Detected (NotDetected) B.parapertussis DNA PCR Not Detected (NotDetected) C. pneumoniae DNA (PCR) Not Detected (NotDetected) Coronavirus OC43 (PCR) Not Detected (NotDetected) Coronavirus HKU1 (PCR) Not Detected (NotDetected) Coronavirus 229E (PCR) Not Detected (NotDetected) SARS-CoV-2 (PCR) Not Detected (NotDetected) Coronavirus NL63 (PCR) Not Detected (NotDetected) Human Metapneumovir PCR Not Detected (NotDetected) Influenza Type A (PCR) Not Detected (NotDetected) Influenza Type B (PCR) Not Detected (NotDetected) M. pneumoniae (PCR) Not Detected (NotDetected) Parainfluenza 1 (PCR) Not Detected (NotDetected) Parainfluenza 2 (PCR) Not Detected (NotDetected) Parainfluenza 3 (PCR) Not Detected (NotDetected) Parainfluenza 4 (PCR) Not Detected (NotDetected) RSV (PCR) Not Detected (NotDetected) Entero/Rhino (PCR) Not Detected (NotDetected) Administered Medications Discontinued Medications Albuterol (Albut/Ipratrop 3mg/0.5mg Neb 3 Ml Vial) 3 ml NEB NOW STA; Protocol Stop: 07/23/23 14:05 Last Admin: 07/23/23 14:54 Dose: 3 ml Documented By: ROBERTO Albuterol (Albut/Ipratrop 3mg/0.5mg Neb 3 Ml Vial) 12 ml NEB ONE ONE; Protocol Stop: 07/23/23 15:53 Last Admin: 07/23/23 16:15 Dose: 12 ml Documented By: TRISTON Dexamethasone Sodium Phosphate (DexamethasonePf 10 Mg/Ml Vial) 10 mg IV NOW ONE Stop: 07/23/23 15:53 Last Admin: 07/23/23 16:18 Dose: 10 mg Documented By: TRISTON Hydrocortisone Sodium Succinate (Hydrocortisone Sod Succinate 100 Mg/2 Ml Vial) 100 mg IV NOW STA Stop: 07/23/23 16:40 Last Admin: 07/23/23 16:53 Dose: 100 mg Documented By: TRISTON Sodium Chloride (Nss) 500 mls @ 999 mls/hr IV .Q31M ONE Stop: 07/23/23 16:21 Last Infusion: 07/23/23 18:03 Dose: Infused Documented By: Admin: 07/23/23 16:18 Dose: 999 mls/hr Documented By: TRISTON Ceftriaxone Sodium (Rocephin) 2,000 mg in 50 mls @ 100 mls/hr IV NOW STA Stop: 07/23/23 16:20 Last Infusion: 07/23/23 16:50 Dose: Infused Documented By: Admin: 07/23/23 16:19 Dose: 100 mls/hr Documented By: TRISTON Azithromycin 500 mg/ Dextrose 255 mls @ 125 mls/hr IV NOW ONE Stop: 07/23/23 17:53 Last Infusion: 07/23/23 18:03 Dose: 0 mls/hr Documented By: Admin: 07/23/23 17:25 Dose: 125 mls/hr Documented By: NATALIIA Piperacillin Sod/Tazobactam Sod (Zosyn) 4.5 gm in 100 mls @ 200 mls/hr IV NOW STA Stop: 07/23/23 16:52 Last Infusion: 07/23/23 18:03 Dose: Infused Documented By: Admin: 07/23/23 16:52 Dose: 200 mls/hr Documented By: TRISTON Parenteral Electrolytes (Plasma-Lyte A Ph 7.4) 500 mls @ 999 mls/hr IV .Q31M ONE Stop: 07/23/23 17:09 Last Admin: 07/23/23 18:10 Dose: 999 mls/hr Documented By: TALA Imaging Data Attestation: I personally reviewed and interpreted this imaging study as follows: My Impression: 1 view chest x-ray was obtained in the emergency department. My interpretation is elevation of the left hemidiaphragm, there is no free air, final report below Radiologist's Impression: Chest X-Ray 07/23/23 14:04 XR chest 1V portable CLINICAL HISTORY: Sepsis. COMPARISON STUDY: Chest radiograph and chest CT June 11, 2023. PET/CT June 27, 2023. FINDINGS: Left subclavian [id number] is in place. There is no pneumothorax. Elevation of the left hemidiaphragm is unchanged. There is a small left pleural effusion. Right lower lung opacity favors atelectasis. No consolidation is identified to suggest pneumonia. Cardiomediastinal silhouette is stable. No radiographic evidence for pulmonary edema. IMPRESSION: 1. Small left pleural effusion. Stable elevation of the left hemidiaphragm. 2. No pneumothorax. ACT 112: Negative or not required by law. Electronically signed by: Sanchez Begum M.D. 07/23/2023 2:39 PM Discharge Plan Visit Data Chief Complaint: Chest Pain Stated Complaint: CHEST PAIN ED Provider: Chandan Burton Discharge Problem: Acute exacerbation of chronic obstructive pulmonary disease, Pneumonia, Hypoxia, Acute respiratory distress, Anemia, JAMIL (acute kidney injury) Patient Disposition: Being Evaluated by Hospitalist Discharge Instructions Interventions: ED Discharge Assessment Last Done: 07/23/23 18:25 Forms Stand Alone Forms: My [facility] [employer] Prescriptions Prescriptions: No Action cholecalciferol (vitamin D3) 25 mcg (1,000 unit) capsule 25 mcg PO DAILY mecobalamin (vitamin B12) 1,000 mcg tablet,disintegrating 1,000 mcg sublingual DAILY Rx Instructions: place tablet under tongue and allow to dissolve for at least30 secs before swallowing sennosides [Senokot] 8.6 mg tablet 8.6 mg PO DAILY PRN (Reason: Constipation) (DME) nebulizers Misc See Rx Instructions .Route Qty: 1 0RF Rx Instructions: nebulizer and nebulizer kits/supplies ANNALISA-99 Gemtesa 75 mg tablet 75 mg PO DAILY Qty: 90 3RF amiodarone 200 mg tablet 200 mg PO DAILY Qty: 90 3RF folic acid 1 mg tablet 1 mg PO QPM Qty: 30 5RF olanzapine 5 mg tablet 5 mg PO QPM Qty: 30 5RF prednisone 10 mg tablet 10 mg PO DAILY Qty: 30 1RF sertraline 100 mg tablet 100 mg PO DAILY Qty: 90 1RF sertraline 25 mg tablet 25 mg PO HS Qty: 90 1RF Rx Instructions: To be taken in addition to your 100mg tablet Breztri Aerosphere 160-9-4.8 mcg/actuation HFA aerosol inhaler 2 inh inhalation BID Qty: 10.7 5RF Rx Instructions: Family will bring from home. Caltrate 600-D Plus Minerals 600 mg calcium- 800 unit-50 mg Tablet 1 tab PO BID Qty: 60 0RF trazodone 50 mg tablet 100 mg PO HS furosemide 20 mg tablet 20 mg PO QAM PRN (Reason: Other) docusate sodium [Colace] 100 mg capsule 100 mg PO BID polyethylene glycol 3350 [Miralax] 17 gram/dose powder 17 g PO DAILY PRN (Reason: Constipation) ondansetron HCl 8 mg tablet 8 mg PO Q8H PRN (Reason: Nausea) oxycodone 5 mg tablet 0 mg PO Q8H PRN (Reason: Pain) Rx Instructions: Per med list from preferred pharmacy, this medication is currently on hold. Original directions are 5mg by mouth every 8 hours as needed for pain lidocaine 5 % adhesive patch,medicated 0 patch transdermal Q24H PRN (Reason: Other) Rx Instructions: Per med list from preferred pharmacy, this medication is currently on hold. Original directions are 1 patch topically every 24 hours diazepam 2 mg tablet 2 mg PO BID PRN (Reason: sedation) Qty: 60 0RF magnesium 30 mg Tablet 30 mg PO DAILY omeprazole 40 mg Capsule,Delayed Release(Dr/Ec) 40 mg PO DAILY Xarelto 20 mg tablet 20 mg PO QDD Rx Instructions: must administer with evening meal ipratropium-albuterol 0.5 mg-3 mg(2.5 mg base)/3 mL solution for nebulization 3 ml INHALATION Q6 PRN (Reason: Shortness Of Breath Or Wheezing) Rx Instructions: TAKES BID & PRN melatonin 10 mg Tablet 10 mg PO HS ipratropium-albuterol 0.5 mg-3 mg(2.5 mg base)/3 mL solution for nebulization 3 ml inhalation BID acetaminophen [Tylenol Extra Strength] 500 mg tablet 1,000 mg PO .BID-TID Ear Wax Removal Kit 6.5 % Drops 4 drp OTL BID PRN (Reason: ear wax) Qty: 15 0RF Rx Instructions: please give bottle from hospital Referrals Referrals: Chandan Bro MD [Primary Care Provider] - Discharge Problem: Pneumonia Qualifiers: Pneumonia type: due to unspecified organism Laterality: unspecified laterality Lung location: unspecified part of lung Qualified Code(s): J18.9 - Pneumonia, unspecified organism Anemia Qualifiers: Anemia type: unspecified type Qualified Code(s): D64.9 - Anemia, unspecified
[2023-07-23] MEDS: ALBUT/IPRATROP 3MG/0.5MG NEB 3 ML VIAL NEB STA (14:54)
[2023-07-23 15:32] LABS: Hematocrit (blood only) 30.1 % (37.0-47.0); Hemoglobin 9.5 g/dl (12.0-16.0); Mean Corpuscular Hemoglobin 34.3 pg (25.0-34.0); Mean Corpuscular Hgb Conc 31.6 g/dL (32.0-36.0); Mean Corpuscular Volume 108.7 fL (80.0-100.0); Mean Platelet Volume 9.4 fL (9.4-12.4); Platelet Count 152 K/uL (130-400); RDW Coefficient of Variation 15.7 % (11.5-14.5); RDW Standard Deviation 63.4 fL (36.4-46.3); Red Blood Count 2.77 M/uL (4.20-5.40); White Blood Count 23.89 K/ul (4.8-10.8)
[2023-07-23 15:42] LABS: Base Excess VBG 7.4 mEq/L; HCO3 VBG 35 mmol/L; Oxygen Saturation VBG < 60.0 %; PCO2 VBG 62 mmHg (38-50); PO2 VBG 34 mmHg; pH VBG 7.36 (7.36-7.41)
[2023-07-23 15:49] LABS: Basophils # (auto) 0.04 K/uL (0.00-0.20); Basophils % (auto) 0.2 %; Eosinophils # (auto) 0.08 K/uL (0.00-0.50); Eosinophils % (auto) 0.3 %; Immature Granulocytes # (auto) 0.19 K/uL (0.01-0.20); Immature Granulocytes % (auto) 0.8 %; Lymphocytes # (auto) 0.26 K/uL (1.20-3.40); Lymphocytes % (auto) 1.1 %; Monocytes % (auto) 8.4 %; Neutrophils # (auto) 21.32 K/uL (1.40-6.50); Neutrophils % (auto) 89.2 %; Stomatocytes 1+
[2023-07-23 15:51] LABS: Albumin Level 2.8 gm/dl (3.4-5.0); BUN Creatinine Ratio 12.7 (10-20); Bilirubin Direct 0.1 mg/dl (0-0.2); Bilirubin,Total 0.5 mg/dl (0.2-1.0); Creatinine Clr Calc Pharmacy 35.4 ml/min; Est GFR (African American) 46.9 ml/min; Est GFR (Non-African American) 40.5 ml/min; Magnesium 1.7 mg/dl (1.7-2.4); Potassium 3.6 mmol/L (3.5-5.1); Total Protein 4.8 gm/dl (6.0-8.3)
[2023-07-23 15:55] LABS: INR 1.2 (0.9-1.1); Partial Thromboplastin Time 29 Seconds (21-31); Prothrombin Time 12.8 Seconds (9.0-12.0)
[2023-07-23 15:57] LABS: Troponin I High Sensitivity 21.7 pg/ml (0-14)
[2023-07-23] MEDS: ALBUT/IPRATROP 3MG/0.5MG NEB 3 ML VIAL NEB ONE (16:15)
[2023-07-23] MEDS: dexAMETHasone**PF** 10 MG/ML VIAL IV ONE (16:18)
[2023-07-23] MEDS: SODIUM CHLORIDE 0.9% 500 ML IV ONE (16:18)
[2023-07-23] MEDS: cefTRIAXone SODIUM 2,000 MG/50 ML BAG IV STA (16:19)
--- NOTE | 2023-07-23 16:23 | History & Physical Report ---
Date of Service July 23, 2023 Assessment & Plan (1) Sepsis: Plan: Suspected pulmonary source Lactate WNL and MAP > 65, also with congestive heart failure therefore 30ml/kg not given Vancomycin, Zosyn, Doxycycline Follow up blood, sputum, urine cultures Armstrong catheter placed on admission, likely can be removed in next 24-48 hours Stress dose steroids with hydrocortisone 100 mg IV now then 50 mg IV q.6 hourly (2) Pneumonia: Plan: Incentive spirometer, flutter valve (3) Paroxysmal atrial fibrillation: Plan: Currently in normal sinus rhythm Continue amiodarone for rhythm control Continue rivaroxaban for anticoagulation (4) Primary small cell malignant neoplasm of lung, stage 4: Plan: Last Cosentyx last Sunday (5) Depression: Plan: Continue sertraline and olanzapine (6) Polymyalgia rheumatica: Plan: Continue prednisone 10 mg daily (7) Chronic obstructive pulmonary disease: Plan: Continue [employer] or hospital formulary equivalent (8) GERD (gastroesophageal reflux disease): Plan: Switch omeprazole to pantoprazole per hospital formulary Plan VTE Prophylaxis - rivaroxaban Diet - clear liquid Disposition - admit to PCU Admission and Anticipated Discharge Date Admission Date: July 23, 2023 History of Present Illness Chief Complaint: Shortness of breath Primary Care Provider: Chandan Bro MD Carla Ward is a 77 year old female with metastatic cancer on immunotherapy (Cosentyx) who presents to the ER with shortness of breath. She notes 2 weeks shortness of breath but much worse in the last 2 days. Associated generalized weakness, fatigue, loss of appetite. No chest pain, constipation, diarrhea, abdominal pain, nausea, vomiting. She was admitted recently in May with similar symptoms and CXR and was diagnosed with pneumonia based on CT. She reports feeling much sicker on this occasion. Allergies Allergy/AdvReac Type Severity Reaction Status Date / Time castor oil Allergy Severe "TAXANES" Verified 06/22/23 08:19 CAUSE DYSPNEA, RASH, ELEVATED BP docetaxel [From Taxotere] Allergy Severe "TAXANES" Verified 06/22/23 08:19 CAUSE DYSPNEA, RASH, ELEVATED BP paclitaxel Allergy Severe "TAXANES" Verified 06/22/23 08:19 CAUSE DYSPNEA, RASH, ELEVATED BP trimethoprim [From Bactrim] Allergy Severe Anaphylaxis Verified 06/22/23 08:19 Iodinated Contrast Media Allergy Intermediate HIVES/ITCHI Verified 06/22/23 08:19 NG nitrofurantoin Allergy Intermediate CHEST Verified 06/22/23 08:19 PAIN, DYSPNEA Sulfa (Sulfonamide Allergy Intermediate HIVES, Verified 06/22/23 08:19 Antibiotics) ITCHINESS, SHORTNESS OF BREATH codeine AdvReac Intermediate COLD Verified 06/22/23 08:19 SWEAT, THINGS START SPINNING, NAUSEA phenazopyridine AdvReac Intermediate N/V Verified 06/22/23 08:19 Home Medications Medication Instructions Recorded Confirmed Type cholecalciferol (vitamin D3) 25 25 mcg PO DAILY 12/01/21 07/23/23 History mcg (1,000 unit) capsule nebulizers #1 ea 12/05/21 06/22/23 Rx calcium 600 mg-D3 800 unit-mag11 1 tab PO BID #60 tabs 04/27/22 07/23/23 Rx 50 fs-rptb-rfovub-beulah-s.borat tablet (Caltrate 600-D Plus Minerals) sennosides 8.6 mg tablet (Senokot) 8.6 mg PO DAILY PRN Constipation 06/01/22 07/23/23 History vibegron 75 mg tablet (Gemtesa) 75 mg PO DAILY #90 tabs 07/20/22 07/23/23 Rx mecobalamin (vitamin B12) 1,000 1,000 mcg sublingual DAILY 10/26/22 07/23/23 History mcg disintegrating tablet,sublingual docusate sodium 100 mg capsule 100 mg PO BID Constipation 01/03/23 07/23/23 History (Colace) polyethylene glycol 3350 17 17 g PO DAILY PRN Constipation 01/03/23 07/23/23 History gram/dose oral powder (Miralax) trazodone 50 mg tablet 100 mg PO HS 01/10/23 07/23/23 History ondansetron HCl 8 mg tablet 8 mg PO Q8H PRN Nausea 01/22/23 07/23/23 History oxycodone 5 mg tablet 0 mg PO Q8H PRN Pain 01/22/23 07/23/23 History lidocaine 5 % topical patch 0 patch transdermal Q24H PRN Other 02/28/23 07/23/23 History diazepam 2 mg tablet 2 mg PO BID PRN sedation #60 tabs 03/09/23 07/23/23 Rx amiodarone 200 mg tablet 200 mg PO DAILY #90 tabs 05/17/23 07/23/23 Rx furosemide 20 mg tablet 20 mg PO QAM PRN Other 05/19/23 07/23/23 History acetaminophen 500 mg tablet 1,000 mg PO .BID-TID 06/11/23 07/23/23 History (Tylenol Extra Strength) ipratropium 0.5 mg-albuterol 3 mg 3 ml inhalation BID wheezing 06/11/23 07/23/23 History (2.5 mg base)/3 mL nebulization soln ipratropium 0.5 mg-albuterol 3 mg 3 ml inhalation Q6 PRN Shortness 06/11/23 07/23/23 History (2.5 mg base)/3 mL nebulization Of Breath Or Wheezing soln melatonin 10 mg tablet 10 mg PO HS 06/11/23 07/23/23 History carbamide peroxide 6.5 % ear drops 4 drp OTL BID PRN ear wax #15 mL 06/16/23 07/23/23 Rx (Ear Wax Removal Kit) magnesium 30 mg tablet 30 mg PO DAILY 06/22/23 07/23/23 History folic acid 1 mg tablet 1 mg PO QPM #30 tabs 06/27/23 07/23/23 Rx olanzapine 5 mg tablet 5 mg PO QPM #30 tabs 06/27/23 07/23/23 Rx prednisone 10 mg tablet 10 mg PO DAILY #30 tabs 06/28/23 07/23/23 Rx sertraline 100 mg tablet 100 mg PO DAILY #90 tabs 07/09/23 07/23/23 Rx sertraline 25 mg tablet 25 mg PO HS #90 tabs 07/09/23 07/23/23 Rx budesonide 160 mcg-glycopyr 9 2 inh inhalation BID #10.7 grams 07/20/23 07/23/23 Rx mcg-formot 4.8 mcg/actuation HFA inhaler (Breztri Aerosphere) omeprazole 40 mg capsule,delayed 40 mg PO DAILY 07/23/23 07/23/23 History release rivaroxaban 20 mg tablet (Xarelto) 20 mg PO QDD 07/23/23 07/23/23 History Past Med/Surg History Medical History (Updated 07/23/23 @ 18:40 by Chandan Burton DO) Sepsis Pulmonary cachexia due to chronic obstructive pulmonary disease Weakness generalized Muscular deconditioning SIADH (syndrome of inappropriate ADH production) Stress-induced cardiomyopathy Anteroapical myocardial infarction Pulmonary embolism Carcinoma in situ of bladder Anxiety about health Anxiety associated with cancer diagnosis Depression Declining performance status Dyspnea and respiratory abnormalities Anemia Dysphagia Primary small cell malignant neoplasm of lung, stage 4 Acute kidney injury Hypomagnesemia Non-ST elevation [place] (NSTEMI) Acute UTI (urinary tract infection) Cardiomyopathy Paroxysmal atrial fibrillation Hyponatremia Breast cancer DVT (deep venous thrombosis) (10/2022) LFTs abnormal Pneumonia Liver lesion Excessive cerumen in both ear canals Anxiety Insomnia Urinary incontinence Chronic hypoxemic respiratory failure Chronic obstructive pulmonary disease Hypomagnesemia Anticoagulant long-term use UTI (urinary tract infection) Chronic respiratory failure with hypoxia Polymyalgia rheumatica Small cell lung cancer GERD (gastroesophageal reflux disease) Pancytopenia due to antineoplastic chemotherapy Ex-smoker Lower extremity edema Chronic dyspnea Small cell lung cancer Malignant neoplasm of lung Bronch with biopsy on 11/15/21 Hearing deficit cannot afford hearing aids Vertebral fracture LUMBAR AND THORACIC Osteoporosis Tremor RIGHT HAND Migraine HX Compression fracture of L1 vertebra (08/15/21) Chronic Endometrial thickening on ultrasound Ureteral tumor Port-A-Cath in place Liver abscess History of diverticulitis Hx of bladder cancer HAD BCG INSTILLATION - DX: 2012 History of liver disease 03/2019 K[facility]BER[facility] FOR LIVER ABSCESS- GIVEN ABXS X MONTHS- FOLLOWING WITH [facility] FOR MONITORING -RECENT CT SCAN 06/16/19- SHOWS ABSCESS TO BE DECREASED TO 3. 5CM (SURGEON IS AWARE) Asthma (04/25/12) Stable and controlled Diabetes mellitus, type 2 NIDDM- WELL CONTROLLED AND STABLE History of breast cancer RIGHT S/P LUMPECTOMY/CHEMO/RADATION (2009)- STABLE AT THIS TIME Left rib fracture (2016) Surgical History S/P ablation of atrial flutter History of bronchoscopy 11/15/21 Nausea and vomiting after administration of anesthetic agent H/O cystoscopy SEVERAL History of colonoscopy History of surgery LEFT CHEST PORT History of lumpectomy of right breast History of elbow surgery RIGHT History of arthroscopy B/L KNEE History of breast biopsy History of surgery TURBT X 2; TURBT, CYSTO, RIGHT RPG, STENT: 07/11/18: LMA#4 AT [facility] History of appendectomy History of cholecystectomy Family History Other Adopted Family history unknown Social History Smoking Status: Former smoker Tobacco Type: Cigarettes Cigarettes Per Day: Less than 1/2 PPD now;Smoked 50+yrs;; Second Hand Exposure: Yes; Do You Dip or Chew Tobacco: No; Hx Alcohol Use: No Hx Substance Use: No Preferred Language: Kosovan Communication Ability: Effective Communication Tools: Other Visual Impairment: No Limitations Hearing Ability: Hard of Hearing Micro Paleontologist Required: No Beliefs That Will Affect Care: None marital status: Single Current Living Situation: Other Current Living Situation Comment: roomate current occupational status: retired Other Information That Helps Us Care for You: No Feels Safe at Home: Yes Safety Concerns: Feels Safe At This Time Childhood Exposure to Second-Hand Smoke: Yes Diet: regular caffeine: No during the past year weight has: remained stable Dental Care, Regularly: Yes Physical Activity Frequency: 1-2 Times per Week Seatbelt Use: always Sunscreen Use: Yes Assistive Devices: Cane, Denture - Upper, Glasses, Oxygen - Continuous and Walker Review of Systems Review of Systems: All systems reviewed & are unremarkable except as noted in HPI & below Physical Exam Constitutional: WD/WN, vitals as above Eyes: + anicteric sclerae; normal pupil size ENMT: external ear and nose normal, oropharynx normal Neck: trachea midline, no thyromegaly Respiratory: normal respiratory effort; no respiratory distress Auscultation: + crackles (bibasal); breath sounds present, no diminished lung sounds and no wheezes Cardiovascular: Rate/Rhythm: regular rate and regular rhythm Heart Sounds: no murmur Vessels: no JVD Extremities: normal capillary refill and + pedal edema (trace b/l equal); no calf tenderness Gastrointestinal (Abdomen): normal bowel sounds, soft, nontender, no hepatosplenomegaly Musculoskeletal: no cyanosis or clubbing, extremities motor strength 5/5 Skin: no rashes, warm and dry Neurologic: moves all extremities and awake; not confused Psychiatric: A+Ox3, euthymic affect Results & Data Results & Data Vital Signs (Past 12 Hours) Vital Signs Temp Pulse Pulse Resp BP BP Pulse Ox 07/23/23 14:38 07/23/23 14:38 07/23/23 14:38 36.9 C 97 H 22 91/45 L 94 07/23/23 14:38 94 H 22 94 07/23/23 14:38 36.8 C 96 H 22 91/45 L 94 07/23/23 14:22 100 H O2 Del Method O2 Flow Rate 07/23/23 14:38 Nasal Cannula 4 07/23/23 14:38 Nasal Cannula 4 07/23/23 14:38 Nasal Cannula 4 07/23/23 14:38 Nasal Cannula 4 07/23/23 14:38 Nasal Cannula 4 07/23/23 14:22 Laboratory Results Abnormal lab results 07/23/23 07/23/23 Range/Units 15:04 Unknown WBC 23.89 H (4.8-10.8) K/ul RBC 2.77 L (4.20-5.40) M/uL Hgb 9.5 L (12.0-16.0) g/dl Hct 30.1 L (37.0-47.0) % MCV 108.7 H (80.0-100.0) fL MCH 34.3 H (25.0-34.0) pg MCHC 31.6 L (32.0-36.0) g/dL RDW Std Deviation 63.4 H (36.4-46.3) fL RDW Coeff of Atul 15.7 H (11.5-14.5) % Neut # (Auto) 21.32 H (1.40-6.50) K/uL Lymph # (Auto) 0.26 L (1.20-3.40) K/uL Hyde # (Auto) 2.00 H (0.11-0.59) K/uL PT 12.8 H (9.0-12.0) Seconds INR 1.2 H (0.9-1.1) VBG pCO2 62 H (38-50) mmHg Carbon Dioxide 33 H (21-32) mmol/L Creatinine 1.26 H (0.6-1.2) mg/dl Glucose 109 H (70-99(Fasting)) mg/dl Calcium 8.0 L (8.6-10.3) mg/dl Troponin I High Sens 21.7 H (0-14) pg/ml B-Natriuretic Peptide 314 H (0-100) pg/ml Total Protein 4.8 L (6.0-8.3) gm/dl Albumin 2.8 L (3.4-5.0) gm/dl Procalcitonin 23.60 H (0-0.5) ng/ml Diagnostic Findings XR chest 1V portable CLINICAL HISTORY: Sepsis. COMPARISON STUDY: Chest radiograph and chest CT June 11, 2023. PET/CT June 27, 2023. FINDINGS: Left subclavian Fviqnd-s-Waay is in place. There is no pneumothorax. Elevation of the left hemidiaphragm is unchanged. There is a small left pleural effusion. Right lower lung opacity favors atelectasis. No consolidation is identified to suggest pneumonia. Cardiomediastinal silhouette is stable. No radiographic evidence for pulmonary edema. IMPRESSION: 1. Small left pleural effusion. Stable elevation of the left hemidiaphragm. 2. No pneumothorax. Medications Administered ER Medications Given: Normal saline 500ml bolus DuoNeb 3 mL neb Ceftriaxone 2 g IV DuoNeb 12 mL neb Dexamethasone 10 mg IV ECG Rate (beats per minute): 118 Rhythm: sinus tachycardia Findings: + PAC, + RBBB (Incomplete) and + prolonged QT Comparison ECG Date: from (June 11, 2023) Change: no significant change Code Status & VTE Plan Code Status All treatment outside of the cardiac arrest including intubation No resuscitation in the event of cardiac arrest VTE Prophylaxis Plan VTE Prophylaxis will be ordered: Yes PG Care Time/CCT Total # of Minutes Spent Total Time Spent with Patient: Total time spent is greater than 50% in coordination of care (as documented) at patient's floor/unit and/or counseling patient: Coding Level of Care Code 48797 INT INP/OBS CARE 3/75MIN Diagnoses Sepsis A41.9 Pneumonia J18.9 Laterality: unspecified laterality Lung location: unspecified part of lung Pneumonia type: due to unspecified organism Paroxysmal atrial fibrillation I48.0 Primary small cell malignant neoplasm of lung, stage 4 C34.90 Persistent depressive disorder F34.1 Depression Type: persistent depressive disorder Polymyalgia rheumatica M35.3 Chronic obstructive pulmonary disease J44.9 GERD (gastroesophageal reflux disease) K21.9 (2) Pneumonia Laterality: unspecified laterality Lung location: unspecified part of lung Pneumonia type: due to unspecified organism Qualified Code(s): J18.9 - Pneumon ia, unspecified organism (5) Depression Depression Type: persistent depressive disorder Qualified Code(s): F34.1 - Dysthymic disorder
[2023-07-23] MEDS: PIPERACILLIN/TAZOBACTAM 4.5 GM/100 ML BAG IV STA (16:52)
[2023-07-23] MEDS: HYDROCORTISONE SOD SUCCINATE 100 MG/2 ML VIAL IV STA (16:53)
[2023-07-23 17:17] LABS: Adenovirus PCR Not Detected (NotDetected); Bordetella parapertussis PCR Not Detected (NotDetected); Bordetella pertussis PCR Not Detected (NotDetected); Chlamydia pneumoniae PCR Not Detected (NotDetected); Coronavirus 229E PCR Not Detected (NotDetected); Coronavirus CoV-2 (COVID19)PCR Not Detected (NotDetected); Coronavirus HKU1 PCR Not Detected (NotDetected); Coronavirus NL63 PCR Not Detected (NotDetected); Coronavirus OC43PCR Not Detected (NotDetected); Human Metapneumovirus PCR Not Detected (NotDetected); Influenza A PCR Not Detected (NotDetected); Influenza B PCR Not Detected (NotDetected); Mycoplasma pneumoniae PCR Not Detected (NotDetected); Parainfluenza Virus 1 PCR Not Detected (NotDetected); Parainfluenza Virus 2 PCR Not Detected (NotDetected); Parainfluenza Virus 3 PCR Not Detected (NotDetected); Parainfluenza Virus 4 PCR Not Detected (NotDetected); Respiratory Syncytial VirusPCR Not Detected (NotDetected); Rhinovirus/Enterovirus PCR Not Detected (NotDetected)
[2023-07-23] MEDS: AZITHROMYCIN 500 MG in DEXTROSE 5% 250 ML IV ONE (17:25)
[2023-07-23] MEDS ORDERED: VANCOMYCIN CONSULT ACTIVE PRN (17:30)
[2023-07-23 17:47] LABS: Appearance Urine Cloudy (Clear); Bacteria Urine Automated Negative (Negative); Bilirubin Urine Negative (Negative); Blood Urine 1+ (Negative); Color Urine Yellow; Epithelial Cell Urine Auto >30 /lpf (0-5); Glucose Urine UA Negative (Negative); Ketones Urine Negative (Negative); Leukocyte Esterase Urine 1+ (Negative); Nitrite Urine Negative (Negative); Protein Urine 3+ (Negative); Specific Gravity Urine 1.015 (1.000-1.030); Urobilinogen Urine Negative (Negative); WBC Urine Automated >30 /hpf (0-5); pH Urine 6.5 (4.5-7.5)
[2023-07-23] MEDS ORDERED: STAT IV Infusion **Titration per Protocol STA (17:51)
[2023-07-23] MEDS ORDERED: 0.2 MICRON FILTER SET 1 EACH IV STA (17:51)
[2023-07-23] MEDS ORDERED: AMIODARONE IV BOLUS & DRIP IV STA (17:51)
[2023-07-23] MEDS ORDERED: AMIODARONE / D5W 360 MG/200 ML BAG IV ONE (18:01)
[2023-07-23] MEDS: PLASMA-LYTE A 500 ML IV ONE ×2 (18:10→21:02)
[2023-07-23] MEDS ORDERED: ONDANSETRON INJ 2 MG/ML 2 ML VIAL IV PRN (19:39)
[2023-07-23] MEDS ORDERED: POLYETHYLENE (MIRALAX) 17 GM PACK PO PRN (19:39)
[2023-07-23] MEDS ORDERED: ACETAMINOPHEN 325 MG TAB PO PRN (19:39)
[2023-07-23] MEDS: AMIODARONE / D5W 150 MG/100 ML BAG IV STA (20:08)
[2023-07-23] MEDS: VANCOMYCIN HCL 1,750 MG in SODIUM CHLORIDE 0.9% 500 ML IV ONE (20:09)
[2023-07-23] MEDS: ALBUT/IPRATROP 3MG/0.5MG NEB 3 ML VIAL NEB SCH (20:20)
[2023-07-23] MEDS: MAGNESIUM SULFATE / D5W 1 GM/100 ML BAG IV STA (20:30)
[2023-07-23] MEDS: CALCIUM 600MG + VIT D 400 IU TAB PO SCH (20:38)
[2023-07-23] MEDS: ACETAMINOPHEN 500 MG TAB PO SCH (20:38)
[2023-07-23] MEDS: OLANZapine 5 MG TABLET PO SCH (20:38)
[2023-07-23] MEDS: FOLIC ACID 1 MG TAB PO SCH (20:38)
[2023-07-23] MEDS: MELATONIN 3 MG TAB PO SCH (20:39)
[2023-07-23] MEDS: SERTRALINE HCL 50 MG TABLET PO SCH (21:14)
[2023-07-23] MEDS: SERTRALINE HCL 100 MG TABLET PO SCH (21:14)
[2023-07-23] MEDS: RIVAROXABAN 15 MG TAB PO SCH (21:14)
[2023-07-23] MEDS: POTASSIUM CHLORIDE CRTAB 20 MEQ TABCR PO STA (21:14)
[2023-07-23] MEDS: DOCUSATE SODIUM 100 MG CAP PO SCH (21:15)
[2023-07-23] MEDS: AMIODARONE 200 MG TAB PO SCH (21:15)
[2023-07-23] MEDS: traZODone HCL 100 MG TAB PO SCH (21:15)
[2023-07-23] MEDS: DOXYCYCLINE HYCLATE 100 MG in DEXTROSE 5% MINI-B 100 ML IV SCH (21:30)
[2023-07-23] MEDS ORDERED: AMIODARONE / D5W 360 MG/200 ML BAG IV SCH (23:45)
[2023-07-23] MEDS: PIPERACILLIN/TAZOBACTAM 4.5 GM in DEXTROSE 5% MINI-B 100 ML IV SCH (23:49)
[2023-07-23] MEDS: HYDROCORTISONE SOD 50 MG in SYRINGE 0 ML IV SCH (23:50)
[2023-07-24] MEDS ORDERED: HYDROCORTISONE SOD SUCCINATE 100 MG/2 ML VIAL IV SCH
[2023-07-24 07:42] LABS: Hematocrit (blood only) 26.8 % (37.0-47.0); Hemoglobin 8.2 g/dl (12.0-16.0); Mean Corpuscular Hemoglobin 33.2 pg (25.0-34.0); Mean Corpuscular Hgb Conc 30.6 g/dL (32.0-36.0); Mean Corpuscular Volume 108.5 fL (80.0-100.0); Mean Platelet Volume 9.3 fL (9.4-12.4); Platelet Count 102 K/uL (130-400); RDW Coefficient of Variation 15.9 % (11.5-14.5); RDW Standard Deviation 64.5 fL (36.4-46.3); Red Blood Count 2.47 M/uL (4.20-5.40); White Blood Count 16.68 K/ul (4.8-10.8)
[2023-07-24 07:59] LABS: Basophils # (auto) 0.01 K/uL (0.00-0.20); Basophils % (auto) 0.1 %; Immature Granulocytes # (auto) 0.15 K/uL (0.01-0.20); Immature Granulocytes % (auto) 0.9 %; Lymphocytes # (auto) 0.27 K/uL (1.20-3.40); Lymphocytes % (auto) 1.6 %; Monocytes # (auto) 0.54 K/uL (0.11-0.59); Monocytes % (auto) 3.2 %; Neutrophils # (auto) 15.71 K/uL (1.40-6.50); Neutrophils % (auto) 94.2 %; Polychromasia 1+
[2023-07-24 08:13] LABS: Albumin Globulin Ratio 1.4 (0.9-2); Albumin Level 2.7 gm/dl (3.4-5.0); BUN Creatinine Ratio 16.8 (10-20); Bilirubin,Total 0.4 mg/dl (0.2-1.0); Calcium 7.5 mg/dl (8.6-10.3); Creatinine Clr Calc Pharmacy 35.9 ml/min; Est GFR (African American) 47.4 ml/min; Est GFR (Non-African American) 40.9 ml/min; Potassium 4.6 mmol/L (3.5-5.1); Total Protein 4.7 gm/dl (6.0-8.3)
[2023-07-24] MEDS: FLUTICASONE FUROATE 200MCG 14 PUFFS/INHALER INH SCH (08:26)
[2023-07-24] MEDS: UMECLIDINIUM BROMIDE 62.5MCG/BLISTER 7 PUFFS/INHALER INH SCH (08:26)
[2023-07-24] MEDS: VIBEGRON 75 MG TAB PO SCH (08:27)
[2023-07-24] MEDS: predniSONE 10 MG TABLET PO SCH (08:27)
[2023-07-24] MEDS: CHOLECALCIFEROL 25 MCG (1000 UNITS) TAB PO SCH (08:27)
[2023-07-24] MEDS: PANTOprazole 40 MG TAB PO SCH (08:27)
[2023-07-24] MEDS ORDERED: NON-FORMULARY MEDICATION (Magnesium 30 mg Tablet) PO SCH (09:00)
[2023-07-24] MEDS ORDERED: SERTRALINE HCL 100 MG TABLET PO SCH ×2 (09:00→21:00)
--- NOTE | 2023-07-24 12:51 | Electrocardiogram Report ---
Test Reason : Blood Pressure : / mmHG Vent. Rate : 131 BPM Atrial Rate : 000 BPM P-R Int : 000 ms QRS Dur : 114 ms QT Int : 312 ms P-R-T Axes : 000 -71 075 degrees QTc Int : 460 ms Atrial fibrillation with rapid ventricular response Incomplete right bundle branch block Left anterior fascicular block Minimal voltage criteria for LVH, may be normal variant Nonspecific ST abnormality Abnormal ECG When compared with ECG of 23-JUL-2023 14:06, Atrial fibrillation has replaced Sinus rhythm Confirmed by Chandan Arrieta ([id number]) on 07/24/2023 12:51:06 PM Referred By: REFERRED SELF Confirmed By:Chandan Arrieta
--- NOTE | 2023-07-24 14:14 | Hospitalist Progress Note ---
Date of Service July 24, 2023 Assessment & Plan (1) Sepsis: Plan: Suspected pulmonary source, chest x-ray with opacity in the right lower lung field and small pleural effusion consistent with pneumonia Viral respiratory BioFire PCR negative, UA appears contaminated with epithelial cells, urine culture pending Presented with leukocytosis of 23, elevated procalcitonin at 23, and worsening shortness of breath Lactate WNL and initially with MAP > 65, also with congestive heart failure therefore 30ml/kg not given-was later given IV fluids 1 became hypotensive from relative adrenal insufficiency and rapid atrial fibrillation Initially started on vancomycin, Zosyn, Doxycycline, but discontinue vancomycin as MRSA swab negative Follow up blood, sputum, urine cultures-no growth to date Armstrong catheter placed on admission, continue for now Continue stress dose steroids with hydrocortisone 50 mg IV q.6 hourly-blood pressures are improved (2) Chronic obstructive pulmonary disease: Plan: Acute and chronic respiratory failure with hypoxia Hx COPD on chronic O2 at 2L presents with respiratory rate 22-34, pulse ox 86%, increased SOB, and requiring increased O2 to 4L, Duoneb tx-now improving back to 3 L nasal cannula With sepsis, pneumonia-treated with antibiotics Continue [employer] or [facility] formulary equivalent (3) (HFpEF) heart failure with preserved ejection fraction: Plan: With evidence of volume overload with significant peripheral edema, some small bilateral pleural effusions on chest x-ray With hypotension on admission due to adrenal insufficiency treated with 3 L total of isotonic fluid boluses and stress dose steroids Blood pressures are now improved and edema and volume overload worsening-give Lasix 20 Mg IV x 1 now and reassess for further diuretics tomorrow Maintain Armstrong catheter for now I's and O's, daily weights (4) Pneumonia: Plan: As above Incentive spirometer, flutter valve Follow chest imaging in 4 weeks (5) Paroxysmal atrial fibrillation: Plan: Initially in normal sinus rhythm, but then had rapid atrial fibrillation for a little over an hour in the evening of 07/22 which caused hypotension, rates in the 130s, spontaneously converted back to sinus rhythm after receiving IV fluids and stress dose steroids Continue amiodarone for rhythm control Continue rivaroxaban for anticoagulation-renally dosed at 15 mg daily (was recently converted to Xarelto from Coumadin) Follow on telemetry (6) JAMIL (acute kidney injury): Plan: *Acute kidney failure Creatinine elevated at 1.25 Could be secondary to ATN from hypotension, sepsis Blood pressures are improved, okay to give Lasix for volume overload Follow BMP (7) Primary small cell malignant neoplasm of lung, stage 4: Plan: Last x last Sunday [facility] (8) Anemia: Plan: Hemoglobin low but around baseline at 8.2, macrocytic, longstanding, previously required IV iron infusions B12 and folate were normal 1 month ago, TSH normal 1 week ago Check iron studies in the morning Likely anemia of chronic disease Continue folic acid and B12 supplements (9) Chronic constipation: Plan: Add on Senokot 17.2 mg p.o. at bedtime (10) Thrombocytopenia: Plan: Mildly low but stable from previous at 102 B12 and folate normal, possibly from chemotherapy? Follow CBC (11) GERD (gastroesophageal reflux disease): Plan: Continue PPI (12) Polymyalgia rheumatica: Plan: Continue prednisone 10 mg daily along with stress dose steroids (13) Depression: Plan: Continue sertraline and olanzapine Plan VTE Prophylaxis - rivaroxaban Disposition -continued stay on PCU Admission and Anticipated Discharge Date Admission Date: July 23, 2023 Subjective Patient feeling better today, less short of breath, is weaned to 3 L nasal cannula. Coughing up some clear sputum. She and her daughter also concerned about her increased leg swelling. She is requesting Senokot for constipation as she has not moved her bowels in 2 days Telemetry with 1 hour of atrial fibrillation with rates in the 110s to 140s yesterday evening and then converted to sinus rhythm, remains in sinus rhythm with normal rates Physical Exam Constitutional: WD/WN, vitals as above Respiratory: normal respiratory effort; no cough Auscultation: + diminished lung sounds (Throughout) and + crackles (Right base); no rhonchi and no wheezes Cardiovascular: Rate/Rhythm: regular rate and regular rhythm Heart Sounds: no murmur Extremities: + edema (3+ pitting edema of legs bilaterally to the knees/thighs) Gastrointestinal (Abdomen): normal bowel sounds, soft, nontender, no hepatosplenomegaly Skin: no rashes, warm and dry Psychiatric: A+Ox3, euthymic affect Genitourinary: Armstrong catheter in place draining clear yellow urine Results & Data Results & Data Vital Signs (Past 12 Hours) Vital Signs Temp Pulse Pulse Resp BP Pulse Ox O2 Del Method 07/24/23 11:18 36.8 C 82 18 105/58 L 92 Nasal Cannula 07/24/23 11:04 78 17 93 Nasal Cannula 07/24/23 10:14 Nasal Cannula 07/24/23 10:14 66 07/24/23 07:42 36.3 C L 74 18 114/61 93 Room Air 07/24/23 07:00 73 18 92 Nasal Cannula 07/24/23 03:20 36.5 C 71 18 136/76 93 Nasal Cannula O2 Flow Rate 07/24/23 11:18 3 07/24/23 11:04 3 07/24/23 10:14 2 07/24/23 10:14 07/24/23 07:42 07/24/23 07:00 3 07/24/23 03:20 2 Laboratory Results CBC, BMP, troponin, LFTs reviewed Blood cultures and urine culture reviewed PG Care Time/CCT Total # of Minutes Spent Total Time Spent with Patient: Total time spent is greater than 50% in coordination of care (as documented) at patient's floor/unit and/or counseling patient: Coding Level of Care Code 14011 SUB INP/OBS CARE 3/50MIN Diagnoses Sepsis A41.9 Chronic obstructive pulmonary disease J44.9 (HFpEF) heart failure with preserved ejection fraction I50.30 Pneumonia J18.9 Laterality: unspecified laterality Lung location: unspecified part of lung Pneumonia type: due to unspecified organism Paroxysmal atrial fibrillation I48.0 JAMIL (acute kidney injury) N17.9 Primary small cell malignant neoplasm of lung, stage 4 C34.90 Anemia D64.9 Anemia type: unspecified type Chronic constipation K59.09 Thrombocytopenia D69.6 GERD (gastroesophageal reflux disease) K21.9 Polymyalgia rheumatica M35.3 Persistent depressive disorder F34.1 Depression Type: persistent depressive disorder (4) Pneumonia Laterality: unspecified laterality Lung location: unspecified part of lung Pneumonia type: due to unspecified organism Qualified Code(s): J18.9 - Pneumonia, unspecified organism (8) Anemia Anemia type: unspecified type Qualified Code(s): D64.9 - Anemia, unspecified (13) Depression Depression Type: persistent depressive disorder Qualified Code(s): F34.1 - Dysthymic disorder
[2023-07-24] MEDS: FUROSEMIDE INJ 20 MG/2 ML VIAL IV ONE (17:21)
[2023-07-24] MEDS ORDERED: VANCOMYCIN HCL 1,000 MG in SODIUM CHLORIDE 0.9% 250 ML IV SCH (20:00)
[2023-07-24] MEDS: SENNA 8.6 MG TAB PO SCH (21:10)
[2023-07-25 06:49] LABS: Hematocrit (blood only) 26.6 % (37.0-47.0); Hemoglobin 8.3 g/dl (12.0-16.0); Mean Corpuscular Hemoglobin 33.3 pg (25.0-34.0); Mean Corpuscular Hgb Conc 31.2 g/dL (32.0-36.0); Mean Corpuscular Volume 106.8 fL (80.0-100.0); Mean Platelet Volume 9.7 fL (9.4-12.4); Platelet Count 118 K/uL (130-400); RDW Coefficient of Variation 15.6 % (11.5-14.5); RDW Standard Deviation 61.1 fL (36.4-46.3); Red Blood Count 2.49 M/uL (4.20-5.40)
[2023-07-25 07:18] LABS: C Reactive Protein 14.98 mg/dl (0-0.5); Calcium 8.3 mg/dl (8.6-10.3); Creatinine Clr Calc Pharmacy 39.1 ml/min; Est GFR (African American) 52.4 ml/min; Est GFR (Non-African American) 45.2 ml/min; Potassium 3.9 mmol/L (3.5-5.1)
[2023-07-25 07:30] LABS: Basophils # (auto) 0.02 K/uL (0.00-0.20); Basophils % (auto) 0.1 %; Immature Granulocytes # (auto) 0.21 K/uL (0.01-0.20); Immature Granulocytes % (auto) 1.4 %; Lymphocytes # (auto) 0.16 K/uL (1.20-3.40); Lymphocytes % (auto) 1.1 %; Monocytes # (auto) 0.77 K/uL (0.11-0.59); Monocytes % (auto) 5.1 %; Neutrophils # (auto) 14.04 K/uL (1.40-6.50); Neutrophils % (auto) 92.3 %
[2023-07-25 07:37] LABS: Ferritin 499.6 ng/ml (8-388)
[2023-07-25] MEDS: FUROSEMIDE INJ 20 MG/2 ML VIAL IV ONE ×2 (09:39→17:55)
[2023-07-25] MEDS: LOPERAMIDE HCL 2 MG CAP PO PRN (12:27)
--- NOTE | 2023-07-25 17:18 | Hospitalist Progress Note ---
Date of Service July 25, 2023 Assessment & Plan (1) Sepsis: Plan: Suspected pulmonary source, chest x-ray with opacity in the right lower lung field and small pleural effusion consistent with pneumonia Viral respiratory BioFire PCR negative, UA appears contaminated with epithelial cells, urine culture negative Presented with leukocytosis of 23, elevated procalcitonin at 23, and worsening shortness of breath Lactate WNL and initially with MAP > 65, also with congestive heart failure therefore 30ml/kg not given-was later given IV fluids after she became hypotensive from relative adrenal insufficiency and rapid atrial fibrillation Initially started on vancomycin, Zosyn, Doxycycline, but discontinued vancomycin as MRSA swab negative CRP remains elevated at 14, blood cultures remain no growth to date, leukocytosis continues to improve, remains afebrile Follow up blood, sputum cultures-no growth to date Armstrong catheter placed on admission, continue for now Continue stress dose steroids but decrease hydrocortisone to 50 mg IV q12 hours as blood pressures improved (2) Chronic obstructive pulmonary disease: Plan: Acute and chronic respiratory failure with hypoxia Hx COPD on chronic O2 at 2L presents with respiratory rate 22-34, pulse ox 86%, increased SOB, and requiring increased O2 to 4L, Duoneb tx-now improving back to 3 L nasal cannula With sepsis, pneumonia-treated with antibiotics Continue dscovered or hospital formulary equivalent (3) (HFpEF) heart failure with preserved ejection fraction: Plan: With acute on chronic HFpEF with evidence of volume overload with significant peripheral edema, some small bilateral pleural effusions on chest x-ray With hypotension on admission due to adrenal insufficiency treated with 3 L total of isotonic fluid boluses and stress dose steroids Blood pressures are now improved and remains with peripheral edema-improved with Lasix 20 Mg IV -will give another 2 doses today twice daily Maintain Armstrong catheter for now I's and O's, daily weights Monitor BMP, magnesium, replace electrolytes as needed Fluid restrict to 1800 mL/day, low-sodium diet (4) Pneumonia: Plan: As above Incentive spirometer, flutter valve Follow chest imaging in 4 weeks (5) Paroxysmal atrial fibrillation: Plan: Initially in normal sinus rhythm, but then had rapid atrial fibrillation for a l ittle over an hour in the evening of 07/22 which caused hypotension, rates in the 130s, spontaneously converted back to sinus rhythm after receiving IV fluids and stress dose steroids Back in and out of rapid atrial fibrillation 07/24-give IV Lopressor as needed At 1 point she was on Toprol-XL 50 mg daily-I cannot figure out when or why this was discontinued in the last couple of months on record review Continue amiodarone for rhythm control Continue rivaroxaban for anticoagulation-renally dosed at 15 mg daily (was recently converted to Xarelto from Coumadin) Follow on telemetry Consider resuming metoprolol and consulting cardiology (6) JAMIL (acute kidney injury): Plan: *Acute kidney failure Creatinine elevated at 1.25 on admission and now improved with diuretics to 1.1 Could be secondary to ATN from hypotension, sepsis Blood pressures are improved, okay to give Lasix for volume overload Follow BMP (7) Primary small cell malignant neoplasm of lung, stage 4: Plan: Last x last Sunday [facility] ([facility]) Anemia: Plan: Hemoglobin low but around baseline at 8.3, macrocytic, longstanding, previously required IV iron infusions B12 and folate were normal 1 month ago, TSH normal 1 week ago iron studies here are normal Likely anemia of chronic disease Continue folic acid and B12 supplements (9) Chronic constipation: Plan: Gave Senokot 17.2 mg p.o. at bedtime and now with loose stools She is requesting Imodium as needed (10) Thrombocytopenia: Plan: Mildly low but improved from previous at 118 B12 and folate normal, possibly from chemotherapy? Follow CBC (11) GERD (gastroesophageal reflux disease): Plan: Continue PPI (12) Polymyalgia rheumatica: Plan: Continue prednisone 10 mg daily along with stress dose steroids (13) Depression: Plan: Continue sertraline and olanzapine Plan VTE Prophylaxis - rivaroxaban Disposition -continued stay on PCU Admission and Anticipated Discharge Date Admission Date: July 23, 2023 Subjective Patient upset about fluid restriction and says that she has to drink a lot of water to get her pills and food down. She also had some rapid atrial fibrillation today which improved with metoprolol She is having loose stools now after getting Senokot and requesting Imodium. Physical Exam Constitutional: WD/WN, vitals as above Respiratory: normal respiratory effort; no cough Auscultation: + diminished lung sounds (Throughout) and + crackles (Right base); no rhonchi and no wheezes Cardiovascular: Rate/Rhythm: + tachycardic and + irregularly irregular Heart Sounds: no murmur Extremities: + edema (2+ pitting edema of legs bila terally to the knees/thighs) Gastrointestinal (Abdomen): normal bowel sounds, soft, nontender, no hepatosplenomegaly Skin: no rashes, warm and dry Psychiatric: A+Ox3, euthymic affect Results & Data Results & Data Vital Signs (Past 12 Hours) Vital Signs Temp Pulse Pulse Resp BP Pulse Ox O2 Del Method 07/25/23 15:51 80 07/25/23 15:40 36.9 C 93 H 22 137/73 97 Nasal Cannula 07/25/23 14:49 77 17 94 Nasal Cannula 07/25/23 11:23 36.4 C L 93 H 17 132/69 94 Nasal Cannula 07/25/23 11:03 79 17 93 Nasal Cannula 07/25/23 08:15 Nasal Cannula 07/25/23 07:41 36.5 C 79 17 128/65 92 Nasal Cannula 07/25/23 07:13 81 07/25/23 06:56 78 17 92 Nasal Cannula O2 Flow Rate 07/25/23 15:51 07/25/23 15:40 3 07/25/23 14:49 3 07/25/23 11:23 3 07/25/23 11:03 3 07/25/23 08:15 3 07/25/23 07:41 3 07/25/23 07:13 07/25/23 06:56 3 Laboratory Results CBC, BMP, iron studies, CRP, blood cultures reviewed PG Care Time/CCT Total # of Minutes Spent Total Time Spent with Patient: Total time spent is greater than 50% in coordination of care (as documented) at patient's floor/unit and/or counseling patient: Coding Level of Care Code 13864 SUB INP/OBS CARE 3/50MIN Diagnoses Sepsis A41.9 Chronic obstructive pulmonary disease J44.9 (HFpEF) heart failure with preserved ejection fraction I50.30 Pneumonia J18.9 Laterality: unspecified laterality Lung location: unspecified part of lung Pneumonia type: due to unspecified organism Paroxysmal atrial fibrillation I48.0 JAMIL (acute kidney injury) N17.9 Primary small cell malignant neoplasm of lung, stage 4 C34.90 Anemia D64.9 Anemia type: unspecified type Chronic constipation K59.09 Thrombocytopenia D69.6 GERD (gastroesophageal reflux disease) K21.9 Polymyalgia rheumatica M35.3 Persistent depressive disorder F34.1 Depression Type: persistent depressive disorder (4) Pneumonia Laterality: unspecified laterality Lung location: unspecified part of lung Pneumonia type: due to unspecified organism Qualified Code(s): J18.9 - Pneumonia, unspecified organism (8) Anemia Anemia type: unspecified type Qualified Code(s): D64.9 - Anemia, unspecified (13) Depression Depression Type: persistent depressive disorder Qualified Code(s): F34.1 - Dysthymic disorder
[2023-07-25] MEDS: METOPROLOL TARTRATE 1 MG/ML VIAL IV STA (19:16)
[2023-07-26 07:33] LABS: Basophils # (auto) 0.01 K/uL (0.00-0.20); Basophils % (auto) 0.1 %; Eosinophils # (auto) 0.01 K/uL (0.00-0.50); Eosinophils % (auto) 0.1 %; Hemoglobin 8.6 g/dl (12.0-16.0); Immature Granulocytes % (auto) 0.9 %; Lymphocytes # (auto) 0.34 K/uL (1.20-3.40); Lymphocytes % (auto) 3.1 %; Mean Corpuscular Hemoglobin 33.5 pg (25.0-34.0); Mean Corpuscular Hgb Conc 30.7 g/dL (32.0-36.0); Mean Corpuscular Volume 108.9 fL (80.0-100.0); Mean Platelet Volume 9.4 fL (9.4-12.4); Monocytes % (auto) 6.5 %; Neutrophils # (auto) 9.68 K/uL (1.40-6.50); Neutrophils % (auto) 89.3 %; Platelet Count 123 K/uL (130-400); RDW Coefficient of Variation 16.2 % (11.5-14.5); RDW Standard Deviation 65.1 fL (36.4-46.3); Red Blood Count 2.57 M/uL (4.20-5.40); White Blood Count 10.84 K/ul (4.8-10.8)
[2023-07-26 08:01] LABS: BUN Creatinine Ratio 18.6 (10-20); Calcium 8.2 mg/dl (8.6-10.3); Creatinine Clr Calc Pharmacy 37.6 ml/min; Est GFR (African American) 50.8 ml/min; Est GFR (Non-African American) 43.8 ml/min; Magnesium 1.7 mg/dl (1.7-2.4); Potassium 3.2 mmol/L (3.5-5.1)
[2023-07-26] MEDS ORDERED: Nursing to Pharmacy Communication SCH (08:15)
[2023-07-26] MEDS: METOPROLOL TARTRATE 1 MG/ML VIAL IV STA (09:20)
[2023-07-26] MEDS: HYDROCORTISONE SOD 50 MG in SYRINGE 0 ML IV SCH (09:29)
[2023-07-26] MEDS: POTASSIUM CHLORIDE CRTAB 20 MEQ TABCR PO STA ×2 (09:30→17:58)
[2023-07-26] MEDS: DOXYCYCLINE HYCLATE 100 MG CAP PO SCH (10:27)
[2023-07-26] MEDS: MAGNESIUM SULFATE / D5W 1 GM/100 ML BAG IV SCH (10:29)
--- NOTE | 2023-07-26 11:09 | Cardiology Consultation ---
Date of Consultation July 26, 2023 Assessment & Plan (1) Paroxysmal atrial fibrillation: - is having some increased SOB, but suspect this is currently more likely related to her COPD exac/acute on chronic respiratory failure more than the a fib - continue amiodarone at 200 mg home dosing, would not increase due to potential pulm toxicity in this setting - recommend sending off amiodarone levels - for rate control, could do metoprolol tartrate 5 mg IV q2h prn for HR >110 - continue home Xarelto (2) (HFpEF) heart failure with preserved ejection fraction: - last echo was Feb 2023 - no need to repeat the echo at this time unless pt develops decompensated CHF Supervising Physician Co-Signing Physician Notes Patient seen and examined. Agree with Dr. Lopes's assessment and plan. Increased episodes of AFib likely related to her sepsis and pulmonary status. Would send of amiodarone drug levels. Increased frequency of intravenous metoprolol tartrate was reviewed for rapid ventricular response to atrial fibrillation. Dr. Dupree is aware of her hospitalization. History of Present Illness Reason for Consultation: Rapid atrial fibrillation Requesting Physician: Dr. Shauna Bailon Attending Physician: Shauna Bailon MD History of Present Illness Pt is a 77 yo female with a past med hx of paroxysmal afib, hx atrial flutter s/p ablation January 2022, HFpEF last echo Feb 2023, HTN, COPD on 2 L O2 at home baseline, GERD, DMT2, small-cell lung cancer stage 4 with mets to liver, and chronic anemia who presents to the hospital on 07/22 for acute on chronic hypoxi c respiratory failure, RLL pneumonia, and sepsis, consulted for rapid atrial fibrillation. Pt states that today she is feeling okay. She states that she does not notice her rhythm slip into a fib a lot of the time but sometimes feels some increased shortness of breath when she thinks she converts into atrial fibrillation. She states that she also has been having some bilateral anterior chest pain the last few days that she states she feels is from her lungs, which is worse with deep breaths. This has been improving daily. Otherwise, no other questions or complaints right now, feels a bit more short of breath compared to baseline. No hx LA/CVA. She is adopted so unsure of any cardiac hx of either biologic parent. Telemetry reports spontaneous conversion in and out of a fib the last 24 hours at least with max rates being in the 130-140s. Allergies Allergy/AdvReac Type Severity Reaction Status Date / Time castor oil Allergy Severe "TAXANES" Verified 06/22/23 08:19 CAUSE DYSPNEA, RASH, ELEVATED BP docetaxel [From Taxotere] Allergy Severe "TAXANES" Verified 06/22/23 08:19 CAUSE DYSPNEA, RASH, ELEVATED BP paclitaxel Allergy Severe "TAXANES" Verified 06/22/23 08:19 CAUSE DYSPNEA, RASH, ELEVATED BP trimethoprim [From Bactrim] Allergy Severe Anaphylaxis Verified 06/22/23 08:19 Iodinated Contrast Media Allergy Intermediate HIVES/ITCHI Verified 06/22/23 08:19 NG nitrofurantoin Allergy Intermediate CHEST Verified 06/22/23 08:19 PAIN, DYSPNEA Sulfa (Sulfonamide Allergy Intermediate HIVES, Verified 06/22/23 08:19 Antibiotics) ITCHINESS, SHORTNESS OF BREATH codeine AdvReac Intermediate COLD Verified 06/22/23 08:19 SWEAT, THINGS START SPINNING, NAUSEA phenazopyridine AdvReac Intermediate N/V Verified 06/22/23 08:19 Home Medications Medication Instructions Recorded Confirmed Type cholecalciferol (vitamin D3) 25 25 mcg PO DAILY 12/01/21 07/23/23 History mcg (1,000 unit) capsule nebulizers #1 ea 12/05/21 06/22/23 Rx calcium 600 mg-D3 800 unit-mag11 1 tab PO BID #60 tabs 04/27/22 07/23/23 Rx 50 gd-udce-ehqsdq-beulah-s.borat tablet (Caltrate 600-D Plus Minerals) sennosides 8.6 mg tablet (Senokot) 8.6 mg PO DAILY PRN Constipation 06/01/22 07/23/23 History vibegron 75 mg tablet (Gemtesa) 75 mg PO DAILY #90 tabs 07/20/22 07/23/23 Rx mecobalamin (vitamin B12) 1,000 1,000 mcg sublingual DAILY 10/26/22 07/23/23 History mcg disintegrating tablet,sublingual docusate sodium 100 mg capsule 100 mg PO BID Constipation 01/03/23 07/23/23 History (Colace) polyethylene glycol 3350 17 17 g PO DAILY PRN Constipation 01/03/23 07/23/23 History gram/dose oral powder (Miralax) trazodone 50 mg tablet 100 mg PO HS 01/10/23 07/23/23 History ondansetron HCl 8 mg tablet 8 mg PO Q8H PRN Nausea 01/22/23 07/23/23 History oxycodone 5 mg tablet 0 mg PO Q8H PRN Pain 01/22/23 07/23/23 History lidocaine 5 % topical patch 0 patch transdermal Q24H PRN Other 02/28/23 07/23/23 History diazepam 2 mg tablet 2 mg PO BID PRN sedation #60 tabs 03/09/23 07/23/23 Rx amiodarone 200 mg tablet 200 mg PO DAILY #90 tabs 05/17/23 07/23/23 Rx furosemide 20 mg tablet 20 mg PO QAM PRN Other 05/19/23 07/23/23 History acetaminophen 500 mg tablet 1,000 mg PO .BID-TID 06/11/23 07/23/23 History (Tylenol Extra Strength) ipratropium 0.5 mg-albuterol 3 mg 3 ml inhalation BID wheezing 06/11/23 07/23/23 History (2.5 mg base)/3 mL nebulization soln ipratropium 0.5 mg-albuterol 3 mg 3 ml inhalation Q6 PRN Shortness 06/11/23 07/23/23 History (2.5 mg base)/3 mL nebulization Of Breath Or Wheezing soln melatonin 10 mg tablet 10 mg PO HS 06/11/23 07/23/23 History carbamide peroxide 6.5 % ear drops 4 drp OTL BID PRN ear wax #15 mL 06/16/23 07/23/23 Rx (Ear Wax Removal Kit) magnesium 30 mg tablet 30 mg PO DAILY 06/22/23 07/23/23 History folic acid 1 mg tablet 1 mg PO QPM #30 tabs 06/27/23 07/23/23 Rx olanzapine 5 mg tablet 5 mg PO QPM #30 tabs 06/27/23 07/23/23 Rx prednisone 10 mg tablet 10 mg PO DAILY #30 tabs 06/28/23 07/23/23 Rx sertraline 100 mg tablet 100 mg PO DAILY #90 tabs 07/09/23 07/23/23 Rx sertraline 25 mg tablet 25 mg PO HS #90 tabs 07/09/23 07/23/23 Rx budesonide 160 mcg-glycopyr 9 2 inh inhalation BID #10.7 grams 07/20/23 07/23/23 Rx mcg-formot 4.8 mcg/actuation HFA inhaler (Breztri Aerosphere) omeprazole 40 mg capsule,delayed 40 mg PO DAILY 07/23/23 07/23/23 History release rivaroxaban 20 mg tablet (Xarelto) 20 mg PO QDD 07/23/23 07/23/23 History Patient History Medical History (Updated 07/24/23 @ 19:31 by Shauna Bailon MD) (HFpEF) heart failure with preserved ejection fraction Sepsis Pulmonary cachexia due to chronic obstructive pulmonary disease Weakness generalized Muscular deconditioning SIADH (syndrome of inappropriate ADH production) Stress-induced cardiomyopathy Anteroapical myocardial infarction Pulmonary embolism Carcinoma in situ of bladder Anxiety about health Anxiety associated with cancer diagnosis Depression Declining performance status Dyspnea and respiratory abnormalities Anemia Dysphagia Primary small cell malignant neoplasm of lung, stage 4 Acute kidney injury Hypomagnesemia Non-ST elevation LA (NSTEMI) Acute UTI (urinary tract infection) Cardiomyopathy Paroxysmal atrial fibrillation Hyponatremia Breast cancer DVT (deep venous thrombosis) (10/2022) LFTs abnormal Pneumonia Liver lesion Excessive cerumen in both ear canals Anxiety Insomnia Urinary incontinence Chronic hypoxemic respiratory failure Chronic obstructive pulmonary disease Hypomagnesemia Anticoagulant long-term use UTI (urinary tract infection) Chronic respiratory failure with hypoxia Polymyalgia rheumatica Small cell lung cancer GERD (gastroesophageal reflux disease) Pancytopenia due to antineoplastic chemotherapy Ex-smoker Lower extremity edema Chronic dyspnea Small cell lung cancer Malignant neoplasm of lung Bronch with biopsy on 11/15/21 Hearing deficit cannot afford hearing aids Vertebral fracture LUMBAR AND THORACIC Osteoporosis Tremor RIGHT HAND Migraine HX Compression fracture of L1 vertebra (08/15/21) Chronic Endometrial thickening on ultrasound Ureteral tumor Port-A-Cath in place Liver abscess History of diverticulitis Hx of bladder cancer HAD BCG INSTILLATION - DX: 2012 History of liver disease 03/2019 [facility] FOR LIVER ABSCESS- GIVEN ABXS X MONTHS- FOLLOWING WITH [facility] FOR MONITORING -RECENT CT SCAN 06/16/19- SHOWS ABSCESS TO BE DECREASED TO 3.5CM (SURGEON IS AWARE) Asthma (04/25/12) Stable and controlled Diabetes mellitus, type 2 NIDDM- WELL CONTROLLED AND STABLE History of breast cancer RIGHT S/P LUMPECTOMY/CHEMO/RADATION (2010)- STABLE AT THIS TIME Left rib fracture (2017) Surgical History S/P ablation of atrial flutter History of bronchoscopy 11/15/21 Nausea and vomiting after administration of anesthetic agent H/O cystoscopy SEVERAL History of colonoscopy History of surgery LEFT CHEST PORT History of lumpectomy of right breast History of elbow surgery RIGHT History of arthroscopy B/L KNEE History of breast biopsy History of surgery TURBT X 2; TURBT, CYSTO, RIGHT RPG, STENT: 07/11/18: LMA#4 AT [facility] History of appendectomy History of cholecystectomy Family History Other Adopted Family history unknown Social History Smoking Status: Former smoker Tobacco Type: Cigarettes Cigarettes Per Day: Less than 1/2 PPD now;Smoked 50+yrs;; Second Hand Exposure: Yes; Do You Dip or Chew Tobacco: No; Hx Alcohol Use: No Hx Substance Use: No Preferred Language: Pashto Communication Ability: Effective Communication Tools: Other Visual Impairment: No Limitations Hearing Ability: Hard of Hearing Offset Platemaker Required: No Beliefs That Will Affect Care: None marital status: Single Current Living Situation: Other Current Living Situation Comment: roomate current occupational status: retired Other Information That Helps Us Care for You: No Feels Safe at Home: Yes Safety Concerns: Feels Safe At This Time Childhood Exposure to Second-Hand Smoke: Yes Diet: regular caffeine: No during the past year weight has: remained stable Dental Care, Regularly: Yes Physical Activity Frequency: 1-2 Times per Week Seatbelt Use: always Sunscreen Use: Yes Assistive Devices: Bedside Commode, Hospital Bed, Oxygen - Continuous and Wheelchair Review of Systems Review of Systems: Per HPI Physical Exam Physical Exam: General:Alert and oriented, no acute distress, HEENT: Normocephalic, moist oral mucosa, Cardio: Irregularly irregular rhythm, no murmur, minor peripheral edema Resp:Diminished breath sounds in all hernandez with some faint wheezing Chest: Reproducible chest pain with palpation over anterior chest wall bilaterally Skin: Warm, pink, dry, Psych: Mood-affect congruence. Results & Data Vital Signs (Past 12 Hours) Vital Signs Temp Pulse Pulse Resp BP Pulse Ox O2 Del Method 07/26/23 10:57 77 18 97 Nasal Cannula 07/26/23 09:35 81 07/26/23 07:14 86 18 93 Nasal Cannula 07/26/23 07:07 36.7 C 106 H 19 148/80 H 94 Nasal Cannula 07/26/23 07:05 76 07/26/23 03:29 36.5 C 73 17 129/69 99 Nasal Cannula 07/25/23 23:28 36.6 C 107 H 19 135/73 98 Nasal Cannula O2 Flow Rate 07/26/23 10:57 3 07/26/23 09:35 07/26/23 07:14 3 07/26/23 07:07 3.0 07/26/23 07:05 07/26/23 03:29 3.0 07/25/23 23:28 3.0 PG Care Time/CCT Total # of Minutes Spent Total Time Spent with Patient: Total time spent is greater than 50% in coordination of care (as documented) at patient's floor/unit and/or counseling patient: Coding Level of Care Code 14315 INT INP/OBS CARE 3/75MIN Diagnoses Paroxysmal atrial fibrillation I48.0 (HFpEF) heart failure with preserved ejection fraction I50.30 Resident Activity Tracking Resident Involvement: Resident Care Provided Care Provided: Adult Hospital Medicine
[2023-07-26] MEDS ORDERED: RIVAROXABAN 20 MG TAB PO SCH (16:30)
[2023-07-26] MEDS: METOPROLOL TARTRATE 1 MG/ML VIAL IV SCH (16:41)
--- NOTE | 2023-07-26 17:33 | Hospitalist Progress Note ---
Date of Service July 26, 2023 Assessment & Plan (1) Sepsis: Plan: Presented with leukocytosis of 23, elevated procalcitonin at 23, and worsening shortness of breath Suspected pulmonary source, chest x-ray with opacity in the right lower lung field and small pleural effusion consistent with pneumonia Lactate WNL and initially with MAP > 65, also with congestive heart failure therefore 30ml/kg not given-was later given IV fluids after she became hypotensive from relative adrenal insufficiency and rapid atrial fibrillation Viral respiratory BioFire PCR negative, UA appears contaminated with epithelial cells, urine culture negative Initially started on vancomycin, Zosyn, Doxycycline, but discontinued vancomycin as MRSA swab negative CRP elevated at 14, blood cultures remain no growth to date, leukocytosis continues to improve, remains afebrile Follow up blood, sputum cultures-no growth to date Armstrong catheter placed on admission, continue for now BPs improved--> Continue stress dose steroids but dc IV hydrocortisone and change to prednisone 20mg daily for tomorrow, then taper back to home dose of 10mg daily (2) Chronic obstructive pulmonary disease: Plan: Acute and chronic respiratory failure with hypoxia Hx COPD on chronic O2 at 2L presents with respiratory rate 22-34, pulse ox 86%, increased SOB, and requiring increased O2 to 4L, Duoneb tx-now improving back to 3 L nasal cannula With sepsis, pneumonia-treated with antibiotics Continue [employer] (3) (HFpEF) heart failure with preserved ejection fraction: Plan: With acute on chronic HFpEF with evidence of volume overload with significant peripheral edema, some small bilateral pleural effusions on chest x-ray With hypotension on admission due to adrenal insufficiency treated with 3 L total of isotonic fluid boluses and stress dose steroids Blood pressures are now improved and remains with peripheral edema-improving with Lasix IV -will give another lasix 20mg IV bid today Reassess daily for further diuretics Maintain Armstrong catheter for now I's and O's, daily weights Monitor BMP, magnesium, replace electrolytes as needed Fluid restrict to 1800 mL/day, low-sodium diet (4) Pneumonia: Plan: As above Incentive spirometer, flutter valve Follow chest imaging in 4 weeks (5) Paroxysmal atrial fibrillation: Plan: Initially in normal sinus rhythm, but then had rapid atrial fibrillation for a little over an hour in the evening of 07/22 which caused hypotension, rates in the 130s, spontaneously converted back to sinus rhythm after receiving IV fluids and stress dose steroids Back in and out of rapid atrial fibrillation 07/24 and 07/25-gave IV Lopressor and wioll start metoprolol 25mg po bid Continue amiodarone for rhythm control, check amiodarone level-will take 1-2 weeks to result Continue rivaroxaban for anticoagulation-renally dosed at 15 mg daily (was recently converted to Xarelto from Coumadin) Follow on telemetry Cardiology consult appreciated (6) JAMIL (acute kidney injury): Plan: *Acute kidney failure Creatinine elevated at 1.25 on admission and now improved with diuretics to 1.1 Could be secondary to ATN from hypotension, sepsis Blood pressures are improved, okay to give Lasix for volume overload Follow BMP (7) Primary small cell malignant neoplasm of lung, stage 4: Plan: Last x last Sunday [facility] ([facility]) Anemia: Plan: Hemoglobin low but around baseline at 8.6, macrocytic, longstanding, previously required IV iron infusions B12 and folate were normal 1 month ago, TSH normal 1 week ago iron studies here are normal Likely anemia of chronic disease Continue folic acid and B12 supplements (9) Chronic constipation: Plan: Gave Senokot 17.2 mg p.o. at bedtime and then with loose stools She is requesting Imodium as needed (10) Thrombocytopenia: Plan: Mildly low but improved from previous at 123 B12 and folate normal, possibly from chemotherapy? Follow CBC (11) GERD (gastroesophageal reflux disease): Plan: Continue PPI (12) Polymyalgia rheumatica: Plan: Chronically on prednisone 10 mg daily-currently on stress dose steroids (13) Depression: Plan: Continue sertraline and olanzapine Plan VTE Prophylaxis - rivaroxaban Disposition -continued stay on PCU, likely dc to home in 2 days if Afib controlled. PT/OT consults pending Admission and Anticipated Discharge Date Admission Date: July 23, 2023 Subjective Pt reports no diarrhea today. Is eating all her meals. Feels SOB when in rapid afib and then feels better when converts to sinus. She is OOB to chair for the first time today. Overall feeling better. I discussed her care with Cardiology Tele with Afib rates 110s-130s for an hour or less and then spontaneously converting back to sinus with rates 70-80s Physical Exam Constitutional: WD/WN, vitals as above Respiratory: normal respiratory effort; no cough Auscultation: + diminished lung sounds (Throughout) and + crackles (Right base); no rhonchi and no wheezes Cardiovascular: Rate/Rhythm: regular rate and regular rhythm Heart Sounds: no murmur Extremities: + edema (1+ pitting edema of legs bilaterally to the knees/thighs) Gastrointestinal (Abdomen): normal bowel sounds, soft, nontender, no hepatosplenomegaly Skin: no rashes, warm and dry Psychiatric: A+Ox3, euthymic affect Results & Data Results & Data Vital Signs (Past 12 Hours) Vital Signs Temp Pulse Pulse Pulse Resp BP BP 07/26/23 16:56 71 07/26/23 16:41 83 127/71 07/26/23 16:22 36.7 C 83 18 127/71 07/26/23 16:19 76 07/26/23 15:04 73 18 07/26/23 11:22 36.4 C L 109 H 20 133/68 07/26/23 10:57 77 18 07/26/23 09:35 81 07/26/23 08:00 07/26/23 07:14 86 18 07/26/23 07:07 36.7 C 106 H 19 148/80 H 07/26/23 07:05 76 Pulse Ox O2 Del Method O2 Flow Rate 07/26/23 16:56 07/26/23 16:41 07/26/23 16:22 96 Nasal Cannula 4 07/26/23 16:19 07/26/23 15:04 98 Nasal Cannula 3 07/26/23 11:22 93 Nasal Cannula 3.0 07/26/23 10:57 97 Nasal Cannula 3 07/26/23 09:35 07/26/23 08:00 Nasal Cannula 3 07/26/23 07:14 93 Nasal Cannula 3 07/26/23 07:07 94 Nasal Cannula 3.0 07/26/23 07:05 Laboratory Results CBC, BMP, magnesium reviewed PG Care Time/CCT Total # of Minutes Spent Total Time Spent with Patient: Total time spent is greater than 50% in coordination of care (as documented) at patient's floor/unit and/or counseling patient: Coding Level of Care Code 28644 SUB INP/OBS CARE 3/50MIN Diagnoses Sepsis A41.9 Chronic obstructive pulmonary disease J44.9 (HFpEF) heart failure with preserved ejection fraction I50.30 Pneumonia J18.9 Laterality: unspecified laterality Lung location: unspecified part of lung Pneumonia type: due to unspecified organism Paroxysmal atrial fibrillation I48.0 JAMIL (acute kidney injury) N17.9 Primary small cell malignant neoplasm of lung, stage 4 C34.90 Anemia D64.9 Anemia type: unspecified type Chronic constipation K59.09 Thrombocytopenia D69.6 GERD (gastroesophageal reflux disease) K21.9 Polymyalgia rheumatica M35.3 Persistent depressive disorder F34.1 Depression Type: persistent depressive disorder (4) Pneumonia Laterality: unspecified laterality Lung location: unspecified part of lung Pneumonia type: due to unspecified organism Qualified Code(s): J18.9 - Pneumonia, unspecified organism (8) Anemia Anemia type: unspecified type Qualified Code(s): D64.9 - Anemia, unspecified (13) Depression Depression Type: persistent depressive disorder Qualified Code(s): F34.1 - Dysthymic disorder
[2023-07-26] MEDS: CALCIUM 600MG + VIT D 400 IU TAB PO SCH (17:46)
[2023-07-26] MEDS: FUROSEMIDE INJ 20 MG/2 ML VIAL IV ONE (18:14)
[2023-07-26] MEDS: METOPROLOL TARTRATE 25 MG TAB PO SCH (20:38)
[2023-07-27] MEDS: BUDESONIDE/GLYCOPYR/FORMOTEROL INHALER INH SCH (06:35)
[2023-07-27 07:12] LABS: Basophils # (auto) 0.01 K/uL (0.00-0.20); Basophils % (auto) 0.1 %; Eosinophils # (auto) 0.05 K/uL (0.00-0.50); Eosinophils % (auto) 0.6 %; Hematocrit (blood only) 29.3 % (37.0-47.0); Immature Granulocytes # (auto) 0.05 K/uL (0.01-0.20); Immature Granulocytes % (auto) 0.6 %; Lymphocytes # (auto) 0.49 K/uL (1.20-3.40); Lymphocytes % (auto) 5.7 %; Mean Corpuscular Hemoglobin 34.1 pg (25.0-34.0); Mean Corpuscular Hgb Conc 30.7 g/dL (32.0-36.0); Mean Platelet Volume 9.4 fL (9.4-12.4); Monocytes # (auto) 0.71 K/uL (0.11-0.59); Monocytes % (auto) 8.2 %; Neutrophils # (auto) 7.33 K/uL (1.40-6.50); Neutrophils % (auto) 84.8 %; Platelet Count 134 K/uL (130-400); RDW Coefficient of Variation 15.9 % (11.5-14.5); RDW Standard Deviation 65.5 fL (36.4-46.3); Red Blood Count 2.64 M/uL (4.20-5.40); White Blood Count 8.64 K/ul (4.8-10.8)
[2023-07-27 07:33] LABS: BUN Creatinine Ratio 20.7 (10-20); Calcium 8.6 mg/dl (8.6-10.3); Creatinine Clr Calc Pharmacy 38.3 ml/min; Est GFR (African American) 51.9 ml/min; Est GFR (Non-African American) 44.7 ml/min; Magnesium 1.9 mg/dl (1.7-2.4); Potassium 4.2 mmol/L (3.5-5.1)
[2023-07-27 07:41] LABS: Macrocytosis Present
[2023-07-27] MEDS: predniSONE 20 MG TAB PO SCH (09:00)
--- NOTE | 2023-07-27 14:47 | Hospitalist Progress Note ---
Date of Service July 27, 2023 Assessment & Plan (1) Sepsis: Plan: Presented with leukocytosis of 23, elevated procalcitonin at 23, and worsening shortness of breath Suspected pulmonary source, chest x-ray with opacity in the right lower lung field and small pleural effusion consistent with pneumonia Lactate WNL and initially with MAP > 65, also with congestive heart failure therefore 30ml/kg not given-was later given IV fluids after she became hypotensive from relative adrenal insufficiency and rapid atrial fibrillation Viral respiratory BioFire PCR negative, UA appears contaminated with epithelial cells, urine culture negative Initially started on vancomycin, Zosyn, Doxycycline, but discontinued vancomycin as MRSA swab negative CRP elevated at 14, blood cultures remain no growth to date, leukocytosis continues to improve, remains afebrile Follow up blood, sputum cultures-no growth to date Armstrong catheter placed on admission, continue for now BPs improved--> given stress dose of steroids with initially IV hydrocortisone and then higher dose of prednisone. Will start home dose of prednisone 10 mg tomorrow (2) Chronic obstructive pulmonary disease: Plan: Acute and chronic respiratory failure with hypoxia Hx COPD on chronic O2 at 2L presents with respiratory rate 22-34, pulse ox 86%, increased SOB, and requiring increased O2 to 4L, Duoneb tx-now improving back to 3 L nasal cannula With sepsis, pneumonia-treated with antibiotics Continue [employer] (3) (HFpEF) heart failure with preserved ejection fraction: Plan: With acute on chronic HFpEF with evidence of volume overload with significant peripheral edema, some small bilateral pleural effusions on chest x-ray With hypotension on admission due to adrenal insufficiency treated with 3 L total of isotonic fluid boluses and stress dose steroids Blood pressures are now improved and remains with peripheral edema-improving with Lasix IV -will give another lasix 20mg IV once today Reassess daily for further diuretics Maintain Armstrong catheter for now I's and O's, daily weights Monitor BMP, magnesium, replace electrolytes as needed Fluid restrict to 1800 mL/day, low-sodium diet (4) Pneumonia: Plan: As above Incentive spirometer, flutter valve Follow chest imaging in 4 weeks (5) Paroxysmal atrial fibrillation: Plan: Initially in normal sinus rhythm, but then had rapid atrial fibrillation for a little over an hour in the evening of 07/22 which caused hypotension, rates in the 130s, spontaneously converted back to sinus rhythm after receiving IV fluids and stress dose steroids Back in and out of rapid atrial fibrillation 07/24 and 07/25-gave IV Lopressor and wioll start metoprolol 25mg po bid Continue amiodarone for rhythm control, check amiodarone level-will take 1-2 weeks to result Continue rivaroxaban for anticoagulation-renally dosed at 15 mg daily (was recently converted to Xarelto from Coumadin) Follow on telemetry Cardiology consult appreciated (6) JAMIL (acute kidney injury): Plan: *Acute kidney failure Creatinine elevated at 1.25 on admission and now improved with diuretics to 1.1 Could be secondary to ATN from hypotension, sepsis Blood pressures are improved, okay to give Lasix for volume overload Follow BMP (7) Primary small cell malignant neoplasm of lung, stage 4: Plan: Last last Sunday [facility] ([facility]) Anemia: Plan: Hemoglobin low but around baseline at 8.6, macrocytic, longstanding, previously required IV iron infusions B12 and folate were normal 1 month ago, TSH normal 1 week ago iron studies here are normal Likely anemia of chronic disease Continue folic acid and B12 supplements (9) Chronic constipation: Plan: Gave Senokot 17.2 mg p.o. at bedtime and then with loose stools She is requesting Imodium as needed (10) Thrombocytopenia: Plan: Improved and normalized B12 and folate normal, possibly from chemotherapy? Follow CBC (11) GERD (gastroesophageal reflux disease): Plan: Continue PPI (12) Polymyalgia rheumatica: Plan: Chronically on prednisone 10 mg daily-currently on stress dose steroids (13) Depression: Plan: Continue sertraline and olanzapine Plan VTE Prophylaxis - rivaroxaban Disposition -continued stay on PCU, likely dc to home in 1-2 days if Afib controlled. PT/OT cleared for discharge to home Admission and Anticipated Discharge Date Admission Date: July 23, 2023 Subjective Patient feels well. Breathing better. Leg swelling improving. Review of Systems Review of Systems: All systems reviewed & are unremarkable except as noted in Subjective Physical Exam Physical Exam: General: Awake, conversant Heart: S1, S2/regular rate and rhythm, no murmur rubs or gallops Lungs: Clear to auscultation bilaterally. Normal effort Abdomen: Soft/nontender/nondistended. No hepatosplenomegaly Extremities: No clubbing/cyanosis. 1+ pitting bilateral edema Behavior: Appropriate, cooperative Results & Data Results & Data Vital Signs (Past 12 Hours) Vital Signs Temp Pulse Pulse Pulse Resp BP Pulse Ox 07/27/23 11:05 70 20 91 07/27/23 10:38 36.6 C 74 19 156/79 H 97 07/27/23 08:00 71 07/27/23 08:00 07/27/23 07:55 74 22 89 L 07/27/23 07:32 36.6 C 72 20 132/66 91 07/27/23 02:53 36.7 C 66 18 114/70 96 O2 Del Method O2 Flow Rate 07/27/23 11:05 3 07/27/23 10:38 Room Air 07/27/23 08:00 07/27/23 08:00 Nasal Cannula 3 07/27/23 07:55 Nasal Cannula 3 07/27/23 07:32 Nasal Cannula 3.0 07/27/23 02:53 Nasal Cannula 3 Laboratory Results Abnormal lab results 07/27/23 Range/Units 06:37 RBC 2.64 L (4.20-5.40) M/uL Hgb 9.0 L (12.0-16.0) g/dl Hct 29.3 L (37.0-47.0) % MCV 111.0 H (80.0-100.0) fL MCH 34.1 H (25.0-34.0) pg MCHC 30.7 L (32.0-36.0) g/dL RDW Std Deviation 65.5 H (36.4-46.3) fL RDW Coeff of Atul 15.9 H (11.5-14.5) % Neut # (Auto) 7.33 H (1.40-6.50) K/uL Lymph # (Auto) 0.49 L (1.20-3.40) K/uL [place] # (Auto) 0.71 H (0.11-0.59) K/uL Carbon Dioxide 38 H (21-32) mmol/L Anion Gap 2 L (3-11) BUN 24 H (6-23) mg/dl BUN/Creatinine Ratio 20.7 H (10-20) PG Care Time/CCT Total # of Minutes Spent Total Time Spent with Patient: Total time spent is greater than 50% in coordination of care (as documented) at patient's floor/unit and/or counseling patient: Coding Level of Care Code 30601 SUB INP/OBS CARE MIN Diagnoses Sepsis A41.9 Chronic obstructive pulmonary disease J44.9 (HFpEF) heart failure with preserved ejection fraction I50.30 Pneumonia J18.9 Laterality: unspecified laterality Lung location: unspecified part of lung Pneumonia type: due to unspecified organism Paroxysmal atrial fibrillation I48.0 JAMIL (acute kidney injury) N17.9 Primary small cell malignant neoplasm of lung, stage 4 C34.90 Anemia D64.9 Anemia type: unspecified type Chronic constipation K59.09 Thrombocytopenia D69.6 GERD (gastroesophageal reflux disease) K21.9 Polymyalgia rheumatica M35.3 Persistent depressive disorder F34.1 Depression Type: persistent depressive disorder (4) Pneumonia Laterality: unspecified laterality Lung location: unspecified part of lung Pneumonia type: due to unspecified organism Qualified Code(s): J18.9 - Pneumonia, unspecified organism (8) Anemia Anemia type: unspecified type Qualified Code(s): D64.9 - Anemia, unspecified (13) Depression Depression Type: persistent depressive disorder Qualified Code(s): F34.1 - Dysthymic disorder
[2023-07-27] MEDS: FUROSEMIDE INJ 20 MG/2 ML VIAL IV ONE (18:09)
[2023-07-27] MEDS ORDERED: HYDROCORTISONE 1% CRM 30 GM TUBE EXT PRN (19:15)
[2023-07-27] MEDS: dilTIAZem HCl 5 MG/ML 5 ML VIAL IV STA (19:23)
[2023-07-28 08:55] LABS: Hematocrit (blood only) 29.7 % (37.0-47.0); Mean Corpuscular Hemoglobin 33.2 pg (25.0-34.0); Mean Corpuscular Hgb Conc 30.3 g/dL (32.0-36.0); Mean Corpuscular Volume 109.6 fL (80.0-100.0); Mean Platelet Volume 9.2 fL (9.4-12.4); Platelet Count 135 K/uL (130-400); RDW Coefficient of Variation 15.5 % (11.5-14.5); Red Blood Count 2.71 M/uL (4.20-5.40); White Blood Count 6.98 K/ul (4.8-10.8)
[2023-07-28 09:12] LABS: BUN Creatinine Ratio 24.5 (10-20); Calcium 8.5 mg/dl (8.6-10.3); Creatinine Clr Calc Pharmacy 45.3 ml/min; Est GFR (African American) 63.6 ml/min; Est GFR (Non-African American) 54.9 ml/min; Potassium 3.4 mmol/L (3.5-5.1)
[2023-07-28] MEDS: predniSONE 10 MG TABLET PO SCH (09:20)
--- NOTE | 2023-07-28 12:53 | Hospitalist Progress Note ---
Date of Service July 28, 2023 Assessment & Plan (1) Sepsis: Plan: Presented with leukocytosis of 23, elevated procalcitonin at 23, and worsening shortness of breath Suspected pulmonary source, chest x-ray with opacity in the right lower lung field and small pleural effusion consistent with pneumonia Lactate WNL and initially with MAP > 65, also with congestive heart failure therefore 30ml/kg not given-was later given IV fluids after she became hypotensive from relative adrenal insufficiency and rapid atrial fibrillation Viral respiratory BioFire PCR negative, UA appears contaminated with epithelial cells, urine culture negative Initially started on vancomycin, Zosyn, Doxycycline, but discontinued vancomycin as MRSA swab negative CRP elevated at 14, blood cultures remain no growth to date, leukocytosis continues to improve, remains afebrile Follow up blood, sputum cultures-no growth to date Armstrong catheter placed on admission, continue for now BPs improved--> given stress dose of steroids with initially IV hydrocortisone and then higher dose of prednisone. Back to home dose of prednisone 10 mg daily (2) Chronic obstructive pulmonary disease: Plan: Acute and chronic respiratory failure with hypoxia Hx COPD on chronic O2 at 2L presents with respiratory rate 22-34, pulse ox 86%, increased SOB, and requiring increased O2 to 4L, Duoneb tx-now improving back to 3 L nasal cannula With sepsis, pneumonia-treated with antibiotics Continue [employer] (3) (HFpEF) heart failure with preserved ejection fraction: Plan: With acute on chronic HFpEF with evidence of volume overload with significant peripheral edema, some small bilateral pleural effusions on chest x-ray With hypotension on admission due to adrenal insufficiency treated with 3 L total of isotonic fluid boluses and stress dose steroids Blood pressures are now improved and remains with peripheral edema-improving with Lasix IV -will give a dose of 40 mg of p.o. Lasix today. Reassess daily for further diuretics Discontinue Armstrong catheter I's and O's, daily weights Monitor BMP, magnesium, replace electrolytes as needed Fluid restrict to 2000 mL/day, low-sodium diet (4) Pneumonia: Plan: As above Incentive spirometer, flutter valve Follow chest imaging in 4 weeks (5) Paroxysmal atrial fibrillation: Plan: Initially in normal sinus rhythm, but then had rapid atrial fibrillation for a little over an hour in the evening of 07/22 which caused hypotension, rates in the 130s, spontaneously converted back to sinus rhythm after receiving IV fluids and stress dose steroids Back in and out of rapid atrial fibrillation 07/24 and 07/25-gave IV Lopressor and started metoprolol 25mg po bid Continue amiodarone for rhythm control, check amiodarone level-will take 1-2 weeks to result Continue rivaroxaban for anticoagulation-renally dosed at 15 mg daily (was recently converted to Xarelto from Coumadin) Follow on telemetry Cardiology consult appreciated (6) JAMIL (acute kidney injury): Plan: *Acute kidney failure Creatinine elevated at 1.25 on admission and now improved with diuretics to 1.1 Could be secondary to ATN from hypotension, sepsis Blood pressures are improved, okay to give Lasix for volume overload Follow BMP (7) Primary small cell malignant neoplasm of lung, stage 4: Plan: Last last Sunday [facility] ([facility]) Anemia: Plan: Hemoglobin low but around baseline at 8.6, macrocytic, longstanding, previously required IV iron infusions B12 and folate were normal 1 month ago, TSH normal 1 week ago iron studies here are normal Likely anemia of chronic disease Continue folic acid and B12 supplements (9) Chronic constipation: Plan: Gave Senokot 17.2 mg p.o. at bedtime and then with loose stools She is requesting Imodium as needed (10) Thrombocytopenia: Plan: Improved and normalized B12 and folate normal, possibly from chemotherapy? Follow CBC (11) GERD (gastroesophageal reflux disease): Plan: Continue PPI (12) Polymyalgia rheumatica: Plan: Chronically on prednisone 10 mg daily (13) Depression: Plan: Continue sertraline and olanzapine Plan VTE Prophylaxis - rivaroxaban Disposition -continued stay on PCU, likely dc to home in 1-2 days if Afib controlled. PT/OT cleared for discharge to home Admission and Anticipated Discharge Date Admission Date: July 23, 2023 Subjective Patient feels well overall. Yesterday she was going back and forth into rapid atrial fibrillation. Currently her heart rate is controlled. Review of Systems Review of Systems: All systems reviewed & are unremarkable except as noted in Subjective Physical Exam Physical Exam: General: Awake, conversant Heart: S1, S2/regular rate and rhythm, no murmur rubs or gallops Lungs: Clear to auscultation bilaterally. Normal effort Abdomen: Soft/nontender/nondistended. No hepatosplenomegaly Extremities: No clubbing/cyanosis. 1+ pitting bilateral edema Behavior: Appropriate, cooperative Results & Data Results & Data Vital Signs (Past 12 Hours) Vital Signs Temp Pulse Pulse Pulse Resp BP Pulse Ox 07/28/23 12:06 36.6 C 72 18 131/70 92 07/28/23 10:16 68 18 94 07/28/23 09:08 92 H 07/28/23 07:40 36.3 C L 114 H 26 H 131/76 97 07/28/23 07:28 82 18 91 07/28/23 03:59 36.5 C 55 L 18 132/78 94 O2 Del Method O2 Flow Rate 07/28/23 12:06 Nasal Cannula 2 07/28/23 10:16 Nasal Cannula 2 07/28/23 09:08 07/28/23 07:40 Nasal Cannula 1 07/28/23 07:28 Nasal Cannula 3 07/28/23 03:59 Nasal Cannula 2 Laboratory Results Abnormal lab results 07/28/23 Range/Units 08:34 RBC 2.71 L (4.20-5.40) M/uL Hgb 9.0 L (12.0-16.0) g/dl Hct 29.7 L (37.0-47.0) % MCV 109.6 H (80.0-100.0) fL MCHC 30.3 L (32.0-36.0) g/dL RDW Std Deviation 62.0 H (36.4-46.3) fL RDW Coeff of Atul 15.5 H (11.5-14.5) % MPV 9.2 L (9.4-12.4) fL Potassium 3.4 L (3.5-5.1) mmol/L Carbon Dioxide 39 H (21-32) mmol/L Anion Gap 2 L (3-11) BUN 24 H (6-23) mg/dl BUN/Creatinine Ratio 24.5 H (10-20) Calcium 8.5 L (8.6-10.3) mg/dl PG Care Time/CCT Total # of Minutes Spent Total Time Spent with Patient: Total time spent is greater than 50% in coordination of care (as documented) at patient's floor/unit and/or counseling patient: Coding Level of Care Code 62264 SUB INP/OBS CARE 2/35MIN Diagnoses Sepsis A41.9 Chronic obstructive pulmonary disease J44.9 (HFpEF) heart failure with preserved ejection fraction I50.30 Pneumonia J18.9 Laterality: unspecified laterality Lung location: unspecified part of lung Pneumonia type: due to unspecified organism Paroxysmal atrial fibrillation I48.0 JAMIL (acute kidney injury) N17.9 Primary small cell malignant neoplasm of lung, stage 4 C34.90 Anemia D64.9 Anemia type: unspecified type Chronic constipation K59.09 Thrombocytopenia D69.6 GERD (gastroesophageal reflux disease) K21.9 Polymyalgia rheumatica M35.3 Persistent depressive disorder F34.1 Depression Type: persistent depressive disorder (4) Pneumonia Laterality: unspecified laterality Lung location: unspecified part of lung Pneumonia type: due to unspecified organism Qualified Code(s): J18.9 - Pneumonia, unspecified organism (8) Anemia Anemia type: unspecified type Qualified Code(s): D64.9 - Anemia, unspecified (13) Depression Depression Type: persistent depressive disorder Qualified Code(s): F34.1 - Dysthymic disorder
[2023-07-28] MEDS: FUROSEMIDE 40 MG TAB PO ONE (13:28)
[2023-07-28] MEDS: MICONAZOLE NITRATE POWDER 85 GM EXT PRN (14:17)
[2023-07-28] MEDS: FUROSEMIDE INJ 20 MG/2 ML VIAL IV ONE (17:19)
[2023-07-29 06:13] LABS: Hematocrit (blood only) 28.1 % (37.0-47.0); Hemoglobin 8.8 g/dl (12.0-16.0); Mean Corpuscular Hemoglobin 33.6 pg (25.0-34.0); Mean Corpuscular Hgb Conc 31.3 g/dL (32.0-36.0); Mean Corpuscular Volume 107.3 fL (80.0-100.0); Mean Platelet Volume 9.6 fL (9.4-12.4); Platelet Count 137 K/uL (130-400); RDW Standard Deviation 59.5 fL (36.4-46.3); Red Blood Count 2.62 M/uL (4.20-5.40); White Blood Count 7.61 K/ul (4.8-10.8)
[2023-07-29 07:09] LABS: BUN Creatinine Ratio 24.3 (10-20); Calcium 8.3 mg/dl (8.6-10.3); Creatinine Clr Calc Pharmacy 43.1 ml/min; Est GFR (African American) 59.9 ml/min; Est GFR (Non-African American) 51.7 ml/min; Potassium 3.2 mmol/L (3.5-5.1)
[2023-07-29] MEDS: POTASSIUM CHLORIDE CRTAB 20 MEQ TABCR PO STA (09:05)
[2023-07-29] MEDS: POTASSIUM CHLORIDE / WTR 10 MEQ/100 ML PLCT IV SCH (09:05)
--- NOTE | 2023-07-29 13:58 | Hospitalist Progress Note ---
Date of Service July 29, 2023 Assessment & Plan (1) Sepsis: Plan: Presented with leukocytosis of 23, elevated procalcitonin at 23, and worsening shortness of breath Suspected pulmonary source, chest x-ray with opacity in the right lower lung field and small pleural effusion consistent with pneumonia Lactate WNL and initially with MAP > 65, also with congestive heart failure therefore 30ml/kg not given-was later given IV fluids after she became hypotensive from relative adrenal insufficiency and rapid atrial fibrillation Viral respiratory BioFire PCR negative, UA appears contaminated with epithelial cells, urine culture negative Initially started on vancomycin, Zosyn, Doxycycline, but discontinued vancomycin as MRSA swab negative CRP elevated at 14, blood cultures remain no growth to date, leukocytosis continues to improve, remains afebrile Follow up blood, sputum cultures-no growth to date Armstrong catheter placed on admission, continue for now BPs improved--> given stress dose of steroids with initially IV hydrocortisone and then higher dose of prednisone. Back to home dose of prednisone 10 mg daily (2) Chronic obstructive pulmonary disease: Plan: Acute and chronic respiratory failure with hypoxia Hx COPD on chronic O2 at 2L presents with respiratory rate 22-34, pulse ox 86%, increased SOB, and requiring increased O2 to 4L, Duoneb tx-now improving back to 3 L nasal cannula With sepsis, pneumonia-treated with antibiotics Continue [email or web address] (3) (HFpEF) heart failure with preserved ejection fraction: Plan: With acute on chronic HFpEF with evidence of volume overload with significant peripheral edema, some small bilateral pleural effusions on chest x-ray With hypotension on admission due to adrenal insufficiency treated with 3 L total of isotonic fluid boluses and stress dose steroids Blood pressures are now improved and remains with peripheral edema-improving with Lasix IV Appears to be euvolemic. Will hold off on further diuretics today. Reassess daily for further diuretics Discontinue Armstrnog catheter I's and O's, daily weights Monitor BMP, magnesium, replace electrolytes as needed Fluid restrict to 2000 mL/day, low-sodium diet (4) Pneumonia: Plan: As above Incentive spirometer, flutter valve Follow chest imaging in 4 weeks (5) Paroxysmal atrial fibrillation: Plan: Initially in normal sinus rhythm, but then had rapid atrial fibrillation for a little over an hour in the evening of 07/22 which caused hypotension, rates in the 130s, spontaneously converted back to sinus rhythm after receiving IV fluids and stress dose steroids Back in and out of rapid atrial fibrillation 07/24 and 07/25-gave IV Lopressor and started metoprolol 25mg po bid Continue amiodarone for rhythm control, check amiodarone level-will take 1-2 weeks to result Continue rivaroxaban for anticoagulation-renally dosed at 15 mg daily (was recently converted to Xarelto from Coumadin) Follow on telemetry Cardiology consult appreciated (6) JAMIL (acute kidney injury): Plan: *Acute kidney failure Creatinine elevated at 1.25 on admission and now improved with diuretics to 1.1 Could be secondary to ATN from hypotension, sepsis Blood pressures are improved, okay to give Lasix for volume overload Follow BMP (7) Primary small cell malignant neoplasm of lung, stage 4: Plan: Last x last Sunday [facility] (8) Anemia: Plan: Hemoglobin low but around baseline at 8.6, macrocytic, longstanding, previously required IV iron infusions B12 and folate were normal 1 month ago, TSH normal 1 week ago iron studies here are normal Likely anemia of chronic disease Continue folic acid and B12 supplements (9) Chronic constipation: Plan: Gave Senokot 17.2 mg p.o. at bedtime and then with loose stools She is requesting Imodium as needed (10) Thrombocytopenia: Plan: Improved and normalized B12 and folate normal, possibly from chemotherapy? Follow CBC (11) GERD (gastroesophageal reflux disease): Plan: Continue PPI (12) Polymyalgia rheumatica: Plan: Chronically on prednisone 10 mg daily (13) Depression: Plan: Continue sertraline and olanzapine Plan VTE Prophylaxis - rivaroxaban Disposition -continued stay on PCU. PT/OT cleared for discharge to home Admission and Anticipated Discharge Date Admission Date: July 23, 2023 Subjective Patient feels well. Denies chest pain or shortness of breath. Yesterday, she had some issues with shortness of breath, requiring Lasix IV. Currently not short of breath. Review of Systems Review of Systems: All systems reviewed & are unremarkable except as noted in Subjective Physical Exam Physical Exam: General: Awake, conversant Heart: S1, S2/regular rate and rhythm, no murmur rubs or gallops Lungs: Clear to auscultation bilaterally. Normal effort Abdomen: Soft/nontender/nondistended. No hepatosplenomegaly Extremities: No clubbing/cyanosis. 1+ pitting bilateral edema Behavior: Appropriate, cooperative Results & Data Results & Data Vital Signs (Past 12 Hours) Vital Signs Temp Pulse Resp BP Pulse Ox O2 Del Method O2 Flow Rate 07/29/23 10:58 59 L 20 113/65 100 Nebulizer 07/29/23 10:54 60 18 94 Nasal Cannula 2 07/29/23 08:02 36.5 C 63 18 119/61 93 Nasal Cannula 07/29/23 07:32 92 H 16 95 Nasal Cannula 2 07/29/23 04:42 58 L 18 94 Nasal Cannula 2 07/29/23 03:28 36.8 C 58 L 18 121/70 97 Nasal Cannula 2.0 Laboratory Results Abnormal lab results 07/29/23 Range/Units 05:32 RBC 2.62 L (4.20-5.40) M/uL Hgb 8.8 L (12.0-16.0) g/dl Hct 28.1 L (37.0-47.0) % MCV 107.3 H (80.0-100.0) fL MCHC 31.3 L (32.0-36.0) g/dL RDW Std Deviation 59.5 H (36.4-46.3) fL RDW Coeff of Atul 15.0 H (11.5-14.5) % Potassium 3.2 L (3.5-5.1) mmol/L Carbon Dioxide 41 H* (21-32) mmol/L BUN 25 H (6-23) mg/dl BUN/Creatinine Ratio 24.3 H (10-20) Calcium 8.3 L (8.6-10.3) mg/dl PG Care Time/CCT Total # of Minutes Spent Total Time Spent with Patient: Total time spent is greater than 50% in coordination of care (as documented) at patient's floor/unit and/or counseling patient: Coding Level of Care Code 51967 SUB INP/OBS CARE 2/35MIN Diagnoses Sepsis A41.9 Chronic obstructive pulmonary disease J44.9 (HFpEF) heart failure with preserved ejection fraction I50.30 Pneumonia J18.9 Laterality: unspecified laterality Lung location: unspecified part of lung Pneumonia type: due to unspecified organism Paroxysmal atrial fibrillation I48.0 JAMIL (acute kidney injury) N17.9 Primary small cell malignant neoplasm of lung, stage 4 C34.90 Anemia D64.9 Anemia type: unspecified type Chronic constipation K59.09 Thrombocytopenia D69.6 GERD (gastroesophageal reflux disease) K21.9 Polymyalgia rheumatica M35.3 Persistent depressive disorder F34.1 Depression Type: persistent depressive disorder (4) Pneumonia Laterality: unspecified laterality Lung location: unspecified part of lung Pneumonia type: due to unspecified organism Qualified Code(s): J18.9 - Pneumonia, unspecified organism (8) Anemia Anemia type: unspecified type Qualified Code(s): D64.9 - Anemia, unspecified (13) Depression Depression Type: persistent depressive disorder Qualified Code(s): F34.1 - Dysthymic disorder
[2023-07-30 09:01] LABS: Hematocrit (blood only) 28.5 % (37.0-47.0); Hemoglobin 8.7 g/dl (12.0-16.0); Mean Corpuscular Hemoglobin 33.2 pg (25.0-34.0); Mean Corpuscular Hgb Conc 30.5 g/dL (32.0-36.0); Mean Corpuscular Volume 108.8 fL (80.0-100.0); Mean Platelet Volume 9.6 fL (9.4-12.4); Platelet Count 142 K/uL (130-400); RDW Coefficient of Variation 15.4 % (11.5-14.5); RDW Standard Deviation 62.3 fL (36.4-46.3); Red Blood Count 2.62 M/uL (4.20-5.40); White Blood Count 7.39 K/ul (4.8-10.8)
[2023-07-30 09:18] LABS: BUN Creatinine Ratio 22.8 (10-20); Calcium 8.4 mg/dl (8.6-10.3); Creatinine Clr Calc Pharmacy 43.7 ml/min; Est GFR (African American) 61.3 ml/min; Est GFR (Non-African American) 52.9 ml/min; Potassium 3.8 mmol/L (3.5-5.1)
--- NOTE | 2023-07-30 13:21 | Hospitalist Progress Note ---
Date of Service July 30, 2023 Assessment & Plan (1) Sepsis: Plan: Presented with leukocytosis of 23, elevated procalcitonin at 23, and worsening shortness of breath Suspected pulmonary source, chest x-ray with opacity in the right lower lung field and small pleural effusion consistent with pneumonia Lactate WNL and initially with MAP > 65, also with congestive heart failure therefore 30ml/kg not given-was later given IV fluids after she became hypotensive from relative adrenal insufficiency and rapid atrial fibrillation Viral respiratory BioFire PCR negative, UA appears contaminated with epithelial cells, urine culture negative Initially started on vancomycin, Zosyn, Doxycycline, but discontinued vancomycin as MRSA swab negative CRP elevated at 14, blood cultures remain no growth to date, leukocytosis continues to improve, remains afebrile Follow up blood, sputum cultures-no growth to date Armstrong catheter placed on admission, continue for now BPs improved--> given stress dose of steroids with initially IV hydrocortisone and then higher dose of prednisone. Back to home dose of prednisone 10 mg daily Patient will complete antibiotic course today. Will allow Zosyn and doxycycline to end today (2) Chronic obstructive pulmonary disease: Plan: Acute and chronic respiratory failure with hypoxia Hx COPD on chronic O2 at 2L presents with respiratory rate 22-34, pulse ox 86%, increased SOB, and requiring increased O2 to 4L, Duoneb tx-now improving back to 3 L nasal cannula With sepsis, pneumonia-treated with antibiotics Continue Ahalogy (3) (HFpEF) heart failure with preserved ejection fraction: Plan: With acute on chronic HFpEF with evidence of volume overload with significant peripheral edema, some small bilateral pleural effusions on chest x-ray With hypotension on admission due to adrenal insufficiency treated with 3 L total of isotonic fluid boluses and stress dose steroids Blood pressures are now improved and remains with peripheral edema-improving with Lasix IV Appears to be euvolemic. Will hold off on further diuretics today. Reassess daily for further diuretics Discontinue Armstrong catheter I's and O's, daily weights Monitor BMP, magnesium, replace electrolytes as needed Fluid restrict to 2000 mL/day, low-sodium diet (4) Pneumonia: Plan: As above Incentive spirometer, flutter valve Follow chest imaging in 4 weeks (5) Paroxysmal atrial fibrillation: Plan: Initially in normal sinus rhythm, but then had rapid atrial fibrillation for a little over an hour in the evening of 3/25 which caused hypotension, rates in the 130s, spontaneously converted back to sinus rhythm after receiving IV fluids and stress dose steroids Back in and out of rapid atrial fibrillation 07/24 and 07/25-gave IV Lopressor and started metoprolol 25mg po bid. Heart rate is better on the low side in the 50s to 60s range currently. Will lower the dose of metoprolol to 12.5 p.o. twice daily Continue amiodarone for rhythm control, check amiodarone level-will take 1-2 weeks to result Continue rivaroxaban for anticoagulation-renally dosed at 15 mg daily (was recently converted to Xarelto from Coumadin) Follow on telemetry Cardiology consult appreciated (6) JAMIL (acute kidney injury): Plan: *Acute kidney failure Creatinine elevated at 1.25 on admission and now improved with diuretics to 1.1 Could be secondary to ATN from hypotension, sepsis Blood pressures are improved, okay to give Lasix for volume overload Follow BMP (7) Primary small cell malignant neoplasm of lung, stage 4: Plan: Last last Sunday [facility] ([facility]) Anemia: Plan: Hemoglobin low but around baseline at 8.6, macrocytic, longstanding, previously required IV iron infusions B12 and folate were normal 1 month ago, TSH normal 1 week ago iron studies here are normal Likely anemia of chronic disease Continue folic acid and B12 supplements (9) Chronic constipation: Plan: Gave Senokot 17.2 mg p.o. at bedtime and then with loose stools She is requesting Imodium as needed Patient is having diarrhea which is likely antibiotic related. WBC count is normal, likely not C. difficile Will allow antibiotics to complete today (10) Thrombocytopenia: Plan: Improved and normalized B12 and folate normal, possibly from chemotherapy? Follow CBC (11) GERD (gastroesophageal reflux disease): Plan: Continue PPI (12) Polymyalgia rheumatica: Plan: Chronically on prednisone 10 mg daily (13) Depression: Plan: Continue sertraline and olanzapine Plan VTE Prophylaxis - rivaroxaban Disposition -continued stay on PCU. PT/OT cleared for discharge to home Admission and Anticipated Discharge Date Admission Date: July 23, 2023 Subjective Patient feels well. Not short of breath. Complains of some diarrhea. Review of Systems Review of Systems: All systems reviewed & are unremarkable except as noted in Subjective Physical Exam Physical Exam: General: Awake, conversant Heart: S1, S2/regular rate and rhythm, no murmur rubs or gallops Lungs: Clear to auscultation bilaterally. Normal effort Abdomen: Soft/nontender/nondistended. No hepatosplenomegaly Extremities: No clubbing/cyanosis. 1+ pitting bilateral edema Behavior: Appropriate, cooperative Results & Data Results & Data Vital Signs (Past 12 Hours) Vital Signs Temp Pulse Resp BP Pulse Ox O2 Del Method O2 Flow Rate 07/30/23 11:59 36.5 C 61 19 147/76 H 94 Nasal Cannula 2.0 07/30/23 11:24 57 L 16 95 Nasal Cannula 2 07/30/23 08:00 Room Air 07/30/23 07:41 36.8 C 61 18 122/73 94 Nasal Cannula 2.0 07/30/23 07:07 61 15 93 Nasal Cannula 2 07/30/23 03:54 36.5 C 56 L 18 124/74 98 Nasal Cannula 2.0 PG Care Time/CCT Total # of Minutes Spent Total Time Spent with Patient: Total time spent is greater than 50% in coordination of care (as documented) at patient's floor/unit and/or counseling patient: Coding Level of Care Code 51190 SUB INP/OBS CARE 2/35MIN Diagnoses Sepsis A41.9 Chronic obstructive pulmonary disease J44.9 (HFpEF) heart failure with preserved ejection fraction I50.30 Pneumonia J18.9 Laterality: unspecified laterality Lung location: unspecified part of lung Pneumonia type: due to unspecified organism Paroxysmal atrial fibrillation I48.0 JAMIL (acute kidney injury) N17.9 Primary small cell malignant neoplasm of lung, stage 4 C34.90 Anemia D64.9 Anemia type: unspecified type Chronic constipation K59.09 Thrombocytopenia D69.6 GERD (gastroesophageal reflux disease) K21.9 Polymyalgia rheumatica M35.3 Persistent depressive disorder F34.1 Depression Type: persistent depressive disorder (4) Pneumonia Laterality: unspecified laterality Lung location: unspecified part of lung Pneumonia type: due to unspecified organism Qualified Code(s): J18.9 - Pneumonia, unspecified organism (8) Anemia Anemia type: unspecified type Qualified Code(s): D64.9 - Anemia, unspecified (13) Depression Depression Type: persistent depressive disorder Qualified Code(s): F34.1 - Dysthymic disorder
[2023-07-30 15:09] VITALS: RESP 18
[2023-07-30] MEDS: ALBUT/IPRATROP 3MG/0.5MG NEB 3 ML VIAL NEB SCH (19:13)
[2023-07-30] MEDS: METOPROLOL TARTRATE 25 MG TAB PO SCH (20:13)
[2023-07-30] MEDS: HEPARIN 100 UNIT/ML 5ML FLUSH FLUSH PRN (20:58)
[2023-07-31 02:39] VITALS: BP 108/60; TEMP 98.2
[2023-07-31 06:56] VITALS: O2SAT 97
[2023-07-31 08:59] LABS: Hematocrit (blood only) 28.7 % (37.0-47.0); Hemoglobin 8.8 g/dl (12.0-16.0); Mean Corpuscular Hemoglobin 33.3 pg (25.0-34.0); Mean Corpuscular Hgb Conc 30.7 g/dL (32.0-36.0); Mean Corpuscular Volume 108.7 fL (80.0-100.0); Mean Platelet Volume 9.6 fL (9.4-12.4); Platelet Count 147 K/uL (130-400); RDW Coefficient of Variation 15.4 % (11.5-14.5); RDW Standard Deviation 62.6 fL (36.4-46.3); Red Blood Count 2.64 M/uL (4.20-5.40); White Blood Count 6.27 K/ul (4.8-10.8)
[2023-07-31 09:06] LABS: BUN Creatinine Ratio 20.4 (10-20); Calcium 8.6 mg/dl (8.6-10.3); Creatinine Clr Calc Pharmacy 42.8 ml/min; Est GFR (African American) 59.9 ml/min; Est GFR (Non-African American) 51.7 ml/min; Potassium 3.7 mmol/L (3.5-5.1)
--- NOTE | 2023-07-31 10:59 | Discharge Summary ---
Date of Service July 31, 2023 Admission HPI Per Admitting Provider Carla Ward is a 77 year old female with metastatic cancer on immunotherapy (Cosentyx) who presents to the ER with shortness of breath. She notes 2 weeks shortness of breath but much worse in the last 2 days. Associated generalized weakness, fatigue, loss of appetite. No chest pain, constipation, diarrhea, abdominal pain, nausea, vomiting. She was admitted recently in May with similar symptoms and CXR and was diagnosed with pneumonia based on CT. She reports feeling much sicker on this occasion. Admission Exam Per Admitting Provider Constitutional: WD/WN, vitals as above Eyes: + anicteric sclerae; normal pupil size ENMT: external ear and nose normal, oropharynx normal Neck: trachea midline, no thyromegaly Respiratory: normal respiratory effort; no respiratory distress Auscultation: + crackles (bibasal); breath sounds present, no diminished lung sounds and no wheezes Cardiovascular: Rate/Rhythm: regular rate and regular rhythm Heart Sounds: no murmur Vessels: no JVD Extremities: normal capillary refill and + pedal edema (trace b/l equal); no calf tenderness Gastrointestinal (Abdomen): normal bowel sounds, soft, nontender, no hepatosplenomegaly Musculoskeletal: no cyanosis or clubbing, extremities motor strength 5/5 Skin: no rashes, warm and dry Neurologic: moves all extremities and awake; not confused Psychiatric: A+Ox3, euthymic affect Principal Diagnosis Pneumonia Hypotension due to a combination of sepsis, adrenal insufficiency and Rapid A fib Rapid Afib Discharge Exam General: Awake, conversant Heart: S1, S2/regular rate and rhythm, no murmur rubs or gallops Lungs: Clear to auscultation bilaterally. Normal effort Abdomen: Soft/nontender/nondistended. No hepatosplenomegaly Extremities: No clubbing/cyanosis. 1+ pitting bilateral edema Behavior: Appropriate, cooperative Discharge Data Allergies Allergy/AdvReac Type Severity Reaction Status Date / Time castor oil Allergy Severe "TAXANES" Verified 06/22/23 08:19 CAUSE DYSPNEA, RASH, ELEVATED BP docetaxel [From Taxotere] Allergy Severe "TAXANES" Verified 06/22/23 08:19 CAUSE DYSPNEA, RASH, ELEVATED BP paclitaxel Allergy Severe "TAXANES" Verified 06/22/23 08:19 CAUSE DYSPNEA, RASH, ELEVATED BP trimethoprim [From Bactrim] Allergy Severe Anaphylaxis Verified 06/22/23 08:19 Iodinated Contrast Media Allergy Intermediate HIVES/ITCHI Verified 06/22/23 08:19 NG nitrofurantoin Allergy Intermediate CHEST Verified 06/22/23 08:19 PAIN, DYSPNEA Sulfa (Sulfonamide Allergy Intermediate HIVES, Verified 06/22/23 08:19 Antibiotics) ITCHINESS, SHORTNESS OF BREATH codeine AdvReac Intermediate COLD Verified 06/22/23 08:19 SWEAT, THINGS START SPINNING, NAUSEA phenazopyridine AdvReac Intermediate N/V Verified 06/22/23 08:19 Consultations 07/23/23 16:06 ED Decision to Admit Stat 07/26/23 08:53 Consult Cardiology Routine Hospital Course (1) Sepsis: Presented with leukocytosis of 23, elevated procalcitonin at 23, and worsening shortness of breath Suspected pulmonary source, chest x-ray with opacity in the right lower lung field and small pleural effusion consistent with pneumonia Lactate WNL and initially with MAP > 65, also with congestive heart failure therefore 30ml/kg not given-was later given IV fluids after she became hypotensive from relative adrenal insufficiency and rapid atrial fibrillation Viral respiratory BioFire PCR negative, UA appears contaminated with epithelial cells, urine culture negative Initially started on vancomycin, Zosyn, Doxycycline, but discontinued vancomycin as MRSA swab negative CRP elevated at 14, blood cultures remain no growth to date, leukocytosis continues to improve, remains afebrile Follow up blood, sputum cultures-no growth to date Armstrong catheter placed on admission, continue for now BPs improved--> given stress dose of steroids with initially IV hydrocortisone and then higher dose of prednisone. Back to home dose of prednisone 10 mg daily Patient completed her antibiotic course. From a pneumonia standpoint, patient has improved significantly (2) Chronic obstructive pulmonary disease: Acute and chronic respiratory failure with hypoxia Hx COPD on chronic O2 at 2L presents with respiratory rate 22-34, pulse ox 86%, increased SOB, and requiring increased O2 to 4L, Duoneb tx-now improving back to 3 L nasal cannula With sepsis, pneumonia-treated with antibiotics Continue [facility] (3) (HFpEF) heart failure with preserved ejection fraction: With acute on chronic HFpEF with evidence of volume overload with significant peripheral edema, some small bilateral pleural effusions on chest x-ray With hypotension on admission due to adrenal insufficiency treated with 3 L total of isotonic fluid boluses and stress dose steroids Blood pressures are now improved and remains with peripheral edema-improved with Lasix IV Appears to be euvolemic. Will hold off on further diuretics today. Reassess daily for further diuretics Discontinue Armstrong catheter I's and O's, daily weights Patient is back to baseline. Discharged on as needed Lasix as per prior to hospitalization (4) Pneumonia: As above Incentive spirometer, flutter valve Follow chest imaging in 4 weeks (5) Paroxysmal atrial fibrillation: Initially in normal sinus rhythm, but then had rapid atrial fibrillation for a little over an hour in the evening of 07/22 which caused hypotension, rates in the 130s, spontaneously converted back to sinus rhythm after receiving IV fluids and stress dose steroids Back in and out of rapid atrial fibrillation 07/24 and 07/25-gave IV Lopressor and started metoprolol 25mg po bid. Heart rate is better on the low side in the 50s to 60s range currently. Lowered the dose of metoprolol to 12.5 p.o. twice daily Continue amiodarone for rhythm control, check amiodarone level-will take 1-2 weeks to result Continue rivaroxaban for anticoagulation-renally dosed at 15 mg daily (was recently converted to Xarelto from Coumadin) Follow on telemetry Cardiology consult appreciated Patient will follow-up with her improvement nurse outpatient (6) JAMIL (acute kidney injury): *Acute kidney failure Creatinine elevated at 1.25 on admission and now improved with diuretics to 1.1 Could be secondary to ATN from hypotension, sepsis Blood pressures are improved Follow BMP outpatient (7) Primary small cell malignant neoplasm of lung, stage 4: Last x last Sunday [facility] (8) Anemia: Hemoglobin low but around baseline at 8.6, macrocytic, longstanding, previously required IV iron infusions B12 and folate were normal 1 month ago, TSH normal 1 week ago iron studies here are normal Likely anemia of chronic disease Continue folic acid and B12 supplements (9) Chronic constipation: Gave Senokot 17.2 mg p.o. at bedtime and then with loose stools She is requesting Imodium as needed Patient is having diarrhea which is likely antibiotic related. WBC count is normal, likely not C. difficile Completed antibiotic course (10) Thrombocytopenia: Improved and normalized B12 and folate normal, possibly from chemotherapy? Follow CBC (11) GERD (gastroesophageal reflux disease): Continue PPI (12) Polymyalgia rheumatica: Chronically on prednisone 10 mg daily (13) Depression: Continue sertraline and olanzapine Plan VTE Prophylaxis - rivaroxaban Discharge to home Total Time Total Time Spent Total Time Spent (In Minutes): 35 Discharge Plan Discharge Items Patient Disposition: Home - Self-Care Reason For Visit: SEPSIS Discharge Diagnosis: Pneumonia Hypotension due to a combination of sepsis, adrenal insufficiency and Rapid A fib Rapid Afib Activity: Resume your previous activity Non-emergency contact: Primary Care Provider Call non-emergency contact if: you have any medication questions and your s ymptoms worsen Follow-up/Referrals: Pro,Chandan Cassidy MD [Primary Care Provider] - 08/13/23 11:00 am (with Marsha Stallings PA-C.) Diet: Heart Healthy and Low Sodium (2gm) Addtl Attending Provider Instructions: Advised to followup with PCP in 1 week Advised to followup with improvement nurse in 2 weeks Pending Studies at Discharge: No Stand-Alone Forms: [facility] Medications and DC Order Prescriptions: New metoprolol tartrate 25 mg Tablet 12.5 mg PO BID 30 Days Qty: 30 0RF Continued cholecalciferol (vitamin D3) 25 mcg (1,000 unit) capsule 25 mcg PO DAILY mecobalamin (vitamin B12) 1,000 mcg tablet,disintegrating 1,000 mcg sublingual DAILY Rx Instructions: place tablet under tongue and allow to dissolve for at least30 secs before swallowing sennosides [Senokot] 8.6 mg tablet 8.6 mg PO DAILY PRN (Reason: Constipation) (DME) nebulizers Misc See Rx Instructions .Route Qty: 1 0RF Rx Instructions: nebulizer and nebulizer kits/supplies ANNALISA-99 Gemtesa 75 mg tablet 75 mg PO DAILY Qty: 90 3RF amiodarone 200 mg tablet 200 mg PO DAILY Qty: 90 3RF folic acid 1 mg tablet 1 mg PO QPM Qty: 30 5RF olanzapine 5 mg tablet 5 mg PO QPM Qty: 30 5RF prednisone 10 mg tablet 10 mg PO DAILY Qty: 30 1RF sertraline 100 mg tablet 100 mg PO DAILY Qty: 90 1RF sertraline 25 mg tablet 25 mg PO HS Qty: 90 1RF Rx Instructions: To be taken in addition to your 100mg tablet Breztri Aerosphere 160-9-4.8 mcg/actuation HFA aerosol inhaler 2 inh inhalation BID Qty: 10.7 5RF Rx Instructions: Family will bring from home. Caltrate 600-D Plus Minerals 600 mg calcium- 800 unit-50 mg Tablet 1 tab PO BID Qty: 60 0RF trazodone 50 mg tablet 100 mg PO HS furosemide 20 mg tablet 20 mg PO QAM PRN (Reason: Other) docusate sodium [Colace] 100 mg capsule 100 mg PO BID polyethylene glycol 3350 [Miralax] 17 gram/dose powder 17 g PO DAILY PRN (Reason: Constipation) ondansetron HCl 8 mg tablet 8 mg PO Q8H PRN (Reason: Nausea) oxycodone 5 mg tablet 0 mg PO Q8H PRN (Reason: Pain) Rx Instructions: Per med list from preferred pharmacy, this medication is currently on hold. Original directions are 5mg by mouth every 8 hours as needed for pain lidocaine 5 % adhesive patch,medicated 0 patch transdermal Q24H PRN (Reason: Other) Rx Instructions: Per med list from preferred pharmacy, this medication is currently on hold. Original directions are 1 patch topically every 24 hours diazepam 2 mg tablet 2 mg PO BID PRN (Reason: sedation) Qty: 60 0RF magnesium 30 mg Tablet 30 mg PO DAILY omeprazole 40 mg Capsule,Delayed Release(Dr/Ec) 40 mg PO DAILY Xarelto 20 mg tablet 20 mg PO QDD Rx Instructions: must administer with evening meal ipratropium-albuterol 0.5 mg-3 mg(2.5 mg base)/3 mL solution for nebulization 3 ml INHALATION Q6 PRN (Reason: Shortness Of Breath Or Wheezing) Rx Instructions: TAKES BID & PRN melatonin 10 mg Tablet 10 mg PO HS ipratropium-albuterol 0.5 mg-3 mg(2.5 mg base)/3 mL solution for nebulization 3 ml inhalation BID acetaminophen [Tylenol Extra Strength] 500 mg tablet 1,000 mg PO .BID-TID Ear Wax Removal Kit 6.5 % Drops 4 drp OTL BID PRN (Reason: ear wax) Qty: 15 0RF Rx Instructions: please give bottle from hospital Discharge Orders: Discharge Order (Routine); Ordered 07/31/23 Ordered By: Shakira Garcia Admission Data Admit Date/Time: 07/23/23 16:13 Attending Provider: Shakira Garcia Admit Provider: Jus Morgan Primary Care Provider: Chandan Bro Other Providers: Jus Morgan; Chandan Arrieta Other Interventions: Discharge Summary Assessment (RN) Last Done: 07/31/23 11:21 Coding Level of Care Code 18363 INP/OBS DISCH >30 MIN Diagnoses Sepsis A41.9 Chronic obstructive pulmonary disease J44.9 (HFpEF) heart failure with preserved ejection fraction I50.30 Pneumonia J18.9 Laterality: unspecified laterality Lung location: unspecified part of lung Pneumonia type: due to unspecified organism Paroxysmal atrial fibrillation I48.0 JAMIL (acute kidney injury) N17.9 Primary small cell malignant neoplasm of lung, stage 4 C34.90 Anemia D64.9 Anemia type: unspecified type Chronic constipation K59.09 Thrombocytopenia D69.6 GERD (gastroesophageal reflux disease) K21.9 Polymyalgia rheumatica M35.3 Persistent depressive disorder F34.1 Depression Type: persistent depressive disorder
[2023-07-31 11:23] VITALS: PULSE 52
--- NOTE | 2023-07-31 13:23 | Communication Note ---
Date of Service: July 31, 2023 Brief [facility] Med Note Carla is s/p PNA admission and returned home She is cleared for a pulm rehab intake evaluation 08/01/23. Thank you for allowing us to participate in the ongoing care of this patient. Please don't hesitate to call or page with any additional concerns. Dr. Ana Armstrong DNP Director, Palliative Care
== END 2023-07-31 13:44 | disposition home or self-care (01) | DRG 871 ==
LOC: SUATTDRO → ED 13:59 → 2S 16:13 → SUATTDRO 16:13 → 2S 18:25

== ENCOUNTER 2023-08-23 08:49 | Inpatient (IN) ==
--- NOTE | 2023-08-23 09:15 | Emergency Department Note ---
Impression & Plan Acute hypoxemic respiratory failure, Pneumonia, Non-ST elevation AL (NSTEMI), Elevated brain natriuretic peptide (BNP) level, Closed fracture of left inferior pubic ramus, Acute pain of left hip, Fall from standing, Shortness of breath ED Provider Note HISTORY OF PRESENT ILLNESS: Patient is a 77-year-old female presenting with shortness of breath and left hip pain. Patient reports has been having increasing shortness of breath for the last 24 to 48 hours. She normally wears 2 to 3 L nasal cannula, but her family increased her to 4 L this morning secondary to her increased work of breathing. Patient denies any chest pain. She has a history of A-fib and is on Xarelto. She reports that earlier this morning she lost her footing and fell, landing on her left hip and striking the left shoulder and head. She denies any loss of consciousness. Denies any numbness or tingling or weakness in extremities. Currently complaining of pain in the left lateral hip. Denies any abdominal pain, nausea or vomiting. Denies any recent fevers. She does report she has had a nonproductive cough for the last 2 weeks. Denies any sick contact exposures. Denies any DVT or PE history. ROS: as above PHYSICAL EXAM: Constitutional: Patient appears in no acute distress. HENT: Head: Normocephalic and atraumatic. Eyes: EOMI, PERRL Mouth/Throat: Mucous membranes moist. Neck: Trachea midline. Neck supple. Cardiovascular: Tachycardic with regular rhythm. No murmurs, rubs or gallops. Intact distal pulses. Pulmonary/Chest: No respiratory distress. Breath sounds clear and equal bilaterally. No wheezes or rales. No chest wall tenderness to palpation. Abdominal: Abdomen soft, no tenderness, rebound or guarding. Musculoskeletal: - LLE: No obvious deformity or open wounds. Patient has tenderness to palpation to the left lateral hip. She has pain with internal and external rotation of the femur. Intact DP and PT pulses. Able to dorsiflex and plantarflex the ankle. Skin: Warm and dry. No rash, erythema, pallor or cyanosis Psychiatric: Appropriate mood and affect for situation. Neurological: Alert and keenly responsive. CN II-XII grossly intact, moving all extremities equally and fully. MDM: - Vitals signs showed tachycardia and hypoxia. - History obtained via patient. History as above. - Chronic conditions affecting care: HFpEF; SIADH; PE hx; HLD; HTN; paroxysmal Afib; COPD; small cell lung cancer - Differential diagnoses include, but are not limited to: Congestive heart failure; acute coronary syndrome; COPD/asthma exacerbation; pulmonary edema; pulmonary embolism; pneumonia; pneumothorax; viral syndrome; left hip fracture; left hip contusion; left femur dislocation - Order placed for continuous cardiac monitoring. At this time, monitor showed rate of 95 bpm with normal sinus rhythm, per my interpretation. - External medical records reviewed. Primary care visit note dated 08/12/2023 was reviewed. Patient was seen in the clinic for follow-up after admission to [facility] from 07/23/2023 to 07/31/2023. She was admitted at that time for sepsis - EKG interpreted by myself showed normal sinus rhythm. Rate 104 bpm. QT 400. No acute ischemic changes. Noted to have a bifascicular block. - Laboratory workup interpreted by myself showed leukocytosis (WBC 15.22) with left shift; stable electrolytes; normal creatinine; elevated BNP (220); elevated troponin (253.0) - VBG showed slight hypercarbia with pCO2 64 mmHg. - Respiratory viral panel negative - CXR shows left upper lobe pneumonia, per my interpretation - Xray pelvis with L hip showed acute nondisplaced left inferior pubic ramus fracture. Also with possible superior pubic ramus fracture - CT head wo contrast negative for acute intracranial pathology - CT cervical spine wo contrast negative for acute pathology. - Blood cultures ordered - Patient given 100 mg IV doxycycline and 2g IV rocephin for pneumonia coverage. - Discussion was had with nurse case management about patient's case and need for admission - Hospitalist consulted for admission - Patient admitted to [facility] hospitalist service for further evaluation and management. ASSESSMENT AND PLAN: Diagnosis: acute hypoxic respiratory failure; shortness of breath; NSTEMI; pneumonia; elevated BNP; acute left hip pain; closed fracture of left inferior pubic ramus; fall from standing Plan: admit Past Med/Surg History Medical History (Updated 08/23/23 @ 11:53 by Alexandria Haque MD) (HFpEF) heart failure with preserved ejection fraction Sepsis Pulmonary cachexia due to chronic obstructive pulmonary disease Weakness generalized Muscular deconditioning SIADH (syndrome of inappropriate ADH production) Stress-induced cardiomyopathy Anteroapical myocardial infarction Pulmonary embolism Carcinoma in situ of bladder Anxiety about health Anxiety associated with cancer diagnosis Depression Declining performance status Dyspnea and respiratory abnormalities Anemia Dysphagia Primary small cell malignant neoplasm of lung, stage 4 Acute kidney injury Hypomagnesemia Non-ST elevation AL (NSTEMI) Acute UTI (urinary tract infection) Cardiomyopathy Paroxysmal atrial fibrillation Hyponatremia Breast cancer DVT (deep venous thrombosis) (10/2022) LFTs abnormal Pneumonia Liver lesion Excessive cerumen in both ear canals Anxiety Insomnia Urinary incontinence Chronic hypoxemic respiratory failure Chronic obstructive pulmonary disease Hypomagnesemia Anticoagulant long-term use UTI (urinary tract infection) Chronic respiratory failure with hypoxia Polymyalgia rheumatica Small cell lung cancer GERD (gastroesophageal reflux disease) Pancytopenia due to antineoplastic chemotherapy Ex-smoker Lower extremity edema Chronic dyspnea Small cell lung cancer Malignant neoplasm of lung Bronch with biopsy on 11/15/21 Hearing deficit cannot afford hearing aids Vertebral fracture LUMBAR AND THORACIC Osteoporosis Tremor RIGHT HAND Migraine HX Compression fracture of L1 vertebra (08/15/21) Chronic Endometrial thickening on ultrasound Ureteral tumor Port-A-Cath in place Liver abscess History of diverticulitis Hx of bladder cancer HAD BCG INSTILLATION - DX: 2012 History of liver disease 03/2019 [facility] FOR LIVER ABSCESS- GIVEN ABXS X MONTHS- FOLLOWING WITH [facility] FOR MONITORING -RECENT CT SCAN 06/16/19- SHOWS ABSCESS TO BE DECREASED TO 3.5CM (SURGEON IS AWARE) Asthma (04/25/12) Stable and controlled Diabetes mellitus, type 2 NIDDM- WELL CONTROLLED AND STABLE History of breast cancer RIGHT S/P LUMPECTOMY/CHEMO/RADATION (2009)- STABLE AT THIS TIME Left rib fracture (2016) Surgical History S/P ablation of atrial flutter History of bronchoscopy 11/15/21 Nausea and vomiting after administration of anesthetic agent H/O cystoscopy SEVERAL History of colonoscopy History of surgery LEFT CHEST PORT History of lumpectomy of right breast History of elbow surgery RIGHT History of arthroscopy B/L KNEE History of breast biopsy History of surgery TURBT X 2; TURBT, CYSTO, RIGHT RPG, STENT: 07/11/18: LMA#4 AT [facility] History of appendectomy History of cholecystectomy Family History Other Adopted Family history unknown Social History Smoking Status: Former smoker Tobacco Type: Cigarettes Cigarettes Per Day: Less than 1/2 PPD now;Smoked 50+yrs;; Second Hand Exposure: Yes; Do You Dip or Chew Tobacco: No; Hx Alcohol Use: No Hx Substance Use: No Preferred Language: Lao Communication Ability: Effective Communication Tools: Other Visual Impairment: No Limitations Hearing Ability: Hard of Hearing Interface Engineer Required: No Beliefs That Will Affect Care: None marital status: Single Current Living Situation: Other Current Living Situation Comment: roomate current occupational status: retired Feels Safe at Home: Yes Childhood Exposure to Second-Hand Smoke: Yes Diet: regular caffeine: No during the past year weight has: remained stable Dental Care, Regularly: Yes Physical Activity Frequency: 1-2 Times per Week Seatbelt Use: always Sunscreen Use: Yes Assistive Devices: Bedside Commode, Hospital Bed, Oxygen - Continuous and Wheelchair Allergies Allergies Allergy/AdvReac Type Severity Reaction Status Date / Time castor oil Allergy Severe "TAXANES" Verified 08/07/23 15:31 CAUSE DYSPNEA, RASH, ELEVATED BP docetaxel [From Taxotere] Allergy Severe "TAXANES" Verified 08/07/23 15:31 CAUSE DYSPNEA, RASH, ELEVATED BP paclitaxel Allergy Severe "TAXANES" Verified 08/07/23 15:31 CAUSE DYSPNEA, RASH, ELEVATED BP trimethoprim [From Bactrim] Allergy Severe Anaphylaxis Verified 08/07/23 15:31 Iodinated Contrast Media Allergy Intermediate HIVES/ITCHI Verified 08/07/23 15:31 NG nitrofurantoin Allergy Intermediate CHEST Verified 08/07/23 15:31 PAIN, DYSPNEA Sulfa (Sulfonamide Allergy Intermediate HIVES, Verified 08/07/23 15:31 Antibiotics) ITCHINESS, SHORTNESS OF BREATH codeine AdvReac Intermediate COLD Verified 08/07/23 15:31 SWEAT, THINGS START SPINNING, NAUSEA phenazopyridine AdvReac Intermediate N/V Verified 08/07/23 15:31 Home Meds Home Medications Medication Instructions Recorded Confirmed cholecalciferol (vitamin D3) 25 25 mcg PO DAILY 12/01/21 08/23/23 mcg (1,000 unit) capsule mecobalamin (vitamin B12) 1,000 1,000 mcg sublingual DAILY 10/26/22 08/23/23 mcg disintegrating tablet,sublingual docusate sodium 100 mg capsule 100 mg PO BID Constipation 01/03/23 08/23/23 (Colace) polyethylene glycol 3350 17 17 g PO DAILY PRN Constipation 01/03/23 08/23/23 gram/dose oral powder (Miralax) ondansetron HCl 8 mg tablet 8 mg PO Q8H PRN Nausea 01/22/23 08/23/23 oxycodone 5 mg tablet 0 mg PO Q8H PRN Pain 01/22/23 08/23/23 lidocaine 5 % topical patch 0 patch transdermal Q24H PRN Other 02/28/23 08/23/23 furosemide 20 mg tablet 20 mg PO QAM PRN Other 05/19/23 08/23/23 acetaminophen 500 mg tablet 1,000 mg PO .BID-TID 06/11/23 08/23/23 (Tylenol Extra Strength) ipratropium 0.5 mg-albuterol 3 mg 3 ml inhalation Q6 PRN Shortness 06/11/23 08/23/23 (2.5 mg base)/3 mL nebulization Of Breath Or Wheezing soln melatonin 10 mg tablet 10 mg PO HS 06/11/23 08/23/23 magnesium 30 mg tablet 30 mg PO DAILY 06/22/23 08/23/23 omeprazole 40 mg capsule,delayed 40 mg PO DAILY 07/23/23 08/23/23 release rivaroxaban 20 mg tablet (Xarelto) 20 mg PO QDD 07/23/23 08/23/23 senokot gummies 8.6 mg PO UD PRN Constipation 08/02/23 08/23/23 Previous Rx's Medication Instructions Recorded nebulizers #1 ea 12/05/21 calcium 600 mg-D3 800 unit-mag11 1 tab PO BID #60 tabs 04/27/22 50 [id number]-beulah-s.borat tablet (Caltrate 600-D Plus Minerals) diazepam 2 mg tablet 2 mg PO BID PRN sedation #60 tabs 03/09/23 amiodarone 200 mg tablet 200 mg PO DAILY #90 tabs 05/17/23 folic acid 1 mg tablet 1 mg PO QPM #30 tabs 06/27/23 olanzapine 5 mg tablet 5 mg PO QPM #30 tabs 06/27/23 prednisone 10 mg tablet 10 mg PO DAILY #30 tabs 06/28/23 sertraline 100 mg tablet 100 mg PO DAILY #90 tabs 07/09/23 sertraline 25 mg tablet 25 mg PO HS #90 tabs 07/09/23 budesonide 160 mcg-glycopyr 9 2 inh inhalation BID #10.7 grams 07/20/23 mcg-formot 4.8 mcg/actuation HFA inhaler (Breztri Aerosphere) metoprolol tartrate 25 mg tablet 12.5 mg (1/2 x 25 mg) PO BID 1 07/31/23 month #30 tabs trazodone 50 mg tablet 100 mg (2 x 50 mg) PO HS #180 tabs 08/15/23 vibegron 75 mg tablet (Gemtesa) 75 mg PO DAILY #90 tabs 08/23/23 Results & Data (ED) Vital Signs Vital Signs - 24 hr 08/23/23 08:53 08/23/23 08:53 08/23/23 09:00 Temperature 36.7 C Temperature Source Temporal Artery Scan Pulse Rate 104 H 103 H Respiratory Rate 24 23 Respiratory Effort / Characteristics Non-Labored Spontaneous Respiratory Depth Normal Blood Pressure 127/95 130/76 Blood Pressure Mean 105 94 Blood Pressure Position Lying Pulse Oximetry 94 88 L 95 Oxygen Delivery Method Nasal Cannula Nasal Cannula Nasal Cannula Oxygen Flow Rate 4 0 4 Sepsis Recent Fever Within 48 Hours No Sepsis New/Unexplained Change in Mental Status No Sepsis Action Taken by Nursing No Action Required Oxygen Flow Rate - Titration 4 Pulse Oximetry Post Tiitration 93 08/23/23 09:05 08/23/23 10:01 08/23/23 11:12 Temperature Temperature Source Pulse Rate 108 H 99 H 96 H Respiratory Rate 21 21 Respiratory Effort / Characteristics Respiratory Depth Blood Pressure 115/61 115/49 L Blood Pressure Mean 79 71 Blood Pressure Position Pulse Oximetry 92 98 Oxygen Delivery Method Nasal Cannula Nasal Cannula Oxygen Flow Rate 4 4 Sepsis Recent Fever Within 48 Hours Sepsis New/Unexplained Change in Mental Status Sepsis Action Taken by Nursing Oxygen Flow Rate - Titration Pulse Oximetry Post Tiitration 08/23/23 11:30 Temperature Temperature Source Pulse Rate 95 H Respiratory Rate 24 Respiratory Effort / Characteristics Respiratory Depth Blood Pressure 97/68 L Blood Pressure Mean 77 Blood Pressure Position Pulse Oximetry 94 Oxygen Delivery Method Nasal Cannula Oxygen Flow Rate 4 Sepsis Recent Fever Within 48 Hours Sepsis New/Unexplained Change in Mental Status Sepsis Action Taken by Nursing Oxygen Flow Rate - Titration Pulse Oximetry Post Tiitration Laboratory Data 08/23/23 09:08 08/23/23 09:08 Lab Results 08/23/23 08/23/23 08/23/23 Range/Units 09:08 09:09 09:10 WBC 15.22 H (4.8-10.8) K/ul RBC 2.70 L (4.20-5.40) M/uL Hgb 9.2 L (12.0-16.0) g/dl Hct 30.0 L (37.0-47.0) % MCV 111.1 H (80.0-100.0) fL MCH 34.1 H (25.0-34.0) pg MCHC 30.7 L (32.0-36.0) g/dL RDW Std Deviation 61.5 H (36.4-46.3) fL RDW Coeff of Atul 15.1 H (11.5-14.5) % Plt Count 179 (130-400) K/uL MPV 9.3 L (9.4-12.4) fL Immature Gran % (Auto) 1.2 % Neut % (Auto) 86.8 % Lymph % (Auto) 4.5 % [place] % (Auto) 7.2 % Eos % (Auto) 0.2 % Baso % (Auto) 0.1 % Neut # (Auto) 13.21 H (1.40-6.50) K/uL Lymph # (Auto) 0.68 L (1.20-3.40) K/uL [place] # (Auto) 1.10 H (0.11-0.59) K/uL Eos # (Auto) 0.03 (0.00-0.50) K/uL Baso # (Auto) 0.02 (0.00-0.20) K/uL Immature Gran # (Auto) 0.18 (0.01-0.20) K/uL Polychromasia 1+ Anisocytosis Present Macrocytosis Present Target Cells 1+ Stomatocytes 1+ PT 12.4 H (9.0-12.0) Seconds INR 1.1 (0.9-1.1) VBG pH 7.39 (7.36-7.41) VBG pCO2 64 H (38-50) mmHg VBG pO2 33 mmHg VBG HCO3 39 mmol/L VBG O2 Saturation < 60.0 % VBG Base Excess 11.0 mEq/L Sodium 142 (136-145) mmol/L Potassium 3.8 (3.5-5.1) mmol/L Chloride 102 (98-107) mmol/L Carbon Dioxide 38 H (21-32) mmol/L Anion Gap 2 L (3-11) BUN 14 (6-23) mg/dl Creatinine 0.98 (0.6-1.2) mg/dl Est Cr Clr Drug Dosing 42.7 ml/min Est GFR ( Amer) 63.6 ml/min Est GFR (Non-Af Amer) 54.9 ml/min BUN/Creatinine Ratio 14.3 (10-20) Glucose 101 H (70-99(Fasting)) mg/dl Lactate (0.4-2.0) mmol/L Calcium 8.7 (8.6-10.3) mg/dl Magnesium 1.9 (1.7-2.4) mg/dl Total Bilirubin 0.4 (0.2-1.0) mg/dl AST 19 (13-39) U/L ALT 22 (7-52) U/L Alkaline Phosphatase 88 (34-104) U/L Troponin I High Sens 253.0 H* (0-14) pg/ml B-Natriuretic Peptide 220 H (0-100) pg/ml Total Protein 5.4 L (6.0-8.3) gm/dl Albumin 3.1 L (3.4-5.0) gm/dl Globulin 2.3 L (2.5-4.0) gm/dl Albumin/Globulin Ratio 1.3 (0.9-2) Procalcitonin (0-0.5) ng/ml Adenovirus (PCR) Not Detected (NotDetected) B. pertussis DNA (PCR) Not Detected (NotDetected) B.parapertussis DNA PCR Not Detected (NotDetected) C. pneumoniae DNA (PCR) Not Detected (NotDetected) Coronavirus OC43 (PCR) Not Detected (NotDetected) Coronavirus HKU1 (PCR) Not Detected (NotDetected) Coronavirus 229E (PCR) Not Detected (NotDetected) SARS-CoV-2 (PCR) Not Detected (NotDetected) Coronavirus NL63 (PCR) Not Detected (NotDetected) Human Metapneumovir PCR Not Detected (NotDetected) Influenza Type A (PCR) Not Detected (NotDetected) Influenza Type B (PCR) Not Detected (NotDetected) M. pneumoniae (PCR) Not Detected (NotDetected) Parainfluenza 1 (PCR) Not Detected (NotDetected) Parainfluenza 2 (PCR) Not Detected (NotDetected) Parainfluenza 3 (PCR) Not Detected (NotDetected) Parainfluenza 4 (PCR) Not Detected (NotDetected) RSV (PCR) Not Detected (NotDetected) Entero/Rhino (PCR) Not Detected (NotDetected) 08/23/23 08/23/23 Range/Units 10:30 11:00 WBC (4.8-10.8) K/ul RBC (4.20-5.40) M/uL Hgb (12.0-16.0) g/dl Hct (37.0-47.0) % MCV (80.0-100.0) fL MCH (25.0-34.0) pg MCHC (32.0-36.0) g/dL RDW Std Deviation (36.4-46.3) fL RDW Coeff of Atul (11.5-14.5) % Plt Count (130-400) K/uL MPV (9.4-12.4) fL Immature Gran % (Auto) % Neut % (Auto) % Lymph % (Auto) % [place] % (Auto) % Eos % (Auto) % Baso % (Auto) % Neut # (Auto) (1.40-6.50) K/uL Lymph # (Auto) (1.20-3.40) K/uL [place] # (Auto) (0.11-0.59) K/uL Eos # (Auto) (0.00-0.50) K/uL Baso # (Auto) (0.00-0.20) K/uL Immature Gran # (Auto) (0.01-0.20) K/uL Polychromasia Anisocytosis Macrocytosis Target Cells Stomatocytes PT (9.0-12.0) Seconds INR (0.9-1.1) VBG pH (7.36-7.41) VBG pCO2 (38-50) mmHg VBG pO2 mmHg VBG HCO3 mmol/L VBG O2 Saturation % VBG Base Excess mEq/L Sodium (136-145) mmol/L Potassium (3.5-5.1) mmol/L Chloride (98-107) mmol/L Carbon Dioxide (21-32) mmol/L Anion Gap (3-11) BUN (6-23) mg/dl Creatinine (0.6-1.2) mg/dl Est Cr Clr Drug Dosing ml/min Est GFR ( Amer) ml/min Est GFR (Non-Af Amer) ml/min BUN/Creatinine Ratio (10-20) Glucose (70-99(Fasting)) mg/dl Lactate 0.7 (0.4-2.0) mmol/L Calcium (8.6-10.3) mg/dl Magnesium (1.7-2.4) mg/dl Total Bilirubin (0.2-1.0) mg/dl AST (13-39) U/L ALT (7-52) U/L Alkaline Phosphatase (34-104) U/L Troponin I High Sens 423.2 H* D (0-14) pg/ml B-Natriuretic Peptide (0-100) pg/ml Total Protein (6.0-8.3) gm/dl Albumin (3.4-5.0) gm/dl Globulin (2.5-4.0) gm/dl Albumin/Globulin Ratio (0.9-2) Procalcitonin 0.20 (0-0.5) ng/ml Adenovirus (PCR) (NotDetected) B. pertussis DNA (PCR) (NotDetected) B.parapertussis DNA PCR (NotDetected) C. pneumoniae DNA (PCR) (NotDetected) Coronavirus OC43 (PCR) (NotDetected) Coronavirus HKU1 (PCR) (NotDetected) Coronavirus 229E (PCR) (NotDetected) SARS-CoV-2 (PCR) (NotDetected) Coronavirus NL63 (PCR) (NotDetected) Human Metapneumovir PCR (NotDetected) Influenza Type A (PCR) (NotDetected) Influenza Type B (PCR) (NotDetected) M. pneumoniae (PCR) (NotDetected) Parainfluenza 1 (PCR) (NotDetected) Parainfluenza 2 (PCR) (NotDetected) Parainfluenza 3 (PCR) (NotDetected) Parainfluenza 4 (PCR) (NotDetected) RSV (PCR) (NotDetected) Entero/Rhino (PCR) (NotDetected) Administered Medications Doxycycline Hyclate 100 mg/ (Dextrose) 100 mls @ 50 mls/hr IV NOW STA Stop: 08/23/23 12:05 Last Admin: 08/23/23 11:33 Dose: 50 mls/hr Documented By: JUAN DIEGO Discontinued Medications Acetaminophen (Acetaminophen 325 Mg Tab) 650 mg PO NOW STA Stop: 08/23/23 11:20 Last Admin: 08/23/23 11:36 Dose: 650 mg Documented By: JUAN DIEGO Ceftriaxone Sodium (Rocephin) 2,000 mg in 50 mls @ 100 mls/hr IV NOW STA Stop: 08/23/23 10:35 Last Infusion: 08/23/23 11:33 Dose: Infused Documented By: Admin: 08/23/23 11:03 Dose: 100 mls/hr Documented By: JUAN DIEGO Imaging Data Radiologist's Impression: Chest X-Ray 08/23/23 09:04 XR chest 1V portable HISTORY: Dyspnea COMPARISON: Chest CT 08/13/2023. FINDINGS: A left subclavian Port-A-Cath terminates at the SVC. The heart remains mildly enlarged. No pneumothorax. No acute fractures. A moderate left pleural effusion remains unchanged. There is a trace right pleural effusion again noted. Focal consolidation within the left upper lobe persists. This is better appreciated on the recent chest CTA. There is mild central pulmonary vascular congestion without overt edema. No new focal lung consolidations identified. IMPRESSION: 1. No change in the moderate left pleural effusion. 2. Cardiomegaly and mild pulmonary vascular congestion. 3. Left upper lobe consolidation persists. ACT 112: Negative or not required by law. Electronically signed by: Sabino Chua M.D. 08/23/2023 9:59 AM Hip/Pelvis X-Ray 08/23/23 09:04 XR hip LT 2V w pelvis CLINICAL HISTORY: L hip pain s/p fall from standing COMPARISON STUDY: PET CT 06/27/2023. FINDINGS: There is an acute nondisplaced fracture within the left inferior pubic ramus. Probable nondisplaced fracture within the left superior pubic ramus. No fracture or dislocation within the left femur. The right hip is intact. Vascular calcifications are noted. IMPRESSION: 1. Acute nondisplaced left pubic ring fracture. 2. No fracture or dislocation within the left femur. ACT 112: Negative or not required by law. Electronically signed by: Sabino Chua M.D. 08/23/2023 10:[address] 08/23/23 09:[address] DOSE: 1046.25 mGy.cm HISTORY: fall from standing; on xarelto TECHNIQUE: Multiaxial CT images of the cervical spine were performed and reformatted in the sagittal and coronal plane without the use of contrast. A dose lowering technique was utilized adhering to the principles of ALARA. COMPARISON: Chest CT 08/13/2023. FINDINGS: No acute fracture or subluxation within the cervical spine. Prevertebral soft tissues and the C1-C2 interval are intact. No pneumothorax. Emphysema again noted. Mild inferior endplate compression deformities at C6 and C7 again noted. These are likely subacute to chronic. There is also a moderate anterior wedge-shaped compression deformity at T3, unchanged. This is also likely subacute to chronic. IMPRESSION: 1. No acute fracture or subluxation within the cervical spine. 2. [id number] compression deformities at C6, C7, and T3 remain unchanged. These are likely subacute to chronic. ACT 112: Negative or not required by law. Electronically signed by: Sabino Chua M.D. 08/23/2023 10:[address] 08/23/23 09:11 CT head/brain wo con CLINICAL HISTORY: 77 years-old Female with fall from standing; on xarelto. Acute head trauma status post fall TECHNIQUE: Multiple axial CT images of the head were obtained without contrast. A dose lowering technique was utilized adhering to the principles of ALARA. COMPARISON: CT cervical spine of same day, brain MRI 03/29/2023 FINDINGS: No acute intracranial hemorrhage, midline shift, intracranial mass, hydrocephalus, territorial ischemia or abnormal extra-axial collection. Involutional changes with chronic microvascular ischemic disease. The calvarium is intact. The paranasal sinuses, mastoid air cells, and middle ear cavities are clear. IMPRESSION: No acute intracranial abnormality or calvarial fracture. ACT 112: Negative or not required by law. The above report was generated using voice recognition software. It may contain grammatical, syntax or spelling errors. Electronically signed by: Christian Salas M.D. 08/23/2023 10:22 AM Discharge Plan Visit Data Chief Complaint: Shortness of Breath/Dyspnea ED Provider: Alexandria Haque Discharge Problem: Acute hypoxemic respiratory failure, Pneumonia, Non-ST elevation AL (NSTEMI), Elevated brain natriuretic peptide (BNP) level, Closed fracture of left inferior pubic ramus, Acute pain of left hip, Fall from standing, Shortness of breath Forms Stand Alone Forms: My [facility] [employer] Prescriptions Prescriptions: No Action cholecalciferol (vitamin D3) 25 mcg (1,000 unit) capsule 25 mcg PO DAILY mecobalamin (vitamin B12) 1,000 mcg tablet,disintegrating 1,000 mcg sublingual DAILY Rx Instructions: place tablet under tongue and allow to dissolve for at least30 secs before swallowing (DME) nebulizers Misc See Rx Instructions .Route Qty: 1 0RF Rx Instructions: nebulizer and nebulizer kits/supplies ANNALISA-99 amiodarone 200 mg tablet 200 mg PO DAILY Qty: 90 3RF folic acid 1 mg tablet 1 mg PO QPM Qty: 30 5RF olanzapine 5 mg tablet 5 mg PO QPM Qty: 30 5RF prednisone 10 mg tablet 10 mg PO DAILY Qty: 30 1RF sertraline 100 mg tablet 100 mg PO DAILY Qty: 90 1RF sertraline 25 mg tablet 25 mg PO HS Qty: 90 1RF Rx Instructions: To be taken in addition to your 100mg tablet Breztri Aerosphere 160-9-4.8 mcg/actuation HFA aerosol inhaler 2 inh inhalation BID Qty: 10.7 5RF Rx Instructions: Family will bring from home. trazodone 50 mg tablet 100 mg PO HS Qty: 180 1RF Gemtesa 75 mg tablet 75 mg PO DAILY Qty: 90 3RF senokot gummies 8.6 mg PO UD PRN (Reason: Constipation) Caltrate 600-D Plus Minerals 600 mg calcium- 800 unit-50 mg Tablet 1 tab PO BID Qty: 60 0RF furosemide 20 mg tablet 20 mg PO QAM PRN (Reason: Other) docusate sodium [Colace] 100 mg capsule 100 mg PO BID polyethylene glycol 3350 [Miralax] 17 gram/dose powder 17 g PO DAILY PRN (Reason: Constipation) ondansetron HCl 8 mg tablet 8 mg PO Q8H PRN (Reason: Nausea) oxycodone 5 mg tablet 0 mg PO Q8H PRN (Reason: Pain) Rx Instructions: Per med list from preferred pharmacy, this medication is currently on hold. Original directions are 5mg by mouth every 8 hours as needed for pain lidocaine 5 % adhesive patch,medicated 0 patch transdermal Q24H PRN (Reason: Other) Hold Instructions: Home Medication placed on hold at Doctor's office Rx Instructions: Per med list from preferred pharmacy, this medication is currently on hold. Original directions are 1 patch topically every 24 hours diazepam 2 mg tablet 2 mg PO BID PRN (Reason: sedation) Qty: 60 0RF magnesium 30 mg Tablet 30 mg PO DAILY omeprazole 40 mg Capsule,Delayed Release(Dr/Ec) 40 mg PO DAILY Xarelto 20 mg tablet 20 mg PO QDD Rx Instructions: must administer with evening meal metoprolol tartrate 25 mg Tablet 12.5 mg PO BID 30 Days Qty: 30 0RF ipratropium-albuterol 0.5 mg-3 mg(2.5 mg base)/3 mL solution for nebulization 3 ml INHALATION Q6 PRN (Reason: Shortness Of Breath Or Wheezing) Rx Instructions: TAKES BID & PRN melatonin 10 mg Tablet 10 mg PO HS acetaminophen [Tylenol Extra Strength] 500 mg tablet 1,000 mg PO .BID-TID Referrals Referrals: Pro,Chandan Cassidy MD [Primary Care Provider] -
[2023-08-23 09:26] LABS: HCO3 VBG 39 mmol/L; Oxygen Saturation VBG < 60.0 %; PCO2 VBG 64 mmHg (38-50); PO2 VBG 33 mmHg; pH VBG 7.39 (7.36-7.41)
[2023-08-23 09:32] LABS: Basophils # (auto) 0.02 K/uL (0.00-0.20); Basophils % (auto) 0.1 %; Eosinophils # (auto) 0.03 K/uL (0.00-0.50); Eosinophils % (auto) 0.2 %; Hemoglobin 9.2 g/dl (12.0-16.0); Immature Granulocytes # (auto) 0.18 K/uL (0.01-0.20); Immature Granulocytes % (auto) 1.2 %; Lymphocytes # (auto) 0.68 K/uL (1.20-3.40); Lymphocytes % (auto) 4.5 %; Mean Corpuscular Hemoglobin 34.1 pg (25.0-34.0); Mean Corpuscular Hgb Conc 30.7 g/dL (32.0-36.0); Mean Corpuscular Volume 111.1 fL (80.0-100.0); Mean Platelet Volume 9.3 fL (9.4-12.4); Monocytes % (auto) 7.2 %; Neutrophils # (auto) 13.21 K/uL (1.40-6.50); Neutrophils % (auto) 86.8 %; Platelet Count 179 K/uL (130-400); RDW Coefficient of Variation 15.1 % (11.5-14.5); RDW Standard Deviation 61.5 fL (36.4-46.3); White Blood Count 15.22 K/ul (4.8-10.8)
[2023-08-23 09:48] LABS: Albumin Globulin Ratio 1.3 (0.9-2); Albumin Level 3.1 gm/dl (3.4-5.0); BUN Creatinine Ratio 14.3 (10-20); Bilirubin,Total 0.4 mg/dl (0.2-1.0); Calcium 8.7 mg/dl (8.6-10.3); Creatinine Clr Calc Pharmacy 42.7 ml/min; Est GFR (African American) 63.6 ml/min; Est GFR (Non-African American) 54.9 ml/min; Globulin 2.3 gm/dl (2.5-4.0); Magnesium 1.9 mg/dl (1.7-2.4); Potassium 3.8 mmol/L (3.5-5.1); Total Protein 5.4 gm/dl (6.0-8.3)
[2023-08-23 09:53] LABS: INR 1.1 (0.9-1.1); Prothrombin Time 12.4 Seconds (9.0-12.0)
--- NOTE | 2023-08-23 10:00 | XRay Report ---
XR chest 1V portable HISTORY: Dyspnea COMPARISON: Chest CT 08/13/2023. FINDINGS: A left subclavian Port-A-Cath terminates at the SVC. The heart remains mildly enlarged. No pneumothorax. No acute fractures. A moderate left pleural effusion remains unchanged. There is a trac e right pleural effusion again noted. Focal consolidation within the left upper lobe persists. This i s better appreciated on the recent chest CTA. There is mild central pulmonary vascular congestion wit hout overt edema. No new focal lung consolidations identified. IMPRESSION: 1. No change in the moderate left pleural effusion. 2. Cardiomegaly and mild pulmonary vascular congestion. 3. Left upper lobe consolidation persists. ACT 112: Negative or not required by law. Electronically signed by: Sabino Chua M.D. 08/23/2023 9:59 AM
--- NOTE | 2023-08-23 10:03 | XRay Report ---
XR hip LT 2V w pelvis CLINICAL HISTORY: L hip pain s/p fall from standing COMPARISON STUDY: PET CT 06/27/2023. FINDINGS: There is an acute nondisplaced fracture within the left inferior pubic ramus. Probable nond isplaced fracture within the left superior pubic ramus. No fracture or dislocation within the left fe mur. The right hip is intact. Vascular calcifications are noted. IMPRESSION: 1. Acute nondisplaced left pubic ring fracture. 2. No fracture or dislocation within the left femur. ACT 112: Negative or not required by law. Electronically signed by: Sabino Chua M.D. 08/23/2023 10:01 AM
[2023-08-23 10:16] LABS: Anisocytosis Present; Macrocytosis Present; Polychromasia 1+; Stomatocytes 1+; Target Cells 1+
[2023-08-23 10:16] LABS: Adenovirus PCR Not Detected (NotDetected); Bordetella parapertussis PCR Not Detected (NotDetected); Bordetella pertussis PCR Not Detected (NotDetected); Chlamydia pneumoniae PCR Not Detected (NotDetected); Coronavirus 229E PCR Not Detected (NotDetected); Coronavirus CoV-2 (COVID19)PCR Not Detected (NotDetected); Coronavirus HKU1 PCR Not Detected (NotDetected); Coronavirus NL63 PCR Not Detected (NotDetected); Coronavirus OC43PCR Not Detected (NotDetected); Human Metapneumovirus PCR Not Detected (NotDetected); Influenza A PCR Not Detected (NotDetected); Influenza B PCR Not Detected (NotDetected); Mycoplasma pneumoniae PCR Not Detected (NotDetected); Parainfluenza Virus 1 PCR Not Detected (NotDetected); Parainfluenza Virus 2 PCR Not Detected (NotDetected); Parainfluenza Virus 3 PCR Not Detected (NotDetected); Parainfluenza Virus 4 PCR Not Detected (NotDetected); Respiratory Syncytial VirusPCR Not Detected (NotDetected); Rhinovirus/Enterovirus PCR Not Detected (NotDetected)
--- NOTE | 2023-08-23 10:24 | CT Scan Report ---
CT head/brain wo con CLINICAL HISTORY: 77 years-old Female with fall from standing; on xarelto. Acute head trauma status post fall TECHNIQUE: Multiple axial CT images of the head were obtained without contrast. A dose lowering tech nique was utilized adhering to the principles of ALARA. COMPARISON: CT cervical spine of same day, brain MRI 03/29/2023 FINDINGS: No acute intracranial hemorrhage, midline shift, intracranial mass, hydrocephalus, territorial ischem ia or abnormal extra-axial collection. Involutional changes with chronic microvascular ischemic disea se. The calvarium is intact. The paranasal sinuses, mastoid air cells, and middle ear cavities are clear . IMPRESSION: No acute intracranial abnormality or calvarial fracture. ACT 112: Negative or not required by law. The above report was generated using voice recognition software. It may contain grammatical, syntax o r spelling errors. Electronically signed by: Christian Salas M.D. 08/23/2023 10:22 AM
--- NOTE | 2023-08-23 10:29 | CT Scan Report ---
CERVICAL SPINE CT CT DOSE: 1046.25 mGy.cm HISTORY: fall from standing; on xarelto TECHNIQUE: Multiaxial CT images of the cervical spine were performed and reformatted in the sagittal and coronal plane without the use of contrast. A dose lowering technique was utilized adhering to th e principles of ALARA. COMPARISON: Chest CT 08/13/2023. FINDINGS: No acute fracture or subluxation within the cervical spine. Prevertebral soft tissues and t he C1-C2 interval are intact. No pneumothorax. Emphysema again noted. Mild inferior endplate compress ion deformities at C6 and C7 again noted. These are likely subacute to chronic. There is also a moder ate anterior wedge-shaped compression deformity at T3, unchanged. This is also likely subacute to chr onic. IMPRESSION: 1. No acute fracture or subluxation within the cervical spine. 2. [id number] compression deformities at C6, C7, and T3 remain unchanged. These are likely suba cute to chronic. ACT 112: Negative or not required by law. Electronically signed by: Sabino Chua M.D. 08/23/2023 10:27 AM
--- NOTE | 2023-08-23 10:33 | History & Physical Report ---
Date of Service August 23, 2023 Assessment & Plan (1) Primary small cell malignant neoplasm of lung, stage 4: Plan: Note: as patient became increasing hypotensive in the ED, discussions were had with the patient and patient's daughter. It was ultimately determined that she would prefer to be admitted on comfort measures only. Please see Dr. Lockwood's attestation for any changes to treatment plan. Palliative care, not currently on hospice Oncology consulted (2) Fracture of pubis without disruption of pelvic ring: Plan: Patient sustained ground-level fall at 0500 on 08/22 Struck his left hip and left neck; no head strike; no LOC; on Xarelto Patient was not using walker/cane at the time Head/cervical spine CT revealed no acute findings Hip and pelvic x-ray revealed acute nondisplaced left pubic ring fracture Will hold Xarelto for now in the setting of acute fall/pelvic ring fracture Acetaminophen 1000 mg p.o. q8h for pain Oxycodone 5-10 mg p.o. q6h as needed for breakthrough pain Activity: Bedrest for now PT/OT consulted A.m. CBC, BMP, mag (3) Acute and chronic respiratory failure with hypoxia: Plan: Patient is at 2 L NC chronically at baseline, but has required increased oxygen this past week up to 34 L SOB both at rest, with exertion, and when laying flat on back CXR revealed persistent YUMI consolidation; recent [facility] admissions for pneumonia Procalcitonin negative Leukocytosis at 15.22 with neutrophil predominance Will reach out to pulmonology to determine if this is true pneumonia versus primary malignant process (4) Pneumonia: Plan: Recent [facility] admission from 07/22-07/30 for sepsis pneumonia; patient received full course of Zosyn and doxycycline Concern for recurrence given YUMI consolidation and leukocytosis Blood cultures drawn in the ED Patient received Rocephin and doxycycline in the ED Will cover with azithromycin 500 mg IV; QTc 526 Patient's QTc is elongated, will provide additional magnesium supplementation Azithromycin recommended given recent course of doxycycline (5) Megaloblastic anemia: Plan: Chronic; hemoglobin 9.2 and MCV 111.1 on arrival No signs of active bleeding on clinical exam Will recheck H&H in the setting of acute trauma (6) Elevated troponin: Plan: Troponin elevated at 253-->423 on arrival Trend q6h x 3 Clinically, patient denies chest pain, left shoulder/arm/jaw pain or pressure, or pleuritic CP Continuous telemetry monitoring (7) Paroxysmal atrial fibrillation: Plan: Not in A-fib on arrival; hold Xarelto for now in setting of acute trauma (as above) Continue metoprolol, amiodarone (8) Tobacco abuse: Plan: History of tobacco use; quit 1 year ago (9) Polymyalgia rheumatica: Plan: Patient is normally on prednisone 10 mg daily Mildly hypotensive in the ED Random cortisol ordered, pending We will double dose of prednisone to 20 mg daily in the event of adrenal insufficiency (10) Pulmonary cachexia due to chronic obstructive pulmonary disease: (11) (HFpEF) heart failure with preserved ejection fraction: Plan Disposition: Admit to PCU telemetry DNR/DNI Regular diet VTE PPx: Will hold Xarelto for 24 hours in the setting of fall; can restart pending morning labs History of Present Illness Chief Complaint: Fall, SOB/Dyspnea Primary Care Provider: Chandan Bro MD Carla is a 77-year-old female with PMH of primary small cell lung cancer stage IV with mets to liver, paroxysmal A-fib (on Xarelto), HTN, urinary continence, BMI, GERD, HFpEF, T2DM, tobacco use, and COPD. She presented via EMS for worsening SOB and a mechanical fall from standing position on 08/22. Patient reports that she fell around 5 AM, and was not using any ambulatory assist devices at the time (such as a walker or cane). Patient's daughter/POA (Mei) is at the bedside and provides additional history. Believes that she might of been groggy from sleep. The patient fell and hit her left hip and left lower neck; no head strike. She denies feeling dizzy/lightheadedness prior to fall. No tripping. No LOC. Patient is on Xarelto for A-fib. Her last fall prior to this was over a year ago. Daughter believes she might of been unsteady due to her several recent bouts of pneumonia. On arrival, patient endorses 8/10 left hip pain. She describes it as sharp, stabbing, and constant. Worse with movement. She did not take any pain medications before coming in. The only medication she has had today are amiodarone, Gemtesa, Mucinex DM, and Lasix 20 mg. No recent change in medications besides starting Lasix for fluid overload in her heart/lungs/legs. Patient normally takes her Xarelto in the afternoons and has not had it today yet. Patient notes that she is currently following with palliative care for her lung cancer. She endorses SOB both at rest and with exertion, but is mainly worse with exertion. She notes that anxiety induces her breathing problems, and they are worse when she is hyperventilating. Breathing is also worse when she lies flat on her back. No history of MIs. Patient uses supplemental oxygen at baseline; 2 LNC at home. However, she has been requiring 34 L because of worsening breathing the past few days. Patient is a former tobacco cigarette smoker, but quit 1 year ago. No recent alcohol use. Patient is at SpO2 92% on 4L NC. ED course: Rocephin 2000 g IV Doxycycline 100 mg IV ROS: Patient endorses wet cough (not productive as she can't bring it up), pain in left hip, SOB at rest, with exertion, and when lying flat. Patient denies fever, chills, night-sweats, dizziness, lightheadedness, VALLECILLO, changes in vision, chest pain, pain/pressure in the left shoulder/arm/jaw, chest palpitations, pleuritic CP, hemoptysis, abdominal pain, N/V/D, changes in urinary/bowel habits, burning with urination, blood in the urine/stool, or numbness/tingling in the left leg or arms. Note: please see Dr. Lockwood's attestation for additional changes to HPI / treatment plan. Allergies Allergy/AdvReac Type Severity Reaction Status Date / Time castor oil Allergy Severe "TAXANES" Verified 08/07/23 15:31 CAUSE DYSPNEA, RASH, ELEVATED BP docetaxel [From Taxotere] Allergy Severe "TAXANES" Verified 08/07/23 15:31 CAUSE DYSPNEA, RASH, ELEVATED BP paclitaxel Allergy Severe "TAXANES" Verified 08/07/23 15:31 CAUSE DYSPNEA, RASH, ELEVATED BP trimethoprim [From Bactrim] Allergy Severe Anaphylaxis Verified 08/07/23 15:31 Iodinated Contrast Media Allergy Intermediate HIVES/ITCHI Verified 08/07/23 15:31 NG nitrofurantoin Allergy Intermediate CHEST Verified 08/07/23 15:31 PAIN, DYSPNEA Sulfa (Sulfonamide Allergy Intermediate HIVES, Verified 08/07/23 15:31 Antibiotics) ITCHINESS, SHORTNESS OF BREATH codeine AdvReac Intermediate COLD Verified 08/07/23 15:31 SWEAT, THINGS START SPINNING, NAUSEA phenazopyridine AdvReac Intermediate N/V Verified 08/07/23 15:31 Home Medications Medication Instructions Recorded Confirmed Type cholecalciferol (vitamin D3) 25 25 mcg PO DAILY 12/01/21 08/23/23 History mcg (1,000 unit) capsule nebulizers #1 ea 12/05/21 08/07/23 Rx calcium 600 mg-D3 800 unit-mag11 1 tab PO BID #60 tabs 04/27/22 08/23/23 Rx 50 ce-scao-sxrkqt-beulah-s.borat tablet (Caltrate 600-D Plus Minerals) mecobalamin (vitamin B12) 1,000 1,000 mcg sublingual DAILY 10/26/22 08/23/23 History mcg disintegrating tablet,sublingual docusate sodium 100 mg capsule 100 mg PO BID Constipation 01/03/23 08/23/23 History (Colace) polyethylene glycol 3350 17 17 g PO DAILY PRN Constipation 01/03/23 08/23/23 History gram/dose oral powder (Miralax) ondansetron HCl 8 mg tablet 8 mg PO Q8H PRN Nausea 01/22/23 08/23/23 History oxycodone 5 mg tablet 0 mg PO Q8H PRN Pain 01/22/23 08/23/23 History lidocaine 5 % topical patch 0 patch transdermal Q24H PRN Other 02/28/23 08/23/23 History diazepam 2 mg tablet 2 mg PO BID PRN sedation #60 tabs 03/09/23 08/23/23 Rx amiodarone 200 mg tablet 200 mg PO DAILY #90 tabs 05/17/23 08/23/23 Rx furosemide 20 mg tablet 20 mg PO QAM PRN Other 05/19/23 08/23/23 History acetaminophen 500 mg tablet 1,000 mg PO .BID-TID 06/11/23 08/23/23 History (Tylenol Extra Strength) ipratropium 0.5 mg-albuterol 3 mg 3 ml inhalation Q6 PRN Shortness 06/11/23 08/23/23 History (2.5 mg base)/3 mL nebulization Of Breath Or Wheezing soln melatonin 10 mg tablet 10 mg PO HS 06/11/23 08/23/23 History magnesium 30 mg tablet 30 mg PO DAILY 06/22/23 08/23/23 History folic acid 1 mg tablet 1 mg PO QPM #30 tabs 06/27/23 08/23/23 Rx olanzapine 5 mg tablet 5 mg PO QPM #30 tabs 06/27/23 08/23/23 Rx prednisone 10 mg tablet 10 mg PO DAILY #30 tabs 06/28/23 08/23/23 Rx sertraline 100 mg tablet 100 mg PO DAILY #90 tabs 07/09/23 08/23/23 Rx sertraline 25 mg tablet 25 mg PO HS #90 tabs 07/09/23 08/23/23 Rx budesonide 160 mcg-glycopyr 9 2 inh inhalation BID #10.7 grams 07/20/23 08/23/23 Rx mcg-formot 4.8 mcg/actuation HFA inhaler (Breztri Aerosphere) omeprazole 40 mg capsule,delayed 40 mg PO DAILY 07/23/23 08/23/23 History release rivaroxaban 20 mg tablet (Xarelto) 20 mg PO QDD 07/23/23 08/23/23 History metoprolol tartrate 25 mg tablet 12.5 mg (1/2 x 25 mg) PO BID 1 07/31/23 08/23/23 Rx month #30 tabs senokot gummies 8.6 mg PO UD PRN Constipation 08/02/23 08/23/23 History trazodone 50 mg tablet 100 mg (2 x 50 mg) PO HS #180 tabs 08/15/23 08/23/23 Rx vibegron 75 mg tablet (Gemtesa) 75 mg PO DAILY #90 tabs 08/23/23 08/23/23 Rx Past Med/Surg History Medical History (Updated 08/23/23 @ 11:55 by Sabino Cooney PA-C) (HFpEF) heart failure with preserved ejection fraction Sepsis Pulmonary cachexia due to chronic obstructive pulmonary disease Weakness generalized Muscular deconditioning SIADH (syndrome of inappropriate ADH production) Stress-induced cardiomyopathy Anteroapical myocardial infarction Pulmonary embolism Carcinoma in situ of bladder Anxiety about health Anxiety associated with cancer diagnosis Depression Declining performance status Dyspnea and respiratory abnormalities Anemia Dysphagia Primary small cell malignant neoplasm of lung, stage 4 Acute kidney injury Hypomagnesemia Non-ST elevation ME (NSTEMI) Acute UTI (urinary tract infection) Cardiomyopathy Paroxysmal atrial fibrillation Hyponatremia Breast cancer DVT (deep venous thrombosis) (10/2022) LFTs abnormal Pneumonia Liver lesion Excessive cerumen in both ear canals Anxiety Insomnia Urinary incontinence Chronic hypoxemic respiratory failure Chronic obstructive pulmonary disease Hypomagnesemia Anticoagulant long-term use UTI (urinary tract infection) Chronic respiratory failure with hypoxia Polymyalgia rheumatica Small cell lung cancer GERD (gastroesophageal reflux disease) Pancytopenia due to antineoplastic chemotherapy Ex-smoker Lower extremity edema Chronic dyspnea Small cell lung cancer Malignant neoplasm of lung Bronch with biopsy on 11/15/21 Hearing deficit cannot afford hearing aids Vertebral fracture LUMBAR AND THORACIC Osteoporosis Tremor RIGHT HAND Migraine HX Compression fracture of L1 vertebra (08/15/21) Chronic Endometrial thickening on ultrasound Ureteral tumor Port-A-Cath in place Liver abscess History of diverticulitis Hx of bladder cancer HAD BCG INSTILLATION - DX: 2012 History of liver disease 03/2019 [facility] FOR LIVER ABSCESS- GIVEN ABXS X MONTHS- FOLLOWING WITH [facility] FOR MONITORING -RECENT CT SCAN 06/16/19- SHOWS ABSCESS TO BE DECREASED TO 3.5CM (SURGEON IS AWARE) Asthma (04/25/12) Stable and controlled Diabetes mellitus, type 2 NIDDM- WELL CONTROLLED AND STABLE History of breast cancer RIGHT S/P LUMPECTOMY/CHEMO/RADATION (2009)- STABLE AT THIS TIME Left rib fracture (2016) Surgical History S/P ablation of atrial flutter History of bronchoscopy 11/15/21 Nausea and vomiting after administration of anesthetic agent H/O cystoscopy SEVERAL History of colonoscopy History of surgery LEFT CHEST PORT History of lumpectomy of right breast History of elbow surgery RIGHT History of arthroscopy B/L KNEE History of breast biopsy History of surgery TURBT X 2; TURBT, CYSTO, RIGHT RPG, STENT: 07/11/18: LMA#4 AT [facility] History of appendectomy History of cholecystectomy Family History Other Adopted Family history unknown Social History Smoking Status: Former smoker Tobacco Type: Cigarettes Cigarettes Per Day: Less than 1/2 PPD now;Smoked 50+yrs;; Second Hand Exposure: Yes; Do You Dip or Chew Tobacco: No; Hx Alcohol Use: No Hx Substance Use: No Preferred Language: Colombian Communication Ability: Effective Communication Tools: Other Visual Impairment: No Limitations Hearing Ability: Hard of Hearing Inspector And Unloader Required: No Beliefs That Will Affect Care: None marital status: Single Current Living Situation: Other Current Living Situation Comment: roomate current occupational status: retired Feels Safe at Home: Yes Childhood Exposure to Second-Hand Smoke: Yes Diet: regular caffeine: No during the past year weight has: remained stable Dental Care, Regularly: Yes Physical Activity Frequency: 1-2 Times per Week Seatbelt Use: always Sunscreen Use: Yes Assistive Devices: Bedside Commode, Hospital Bed, Oxygen - Continuous and Wheelchair Review of Systems Review of Systems: See HPI above Physical Exam Physical Exam: General: no acute distress; pleasant affect; nontoxic appearing; cachectic; cooperative; SpO2 94% on 4 LNC HEENT: Purple bruising under the left jaw; no scleral icterus; PERRLA; moist mucus membrane; vision intact; hard of hearing Neck: supple; no lymphadenopathy; trachea midline; patient demonstrates ability to shrug shoulders against resistance and rotate neck without pain Skin: warm, dry without signs of tenting; no cyanosis; no rashes, bruising, lesions, or erythema noted CV: Port in left upper chest wall without signs of infection, erythema, or tana inage; chest wall NTP; RRR; S1/S2 normal; no murmurs/rubs/gallops; pulses intact and symmetric at radial, DP, and PT Lungs: no acute respiratory distress; symmetrical chest wall expansion; diminished breath sounds across all lung hernandez bilaterally, but mild wheezing in the YUMI ABD: Soft, NTP; BS present; no rebound/guarding; no distention MSK: Left hip NTP; pain to palpation of left pubic bones; no tics or fasciculations; +2 pitting edema in the LEs bilaterally, nonerythematous; patient demonstrates ability to wiggle toes, but is unable to plantarflex or dorsiflex left ankle due to pain Neuro: A&Ox3; normal mood and affect; fluent speech; no focal deficits; sensation grossly intact in the LEs b/l assessed via light touch at the feet and calves Results & Data Results & Data Vital Signs (Past 12 Hours) Vital Signs Temp Pulse Resp BP Pulse Ox O2 Del Method O2 Flow Rate 08/23/23 10:01 99 H 21 115/61 92 Nasal Cannula 4 08/23/23 09:05 108 H 08/23/23 09:00 103 H 23 130/76 95 Nasal Cannula 4 08/23/23 08:53 88 L Nasal Cannula 0 08/23/23 08:53 36.7 C 104 H 24 127/95 94 Nasal Cannula 4 Laboratory Results Abnormal lab results 08/23/23 08/23/23 Range/Units 09:08 09:09 WBC 15.22 H (4.8-10.8) K/ul RBC 2.70 L (4.20-5.40) M/uL Hgb 9.2 L (12.0-16.0) g/dl Hct 30.0 L (37.0-47.0) % MCV 111.1 H (80.0-100.0) fL MCH 34.1 H (25.0-34.0) pg MCHC 30.7 L (32.0-36.0) g/dL RDW Std Deviation 61.5 H (36.4-46.3) fL RDW Coeff of Atul 15.1 H (11.5-14.5) % MPV 9.3 L (9.4-12.4) fL Neut # (Auto) 13.21 H (1.40-6.50) K/uL Lymph # (Auto) 0.68 L (1.20-3.40) K/uL [place] # (Auto) 1.10 H (0.11-0.59) K/uL PT 12.4 H (9.0-12.0) Seconds VBG pCO2 64 H (38-50) mmHg Carbon Dioxide 38 H (21-32) mmol/L Anion Gap 2 L (3-11) Glucose 101 H (70-99(Fasting)) mg/dl Troponin I High Sens 253.0 H* (0-14) pg/ml B-Natriuretic Peptide 220 H (0-100) pg/ml Total Protein 5.4 L (6.0-8.3) gm/dl Albumin 3.1 L (3.4-5.0) gm/dl Globulin 2.3 L (2.5-4.0) gm/dl Diagnostic Findings Chest X-Ray 08/23/23 09:04 XR chest 1V portable HISTORY: Dyspnea COMPARISON: Chest CT 08/13/2023. FINDINGS: A left subclavian Port-A-Cath terminates at the SVC. The heart remains mildly enlarged. No pneumothorax. No acute fractures. A moderate left pleural effusion remains unchanged. There is a trace right pleural effusion again noted. Focal consolidation within the left upper lobe persists. This is better appreciated on the recent chest CTA. There is mild central pulmonary vascular congestion without overt edema. No new focal lung consolidations identified. IMPRESSION: 1. No change in the moderate left pleural effusion. 2. Cardiomegaly and mild pulmonary vascular congestion. 3. Left upper lobe consolidation persists. ACT 112: Negative or not required by law. Electronically signed by: Sabino Chua M.D. 08/23/2023 9:59 AM Hip/Pelvis X-Ray 08/23/23 09:04 XR hip LT 2V w pelvis CLINICAL HISTORY: L hip pain s/p fall from standing COMPARISON STUDY: PET CT 06/27/2023. FINDINGS: There is an acute nondisplaced fracture within the left inferior pubic ramus. Probable nondisplaced fracture within the left superior pubic ramus. No fracture or dislocation within the left femur. The right hip is intact. Vascular calcifications are noted. IMPRESSION: 1. Acute nondisplaced left pubic ring fracture. 2. No fracture or dislocation within the left femur. ACT 112: Negative or not required by law. Electronically signed by: Sabino Chua M.D. 08/23/2023 10:[address] 08/23/23 09:[address] DOSE: 1046.25 mGy.cm HISTORY: fall from standing; on xarelto TECHNIQUE: Multiaxial CT images of the cervical spine were performed and reformatted in the sagittal and coronal plane without the use of contrast. A dose lowering technique was utilized adhering to the principles of ALARA. COMPARISON: Chest CT 08/13/2023. FINDINGS: No acute fracture or subluxation within the cervical spine. Prevertebral soft tissues and the C1-C2 interval are intact. No pneumothorax. Emphysema again noted. Mild inferior endplate compression deformities at C6 and C7 again noted. These are likely subacute to chronic. There is also a moderate anterior wedge-shaped compression deformity at T3, unchanged. This is also likely subacute to chronic. IMPRESSION: 1. No acute fracture or subluxation within the cervical spine. 2. Phtr-dw-lhohhwcc compression deformities at C6, C7, and T3 remain unchanged. These are likely subacute to chronic. ACT 112: Negative or not required by law. Electronically signed by: Sabino Chua M.D. 08/23/2023 10:[address] 08/23/23 09:11 CT head/brain wo con CLINICAL HISTORY: 77 years-old Female with fall from standing; on xarelto. Acute head trauma status post fall TECHNIQUE: Multiple axial CT images of the head were obtained without contrast. A dose lowering technique was utilized adhering to the principles of ALARA. COMPARISON: CT cervical spine of same day, brain MRI 03/29/2023 FINDINGS: No acute intracranial hemorrhage, midline shift, intracranial mass, hydrocephalus, territorial ischemia or abnormal extra-axial collection. Involutional changes with chronic microvascular ischemic disease. The calvarium is intact. The paranasal sinuses, mastoid air cells, and middle ear cavities are clear. IMPRESSION: No acute intracranial abnormality or calvarial fracture. ACT 112: Negative or not required by law. The above report was generated using voice recognition software. It may contain grammatical, syntax or spelling errors. Electronically signed by: Christian Salas M.D. 08/23/2023 10:22 AM ECG Additional Comments: ECG on arrival revealed sinus tachycardia at 104 bpm; QTc 526 Code Status & VTE Plan Code Status DNR/DNI (discussed with both patient and patient's POA/daughter at the bedside) VTE Prophylaxis Plan VTE Prophylaxis will be ordered: Yes Supervising Physician Co-Signing Physician Notes Patient seen and examined, chart reviewed, case discussed with Sabino Cooney PA-C and I agree with the assessment and plan as above except as otherwise noted Labs and images reviewed 77-year-old female with a history of small cell stage IV lung cancer with hepatic metastasis, A-fib on Xarelto, COPD, type II DM who presents after a mechanical fall and with worsening shortness of breath/weakness. She has not had fever/chills/sweats. No chest pain or chest pressure. Feels globally weak and has had more of a nonproductive wet cough in the last few days. While in the ER she has a acute nondisplaced nonoperative left pubic ring fracture. She has a leukocytosis of 15 with neutrophilic predominance and NLR greater than 25. Troponin is elevated AT 253, BNP is 220 with recent measurements ranging from [id number]. Bio fire is negative. Chest x-ray shows left pleural effusion, cardiomegaly with mild pulmonary vascular congestion but no overt edema, and a left upper lobe persistent consolidation. Patient was recently discharged 2023 after an admission for sepsis due to pneumonia, she was initially on Vanco/Zosyn/doxycycline with vancomycin being discontinued after a MRSA swab returned negative. Sputum cultures were with no growth, patient was treated with IV hydrocortisone then stress dose prednisone due to baseline prednisone 10 mg requirements and clinically improved during her admission from 07/22 - 07/30. She was not prescribed additional antibiotics on discharge as she completed a total of 8 days while inpatient. Sx worsened over the last week after initial improvement with dc, although pt reports she never returned ot her baseline. Wet cough without ability to produce sputum, increasing SoB over several days, baseline O2 2L increased to 3-4L in the last week. No fever, chills, or sweats. No night sweats. She is returned to her 10 mg dose of home prednisone. She has some scant wheezing which is appreciated on auscultation of the left upper lobe, otherwise lungs are clear to auscultation. Procalcitonin was previously 23.6, this is normal on admission. She has been compliant with her Xarelto and does not have inspiratory/pleuritic pain Seen at the bedside with family present. While her shortness of breath has gradually worsened, she has not had fever/chills/sweats or infectious findings. Her left upper lobe consolidation persists; however her procalcitonin is normal. White blood cell count is elevated in the setting of prednisone use and a pubic ramus fracture. This could represent an infectious consolidation however with normal procalcitonin, no fever/chills, and otherwise improved biomarkers this is concerning for obstructive due to malignancy. Patient's immunotherapy has been held since her last pneumonia. Bio fire is negative. Will continue 24 hours of antibiotics. Reviewed with pulmonology. Atelectasis was present on prior PET scan, unlikely to improve. No sign of obstruction for which patient would benefit from bronch. Add azithromycin, flutter valve, hypertonic saline. Patient has a slight prolongation of QT, will follow send continue telemetry and optimize mag to goal of 2.0. Discontinue if QT progressively worsening. Patient fortunately is had overall decline with worsening metastasis, worsening functional status, and worsening oxygenation with enlargement/progression of her stage IV metastatic disease. Family aware of guarded prognosis, patient remains on palliative care but is not hospice at this time. Oncology following. On reassessment patient feels improved and had good blood pressure response to 250 bolus of fluid; although appears total body fluid overloaded with third spacing has dry mucous membranes and slightly low pressures with a BNP of the lowest it has ever been, no pulmonary edema, reduced p.o. intake. Patient feels overall washed out and very tired. Family is aware that her overall condition has declined. Would still like to follow-up with oncology and continue conservative treatment at this time. Given Carla's discomfort from her pubic ring fracture would like to trial both adjunct narcotic pain control for discomfort and Ativan for her severe baseline anxiety. They are aware that these have a risk of hypotension, sedation, confusion, and respiratory suppression however with her current condition feel that the potential benefits outweigh the risks. Have been following with palliative, and depending on her progression with supportive care with this episode may think about transition to focusing on comfort in the near future but would like to continue conservative care as discussed at this time. Agree with assessment and recommendations otherwise as above 1636hrs: Patient reassessed multiple times throughout the day. Clinically initially improved with small to 50 cc bolus and pressures improved from 80s90s to 1 teens systolic, was also given hydrocortisone for possible underlying adrenal insufficiency given chronic prednisone. Unfortunately patient with clinical deterioration through the afternoon. Remains afebrile, but with increasing oxygen require requirements and poor appearance, appears yoder and fatigued. Patient does not wish to have intubation or CPAP/BiPAP under any circumstances. Reviewed case with pulmonology. Effusion is likely malignant, patient is not likely to respond well to diuresis, and her lobar consolidation is likely compression related to malignancy. Patient could be supported with vasopressors however any treatments is unlikely to improve her chronic underlying baseline and progressive malignancy with known worsening hepatic metastasis. With a negative procalcitonin,, no fever/chills/sweats lower suspicion for pneumonia or serviceable etiology. Reviewed various options of care with Carla, her daughter, her son-in-law, and her roommate at the bedside. After extensive discussions family and Carla note that she was told that she might have 1 to 2 years, year ago and she would like to focus on the quality of her life. Her cancer has progressed despite multiple therapy agents and therapeutic switches, did not tolerate immunotherapy with complications of pneumonia, and has not seen imp rovement despite these treatments. With this in mind and her current level of illness, combined with the fact that she would not want positive pressure ventilation or intubation under any circumstances, reviewed comfort measures/hospice. Patient and family would like to switch to comfort measures to focus exclusively on the patient's quality of life and defer invasive treatments or attempted curative treatments that do not directly improve her symptoms, especially as multiple efforts at these types of treatments have already failed. Will defer all future lab draws, hemodynamic monitoring, and medications that are not bringing direct symptomatic benefit. May continue to use oxygen for comfort, will add adjunct Ativan/morphine to treat anxiety and pain; patient is aware that these are to treat her quality of life. If she is clinically stable enough to do so will transition to hospice at home; however given her deterioration and current appearance is possible that she could decline and passed within the hospital. Family is aware of this, and will continue to make decisions based on how she does on comfort measures overnight. Palliative care and oncology notified. PG Care Time/CCT Total # of Minutes Spent Total Time Spent with Patient: Total time spent is greater than 50% in coordination of care (as documented) at patient's floor/unit and/or counseling patient: [place] [address] INT INP/OBS CARE 3/75MIN Patient Type Established History Comprehensive Exam Comprehensive Medical Decision Making High Complexity Diagnoses Primary small cell malignant neoplasm of lung, stage 4 C34.90 Fracture of pubis without disruption of pelvic ring S32.509A Acute and chronic respiratory failure with hypoxia J96.21 Pneumonia J18.9 Laterality: unspecified laterality Lung location: unspecified part of lung Pneumonia type: due to unspecified organism Megaloblastic anemia D53.1 Elevated troponin R79.89 Paroxysmal atrial fibrillation I48.0 Tobacco abuse Z72.0 Polymyalgia rheumatica M35.3 Pulmonary cachexia due to chronic obstructive pulmonary disease R64; J44.9 (HFpEF) heart failure with preserved ejection fraction I50.30 (4) Pneumonia Laterality: unspecified laterality Lung location: unspecified part of lung Pneumonia type: due to unspecified organism Qualified Code(s): J18.9 - Pneumonia, unspecified organism
[2023-08-23] MEDS: cefTRIAXone SODIUM 2,000 MG/50 ML BAG IV STA (11:03)
[2023-08-23] MEDS: DOXYCYCLINE HYCLATE 100 MG in DEXTROSE 5% MINI-B 100 ML IV STA (11:33)
[2023-08-23] MEDS: ACETAMINOPHEN 325 MG TAB PO STA (11:36)
[2023-08-23] MEDS: PLASMA-LYTE A 500 ML IV ONE (13:05)
[2023-08-23] MEDS: AZITHROMYCIN 250 MG TAB PO ONE (13:54)
[2023-08-23] MEDS: LORazepam 0.5 MG TAB PO PRN (13:54)
[2023-08-23] MEDS: ALBUT/IPRATROP 3MG/0.5MG NEB 3 ML VIAL NEB PRN (14:24)
[2023-08-23 15:31] LABS: Base Excess ABG 8.3 mEq/L (-9-1.8); HCO3 ABG 37 mmol/L (19-24); PCO2 ABG 70 mmHg (35-46); PO2 ABG 87 mmHg (80-95); pH ABG 7.33 (7.35-7.45)
[2023-08-23 15:32] LABS: Allen Test Pos (Pos)
[2023-08-23 15:35] LABS: Hematocrit (blood only) 30.6 % (37.0-47.0); Hemoglobin 9.2 g/dl (12.0-16.0)
[2023-08-23] MEDS: HYDROCORTISONE SOD SUCCINATE 100 MG/2 ML VIAL IV STA (15:38)
[2023-08-23] MEDS: predniSONE 20 MG TAB PO STA (15:43)
--- NOTE | 2023-08-23 15:51 | Electrocardiogram Report ---
Test Reason : Blood Pressure : / mmHG Vent. Rate : 104 BPM Atrial Rate : 104 BPM P-R Int : 174 ms QRS Dur : 124 ms QT Int : 400 ms P-R-T Axes : 065 -68 066 degrees QTc Int : 526 ms Sinus tachycardia Right bundle branch block Left anterior fascicular block Bifascicular block Poor R wave progression, consider anterior VA vs. lead placement vs. LVH Abnormal ECG When compared with ECG of 23-JUL-2023 17:49, Sinus rhythm has replaced Atrial fibrillation Confirmed by Chandan Arrieta ([id number]) on 08/23/2023 3:51:47 PM Referred By: REFERRED SELF Confirmed By:Chandan Arrieta
--- NOTE | 2023-08-23 15:59 | XRay Report ---
XR chest 1V portable HISTORY: worsening hypoxia, ?pulm edema COMPARISON: Chest 08/23/2023. FINDINGS: No pneumothorax. The heart remains enlarged. Left subclavian Port-A-Cath which terminates i n the SVC. A small to moderate left pleural effusion and left basilar densities persist. Left upper l obe consolidation remains unchanged. There is mild interstitial pulmonary edema which has slightly pr ogressed. IMPRESSION: 1. Interval progression of the mild interstitial pulmonary edema. 2. Small to moderate left pleural effusion and left basilar densities persist. 3. Left upper lobe consolidation remains unchanged. ACT 112: Negative or not required by law. Electronically signed by: Sabino Chua M.D. 08/23/2023 3:58 PM
[2023-08-23] MEDS ORDERED: POLYETHYLENE (MIRALAX) 17 GM PACK PO PRN (16:00)
[2023-08-23] MEDS ORDERED: ALBUT/IPRATROP 3MG/0.5MG NEB 3 ML VIAL INH PRN (16:00)
[2023-08-23] MEDS ORDERED: oxyCODONE HCL IR 5 MG TAB (IMMEDIATE RELEASE) PO PRN ×2 (16:00)
[2023-08-23] MEDS ORDERED: LORazepam 0.5 MG in SYRINGE 0.25 ML IV PRN (16:31)
[2023-08-23] MEDS ORDERED: LORazepam 0.5 MG TAB PO PRN (16:31)
[2023-08-23] MEDS ORDERED: ONDANSETRON 4 MG OD TAB SL PRN (16:31)
[2023-08-23] MEDS: ACETAMINOPHEN 500 MG TAB PO SCH (18:08)
--- NOTE | 2023-08-23 18:21 | Oncology Consultation ---
Date of Consultation August 23, 2023 Assessment & Plan (1) Acute and chronic respiratory failure with hypoxia: (2) Fracture of pubis without disruption of pelvic ring: (3) Small cell lung cancer: Plan Discussed with patient and family at bedside today. They indicated that patient has decided to switch to supportive care/hospice. This is very reasonable given current poor performance status, aggressive small cell lung cancer and poor tolerance to chemotherapy. Oncology will sign off at this time. Please feel free to call if you have any further questions. History of Present Illness Reason for Consultation: Lung cancer Attending Physician: Richi Lockwood MD History of Present Illness Ms. Ward is a very pleasant 77-year-old female with history of multiple malignancies including breast cancer, bladder cancer and more recently extensive stage small cell lung cancer initially diagnosed in 2021 for which she has received multiple lines of treatment and was most recently on maintenance atezolizumab. She presented to the ER with left hip pain following fall and worsening shortness of breath. Imaging revealed nondisplaced left pubic ring fracture Allergies Allergy/AdvReac Type Severity Reaction Status Date / Time castor oil Allergy Severe "TAXANES" Verified 08/07/23 15:31 CAUSE DYSPNEA, RASH, ELEVATED BP docetaxel [From Taxotere] Allergy Severe "TAXANES" Verified 08/07/23 15:31 CAUSE DYSPNEA, RASH, ELEVATED BP paclitaxel Allergy Severe "TAXANES" Verified 08/07/23 15:31 CAUSE DYSPNEA, RASH, ELEVATED BP trimethoprim [From Bactrim] Allergy Severe Anaphylaxis Verified 08/07/23 15:31 Iodinated Contrast Media Allergy Intermediate HIVES/ITCHI Verified 08/07/23 15:31 NG nitrofurantoin Allergy Intermediate CHEST Verified 08/07/23 15:31 PAIN, DYSPNEA Sulfa (Sulfonamide Allergy Intermediate HIVES, Verified 08/07/23 15:31 Antibiotics) ITCHINESS, SHORTNESS OF BREATH codeine AdvReac Intermediate COLD Verified 08/07/23 15:31 SWEAT, THINGS START SPINNING, NAUSEA phenazopyridine AdvReac Intermediate N/V Verified 08/07/23 15:31 Home Medications Medication Instructions Recorded Confirmed Type cholecalciferol (vitamin D3) 25 25 mcg PO DAILY 12/01/21 08/23/23 History mcg (1,000 unit) capsule nebulizers #1 ea 12/05/21 08/07/23 Rx calcium 600 mg-D3 800 unit-mag11 1 tab PO BID #60 tabs 04/27/22 08/23/23 Rx 50 ih-yxgq-uhdepx-beulah-s.borat tablet (Caltrate 600-D Plus Minerals) mecobalamin (vitamin B12) 1,000 1,000 mcg sublingual DAILY 10/26/22 08/23/23 History mcg disintegrating tablet,sublingual docusate sodium 100 mg capsule 100 mg PO BID Constipation 01/03/23 08/23/23 History (Colace) polyethylene glycol 3350 17 17 g PO DAILY PRN Constipation 01/03/23 08/23/23 History gram/dose oral powder (Miralax) ondansetron HCl 8 mg tablet 8 mg PO Q8H PRN Nausea 01/22/23 08/23/23 History oxycodone 5 mg tablet 0 mg PO Q8H PRN Pain 01/22/23 08/23/23 History lidocaine 5 % topical patch 0 patch transdermal Q24H PRN Other 02/28/23 08/23/23 History diazepam 2 mg tablet 2 mg PO BID PRN sedation #60 tabs 03/09/23 08/23/23 Rx amiodarone 200 mg tablet 200 mg PO DAILY #90 tabs 05/17/23 08/23/23 Rx furosemide 20 mg tablet 20 mg PO QAM PRN Other 05/19/23 08/23/23 History acetaminophen 500 mg tablet 1,000 mg PO .BID-TID 06/11/23 08/23/23 History (Tylenol Extra Strength) ipratropium 0.5 mg-albuterol 3 mg 3 ml inhalation Q6 PRN Shortness 06/11/23 08/23/23 History (2.5 mg base)/3 mL nebulization Of Breath Or Wheezing soln melatonin 10 mg tablet 10 mg PO HS 06/11/23 08/23/23 History magnesium 30 mg tablet 30 mg PO DAILY 06/22/23 08/23/23 History folic acid 1 mg tablet 1 mg PO QPM #30 tabs 06/27/23 08/23/23 Rx olanzapine 5 mg tablet 5 mg PO QPM #30 tabs 06/27/23 08/23/23 Rx prednisone 10 mg tablet 10 mg PO DAILY #30 tabs 06/28/23 08/23/23 Rx sertraline 100 mg tablet 100 mg PO DAILY #90 tabs 07/09/23 08/23/23 Rx sertraline 25 mg tablet 25 mg PO HS #90 tabs 07/09/23 08/23/23 Rx budesonide 160 mcg-glycopyr 9 2 inh inhalation BID #10.7 grams 07/20/23 08/23/23 Rx mcg-formot 4.8 mcg/actuation HFA inhaler (Breztri Aerosphere) omeprazole 40 mg capsule,delayed 40 mg PO DAILY 07/23/23 08/23/23 History release rivaroxaban 20 mg tablet (Xarelto) 20 mg PO QDD 07/23/23 08/23/23 History metoprolol tartrate 25 mg tablet 12.5 mg (1/2 x 25 mg) PO BID 1 07/31/23 08/23/23 Rx month #30 tabs senokot gummies 8.6 mg PO UD PRN Constipation 08/02/23 08/23/23 History trazodone 50 mg tablet 100 mg (2 x 50 mg) PO HS #180 tabs 08/15/23 08/23/23 Rx vibegron 75 mg tablet (Gemtesa) 75 mg PO DAILY #90 tabs 08/23/23 08/23/23 Rx Patient History Medical History (Updated 08/23/23 @ 11:55 by Sabino Cooney PA-C) (HFpEF) heart failure with preserved ejection fraction Sepsis Pulmonary cachexia due to chronic obstructive pulmonary disease Weakness generalized Muscular deconditioning SIADH (syndrome of inappropriate ADH production) Stress-induced cardiomyopathy Anteroapical myocardial infarction Pulmonary embolism Carcinoma in situ of bladder Anxiety about health Anxiety associated with cancer diagnosis Depression Declining performance status Dyspnea and respiratory abnormalities Anemia Dysphagia Primary small cell malignant neoplasm of lung, stage 4 Acute kidney injury Hypomagnesemia Non-ST elevation AK (NSTEMI) Acute UTI (urinary tract infection) Cardiomyopathy Paroxysmal atrial fibrillation Hyponatremia Breast cancer DVT (deep venous thrombosis) (10/2022) LFTs abnormal Pneumonia Liver lesion Excessive cerumen in both ear canals Anxiety Insomnia Urinary incontinence Chronic hypoxemic respiratory failure Chronic obstructive pulmonary disease Hypomagnesemia Anticoagulant long-term use UTI (urinary tract infection) Chronic respiratory failure with hypoxia Polymyalgia rheumatica Small cell lung cancer GERD (gastroesophageal reflux disease) Pancytopenia due to antineoplastic chemotherapy Ex-smoker Lower extremity edema Chronic dyspnea Small cell lung cancer Malignant neoplasm of lung Bronch with biopsy on 11/15/21 Hearing deficit cannot afford hearing aids Vertebral fracture LUMBAR AND THORACIC Osteoporosis Tremor RIGHT HAND Migraine HX Compression fracture of L1 vertebra (08/15/21) Chronic Endometrial thickening on ultrasound Ureteral tumor Port-A-Cath in place Liver abscess History of diverticulitis Hx of bladder cancer HAD BCG INSTILLATION - DX: 2012 History of liver disease 03/2019 [facility] FOR LIVER ABSCESS- GIVEN ABXS X MONTHS- FOLLOWING WITH [facility] FOR MONITORING -RECENT CT SCAN 06/16/19- SHOWS ABSCESS TO BE DECREASED TO 3.5CM (SURGEON IS AWARE) Asthma (04/25/12) Stable and controlled Diabetes mellitus, type 2 NIDDM- WELL CONTROLLED AND STABLE History of breast cancer RIGHT S/P LUMPECTOMY/CHEMO/RADATION (2009)- STABLE AT THIS TIME Left rib fracture (2016) Surgical History S/P ablation of atrial flutter History of bronchoscopy 11/15/21 Nausea and vomiting after administration of anesthetic agent H/O cystoscopy SEVERAL History of colonoscopy History of surgery LEFT CHEST PORT History of lumpectomy of right breast History of elbow surgery RIGHT History of arthroscopy B/L KNEE History of breast biopsy History of surgery TURBT X 2; TURBT, CYSTO, RIGHT RPG, STENT: 07/11/18: LMA#4 AT [facility] History of appendectomy History of cholecystectomy Family History Other Adopted Family history unknown Social History Smoking Status: Former smoker Tobacco Type: Cigarettes Cigarettes Per Day: Less than 1/2 PPD now;Smoked 50+yrs;; Second Hand Exposure: Yes; Do You Dip or Chew Tobacco: No; Hx Alcohol Use: No Hx Substance Use: No Preferred Language: Thai Communication Ability: Effective Communication Tools: Other Visual Impairment: No Limitations Hearing Ability: Hard of Hearing Correspondence Specialist Required: No Beliefs That Will Affect Care: None marital status: Single Current Living Situation: Other Current Living Situation Comment: roomate current occupational status: retired Feels Safe at Home: Yes Childhood Exposure to Second-Hand Smoke: Yes Diet: regular caffeine: No during the past year weight has: remained stable Dental Care, Regularly: Yes Physical Activity Frequency: 1-2 Times per Week Seatbelt Use: always Sunscreen Use: Yes Assistive Devices: Bedside Commode, Hospital Bed, Oxygen - Continuous and Wheelchair Results & Data Vital Signs (Past 12 Hours) Vital Signs Temp Pulse Resp BP Pulse Ox Pulse Ox O2 Del Method 08/23/23 18:00 85 26 H 99 08/23/23 17:30 85 21 100 08/23/23 17:00 84 25 H 100 08/23/23 16:30 86 28 H 100 08/23/23 16:08 89 27 H 98 08/23/23 16:08 80/45 L 08/23/23 16:06 99 08/23/23 16:00 91 H 27 H 100 08/23/23 15:50 93 H 26 H 99 Oxymask 08/23/23 15:40 95 H 38 H 97 Oxymask 08/23/23 15:32 96 H 32 H 96 Oxymask 08/23/23 15:32 96/50 L 08/23/23 15:31 83/47 L 08/23/23 15:31 97 H 31 H 96 Oxymask 08/23/23 15:30 99 H 29 H 96 Oxymask 08/23/23 15:28 99 H 08/23/23 15:20 102 H 36 H 95 Oxymask 08/23/23 15:10 105 H 30 H 93 Oxymask 08/23/23 15:00 130/69 08/23/23 14:44 37.0 C 08/23/23 14:30 116 H 24 139/85 94 Oxymask 08/23/23 14:21 Oxymask 08/23/23 13:30 87 24 119/64 97 Nasal Cannula 08/23/23 13:11 84 20 103/61 100 Nasal Cannula 08/23/23 13:00 84 24 87/46 L 99 Nasal Cannula 08/23/23 12:00 88 16 94/48 L 98 Nasal Cannula 08/23/23 11:30 95 H 24 97/68 L 94 Nasal Cannula 08/23/23 11:12 96 H 21 115/49 L 98 Nasal Cannula 08/23/23 10:01 99 H 21 115/61 92 Nasal Cannula 08/23/23 09:05 108 H 08/23/23 09:00 103 H 23 130/76 95 Nasal Cannula 08/23/23 08:53 88 L Nasal Cannula 08/23/23 08:53 36.7 C 104 H 24 127/95 94 Nasal Cannula O2 Del Method O2 Flow Rate O2 Flow Rate 08/23/23 18:00 7 08/23/23 17:30 7 08/23/23 17:00 7 08/23/23 16:30 7 08/23/23 16:08 7 08/23/23 16:08 08/23/23 16:06 Oxymask 7 08/23/23 16:00 7 08/23/23 15:50 7 08/23/23 15:40 7 08/23/23 15:32 7 08/23/23 15:32 08/23/23 15:31 08/23/23 15:31 7 08/23/23 15:30 7 08/23/23 15:28 08/23/23 15:20 7 08/23/23 15:10 7 08/23/23 15:00 08/23/23 14:44 08/23/23 14:30 7 08/23/23 14:21 08/23/23 13:30 4 08/23/23 13:11 4 08/23/23 13:00 4 08/23/23 12:00 4 08/23/23 11:30 4 08/23/23 11:12 4 08/23/23 10:01 4 08/23/23 09:05 08/23/23 09:00 4 08/23/23 08:53 0 08/23/23 08:53 4
[2023-08-23] MEDS: SODIUM CHLOR 7% 4 ML NEB NEB SCH (19:22)
[2023-08-23] MEDS: FORMOTEROL 20 MCG/2 ML VIAL NEB SCH (19:22)
[2023-08-23] MEDS: BUDESONIDE 0.5 MG/2 ML VIAL (PULMICORT) NEB SCH (19:22)
[2023-08-23] MEDS: MoRPHine SULFATE 10 MG/0.5 ML UDP PO PRN (20:04)
[2023-08-23] MEDS: ONDANSETRON INJ 2 MG/ML 2 ML VIAL IV PRN (20:07)
[2023-08-23] MEDS: METOPROLOL TARTRATE 25 MG TAB PO SCH (20:56)
[2023-08-23] MEDS ORDERED: NON-FORMULARY MEDICATION (Budesonide-Glycopyr-Formoterol [Breztri Aerosphere] 160-9-4.8 mc INH SCH (21:00)
[2023-08-23] MEDS: MELATONIN 3 MG TAB PO SCH (21:18)
[2023-08-23] MEDS: OLANZapine 5 MG TABLET PO SCH (21:19)
[2023-08-23] MEDS: SERTRALINE HCL 50 MG TABLET PO SCH (21:20)
[2023-08-23] MEDS: traZODone HCL 100 MG TAB PO SCH (21:21)
[2023-08-23] MEDS: FOLIC ACID 1 MG TAB PO SCH (21:21)
[2023-08-23] MEDS: DOCUSATE SODIUM 100 MG CAP PO SCH (21:23)
[2023-08-24] MEDS ORDERED: PANTOprazole 40 MG TAB PO SCH (09:00)
[2023-08-24] MEDS ORDERED: NON-FORMULARY MEDICATION (Magnesium 30 mg Tablet) PO SCH (09:00)
[2023-08-24] MEDS ORDERED: AMIODARONE 200 MG TAB PO SCH (09:00)
[2023-08-24] MEDS ORDERED: AZITHROMYCIN 250 MG TAB PO SCH (09:00)
[2023-08-24] MEDS ORDERED: VIBEGRON 75 MG TAB PO SCH (09:00)
[2023-08-24] MEDS: SERTRALINE HCL 100 MG TABLET PO SCH (09:33)
[2023-08-24] MEDS: predniSONE 10 MG TABLET PO SCH (09:34)
[2023-08-24] MEDS: UMECLIDINIUM/VILANTEROL 62.5/25MCG 7 PUFFS/INHALER INH SCH (09:35)
[2023-08-24] MEDS: FLUTICASONE FUROATE 200MCG 14 PUFFS/INHALER INH SCH (09:35)
[2023-08-24] MEDS ORDERED: MoRPHine SULFATE 2 MG/ML CARP IV PRN (14:58)
[2023-08-24] MEDS ORDERED: LORazepam 0.5 MG TAB PO PRN (14:59)
[2023-08-24] MEDS ORDERED: ONDANSETRON 4 MG OD TAB SL PRN (14:59)
[2023-08-24] MEDS ORDERED: ONDANSETRON INJ 2 MG/ML 2 ML VIAL IV PRN (14:59)
[2023-08-24] MEDS: MoRPHine SULFATE 2 MG/ML CARP IV SCH (15:31)
--- NOTE | 2023-08-24 17:19 | Hospitalist Progress Note ---
Date of Service August 24, 2023 Assessment & Plan (1) Primary small cell malignant neoplasm of lung, stage 4: Plan: Patient is now comfort care Palliative care on board Appreciate oncology recommendation (2) Fracture of pubis without disruption of pelvic ring: Plan: Patient sustained ground-level fall at 0500 on 08/22 Struck his left hip and left neck; no head strike; no LOC; on Xarelto Patient was not using walker/cane at the time Head/cervical spine CT revealed no acute findings Hip and pelvic x-ray revealed acute nondisplaced left pubic ring fracture Will hold Xarelto for now in the setting of acute fall/pelvic ring fracture Acetaminophen 1000 mg p.o. q8h for pain Oxycodone 5-10 mg p.o. q6h as needed for breakthrough pain Activity: Bedrest for now Comfort care (3) Acute and chronic respiratory failure with hypoxia: Plan: Patient is at 2 L NC chronically at baseline, but has required increased oxygen this past week up to 34 L Comfort care, oxygen as needed for cough (4) Pneumonia: Plan: Comfort care (5) Megaloblastic anemia: Plan: Comfort care (6) Elevated troponin: Plan: Comfort care (7) Paroxysmal atrial fibrillation: Plan: Not in A-fib on arrival Discontinue metoprolol, amiodarone and Xarelto Comfort care (8) Tobacco abuse: Plan: History of tobacco use; quit 1 year ago (9) Polymyalgia rheumatica: Plan: Patient is normally on prednisone 10 mg daily Mildly hypotensive in the ED Comfort care (10) Pulmonary cachexia due to chronic obstructive pulmonary disease: (11) (HFpEF) heart failure with preserved ejection fraction: Plan Comfort care DNR/DNI Regular diet Admission and Anticipated Discharge Date Admission Date: August 23, 2023 Subjective Patient appears comfortable. Accompanied by her daughter at the bedside Review of Systems Review of Systems: All systems reviewed & are unremarkable except as noted in Subjective Physical Exam Physical Exam: General appearance: Patient appears comfortable. Results & Data Results & Data Vital Signs (Past 12 Hours) Vital Signs O2 Del Method 08/24/23 10:09 Nasal Cannula PG Care Time/CCT Total # of Minutes Spent Total Time Spent with Patient: Total time spent is greater than 50% in coordination of care (as documented) at patient's floor/unit and/or counseling patient: Coding Level of Care Code 66992 SUB INP/OBS CARE MIN Diagnoses Primary small cell malignant neoplasm of lung, stage 4 C34.90 Fracture of pubis without disruption of pelvic ring S32.509A Acute and chronic respiratory failure with hypoxia J96.21 Pneumonia J18.9 Laterality: unspecified laterality Lung location: unspecified part of lung Pneumonia type: due to unspecified organism Megaloblastic anemia D53.1 Elevated troponin R79.89 Paroxysmal atrial fibrillation I48.0 Tobacco abuse Z72.0 Polymyalgia rheumatica M35.3 Pulmonary cachexia due to chronic obstructive pulmonary disease R64; J44.9 (HFpEF) heart failure with preserved ejection fraction I50.30 (4) Pneumonia Laterality: unspecified laterality Lung location: unspecified part of lung Pneumonia type: due to unspecified organism Qualified Code(s): J18.9 - Pneumonia, unspecified organism
[2023-08-24] MEDS: MoRPHine SULFATE 2 MG/ML CARP IV PRN (22:57)
--- NOTE | 2023-08-24 23:09 | Palliative Care Consultation ---
Date of Consultation August 24, 2023 Assessment & Plan (1) Hip pain: (2) Weakness generalized: (3) Dyspnea and respiratory abnormalities: (4) Muscular deconditioning: (5) Hearing deficit: Hearing loss type: unspecified Laterality: bilateral Qualified Code(s): H91.93 - Unspecified hearing loss, bilateral (6) Anxiety about health: (7) Fall: (8) Pulmonary cachexia due to chronic obstructive pulmonary disease: (9) Closed fracture of left inferior pubic ramus: (10) (HFpEF) heart failure with preserved ejection fraction: (11) Pneumonia: Laterality: unspecified laterality Lung location: unspecified part of lung Pneumonia type: due to unspecified organism Qualified Code(s): J18.9 - Pneumonia, unspecified organism (12) Palliative care by specialist: Plan Met with Carla and family at bedside face to face x 30min She is transitioned to comfort care and does not want escalated care, aggressive interventions Unclear about goals for home vs SNF , notes that it is very hard for her to reposition, move or shift in bed so she is very worried about how this can be done at home. She would like pain and anxiety to be better controlled. She does not want a [facility] [facility] right now but would like scheduled opioid and anxiety meds for comfort. 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 Please don't hesitate to call or page with any additional concerns. Dr. Ana Armstorng DNP Director, Palliative Care History of Present Illness Reason for Consultation: [facility], comfort Attending Physician: Shakira Garcia MD History of Present Illness Carla is known to me from OP clinic and prior admissions long time hx COPD, breast cancer, bladder cancer; newer extensive stage small cell lung cancer initially diagnosed in 2021 s/p multiple lines of treatment/on maintenance atezolizumab. She presented to the ER with left hip pain following fall and worsening shortness of breath. Imaging revealed nondisplaced left pubic ring fracture s/p fall at home +frailty She has elected comfort care and symptom mgt, no escalation daughter and son in law at bedside Allergies Allergy/AdvReac Type Severity Reaction Status Date / Time castor oil Allergy Severe "TAXANES" Verified 08/07/23 15:31 CAUSE DYSPNEA, RASH, ELEVATED BP docetaxel [From Taxotere] Allergy Severe "TAXANES" Verified 08/07/23 15:31 CAUSE DYSPNEA, RASH, ELEVATED BP paclitaxel Allergy Severe "TAXANES" Verified 08/07/23 15:31 CAUSE DYSPNEA, RASH, ELEVATED BP trimethoprim [From Bactrim] Allergy Severe Anaphylaxis Verified 08/07/23 15:31 Iodinated Contrast Media Allergy Intermediate HIVES/ITCHI Verified 08/07/23 15:31 NG nitrofurantoin Allergy Intermediate CHEST Verified 08/07/23 15:31 PAIN, DYSPNEA Sulfa (Sulfonamide Allergy Intermediate HIVES, Verified 08/07/23 15:31 Antibiotics) ITCHINESS, SHORTNESS OF BREATH codeine AdvReac Intermediate COLD Verified 08/07/23 15:31 SWEAT, THINGS START SPINNING, NAUSEA phenazopyridine AdvReac Intermediate N/V Verified 08/07/23 15:31 Home Medications Medication Instructions Recorded Confirmed Type cholecalciferol (vitamin D3) 25 25 mcg PO DAILY 12/01/21 08/23/23 History mcg (1,000 unit) capsule nebulizers #1 ea 12/05/21 08/07/23 Rx calcium 600 mg-D3 800 unit-mag11 1 tab PO BID #60 tabs 04/27/22 08/23/23 Rx 50 ma-scnt-hcnubi-beulah-s.borat tablet (Caltrate 600-D Plus Minerals) mecobalamin (vitamin B12) 1,000 1,000 mcg sublingual DAILY 10/26/22 08/23/23 History mcg disintegrating tablet,sublingual docusate sodium 100 mg capsule 100 mg PO BID Constipation 01/03/23 08/23/23 History (Colace) polyethylene glycol 3350 17 17 g PO DAILY PRN Constipation 01/03/23 08/23/23 History gram/dose oral powder (Miralax) ondansetron HCl 8 mg tablet 8 mg PO Q8H PRN Nausea 01/22/23 08/23/23 History oxycodone 5 mg tablet 0 mg PO Q8H PRN Pain 01/22/23 08/23/23 History lidocaine 5 % topical patch 0 patch transdermal Q24H PRN Other 02/28/23 08/23/23 History diazepam 2 mg tablet 2 mg PO BID PRN sedation #60 tabs 03/09/23 08/23/23 Rx amiodarone 200 mg tablet 200 mg PO DAILY #90 tabs 05/17/23 08/23/23 Rx furosemide 20 mg tablet 20 mg PO QAM PRN Other 05/19/23 08/23/23 History acetaminophen 500 mg tablet 1,000 mg PO .BID-TID 06/11/23 08/23/23 History (Tylenol Extra Strength) ipratropium 0.5 mg-albuterol 3 mg 3 ml inhalation Q6 PRN Shortness 06/11/23 08/23/23 History (2.5 mg base)/3 mL nebulization Of Breath Or Wheezing soln melatonin 10 mg tablet 10 mg PO HS 06/11/23 08/23/23 History magnesium 30 mg tablet 30 mg PO DAILY 06/22/23 08/23/23 History folic acid 1 mg tablet 1 mg PO QPM #30 tabs 06/27/23 08/23/23 Rx olanzapine 5 mg tablet 5 mg PO QPM #30 tabs 06/27/23 08/23/23 Rx prednisone 10 mg tablet 10 mg PO DAILY #30 tabs 06/28/23 08/23/23 Rx sertraline 100 mg tablet 100 mg PO DAILY #90 tabs 07/09/23 08/23/23 Rx sertraline 25 mg tablet 25 mg PO HS #90 tabs 07/09/23 08/23/23 Rx budesonide 160 mcg-glycopyr 9 2 inh inhalation BID #10.7 grams 07/20/23 08/23/23 Rx mcg-formot 4.8 mcg/actuation HFA inhaler (Breztri Aerosphere) omeprazole 40 mg capsule,delayed 40 mg PO DAILY 07/23/23 08/23/23 History release rivaroxaban 20 mg tablet (Xarelto) 20 mg PO QDD 07/23/23 08/23/23 History metoprolol tartrate 25 mg tablet 12.5 mg (1/2 x 25 mg) PO BID 1 07/31/23 08/23/23 Rx month #30 tabs senokot gummies 8.6 mg PO UD PRN Constipation 08/02/23 08/23/23 History trazodone 50 mg tablet 100 mg (2 x 50 mg) PO HS #180 tabs 08/15/23 08/23/23 Rx vibegron 75 mg tablet (Gemtesa) 75 mg PO DAILY #90 tabs 08/23/23 08/23/23 Rx Patient History Medical History (Updated 08/24/23 @ 23:31 by Ana Armstrong DNP) Palliative care by specialist Hip pain (HFpEF) heart failure with preserved ejection fraction Sepsis Pulmonary cachexia due to chronic obstructive pulmonary disease Weakness generalized Muscular deconditioning SIADH (syndrome of inappropriate ADH production) Stress-induced cardiomyopathy Anteroapical myocardial infarction Pulmonary embolism Carcinoma in situ of bladder Anxiety about health Anxiety associated with cancer diagnosis Depression Declining performance status Dyspnea and respiratory abnormalities Anemia Dysphagia Primary small cell malignant neoplasm of lung, stage 4 Acute kidney injury Hypomagnesemia Non-ST elevation [place] (NSTEMI) Acute UTI (urinary tract infection) Cardiomyopathy Paroxysmal atrial fibrillation Hyponatremia Breast cancer DVT (deep venous thrombosis) (10/2022) LFTs abnormal Pneumonia Liver lesion Excessive cerumen in both ear canals Anxiety Insomnia Urinary incontinence Chronic hypoxemic respiratory failure Chronic obstructive pulmonary disease Hypomagnesemia Anticoagulant long-term use UTI (urinary tract infection) Chronic respiratory failure with hypoxia Polymyalgia rheumatica Small cell lung cancer GERD (gastroesophageal reflux disease) Pancytopenia due to antineoplastic chemotherapy Ex-smoker Lower extremity edema Chronic dyspnea Small cell lung cancer Malignant neoplasm of lung Bronch with biopsy on 11/15/21 Hearing deficit BIlat hearing aids Vertebral fracture LUMBAR AND THORACIC Osteoporosis Tremor RIGHT HAND Migraine HX Compression fracture of L1 vertebra (08/15/21) Chronic Endometrial thickening on ultrasound Ureteral tumor Port-A-Cath in place Liver abscess History of diverticulitis Hx of bladder cancer HAD BCG INSTILLATION - DX: 2012 History of liver disease 03/2019 [facility] FOR LIVER ABSCESS- GIVEN ABXS X MONTHS- FOLLOWING WITH HEME FOR MONITORING -RECENT CT SCAN 06/16/19- SHOWS ABSCESS TO BE DECREASED TO 3.5CM (SURGEON IS AWARE) Asthma (04/25/12) Stable and controlled Diabetes mellitus, type 2 NIDDM- WELL CONTROLLED AND STABLE History of breast cancer RIGHT S/P LUMPECTOMY/CHEMO/RADATION (2009)- STABLE AT THIS TIME Left rib fracture (2017) Surgical History S/P ablation of atrial flutter History of bronchoscopy 11/15/21 Nausea and vomiting after administration of anesthetic agent H/O cystoscopy SEVERAL History of colonoscopy History of surgery LEFT CHEST PORT History of lumpectomy of right breast History of elbow surgery RIGHT History of arthroscopy B/L KNEE History of breast biopsy History of surgery TURBT X 2; TURBT, CYSTO, RIGHT RPG, STENT: 07/11/18: LMA#4 AT [facility] History of appendectomy History of cholecystectomy Family History Other Adopted Family history unknown Social History Smoking Status: Former smoker Tobacco Type: Cigarettes Cigarettes Per Day: Less than 1/2 PPD now;Smoked 50+yrs;; Second Hand Exposure: Yes; Do You Dip or Chew Tobacco: No; Hx Alcohol Use: No Hx Substance Use: No Preferred Language: Ukrainian Communication Ability: Effective Communication Tools: Other Visual Impairment: No Limitations Hearing Ability: Hard of Hearing Commercial Administrator Required: No Beliefs That Will Affect Care: Spiritual marital status: Single Current Living Situation: Family Current Living Situation Comment: roomate current occupational status: retired Other Information That Helps Us Care for You: No Feels Safe at Home: Yes Safety Concerns: Feels Safe At This Time Childhood Exposure to Second-Hand Smoke: Yes Diet: regular caffeine: No during the past year weight has: remained stable Dental Care, Regularly: Yes Physical Activity Frequency: 1-2 Times per Week Seatbelt Use: always Sunscreen Use: Yes Assistive Devices: Bedside Commode, Hospital Bed, Oxygen - Continuous and Walker Review of Systems Review of Systems: All systems reviewed & are unremarkable except as noted in Subjective Physical Exam Constitutional: + acute distress, + ill appearing and + frail appearing Eyes: PERRL, conjunctivae normal, anicteric sclerae ENMT: Ears: + hearing impairment (hearing aides are not in place) Mouth: + dry oral mucous membranes Neck: trachea midline, no thyromegaly bruising left neck Respiratory: mild inc effort, using accessory muscles diminished overall, few crackles Cardiovascular: s1s2 Gastrointestinal (Abdomen): soft, non tender BS + pelvic discomfort with palpation at lower quadrants Musculoskeletal: pelvic / hip bone pain, cannot shift positions without significant pain Skin: pale, scatt ecchymoses Neurologic: AAOx3 Psychiatric: Eye Contact: good eye contact Mood: + anxious mood Results & Data Vital Signs (Past 12 Hours) Vital Signs Pulse Resp Pulse Ox O2 Del Method O2 Flow Rate 08/24/23 21:44 78 18 98 5 08/24/23 21:22 Nasal Cannula 6 Laboratory Results 08/23/23 08/23/23 08/23/23 Range/Units 15:19 11:00 10:30 WBC (4.8-10.8) K/ul RBC (4.20-5.40) M/uL Hgb 9.2 L (12.0-16.0) g/dl Hct 30.6 L (37.0-47.0) % MCV (80.0-100.0) fL MCH (25.0-34.0) pg MCHC (32.0-36.0) g/dL RDW Std Deviation (36.4-46.3) fL RDW Coeff of Atul (11.5-14.5) % Plt Count (130-400) K/uL MPV (9.4-12.4) fL Immature Gran % (Auto) % Neut % (Auto) % Lymph % (Auto) % Glynn % (Auto) % Eos % (Auto) % Baso % (Auto) % Neut # (Auto) (1.40-6.50) K/uL Lymph # (Auto) (1.20-3.40) K/uL Glynn # (Auto) (0.11-0.59) K/uL Eos # (Auto) (0.00-0.50) K/uL Baso # (Auto) (0.00-0.20) K/uL Immature Gran # (Auto) (0.01-0.20) K/uL Polychromasia Anisocytosis Macrocytosis Target Cells Stomatocytes PT (9.0-12.0) Seconds INR (0.9-1.1) ABG pH 7.33 L (7.35-7.45) ABG pCO2 70 H (35-46) mmHg ABG pO2 87 (80-95) mmHg ABG HCO3 37 H (19-24) mmol/L ABG O2 Saturation 98.0 H (90-95) % ABG Base Excess 8.3 H (-9-1.8) mEq/L Eros Test Pos (Pos) VBG pH (7.36-7.41) VBG pCO2 (38-50) mmHg VBG pO2 mmHg VBG HCO3 mmol/L VBG O2 Saturation % VBG Base Excess mEq/L Oxygen Given 4L Sodium (136-145) mmol/L Potassium (3.5-5.1) mmol/L Chloride (98-107) mmol/L Carbon Dioxide (21-32) mmol/L Anion Gap (3-11) BUN (6-23) mg/dl Creatinine (0.6-1.2) mg/dl Est Cr Clr Drug Dosing ml/min Est GFR ( Amer) ml/min Est GFR (Non-Af Amer) ml/min BUN/Creatinine Ratio (10-20) Glucose (70-99(Fasting)) mg/dl Lactate 0.7 (0.4-2.0) mmol/L Calcium (8.6-10.3) mg/dl Magnesium (1.7-2.4) mg/dl Total Bilirubin (0.2-1.0) mg/dl AST (13-39) U/L ALT (7-52) U/L Alkaline Phosphatase (34-104) U/L Troponin I High Sens 466.3 H* 423.2 H* D (0-14) pg/ml B-Natriuretic Peptide (0-100) pg/ml Total Protein (6.0-8.3) gm/dl Albumin (3.4-5.0) gm/dl Globulin (2.5-4.0) gm/dl Albumin/Globulin Ratio (0.9-2) Procalcitonin 0.20 (0-0.5) ng/ml Random Cortisol 13.36 mcg/dl Adenovirus (PCR) (NotDetected) B. pertussis DNA (PCR) (NotDetected) B.parapertussis DNA PCR (NotDetected) C. pneumoniae DNA (PCR) (NotDetected) Coronavirus OC43 (PCR) (NotDetected) Coronavirus HKU1 (PCR) (NotDetected) Coronavirus 229E (PCR) (NotDetected) SARS-CoV-2 (PCR) (NotDetected) Coronavirus NL63 (PCR) (NotDetected) Human Metapneumovir PCR (NotDetected) Influenza Type A (PCR) (NotDetected) Influenza Type B (PCR) (NotDetected) M. pneumoniae (PCR) (NotDetected) Parainfluenza 1 (PCR) (NotDetected) Parainfluenza 2 (PCR) (NotDetected) Parainfluenza 3 (PCR) (NotDetected) Parainfluenza 4 (PCR) (NotDetected) RSV (PCR) (NotDetected) Entero/Rhino (PCR) (NotDetected) 08/23/23 08/23/23 08/23/23 Range/Units 09:10 09:09 09:08 WBC 15.22 H (4.8-10.8) K/ul RBC 2.70 L (4.20-5.40) M/uL Hgb 9.2 L (12.0-16.0) g/dl Hct 30.0 L (37.0-47.0) % MCV 111.1 H (80.0-100.0) fL MCH 34.1 H (25.0-34.0) pg MCHC 30.7 L (32.0-36.0) g/dL RDW Std Deviation 61.5 H (36.4-46.3) fL RDW Coeff of Atul 15.1 H (11.5-14.5) % Plt Count 179 (130-400) K/uL MPV 9.3 L (9.4-12.4) fL Immature Gran % (Auto) 1.2 % Neut % (Auto) 86.8 % Lymph % (Auto) 4.5 % Glynn % (Auto) 7.2 % Eos % (Auto) 0.2 % Baso % (Auto) 0.1 % Neut # (Auto) 13.21 H (1.40-6.50) K/uL Lymph # (Auto) 0.68 L (1.20-3.40) K/uL Glynn # (Auto) 1.10 H (0.11-0.59) K/uL Eos # (Auto) 0.03 (0.00-0.50) K/uL Baso # (Auto) 0.02 (0.00-0.20) K/uL Immature Gran # (Auto) 0.18 (0.01-0.20) K/uL Polychromasia 1+ Anisocytosis Present Macrocytosis Present Target Cells 1+ Stomatocytes 1+ PT 12.4 H (9.0-12.0) Seconds INR 1.1 (0.9-1.1) ABG pH (7.35-7.45) ABG pCO2 (35-46) mmHg ABG pO2 (80-95) mmHg ABG HCO3 (19-24) mmol/L ABG O2 Saturation (90-95) % ABG Base Excess (-9-1.8) mEq/L Eros Test (Pos) VBG pH 7.39 (7.36-7.41) VBG pCO2 64 H (38-50) mmHg VBG pO2 33 mmHg VBG HCO3 39 mmol/L VBG O2 Saturation < 60.0 % VBG Base Excess 11.0 mEq/L Oxygen Given Sodium 142 (136-145) mmol/L Potassium 3.8 (3.5-5.1) mmol/L Chloride 102 (98-107) mmol/L Carbon Dioxide 38 H (21-32) mmol/L Anion Gap 2 L (3-11) BUN 14 (6-23) mg/dl Creatinine 0.98 (0.6-1.2) mg/dl Est Cr Clr Drug Dosing 42.7 ml/min Est GFR ( Amer) 63.6 ml/min Est GFR (Non-Af Amer) 54.9 ml/min BUN/Creatinine Ratio 14.3 (10-20) Glucose 101 H (70-99(Fasting)) mg/dl Lactate (0.4-2.0) mmol/L Calcium 8.7 (8.6-10.3) mg/dl Magnesium 1.9 (1.7-2.4) mg/dl Total Bilirubin 0.4 (0.2-1.0) mg/dl AST 19 (13-39) U/L ALT 22 (7-52) U/L Alkaline Phosphatase 88 (34-104) U/L Troponin I High Sens 253.0 H* (0-14) pg/ml B-Natriuretic Peptide 220 H (0-100) pg/ml Total Protein 5.4 L (6.0-8.3) gm/dl Albumin 3.1 L (3.4-5.0) gm/dl Globulin 2.3 L (2.5-4.0) gm/dl Albumin/Globulin Ratio 1.3 (0.9-2) Procalcitonin (0-0.5) ng/ml Random Cortisol mcg/dl Adenovirus (PCR) Not Detected (NotDetected) B. pertussis DNA (PCR) Not Detected (NotDetected) B.parapertussis DNA PCR Not Detected (NotDetected) C. pneumoniae DNA (PCR) Not Detected (NotDetected) Coronavirus OC43 (PCR) Not Detected (NotDetected) Coronavirus HKU1 (PCR) Not Detected (NotDetected) Coronavirus 229E (PCR) Not Detected (NotDetected) SARS-CoV-2 (PCR) Not Detected (NotDetected) Coronavirus NL63 (PCR) Not Detected (NotDetected) Human Metapneumovir PCR Not Detected (NotDetected) Influenza Type A (PCR) Not Detected (NotDetected) Influenza Type B (PCR) Not Detected (NotDetected) M. pneumoniae (PCR) Not Detected (NotDetected) Parainfluenza 1 (PCR) Not Detected (NotDetected) Parainfluenza 2 (PCR) Not Detected (NotDetected) Parainfluenza 3 (PCR) Not Detected (NotDetected) Parainfluenza 4 (PCR) Not Detected (NotDetected) RSV (PCR) Not Detected (NotDetected) Entero/Rhino (PCR) Not Detected (NotDetected) Diagnostic Findings Chest X-Ray 08/23/23 09:04 XR chest 1V portable HISTORY: Dyspnea COMPARISON: Chest CT 08/13/2023. FINDINGS: A left subclavian Port-A-Cath terminates at the SVC. The heart remains mildly enlarged. No pneumothorax. No acute fractures. A moderate left pleural effusion remains unchanged. There is a trace right pleural effusion again noted. Focal consolidation within the left upper lobe persists. This is better appreciated on the recent chest CTA. There is mild central pulmonary vascular congestion without overt edema. No new focal lung consolidations identified. IMPRESSION: 1. No change in the moderate left pleural effusion. 2. Cardiomegaly and mild pulmonary vascular congestion. 3. Left upper lobe consolidation persists. ACT 112: Negative or not required by law. Electronically signed by: Sabino Chua M.D. 08/23/2023 9:59 AM Hip/Pelvis X-Ray 08/23/23 09:04 XR hip LT 2V w pelvis CLINICAL HISTORY: L hip pain s/p fall from standing COMPARISON STUDY: PET CT 06/27/2023. FINDINGS: There is an acute nondisplaced fracture within the left inferior pubic ramus. Probable nondisplaced fracture within the left superior pubic ramus. No fracture or dislocation within the left femur. The right hip is intact. Vascular calcifications are noted. IMPRESSION: 1. Acute nondisplaced left pubic ring fracture. 2. No fracture or dislocation within the left femur. ACT 112: Negative or not required by law. Electronically signed by: Sabino Chua M.D. 08/23/2023 10:[address] 08/23/23 09:[address] DOSE: 1046.25 mGy.cm HISTORY: fall from standing; on xarelto TECHNIQUE: Multiaxial CT images of the cervical spine were performed and reformatted in the sagittal and coronal plane without the use of contrast. A dose lowering technique was utilized adhering to the principles of ALARA. COMPARISON: Chest CT 08/13/2023. FINDINGS: No acute fracture or subluxation within the cervical spine. Prevertebral soft tissues and the C1-C2 interval are intact. No pneumothorax. Emphysema again noted. Mild inferior endplate compression deformities at C6 and C7 again noted. These are likely subacute to chronic. There is also a moderate anterior wedge-shaped compression deformity at T3, unchanged. This is also likely subacute to chronic. IMPRESSION: 1. No acute fracture or subluxation within the cervical spine. 2. [id number] compression deformities at C6, C7, and T3 remain unchanged. These are likely subacute to chronic. ACT 112: Negative or not required by law. Electronically signed by: Sabino Chua M.D. 08/23/2023 10:[address] 08/23/23 09:11 CT head/brain wo con CLINICAL HISTORY: 77 years-old Female with fall from standing; on xarelto. Acute head trauma status post fall TECHNIQUE: Multiple axial CT images of the head were obtained without contrast. A dose lowering technique was utilized adhering to the principles of ALARA. COMPARISON: CT cervical spine of same day, brain MRI 03/29/2023 FINDINGS: No acute intracranial hemorrhage, midline shift, intracranial mass, hydrocephalus, territorial ischemia or abnormal extra-axial collection. Involutional changes with chronic microvascular ischemic disease. The calvarium is intact. The paranasal sinuses, mastoid air cells, and middle ear cavities are clear. IMPRESSION: No acute intracranial abnormality or calvarial fracture. ACT 112: Negative or not required by law. The above report was generated using voice recognition software. It may contain grammatical, syntax or spelling errors. Electronically signed by: Christian Salas M.D. 08/23/2023 10:22 AM Chest X-Ray 08/23/23 15:07 XR chest 1V portable HISTORY: worsening hypoxia, ?pulm edema COMPARISON: Chest 08/23/2023. FINDINGS: No pneumothorax. The heart remains enlarged. Left subclavian Port-A-Cath which terminates in the SVC. A small to moderate left pleural effusion and left basilar densities persist. Left upper lobe consolidation remains unchanged. There is mild interstitial pulmonary edema which has slightly progressed. IMPRESSION: 1. Interval progression of the mild interstitial pulmonary edema. 2. Small to moderate left pleural effusion and left basilar densities persist. 3. Left upper lobe consolidation remains unchanged. ACT 112: Negative or not required by law. Electronically signed by: Sabino Chua M.D. 08/23/2023 3:58 PM PG Care Time/CCT Total # of Minutes Spent Total Time Spent with Patient: Total time spent is greater than 50% in coordination of care (as documented) at patient's floor/unit and/or counseling patient: I spent 80 minutes overall addressing this case: 15 min in medical data review/discussion with referring provider(s) and/or preparation for the visit 15 min in direct interaction with the patient/exam 30 min in Advance Care Planning/Goals of Care discussions as detailed above in note (must be >16min) 10 min in subsequent review and synthesis of assessment and plan 10 min communicating with other providers regarding the patient's case: Advanced Care Planning 92145 Advanced Care Planning 30 [place] [address] IN/OBS CONSULT LVL 5,80M (25 - SIGNIFICANT, SEPARATELY IDENTIFIABLE ) Patient Type New Medical Decision Making High Complexity Diagnoses Hip pain M25.559 Weakness generalized R53.1 Dyspnea and respiratory abnormalities R06.00; R06.89 Muscular deconditioning R29.898 Bilateral hearing loss, unspecified hearing loss type H91.93 Hearing loss type: unspecified Laterality: bilateral Anxiety about health R45.89 Fall W19.XXXA Pulmonary cachexia due to chronic obstructive pulmonary disease R64; J44.9 Closed fracture of left inferior pubic ramus S32.592A (HFpEF) heart failure with preserved ejection fraction I50.30 Pneumonia J18.9 Laterality: unspecified laterality Lung location: unspecified part of lung Pneumonia type: due to unspecified organism Palliative care by specialist Z51.5 Additional Codes Advanced Care Planning - 56422 Advanced Care Planning 30 Min: [id number] Advanced Care Planning 30 Min ([id number])
--- NOTE | 2023-08-25 13:22 | Hospitalist Progress Note ---
Date of Service August 25, 2023 Assessment & Plan (1) Primary small cell malignant neoplasm of lung, stage 4: Plan: Patient is now comfort care Palliative care on board Appreciate oncology recommendation (2) Fracture of pubis without disruption of pelvic ring: Plan: Patient sustained ground-level fall at 0500 on 08/22 Struck his left hip and left neck; no head strike; no LOC; on Xarelto Patient was not using walker/cane at the time Head/cervical spine CT revealed no acute findings Hip and pelvic x-ray revealed acute nondisplaced left pubic ring fracture Will hold Xarelto for now in the setting of acute fall/pelvic ring fracture Acetaminophen 1000 mg p.o. q8h for pain Oxycodone 5-10 mg p.o. q6h as needed for breakthrough pain Activity: Bedrest for now Comfort care (3) Acute and chronic respiratory failure with hypoxia: Plan: Patient is at 2 L NC chronically at baseline, but has required increased oxygen this past week up to 34 L Comfort care, oxygen as needed for cough (4) Pneumonia: Plan: Comfort care (5) Megaloblastic anemia: Plan: Comfort care (6) Elevated troponin: Plan: Comfort care (7) Paroxysmal atrial fibrillation: Plan: Not in A-fib on arrival Discontinue metoprolol, amiodarone and Xarelto Comfort care (8) Tobacco abuse: Plan: History of tobacco use; quit 1 year ago (9) Polymyalgia rheumatica: Plan: Patient is normally on prednisone 10 mg daily Mildly hypotensive in the ED Comfort care (10) Pulmonary cachexia due to chronic obstructive pulmonary disease: (11) (HFpEF) heart failure with preserved ejection fraction: Plan Comfort care DNR/DNI Regular diet Admission and Anticipated Discharge Date Admission Date: August 23, 2023 Subjective Patient appears comfortable. Accompanied by her daughter in the room. Physical Exam Physical Exam: General appearance: Patient appears comfortable. Results & Data Results & Data Vital Signs (Past 12 Hours) Vital Signs O2 Del Method O2 Flow Rate 08/25/23 12:42 Nasal Cannula 5 PG Care Time/CCT Total # of Minutes Spent Total Time Spent with Patient: Total time spent is greater than 50% in coordination of care (as documented) at patient's floor/unit and/or counseling patient: Coding Level of Care Code 39139 SUB INP/OBS CARE 2/35MIN Diagnoses Primary small cell malignant neoplasm of lung, stage 4 C34.90 Fracture of pubis without disruption of pelvic ring S32.509A Acute and chronic respiratory failure with hypoxia J96.21 Pneumonia J18.9 Laterality: unspecified laterality Lung location: unspecified part of lung Pneumonia type: due to unspecified organism Megaloblastic anemia D53.1 Elevated troponin R79.89 Paroxysmal atrial fibrillation I48.0 Tobacco abuse Z72.0 Polymyalgia rheumatica M35.3 Pulmonary cachexia due to chronic obstructive pulmonary disease R64; J44.9 (HFpEF) heart failure with preserved ejection fraction I50.30 (4) Pneumonia Laterality: unspecified laterality Lung location: unspecified part of lung Pneumonia type: due to unspecified organism Qualified Code(s): J18.9 - Pneumonia, unspecified organism
[2023-08-26] MEDS: HEPARIN 100 UNIT/ML 5ML FLUSH FLUSH PRN (07:43)
[2023-08-26] MEDS: LORazepam 0.5 MG in SYRINGE 0.25 ML IV PRN ×2 (10:07→13:34)
--- NOTE | 2023-08-26 14:20 | Hospitalist Progress Note ---
Date of Service August 26, 2023 Assessment & Plan (1) Primary small cell malignant neoplasm of lung, stage 4: Plan: Patient is now comfort care Palliative care on board Appreciate oncology recommendation (2) Fracture of pubis without disruption of pelvic ring: Plan: Patient sustained ground-level fall at 0500 on 08/22 Struck his left hip and left neck; no head strike; no LOC; on Xarelto Patient was not using walker/cane at the time Head/cervical spine CT revealed no acute findings Hip and pelvic x-ray revealed acute nondisplaced left pubic ring fracture Will hold Xarelto for now in the setting of acute fall/pelvic ring fracture Acetaminophen 1000 mg p.o. q8h for pain Oxycodone 5-10 mg p.o. q6h as needed for breakthrough pain Activity: Bedrest for now Comfort care (3) Acute and chronic respiratory failure with hypoxia: Plan: Patient is at 2 L NC chronically at baseline, but has required increased oxygen this past week up to 34 L Comfort care, oxygen as needed for cough (4) Pneumonia: Plan: Comfort care (5) Megaloblastic anemia: Plan: Comfort care (6) Elevated troponin: Plan: Comfort care (7) Paroxysmal atrial fibrillation: Plan: Not in A-fib on arrival Discontinue metoprolol, amiodarone and Xarelto Comfort care (8) Tobacco abuse: Plan: History of tobacco use; quit 1 year ago (9) Polymyalgia rheumatica: Plan: Patient is normally on prednisone 10 mg daily Mildly hypotensive in the ED Comfort care (10) Pulmonary cachexia due to chronic obstructive pulmonary disease: (11) (HFpEF) heart failure with preserved ejection fraction: Plan Comfort care DNR/DNI Regular diet Asked the nurse to use more Ativan. Increase the frequency of Ativan for comf ort. Admission and Anticipated Discharge Date Admission Date: August 23, 2023 Subjective Per daughter, patient has been anxious and restless. Physical Exam Physical Exam: General appearance: Patient appears slightly restless Results & Data Results & Data Vital Signs (Past 12 Hours) Vital Signs Pulse Resp Pulse Ox O2 Del Method O2 Flow Rate 08/26/23 12:36 98 H 18 98 Nasal Cannula 5 08/26/23 10:29 Nasal Cannula 5 PG Care Time/CCT Total # of Minutes Spent Total Time Spent with Patient: Total time spent is greater than 50% in coordination of care (as documented) at patient's floor/unit and/or counseling patient: Coding Level of Care Code 98903 SUB INP/OBS CARE MIN Diagnoses Primary small cell malignant neoplasm of lung, stage 4 C34.90 Fracture of pubis without disruption of pelvic ring S32.509A Acute and chronic respiratory failure with hypoxia J96.21 Pneumonia J18.9 Laterality: unspecified laterality Lung location: unspecified part of lung Pneumonia type: due to unspecified organism Megaloblastic anemia D53.1 Elevated troponin R79.89 Paroxysmal atrial fibrillation I48.0 Tobacco abuse Z72.0 Polymyalgia rheumatica M35.3 Pulmonary cachexia due to chronic obstructive pulmonary disease R64; J44.9 (HFpEF) heart failure with preserved ejection fraction I50.30 (4) Pneumonia Laterality: unspecified laterality Lung location: unspecified part of lung Pneumonia type: due to unspecified organism Qualified Code(s): J18.9 - Pneumonia, unspecified organism
--- NOTE | 2023-08-27 15:46 | Hospitalist Progress Note ---
Date of Service August 27, 2023 Assessment & Plan (1) Primary small cell malignant neoplasm of lung, stage 4: Plan: Patient is now comfort care Palliative care on board Appreciate oncology recommendation (2) Fracture of pubis without disruption of pelvic ring: Plan: Patient sustained ground-level fall at 0500 on 08/22 Struck his left hip and left neck; no head strike; no LOC; on Xarelto Patient was not using walker/cane at the time Head/cervical spine CT revealed no acute findings Hip and pelvic x-ray revealed acute nondisplaced left pubic ring fracture Will hold Xarelto for now in the setting of acute fall/pelvic ring fracture Acetaminophen 1000 mg p.o. q8h for pain Oxycodone 5-10 mg p.o. q6h as needed for breakthrough pain Activity: Bedrest for now Comfort care (3) Acute and chronic respiratory failure with hypoxia: Plan: Patient is at 2 L NC chronically at baseline, but has required increased oxygen this past week up to 34 L Comfort care, oxygen as needed for cough (4) Pneumonia: Plan: Comfort care (5) Megaloblastic anemia: Plan: Comfort care (6) Elevated troponin: Plan: Comfort care (7) Paroxysmal atrial fibrillation: Plan: Not in A-fib on arrival Discontinue metoprolol, amiodarone and Xarelto Comfort care (8) Tobacco abuse: Plan: History of tobacco use; quit 1 year ago (9) Polymyalgia rheumatica: Plan: Patient is normally on prednisone 10 mg daily Mildly hypotensive in the ED Comfort care (10) Pulmonary cachexia due to chronic obstructive pulmonary disease: (11) (HFpEF) heart failure with preserved ejection fraction: Plan Comfort care DNR/DNI Regular diet Admission and Anticipated Discharge Date Admission Date: August 23, 2023 Subjective Patient is not accompanied by her daughter today. Patient is slightly confused. Does not appear to be in any pain Review of Systems Review of Systems: Unobtainable due to cognitive status Physical Exam Physical Exam: General appearance: Patient appears confused slightly. She appears comfortable. PG Care Time/CCT Total # of Minutes Spent Total Time Spent with Patient: Total time spent is greater than 50% in coordination of care (as documented) at patient's floor/unit and/or counseling patient: Coding Level of Care Code 11320 SUB INP/OBS CARE 2/35MIN Diagnoses Primary small cell malignant neoplasm of lung, stage 4 C34.90 Fracture of pubis without disruption of pelvic ring S32.509A Acute and chronic respiratory failure with hypoxia J96.21 Pneumonia J18.9 Laterality: unspecified laterality Lung location: unspecified part of lung Pneumonia type: due to unspecified organism Megaloblastic anemia D53.1 Elevated troponin R79.89 Paroxysmal atrial fibrillation I48.0 Tobacco abuse Z72.0 Polymyalgia rheumatica M35.3 Pulmonary cachexia due to chronic obstructive pulmonary disease R64; J44.9 (HFpEF) heart failure with preserved ejection fraction I50.30 (4) Pneumonia Laterality: unspecified laterality Lung location: unspecified part of lung Pneumonia type: due to unspecified organism Qualified Code(s): J18.9 - Pneumonia, unspecified organism
--- NOTE | 2023-08-28 15:37 | Hospitalist Progress Note ---
Date of Service August 28, 2023 Assessment & Plan (1) Primary small cell malignant neoplasm of lung, stage 4: Plan: Patient is now comfort care Palliative care on board Appreciate oncology recommendation (2) Fracture of pubis without disruption of pelvic ring: Plan: Patient sustained ground-level fall at 0500 on 08/22 Struck his left hip and left neck; no head strike; no LOC; on Xarelto Patient was not using walker/cane at the time Head/cervical spine CT revealed no acute findings Hip and pelvic x-ray revealed acute nondisplaced left pubic ring fracture Will hold Xarelto for now in the setting of acute fall/pelvic ring fracture Acetaminophen 1000 mg p.o. q8h for pain Oxycodone 5-10 mg p.o. q6h as needed for breakthrough pain Activity: Bedrest for now Comfort care (3) Acute and chronic respiratory failure with hypoxia: Plan: Patient is at 2 L NC chronically at baseline, but has required increased oxygen this past week up to 34 L Comfort care, oxygen as needed for cough (4) Pneumonia: Plan: Comfort care (5) Megaloblastic anemia: Plan: Comfort care (6) Elevated troponin: Plan: Comfort care (7) Paroxysmal atrial fibrillation: Plan: Not in A-fib on arrival Discontinue metoprolol, amiodarone and Xarelto Comfort care (8) Tobacco abuse: Plan: History of tobacco use; quit 1 year ago (9) Polymyalgia rheumatica: Plan: Patient is normally on prednisone 10 mg daily Mildly hypotensive in the ED Comfort care (10) Pulmonary cachexia due to chronic obstructive pulmonary disease: (11) (HFpEF) heart failure with preserved ejection fraction: Plan Comfort care DNR/DNI Regular diet I think patient is actively dying. She should be in the hospital until she pa sses. Admission and Anticipated Discharge Date Admission Date: August 23, 2023 Subjective Patient sleeping in bed. Accompanied by daughter and son-in-law. Physical Exam Physical Exam: General appearance: Patient appears comfortable Results & Data Results & Data Vital Signs (Past 12 Hours) Vital Signs O2 Del Method O2 Flow Rate 08/28/23 07:55 Nasal Cannula 5 PG Care Time/CCT Total # of Minutes Spent Total Time Spent with Patient: Total time spent is greater than 50% in coordination of care (as documented) at patient's floor/unit and/or counseling patient: Coding Level of Care Code 02258 SUB INP/OBS CARE MIN Diagnoses Primary small cell malignant neoplasm of lung, stage 4 C34.90 Fracture of pubis without disruption of pelvic ring S32.509A Acute and chronic respiratory failure with hypoxia J96.21 Pneumonia J18.9 Laterality: unspecified laterality Lung location: unspecified part of lung Pneumonia type: due to unspecified organism Megaloblastic anemia D53.1 Elevated troponin R79.89 Paroxysmal atrial fibrillation I48.0 Tobacco abuse Z72.0 Polymyalgia rheumatica M35.3 Pulmonary cachexia due to chronic obstructive pulmonary disease R64; J44.9 (HFpEF) heart failure with preserved ejection fraction I50.30 (4) Pneumonia Laterality: unspecified laterality Lung location: unspecified part of lung Pneumonia type: due to unspecified organism Qualified Code(s): J18.9 - Pn eumonia, unspecified organism
--- NOTE | 2023-08-28 17:09 | Palliative Family Discussion ---
Date of Service August 28, 2023 Patient Directed Conference Time of Meetin-310pm Participants: Ana Armstrong DNP Patient participation: no, obtunded Patient Support System: dtr/Mei Other Healthcare Provider Participation: None Meeting Location: telephonic Advanced Directive available: Yes Mei is POA A family meeting was held for MEG HOBBS. This meeting was necessary for determining the appropriate course of treatment. Topics of Discussion Topics of Discussion: 1. Meg is no longer taking PO. She is nearly obtunded per nursing but Mei feels she did open eyes for her once today. She notes Meg is no longer i nteractive and urine OP is decreasing. 2. Meg appears comfortable and has not required higher frequencies of BOAT O[employer] meds. Mei feels she is comfortable. 3. Mei asks about anticipated , reviewed w/current changes likely days. Mei is agreement. Patient has been steadily declining every day. Other Content of Meetin. Opportunity given for participants to speak and ask questions. 2. Participants were assured of attention to patient comfort. 3. Reassurance provided. 4. Support was provided for informed, good-odin decisions. 5. Emotions expressed by family were acknowledged and addressed. 6. Follow-up tomorrow face to face. We discussed that if pt condition remains exactly the same, then transition to chronic care or home hospice is next step, Mei aware and in agreement. If pt continues to decline, she will remain admitted and at [facility] for dc with active dying underway. 7. Dying process: Discussed changes pt may move through in the dying process including but not limited to sleeping more, disorientation when awake, restlessness, diminished senses/inability to respond to stimulus although ability to be aware of them remains intact longer, and changes in body temperatures, skin changes/mottling/cyanosis, respiratory pattern changes, and oral secretions. Family verbalized understanding. The goal is to assure a peaceful . TS 25min Thank you for allowing us to participate in the ongoing care of this patient. Please don't hesitate to call or page with any additional concerns. Dr. Ana Armstrong DNP Director, Palliative Care
--- NOTE | 2023-08-29 15:15 | Hospitalist Progress Note ---
Date of Service August 29, 2023 Assessment & Plan (1) Primary small cell malignant neoplasm of lung, stage 4: Plan: Patient is now comfort care Palliative care on board Appreciate oncology recommendation (2) Fracture of pubis without disruption of pelvic ring: Plan: Patient sustained ground-level fall at 0500 on 08/22 Struck his left hip and left neck; no head strike; no LOC; on Xarelto Patient was not using walker/cane at the time Head/cervical spine CT revealed no acute findings Hip and pelvic x-ray revealed acute nondisplaced left pubic ring fracture Will hold Xarelto for now in the setting of acute fall/pelvic ring fracture Acetaminophen 1000 mg p.o. q8h for pain Oxycodone 5-10 mg p.o. q6h as needed for breakthrough pain Activity: Bedrest for now Comfort care (3) Acute and chronic respiratory failure with hypoxia: Plan: Patient is at 2 L NC chronically at baseline, but has required increased oxygen this past week up to 34 L Comfort care, oxygen as needed for cough (4) Pneumonia: Plan: Comfort care (5) Megaloblastic anemia: Plan: Comfort care (6) Elevated troponin: Plan: Comfort care (7) Paroxysmal atrial fibrillation: Plan: Not in A-fib on arrival Discontinue metoprolol, amiodarone and Xarelto Comfort care (8) Tobacco abuse: Plan: History of tobacco use; quit 1 year ago (9) Polymyalgia rheumatica: Plan: Patient is normally on prednisone 10 mg daily Mildly hypotensive in the ED Comfort care (10) Pulmonary cachexia due to chronic obstructive pulmonary disease: (11) (HFpEF) heart failure with preserved ejection fraction: Plan Comfort care DNR/DNI Regular diet I think patient is actively dying. She should be in the hospital until she passes. Admission and Anticipated Discharge Date Admission Date: August 23, 2023 Subjective Patient appears comfortable. She is sleeping Review of Systems Review of Systems: Unobtainable due to cognitive status Physical Exam Physical Exam: General appearance: Patient appears comfortable Results & Data Results & Data Vital Signs (Past 12 Hours) Vital Signs Temp Pulse Resp BP Pulse Ox O2 Del Method O2 Flow Rate 08/29/23 07:25 Nasal Cannula 5 08/29/23 07:20 36.9 C 88 20 113/64 95 PG Care Time/CCT Total # of Minutes Spent Total Time Spent with Patient: Total time spent is greater than 50% in coordination of care (as documented) at patient's floor/unit and/or counseling patient: Coding Level of Care Code 53555 SUB INP/OBS CARE 2/35MIN Diagnoses Primary small cell malignant neoplasm of lung, stage 4 C34.90 Fracture of pubis without disruption of pelvic ring S32.509A Acute and chronic respiratory failure with hypoxia J96.21 Pneumonia J18.9 Laterality: unspecified laterality Lung location: unspecified part of lung Pneumonia type: due to unspecified organism Megaloblastic anemia D53.1 Elevated troponin R79.89 Paroxysmal atrial fibrillation I48.0 Tobacco abuse Z72.0 Polymyalgia rheumatica M35.3 Pulmonary cachexia due to chronic obstructive pulmonary disease R64; J44.9 (HFpEF) heart failure with preserved ejection fraction I50.30 (4) Pneumonia Laterality: unspecified laterality Lung location: unspecified part of lung Pneumonia type: due to unspecified organism Qualified Code(s): J18.9 - Pneumonia, unspecified organism
--- NOTE | 2023-08-29 20:26 | Palliative Care Progress Note ---
Date of Service August 29, 2023 Assessment & Plan (1) Dyspnea and respiratory abnormalities: (2) Fracture of pubis without disruption of pelvic ring: (3) Weakness generalized: (4) Muscular deconditioning: (5) Hearing deficit: (6) Palliative care by specialist: (7) Acute and chronic respiratory failure with hypoxia: (8) Pulmonary cachexia due to chronic obstructive pulmonary disease: (9) Anxiety about health: (10) Anxiety associated with cancer diagnosis: (11) Declining performance status: Plan Continue CONTINUING EDUCATION SPECIALIST Declining from prior visit Earlier today had a nice period of lucidity with dtr which was not enduring. She is now lethargic and sleepy. We reviewed the end of life rally phenomenon and changes pt experience in dying process for 10min All questions answered to her apparent satisfaction. She is aware I am in OP clinic tomorrow, returning to inpatient on Sunday. I am available by pager anytime for acute symptom mgt needs. TS 45min Thank you for allowing us to participate in the ongoing care of this patient. Please don't hesitate to call or page with any additional concerns. Dr. Ana Armstrong DNP Director, Palliative Care Admission and Anticipated Discharge Date Admission Date: August 23, 2023 Subjective Carla remains on CONTINUING EDUCATION SPECIALIST family at bedside: dtr Mei with her Carla had some earlier alertness and ate lunch, Mei was happy to have some time to interact She is now somnolent but rouses with loud verbal for a brief period before drifting back off She does admit to fatigue, occ dyspnea she has pain with movement and positioning she wants to sleep Review of Systems Review of Systems: All systems reviewed & are unremarkable except as noted in Subjective Physical Exam Physical Exam: somnolent resting in bed no resp distress but very fatigued color ashen skin pale, cool alert to self when loud verbal PG Care Time/CCT Total # of Minutes Spent Total Time Spent: 45 Total Time Spent with Patient: Total time spent is greater than 50% in coordination of care (as documented) at patient's floor/unit and/or counseling patient: Coding [place] [address] SUB INP/OBS CARE 3/50MIN Patient Type Established History Comprehensive Exam Comprehensive Medical Decision Making High Complexity Diagnoses Dyspnea and respiratory abnormalities R06.00; R06.89 Fracture of pubis without disruption of pelvic ring S32.509A Weakness generalized R53.1 Muscular deconditioning R29.898 Bilateral hearing loss, unspecified hearing loss type H91.93 Hearing loss type: unspecified Laterality: bilateral Palliative care by specialist Z51.5 Acute and chronic respiratory failure with hypoxia J96.21 Pulmonary cachexia due to chronic obstructive pulmonary disease R64; J44.9 Anxiety about health R45.89 Anxiety associated with cancer diagnosis F41.1; C80.1 Declining performance status R53.81 (5) Hearing deficit Hearing loss type: unspecified Laterality: bilateral Qualified Code(s): H91.93 - Unspecified hearing loss, bilateral
--- NOTE | 2023-08-30 14:53 | Hospitalist Progress Note ---
Date of Service August 30, 2023 Assessment & Plan (1) Primary small cell malignant neoplasm of lung, stage 4: Plan: Patient is now comfort care Palliative care on board Appreciate oncology recommendation (2) Fracture of pubis without disruption of pelvic ring: Plan: Patient sustained ground-level fall at 0500 on 08/22 Struck his left hip and left neck; no head strike; no LOC; on Xarelto Patient was not using walker/cane at the time Head/cervical spine CT revealed no acute findings Hip and pelvic x-ray revealed acute nondisplaced left pubic ring fracture Will hold Xarelto for now in the setting of acute fall/pelvic ring fracture Acetaminophen 1000 mg p.o. q8h for pain Oxycodone 5-10 mg p.o. q6h as needed for breakthrough pain Activity: Bedrest for now Comfort care (3) Acute and chronic respiratory failure with hypoxia: Plan: Patient is at 2 L NC chronically at baseline, but has required increased oxygen this past week up to 34 L Comfort care, oxygen as needed for cough (4) Pneumonia: Plan: Comfort care (5) Megaloblastic anemia: Plan: Comfort care (6) Elevated troponin: Plan: Comfort care (7) Paroxysmal atrial fibrillation: Plan: Not in A-fib on arrival Discontinue metoprolol, amiodarone and Xarelto Comfort care (8) Tobacco abuse: Plan: History of tobacco use; quit 1 year ago (9) Polymyalgia rheumatica: Plan: Patient is normally on prednisone 10 mg daily Mildly hypotensive in the ED Comfort care (10) Pulmonary cachexia due to chronic obstructive pulmonary disease: (11) (HFpEF) heart failure with preserved ejection fraction: Plan Comfort care DNR/DNI Regular diet I think patient is actively dying. She should be in the hospital until she passes. Admission and Anticipated Discharge Date Admission Date: August 23, 2023 Subjective Patient is sleeping. Review of Systems Review of Systems: Other Comfort care Physical Exam Physical Exam: General appearance: Patient appears comfortable Results & Data Results & Data Vital Signs (Past 12 Hours) Vital Signs O2 Del Method O2 Flow Rate 08/30/23 07:40 Nasal Cannula 5 PG Care Time/CCT Total # of Minutes Spent Total Time Spent with Patient: Total time spent is greater than 50% in coordination of care (as documented) at patient's floor/unit and/or counseling patient: Coding Level of Care Code 89203 SUB INP/OBS CARE 05/24MIN Diagnoses Primary small cell malignant neoplasm of lung, stage 4 C34.90 Fracture of pubis without disruption of pelvic ring S32.509A Acute and chronic respiratory failure with hypoxia J96.21 Pneumonia J18.9 Laterality: unspecified laterality Lung location: unspecified part of lung Pneumonia type: due to unspecified organism Megaloblastic anemia D53.1 Elevated troponin R79.89 Paroxysmal atrial fibrillation I48.0 Tobacco abuse Z72.0 Polymyalgia rheumatica M35.3 Pulmonary cachexia due to chronic obstructive pulmonary disease R64; J44.9 (HFpEF) heart failure with preserved ejection fraction I50.30 (4) Pneumonia Laterality: unspecified laterality Lung location: unspecified part of lung Pneumonia type: due to unspecified organism Qualified Code(s): J18.9 - Pneumonia, unspecified organism
--- NOTE | 2023-08-31 16:20 | Hospitalist Progress Note ---
Date of Service August 31, 2023 Assessment & Plan (1) Primary small cell malignant neoplasm of lung, stage 4: Plan: Patient is now comfort care Palliative care on board Appreciate oncology recommendation (2) Fracture of pubis without disruption of pelvic ring: Plan: Patient sustained ground-level fall at 0500 on 08/22 Struck his left hip and left neck; no head strike; no LOC; on Xarelto Patient was not using walker/cane at the time Head/cervical spine CT revealed no acute findings Hip and pelvic x-ray revealed acute nondisplaced left pubic ring fracture Will hold Xarelto for now in the setting of acute fall/pelvic ring fracture Acetaminophen 1000 mg p.o. q8h for pain Oxycodone 5-10 mg p.o. q6h as needed for breakthrough pain Activity: Bedrest for now Comfort care (3) Acute and chronic respiratory failure with hypoxia: Plan: Patient is at 2 L NC chronically at baseline, but has required increased oxygen this past week up to 34 L Comfort care, oxygen as needed for cough (4) Pneumonia: Plan: Comfort care (5) Megaloblastic anemia: Plan: Comfort care (6) Elevated troponin: Plan: Comfort care (7) Paroxysmal atrial fibrillation: Plan: Not in A-fib on arrival Discontinue metoprolol, amiodarone and Xarelto Comfort care (8) Tobacco abuse: Plan: History of tobacco use; quit 1 year ago (9) Polymyalgia rheumatica: Plan: Patient is normally on prednisone 10 mg daily Mildly hypotensive in the ED Comfort care (10) Pulmonary cachexia due to chronic obstructive pulmonary disease: (11) (HFpEF) heart failure with preserved ejection fraction: Plan Comfort care DNR/DNI Regular diet I think patient is actively dying. She should be in the hospital until she passes. Admission and Anticipated Discharge Date Admission Date: August 23, 2023 Subjective Patient appears comfortable Review of Systems Review of Systems: Other Comfort care Physical Exam Physical Exam: General appearance: Patient appears comfortable Results & Data Results & Data Vital Signs (Past 12 Hours) Vital Signs Temp Pulse Resp BP Pulse Ox O2 Del Method O2 Flow Rate 08/31/23 08:00 Nasal Cannula 5 08/31/23 07:49 37 C 116 H 16 103/68 91 PG Care Time/CCT Total # of Minutes Spent Total Time Spent with Patient: Total time spent is greater than 50% in coordination of care (as documented) at patient's floor/unit and/or counseling patient: Coding Level of Care Code 47723 SUB INP/OBS CARE Diagnoses Primary small cell malignant neoplasm of lung, stage 4 C34.90 Fracture of pubis without disruption of pelvic ring S32.509A Acute and chronic respiratory failure with hypoxia J96.21 Pneumonia J18.9 Laterality: unspecified laterality Lung location: unspecified part of lung Pneumonia type: due to unspecified organism Megaloblastic anemia D53.1 Elevated troponin R79.89 Paroxysmal atrial fibrillation I48.0 Tobacco abuse Z72.0 Polymyalgia rheumatica M35.3 Pulmonary cachexia due to chronic obstructive pulmonary disease R64; J44.9 (HFpEF) heart failure with preserved ejection fraction I50.30 (4) Pneumonia Laterality: unspecified laterality Lung location: unspecified part of lung Pneumonia type: due to unspecified organism Qualified Code(s): J18.9 - Pneu monia, unspecified organism
[2023-09-01] MEDS: GLYCOPYRROLATE 0.2 MG/ML VIAL IV PRN (08:23)
--- NOTE | 2023-09-01 12:48 | Hospitalist Progress Note ---
Date of Service September 01, 2023 Assessment & Plan (1) Primary small cell malignant neoplasm of lung, stage 4: Plan: Patient is now comfort care Palliative care on board Appreciate oncology recommendation (2) Fracture of pubis without disruption of pelvic ring: Plan: Patient sustained ground-level fall at 0500 on 08/22 Struck his left hip and left neck; no head strike; no LOC; on Xarelto Patient was not using walker/cane at the time Head/cervical spine CT revealed no acute findings Hip and pelvic x-ray revealed acute nondisplaced left pubic ring fracture Will hold Xarelto for now in the setting of acute fall/pelvic ring fracture Acetaminophen 1000 mg p.o. q8h for pain Oxycodone 5-10 mg p.o. q6h as needed for breakthrough pain Activity: Bedrest for now Comfort care (3) Acute and chronic respiratory failure with hypoxia: Plan: Patient is at 2 L NC chronically at baseline, but has required increased oxygen this past week up to 34 L Comfort care, oxygen as needed for cough (4) Pneumonia: Plan: Comfort care (5) Megaloblastic anemia: Plan: Comfort care (6) Elevated troponin: Plan: Comfort care (7) Paroxysmal atrial fibrillation: Plan: Not in A-fib on arrival Discontinue metoprolol, amiodarone and Xarelto Comfort care (8) Tobacco abuse: Plan: History of tobacco use; quit 1 year ago (9) Polymyalgia rheumatica: Plan: Patient is normally on prednisone 10 mg daily Mildly hypotensive in the ED Comfort care (10) Pulmonary cachexia due to chronic obstructive pulmonary disease: (11) (HFpEF) heart failure with preserved ejection fraction: Plan Comfort care DNR/DNI Regular diet I will keep her in the hospital over the weekend. If daughter is not able to take care of her at home, SNF can be considered next week. Admission and Anticipated Discharge Date Admission Date: August 23, 2023 Subjective Per nurse, patient was awake. Fed herself. Spoke on the phone with her daughter. She was given a dose of morphine for air hunger. During my encounter. The patient does not seem to be uncomfortable. She was able to answer my questions appropriately. Review of Systems Review of Systems: All systems reviewed & are unremarkable except as noted in Subjective Physical Exam Physical Exam: General appearance: Patient appears comfortable PG Care Time/CCT Total # of Minutes Spent Total Time Spent with Patient: Total time spent is greater than 50% in coordination of care (as documented) at patient's floor/unit and/or counseling patient: Coding Level of Care Code 39830 SUB INP/OBS CARE 2/35MIN Diagnoses Primary small cell malignant neoplasm of lung, stage 4 C34.90 Fracture of pubis without disruption of pelvic ring S32.509A Acute and chronic respiratory failure with hypoxia J96.21 Pneumonia J18.9 Laterality: unspecified laterality Lung location: unspecified part of lung Pneumonia type: due to unspecified organism Megaloblastic anemia D53.1 Elevated troponin R79.89 Paroxysmal atrial fibrillation I48.0 Tobacco abuse Z72.0 Polymyalgia rheumatica M35.3 Pulmonary cachexia due to chronic obstructive pulmonary disease R64; J44.9 (HFpEF) heart failure with preserved ejection fraction I50.30 (4) Pneumonia Laterality: unspecified laterality Lung location: unspecified part of lung Pneumonia type: due to unspecified organism Qualified Code(s): J18.9 - Pneumonia, unspecified organism
--- NOTE | 2023-09-02 15:29 | Hospitalist Progress Note ---
Date of Service September 02, 2023 Assessment & Plan (1) Primary small cell malignant neoplasm of lung, stage 4: Plan: Patient is now comfort care Palliative care on board Appreciate oncology recommendation (2) Fracture of pubis without disruption of pelvic ring: Plan: Patient sustained ground-level fall at 0500 on 08/22 Struck his left hip and left neck; no head strike; no LOC; on Xarelto Patient was not using walker/cane at the time Head/cervical spine CT revealed no acute findings Hip and pelvic x-ray revealed acute nondisplaced left pubic ring fracture Will hold Xarelto for now in the setting of acute fall/pelvic ring fracture Acetaminophen 1000 mg p.o. q8h for pain Oxycodone 5-10 mg p.o. q6h as needed for breakthrough pain Activity: Bedrest for now Comfort care (3) Acute and chronic respiratory failure with hypoxia: Plan: Patient is at 2 L NC chronically at baseline, but has required increased oxygen this past week up to 34 L Comfort care, oxygen as needed for cough (4) Pneumonia: Plan: Comfort care (5) Megaloblastic anemia: Plan: Comfort care (6) Elevated troponin: Plan: Comfort care (7) Paroxysmal atrial fibrillation: Plan: Not in A-fib on arrival Discontinue metoprolol, amiodarone and Xarelto Comfort care (8) Tobacco abuse: Plan: History of tobacco use; quit 1 year ago (9) Polymyalgia rheumatica: Plan: Patient is normally on prednisone 10 mg daily Mildly hypotensive in the ED Comfort care (10) Pulmonary cachexia due to chronic obstructive pulmonary disease: (11) (HFpEF) heart failure with preserved ejection fraction: Plan Comfort care DNR/DNI Regular diet I spoke to the daughter on the phone. The daughter expressed her frustration about the fact that the patient's clinical condition, prognosis, goals of care was discussed with the patient when the daughter is the POA. I communicated with the nurse, Pippa Reardon (who was present during my conversation with the patient in the morning) about the plan of care and the conversation with the daughter. Admission and Anticipated Discharge Date Admission Date: August 23, 2023 Subjective Per nursing staff, patient has been more awake and alert lately over the past 2 days. This morning, during my encounter, the nurse and the aide were in her room helping her with hygiene. The patient was awake and conversant. She asked me about her clinical condition and in particular asked me about what had been going on in the past few days. I had a detailed conversation with her. Patient is alert and awake. She is conversant. She is in a sound state of mind. She was explained that she has cancer and she was not tolerating chemotherapy well. Decision was made to stop chemotherapy after oncologist evaluation. Her cancer is incurable. It was decided after discussion with family and palliative care to switch her to a comfort care goal. The patient processed this information well. When asked if she had any questions, she stated that she would have to think about it some more. I reiterated that her comfort is our goal and she stated that she was comfortable. Review of Systems Review of Systems: All systems reviewed & are unremarkable except as noted in Subjective Physical Exam Physical Exam: General appearance: Patient appears comfortable Results & Data Results & Data Vital Signs (Past 12 Hours) Vital Signs O2 Del Method O2 Flow Rate 09/02/23 07:32 Nasal Cannula 6 PG Care Time/CCT Total # of Minutes Spent Total Time Spent with Patient: Total time spent is greater than 50% in coordination of care (as documented) at patient's floor/unit and/or counseling patient: Coding Level of Care Code 48881 SUB INP/OBS CARE 2/35MIN Diagnoses Primary small cell malignant neoplasm of lung, stage 4 C34.90 Fracture of pubis without disruption of pelvic ring S32.509A Acute and chronic respiratory failure with hypoxia J96.21 Pneumonia J18.9 Laterality: unspecified laterality Lung location: unspecified part of lung Pneumonia type: due to unspecified organism Megaloblastic anemia D53.1 Elevated troponin R79.89 Paroxysmal atrial fibrillation I48.0 Tobacco abuse Z72.0 Polymyalgia rheumatica M35.3 Pulmonary cachexia due to chronic obstructive pulmonary disease R64; J44.9 (HFpEF) heart failure with preserved ejection fraction I50.30 (4) Pneumonia Laterality: unspecified laterality Lung location: unspecified part of lung Pneumonia type: due to unspecified organism Qualified Code(s): J18.9 - Pneumonia, unspecified organism
--- NOTE | 2023-09-03 11:31 | Hospitalist Progress Note ---
Date of Service September 03, 2023 Assessment & Plan (1) Primary small cell malignant neoplasm of lung, stage 4: Plan: Patient is now comfort care Palliative care on board Patient has somewhat stabilized although with significantly waxing and waning mental status and intermittent deteriorations, overall likely has a days to weeks of prognosis. As patient does not appear in the active phase of dying at this time, have discussed and will pursue out of hospital hospice options and begin to set these up. Extensive discussion with daughter with both hospitalist and palliative care provider 09/03/2023. In the meantime we will continue current care, and should she enter the active phase of dying then will remain inpatient on [facility]. (2) Fracture of pubis without disruption of pelvic ring: Plan: Patient sustained ground-level fall at 0500 on 08/22 Struck his left hip and left neck; no head strike; no LOC; on Xarelto Patient was not using walker/cane at the time Head/cervical spine CT revealed no acute findings Hip and pelvic x-ray revealed acute nondisplaced left pubic ring fracture Acetaminophen 1000 mg p.o. q8h for pain Oxycodone 5-10 mg p.o. q6h as needed for breakthrough pain Activity: Bedrest for now. She has a pubic ramus fracture not a femoral fracture so may weight-bear as tolerated, however given her poor conditioning and weakness do not recommend that she attempt any ambulation without directed 2-1 assist, and given her frailty discussed the risk of her following and being further injured and Carla is okay remaining on bedrest at this time Comfort care (3) Acute and chronic respiratory failure with hypoxia: Plan: Comfort care, oxygen as needed for comfort. Would not escalate this to be on 4 L. May treat dyspnea with morphine if needed (4) Pneumonia: Plan: Comfort care (5) Megaloblastic anemia: Plan: Comfort care (6) Elevated troponin: Plan: Comfort care (7) Paroxysmal atrial fibrillation: Plan: Not in A-fib on arrival Discontinue metoprolol, amiodarone and Xarelto Comfort care (8) Tobacco abuse: Plan: History of tobacco use; quit 1 year ago (9) Polymyalgia rheumatica: Plan: Patient is normally on prednisone 10 mg daily Mildly hypotensive in the ED Comfort care (10) Pulmonary cachexia due to chronic obstructive pulmonary disease: (11) (HFpEF) heart failure with preserved ejection fraction: Plan Comfort care DNR/DNI Regular diet Admission and Anticipated Discharge Date Admission Date: August 23, 2023 Subjective Carla is seen at the bedside this morning. She is somnolent but awakens easily. Reports that she is tired and would like to go back to sleep otherwise have no acute concerns. She is seen in the afternoon on reassessment with multiple family members present. Expressed some frustration regarding frequency of communication in the past, and daughter would like to be present for provider visits and updates in the future. Expressed concerns about having to look towards out of hospital hos pice as Acrla has seemed to stabilize although continues to have significantly waxing and waning mental status. They do not currently have hospice facilities or appropriate care set up at home, and have not fully reached out to do this yet. Discussed that based on Carla's progression she could enter the active phase of dying however her day-to-day is improved and it is reasonable to pursue outpatient hospice at this time, and should she decline can defer at that time if needed. Discussed various options including home, SNF, and that hospice alone is not 24 hours but provide periodic checks with increasing frequency as patient's clinical condition changes. Daughter will meet with case management and palliative care today to work out a plan should patient prognosis stay consistent with days to weeks. Physical Exam Physical Exam: General: To name and year NAD. Cooperative. HEENT: Atraumatic, normocephalic. Pulm: Symmetrical chest rise. No increased work of breathing. No respiratory distress. Cardiac: Radial pulses intact and symmetrical Results & Data Results & Data Vital Signs (Past 12 Hours) Vital Signs O2 Del Method O2 Flow Rate 09/03/23 07:20 Nasal Cannula 6 PG Care Time/CCT Total # of Minutes Spent Total Time Spent with Patient: Total time spent is greater than 50% in coordination of care (as documented) at patient's floor/unit and/or counseling patient: Coding Level of Care Code 82272 SUB INP/OBS CARE 3/50MIN Diagnoses Primary small cell malignant neoplasm of lung, stage 4 C34.90 Fracture of pubis without disruption of pelvic ring S32.509A Acute and chronic respiratory failure with hypoxia J96.21 Pneumonia J18.9 Laterality: unspecified laterality Lung location: unspecified part of lung Pneumonia type: due to unspecified organism Megaloblastic anemia D53.1 Elevated troponin R79.89 Paroxysmal atrial fibrillation I48.0 Tobacco abuse Z72.0 Polymyalgia rheumatica M35.3 Pulmonary cachexia due to chronic obstructive pulmonary disease R64; J44.9 (HFpEF) heart failure with preserved ejection fraction I50.30 (4) Pneumonia Laterality: unspecified laterality Lung location: unspecified part of lung Pneumonia type: due to unspecified organism Qualified Code(s): J18.9 - Pneumonia, unspecified organism
[2023-09-03] MEDS: ACETAMINOPHEN 325 MG TAB PO PRN (17:52)
--- NOTE | 2023-09-03 20:59 | Palliative Family Discussion ---
Date of Service September 03, 2023 Patient Directed Conference Time of Meetinp-2p, 2 separate meetings 1p-140p with daughter/poa and then 140-2pm with pt and dtr at bedside Participants: Ana Armstrong DNP Patient participation: yes Patient Support System: yes dtr and son in law Other Healthcare Provider Participation: None Meeting Location: conference room 6 and then bedside with pt Advanced Directive available: reaffirms dnr / dni The patient's surrogate medical decision maker participated: dtr is mPOA An ACP face to face eeting was held for ANA LUISA HOBBS. This meeting was necessary for determining the appropriate course of treatment. Topics of Discussion Topics of Discussion: 1. IMproved from admission but pubic ramus fx is not surgically fixable and weight bearing will be limited by pain intolerance 2. She is eager to return home but has safety concerns, no around the clock caregiver. She cannot / does not want to move to dtr home. 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 She would have limited support in morning before roommate goes to work then daughter in later afternoon to evenings and roommate overnight. We spoke about home hospice as a support, she was a pt with [facility] 3. The other option is dc to SNF, ok to trial rehab and see how she does but if she gets worse then move to comfort. SNF can begin process for [place] coverage, dtr states pt will qualify, she has no substantial assets. Other Content of Meetin. Opportunity given for participants to speak and ask questions. 2. Participants were assured of attention to patient comfort. 3. Reassurance provided. 4. Support was provided for informed, good-odin decisions. 5. Emotions expressed by family were acknowledged and addressed. 6. Plan of Care: They are leaning towards SNF with ?trial rehab and comfort care, no return to hospital/engage hospice when declining. If it helps improve strength can revisit returning home after SNF with hospice but the lack of ATC caregivers and her falls makes this high risk. They will discuss further as a family tonight. Ana Luisa wants some time to think about all of this on her own before making any decision. Care mgt asked to follow up with dtr tomorrow per family request. TS 75min Thank you for allowing us to participate in the ongoing care of this patient. Please don't hesitate to call or page with any additional concerns. Dr. Ana Armstrong DNP Director, Palliative Care
--- NOTE | 2023-09-04 15:54 | Hospitalist Progress Note ---
Date of Service September 04, 2023 Assessment & Plan (1) Primary small cell malignant neoplasm of lung, stage 4: Plan: Patient is now comfort care but is not with imminent Palliative medicine consult appreciated Has decided to pursue possible short term rehab stay with goal of not returning to the hospital if she declines again in the future (2) Fracture of pubis without disruption of pelvic ring: Plan: Patient sustained ground-level fall at 0500 on 08/22 Struck left hip and left neck; no head strike; no LOC; on Xarelto Patient was not using walker/cane at the time Head/cervical spine CT revealed no acute findings Hip and pelvic x-ray revealed acute nondisplaced left pubic ring fracture She has a pubic ramus fracture so may weight-bear as tolerated with assistance Continue pain control with scheduled IV morphine and prn tylenol (3) Acute and chronic respiratory failure with hypoxia: Plan: Comfort care, oxygen as needed for comfort May treat dyspnea with morphine if needed (4) Pneumonia: Plan: Comfort care, not on antibiotics (5) Megaloblastic anemia: Plan: Comfort care no labs dc folate (6) Paroxysmal atrial fibrillation: Plan: Not in A-fib on arrival Discontinued metoprolol, amiodarone and Xarelto Comfort care (7) Tobacco abuse: Plan: History of tobacco use; quit 1 year ago (8) Polymyalgia rheumatica: Plan: Patient is normally on prednisone 10 mg daily-continue Mildly hypotensive in the ED and now normalized after stress dosed steroids Comfort care (9) Pulmonary cachexia due to chronic obstructive pulmonary disease: Plan: noted (10) (HFpEF) heart failure with preserved ejection fraction: Plan: noted not on diuretics, no evidence of respiratory distress Dysuria-removed Armstrong, check UA but doubt UTI Constipation-no BM since 08/22/23--> has a long h/o constipation and now on morphine--> add on senna 17.2mg po daily and give bisacodyl MA x 1 now. 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 Has not moved bowels in 12 days. Is in good spirits and asks me "for better health." I discussed her care with Palliative Physical Exam Constitutional: WD/WN, vitals as above Respiratory: normal respiratory effort, lungs clear to auscultation Cardiovascular: Rate/Rhythm: regular rate Gastrointestinal (Abdomen): normal bowel sounds, soft, nontender, no hepatosplenomegaly Results & Data Results & Data Vital Signs (Past 12 Hours) Vital Signs Pulse Ox O2 Del Method O2 Flow Rate 09/04/23 14:50 92 09/04/23 09:00 Nasal Cannula 6 PG Care Time/CCT Total # of Minutes Spent Total Time Spent with Patient: Total time spent is greater than 50% in coordination of care (as documented) at patient's floor/unit and/or counseling patient: Coding Level of Care Code 29389 SUB INP/OBS CARE 05/24MIN Diagnoses Primary small cell malignant neoplasm of lung, stage 4 C34.90 Fracture of pubis without disruption of pelvic ring S32.509A Acute and chronic respiratory failure with hypoxia J96.21 Pneumonia J18.9 Laterality: unspecified laterality Lung location: unspecified part of lung Pneumonia type: due to unspecified organism Megaloblastic anemia D53.1 Paroxysmal atrial fibrillation I48.0 Tobacco abuse Z72.0 Polymyalgia rheumatica M35.3 Pulmonary cachexia due to chronic obstructive pulmonary disease R64; J44.9 (HFpEF) heart failure with preserved ejection fraction I50.30 (4) Pneumonia Laterality: unspecified laterality Lung location: unspecified part of lung Pneumonia type: due to unspecified organism Qualified Code(s): J18.9 - Pneumonia, unspecified organism
--- NOTE | 2023-09-04 16:17 | Palliative Care Progress Note ---
Date of Service September 04, 2023 Assessment & Plan (1) Dyspnea and respiratory abnormalities: (2) Fracture of pubis without disruption of pelvic ring: (3) Weakness generalized: (4) Muscular deconditioning: (5) Hearing deficit: (6) Palliative care by specialist: (7) Acute and chronic respiratory failure with hypoxia: (8) Pulmonary cachexia due to chronic obstructive pulmonary disease: (9) Anxiety about health: (10) Anxiety associated with cancer diagnosis: (11) Declining performance status: Plan She has stabilized with comfort focused care Not enough support to return home, agreeable to SNF trial - may need to go as rehab stay, awaiting PT eval Bowel regimen for constipation Inc hydration, add cranberry; no overt UTI sx right now - no discolored urine, no fevers Thank you for allowing us to participate in the ongoing care of this patient. Please don't hesitate to call or page with any additional concerns. Efrain Armstrong DNP Palliative Care Admission and Anticipated Discharge Date Admission Date: August 23, 2023 Subjective Resting semi reclined in bed had bath and shampoo/hair styled states she feels more human they have decided to pursue SNF placement she is feeling constipated and burning at miranda site, worried about UTI last BM she reports >10 days denies nausea, no vomiting Review of Systems Review of Systems: All systems reviewed & are unremarkable except as noted in Subjective Physical Exam Physical Exam: awake, alert, a slightly salty mood today which is close to her usual baseline :) resting in bed no resp distress, diminished lung sounds +very fatigued S1S2, no JVD abd soft, BS diminished, mild tenderness lower quadrant, mild suprapubic tenderness color pale skin pale, cool Results & Data Vital Signs (Past 12 Hours) Vital Signs Pulse Ox O2 Del Method O2 Flow Rate 09/04/23 14:50 92 09/04/23 09:00 Nasal Cannula 6 PG Care Time/CCT Total # of Minutes Spent Total Time Spent: 60 Total Time Spent with Patient: Total time spent is greater than 50% in coordination of care (as documented) at patient's floor/unit and/or counseling patient: [place] [id number] SUB INP/OBS CARE 3/50MIN Patient Type Established History Comprehensive Exam Comprehensive Medical Decision Making High Complexity Diagnoses Dyspnea and respiratory abnormalities R06.00; R06.89 Fracture of pubis without disruption of pelvic ring S32.509A Weakness generalized R53.1 Muscular deconditioning R29.898 Bilateral hearing loss, unspecified hearing loss type H91.93 Hearing loss type: unspecified Laterality: bilateral Palliative care by specialist Z51.5 Acute and chronic respiratory failure with hypoxia J96.21 Pulmonary cachexia due to chronic obstructive pulmonary disease R64; J44.9 Anxiety about health R45.89 Anxiety associated with cancer diagnosis F41.1; C80.1 Declining performance status R53.81 (5) Hearing deficit Hearing loss type: unspecified Laterality: bilateral Qualified Code(s): H91.93 - Unspecified hearing loss, bilateral
[2023-09-04] MEDS: SENNA 8.6 MG TAB PO SCH (16:42)
[2023-09-04] MEDS: bisacodyL 10 MG SUPP PR STA (16:42)
[2023-09-04 17:19] LABS: Appearance Urine Turbid (Clear); Bacteria Urine Automated 4+ (None Seen); Bilirubin Urine Negative (Negative); Blood Urine 1+ (Negative); Color Urine Yellow; Glucose Urine UA Negative (Negative); Ketones Urine Trace (Negative); Leukocyte Esterase Urine 3+ (Negative); Nitrite Urine Negative (Negative); Protein Urine 1+ (Negative); RBC Urine Automated >20 /hpf (0-2); Renal Epithelial Cells Urine Present /lpf (None Presnt); Specific Gravity Urine 1.008 (1.000-1.030); Urobilinogen Urine Negative (Negative); WBC Urine Automated >50 /hpf (0-5); pH Urine 8.5 (4.5-7.5)
[2023-09-04] MEDS: cefTRIAXone SODIUM 1,000 MG/50 ML BAG IV SCH (20:47)
--- NOTE | 2023-09-05 13:23 | Palliative Care Progress Note ---
Date of Service September 05, 2023 Assessment & Plan (1) Dyspnea and respiratory abnormalities: (2) Weakness generalized: (3) Declining performance status: (4) Fracture of pubis without disruption of pelvic ring: (5) Muscular deconditioning: (6) Hearing deficit: (7) Anxiety about health: (8) Palliative care by specialist: (9) Acute and chronic respiratory failure with hypoxia: (10) Pulmonary cachexia due to chronic obstructive pulmonary disease: (11) Anxiety associated with cancer diagnosis: Plan She is agreeable to SNF with trial rehab, if acutely worsening would desire comfort, no return to hospital. Supportive counseling and reassurance provided. She reaffirms overall goal os [employer], improve QOL and return home with addition of hospice if possible. Thank you for allowing us to participate in the ongoing care of this patient. Please don't hesitate to call or page with any additional concerns. Dr. Ana Armstrong DNP Director, Palliative Care Admission and Anticipated Discharge Date Admission Date: August 23, 2023 Subjective Semi reclined in bed was napping but awake and alert when name was called reports she has been able to reposition herself in bed bowel regimen changes were successful - large BM last night and feeling signif relief appetite stable, no issues with heartburn or swallowing no new complaints Review of Systems Review of Systems: All systems reviewed & are unremarkable except as noted in Subjective Physical Exam Physical Exam: awake, alert, mood seems lifted bitemp wasting, perrla, eomi's lungs diminished, no crackles or wheezing, resp effort WAL at rest, no conversational dyspnea S1S2, no JVD abd soft, BS diminished, NTP gen weakness skin pale, warm Results & Data Vital Signs (Past 12 Hours) Vital Signs O2 Del Method O2 Flow Rate 09/05/23 09:32 Nasal Cannula 6 PG Care Time/CCT Total # of Minutes Spent Total Time Spent: 65 Total Time Spent with Patient: Total time spent is greater than 50% in coordination of care (as documented) at patient's floor/unit and/or counseling patient: [place] [id number] SUB INP/OBS CARE 3/50MIN Patient Type Established History Comprehensive Exam Comprehensive Medical Decision Making High Complexity Diagnoses Dyspnea and respiratory abnormalities R06.00; R06.89 Weakness generalized R53.1 Declining performance status R53.81 Fracture of pubis without disruption of pelvic ring S32.509A Muscular deconditioning R29.898 Bilateral hearing loss, unspecified hearing loss type H91.93 Hearing loss type: unspecified Laterality: bilateral Anxiety about health R45.89 Palliative care by specialist Z51.5 Acute and chronic respiratory failure with hypoxia J96.21 Pulmonary cachexia due to chronic obstructive pulmonary disease R64; J44.9 Anxiety associated with cancer diagnosis F41.1; C80.1 (6) Hearing deficit Hearing loss type: unspecified Laterality: bilateral Qualified Code(s): H91.93 - Unspecified hearing loss, bilateral
--- NOTE | 2023-09-05 19:33 | Hospitalist Progress Note ---
Date of Service September 05, 2023 Assessment & Plan (1) Primary small cell malignant neoplasm of lung, stage 4: Plan: Patient is now comfort care but is not with imminent Palliative medicine consult appreciated Has decided to pursue possible short term rehab stay with goal of not returning to the hospital if she declines again in the future Morphine prn SOB (2) Fracture of pubis without disruption of pelvic ring: Plan: Patient sustained ground-level fall at 0500 on 08/22 Struck left hip and left neck; no head strike; no LOC; on Xarelto Patient was not using walker/cane at the time Head/cervical spine CT revealed no acute findings Hip and pelvic x-ray revealed acute nondisplaced left pubic ring fracture She has a pubic ramus fracture so may weight-bear as tolerated with assistance Continue pain control with IV morphine and prn tylenol. She does not want the scheduled morphine so will make prn only (3) Acute and chronic respiratory failure with hypoxia: Plan: Comfort care, oxygen as needed for comfort May treat dyspnea with morphine if needed (4) UTI (urinary tract infection): Plan: felt dysuria on 09/03 Armstrong removed, UA abnormal ,Ur cx [place] growth started ceftriaxone 1000mg IV daily follow ur cx (5) Pneumonia: Plan: Comfort care, not on antibiotics (6) Megaloblastic anemia: Plan: Comfort care no labs dc folate (7) Paroxysmal atrial fibrillation: Plan: Not in A-fib on arrival Discontinued metoprolol, amiodarone and Xarelto Comfort care (8) Tobacco abuse: Plan: History of tobacco use; quit 1 year ago (9) Polymyalgia rheumatica: Plan: Patient is normally on prednisone 10 mg daily-continue Mildly hypotensive in the ED and now normalized after stress dosed steroids Comfort care (10) Pulmonary cachexia due to chronic obstructive pulmonary disease: Plan: noted (11) (HFpEF) heart failure with preserved ejection fraction: Plan: noted not on diuretics, no evidence of respiratory distress Ghkmbxbncdcz-ushoceer-kis large BM 09/03 after no BM in previous 12 days--> has a long h/o constipation and now on morphine--> continue on senna 17.2mg po daily and bisacodyl MA prn. 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 Only has pain with movement in bed in the left hip. Says she wants to get strong enough to go home and "I want to keep fighting." had a large BM yesterday, none today Physical Exam Constitutional: WD/WN, vitals as above Respiratory: normal respiratory effort, lungs clear to auscultation Cardiovascular: Rate/Rhythm: regular rate Gastrointestinal (Abdomen): normal bowel sounds, soft, nontender, no hepatosplenomegaly Results & Data Results & Data Vital Signs (Past 12 Hours) Vital Signs O2 Del Method O2 Flow Rate 09/05/23 09:32 Nasal Cannula 6 Laboratory Results UA and Ur cx reviewed PG Care Time/CCT Total # of Minutes Spent Total Time Spent with Patient: Total time spent is greater than 50% in coordination of care (as documented) at patient's floor/unit and/or counseling patient: Coding Level of Care Code 12862 SUB INP/OBS CARE 05/24MIN Diagnoses Primary small cell malignant neoplasm of lung, stage 4 C34.90 Fracture of pubis without disruption of pelvic ring S32.509A Acute and chronic respiratory failure with hypoxia J96.21 UTI (urinary tract infection) N39.0 Pneumonia J18.9 Laterality: unspecified laterality Lung location: unspecified part of lung Pneumonia type: due to unspecified organism Megaloblastic anemia D53.1 Paroxysmal atrial fibrillation I48.0 Tobacco abuse Z72.0 Polymyalgia rheumatica M35.3 Pulmonary cachexia due to chronic obstructive pulmonary disease R64; J44.9 (HFpEF) heart failure with preserved ejection fraction I50.30 (5) Pneumonia Laterality: unspecified laterality Lung location: unspecified part of lung Pneumonia type: due to unspecified organism Qualified Code(s): J18.9 - Pneumonia, unspecified organism
[2023-09-05 21:31] VITALS: TEMP 97.9; O2SAT 97
[2023-09-06] MEDS: SENNA 8.6 MG TAB PO ONE (09:56)
[2023-09-06] MEDS: bisacodyL 10 MG SUPP PR STA (09:56)
--- NOTE | 2023-09-06 19:08 | Hospitalist Progress Note ---
Date of Service September 06, 2023 Assessment & Plan (1) Primary small cell malignant neoplasm of lung, stage 4: Plan: Patient admitted with SOB and left pubic ramus fracture after a fall, with acute on chronic respiratory failure, and hypotension, decision made to pursue [employer]ING [employer]ILER on admission However, since that time she has recovered and is alert, awake, oriented x 3, still with pain in hip but hesitant to take opioids as does not like to feel groggy Palliative medicine consult appreciated Has decided to pursue possible short term rehab stay with goal of not returning to the hospital if she declines again in the future Morphine prn SOB, pain Ativan prn insomnia or anxiety No further cancer treatments planned (2) Fracture of pubis without disruption of pelvic ring: Plan: Patient sustained ground-level fall at 0500 on 08/22 Struck left hip and left neck; no head strike; no LOC; on Xarelto Patient was not using walker/cane at the time Head/cervical spine CT revealed no acute findings Hip and pelvic x-ray revealed acute nondisplaced left pubic ring fracture She has a pubic ramus fracture so may weight-bear as tolerated with assistance Continue pain control with IV morphine and prn tylenol. She does not want the scheduled morphine so have since changed order to prn only (3) Acute and chronic respiratory failure with hypoxia: Plan: Comfort care, oxygen as needed for comfort May treat dyspnea with morphine if needed (4) UTI (urinary tract infection): Plan: felt dysuria on 09/03 Armstrong removed, UA abnormal ,Ur cx mixed bhumi started ceftriaxone 1000mg IV daily and completed 3 day course (5) Pneumonia: Plan: Comfort care, not on antibiotics has had numerous admissions for recurrent suspected PNA (6) Megaloblastic anemia: Plan: Comfort care no labs dc folate (7) Paroxysmal atrial fibrillation: Plan: Not in A-fib on arrival Discontinued metoprolol, amiodarone and Xarelto Comfort care (8) Tobacco abuse: Plan: History of tobacco use; quit 1 year ago (9) Polymyalgia rheumatica: Plan: Patient is normally on prednisone 10 mg daily-continue Mildly hypotensive in the ED and now normalized after stress dosed steroids Comfort care (10) Pulmonary cachexia due to chronic obstructive pulmonary disease: Plan: noted (11) (HFpEF) heart failure with preserved ejection fraction: Plan: noted not on diuretics, no evidence of respiratory distress Sdcixmtnryyn-nmhfnbht-cgx large BM 09/03 after no BM in previous 12 days--> has a long h/o constipation and now on morphine--> continue on senna 17.2mg po daily and bisacodyl ME daily prn. 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 Still awaiting daughter geri take the tour Admission and Anticipated Discharge Date Admission Date: August 23, 2023 Subjective Pt had 2 very small hard BMs this AM but feels uncomfortable with constipation Otherwise wants to make sure the ativan is available for sleep as needed Still awaiting daughter to check out [facility] to see if agreeable to pt going there for SNF Physical Exam Constitutional: WD/WN, vitals as above Respiratory: normal respiratory effort; no cough Results & Data Results & Data Vital Signs (Past 12 Hours) Vital Signs O2 Del Method O2 Flow Rate 09/06/23 09:02 Nasal Cannula 6 Laboratory Results Ur cx reviewed-mixed bhumi PG Care Time/CCT Total # of Minutes Spent Total Time Spent with Patient: Total time spent is greater than 50% in coordination of care (as documented) at patient's floor/unit and/or counseling patient: Coding Level of Care Code 07907 SUB INP/OBS CARE 05/24MIN Diagnoses Primary small cell malignant neoplasm of lung, stage 4 C34.90 Fracture of pubis without disruption of pelvic ring S32.509A Acute and chronic respiratory failure with hypoxia J96.21 UTI (urinary tract infection) N39.0 Pneumonia J18.9 Laterality: unspecified laterality Lung location: unspecified part of lung Pneumonia type: due to unspecified organism Megaloblastic anemia D53.1 Paroxysmal atrial fibrillation I48.0 Tobacco abuse Z72.0 Polymyalgia rheumatica M35.3 Pulmonary cachexia due to chronic obstructive pulmonary disease R64; J44.9 (HFpEF) heart failure with preserved ejection fraction I50.30 (5) Pneumonia Laterality: unspecified laterality Lung location: unspecified part of lung Pneumonia type: due to unspecified organism Qualified Code(s): J18.9 - Pneumonia, unspecified organism
[2023-09-07] MEDS: LORazepam 0.5 MG in SYRINGE 0.25 ML IV PRN (11:40)
[2023-09-07] MEDS: bisacodyL 10 MG SUPP PR PRN (15:12)
[2023-09-07 16:19] VITALS: BP 107/67; RESP 18
--- NOTE | 2023-09-07 18:35 | Hospitalist Progress Note ---
Date of Service September 07, 2023 Assessment & Plan (1) Primary small cell malignant neoplasm of lung, stage 4: Plan: Patient admitted with SOB and left pubic ramus fracture after a fall, with acute on chronic respiratory failure, and hypotension, decision made to pursue FILTER HELPER on admission However, since that time she has recovered and is alert, awake, oriented x 3, still with pain in hip but hesitant to take opioids as does not like to feel groggy Palliative medicine consult appreciated Has decided to pursue short term rehab stay with goal of not returning to the hospital if she declines again in the future -- Waiting on bed availability at [facility] 09/07/23. Morphine prn SOB, pain Ativan prn insomnia or anxiety No further cancer treatments planned (2) Fracture of pubis without disruption of pelvic ring: Plan: Patient sustained ground-level fall at 0500 on 08/22 Struck left hip and left neck; no head strike; no LOC; on Xarelto Patient was not using walker/cane at the time Head/cervical spine CT revealed no acute findings Hip and pelvic x-ray revealed acute nondisplaced left pubic ring fracture She has a pubic ramus fracture so may weight-bear as tolerated with assistance Continue pain control with IV morphine and prn tylenol. She does not want the scheduled morphine so have since changed order to prn only (3) Acute and chronic respiratory failure with hypoxia: Plan: Comfort care, oxygen as needed for comfort May treat dyspnea with morphine if needed (4) UTI (urinary tract infection): Plan: felt dysuria on 09/03 Armstrong removed, UA abnormal ,Ur cx mixed bhumi started ceftriaxone 1000mg IV daily and completed 3 day course (5) Pneumonia: Plan: Comfort care, not on antibiotics has had numerous admissions for recurrent suspected PNA (6) Megaloblastic anemia: Plan: Comfort care no labs dc folate (7) Paroxysmal atrial fibrillation: Plan: Not in A-fib on arrival Discontinued metoprolol, amiodarone and Xarelto Comfort care (8) Tobacco abuse: Plan: History of tobacco use; quit 1 year ago (9) Polymyalgia rheumatica: Plan: Patient is normally on prednisone 10 mg daily-continue Mildly hypotensive in the ED, which normalized after stress dosed steroids Comfort care (10) Pulmonary cachexia due to chronic obstructive pulmonary disease: Plan: noted (11) (HFpEF) heart failure with preserved ejection fraction: Plan: noted not on diuretics, no evidence of respiratory distress Dhdxebirzedz-lwtmyiaj-kgf large BM 5/7 after no BM in previous 12 days--> has a long h/o constipation and now on morphine--> continue on senna 17.2mg po daily and bisacodyl CT daily prn. Continue docusate bid Plan DVT proph-none on FILTER HELPER [facility] and transition to hospice if patient declines further. Discussed plan with family at bedside. Patient's home meds of Senokot Gummies and Breztri inhaler ordered per family request. Anoro and Arnuity inhalers discontinued. Admission and Anticipated Discharge Date Admission Date: August 23, 2023 Subjective Patient seen and evaluated at bedside with daughter and son-in-law. Patient notes that she would like to have more frequent and looser bowel movements. Otherwise, she has no complaints at this time. Case management met with the daughter at bedside this afternoon, and reported that she would like for her mom to go to [facility] for rehab. We are currently waiting for [facility] to call back with when a bed would be available. Physical Exam Physical Exam: General: No acute distress, nondiaphoretic. Chronically ill-appearing. Bitemporal wasting. Generalized weakness. Skin: The skin was without rashes, erythema, edema, or bruising. Cardiac: Regular rate and rhythm without murmurs gallops or rubs. Pulm: Lung sounds diminished, no crackles or wheezing. Respiratory effort unlabored at rest. No conversational dyspnea. Abdominal: Positive bowel sounds. Soft, nontender, without masses or organomegaly. No guarding or rebound tenderness. Neuro: A&O x3. No focal neurological deficits. Results & Data Results & Data Vital Signs (Past 12 Hours) Vital Signs Temp Pulse Resp BP Pulse Ox O2 Del Method O2 Flow Rate 09/07/23 16:19 36.6 C 67 18 107/67 97 09/07/23 07:45 Nasal Cannula 6 Laboratory Results Reviewed urine culture: Final results show mixed probable skin bhumi. No further identifications or sensitivities to follow. PG Care Time/CCT Total # of Minutes Spent Total Time Spent with Patient: Total time spent is greater than 50% in coordination of care (as documented) at patient's floor/unit and/or counseling patient: Coding Level of Care Code 91803 SUB INP/OBS CARE MIN Diagnoses Primary small cell malignant neoplasm of lung, stage 4 C34.90 Fracture of pubis without disruption of pelvic ring S32.509A Acute and chronic respiratory failure with hypoxia J96.21 UTI (urinary tract infection) N39.0 Pneumonia J18.9 Laterality: unspecified laterality Lung location: unspecified part of lung Pneumonia type: due to unspecified organism Megaloblastic anemia D53.1 Paroxysmal atrial fibrillation I48.0 Tobacco abuse Z72.0 Polymyalgia rheumatica M35.3 Pulmonary cachexia due to chronic obstructive pulmonary disease R64; J44.9 (HFpEF) heart failure with preserved ejection fraction I50.30 (5) Pneumonia Laterality: unspecified laterality Lung location: unspecified part of lung Pneumonia type: due to unspecified organism Qualified Code(s): J18.9 - Pneumonia, unspecified organism
[2023-09-07] MEDS: BUDESONIDE INH SCH (23:41)
[2023-09-07] MEDS: FORMOTEROL INH SCH (23:41)
[2023-09-07] MEDS: GLYCOPYR INH SCH (23:41)
[2023-09-08] MEDS: SENNA 8.6 MG PO PRN (08:08)
--- NOTE | 2023-09-08 10:18 | Hospitalist Progress Note ---
Date of Service September 08, 2023 Assessment & Plan (1) Primary small cell malignant neoplasm of lung, stage 4: Plan: Patient admitted with SOB and left pubic ramus fracture after a fall, with acute on chronic respiratory failure, and hypotension, decision made to pursue DIRECTOR [employer] STUDENT LIFE on admission However, since that time she has recovered and is alert, awake, oriented x 3, still with pain in hip but hesitant to take opioids as does not like to feel groggy Palliative medicine consult appreciated Has decided to pursue short term rehab stay with goal of not returning to the hospital if she declines again in the future -- Plan for discharge to [facility] for acute rehab on 09/09/23. Morphine prn SOB, pain Ativan prn insomnia or anxiety No further cancer treatments planned (2) Fracture of pubis without disruption of pelvic ring: Plan: Patient sustained ground-level fall at 0500 on 08/22 Struck left hip and left neck; no head strike; no LOC; on Xarelto Patient was not using walker/cane at the time Head/cervical spine CT revealed no acute findings Hip and pelvic x-ray revealed acute nondisplaced left pubic ring fracture She has a pubic ramus fracture so may weight-bear as tolerated with assistance Continue pain control with IV morphine and prn tylenol. She does not want the scheduled morphine so have since changed order to prn only (3) Acute and chronic respiratory failure with hypoxia: Plan: Comfort care, oxygen as needed for comfort May treat dyspnea with morphine if needed (4) UTI (urinary tract infection): Plan: felt dysuria on 09/03 Armstrong removed, UA abnormal ,Ur cx mixed bhumi started ceftriaxone 1000mg IV daily and completed 3 day course (5) Pneumonia: Plan: Comfort care, not on antibiotics has had numerous admissions for recurrent suspected PNA (6) Megaloblastic anemia: Plan: Comfort care no labs dc folate (7) Paroxysmal atrial fibrillation: Plan: Not in A-fib on arrival Discontinued metoprolol, amiodarone and Xarelto Comfort care (8) Tobacco abuse: Plan: History of tobacco use; quit 1 year ago (9) Polymyalgia rheumatica: Plan: Patient is normally on prednisone 10 mg daily-continue Mildly hypotensive in the ED, which normalized after stress dosed steroids Comfort care (10) Pulmonary cachexia due to chronic obstructive pulmonary disease: Plan: noted (11) (HFpEF) heart failure with preserved ejection fraction: Plan: noted not on diuretics, no evidence of respiratory distress Xfwtuvftztff-jyqqkelj-hlo large BM 09/03 after no BM in previous 12 days--> has a long h/o constipation and now on morphine--> continue current bowel regimen. Plan Waiting for bed availability at [facility] for acute rehab stay and transition to hospice if patient declines further. Discussed dispo planning with case management - plan for DC to [facility] tomorrow, 09/09/23. Converted IV Ativan and morphine to PO Ativan and PO oxycodone as patient is now tolerating oral meds without issue. DVT proph-none on DIRECTOR [employer]UDENT [employer] CODE STATUS: DNR/DNI Admission and Anticipated Discharge Date Admission Date: August 23, 2023 Subjective Patient seen and evaluated at bedside. She reports that she had a bowel movement last night and feels better since then. She notes that otherwise she feels like her baseline. She has no complaints at this time. Plan for discharge to [facility] tomorrow, 09/09/23. Physical Exam Physical Exam: General: No acute distress, nondiaphoretic. Chronically ill-appearing. Bitemporal wasting. Generalized weakness. Skin: The skin was without rashes, erythema, edema, or bruising. Cardiac: Regular rate and rhythm without murmurs gallops or rubs. Pulm: Lung sounds diminished, no crackles or wheezing. Respiratory effort unlabored at rest. No conversational dyspnea. Abdominal: Positive bowel sounds. Soft, nontender, without masses or organomegaly. No guarding or rebound tenderness. Neuro: A&O x3. No focal neurological deficits. Results & Data Results & Data Vital Signs (Past 12 Hours) Vital Signs O2 Del Method O2 Flow Rate 09/08/23 09:04 Nasal Cannula 6 PG Care Time/CCT Total # of Minutes Spent Total Time Spent with Patient: Total time spent is greater than 50% in coordination of care (as documented) at patient's floor/unit and/or counseling patient: Coding Level of Care Code 76407 SUB INP/OBS CARE 2/35MIN Diagnoses Primary small cell malignant neoplasm of lung, stage 4 C34.90 Fracture of pubis without disruption of pelvic ring S32.509A Acute and chronic respiratory failure with hypoxia J96.21 UTI (urinary tract infection) N39.0 Pneumonia J18.9 Laterality: unspecified laterality Lung location: unspecified part of lung Pneumonia type: due to unspecified organism Megaloblastic anemia D53.1 Paroxysmal atrial fibrillation I48.0 Tobacco abuse Z72.0 Polymyalgia rheumatica M35.3 Pulmonary cachexia due to chronic obstructive pulmonary disease R64; J44.9 (HFpEF) heart failure with preserved ejection fraction I50.30 (5) Pneumonia Laterality: unspecified laterality Lung location: unspecified part of lung Pneumonia type: due to unspecified organism Qualified Code(s): J18.9 - Pneumonia, unspecified organism
[2023-09-08] MEDS: LORazepam 0.5 MG TAB PO PRN (11:34)
[2023-09-08] MEDS ORDERED: oxyCODONE HCL IR 5 MG TAB (IMMEDIATE RELEASE) PO PRN (16:57)
[2023-09-09 11:07] VITALS: PULSE 98
--- NOTE | 2023-09-09 15:05 | Discharge Summary ---
Discharge Summary Date of Service September 09, 2023 Notes For Next Care Provider Patient elected for comfort measures only during this hospitalization. Discharged to [facility], then plan for hospice. Medication Changes From Visit Given the patient has elected for comfort measures only, a lot of her medications have been DISCONTINUED including metoprolol, amiodarone, Xarelto, furosemide, omeprazole, and vibegron. Lorazepam has been ordered for anxiety and insomnia. Oxycodone has been ordered for pain. Patient has been tolerating oral meds without issue. Admission HPI Per Admitting Provider Carla is a 77-year-old female with PMH of primary small cell lung cancer stage IV with mets to liver, paroxysmal A-fib (on Xarelto), HTN, urinary continence, BMI, GERD, HFpEF, T2DM, tobacco use, and COPD. She presented via EMS for worsening SOB and a mechanical fall from standing position on 08/22. Patient reports that she fell around 5 AM, and was not using any ambulatory assist devices at the time (such as a walker or cane). Patient's daughter/POA (Mei) is at the bedside and provides additional history. Believes that she might of been groggy from sleep. The patient fell and hit her left hip and left lower neck; no head strike. She denies feeling dizzy/lightheadedness prior to fall. No tripping. No LOC. Patient is on Xarelto for A-fib. Her last fall prior to this was over a year ago. Daughter believes she might of been unsteady due to her several recent bouts of pneumonia. On arrival, patient endorses 8/10 left hip pain. She describes it as sharp, stabbing, and constant. Worse with movement. She did not take any pain medications before coming in. The only medication she has had today are amiodarone, Gemtesa, Mucinex DM, and Lasix 20 mg. No recent change in medications besides starting Lasix for fluid overload in her heart/lungs/legs. Patient normally takes her Xarelto in the afternoons and has not had it today yet. Patient notes that she is currently following with palliative care for her lung cancer. She endorses SOB both at rest and with exertion, but is mainly worse with exertion. She notes that anxiety induces her breathing problems, and they are worse when she is hyperventilating. Breathing is also worse when she lies flat on her back. No history of MIs. Patient uses supplemental oxygen at baseline; 2 LNC at home. However, she has been requiring 34 L because of worsening breathing the past few days. Patient is a former tobacco cigarette smoker, but quit 1 year ago. No recent alcohol use. Patient is at SpO2 92% on 4L NC. ED course: Rocephin 2000 g IV Doxycycline 100 mg IV ROS: Patient endorses wet cough (not productive as she can't bring it up), pain in left hip, SOB at rest, with exertion, and when lying flat. Patient denies fever, chills, night-sweats, dizziness, lightheadedness, VALLECILLO, changes in vision, chest pain, pain/pressure in the left shoulder/arm/jaw, chest palpitations, pleuritic CP, hemoptysis, abdominal pain, N/V/D, changes in urinary/bowel habits, burning with urination, blood in the urine/stool, or numbness/tingling in the left leg or arms. Note: please see Dr. Lockwood's attestation for additional changes to HPI / treatment plan. Admission Exam Per Admitting Provider General: no acute distress; pleasant affect; nontoxic appearing; cachectic; cooperative; SpO2 94% on 4 LNC HEENT: Purple bruising under the left jaw; no scleral icterus; PERRLA; moist muc us membrane; vision intact; hard of hearing Neck: supple; no lymphadenopathy; trachea midline; patient demonstrates ability to shrug shoulders against resistance and rotate neck without pain Skin: warm, dry without signs of tenting; no cyanosis; no rashes, bruising, lesions, or erythema noted CV: Port in left upper chest wall without signs of infection, erythema, or drainage; chest wall NTP; RRR; S1/S2 normal; no murmurs/rubs/gallops; pulses intact and symmetric at radial, DP, and PT Lungs: no acute respiratory distress; symmetrical chest wall expansion; diminished breath sounds across all lung hernandez bilaterally, but mild wheezing in the YUMI ABD: Soft, NTP; BS present; no rebound/guarding; no distention MSK: Left hip NTP; pain to palpation of left pubic bones; no tics or fasciculations; +2 pitting edema in the LEs bilaterally, nonerythematous; patient demonstrates ability to wiggle toes, but is unable to plantarflex or dorsiflex left ankle due to pain Neuro: A&Ox3; normal mood and affect; fluent speech; no focal deficits; sensation grossly intact in the LEs b/l assessed via light touch at the feet and calves Principal Dx & Hospital Course #1 = Principal Diagnosis (1) Primary small cell malignant neoplasm of lung, stage 4: Patient admitted with SOB and left pubic ramus fracture after a fall, with acute on chronic respiratory failure, and hypotension, decision made to pursue REPAIRER WELDING EQUIPMENT on admission However, since that time she has recovered and is alert, awake, oriented x 3, still with pain in hip but hesitant to take opioids as does not like to feel groggy No further cancer treatments planned Has decided to pursue short term rehab stay with goal of not returning to the hospital if she declines again in the future -- Discharged to [facility] for acute rehab on 09/09/23. (2) Fracture of pubis without disruption of pelvic ring: Patient sustained ground-level fall at 0500 on 08/22 Struck left hip and left neck; no head strike; no LOC; on Xarelto Patient was not using walker/cane at the time Head/cervical spine CT revealed no acute findings Hip and pelvic x-ray revealed acute nondisplaced left pubic ring fracture She has a pubic ramus fracture so may weight-bear as tolerated with assistance (3) Acute and chronic respiratory failure with hypoxia: Comfort care, oxygen as needed for comfort May treat dyspnea with morphine if needed (4) UTI (urinary tract infection): felt dysuria on 09/03 Armstrong removed, UA abnormal ,Ur cx mixed bhumi started ceftriaxone 1000mg IV daily and completed 3 day course (5) Pneumonia: Comfort care, not on antibiotics has had numerous admissions for recurrent suspected PNA (6) Megaloblastic anemia: Comfort care no labs dc folate (7) Paroxysmal atrial fibrillation: Not in A-fib on arrival Discontinued metoprolol, amiodarone and Xarelto Comfort care (8) Tobacco abuse: History of tobacco use; quit 1 year ago (9) Polymyalgia rheumatica: Patient is normally on prednisone 10 mg daily-continue Mildly hypotensive in the ED, which normalized after stress dosed steroids Comfort care (10) Pulmonary cachexia due to chronic obstructive pulmonary disease: noted (11) (HFpEF) heart failure with preserved ejection fraction: noted not on diuretics, no evidence of respiratory distress Ceaajxwwfpqz-llgctdhq-pcq large BM 5/ after no BM in previous 12 days--> has a long h/o constipation and now on morphine--> continue current bowel regimen. Plan Discharged to [facility]. Patient is comfort measures only CODE STATUS: DNR/DNI Discharge Exam General: No acute distress, nondiaphoretic. Chronically ill-appearing. Bitemporal wasting. Generalized weakness. Skin: The skin was without rashes, erythema, edema, or bruising. Cardiac: Regular rate and rhythm without murmurs gallops or rubs. Pulm: Lung sounds diminished, no crackles or wheezing. Respiratory effort unlabored at rest. No conversational dyspnea. Abdominal: Positive bowel sounds. Soft, nontender, without masses or organomegaly. No guarding or rebound tenderness. Neuro: A&O x3. No focal neurological deficits. Updated Medication List Medication Instructions Recorded Confirmed Type nebulizers #1 ea 12/05/21 08/07/23 Rx docusate sodium 100 mg capsule 100 mg PO BID Constipation 01/03/23 08/23/23 History (Colace) polyethylene glycol 3350 17 17 g PO DAILY PRN Constipation 01/03/23 08/23/23 History gram/dose oral powder (Miralax) ondansetron HCl 8 mg tablet 8 mg PO Q8H PRN Nausea 01/22/23 08/23/23 History lidocaine 5 % topical patch 0 patch transdermal Q24H PRN Other 02/28/23 08/23/23 History diazepam 2 mg tablet 2 mg PO BID PRN sedation #60 tabs 03/09/23 08/23/23 Rx acetaminophen 500 mg tablet 1,000 mg PO .BID-TID 06/11/23 08/23/23 History (Tylenol Extra Strength) ipratropium 0.5 mg-albuterol 3 mg 3 ml inhalation Q6 PRN Shortness 06/11/23 08/23/23 History (2.5 mg base)/3 mL nebulization Of Breath Or Wheezing soln melatonin 10 mg tablet 10 mg PO HS 06/11/23 08/23/23 History olanzapine 5 mg tablet 5 mg PO QPM #30 tabs 06/27/23 08/23/23 Rx prednisone 10 mg tablet 10 mg PO DAILY #30 tabs 06/28/23 08/23/23 Rx sertraline 100 mg tablet 100 mg PO DAILY #90 tabs 07/09/23 08/23/23 Rx sertraline 25 mg tablet 25 mg PO HS #90 tabs 07/09/23 08/23/23 Rx budesonide 160 mcg-glycopyr 9 2 inh inhalation BID #10.7 grams 07/20/23 08/23/23 Rx mcg-formot 4.8 mcg/actuation HFA inhaler (Breztri Aerosphere) senokot gummies 8.6 mg PO UD PRN Constipation 08/02/23 08/23/23 History trazodone 50 mg tablet 100 mg (2 x 50 mg) PO HS #180 tabs 08/15/23 08/23/23 Rx lorazepam 0.5 mg tablet 0.5 mg PO Q2HWA PRN anxiety, 09/09/23 Rx insomnia #30 tabs oxycodone 5 mg tablet 5 mg PO Q6H PRN pain #30 tabs 09/09/23 Rx Hospital Stay Data Consultations 08/23/23 10:30 ED Decision to Admit Stat 08/23/23 12:58 Consult Oncology Routine 08/23/23 14:32 Consult Palliative Care Routine Diagnostic Imagining Performed 08/23/23 09:11 CT cervical spine wo con Stat CT head/brain wo con Stat Pending Results Patient Have Any Pending Studies at Discharge: No Discharge Instructions Given to Patient (Per Discharging Provider) FOR [facility]RE CARE: Mrs. Ward was admitted to the hospital with shortness of breath (secondary to primary small cell lung cancer, stage IV) and nondisplaced left pubic ramus fracture after a ground-level fall, with acute on chronic respiratory failure and hypotension. A decision was made to pursue comfort measures only (REPA[employer] WELDING EQUIPMENT) on admission. However, since the time of admission, she has recovered and is alert, awake, oriented x 3, still with hip pain but hesitant to take opioids as she does not like to feel groggy. The patient and her family decided to pursue short-term rehab with the goal of not returning to the hospital if she declines again in the future. Given the patient has elected for comfort measures only, a lot of her medications have been DISCONTINUED including metoprolol, amiodarone, Xarelto, furosemide, omeprazole, and vibegron. Lorazepam has been ordered for anxiety and insomnia. Oxycodone has been ordered for pain. Patient has been tolerating oral meds without issue. Thank you, Michelle Almonte PA-C Total Time Total Time Spent Total Time Spent (In Minutes): Greater than 30 minutes spent completing this discharge process including direct patient care, medication reconciliation, documentation, review of labs and images, and coordination of care. Coding Level of Care Code 33577 INP/OBS DISCH >30 MIN Diagnoses Primary small cell malignant neoplasm of lung, stage 4 C34.90 Fracture of pubis without disruption of pelvic ring S32.509A Acute and chronic respiratory failure with hypoxia J96.21 UTI (urinary tract infection) N39.0 Pneumonia J18.9 Laterality: unspecified laterality Lung location: unspecified part of lung Pneumonia type: due to unspecified organism Megaloblastic anemia D53.1 Paroxysmal atrial fibrillation I48.0 Tobacco abuse Z72.0 Polymyalgia rheumatica M35.3 Pulmonary cachexia due to chronic obstructive pulmonary disease R64; J44.9 (HFpEF) heart failure with preserved ejection fraction I50.30
== END 2023-09-09 15:42 | DRG 193 ==
LOC: ED 08:49 → EDINP 11:37 → SUATTDRO 11:37 → 3W 15:43